=== PATIENT | female | born 1955 | race African-American/Black ===

== ENCOUNTER 2016-06-21 13:58 | Inpatient (IN) | payer BC ==
[~2016-06-21] VITALS: Ht 160 cm; Wt 96.9 kg
[~2016-06-21 13:58] MED LIST: ACET-1175 PO; CHOL1CAP57 PO; INSUINJ4 SQ; IPRA1AER2 INH; LEVE500T PO; LITH300T PO; LSN5 PO; LSX80 PO; MAGN400T6 PO; MCRK20 PO; METO5TAB25 PO; NVLGI SQ
[2016-06-21] MEDS ORDERED: SODIUM CHLORIDE 0.9% 1000ML 1,000 ML IV SCH (14:30)
[2016-06-21 15:13] LABS: ALLEN TEST POS (POS); ARTERIAL BLD GAS O2 SATURATION 91.9 % (90-95); ARTERIAL BLOOD GAS BASE EXCESS 13.4 mEq/L (-9-1.8); ARTERIAL BLOOD GAS HCO3 44 mmol/L (19-24); ARTERIAL BLOOD GAS PO2 71 mmHg (80-95); O2 ADMINISTRATION 2L O2
[2016-06-21] MEDS ORDERED: POLYETHYLENE (MIRALAX) 17 GM PACK PO PRN (15:45)
[2016-06-21] MEDS ORDERED: GLUCOSE 40% GEL 15 GM TUBE PO PRN (15:45)
[2016-06-21] MEDS ORDERED: GLUCOSE 10 TABS/TUBE PO PRN (15:45)
[2016-06-21] MEDS ORDERED: ONDANSETRON INJ 2 MG/ML 2 ML VIAL IV PRN (15:45)
[2016-06-21] MEDS ORDERED: ALUMINUM/MAGNESIUM/SIMETH (MAALOX MAX) 30 ML UDC PO PRN (15:45)
[2016-06-21] MEDS ORDERED: DEXTROSE 50% 50 ML SYR IV PRN (15:45)
[2016-06-21] MEDS ORDERED: GLUCAGON FOR INJ 1 MG VIAL SQ PRN (15:45)
[2016-06-21] MEDS ORDERED: BENZ1CAP90 PO (15:45)
[2016-06-21] MEDS ORDERED: MAGNESIUM HYDROXIDE SUSP 30 ML UDC PO PRN (15:45)
[2016-06-21 15:56] LABS: BASO % 0.2 %; BASO ABS # 0.01 K/uL (0-0.2); COMPLETE YES; EOS % 0.8 %; HEMATOCRIT 42.3 % (37-47); LYMPH % 18.9 %; LYMPH ABS # 1.25 K/uL (1.2-3.4); MEAN CELL VOLUME 90.6 fL (80-100); MEAN CORPUSCULAR HEMOGLOBIN 26.3 pg (25-34); MEAN CORPUSCULAR HGB CONC 29.1 g/dl (32-36); MEAN PLATELET VOLUME 9.9 fL (7.4-10.4); MONO % 8.9 %; NEUT % 71.2 %; PLATELET COUNT 194 K/uL (130-400); RED BLOOD COUNT 4.67 M/uL (4.2-5.4); WHITE BLOOD COUNT 6.62 K/uL (4.8-10.8)
[2016-06-21] MEDS: INSULIN ASPART 100 UNITS/ML 3 ML PEN SC SCH ×2 (16:00→21:00)
[2016-06-21 16:06] LABS: PROTHROMBIN TIME (PATIENT) 11.2 SECONDS (9.0-12.0)
[2016-06-21 16:15] LABS: BUN/CREATININE RATIO 11.3 (10-20); CALCIUM 9.5 mg/dl (8.5-10.1); CREATININE 0.77 mg/dl (0.60-1.20); MAGNESIUM 2.4 mg/dl (1.8-2.4); POTASSIUM 4.7 mmol/L (3.5-5.1)
--- NOTE | 2016-06-21 16:20 | DIAGNOSTIC IMAGING REPORT ---
CHEST ONE VIEW PORTABLE HISTORY: Short of breath. heart failure COMPARISON: Chest 02/05/2016. FINDINGS: The heart remains moderately enlarged. There is interstitial and basilar thickening consistent with mild pulmonary congestion. No pleural effusions. No pneumothorax. IMPRESSION: Similar cardiomegaly and mild pulmonary congestion. Electronically signed by: Alfonso Perez M.D. 06/21/2016 4:17 PM Dictated Date/Time: 06/21/2016 4:16 PM
[2016-06-21 16:25] LABS: ALB/GLOB RATIO 0.7 (0.9-2); THYROID STIMULATING HORMONE 1.08 uIu/ml (0.300-4.500)
--- NOTE | 2016-06-21 17:16 | History and Physical ---
History & Physical Date & Time of Service: Jun 21, 2016 at 16:36 Chief Complaint: Lethargic/Cough/Nasal Congestion Primary Care Physician: Bin Patel M.D. History of Present Illness Source: patient, spouse, clinic records, hospital records, other (Dr. Mills-- java support engineer) This is a 61 y/o female with a history of CHF, respiratory failure, DM II, HTN, seizure disorder, and bipolar disorder who presented for a direct admission on with cough, lethargy, weakness and confusion. At the time of my examination , the patient was coughing and so much mucous secretions that she was not able to converse with me. History obtained largely through her , who was at bedside, as well as Dr. Mills who was briefly at bedside. The patient had been experiencing a cough for the last several weeks. The took her to her PCP who prescribed cough medicine, but the patient did want to take it. The coughing got worse, prompting another visit late last week where the patient finally agreed to take the medicine. The cough started out non-productive but has become productive in the last few days with thick, yellow sputum. In the last few days, the patient began to rapidly decline with weakness, nasal congestion, myalgias, decreased appetite and shaking in her hands, L>R. Last night the patient began to become more confused and lethargic. Her believes that she felt feverish and had chills as well. The patient does use supplemental oxygen at home, 2L NC continuous. She previously had CPAP for nighttime, but she stopped using it a few months ago and now only wears the NC to bed. Her denies any sweats, chest pain, wheezing, shortness of breath, nausea, vomiting, abdominal pain, dysuria, hematuria, paralysis, numbness and tingling. Past Medical/Surgical History Medical Problems: (1) ACUTE RENAL FAILURE NOS Status: Resolved (2) BIPOL I DIS, SING MANIC EPIS, SEVERE, SPEC W PSYCHOTIC BEHAV Status: Chronic (3) CONGESTIVE HEART FAILURE NOS Status: Chronic (4) DIAB ROSA WO COMPL, TYPE II OR UNSPEC TYPE, NOT UNCNTRLD Status: Chronic HTN Seizure disorder Family History FH: HTN (hypertension) FH: diabetes mellitus Heart disease Social History Smoking Status: Never Smoker Smokeless Tobacco Use: No Alcohol Use: none Drug Use: none Marital Status: Housing status: lives with significant other Occupational Status: retired Immunizations History of Influenza Vaccine: Unknown Influenza Vaccine Date: Sep 27, 2009 History of Tetanus Vaccine?: Unknown History of Pneumococcal: No Pneumococcal Date: Jun 28, 2007 History of Hepatitis B Vaccine: Unknown Multi-Drug Resistant 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, MRSA Allergies Coded Allergies: No Known Allergies (Verified , `, 06/21/16) Home Medications Scheduled Benzonatate (Tessalon Perles), 200 MG PO Q8 Cholecalciferol (Vitamin D3), 1,000 INTER.UNIT PO QAM Furosemide (Furosemide), 80 MG PO BID Insulin Aspart (Novolog), 10 UNITS SQ UD Insulin Glargine (Lantus Solostar Pen), 15 UNIT SQ HS Ipratropium-Albuterol (Combivent Respimat), 1 PUFFS INH QID Levetiractam (Levetiracetam), 500 MG PO BID Lisinopril (Lisinopril), 5 MG PO QAM [place] Carbonate (Lithobid Ext Rel), 600 MG PO HS Magnesium Oxide (Mag-Ox), 400 MG PO QAM Metolazone (Zaroxolyn), 5 MG PO DAILY Potassium Chloride (Klor-Con M20), 60 MEQ PO UD Scheduled PRN Acetaminophen (Tylenol), 650 MG PO Q4 PRN for Pain or Fever Review of Systems Constitutional: + chills, + fatigue, + fever (subjective as per ), + problem reported (decreased appetite), + weakness, No sweats Eyes: No diplopia, No eye pain, No worsening of vision ENT: No hearing loss, No sore throat, No trouble swallowing Respiratory: + cough, + sputum (yellow), No shortness of breath, No wheezing Cardiovascular: + PND, + edema, + orthopnea, No chest pain Abdomen: No nausea, No pain, No vomiting Musculoskeletal: + muscle pain, No calf pain, No joint pain Genitourinary - Female: No dysuria, No hematuria, No urinary retention Neurologic: + problem reported (shaking in hands L>R), No numbness/tingling, No paralysis, No weakness Integumentary: No color change, No itch, No rash Physical Exam Vital Signs Date Time Temp Pulse Resp B/P Pulse Ox O2 Delivery O2 Flow Rate FiO2 06/21/16 16:23 37.0 89 21 113/72 96 3.0 06/21/16 14:36 36.7 93 18 126/73 95 Nasal Cannula 3.0 06/21/16 14:09 98 General Appearance: WD/WN, + mild distress (continuously coughing, drooling copious secretions, appears lethargic), + obese Head: normocephalic, atraumatic Eyes: normal inspection, PERRL, + abnormal sclerae exam (bloodshot) ENT: normal ENT inspection, hearing grossly normal, + pertinent finding ( macroglossia, copious secretions) Neck: supple, no JVD, trachea midline Respiratory/Chest: lungs clear, normal breath sounds, no respiratory distress, + decreased breath sounds, + pertinent finding (exam limited as pt would not take deep breaths, loud mouth breathing) Cardiovascular: regular rate, rhythm, no gallop, no murmur Abdomen/GI: normal bowel sounds, non tender, soft, + hernia (umbilical) Extremities/Musculoskelatal: normal inspection, no calf tenderness, + swelling (1+ pitting edema) Neurologic/Psych: alert (awake but appears lethargic), + pertinent finding ( could not assess mood or orientation as pt could not speak during examination; mild tremor in hands) Skin: normal color, warm/dry, no rash Diagnostics Laboratory Results Results Past 24 Hours Test 06/21/16 14:12 06/21/16 14:21 06/21/16 14:50 06/21/16 15:32 Range/Units Arterial Blood pH 7.30 7.35-7.45 Arterial Blood Partial Pressure CO2 91 35-46 mmHg Arterial Blood Partial Pressure O2 71 80-95 mmHg Arterial Blood HCO3 44 19-24 mmol/L Arterial Blood Oxygen Saturation 91.9 90-95 % Arterial Blood Base Excess 13.4 -9-1.8 mEq/L Arterial Blood Gas Delivery 2L O2 [place] Test POS POS White Blood Count 6.62 4.8-10.8 K/uL Red Blood Count 4.67 4.2-5.4 M/uL Hemoglobin 12.3 12.0-16.0 g/dL Hematocrit 42.3 37-47 % Mean Corpuscular Volume 90.6 80-100 fL Mean Corpuscular Hemoglobin 26.3 25-34 pg Mean Corpuscular Hemoglobin Concent 29.1 32-36 g/dl Platelet Count 194 130-400 K/uL Mean Platelet Volume 9.9 7.4-10.4 fL Neutrophils (%) (Auto) 71.2 % Lymphocytes (%) (Auto) 18.9 % Monocytes (%) (Auto) 8.9 % Eosinophils (%) (Auto) 0.8 % Basophils (%) (Auto) 0.2 % Neutrophils # (Auto) 4.72 1.4-6.5 K/uL Lymphocytes # (Auto) 1.25 1.2-3.4 K/uL Monocytes # (Auto) 0.59 0.11-0.59 K/uL Eosinophils # (Auto) 0.05 0-0.5 K/uL Basophils # (Auto) 0.01 0-0.2 K/uL RDW Standard Deviation 55.6 36.4-46.3 fL RDW Coefficient of Variation 16.8 11.5-14.5 % Immature Granulocyte % (Auto) 0.0 % Immature Granulocyte # (Auto) 0.00 0.00-0.02 K/uL Prothrombin Time 11.2 9.0-12.0 SECONDS Prothromb Time International Ratio 1.0 0.9-1.1 Activated Partial Thromboplast Time 27.2 21.0-31.0 SECONDS Partial Thromboplastin Ratio 1.0 Sodium Level 133 136-145 mmol/L Potassium Level 4.7 3.5-5.1 mmol/L Chloride Level 89 98-107 mmol/L Carbon Dioxide Level 39 21-32 mmol/L Anion Gap 5.0 3-11 mmol/L Blood Urea Nitrogen 9 7-18 mg/dl Creatinine 0.77 0.60-1.20 mg/dl Est Creatinine Clear Calc Drug Dose 86.3 ml/min Estimated GFR () 96.6 Estimated GFR (Non- 83.3 BUN/Creatinine Ratio 11.3 10-20 Random Glucose 141 70-99 mg/dl Calcium Level 9.5 8.5-10.1 mg/dl Magnesium Level 2.4 1.8-2.4 mg/dl Total Bilirubin 0.5 0.2-1 mg/dl Aspartate Amino Transf (AST/SGOT) 45 15-37 U/L Alanine Aminotransferase (ALT/SGPT) 27 12-78 U/L Alkaline Phosphatase 119 45-117 U/L Troponin I 0.030 0-0.045 ng/ml Total Protein 7.8 6.4-8.2 gm/dl Albumin 3.3 3.4-5.0 gm/dl Globulin 4.5 2.5-4.0 gm/dl Albumin/Globulin Ratio 0.7 0.9-2 Thyroid Stimulating Hormone (TSH) 1.080 0.300-4.500 uIu/ml [place] Level 0.9 0.6-1.2 mMOL/L Microbiology Results 06/21/16 Blood Culture, Received Pending 06/21/16 Blood Culture, Received Pending Diagnostic Radiology Reviewed the following studies and agree with interpretation as follows: Patient Name: CHARITY BARRIOS Unit Number: [id number] Dictated: 06/21/161615 Transcribed: 06/21/161615 [facility] Printed Date/Time: [~ rep prt dt]/[~ rep prt tm] [~ rep ct labl] - [~ rep ct ivnm] [facility] Radiology Department [place] [id number] Dictated: 06/21/161615 Transcribed: 06/21/161615 [facility] Printed Date/Time: [~ rep prt dt]/[~ rep prt tm] [~ rep ct labl] - [~ rep ct ivnm] Patient: CHARITY BARRIOS Address1: [address] [place] [address] Rec: [id number] Address2: [place] [address] Acct ID: [id number] [facility] Zip: [place] [address] Date: 1955 Sex: F Room/Bed: Ref Phy: Bin Patel M.D. SC: MINAL Mendoza Phy: Report #: [id number] [place] Phy: Bin Patel M.D. Test: CXR1P Admit Phy: Wind Turbine Mechanical Engineer: FABIOLA Interpreting Phy: Alfonso Perez MD Diagnosis: LETHARGIC/COUGH/NASAL CONGESTION Ordering Phy: Ilan Mills DO Service Date: 06/21/16 Admit Date: 06/21/16 MNE: [id number] CONF: DICTATED BY: Alfonso Perez M.D.]] CC: Bin Patel M.D. Lesko, Michael G., DO No Doctor, Assigned Endcc: [~ rep ct add3]] CHEST ONE VIEW PORTABLE HISTORY: Short of breath. heart failure COMPARISON: Chest 02/05/2016. FINDINGS: The heart remains moderately enlarged. There is interstitial and basilar thickening consistent with mild pulmonary congestion. No pleural effusions. No pneumothorax. IMPRESSION: Similar cardiomegaly and mild pulmonary congestion. Electronically signed by: Alfonso Perez M.D. 06/21/2016 4:17 PM Dictated Date/Time: 06/21/2016 4:16 PM The status of this report is Signed. Draft = Not yet reviewed or approved by Radiologist. Signed = Reviewed and approved by Radiologist. <AttendingPhy></AttendingPhy> <FamilyPhy>Bin Patel M.D.</FamilyPhy> < PrimaryPhy>Bin Patel M.D.</PrimaryPhy> <UnitNumber>[id number]</ UnitNumber> <VisitNumber>[id number]</VisitNumber> <PatientName>CHARITY BARRIOS </PatientName> <DateOfBirth>1955</DateOfBirth> <Location>[facility]</Location> <ServiceDate>06/21/16</ServiceDate> <MNE>ESINDI</MNE> <OrderingPhy>Ilan Mills DO</OrderingPhy> <OrderingPhyMNE>f rep ord dr edward</OrderingPhyMNE> < DictatingPhyMNE>f rep dict dr edward</DictatingPhyMNE> <CCListMNE>f rep ct mne</ CCListMNE> <AdmittingPhyMNE>f pt admit dr edward</AdmittingPhyMNE> <AttendingPhyMNE >f pt attend dr edward</AttendingPhyMNE> <ConsultingPhyMNE>f pt consult dr edward</ConsultingPhyMNE> <FamilyPhyMNE>f pt fam dr edward</FamilyPhyMNE> <OtherPhyMNE>f pt other dr edward</OtherPhyMNE> < PrimaryPhyMNE>f pt prim care dr edward</PrimaryPhyMNE> <ReferringPhyMNE>f pt referring dr edward</ReferringPhyMNE> Impression Assessment and Plan 61 y/o female with a history of CHF, respiratory failure, DM II, HTN, seizure disorder, and bipolar disorder who presented for a direct admission on 06/21 with cough, lethargy, weakness and confusion. Cough for several weeks, productive with yellow sputum in last few days, myalgias. No shortness of breath. On 2L NC oxygen at home continuous. CXR mild pulmonary edema. ABG pH 7.3, pCO2 91, pO2 71, HCO3 44. -Admit to telemetry -Rapid flu -Lactic acid -Blood cultures pending -Check sputum culture -Rocephin 1 gm IV qd -Mucinex 600 mg PO BID -Incentive spirometry -Duonebs QIDR and q2h prn SOB/wheezing -CPAP ordered -Check BNP -EKG pending, repeat prn with chest pain Respiratory acidosis--pt has history of chronic respiratory failure with hypercapnia -Low threshold to switch to BIPAP, pt currently stable on NC -CPAP as above for nighttime CHF -Hold home PO Lasix -Lasix 60 mg IV BID -Continue metolazone 5 mg PO BID -Continue KCl supplements Diabetes mellitus type 2--Last HgbA1c 9.1 on 08/25/15 -Lantus 10 units SC qhs due to decreased appetite -Insulin sliding scale -Check BSGs q ac and qhs -Recheck HgbA1c in the am HTN--stable -Continue lisinopril 5 mg PO qd Seizure disorder -Continue Keppra 500 mg PO BID Bipolar disorder -Continue lithium 600 mg PO qhs GI prophylaxis -Maalox Max 15 mL PO q4h prn dyspepsia -Milk of magnesia 30 mL PO q6h prn constipation -Miralax 17 gm PO qd prn constipation -Zofran 4 mg IV q6h prn nausea DVT prophylaxis -Enoxaparin 40 mg SC q24h -JAYDON smith and ANAHIs Code Status -Level I, FULL RESUSCITATION STATUS I agree with PA assessment and plan and have personally seen and examined pt myself Agree with ROS, PE findings Pt reports with persistent productive cough ABG with elev CO2 Lungs Dec BS bilateral, scattered wheezes and rhonchi Cont antibx at this time, duonebs CXR mild congestion Agree with IV lasix Level of Care Telemetry Resuscitation Status FULL RESUSCITATION VTE Prophylaxis VTE Risk Assessment Done? Y/N: Yes Risk Level: Moderate Given or contraindicated: Enoxaparin (Lovenox)SQ, T.E.D. Stockings, SCD's
--- NOTE | 2016-06-21 17:32 | CARDIOLOGY CONSULTATION ---
DATE OF CONSULTATION: 06/21/2016 This is a consultation for the [facility] Hospitalist. REASON FOR CONSULTATION: Cor pulmonale. HISTORY OF PRESENT ILLNESS: The patient is a 61-year-old female who is well known to our service as well as the hospitalist service with multiple previous hospital admissions. She has a schizoaffective disorder and has been admitted multiple times due to mental status changes from hyponatremia to polydipsia and volume overload. I follow her through my clinic with a history of idiopathic pulmonary hypertension and cor pulmonale. She is also a diabetic. I last saw her in April when she was doing very well. According to her who is with her today, over the holiday she had become progressively lethargic and not doing well. She was seen by her primary care physician approximately 10 days ago who evaluated her and had no particular findings to treat. She continued to have mental status changes and was seen a few days ago once again with no clear etiology. She was brought to the hospital by her with ongoing mental status changes and lethargy. He stays she will not get out of bed. She has had no fever or chills. She does appear to be volume overloaded with puffiness around her eyes and face. In the past, compliance with medications has been a problem. She is also to be on CPAP at night and may not have been compliant. In the past, She has been hypercapnic. ALLERGIES: No known medical allergies. PAST MEDICAL HISTORY: The patient has schizoaffective disorder. As outlined above, the patient has a history of idiopathic pulmonary hypertension with right-sided heart failure which results in massive volume overload. She has also had a history of polydipsia, which does not help this problem. She has had a history of hyponatremia with mental status changes. She is a diabetic and has a history of schizoaffective disorder. At times, she will stop or alter her medications which can cause hyperglycemia and mental status changes. SOCIAL HISTORY: She lives with her and family who are very supportive. She does not smoke. FAMILY MEDICAL HISTORY: Noncontributory. REVIEW OF SYSTEMS: A 10-point review of systems is negative except for the history of chief complaint. PHYSICAL EXAMINATION: GENERAL: She is alert and oriented to person. VITAL SIGNS: The patient is currently afebrile, blood pressure is 120/70, and pulse is regular at 93 beats per minute. HEENT: The patient has puffiness around her eyes. Mucous membranes are moist. NECK: The neck veins are flat. Carotids have good upstrokes bilaterally. Thyroid is nonpalpable. RESPIRATORY: Breath sounds are equal bilaterally. CARDIOVASCULAR: Heart has a regular rhythm. There is no S3 or S4. She is in a sinus rhythm on the telemetry. GASTROINTESTINAL: Abdomen soft, nontender, without organomegaly. EXTREMITIES: Free of edema, digit clubbing, or cyanosis. NEUROLOGIC: Grossly intact. SKIN: Warm to touch. LYMPH NODES: Negative to palpation. LABORATORY DATA: Pending. IMPRESSION: 1. Mental status changes. 2. Schizoaffective disorder. 3. History of hyponatremia due to polydipsia. 4. At times, medical noncompliance. 5. History of idiopathic pulmonary hypertension with right heart failure. 6. Diabetes mellitus. 7. History of Hypercapnia RECOMMENDATIONS: The patient will obviously need to be admitted to the hospital. From a cardiac standpoint, she is hemodynamically stable. Labs are pending and hopefully will be helpful in making a diagnosis. We will follow along with you during her hospital stay. SAIRA
[2016-06-21 18:15] VITALS: BP 131/82; PULSE 108; TEMP 37.4; O2SAT 97; Ht 160 cm; Wt 96.9 kg
[2016-06-21] MEDS: ALBUT/IPRATROP 3MG/0.5MG NEB 3 ML VIAL INH SCH (19:32)
[2016-06-21 19:37] VITALS: PULSE 99; O2SAT 94
[2016-06-21] MEDS: CEFTRIAXONE SOD INJ 1 GM in DEXTROSE 5% ADD-VANTAGE 50ML 50 ML IV SCH (19:40)
[2016-06-21] MEDS: ENOXAPARIN 40 MG/0.4 ML SYR SC SCH (19:40)
[2016-06-21 20:18] LABS: INFLUENZA A PCR Neg for Influ A (NEG); INFLUENZA B PCR Neg for Influ B (NEG)
[2016-06-21] MEDS ORDERED: LEVETIRACETAM 500 MG TAB PO SCH (21:00)
[2016-06-21] MEDS ORDERED: FUROSEMIDE 80 MG TAB PO SCH (21:00)
[2016-06-21] MEDS ORDERED: INSULIN GLARGINE SOLOSTAR 100 UNITS/ML 3 ML PEN SC SCH (21:00)
[2016-06-21] MEDS: FUROSEMIDE INJ 60 MG in SYRINGE 0 ML IV SCH (21:43)
[2016-06-21] MEDS: POTASSIUM CHLORIDE 20 MEQ TABCR PO SCH (21:44)
[2016-06-21] MEDS: LITHIUM CARBONATE SR 300 MG TAB (LITHOBID) PO SCH (21:45)
[2016-06-21] MEDS: GUAIFENESIN 600 MG TABCR PO SCH (21:45)
[2016-06-21 22:22] LABS: URINE APPEARANCE CLEAR (CLEAR); URINE BILIRUBIN NEG (NEG); URINE COLOR DK YELLOW; URINE EPITHELIAL CELL AUTO >30 /lpf (0-5); URINE NITRITE NEG (NEG); URINE SPECIFIC GRAVITY 1.018 (1.000-1.030); UROBILINOGEN NEG (NEG)
[2016-06-21 22:23] LABS: MANUAL MICROSCOPIC REQUIRED? NO; REVIEW REQ? NO
[2016-06-21 22:42] LABS: BENZODIAZEPINE, URINE NEG (NEG); COCAINE,URINE NEG (NEG); PHENCYCLIDINE, URINE NEG (NEG)
[2016-06-22] VITALS (13 sets, daily range): BP systolic 104–122; BP diastolic 65–74; PULSE 90–107; TEMP 37–38.5; O2SAT 85–98
[2016-06-22] MEDS: INSULIN ASPART 100 UNITS/ML 3 ML PEN SC SCH ×4 (07:00→21:13)
[2016-06-22] MEDS: ALBUT/IPRATROP 3MG/0.5MG NEB 3 ML VIAL INH SCH ×4 (07:03→19:10)
[2016-06-22 07:32] LABS: HEMATOCRIT 41.1 % (37-47); MEAN CELL VOLUME 92.6 fL (80-100); MEAN CORPUSCULAR HEMOGLOBIN 26.6 pg (25-34); MEAN CORPUSCULAR HGB CONC 28.7 g/dl (32-36); MEAN PLATELET VOLUME 10.4 fL (7.4-10.4); PLATELET COUNT 198 K/uL (130-400); RED BLOOD COUNT 4.44 M/uL (4.2-5.4); WHITE BLOOD COUNT 5.95 K/uL (4.8-10.8)
[2016-06-22] MEDS: FUROSEMIDE INJ 60 MG in SYRINGE 0 ML IV SCH ×2 (07:45→17:00)
[2016-06-22 07:56] LABS: BUN/CREATININE RATIO 14.9 (10-20); CALCIUM 9.6 mg/dl (8.5-10.1); CREATININE 0.81 mg/dl (0.60-1.20); POTASSIUM 3.9 mmol/L (3.5-5.1)
[2016-06-22] MEDS: GUAIFENESIN 600 MG TABCR PO SCH ×2 (08:35→21:00)
[2016-06-22] MEDS: METOLAZONE 5 MG TAB PO SCH (08:35)
[2016-06-22] MEDS: MAGNESIUM OXIDE 400 MG TAB PO SCH (08:35)
[2016-06-22] MEDS: LISINOPRIL 5 MG TAB PO SCH (08:35)
[2016-06-22] MEDS: POTASSIUM CHLORIDE 20 MEQ TABCR PO SCH ×2 (08:36→21:00)
[2016-06-22 09:08] LABS: ESTIMATED AVERAGE GLUCOSE 174 mg/dl; HA1C FLAG Normal (Normal)
[2016-06-22 09:15] LABS: ARTERIAL BLD GAS O2 SATURATION 95.5 % (90-95); ARTERIAL BLOOD GAS BASE EXCESS 15.2 mEq/L (-9-1.8); ARTERIAL BLOOD GAS HCO3 46 mmol/L (19-24); ARTERIAL BLOOD GAS PO2 93 mm/Hg (80-95); ARTERIAL BLOOD GAS pH 7.29 (7.35-7.45)
[2016-06-22 09:19] LABS: ALLEN TEST POS (POS); O2 ADMINISTRATION 6L
[2016-06-22] MEDS: LEVETIRACETAM IV 500 MG in DEXTROSE 5% 100ML 100 ML IV SCH ×2 (09:35→21:10)
--- NOTE | 2016-06-22 11:49 | Progress Note ---
Subjective Subjective Date of Service: Jun 22, 2016. Pt evaluation today including: conversation w/ patient, conversation w/ family ( at bedside), physical exam, chart review, review of studies, review of inpatient medication list Notes: RN reported that patient is lethargic this am, ROS cant be obtained Problem List Medical Problems: (1) Change in mental status Status: Acute (2) CHF (congestive heart failure) Status: Acute (3) CHF (congestive heart failure) Status: Acute (4) CO2 retention Status: Acute (5) Fall Status: Acute (6) Hyperglycemia Status: Acute (7) Hypokalemia Status: Acute (8) Hyponatremia Status: Acute (9) Hyponatremia Status: Acute (10) Hyponatremia Status: Acute (11) SOB (shortness of breath) Status: Acute (12) Weakness Status: Acute Physical Exam Vital Signs Vital Signs Past 24 Hours: Date Time Temp Pulse Resp B/P Pulse Ox O2 Delivery O2 Flow Rate FiO2 06/22/16 11:14 101 95 6.0 06/22/16 11:09 101 20 95 BiPAP/CPAP 6.0 06/22/16 08:40 98 97 6.0 06/22/16 07:40 37.4 107 22 104/65 96 Nasal Cannula 6.0 06/22/16 07:03 102 24 85 Nasal Cannula 4.0 06/22/16 04:00 Nasal Cannula 4.0 06/22/16 00:00 38.5 102 18 120/72 96 Nasal Cannula 4.0 06/22/16 00:00 Nasal Cannula 4.0 06/21/16 20:00 Nasal Cannula 4.0 06/21/16 19:37 99 20 94 Nasal Cannula 4.5 06/21/16 18:15 37.4 108 24 131/82 97 Nasal Cannula 4.0 06/21/16 17:43 100 130/68 97 06/21/16 16:23 37.0 89 21 113/72 96 3.0 06/21/16 14:36 36.7 93 18 126/73 95 Nasal Cannula 3.0 06/21/16 14:09 98 Physical Exam: General Appearance: WD/WN, no apparent distress Eyes: bilateral eyes normal inspection ENT: pharynx normal Neck: no adenopathy Respiratory/Chest: + decreased breath sounds Cardiovascular: regular rate, rhythm Abdomen: normal bowel sounds Extremities: non-tender 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: + disoriented Skin: warm/dry Medications Medications: Current Inpatient Medications Medications (Trade) Dose Ordered Sig/Nanette Route Start Time Stop Time Status Last Admin Dose Admin Enoxaparin Sodium (Lovenox Inj) 40 mg Q24H SC 06/21/16 18:00 07/21/16 17:59 06/21/16 19:40 40 MG Acetaminophen (Tylenol Tab) 650 mg Q4H PRN PO 06/21/16 15:45 07/21/16 15:44 Al Hydrox/Mg Hydrox/Simethicone (Maalox Max Susp) 15 ml Q4H PRN PO 06/21/16 15:45 07/21/16 15:44 Magnesium Hydroxide (Milk Of Magnesia Susp) 30 ml Q12H PRN PO 06/21/16 15:45 07/21/16 15:44 Ondansetron HCl (Zofran Inj) 4 mg Q6H PRN IV 06/21/16 15:45 07/21/16 15:44 Polyethylene (Miralax Powder Packet) 17 gm DAILY PRN PO 06/21/16 15:45 07/21/16 15:44 Insulin Glargine (Lantus Solostar Pen) 10 unit HS SC 06/21/16 21:00 07/21/16 20:59 06/21/16 22:22 10 UNIT Glucose (Glucose 40% Gel) 15-30 GRAMS 15 GRAMS... UD PRN PO 06/21/16 15:45 07/21/16 15:44 Glucose (Glucose Chew Tab) 4-8 Tablets 4 Tabl... UD PRN PO 06/21/16 15:45 07/21/16 15:44 Dextrose (Dextrose 50% 50ML Syringe) 25-50ML OF 50% DW IV FOR... UD PRN IV 06/21/16 15:45 07/21/16 15:44 Glucagon 1 mg 1 mg UD PRN SQ 06/21/16 15:45 07/21/16 15:44 Ceftriaxone Sodium/Dextrose (Rocephin Inj/ Dextrose Add-[place] 50ML) 50 ml @ 100 mls/hr Q24H IV 06/21/16 18:00 06/28/16 17:59 06/21/16 19:40 100 MLS/HR Albuterol/ Ipratropium (Duoneb) 3 ml QIDR INH 06/21/16 16:00 07/21/16 15:59 06/22/16 11:09 3 ML Insulin Aspart (novoLOG ASPART) SLIDING SCALE G... ACHS SC 06/21/16 16:00 07/21/16 15:59 Levetiracetam (Keppra Tab) 500 mg BID PO 06/21/16 21:00 07/21/16 20:59 Future Hold 06/21/16 21:45 500 MG Lisinopril (Zestril Tab) 5 mg QAM PO 06/22/16 09:00 07/22/16 08:59 [place] Carbonate (Lithobid Tab) 600 mg HS PO 06/21/16 21:00 07/21/16 20:59 06/21/16 21:45 600 MG Magnesium Oxide (Mag-Ox Tab) 400 mg QAM PO 06/22/16 09:00 07/22/16 08:59 Metolazone (Zaroxolyn Tab) 5 mg DAILY PO 06/22/16 09:00 07/22/16 08:59 Potassium Chloride (Klor-Con Tab) 60 meq QAM PO 06/22/16 09:00 07/22/16 08:59 Guaifenesin 600 mg 600 mg Q12 PO 06/21/16 21:00 07/21/16 20:59 06/21/16 21:45 600 MG Furosemide/Syringe (Lasix Inj/ Syringe) 6 ml @ 4 mls/min BID17 IV 06/21/16 21:00 07/21/16 20:59 06/22/16 07:45 4 MLS/MIN Potassium Chloride 40 meq 40 meq PM PO 06/21/16 21:00 07/21/16 20:59 06/21/16 21:44 40 MEQ Levetiracetam/ Dextrose (Keppra Iv/D5 100ml) 105 ml @ 420 mls/hr Q12 IV 06/22/16 09:00 07/22/16 08:59 Laboratory Data Labs: Last 24 Hours Test 06/21/16 14:50 06/21/16 15:32 06/21/16 15:57 06/21/16 16:50 Arterial Blood pH 7.30 Arterial Blood Partial Pressure CO2 91 mmHg Arterial Blood Partial Pressure O2 71 mmHg Arterial Blood HCO3 44 mmol/L Arterial Blood Oxygen Saturation 91.9 % Arterial Blood Base Excess 13.4 mEq/L Arterial Blood Gas Delivery 2L O2 [place] Test POS White Blood Count 6.62 K/uL Red Blood Count 4.67 M/uL Hemoglobin 12.3 g/dL Hematocrit 42.3 % Mean Corpuscular Volume 90.6 fL Mean Corpuscular Hemoglobin 26.3 pg Mean Corpuscular Hemoglobin Concent 29.1 g/dl Platelet Count 194 K/uL Mean Platelet Volume 9.9 fL Neutrophils (%) (Auto) 71.2 % Lymphocytes (%) (Auto) 18.9 % Monocytes (%) (Auto) 8.9 % Eosinophils (%) (Auto) 0.8 % Basophils (%) (Auto) 0.2 % Neutrophils # (Auto) 4.72 K/uL Lymphocytes # (Auto) 1.25 K/uL Monocytes # (Auto) 0.59 K/uL Eosinophils # (Auto) 0.05 K/uL Basophils # (Auto) 0.01 K/uL RDW Standard Deviation 55.6 fL RDW Coefficient of Variation 16.8 % Immature Granulocyte % (Auto) 0.0 % Immature Granulocyte # (Auto) 0.00 K/uL Prothrombin Time 11.2 SECONDS Prothromb Time International Ratio 1.0 Activated Partial Thromboplast Time 27.2 SECONDS Partial Thromboplastin Ratio 1.0 Sodium Level 133 mmol/L Potassium Level 4.7 mmol/L Chloride Level 89 mmol/L Carbon Dioxide Level 39 mmol/L Anion Gap 5.0 mmol/L Blood Urea Nitrogen 9 mg/dl Creatinine 0.77 mg/dl Est Creatinine Clear Calc Drug Dose 86.3 ml/min Estimated GFR () 96.6 Estimated GFR (Non- 83.3 BUN/Creatinine Ratio 11.3 Random Glucose 141 mg/dl Calcium Level 9.5 mg/dl Magnesium Level 2.4 mg/dl Total Bilirubin 0.5 mg/dl Aspartate Amino Transf (AST/SGOT) 45 U/L Alanine Aminotransferase (ALT/SGPT) 27 U/L Alkaline Phosphatase 119 U/L Troponin I 0.030 ng/ml Pro-B-Type Natriuretic Peptide 868 pg/ml Total Protein 7.8 gm/dl Albumin 3.3 gm/dl Globulin 4.5 gm/dl Albumin/Globulin Ratio 0.7 Thyroid Stimulating Hormone (TSH) 1.080 uIu/ml [place] Level 0.9 mMOL/L Bedside Troponin I 0.010 ng/ml Lactic Acid Level 1.3 mmol/L Test 06/21/16 18:25 06/21/16 20:24 06/21/16 22:00 06/22/16 06:24 Influenza Type A (RT-PCR) Neg for Influ A Influenza Type B (RT-PCR) Neg for Influ B Bedside Glucose 142 mg/dl Urine Color DK YELLOW Urine Appearance CLEAR Urine pH 7.0 Urine Specific Webb 1.018 Urine Protein 2+ Urine Glucose (UA) NEG Urine Ketones NEG Urine Occult Blood NEG Urine Nitrite NEG Urine Bilirubin NEG Urine Urobilinogen NEG Urine Leukocyte Esterase NEG Urine WBC (Auto) 1-5 /hpf Urine RBC (Auto) 5-10 /hpf Urine Hyaline Casts (Auto) 5-10 /lpf Urine Epithelial Cells (Auto) >30 /lpf Urine Bacteria (Auto) NEG Urine Opiates Screen NEG Urine Methadone, Qualitative NEG Urine Barbiturates NEG Urine Phencyclidine (PCP) Level NEG Ur Amphetamine/Methamphetamine NEG MDMA (Ecstasy) Screen NEG Urine Benzodiazepines Screen NEG Urine Cocaine Metabolite NEG Urine Marijuana (THC) NEG White Blood Count 5.95 K/uL Red Blood Count 4.44 M/uL Hemoglobin 11.8 g/dL Hematocrit 41.1 % Mean Corpuscular Volume 92.6 fL Mean Corpuscular Hemoglobin 26.6 pg Mean Corpuscular Hemoglobin Concent 28.7 g/dl RDW Standard Deviation 57.9 fL RDW Coefficient of Variation 16.9 % Platelet Count 198 K/uL Mean Platelet Volume 10.4 fL Sodium Level 135 mmol/L Potassium Level 3.9 mmol/L Chloride Level 87 mmol/L Carbon Dioxide Level 39 mmol/L Anion Gap 9.0 mmol/L Blood Urea Nitrogen 12 mg/dl Creatinine 0.81 mg/dl Est Creatinine Clear Calc Drug Dose 81.6 ml/min Estimated GFR () 90.9 Estimated GFR (Non- 78.4 BUN/Creatinine Ratio 14.9 Random Glucose 138 mg/dl Estimated Average Glucose 174 mg/dl Hemoglobin A1c 7.7 % Calcium Level 9.6 mg/dl Test 06/22/16 07:13 06/22/16 09:00 06/22/16 11:31 Bedside Glucose 140 mg/dl 168 mg/dl Arterial Blood pH 7.29 Arterial Blood Partial Pressure CO2 97 mmHg Arterial Blood Partial Pressure O2 93 mm/Hg Arterial Blood HCO3 46 mmol/L Arterial Blood Oxygen Saturation 95.5 % Arterial Blood Base Excess 15.2 mEq/L Arterial Blood Gas Delivery 6L [place] Test POS Assessment and Plan 61 y/o female with a history of CHF, respiratory failure, DM II, HTN, seizure disorder, and bipolar disorder who presented for a direct admission on 06/21 with cough, lethargy, weakness and confusion. Cough for several weeks, productive with yellow sputum in last few days, myalgias. No shortness of breath. On 2L [place] oxygen at home continuous. CXR mild pulmonary edema. ABG on admisson: pH 7.3, pCO2 91, pO2 71, HCO3 44. 1. Acute hypercarbic respiratory failure on top of chronic respiratory failure sec to COPD, pulmonary edema cont telemetry start BIPAP and repeat ABG flu is negative Lactic acid nl Blood cultures pending cont Rocephin 1 gm IV qd cont Mucinex 600 mg PO BID cont Incentive spirometry Duonebs QIDR and q2h prn SOB/wheezing CPAP for nighttime start IV steroids Chronic stable CHF Lasix 60 mg IV BID Continue metolazone 5 mg PO BID Continue KCl supplements Diabetes mellitus type 2--Last HgbA1c 7.7 cont Lantus 10 units SC qhs due to decreased appetite Insulin sliding scale Check BSGs q ac and qhs HTN--stable Continue lisinopril 5 mg PO qd Seizure disorder Continue Keppra 500 mg IV BID Bipolar disorder Continue lithium 600 mg PO qhs DVT prophylaxis Enoxaparin 40 mg SC q24h JAYDON smith and ANAHIs Code Status FULL
--- NOTE | 2016-06-22 12:08 | PROGRESS NOTE ---
DATE: 06/22/2016 FOLLOWUP VISIT SUBJECTIVE: The patient is a 61-year-old female with schizoaffective disorder and cor pulmonale due to pulmonary hypertension. She is hypercapnic and is now on BIPAP to try to reduce her CO2 level in her blood. She remains lethargic, but is responsive to name. OBJECTIVE: VITAL SIGNS: Blood pressure 105/70. Pulse is regular at 100 beats per minute. She is afebrile. I\T\O is negative 1500 mL since last night. Her weight is down from 103.4 kilograms to 98.6 kilograms this morning. GENERAL: She is arousable. HEENT: She is normocephalic. She has a BIPAP mask on. NECK: The neck veins are flat. Carotids have good upstrokes bilaterally without bruits. Thyroid is nonpalpable. RESPIRATORY: Breath sounds are equal bilaterally and clear to auscultation. CARDIOVASCULAR: Heart has a regular rhythm. There is a intermittent S3. No cardiac murmurs. GASTROINTESTINAL: Abdomen is soft and nontender without organomegaly. EXTREMITIES: Have minimal edema around the calves. NEUROLOGIC: Grossly intact. LABORATORY DATA: ABG, pCO2 was 97, pH is 7.29, and oxygen is 93. IMPRESSION: 1. Hypercapnia. 2. Idiopathic pulmonary hypertension. 3. Cor pulmonale. 4. Schizoaffective disorder. RECOMMENDATIONS: As mentioned above, the patient was placed on BiPAP this morning. Hopefully, her CO2 retention will improve. She is diuresing and has lost several kilograms since last night. We will have to wait and see how she does with the BiPAP.
[2016-06-22] MEDS: METHYLPREDNISOLONE IV 40 MG in SYRINGE 0 ML IV SCH ×2 (13:08→21:10)
[2016-06-22] MEDS: INSULIN GLARGINE SOLOSTAR 100 UNITS/ML 3 ML PEN SC SCH ×2 (13:30→21:13)
[2016-06-22 13:36] LABS: ARTERIAL BLD GAS O2 SATURATION 97.3 % (90-95); ARTERIAL BLOOD GAS BASE EXCESS 16.4 mEq/L (-9-1.8); ARTERIAL BLOOD GAS HCO3 46 mmol/L (19-24); ARTERIAL BLOOD GAS PO2 111 mm/Hg (80-95); ARTERIAL BLOOD GAS pH 7.34 (7.35-7.45)
[2016-06-22 13:38] LABS: ALLEN TEST POS (POS); O2 ADMINISTRATION 6L
[2016-06-22] MEDS: ENOXAPARIN 40 MG/0.4 ML SYR SC SCH (18:17)
[2016-06-22] MEDS: CEFTRIAXONE SOD INJ 1 GM in DEXTROSE 5% ADD-VANTAGE 50ML 50 ML IV SCH (18:17)
[2016-06-22] MEDS: LITHIUM CARBONATE SR 300 MG TAB (LITHOBID) PO SCH (21:00)
[2016-06-23] VITALS (15 sets, daily range): BP systolic 109–127; BP diastolic 68–82; PULSE 86–106; TEMP 36.6–37.2; O2SAT 88–99
[2016-06-23] MEDS: METHYLPREDNISOLONE IV 40 MG in SYRINGE 0 ML IV SCH (05:23)
[2016-06-23] MEDS: ALBUT/IPRATROP 3MG/0.5MG NEB 3 ML VIAL INH SCH ×5 (07:13→20:20)
[2016-06-23 08:54] LABS: HEMATOCRIT 42.5 % (37-47); MEAN CELL VOLUME 92.4 fL (80-100); MEAN CORPUSCULAR HGB CONC 29.2 g/dl (32-36); PLATELET COUNT 167 K/uL (130-400); WHITE BLOOD COUNT 5.87 K/uL (4.8-10.8)
--- NOTE | 2016-06-23 09:04 | DIAGNOSTIC IMAGING REPORT ---
CHEST ONE VIEW PORTABLE CLINICAL HISTORY: Shortness of breath COMPARISON STUDY: 06/21/2016 FINDINGS: The heart is enlarged. There are suspected pulmonary venous hypertension. There is no lobar consolidation. No pleural effusions are visualized. Increased markings within the left midlung zone and right lung base are likely atelectatic.[ IMPRESSION: Cardiomegaly and pulmonary venous hypertension. Bibasal airspace opacities likely atelectatic.. Electronically signed by: Neir Spicer M.D. 06/23/2016 9:02 AM Dictated Date/Time: 06/23/2016 9:01 AM
[2016-06-23] MEDS: LEVETIRACETAM IV 500 MG in DEXTROSE 5% 100ML 100 ML IV SCH ×2 (09:20→21:10)
[2016-06-23] MEDS: FUROSEMIDE INJ 60 MG in SYRINGE 0 ML IV SCH (09:20)
[2016-06-23] MEDS: MAGNESIUM OXIDE 400 MG TAB PO SCH (09:21)
[2016-06-23] MEDS: LISINOPRIL 5 MG TAB PO SCH (09:21)
[2016-06-23] MEDS: METOLAZONE 5 MG TAB PO SCH (09:21)
[2016-06-23] MEDS: POTASSIUM CHLORIDE 20 MEQ TABCR PO SCH ×2 (09:22→21:12)
[2016-06-23 09:29] LABS: BUN/CREATININE RATIO 27.7 (10-20); CALCIUM 9.8 mg/dl (8.5-10.1); CREATININE 0.87 mg/dl (0.60-1.20); POTASSIUM 3.9 mmol/L (3.5-5.1)
[2016-06-23] MEDS: GUAIFENESIN 600 MG TABCR PO SCH ×2 (09:36→21:12)
[2016-06-23] MEDS: INSULIN ASPART 100 UNITS/ML 3 ML PEN SC SCH ×4 (09:41→21:00)
[2016-06-23] MEDS: INSULIN GLARGINE SOLOSTAR 100 UNITS/ML 3 ML PEN SC SCH ×2 (09:42→21:16)
--- NOTE | 2016-06-23 10:49 | PROGRESS NOTE ---
DATE: 06/23/2016 FOLLOWUP VISIT SUBJECTIVE: The patient is a 61-year-old female with a history of schizoaffective disorder, idiopathic pulmonary hypertension, cor pulmonale, and sleep apnea. I am uncertain as to whether the sleep apnea is from central cause or an obstructive cause. She does have nasal CPAP at home, but her indicates she may not be consistent. She presented with mental status changes, having lethargy and somnolence. She was placed on BiPAP yesterday morning. This morning, the BiPAP was removed and she is alert and very thin and talkative. OBJECTIVE: GENERAL: She is alert and oriented to person and place. VITAL SIGNS: Blood pressure is 110/70. Pulse is regular at 90. She is afebrile. HEENT: She is normocephalic. Pupils are equal and reactive to light. Extraocular muscles are intact bilaterally. NECK: The neck veins are flat. Carotids have good upstrokes bilaterally without bruits. Thyroid is nonpalpable. RESPIRATORY: Breath sounds equal bilaterally and clear to auscultation. CARDIOVASCULAR: Heart has a regular rhythm. There is an intermittent S3, no S4. No cardiac rubs or murmurs. GASTROINTESTINAL: Abdomen is soft and nontender without organomegaly. EXTREMITIES: Free of edema, digit clubbing, or cyanosis. NEUROLOGIC: Grossly intact. SKIN: Warm to touch. LYMPH NODES: Negative to palpation. LABORATORY DATA: Hemoglobin is 12.4 and WBC count is 5.87. Potassium is 3.9 and creatinine is 0.87. IMPRESSION: 1. Hypercapnia. 2. Pulmonary hypertension. 3. Cor pulmonale. 4. Sleep apnea. 5. Schizoaffective disorder. 6. Diabetes. RECOMMENDATIONS: The patient will have a nocturnal oxygen study tonight. I think it would be helpful in this complex patient to have a meter tester see her for an opinion. Knowingly, the at least part of her problem is noncompliance with her nasal CPAP at home; however, she may benefit from BIPAP if she will cooperate and use it. Otherwise, from a cardiac standpoint, the patient is stable.
[2016-06-23] MEDS ORDERED: INSULIN GLARGINE SOLOSTAR 100 UNITS/ML 3 ML PEN SC ONE (13:15)
--- NOTE | 2016-06-23 13:22 | Progress Note ---
Subjective Subjective Date of Service: Jun 23, 2016. Pt evaluation today including: conversation w/ patient, physical exam, chart review, review of studies, review of inpatient medication list Notes: patient is feeling better, off bipap and asking for food, her breathing improved Problem List Medical Problems: (1) Change in mental status Status: Acute (2) CHF (congestive heart failure) Status: Acute (3) CHF (congestive heart failure) Status: Acute (4) CO2 retention Status: Acute (5) Fall Status: Acute (6) Hyperglycemia Status: Acute (7) Hypokalemia Status: Acute (8) Hyponatremia Status: Acute (9) Hyponatremia Status: Acute (10) Hyponatremia Status: Acute (11) SOB (shortness of breath) Status: Acute (12) Weakness Status: Acute Review of Systems Constitutional: No fever, No weight loss ENT: No hearing loss Respiratory: No sputum Abdomen: No pain Female : No dysuria Psychiatric: No depression symptoms Physical Exam Vital Signs Vital Signs Past 24 Hours: Date Time Temp Pulse Resp B/P Pulse Ox O2 Delivery O2 Flow Rate FiO2 06/23/16 12:23 36.7 106 20 123/78 94 Nasal Cannula 2.0 06/23/16 12:07 Nasal Cannula 3.0 06/23/16 11:17 106 20 90 Nasal Cannula 3.0 06/23/16 08:00 99 BiPAP 06/23/16 08:00 BiPAP 6.0 06/23/16 07:41 37.0 89 24 109/68 96 Room Air 06/23/16 07:14 90 95 6.0 06/23/16 07:14 90 20 95 BiPAP/CPAP 6.0 06/23/16 04:13 36.9 98 22 120/76 96 BiPAP 06/23/16 04:02 95 94 6.0 06/23/16 04:00 BiPAP 6.0 06/23/16 00:00 BiPAP 6.0 06/22/16 23:42 37.0 90 20 114/68 96 BiPAP 06/22/16 23:03 98 95 6.0 06/22/16 23:02 100 20 96 BiPAP/CPAP 6.0 06/22/16 20:00 BiPAP 6.0 06/22/16 19:35 37.1 107 20 122/74 95 BiPAP 06/22/16 16:00 Nasal Cannula 6.0 BiPAP 06/22/16 15:29 96 20 96 BiPAP/CPAP 6.0 06/22/16 15:24 37.5 92 20 122/74 98 BiPAP Physical Exam: General Appearance: WD/WN, no apparent distress Eyes: left eye pertinent finding (slightly bulging), bilateral eyes normal inspection ENT: hearing grossly normal Neck: supple Respiratory/Chest: + decreased breath sounds, + rales Cardiovascular: + tachycardia Abdomen: normal bowel sounds Extremities: normal range of motion 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: alert Skin: normal color, no rash Medications Medications: Current Inpatient Medications Medications (Trade) Dose Ordered Sig/Nanette Route Start Time Stop Time Status Last Admin Dose Admin Enoxaparin Sodium (Lovenox Inj) 40 mg Q24H SC 06/21/16 18:00 07/21/16 17:59 06/22/16 18:17 40 MG Acetaminophen (Tylenol Tab) 650 mg Q4H PRN PO 06/21/16 15:45 07/21/16 15:44 Al Hydrox/Mg Hydrox/Simethicone (Maalox Max Susp) 15 ml Q4H PRN PO 06/21/16 15:45 07/21/16 15:44 Magnesium Hydroxide (Milk Of Magnesia Susp) 30 ml Q12H PRN PO 06/21/16 15:45 07/21/16 15:44 Ondansetron HCl (Zofran Inj) 4 mg Q6H PRN IV 06/21/16 15:45 07/21/16 15:44 Polyethylene (Miralax Powder Packet) 17 gm DAILY PRN PO 06/21/16 15:45 07/21/16 15:44 Glucose (Glucose 40% Gel) 15-30 GRAMS 15 GRAMS... UD PRN PO 06/21/16 15:45 07/21/16 15:44 Glucose (Glucose Chew Tab) 4-8 Tablets 4 Tabl... UD PRN PO 06/21/16 15:45 07/21/16 15:44 Dextrose (Dextrose 50% 50ML Syringe) 25-50ML OF 50% DW IV FOR... UD PRN IV 06/21/16 15:45 07/21/16 15:44 Glucagon 1 mg 1 mg UD PRN SQ 06/21/16 15:45 07/21/16 15:44 Ceftriaxone Sodium/Dextrose (Rocephin Inj/ Dextrose Add-[place] 50ML) 50 ml @ 100 mls/hr Q24H IV 06/21/16 18:00 06/28/16 17:59 06/22/16 18:17 100 MLS/HR Albuterol/ Ipratropium (Duoneb) 3 ml QIDR INH 06/21/16 16:00 07/21/16 15:59 06/23/16 11:17 3 ML Insulin Aspart (novoLOG ASPART) SLIDING SCALE G... ACHS SC 06/21/16 16:00 07/21/16 15:59 06/23/16 12:14 5 UNITS Levetiracetam (Keppra Tab) 500 mg BID PO 06/21/16 21:00 07/21/16 20:59 Future Hold 06/21/16 21:45 500 MG Lisinopril (Zestril Tab) 5 mg QAM PO 06/22/16 09:00 07/22/16 08:59 06/23/16 09:21 5 MG [place] Carbonate (Lithobid Tab) 600 mg HS PO 06/21/16 21:00 07/21/16 20:59 06/21/16 21:45 600 MG Magnesium Oxide (Mag-Ox Tab) 400 mg QAM PO 06/22/16 09:00 07/22/16 08:59 06/23/16 09:21 400 MG Metolazone (Zaroxolyn Tab) 5 mg DAILY PO 06/22/16 09:00 07/22/16 08:59 06/23/16 09:21 5 MG Potassium Chloride (Klor-Con Tab) 60 meq QAM PO 06/22/16 09:00 07/22/16 08:59 06/23/16 09:22 60 MEQ Guaifenesin (Mucinex Contr Rel Tab) 600 mg Q12 PO 06/21/16 21:00 07/21/16 20:59 06/23/16 09:36 600 MG Potassium Chloride 40 meq 40 meq PM PO 06/21/16 21:00 07/21/16 20:59 06/21/16 21:44 40 MEQ Levetiracetam/ Dextrose (Keppra Iv/D5 100ml) 105 ml @ 420 mls/hr Q12 IV 06/22/16 09:00 07/22/16 08:59 06/23/16 09:20 420 MLS/HR Insulin Glargine 10 unit 10 unit BID SC 06/22/16 11:45 07/22/16 11:44 06/23/16 09:42 10 UNIT Furosemide/Syringe (Lasix Inj/ Syringe) 4 ml @ 4 mls/min BID17 IV 06/23/16 17:00 07/23/16 16:59 Insulin Glargine 12 unit 12 unit ONE ONCE SC 06/23/16 13:15 06/23/16 13:16 UNV Methylprednisolone Sodium Succinate/ Syringe (Solu-Medrol IV/ Syringe) 0.64 ml @ 1.5 mls/min ONE ONCE IV 06/23/16 18:00 06/23/16 18:01 UNV Prednisone (PredniSONE TAB) 50 mg DAILY PO 06/24/16 09:00 07/24/16 08:59 UNV Laboratory Data Labs: Last 24 Hours Test 06/22/16 13:23 06/22/16 20:25 06/23/16 06:36 06/23/16 08:25 Arterial Blood pH 7.34 Arterial Blood Partial Pressure CO2 88 mmHg Arterial Blood Partial Pressure O2 111 mm/Hg Arterial Blood HCO3 46 mmol/L Arterial Blood Oxygen Saturation 97.3 % Arterial Blood Base Excess 16.4 mEq/L Arterial Blood Gas Delivery 6L [place] Test POS Bedside Glucose 225 mg/dl 198 mg/dl White Blood Count 5.87 K/uL Red Blood Count 4.60 M/uL Hemoglobin 12.4 g/dL Hematocrit 42.5 % Mean Corpuscular Volume 92.4 fL Mean Corpuscular Hemoglobin 27.0 pg Mean Corpuscular Hemoglobin Concent 29.2 g/dl RDW Standard Deviation 58.4 fL RDW Coefficient of Variation 17.2 % Platelet Count 167 K/uL Mean Platelet Volume 10.0 fL Sodium Level 135 mmol/L Potassium Level 3.9 mmol/L Chloride Level 86 mmol/L Carbon Dioxide Level 40 mmol/L Anion Gap 9.0 mmol/L Blood Urea Nitrogen 24 mg/dl Creatinine 0.87 mg/dl Est Creatinine Clear Calc Drug Dose 75.6 ml/min Estimated GFR () 83.3 Estimated GFR (Non- 71.9 BUN/Creatinine Ratio 27.7 Random Glucose 192 mg/dl Calcium Level 9.8 mg/dl Chemistry Specimen Hemolysis Test 06/23/16 11:03 Bedside Glucose 307 mg/dl Assessment and Plan 61 y/o female with a history of CHF, respiratory failure, DM II, HTN, seizure disorder, and bipolar disorder who presented for a direct admission on 06/21 with cough, lethargy, weakness and confusion. Cough for several weeks, productive with yellow sputum in last few days, myalgias. No shortness of breath. On 2L [place] oxygen at home continuous. CXR mild pulmonary edema. ABG on admisson: pH 7.3, pCO2 91, pO2 71, HCO3 44. 1. Acute hypercarbic respiratory failure on top of chronic respiratory failure sec to COPD, pulmonary edema cont telemetry cont BIPAP HS consult pulm flu is negative Lactic acid nl Blood cultures pending cont Rocephin 1 gm IV qd cont Mucinex 600 mg PO BID cont Incentive spirometry Duonebs QIDR and q2h prn SOB/wheezing CPAP for nighttime stop IV steroids tonight and start po prednisone tomorrow Chronic stable CHF decrease Lasix to 40 mg IV BID due to rising BUN Continue metolazone 5 mg PO BID Continue KCl supplements Diabetes mellitus type 2--Last HgbA1c 7.7 increase Lantus due to steroids Insulin sliding scale Check BSGs q ac and qhs HTN--stable Continue lisinopril 5 mg PO qd Seizure disorder Continue Keppra 500 mg IV BID Bipolar disorder Continue lithium 600 mg PO qhs DVT prophylaxis Enoxaparin 40 mg SC q24h JAYDON smith and ANAHIs Code Status FULL
[2016-06-23] MEDS: ACETAMINOPHEN 325 MG TAB PO PRN ×2 (14:30→22:59)
[2016-06-23] MEDS: CEFTRIAXONE SOD INJ 1 GM in DEXTROSE 5% ADD-VANTAGE 50ML 50 ML IV SCH (17:00)
[2016-06-23] MEDS ORDERED: METHYLPREDNISOLONE IV 40 MG in SYRINGE 0 ML IV SCH (17:00)
[2016-06-23] MEDS: FUROSEMIDE INJ 40 MG in SYRINGE 0 ML IV SCH (17:00)
[2016-06-23] MEDS: ENOXAPARIN 40 MG/0.4 ML SYR SC SCH (17:04)
[2016-06-23] MEDS ORDERED: METHYLPREDNISOLONE IV 40 MG in SYRINGE 0 ML IV ONE (18:00)
--- NOTE | 2016-06-23 18:27 | Pulmonary Consultation ---
History General Date of Service: Jun 23, 2016. Stated Complaint: Lethargy, Weakness, hypercapnia HPI The patient is a 61 year old female who presents to [facility] with complaints of Lethargy, Weakness. The patient's primary care provider is Bin Patel M.D.. 61-year-old female with complex past medical history: Diastolic heart failure, chronic hypercapnia/OHV, hypertension, possible seizure disorder and bipolar disorder. She was admitted 2 days ago with cough, lethargy, weakness and confusion. During the initial evaluation the patient was lethargic, having what appears to be paroxysmal coughing and inability to clear her mucous secretions. She was initially seen by her PCP secondary to dry cough and was prescribed an unknown medication. The patient initially refused but as her symptoms progressed she reluctantly agreed. After this the cough became productive in nature with yellow thick sputum and as this progressed the patient became rapidly more lethargic, and the noted decreased appetite and possibly increased shaking of her left greater than right hand. On the night of admission the patient was noted by the to become increasingly confused with possible fevers and chills. On her presentation she was a direct admission and she was noted to be in respiratory insufficiency and unable to control her airway. At that time she was initiated on BiPAP and she has been treated with methylprednisolone, ceftriaxone and DuoNeb's. At the time of my conversation the patient is confused but very pleasant and appropriate. She is easily arousable but a very poor historian. Relevant past medical workup: Cardiac Echo (12/24/15) LV: EF=50-55% Type 1 diastolic dysfunction RV: severely dilated, LA: mildly dilated RA: moderately dilated TR: mod-sever RSVP: 43mmHg PFTs attempted 11/29/13 but secondary to coughing data was unreliable ABGS: 06/22/16 (13:23) 7.34/88/111/46 6Lnc A-a: 0 06/22/16 (0900) 7.29/97/93/46 6Lnc A-a: 0 06/21/16 (1450) 7.30/91/71/44 2Lnc A-a: 0 Microbiology: 1)URINE (11/28/07) VRE 2)URINE (11/18/07) Klebsiella and Citrobacter 3)URINE (11/11/07) VRE 4)URIN (11/09/07) VRE Historian: patient, EMS Review of Systems We'll see if that review of systems was performed, patient is poor historian she notes review of systems be negative Constitutional: reports: no symptoms Eyes: reports: no symptoms ENT: reports: no symptoms Cardiovascular: reports: no symptoms Respiratory: reports: no symptoms Gastrointestinal: reports: no symptoms Genitourinary - Female: reports: no symptoms Musculoskeletal: reports: no symptoms Integumentary: reports: no symptoms Neurologic: reports: no symptoms Psychiatric: reports: no symptoms Endocrine: no symptoms Hematologic / Lymphatic: no symptoms Allergic / Immunologic: no symptoms Past Medical History Past Medical History: 1. Cardiomyopathy 2.Complex partial seizure 3.Congestive heart failure 4.Diabetic nephropathy 5.Hypercapnia 6.Hypertension 7.Obesity 8.Paranoid schizophrenia 9.Nephropathy 10.Pulmonary hypertension 11.Respiratory failure 12.Tremor 13.poss partial complex seizure 14.hypoxemia 15.elevated ammonia 16.KORI: Poorly compliant with CPAP 17.Oxygen independent 2 L at home Past Medical History: bipolar disorder, congestive heart failure, diabetes, renal disease, other Past Surgical History: no surgical history Family History FH: HTN (hypertension) FH: diabetes mellitus Heart disease Social History Hx Tobacco Use In Past Year?: No Smoking Status: Never Smoker Alcohol: never Drug Use: none Marital status: Housing status: lives with significant other Occupational Status: retired Immunizations History of Influenza Vaccine: Unknown Influenza Vaccine Date: Sep 27, 2009 History of Tetanus Vaccine?: Unknown History of Pneumococcal: No Pneumococcal Date: Jun 28, 2007 History of Hepatitis B Vaccine: Unknown History of MDRO History of MDRO: Yes Type of MDRO: VRE, MRSA Allergies Coded Allergies: No Known Allergies (Verified , `, 06/21/16) Current Medications Reported Home Medications Medications Dose Route/Sig Max Daily Dose Days Date Category Dose Instructions Tessalon Perles (Benzonatate) 200 Mg Cap 200 Mg PO Q8 06/21/16 Reported Zaroxolyn (Metolazone) 5 Mg Tab 5 Mg PO DAILY 02/03/16 Reported Combivent Respimat (Ipratropium-Albuterol) 1 Aer Aer 1 Puffs INH QID 02/03/16 Reported Furosemide 80 Mg Tab 80 Mg PO BID 12/24/15 Reported Klor-Con M20 (Potassium Chloride) 20 Meq Tabcr 60 Meq PO UD 04/09/15 Reported 3 tablets in the morning, 2 tablets at night Lantus Solostar Pen (Insulin Glargine) 100 Unit/ Inj 15 Unit SQ HS 04/09/15 Reported Lisinopril 5 Mg Tab 5 Mg PO QAM 04/09/15 Reported Levetiracetam (Levetiractam) 500 Mg Tab 500 Mg PO BID 04/09/15 Reported Tylenol (Acetaminophen) 325 Mg Tab 650 Mg PO Q4 PRN 01/04/15 Reported DO NOT EXCEED 3GM/24HRS Novolog (Insulin Aspart) Inj 10 Units SQ UD 01/04/15 Reported ONLY IF BLOOD SUGAR IS >180 Mag-Ox (Magnesium Oxide) 400 Mg Tab 400 Mg PO QAM 01/04/15 Reported Lithobid Ext Rel ([place] Carbonate) 300 Mg Tab 600 Mg PO HS 01/04/15 Reported Vitamin D3 (Cholecalciferol) 1,000 Unit Cap 1,000 Inter.unit PO QAM 03/03/13 Reported Physical Physical Exam Vital Signs: Date Time Temp Pulse Resp B/P Pulse Ox O2 Delivery O2 Flow Rate FiO2 06/23/16 16:18 94 18 88 Room Air 06/23/16 16:05 Nasal Cannula 3.0 06/23/16 16:05 96 Nasal Cannula 3.0 06/23/16 15:52 87 20 94 Nasal Cannula 3.0 06/23/16 15:41 36.6 86 22 112/72 96 Nasal Cannula 3.0 06/23/16 12:23 36.7 106 20 123/78 94 Nasal Cannula 2.0 06/23/16 12:07 Nasal Cannula 3.0 06/23/16 11:17 106 20 90 Nasal Cannula 3.0 06/23/16 08:00 99 BiPAP 06/23/16 08:00 BiPAP 6.0 06/23/16 07:41 37.0 89 24 109/68 96 Room Air 06/23/16 07:14 90 95 6.0 06/23/16 07:14 90 20 95 BiPAP/CPAP 6.0 06/23/16 04:13 36.9 98 22 120/76 96 BiPAP 06/23/16 04:02 95 94 6.0 06/23/16 04:00 BiPAP 6.0 06/23/16 00:00 BiPAP 6.0 06/22/16 23:42 37.0 90 20 114/68 96 BiPAP 06/22/16 23:03 98 95 6.0 06/22/16 23:02 100 20 96 BiPAP/CPAP 6.0 06/22/16 20:00 BiPAP 6.0 06/22/16 19:35 37.1 107 20 122/74 95 BiPAP General Appearance: WELL-APPEARING Head: NORMOCEPHALIC, ATRAUMATIC Eyes: other (exophthalmus) ENT: NORMAL EAR EXAM, NORMAL NASAL EXAM, other (Mallampati 4) Neck: NORMAL RANGE OF MOTION, NO TENDERNESS, TRACHEA MIDLINE, NO STRIDOR Respiratory: other (decreased breath sounds with minimal rhonchi bilaterally) Cardiovasular: REGULAR RATE/RHYTHM, NORMAL S1S2, NO M/G/R, NO MURMUR, NO GALLOP , NO RUB, NO JVD Abdomen: NON TENDER, NORMAL BOWEL SOUNDS, NO REBOUND Genitourinary - Female: EXTERNAL GENITALIA NORMAL Back: NORMAL INSPECTION, NO MIDLINE TENDERNESS, NO CVA TENDERNESS Upper Extremities: NO EDEMA Lower Extremities: edema Edema: Bilateral LE (1+) Pulses: carotid (R) (2+), carotid (L) (2+), dorsalis pedis (R) (1+), dorsalis pedis (L) (1+) Neuro: ALERT, other (oriented to person, place) Reflexes: biceps (R) (2+), bicpes (L) (2+) Babinski Testing: right (downgoing), left (downgoing) Psychiatric: NORMAL AFFECT Diagnostics Labs Results Past 24 Hours Test 06/22/16 20:25 06/23/16 06:36 06/23/16 08:25 06/23/16 11:03 Range/Units Bedside Glucose 225 198 307 70-90 mg/dl White Blood Count 5.87 4.8-10.8 K/uL Red Blood Count 4.60 4.2-5.4 M/uL Hemoglobin 12.4 12.0-16.0 g/dL Hematocrit 42.5 37-47 % Mean Corpuscular Volume 92.4 80-100 fL Mean Corpuscular Hemoglobin 27.0 25-34 pg Mean Corpuscular Hemoglobin Concent 29.2 32-36 g/dl RDW Standard Deviation 58.4 36.4-46.3 fL RDW Coefficient of Variation 17.2 11.5-14.5 % Platelet Count 167 130-400 K/uL Mean Platelet Volume 10.0 7.4-10.4 fL Sodium Level 135 136-145 mmol/L Potassium Level 3.9 3.5-5.1 mmol/L Chloride Level 86 98-107 mmol/L Carbon Dioxide Level 40 21-32 mmol/L Anion Gap 9.0 3-11 mmol/L Blood Urea Nitrogen 24 7-18 mg/dl Creatinine 0.87 0.60-1.20 mg/dl Est Creatinine Clear Calc Drug Dose 75.6 ml/min Estimated GFR () 83.3 Estimated GFR (Non- 71.9 BUN/Creatinine Ratio 27.7 10-20 Random Glucose 192 70-99 mg/dl Calcium Level 9.8 8.5-10.1 mg/dl Chemistry Specimen Hemolysis Test 06/23/16 16:30 Range/Units Bedside Glucose 276 70-90 mg/dl Diagnostic Radiology Increased pulmonary vascularization bilaterally, no pleural effusions, no infiltrative processes EKG Interpretation: NORMAL EKG Impression Assessment and Plan 61-year-old female with chronic hypercapnia: #1 Hypercapnia: On reviewing the previous notes as well as the patient's recent ABGs her history is most consistent with a hypoventilation syndrome. The patient's recent ABGs have no A-a gradient which is consistent with hypoventilation syndromes. I believe that this time the patient's hypercapnia is from obesity hypoventilation syndrome, medications with associated Mallampati 4 physiology. I agree with the team's plan to proceed forward with a nocturnal desaturation study for evaluation of BiPAP. Thank you for this interesting consultation
[2016-06-23] MEDS ORDERED: INSULIN ASPART 100 UNITS/ML 3 ML PEN SC ONE (20:30)
[2016-06-23] MEDS: LITHIUM CARBONATE SR 300 MG TAB (LITHOBID) PO SCH (21:14)
[2016-06-24] VITALS (16 sets, daily range): BP systolic 102–133; BP diastolic 52–85; PULSE 78–96; TEMP 36.3–37; O2SAT 92–100
[2016-06-24] MEDS: ALBUT/IPRATROP 3MG/0.5MG NEB 3 ML VIAL INH SCH ×4 (07:13→19:38)
[2016-06-24 08:06] LABS: HEMATOCRIT 42.6 % (37-47); MEAN CELL VOLUME 90.8 fL (80-100); MEAN CORPUSCULAR HEMOGLOBIN 26.7 pg (25-34); MEAN CORPUSCULAR HGB CONC 29.3 g/dl (32-36); MEAN PLATELET VOLUME 9.5 fL (7.4-10.4); PLATELET COUNT 181 K/uL (130-400); RED BLOOD COUNT 4.69 M/uL (4.2-5.4); WHITE BLOOD COUNT 10.75 K/uL (4.8-10.8)
[2016-06-24 08:40] LABS: BUN/CREATININE RATIO 32.6 (10-20); CREATININE 0.94 mg/dl (0.60-1.20); POTASSIUM 3.7 mmol/L (3.5-5.1)
[2016-06-24] MEDS: FUROSEMIDE INJ 40 MG in SYRINGE 0 ML IV SCH ×2 (09:00→17:23)
[2016-06-24] MEDS: LEVETIRACETAM IV 500 MG in DEXTROSE 5% 100ML 100 ML IV SCH ×2 (09:01→21:52)
[2016-06-24] MEDS: MAGNESIUM OXIDE 400 MG TAB PO SCH (09:01)
[2016-06-24] MEDS: METOLAZONE 5 MG TAB PO SCH (09:02)
[2016-06-24] MEDS: GUAIFENESIN 600 MG TABCR PO SCH ×2 (09:02→21:45)
[2016-06-24] MEDS: POTASSIUM CHLORIDE 20 MEQ TABCR PO SCH ×2 (09:02→21:44)
[2016-06-24] MEDS: LISINOPRIL 5 MG TAB PO SCH (09:04)
[2016-06-24] MEDS: INSULIN GLARGINE SOLOSTAR 100 UNITS/ML 3 ML PEN SC SCH ×2 (09:06→21:49)
[2016-06-24] MEDS: INSULIN ASPART 100 UNITS/ML 3 ML PEN SC SCH ×4 (09:31→21:49)
[2016-06-24] MEDS: NYSTATIN CR 15 GM TUBE EXT SCH ×2 (09:45→21:44)
--- NOTE | 2016-06-24 10:54 | CARDIOLOGY PROGRESS NOTE ---
DATE: 06/24/2016 DATE: 06/24/2016. FOLLOW-UP VISIT SUBJECTIVE: The patient is a 61-year-old female who presented with lethargy and mental status changes due to hypercapnia. The pulmonary consult by Dr. Wiggins is appreciated. She had an oxygen saturation monitor last night and it appears that she has had several desaturations. OBJECTIVE: VITAL SIGNS: Blood pressure is 115/60. Pulse is regular at 78. She is afebrile. GENERAL: She is alert and conversive. She is sitting in a chair. HEAD, EYES, EARS, NOSE, AND THROAT: She is normocephalic. Pupils are equal and reactive to light. Extraocular muscles are intact bilaterally. NECK: The neck veins are flat. Carotids have good upstrokes bilaterally. Thyroid is nonpalpable. RESPIRATORY: Breath sounds equal bilaterally and clear to auscultation. CARDIOVASCULAR: Heart has a regular rhythm. Normal S1, S2. No S3, S4. No cardiac rubs or murmurs. GASTROINTESTINAL: Abdomen is soft, nontender without organomegaly. EXTREMITIES: Free of edema, digit clubbing, or cyanosis. NEUROLOGIC: Grossly intact. SKIN: Warm to touch. LYMPH NODES: Negative to palpation. IMPRESSION: 1. Hypercapnia on the basis of hypoventilation syndrome. 2. Pulmonary hypertension. 3. Cor pulmonale. 4. Schizoaffective disorder. 5. Diabetes. RECOMMENDATIONS: As outlined by the exhaust emissions inspector, she may benefit from BIPAP at night if she is agreeable to wearing it. I did discuss with her and encouraged her to wear her devices at night.
--- NOTE | 2016-06-24 14:29 | Progress Note ---
Subjective Subjective Date of Service: Jun 24, 2016. Pt evaluation today including: conversation w/ patient, physical exam, chart review, review of studies, review of inpatient medication list Notes: denies complains, off bipap Problem List Medical Problems: (1) Change in mental status Status: Acute (2) CHF (congestive heart failure) Status: Acute (3) CHF (congestive heart failure) Status: Acute (4) CO2 retention Status: Acute (5) Fall Status: Acute (6) Hyperglycemia Status: Acute (7) Hypokalemia Status: Acute (8) Hyponatremia Status: Acute (9) Hyponatremia Status: Acute (10) Hyponatremia Status: Acute (11) SOB (shortness of breath) Status: Acute (12) Weakness Status: Acute Review of Systems Constitutional: No fever ENT: No hearing loss Cardiac: No chest pain Abdomen: No pain Physical Exam Vital Signs Vital Signs Past 24 Hours: Date Time Temp Pulse Resp B/P Pulse Ox O2 Delivery O2 Flow Rate FiO2 06/24/16 12:10 Nasal Cannula 2.0 06/24/16 11:48 37.0 87 20 133/76 96 Room Air 06/24/16 11:32 90 18 98 Nasal Cannula 2.0 06/24/16 08:30 Nasal Cannula 2.0 06/24/16 07:33 36.6 78 20 115/52 100 Nasal Cannula 2.0 06/24/16 07:13 88 18 97 Nasal Cannula 2.0 06/24/16 04:28 36.6 95 22 133/84 95 Nasal Cannula 2.0 06/24/16 04:00 95 Nasal Cannula 2.0 06/24/16 00:01 96 Nasal Cannula 2.0 06/23/16 23:34 37.2 93 22 127/82 96 Nasal Cannula 2.0 06/23/16 20:20 88 18 94 Nasal Cannula 2.0 06/23/16 20:00 94 Nasal Cannula 2.0 06/23/16 19:15 36.9 98 22 113/73 94 Nasal Cannula 2.0 06/23/16 16:18 94 18 88 Room Air 06/23/16 16:05 Nasal Cannula 3.0 06/23/16 16:05 96 Nasal Cannula 3.0 06/23/16 15:52 87 20 94 Nasal Cannula 3.0 06/23/16 15:41 36.6 86 22 112/72 96 Nasal Cannula 3.0 Physical Exam: General Appearance: WD/WN, no apparent distress Eyes: bilateral eyes normal inspection ENT: hearing grossly normal, pharynx normal Neck: supple, no JVD Respiratory/Chest: + rales Cardiovascular: no edema, no gallop Abdomen: normal bowel sounds, soft Extremities: non-tender, no pedal edema 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: alert Skin: normal color Medications Medications: Current Inpatient Medications Medications (Trade) Dose Ordered Sig/Nanette Route Start Time Stop Time Status Last Admin Dose Admin Enoxaparin Sodium (Lovenox Inj) 40 mg Q24H SC 06/21/16 18:00 07/21/16 17:59 06/23/16 17:04 40 MG Acetaminophen (Tylenol Tab) 650 mg Q4H PRN PO 06/21/16 15:45 07/21/16 15:44 06/23/16 22:59 650 MG Al Hydrox/Mg Hydrox/Simethicone (Maalox Max Susp) 15 ml Q4H PRN PO 06/21/16 15:45 07/21/16 15:44 Magnesium Hydroxide (Milk Of Magnesia Susp) 30 ml Q12H PRN PO 06/21/16 15:45 07/21/16 15:44 Ondansetron HCl (Zofran Inj) 4 mg Q6H PRN IV 06/21/16 15:45 07/21/16 15:44 Polyethylene (Miralax Powder Packet) 17 gm DAILY PRN PO 06/21/16 15:45 07/21/16 15:44 Glucose (Glucose 40% Gel) 15-30 GRAMS 15 GRAMS... UD PRN PO 06/21/16 15:45 07/21/16 15:44 Glucose (Glucose Chew Tab) 4-8 Tablets 4 Tabl... UD PRN PO 06/21/16 15:45 07/21/16 15:44 Dextrose (Dextrose 50% 50ML Syringe) 25-50ML OF 50% DW IV FOR... UD PRN IV 06/21/16 15:45 07/21/16 15:44 Glucagon 1 mg 1 mg UD PRN SQ 06/21/16 15:45 07/21/16 15:44 Ceftriaxone Sodium/Dextrose (Rocephin Inj/ Dextrose Add-[place] 50ML) 50 ml @ 100 mls/hr Q24H IV 06/21/16 18:00 06/28/16 17:59 06/23/16 17:00 100 MLS/HR Albuterol/ Ipratropium (Duoneb) 3 ml QIDR INH 06/21/16 16:00 07/21/16 15:59 06/24/16 11:32 3 ML Insulin Aspart (novoLOG ASPART) SLIDING SCALE G... ACHS SC 06/21/16 16:00 07/21/16 15:59 06/24/16 12:43 3 UNITS Levetiracetam (Keppra Tab) 500 mg BID PO 06/21/16 21:00 07/21/16 20:59 Future Hold 06/21/16 21:45 500 MG Lisinopril (Zestril Tab) 5 mg QAM PO 06/22/16 09:00 07/22/16 08:59 06/24/16 09:04 5 MG [place] Carbonate (Lithobid Tab) 600 mg HS PO 06/21/16 21:00 07/21/16 20:59 06/23/16 21:14 600 MG Magnesium Oxide (Mag-Ox Tab) 400 mg QAM PO 06/22/16 09:00 07/22/16 08:59 06/24/16 09:01 400 MG Metolazone (Zaroxolyn Tab) 5 mg DAILY PO 06/22/16 09:00 07/22/16 08:59 06/24/16 09:02 5 MG Potassium Chloride (Klor-Con Tab) 60 meq QAM PO 06/22/16 09:00 07/22/16 08:59 06/24/16 09:02 60 MEQ Guaifenesin (Mucinex Contr Rel Tab) 600 mg Q12 PO 06/21/16 21:00 07/21/16 20:59 06/24/16 09:02 600 MG Potassium Chloride 40 meq 40 meq PM PO 06/21/16 21:00 07/21/16 20:59 06/23/16 21:12 40 MEQ Levetiracetam 500 mg/Dextrose 105 ml @ 420 mls/hr Q12 IV 06/22/16 09:00 07/22/16 08:59 06/24/16 09:01 420 MLS/HR Furosemide/Syringe (Lasix Inj/ Syringe) 4 ml @ 4 mls/min BID17 IV 06/23/16 17:00 07/23/16 16:59 06/24/16 09:00 4 MLS/MIN Prednisone (PredniSONE TAB) 50 mg DAILY PO 06/24/16 09:00 07/24/16 08:59 06/24/16 09:01 50 MG Insulin Glargine (Lantus Solostar Pen) 20 unit BID SC 06/23/16 21:00 07/23/16 20:59 06/24/16 09:06 20 UNIT Nystatin (Mycostatin Crm) 1 appln BID EXT 06/24/16 09:45 07/24/16 09:44 Laboratory Data Labs: Last 24 Hours Test 06/23/16 16:30 06/23/16 20:11 06/24/16 06:42 06/24/16 07:55 Bedside Glucose 276 mg/dl 333 mg/dl 182 mg/dl White Blood Count 10.75 K/uL Red Blood Count 4.69 M/uL Hemoglobin 12.5 g/dL Hematocrit 42.6 % Mean Corpuscular Volume 90.8 fL Mean Corpuscular Hemoglobin 26.7 pg Mean Corpuscular Hemoglobin Concent 29.3 g/dl RDW Standard Deviation 55.8 fL RDW Coefficient of Variation 16.9 % Platelet Count 181 K/uL Mean Platelet Volume 9.5 fL Sodium Level 130 mmol/L Potassium Level 3.7 mmol/L Chloride Level 78 mmol/L Carbon Dioxide Level 44 mmol/L Anion Gap 8.0 mmol/L Blood Urea Nitrogen 31 mg/dl Creatinine 0.94 mg/dl Est Creatinine Clear Calc Drug Dose 70.0 ml/min Estimated GFR () 75.9 Estimated GFR (Non- 65.5 BUN/Creatinine Ratio 32.6 Random Glucose 140 mg/dl Calcium Level 10.0 mg/dl Test 06/24/16 11:21 Bedside Glucose 254 mg/dl Assessment and Plan 61 y/o female with a history of CHF, respiratory failure, DM II, HTN, seizure disorder, and bipolar disorder who presented for a direct admission on 06/21 with cough, lethargy, weakness and confusion. Cough for several weeks, productive with yellow sputum in last few days, myalgias. No shortness of breath. On 2L NC oxygen at home continuous. CXR mild pulmonary edema. ABG on admisson: pH 7.3, pCO2 91, pO2 71, HCO3 44. 1. Acute hypercarbic respiratory failure on top of chronic respiratory failure sec to COPD, pulmonary edema cont telemetry cont BIPAP HS appreciated pulm input flu is negative Lactic acid nl Blood cultures pending cont Rocephin 1 gm IV qd cont Mucinex 600 mg PO BID cont Incentive spirometry Duonebs QIDR and q2h prn SOB/wheezing CPAP for nighttime continue po prednisone daily had overnight pulse ox study and will likely require BIPAP Chronic stable CHF cont Lasix to 40 mg IV BID due to rising BUN Continue metolazone 5 mg PO BID Continue KCl supplements Diabetes mellitus type 2--Last HgbA1c 7.7 increased Lantus due to steroids Insulin sliding scale Check BSGs q ac and qhs HTN--stable Continue lisinopril 5 mg PO qd Seizure disorder Continue Keppra 500 mg IV BID Bipolar disorder Continue lithium 600 mg PO qhs DVT prophylaxis Enoxaparin 40 mg SC q24h JAYDON smith and SCDs Code Status FULL pt/ot eval: rehab? will d/w ALLAN
--- NOTE | 2016-06-24 14:51 | Pulmonology Progress Note ---
Pulmonary Progress Note Date of Service Jun 24, 2016. Attending Dr. Hunter Wiggins Subjective Patient feels well today. She notes she is back to her baseline. Objective 61y/o female admitted with AMS and associated hypercapnea: VS: Reviewed and stable I/O: -5.4L O2-02Lnc SaO2 95-100% General: well appearing female, Ax3 RESP: CTA (b) CARD: S1S2 rrr EXT: 1+ piting edema Oximetry Study: The longest continuous time with SaO2 <=885 was only 2 minutes 44 seconds Serum CO2: 44 Medications: Prednisone 50mg Ceftriaxone 1g Assessment & Plan 61-year-old female hospital day 2 for AMS with associated acute on chronic hypercapnia: #1 Hypercapnia: Patient's serum CO2 suggest that her baseline PaCO2 is around 68. The patient has had a proper renal response to her acute rise in PaCO2 as it has reached 44 today. I believe this patient is back to her baseline respiratory status. As the Oximetry Studies longest continuous time with SaO2 < =88% was only 2 minutes 44 seconds this patient doesn't meet the criteria for BiPAP at his time. I still suggest she f/u with Dr. Cornel Juarez as he has seen her in the past for a further discussion about sleep disorder breathing, OHV. -Steroids: I suggest we jeet down our patient's prednisone over the next 10 days as she has no definitive history of obstructive lung disease. -Pulmonary Hypertension: The patient has an elevated RVSP secondary to KORI/OHV at this time. The fact that our patient has a very small A-a gradient suggest this is the under lying etiology. As an out patient further work-up to r/o group II or possible group I should be performed id not already done so. Data Medications: Current Inpatient Medications Medications (Trade) Dose Ordered Sig/Nanette Route Start Time Stop Time Status Last Admin Dose Admin Enoxaparin Sodium (Lovenox Inj) 40 mg Q24H SC 06/21/16 18:00 07/21/16 17:59 06/23/16 17:04 40 MG Acetaminophen (Tylenol Tab) 650 mg Q4H PRN PO 06/21/16 15:45 07/21/16 15:44 06/23/16 22:59 650 MG Al Hydrox/Mg Hydrox/Simethicone (Maalox Max Susp) 15 ml Q4H PRN PO 06/21/16 15:45 07/21/16 15:44 Magnesium Hydroxide (Milk Of Magnesia Susp) 30 ml Q12H PRN PO 06/21/16 15:45 07/21/16 15:44 Ondansetron HCl (Zofran Inj) 4 mg Q6H PRN IV 06/21/16 15:45 07/21/16 15:44 Polyethylene (Miralax Powder Packet) 17 gm DAILY PRN PO 06/21/16 15:45 07/21/16 15:44 Glucose (Glucose 40% Gel) 15-30 GRAMS 15 GRAMS... UD PRN PO 06/21/16 15:45 07/21/16 15:44 Glucose (Glucose Chew Tab) 4-8 Tablets 4 Tabl... UD PRN PO 06/21/16 15:45 07/21/16 15:44 Dextrose (Dextrose 50% 50ML Syringe) 25-50ML OF 50% DW IV FOR... UD PRN IV 06/21/16 15:45 07/21/16 15:44 Glucagon 1 mg 1 mg UD PRN SQ 06/21/16 15:45 07/21/16 15:44 Ceftriaxone Sodium/Dextrose (Rocephin Inj/ Dextrose Add-[place] 50ML) 50 ml @ 100 mls/hr Q24H IV 06/21/16 18:00 06/28/16 17:59 06/23/16 17:00 100 MLS/HR Albuterol/ Ipratropium (Duoneb) 3 ml QIDR INH 06/21/16 16:00 07/21/16 15:59 06/24/16 11:32 3 ML Insulin Aspart (novoLOG ASPART) SLIDING SCALE G... ACHS SC 06/21/16 16:00 07/21/16 15:59 06/24/16 12:43 3 UNITS Levetiracetam (Keppra Tab) 500 mg BID PO 06/21/16 21:00 07/21/16 20:59 Future Hold 06/21/16 21:45 500 MG Lisinopril (Zestril Tab) 5 mg QAM PO 06/22/16 09:00 07/22/16 08:59 06/24/16 09:04 5 MG [place] Carbonate (Lithobid Tab) 600 mg HS PO 06/21/16 21:00 07/21/16 20:59 06/23/16 21:14 600 MG Magnesium Oxide (Mag-Ox Tab) 400 mg QAM PO 06/22/16 09:00 07/22/16 08:59 06/24/16 09:01 400 MG Metolazone (Zaroxolyn Tab) 5 mg DAILY PO 06/22/16 09:00 07/22/16 08:59 06/24/16 09:02 5 MG Potassium Chloride (Klor-Con Tab) 60 meq QAM PO 06/22/16 09:00 07/22/16 08:59 06/24/16 09:02 60 MEQ Guaifenesin (Mucinex Contr Rel Tab) 600 mg Q12 PO 06/21/16 21:00 07/21/16 20:59 06/24/16 09:02 600 MG Potassium Chloride 40 meq 40 meq PM PO 06/21/16 21:00 07/21/16 20:59 06/23/16 21:12 40 MEQ Levetiracetam 500 mg/Dextrose 105 ml @ 420 mls/hr Q12 IV 06/22/16 09:00 07/22/16 08:59 06/24/16 09:01 420 MLS/HR Furosemide/Syringe (Lasix Inj/ Syringe) 4 ml @ 4 mls/min BID17 IV 06/23/16 17:00 07/23/16 16:59 06/24/16 09:00 4 MLS/MIN Prednisone (PredniSONE TAB) 50 mg DAILY PO 06/24/16 09:00 07/24/16 08:59 06/24/16 09:01 50 MG Insulin Glargine (Lantus Solostar Pen) 20 unit BID SC 06/23/16 21:00 07/23/16 20:59 06/24/16 09:06 20 UNIT Nystatin (Mycostatin Crm) 1 appln BID EXT 06/24/16 09:45 07/24/16 09:44 I & O: 24-Hour Column 06/24/16 08:00 Intake Total 783 ml Output Total 3050 ml Balance -2267 ml Vital Signs: Date Time Temp Pulse Resp B/P Pulse Ox O2 Delivery O2 Flow Rate FiO2 06/24/16 12:10 Nasal Cannula 2.0 06/24/16 11:48 37.0 87 20 133/76 96 Room Air 06/24/16 11:32 90 18 98 Nasal Cannula 2.0 06/24/16 08:30 Nasal Cannula 2.0 06/24/16 07:33 36.6 78 20 115/52 100 Nasal Cannula 2.0 06/24/16 07:13 88 18 97 Nasal Cannula 2.0 06/24/16 04:28 36.6 95 22 133/84 95 Nasal Cannula 2.0 06/24/16 04:00 95 Nasal Cannula 2.0 06/24/16 00:01 96 Nasal Cannula 2.0 06/23/16 23:34 37.2 93 22 127/82 96 Nasal Cannula 2.0 06/23/16 20:20 88 18 94 Nasal Cannula 2.0 06/23/16 20:00 94 Nasal Cannula 2.0 06/23/16 19:15 36.9 98 22 113/73 94 Nasal Cannula 2.0 06/23/16 16:18 94 18 88 Room Air 06/23/16 16:05 Nasal Cannula 3.0 06/23/16 16:05 96 Nasal Cannula 3.0 06/23/16 15:52 87 20 94 Nasal Cannula 3.0 06/23/16 15:41 36.6 86 22 112/72 96 Nasal Cannula 3.0 Laboratory Results: Last 24 Hours Test 06/23/16 16:30 06/23/16 20:11 06/24/16 06:42 06/24/16 07:55 Bedside Glucose 276 mg/dl 333 mg/dl 182 mg/dl White Blood Count 10.75 K/uL Red Blood Count 4.69 M/uL Hemoglobin 12.5 g/dL Hematocrit 42.6 % Mean Corpuscular Volume 90.8 fL Mean Corpuscular Hemoglobin 26.7 pg Mean Corpuscular Hemoglobin Concent 29.3 g/dl RDW Standard Deviation 55.8 fL RDW Coefficient of Variation 16.9 % Platelet Count 181 K/uL Mean Platelet Volume 9.5 fL Sodium Level 130 mmol/L Potassium Level 3.7 mmol/L Chloride Level 78 mmol/L Carbon Dioxide Level 44 mmol/L Anion Gap 8.0 mmol/L Blood Urea Nitrogen 31 mg/dl Creatinine 0.94 mg/dl Est Creatinine Clear Calc Drug Dose 70.0 ml/min Estimated GFR () 75.9 Estimated GFR (Non- 65.5 BUN/Creatinine Ratio 32.6 Random Glucose 140 mg/dl Calcium Level 10.0 mg/dl Test 06/24/16 11:21 Bedside Glucose 254 mg/dl
[2016-06-24] MEDS: CEFTRIAXONE SOD INJ 1 GM in DEXTROSE 5% ADD-VANTAGE 50ML 50 ML IV SCH (17:26)
[2016-06-24] MEDS: ENOXAPARIN 40 MG/0.4 ML SYR SC SCH (18:16)
[2016-06-24] MEDS: LITHIUM CARBONATE SR 300 MG TAB (LITHOBID) PO SCH (21:45)
[2016-06-25] VITALS (14 sets, daily range): BP systolic 109–124; BP diastolic 59–77; PULSE 74–99; TEMP 36.4–36.8; O2SAT 92–98
[2016-06-25 00:14] LABS: URINE APPEARANCE CLEAR (CLEAR); URINE BILIRUBIN NEG (NEG); URINE COLOR RED; URINE NITRITE NEG (NEG); URINE PH 7.5 (4.5-7.5); URINE SPECIFIC GRAVITY 1.007 (1.000-1.030); UROBILINOGEN NEG (NEG)
[2016-06-25 00:20] LABS: MANUAL MICROSCOPIC REQUIRED? NO; REVIEW REQ? NO; SULFASALICYLIC ACID POS (NEG)
[2016-06-25 01:38] LABS: ZZUR CULT IF INDIC CLEAN CATCH NO
[2016-06-25] MEDS: INSULIN ASPART 100 UNITS/ML 3 ML PEN SC SCH ×4 (07:00→20:31)
[2016-06-25] MEDS: ALBUT/IPRATROP 3MG/0.5MG NEB 3 ML VIAL INH SCH ×4 (07:09→19:28)
[2016-06-25] MEDS: NYSTATIN CR 15 GM TUBE EXT SCH ×2 (07:28→20:27)
[2016-06-25] MEDS: MAGNESIUM OXIDE 400 MG TAB PO SCH (07:29)
[2016-06-25] MEDS: POTASSIUM CHLORIDE 20 MEQ TABCR PO SCH ×2 (07:29→20:27)
[2016-06-25] MEDS: GUAIFENESIN 600 MG TABCR PO SCH ×2 (07:29→20:26)
[2016-06-25] MEDS: LISINOPRIL 5 MG TAB PO SCH (07:30)
[2016-06-25] MEDS: METOLAZONE 5 MG TAB PO SCH (07:30)
[2016-06-25] MEDS: FUROSEMIDE INJ 40 MG in SYRINGE 0 ML IV SCH ×2 (08:17→17:00)
[2016-06-25] MEDS: LEVETIRACETAM IV 500 MG in DEXTROSE 5% 100ML 100 ML IV SCH ×2 (08:17→20:26)
--- NOTE | 2016-06-25 09:58 | PROGRESS NOTE ---
DATE: 06/25/2016 FOLLOWUP VISIT SUBJECTIVE: The patient is a 61-year-old female who presented with hypercapnia. She had a large diuresis yesterday and remains alert and oriented. She is having difficulty, however, with ambulation and will require additional physical therapy and admission to rehabilitation hospital after discharge. OBJECTIVE: GENERAL: She is alert and oriented. VITAL SIGNS: Blood pressure is 110/70 and pulse is regular at 95. She is afebrile. HEENT: She is normocephalic. Pupils are equal and reactive to light. Extraocular muscles are intact bilaterally. NECK: The neck veins are flat. Carotids have good upstrokes bilaterally without bruits. Thyroid is nonpalpable. RESPIRATORY: Breath sounds equal bilaterally and clear to auscultation. CARDIOVASCULAR: Heart has a regular rhythm. Normal S1 and S2. No S3 or S4. No cardiac rubs or murmurs. GASTROINTESTINAL: Abdomen is soft and nontender without organomegaly. EXTREMITIES: Free of edema, digit clubbing, or cyanosis. NEUROLOGIC: Grossly intact. SKIN: Warm to touch. LYMPH NODES: Negative to palpation. LABORATORY DATA: Hemoglobin is 12.5. IMPRESSION: 1. Hypercapnia, which is now resolved. 2. Hypoventilation syndrome. 3. Pulmonary hypertension. 4. Cor pulmonale. 5. Diabetes mellitus. 6. Schizoaffective disorder. RECOMMENDATIONS: As outlined above, the patient would benefit from additional physical therapy at a rehabilitation hospital. She is agreeable to being discharged to [facility] if she is accepted.
--- NOTE | 2016-06-25 11:40 | PULMONARY PROGRESS NOTE ---
DATE: 06/25/2016 PROBLEM LIST: Includes: 1. Hypercapnia. 2. Pulmonary hypertension. SUBJECTIVE: The patient reports that she is feeling much better than on admission. She states that she still has some cough. She states that her only problem is a cough. She states that she can walk around the room without difficulty. She is not getting short of breath with exertion. She denies any chest pain. Denies any pleuritic chest pain. Denies any other concerns or problems. OBJECTIVE: GENERAL: The patient is a 61-year-old female, does not appear in any acute distress at this time. Does not appear in any respiratory distress at this time. VITAL SIGNS: Temp 36.4, pulse 99, respiration 24, blood pressure 111/76, pulse ox 98% on 2 liters. HEENT: Normocephalic, atraumatic. Pupils equal, round and reactive to light and accommodation. Extraocular movements are intact. The patient does have some white plaques in the posterior oropharyngeal area. No erythema or edema otherwise. NECK: Short, thick, supple. No mass. No adenopathy. No bruit. CHEST: The patient has some coarse wheezes throughout upper airways. Does improve with cough, but does not completely clear with cough. No rale or rhonchi noted. CARDIOVASCULAR: Regular rate and rhythm. There are no murmurs, gallops or rubs. ABDOMEN: Obese, soft, bowel sounds are present, nontender. No guarding, rigidity or organomegaly. EXTREMITIES: No erythema, no edema. No new lab data. No new imaging data. IMPRESSION: 1. This is a 61-year-old female with history of hypercapnia and is followed up by Dr. Juarez as an outpatient. At this point, she will continue to follow with Dr. Juarez as and outpatient. 2. Pulmonary hypertension. At this time appears stable. 3. Exacerbation to her breathing, though this is improving. PLAN: At this point, still has a little bit of congestion, so I would like for her to have vibration vest through the weekend if she stays, also a flutter valve. Otherwise, maintain medications as they are. Follow guidelines for steroid taper that is in Dr. Wiggins's previous note. Continue rest of her medications as they are. Will continue to follow through hospitalization.
[2016-06-25] MEDS ORDERED: INSULIN GLARGINE SOLOSTAR 100 UNITS/ML 3 ML PEN SC SCH (12:00)
--- NOTE | 2016-06-25 15:19 | Progress Note ---
Subjective Subjective Date of Service: Jun 25, 2016. Pt evaluation today including: conversation w/ patient, physical exam, chart review, review of studies, conversation w/ java consultant (disha), review of inpatient medication list Notes: mentation and respirations with oxygenation improved. she put out lots of urine overnight ~ 3 liters Problem List Medical Problems: (1) Change in mental status Status: Acute (2) CHF (congestive heart failure) Status: Acute (3) CHF (congestive heart failure) Status: Acute (4) CO2 retention Status: Acute (5) Fall Status: Acute (6) Hyperglycemia Status: Acute (7) Hypokalemia Status: Acute (8) Hyponatremia Status: Acute (9) Hyponatremia Status: Acute (10) Hyponatremia Status: Acute (11) SOB (shortness of breath) Status: Acute (12) Weakness Status: Acute Review of Systems Constitutional: No fever ENT: No hearing loss Respiratory: No cough Cardiac: No chest pain Abdomen: No pain Female : No dysuria Neurologic: No memory loss Psychiatric: No depression symptoms Endo: No fatigue Physical Exam Vital Signs Vital Signs Past 24 Hours: Date Time Temp Pulse Resp B/P Pulse Ox O2 Delivery O2 Flow Rate FiO2 06/25/16 12:40 36.6 91 24 124/59 92 Nasal Cannula 2.0 06/25/16 12:17 98 Nasal Cannula 2.0 06/25/16 11:13 88 18 93 Nasal Cannula 2.0 06/25/16 08:01 98 Nasal Cannula 2.0 06/25/16 07:42 36.4 99 24 111/76 98 Nasal Cannula 2.0 06/25/16 07:09 92 18 98 Nasal Cannula 2.0 06/25/16 04:00 BiPAP 06/25/16 04:00 36.5 92 20 112/70 96 BiPAP 06/24/16 23:59 BiPAP 6.0 06/24/16 23:55 36.3 95 20 102/66 96 BiPAP 06/24/16 22:46 96 92 6.0 06/24/16 20:00 92 Nasal Cannula 2.0 06/24/16 19:47 36.4 94 20 119/80 92 Nasal Cannula 2.0 06/24/16 19:39 94 18 100 Nasal Cannula 2.0 06/24/16 16:00 95 Nasal Cannula 2.0 06/24/16 15:37 36.8 87 18 129/85 95 Nasal Cannula 2.0 06/24/16 15:36 87 18 97 Nasal Cannula 2.0 06/24/16 15:30 95 Nasal Cannula 2.0 Physical Exam: General Appearance: WD/WN, no apparent distress Eyes: bilateral eyes normal inspection ENT: hearing grossly normal, pharynx normal Neck: supple, no JVD Respiratory/Chest: chest non-tender, no accessory muscle use, + decreased breath sounds Cardiovascular: regular rate, rhythm Abdomen: normal bowel sounds Extremities: non-tender 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: alert Medications Medications: Current Inpatient Medications Medications (Trade) Dose Ordered Sig/Nanette Route Start Time Stop Time Status Last Admin Dose Admin Enoxaparin Sodium (Lovenox Inj) 40 mg Q24H SC 06/21/16 18:00 07/21/16 17:59 06/24/16 18:16 40 MG Acetaminophen (Tylenol Tab) 650 mg Q4H PRN PO 06/21/16 15:45 07/21/16 15:44 06/23/16 22:59 650 MG Al Hydrox/Mg Hydrox/Simethicone (Maalox Max Susp) 15 ml Q4H PRN PO 06/21/16 15:45 07/21/16 15:44 Magnesium Hydroxide (Milk Of Magnesia Susp) 30 ml Q12H PRN PO 06/21/16 15:45 07/21/16 15:44 Ondansetron HCl (Zofran Inj) 4 mg Q6H PRN IV 06/21/16 15:45 07/21/16 15:44 Polyethylene (Miralax Powder Packet) 17 gm DAILY PRN PO 06/21/16 15:45 07/21/16 15:44 Glucose (Glucose 40% Gel) 15-30 GRAMS 15 GRAMS... UD PRN PO 06/21/16 15:45 07/21/16 15:44 Glucose (Glucose Chew Tab) 4-8 Tablets 4 Tabl... UD PRN PO 06/21/16 15:45 07/21/16 15:44 Dextrose (Dextrose 50% 50ML Syringe) 25-50ML OF 50% DW IV FOR... UD PRN IV 06/21/16 15:45 07/21/16 15:44 Glucagon 1 mg 1 mg UD PRN SQ 06/21/16 15:45 07/21/16 15:44 Ceftriaxone Sodium/Dextrose (Rocephin Inj/ Dextrose Add-[place] 50ML) 50 ml @ 100 mls/hr Q24H IV 06/21/16 18:00 06/28/16 17:59 06/24/16 17:26 100 MLS/HR Albuterol/ Ipratropium (Duoneb) 3 ml QIDR INH 06/21/16 16:00 07/21/16 15:59 06/25/16 11:13 3 ML Insulin Aspart (novoLOG ASPART) SLIDING SCALE G... ACHS SC 06/21/16 16:00 07/21/16 15:59 06/25/16 12:38 1 UNITS Levetiracetam (Keppra Tab) 500 mg BID PO 06/21/16 21:00 07/21/16 20:59 Future Hold 06/21/16 21:45 500 MG Lisinopril (Zestril Tab) 5 mg QAM PO 06/22/16 09:00 07/22/16 08:59 06/25/16 07:30 5 MG [place] Carbonate (Lithobid Tab) 600 mg HS PO 06/21/16 21:00 07/21/16 20:59 06/24/16 21:45 600 MG Magnesium Oxide (Mag-Ox Tab) 400 mg QAM PO 06/22/16 09:00 07/22/16 08:59 06/25/16 07:29 400 MG Metolazone (Zaroxolyn Tab) 5 mg DAILY PO 06/22/16 09:00 07/22/16 08:59 06/25/16 07:30 5 MG Potassium Chloride (Klor-Con Tab) 60 meq QAM PO 06/22/16 09:00 07/22/16 08:59 06/25/16 07:29 60 MEQ Guaifenesin (Mucinex Contr Rel Tab) 600 mg Q12 PO 06/21/16 21:00 07/21/16 20:59 06/25/16 07:29 600 MG Potassium Chloride 40 meq 40 meq PM PO 06/21/16 21:00 07/21/16 20:59 06/24/16 21:44 40 MEQ Levetiracetam 500 mg/Dextrose 105 ml @ 420 mls/hr Q12 IV 06/22/16 09:00 07/22/16 08:59 06/25/16 08:17 420 MLS/HR Furosemide/Syringe (Lasix Inj/ Syringe) 4 ml @ 4 mls/min BID17 IV 06/23/16 17:00 07/23/16 16:59 06/25/16 08:17 4 MLS/MIN Prednisone (PredniSONE TAB) 50 mg DAILY PO 06/24/16 09:00 07/24/16 08:59 06/25/16 07:30 50 MG Nystatin (Mycostatin Crm) 1 appln BID EXT 06/24/16 09:45 07/24/16 09:44 06/25/16 07:28 1 APPLN Insulin Glargine (Lantus Solostar Pen) 20 unit DAILY SC 06/25/16 12:00 07/25/16 11:59 06/25/16 12:39 20 UNIT Laboratory Data Labs: Last 24 Hours Test 06/24/16 15:54 06/24/16 19:57 06/24/16 22:10 06/25/16 06:32 Bedside Glucose 300 mg/dl 262 mg/dl 47 mg/dl Urine Color RED Urine Appearance CLEAR Urine pH 7.5 Urine Specific [place] 1.007 Urine Protein 1+ Urine Glucose (UA) NEG Urine Ketones NEG Urine Occult Blood 3+ Urine Nitrite NEG Urine Bilirubin NEG Urine Urobilinogen NEG Urine Leukocyte Esterase TRACE Urine WBC (Auto) 1-5 /hpf Urine RBC (Auto) >30 /hpf Urine Hyaline Casts (Auto) 1-5 /lpf Urine Epithelial Cells (Auto) 10-20 /lpf Urine Bacteria (Auto) NEG Test 06/25/16 06:57 06/25/16 08:47 06/25/16 11:01 Bedside Glucose 108 mg/dl 203 mg/dl 195 mg/dl Assessment and Plan 61 y/o female with a history of CHF, respiratory failure, DM II, HTN, seizure disorder, and bipolar disorder who presented for a direct admission on 06/21 with cough, lethargy, weakness and confusion. Cough for several weeks, productive with yellow sputum in last few days, myalgias. No shortness of breath. On 2L [place] oxygen at home continuous. CXR mild pulmonary edema. ABG on admisson: pH 7.3, pCO2 91, pO2 71, HCO3 44. 1. Acute hypercarbic respiratory failure on top of chronic respiratory failure sec to obesity hypoventilation syndrome, pulmonary edema cont telemetry had pulse ox nocturnal study and she does not qualify for BIPAP appreciated pulm input, may need pulm rehab flu is negative Lactic acid nl Blood cultures pending cont Rocephin 1 gm IV qd cont Mucinex 600 mg PO BID cont Incentive spirometry Duonebs QIDR and q2h prn SOB/wheezing CPAP for nighttime? will d/w pulm since it is making her feel like choking at night continue po prednisone rapid taper Chronic stable CHF cont Lasix to 40 mg IV BID, watch creatinine Continue metolazone 5 mg PO BID Continue KCl supplements Diabetes mellitus type 2--Last HgbA1c 7.7 decreased Lantus 10 units due to decreasing steroids Insulin sliding scale Check BSGs q ac and qhs HTN--stable Continue lisinopril 5 mg PO qd Seizure disorder Continue Keppra 500 mg IV BID Bipolar disorder Continue lithium 600 mg PO qhs DVT prophylaxis Enoxaparin 40 mg SC q24h JAYDON smith and SCDs Code Status FULL pt/ot eval: rehab
[2016-06-25 16:23] LABS: CALCIUM 9.3 mg/dl (8.5-10.1); CREATININE 0.85 mg/dl (0.60-1.20); MAGNESIUM 2.2 mg/dl (1.8-2.4); POTASSIUM 3.7 mmol/L (3.5-5.1)
[2016-06-25 16:33] LABS: BETA-HYDROXYBUTYRATE 3.2 mg/dL (0.2-2.81)
[2016-06-25] MEDS: CEFTRIAXONE SOD INJ 1 GM in DEXTROSE 5% ADD-VANTAGE 50ML 50 ML IV SCH (17:38)
[2016-06-25] MEDS: ENOXAPARIN 40 MG/0.4 ML SYR SC SCH (17:38)
[2016-06-25] MEDS: LITHIUM CARBONATE SR 300 MG TAB (LITHOBID) PO SCH (20:26)
[2016-06-25] MEDS: ACETAMINOPHEN 325 MG TAB PO PRN (22:33)
[2016-06-26] VITALS (14 sets, daily range): BP systolic 96–115; BP diastolic 66–74; PULSE 80–102; TEMP 36.3–37; O2SAT 92–98
[2016-06-26] MEDS: NYSTATIN CR 15 GM TUBE EXT SCH ×2 (07:27→21:20)
[2016-06-26] MEDS: METOLAZONE 5 MG TAB PO SCH (07:28)
[2016-06-26] MEDS: POTASSIUM CHLORIDE 20 MEQ TABCR PO SCH ×2 (07:28→21:19)
[2016-06-26] MEDS: GUAIFENESIN 600 MG TABCR PO SCH ×2 (07:28→21:18)
[2016-06-26] MEDS: MAGNESIUM OXIDE 400 MG TAB PO SCH (07:28)
[2016-06-26] MEDS: LISINOPRIL 5 MG TAB PO SCH (07:28)
[2016-06-26 07:30] LABS: BUN/CREATININE RATIO 28.7 (10-20); CALCIUM 9.8 mg/dl (8.5-10.1); CREATININE 0.79 mg/dl (0.60-1.20); POTASSIUM 2.7 mmol/L (3.5-5.1)
[2016-06-26] MEDS: ALBUT/IPRATROP 3MG/0.5MG NEB 3 ML VIAL INH SCH ×4 (07:36→19:20)
[2016-06-26] MEDS: INSULIN ASPART 100 UNITS/ML 3 ML PEN SC SCH ×4 (08:30→21:31)
[2016-06-26] MEDS: POTASSIUM CHLR 10 MEQ / WTR 10 MEQ in PREMIXED WATER 100 ML IV SCH ×2 (08:55→10:51)
[2016-06-26] MEDS ORDERED: INSULIN GLARGINE SOLOSTAR 100 UNITS/ML 3 ML PEN SC SCH (09:00)
[2016-06-26] MEDS ORDERED: FUROSEMIDE 80 MG TAB PO SCH (09:00)
[2016-06-26] MEDS: LEVETIRACETAM 500 MG TAB PO SCH ×2 (09:52→21:53)
--- NOTE | 2016-06-26 12:16 | PROGRESS NOTE ---
DATE: 06/26/2016 SUBJECTIVE: The patient is a 61-year-old female who presented with hypercapnia. She has had large diuresis over the past several days. Where she was hypercapnic and slightly acidotic on admission, she now appears on her most recent basic metabolic profile to be alkalotic with a carbon dioxide level of 55 and a potassium of 2.7. The metabolic alkalosis may be due to contraction alkalosis or a combination with compensation for hypercapnia. The low potassium may be from diuretics but also due to alkalosis. At this point, I would recommend that we hold her diuretics. Unfortunately, she did receive her oral Lasix and Zaroxolyn already this morning. I will obtain a blood gas to see what her pH level is prior to making further decisions regarding potassium supplementation. Otherwise, the patient looks well and is sitting in a chair comfortably relaxing. She is alert and oriented as well as conversive. Since admission she has lost 6 kilograms of fluid weight. OBJECTIVE: VITAL SIGNS: Blood pressure is 110/70, pulse is regular at 90 beats per minute. GENERAL: She is afebrile. HEENT: She is normocephalic. Pupils are equal and reactive to light. Extraocular muscles are intact bilaterally. NECK: The neck veins are flat. Carotids have good upstrokes bilaterally without bruits. Thyroid is nonpalpable. RESPIRATORY: Breath sounds equal bilaterally and clear to auscultation. CARDIOVASCULAR: Heart has a regular rhythm. Normal S1, S2. No S3, S4. No cardiac rubs or murmurs. GASTROINTESTINAL: Abdomen is soft, nontender without organomegaly. EXTREMITIES: Free of edema, digit clubbing, or cyanosis. NEUROLOGIC: Grossly intact. SKIN: Warm to touch. LYMPH NODES: Negative to palpation. LABORATORY DATA: Potassium is 2.7, carbon dioxide is 55, sodium is 136. IMPRESSION: 1. Hypoventilations syndrome. 2. Pulmonary hypertension. 3. Cor pulmonale. 4. Diabetes mellitus. 5. Schizoaffective disorder. RECOMMENDATIONS: As outlined above, stop the patient's Lasix and Zaroxolyn. I have ordered a blood gas and if she is significantly alkalotic then we may not have to replace her potassium. However, if she is pH neutral then additional supplementation of her potassium would be indicated.
--- NOTE | 2016-06-26 12:48 | Progress Note ---
Subjective Subjective Date of Service: Jun 26, 2016. Pt evaluation today including: conversation w/ patient, physical exam, chart review, review of studies, review of inpatient medication list Problem List Medical Problems: (1) Change in mental status Status: Acute (2) CHF (congestive heart failure) Status: Acute (3) CHF (congestive heart failure) Status: Acute (4) CO2 retention Status: Acute (5) Fall Status: Acute (6) Hyperglycemia Status: Acute (7) Hypokalemia Status: Acute (8) Hyponatremia Status: Acute (9) Hyponatremia Status: Acute (10) Hyponatremia Status: Acute (11) SOB (shortness of breath) Status: Acute (12) Weakness Status: Acute Review of Systems Constitutional: No fever ENT: No hearing loss Respiratory: No cough Cardiac: No chest pain Abdomen: No pain Female : No dysuria Neurologic: No memory loss Psychiatric: No depression symptoms Heme: No abnormal bleeding/bruising Endo: No fatigue Physical Exam Vital Signs Vital Signs Past 24 Hours: Date Time Temp Pulse Resp B/P Pulse Ox O2 Delivery O2 Flow Rate FiO2 06/26/16 11:34 86 18 94 Nasal Cannula 2.0 06/26/16 08:11 98 Nasal Cannula 2.0 06/26/16 07:36 95 18 94 Nasal Cannula 2.0 06/26/16 07:16 36.4 94 18 107/66 95 Nasal Cannula 3.0 06/26/16 04:00 92 BiPAP 2.0 06/26/16 04:00 37.0 82 19 101/67 92 BiPAP 2.0 06/26/16 00:00 96 BiPAP 2.0 06/25/16 23:44 74 94 2.0 06/25/16 23:16 36.6 85 20 109/74 96 Nasal Cannula 2.5 06/25/16 20:00 96 Nasal Cannula 2.0 06/25/16 19:28 81 18 96 Nasal Cannula 2.0 06/25/16 19:23 36.7 95 19 121/77 96 Nasal Cannula 2.0 06/25/16 16:00 36.8 97 24 116/77 96 Room Air 06/25/16 16:00 96 Nasal Cannula 2.0 06/25/16 15:36 81 18 94 Nasal Cannula 2.0 Physical Exam: General Appearance: WD/WN, no apparent distress Eyes: bilateral eyes normal inspection ENT: hearing grossly normal, pharynx normal Neck: supple, no JVD Respiratory/Chest: chest non-tender, normal breath sounds Cardiovascular: no edema, no JVD Abdomen: non tender, soft Extremities: normal range of motion, normal inspection 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: alert, oriented x 3 Skin: normal color Medications Medications: Current Inpatient Medications Medications (Trade) Dose Ordered Sig/Nanette Route Start Time Stop Time Status Last Admin Dose Admin Enoxaparin Sodium (Lovenox Inj) 40 mg Q24H SC 06/21/16 18:00 07/21/16 17:59 06/25/16 17:38 40 MG Acetaminophen (Tylenol Tab) 650 mg Q4H PRN PO 06/21/16 15:45 07/21/16 15:44 06/25/16 22:33 650 MG Al Hydrox/Mg Hydrox/Simethicone (Maalox Max Susp) 15 ml Q4H PRN PO 06/21/16 15:45 07/21/16 15:44 Magnesium Hydroxide (Milk Of Magnesia Susp) 30 ml Q12H PRN PO 06/21/16 15:45 07/21/16 15:44 Ondansetron HCl (Zofran Inj) 4 mg Q6H PRN IV 06/21/16 15:45 07/21/16 15:44 Polyethylene (Miralax Powder Packet) 17 gm DAILY PRN PO 06/21/16 15:45 07/21/16 15:44 Glucose (Glucose 40% Gel) 15-30 GRAMS 15 GRAMS... UD PRN PO 06/21/16 15:45 07/21/16 15:44 Glucose (Glucose Chew Tab) 4-8 Tablets 4 Tabl... UD PRN PO 06/21/16 15:45 07/21/16 15:44 Dextrose (Dextrose 50% 50ML Syringe) 25-50ML OF 50% DW IV FOR... UD PRN IV 06/21/16 15:45 07/21/16 15:44 Glucagon 1 mg 1 mg UD PRN SQ 06/21/16 15:45 07/21/16 15:44 Ceftriaxone Sodium/Dextrose (Rocephin Inj/ Dextrose Add-[place] 50ML) 50 ml @ 100 mls/hr Q24H IV 06/21/16 18:00 06/28/16 17:59 06/25/16 17:38 100 MLS/HR Albuterol/ Ipratropium (Duoneb) 3 ml QIDR INH 06/21/16 16:00 07/21/16 15:59 06/26/16 11:34 3 ML Insulin Aspart (novoLOG ASPART) SLIDING SCALE G... ACHS SC 06/21/16 16:00 07/21/16 15:59 06/26/16 12:32 1 UNITS Lisinopril (Zestril Tab) 5 mg QAM PO 06/22/16 09:00 07/22/16 08:59 06/26/16 07:28 5 MG [place] Carbonate (Lithobid Tab) 600 mg HS PO 06/21/16 21:00 07/21/16 20:59 06/25/16 20:26 600 MG Magnesium Oxide (Mag-Ox Tab) 400 mg QAM PO 06/22/16 09:00 07/22/16 08:59 06/26/16 07:28 400 MG Potassium Chloride (Klor-Con Tab) 60 meq QAM PO 06/22/16 09:00 07/22/16 08:59 06/26/16 07:28 60 MEQ Guaifenesin (Mucinex Contr Rel Tab) 600 mg Q12 PO 06/21/16 21:00 07/21/16 20:59 06/26/16 07:28 600 MG Potassium Chloride (Klor-Con Tab) 40 meq PM PO 06/21/16 21:00 07/21/16 20:59 06/25/16 20:27 40 MEQ Nystatin (Mycostatin Crm) 1 appln BID EXT 06/24/16 09:45 07/24/16 09:44 06/26/16 07:27 1 APPLN Prednisone (PredniSONE TAB) 30 mg DAILY PO 06/26/16 09:00 07/26/16 08:59 06/26/16 09:52 30 MG Levetiracetam (Keppra Tab) 500 mg BID PO 06/26/16 09:00 07/26/16 08:59 06/26/16 09:52 500 MG Laboratory Data Labs: Last 24 Hours Test 06/25/16 15:50 06/25/16 20:09 06/26/16 05:51 06/26/16 06:35 Sodium Level 129 mmol/L 136 mmol/L Potassium Level 3.7 mmol/L 2.7 mmol/L Chloride Level 75 mmol/L 77 mmol/L Carbon Dioxide Level 44 mmol/L 55 mmol/L Anion Gap 10.0 mmol/L 4.0 mmol/L Blood Urea Nitrogen 26 mg/dl 23 mg/dl Creatinine 0.85 mg/dl 0.79 mg/dl Est Creatinine Clear Calc Drug Dose 77.6 ml/min 83.3 ml/min Estimated GFR () 85.7 93.6 Estimated GFR (Non- 74.0 80.8 BUN/Creatinine Ratio 30.0 28.7 Random Glucose 337 mg/dl 52 mg/dl Calcium Level 9.3 mg/dl 9.8 mg/dl Magnesium Level 2.2 mg/dl Beta-Hydroxybutyric Acid 3.20 mg/dL Bedside Glucose 186 mg/dl 55 mg/dl Test 06/26/16 06:36 06/26/16 06:52 06/26/16 07:09 06/26/16 11:26 Bedside Glucose 52 mg/dl 67 mg/dl 104 mg/dl Test 06/26/16 11:53 Bedside Glucose 188 mg/dl Assessment and Plan 61 y/o female with a history of CHF, respiratory failure, DM II, HTN, seizure disorder, and bipolar disorder who presented for a direct admission on 06/21 with cough, lethargy, weakness and confusion. Cough for several weeks, productive with yellow sputum in last few days, myalgias. No shortness of breath. On 2L [place] oxygen at home continuous. CXR mild pulmonary edema. ABG on admission: pH 7.3, pCO2 91, pO2 71, HCO3 44. 1. Acute hypercarbic respiratory failure on top of chronic respiratory failure sec to obesity hypoventilation syndrome, pulmonary edema cont telemetry had pulse ox nocturnal study and she does not qualify for BIPAP appreciated pulm input, may need pulm rehab patient is currently stable on 2 liters NC 02 flu is negative Lactic acid nl Blood cultures pending cont Rocephin 1 gm IV qd cont Mucinex 600 mg PO BID cont Incentive spirometry Duonebs QIDR and q2h prn SOB/wheezing CPAP for nighttime? will d/w pulm since it is making her feel like choking at night continue po prednisone rapid taper Chronic stable CHF stop Lasix to 40 mg IV BID and hold Zaroxolyn, due to intravascular depletion Continue metolazone 5 mg PO BID Continue KCl supplements Diabetes mellitus type 2--Last HgbA1c 7.7 stop Lantus 10 units due to hypoglycemia Insulin sliding scale Check BSGs q ac and qhs HTN--stable Continue lisinopril 5 mg PO qd Seizure disorder Continue Keppra 500 mg po BID Bipolar disorder Continue lithium 600 mg PO qhs DVT prophylaxis Enoxaparin 40 mg SC q24h JAYDON smith and SCDs Code Status FULL pt/ot eval: rehab ([facility]), hopefully on Tuesday
[2016-06-26 13:09] LABS: ARTERIAL BLD GAS O2 SATURATION 91.8 % (90-95); ARTERIAL BLOOD GAS BASE EXCESS 26.3 mEq/L (-9-1.8); ARTERIAL BLOOD GAS HCO3 57 mmol/L (19-24); ARTERIAL BLOOD GAS PO2 65 mm/Hg (80-95); ARTERIAL BLOOD GAS pH 7.43 (7.35-7.45)
[2016-06-26 13:10] LABS: ALLEN TEST POS (POS); O2 ADMINISTRATION 2 LITERS
[2016-06-26] MEDS: ACETAMINOPHEN 325 MG TAB PO PRN (13:25)
[2016-06-26] MEDS: ENOXAPARIN 40 MG/0.4 ML SYR SC SCH (17:39)
[2016-06-26] MEDS: CEFTRIAXONE SOD INJ 1 GM in DEXTROSE 5% ADD-VANTAGE 50ML 50 ML IV SCH (17:48)
[2016-06-26] MEDS: LITHIUM CARBONATE SR 300 MG TAB (LITHOBID) PO SCH (21:19)
[2016-06-27] VITALS (17 sets, daily range): BP systolic 99–130; BP diastolic 58–85; PULSE 84–97; TEMP 36.3–36.9; O2SAT 90–98
[2016-06-27] MEDS: ACETAMINOPHEN 325 MG TAB PO PRN (04:38)
[2016-06-27 06:35] LABS: HEMATOCRIT 43.1 % (37-47); MEAN CELL VOLUME 90.2 fL (80-100); MEAN CORPUSCULAR HGB CONC 29.9 g/dl (32-36); MEAN PLATELET VOLUME 9.8 fL (7.4-10.4); PLATELET COUNT 192 K/uL (130-400); RED BLOOD COUNT 4.78 M/uL (4.2-5.4); WHITE BLOOD COUNT 7.49 K/uL (4.8-10.8)
[2016-06-27] MEDS: INSULIN ASPART 100 UNITS/ML 3 ML PEN SC SCH ×4 (07:00→20:37)
[2016-06-27 07:03] LABS: CREATININE 0.73 mg/dl (0.60-1.20)
[2016-06-27] MEDS: POTASSIUM CHLORIDE 20 MEQ TABCR PO SCH ×2 (07:14→20:31)
[2016-06-27] MEDS: NYSTATIN CR 15 GM TUBE EXT SCH ×2 (07:14→20:29)
[2016-06-27] MEDS: MAGNESIUM OXIDE 400 MG TAB PO SCH (07:14)
[2016-06-27] MEDS: LISINOPRIL 5 MG TAB PO SCH (07:14)
[2016-06-27] MEDS: GUAIFENESIN 600 MG TABCR PO SCH ×2 (07:14→20:31)
[2016-06-27] MEDS: LEVETIRACETAM 500 MG TAB PO SCH ×2 (07:14→20:30)
[2016-06-27] MEDS: ALBUT/IPRATROP 3MG/0.5MG NEB 3 ML VIAL INH SCH ×4 (08:13→19:21)
[2016-06-27 09:45] LABS: CALCIUM 9.9 mg/dl (8.5-10.1); CREATININE 0.8 mg/dl (0.60-1.20); POTASSIUM 3.3 mmol/L (3.5-5.1)
[2016-06-27 10:15] LABS: ARTERIAL BLD GAS O2 SATURATION 90.8 % (90-95); ARTERIAL BLOOD GAS BASE EXCESS 23.4 mEq/L (-9-1.8); ARTERIAL BLOOD GAS HCO3 53 mmol/L (19-24); ARTERIAL BLOOD GAS PO2 66 mm/Hg (80-95)
[2016-06-27 10:16] LABS: ALLEN TEST POS (POS); O2 ADMINISTRATION 2 LITERS
--- NOTE | 2016-06-27 13:31 | PROGRESS NOTE ---
DATE: 06/27/2016 SUBJECTIVE: The patient is a 61-year-old female who was admitted with hypercapnic respiratory failure and mental status changes. Yesterday, on her basic medical profile, she was noted to have high level of CO2 at 55. This was metabolic compensation for her hypercapnia as her ABG revealed a pH of 7.4. The patient had low potassium at 2.7 and that was supplemented. Her diuretics were held yesterday. Her BMP today reveal potassium of 3.3 with a carbon dioxide level of 48. She had an uneventful night and is sitting in a chair comfortably. OBJECTIVE: VITAL SIGNS: Blood pressure is 130/80, pulse is regular at 90 beats per minute. GENERAL: She is afebrile. HEENT: She is normocephalic. Pupils are equal and reactive to light. Extraocular muscles are intact bilaterally. NECK: The neck veins are flat. Carotids have good upstrokes bilaterally without bruits. Thyroid is nonpalpable. RESPIRATORY: Breath sounds equal bilaterally and clear to auscultation. CARDIOVASCULAR: Heart has a regular rhythm. Normal S1, S2. No S3, S4. No cardiac rubs or murmurs. GASTROINTESTINAL: Abdomen is soft, nontender without organomegaly. EXTREMITIES: Free of edema, digit clubbing, or cyanosis. NEUROLOGIC: Grossly intact. SKIN: Warm to touch. LYMPH NODES: Negative to palpation. IMPRESSION: 1. Improved hypokalemia. 2. Metabolic alkalosis compensating for hypercapnia. 3. Hypoventilation syndrome. 4. Pulmonary hypertension. 5. Diabetes mellitus. 6. Cor pulmonale. 7. Schizoaffective disorder. RECOMMENDATIONS: I would continue to hold the patient's diuretics for today. I did write to have her Lasix restarted tomorrow. She will eventually need to have her Zaroxolyn restarted, but I think that should be done on a daily basis. Otherwise, the patient remained stable.
--- NOTE | 2016-06-27 14:37 | Progress Note ---
Subjective Subjective Date of Service: Jun 27, 2016. Pt evaluation today including: conversation w/ patient, physical exam, chart review, review of studies, review of inpatient medication list Notes: patient is more lethargic today Problem List Medical Problems: (1) Change in mental status Status: Acute (2) CHF (congestive heart failure) Status: Acute (3) CHF (congestive heart failure) Status: Acute (4) CO2 retention Status: Acute (5) Fall Status: Acute (6) Hyperglycemia Status: Acute (7) Hypokalemia Status: Acute (8) Hyponatremia Status: Acute (9) Hyponatremia Status: Acute (10) Hyponatremia Status: Acute (11) SOB (shortness of breath) Status: Acute (12) Weakness Status: Acute Review of Systems Constitutional: No fever Eyes: No worsening of vision ENT: No hearing loss Respiratory: No cough Cardiac: No chest pain Abdomen: No pain Female : No dysuria Neurologic: No memory loss Physical Exam Vital Signs Vital Signs Past 24 Hours: Date Time Temp Pulse Resp B/P Pulse Ox O2 Delivery O2 Flow Rate FiO2 06/27/16 12:33 98 Nasal Cannula 2.0 06/27/16 11:41 36.8 96 20 130/79 94 Nasal Cannula 3.0 06/27/16 11:29 96 16 94 Nasal Cannula 2.0 06/27/16 08:19 98 Nasal Cannula 2.0 06/27/16 08:17 90 18 97 Nasal Cannula 2.0 06/27/16 08:03 36.3 90 18 111/74 97 Nasal Cannula 3.0 06/27/16 04:00 36.9 92 18 114/68 92 BiPAP 06/27/16 04:00 92 BiPAP 2.0 06/27/16 00:06 36.6 84 107/64 91 BiPAP 06/27/16 00:00 91 BiPAP 2.0 06/26/16 22:42 81 93 2.0 06/26/16 20:00 95 Nasal Cannula 2.0 06/26/16 20:00 36.3 102 112/74 95 Nasal Cannula 2.0 06/26/16 19:24 102 18 97 Nasal Cannula 2.0 06/26/16 17:04 98 Nasal Cannula 2.0 06/26/16 16:26 37.0 97 18 115/72 93 Nasal Cannula 2.0 06/26/16 15:36 80 18 95 Nasal Cannula 2.0 Physical Exam: General Appearance: WD/WN, no apparent distress Eyes: bilateral eyes normal inspection ENT: hearing grossly normal, pharynx normal Neck: supple, no JVD Respiratory/Chest: lungs clear, no respiratory distress Cardiovascular: regular rate, rhythm, no JVD Abdomen: normal bowel sounds, soft Extremities: non-tender, normal inspection 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: no motor/sensory deficits, alert, + pertinent finding ( lethargic) Skin: normal color Medications Medications: Current Inpatient Medications Medications (Trade) Dose Ordered Sig/Nanette Route Start Time Stop Time Status Last Admin Dose Admin Enoxaparin Sodium (Lovenox Inj) 40 mg Q24H SC 06/21/16 18:00 07/21/16 17:59 06/26/16 17:39 40 MG Acetaminophen (Tylenol Tab) 650 mg Q4H PRN PO 06/21/16 15:45 07/21/16 15:44 06/27/16 04:38 650 MG Al Hydrox/Mg Hydrox/Simethicone (Maalox Max Susp) 15 ml Q4H PRN PO 06/21/16 15:45 07/21/16 15:44 Magnesium Hydroxide (Milk Of Magnesia Susp) 30 ml Q12H PRN PO 06/21/16 15:45 07/21/16 15:44 Ondansetron HCl (Zofran Inj) 4 mg Q6H PRN IV 06/21/16 15:45 07/21/16 15:44 Polyethylene (Miralax Powder Packet) 17 gm DAILY PRN PO 06/21/16 15:45 07/21/16 15:44 Glucose (Glucose 40% Gel) 15-30 GRAMS 15 GRAMS... UD PRN PO 06/21/16 15:45 07/21/16 15:44 Glucose (Glucose Chew Tab) 4-8 Tablets 4 Tabl... UD PRN PO 06/21/16 15:45 07/21/16 15:44 Dextrose (Dextrose 50% 50ML Syringe) 25-50ML OF 50% DW IV FOR... UD PRN IV 06/21/16 15:45 07/21/16 15:44 Glucagon 1 mg 1 mg UD PRN SQ 06/21/16 15:45 07/21/16 15:44 Ceftriaxone Sodium/Dextrose (Rocephin Inj/ Dextrose Add-Purmela 50ML) 50 ml @ 100 mls/hr Q24H IV 06/21/16 18:00 06/28/16 17:59 06/26/16 17:48 100 MLS/HR Albuterol/ Ipratropium (Duoneb) 3 ml QIDR INH 06/21/16 16:00 07/21/16 15:59 06/27/16 11:29 3 ML Insulin Aspart (novoLOG ASPART) SLIDING SCALE G... ACHS SC 06/21/16 16:00 07/21/16 15:59 06/27/16 12:23 6 UNITS Lisinopril (Zestril Tab) 5 mg QAM PO 06/22/16 09:00 07/22/16 08:59 06/27/16 07:14 5 MG Grayling Carbonate (Lithobid Tab) 600 mg HS PO 06/21/16 21:00 07/21/16 20:59 06/26/16 21:19 600 MG Magnesium Oxide (Mag-Ox Tab) 400 mg QAM PO 06/22/16 09:00 07/22/16 08:59 06/27/16 07:14 400 MG Potassium Chloride (Klor-Con Tab) 60 meq QAM PO 06/22/16 09:00 07/22/16 08:59 06/27/16 07:14 60 MEQ Guaifenesin (Mucinex Contr Rel Tab) 600 mg Q12 PO 06/21/16 21:00 07/21/16 20:59 06/27/16 07:14 600 MG Potassium Chloride (Klor-Con Tab) 40 meq PM PO 06/21/16 21:00 07/21/16 20:59 06/26/16 21:19 40 MEQ Nystatin (Mycostatin Crm) 1 appln BID EXT 06/24/16 09:45 07/24/16 09:44 06/27/16 07:14 1 APPLN Levetiracetam (Keppra Tab) 500 mg BID PO 06/26/16 09:00 07/26/16 08:59 06/27/16 07:14 500 MG Furosemide (Lasix tab) 80 mg BID17 PO 06/28/16 09:00 07/28/16 08:59 Laboratory Data Labs: Last 24 Hours Test 06/26/16 15:57 06/26/16 20:01 06/27/16 06:10 06/27/16 06:30 Bedside Glucose 382 mg/dl 374 mg/dl 150 mg/dl White Blood Count 7.49 K/uL Red Blood Count 4.78 M/uL Hemoglobin 12.9 g/dL Hematocrit 43.1 % Mean Corpuscular Volume 90.2 fL Mean Corpuscular Hemoglobin 27.0 pg Mean Corpuscular Hemoglobin Concent 29.9 g/dl RDW Standard Deviation 54.0 fL RDW Coefficient of Variation 16.3 % Platelet Count 192 K/uL Mean Platelet Volume 9.8 fL Sodium Level 130 mmol/L Potassium Level 3.3 mmol/L Chloride Level 76 mmol/L Carbon Dioxide Level 48 mmol/L Anion Gap 6.0 mmol/L Blood Urea Nitrogen 21 mg/dl Creatinine 0.80 mg/dl Est Creatinine Clear Calc Drug Dose 81.7 ml/min Estimated GFR () 92.2 Estimated GFR (Non- 79.6 BUN/Creatinine Ratio 26.0 Random Glucose 149 mg/dl Calcium Level 9.9 mg/dl Test 06/27/16 10:00 Arterial Blood pH 7.40 Arterial Blood Partial Pressure CO2 88 mmHg Arterial Blood Partial Pressure O2 66 mm/Hg Arterial Blood HCO3 53 mmol/L Arterial Blood Oxygen Saturation 90.8 % Arterial Blood Base Excess 23.4 mEq/L Arterial Blood Gas Delivery 2 LITERS Christiano Test POS Assessment and Plan 61 y/o female with a history of CHF, respiratory failure, DM II, HTN, seizure disorder, and bipolar disorder who presented for a direct admission on 06/21 with cough, lethargy, weakness and confusion. Cough for several weeks, productive with yellow sputum in last few days, myalgias. No shortness of breath. On 2L NC oxygen at home continuous. CXR mild pulmonary edema. ABG on admission: pH 7.3, pCO2 91, pO2 71, HCO3 44. 1. Acute hypercarbic respiratory failure on top of chronic respiratory failure sec to obesity hypoventilation syndrome, pulmonary edema cont telemetry had pulse ox nocturnal study and she does not qualify for BIPAP appreciated pulm input, may need pulm rehab patient is currently stable on 2 liters NC 02 flu is negative Lactic acid nl Blood cultures neg cont Rocephin 1 gm IV qd cont Mucinex 600 mg PO BID cont Incentive spirometry Duonebs QIDR and q2h prn SOB/wheezing CPAP for nighttime? will d/w pulm since it is making her feel like choking at night stop po prednisone recheck CXR abg compensated metabolic changes, contraction alkalosis Chronic stable CHF stop Lasix to 40 mg IV BID and restart tomorrow am as per cards hold metolazone 5 mg PO BID Continue KCl supplements Diabetes mellitus type 2--Last HgbA1c 7.7 stop Lantus 10 units due to hypoglycemia Insulin sliding scale Check BSGs q ac and qhs HTN--stable Continue lisinopril 5 mg PO qd Seizure disorder Continue Keppra 500 mg po BID Bipolar disorder Continue lithium 600 mg PO qhs DVT prophylaxis Enoxaparin 40 mg SC q24h JAYDON smith and SCDs Code Status FULL pt/ot eval: rehab ([facility]), hopefully early next week
--- NOTE | 2016-06-27 15:05 | DIAGNOSTIC IMAGING REPORT ---
SINGLE VIEW CHEST CLINICAL HISTORY: Edema. FINDINGS: An AP, portable, upright chest radiograph is compared to study dated 06/23/2016. The examination is degraded by portable technique, large body habitus, and patient rotation. The heart is enlarged and there is pulmonary vascular congestion. There are low lung volumes and bibasilar consolidation. Small pleural effusions are suspected. No pneumothorax is identified. The skeletal structures are osteopenic. The bony thorax is grossly intact. IMPRESSION: 1. Cardiomegaly with evidence of congestive failure. This is similar to the 06/23/2016 examination. 2. Suspect small pleural effusions. Bibasilar consolidation likely represents atelectasis. Clinical correlation will be required. Electronically signed by: Ke Ojeda M.D. 06/27/2016 3:03 PM Dictated Date/Time: 06/27/2016 3:02 PM
[2016-06-27] MEDS: POTASSIUM CHLR 10 MEQ / WTR 10 MEQ in PREMIXED WATER 100 ML IV SCH ×2 (15:33→18:08)
[2016-06-27] MEDS ORDERED: INSULIN GLARGINE PER UNIT 8 UNITS in SYRINGE 0 ML SC STA (16:37)
[2016-06-27] MEDS: ENOXAPARIN 40 MG/0.4 ML SYR SC SCH (17:00)
[2016-06-27] MEDS ORDERED: LANTUS PER UNIT CHARGE SQ ONE (17:15)
[2016-06-27] MEDS: CEFTRIAXONE SOD INJ 1 GM in DEXTROSE 5% ADD-VANTAGE 50ML 50 ML IV SCH (20:27)
[2016-06-27] MEDS: LITHIUM CARBONATE SR 300 MG TAB (LITHOBID) PO SCH (20:30)
[2016-06-28] VITALS (11 sets, daily range): BP systolic 92–115; BP diastolic 52–74; PULSE 64–88; TEMP 36.2–36.9; O2SAT 90–99
[2016-06-28] MEDS ORDERED: NURSING DECISION MEDICATION ORDER SCH (07:00)
[2016-06-28] MEDS ORDERED: COUGH DROP (SUGAR FREE) LOZ 24 LOZ/1 BOX PO PRN (07:15)
[2016-06-28] MEDS: ALBUT/IPRATROP 3MG/0.5MG NEB 3 ML VIAL INH SCH ×4 (07:17→19:43)
[2016-06-28] MEDS: NYSTATIN CR 15 GM TUBE EXT SCH ×2 (07:57→20:20)
[2016-06-28] MEDS: LEVETIRACETAM 500 MG TAB PO SCH ×2 (07:58→20:22)
[2016-06-28] MEDS: FUROSEMIDE 40 MG TAB PO SCH ×2 (07:58→17:13)
[2016-06-28] MEDS: POTASSIUM CHLORIDE 20 MEQ TABCR PO SCH ×2 (07:59→20:21)
[2016-06-28] MEDS: GUAIFENESIN 600 MG TABCR PO SCH ×2 (07:59→20:22)
[2016-06-28] MEDS: LISINOPRIL 5 MG TAB PO SCH (07:59)
[2016-06-28] MEDS: MAGNESIUM OXIDE 400 MG TAB PO SCH (08:00)
[2016-06-28] MEDS: INSULIN ASPART 100 UNITS/ML 3 ML PEN SC SCH ×5 (08:03→23:51)
--- NOTE | 2016-06-28 08:05 | PROGRESS NOTE ---
DATE: 06/28/2016 SUBJECTIVE: The patient is comfortable sitting upright today in the chair and feels comfortable. I spoke to her about the use of BiPAP. She states that she feels like she is suffocating at home with her BiPAP settings at home. She was able to wear it last night without any difficulty in the hospital. Would recommend changing the settings at home to the same settings that she has here. She did not remember me seeing her in the past. I have seen her as an outpatient several times and reviewed her records. I also did a pulmonary consultation on her when she was here for anasarca in December 2014. Nonetheless, she feels comfortable this morning. She has hypoventilation syndrome associated with some noncompliance in case she will not wear the BiPAP. She carries a history of severe pulmonary hypertension, has never been placed on any medications to improve the pulmonary hypertension. She had been evaluated by Dr. Franklin during her hospitalization last year and during the stay in the intensive care unit as well. Her blood gases generally revealed pCO2 in the 80 range. She presented with significant shortness of breath at this time associated with some lethargy. Presently, she states she is doing better. PHYSICAL EXAMINATION: VITAL SIGNS: Stable and she is afebrile. Blood pressure 113/70, oxygen saturations 95% on 2 liters and she is afebrile. Her I\T\Os was 1855 in and 4350 out. Weight is 98 kilograms and that has been stable even though she has had a significant diuresis over the last 5 days. Nurses' notes revealed that she was fairly compliant with BiPAP. When I came in the room at 6:00 this morning it was removed, but according to the notes up to 0400 she was resting comfortably with BiPAP in place. HEENT: Reveals a small posterior pharynx with normal nose, septum is midline. She has a large tongue, normal soft palate. Mandibular exam unremarkable. Thyroid nonpalpable. Trachea midline. No adenopathy is noted. Expansion of the thorax is good with deep inspiration. HEART: Regular rate and rhythm. Second heart sounds are accentuated. LUNGS: Clear with decreased breath sounds bilaterally. ABDOMEN: Soft, nontender. She has no cyanosis, clubbing or edema. DIAGNOSTIC DATA: The chest x-ray revealed cardiomegaly and evidence of heart failure with probable small pleural effusions and some atelectatic changes at the lung bases. White count 7.49, hemoglobin was 12.9. Blood gas on the revealed a pH 7.4, pCO2 of 88, pO2 of 66 on 2 liters. Sugars have been in the 300 range. CO2 is elevated at 48 on the electrolytes. Influenza swabs are negative. Drug screen was negative. IMPRESSION: 1. Profound hypercapnia with hypoventilation syndrome. 2. Severe pulmonary hypertension. 3. Schizoaffective disorder. RECOMMENDATIONS: 1. At this point, I would continue on her present BiPAP settings. Her machine at home will need to have the same settings. I would recommend expiratory pressure of 6 with a rate of 15. If she could use that in our hospital here before she is discharged then prescription could be sent to the [facility] before she leaves the hospital and that could be set up for her at home. Her main complaint is that she feels like she is suffocating on the machine at home and she will not wear it. She wears it here fine. 2. At this point, perhaps starting Revatio 20 mg 3 times daily would be helpful for the pulmonary hypertension. 3. At this point, I will continue on the ceftriaxone since I cannot tell whether the basilar changes are consistent with atelectasis or pneumonia. I favor atelectasis at this point, but I think 7 days of ceftriaxone would certainly be appropriate. I discussed this with Ms. Barone today and she was agreeable.
[2016-06-28 08:29] LABS: COMPLETE YES; EOS % 2.1 %; IG% 0.3 %; LYMPH % 13.5 %; LYMPH ABS # 0.96 K/uL (1.2-3.4); MEAN CELL VOLUME 87.6 fL (80-100); MEAN CORPUSCULAR HEMOGLOBIN 26.3 pg (25-34); MEAN PLATELET VOLUME 10.2 fL (7.4-10.4); MONO % 10.4 %; NEUT % 73.7 %; PLATELET COUNT 197 K/uL (130-400); RED BLOOD COUNT 4.68 M/uL (4.2-5.4)
[2016-06-28 09:01] LABS: BUN/CREATININE RATIO 22.5 (10-20); CALCIUM 10.2 mg/dl (8.5-10.1); CREATININE 0.8 mg/dl (0.60-1.20); POTASSIUM 4.4 mmol/L (3.5-5.1)
--- NOTE | 2016-06-28 09:58 | Cardiology Follow-Up ---
Subjective General Date of Service: Jun 28, 2016. Chief Complaint: SOB Pt evaluation today including: conversation w/ patient, physical exam, chart review, lab review, review of studies, review of inpatient medication list History of Present Illness Patient states she feels "much better" this AM. Offers no complaints at this time. Denies SOB or CP. No dizziness, syncope or near syncope. No orthopnea, PND. Allergies Coded Allergies: No Known Allergies (Verified , `, 06/21/16) Social History Smoking Status: Never Smoker Hx Tobacco Use In Past Year?: No Hx Alcohol Use - Type And Amou: No Hx Substance Use - Type And Am: No Problem List Medical Problems: (1) Change in mental status Status: Acute (2) CHF (congestive heart failure) Status: Acute (3) CHF (congestive heart failure) Status: Acute (4) CO2 retention Status: Acute (5) Fall Status: Acute (6) Hyperglycemia Status: Acute (7) Hypokalemia Status: Acute (8) Hyponatremia Status: Acute (9) Hyponatremia Status: Acute (10) Hyponatremia Status: Acute (11) SOB (shortness of breath) Status: Acute (12) Weakness Status: Acute Review of Systems Respiratory: No cough, No dyspnea at rest, No hemoptysis, No wheezing Cardiac: No PND, No chest pain, No edema, No orthopnea, No palpitations Physical Exam Vital Signs Last Vital Signs Documentation Date Time Temp Pulse Resp B/P Pulse Ox O2 Delivery O2 Flow Rate FiO2 06/28/16 07:50 36.6 77 22 115/74 99 Nasal Cannula 2.0 Physical Exam Constitutional: General Apperance: overweight Level of Distress: NAD, chronically ill Psychiatric: Mental Status: active & alert Orientation: to time, to place, to person Head: normocephalic Eyes: Pupils: PERRLA Neck: supple Lungs: Auscultation: no wheezing, no rales/crackles, deminished air movement Cardiovascular: Heart Auscultation: RRR, normal S1, normal S2, no murmurs Abdomen: Bowel Sounds: normal Inspection & Palpation: soft, non-distended, no tenderness, guarding & rebound Extremities: edema (trace pretibial edema b/l) Assessment and Plan Assessment and Plan IMPRESSION: 1. Respiratory failure secondary to hypercapnea - clinically improving 2. Hypokalemia 3. Hypoventilation syndrome. 4. Pulmonary hypertension. 5. Diabetes mellitus. 6. Cor pulmonale. 7. Schizoaffective disorder. 8. Cough, bronchitis RECOMMENDATIONS: oral furosemide 80 mg BID resumed this AM. Monitor potassium To resume metolazone 5 mg daily on discharge Continue all other cardiac medications at this time. Case to be discussed with Dr. Ramos. Will follow. CARDIOLOGY ATTENDING ADDENDUM: The patient was seen and personally examined. Agree with Caitlin Bartlett PA-C's findings and plans as documented above. S: pt without complaint. Cough observed. Iniguez catheter still in place Ext: trace edema Imp/ plan: as above. Fadi Ramos DO Laboratory Results Last 24 Hours Test 06/27/16 10:00 06/27/16 16:06 06/27/16 16:07 06/27/16 20:01 Arterial Blood pH 7.40 Arterial Blood Partial Pressure CO2 88 mmHg Arterial Blood Partial Pressure O2 66 mm/Hg Arterial Blood HCO3 53 mmol/L Arterial Blood Oxygen Saturation 90.8 % Arterial Blood Base Excess 23.4 mEq/L Arterial Blood Gas Delivery 2 LITERS Christiano Test POS Bedside Glucose 342 mg/dl 360 mg/dl 348 mg/dl Test 06/27/16 20:02 06/28/16 06:10 06/28/16 08:21 Bedside Glucose 364 mg/dl 249 mg/dl White Blood Count 7.10 K/uL Red Blood Count 4.68 M/uL Hemoglobin 12.3 g/dL Hematocrit 41.0 % Mean Corpuscular Volume 87.6 fL Mean Corpuscular Hemoglobin 26.3 pg Mean Corpuscular Hemoglobin Concent 30.0 g/dl Platelet Count 197 K/uL Mean Platelet Volume 10.2 fL Neutrophils (%) (Auto) 73.7 % Lymphocytes (%) (Auto) 13.5 % Monocytes (%) (Auto) 10.4 % Eosinophils (%) (Auto) 2.1 % Basophils (%) (Auto) 0.0 % Neutrophils # (Auto) 5.23 K/uL Lymphocytes # (Auto) 0.96 K/uL Monocytes # (Auto) 0.74 K/uL Eosinophils # (Auto) 0.15 K/uL Basophils # (Auto) 0.00 K/uL RDW Standard Deviation 52.0 fL RDW Coefficient of Variation 16.4 % Immature Granulocyte % (Auto) 0.3 % Immature Granulocyte # (Auto) 0.02 K/uL Sodium Level 129 mmol/L Potassium Level 4.4 mmol/L Chloride Level 81 mmol/L Carbon Dioxide Level 43 mmol/L Anion Gap 5.0 mmol/L Blood Urea Nitrogen 18 mg/dl Creatinine 0.80 mg/dl Est Creatinine Clear Calc Drug Dose 82.4 ml/min Estimated GFR () 92.2 Estimated GFR (Non- 79.6 BUN/Creatinine Ratio 22.5 Random Glucose 294 mg/dl Calcium Level 10.2 mg/dl Magnesium Level 2.3 mg/dl Albumin 3.1 gm/dl
[2016-06-28] MEDS ORDERED: PHARMACY GLYCEMIC MGMT CONSULT PRN (12:17)
[2016-06-28] MEDS ORDERED: INSULIN REGULAR 5 UNITS in SYRINGE 4.95 ML IV SCH (12:30)
--- NOTE | 2016-06-28 12:37 | Progress Note ---
Subjective Date of Service: Jun 28, 2016. Subjective Pt evaluation today including: conversation w/ patient, chart review, lab review, review of studies Voiding: no voiding problems Problem List Medical Problems: (1) Change in mental status Status: Acute (2) CHF (congestive heart failure) Status: Acute (3) CHF (congestive heart failure) Status: Acute (4) CO2 retention Status: Acute (5) Fall Status: Acute (6) Hyperglycemia Status: Acute (7) Hypokalemia Status: Acute (8) Hyponatremia Status: Acute (9) Hyponatremia Status: Acute (10) Hyponatremia Status: Acute (11) SOB (shortness of breath) Status: Acute (12) Weakness Status: Acute Review of Systems Constitutional: No chills, No fever Eyes: No worsening of vision ENT: No hearing loss Respiratory: + cough, + see HPI, + shortness of breath Cardiac: No chest pain, No edema Abdomen: No nausea, No pain, No vomiting Musculoskeletal: No joint pain Female : No dysuria Neurologic: No paralysis Psychiatric: No depression symptoms Skin: No rash Medications Current Inpatient Medications Medications (Trade) Dose Ordered Sig/Nanette Route Start Time Stop Time Status Last Admin Dose Admin Enoxaparin Sodium (Lovenox Inj) 40 mg Q24H SC 06/21/16 18:00 07/21/16 17:59 06/27/16 17:00 40 MG Acetaminophen (Tylenol Tab) 650 mg Q4H PRN PO 06/21/16 15:45 07/21/16 15:44 06/27/16 04:38 650 MG Al Hydrox/Mg Hydrox/Simethicone (Maalox Max Susp) 15 ml Q4H PRN PO 06/21/16 15:45 07/21/16 15:44 Magnesium Hydroxide (Milk Of Magnesia Susp) 30 ml Q12H PRN PO 06/21/16 15:45 07/21/16 15:44 Ondansetron HCl (Zofran Inj) 4 mg Q6H PRN IV 06/21/16 15:45 07/21/16 15:44 Polyethylene (Miralax Powder Packet) 17 gm DAILY PRN PO 06/21/16 15:45 07/21/16 15:44 Glucose (Glucose 40% Gel) 15-30 GRAMS 15 GRAMS... UD PRN PO 06/21/16 15:45 07/21/16 15:44 Glucose (Glucose Chew Tab) 4-8 Tablets 4 Tabl... UD PRN PO 06/21/16 15:45 07/21/16 15:44 Dextrose (Dextrose 50% 50ML Syringe) 25-50ML OF 50% DW IV FOR... UD PRN IV 06/21/16 15:45 07/21/16 15:44 Glucagon 1 mg 1 mg UD PRN SQ 06/21/16 15:45 07/21/16 15:44 Ceftriaxone Sodium/Dextrose (Rocephin Inj/ Dextrose Add-[place] 50ML) 50 ml @ 100 mls/hr Q24H IV 06/21/16 18:00 06/28/16 17:59 06/27/16 20:27 100 MLS/HR Albuterol/ Ipratropium (Duoneb) 3 ml QIDR INH 06/21/16 16:00 07/21/16 15:59 06/28/16 11:16 3 ML Insulin Aspart (novoLOG ASPART) SLIDING SCALE G... ACHS SC 06/21/16 16:00 07/21/16 15:59 06/28/16 08:03 3 UNITS Lisinopril (Zestril Tab) 5 mg QAM PO 06/22/16 09:00 07/22/16 08:59 06/28/16 07:59 5 MG [place] Carbonate (Lithobid Tab) 600 mg HS PO 06/21/16 21:00 07/21/16 20:59 06/27/16 20:30 600 MG Magnesium Oxide (Mag-Ox Tab) 400 mg QAM PO 06/22/16 09:00 07/22/16 08:59 06/28/16 08:00 400 MG Potassium Chloride (Klor-Con Tab) 60 meq QAM PO 06/22/16 09:00 07/22/16 08:59 06/28/16 07:59 60 MEQ Guaifenesin (Mucinex Contr Rel Tab) 600 mg Q12 PO 06/21/16 21:00 07/21/16 20:59 06/28/16 07:59 600 MG Potassium Chloride (Klor-Con Tab) 40 meq PM PO 06/21/16 21:00 07/21/16 20:59 06/27/16 20:31 40 MEQ Nystatin (Mycostatin Crm) 1 appln BID EXT 06/24/16 09:45 07/24/16 09:44 06/28/16 07:57 1 APPLN Levetiracetam (Keppra Tab) 500 mg BID PO 06/26/16 09:00 07/26/16 08:59 06/28/16 07:58 500 MG Furosemide (Lasix tab) 80 mg BID17 PO 06/28/16 09:00 07/28/16 08:59 06/28/16 07:58 80 MG Menthol (Nice Radha) 1 radha PRN PRN PO 06/28/16 07:15 07/28/16 07:14 06/28/16 11:13 1 RADHA Miscellaneous Information (Consult Glycemic Management Pharmacy) 1 ea UD PRN N/A 06/28/16 12:17 07/28/16 12:16 Objective Vital Signs Date Time Temp Pulse Resp B/P Pulse Ox O2 Delivery O2 Flow Rate FiO2 06/28/16 12:00 36.9 86 18 105/72 98 Nasal Cannula 3.0 06/28/16 11:15 84 16 93 Nasal Cannula 2.0 06/28/16 08:00 Nasal Cannula 2.0 06/28/16 07:50 36.6 77 22 115/74 99 Nasal Cannula 2.0 06/28/16 07:17 84 16 95 Nasal Cannula 2.0 06/28/16 04:00 36.2 82 113/70 95 BiPAP 06/28/16 04:00 95 BiPAP 2.0 06/28/16 00:00 90 BiPAP 2.0 06/27/16 23:44 36.6 91 18 126/85 90 BiPAP 06/27/16 22:14 89 93 2.0 06/27/16 20:00 96 Nasal Cannula 2.0 06/27/16 19:25 92 16 96 Nasal Cannula 2.0 06/27/16 18:49 36.6 90 18 111/74 96 Nasal Cannula 2.0 06/27/16 16:51 98 Nasal Cannula 2.0 06/27/16 15:25 36.6 97 18 99/58 94 Nasal Cannula 2.0 06/27/16 15:09 91 16 93 Nasal Cannula 2.0 06/27/16 12:33 98 Nasal Cannula 2.0 Physical Exam General Appearance: no apparent distress, + obese Eyes: normal inspection, PERRL, EOMI ENT: normal ENT inspection, TMs normal, pharynx normal Neck: supple, thyroid normal Respiratory/Chest: lungs clear, normal breath sounds, no respiratory distress, no accessory muscle use Cardiovascular: regular rate, rhythm, no edema, no gallop, no JVD Abdomen: non tender, soft, no organomegaly Extremities: normal range of motion, non-tender, normal inspection 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: 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 conversion operator II-XII nml as tested, no motor/sensory deficits, alert, normal mood/affect, oriented x 3 Skin: normal color, warm/dry, no rash Laboratory Results Last 24 Hours Test 06/27/16 16:06 06/27/16 16:07 06/27/16 20:01 06/27/16 20:02 Bedside Glucose 342 mg/dl 360 mg/dl 348 mg/dl 364 mg/dl Test 06/28/16 06:10 06/28/16 08:21 06/28/16 10:58 Bedside Glucose 249 mg/dl 317 mg/dl White Blood Count 7.10 K/uL Red Blood Count 4.68 M/uL Hemoglobin 12.3 g/dL Hematocrit 41.0 % Mean Corpuscular Volume 87.6 fL Mean Corpuscular Hemoglobin 26.3 pg Mean Corpuscular Hemoglobin Concent 30.0 g/dl Platelet Count 197 K/uL Mean Platelet Volume 10.2 fL Neutrophils (%) (Auto) 73.7 % Lymphocytes (%) (Auto) 13.5 % Monocytes (%) (Auto) 10.4 % Eosinophils (%) (Auto) 2.1 % Basophils (%) (Auto) 0.0 % Neutrophils # (Auto) 5.23 K/uL Lymphocytes # (Auto) 0.96 K/uL Monocytes # (Auto) 0.74 K/uL Eosinophils # (Auto) 0.15 K/uL Basophils # (Auto) 0.00 K/uL RDW Standard Deviation 52.0 fL RDW Coefficient of Variation 16.4 % Immature Granulocyte % (Auto) 0.3 % Immature Granulocyte # (Auto) 0.02 K/uL Sodium Level 129 mmol/L Potassium Level 4.4 mmol/L Chloride Level 81 mmol/L Carbon Dioxide Level 43 mmol/L Anion Gap 5.0 mmol/L Blood Urea Nitrogen 18 mg/dl Creatinine 0.80 mg/dl Est Creatinine Clear Calc Drug Dose 82.4 ml/min Estimated GFR () 92.2 Estimated GFR (Non- 79.6 BUN/Creatinine Ratio 22.5 Random Glucose 294 mg/dl Calcium Level 10.2 mg/dl Magnesium Level 2.3 mg/dl Albumin 3.1 gm/dl Assessment and Plan 61 y/o female with a history of CHF, chronic respiratory failure, DM II, HTN, seizure disorder, and bipolar disorder who presented for a direct admission on with cough, lethargy, weakness and confusion. Acute on chronic hypercarbic respiratory failure, multifactorial obesity hypoventilation syndrome, pulmonary HTN, KORI, bronchitis/Bi basilar CAP appreciated pulm input, Dr. Juarez recommended, expiratory pressure of 6 with a rate of 15 and upon discharged a prescription could be sent to the [facility] before she leaves the hospital to adjust her machine at home he also recommended 7 days total of ceftriaxone may need pulm rehab patient is currently stable on 2 liters NC 02 flu is negative cont Mucinex 600 mg PO BID cont Incentive spirometry Duonebs QIDR and q2h prn SOB/wheezing stop po prednisone abg compensated metabolic changes, contraction alkalosis Chronic diastolic stable CHF not in exacerbation, 12/2015 EF was 50-55%. Lasix to 80 mg po BID hold metolazone 5 mg PO BID, to be started on discharge once daily Continue KCl supplements F/U renal function Diabetes mellitus type 2--Last HgbA1c 7.7 stop Lantus 10 units due to hypoglycemia Insulin sliding scale consult pharmacy to adjust insulin Check BSGs q ac and qhs HTN--stable Continue lisinopril 5 mg PO qd Seizure disorder Continue Keppra 500 mg po BID Bipolar disorder Continue lithium 600 mg PO qhs DVT prophylaxis Enoxaparin 40 mg SC q24h JAYDON smith and SCDs Code Status FULL pt/ot eval: rehab ([facility])
--- NOTE | 2016-06-28 13:26 | Pharmacy Progress Note ---
Glycemic Control Intl Consult Date of Service Jun 28, 2016. Scope Glycemic Pharmacist consulted by Dr Arshad on 06/28/16 for glycemic control and to write orders per [facility] inpatient glycemic control protocol Objective Weight (Kilograms): 98.000 Accuchecks BSG (last 24hrs): Test 06/27/16 16:06 06/27/16 16:07 06/27/16 20:01 06/27/16 20:02 Bedside Glucose 342 mg/dl (70-90) 360 mg/dl (70-90) 348 mg/dl (70-90) 364 mg/dl (70-90) Test 06/28/16 06:10 06/28/16 08:21 06/28/16 10:58 Bedside Glucose 249 mg/dl (70-90) 317 mg/dl (70-90) Random Glucose 294 mg/dl (70-99) Laboratory Data (last 24hrs) Test 06/28/16 08:21 Anion Gap 5.0 mmol/L BUN/Creatinine Ratio 22.5 Blood Urea Nitrogen 18 mg/dl Creatinine 0.80 mg/dl Potassium Level 4.4 mmol/L Sodium Level 129 mmol/L White Blood Count 7.10 K/uL Red Blood Count 4.68 M/uL Hemoglobin 12.3 g/dL Hematocrit 41.0 % Mean Corpuscular Volume 87.6 fL Mean Corpuscular Hemoglobin 26.3 pg Mean Corpuscular Hemoglobin Concent 30.0 g/dl Platelet Count 197 K/uL Mean Platelet Volume 10.2 fL Neutrophils (%) (Auto) 73.7 % Lymphocytes (%) (Auto) 13.5 % Monocytes (%) (Auto) 10.4 % Eosinophils (%) (Auto) 2.1 % Basophils (%) (Auto) 0.0 % Neutrophils # (Auto) 5.23 K/uL Lymphocytes # (Auto) 0.96 K/uL Monocytes # (Auto) 0.74 K/uL Eosinophils # (Auto) 0.15 K/uL Basophils # (Auto) 0.00 K/uL HbA1c Test 06/22/16 06:24 Hemoglobin A1c 7.7 % (4.5-5.6) H Recent Pertinent Medications Outpatient Anti-diabetic Regimen: * NovoLog 10 units if BSG is > 180 mg/dL * Lantus 15 units SQ q HS * A1c = 7.7 % The patient is currently receiving: * Basal insulin: Lantus 8 units x1 dose on 06/27 (prior doses stopped secondary to hypoglycemia) * Correctional Insulin: NovoLog Correction per scale AC/HS Goal Range: Low 140 mg/dL - High 180 mg/dL Correction Factor: 30 mg/dL/unit * Prandial insulin: Per carb ratio of 1 unit per -- grams CHO consumed Risk Factors for Insulin Resistance: * Steroids: Prednisone 30mg PO x1 on 06/26, Prednisone 10mg PO x1 on 06/27, now discontinued * Infection: ceftriaxone IV * Diet: T2DM/AHA Assessment & Plan ASSESSMENT: * ADA & AACE recommend a goal blood sugar range 140-180 mg/dl for the majority of critically ill & non-critically ill patients. However, more stringent targets may be selected in individual cases. * 61 y/o type 2 diabetic known to the glycemic consult service from prior admissions. 06/28/16 * BSGs have been critically elevated (>350mg/dL) for 2 days * Steroids stopped after yesterday's dose of PO prednisone * Today, pre-lunch BSG >300mg/dL * Give 5 units of IV insulin to help augment NovoLog coverage * Resume Lantus at this time as fasting BSG is above goal * Lantus 10 units SQ q PM (reduced from home regimen secondary to hypoglycemia earlier this admission) * Continue NovoLog AC and HS * add additional Accu-checks overnight until hyperglycemia resolved * Add carb ratio (required this last admission and will act proactively to prevent hyperglycemia PLAN FOR INPATIENT GLYCEMIC CONTROL: * Lantus 10 units SQ q PM * NovoLog AC and HS * Add Accu-checks at 00:00 and 04:00 * Correction factor: 30mg/dL/unit * Carb ratio: 1 unit per 8g of CHO consumed * Goal range: 140-180mg/dL * 5 units of regular insulin IV x1 dose now * A1c added to discharge instructions * Please note that the plan above was derived based on current level of insulin resistance and hospital stress. These recommendations are appropriate for inpatient admission only. Plan of care upon discharge will need to be reassessed to avoid potential outpatient hypo/hyperglycemia. Thank you.
[2016-06-28] MEDS: ACETAMINOPHEN 325 MG TAB PO PRN ×2 (13:34→18:24)
[2016-06-28] MEDS: ENOXAPARIN 40 MG/0.4 ML SYR SC SCH (17:10)
[2016-06-28] MEDS: LITHIUM CARBONATE SR 300 MG TAB (LITHOBID) PO SCH (20:21)
[2016-06-28] MEDS ORDERED: INSULIN GLARGINE SOLOSTAR 100 UNITS/ML 3 ML PEN SC SCH (21:00)
[2016-06-29] VITALS (7 sets, daily range): BP systolic 90–114; BP diastolic 57–68; PULSE 78–95; TEMP 36.6–36.8; O2SAT 92–100
[2016-06-29] MEDS: INSULIN ASPART 100 UNITS/ML 3 ML PEN SC SCH ×3 (04:00→11:54)
[2016-06-29] MEDS: ACETAMINOPHEN 325 MG TAB PO PRN ×2 (04:36→08:37)
[2016-06-29 06:51] LABS: MANUAL MICROSCOPIC REQUIRED? YES; URINE APPEARANCE SL CLOUDY (CLEAR); URINE BILIRUBIN NEG (NEG); URINE COLOR RED; URINE NITRITE NEG (NEG); UROBILINOGEN NEG (NEG)
[2016-06-29 06:55] LABS: REVIEW REQ? NO
[2016-06-29 07:04] LABS: URINE BACTERIA 1+ (NEG); URINE RBC >30 /hpf (0-4); URINE WBC >30 /hpf (0-5)
[2016-06-29 07:05] LABS: URINE MUCUS PRESENT (NONE PRSENT); ZZUR CULT IF INDIC CLEAN CATCH YES
[2016-06-29] MEDS: ALBUT/IPRATROP 3MG/0.5MG NEB 3 ML VIAL INH SCH ×2 (07:22→11:17)
[2016-06-29] MEDS: MAGNESIUM OXIDE 400 MG TAB PO SCH (08:32)
[2016-06-29] MEDS: POTASSIUM CHLORIDE 20 MEQ TABCR PO SCH (08:33)
[2016-06-29] MEDS: LISINOPRIL 5 MG TAB PO SCH (08:34)
[2016-06-29] MEDS: LEVETIRACETAM 500 MG TAB PO SCH (08:34)
[2016-06-29] MEDS: NYSTATIN CR 15 GM TUBE EXT SCH (08:35)
[2016-06-29] MEDS: FUROSEMIDE 40 MG TAB PO SCH (08:35)
[2016-06-29] MEDS: GUAIFENESIN 600 MG TABCR PO SCH (08:35)
[2016-06-29 09:04] LABS: BASO % 0.2 %; BASO ABS # 0.01 K/uL (0-0.2); COMPLETE YES; EOS % 2.4 %; HEMATOCRIT 40.8 % (37-47); IG% 0.2 %; LYMPH ABS # 1.06 K/uL (1.2-3.4); MEAN CELL VOLUME 89.7 fL (80-100); MEAN CORPUSCULAR HEMOGLOBIN 26.6 pg (25-34); MEAN CORPUSCULAR HGB CONC 29.7 g/dl (32-36); MEAN PLATELET VOLUME 10.3 fL (7.4-10.4); MONO % 7.2 %; PLATELET COUNT 196 K/uL (130-400); RED BLOOD COUNT 4.55 M/uL (4.2-5.4); WHITE BLOOD COUNT 6.22 K/uL (4.8-10.8)
[2016-06-29 09:37] LABS: BUN/CREATININE RATIO 24.3 (10-20); CALCIUM 9.9 mg/dl (8.5-10.1); CREATININE 0.75 mg/dl (0.60-1.20); MAGNESIUM 2.1 mg/dl (1.8-2.4); POTASSIUM 4.2 mmol/L (3.5-5.1)
[2016-06-29 09:41] LABS: ALB/GLOB RATIO 0.7 (0.9-2); PHOSPHORUS 3.4 mg/dl (2.5-4.9)
--- NOTE | 2016-06-29 10:22 | Cardiology Follow-Up ---
Subjective General Date of Service: Jun 29, 2016. Chief Complaint: SOB Pt evaluation today including: conversation w/ patient, physical exam, chart review, lab review, review of studies, review of inpatient medication list History of Present Illness Patient feeling ok this AM. Notes continued loose cough. No chest pain or SOB. Noted to have hematuria this AM. Allergies Coded Allergies: No Known Allergies (Verified , `, 06/21/16) Social History Smoking Status: Never Smoker Hx Tobacco Use In Past Year?: No Hx Alcohol Use - Type And Amou: No Hx Substance Use - Type And Am: No Problem List Medical Problems: (1) Change in mental status Status: Acute (2) CHF (congestive heart failure) Status: Acute (3) CHF (congestive heart failure) Status: Acute (4) CO2 retention Status: Acute (5) Fall Status: Acute (6) Hyperglycemia Status: Acute (7) Hypokalemia Status: Acute (8) Hyponatremia Status: Acute (9) Hyponatremia Status: Acute (10) Hyponatremia Status: Acute (11) SOB (shortness of breath) Status: Acute (12) Weakness Status: Acute Review of Systems Respiratory: + cough, No hemoptysis, No shortness of breath, No sputum Cardiac: No PND, No chest pain, No edema, No orthopnea, No palpitations Physical Exam Vital Signs Last Vital Signs Documentation Date Time Temp Pulse Resp B/P Pulse Ox O2 Delivery O2 Flow Rate FiO2 06/29/16 08:00 Nasal Cannula 2.0 06/29/16 07:50 36.6 87 28 90/57 100 87 Physical Exam Constitutional: General Apperance: overweight Level of Distress: NAD, chronically ill Psychiatric: Mental Status: active & alert Orientation: to time, to place, to person Head: normocephalic Eyes: Pupils: PERRLA Neck: supple Lungs: Auscultation: no wheezing, no rales/crackles, deminished air movement Cardiovascular: Heart Auscultation: RRR, normal S1, normal S2, no murmurs Abdomen: Bowel Sounds: normal Inspection & Palpation: soft, non-distended, no tenderness, guarding & rebound Extremities: no edema Assessment and Plan Assessment and Plan IMPRESSION: 1. Respiratory failure secondary to hypercapnia and likely acute bronchitis - residual cough noted. 2. Hypokalemia, improved. 3. Hypoventilation syndrome. 4. Pulmonary hypertension. 5. Diabetes mellitus. 6. Cor pulmonale. 7. Schizoaffective disorder. 8. Hematuria PLAN: Continue oral furosemide 80 mg BID Monitor potassium To resume metolazone 5 mg daily on discharge Continue all other cardiac medications at this time. Hbg stable with hematuria. Has rao in place since admission. Case to be discussed with Dr. Ramos. Will follow. CARDIOLOGY ATTENDING ADDENDUM: The patient's case was discussed with Seema Bartlett PA-C. Pt was discharged before I could see or examine her. Agree with Caitlin Bartlett PA-C's findings and plans as documented above. Laboratory Results Last 24 Hours Test 06/28/16 10:58 06/28/16 16:24 06/28/16 20:25 06/28/16 23:47 Bedside Glucose 317 mg/dl 151 mg/dl 214 mg/dl 277 mg/dl Test 06/29/16 06:00 06/29/16 08:39 06/29/16 08:49 Urine Color RED Urine Appearance SL CLOUDY Urine pH 7.0 Urine Specific [place] 1.010 Urine Protein 2+ Urine Glucose (UA) NEG Urine Ketones NEG Urine Occult Blood 3+ Urine Nitrite NEG Urine Bilirubin NEG Urine Urobilinogen NEG Urine Leukocyte Esterase SMALL Urine RBC >30 /hpf Urine WBC >30 /hpf Urine Epithelial Cells >30 /lpf Urine Bacteria 1+ Urine Hyaline Casts 1-5 /lpf Urine Mucus PRESENT White Blood Count 6.22 K/uL Red Blood Count 4.55 M/uL Hemoglobin 12.1 g/dL Hematocrit 40.8 % Mean Corpuscular Volume 89.7 fL Mean Corpuscular Hemoglobin 26.6 pg Mean Corpuscular Hemoglobin Concent 29.7 g/dl Platelet Count 196 K/uL Mean Platelet Volume 10.3 fL Neutrophils (%) (Auto) 73.0 % Lymphocytes (%) (Auto) 17.0 % Monocytes (%) (Auto) 7.2 % Eosinophils (%) (Auto) 2.4 % Basophils (%) (Auto) 0.2 % Neutrophils # (Auto) 4.54 K/uL Lymphocytes # (Auto) 1.06 K/uL Monocytes # (Auto) 0.45 K/uL Eosinophils # (Auto) 0.15 K/uL Basophils # (Auto) 0.01 K/uL RDW Standard Deviation 54.0 fL RDW Coefficient of Variation 16.5 % Immature Granulocyte % (Auto) 0.2 % Immature Granulocyte # (Auto) 0.01 K/uL Sodium Level 132 mmol/L Potassium Level 4.2 mmol/L Chloride Level 86 mmol/L Carbon Dioxide Level 39 mmol/L Anion Gap 7.0 mmol/L Blood Urea Nitrogen 18 mg/dl Creatinine 0.75 mg/dl Est Creatinine Clear Calc Drug Dose 87.3 ml/min Estimated GFR () 99.7 Estimated GFR (Non- 86.0 BUN/Creatinine Ratio 24.3 Random Glucose 271 mg/dl Calcium Level 9.9 mg/dl Phosphorus Level 3.4 mg/dl Magnesium Level 2.1 mg/dl Total Bilirubin 0.6 mg/dl Aspartate Amino Transf (AST/SGOT) 26 U/L Alanine Aminotransferase (ALT/SGPT) 25 U/L Alkaline Phosphatase 84 U/L Total Protein 6.8 gm/dl Albumin 2.9 gm/dl Globulin 3.9 gm/dl Albumin/Globulin Ratio 0.7
[2016-06-29] MEDS ORDERED: INSULIN GLARGINE SOLOSTAR 100 UNITS/ML 3 ML PEN SC SCH (11:15)
[2016-06-29] MEDS ORDERED: DEXT40GE2 PO (14:01)
[2016-06-29] MEDS ORDERED: DEXT4CHW64 PO (14:01)
[2016-06-29] MEDS ORDERED: MRLP17X PO (14:01)
[2016-06-29] MEDS ORDERED: NYSCR15 EXT (14:01)
--- NOTE | 2016-06-29 14:07 | Discharge Instructions ---
Discharge Instructions Admission Admission Date: Jun 21, 2016 at 15:54 Admission Diagnosis: Lethargy, Weakness. Care Plan - Goal(s): Decrease discomfort Care Plan - Instructions: Activity Recommendations: no limitations Recommended Home Diet: [address] [place] Wt Reduction, AHA Phase I (2gmNa/LoCho) Provider Instructions: Call 911 and go to the Emergency Room if: * You have tightness or pain in your chest that does not go away with rest or Nitroglycerin * You are very short of breath even with rest Call your doctor if any of the following symptoms or problems start or get worse: * Shortness of breath or difficulty breathing * Wake up at night short of breath * Chest pain * Cough * Swelling of your hands, fee, or legs * More fatigued or tired with your normal activity * Palpitations - sudden fast heart beats WEIGHT * Weigh yourself every morning after using the bathroom. * Use the same scale. * Wear the same amount of clothing. * Write your weight down on your chart. * Call your doctor if you gain more than 2-3 pounds in 1-2 days. MEDICATIONS * Use this discharge instruction sheet for instructions. * Take your medications at the time your doctor ordered. * Do not skip a dose of your medicines. * If you miss a dose of medicine, take as soon as possible, but DO NOT DOUBLE A DOSE. * Read your medicine information when you get home. * Know all of the side effects of your medicine. * Call your doctor's office if you have any side effects. * Be sure all of your doctors know what medicine and herbs you take (including cold, flu, and herbal medicine). * Pain Medicine: If you do not get relief from your pain, please call your doctor for help. Take the following with you to your follow-up doctor appointments: * Weight Chart * Medication List * List of questions Do not drink excessive alcohol, beer or wine. Medical / Surgical Problems Problem List: (1) CONGESTIVE HEART FAILURE NOS (2) BIPOL I DIS, SING MANIC EPIS, SEVERE, SPEC W PSYCHOTIC BEHAV (3) Hypoxia (4) Anasarca VTE Core Measure Inpt VTE Proph given/why not?: Enoxaparin (Lovenox)SQ, T.E.D. Stockings, SCD's Laboratory Results Test Results: will need UA in one week follow up on hematuria will also need CMP follow up on renal and liver function Hemoglobin A1c Test 06/22/16 06:24 Range/Units Estimated Average Glucose 174 mg/dl Hemoglobin A1c 7.7 H 4.5-5.6 % Sree Williamson Recommendations: BIPAP settings In 15 Exp 5 rate of 12 50% FiO2 Call your doctor if: * Temperature above 101 degrees * Pain not relieved by pain medicine ordered * There is increased drainage or redness from any incision * You have any unanswered questions or concerns. Your Doctors Instructions noted above were prepared by provider Magaly Gaitan.
[2016-06-29] MEDS ORDERED: METO2.5T PO (14:09)
[2016-06-29] MEDS ORDERED: LVNIS40 SC (15:19)
[2016-06-29] MEDS ORDERED: INSDGIPEN SC (15:19)
[2016-06-29] MEDS ORDERED: GFNSR600 PO (15:19)
--- NOTE | 2016-06-29 15:33 | Discharge Summary ---
Discharge Summary Admission Date: Jun 21, 2016 at 15:54 Discharge Date: Jun 29, 2016 Discharge Disposition: Rehab Problems/Secondary Diagnoses: 61 y/o female with a history of CHF, chronic respiratory failure, DM II, HTN, seizure disorder, and bipolar disorder who presented for a direct admission on with cough, lethargy, weakness and confusion. Acute on chronic hypercarbic respiratory failure, multifactorial obesity hypoventilation syndrome, pulmonary HTN, KORI, bronchitis/Bi basilar CAP Chronic diastolic stable CHF not in exacerbation, 12/2015 EF was 50-55%. Diabetes mellitus type 2--Last HgbA1c 7.7 HTN--stable Seizure disorder Bipolar disorder KORI Morbid obesity Lower back pain Immunizations: Have You Had Influenza Vaccine: Unknown Influenza Vaccine Date: Sep 27, 2009 History of Tetanus Vaccine?: Unknown History of Pneumococcal: No Pneumococcal Date: Jun 28, 2007 History of Hepatitis B Vaccine: Unknown Medication Reconciliation New Medications: Metolazone (Zaroxolyn) 2.5 Mg Tab 2.5 MG PO every other day for 30 Days, #15 TAB Dextrose (Diabetic Use) (Glutose 15) 40 % Gel 15-30 GM PO UD PRN for HYPOGLYCEMIA PROTOCOL for 30 Days, #30 Enoxaparin (Enoxaparin Sodium) 40 Mg/0.4 Ml Inj 40 MG SC Q24H for 7 Days Glucose-Vitamin C (Dex4) 1 Chw Chw 4-8 TABS PO UD PRN for HYPOGLYCEMIA PROTOCOL for 30 Days, #30 Guaifenesin Ext Rel (Mucinex Ext Rel) 600 Mg Tabcr 600 MG PO Q12 for 7 Days Insulin Glargine (Lantus Solostar) 100 Unit/Ml Inj 10 UNIT SC Q12 for 30 Days Nystatin (Nystatin) 45 Appln/15 Gm Cr 1 APPLN EXT BID for 30 Days, #60 GM Polyethylene (Miralax) 17 Gm Pow 17 GM PO DAILY PRN for Constipation for 30 Days, #30 Continued Medications: Acetaminophen (Tylenol) 325 Mg Tab 650 MG PO Q4 PRN for Pain or Fever DO NOT EXCEED 3GM/24HRS Benzonatate (Tessalon Perles) 200 Mg Cap 200 MG PO Q8, CAP Cholecalciferol (Vitamin D3) 1,000 Unit Cap 1000 INTER.UNIT PO QAM Furosemide (Furosemide) 80 Mg Tab 80 MG PO BID, #180 Insulin Aspart (Novolog) Inj 10 UNITS SQ UD ONLY IF BLOOD SUGAR IS >180 Ipratropium-Albuterol (Combivent Respimat) 1 Aer Aer 1 PUFFS INH QID, INH Levetiractam (Levetiracetam) 500 Mg Tab 500 MG PO BID Lisinopril (Lisinopril) 5 Mg Tab 5 MG PO QAM [place] Carbonate (Lithobid Ext Rel) 300 Mg Tab 600 MG PO HS Magnesium Oxide (Mag-Ox) 400 Mg Tab 400 MG PO QAM Potassium Chloride (Klor-Con M20) 20 Meq Tabcr 60 MEQ PO UD 3 tablets in the morning, 2 tablets at night Discontinued Medications: Insulin Glargine (Lantus Solostar Pen) 100 Unit/ Inj 15 UNIT SQ HS, 3 Refills Metolazone (Zaroxolyn) 5 Mg Tab 5 MG PO DAILY, TAB Referrals At Discharge Follow up Referrals: Dispensing Audiologist Referral - Within 1-2 Weeks with Ilan Mills DO Special Delivery Mail Carrier Referral - Within 1-2 Weeks with Hunter Wiggins MD Discharge Exam Review of Systems: Constitutional: No fever Eyes: No worsening of vision ENT: No hearing loss Respiratory: No cough, No sputum Cardiovascular: No chest pain Abdomen: No pain, No vomiting Musculoskeletal: No joint pain Genitourinary - Female: + hematuria Neurologic: No memory loss, No paralysis Psychiatric: No depression symptoms Endocrine: No fatigue Integumentary: No rash Physical Exam: General Appearance: no apparent distress, + obese Eyes: normal inspection, PERRL, EOMI ENT: normal ENT inspection, hearing grossly normal Neck: supple Respiratory/Chest: chest non-tender, lungs clear, normal breath sounds, no respiratory distress, no accessory muscle use Cardiovascular: regular rate, rhythm, no edema, no gallop, no JVD, no murmur Abdomen / GI: non tender, soft, no organomegaly, no pulsatile mass Extremities: normal inspection, no pedal edema, normal range of motion 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: nurse ob II-XII nml as tested, no motor/sensory deficits , alert, normal mood/affect, normal reflexes, oriented x 3 Skin: normal color, warm/dry, no rash Hospital Course 61 y/o female with a history of CHF, chronic respiratory failure, DM II, HTN, seizure disorder, and bipolar disorder who presented for a direct admission on with cough, lethargy, weakness and confusion. She was admitted to hospital [facility] seen by flat ironer, started her on BIPAP setting 25/10 with 50FiO2 also started on steroids and bronchodilators S/P 7 days of Ceftriaxone for possible CAP slowly improved patient is currently stable on 2 liters NC 02 flu is negative cont Mucinex 600 mg PO BID cont Incentive spirometry Duonebs QIDR and q2h prn SOB/wheezing stop po prednisone today for her Chronic diastolic stable CHF not in exacerbation, 12/2015 EF was 50-55%. Lasix to 80 mg po BID was continued held metolazone 5 mg , restarted on a smaller dose on discharge 2.5mg po every other day Continued KCl supplements Toprol Xl dose was decreased as she did not tolerate the higher dose for her Diabetes mellitus type 2--Last HgbA1c 7.7 Lantus was decreased from 13 to 10 units due to hypoglycemia (HgbA1C was 7.7) HTN--stable Continued lisinopril 5 mg PO qd and toprol XL Continued Keppra 500 mg po BID and Continue lithium 600 mg PO qhs for her Seizure disorder and Bipolar disorder today appeared to be stable to go to rehab will need a urine analysis in one week as she had some hematuria after placing the rao This includes examination of the patient, discharge planning, medication reconciliation, and communication with other providers. Discharge Instructions Please refer to the electronic Patient Visit Report (Discharge Instructions) for additional information.
[2016-06-30] MEDS ORDERED: INSULIN ASPART 100 UNITS/ML 3 ML PEN SC SCH (02:00)
[2016-12-08] MEDS ORDERED: LCTL45 PO (10:15)
[2016-12-08] MEDS ORDERED: LTHCR300 PO (10:15)
[2016-12-08] MEDS ORDERED: FRS/40 PO (10:15)
[2016-12-08] MEDS ORDERED: MRLP17X PO (10:15)
[2016-12-08] MEDS ORDERED: HALO100I IM (10:15)
[2016-12-08] MEDS ORDERED: MCRK20 PO (10:15)
[2016-12-08] MEDS ORDERED: INSDGIPEN SC (10:15)
[2016-12-08] MEDS ORDERED: METO5TAB25 PO (10:15)
== END 2016-06-29 15:31 | DRG 205 ==
LOC: ENRESERVDT → ENRESERVTM → EDBD 13:58 → C.EDA 13:59 → C.2T 15:54
PROVIDERS: ADMIT Hospitalist; ATTEND Hospitalist
DX: E66.2 Morbid (severe) obesity with alveolar hypoventilation (principal); J96.20 Acute and chronic respiratory failure, unspecified whether with hypoxia or hypercapnia; I50.32 Chronic diastolic (congestive) heart failure; E87.3 Alkalosis; E87.2 Acidosis; R53.83 Other fatigue; E87.6 Hypokalemia; E11.21 Type 2 diabetes mellitus with diabetic nephropathy; G40.909 Epilepsy, unspecified, not intractable, without status epilepticus; F31.9 Bipolar disorder, unspecified; K59.00 Constipation, unspecified; Z68.37 Body mass index [BMI] 37.0-37.9, adult; I27.2 Other secondary pulmonary hypertension; F25.9 Schizoaffective disorder, unspecified; Z91.19 Patient's noncompliance with other medical treatment and regimen; Z83.3 Family history of diabetes mellitus

== ENCOUNTER 2016-11-18 14:23 | Inpatient (IN) | payer BC ==
[~2016-11-18] VITALS: Ht 152.4 cm; Wt 99.2 kg
[~2016-11-18 14:23] MED LIST changes: +BENZ1CAP90 PO; +DEXT40GE2 PO; +DEXT4CHW64 PO; +GFNSR600 PO; +INSDGIPEN SC; -INSUINJ4 SQ; +LVNIS40 SC; -METO5TAB25 PO; +MRLP17X PO; +NYSCR15 EXT
[2016-11-18] MEDS ORDERED: LTH300C PO (15:12)
[2016-11-18] MEDS ORDERED: LCTS240 PO (15:12)
[2016-11-18] MEDS ORDERED: HALO100I2 SQ (15:12)
[2016-11-18] MEDS ORDERED: ZRX5 PO (15:12)
--- NOTE | 2016-11-18 16:16 | EMERGENCY ROOM VISIT NOTE ---
History Report prepared by Jada: Kita Garcia Under the Supervision of: Dr. Ana Crain M.D. First contact with patient: 15:37 Chief Complaint: BILATERAL LEG WEAKNESS Stated Complaint: UNABLE TO AMBULATE/LEG PAIN History of Present Illness The patient is a 61 year old female who presents to the Emergency Room with complaints of constant weakness beginning 2 days ago. The patient's states that he was on a business trip for 10 days and while he was gone the patient was not using her C-Pap machine. He reports that he is not sure how many days she went without it but it could have been several days. He notes that the patient has a history of CHF and fluid overload. The complains of unresponsiveness, weight gain, leg pain, leg weakness, and difficulty ambulating. He denies any fever and falls. He states that she is on Aspirin and was responsive up until last night. The reports that she has a history of diabetes and her blood sugars have been fluctuating but she was 314 today. The patient also has a history of schizo affective disorder. Source of History: spouse/significant other Onset: 2 days ago Position: other (global) Quality: other (weakness) Timing: constant Associated Symptoms: No fevers Note: The complains of unresponsiveness, weight gain, leg pain, leg weakness, and difficulty ambulating. He denies any falls. Review of Systems See HPI for pertinent positives & negatives. A total of 10 systems reviewed and were otherwise negative. Past Medical & Surgical Medical Problems: (1) ACUTE RENAL FAILURE NOS (2) Acute respiratory failure with hypoxia and hypercapnia (3) BIPOL I DIS, SING MANIC EPIS, SEVERE, SPEC W PSYCHOTIC BEHAV (4) CONGESTIVE HEART FAILURE NOS (5) DIAB ROSA WO COMPL, TYPE II OR UNSPEC TYPE, NOT UNCNTRLD (6) Lethargy (7) Weakness Family History FH: HTN (hypertension) FH: diabetes mellitus Heart disease Social History Smoking Status: Never Smoker Alcohol Use: none Drug Use: none Marital Status: Housing Status: lives with family Occupation Status: retired Current/Historical Medications Scheduled Benzonatate (Tessalon Perles), 200 MG PO Q8 Cholecalciferol (Vitamin D3), 1,000 INTER.UNIT PO QAM Enoxaparin (Enoxaparin Sodium), 40 MG SC Q24H Furosemide (Furosemide), 80 MG PO BID Guaifenesin Ext Rel (Mucinex Ext Rel), 600 MG PO Q12 Haloperidol Decanoate (Haloperidol Decanoate), 1 DOSE SQ DIRECTED Insulin Aspart (Novolog), 10 UNITS SQ UD Insulin Glargine (Lantus Solostar), 10 UNIT SC Q12 Ipratropium-Albuterol (Combivent Respimat), 1 PUFFS INH QID Lactulose (Chronulac), 1 DOSE PO DIRECTED Levetiractam (Levetiracetam), 500 MG PO BID Lisinopril (Lisinopril), 5 MG PO QAM [place] Carbonate (Lithobid Ext Rel), 600 MG PO HS [place] Carbonate ([place] Carbonate), 300 MG PO BID Magnesium Oxide (Mag-Ox), 400 MG PO QAM Metolazone (Metolazone), 5 MG PO DAILY Nystatin (Nystatin), 1 APPLN EXT BID Potassium Chloride (Klor-Con M20), 60 MEQ PO UD Scheduled PRN Acetaminophen (Tylenol), 650 MG PO Q4 PRN for Pain or Fever Dextrose (Diabetic Use) (Glutose 15), 15-30 GM PO UD PRN for HYPOGLYCEMIA PROTOCOL Glucose-Vitamin C (Dex4), 4-8 TABS PO UD PRN for HYPOGLYCEMIA PROTOCOL Polyethylene (Miralax), 17 GM PO DAILY PRN for Constipation Allergies Coded Allergies: No Known Allergies (Verified , `, 11/18/16) Physical Exam Vital Signs Date Time Temp Pulse Resp B/P (MAP) Pulse Ox O2 Delivery O2 Flow Rate FiO2 11/18/16 18:36 78 11/18/16 18:28 88 95 11/18/16 18:00 77 19 113/60 99 Nasal Cannula 3.0 11/18/16 16:00 76 24 120/62 100 Nasal Cannula 3.0 11/18/16 14:42 94 Nasal Cannula 2.0 11/18/16 14:31 37.0 90 16 148/78 95 Nasal Cannula 2.0 11/18/16 14:30 88 Physical Exam Vital signs reviewed. General: Obese, in no significant distress. HEENT: No scleral icterus, PERRLA, neck supple. Atraumatic. Cardiovascular: Regular rate and rhythm, no extra sounds. Pulmonary: Clear to auscultation bilaterally, normal work of breathing. Abdomen: Soft, nontender, nondistended, positive bowel sounds. Musculoskeletal: Atraumatic, no peripheral edema. Neurologic: Somnolent, arousable but minimally responsive. Skin: Warm, dry, no rash Medical Decision & Procedures ER Provider Diagnostic Interpretation: Radiology results as stated below per my review and radiologist interpretation: HEAD CT NONCONTRAST Findings: The paranasal sinuses and mastoid air cells are clear. The calvarium and skull base are intact. The ventricles and sulci are within normal limits. There is no mass, hematoma, midline shift, or acute infarct. Impression: No acute intracranial abnormality. Electronically signed by: Jeff Hahn M.D. 11/18/2016 5:50 PM Dictated Date/Time: 11/18/2016 5:47 PM CHEST ONE VIEW PORTABLE FINDINGS: Marked enlargement of the cardiac silhouette is unchanged. There is no pneumothorax. Hazy bibasilar opacities are noted. There is no definite pleural effusion. Blunting of left costophrenic angle is likely chronic. Evaluation is difficult due to suboptimal penetration related to portable technique and body habitus. IMPRESSION: 1. Technically compromised given portable technique and body habitus with suboptimal penetration. 2. Hazy bibasilar opacities with pulmonary vascular congestion. Electronically signed by: Santana Lundy M.D. 11/18/2016 4:36 PM Dictated Date/Time: 11/18/2016 4:33 PM Laboratory Results 11/18/16 14:53 Red Blood Count 4.51, Mean Corpuscular Volume 92.5, Mean Corpuscular Hemoglobin 27.1, Mean Corpuscular Hemoglobin Concent 29.3, Mean Platelet Volume 9.4, Neutrophils (%) (Auto) 74.8, Lymphocytes (%) (Auto) 13.1, Monocytes (%) (Auto) 11.5, Eosinophils (%) (Auto) 0.2, Basophils (%) (Auto) 0.2, Neutrophils # (Auto ) 3.82, Lymphocytes # (Auto) 0.67, Monocytes # (Auto) 0.59, Eosinophils # (Auto ) 0.01, Basophils # (Auto) 0.01 Test 11/18/16 14:53 11/18/16 16:14 11/18/16 16:40 White Blood Count 5.11 K/uL (4.8-10.8) Red Blood Count 4.51 M/uL (4.2-5.4) Hemoglobin 12.2 g/dL (12.0-16.0) Hematocrit 41.7 % (37-47) Mean Corpuscular Volume 92.5 fL (80-100) Mean Corpuscular Hemoglobin 27.1 pg (25-34) Mean Corpuscular Hemoglobin Concent 29.3 g/dl (32-36) Platelet Count 222 K/uL (130-400) Mean Platelet Volume 9.4 fL (7.4-10.4) Neutrophils (%) (Auto) 74.8 % Lymphocytes (%) (Auto) 13.1 % Monocytes (%) (Auto) 11.5 % Eosinophils (%) (Auto) 0.2 % Basophils (%) (Auto) 0.2 % Neutrophils # (Auto) 3.82 K/uL (1.4-6.5) Lymphocytes # (Auto) 0.67 K/uL (1.2-3.4) Monocytes # (Auto) 0.59 K/uL (0.11-0.59) Eosinophils # (Auto) 0.01 K/uL (0-0.5) Basophils # (Auto) 0.01 K/uL (0-0.2) RDW Standard Deviation 49.9 fL (36.4-46.3) RDW Coefficient of Variation 14.6 % (11.5-14.5) Immature Granulocyte % (Auto) 0.2 % Immature Granulocyte # (Auto) 0.01 K/uL (0.00-0.02) Hypersegmented Polys 1+ Toxic Granulation 1+ Basophilic Stippling 1+ Stomatocytes 1+ Prothrombin Time 10.7 SECONDS (9.0-12.0) Prothromb Time International Ratio 1.0 (0.9-1.1) Activated Partial Thromboplast Time 26.4 SECONDS (21.0-31.0) Partial Thromboplastin Ratio 1.0 Magnesium Level 2.3 mg/dl (1.8-2.4) Total Bilirubin 0.3 mg/dl (0.2-1) Direct Bilirubin 0.1 mg/dl (0-0.2) Aspartate Amino Transf (AST/SGOT) 28 U/L (15-37) Alanine Aminotransferase (ALT/SGPT) 22 U/L (12-78) Alkaline Phosphatase 73 U/L (45-117) Total Creatine Kinase 167 U/L (26-192) Creatine Kinase MB 2.0 ng/ml (0.5-3.6) Creatine Kinase MB Ratio 1.2 (0-3.0) Total Protein 7.8 gm/dl (6.4-8.2) Albumin 3.8 gm/dl (3.4-5.0) Bedside Troponin I < 0.030 ng/ml (0-0.045) Urine Color YELLOW Urine Appearance CLEAR (CLEAR) Urine pH 8.0 (4.5-7.5) Urine Specific [place] 1.013 (1.000-1.030) Urine Protein 2+ (NEG) Urine Glucose (UA) NEG (NEG) Urine Ketones NEG (NEG) Urine Occult Blood NEG (NEG) Urine Nitrite NEG (NEG) Urine Bilirubin NEG (NEG) Urine Urobilinogen NEG (NEG) Urine Leukocyte Esterase NEG (NEG) Urine WBC (Auto) 0 /hpf (0-5) Urine RBC (Auto) 0-4 /hpf (0-4) Urine Hyaline Casts (Auto) 0 /lpf (0-5) Urine Epithelial Cells (Auto) 5-10 /lpf (0-5) Urine Bacteria (Auto) NEG (NEG) Laboratory results per my review. ECG Indication: weakness Rate (beats per minute): 88 Rhythm: normal sinus Findings: nonspecific-ST abn (inferiolateral), other (rightward axis, T wave flattening in inferior leads) Comparison ECG Date: 23-JUN-2016 Change: no significant change ED Course 1544: Past medical records reviewed. The patient was evaluated in room B4. A complete history and physical examination was performed. 1750: I reviewed the patient's case with [place]. Su[place] [facility] will evaluate the patient for further management. 175: Upon reevaluation, the patient is resting comfortably. I discussed laboratory and radiographic results with the patient. She verbalized agreement of the treatment plan. I spoke with Dr. Suarez of the [facility] [place]. The patient will be evaluated for further management and care. Medical Decision Differential diagnosis: Etiologies such as metabolic, infection, hypoglycemia, electrolyte abnormalities , cardiac sources, intracerebral event, toxicologic, neurologic, as well as others were entertained. Medication Reconciliation: I attest that I have personally reviewed the patient' s current medication list. Blood Pressure Screening: Patient was found to have an elevated blood pressure and was referred to admitting doctor. This pt was evaluated and appeared to be sedate but in no distress. IV access was obtained and lab work was drawn. Pt was placed on n/c O2 by nursing staff prior to my evaluation. PE reveals mostly somnolence. ABG reveals CO retention , elevated ammonia level. Pt was placed on bipap. CXR is limited technically, but generally congested. Pt will require inpt tx for hyperammonemia and CO retention/AMS. Family is aware of the plan and agree. Consults Time Called: 174 Consulting Physician: Dr. Suarez Returned Call: 1750 I reviewed the patient's case with Dr. Suarez of [facility] He will evaluate the patient for further management. Impression Primary Impression: Altered mental status Additional Impressions: Hypercarbia Hyperammonemia Scribe Attestation The scribe's documentation has been prepared under my direction and personally reviewed by me in its entirety. I confirm that the note above accurately reflects all work, treatment, procedures, and medical decision making performed by me. Departure Information Dispostion Being Evaluated By Hospitalist Referrals Bin Patel M.D. (PCP) Patient Instructions My [facility] Problem Qualifiers
[2016-11-18 16:23] LABS: BUN/CREATININE RATIO 11.8 (10-20); CALCIUM 8.7 mg/dl (8.5-10.1); CREATININE 0.85 mg/dl (0.60-1.20); MAGNESIUM 2.3 mg/dl (1.8-2.4); POTASSIUM 5.8 mmol/L (3.5-5.1)
[2016-11-18 16:25] LABS: PROTHROMBIN TIME (PATIENT) 10.7 SECONDS (9.0-12.0)
[2016-11-18 16:28] LABS: CKMB/CK RATIO 1.2 (0-3.0)
--- NOTE | 2016-11-18 16:37 | DIAGNOSTIC IMAGING REPORT ---
CHEST ONE VIEW PORTABLE CLINICAL HISTORY: Weakness. Altered mental status. COMPARISON STUDY: Chest radiograph June 27, 2016. FINDINGS: Marked enlargement of the cardiac silhouette is unchanged. There is no pneumothorax. Hazy bibasilar opacities are noted. There is no definite pleural effusion. Blunting of left costophrenic angle is likely chronic. Evaluation is difficult due to suboptimal penetration related to portable technique and body habitus. IMPRESSION: 1. Technically compromised given portable technique and body habitus with suboptimal penetration. 2. Hazy bibasilar opacities with pulmonary vascular congestion. Electronically signed by: Santana Lundy M.D. 11/18/2016 4:36 PM Dictated Date/Time: 11/18/2016 4:33 PM
[2016-11-18 17:01] LABS: HEMATOCRIT 41.7 % (37-47); MEAN CELL VOLUME 92.5 fL (80-100); MEAN CORPUSCULAR HEMOGLOBIN 27.1 pg (25-34); MEAN CORPUSCULAR HGB CONC 29.3 g/dl (32-36); MEAN PLATELET VOLUME 9.4 fL (7.4-10.4); PLATELET COUNT 222 K/uL (130-400); RED BLOOD COUNT 4.51 M/uL (4.2-5.4); WHITE BLOOD COUNT 5.11 K/uL (4.8-10.8)
[2016-11-18 17:07] LABS: BASO % 0.2 %; BASO ABS # 0.01 K/uL (0-0.2); COMPLETE YES; EOS % 0.2 %; HYPERSEGMENTED POLYS 1+; IG% 0.2 %; LYMPH % 13.1 %; LYMPH ABS # 0.67 K/uL (1.2-3.4); MONO % 11.5 %; NEUT % 74.8 %; STOMATOCYTE 1+; TOXIC GRANULATION 1+
[2016-11-18 17:12] LABS: ARTERIAL BLD GAS O2 SATURATION 93.9 % (90-95); ARTERIAL BLOOD GAS BASE EXCESS 10.7 mEq/L (-9-1.8); ARTERIAL BLOOD GAS HCO3 40 mmol/L (19-24); ARTERIAL BLOOD GAS PO2 74 mm/Hg (80-95); ARTERIAL BLOOD GAS pH 7.33 (7.35-7.45)
[2016-11-18 17:12] LABS: URINE APPEARANCE CLEAR (CLEAR); URINE BILIRUBIN NEG (NEG); URINE COLOR YELLOW; URINE NITRITE NEG (NEG); URINE SPECIFIC GRAVITY 1.013 (1.000-1.030); UROBILINOGEN NEG (NEG); ZZURINE CULT IF INDIC CATH NO
[2016-11-18 17:13] LABS: ALLEN TEST POS (POS)
[2016-11-18 17:14] LABS: O2 ADMINISTRATION 1L
[2016-11-18 17:18] LABS: MANUAL MICROSCOPIC REQUIRED? NO; REVIEW REQ? NO
[2016-11-18 17:19] LABS: SULFASALICYLIC ACID POS (NEG)
--- NOTE | 2016-11-18 17:51 | DIAGNOSTIC IMAGING REPORT ---
HEAD CT NONCONTRAST CT DOSE: 773.57 mGy.cm HISTORY: Mental status change AMS TECHNIQUE: Multiaxial CT images of the head were performed without the use of intravenous contrast. Comparison: 01/05/2015 Findings: The paranasal sinuses and mastoid air cells are clear. The calvarium and skull base are intact. The ventricles and sulci are within normal limits. There is no mass, hematoma, midline shift, or acute infarct. Impression: No acute intracranial abnormality. Electronically signed by: Jeff Hahn M.D. 11/18/2016 5:50 PM Dictated Date/Time: 11/18/2016 5:47 PM
[2016-11-18 18:28] VITALS: PULSE 88; O2SAT 95
--- NOTE | 2016-11-18 19:36 | History and Physical ---
History & Physical Date & Time of Service: Nov 18, 2016 at 19:24 Chief Complaint: Unable To Ambulate/Leg Pain Primary Care Physician: Bin Patel M.D. History of Present Illness Source: hospital records The patient is a 61-year-old female brought to the emergency department with persistent weakness of developed at least 2 days prior to arrival. She is unresponsive, and her history of present illness is limited to that provided by her and review of records. The patient's reports that he was on a business trip for 10 days, and while he was gone the patient did not use his CPAP machine. She has a history of CHF and fluid overload. Her reports that she is nonresponsive, had a weight gain, leg pain, leg weakness and difficulty ambulating he reports that she was responsive of until last night. She has history of diabetes and her blood sugars have been high, with value today 314. Shows a has history of schizoaffective disorder, and unknown she's been taking his medications. She has not had any recent travels, and no sick exposures. Past Medical/Surgical History Medical Problems: (1) ACUTE RENAL FAILURE NOS Status: Resolved (2) BIPOL I DIS, SING MANIC EPIS, SEVERE, SPEC W PSYCHOTIC BEHAV Status: Chronic (3) CONGESTIVE HEART FAILURE NOS Status: Chronic (4) DIAB ROSA WO COMPL, TYPE II OR UNSPEC TYPE, NOT UNCNTRLD Status: Chronic Family History FH: HTN (hypertension) FH: diabetes mellitus Heart disease Social History Smoking Status: Never Smoker Drug Use: none Marital Status: Housing status: lives with significant other Occupational Status: retired Immunizations History of Influenza Vaccine: Unknown Influenza Vaccine Date: Sep 27, 2009 History of Tetanus Vaccine?: Unknown History of Pneumococcal: No Pneumococcal Date: Jun 28, 2007 History of Hepatitis B Vaccine: Unknown Multi-Drug Resistant 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, MRSA Allergies Coded Allergies: No Known Allergies (Verified , `, 11/18/16) Home Medications Scheduled Benzonatate (Tessalon Perles), 200 MG PO Q8 Cholecalciferol (Vitamin D3), 1,000 INTER.UNIT PO QAM Enoxaparin (Enoxaparin Sodium), 40 MG SC Q24H Furosemide (Furosemide), 80 MG PO BID Guaifenesin Ext Rel (Mucinex Ext Rel), 600 MG PO Q12 Haloperidol Decanoate (Haloperidol Decanoate), 1 DOSE SQ DIRECTED Insulin Aspart (Novolog), 10 UNITS SQ UD Insulin Glargine (Lantus Solostar), 10 UNIT SC Q12 Ipratropium-Albuterol (Combivent Respimat), 1 PUFFS INH QID Lactulose (Chronulac), 1 DOSE PO DIRECTED Levetiractam (Levetiracetam), 500 MG PO BID Lisinopril (Lisinopril), 5 MG PO QAM [place] Carbonate (Lithobid Ext Rel), 600 MG PO HS [place] Carbonate ([place] Carbonate), 300 MG PO BID Magnesium Oxide (Mag-Ox), 400 MG PO QAM Metolazone (Metolazone), 5 MG PO DAILY Nystatin (Nystatin), 1 APPLN EXT BID Potassium Chloride (Klor-Con M20), 60 MEQ PO UD Scheduled PRN Acetaminophen (Tylenol), 650 MG PO Q4 PRN for Pain or Fever Dextrose (Diabetic Use) (Glutose 15), 15-30 GM PO UD PRN for HYPOGLYCEMIA PROTOCOL Glucose-Vitamin C (Dex4), 4-8 TABS PO UD PRN for HYPOGLYCEMIA PROTOCOL Polyethylene (Miralax), 17 GM PO DAILY PRN for Constipation Review of Systems Review of systems, as the history of present illness, is limited due to patient' s unresponsiveness. All information is provided by her . Physical Exam Vital Signs Date Time Temp Pulse Resp B/P (MAP) Pulse Ox O2 Delivery O2 Flow Rate FiO2 11/18/16 18:36 78 11/18/16 18:28 88 95 11/18/16 18:00 77 19 113/60 99 Nasal Cannula 3.0 11/18/16 16:00 76 24 120/62 100 Nasal Cannula 3.0 11/18/16 14:42 94 Nasal Cannula 2.0 11/18/16 14:31 37.0 90 16 148/78 95 Nasal Cannula 2.0 11/18/16 14:30 88 The patient is obtunded, leaning to the left, has BiPAP in place, otherwise looks to be in no acute distress. HEENT--PERRL, EOMI, mucous membranes and oropharynx dry. Neck--supple, no JVD or bruits, thyroid normal, trachea midline, no adenopathy. Heart--normal S1 and S2, no extra beats, no murmurs, rubs or gallops. Lungs--coarse breath sounds bilaterally. Abdomen--decreased bowel sounds, soft, nondistended and obese. Extremities--no cyanosis, clubbing. There is bilaterally pretibial 1+ pitting edema. There are good distal pulses b/l. Dermatologic--normal skin turgor, normal color, warm and dry, no abnormal lymph nodes, no rash. Neurologic--cranial nerves II through XII grossly intact, Rheumatologic--deferred. Psychiatric--obtunded Diagnostics Laboratory Results Results Past 24 Hours Test 11/18/16 14:53 11/18/16 15:03 11/18/16 16:14 11/18/16 16:40 Range/Units White Blood Count 5.11 4.8-10.8 K/uL Red Blood Count 4.51 4.2-5.4 M/uL Hemoglobin 12.2 12.0-16.0 g/dL Hematocrit 41.7 37-47 % Mean Corpuscular Volume 92.5 80-100 fL Mean Corpuscular Hemoglobin 27.1 25-34 pg Mean Corpuscular Hemoglobin Concent 29.3 32-36 g/dl Platelet Count 222 130-400 K/uL Mean Platelet Volume 9.4 7.4-10.4 fL Neutrophils (%) (Auto) 74.8 % Lymphocytes (%) (Auto) 13.1 % Monocytes (%) (Auto) 11.5 % Eosinophils (%) (Auto) 0.2 % Basophils (%) (Auto) 0.2 % Neutrophils # (Auto) 3.82 1.4-6.5 K/uL Lymphocytes # (Auto) 0.67 1.2-3.4 K/uL Monocytes # (Auto) 0.59 0.11-0.59 K/uL Eosinophils # (Auto) 0.01 0-0.5 K/uL Basophils # (Auto) 0.01 0-0.2 K/uL RDW Standard Deviation 49.9 36.4-46.3 fL RDW Coefficient of Variation 14.6 11.5-14.5 % Immature Granulocyte % (Auto) 0.2 % Immature Granulocyte # (Auto) 0.01 0.00-0.02 K/uL Hypersegmented Polys 1+ Toxic Granulation 1+ Basophilic Stippling 1+ Stomatocytes 1+ Prothrombin Time 10.7 9.0-12.0 SECONDS Prothromb Time International Ratio 1.0 0.9-1.1 Activated Partial Thromboplast Time 26.4 21.0-31.0 SECONDS Partial Thromboplastin Ratio 1.0 Sodium Level 131 136-145 mmol/L Potassium Level 5.8 3.5-5.1 mmol/L Chloride Level 92 98-107 mmol/L Carbon Dioxide Level 37 21-32 mmol/L Anion Gap 2.0 3-11 mmol/L Blood Urea Nitrogen 10 7-18 mg/dl Creatinine 0.85 0.60-1.20 mg/dl Est Creatinine Clear Calc Drug Dose 76.3 ml/min Estimated GFR () 85.7 Estimated GFR (Non- 74.0 BUN/Creatinine Ratio 11.8 10-20 Random Glucose 153 70-99 mg/dl Calcium Level 8.7 8.5-10.1 mg/dl Magnesium Level 2.3 1.8-2.4 mg/dl Total Bilirubin 0.3 0.2-1 mg/dl Direct Bilirubin 0.1 0-0.2 mg/dl Aspartate Amino Transf (AST/SGOT) 28 15-37 U/L Alanine Aminotransferase (ALT/SGPT) 22 12-78 U/L Alkaline Phosphatase 73 45-117 U/L Total Creatine Kinase 167 26-192 U/L Creatine Kinase MB 2.0 0.5-3.6 ng/ml Creatine Kinase MB Ratio 1.2 0-3.0 Total Protein 7.8 6.4-8.2 gm/dl Albumin 3.8 3.4-5.0 gm/dl Bedside Glucose 153 70-90 mg/dl Bedside Troponin I < 0.030 0-0.045 ng/ml Urine Color YELLOW Urine Appearance CLEAR CLEAR Urine pH 8.0 4.5-7.5 Urine Specific Bypro 1.013 1.000-1.030 Urine Protein 2+ NEG Urine Glucose (UA) NEG NEG Urine Ketones NEG NEG Urine Occult Blood NEG NEG Urine Nitrite NEG NEG Urine Bilirubin NEG NEG Urine Urobilinogen NEG NEG Urine Leukocyte Esterase NEG NEG Urine WBC (Auto) 0 0-5 /hpf Urine RBC (Auto) 0-4 0-4 /hpf Urine Hyaline Casts (Auto) 0 0-5 /lpf Urine Epithelial Cells (Auto) 5-10 0-5 /lpf Urine Bacteria (Auto) NEG NEG Test 11/18/16 16:46 Range/Units Arterial Blood pH 7.33 7.35-7.45 Arterial Blood Partial Pressure CO2 77 35-46 mmHg Arterial Blood Partial Pressure O2 74 80-95 mm/Hg Arterial Blood HCO3 40 19-24 mmol/L Arterial Blood Oxygen Saturation 93.9 90-95 % Arterial Blood Base Excess 10.7 -9-1.8 mEq/L Arterial Blood Gas Delivery 1L Christiano Test POS POS Ammonia 71.0 11-32 umol/L Diagnostic Radiology Patient Name: CHARITY BARRIOS Unit Number: [id number] Dictated: 11/18/161746 Transcribed: 11/18/161746 MS Printed Date/Time: [~ rep prt dt]/[~ rep prt tm] [~ rep ct labl] - [~ rep ct ivnm] [facility] [place] [address] Dictated: 11/18/161746 Transcribed: 11/18/161746 MS Printed Date/Time: [~ rep prt dt]/[~ rep prt tm] [~ rep ct labl] - [~ rep ct ivnm] [~ rep ct add3]] HEAD CT NONCONTRAST CT DOSE: 773.57 mGy.cm HISTORY: Mental status change AMS TECHNIQUE: Multiaxial CT images of the head were performed without the use of intravenous contrast. Comparison: 01/05/2015 Findings: The paranasal sinuses and mastoid air cells are clear. The calvarium and skull base are intact. The ventricles and sulci are within normal limits. There is no mass, hematoma, midline shift, or acute infarct. Impression: No acute intracranial abnormality. Electronically signed by: Jeff Hahn M.D. 11/18/2016 5:50 PM Dictated Date/Time: 11/18/2016 5:47 PM The status of this report is Signed. Draft = Not yet reviewed or approved by Radiologist. Signed = Reviewed and approved by Radiologist. <AttendingPhy></AttendingPhy> <FamilyPhy>Bin Patel M.D.</FamilyPhy> < PrimaryPhy>Bin Patel M.D.</PrimaryPhy> <UnitNumber>[id number]</ UnitNumber> <VisitNumber>[id number]</VisitNumber> <PatientName>CHARITY BARRIOS </PatientName> <DateOfBirth>1955</DateOfBirth> <Location>C.EDB</Location> <ServiceDate>11/18/16</ServiceDate> <MNE>ESINDI</MNE> <OrderingPhy>Ana Crain M.D.</OrderingPhy> <OrderingPhyMNE>f rep ord dr edward</OrderingPhyMNE> < DictatingPhyMNE>f rep dict dr edward</DictatingPhyMNE> <CCListMNE>f rep ct mne</ CCListMNE> <AdmittingPhyMNE>f pt admit dr edward</AdmittingPhyMNE> <AttendingPhyMNE >f pt attend dr edward</AttendingPhyMNE> <ConsultingPhyMNE>f pt consult dr edward</ConsultingPhyMNE> <FamilyPhyMNE>f pt fam dr edward</FamilyPhyMNE> <OtherPhyMNE>f pt other dr edward</OtherPhyMNE> < PrimaryPhyMNE>f pt prim care dr edward</PrimaryPhyMNE> <ReferringPhyMNE>f pt referring dr edward</ReferringPhyMNE> Patient Name: CHARITY BARRIOS Unit Number: [id number] Dictated: 11/18/161632 Transcribed: 11/18/161632 DAVID Printed Date/Time: [~ rep prt dt]/[~ rep prt tm] [~ rep ct labl] - [~ rep ct ivnm] [facility] [place] [place] [address] Dictated: 11/18/161632 Transcribed: 11/18/161632 JA Printed Date/Time: [~ rep prt dt]/[~ rep prt tm] [~ rep ct labl] - [~ rep ct ivnm] CHEST ONE VIEW PORTABLE CLINICAL HISTORY: Weakness. Altered mental status. COMPARISON STUDY: Chest radiograph June 27, 2016. FINDINGS: Marked enlargement of the cardiac silhouette is unchanged. There is no pneumothorax. Hazy bibasilar opacities are noted. There is no definite pleural effusion. Blunting of left costophrenic angle is likely chronic. Evaluation is difficult due to suboptimal penetration related to portable technique and body habitus. IMPRESSION: 1. Technically compromised given portable technique and body habitus with suboptimal penetration. 2. Hazy bibasilar opacities with pulmonary vascular congestion. Electronically signed by: Santana Lundy M.D. 11/18/2016 4:36 PM Dictated Date/Time: 11/18/2016 4:33 PM The status of this report is Signed. Draft = Not yet reviewed or approved by Radiologist. Signed = Reviewed and approved by Radiologist. <AttendingPhy></AttendingPhy> <FamilyPhy>Bin Patel M.D.</FamilyPhy> < PrimaryPhy>Bin Patel M.D.</PrimaryPhy> <UnitNumber>[id number]</ UnitNumber> <VisitNumber>[id number]</VisitNumber> <PatientName>CHARITY BARRIOS </PatientName> <DateOfBirth>1955</DateOfBirth> <Location>C.EDB</Location> <ServiceDate>11/18/16</ServiceDate> <MNE>ESINDI</MNE> <OrderingPhy>Ana Crain M.D.</OrderingPhy> <OrderingPhyMNE>f rep ord dr edward</OrderingPhyMNE> < DictatingPhyMNE>f rep dict dr edward</DictatingPhyMNE> <CCListMNE>f rep ct wagner</ CCListMNE> <AdmittingPhyMNE>f pt admit dr edward</AdmittingPhyMNE> <AttendingPhyMNE >f pt attend dr edward</AttendingPhyMNE> <ConsultingPhyMNE>f pt consult dr edward</ConsultingPhyMNE> <FamilyPhyMNE>f pt fam dr edward</FamilyPhyMNE> <OtherPhyMNE>f pt other dr edward</OtherPhyMNE> < PrimaryPhyMNE>f pt prim care dr edward</PrimaryPhyMNE> <ReferringPhyMNE>f pt referring dr edward</ReferringPhyMNE> EKG EKG shows normal sinus rhythm at 88 bpm, right axis deviation, no acute ST-T changes. Impression Assessment and Plan Acute respiratory failure with hypoxia and hypercapnia secondary to medical noncompliance without use of CPAP at at bedtime as directed and questionable use of oral medications. The patient be admitted to the telemetry unit. We'll continue BiPAP begun in the emergency department. Repeat ABG in [address] on Zosyn IV, vancomycin IV, levofloxacin IV, and Xopenex Atrovent nebulizers. Diabetes mellitus--hold on usual 10 units of Lantus insulin subcutaneous every [address] Accu-Cheks before meals and at bedtime with NovoLog coverage. Bipolar disorder--we'll continue Keppra 500 mg by mouth twice a day as IV dosing. DVT prophylaxis --continue Lovenox 40 mg subcutaneous every 24 hours. Level of Care Telemetry Advanced Directives Existing Advance Directive: No Existing Living Will: No Existing Power of Supervisor Particleboard: No Resuscitation Status FULL RESUSCITATION VTE Prophylaxis VTE Risk Assessment Done? Y/N: Yes Risk Level: High Given or contraindicated: SCD's
[2016-11-18] MEDS ORDERED: VANCOMYCIN INJ 2,700 MG in SODIUM CHLORIDE 0.9% 500ML 500 ML IV SCH (20:30)
[2016-11-18] MEDS ORDERED: PIPERACILL/TAZOBAC CONSULT ACTIVE PRN (20:45)
[2016-11-18] MEDS ORDERED: VANCOMYCIN CONSULT ACTIVE PRN (20:45)
[2016-11-18] MEDS ORDERED: LEVALBUTEROL/IPRATROPIUM NEB INH SCH (21:00)
[2016-11-18] MEDS ORDERED: PIPERACILL/TAZOBAC IV 4.5 GM in DEXTROSE 5% 100ML 100 ML IV SCH (21:00)
[2016-11-18 21:15] VITALS: BP 124/76; PULSE 89; TEMP 36.8; O2SAT 97; Ht 152.4 cm; Wt 99.2 kg
[2016-11-18 21:18] VITALS: PULSE 84; O2SAT 96
[2016-11-18] MEDS: NYSTATIN CR 15 GM TUBE EXT SCH (22:10)
[2016-11-18] MEDS: ENOXAPARIN 40 MG/0.4 ML SYR SC SCH (22:11)
[2016-11-18 22:25] LABS: ARTERIAL BLOOD GAS BASE EXCESS 10.5 mEq/L (-9-1.8); ARTERIAL BLOOD GAS HCO3 38 mmol/L (19-24); ARTERIAL BLOOD GAS PO2 61 mm/Hg (80-95); ARTERIAL BLOOD GAS pH 7.38 (7.35-7.45)
--- NOTE | 2016-11-18 22:29 | Pharmacy Progress Note ---
Pharmacy Abx Initial Consult Date of Service Nov 18, 2016. Pharmacy Dosing Scope Date of Consult: 11/18/16 Consultation requested by: Dr. Suarez (automatic pharmacy consults for ordered meds) Pharmacy is consulted to manage IV Vancomycin/Zosyn dosing therapy, order appropriate labs and adjust drug dose/frequency. Subjective The patient is a 61 year old female admitted on Nov 18, 2016 at 19:12. Objective Height (Feet): 5 Height (Inches): 0.00 Weight (Kilograms): 105.600 Vital Signs (Past 12Hrs) Vital Signs Past 12 Hours Date Time Temp Pulse Resp B/P (MAP) Pulse Ox O2 Delivery O2 Flow Rate FiO2 11/18/16 21:18 84 96 2.0 11/18/16 21:15 36.8 89 20 124/76 97 BiPAP 2.0 11/18/16 20:00 78 18 120/85 92 BiPAP 11/18/16 18:36 78 11/18/16 18:28 88 95 11/18/16 18:00 77 19 113/60 99 Nasal Cannula 3.0 11/18/16 16:00 76 24 120/62 100 Nasal Cannula 3.0 11/18/16 14:42 94 Nasal Cannula 2.0 11/18/16 14:31 37.0 90 16 148/78 95 Nasal Cannula 2.0 11/18/16 14:30 88 Lab Results (24Hrs) Test 11/18/16 14:53 11/18/16 15:03 11/18/16 16:14 11/18/16 16:40 White Blood Count 5.11 K/uL (4.8-10.8) Red Blood Count 4.51 M/uL (4.2-5.4) Hemoglobin 12.2 g/dL (12.0-16.0) Hematocrit 41.7 % (37-47) Mean Corpuscular Volume 92.5 fL (80-100) Mean Corpuscular Hemoglobin 27.1 pg (25-34) Mean Corpuscular Hemoglobin Concent 29.3 g/dl (32-36) Platelet Count 222 K/uL (130-400) Mean Platelet Volume 9.4 fL (7.4-10.4) Neutrophils (%) (Auto) 74.8 % Lymphocytes (%) (Auto) 13.1 % Monocytes (%) (Auto) 11.5 % Eosinophils (%) (Auto) 0.2 % Basophils (%) (Auto) 0.2 % Neutrophils # (Auto) 3.82 K/uL (1.4-6.5) Lymphocytes # (Auto) 0.67 K/uL (1.2-3.4) Monocytes # (Auto) 0.59 K/uL (0.11-0.59) Eosinophils # (Auto) 0.01 K/uL (0-0.5) Basophils # (Auto) 0.01 K/uL (0-0.2) RDW Standard Deviation 49.9 fL (36.4-46.3) RDW Coefficient of Variation 14.6 % (11.5-14.5) Immature Granulocyte % (Auto) 0.2 % Immature Granulocyte # (Auto) 0.01 K/uL (0.00-0.02) Hypersegmented Polys 1+ Toxic Granulation 1+ Basophilic Stippling 1+ Stomatocytes 1+ Prothrombin Time 10.7 SECONDS (9.0-12.0) Prothromb Time International Ratio 1.0 (0.9-1.1) Activated Partial Thromboplast Time 26.4 SECONDS (21.0-31.0) Partial Thromboplastin Ratio 1.0 Sodium Level 131 mmol/L (136-145) Potassium Level 5.8 mmol/L (3.5-5.1) Chloride Level 92 mmol/L (98-107) Carbon Dioxide Level 37 mmol/L (21-32) Anion Gap 2.0 mmol/L (3-11) Blood Urea Nitrogen 10 mg/dl (7-18) Creatinine 0.85 mg/dl (0.60-1.20) Est Creatinine Clear Calc Drug Dose 76.3 ml/min Estimated GFR () 85.7 Estimated GFR (Non- 74.0 BUN/Creatinine Ratio 11.8 (10-20) Random Glucose 153 mg/dl (70-99) Calcium Level 8.7 mg/dl (8.5-10.1) Magnesium Level 2.3 mg/dl (1.8-2.4) Total Bilirubin 0.3 mg/dl (0.2-1) Direct Bilirubin 0.1 mg/dl (0-0.2) Aspartate Amino Transf (AST/SGOT) 28 U/L (15-37) Alanine Aminotransferase (ALT/SGPT) 22 U/L (12-78) Alkaline Phosphatase 73 U/L (45-117) Total Creatine Kinase 167 U/L (26-192) Creatine Kinase MB 2.0 ng/ml (0.5-3.6) Creatine Kinase MB Ratio 1.2 (0-3.0) Total Protein 7.8 gm/dl (6.4-8.2) Albumin 3.8 gm/dl (3.4-5.0) Bedside Glucose 153 mg/dl (70-90) Bedside Troponin I < 0.030 ng/ml (0-0.045) Urine Color YELLOW Urine Appearance CLEAR (CLEAR) Urine pH 8.0 (4.5-7.5) Urine Specific Lewis 1.013 (1.000-1.030) Urine Protein 2+ (NEG) Urine Glucose (UA) NEG (NEG) Urine Ketones NEG (NEG) Urine Occult Blood NEG (NEG) Urine Nitrite NEG (NEG) Urine Bilirubin NEG (NEG) Urine Urobilinogen NEG (NEG) Urine Leukocyte Esterase NEG (NEG) Urine WBC (Auto) 0 /hpf (0-5) Urine RBC (Auto) 0-4 /hpf (0-4) Urine Hyaline Casts (Auto) 0 /lpf (0-5) Urine Epithelial Cells (Auto) 5-10 /lpf (0-5) Urine Bacteria (Auto) NEG (NEG) Test 11/18/16 16:46 11/18/16 22:00 Arterial Blood pH 7.33 (7.35-7.45) Arterial Blood Partial Pressure CO2 77 mmHg (35-46) Arterial Blood Partial Pressure O2 74 mm/Hg (80-95) Arterial Blood HCO3 40 mmol/L (19-24) Arterial Blood Oxygen Saturation 93.9 % (90-95) Arterial Blood Base Excess 10.7 mEq/L (-9-1.8) Arterial Blood Gas Delivery 1L Christiano Test POS (POS) Ammonia 71.0 umol/L (11-32) Micro Results Date/Time Source Procedure Growth Status 11/18/16 21:50 Nasal MRSA DNA Surveillance Screen Pending Received Risk Factors for Resistance * History of infection with a multidrug-resistant organism: VRE, MRSA Assessment & Plan Assessment 61 year old female w/ hx of DM type 2, CHF, bipolar disorder admitted with acute resp failure w/ hypoxia Plan Vancomycin IV * Loading dose: Vancomycin 2700mg IV x 1 dose (25.5mg/kg) * Maintenance dose: Vancomycin 1350mg IV q12h (12.8mg/kg) * Goal trough level: 15-20mcg/mL * Trough level ordered for: 11/20/16 0600 dose * A less than traditional dose has been selected due to likelihood of drug accumulation in obese patients Piperacillin/tazobactam * 4.5gm bolus administered over 30 minutes, then 4.5gm IV extended infusion every 8 hours for CrCl greater than 20 mL/min * Aggressive dosing selected due to: critically ill status/BMI 35 or more Pharmacy will continue to follow and will adjust dose/frequency as necessary. Thank you.
[2016-11-18] MEDS ORDERED: NSS + 20MEQ KCL 1000ML 1,000 ML IV SCH (22:30)
[2016-11-18 22:31] LABS: ALLEN TEST POS (POS); O2 ADMINISTRATION 2L
[2016-11-18] MEDS ORDERED: LEVETIRACETAM IV 500 MG in DEXTROSE 5% 100ML 100 ML IV SCH (23:00)
[2016-11-18 23:08] VITALS: BP 101/68; PULSE 77; TEMP 36.8; O2SAT 98
[2016-11-18 23:14] VITALS: PULSE 76; O2SAT 97
[2016-11-19] VITALS (11 sets, daily range): BP systolic 104–142; BP diastolic 58–78; PULSE 74–87; TEMP 36.4–36.9; O2SAT 86–100
[2016-11-19] MEDS ORDERED: LEVOFLOXACIN / D5W 500 MG in PREMIXED IN D5W 100 ML IV SCH (02:00)
[2016-11-19] MEDS: IPRATROPIUM BROMIDE NEB SOLN 0.02% 2.5 ML VIAL INH SCH ×4 (02:28→14:16)
[2016-11-19] MEDS: LEVALBUTEROL 1.25MG/0.5ML NEB INH SCH ×4 (02:28→14:16)
[2016-11-19] MEDS ORDERED: VANCOMYCIN INJ 1,350 MG in SODIUM CHLORIDE 0.9% 250ML 250 ML IV SCH (06:00)
[2016-11-19] MEDS ORDERED: PIPERACILL/TAZOBAC IV 4.5 GM in DEXTROSE 5% 100ML 100 ML IV SCH (06:00)
[2016-11-19 06:37] LABS: CREATININE 0.8 mg/dl (0.60-1.20)
[2016-11-19 09:02] LABS: BUN/CREATININE RATIO 13.8 (10-20); CREATININE 0.81 mg/dl (0.60-1.20); POTASSIUM 6.6 mmol/L (3.5-5.1)
[2016-11-19 09:12] LABS: THYROID STIMULATING HORMONE 0.693 uIu/ml (0.300-4.500)
[2016-11-19 09:37] LABS: CALCIUM 8.8 mg/dl (8.5-10.1)
[2016-11-19] MEDS ORDERED: POLYETHYLENE (MIRALAX) 17 GM PACK PO PRN (10:00)
[2016-11-19] MEDS ORDERED: GLUCOSE 40% GEL 15 GM TUBE PO PRN (10:00)
[2016-11-19] MEDS ORDERED: LACTULOSE SYRUP 10 GM/15 ML BTL 473 ML PO ONE (10:00)
[2016-11-19] MEDS ORDERED: GLUCOSE 5 GM CHEWABLE TABLET PO PRN (10:00)
[2016-11-19] MEDS: NYSTATIN CR 15 GM TUBE EXT SCH ×2 (11:09→21:10)
[2016-11-19] MEDS ORDERED: GLUCAGON FOR INJ 1 MG VIAL SQ PRN (11:15)
[2016-11-19] MEDS ORDERED: DEXTROSE 50% 50 ML SYR IV PRN (11:15)
[2016-11-19] MEDS: INSULIN ASPART 100 UNITS/ML 3 ML PEN SQ SCH ×3 (11:30→21:00)
[2016-11-19] MEDS: IPRATROPIUM BROMIDE/ALBUTEROL respimat INH INH SCH ×3 (12:30→21:11)
[2016-11-19] MEDS: BENZONATATE 100MG CAP PO SCH ×2 (14:37→21:13)
[2016-11-19 15:48] LABS: CALCIUM 8.6 mg/dl (8.5-10.1); CREATININE 0.87 mg/dl (0.60-1.20)
[2016-11-19] MEDS: FUROSEMIDE 80 MG TAB PO SCH (17:28)
--- NOTE | 2016-11-19 17:56 | Progress Note ---
Subjective Date of Service: Nov 19, 2016. Subjective Pt evaluation today including: conversation w/ patient, conversation w/ [employer] product consultant Pt is feeling improved. She has been awake and speaking, no issues with swallowing. Tolerated breakfast. She tells me that she did stop wearing her CPAP at home, but is unsure for how many days. She also stopped taking her lactulose for several days due to increased frequency of bowel movements. No diarrhea. She tells me she takes lactulose for elevated ammonia levels, but cannot provide further information. She states she continued to take her other medications, specifically her lithium and K supp. Pt denies fever, SOB, chest pain, abd pain, n/v/c/d, LE pain or swelling. Problem List Medical Problems: (1) Altered mental status Status: Acute (2) Change in mental status Status: Acute (3) CHF (congestive heart failure) Status: Acute (4) CHF (congestive heart failure) Status: Acute (5) CO2 retention Status: Acute (6) Fall Status: Acute (7) Hyperammonemia Status: Acute (8) Hypercarbia Status: Acute (9) Hyperglycemia Status: Acute (10) Hypokalemia Status: Acute (11) Hyponatremia Status: Acute (12) Hyponatremia Status: Acute (13) Hyponatremia Status: Acute (14) SOB (shortness of breath) Status: Acute (15) Weakness Status: Acute Review of Systems All Other Systems: Reviewed and Negative Objective Vital Signs Date Time Temp Pulse Resp B/P (MAP) Pulse Ox O2 Delivery O2 Flow Rate FiO2 11/19/16 15:14 36.9 84 16 127/78 (94) 98 Nasal Cannula 2.0 11/19/16 14:16 87 18 86 Nasal Cannula 2.0 11/19/16 12:10 36.7 81 20 130/75 (93) 99 Nasal Cannula 2.0 11/19/16 11:55 36.7 81 20 99 2.0 11/19/16 11:33 36.4 85 18 142/74 (96) 96 11/19/16 08:00 Nasal Cannula 2.0 11/19/16 07:35 36.8 85 16 138/70 (92) 96 11/19/16 07:27 85 18 99 Nasal Cannula 2.0 11/19/16 04:00 BiPAP 2.0 11/19/16 03:42 36.5 80 20 104/58 (73) 96 BiPAP 11/19/16 02:30 74 96 2.0 11/19/16 02:28 74 18 96 BiPAP/CPAP 2.0 11/19/16 00:00 BiPAP 2.0 11/18/16 23:14 76 97 2.0 11/18/16 23:08 36.8 77 24 101/68 (79) 98 BiPAP 11/18/16 21:18 84 96 2.0 11/18/16 21:15 36.8 89 20 124/76 97 BiPAP 2.0 11/18/16 20:00 78 18 120/85 92 BiPAP 11/18/16 18:36 78 11/18/16 18:28 88 95 11/18/16 18:00 77 19 113/60 99 Nasal Cannula 3.0 Physical Exam General Appearance: WD/WN, no apparent distress Eyes: normal inspection, EOMI Respiratory/Chest: lungs clear, normal breath sounds Cardiovascular: regular rate, rhythm, no edema Abdomen: non tender, soft Extremities: non-tender, no pedal edema 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: alert, normal mood/affect Skin: normal color, warm/dry Laboratory Results Last 24 Hours Test 11/18/16 22:10 11/19/16 05:46 11/19/16 06:21 11/19/16 09:48 Arterial Blood pH 7.38 Arterial Blood Partial Pressure CO2 67 mmHg Arterial Blood Partial Pressure O2 61 mm/Hg Arterial Blood HCO3 38 mmol/L Arterial Blood Oxygen Saturation 91.0 % Arterial Blood Base Excess 10.5 mEq/L Arterial Blood Gas Delivery 2L Christiano Test POS Sodium Level 131 mmol/L Potassium Level 6.6 mmol/L Chloride Level 94 mmol/L Carbon Dioxide Level 36 mmol/L Anion Gap 1.0 mmol/L Blood Urea Nitrogen 11 mg/dl Creatinine 0.81 mg/dl Est Creatinine Clear Calc Drug Dose 79.8 ml/min Estimated GFR () 90.9 Estimated GFR (Non- 78.4 BUN/Creatinine Ratio 13.8 Random Glucose 68 mg/dl Calcium Level 8.8 mg/dl Thyroid Stimulating Hormone (TSH) 0.693 uIu/ml Bedside Glucose 71 mg/dl Ammonia 41.0 umol/L Rowena Level 0.6 mMOL/L Test 11/19/16 11:13 11/19/16 14:40 11/19/16 16:27 Bedside Glucose 170 mg/dl 208 mg/dl Sodium Level 127 mmol/L Potassium Level 6.0 mmol/L Chloride Level 91 mmol/L Carbon Dioxide Level 29 mmol/L Anion Gap 7.0 mmol/L Blood Urea Nitrogen 13 mg/dl Creatinine 0.87 mg/dl Est Creatinine Clear Calc Drug Dose 74.3 ml/min Estimated GFR () 83.3 Estimated GFR (Non- 71.9 BUN/Creatinine Ratio 15.0 Random Glucose 223 mg/dl Calcium Level 8.6 mg/dl Assessment and Plan Acute respiratory failure with hypoxia and hypercapnia: secondary to medical noncompliance without use of CPAP at at bedtime as directed and questionable use of oral medications. Stable on O2. Repeat ABG in 3 hours[address] Placed on Zosyn IV, vancomycin IV, levofloxacin IV on admission, no s/sx of infections and will d/c TSH WNL Cardiology was consulted by pt's as they are neighbors, c/s placed Weakness: likely multifactorial given above with hyperK, elevated ammonia levels Monitor Hyperkalemia: d/c IVF with K Pt was taking home K supplement but not lactulose Neg for tele changes Resume lactulose and monitor, repeat K after bowel movements is decreased Elevated ammonia levels: resume lactulose and monitor Diabetes mellitus--hold on usual 10 units of Lantus insulin subcutaneous every [address] Accu-Cheks before meals and at bedtime with NovoLog coverage. Bipolar disorder--resume home meds Rowena level was with therapeutic range DVT prophylaxis --continue Lovenox 40 mg subcutaneous every 24 hours. It appears that when leaves town, pt decompensates due to medical noncompliance. Pt should have caregivers or other home support when he is out of town.
[2016-11-19] MEDS ORDERED: NON-FORMULARY MEDICATION (Lithium Carbonate 300 MG) PO SCH (20:00)
[2016-11-19] MEDS: ENOXAPARIN 40 MG/0.4 ML SYR SC SCH (21:10)
[2016-11-19] MEDS: LITHIUM CARBONATE SR 300 MG TAB (LITHOBID) PO SCH (21:12)
[2016-11-19] MEDS: GUAIFENESIN 600 MG TABCR PO SCH (21:12)
[2016-11-19] MEDS: INSULIN GLARGINE SOLOSTAR 100 UNITS/ML 3 ML PEN SC SCH (22:05)
[2016-11-20] MEDS ORDERED: VANCOMYCIN TROUGH SCH (05:30)
[2016-11-20] MEDS: BENZONATATE 100MG CAP PO SCH ×3 (06:13→21:02)
[2016-11-20 07:33] VITALS: BP 117/71; PULSE 92; TEMP 36.9; O2SAT 100
[2016-11-20] MEDS: GUAIFENESIN 600 MG TABCR PO SCH ×2 (07:58→20:58)
[2016-11-20] MEDS: FUROSEMIDE 80 MG TAB PO SCH ×2 (07:58→16:26)
[2016-11-20] MEDS: MAGNESIUM OXIDE 400 MG TAB PO SCH (07:58)
[2016-11-20] MEDS: METOLAZONE 5 MG TAB PO SCH (07:58)
[2016-11-20] MEDS: IPRATROPIUM BROMIDE/ALBUTEROL respimat INH INH SCH ×4 (07:59→20:56)
[2016-11-20] MEDS: CHOLECALCIFEROL 1000 INTER.UNIT TAB PO SCH (07:59)
[2016-11-20] MEDS: LISINOPRIL 5 MG TAB PO SCH (07:59)
[2016-11-20] MEDS: NYSTATIN CR 15 GM TUBE EXT SCH ×2 (07:59→20:57)
[2016-11-20 09:01] LABS: BUN/CREATININE RATIO 11.2 (10-20); CALCIUM 8.7 mg/dl (8.5-10.1); CREATININE 0.81 mg/dl (0.60-1.20); POTASSIUM 4.5 mmol/L (3.5-5.1)
[2016-11-20] MEDS: INSULIN ASPART 100 UNITS/ML 3 ML PEN SQ SCH ×4 (09:13→21:01)
[2016-11-20] MEDS: INSULIN GLARGINE SOLOSTAR 100 UNITS/ML 3 ML PEN SC SCH ×2 (09:21→21:02)
[2016-11-20] MEDS: ACETAMINOPHEN 325 MG TAB PO PRN ×2 (10:38→17:09)
[2016-11-20 15:21] VITALS: BP 116/74; PULSE 78; TEMP 36.5; O2SAT 96
--- NOTE | 2016-11-20 15:49 | Progress Note ---
Subjective Date of Service: Nov 20, 2016. Subjective Pt evaluation today including: conversation w/ patient, physical exam, chart review, lab review, review of studies, review of inpatient medication list Pain: no pain reported Voiding: rao catheter in place Pt is feeling much better. Pt states that nobody told her that she has a sleep apnea and she need to wear CPAP, however she uses BIPAP which is broken and her is trying to get it fixed.Pt tells me she takes lactulose for elevated ammonia levels, but cannot provide further information. Pt states she continued to take her other medications, specifically her lithium and K supp. Pt denies fever, SOB, chest pain, abd pain, n/v/c/d, LE pain or swelling. Problem List Medical Problems: (1) Altered mental status Status: Acute (2) Change in mental status Status: Acute (3) CHF (congestive heart failure) Status: Acute (4) CHF (congestive heart failure) Status: Acute (5) CO2 retention Status: Acute (6) Fall Status: Acute (7) Hyperammonemia Status: Acute (8) Hypercarbia Status: Acute (9) Hyperglycemia Status: Acute (10) Hypokalemia Status: Acute (11) Hyponatremia Status: Acute (12) Hyponatremia Status: Acute (13) Hyponatremia Status: Acute (14) SOB (shortness of breath) Status: Acute (15) Weakness Status: Acute Review of Systems All Other Systems: Reviewed and Negative Medications Medications (Trade) Dose Ordered Sig/Nanette Route Start Time Stop Time Status Last Admin Dose Admin Furosemide (Lasix Tab) 80 mg BID17 PO 11/19/16 17:00 12/19/16 20:59 11/20/16 07:58 80 MG Guaifenesin (Mucinex Contr Rel Tab) 600 mg Q12 PO 11/19/16 21:00 12/19/16 20:59 11/20/16 07:58 600 MG Insulin Glargine (Lantus Solostar Pen) 8 unit Q12 SC 11/19/16 21:00 12/19/16 20:59 11/20/16 09:21 8 UNIT Lisinopril (Zestril Tab) 5 mg QAM PO 11/20/16 08:00 12/20/16 08:59 11/20/16 07:59 5 MG [place] Carbonate (Lithobid Tab) 600 mg HS PO 11/19/16 21:00 12/19/16 20:59 11/19/16 21:12 600 MG Magnesium Oxide (Mag-Ox Tab) 400 mg QAM PO 11/20/16 08:00 12/20/16 08:59 11/20/16 07:58 400 MG Metolazone (Zaroxolyn Tab) 5 mg DAILY PO 11/20/16 08:00 12/20/16 08:59 11/20/16 07:58 5 MG Cholecalciferol (Vitamin D Tab) 1,000 inter.unit QAM PO 11/20/16 08:00 12/20/16 08:59 11/20/16 07:59 1,000 INTER.UNIT Objective Vital Signs Date Time Temp Pulse Resp B/P (MAP) Pulse Ox O2 Delivery O2 Flow Rate FiO2 11/20/16 15:21 36.5 78 18 116/74 (88) 96 Nasal Cannula 2.0 11/20/16 08:30 Nasal Cannula 2.0 11/20/16 07:33 36.9 92 20 117/71 (86) 100 Nasal Cannula 2.0 11/19/16 23:59 Nasal Cannula 2.0 11/19/16 23:32 36.7 80 20 111/68 (82) 100 Nasal Cannula 2.0 11/19/16 20:00 Nasal Cannula 2.0 11/19/16 16:00 Nasal Cannula 2.0 Physical Exam Comments: General Appearance: WD/WN, no apparent distress Eyes: normal inspection, EOMI Respiratory/Chest: lungs clear, normal breath sounds Cardiovascular: regular rate, rhythm, no edema Abdomen: non tender, soft Extremities: non-tender, no pedal edema 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: alert, normal mood/affect Skin: normal color, warm/dry Laboratory Results Last 24 Hours Test 11/19/16 16:27 11/19/16 20:37 11/20/16 07:58 11/20/16 08:09 Bedside Glucose 208 mg/dl 174 mg/dl 93 mg/dl Sodium Level 136 mmol/L Potassium Level 4.5 mmol/L Chloride Level 93 mmol/L Carbon Dioxide Level 41 mmol/L Anion Gap 2.0 mmol/L Blood Urea Nitrogen 9 mg/dl Creatinine 0.81 mg/dl Est Creatinine Clear Calc Drug Dose 78.4 ml/min Estimated GFR () 90.9 Estimated GFR (Non- 78.4 BUN/Creatinine Ratio 11.2 Random Glucose 96 mg/dl Calcium Level 8.7 mg/dl Ammonia 24.0 umol/L Test 11/20/16 11:17 Bedside Glucose 164 mg/dl Assessment and Plan Acute respiratory failure with hypoxia and hypercapnia: secondary to medical noncompliance without use of CPAP at at bedtime as directed and questionable use of oral medications. Stable on O2. Repeat ABG in 3 hours. Placed on Zosyn IV, vancomycin IV, levofloxacin IV on admission, no s/sx of infections and will d/c TSH WNL Cardiology was consulted by pt's as they are neighbors, c/s placed Pulmonary consulted- appreciate input. Weakness: likely multifactorial given above with hyperK, elevated ammonia levels Monitor Hyperkalemia: d/c IVF with K Pt was taking home K supplement but not lactulose Neg for tele changes, K levels 4.5. Elevated ammonia levels: resume lactulose, last ammonia level is 24 Diabetes mellitus--hold on usual 10 units of Lantus insulin subcutaneous every [address] Accu-Cheks before meals and at bedtime with NovoLog coverage. Bipolar disorder--resume home meds [place] level was with therapeutic range DVT prophylaxis --continue Lovenox 40 mg subcutaneous every 24 hours. It appears that when leaves town, pt decompensates due to medical noncompliance. Pt should have caregivers or other home support when he is out of town. Continued [facility] stay due to: multiple IV medications needed, other Discharge planning: home with home health
--- NOTE | 2016-11-20 16:27 | Pulmonary Consultation ---
History General Date of Service: Nov 20, 2016. Stated Complaint: Acute Respiratory Failure With Hypoxia HPI The patient is a 61 year old female who presents to [facility] with complaints of Acute Respiratory Failure With Hypoxia. The patient's primary care provider is Bin Patel M.D.. 61-year-old female with complex past medical history: Diastolic heart failure, chronic hypercapnia/OHV, hypertension, possible seizure disorder and bipolar/ schizoaffective disorder. She was admitted through the ED for progressive weakness and altered level of consciousness. The patients was away on a business trip for the last 10 days and believes his failed to use her CPAP device and its unknown her fluid intake and medication compliance. The also noted weight gain, leg pain. She was admitted for a similar episode in June of 2016 and was d/c at a weight of 96.6Kg (214lbs) she returns with a weight of 105.6Kg (233lbs). 06/29/16: 96.9Kg 214lbs 11/19/16: 105.6Kg 233lbs Current Work-Up WBC: 5K CO2: 41 BUN/Cr: 9/0.81 Ammonia: 24 Spivey: 0.6 (WNL) ABG (11/18/16-- 1646) 7.33/77/74/40 (1Lnc) A-a gradient: none ABG (11/18/16-- 2210) 7.38/67/61/38 (2Lnc) A-a gradient: 42 CXR (11/18/16 compared to 06/27/16) Bibasilar opacification with L>R and signs of volume overload CT Head: No acute processes Previous Work-Up Nocturnal Oximetry Study (06/23-05/29) Longest continuous time with SaO2 <89% 2 minutes & 44 seconds Cardiac Echo (12/24/15) LV: EF=50-55%, Type 1 diastolic dysfunction RV: severely dilated, LA: mildly dilated RA: moderately dilated TR: mod-sever RSVP: 43mmHg PFTs attempted 11/29/13 but secondary to coughing data was unreliable ABGS: 06/22/16 (13:23) 7.34/88/111/46 6Lnc A-a: none 06/22/16 (0900) 7.29/97/93/46 6Lnc A-a: none 06/21/16 (1450) 7.30/91/71/44 2Lnc A-a: none 06/27/16 (1000) 7.40/88/66/53 2Lnc A-a: none 06/26/16 (1248) 7.43/86/65/57 2Lnc A-a: none Microbiology: 1) URINE (11/28/07) VRE 2) URINE (11/18/07) Klebsiella and Citrobacter 3) URINE (11/11/07) VRE 4) URIN (11/09/07) VRE Review of Systems Patient is a poor historian and unable to complete review of systems Past Medical History Past Medical History: 1. Cardiomyopathy 2. Complex partial seizure 3. Congestive heart failure 4. Diabetic nephropathy 5. Hypercapnia 6. Hypertension 7. Obesity 8. Paranoid schizophrenia 9. Nephropathy 10. Pulmonary hypertension 11. Respiratory failure 12. Tremor 13. Possible partial complex seizure 14. Hypoxemia 15. Elevated ammonia 16. KORI: Poorly compliant with CPAP 17. Oxygen independent 2 L at home Past Medical History: bipolar disorder, congestive heart failure, diabetes, renal disease, other Past Surgical History: no surgical history Family History FH: HTN (hypertension) FH: diabetes mellitus Heart disease HTN (hypertension) diabetes mellitus Heart disease Social History Hx Tobacco Use In Past Year: No Smoking Status: Never Smoker Alcohol: never Drug Use: none Marital status: Housing status: lives with significant other Occupational Status: retired Hx Tobacco Use In Past Year?: No Smoking Status: Never Smoker Alcohol: never Drug Use: none Marital status: Housing status: lives with significant other Occupational Status: retired Immunizations History of Influenza Vaccine: Unknown Influenza Vaccine Date: Sep 27, 2009 History of Tetanus Vaccine?: Unknown History of Pneumococcal: No Pneumococcal Date: Jun 28, 2007 History of Hepatitis B Vaccine: Unknown History of MDRO History of MDRO: Yes Type of MDRO: VRE, MRSA Allergies Coded Allergies: No Known Allergies (Verified , `, 11/18/16) Current Medications Reported Home Medications Medications Dose Route/Sig Max Daily Dose Days Date Category Dose Instructions Chronulac (Lactulose) 10 Gm/15 Ml Syrp 1 Dose PO DIRECTED 11/18/16 Reported Metolazone 5 Mg Tab 5 Mg PO DAILY 11/18/16 Reported [place] Carbonate 300 Mg Cap 300 Mg PO BID 11/18/16 Reported Haloperidol Decanoate 100 Mg/Ml Inj 1 Dose SQ DIRECTED 11/18/16 Reported Enoxaparin Sodium (Enoxaparin) 40 Mg/0.4 Ml Inj 40 Mg SC Q24H 7 06/29/16 Rx Mucinex Ext Rel (Guaifenesin) 600 Mg Tabcr 600 Mg PO Q12 7 06/29/16 Rx Lantus Solostar (Insulin Glargine) 100 Unit/Ml Inj 10 Unit SC Q12 30 06/29/16 Rx Miralax (Polyethylene) 17 Gm Pow 17 Gm PO DAILY PRN 30 06/29/16 Rx Glutose 15 (Dextrose (Diabetic Use)) 40 % Gel 15-30 Gm PO UD PRN 30 06/29/16 Rx Dex4 (Glucose-Vitamin C) 1 Chw Chw 4-8 Tabs PO UD PRN 30 06/29/16 Rx Nystatin 45 Appln/15 Gm Cr 1 Appln EXT BID 30 06/29/16 Rx Tessalon Perles (Benzonatate) 200 Mg Cap 200 Mg PO Q8 06/21/16 Reported Combivent Respimat (Ipratropium-Albuterol) 1 Aer Aer 1 Puffs INH QID 02/03/16 Reported Furosemide 80 Mg Tab 80 Mg PO BID 12/24/15 Reported Klor-Con M20 (Potassium Chloride) 20 Meq Tabcr 60 Meq PO UD 04/09/15 Reported 3 tablets in the morning, 2 tablets at night Lisinopril 5 Mg Tab 5 Mg PO QAM 04/09/15 Reported Levetiracetam (Levetiractam) 500 Mg Tab 500 Mg PO BID 04/09/15 Reported Tylenol (Acetaminophen) 325 Mg Tab 650 Mg PO Q4 PRN 01/04/15 Reported DO NOT EXCEED 3GM/24HRS Novolog (Insulin Aspart) Inj 10 Units SQ UD 01/04/15 Reported ONLY IF BLOOD SUGAR IS >180 Mag-Ox (Magnesium Oxide) 400 Mg Tab 400 Mg PO QAM 01/04/15 Reported Lithobid Ext Rel (Spivey Carbonate) 300 Mg Tab 600 Mg PO HS 01/04/15 Reported Vitamin D3 (Cholecalciferol) 1,000 Unit Cap 1,000 Inter.unit PO QAM 03/03/13 Reported Physical Physical Exam Vital Signs: Date Time Temp Pulse Resp B/P (MAP) Pulse Ox O2 Delivery O2 Flow Rate FiO2 11/20/16 15:21 36.5 78 18 116/74 (88) 96 Nasal Cannula 2.0 11/20/16 08:30 Nasal Cannula 2.0 11/20/16 07:33 36.9 92 20 117/71 (86) 100 Nasal Cannula 2.0 11/19/16 23:59 Nasal Cannula 2.0 11/19/16 23:32 36.7 80 20 111/68 (82) 100 Nasal Cannula 2.0 11/19/16 20:00 Nasal Cannula 2.0 General Appearance: NO APPARENT DISTRESS Head: NORMOCEPHALIC, ATRAUMATIC Eyes: NO DISCHARGE, EOMI ENT: NORMAL EAR EXAM, NORMAL NASAL EXAM, other (patient not perform a full oral examination) Neck: NORMAL RANGE OF MOTION, NO TENDERNESS, TRACHEA MIDLINE Respiratory: other (decreased breath sounds bilaterally/ultrasonic evaluation shows B-lines about one third up the hemithoraces bilaterally no pleural effusions bilaterally) Cardiovasular: REGULAR RATE/RHYTHM, NORMAL S1S2, other (distant heart sounds I' m unable to auscultate for murmurs rubs or gallops) Abdomen: NON TENDER, NORMAL BOWEL SOUNDS, NO REBOUND, NO MASSES, NO GUARDING Genitourinary - Female: other (patient refused examination) Back: NORMAL INSPECTION, NO MIDLINE TENDERNESS, NO CVA TENDERNESS, NO PARAVERTEBRAL TTP Upper Extremities: NO EDEMA, NO DEFORMITY, NORMAL ROM Lower Extremities: edema Edema: Bilateral LE (2+) Pulses: carotid (R) (2+), carotid (L) (2+) Neuro: confused Reflexes: biceps (R) (1+), bicpes (L) (1+) Babinski Testing: right (downgoing), left (downgoing) Psychiatric: flat affect Diagnostics Labs Results Past 24 Hours Test 11/19/16 16:27 11/19/16 20:37 11/20/16 07:58 11/20/16 08:09 Range/Units Bedside Glucose 208 174 93 70-90 mg/dl Sodium Level 136 136-145 mmol/L Potassium Level 4.5 3.5-5.1 mmol/L Chloride Level 93 98-107 mmol/L Carbon Dioxide Level 41 21-32 mmol/L Anion Gap 2.0 3-11 mmol/L Blood Urea Nitrogen 9 7-18 mg/dl Creatinine 0.81 0.60-1.20 mg/dl Est Creatinine Clear Calc Drug Dose 78.4 ml/min Estimated GFR () 90.9 Estimated GFR (Non- 78.4 BUN/Creatinine Ratio 11.2 10-20 Random Glucose 96 70-99 mg/dl Calcium Level 8.7 8.5-10.1 mg/dl Ammonia 24.0 11-32 umol/L Test 11/20/16 11:17 Range/Units Bedside Glucose 164 70-90 mg/dl Diagnostic Radiology CXR (11/18/16 compared to 06/27/16) Bibasilar opacification with L>R and signs of volume overload CT Head: No acute processes EKG Normal sinus rhythm with a rate of 93 possible left atrial enlargement poor wave progression Impression Assessment and Plan 61-year-old female admitted with altered mental status and acute on chronic respiratory insufficiency: #1 Respiratory Insufficiency: Patient's respiratory insufficiency most likely secondary to obesity hypoventilation with poor CPAP/BiPAP compliance. At this time the patient is refusing to wear her BiPAP machine which would be the most efficacious treatment at this time. I have tried to educate her that she still refuses. Patient does show some signs of mild diastolic heart failure on thoracic ultrasound showed water restriction with negative diuresis would be appropriate as well for probable volume control.
[2016-11-20] MEDS: LITHIUM CARBONATE SR 300 MG TAB (LITHOBID) PO SCH (20:57)
[2016-11-20] MEDS: ENOXAPARIN 40 MG/0.4 ML SYR SC SCH (20:58)
[2016-11-21 00:02] VITALS: BP 131/77; PULSE 79; O2SAT 98
[2016-11-21 00:24] VITALS: PULSE 78; O2SAT 95
[2016-11-21] MEDS: BENZONATATE 100MG CAP PO SCH (05:34)
[2016-11-21] MEDS: INSULIN ASPART 100 UNITS/ML 3 ML PEN SQ SCH ×2 (06:30→12:20)
[2016-11-21 07:14] VITALS: BP 112/71; PULSE 86; TEMP 36.8; O2SAT 96
[2016-11-21] MEDS: LISINOPRIL 5 MG TAB PO SCH (08:01)
[2016-11-21] MEDS: GUAIFENESIN 600 MG TABCR PO SCH (08:01)
[2016-11-21] MEDS: METOLAZONE 5 MG TAB PO SCH (08:02)
[2016-11-21] MEDS: MAGNESIUM OXIDE 400 MG TAB PO SCH (08:02)
[2016-11-21] MEDS: CHOLECALCIFEROL 1000 INTER.UNIT TAB PO SCH (08:02)
[2016-11-21] MEDS: FUROSEMIDE 80 MG TAB PO SCH (08:02)
[2016-11-21] MEDS: IPRATROPIUM BROMIDE/ALBUTEROL respimat INH INH SCH ×2 (08:03→12:16)
[2016-11-21] MEDS: NYSTATIN CR 15 GM TUBE EXT SCH (08:03)
[2016-11-21] MEDS: INSULIN GLARGINE SOLOSTAR 100 UNITS/ML 3 ML PEN SC SCH (08:10)
--- NOTE | 2016-11-21 09:46 | Discharge Instructions ---
Discharge Instructions Date of Service Nov 21, 2016. Admission Reason for Admission: Acute Respiratory Failure With Hypoxia Discharge Discharge Diagnosis / Problem: hypercapneic resp failure Discharge Goals Goal(s): Decrease discomfort, Improve function, Increase independence Activity Recommendations Activity Limitations: resume your previous activity . Instructions / Follow-Up Instructions / Follow-Up with PCP within a week Current Hospital Diet Patient's current hospital diet: AHA Diet (Heart Healthy), Diabetes Type 2 Diet Discharge Diet Recommended Diet: AHA Diet (Heart Healthy), Diabetes Type 2 Diet Fluid Restriction: 1500 ml (6 cups) Procedures Procedures Performed: none Pending Studies Studies pending at discharge: no Laboratory Results Last Resulted CBC 11/18/16 14:53 Red Blood Count 4.51, Mean Corpuscular Volume 92.5, Mean Corpuscular Hemoglobin 27.1, Mean Corpuscular Hemoglobin Concent 29.3, Mean Platelet Volume 9.4, Neutrophils (%) (Auto) 74.8, Lymphocytes (%) (Auto) 13.1, Monocytes (%) (Auto) 11.5, Eosinophils (%) (Auto) 0.2, Basophils (%) (Auto) 0.2, Neutrophils # (Auto ) 3.82, Lymphocytes # (Auto) 0.67, Monocytes # (Auto) 0.59, Eosinophils # (Auto ) 0.01, Basophils # (Auto) 0.01 Last Resulted BMP 11/20/16 08:09 Medical Emergencies . Who to Call and When: Medical Emergencies: If at any time you feel your situation is an emergency, please call 911 immediately. . Non-Emergent Contact Non-Emergency issues call your: Primary Care Provider Call Non-Emergent contact if: temperature is above 101, your pain is not controlled, you have any medication questions . . "Provider Documentation" section prepared by Adis Dickson . Overseamer Recommendations Overseamer Recommendations: use BIPAP/CPAP. VTE Core Measure Inpt VTE Proph given/why not?: Enoxaparin (Lovenox)SQ, SCD's
--- NOTE | 2016-11-21 10:03 | Discharge Summary ---
Discharge Summary Date of Service Nov 21, 2016. Discharge Summary Admission Date: Nov 18, 2016 at 19:12 Discharge Date: Nov 21, 2016 Discharge Disposition: Home Principal Diagnosis: Acute hpercapnic Resp Failure second to non complaince with BIPAP/CPAP Immunizations: Have You Had Influenza Vaccine: Unknown Influenza Vaccine Date: Sep 27, 2009 History of Tetanus Vaccine?: Unknown History of Pneumococcal: No Pneumococcal Date: Jun 28, 2007 History of Hepatitis B Vaccine: Unknown Procedures: none Consultations: Pulmonology Medication Reconciliation Continued Medications: Acetaminophen (Tylenol) 325 Mg Tab 650 MG PO Q4 PRN for Pain or Fever DO NOT EXCEED 3GM/24HRS Benzonatate (Tessalon Perles) 200 Mg Cap 200 MG PO Q8, CAP Cholecalciferol (Vitamin D3) 1,000 Unit Cap 1000 INTER.UNIT PO QAM Dextrose (Diabetic Use) (Glutose 15) 40 % Gel 15-30 GM PO UD PRN for HYPOGLYCEMIA PROTOCOL for 30 Days, #30 Enoxaparin (Enoxaparin Sodium) 40 Mg/0.4 Ml Inj 40 MG SC Q24H for 7 Days Furosemide (Furosemide) 80 Mg Tab 80 MG PO BID, #180 Glucose-Vitamin C (Dex4) 1 Chw Chw 4-8 TABS PO UD PRN for HYPOGLYCEMIA PROTOCOL for 30 Days, #30 Guaifenesin Ext Rel (Mucinex Ext Rel) 600 Mg Tabcr 600 MG PO Q12 for 7 Days Haloperidol Decanoate (Haloperidol Decanoate) 100 Mg/Ml Inj 1 DOSE SQ DIRECTED, #4 Insulin Aspart (Novolog) Inj 10 UNITS SQ UD ONLY IF BLOOD SUGAR IS >180 Insulin Glargine (Lantus Solostar) 100 Unit/Ml Inj 10 UNIT SC Q12 for 30 Days Ipratropium-Albuterol (Combivent Respimat) 1 Aer Aer 1 PUFFS INH QID, INH Lactulose (Chronulac) 10 Gm/15 Ml Syrp 1 DOSE PO DIRECTED Levetiractam (Levetiracetam) 500 Mg Tab 500 MG PO BID Lisinopril (Lisinopril) 5 Mg Tab 5 MG PO QAM [place] Carbonate (Lithobid Ext Rel) 300 Mg Tab 600 MG PO HS [place] Carbonate ([place] Carbonate) 300 Mg Cap 300 MG PO BID, #180 Magnesium Oxide (Mag-Ox) 400 Mg Tab 400 MG PO QAM Metolazone (Metolazone) 5 Mg Tab 5 MG PO DAILY, #90 Nystatin (Nystatin) 45 Appln/15 Gm Cr 1 APPLN EXT BID for 30 Days, #60 GM Polyethylene (Miralax) 17 Gm Pow 17 GM PO DAILY PRN for Constipation for 30 Days, #30 Potassium Chloride (Klor-Con M20) 20 Meq Tabcr 60 MEQ PO UD 3 tablets in the morning, 2 tablets at night Referrals At Discharge Follow up Referrals: Family Practice Referral - Within 1 Week with Bin Patel M.D. [employer] Referral - Within a Month with Hunter Wiggins MD Discharge Exam Pt is seen and examined by me. Pt is awake, alert orientated x3. Pt resp status improved, denies, SOB, CP,palpitation, dizziness and LOC. Pt denies productive cough and she has a good appetite and sleep. Review of Systems: Constitutional: No fever, No chills Cardiovascular: No chest pain, No edema, No palpitations Abdomen: No pain, No nausea, No vomiting, No diarrhea Genitourinary - Female: No dysuria, No urinary frequency, No urinary urgency , No urinary incontinence Psychiatric: No depression symptoms, No anxiety Endocrine: No fatigue Integumentary: No rash Physical Exam: General Appearance: no apparent distress Eyes: EOMI Neck: supple, no adenopathy, no JVD Respiratory/Chest: chest non-tender, lungs clear, normal breath sounds, no respiratory distress, no accessory muscle use Cardiovascular: regular rate, rhythm, no edema, no murmur Abdomen / GI: normal bowel sounds, non tender, soft, no organomegaly 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: no motor/sensory deficits, alert, normal mood/affect , oriented x 3 Skin: no rash Hospital Course Acute respiratory failure with hypoxia and hypercapnia: secondary to medical noncompliance without use of CPAP/BIPAP at at bedtime as directed and questionable use of oral medications. Stable on O2. Repeat ABG in 3 hours. Placed on Zosyn IV, vancomycin IV, levofloxacin IV on admission, no s/sx of infections and will d/c TSH WNL Cardiology was consulted by pt's as they are neighbors, c/s placed Pulmonary consulted- appreciate input.Recommended BIPAP use, which patient refused. Pt was advised to follow up with PCP as out patient and possible sleep study to rule out KORI. Pt put out about close 10L, her breathing improved and as well 94 % saturation on RA.. Weakness: likely multifactorial given above with hyperK, elevated ammonia levels Monitor Hyperkalemia: d/c IVF with K Pt was taking home K supplement but not lactulose Neg for tele changes, K levels 4.5. Elevated ammonia levels: resume lactulose, last ammonia level is 24 Diabetes mellitus--hold on usual 10 units of Lantus insulin subcutaneous every [address] Accu-Cheks before meals and at bedtime with NovoLog coverage. Bipolar disorder--resume home meds [place] level was with therapeutic range DVT prophylaxis --continue Lovenox 40 mg subcutaneous every 24 hours. It appears that when leaves town, pt decompensates due to medical noncompliance. Pt should have caregivers or other home support when he is out of town. Total Time Spent: Greater than 30 minutes This includes examination of the patient, discharge planning, medication reconciliation, and communication with other providers. Discharge Instructions Please refer to the electronic Patient Visit Report (Discharge Instructions) for additional information. Follow-Up as per discharge instruction. Additional Copies To Bin Patel M.D.; Hunter Wiggins MD
[2016-11-21 10:38] VITALS: BP 112/71; PULSE 86; TEMP 36.8; O2SAT 96
[2016-12-08] MEDS ORDERED: LCTL45 PO (10:15)
[2016-12-08] MEDS ORDERED: MCRK20 PO (10:15)
[2016-12-08] MEDS ORDERED: INSDGIPEN SC (10:15)
[2016-12-08] MEDS ORDERED: MRLP17X PO (10:15)
[2016-12-08] MEDS ORDERED: LTHCR300 PO (10:15)
[2016-12-08] MEDS ORDERED: FRS/40 PO (10:15)
[2016-12-08] MEDS ORDERED: HALO100I IM (10:15)
[2016-12-08] MEDS ORDERED: METO5TAB25 PO (10:15)
== END 2016-11-21 12:51 | disposition home or self-care (01) | DRG 205 ==
LOC: EDBD 14:23 → C.EDB 14:27 → C.2T 19:12 → ENRESERV 19:34 → C.4E 11-19 10:31 → ENRESERV 11-19 10:56
PROVIDERS: ADMIT Hospitalist; ATTEND Family Medicine
DX: E66.2 Morbid (severe) obesity with alveolar hypoventilation (principal); J96.02 Acute respiratory failure with hypercapnia; J96.01 Acute respiratory failure with hypoxia; E72.20 Disorder of urea cycle metabolism, unspecified; I50.30 Unspecified diastolic (congestive) heart failure; Z68.41 Body mass index [BMI] 40.0-44.9, adult; E11.9 Type 2 diabetes mellitus without complications; E87.5 Hyperkalemia; I10 Essential (primary) hypertension; F25.0 Schizoaffective disorder, bipolar type; Z91.19 Patient's noncompliance with other medical treatment and regimen; Z79.4 Long term (current) use of insulin; Z79.899 Other long term (current) drug therapy; Z83.3 Family history of diabetes mellitus

== ENCOUNTER 2016-11-24 12:57 | Observation (INO) | payer BC ==
[~2016-11-24] VITALS: Ht 160 cm; Wt 97.7 kg
[~2016-11-24 12:57] MED LIST changes: +HALO100I2 SQ; +LCTS240 PO; +LTH300C PO; +ZRX5 PO
[2016-11-24] MEDS ORDERED: NVLG SQ (14:08)
[2016-11-24] MEDS ORDERED: ACETAMINOPHEN 325 MG TAB PO STA (14:10)
--- NOTE | 2016-11-24 14:20 | EMERGENCY ROOM VISIT NOTE ---
History Report prepared by Jada: Wendy Burgess Under the Supervision of: Isiah LevyO. First contact with patient: 13:49 Chief Complaint: ALTERED MENTAL STATUS Stated Complaint: AMS Nursing Triage Summary: Patient arrived via ALS. Patient went into bathroom and states was "not able to make it back out". Patients came in and found her in the bathroom. ALS crew found patient and in bathroom with patient on floor. Patient was rigid and "stiff as a board". Per ALS crew, lift belt had to be used to help patient get back to bed. Patient was d/c'd from [facility] on 11/21 after being admitted with respiratory failure. Right arm fistula noted with +bruit and +thrill. History of Present Illness The patient is a 61 year old female who presents to the Emergency Room via ALS after a sudden change in mental status that occurred prior to arrival. She currently rates her discomfort as a 10/10 in severity. The patient reports that today while in the bathroom her legs gave out, noting sudden weakness. She denies any dizziness or loss of consciousness. The patient's states that the patient was discharged from the hospital on Tuesday and has noticed movement problems since then. He reports that when EMS arrived today the patient's legs were shaking and then were stiff and rigid and they had difficult lifting her from the ground. With the patient and the state that she was awake and alert the entire time her legs were both shaking and then stiff. No other shaking or stiffness noted any other area of the body. The patient's states that the patient has a history of a seizure and does take medication. 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 The patient's denies the patient having any recent change in medication. He denies the patient having any facial droop or speech slur today. The patient reports that she was previously on dialysis. The patient's states that the patient did ambulate with a walker while in the hospital, but he notes that the patient does not use a walker while at home. The patient denies any back pain or urinary symptoms. After reviewing the patients EMR, the patient was evaluated in the hospital last week for hyperammonemia. Source of History: patient, spouse/significant other () Onset: just prior to arrival Position: other (global) Symptom Intensity: 10/10 Quality: other (change in mental satus) Timing: other (sudden) Associated Symptoms: + weakness (leg), No back pain, No urinary symptoms Note: Associated Symptoms: rigid and stiff Review of Systems See HPI for pertinent positives & negatives. A total of 10 systems reviewed and were otherwise negative. Past Medical & Surgical Medical Problems: (1) ACUTE RENAL FAILURE NOS (2) Acute respiratory failure with hypoxia and hypercapnia (3) BIPOL I DIS, SING MANIC EPIS, SEVERE, SPEC W PSYCHOTIC BEHAV (4) CONGESTIVE HEART FAILURE NOS (5) DIAB ROSA WO COMPL, TYPE II OR UNSPEC TYPE, NOT UNCNTRLD (6) Lethargy (7) Seizure-like activity (8) Seizure-like activity (9) Weakness Family History FH: HTN (hypertension) FH: diabetes mellitus Heart disease Social History Smoking Status: Never Smoker Alcohol Use: none Drug Use: none Marital Status: Housing Status: lives with family Occupation Status: retired Current/Historical Medications Scheduled Benzonatate (Tessalon Perles), 200 MG PO Q8 Cholecalciferol (Vitamin D3), 1,000 INTER.UNIT PO QAM Enoxaparin (Enoxaparin Sodium), 40 MG SC Q24H Furosemide (Furosemide), 80 MG PO BID Guaifenesin Ext Rel (Mucinex Ext Rel), 600 MG PO Q12 Haloperidol Decanoate (Haloperidol Decanoate), 1 DOSE SQ DIRECTED Insulin Aspart (Novolog), 10 UNITS SQ UD Insulin Glargine (Lantus Solostar), 10 UNIT SC Q12 Ipratropium-Albuterol (Combivent Respimat), 1 PUFFS INH QID Lactulose (Chronulac), 1 DOSE PO DIRECTED Levetiractam (Levetiracetam), 500 MG PO BID Lisinopril (Lisinopril), 5 MG PO QAM [place] Carbonate (Lithobid Ext Rel), 600 MG PO HS [place]front Carbonate ([place]front Carbonate), 300 MG PO BID Magnesium Oxide (Mag-Ox), 400 MG PO QAM Metolazone (Metolazone), 5 MG PO DAILY Nystatin (Nystatin), 1 APPLN EXT BID Potassium Chloride (Klor-Con M20), 60 MEQ PO UD Scheduled PRN Acetaminophen (Tylenol), 650 MG PO Q4 PRN for Pain or Fever Glucose-Vitamin C (Dex4), 4-8 TABS PO UD PRN for HYPOGLYCEMIA PROTOCOL Polyethylene (Miralax), 17 GM PO DAILY PRN for Constipation Allergies Coded Allergies: No Known Allergies (Verified , `, 11/24/16) Physical Exam Vital Signs Date Time Temp Pulse Resp B/P (MAP) Pulse Ox O2 Delivery O2 Flow Rate FiO2 11/24/16 22:00 83 18 98/63 100 Nasal Cannula 2.0 11/24/16 21:11 86 11/24/16 21:00 86 14 118/78 96 Nasal Cannula 2.0 11/24/16 19:03 94 18 110/68 98 Nasal Cannula 2.0 11/24/16 18:14 88 24 131/61 96 Nasal Cannula 2.0 11/24/16 17:16 92 11/24/16 16:30 94 20 118/65 92 Nasal Cannula 2.0 11/24/16 14:40 97 18 101/70 97 Nasal Cannula 2.0 11/24/16 13:14 37.0 115 20 130/83 96 Nasal Cannula 2.0 11/24/16 13:14 96 Nasal Cannula 2.0 11/24/16 13:11 113 Physical Exam GENERAL: alert, well appearing, well nourished, no distress, non-toxic EYE EXAM: normal conjunctiva, mild proptosis, PERRL and EOM's grossly intact OROPHARYNX: no exudate, no erythema, lips, buccal mucosa, and tongue normal and mucous membranes are moist NECK: supple, no nuchal rigidity, no adenopathy, non-tender, no obvious goiter LUNGS: Slightly diminished, no wheezes, rhonchi, or rales. Normal chest wall mechanics HEART: no murmurs, S1 normal and S2 normal ABDOMEN: abdomen soft, non-tender, normo-active bowel sounds, no masses, no rebound or guarding. BACK: Back is symmetrical on inspection and there is no deformity, no midline tenderness, no CVA tenderness. SKIN: no rashes and no bruising UPPER EXTREMITIES: upper extremities are grossly normal. Normal pulses. LOWER EXTREMITIES: No pitting edema. Normal pulses NEURO EXAM: Normal sensorium, cranial nerves II-XII grossly intact, normal speech, no gross weakness of arms, no gross weakness of legs. Medical Decision & Procedures ER Provider Diagnostic Interpretation: Radiology results have been interpreted by the radiologist and reviewed by me. CT HEAD WITHOUT CONTRAST (CT) CLINICAL HISTORY: Seizure COMPARISON STUDY: 11/18/2016 TECHNIQUE: Axial CT of the brain is performed from the vertex to the skull base. IV contrast was not administered for this examination. CT DOSE: 537.48 mGy.cm FINDINGS: No intra or extra-axial mass lesions are visualized. There is no CT evidence of acute cortical infarction. There is no evidence of midline shift. There is no acute hemorrhage. No calvarial fractures are visualized. There are minimal white matter hypodensities likely on a small vessel basis. There is no evidence of pathologic ventricular dilatation. There is no evidence of acute sinusitis IMPRESSION: No acute intracranial findings Electronically signed by: Neri Spicer M.D. 11/24/2016 3:06 PM Dictated Date/Time: 11/24/2016 3:05 PM CHEST ONE VIEW PORTABLE HISTORY: Short of breath. COMPARISON: Chest 11/18/2016. FINDINGS: The cardiac silhouette remains moderately enlarged. No pleural effusions. No pneumothorax. No new focal lung consolidations. Mild central pulmonary vascular congestion without overt edema. IMPRESSION: 1. No significant change. 2. Moderate enlargement of the cardiac silhouette. 3. Mild central pulmonary vascular congestion without overt edema. Electronically signed by: Alfonso Perez M.D. 11/24/2016 2:30 PM Dictated Date/Time: 11/24/2016 2:27 PM Laboratory Results Test 11/24/16 14:30 11/24/16 14:36 11/24/16 22:10 Lactic Acid Level 1.2 mmol/L (0.4-2.0) Magnesium Level 2.4 mg/dl (1.8-2.4) Pro-B-Type Natriuretic Peptide 743 pg/ml (0-900) Thyroid Stimulating Hormone (TSH) 0.866 uIu/ml (0.300-4.500) Bayfront Level 0.7 mMOL/L (0.6-1.2) Urine Color YELLOW Urine Appearance CLOUDY (CLEAR) Urine pH 8.0 (4.5-7.5) Urine Specific [place] 1.015 (1.000-1.030) Urine Protein 1+ (NEG) Urine Glucose (UA) NEG (NEG) Urine Ketones NEG (NEG) Urine Occult Blood NEG (NEG) Urine Nitrite NEG (NEG) Urine Bilirubin NEG (NEG) Urine Urobilinogen NEG (NEG) Urine Leukocyte Esterase NEG (NEG) Urine WBC (Auto) 1-5 /hpf (0-5) Urine RBC (Auto) 5-10 /hpf (0-4) Urine Hyaline Casts (Auto) 1-5 /lpf (0-5) Urine Epithelial Cells (Auto) >30 /lpf (0-5) Urine Bacteria (Auto) NEG (NEG) Urine Yeast (Auto) (NONE PRSENT) Laboratory results per my review. Medications Administered Medications (Trade) Dose Ordered Sig/Nanette Route Start Time Stop Time Status Last Admin Dose Admin Acetaminophen (Tylenol Tab) 650 mg NOW STAT PO 11/24/16 14:10 11/24/16 14:14 DC 11/24/16 14:27 650 MG Acetaminophen (Tylenol Tab) 650 mg Q4H PRN PO 11/24/16 22:30 12/24/16 22:29 11/25/16 12:52 650 MG ECG Indication: altered mental status Rate (beats per minute): 98 Rhythm: sinus rhythm Findings: no acute ischemic change, prolonged QT, no ectopy, other (normal axis ) Comparison ECG Date: 11/20/16 Change: EKG Change: When compared to EKG done on 11/20/16, today there is a slightly longer prolonged QT. ED Course 1351: The patient was evaluated in room C12B. A complete history and physical exam was performed. 1410: Ordered Tylenol Tab 650 mg PO. 1714: I reevaluated the patient and she has no recurrence of unusual activity. I discussed all the exam findings with her and her . She will have an ambulatory trial. 1839: I reevaluated the patient and she is appearing groggier. I discussed the exam findings with her and I discussed the treatment plan. She verbalized complete understanding and agreement. She is going to be evaluated for further treatment. Medical Decision Differential diagnosis includes etiologies such as infection, hypoglycemia, electrolyte abnormalities, cardiac sources, intracerebral event, trauma, toxicologic, neurologic, as well as others were entertained. Medication Reconciliation: I attest that I have personally reviewed the patient' s current medication list. Blood pressure screening: Patient was found to have an elevated blood pressure and was referred to their primary doctor for recheck and further treatment. Unclear etiology of events today. Given patient's history of partial seizures based on husbands descriptions, possible that shaking and stiffness noted today in the lower extremities could be seizures. Patient also found to have markedly elevated ammonia level again. Patient not encephalopathic, however was slightly somnolent, and unclear if weakness related to this also. Patient with no LOC, no trauma, and I do not believe this was syncope. Doubt cardiac origin of events today. No other evidence of acute infectious etiology. Doubt vascular etiology. Doubt bacteremia/sepsis. No history of back or spine problems, doubt related to acute cauda equina, discitis, epidural abscess or hematoma. Patient with an elevated serum CO2, , however likely chronic given patient's prior history of hypercapnia and use of nighttime BiPAP. Patient also wears home O2 chronically and is at her usual amount with no evidence of increased work of breathing and no hypoxia. Patient denies any other symptoms or pain, and symptoms had resolved by the time of my evaluation the emergency room. No recurrence during observation the ER, however given unclear etiology, questionable history of seizures and patient is already on an anticonvulsant, as well as markedly elevated ammonia, patient admitted for additional evaluation and monitoring. states patient has been compliant with all medications. Patient with mild hypertension noted, can't or megaly noted on chest x-ray and questionable mild pulmonary edema. Patient's exam not consistent with acute CHF, and recent echo showed last LVEF of 50-55%. Patient and family were made aware of all results were agreeable with this plan. Consults Time Called: 1801 Impression Primary Impression: Lower extremity weakness Additional Impressions: Hyperammonemia Seizure Hyperglycemia Scribe Attestation The scribe's documentation has been prepared under my direction and personally reviewed by me in its entirety. I confirm that the note above accurately reflects all work, treatment, procedures, and medical decision making performed by me. Departure Information Dispostion Being Evaluated By Hospitalist Referrals Bin Patel M.D. (PCP) Problem Qualifiers Primary Impression: Lower extremity weakness Laterality: bilateral Qualified Codes: R29.898 - Other symptoms and signs involving the musculoskeletal system
--- NOTE | 2016-11-24 14:32 | DIAGNOSTIC IMAGING REPORT ---
CHEST ONE VIEW PORTABLE HISTORY: Short of breath. COMPARISON: Chest 11/18/2016. FINDINGS: The cardiac silhouette remains moderately enlarged. No pleural effusions. No pneumothorax. No new focal lung consolidations. Mild central pulmonary vascular congestion without overt edema. IMPRESSION: 1. No significant change. 2. Moderate enlargement of the cardiac silhouette. 3. Mild central pulmonary vascular congestion without overt edema. Electronically signed by: Alfonso Perez M.D. 11/24/2016 2:30 PM Dictated Date/Time: 11/24/2016 2:27 PM
[2016-11-24 14:47] LABS: BASO % 0.2 %; BASO ABS # 0.01 K/uL (0-0.2); COMPLETE YES; EOS % 0.3 %; HEMATOCRIT 41.7 % (37-47); IG% 0.2 %; LYMPH % 7.1 %; LYMPH ABS # 0.45 K/uL (1.2-3.4); MEAN CELL VOLUME 90.1 fL (80-100); MEAN PLATELET VOLUME 9.4 fL (7.4-10.4); MONO % 4.4 %; NEUT % 87.8 %; PLATELET COUNT 218 K/uL (130-400); RED BLOOD COUNT 4.63 M/uL (4.2-5.4); WHITE BLOOD COUNT 6.34 K/uL (4.8-10.8)
--- NOTE | 2016-11-24 15:07 | DIAGNOSTIC IMAGING REPORT ---
CT HEAD WITHOUT CONTRAST (CT) CLINICAL HISTORY: Seizure COMPARISON STUDY: 11/18/2016 TECHNIQUE: Axial CT of the brain is performed from the vertex to the skull base. IV contrast was not administered for this examination. CT DOSE: 537.48 mGy.cm FINDINGS: No intra or extra-axial mass lesions are visualized. There is no CT evidence of acute cortical infarction. There is no evidence of midline shift. There is no acute hemorrhage. No calvarial fractures are visualized. There are minimal white matter hypodensities likely on a small vessel basis. There is no evidence of pathologic ventricular dilatation. There is no evidence of acute sinusitis IMPRESSION: No acute intracranial findings Electronically signed by: Neri Spicer M.D. 11/24/2016 3:06 PM Dictated Date/Time: 11/24/2016 3:05 PM
[2016-11-24 15:10] LABS: BUN/CREATININE RATIO 12.1 (10-20); CALCIUM 9.8 mg/dl (8.5-10.1); CREATININE 0.98 mg/dl (0.60-1.20); POTASSIUM 3.4 mmol/L (3.5-5.1)
[2016-11-24 15:20] LABS: THYROID STIMULATING HORMONE 0.866 uIu/ml (0.300-4.500)
[2016-11-24 22:22] LABS: URINE APPEARANCE CLOUDY (CLEAR); URINE BILIRUBIN NEG (NEG); URINE COLOR YELLOW; URINE EPITHELIAL CELL AUTO >30 /lpf (0-5); URINE NITRITE NEG (NEG); URINE SPECIFIC GRAVITY 1.015 (1.000-1.030); UROBILINOGEN NEG (NEG); ZZUR CULT IF INDIC CLEAN CATCH YES
[2016-11-24 22:26] LABS: MANUAL MICROSCOPIC REQUIRED? NO; REVIEW REQ? YES
[2016-11-24 22:27] LABS: SULFASALICYLIC ACID POS (NEG)
[2016-11-24] MEDS ORDERED: POLYETHYLENE (MIRALAX) 17 GM PACK PO PRN (22:30)
[2016-11-24] MEDS ORDERED: ONDANSETRON INJ 2 MG/ML 2 ML VIAL IV PRN (22:30)
--- NOTE | 2016-11-24 22:34 | History and Physical ---
History & Physical Date & Time of Service: Nov 24, 2016 at 22:34 Chief Complaint: AMS Primary Care Physician: Bin Patel M.D. History of Present Illness 61-year-old female with past medical history of bipolar disorder, CHF, diabetes , seizure disorder presented to the ER with change in her mental status. The patient was recently admitted for acute respiratory failure and discharged 3 days ago. The patient is very drowsy and most of the history is from the . Per , the patient had been very weak and fatigued since discharge this morning she she had come out of the bathroom and was kneeling down by the chair and complained that she couldn't get up. He noticed that she was shaking her right and left upper extremities and was very stiff in both her lower extremities. He denied any tongue biting, bowel or bladder incontinence. Denied any fevers or chills, slurring of speech or blurring of vision. She is currently on Keppra for a presumed seizure and has been compliant with her medication. The patient briefly answers questions and drifts back to sleep but denies any numbness or tingling. She complains of some weakness in her left upper extremity and in both the lower extremities. Past Medical/Surgical History Medical Problems: (1) ACUTE RENAL FAILURE NOS Status: Resolved (2) BIPOL I DIS, SING MANIC EPIS, SEVERE, SPEC W PSYCHOTIC BEHAV Status: Chronic (3) CONGESTIVE HEART FAILURE NOS Status: Chronic (4) DIAB ROSA WO COMPL, TYPE II OR UNSPEC TYPE, NOT UNCNTRLD Status: Chronic Family History FH: HTN (hypertension) FH: diabetes mellitus Heart disease Social History Smoking Status: Never Smoker Drug Use: none Marital Status: Housing status: lives with significant other Occupational Status: retired Immunizations History of Influenza Vaccine: Unknown Influenza Vaccine Date: Sep 27, 2009 History of Tetanus Vaccine?: Unknown History of Pneumococcal: No Pneumococcal Date: Jun 28, 2007 History of Hepatitis B Vaccine: Unknown Multi-Drug Resistant 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, MRSA Allergies Coded Allergies: Penicillins (Unverified Allergy, Unknown, unknown, 12/04/16) Home Medications Scheduled Benzonatate (Tessalon Perles), 200 MG PO Q8 Cholecalciferol (Vitamin D3), 1,000 INTER.UNIT PO QAM Furosemide (Furosemide), 80 MG PO BID Insulin Aspart (Novolog), 0 SQ UD Insulin Glargine (Lantus Solostar), 10 UNIT SC Q12 Ipratropium-Albuterol (Combivent Respimat), 1 PUFFS INH QID Levetiractam (Levetiracetam), 500 MG PO BID Lisinopril (Lisinopril), 5 MG PO QAM [employer] Carbonate (Lithobid Ext Rel), 600 MG PO HS [employer] Carbonate ([employer] Carbonate), 300 MG PO BID Magnesium Oxide (Mag-Ox), 400 MG PO QAM Metolazone (Metolazone), 5 MG PO DAILY Nystatin (Nystop), 1 APPLN TOP BID Potassium Chloride Microencaps (Potassium Chloride Er), 2 TABS PO PM Potassium Chloride Microencaps (Potassium Chloride Er), 3 TAB PO QAM Review of Systems Constitutional: No fever, No chills Eyes: No worsening of vision ENT: No hearing loss Respiratory: No cough, No sputum Cardiovascular: No chest pain Abdomen: No pain, No nausea, No vomiting Musculoskeletal: No joint pain Genitourinary - Female: No dysuria Neurologic: + weakness (left upper extremity) Psychiatric: No depression symptoms Endocrine: No fatigue Hematologic / Lymphatic: No abnormal bleeding/bruising Integumentary: No rash Physical Exam Vital Signs Date Time Temp Pulse Resp B/P (MAP) Pulse Ox O2 Delivery O2 Flow Rate FiO2 11/24/16 22:00 83 18 98/63 100 Nasal Cannula 2.0 11/24/16 21:11 86 11/24/16 21:00 86 14 118/78 96 Nasal Cannula 2.0 11/24/16 19:03 94 18 110/68 98 Nasal Cannula 2.0 11/24/16 18:14 88 24 131/61 96 Nasal Cannula 2.0 11/24/16 17:16 92 11/24/16 16:30 94 20 118/65 92 Nasal Cannula 2.0 11/24/16 14:40 97 18 101/70 97 Nasal Cannula 2.0 11/24/16 13:14 37.0 115 20 130/83 96 Nasal Cannula 2.0 11/24/16 13:14 96 Nasal Cannula 2.0 11/24/16 13:11 113 General Appearance: WD/WN, + pertinent finding (somnolent) Eyes: normal inspection ENT: hearing grossly normal Neck: supple Respiratory/Chest: chest non-tender, lungs clear, no respiratory distress, + decreased breath sounds Cardiovascular: regular rate, rhythm Abdomen/GI: normal bowel sounds, non tender, soft Extremities/Musculoskelatal: no calf tenderness, no pedal edema Neurologic/Psych: head filter tank tender helper II-XII nml as tested, no motor/sensory deficits (left upper extremity weakness and stiffness of her lower extremities), + pertinent finding (drowsy) Diagnostics Laboratory Results Results Past 24 Hours Test 11/24/16 14:30 11/24/16 14:36 11/24/16 17:16 11/24/16 22:10 Range/Units Lactic Acid Level 1.2 0.4-2.0 mmol/L White Blood Count 6.34 4.8-10.8 K/uL Red Blood Count 4.63 4.2-5.4 M/uL Hemoglobin 12.5 12.0-16.0 g/dL Hematocrit 41.7 37-47 % Mean Corpuscular Volume 90.1 80-100 fL Mean Corpuscular Hemoglobin 27.0 25-34 pg Mean Corpuscular Hemoglobin Concent 30.0 32-36 g/dl Platelet Count 218 130-400 K/uL Mean Platelet Volume 9.4 7.4-10.4 fL Neutrophils (%) (Auto) 87.8 % Lymphocytes (%) (Auto) 7.1 % Monocytes (%) (Auto) 4.4 % Eosinophils (%) (Auto) 0.3 % Basophils (%) (Auto) 0.2 % Neutrophils # (Auto) 5.57 1.4-6.5 K/uL Lymphocytes # (Auto) 0.45 1.2-3.4 K/uL Monocytes # (Auto) 0.28 0.11-0.59 K/uL Eosinophils # (Auto) 0.02 0-0.5 K/uL Basophils # (Auto) 0.01 0-0.2 K/uL RDW Standard Deviation 48.4 36.4-46.3 fL RDW Coefficient of Variation 14.7 11.5-14.5 % Immature Granulocyte % (Auto) 0.2 % Immature Granulocyte # (Auto) 0.01 0.00-0.02 K/uL Sodium Level 129 136-145 mmol/L Potassium Level 3.4 3.5-5.1 mmol/L Chloride Level 84 98-107 mmol/L Carbon Dioxide Level 40 21-32 mmol/L Anion Gap 5.0 3-11 mmol/L Blood Urea Nitrogen 12 7-18 mg/dl Creatinine 0.98 0.60-1.20 mg/dl Est Creatinine Clear Calc Drug Dose 68.5 ml/min Estimated GFR () 72.2 Estimated GFR (Non- 62.3 BUN/Creatinine Ratio 12.1 10-20 Random Glucose 273 70-99 mg/dl Calcium Level 9.8 8.5-10.1 mg/dl Magnesium Level 2.4 1.8-2.4 mg/dl Total Bilirubin 0.6 0.2-1 mg/dl Aspartate Amino Transf (AST/SGOT) 28 15-37 U/L Alanine Aminotransferase (ALT/SGPT) 22 12-78 U/L Alkaline Phosphatase 62 45-117 U/L Pro-B-Type Natriuretic Peptide 743 0-900 pg/ml Total Protein 7.5 6.4-8.2 gm/dl Albumin 3.7 3.4-5.0 gm/dl Globulin 3.8 2.5-4.0 gm/dl Albumin/Globulin Ratio 1.0 0.9-2 Thyroid Stimulating Hormone (TSH) 0.866 0.300-4.500 uIu/ml [employer] Level 0.7 0.6-1.2 mMOL/L Ammonia 95.0 11-32 umol/L Urine Color YELLOW Urine Appearance CLOUDY CLEAR Urine pH 8.0 4.5-7.5 Urine Specific [place] 1.015 1.000-1.030 Urine Protein 1+ NEG Urine Glucose (UA) NEG NEG Urine Ketones NEG NEG Urine Occult Blood NEG NEG Urine Nitrite NEG NEG Urine Bilirubin NEG NEG Urine Urobilinogen NEG NEG Urine Leukocyte Esterase NEG NEG Microbiology Results 11/24/16 Urine Culture, Received Pending Diagnostic Radiology CT HEAD WITHOUT CONTRAST (CT) CLINICAL HISTORY: Seizure COMPARISON STUDY: 11/18/2016 TECHNIQUE: Axial CT of the brain is performed from the vertex to the skull base. IV contrast was not administered for this examination. CT DOSE: 537.48 mGy.cm FINDINGS: No intra or extra-axial mass lesions are visualized. There is no CT evidence of acute cortical infarction. There is no evidence of midline shift. There is no acute hemorrhage. No calvarial fractures are visualized. There are minimal white matter hypodensities likely on a small vessel basis. There is no evidence of pathologic ventricular dilatation. There is no evidence of acute sinusitis IMPRESSION: No acute intracranial findings Electronically signed by: Neri Spicer M.D. 11/24/2016 3:06 PM Dictated Date/Time: 11/24/2016 3:05 PM CHEST ONE VIEW PORTABLE HISTORY: Short of breath. COMPARISON: Chest 11/18/2016. FINDINGS: The cardiac silhouette remains moderately enlarged. No pleural effusions. No pneumothorax. No new focal lung consolidations. Mild central pulmonary vascular congestion without overt edema. IMPRESSION: 1. No significant change. 2. Moderate enlargement of the cardiac silhouette. 3. Mild central pulmonary vascular congestion without overt edema. Electronically signed by: Alfonso Perez M.D. 11/24/2016 2:30 PM Dictated Date/Time: 11/24/2016 2:27 PM EKG Normal sinus rhythm Possible Left atrial enlargement Nonspecific T wave abnormality Prolonged QT Abnormal ECG When compared with ECG of 20-NOV-2016 07:26, No significant change was found Confirmed by JOEY WILLIAM ([id number]) on 11/24/2016 3:41:35 PM Impression Assessment and Plan 61-year-old female with past medical history of bipolar disorder, CHF, diabetes , seizure disorder presented to the ER with change in her mental status and a witnessed jerking movement of both upper and lower extremities this morning by her . Altered mental status: Postictal confusion versus stroke versus hepatic encephalopathy - Head CT: No acute changes - MRI brain ordered - Neurology consult - Ammonia level at 95, was 24 on 11/20 - EEG in a.m. - [employer] level within range Hyperammonemia: - Ammonia level at 95 - Liver ultrasound from 2014 normal, check liver ultrasound - Lactulose 30 mg 3 times a day - Gastroenterology consult Hyponatremia: Chronic - Sodium at 129 - Continue IV fluids Diabetes: - Insulin sliding scale CHF: - Currently euvolemic - Continue Lasix, metolazone - Daily weights with strict I's and O's - Echo: 12/26: * 1. Mildly dilated left ventricle with low-normal systolic function. EF 50-55 %. No regional wall motion abnormalities. No significant left ventricular hypertrophy. Type 1 diastolic dysfunction. Septal flattening consistent with RV volume overload. 2. Severely dilated right ventricle with visually mildly reduced systolic function. 3. The left atrium is mildly dilated. 4. The right atrium is moderately dilated. 5. Probably moderate to severe tricuspid regurgitation. 6. Mild pulmonary hypertension suggested; estimated RVSP 43 mmHg. 7. Compared to prior study on 01/05/2015, LV systolic function is now low normal and estimated RVSP has improved. Bipolar disorder: - Continue home meds - [employer] level within range Full code DVT prophylaxis: - Heparin subcutaneous Disposition: Admitted to telemetry Level of Care Telemetry Resuscitation Status FULL RESUSCITATION VTE Prophylaxis VTE Risk Assessment Done? Y/N: Yes Risk Level: Moderate Resident Tracking Resident Involvement: Resident Care Provided Care Provided: [facility] Medicine Assessment and Plan Attending Addendum: I have physically seen and examined this patient, have directed their medical care, have supervised the medical residents activities, and agree with the H&P as noted above, with the following changes: NONE
[2016-11-24] MEDS ORDERED: GLUCOSE 40% GEL 15 GM TUBE PO PRN (23:45)
[2016-11-24] MEDS ORDERED: DEXTROSE 50% 50 ML SYR IV PRN (23:45)
[2016-11-24] MEDS ORDERED: GLUCOSE 10 TABS/TUBE PO PRN (23:45)
[2016-11-24] MEDS ORDERED: IV FLUIDS COMPLETED PRN (23:45)
[2016-11-24] MEDS ORDERED: GLUCAGON FOR INJ 1 MG VIAL SQ PRN (23:45)
[2016-11-25] VITALS (14 sets, daily range): BP systolic 93–129; BP diastolic 57–82; PULSE 82–92; TEMP 36.5–36.9; O2SAT 93–98; BMI 39.1
[2016-11-25] MEDS: SODIUM CHLORIDE 0.9% 1000ML 1,000 ML IV SCH ×2 (00:01→12:56)
[2016-11-25] MEDS: LACTULOSE SYRUP 30 GM/45 ML UDP PO SCH ×4 (01:24→20:57)
[2016-11-25] MEDS: ACETAMINOPHEN 325 MG TAB PO PRN ×2 (01:29→12:52)
[2016-11-25] MEDS ORDERED: HEPARIN SOD 5000 UNIT/0.5 ML CARP SQ SCH (06:00)
[2016-11-25 06:31] LABS: BASO % 0.2 %; BASO ABS # 0.01 K/uL (0-0.2); COMPLETE YES; EOS % 1.4 %; HEMATOCRIT 41.1 % (37-47); IG% 0.2 %; LYMPH % 10.1 %; LYMPH ABS # 0.66 K/uL (1.2-3.4); MEAN CELL VOLUME 92.6 fL (80-100); MEAN CORPUSCULAR HEMOGLOBIN 27.3 pg (25-34); MEAN CORPUSCULAR HGB CONC 29.4 g/dl (32-36); MONO % 10.9 %; NEUT % 77.2 %; PLATELET COUNT 185 K/uL (130-400); RED BLOOD COUNT 4.44 M/uL (4.2-5.4); WHITE BLOOD COUNT 6.51 K/uL (4.8-10.8)
[2016-11-25] MEDS: INSULIN ASPART 100 UNITS/ML 3 ML PEN SC SCH ×4 (07:00→21:03)
[2016-11-25 07:07] LABS: BUN/CREATININE RATIO 13.8 (10-20); CALCIUM 9.2 mg/dl (8.5-10.1); CREATININE 0.73 mg/dl (0.60-1.20); POTASSIUM 3.7 mmol/L (3.5-5.1)
[2016-11-25 07:10] LABS: ALB/GLOB RATIO 0.9 (0.9-2)
--- NOTE | 2016-11-25 08:20 | DIAGNOSTIC IMAGING REPORT ---
ABDOMINAL ULTRASOUND COMPLETE HISTORY: hyperammonemia. COMPARISON: Abdominal ultrasound 01/10/2015. FINDINGS: Pancreas: Pancreatic head is unremarkable. The pancreatic body and tail are obscured by overlying bowel gas. Liver: Unremarkable. Gallbladder: There are few gallstones. No significant gallbladder wall thickening. CBD: 6 mm. Kidneys: No hydronephrosis. Lower poles of the kidneys are obscured by overlying bowel gas. Spleen: Normal in size. Aorta: Only the proximal aorta is identified and is normal in caliber. The mid to distal aorta is obscured by overlying bowel gas. IVC: Patent. IMPRESSION: 1. Cholelithiasis. 2. No gallbladder wall thickening. 3. Normal caliber common bile duct. Electronically signed by: Alfonso Perez M.D. 11/25/2016 8:18 AM Dictated Date/Time: 11/25/2016 8:16 AM
--- NOTE | 2016-11-25 08:25 | DIAGNOSTIC IMAGING REPORT ---
ORBIT RADIOGRAPHS 3 VIEWS HISTORY: pre-MRI screening. COMPARISON: None. FINDINGS: There are no radiopaque foreign bodies identified within the orbits. IMPRESSION: No radiopaque foreign bodies identified within the orbits. Electronically signed by: Neri Spicer M.D. 11/25/2016 8:24 AM Dictated Date/Time: 11/25/2016 8:23 AM
[2016-11-25] MEDS ORDERED: LITHIUM CARBONATE 300 MG TAB PO SCH (09:00)
--- NOTE | 2016-11-25 09:24 | DIAGNOSTIC IMAGING REPORT ---
MRI OF THE BRAIN WITHOUT CONTRAST CLINICAL HISTORY: Seizure like activity. Possible stroke. COMPARISON STUDY: November 2014 FINDINGS: Sagittal T1, axial diffusion, proton density and T2 weighted axial, coronal FLAIR, and axial T1-weighted images were acquired. Patient refused to complete the examination, and no postcontrast images were acquired. No intra or extra-axial mass lesions are visualized Axial diffusion-weighted images reveal no evidence of acute or subacute infarction. There is no evidence of ventricular dilatation. Proton density T2-weighted and FLAIR images reveal very minor foci of increased T2 signal within the white matter, likely on a small vessel basis Hippocampal formations appear symmetric. There are no abnormal flow voids. IMPRESSION: Essentially normal noncontrast MRI of the brain for age. Electronically signed by: Neri Spicer M.D. 11/25/2016 9:23 AM Dictated Date/Time: 11/25/2016 9:20 AM
[2016-11-25] MEDS: IPRATROPIUM BROMIDE/ALBUTEROL respimat INH INH SCH ×4 (10:15→20:55)
[2016-11-25] MEDS: NYSTATIN CR 15 GM TUBE EXT SCH ×2 (10:15→20:00)
[2016-11-25] MEDS: POTASSIUM CHLORIDE 20 MEQ TABCR PO SCH ×2 (10:18→20:56)
[2016-11-25] MEDS: ENOXAPARIN 40 MG/0.4 ML SYR SC SCH (10:19)
[2016-11-25] MEDS: LITHIUM CARBONATE 300 MG TAB PO SCH ×2 (10:19→12:54)
[2016-11-25] MEDS: LEVETIRACETAM 500 MG TAB PO SCH ×2 (10:20→20:55)
[2016-11-25] MEDS: FUROSEMIDE 80 MG TAB PO SCH ×2 (10:20→16:53)
[2016-11-25] MEDS: LISINOPRIL 5 MG TAB PO SCH (10:21)
[2016-11-25] MEDS: METOLAZONE 5 MG TAB PO SCH (10:21)
--- NOTE | 2016-11-25 10:21 | Family Medicine Progress Note ---
Progress Note Date of Service Nov 25, 2016. Subjective Pt evaluation today including: conversation w/ patient, physical exam Patient had MRI brain which was normal. Was reviewed by Neuro as well. No further events on Telemetry. No pain, no weakness, no chest pain. Additional Comments: ROS negative except for HPI Medications Current Inpatient Medications Medications (Trade) Dose Ordered Sig/Nanette Route Start Time Stop Time Status Last Admin Dose Admin Sodium Chloride 1,000 ml @ 75 mls/hr [id number] IV 11/24/16 23:45 12/24/16 23:44 11/25/16 00:01 75 MLS/HR Acetaminophen (Tylenol Tab) 650 mg Q4H PRN PO 11/24/16 22:30 12/24/16 22:29 11/25/16 01:29 650 MG Ondansetron HCl (Zofran Inj) 4 mg Q6H PRN IV 11/24/16 22:30 12/24/16 22:29 Polyethylene (Miralax Powder Packet) 17 gm DAILY PRN PO 11/24/16 22:30 12/24/16 22:29 Enoxaparin Sodium (Lovenox Inj) 40 mg Q24H SC 11/25/16 09:00 12/25/16 08:59 Furosemide (Lasix Tab) 80 mg BID17 PO 11/25/16 09:00 12/25/16 08:59 Albuterol/ Ipratropium (Combivent Respimat Inh) 1 puffs QID INH 11/25/16 09:00 12/25/16 08:59 Levetiracetam (Keppra Tab) 500 mg BID PO 11/25/16 09:00 12/25/16 08:59 Lisinopril (Zestril Tab) 5 mg QAM PO 11/25/16 09:00 12/25/16 08:59 [facility] Carbonate (Lithobid Tab) 600 mg HS PO 11/25/16 21:00 12/25/16 20:59 Magnesium Oxide (Mag-Ox Tab) 400 mg QAM PO 11/25/16 09:00 12/25/16 08:59 Metolazone (Zaroxolyn Tab) 5 mg DAILY PO 11/25/16 09:00 12/25/16 08:59 Nystatin (Mycostatin Crm) 1 appln BID EXT 11/25/16 09:00 12/25/16 08:59 Potassium Chloride (Klor-Con Tab) 60 meq QAM PO 11/25/16 09:00 12/25/16 08:59 Miscellaneous Information (Order Awaiting Action) 1 ea QS N/A 11/25/16 08:00 12/25/16 07:59 Insulin Aspart (novoLOG ASPART) SLIDING SCALE G... ACHS SC 11/25/16 07:00 12/25/16 06:59 Miscellaneous (Iv Fluids Completed) 1 ea PRN PRN N/A 11/24/16 23:45 11/24/17 23:44 Glucose (Glucose 40% Gel) 15-30 GRAMS 15 GRAMS... UD PRN PO 11/24/16 23:45 12/24/16 23:44 Glucose (Glucose Chew Tab) 4-8 Tablets 4 Tabl... UD PRN PO 11/24/16 23:45 12/24/16 23:44 Dextrose (Dextrose 50% 50ML Syringe) 25-50ML OF 50% DW IV FOR... UD PRN IV 11/24/16 23:45 12/24/16 23:44 Glucagon (Glucagon Inj) 1 mg UD PRN SQ 11/24/16 23:45 12/24/16 23:44 Lactulose (Chronulac Syrup) 30 gm TID PO 11/25/16 00:39 12/25/16 00:38 11/25/16 01:24 30 GM Potassium Chloride (Klor-Con Tab) 40 meq PM PO 11/25/16 21:00 12/25/16 20:59 [facility] Carbonate ([facility] Carbonate Tab) 300 mg BID@0900,1400 PO 11/25/16 09:00 12/25/16 08:59 Objective Vital Signs Date Time Temp Pulse Resp B/P (MAP) Pulse Ox O2 Delivery O2 Flow Rate FiO2 11/25/16 07:49 36.9 87 20 102/57 (72) 96 Nasal Cannula 2.0 11/25/16 04:00 98 Nasal Cannula 2.0 11/25/16 03:49 36.9 82 18 113/65 (81) 98 Nasal Cannula 2.0 11/25/16 01:30 112/64 (80) 11/25/16 01:00 103/61 (75) 11/25/16 00:30 99/70 (80) 11/25/16 00:00 36.9 85 18 93/75 98 Nasal Cannula 2.0 11/24/16 23:03 85 18 110/66 100 11/24/16 22:00 83 18 98/63 100 Nasal Cannula 2.0 11/24/16 21:11 86 11/24/16 21:00 86 14 118/78 96 Nasal Cannula 2.0 11/24/16 19:03 94 18 110/68 98 Nasal Cannula 2.0 11/24/16 18:14 88 24 131/61 96 Nasal Cannula 2.0 11/24/16 17:16 92 11/24/16 16:30 94 20 118/65 92 Nasal Cannula 2.0 11/24/16 14:40 97 18 101/70 97 Nasal Cannula 2.0 11/24/16 13:14 37.0 115 20 130/83 96 Nasal Cannula 2.0 11/24/16 13:14 96 Nasal Cannula 2.0 11/24/16 13:11 113 Physical Exam General Appearance: WD/WN, no apparent distress Eyes: normal inspection, PERRL ENT: hearing grossly normal Neck: supple, no JVD Respiratory/Chest: lungs clear, + decreased breath sounds, + pertinent finding Cardiovascular: regular rate, rhythm, no murmur Abdomen: normal bowel sounds, non tender, soft, + pertinent finding (umbilical hernia ) Extremities: non-tender, no pedal edema 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: alert, normal mood/affect, oriented x 3 Skin: no rash Laboratory Results Last 24 Hours Test 11/24/16 14:30 11/24/16 14:36 11/24/16 17:16 11/24/16 22:10 Lactic Acid Level 1.2 mmol/L White Blood Count 6.34 K/uL Red Blood Count 4.63 M/uL Hemoglobin 12.5 g/dL Hematocrit 41.7 % Mean Corpuscular Volume 90.1 fL Mean Corpuscular Hemoglobin 27.0 pg Mean Corpuscular Hemoglobin Concent 30.0 g/dl Platelet Count 218 K/uL Mean Platelet Volume 9.4 fL Neutrophils (%) (Auto) 87.8 % Lymphocytes (%) (Auto) 7.1 % Monocytes (%) (Auto) 4.4 % Eosinophils (%) (Auto) 0.3 % Basophils (%) (Auto) 0.2 % Neutrophils # (Auto) 5.57 K/uL Lymphocytes # (Auto) 0.45 K/uL Monocytes # (Auto) 0.28 K/uL Eosinophils # (Auto) 0.02 K/uL Basophils # (Auto) 0.01 K/uL RDW Standard Deviation 48.4 fL RDW Coefficient of Variation 14.7 % Immature Granulocyte % (Auto) 0.2 % Immature Granulocyte # (Auto) 0.01 K/uL Sodium Level 129 mmol/L Potassium Level 3.4 mmol/L Chloride Level 84 mmol/L Carbon Dioxide Level 40 mmol/L Anion Gap 5.0 mmol/L Blood Urea Nitrogen 12 mg/dl Creatinine 0.98 mg/dl Est Creatinine Clear Calc Drug Dose 68.5 ml/min Estimated GFR () 72.2 Estimated GFR (Non- 62.3 BUN/Creatinine Ratio 12.1 Random Glucose 273 mg/dl Calcium Level 9.8 mg/dl Magnesium Level 2.4 mg/dl Total Bilirubin 0.6 mg/dl Aspartate Amino Transf (AST/SGOT) 28 U/L Alanine Aminotransferase (ALT/SGPT) 22 U/L Alkaline Phosphatase 62 U/L Pro-B-Type Natriuretic Peptide 743 pg/ml Total Protein 7.5 gm/dl Albumin 3.7 gm/dl Globulin 3.8 gm/dl Albumin/Globulin Ratio 1.0 Thyroid Stimulating Hormone (TSH) 0.866 uIu/ml [facility] Level 0.7 mMOL/L Ammonia 95.0 umol/L Urine Color YELLOW Urine Appearance CLOUDY Urine pH 8.0 Urine Specific [place] 1.015 Urine Protein 1+ Urine Glucose (UA) NEG Urine Ketones NEG Urine Occult Blood NEG Urine Nitrite NEG Urine Bilirubin NEG Urine Urobilinogen NEG Urine Leukocyte Esterase NEG Urine WBC (Auto) 1-5 /hpf Urine RBC (Auto) 5-10 /hpf Urine Hyaline Casts (Auto) 1-5 /lpf Urine Epithelial Cells (Auto) >30 /lpf Urine Bacteria (Auto) NEG Urine Yeast (Auto) Test 11/25/16 06:22 11/25/16 06:27 White Blood Count 6.51 K/uL Red Blood Count 4.44 M/uL Hemoglobin 12.1 g/dL Hematocrit 41.1 % Mean Corpuscular Volume 92.6 fL Mean Corpuscular Hemoglobin 27.3 pg Mean Corpuscular Hemoglobin Concent 29.4 g/dl Platelet Count 185 K/uL Mean Platelet Volume 9.0 fL Neutrophils (%) (Auto) 77.2 % Lymphocytes (%) (Auto) 10.1 % Monocytes (%) (Auto) 10.9 % Eosinophils (%) (Auto) 1.4 % Basophils (%) (Auto) 0.2 % Neutrophils # (Auto) 5.03 K/uL Lymphocytes # (Auto) 0.66 K/uL Monocytes # (Auto) 0.71 K/uL Eosinophils # (Auto) 0.09 K/uL Basophils # (Auto) 0.01 K/uL RDW Standard Deviation 50.5 fL RDW Coefficient of Variation 14.9 % Immature Granulocyte % (Auto) 0.2 % Immature Granulocyte # (Auto) 0.01 K/uL Sodium Level 132 mmol/L Potassium Level 3.7 mmol/L Chloride Level 88 mmol/L Carbon Dioxide Level 40 mmol/L Anion Gap 4.0 mmol/L Blood Urea Nitrogen 10 mg/dl Creatinine 0.73 mg/dl Est Creatinine Clear Calc Drug Dose 91.3 ml/min Estimated GFR () 103.0 Estimated GFR (Non- 88.9 BUN/Creatinine Ratio 13.8 Random Glucose 228 mg/dl Calcium Level 9.2 mg/dl Total Bilirubin 0.6 mg/dl Aspartate Amino Transf (AST/SGOT) 25 U/L Alanine Aminotransferase (ALT/SGPT) 20 U/L Alkaline Phosphatase 56 U/L Ammonia 87.0 umol/L Total Protein 7.0 gm/dl Albumin 3.3 gm/dl Globulin 3.7 gm/dl Albumin/Globulin Ratio 0.9 Bedside Glucose 217 mg/dl Assessment and Plan 61 yo F presents with weakness - ruled out stroke, other ddx includes vasovagal / dehydration. Near-syncopal event Orthostatic VS PT/OT/Speech CT head and MRI brain completed to rule out stroke Neuro following Hyperammonemia, near baseline Trend Ammonia level at 95 Lactulose 30 mg 3 times a day Gastroenterology consult Chronic hyponatremia Sodium at 129 Continue IV fluids Diabetes - Insulin sliding scale CHF - Currently euvolemic - Continue Lasix, metolazone - Daily weights with strict I's and O's - Echo: 12/26: * 1. Mildly dilated left ventricle with low-normal systolic function. EF 50-55 %. No regional wall motion abnormalities. No significant left ventricular hypertrophy. Type 1 diastolic dysfunction. Septal flattening consistent with RV volume overload. 2. Severely dilated right ventricle with visually mildly reduced systolic function. 3. The left atrium is mildly dilated. 4. The right atrium is moderately dilated. 5. Probably moderate to severe tricuspid regurgitation. 6. Mild pulmonary hypertension suggested; estimated RVSP 43 mmHg. 7. Compared to prior study on 01/05/2015, LV systolic function is now low normal and estimated RVSP has improved. Bipolar disorder - Continue home meds - [facility] level within range Full code DVT prophylaxis: - Heparin subcutaneous Disposition: Transfer to Med/Surg Resident Physician Supervision Note: I interviewed and examined the patient. Discussed with Dr. Romero and agree with findings and plan as documented in the note. Any exceptions or clarifications are listed here: None Documented By: Jeremiah Lewis not feeling weak/shaky anymore, but also hasn't been up. L shoulder pain sudden onset no trauma but hurts to move. ROS otherwise negative except for as above vitals noted nad breathing unlabored no pallor or icterus, L shoulder - has elbow at side of flank, painful w AROM or PROM, no crepitis, diffuse tenderness , no effusions no erythema weak/shaky - appearing most likely volume depletion - continue w/u and f/u as above and as per neuro (d/w dr shea), increase activity shoulder pain - most c/w frozen shoulder. is longstanding diabetic making probability higher, and sudden nontraumatic onset fits clinical picture. voltaren gel, PT/OT, hopefully can give trial to OMT (will give a few doses of voltaren gel first to try to lessen pain) otherwise as above Resident Tracking Resident Involvement: Resident Care Provided Care Provided: Adult Hospital Medicine
[2016-11-25] MEDS: MAGNESIUM OXIDE 400 MG TAB PO SCH (10:22)
--- NOTE | 2016-11-25 11:10 | Neurology Consultation ---
Neurology Consultation Date of Consultation: Nov 25, 2016. Attending Physician: Jeremiah Lewis D.O. Primary Care Physician: Bin Patel M.D. Reason for Consultation: Shaking of the legs History of Present Illness Source: patient, hospital records The patient is a 61-year-old female who experienced an episode of shaking of both legs that occurred yesterday morning upon standing up from the commode at home. She recalls having extreme difficulty moving her legs at that time and indicates that they were shaking mildly. She felt as if she was unable to bear her weight and attempted to crawl into bed. The patient indicates that she was unable to climb up into bed, however, even with the assistance of her . She denies experiencing associated dizziness or loss of awareness or consciousness during this episode. She denies experiencing any associated low back pain. Past medical history notable for myoclonic type jerking movements of the right upper limb occurring in the context of rhabdomyolysis and other metabolic abnormalities in 2014. An electroencephalogram at that time revealed changes suggestive of encephalopathy but was otherwise negative for epileptiform abnormalities. The patient was empirically treated with Keppra and her symptoms improved. Past medical history significant for bipolar disorder, diabetes mellitus, and renal failure. She presents with hyperammonemia and mild hyponatremia as well. I reviewed the images and radiologist's interpretation of the easily completed brain MRI. There is no evidence of acute or subacute stroke. There is minimal age-related microvascular change. No evidence of mesial temporal sclerosis or other significant parenchymal abnormalities. An electroencephalogram was completed at bedside this morning. Results are currently pending. Past Medical/Surgical History Medical Problems: (1) Change in mental status Status: Acute (2) CHF (congestive heart failure) Status: Acute (3) CHF (congestive heart failure) Status: Acute (4) CO2 retention Status: Acute (5) Fall Status: Acute (6) Hyperammonemia Status: Acute (7) Hyperammonemia Status: Acute (8) Hypercarbia Status: Acute (9) Hyperglycemia Status: Acute (10) Hypokalemia Status: Acute (11) Hyponatremia Status: Acute (12) Hyponatremia Status: Acute (13) Hyponatremia Status: Acute (14) Lower extremity weakness Status: Acute (15) Seizure Status: Acute (16) SOB (shortness of breath) Status: Acute (17) Weakness Status: Acute Family History Family history notable for hypertension, diabetes, and heart disease Social History Smoking Status: Never smoker Drug Use: none Marital Status: Housing Status: lives with family Occupation Status: retired Allergies Coded Allergies: No Known Allergies (Verified , `, 11/24/16) Current Inpatient Medications Current Inpatient Medications Medications (Trade) Dose Ordered Sig/Nanette Route Start Time Stop Time Status Last Admin Dose Admin Sodium Chloride 1,000 ml @ 75 mls/hr [id number] IV 11/24/16 23:45 12/24/16 23:44 11/25/16 00:01 75 MLS/HR Acetaminophen (Tylenol Tab) 650 mg Q4H PRN PO 11/24/16 22:30 12/24/16 22:29 11/25/16 01:29 650 MG Ondansetron HCl (Zofran Inj) 4 mg Q6H PRN IV 11/24/16 22:30 12/24/16 22:29 Polyethylene (Miralax Powder Packet) 17 gm DAILY PRN PO 11/24/16 22:30 12/24/16 22:29 Enoxaparin Sodium (Lovenox Inj) 40 mg Q24H SC 11/25/16 09:00 12/25/16 08:59 11/25/16 10:19 40 MG Furosemide (Lasix Tab) 80 mg BID17 PO 11/25/16 09:00 12/25/16 08:59 11/25/16 10:20 80 MG Albuterol/ Ipratropium (Combivent Respimat Inh) 1 puffs QID INH 11/25/16 09:00 12/25/16 08:59 11/25/16 10:15 1 PUFFS Levetiracetam (Keppra Tab) 500 mg BID PO 11/25/16 09:00 12/25/16 08:59 11/25/16 10:20 500 MG Lisinopril (Zestril Tab) 5 mg QAM PO 11/25/16 09:00 12/25/16 08:59 11/25/16 10:21 5 MG Clover Carbonate (Lithobid Tab) 600 mg HS PO 11/25/16 21:00 12/25/16 20:59 Magnesium Oxide (Mag-Ox Tab) 400 mg QAM PO 11/25/16 09:00 12/25/16 08:59 11/25/16 10:22 400 MG Metolazone (Zaroxolyn Tab) 5 mg DAILY PO 11/25/16 09:00 12/25/16 08:59 11/25/16 10:21 5 MG Nystatin (Mycostatin Crm) 1 appln BID EXT 11/25/16 09:00 12/25/16 08:59 11/25/16 10:15 1 APPLN Potassium Chloride (Klor-Con Tab) 60 meq QAM PO 11/25/16 09:00 12/25/16 08:59 11/25/16 10:18 60 MEQ Miscellaneous Information (Order Awaiting Action) 1 ea QS N/A 11/25/16 08:00 12/25/16 07:59 Insulin Aspart (novoLOG ASPART) SLIDING SCALE G... ACHS SC 11/25/16 07:00 12/25/16 06:59 11/25/16 07:00 9 UNITS Miscellaneous (Iv Fluids Completed) 1 ea PRN PRN N/A 11/24/16 23:45 11/24/17 23:44 Glucose (Glucose 40% Gel) 15-30 GRAMS 15 GRAMS... UD PRN PO 11/24/16 23:45 12/24/16 23:44 Glucose (Glucose Chew Tab) 4-8 Tablets 4 Tabl... UD PRN PO 11/24/16 23:45 12/24/16 23:44 Dextrose (Dextrose 50% 50ML Syringe) 25-50ML OF 50% DW IV FOR... UD PRN IV 11/24/16 23:45 12/24/16 23:44 Glucagon (Glucagon Inj) 1 mg UD PRN SQ 11/24/16 23:45 12/24/16 23:44 Lactulose (Chronulac Syrup) 30 gm TID PO 11/25/16 00:39 12/25/16 00:38 11/25/16 10:16 30 GM Potassium Chloride (Klor-Con Tab) 40 meq PM PO 11/25/16 21:00 12/25/16 20:59 Clover Carbonate (Clover Carbonate Tab) 300 mg BID@0900,1400 PO 11/25/16 09:00 12/25/16 08:59 11/25/16 10:19 300 MG Review of Systems The patient denies headache, vertigo, vision changes, sensory loss, changes in speech or swallowing She does complain of some left upper extremity weakness and pain potentially related to her recent episode A full 10 point review of systems was obtained from this patient with pertinent positives and negatives described in the history of present illness and otherwise listed above. All remaining systems reviewed and are negative. Physical Exam Vital Signs (Past 24 Hrs): Date Time Temp Pulse Resp B/P (MAP) Pulse Ox O2 Delivery O2 Flow Rate FiO2 11/25/16 07:49 36.9 87 20 102/57 (72) 96 Nasal Cannula 2.0 11/25/16 04:00 98 Nasal Cannula 2.0 11/25/16 03:49 36.9 82 18 113/65 (81) 98 Nasal Cannula 2.0 11/25/16 01:30 112/64 (80) 11/25/16 01:00 103/61 (75) 11/25/16 00:30 99/70 (80) 11/25/16 00:00 36.9 85 18 93/75 98 Nasal Cannula 2.0 11/24/16 23:03 85 18 110/66 100 11/24/16 22:00 83 18 98/63 100 Nasal Cannula 2.0 11/24/16 21:11 86 11/24/16 21:00 86 14 118/78 96 Nasal Cannula 2.0 11/24/16 19:03 94 18 110/68 98 Nasal Cannula 2.0 11/24/16 18:14 88 24 131/61 96 Nasal Cannula 2.0 11/24/16 17:16 92 11/24/16 16:30 94 20 118/65 92 Nasal Cannula 2.0 11/24/16 14:40 97 18 101/70 97 Nasal Cannula 2.0 11/24/16 13:14 37.0 115 20 130/83 96 Nasal Cannula 2.0 11/24/16 13:14 96 Nasal Cannula 2.0 11/24/16 13:11 113 The patient is a well-developed, well-nourished female. She is sitting up comfortably in bed. She is pleasant and cooperative and is eating breakfast. No acute distress. The patient is alert and oriented to person place and time. Attention and concentration normal. Recent and remote memory intact. She exhibits a normal spontaneous speech pattern. Fund of knowledge normal. Visual norris full to confrontation. Pupils equal round reactive to light and accommodation. Eye movements normal. There is no nystagmus. Facial sensation and expression intact and symmetrical. Palate elevates to midline. Tongue protrudes to midline. Shoulder shrug and hearing intact bilaterally. There is diminished sensation to vibration at the ankles bilaterally. Sensation to light touch, temperature, and proprioception intact. Deep tendon reflexes are normoactive and symmetric for the arms and legs bilaterally. Plantar responses downgoing bilaterally. There is no dysmetria with finger to nose or heel to alfaro although the patient exhibits some pain and guarding with the left upper extremity that require proximal movements. Otherwise, facility and grasping intact. Ophthalmoscopic examination cannot be adequately completed. Unable to adequately visualize the optic nerves or posterior segments. Carotid pulses normal to auscultation bilaterally, no bruits. There appears to be normal motor strength and tone for all 4 limbs proximally and distally. However, the patient does exhibit some guarding with movements of the left upper extremity that require proximal movement. She complains of some pain in this area as well. No obvious deformity. No tremors, fasciculations or abnormal movements observed. Gait cannot be tested. Laboratory Results Past 24 Hours: 11/25/16 06:22 Red Blood Count 4.44, Mean Corpuscular Volume 92.6, Mean Corpuscular Hemoglobin 27.3, Mean Corpuscular Hemoglobin Concent 29.4, Mean Platelet Volume 9.0, Neutrophils (%) (Auto) 77.2, Lymphocytes (%) (Auto) 10.1, Monocytes (%) (Auto) 10.9, Eosinophils (%) (Auto) 1.4, Basophils (%) (Auto) 0.2, Neutrophils # (Auto ) 5.03, Lymphocytes # (Auto) 0.66, Monocytes # (Auto) 0.71, Eosinophils # (Auto ) 0.09, Basophils # (Auto) 0.01 11/25/16 06:22 Test 11/24/16 14:30 11/24/16 14:36 11/24/16 22:10 11/25/16 06:22 Lactic Acid Level 1.2 mmol/L (0.4-2.0) Magnesium Level 2.4 mg/dl (1.8-2.4) Pro-B-Type Natriuretic Peptide 743 pg/ml (0-900) Thyroid Stimulating Hormone (TSH) 0.866 uIu/ml (0.300-4.500) Clover Level 0.7 mMOL/L (0.6-1.2) Urine Color YELLOW Urine Appearance CLOUDY (CLEAR) Urine pH 8.0 (4.5-7.5) Urine Specific [place] 1.015 (1.000-1.030) Urine Protein 1+ (NEG) Urine Glucose (UA) NEG (NEG) Urine Ketones NEG (NEG) Urine Occult Blood NEG (NEG) Urine Nitrite NEG (NEG) Urine Bilirubin NEG (NEG) Urine Urobilinogen NEG (NEG) Urine Leukocyte Esterase NEG (NEG) Urine WBC (Auto) 1-5 /hpf (0-5) Urine RBC (Auto) 5-10 /hpf (0-4) Urine Hyaline Casts (Auto) 1-5 /lpf (0-5) Urine Epithelial Cells (Auto) >30 /lpf (0-5) Urine Bacteria (Auto) NEG (NEG) Urine Yeast (Auto) (NONE PRSENT) White Blood Count 6.51 K/uL (4.8-10.8) Red Blood Count 4.44 M/uL (4.2-5.4) Hemoglobin 12.1 g/dL (12.0-16.0) Hematocrit 41.1 % (37-47) Mean Corpuscular Volume 92.6 fL (80-100) Mean Corpuscular Hemoglobin 27.3 pg (25-34) Mean Corpuscular Hemoglobin Concent 29.4 g/dl (32-36) Platelet Count 185 K/uL (130-400) Mean Platelet Volume 9.0 fL (7.4-10.4) Neutrophils (%) (Auto) 77.2 % Lymphocytes (%) (Auto) 10.1 % Monocytes (%) (Auto) 10.9 % Eosinophils (%) (Auto) 1.4 % Basophils (%) (Auto) 0.2 % Neutrophils # (Auto) 5.03 K/uL (1.4-6.5) Lymphocytes # (Auto) 0.66 K/uL (1.2-3.4) Monocytes # (Auto) 0.71 K/uL (0.11-0.59) Eosinophils # (Auto) 0.09 K/uL (0-0.5) Basophils # (Auto) 0.01 K/uL (0-0.2) RDW Standard Deviation 50.5 fL (36.4-46.3) RDW Coefficient of Variation 14.9 % (11.5-14.5) Immature Granulocyte % (Auto) 0.2 % Immature Granulocyte # (Auto) 0.01 K/uL (0.00-0.02) Anion Gap 4.0 mmol/L (3-11) Est Creatinine Clear Calc Drug Dose 91.3 ml/min Estimated GFR () 103.0 Estimated GFR (Non- 88.9 BUN/Creatinine Ratio 13.8 (10-20) Calcium Level 9.2 mg/dl (8.5-10.1) Total Bilirubin 0.6 mg/dl (0.2-1) Aspartate Amino Transf (AST/SGOT) 25 U/L (15-37) Alanine Aminotransferase (ALT/SGPT) 20 U/L (12-78) Alkaline Phosphatase 56 U/L (45-117) Ammonia 87.0 umol/L (11-32) Total Protein 7.0 gm/dl (6.4-8.2) Albumin 3.3 gm/dl (3.4-5.0) Globulin 3.7 gm/dl (2.5-4.0) Albumin/Globulin Ratio 0.9 (0.9-2) Test 11/25/16 06:27 Bedside Glucose 217 mg/dl (70-90) Date/Time Source Procedure Growth Status 11/25/16 01:05 Nasal MRSA DNA Surveillance Screen - Final Specimen Negative for MRSA by DNA Probe Complete Impression This patient experienced a brief episode of mild shaking of both lower limbs that occurred upon standing up from the commode yesterday morning. She felt as if her legs were weak at that time and attempted to crawl into bed but was unable to do so even with the assistance of her . There is no associated loss of consciousness or alteration in level of awareness. There is no associated low back pain. I am not really certain what happened to this patient yesterday morning. She may have had a "shaking TIA" or may have experienced transient sciatic nerve compression from sitting on the commode. Her recently completed brain MRI is generally unremarkable and is not really offer additional insight into yesterday 's episode. There is no evidence of rhabdomyolysis on her recently completed labs. The extent to which the identified hyperammonemia may have contributed to yesterday's episode is unknown. The patient does not appear to be encephalopathic. She did not exhibit any obvious myoclonus this morning. I do not think the mild hyponatremia is clinically significant. I would also note that this patient's previous electroencephalogram did not provide supportive evidence of a seizure disorder in this patient. Furthermore, the recent episode occurred in the context of reportedly intact alertness and awareness but involved both lower limbs which would probably exclude a convulsive episode. Plan Would obtain a carotid ultrasound Would obtain x-rays of the cervical, thoracic, and lumbar spine. Would consider obtaining a follow-up spinal CT depending on the above results. This patient may continue with Keppra at the current dosage. Follow up with results of the EEG when available Consider further evaluation of left upper extremity pain and guarding Case discussed with hospitalist at bedside this morning
--- NOTE | 2016-11-25 11:45 | Medical Student: [facility] ---
Consultation Date of Consultation: Nov 25, 2016. Attending Physician: Santosh Wood MD Reason for Consultation: possible seizure History of Present Illness Patient is a 61-year-old female who presented to the ED yesterday afternoon after an episode of shaking and weakness. Earlier that morning, the patient was using the bathroom and after attempting to stand up from the toilet, her legs suddenly felt weak as if they were "not working." As she attempted to walk, her body began to shake. She knelt instead and crawled into a chair. After sitting, she attempted to move to her bed by crawling to it. However, she could not raise herself into her bed and called for help from her , who also could not transport her into the bed. At no point in time during this episode did she fall or lose consciousness. Patient denies any numbness, tingling, headaches, visual disturbances, dizziness, nausea, vomiting, or back pain. Patient denies experiencing an aura or any other premonition heralding the episode of weakness and shaking. She has been seen as a neurology outpatient for management of myoclonic jerks and was treated with Keppra. During her current admission she has been empirically treated with Keppra. Patient says she feels well today and denies any of the aforementioned symptoms, although she was guarding her left arm. She believes she may have slept on her arm, causing her discomfort. This arm pain has not happened before since her fistula placement. Patient presented with hyperglycemia, hyperammonemia, and hyponatremia. Past Medical/Surgical History Medical History: Patient has a past history of CHF, diabetes, and renal failure. She is on dialysis. Her fistula is in her left arm. Patient has also been previously followed for myoclonic jerks, for which she received Keppra. It is unclear if she has been compliant or if she is still taking medications for seizures. Patient was evaluated at [facility] last week for acute respiratory failure. Surgical History: Patient's fistula was placed in 2007. Social History Smoking Status: Never Smoker History of Alcohol Use: No Drug Use: none Marital Status: Housing Status: lives with significant other Occupation Status: retired Allergies Coded Allergies: No Known Allergies (Verified , `, 11/24/16) Medications Current Inpatient Medications Medications (Trade) Dose Ordered Sig/Nanette Route Start Time Stop Time Status Last Admin Dose Admin Sodium Chloride 1,000 ml @ 75 mls/hr [id number] IV 11/24/16 23:45 12/24/16 23:44 11/25/16 00:01 75 MLS/HR Acetaminophen (Tylenol Tab) 650 mg Q4H PRN PO 11/24/16 22:30 12/24/16 22:29 11/25/16 01:29 650 MG Ondansetron HCl (Zofran Inj) 4 mg Q6H PRN IV 11/24/16 22:30 12/24/16 22:29 Polyethylene (Miralax Powder Packet) 17 gm DAILY PRN PO 11/24/16 22:30 12/24/16 22:29 Enoxaparin Sodium (Lovenox Inj) 40 mg Q24H SC 11/25/16 09:00 12/25/16 08:59 11/25/16 10:19 40 MG Furosemide (Lasix Tab) 80 mg BID17 PO 11/25/16 09:00 12/25/16 08:59 11/25/16 10:20 80 MG Albuterol/ Ipratropium (Combivent Respimat Inh) 1 puffs QID INH 11/25/16 09:00 12/25/16 08:59 11/25/16 10:15 1 PUFFS Levetiracetam (Keppra Tab) 500 mg BID PO 11/25/16 09:00 12/25/16 08:59 11/25/16 10:20 500 MG Lisinopril (Zestril Tab) 5 mg QAM PO 11/25/16 09:00 12/25/16 08:59 11/25/16 10:21 5 MG [place] Carbonate (Lithobid Tab) 600 mg HS PO 11/25/16 21:00 12/25/16 20:59 Magnesium Oxide (Mag-Ox Tab) 400 mg QAM PO 11/25/16 09:00 12/25/16 08:59 11/25/16 10:22 400 MG Metolazone (Zaroxolyn Tab) 5 mg DAILY PO 11/25/16 09:00 12/25/16 08:59 11/25/16 10:21 5 MG Nystatin (Mycostatin Crm) 1 appln BID EXT 11/25/16 09:00 12/25/16 08:59 11/25/16 10:15 1 APPLN Potassium Chloride (Klor-Con Tab) 60 meq QAM PO 11/25/16 09:00 12/25/16 08:59 11/25/16 10:18 60 MEQ Miscellaneous Information (Order Awaiting Action) 1 ea QS N/A 11/25/16 08:00 12/25/16 07:59 Insulin Aspart (novoLOG ASPART) SLIDING SCALE G... ACHS SC 11/25/16 07:00 12/25/16 06:59 11/25/16 07:00 9 UNITS Miscellaneous (Iv Fluids Completed) 1 ea PRN PRN N/A 11/24/16 23:45 11/24/17 23:44 Glucose (Glucose 40% Gel) 15-30 GRAMS 15 GRAMS... UD PRN PO 11/24/16 23:45 12/24/16 23:44 Glucose (Glucose Chew Tab) 4-8 Tablets 4 Tabl... UD PRN PO 11/24/16 23:45 12/24/16 23:44 Dextrose (Dextrose 50% 50ML Syringe) 25-50ML OF 50% DW IV FOR... UD PRN IV 11/24/16 23:45 12/24/16 23:44 Glucagon (Glucagon Inj) 1 mg UD PRN SQ 11/24/16 23:45 12/24/16 23:44 Lactulose (Chronulac Syrup) 30 gm TID PO 11/25/16 00:39 12/25/16 00:38 11/25/16 10:16 30 GM Potassium Chloride (Klor-Con Tab) 40 meq PM PO 11/25/16 21:00 12/25/16 20:59 [place] Carbonate ([place] Carbonate Tab) 300 mg BID@0900,1400 PO 11/25/16 09:00 12/25/16 08:59 11/25/16 10:19 300 MG Diclofenac Sodium (Voltaren 1% Top Gel) 1 appln Q6 EXT 11/25/16 12:00 12/25/16 11:59 Physical Exam Date Time Temp Pulse Resp B/P (MAP) Pulse Ox O2 Delivery O2 Flow Rate FiO2 11/25/16 07:49 36.9 87 20 102/57 (72) 96 Nasal Cannula 2.0 11/25/16 04:00 98 Nasal Cannula 2.0 11/25/16 03:49 36.9 82 18 113/65 (81) 98 Nasal Cannula 2.0 11/25/16 01:30 112/64 (80) 11/25/16 01:00 103/61 (75) 11/25/16 00:30 99/70 (80) 11/25/16 00:00 36.9 85 18 93/75 98 Nasal Cannula 2.0 11/24/16 23:03 85 18 110/66 100 11/24/16 22:00 83 18 98/63 100 Nasal Cannula 2.0 11/24/16 21:11 86 11/24/16 21:00 86 14 118/78 96 Nasal Cannula 2.0 11/24/16 19:03 94 18 110/68 98 Nasal Cannula 2.0 11/24/16 18:14 88 24 131/61 96 Nasal Cannula 2.0 11/24/16 17:16 92 11/24/16 16:30 94 20 118/65 92 Nasal Cannula 2.0 11/24/16 14:40 97 18 101/70 97 Nasal Cannula 2.0 11/24/16 13:14 37.0 115 20 130/83 96 Nasal Cannula 2.0 11/24/16 13:14 96 Nasal Cannula 2.0 11/24/16 13:11 113 Eyes: bilateral eyes normal inspection, bilateral eyes EOMI Patient was alert and awake. Mood and affect seem appropriate. Speech was fluent and spontaneous, with no detectable dysarthria or aphasia. She was able to recall in great detail the account of her episode, correcting me when I incorrectly described the sequence or nature of events during my history- taking. Patient has insight of what happened to her with regards to the weakness and shaking. CN II - pupils sluggishly reactive to light. Visual norris were intact in all four quadrants. CN III, IV, - she would intermittently pause during examination of extraocular movements, but, with prompting, she was able to demonstrate full and intact EOMs. CN V - light touch sensation detected equally and bilaterally in V1, V2, and V3 distributions. No apparent sensation of diminished touch. CN VII - normal facial symmetry & strength exhibited bilaterally CN VIII - finger rub heard equally and bilaterally CN IX, X - palate elevation normal. CN XI - normal 5/5 strength on shoulder shrug against resistance. CN XII - midline tongue upon protrusion Motor exam was normal, with patient demonstrating 5/5 strength in the right deltoid, biceps, and triceps. As patient was guarding, she refused testing of motor strength in the left arm. 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 Strength was 5/5 bilaterally in the lower extremity in the hip flexors, quadriceps, and hamstrings. Sensory exam demonstrated normal sensation of light touch and temperature bilaterally in all four extremities. Sensation to vibration is diminished in the ankles. No dysmetria or ataxia was noted on finger to nose testing. Patient successfully completed heel to alfaro testing bilaterally. Gait could not be assessed in this patient. Laboratory Results Last 24 Hours Test 11/24/16 14:30 11/24/16 14:36 11/24/16 17:16 11/24/16 22:10 Lactic Acid Level 1.2 mmol/L White Blood Count 6.34 K/uL Red Blood Count 4.63 M/uL Hemoglobin 12.5 g/dL Hematocrit 41.7 % Mean Corpuscular Volume 90.1 fL Mean Corpuscular Hemoglobin 27.0 pg Mean Corpuscular Hemoglobin Concent 30.0 g/dl Platelet Count 218 K/uL Mean Platelet Volume 9.4 fL Neutrophils (%) (Auto) 87.8 % Lymphocytes (%) (Auto) 7.1 % Monocytes (%) (Auto) 4.4 % Eosinophils (%) (Auto) 0.3 % Basophils (%) (Auto) 0.2 % Neutrophils # (Auto) 5.57 K/uL Lymphocytes # (Auto) 0.45 K/uL Monocytes # (Auto) 0.28 K/uL Eosinophils # (Auto) 0.02 K/uL Basophils # (Auto) 0.01 K/uL RDW Standard Deviation 48.4 fL RDW Coefficient of Variation 14.7 % Immature Granulocyte % (Auto) 0.2 % Immature Granulocyte # (Auto) 0.01 K/uL Sodium Level 129 mmol/L Potassium Level 3.4 mmol/L Chloride Level 84 mmol/L Carbon Dioxide Level 40 mmol/L Anion Gap 5.0 mmol/L Blood Urea Nitrogen 12 mg/dl Creatinine 0.98 mg/dl Est Creatinine Clear Calc Drug Dose 68.5 ml/min Estimated GFR () 72.2 Estimated GFR (Non- 62.3 BUN/Creatinine Ratio 12.1 Random Glucose 273 mg/dl Calcium Level 9.8 mg/dl Magnesium Level 2.4 mg/dl Total Bilirubin 0.6 mg/dl Aspartate Amino Transf (AST/SGOT) 28 U/L Alanine Aminotransferase (ALT/SGPT) 22 U/L Alkaline Phosphatase 62 U/L Pro-B-Type Natriuretic Peptide 743 pg/ml Total Protein 7.5 gm/dl Albumin 3.7 gm/dl Globulin 3.8 gm/dl Albumin/Globulin Ratio 1.0 Thyroid Stimulating Hormone (TSH) 0.866 uIu/ml [place] Level 0.7 mMOL/L Ammonia 95.0 umol/L Urine Color YELLOW Urine Appearance CLOUDY Urine pH 8.0 Urine Specific [place] 1.015 Urine Protein 1+ Urine Glucose (UA) NEG Urine Ketones NEG Urine Occult Blood NEG Urine Nitrite NEG Urine Bilirubin NEG Urine Urobilinogen NEG Urine Leukocyte Esterase NEG Urine WBC (Auto) 1-5 /hpf Urine RBC (Auto) 5-10 /hpf Urine Hyaline Casts (Auto) 1-5 /lpf Urine Epithelial Cells (Auto) >30 /lpf Urine Bacteria (Auto) NEG Urine Yeast (Auto) Test 11/25/16 06:22 11/25/16 06:27 White Blood Count 6.51 K/uL Red Blood Count 4.44 M/uL Hemoglobin 12.1 g/dL Hematocrit 41.1 % Mean Corpuscular Volume 92.6 fL Mean Corpuscular Hemoglobin 27.3 pg Mean Corpuscular Hemoglobin Concent 29.4 g/dl Platelet Count 185 K/uL Mean Platelet Volume 9.0 fL Neutrophils (%) (Auto) 77.2 % Lymphocytes (%) (Auto) 10.1 % Monocytes (%) (Auto) 10.9 % Eosinophils (%) (Auto) 1.4 % Basophils (%) (Auto) 0.2 % Neutrophils # (Auto) 5.03 K/uL Lymphocytes # (Auto) 0.66 K/uL Monocytes # (Auto) 0.71 K/uL Eosinophils # (Auto) 0.09 K/uL Basophils # (Auto) 0.01 K/uL RDW Standard Deviation 50.5 fL RDW Coefficient of Variation 14.9 % Immature Granulocyte % (Auto) 0.2 % Immature Granulocyte # (Auto) 0.01 K/uL Sodium Level 132 mmol/L Potassium Level 3.7 mmol/L Chloride Level 88 mmol/L Carbon Dioxide Level 40 mmol/L Anion Gap 4.0 mmol/L Blood Urea Nitrogen 10 mg/dl Creatinine 0.73 mg/dl Est Creatinine Clear Calc Drug Dose 91.3 ml/min Estimated GFR () 103.0 Estimated GFR (Non- 88.9 BUN/Creatinine Ratio 13.8 Random Glucose 228 mg/dl Calcium Level 9.2 mg/dl Total Bilirubin 0.6 mg/dl Aspartate Amino Transf (AST/SGOT) 25 U/L Alanine Aminotransferase (ALT/SGPT) 20 U/L Alkaline Phosphatase 56 U/L Ammonia 87.0 umol/L Total Protein 7.0 gm/dl Albumin 3.3 gm/dl Globulin 3.7 gm/dl Albumin/Globulin Ratio 0.9 Bedside Glucose 217 mg/dl Assessment & Plan Problem List: Altered mental status Anasarca Change in mental status Assessment 1) Acute episode of weakness and shaking with an unclear underlying etiology It is difficult to say with certainty what the precise cause of the acute episode of weakness and shaking is. While she has a past history of myoclonic jerks, the elicited history does not suggest this was an episode of myoclonus. None was observed on exam today either. Her history and EEG also do not suggest that she had a seizure. She had no loss of consciousness or changes in alertness , no signs of a postictal state, and no focal findings seen yet on the EEG. Possible diagnoses include a shaking TIA or episode of motor dysfunction secondary to metabolic derangements. A shaking TIA may present similarly to seizures. Such a diagnosis is plausible given the presence of risk factors, such as age and diabetes. Her hyperammonemia may have contributed to her episode as well, but that is difficult to confirm. Plan 1) Obtain a carotid ultrasound. The possibility of a TIA, particularly a shaking TIA, warrants further investigation. The ultrasound will help elucidate the level of stenosis present and inform the likelihood of an ischemic event. 2) X-rays of the cervical, thoracic, and lumbar spine. Assess for spinal stenosis. 3) Continued management of metabolic abnormalities.
--- NOTE | 2016-11-25 12:30 | Medical Student: [facility] ---
Med Student Progress Note Date of Service Nov 25, 2016. Subjective Patient is a 61F with history of bipolar disorder I, CHF, diabetes II, and possible seizure disorder admitted to the hospital following possible seizure activity. Patient reports that yesterday morning, when she stood from the toilet to walk to the bedroom she experienced muscle weakness "from my head down " and shaking of the legs. She was forced to almost immediately stop and sit in a chair. Patient says this has never happened before. Since then, she has been largely immobile and has been sleeping extensively. There was a single episode of urinary incontinence while at MRI although she was aware she need to urinate prior to the occurrence. She also reports arm pain that began spontaneously simultaneously which causes pain only with movement that she rates a 10/10. Denies all other physical symptoms Review of Systems Constitutional: + see HPI Respiratory: + see HPI, No shortness of breath Cardiac: No chest pain, No edema, No palpitations Abdomen: No pain, No nausea, No vomiting, No diarrhea, No constipation Musculoskeletal: + joint pain (Lt shoulder), + muscle pain (LT shoulder + upper extremity with palpation) All Other Systems: Reviewed and Negative Objective Vital Signs Date Time Temp Pulse Resp B/P (MAP) Pulse Ox O2 Delivery O2 Flow Rate FiO2 11/25/16 07:49 36.9 87 20 102/57 (72) 96 Nasal Cannula 2.0 11/25/16 04:00 98 Nasal Cannula 2.0 11/25/16 03:49 36.9 82 18 113/65 (81) 98 Nasal Cannula 2.0 11/25/16 01:30 112/64 (80) 11/25/16 01:00 103/61 (75) 11/25/16 00:30 99/70 (80) 11/25/16 00:00 36.9 85 18 93/75 98 Nasal Cannula 2.0 11/24/16 23:03 85 18 110/66 100 11/24/16 22:00 83 18 98/63 100 Nasal Cannula 2.0 11/24/16 21:11 86 11/24/16 21:00 86 14 118/78 96 Nasal Cannula 2.0 11/24/16 19:03 94 18 110/68 98 Nasal Cannula 2.0 11/24/16 18:14 88 24 131/61 96 Nasal Cannula 2.0 11/24/16 17:16 92 6/14/17 16:30 94 20 118/65 92 Nasal Cannula 2.0 11/24/16 14:40 97 18 101/70 97 Nasal Cannula 2.0 11/24/16 13:14 37.0 115 20 130/83 96 Nasal Cannula 2.0 11/24/16 13:14 96 Nasal Cannula 2.0 11/24/16 13:11 113 Physical Exam General Appearance: WD/WN, no apparent distress, + obese Respiratory/Chest: lungs clear, normal breath sounds (somewhat decreased - D/C 11/22 for acute respiratory distress), no respiratory distress, no accessory muscle use Cardiovascular: regular rate, rhythm, no edema, no gallop, no murmur Abdomen: non tender, soft, + hernia (Reports has been presence since childhood) Extremities: normal capillary refill, + pertinent finding (Gaurding and pain of LT shoulder with any movement) 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: alert, normal mood/affect, oriented x 3 Skin: normal color, warm/dry, no rash Comments: Brain MRI to rule out structural abnormality, CVA - normal findings Laboratory Results Last 24 Hours Test 11/24/16 14:30 11/24/16 14:36 11/24/16 17:16 11/24/16 22:10 Lactic Acid Level 1.2 mmol/L White Blood Count 6.34 K/uL Red Blood Count 4.63 M/uL Hemoglobin 12.5 g/dL Hematocrit 41.7 % Mean Corpuscular Volume 90.1 fL Mean Corpuscular Hemoglobin 27.0 pg Mean Corpuscular Hemoglobin Concent 30.0 g/dl Platelet Count 218 K/uL Mean Platelet Volume 9.4 fL Neutrophils (%) (Auto) 87.8 % Lymphocytes (%) (Auto) 7.1 % Monocytes (%) (Auto) 4.4 % Eosinophils (%) (Auto) 0.3 % Basophils (%) (Auto) 0.2 % Neutrophils # (Auto) 5.57 K/uL Lymphocytes # (Auto) 0.45 K/uL Monocytes # (Auto) 0.28 K/uL Eosinophils # (Auto) 0.02 K/uL Basophils # (Auto) 0.01 K/uL RDW Standard Deviation 48.4 fL RDW Coefficient of Variation 14.7 % Immature Granulocyte % (Auto) 0.2 % Immature Granulocyte # (Auto) 0.01 K/uL Sodium Level 129 mmol/L Potassium Level 3.4 mmol/L Chloride Level 84 mmol/L Carbon Dioxide Level 40 mmol/L Anion Gap 5.0 mmol/L Blood Urea Nitrogen 12 mg/dl Creatinine 0.98 mg/dl Est Creatinine Clear Calc Drug Dose 68.5 ml/min Estimated GFR () 72.2 Estimated GFR (Non- 62.3 BUN/Creatinine Ratio 12.1 Random Glucose 273 mg/dl Calcium Level 9.8 mg/dl Magnesium Level 2.4 mg/dl Total Bilirubin 0.6 mg/dl Aspartate Amino Transf (AST/SGOT) 28 U/L Alanine Aminotransferase (ALT/SGPT) 22 U/L Alkaline Phosphatase 62 U/L Pro-B-Type Natriuretic Peptide 743 pg/ml Total Protein 7.5 gm/dl Albumin 3.7 gm/dl Globulin 3.8 gm/dl Albumin/Globulin Ratio 1.0 Thyroid Stimulating Hormone (TSH) 0.866 uIu/ml [place] Level 0.7 mMOL/L Ammonia 95.0 umol/L Urine Color YELLOW Urine Appearance CLOUDY Urine pH 8.0 Urine Specific [place] 1.015 Urine Protein 1+ Urine Glucose (UA) NEG Urine Ketones NEG Urine Occult Blood NEG Urine Nitrite NEG Urine Bilirubin NEG Urine Urobilinogen NEG Urine Leukocyte Esterase NEG Urine WBC (Auto) 1-5 /hpf Urine RBC (Auto) 5-10 /hpf Urine Hyaline Casts (Auto) 1-5 /lpf Urine Epithelial Cells (Auto) >30 /lpf Urine Bacteria (Auto) NEG Urine Yeast (Auto) Test 11/25/16 06:22 11/25/16 06:27 11/25/16 11:27 White Blood Count 6.51 K/uL Red Blood Count 4.44 M/uL Hemoglobin 12.1 g/dL Hematocrit 41.1 % Mean Corpuscular Volume 92.6 fL Mean Corpuscular Hemoglobin 27.3 pg Mean Corpuscular Hemoglobin Concent 29.4 g/dl Platelet Count 185 K/uL Mean Platelet Volume 9.0 fL Neutrophils (%) (Auto) 77.2 % Lymphocytes (%) (Auto) 10.1 % Monocytes (%) (Auto) 10.9 % Eosinophils (%) (Auto) 1.4 % Basophils (%) (Auto) 0.2 % Neutrophils # (Auto) 5.03 K/uL Lymphocytes # (Auto) 0.66 K/uL Monocytes # (Auto) 0.71 K/uL Eosinophils # (Auto) 0.09 K/uL Basophils # (Auto) 0.01 K/uL RDW Standard Deviation 50.5 fL RDW Coefficient of Variation 14.9 % Immature Granulocyte % (Auto) 0.2 % Immature Granulocyte # (Auto) 0.01 K/uL Sodium Level 132 mmol/L Potassium Level 3.7 mmol/L Chloride Level 88 mmol/L Carbon Dioxide Level 40 mmol/L Anion Gap 4.0 mmol/L Blood Urea Nitrogen 10 mg/dl Creatinine 0.73 mg/dl Est Creatinine Clear Calc Drug Dose 91.3 ml/min Estimated GFR () 103.0 Estimated GFR (Non- 88.9 BUN/Creatinine Ratio 13.8 Random Glucose 228 mg/dl Calcium Level 9.2 mg/dl Total Bilirubin 0.6 mg/dl Aspartate Amino Transf (AST/SGOT) 25 U/L Alanine Aminotransferase (ALT/SGPT) 20 U/L Alkaline Phosphatase 56 U/L Ammonia 87.0 umol/L Total Protein 7.0 gm/dl Albumin 3.3 gm/dl Globulin 3.7 gm/dl Albumin/Globulin Ratio 0.9 Bedside Glucose 217 mg/dl 219 mg/dl Medications Reported Home Medications Medications Dose Route/Sig Max Daily Dose Days Date Category Dose Instructions Novolog (Insulin Aspart) 100 Units/Ml Inj 10 Units SQ UD 11/24/16 Reported ONLY IF BS IS >180 Chronulac (Lactulose) 10 Gm/15 Ml Syrp 1 Dose PO DIRECTED 11/18/16 Reported Metolazone 5 Mg Tab 5 Mg PO DAILY 11/18/16 Reported [place] Carbonate 300 Mg Cap 300 Mg PO BID 11/18/16 Reported Haloperidol Decanoate 100 Mg/Ml Inj 1 Dose SQ DIRECTED 11/18/16 Reported Enoxaparin Sodium (Enoxaparin) 40 Mg/0.4 Ml Inj 40 Mg SC Q24H 7 06/29/16 Rx Mucinex Ext Rel (Guaifenesin) 600 Mg Tabcr 600 Mg PO Q12 7 06/29/16 Rx Lantus Solostar (Insulin Glargine) 100 Unit/Ml Inj 10 Unit SC Q12 30 06/29/16 Rx Miralax (Polyethylene) 17 Gm Pow 17 Gm PO DAILY PRN 30 06/29/16 Rx Dex4 (Glucose-Vitamin C) 1 Chw Chw 4-8 Tabs PO UD PRN 30 06/29/16 Rx Nystatin 45 Appln/15 Gm Cr 1 Appln EXT BID 30 06/29/16 Rx Tessalon Perles (Benzonatate) 200 Mg Cap 200 Mg PO Q8 06/21/16 Reported Combivent Respimat (Ipratropium-Albuterol) 1 Aer Aer 1 Puffs INH QID 02/03/16 Reported Furosemide 80 Mg Tab 80 Mg PO BID 12/24/15 Reported Klor-Con M20 (Potassium Chloride) 20 Meq Tabcr 60 Meq PO UD 04/09/15 Reported 3 tablets in the morning, 2 tablets at night Lisinopril 5 Mg Tab 5 Mg PO QAM 04/09/15 Reported Levetiracetam (Levetiractam) 500 Mg Tab 500 Mg PO BID 04/09/15 Reported Tylenol (Acetaminophen) 325 Mg Tab 650 Mg PO Q4 PRN 01/04/15 Reported DO NOT EXCEED 3GM/24HRS Mag-Ox (Magnesium Oxide) 400 Mg Tab 400 Mg PO QAM 01/04/15 Reported Lithobid Ext Rel ([place] [employer] Carbonate) 300 Mg Tab 600 Mg PO HS 01/04/15 Reported Vitamin D3 (Cholecalciferol) 1,000 Unit Cap 1,000 Inter.unit PO QAM 03/03/13 Reported Assessment and Plan Assessment and Plan: Weakness and shaking most likely secondary to volume depletion - Rehydrate with IV/PO fluids - Evaluate orthostatic vitals - Brain MRI + neuro consult to r/o possible seizure activity, TIA, etc. - Reassess Continued [facility] stay due to: other (Reassessment to determine if rehydration curative of admitting symptoms)
--- NOTE | 2016-11-25 12:31 | EEG Procedure Note ---
EEG Procedure Note Date of Service Nov 25, 2016. Start / End Times Start Time: 9:29 AM End Time: 9:49 AM Referring Physician Suzette Recinos History This is a 61-year-old female with seizure-like activity. EEG for further evaluation of possible seizure etiology. Home Medication List Scheduled Benzonatate (Tessalon Perles), 200 MG PO Q8 Cholecalciferol (Vitamin D3), 1,000 INTER.UNIT PO QAM Enoxaparin (Enoxaparin Sodium), 40 MG SC Q24H Furosemide (Furosemide), 80 MG PO BID Guaifenesin Ext Rel (Mucinex Ext Rel), 600 MG PO Q12 Haloperidol Decanoate (Haloperidol Decanoate), 1 DOSE SQ DIRECTED Insulin Aspart (Novolog), 10 UNITS SQ UD Insulin Glargine (Lantus Solostar), 10 UNIT SC Q12 Ipratropium-Albuterol (Combivent Respimat), 1 PUFFS INH QID Lactulose (Chronulac), 1 DOSE PO DIRECTED Levetiractam (Levetiracetam), 500 MG PO BID Lisinopril (Lisinopril), 5 MG PO QAM [place] Carbonate (Lithobid Ext Rel), 600 MG PO HS [place] Carbonate ([place] Carbonate), 300 MG PO BID Magnesium Oxide (Mag-Ox), 400 MG PO QAM Metolazone (Metolazone), 5 MG PO DAILY Nystatin (Nystatin), 1 APPLN EXT BID Potassium Chloride (Klor-Con M20), 60 MEQ PO UD Scheduled PRN Acetaminophen (Tylenol), 650 MG PO Q4 PRN for Pain or Fever Glucose-Vitamin C (Dex4), 4-8 TABS PO UD PRN for HYPOGLYCEMIA PROTOCOL Polyethylene (Miralax), 17 GM PO DAILY PRN for Constipation Inpatient Medication List Current Inpatient Medications Medications (Trade) Dose Ordered Sig/Nanette Route Start Time Stop Time Status Last Admin Dose Admin Sodium Chloride 1,000 ml @ 75 mls/hr [id number] IV 11/24/16 23:45 12/24/16 23:44 11/25/16 00:01 75 MLS/HR Acetaminophen (Tylenol Tab) 650 mg Q4H PRN PO 11/24/16 22:30 12/24/16 22:29 11/25/16 01:29 650 MG Ondansetron HCl (Zofran Inj) 4 mg Q6H PRN IV 11/24/16 22:30 12/24/16 22:29 Polyethylene (Miralax Powder Packet) 17 gm DAILY PRN PO 11/24/16 22:30 12/24/16 22:29 Enoxaparin Sodium (Lovenox Inj) 40 mg Q24H SC 11/25/16 09:00 12/25/16 08:59 11/25/16 10:19 40 MG Furosemide (Lasix Tab) 80 mg BID17 PO 11/25/16 09:00 12/25/16 08:59 11/25/16 10:20 80 MG Albuterol/ Ipratropium (Combivent Respimat Inh) 1 puffs QID INH 11/25/16 09:00 12/25/16 08:59 11/25/16 10:15 1 PUFFS Levetiracetam (Keppra Tab) 500 mg BID PO 11/25/16 09:00 12/25/16 08:59 11/25/16 10:20 500 MG Lisinopril (Zestril Tab) 5 mg QAM PO 11/25/16 09:00 12/25/16 08:59 11/25/16 10:21 5 MG [place] Carbonate (Lithobid Tab) 600 mg HS PO 11/25/16 21:00 12/25/16 20:59 Magnesium Oxide (Mag-Ox Tab) 400 mg QAM PO 11/25/16 09:00 12/25/16 08:59 11/25/16 10:22 400 MG Metolazone (Zaroxolyn Tab) 5 mg DAILY PO 11/25/16 09:00 12/25/16 08:59 11/25/16 10:21 5 MG Nystatin (Mycostatin Crm) 1 appln BID EXT 11/25/16 09:00 12/25/16 08:59 11/25/16 10:15 1 APPLN Potassium Chloride (Klor-Con Tab) 60 meq QAM PO 11/25/16 09:00 12/25/16 08:59 11/25/16 10:18 60 MEQ Miscellaneous Information (Order Awaiting Action) 1 ea QS N/A 11/25/16 08:00 12/25/16 07:59 Insulin Aspart (novoLOG ASPART) SLIDING SCALE G... ACHS SC 11/25/16 07:00 12/25/16 06:59 11/25/16 07:00 9 UNITS Miscellaneous (Iv Fluids Completed) 1 ea PRN PRN N/A 11/24/16 23:45 11/24/17 23:44 Glucose (Glucose 40% Gel) 15-30 GRAMS 15 GRAMS... UD PRN PO 11/24/16 23:45 12/24/16 23:44 Glucose (Glucose Chew Tab) 4-8 Tablets 4 Tabl... UD PRN PO 11/24/16 23:45 12/24/16 23:44 Dextrose (Dextrose 50% 50ML Syringe) 25-50ML OF 50% DW IV FOR... UD PRN IV 11/24/16 23:45 12/24/16 23:44 Glucagon (Glucagon Inj) 1 mg UD PRN SQ 11/24/16 23:45 12/24/16 23:44 Lactulose (Chronulac Syrup) 30 gm TID PO 11/25/16 00:39 12/25/16 00:38 11/25/16 10:16 30 GM Potassium Chloride (Klor-Con Tab) 40 meq PM PO 11/25/16 21:00 12/25/16 20:59 [place] Carbonate ([place] Carbonate Tab) 300 mg BID@0900,1400 PO 11/25/16 09:00 12/25/16 08:59 11/25/16 10:19 300 MG Diclofenac Sodium (Voltaren 1% Top Gel) 1 appln Q6 EXT 11/25/16 12:00 12/25/16 11:59 Description This is a 21 electrode EEG with a single channel dedicated to limited EKG. The electrodes were placed in accordance with the International 10-20 system. There was continuous diffuse muscle artifact that was frontally predominant. Intermittent IV sharp artifact was noted. On video the patient did appear to be shaking/shivering which did not have any EEG correlation other than muscle artifact. At the start of this recording the patient was awake/altered mental status. background was poorly organized with no well formed posterior to anterior gradient. Background was composed of symmetric moderate amplitude predominantly 5-6 Hz theta frequencies with intermixed alpha and beta frequencies. Hyperventilation was not done. Photic stimulation at various frequencies did not produce any abnormalities. There was no state changes or sleep transients. Interpretation This is an abnormal routine EEG secondary to mild to moderate background disorganization and slowing. There was no electrographic seizures or epileptiform discharges. Clinical Correlation This EEG indicates a mild to moderate diffuse encephalopathy of nonspecific etiology. There was some mild technical limitation to this EEG secondary to diffuse muscle artifact from shaking/shivering.
[2016-11-25] MEDS: DICLOFENAC SOD 1% GEL 100 GM TUBE EXT SCH ×2 (13:45→18:58)
--- NOTE | 2016-11-25 14:25 | DIAGNOSTIC IMAGING REPORT ---
C-SPINE ROUTINE 4 OR 5 VIEWS CLINICAL HISTORY: left arm weakness/pain COMPARISON STUDY: No previous studies for comparison. FINDINGS: There is a reversal the normal cervical lordosis. There are moderate multilevel degenerative changes with disc space narrowing most pronounced the C4-5 and C5-C6 levels. There is minor uncinate spurring with minimal bony foraminal encroachment at the C4-5 and C5-6 levels bilaterally. IMPRESSION: Moderate multilevel degenerative change. No acute fractures or subluxations identified. No destructive lesions are visualized. Electronically signed by: Neri Spicer M.D. 11/25/2016 2:24 PM Dictated Date/Time: 11/25/2016 2:23 PM
--- NOTE | 2016-11-25 14:26 | DIAGNOSTIC IMAGING REPORT ---
LUMBAR SPINE 5 VIEWS HISTORY: Pain. Neuropathy. Leg weakness. leg weakness COMPARISON: None. FINDINGS: There is no fracture. No subluxation. Disc spaces are preserved. Partial degenerative fusion of the anterior aspects of the T10-T11 and T12 vertebral bodies. IMPRESSION: Mild degenerative change. No acute process. Electronically signed by: Jeff Hahn M.D. 11/25/2016 2:25 PM Dictated Date/Time: 11/25/2016 2:24 PM
--- NOTE | 2016-11-25 14:50 | DIAGNOSTIC IMAGING REPORT ---
THORACIC SPINE 3 VIEWS HISTORY: leg weakness COMPARISON: None. FINDINGS: There is no fracture. No subluxation. Partial fusion of the anterior vertebral bodies from T10 through T12. Mild degenerative disc disease seen throughout the majority of the thoracic spine. Paraspinal soft tissues are unremarkable. The heart appears enlarged. This remains unchanged. IMPRESSION: No fracture or subluxation within the thoracic spine. Electronically signed by: Alfonso Perez M.D. 11/25/2016 2:48 PM Dictated Date/Time: 11/25/2016 2:46 PM
[2016-11-25] MEDS: LITHIUM CARBONATE SR 300 MG TAB (LITHOBID) PO SCH (20:57)
--- NOTE | 2016-11-25 22:47 | DIAGNOSTIC IMAGING REPORT ---
CAROTID ARTERY ULTRASOUND CLINICAL HISTORY: Transient ischemic attack. Seizure like activity. COMPARISON STUDY: Carotid ultrasound December 10, 2014. TECHNIQUE: Real-time, grayscale, and color Doppler sonography of the carotid and vertebral arteries was performed. Images were viewed in the transverse and longitudinal planes. FINDINGS: There is minimal atherosclerotic plaque. Velocity measurements are listed below. COMMON CAROTID PEAK SYSTOLIC VELOCITY (CM/S): RIGHT 70 LEFT 115 ICA PEAK SYSTOLIC VELOCITY (CM/S): RIGHT 56 LEFT 81 Systolic ratios between the internal to common carotid arteries are normal. Antegrade flow is seen in the vertebral arteries. The external carotid arteries are patent. Blood pressure was not be obtained in this patient. IMPRESSION: No evidence of a hemodynamically significant stenosis. Electronically signed by: Santana Lundy M.D. 11/25/2016 10:46 PM Dictated Date/Time: 11/25/2016 10:45 PM
[2016-11-26] MEDS: DICLOFENAC SOD 1% GEL 100 GM TUBE EXT SCH ×4 (00:58→17:23)
[2016-11-26] MEDS: ACETAMINOPHEN 325 MG TAB PO PRN ×5 (01:07→21:54)
[2016-11-26] MEDS: SODIUM CHLORIDE 0.9% 1000ML 1,000 ML IV SCH ×2 (02:23→15:22)
[2016-11-26 06:09] LABS: BASO % 0.1 %; BASO ABS # 0.01 K/uL (0-0.2); COMPLETE YES; EOS % 1.8 %; HEMATOCRIT 42.3 % (37-47); IG% 0.3 %; LYMPH % 11.7 %; MEAN CELL VOLUME 92.4 fL (80-100); MEAN CORPUSCULAR HEMOGLOBIN 27.3 pg (25-34); MEAN CORPUSCULAR HGB CONC 29.6 g/dl (32-36); MEAN PLATELET VOLUME 9.5 fL (7.4-10.4); MONO % 11.6 %; NEUT % 74.5 %; PLATELET COUNT 187 K/uL (130-400); RED BLOOD COUNT 4.58 M/uL (4.2-5.4); WHITE BLOOD COUNT 7.66 K/uL (4.8-10.8)
[2016-11-26 06:58] LABS: ALB/GLOB RATIO 0.9 (0.9-2); BUN/CREATININE RATIO 14.5 (10-20); CALCIUM 9.5 mg/dl (8.5-10.1); CREATININE 0.7 mg/dl (0.60-1.20); POTASSIUM 3.1 mmol/L (3.5-5.1)
[2016-11-26 07:33] VITALS: BP 111/71; PULSE 87; TEMP 36.6; O2SAT 99
[2016-11-26] MEDS: IPRATROPIUM BROMIDE/ALBUTEROL respimat INH INH SCH ×4 (08:34→20:55)
[2016-11-26] MEDS: MAGNESIUM OXIDE 400 MG TAB PO SCH (08:34)
[2016-11-26] MEDS: LACTULOSE SYRUP 30 GM/45 ML UDP PO SCH ×3 (08:34→20:54)
[2016-11-26] MEDS: LEVETIRACETAM 500 MG TAB PO SCH ×2 (08:35→20:59)
[2016-11-26] MEDS: POTASSIUM CHLORIDE 20 MEQ TABCR PO SCH ×2 (08:35→20:57)
[2016-11-26] MEDS: LITHIUM CARBONATE 300 MG TAB PO SCH ×2 (08:35→13:16)
[2016-11-26] MEDS: LISINOPRIL 5 MG TAB PO SCH (08:36)
[2016-11-26] MEDS: METOLAZONE 5 MG TAB PO SCH (08:36)
[2016-11-26] MEDS: FUROSEMIDE 80 MG TAB PO SCH ×2 (08:36→17:23)
[2016-11-26] MEDS: NYSTATIN CR 15 GM TUBE EXT SCH ×2 (08:37→20:59)
[2016-11-26] MEDS: ENOXAPARIN 40 MG/0.4 ML SYR SC SCH (08:37)
[2016-11-26] MEDS: INSULIN ASPART 100 UNITS/ML 3 ML PEN SC SCH ×4 (08:40→21:00)
[2016-11-26] MEDS ORDERED: NURSING VERBAL MED ORDER ONE (09:30)
[2016-11-26] MEDS ORDERED: POTASSIUM CHLORIDE 20 MEQ TABCR PO ONE (09:45)
[2016-11-26 14:55] VITALS: BP 110/75; PULSE 91; TEMP 36.8; O2SAT 97
[2016-11-26 15:14] VITALS: BP 110/75; PULSE 71; O2SAT 97
--- NOTE | 2016-11-26 16:05 | Family Medicine Progress Note ---
Progress Note Date of Service Nov 26, 2016. Subjective Pt evaluation today including: conversation w/ patient, conversation w/ family , physical exam Cosby really well today, and wanted to go home. No further episodes of leg weakness. No chest pain or shortness of breath. She cannot move her left arm however due to frozen shoulder. She refuses to go to rehab but we strongly suggested she go to inpatient rehab for her shoulder, or it will be more difficult to do things back home. Additional Comments: ROS negative unless noted in HPI. Medications Current Inpatient Medications Medications (Trade) Dose Ordered Sig/Nanette Route Start Time Stop Time Status Last Admin Dose Admin Sodium Chloride 1,000 ml @ 75 mls/hr [id number] IV 11/24/16 23:45 12/24/16 23:44 11/26/16 15:22 75 MLS/HR Acetaminophen (Tylenol Tab) 650 mg Q4H PRN PO 11/24/16 22:30 12/24/16 22:29 11/26/16 11:00 650 MG Ondansetron HCl (Zofran Inj) 4 mg Q6H PRN IV 11/24/16 22:30 12/24/16 22:29 Polyethylene (Miralax Powder Packet) 17 gm DAILY PRN PO 11/24/16 22:30 12/24/16 22:29 Enoxaparin Sodium (Lovenox Inj) 40 mg Q24H SC 11/25/16 09:00 12/25/16 08:59 11/26/16 08:37 40 MG Furosemide (Lasix Tab) 80 mg BID17 PO 11/25/16 09:00 12/25/16 08:59 11/26/16 08:36 80 MG Albuterol/ Ipratropium (Combivent Respimat Inh) 1 puffs QID INH 11/25/16 09:00 12/25/16 08:59 11/26/16 13:16 1 PUFFS Levetiracetam (Keppra Tab) 500 mg BID PO 11/25/16 09:00 12/25/16 08:59 11/26/16 08:35 500 MG Lisinopril (Zestril Tab) 5 mg QAM PO 11/25/16 09:00 12/25/16 08:59 11/26/16 08:36 5 MG [place] Carbonate (Lithobid Tab) 600 mg HS PO 11/25/16 21:00 12/25/16 20:59 11/25/16 20:57 600 MG Magnesium Oxide (Mag-Ox Tab) 400 mg QAM PO 11/25/16 09:00 12/25/16 08:59 11/26/16 08:34 400 MG Metolazone (Zaroxolyn Tab) 5 mg DAILY PO 11/25/16 09:00 12/25/16 08:59 11/26/16 08:36 5 MG Nystatin (Mycostatin Crm) 1 appln BID EXT 11/25/16 09:00 12/25/16 08:59 11/26/16 08:37 1 APPLN Potassium Chloride (Klor-Con Tab) 60 meq QAM PO 11/25/16 09:00 12/25/16 08:59 11/26/16 08:35 60 MEQ Miscellaneous Information (Order Awaiting Action) 1 ea QS N/A 11/25/16 08:00 12/25/16 07:59 Insulin Aspart (novoLOG ASPART) SLIDING SCALE G... ACHS SC 11/25/16 07:00 12/25/16 06:59 11/26/16 13:24 9 UNITS Miscellaneous (Iv Fluids Completed) 1 ea PRN PRN N/A 11/24/16 23:45 11/24/17 23:44 Glucose (Glucose 40% Gel) 15-30 GRAMS 15 GRAMS... UD PRN PO 11/24/16 23:45 12/24/16 23:44 Glucose (Glucose Chew Tab) 4-8 Tablets 4 Tabl... UD PRN PO 11/24/16 23:45 12/24/16 23:44 Dextrose (Dextrose 50% 50ML Syringe) 25-50ML OF 50% DW IV FOR... UD PRN IV 11/24/16 23:45 12/24/16 23:44 Glucagon (Glucagon Inj) 1 mg UD PRN SQ 11/24/16 23:45 12/24/16 23:44 Lactulose (Chronulac Syrup) 30 gm TID PO 11/25/16 00:39 12/25/16 00:38 11/26/16 13:16 30 GM Potassium Chloride (Klor-Con Tab) 40 meq PM PO 11/25/16 21:00 12/25/16 20:59 11/25/16 20:56 40 MEQ [place] Carbonate ([place] Carbonate Tab) 300 mg BID@0900,1400 PO 11/25/16 09:00 12/25/16 08:59 11/26/16 13:16 300 MG Diclofenac Sodium (Voltaren 1% Top Gel) 1 appln Q6 EXT 11/25/16 12:00 12/25/16 11:59 11/26/16 13:16 1 APPLN Objective Vital Signs Date Time Temp Pulse Resp B/P (MAP) Pulse Ox O2 Delivery O2 Flow Rate FiO2 11/26/16 15:14 71 97 11/26/16 14:55 36.8 91 110/75 (87) 97 11/26/16 08:00 Room Air 11/26/16 07:33 36.6 87 20 111/71 (84) 99 11/26/16 00:00 Room Air 11/25/16 23:34 36.7 92 18 112/73 (86) 96 Nasal Cannula 2.0 11/25/16 16:15 95 Nasal Cannula 2.0 Physical Exam General Appearance: WD/WN, no apparent distress Eyes: normal inspection, PERRL ENT: hearing grossly normal Neck: supple, no JVD Respiratory/Chest: lungs clear, normal breath sounds, no respiratory distress Cardiovascular: regular rate, rhythm, no murmur Abdomen: normal bowel sounds, non tender, soft Extremities: non-tender, no pedal edema 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: alert, normal mood/affect, oriented x 3 Skin: no rash Laboratory Results Last 24 Hours Test 11/25/16 16:44 11/25/16 20:17 11/26/16 05:48 11/26/16 07:36 Bedside Glucose 90 mg/dl 209 mg/dl 146 mg/dl White Blood Count 7.66 K/uL Red Blood Count 4.58 M/uL Hemoglobin 12.5 g/dL Hematocrit 42.3 % Mean Corpuscular Volume 92.4 fL Mean Corpuscular Hemoglobin 27.3 pg Mean Corpuscular Hemoglobin Concent 29.6 g/dl Platelet Count 187 K/uL Mean Platelet Volume 9.5 fL Neutrophils (%) (Auto) 74.5 % Lymphocytes (%) (Auto) 11.7 % Monocytes (%) (Auto) 11.6 % Eosinophils (%) (Auto) 1.8 % Basophils (%) (Auto) 0.1 % Neutrophils # (Auto) 5.70 K/uL Lymphocytes # (Auto) 0.90 K/uL Monocytes # (Auto) 0.89 K/uL Eosinophils # (Auto) 0.14 K/uL Basophils # (Auto) 0.01 K/uL RDW Standard Deviation 50.4 fL RDW Coefficient of Variation 14.9 % Immature Granulocyte % (Auto) 0.3 % Immature Granulocyte # (Auto) 0.02 K/uL Sodium Level 133 mmol/L Potassium Level 3.1 mmol/L Chloride Level 87 mmol/L Carbon Dioxide Level 41 mmol/L Anion Gap 4.0 mmol/L Blood Urea Nitrogen 10 mg/dl Creatinine 0.70 mg/dl Est Creatinine Clear Calc Drug Dose 95.2 ml/min Estimated GFR () 108.4 Estimated GFR (Non- 93.5 BUN/Creatinine Ratio 14.5 Random Glucose 155 mg/dl Calcium Level 9.5 mg/dl Total Bilirubin 0.7 mg/dl Aspartate Amino Transf (AST/SGOT) 24 U/L Alanine Aminotransferase (ALT/SGPT) 20 U/L Alkaline Phosphatase 58 U/L Total Protein 7.4 gm/dl Albumin 3.4 gm/dl Globulin 4.0 gm/dl Albumin/Globulin Ratio 0.9 Test 11/26/16 11:15 Bedside Glucose 248 mg/dl Assessment and Plan 61 yo F presents with weakness - ruled out stroke, other ddx includes vasovagal / dehydration, has not recurred. Other active issue includes L shoulder pain. Near-syncopal event, resolved PT/OT/Speech CT head and MRI brain completed to rule out stroke Neuro following Left frozen shoulder Will significantly affect her ability to rehab at home, plus will be dangerous if she falls and only her is available to help Hyperammonemia, near baseline Trend Ammonia level at 95 Lactulose 30 mg 3 times a day Gastroenterology consult Chronic hyponatremia Sodium at 129 Continue IV fluids Diabetes nsulin sliding scale CHF Currently euvolemic Continue Lasix, metolazone Daily weights with strict I's and O's Echo: 12/26: * 1. Mildly dilated left ventricle with low-normal systolic function. EF 50-55 %. No regional wall motion abnormalities. No significant left ventricular hypertrophy. Type 1 diastolic dysfunction. Septal flattening consistent with RV volume overload. 2. Severely dilated right ventricle with visually mildly reduced systolic function. 3. The left atrium is mildly dilated. 4. The right atrium is moderately dilated. 5. Probably moderate to severe tricuspid regurgitation. 6. Mild pulmonary hypertension suggested; estimated RVSP 43 mmHg. 7. Compared to prior study on 01/05/2015, LV systolic function is now low normal and estimated RVSP has improved. Bipolar disorder - Continue home meds - Chamberino level within range Full code DVT prophylaxis: Heparin q8h Disposition: Transfer to Med/Surg Will discuss discharge destination again w/patient Resident Physician Supervision Note: I interviewed and examined the patient. Discussed with Dr. Romero and agree with findings and plan as documented in the note. Any exceptions or clarifications are listed here: None Documented By: Jeremiah Lewis feeling about the same. doesn't want to go to rehab. Kaley reilly pain about the same. d/w - he's VERY worried about her going home in current state , agrees she can be stubborn, but currently feels that [facility] would be far better fit than home. ROS otherwise negative except for as above vitals noted nad breathing unlabored no pallor or icterus weakness/frozen shoulder - represents HUGE fall risk at home right now since needs walker still would benefit from rehab even wtih walker but can't really use walker properly due to frozen shoulder. will readdress w pt tomorrow w present and hopefully get her to understand severity of risk going home in current state. otherwise as above Resident Tracking Resident Involvement: Resident Care Provided Care Provided: Adult Hospital Medicine
--- NOTE | 2016-11-26 17:44 | Medical Student: [facility] ---
Med Student Progress Note Date of Service Nov 26, 2016. Subjective Pt evaluation today including: conversation w/ patient, physical exam, chart review, lab review Pain: Lt arm with movement: 10/10 Voiding: no voiding problems, no incontinence Patient reports she is feeling better. She has been up and walking with nursing staff and PT and has had no repeat episode of shaking or weakness. She does say the pain in her arm has not changed, rates it a 10/10 pain with movement, no pain at rest, and tenderness to palpation over shoulder and proximal upper extremity. She denies any SOB, tachycardia, palpitations with walking or at rest. Denies fever, chills, nausea, vomiting, constipation, or diarrhea. Patient states she would like to go home Review of Systems Constitutional: No fever, No chills, No sweats, No weakness, No fatigue Respiratory: No shortness of breath, No dyspnea on exertion, No dyspnea at rest Cardiac: No chest pain, No edema, No palpitations, No problem reported Abdomen: No pain, No nausea, No vomiting, No diarrhea, No constipation Musculoskeletal: + joint pain (Lt shoulder), + muscle pain (LT proximal upper extrmity) Female : + see HPI Neurologic: No weakness, No numbness/tingling, No balance problems (does use walker for mobility, currently unable to do so with arm pain) All Other Systems: Reviewed and Negative Objective Vital Signs Date Time Temp Pulse Resp B/P (MAP) Pulse Ox O2 Delivery O2 Flow Rate FiO2 11/26/16 16:00 Nasal Cannula 2.0 11/26/16 15:14 71 97 11/26/16 14:55 36.8 91 110/75 (87) 97 11/26/16 08:00 Nasal Cannula 2.0 11/26/16 07:33 36.6 87 20 111/71 (84) 99 11/26/16 00:00 Room Air 11/25/16 23:34 36.7 92 18 112/73 (86) 96 Nasal Cannula 2.0 Physical Exam General Appearance: WD/WN, no apparent distress, + obese Respiratory/Chest: chest non-tender, lungs clear, normal breath sounds ( slightly deminished, no change), no respiratory distress, no accessory muscle use Cardiovascular: regular rate, rhythm, no edema, no gallop, no JVD, no murmur Abdomen: non tender, soft, + hernia Extremities: normal inspection, normal capillary refill, + pertinent finding ( Extreme gaurding LT arm, unable to move shoulder or elbow. Normal ROM at wrist and digits) 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: no motor/sensory deficits, alert, normal mood/affect, oriented x 3 Skin: normal color, warm/dry, no rash Comments: Patient evaluated by PT who recommended she go to a rehabilitation center following discharge. She is unable to move freely, requires large amounts of assistence for ambulation, and is unable to use her walker at this time due to significant LT are pain and movement restriction. Patient is refusing rehab at this time Laboratory Results Last 24 Hours Test 11/25/16 20:17 11/26/16 05:48 11/26/16 07:36 11/26/16 11:15 Bedside Glucose 209 mg/dl 146 mg/dl 248 mg/dl White Blood Count 7.66 K/uL Red Blood Count 4.58 M/uL Hemoglobin 12.5 g/dL Hematocrit 42.3 % Mean Corpuscular Volume 92.4 fL Mean Corpuscular Hemoglobin 27.3 pg Mean Corpuscular Hemoglobin Concent 29.6 g/dl Platelet Count 187 K/uL Mean Platelet Volume 9.5 fL Neutrophils (%) (Auto) 74.5 % Lymphocytes (%) (Auto) 11.7 % Monocytes (%) (Auto) 11.6 % Eosinophils (%) (Auto) 1.8 % Basophils (%) (Auto) 0.1 % Neutrophils # (Auto) 5.70 K/uL Lymphocytes # (Auto) 0.90 K/uL Monocytes # (Auto) 0.89 K/uL Eosinophils # (Auto) 0.14 K/uL Basophils # (Auto) 0.01 K/uL RDW Standard Deviation 50.4 fL RDW Coefficient of Variation 14.9 % Immature Granulocyte % (Auto) 0.3 % Immature Granulocyte # (Auto) 0.02 K/uL Sodium Level 133 mmol/L Potassium Level 3.1 mmol/L Chloride Level 87 mmol/L Carbon Dioxide Level 41 mmol/L Anion Gap 4.0 mmol/L Blood Urea Nitrogen 10 mg/dl Creatinine 0.70 mg/dl Est Creatinine Clear Calc Drug Dose 95.2 ml/min Estimated GFR () 108.4 Estimated GFR (Non- 93.5 BUN/Creatinine Ratio 14.5 Random Glucose 155 mg/dl Calcium Level 9.5 mg/dl Total Bilirubin 0.7 mg/dl Aspartate Amino Transf (AST/SGOT) 24 U/L Alanine Aminotransferase (ALT/SGPT) 20 U/L Alkaline Phosphatase 58 U/L Total Protein 7.4 gm/dl Albumin 3.4 gm/dl Globulin 4.0 gm/dl Albumin/Globulin Ratio 0.9 Test 11/26/16 16:26 Bedside Glucose 111 mg/dl Medications Current Inpatient Medications Medications (Trade) Dose Ordered Sig/Nanette Route Start Time Stop Time Status Last Admin Dose Admin Sodium Chloride 1,000 ml @ 75 mls/hr [id number] IV 11/24/16 23:45 12/24/16 23:44 11/26/16 15:22 75 MLS/HR Acetaminophen (Tylenol Tab) 650 mg Q4H PRN PO 11/24/16 22:30 12/24/16 22:29 11/26/16 16:02 650 MG Ondansetron HCl (Zofran Inj) 4 mg Q6H PRN IV 11/24/16 22:30 12/24/16 22:29 Polyethylene (Miralax Powder Packet) 17 gm DAILY PRN PO 11/24/16 22:30 12/24/16 22:29 Enoxaparin Sodium (Lovenox Inj) 40 mg Q24H SC 11/25/16 09:00 12/25/16 08:59 11/26/16 08:37 40 MG Furosemide (Lasix Tab) 80 mg BID17 PO 11/25/16 09:00 12/25/16 08:59 11/26/16 17:23 80 MG Albuterol/ Ipratropium (Combivent Respimat Inh) 1 puffs QID INH 11/25/16 09:00 12/25/16 08:59 11/26/16 17:23 1 PUFFS Levetiracetam (Keppra Tab) 500 mg BID PO 11/25/16 09:00 12/25/16 08:59 11/26/16 08:35 500 MG Lisinopril (Zestril Tab) 5 mg QAM PO 11/25/16 09:00 12/25/16 08:59 11/26/16 08:36 5 MG [place] Carbonate (Lithobid Tab) 600 mg HS PO 11/25/16 21:00 12/25/16 20:59 11/25/16 20:57 600 MG Magnesium Oxide (Mag-Ox Tab) 400 mg QAM PO 11/25/16 09:00 12/25/16 08:59 11/26/16 08:34 400 MG Metolazone (Zaroxolyn Tab) 5 mg DAILY PO 11/25/16 09:00 12/25/16 08:59 11/26/16 08:36 5 MG Nystatin (Mycostatin Crm) 1 appln BID EXT 11/25/16 09:00 12/25/16 08:59 11/26/16 08:37 1 APPLN Potassium Chloride (Klor-Con Tab) 60 meq QAM PO 11/25/16 09:00 12/25/16 08:59 11/26/16 08:35 60 MEQ Miscellaneous Information (Order Awaiting Action) 1 ea QS N/A 11/25/16 08:00 12/25/16 07:59 Insulin Aspart (novoLOG ASPART) SLIDING SCALE G... ACHS SC 11/25/16 07:00 12/25/16 06:59 11/26/16 17:26 4 UNITS Miscellaneous (Iv Fluids Completed) 1 ea PRN PRN N/A 11/24/16 23:45 11/24/17 23:44 Glucose (Glucose 40% Gel) 15-30 GRAMS 15 GRAMS... UD PRN PO 11/24/16 23:45 12/24/16 23:44 Glucose (Glucose Chew Tab) 4-8 Tablets 4 Tabl... UD PRN PO 11/24/16 23:45 12/24/16 23:44 Dextrose (Dextrose 50% 50ML Syringe) 25-50ML OF 50% DW IV FOR... UD PRN IV 11/24/16 23:45 12/24/16 23:44 Glucagon (Glucagon Inj) 1 mg UD PRN SQ 11/24/16 23:45 12/24/16 23:44 Lactulose (Chronulac Syrup) 30 gm TID PO 11/25/16 00:39 12/25/16 00:38 11/26/16 13:16 30 GM Potassium Chloride (Klor-Con Tab) 40 meq PM PO 11/25/16 21:00 12/25/16 20:59 11/25/16 20:56 40 MEQ [place] Carbonate ([place] Carbonate Tab) 300 mg BID@0900,1400 PO 11/25/16 09:00 12/25/16 08:59 11/26/16 13:16 300 MG Diclofenac Sodium (Voltaren 1% Top Gel) 1 appln Q6 EXT 11/25/16 12:00 12/25/16 11:59 11/26/16 17:23 1 APPLN Assessment and Plan Assessment and Plan: At this time, although patient has significantly improved since admission, it is not safe for her to be discharged home. With the level of assistance she requires for basic daily requirements, she is highly likely to fall if discharged home. When arrives, further discussion of a brief rehab stay is necessary. Impaired mobility - Assess movement in hospital room with assistance present to prevent falls as patient performs daily task as she would at home with - [facility] subject Continued [facility] stay due to: ambulation difficulties (significant fall risk if D /C home) Discharge planning: rehab hospital
[2016-11-26] MEDS: LITHIUM CARBONATE SR 300 MG TAB (LITHOBID) PO SCH (20:58)
[2016-11-27 00:14] VITALS: BP 111/71; PULSE 87; TEMP 36.6; O2SAT 99
[2016-11-27] MEDS: ACETAMINOPHEN 325 MG TAB PO PRN ×3 (01:58→17:52)
[2016-11-27 04:21] LABS: BASO % 0.1 %; BASO ABS # 0.01 K/uL (0-0.2); COMPLETE YES; EOS % 1.5 %; HEMATOCRIT 38.9 % (37-47); IG% 0.1 %; LYMPH % 13.2 %; LYMPH ABS # 0.94 K/uL (1.2-3.4); MEAN CELL VOLUME 91.3 fL (80-100); MEAN CORPUSCULAR HEMOGLOBIN 27.7 pg (25-34); MEAN CORPUSCULAR HGB CONC 30.3 g/dl (32-36); MEAN PLATELET VOLUME 9.8 fL (7.4-10.4); MONO % 11.7 %; NEUT % 73.4 %; PLATELET COUNT 162 K/uL (130-400); RED BLOOD COUNT 4.26 M/uL (4.2-5.4); WHITE BLOOD COUNT 7.12 K/uL (4.8-10.8)
[2016-11-27 04:57] LABS: CALCIUM 9.2 mg/dl (8.5-10.1); CREATININE 0.91 mg/dl (0.60-1.20); POTASSIUM 3.2 mmol/L (3.5-5.1)
[2016-11-27] MEDS: SODIUM CHLORIDE 0.9% 1000ML 1,000 ML IV SCH (05:01)
[2016-11-27 05:31] LABS: ALB/GLOB RATIO 0.8 (0.9-2)
[2016-11-27] MEDS: DICLOFENAC SOD 1% GEL 100 GM TUBE EXT SCH ×4 (06:02→17:51)
[2016-11-27 07:41] VITALS: BP 110/75; PULSE 81; TEMP 36.7; O2SAT 98
[2016-11-27 08:00] VITALS: O2SAT 98
[2016-11-27] MEDS ORDERED: POTASSIUM CHLORIDE 10 MEQ TABCR PO ONE (09:00)
[2016-11-27] MEDS: IPRATROPIUM BROMIDE/ALBUTEROL respimat INH INH SCH ×4 (10:28→20:55)
[2016-11-27] MEDS: LACTULOSE SYRUP 30 GM/45 ML UDP PO SCH ×3 (10:29→20:55)
[2016-11-27] MEDS: LEVETIRACETAM 500 MG TAB PO SCH ×2 (10:30→20:58)
[2016-11-27] MEDS: POTASSIUM CHLORIDE 20 MEQ TABCR PO SCH ×2 (10:34→20:57)
[2016-11-27] MEDS: MAGNESIUM OXIDE 400 MG TAB PO SCH (10:35)
[2016-11-27] MEDS: INSULIN GLARGINE SOLOSTAR 100 UNITS/ML 3 ML PEN SC SCH (10:39)
[2016-11-27 10:40] VITALS: BP 115/72; PULSE 86
[2016-11-27] MEDS: METOLAZONE 5 MG TAB PO SCH (10:46)
[2016-11-27] MEDS: FUROSEMIDE 80 MG TAB PO SCH ×2 (10:47→17:58)
[2016-11-27] MEDS: LISINOPRIL 5 MG TAB PO SCH (10:47)
[2016-11-27] MEDS: LITHIUM CARBONATE 300 MG TAB PO SCH ×2 (10:48→15:01)
[2016-11-27] MEDS: ENOXAPARIN 40 MG/0.4 ML SYR SC SCH (10:50)
[2016-11-27] MEDS: NYSTATIN CR 15 GM TUBE EXT SCH ×2 (10:51→20:55)
[2016-11-27] MEDS: INSULIN ASPART 100 UNITS/ML 3 ML PEN SC SCH ×4 (11:08→20:58)
[2016-11-27 15:16] VITALS: BP 102/67; PULSE 84; TEMP 36.6; O2SAT 97
--- NOTE | 2016-11-27 16:51 | Progress Note ---
Subjective Date of Service: Nov 27, 2016. Subjective Pt evaluation today including: conversation w/ patient, conversation w/ family , physical exam, chart review, lab review, review of inpatient medication list feeling about the same - tired today too. shoulder feels the same. no other new complaints. present. updated extensively - he offered appreciation of care and plans. she is willing to go to rehab. Problem List Medical Problems: (1) Change in mental status Status: Acute (2) CHF (congestive heart failure) Status: Acute (3) CHF (congestive heart failure) Status: Acute (4) CO2 retention Status: Acute (5) Fall Status: Acute (6) Hyperammonemia Status: Acute (7) Hyperammonemia Status: Acute (8) Hypercarbia Status: Acute (9) Hyperglycemia Status: Acute (10) Hypokalemia Status: Acute (11) Hyponatremia Status: Acute (12) Hyponatremia Status: Acute (13) Hyponatremia Status: Acute (14) Lower extremity weakness Status: Acute (15) Seizure Status: Acute (16) SOB (shortness of breath) Status: Acute (17) Weakness Status: Acute Review of Systems ROS otherwise negative except for as above Objective Vital Signs Date Time Temp Pulse Resp B/P (MAP) Pulse Ox O2 Delivery O2 Flow Rate FiO2 11/27/16 15:16 36.6 84 20 102/67 (79) 97 2.0 11/27/16 10:40 86 115/72 (86) 11/27/16 08:00 98 Nasal Cannula 2.0 11/27/16 07:41 36.7 81 18 110/75 (87) 98 Nasal Cannula 2.0 11/27/16 00:14 36.6 87 20 111/71 (84) 99 Room Air 11/27/16 00:00 Nasal Cannula 2.0 11/26/16 20:00 Nasal Cannula 2.0 Physical Exam General Appearance: no apparent distress Eyes: EOMI ENT: hearing grossly normal Neck: trachea midline Respiratory/Chest: no respiratory distress, no accessory muscle use Extremities: + pertinent finding (painful in any ROM whether active or passive as before. 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, alert, normal mood/affect Skin: normal color Laboratory Results Last 24 Hours Test 11/26/16 20:16 11/27/16 04:05 11/27/16 08:03 11/27/16 09:43 Bedside Glucose 160 mg/dl 203 mg/dl 178 mg/dl White Blood Count 7.12 K/uL Red Blood Count 4.26 M/uL Hemoglobin 11.8 g/dL Hematocrit 38.9 % Mean Corpuscular Volume 91.3 fL Mean Corpuscular Hemoglobin 27.7 pg Mean Corpuscular Hemoglobin Concent 30.3 g/dl Platelet Count 162 K/uL Mean Platelet Volume 9.8 fL Neutrophils (%) (Auto) 73.4 % Lymphocytes (%) (Auto) 13.2 % Monocytes (%) (Auto) 11.7 % Eosinophils (%) (Auto) 1.5 % Basophils (%) (Auto) 0.1 % Neutrophils # (Auto) 5.22 K/uL Lymphocytes # (Auto) 0.94 K/uL Monocytes # (Auto) 0.83 K/uL Eosinophils # (Auto) 0.11 K/uL Basophils # (Auto) 0.01 K/uL RDW Standard Deviation 50.4 fL RDW Coefficient of Variation 14.9 % Immature Granulocyte % (Auto) 0.1 % Immature Granulocyte # (Auto) 0.01 K/uL Sodium Level 130 mmol/L Potassium Level 3.2 mmol/L Chloride Level 86 mmol/L Carbon Dioxide Level 42 mmol/L Anion Gap 2.0 mmol/L Blood Urea Nitrogen 13 mg/dl Creatinine 0.91 mg/dl Est Creatinine Clear Calc Drug Dose 73.2 ml/min Estimated GFR () 78.9 Estimated GFR (Non- 68.1 BUN/Creatinine Ratio 14.0 Random Glucose 298 mg/dl Calcium Level 9.2 mg/dl Total Bilirubin 0.5 mg/dl Aspartate Amino Transf (AST/SGOT) 26 U/L Alanine Aminotransferase (ALT/SGPT) 20 U/L Alkaline Phosphatase 57 U/L Total Protein 7.0 gm/dl Albumin 3.1 gm/dl Globulin 3.9 gm/dl Albumin/Globulin Ratio 0.8 Chemistry Specimen Hemolysis Test 11/27/16 11:49 11/27/16 15:35 Bedside Glucose 223 mg/dl 236 mg/dl Assessment and Plan 61 yo F presents with weakness - ruled out stroke, other ddx includes vasovagal / dehydration, has not recurred. Other active issue includes L shoulder pain. Near-syncopal event, resolved PT/OT/Speech CT head and MRI brain completed to rule out stroke appearing likely to have been due to volume depletion Left frozen shoulder Will significantly affect her ability to rehab at home, plus will be dangerous if she falls and only her is available to help continue voltaren gel, continue supportive care, continue PT/OT, ortho to see ?? would injection help Hyperammonemia, near baseline Lactulose 30 mg 3 times a day Chronic hyponatremia overall stable continue to follow Diabetes uncontrolled continue carb ratio, add 5 lantus CHF Currently euvolemic, stable, no signs of decompensation Continue Lasix, metolazone Daily weights with strict I's and O's Echo: 12/26: * 1. Mildly dilated left ventricle with low-normal systolic function. EF 50-55 %. No regional wall motion abnormalities. No significant left ventricular hypertrophy. Type 1 diastolic dysfunction. Septal flattening consistent with RV volume overload. 2. Severely dilated right ventricle with visually mildly reduced systolic function. 3. The left atrium is mildly dilated. 4. The right atrium is moderately dilated. 5. Probably moderate to severe tricuspid regurgitation. 6. Mild pulmonary hypertension suggested; estimated RVSP 43 mmHg. 7. Compared to prior study on 01/05/2015, LV systolic function is now low normal and estimated RVSP has improved. Bipolar disorder - Continue home meds - [place] level within range Full code DVT prophylaxis: Heparin q8h needs rehab - she is now willing. [facility]SR referral Continued [facility] stay due to: ambulation difficulties (significant fall risk if D /C home) Discharge planning: rehab hospital
[2016-11-27 18:02] VITALS: BP 118/76; PULSE 83
[2016-11-27] MEDS: LITHIUM CARBONATE SR 300 MG TAB (LITHOBID) PO SCH (20:56)
[2016-11-28 01:19] VITALS: BP 109/69; PULSE 79; TEMP 36.8; O2SAT 97
[2016-11-28] MEDS: DICLOFENAC SOD 1% GEL 100 GM TUBE EXT SCH ×4 (01:30→17:47)
[2016-11-28] MEDS: ACETAMINOPHEN 325 MG TAB PO PRN ×3 (05:18→18:20)
[2016-11-28 07:29] VITALS: BP 144/82; PULSE 94; TEMP 36.8; O2SAT 94
[2016-11-28] MEDS ORDERED: HALOPERIDOL DECANOATE 50 MG/ML IM SCH (08:00)
[2016-11-28] MEDS: NYSTATIN CR 15 GM TUBE EXT SCH ×2 (08:31→20:48)
[2016-11-28] MEDS: IPRATROPIUM BROMIDE/ALBUTEROL respimat INH INH SCH ×4 (08:31→20:48)
[2016-11-28] MEDS: METOLAZONE 5 MG TAB PO SCH (08:32)
[2016-11-28] MEDS: LACTULOSE SYRUP 30 GM/45 ML UDP PO SCH ×3 (08:32→20:47)
[2016-11-28] MEDS: FUROSEMIDE 80 MG TAB PO SCH ×2 (08:33→17:48)
[2016-11-28] MEDS: MAGNESIUM OXIDE 400 MG TAB PO SCH (08:33)
[2016-11-28] MEDS: LEVETIRACETAM 500 MG TAB PO SCH ×2 (08:34→20:49)
[2016-11-28] MEDS: POTASSIUM CHLORIDE 20 MEQ TABCR PO SCH ×2 (08:34→20:46)
[2016-11-28] MEDS: LISINOPRIL 5 MG TAB PO SCH (08:35)
[2016-11-28] MEDS: LITHIUM CARBONATE 300 MG TAB PO SCH ×2 (08:35→13:41)
[2016-11-28] MEDS: ENOXAPARIN 40 MG/0.4 ML SYR SC SCH (08:36)
[2016-11-28] MEDS: INSULIN GLARGINE SOLOSTAR 100 UNITS/ML 3 ML PEN SC SCH (08:40)
[2016-11-28] MEDS: INSULIN ASPART 100 UNITS/ML 3 ML PEN SC SCH ×4 (08:40→20:50)
[2016-11-28] MEDS ORDERED: NITROFURANTOIN MONOHYDRATE 100 MG CAP PO ONE (09:00)
--- NOTE | 2016-11-28 10:38 | DIAGNOSTIC IMAGING REPORT ---
LEFT SHOULDER 3 VIEWS HISTORY: increased Shoulder pain COMPARISON: None. FINDINGS: There is no fracture or dislocation. Soft tissues are unremarkable. No radiopaque foreign bodies. IMPRESSION: No fractures. Electronically signed by: Alfonso Perez M.D. 11/28/2016 10:37 AM Dictated Date/Time: 11/28/2016 10:33 AM
[2016-11-28 15:33] VITALS: BP 114/72; PULSE 86; TEMP 36.6; O2SAT 96
--- NOTE | 2016-11-28 15:55 | Progress Note ---
Subjective Date of Service: Nov 28, 2016. Subjective Pt evaluation today including: conversation w/ patient, conversation w/ family , physical exam, chart review, lab review, review of inpatient medication list doing about pipe same overall but ntoes that shoulder maybe feeling a little better. arm swelling about the same. weakness maybe a little better. waiting on approval for rehab. d/w . pt seen by ortho, xrays, no new recommendations noted otherwise (awaiting formal consult report at this time) had haldol - outpatient chart reviewed, appears that per dr castro's records she takes 100mg IM - additional 50mg ordered; d/w he doesn't seem to know exact dose either but agrees that higher dose fits with what he remembers her taking Problem List Medical Problems: (1) Change in mental status Status: Acute (2) CHF (congestive heart failure) Status: Acute (3) CHF (congestive heart failure) Status: Acute (4) CO2 retention Status: Acute (5) Fall Status: Acute (6) Hyperammonemia Status: Acute (7) Hyperammonemia Status: Acute (8) Hypercarbia Status: Acute (9) Hyperglycemia Status: Acute (10) Hypokalemia Status: Acute (11) Hyponatremia Status: Acute (12) Hyponatremia Status: Acute (13) Hyponatremia Status: Acute (14) Lower extremity weakness Status: Acute (15) Seizure Status: Acute (16) SOB (shortness of breath) Status: Acute (17) Weakness Status: Acute Review of Systems ROS otherwise negative except for as above Objective Vital Signs Date Time Temp Pulse Resp B/P (MAP) Pulse Ox O2 Delivery O2 Flow Rate FiO2 11/28/16 15:33 36.6 86 18 114/72 (86) 96 Nasal Cannula 2.0 11/28/16 08:00 Nasal Cannula 2.0 11/28/16 07:29 36.8 94 16 144/82 (102) 94 Room Air 11/28/16 01:19 36.8 79 18 109/69 (82) 97 2.0 11/27/16 23:59 Nasal Cannula 2.0 11/27/16 20:00 Nasal Cannula 2.0 11/27/16 18:55 Nasal Cannula 2.0 11/27/16 18:02 83 118/76 (90) Physical Exam General Appearance: no apparent distress Eyes: EOMI ENT: hearing grossly normal Neck: trachea midline Respiratory/Chest: no respiratory distress, no accessory muscle use 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 Other active issue includes L shoulder pain. Near-syncopal event, resolved PT/OT/Speech CT head and MRI brain completed to rule out stroke appearing likely to have been due to volume depletion Left frozen shoulder Will significantly affect her ability to rehab at home, plus will be dangerous if she falls and only her is available to help continue voltaren gel, continue supportive care, continue PT/OT, ortho input Hyperammonemia, near baseline Lactulose 30 mg 3 times a day Chronic hyponatremia overall stable continue to follow periodically Diabetes uncontrolled continue carb ratio, add 5 lantus CHF Currently euvolemic, stable, no signs of decompensation Continue Lasix, metolazone Daily weights with strict I's and O's Echo: 12/26: * 1. Mildly dilated left ventricle with low-normal systolic function. EF 50-55 %. No regional wall motion abnormalities. No significant left ventricular hypertrophy. Type 1 diastolic dysfunction. Septal flattening consistent with RV volume overload. 2. Severely dilated right ventricle with visually mildly reduced systolic function. 3. The left atrium is mildly dilated. 4. The right atrium is moderately dilated. 5. Probably moderate to severe tricuspid regurgitation. 6. Mild pulmonary hypertension suggested; estimated RVSP 43 mmHg. 7. Compared to prior study on 01/05/2015, LV systolic function is now low normal and estimated RVSP has improved. Bipolar disorder - Continue home meds - [place] level within range -haldol IM given - was due 11/29 - and i discussed --> with transition to [facility] likely on 11/29 gave 1 day early to not risk it getting missed Full code DVT prophylaxis: Heparin q8h needs rehab - she is now willing. HSR referral underway, hopefully can get approved and go 11/29 Continued [facility] stay due to: ambulation difficulties (significant fall risk if D /C home) Discharge planning: rehab hospital
--- NOTE | 2016-11-28 17:14 | CONSULTATION REPORT ---
DATE OF CONSULTATION: 11/28/2016 CHIEF COMPLAINT: Left arm pain. HISTORY OF PRESENT ILLNESS: The patient is a 61-year-old female with a past medical history of bipolar disorder, CHF, diabetes, seizure disorder that presented to the Emergency Room with a change in her mental status. The patient was recently admitted to the hospital for acute respiratory failure and discharged 3 days ago. The patient reports that while she was in her bathroom, her legs gave out and she was noticing some weakness. EMS was called and when they arrived, the patient's legs were shaking, and were stiff and rigid, they had difficulty lifting her from the ground. states that she was awake and alert the entire time, but both her legs were shaking and then became stiff. She is followed by a neurologist and a coding file clerk. She denied having any facial droop or slurred speech. The patient previously was on dialysis and has a left arm fistula. Before her hospital stay she was able to ambulate with a walker while at home. Three days in to her hospital stay on exam she noticed pain in her left upper extremity while attempting active range of motion. At this point in time, orthopedics was consulted. PAST MEDICAL HISTORY: Significant for bipolar disorder, congestive heart failure, diabetes mellitus type 2, acute renal failure. PAST SURGICAL HISTORY: Left arm fistula for acute renal failure. FAMILY HISTORY: Has a history of hypertension, diabetes mellitus and heart disease. SOCIAL HISTORY: She denies smoking or tobacco use. She denies illegal or IV drug use. Marital status is . She lives with her significant other. Occupational status is retired. ALLERGIES: No known drug allergies. MEDICATIONS: Tessalon Perles 200 mg p.o. every 8 hours, vitamin D3 1000 units p.o. q.a.m., enoxaparin 40 mg subcutaneous every 24 hours, furosemide 80 mg p.o. b.i.d., Mucinex 600 mg p.o. q.12 hours, allopurinol 1 dose subQ as directed, NovoLog 10 units subQ, Lantus 10 units subQ every 12 hours, Combivent 1 puff q.i.d., lactulose 1 dose p.o. as directed, Levetiracetam 500 mg p.o. b.i.d., lisinopril 5 mg p.o. q.a.m., lithium extended release 600 mg p.o. at bedtime, [place] carbonate 300 mg p.o. b.i.d., magnesium oxide 400 mg p.o. q.a.m., metolazone 5 mg p.o. daily, nystatin 1 application extended b.i.d., potassium chloride 60 mEq p.o., acetaminophen 650 mg p.o. q.4 hours p.r.n. pain and fever, MiraLax 17 grams p.o. daily p.r.n. for constipation, glucose 4- 8 tabs p.o. p.r.n. for hypoglycemia protocol. REVIEW OF SYSTEMS: She denies fevers, chills, double vision, blurry vision, hearing loss, sore throat, cough, chest pain, abdominal pain, nausea, vomiting, diarrhea, dysuria, depressive symptoms or thoughts to harm herself or harm others. No abnormal bruising or bleeding. No rashes. She has positive for left arm pain and swelling. OBJECTIVE: GENERAL APPEARANCE: The patient is a 61-year-old female who is sitting on the edge of her bed. She is in no acute distress. She is well dressed, well nourished. She is awake, alert and oriented x3. VITAL SIGNS: Pulse 94, respiratory rate 16, blood pressure 144/82, pulse ox 94% on room air. HEENT: Extraocular movements are intact. Mild exophthalmos on examination. Mucosa was moist. NECK: Supple, no lymphadenopathy, no JVD, no thyromegaly. HEART: Regular rate and rhythm. No murmurs or gallops. LUNGS: Clear to auscultation. ABDOMEN: Soft, nontender, nondistended. Normal bowel sounds. EXTREMITIES: Paying particular attention to the left upper extremity. She is able to actively flex to 25 degrees, abduct to 30 degrees, externally rotate to neutral, passively I am able to flex her to 60 degrees, abduct to 75 degrees, externally rotate to 20 degrees. Decreased strength in all ranges of motion. Difficult to appreciate empty can test, Neer sign, Hawking impingement sign, Dukes test due to decreased range of motion. IMAGING: X-rays were obtained of her left shoulder that showed no evidence of acute fracture or dislocation. There was mild rounding of the humeral head. Her labs were reviewed as per chart. IMPRESSION: Acute left shoulder pain. PLAN: The patient is a 61-year-old female with past medical history of bipolar disorder, CHF, diabetes type 2, seizure disorder that presented to the Emergency Room 3 days ago with a change in her mental status and witnessed jerking movements in both the upper extremities and lower extremities by her . Based on her physical exam and her history, it seems that her source of shoulder pain may be due to muscle soreness after having these jerking and rigid movements after an altered mental status. She does have swelling that goes down to her hand and forearm. No Doppler ultrasound was obtained of the fistula of the left arm. Bruits was audible, fistula was palpable. It is recommended that a Doppler ultrasound of the left upper extremity be obtained to rule out any incoherence of the fistula as well as possible DVT swelling into the forearm in the hand and fingers. It was discussed with the patient about doing a possible injection into the subacromial space to help the patient with pain with active and passive range of motion. At this time she states that the pain is getting better. She would like to hold off on the injection. This would help her with her physical therapy when she is discharged. I will have one of my colleagues evaluate her again tomorrow morning and discuss the possibility of a cortisone injection into the subacromial space if she continues to have pain and wishes to proceed, we will be able to give her that injection. She can follow up with Dr. Perez or his physician mailing machine assistant as an outpatient at the [facility]. Thank you for allowing us to take care of this patient in helping her treatment. SAIRA
[2016-11-28] MEDS ORDERED: HALOPERIDOL DECANOATE INJ 50 MG/ML VIAL IM ONE (18:00)
[2016-11-28] MEDS: LITHIUM CARBONATE SR 300 MG TAB (LITHOBID) PO SCH (20:49)
[2016-11-28] MEDS: NITROFURANTOIN MONOHYDRATE 100 MG CAP PO SCH (21:06)
--- NOTE | 2016-11-28 22:58 | DIAGNOSTIC IMAGING REPORT ---
LEFT UPPER EXTREMITY VENOUS DOPPLER HISTORY: Left arm edema. COMPARISON STUDY: Venous Doppler 04/01/2015. FINDINGS: The left internal jugular vein is patent. There is normal flow within the left subclavian vein. There is normal flow and compressibility within the left axillary, basilic, brachial, radial, ulnar, and visualized cephalic veins. The left upper extremity fistula also appears patent. IMPRESSION: No DVT within the left upper extremity. Electronically signed by: Alfonso Perez M.D. 11/28/2016 10:57 PM Dictated Date/Time: 11/28/2016 10:56 PM
[2016-11-28 23:20] VITALS: BP_SYST 113; BP_SYST 122; BP_SYST 131; BP_DIAS 70; BP_DIAS 77; BP_DIAS 81; PULSE 77; PULSE 81; PULSE 89; TEMP 36.3; O2SAT 98
[2016-11-29] MEDS: DICLOFENAC SOD 1% GEL 100 GM TUBE EXT SCH ×5 (00:09→23:50)
[2016-11-29] MEDS: ACETAMINOPHEN 325 MG TAB PO PRN ×3 (00:36→10:17)
[2016-11-29 08:03] VITALS: BP_SYST 103; BP_SYST 105; BP_SYST 116; BP_DIAS 67; BP_DIAS 71; BP_DIAS 76; PULSE 84; TEMP 36.5; O2SAT 93
[2016-11-29] MEDS: INSULIN ASPART 100 UNITS/ML 3 ML PEN SC SCH ×4 (08:34→21:22)
[2016-11-29] MEDS: INSULIN GLARGINE SOLOSTAR 100 UNITS/ML 3 ML PEN SC SCH (08:35)
[2016-11-29] MEDS: IPRATROPIUM BROMIDE/ALBUTEROL respimat INH INH SCH ×4 (08:37→20:55)
[2016-11-29] MEDS: LACTULOSE SYRUP 30 GM/45 ML UDP PO SCH ×3 (08:38→20:56)
[2016-11-29] MEDS: LEVETIRACETAM 500 MG TAB PO SCH ×2 (08:39→20:57)
[2016-11-29] MEDS: POTASSIUM CHLORIDE 20 MEQ TABCR PO SCH ×2 (08:40→20:58)
[2016-11-29] MEDS: METOLAZONE 5 MG TAB PO SCH (08:41)
[2016-11-29] MEDS: MAGNESIUM OXIDE 400 MG TAB PO SCH (08:41)
[2016-11-29] MEDS: LISINOPRIL 5 MG TAB PO SCH (08:42)
[2016-11-29] MEDS: FUROSEMIDE 80 MG TAB PO SCH ×2 (08:42→18:21)
[2016-11-29] MEDS: LITHIUM CARBONATE 300 MG TAB PO SCH ×2 (08:42→14:50)
[2016-11-29] MEDS: NYSTATIN CR 15 GM TUBE EXT SCH ×2 (08:51→20:55)
[2016-11-29] MEDS: ENOXAPARIN 40 MG/0.4 ML SYR SC SCH (08:51)
[2016-11-29] MEDS: NITROFURANTOIN MONOHYDRATE 100 MG CAP PO SCH ×2 (10:17→20:57)
--- NOTE | 2016-11-29 12:07 | Orthopedic Progress Note ---
Orthopedic Progress Note Date of Service Nov 29, 2016. Subjective Additional Notes: Pt sitting in chair on arrival. Somewhat somnolent but easily aroused for conversation. She states that the pain with the left shoulder is worse today. She states that when the shoulder is at rest, that the pain is controlled but active ROM causes moderate to severe pain today compared to yesterday. Denies fevers, chills. US of the LUE was negative for dvt. Plain films benign. Objective ROM of the left shoulder is very limited today. FF is minimal. Int/Ext rotation reduced from yesterday due to pain. Abduction also decreased. No increase in swelling that I can tell. The shoulder itself is nontender on palpation. No pain over the clavicle. No overt heat noted with the shoulder. Left elbow/ wrist/ fingers wnl. No pain with ROM. Date Time Temp Pulse Resp B/P (MAP) Pulse Ox O2 Delivery O2 Flow Rate FiO2 11/29/16 08:03 36.5 84 103/67 (79) 93 Nasal Cannula 2.0 84 105/71 (82) 116/76 (89) 11/29/16 00:00 Nasal Cannula 2.0 11/28/16 23:20 36.3 77 20 113/70 (84) 98 Nasal Cannula 2.0 81 122/77 (92) 89 131/81 (98) 11/28/16 20:00 Nasal Cannula 2.0 11/28/16 16:00 Nasal Cannula 2.0 11/28/16 15:33 36.6 86 18 114/72 (86) 96 Nasal Cannula 2.0 Assessment & Plan Assessment: Increasing left shoulder pain Plan: With worsening pain today, will plan for MRI of the left shoulder. Pt asked about injection in the shoulder but we will hold off on this until the MRI is done. No fevers, WBC wnl, doubt infection. Discussed case with Dr Coronado. Await MRI results. If negative, plan for likely steroid injection tomorrow.
[2016-11-29] MEDS ORDERED: NURSING VERBAL MED ORDER ONE (12:30)
[2016-11-29] MEDS ORDERED: OXYCODONE HCL IR 5 MG TAB (IMMEDIATE RELEASE) PO SCH (12:30)
--- NOTE | 2016-11-29 15:09 | Family Medicine Progress Note ---
Progress Note Date of Service Nov 29, 2016. Subjective Pt evaluation today including: conversation w/ patient, conversation w/ family , physical exam Voiding: no voiding problems, no incontinence [place] ok this morning, then on rounds felt very tired "all over" and felt her arm was worse. Reported pain medication so far did not work. Was eager to get injection by Orthopedics. Constitutional: + weakness, + fatigue, No fever, No sweats ENT: No hearing loss Respiratory: No cough, No sputum Cardiovascular: No chest pain Abdomen: No pain, No nausea, No vomiting, No diarrhea, No constipation Musculoskeletal: No joint pain Female : No dysuria Neurologic: No memory loss Psychiatric: + anxiety, No depression symptoms Heme: No abnormal bleeding/bruising Endo: No fatigue Skin: No rash All Other Systems: Reviewed and Negative Medications Current Inpatient Medications Medications (Trade) Dose Ordered Sig/Nanette Route Start Time Stop Time Status Last Admin Dose Admin Acetaminophen (Tylenol Tab) 650 mg Q4H PRN PO 11/24/16 22:30 12/24/16 22:29 11/29/16 10:17 650 MG Ondansetron HCl (Zofran Inj) 4 mg Q6H PRN IV 11/24/16 22:30 12/24/16 22:29 Polyethylene (Miralax Powder Packet) 17 gm DAILY PRN PO 11/24/16 22:30 12/24/16 22:29 Enoxaparin Sodium (Lovenox Inj) 40 mg Q24H SC 11/25/16 09:00 12/25/16 08:59 11/29/16 08:51 40 MG Furosemide (Lasix Tab) 80 mg BID17 PO 11/25/16 09:00 12/25/16 08:59 11/29/16 08:42 80 MG Albuterol/ Ipratropium (Combivent Respimat Inh) 1 puffs QID INH 11/25/16 09:00 12/25/16 08:59 11/29/16 12:34 1 PUFFS Levetiracetam (Keppra Tab) 500 mg BID PO 11/25/16 09:00 12/25/16 08:59 11/29/16 08:39 500 MG Lisinopril (Zestril Tab) 5 mg QAM PO 11/25/16 09:00 12/25/16 08:59 11/29/16 08:42 5 MG [place] Carbonate (Lithobid Tab) 600 mg HS PO 11/25/16 21:00 12/25/16 20:59 11/28/16 20:49 600 MG Magnesium Oxide (Mag-Ox Tab) 400 mg QAM PO 11/25/16 09:00 12/25/16 08:59 11/29/16 08:41 400 MG Metolazone (Zaroxolyn Tab) 5 mg DAILY PO 11/25/16 09:00 12/25/16 08:59 11/29/16 08:41 5 MG Nystatin (Mycostatin Crm) 1 appln BID EXT 11/25/16 09:00 12/25/16 08:59 11/29/16 08:51 1 APPLN Potassium Chloride (Klor-Con Tab) 60 meq QAM PO 11/25/16 09:00 12/25/16 08:59 11/29/16 08:40 60 MEQ Insulin Aspart (novoLOG ASPART) SLIDING SCALE G... ACHS SC 11/25/16 07:00 12/25/16 06:59 11/29/16 12:31 2 UNITS Miscellaneous (Iv Fluids Completed) 1 ea PRN PRN N/A 11/24/16 23:45 11/24/17 23:44 Glucose (Glucose 40% Gel) 15-30 GRAMS 15 GRAMS... UD PRN PO 11/24/16 23:45 12/24/16 23:44 Glucose (Glucose Chew Tab) 4-8 Tablets 4 Tabl... UD PRN PO 11/24/16 23:45 12/24/16 23:44 Dextrose (Dextrose 50% 50ML Syringe) 25-50ML OF 50% DW IV FOR... UD PRN IV 11/24/16 23:45 12/24/16 23:44 Glucagon (Glucagon Inj) 1 mg UD PRN SQ 11/24/16 23:45 12/24/16 23:44 Lactulose (Chronulac Syrup) 30 gm TID PO 11/25/16 00:39 12/25/16 00:38 11/29/16 14:50 30 GM Potassium Chloride (Klor-Con Tab) 40 meq PM PO 11/25/16 21:00 12/25/16 20:59 11/28/16 20:46 40 MEQ [place] Carbonate ([place] Carbonate Tab) 300 mg BID@0900,1400 PO 11/25/16 09:00 12/25/16 08:59 11/29/16 14:50 300 MG Diclofenac Sodium (Voltaren 1% Top Gel) 1 appln Q6 EXT 11/25/16 12:00 12/25/16 11:59 11/29/16 12:33 1 APPLN Insulin Glargine (Lantus Solostar Pen) 5 unit DAILY SC 11/27/16 09:00 12/27/16 08:59 11/29/16 08:35 5 UNIT Nitrofurantoin Macrocrystals (Macrobid Cap) 100 mg BID PO 11/28/16 20:00 12/03/16 19:59 11/29/16 10:17 100 MG Oxycodone HCl (Roxicodone Immediate Rel Tab) 5 mg TODAY@1230 PO 11/29/16 12:30 11/29/16 18:00 11/29/16 13:42 5 MG Objective Vital Signs Date Time Temp Pulse Resp B/P (MAP) Pulse Ox O2 Delivery O2 Flow Rate FiO2 11/29/16 08:03 36.5 84 103/67 (79) 93 Nasal Cannula 2.0 84 105/71 (82) 116/76 (89) 11/29/16 00:00 Nasal Cannula 2.0 11/28/16 23:20 36.3 77 20 113/70 (84) 98 Nasal Cannula 2.0 81 122/77 (92) 89 131/81 (98) 11/28/16 20:00 Nasal Cannula 2.0 11/28/16 16:00 Nasal Cannula 2.0 11/28/16 15:33 36.6 86 18 114/72 (86) 96 Nasal Cannula 2.0 Physical Exam General Appearance: WD/WN, no apparent distress Eyes: normal inspection, PERRL ENT: hearing grossly normal Neck: supple, no JVD Respiratory/Chest: lungs clear, normal breath sounds, no respiratory distress Cardiovascular: regular rate, rhythm, no murmur Abdomen: normal bowel sounds, non tender, soft Extremities: non-tender, + pertinent finding (unable to lift L extremity) 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: alert, normal mood/affect, oriented x 3 Skin: no rash Lymphatic: no adenopathy Laboratory Results Last 24 Hours Test 11/28/16 16:39 11/28/16 19:54 11/29/16 07:48 11/29/16 11:09 Bedside Glucose 193 mg/dl 139 mg/dl 230 mg/dl 237 mg/dl Assessment and Plan 61 yo F who initially presented with weakness / near-syncope, who also has severe L shoulder pain / frozen shoulder. Near-syncopal event, resolved No further episodes during admission Left frozen shoulder Ortho following Will be getting MRI shoulder today, and potentially injection tomorrow depending on MRI results E Coli UTI Sensitivites now returned Macrobid to complete 5 day course Hyperammonemia, near baseline Was trending downwards, will recheck tomorrow Continue Lactulose 30 mg 3 times a day Chronic hyponatremia Sodium at 130 now, will continue to monitor Diabetes Insulin sliding scale CHF Currently euvolemic Continue Lasix, metolazone Daily weights with strict I's and O's Echo: 12/26: * 1. Mildly dilated left ventricle with low-normal systolic function. EF 50-55 %. No regional wall motion abnormalities. No significant left ventricular hypertrophy. Type 1 diastolic dysfunction. Septal flattening consistent with RV volume overload. 2. Severely dilated right ventricle with visually mildly reduced systolic function. 3. The left atrium is mildly dilated. 4. The right atrium is moderately dilated. 5. Probably moderate to severe tricuspid regurgitation. 6. Mild pulmonary hypertension suggested; estimated RVSP 43 mmHg. 7. Compared to prior study on 01/05/2015, LV systolic function is now low normal and estimated RVSP has improved. Bipolar disorder - Continue home meds Full code DVT prophylaxis: Heparin q8h Dispo: Remains on Med Surg. Eventual discharge to [facility] Resident Physician Supervision Note: I was present with Dr. Romero during the history and exam. I discussed the case with the resident and agree with the findings and plan as documented in the note. Any exceptions or clarifications are listed here: Upon exam, the patient complains of left anterior shoulder tenderness with palpation, and she has marked limitation of motion. Orthopedics has ordered MRI today for further evaluation and will potentially inject the joint, which I suspect will help alleviate the pain and help PT. Documented By: Bob Spann Resident Tracking Resident Involvement: Resident Care Provided Care Provided: Adult [facility] Medicine
[2016-11-29 15:30] VITALS: BP 109/74; PULSE 82; TEMP 36.9; O2SAT 97
--- NOTE | 2016-11-29 15:30 | DIAGNOSTIC IMAGING REPORT ---
LEFT SHOULDER MRI HISTORY: Left shoulder pain. TECHNIQUE: Multiplanar multisequence MRI of the left shoulder was performed without contrast. COMPARISON STUDY: Left shoulder 11/28/2016. FINDINGS: AC joint: Moderate AC joint arthrosis. Rotator cuff: Diffuse thinning within the distal supraspinatus and infraspinatus tendons consistent with high-grade partial tears. No evidence for retraction. The subscapularis and teres minor tendons are intact. Mild fatty atrophy of the supraspinatus and infraspinatus muscles. Labrum: A normal labrum is not identified consistent with circumferential degeneration/tear. Biceps tendon: Small amount of increased signal within the proximal long head of the biceps tendon consistent with a mild tendinopathy. Bones: Focal indentation within the superolateral humeral head consistent with a Hill-Sachs impaction fracture. There is mild marrow edema at this location suggestive of an acute on chronic injury. There is also a large bony defect along the anterior inferior glenoid consistent with a bony Bankart lesion. This is age indeterminate but may be chronic given the lack of marrow edema. Findings are consistent with a history of anterior shoulder dislocations. No dislocation at this time. Cartilage: Moderate cartilage thinning at the glenoid with full-thickness cartilage loss inferiorly. There is also mild cartilage thinning within the humeral head. Miscellaneous: Moderate joint effusion. Heterogeneous signal within the subcoracoid recess which may represent a hemarthrosis. Best seen on coronal image 8 there is a 9 mm oval-shaped T2 hypointense structure. This favors an intra-articular loose body. Incidental note is made of dilated vascular structures within the upper arm consistent with an AV fistula. IMPRESSION: 1. 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 Findings are consistent with a history of prior shoulder dislocations. No dislocation at this time. 2. Nonvisualization of the labrum consistent with circumferential degeneration/tear. 3. Diffuse thinning of the distal supraspinatus and infraspinatus tendons consistent with high-grade partial tears. 4. Moderate joint effusion. 5. Heterogeneous signal within the subcoracoid recess which may represent hemarthrosis. 6. A 9 mm intra-articular loose body. Electronically signed by: Alfonso Perez M.D. 11/29/2016 3:28 PM Dictated Date/Time: 11/29/2016 3:14 PM
[2016-11-29] MEDS: LITHIUM CARBONATE SR 300 MG TAB (LITHOBID) PO SCH (20:58)
[2016-11-30] VITALS (8 sets, daily range): BP systolic 97–154; BP diastolic 62–82; PULSE 82–96; TEMP 36.5–36.8; O2SAT 90–97; Ht 160 cm; Wt 97.7 kg
[2016-11-30] MEDS: ACETAMINOPHEN 325 MG TAB PO PRN ×4 (00:34→20:27)
[2016-11-30] MEDS: DICLOFENAC SOD 1% GEL 100 GM TUBE EXT SCH ×4 (05:59→23:49)
[2016-11-30 07:19] LABS: BASO % 0.2 %; BASO ABS # 0.01 K/uL (0-0.2); COMPLETE YES; EOS % 1.8 %; HEMATOCRIT 42.2 % (37-47); IG% 0.2 %; LYMPH % 19.9 %; MEAN CELL VOLUME 92.1 fL (80-100); MEAN CORPUSCULAR HEMOGLOBIN 27.5 pg (25-34); MEAN CORPUSCULAR HGB CONC 29.9 g/dl (32-36); MEAN PLATELET VOLUME 9.6 fL (7.4-10.4); MONO % 10.1 %; NEUT % 67.8 %; PLATELET COUNT 183 K/uL (130-400); RED BLOOD COUNT 4.58 M/uL (4.2-5.4); WHITE BLOOD COUNT 6.02 K/uL (4.8-10.8)
--- NOTE | 2016-11-30 07:58 | Orthopedic Progress Note ---
Orthopedic Progress Note Date of Service Nov 30, 2016. Subjective Reports: feeling well Additional Notes: No new complaints. Sling in place. Appears comfortable. Objective N/V intact Moving fingers/wrist well. No decreased sensation. Sling in place. Continues to have pain with ROM. Date Time Temp Pulse Resp B/P (MAP) Pulse Ox O2 Delivery O2 Flow Rate FiO2 11/30/16 07:32 36.8 90 16 107/67 (80) 97 105/69 (81) 119/82 (94) 11/30/16 04:19 118/73 (88) 11/30/16 04:19 111/72 (85) 11/30/16 04:18 131/71 (91) 11/30/16 00:15 36.8 90 20 119/78 (92) 96 2.0 11/30/16 00:00 Nasal Cannula 2.0 11/29/16 20:00 Nasal Cannula 2.0 11/29/16 16:00 Nasal Cannula 2.0 11/29/16 15:30 36.9 82 20 109/74 (86) 97 Nasal Cannula 2.0 11/29/16 08:03 36.5 84 103/67 (79) 93 Nasal Cannula 2.0 84 105/71 (82) 116/76 (89) 11/29/16 08:00 Nasal Cannula 2.0 Laboratory Results 24 Hours: Test 11/30/16 07:08 White Blood Count 6.02 K/uL Red Blood Count 4.58 M/uL Hemoglobin 12.6 g/dL Hematocrit 42.2 % Mean Corpuscular Volume 92.1 fL Mean Corpuscular Hemoglobin 27.5 pg Mean Corpuscular Hemoglobin Concent 29.9 g/dl Platelet Count 183 K/uL Mean Platelet Volume 9.6 fL Neutrophils (%) (Auto) 67.8 % Lymphocytes (%) (Auto) 19.9 % Monocytes (%) (Auto) 10.1 % Eosinophils (%) (Auto) 1.8 % Basophils (%) (Auto) 0.2 % Neutrophils # (Auto) 4.08 K/uL Lymphocytes # (Auto) 1.20 K/uL Monocytes # (Auto) 0.61 K/uL Eosinophils # (Auto) 0.11 K/uL Basophils # (Auto) 0.01 K/uL Additional Notes: MRI Results of Left Shoulder AC joint: Moderate AC joint arthrosis. Rotator cuff: Diffuse thinning within the distal supraspinatus and infraspinatus tendons consistent with high-grade partial tears. No evidence for retraction. The subscapularis and teres minor tendons are intact. Mild fatty atrophy of the supraspinatus and infraspinatus muscles. Labrum: A normal labrum is not identified consistent with circumferential degeneration/tear. Biceps tendon: Small amount of increased signal within the proximal long head of the biceps tendon consistent with a mild tendinopathy. Bones: Focal indentation within the superolateral humeral head consistent with a Hill-Sachs impaction fracture. There is mild marrow edema at this location Assessment & Plan Assessment: Likely Dislocation of Left Shoulder with spontaneous reduction. Plan: MRI reviewed by Dr Perez. Plan will be to continue sling for LUE for up to 2 weeks. Pain management as per Dr Spann. Follow up with Dr Perez in 7-10 days. Call for appt. [phone]
[2016-11-30 08:15] LABS: ALB/GLOB RATIO 0.9 (0.9-2); BUN/CREATININE RATIO 14.2 (10-20); CALCIUM 10.4 mg/dl (8.5-10.1); CREATININE 0.89 mg/dl (0.60-1.20); POTASSIUM 3.1 mmol/L (3.5-5.1)
[2016-11-30] MEDS: IPRATROPIUM BROMIDE/ALBUTEROL respimat INH INH SCH ×4 (08:21→20:21)
[2016-11-30] MEDS: LACTULOSE SYRUP 30 GM/45 ML UDP PO SCH ×3 (08:22→20:23)
[2016-11-30] MEDS: LEVETIRACETAM 500 MG TAB PO SCH ×2 (08:24→20:25)
[2016-11-30] MEDS: POTASSIUM CHLORIDE 20 MEQ TABCR PO SCH ×2 (08:26→20:22)
[2016-11-30] MEDS: NITROFURANTOIN MONOHYDRATE 100 MG CAP PO SCH ×2 (08:26→20:24)
[2016-11-30] MEDS: MAGNESIUM OXIDE 400 MG TAB PO SCH (08:26)
[2016-11-30] MEDS: LISINOPRIL 5 MG TAB PO SCH (08:27)
[2016-11-30] MEDS: METOLAZONE 5 MG TAB PO SCH (08:27)
[2016-11-30] MEDS: FUROSEMIDE 80 MG TAB PO SCH ×2 (08:28→18:08)
[2016-11-30] MEDS: LITHIUM CARBONATE 300 MG TAB PO SCH ×2 (08:28→13:32)
[2016-11-30] MEDS ORDERED: KETOROLAC TROMETHAMINE 30 MG/ML VIAL IV ONE (08:45)
[2016-11-30] MEDS: INSULIN ASPART 100 UNITS/ML 3 ML PEN SC SCH ×4 (09:17→20:30)
[2016-11-30] MEDS: INSULIN GLARGINE SOLOSTAR 100 UNITS/ML 3 ML PEN SC SCH (09:17)
[2016-11-30] MEDS ORDERED: KETO10TA PO (09:45)
--- NOTE | 2016-11-30 09:48 | Discharge Instructions ---
Discharge Instructions Date of Service Nov 30, 2016. Admission Reason for Admission: Seizure-Like Activity Discharge Discharge Diagnosis / Problem: Seizure-like activity, Deconditioning, L Shoulder pain Discharge Goals Goal(s): Improve disease control Activity Recommendations Activity Level: Assistance Required Therapies: Physical Therapy, Weight Bearing Status, Occupational Therapy Lifting Limitations: gradually increase as tolerated Shower/Bathe: no limitations . Additional Information Patient informed of condition: Yes Advance Directives: No DNR: No Level of Care: Acute Rehab Communicable Disease: No Prognosis: Improving Iniguez Catheter: No Instructions / Follow-Up Instructions / Follow-Up 1 - Seizure like activity - she was reviewed by Neurology and this was deemed unlikely a seizure, and more from dehydration. She had no further events while in the hospital. 2 - Tremor in arms - seems to be at baseline, worse when anxious. Keppra level was normal. 3 - Left shoulder pain - MRI completed, should follow with [facility] as outpatient and get rehab for shoulder. Continue wearing sling. Current Hospital Diet Patient's current hospital diet: Diabetes Type 2 Diet Discharge Diet Recommended Diet: Diabetes Type 2 Diet Procedures Procedures Performed: MRI 11/29: IMPRESSION: 1. 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 Findings are consistent with a history of prior shoulder dislocations. No dislocation at this time. 2. Nonvisualization of the labrum consistent with circumferential degeneration/tear. 3. Diffuse thinning of the distal supraspinatus and infraspinatus tendons consistent with high-grade partial tears. 4. Moderate joint effusion. 5. Heterogeneous signal within the subcoracoid recess which may represent hemarthrosis. 6. A 9 mm intra-articular loose body. Pending Studies Studies pending at discharge: no Medical Emergencies . Who to Call and When: Medical Emergencies: If at any time you feel your situation is an emergency, please call 911 immediately. . Non-Emergent Contact Non-Emergency issues call your: Primary Care Provider . . "Provider Documentation" section prepared by Christal Romero. . Core Measure Problem Core Measures: None
[2016-11-30] MEDS: NYSTATIN CR 15 GM TUBE EXT SCH ×3 (10:02→20:23)
[2016-11-30] MEDS ORDERED: LORAZEPAM 2 MG/ML 1 ML VIAL IV STA (10:02)
[2016-11-30] MEDS: ENOXAPARIN 40 MG/0.4 ML SYR SC SCH (10:04)
[2016-11-30] MEDS ORDERED: LORAZEPAM INJ 0.5 MG in SYRINGE 0.75 ML IV ONE (10:30)
--- NOTE | 2016-11-30 10:33 | Consultant Recommendations ---
Pattern Setter Recommendations Date of Service Nov 30, 2016. Pattern Setter Recommendations Likely Left Shoulder Dislocation with spontaneous reduction. Continue sling LUE for 2 weeks or until seen by Dr Perez. No PT for now May loosen sling for comfort while sitting down to combat wrist numbness and to do gentle ROM of the elbow/wrist. Please follow up with Dr Perez in 7-10 days.Call for appt. [phone]
[2016-11-30] MEDS ORDERED: NURSING VERBAL MED ORDER ONE (13:30)
--- NOTE | 2016-11-30 17:10 | Family Medicine Progress Note ---
Progress Note Date of Service Nov 30, 2016. Subjective Pt evaluation today including: conversation w/ patient, conversation w/ family Overall, feels better. Earlier this morning, she was concerned her tongue was doing down her throat when laying flat, and her tongue started moving rapidly. She was still awake and alert during this time, but said she didn't feel well. I ordered pain medications (Toradol), and later Ativan, but before this was administered she fell asleep and her tongue movements stopped. On further r/v, she felt well. Denied any pain after Toradol. Additional Comments: ROS negative unless noted in HPI. Medications Current Inpatient Medications Medications (Trade) Dose Ordered Sig/Nanette Route Start Time Stop Time Status Last Admin Dose Admin Acetaminophen (Tylenol Tab) 650 mg Q4H PRN PO 11/24/16 22:30 12/24/16 22:29 11/30/16 13:33 650 MG Ondansetron HCl (Zofran Inj) 4 mg Q6H PRN IV 11/24/16 22:30 12/24/16 22:29 Polyethylene (Miralax Powder Packet) 17 gm DAILY PRN PO 11/24/16 22:30 12/24/16 22:29 Enoxaparin Sodium (Lovenox Inj) 40 mg Q24H SC 11/25/16 09:00 12/25/16 08:59 11/30/16 10:04 40 MG Furosemide (Lasix Tab) 80 mg BID17 PO 11/25/16 09:00 12/25/16 08:59 11/30/16 08:28 80 MG Albuterol/ Ipratropium (Combivent Respimat Inh) 1 puffs QID INH 11/25/16 09:00 12/25/16 08:59 11/30/16 11:58 1 PUFFS Levetiracetam (Keppra Tab) 500 mg BID PO 11/25/16 09:00 12/25/16 08:59 11/30/16 08:24 500 MG Lisinopril (Zestril Tab) 5 mg QAM PO 11/25/16 09:00 12/25/16 08:59 11/30/16 08:27 5 MG [place] Carbonate (Lithobid Tab) 600 mg HS PO 11/25/16 21:00 12/25/16 20:59 11/29/16 20:58 600 MG Magnesium Oxide (Mag-Ox Tab) 400 mg QAM PO 11/25/16 09:00 12/25/16 08:59 11/30/16 08:26 400 MG Metolazone (Zaroxolyn Tab) 5 mg DAILY PO 11/25/16 09:00 12/25/16 08:59 11/30/16 08:27 5 MG Nystatin (Mycostatin Crm) 1 appln BID EXT 11/25/16 09:00 12/25/16 08:59 11/30/16 13:05 1 APPLN Potassium Chloride (Klor-Con Tab) 60 meq QAM PO 11/25/16 09:00 12/25/16 08:59 11/30/16 08:26 60 MEQ Insulin Aspart (novoLOG ASPART) SLIDING SCALE G... ACHS SC 11/25/16 07:00 12/25/16 06:59 11/30/16 13:09 7 UNITS Miscellaneous (Iv Fluids Completed) 1 ea PRN PRN N/A 11/24/16 23:45 11/24/17 23:44 Glucose (Glucose 40% Gel) 15-30 GRAMS 15 GRAMS... UD PRN PO 11/24/16 23:45 12/24/16 23:44 Glucose (Glucose Chew Tab) 4-8 Tablets 4 Tabl... UD PRN PO 11/24/16 23:45 12/24/16 23:44 Dextrose (Dextrose 50% 50ML Syringe) 25-50ML OF 50% DW IV FOR... UD PRN IV 11/24/16 23:45 12/24/16 23:44 Glucagon (Glucagon Inj) 1 mg UD PRN SQ 11/24/16 23:45 12/24/16 23:44 Lactulose (Chronulac Syrup) 30 gm TID PO 11/25/16 00:39 12/25/16 00:38 11/30/16 13:32 30 GM Potassium Chloride (Klor-Con Tab) 40 meq PM PO 11/25/16 21:00 12/25/16 20:59 11/29/16 20:58 40 MEQ [place] Carbonate ([place] Carbonate Tab) 300 mg BID@0900,1400 PO 11/25/16 09:00 7/15/17 08:59 11/30/16 13:32 300 MG Diclofenac Sodium (Voltaren 1% Top Gel) 1 appln Q6 EXT 11/25/16 12:00 12/25/16 11:59 11/30/16 11:59 1 APPLN Insulin Glargine (Lantus Solostar Pen) 5 unit DAILY SC 11/27/16 09:00 12/27/16 08:59 11/30/16 09:17 5 UNIT Nitrofurantoin Macrocrystals (Macrobid Cap) 100 mg BID PO 11/28/16 20:00 12/03/16 19:59 11/30/16 08:26 100 MG Ketorolac Tromethamine (Toradol Tab) 10 mg Q6H PRN PO 11/30/16 13:45 12/05/16 13:44 Objective Vital Signs Date Time Temp Pulse Resp B/P (MAP) Pulse Ox O2 Delivery O2 Flow Rate FiO2 11/30/16 16:00 Nasal Cannula 2.0 11/30/16 14:55 36.6 82 18 124/72 (89) 96 2.0 11/30/16 11:09 36.5 94 18 107/69 (82) 93 2.0 11/30/16 10:00 96 16 154/62 (92) 90 Nasal Cannula 2.0 11/30/16 08:00 Nasal Cannula 2.0 11/30/16 07:32 36.8 90 16 107/67 (80) 97 105/69 (81) 119/82 (94) 11/30/16 04:19 118/73 (88) 11/30/16 04:19 111/72 (85) 11/30/16 04:18 131/71 (91) 11/30/16 00:15 36.8 90 20 119/78 (92) 96 2.0 11/30/16 00:00 Nasal Cannula 2.0 11/29/16 20:00 Nasal Cannula 2.0 Physical Exam General Appearance: WD/WN, no apparent distress Eyes: normal inspection, PERRL ENT: hearing grossly normal Neck: supple, no JVD Respiratory/Chest: lungs clear, normal breath sounds, no respiratory distress Cardiovascular: regular rate, rhythm, no murmur Abdomen: normal bowel sounds, non tender, soft Extremities: non-tender, no pedal edema 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: alert, normal mood/affect, oriented x 3 Skin: no rash Lymphatic: no adenopathy Laboratory Results Last 24 Hours Test 11/29/16 20:15 11/30/16 07:08 11/30/16 07:42 11/30/16 11:51 Bedside Glucose 241 mg/dl 250 mg/dl 288 mg/dl White Blood Count 6.02 K/uL Red Blood Count 4.58 M/uL Hemoglobin 12.6 g/dL Hematocrit 42.2 % Mean Corpuscular Volume 92.1 fL Mean Corpuscular Hemoglobin 27.5 pg Mean Corpuscular Hemoglobin Concent 29.9 g/dl Platelet Count 183 K/uL Mean Platelet Volume 9.6 fL Neutrophils (%) (Auto) 67.8 % Lymphocytes (%) (Auto) 19.9 % Monocytes (%) (Auto) 10.1 % Eosinophils (%) (Auto) 1.8 % Basophils (%) (Auto) 0.2 % Neutrophils # (Auto) 4.08 K/uL Lymphocytes # (Auto) 1.20 K/uL Monocytes # (Auto) 0.61 K/uL Eosinophils # (Auto) 0.11 K/uL Basophils # (Auto) 0.01 K/uL RDW Standard Deviation 49.5 fL RDW Coefficient of Variation 14.7 % Immature Granulocyte % (Auto) 0.2 % Immature Granulocyte # (Auto) 0.01 K/uL Sodium Level 129 mmol/L Potassium Level 3.1 mmol/L Chloride Level 81 mmol/L Carbon Dioxide Level 42 mmol/L Anion Gap 6.0 mmol/L Blood Urea Nitrogen 13 mg/dl Creatinine 0.89 mg/dl Est Creatinine Clear Calc Drug Dose 74.3 ml/min Estimated GFR () 81.1 Estimated GFR (Non- 70.0 BUN/Creatinine Ratio 14.2 Random Glucose 219 mg/dl Calcium Level 10.4 mg/dl Total Bilirubin 0.7 mg/dl Aspartate Amino Transf (AST/SGOT) 26 U/L Alanine Aminotransferase (ALT/SGPT) 24 U/L Alkaline Phosphatase 69 U/L Ammonia 65.0 umol/L Total Protein 7.7 gm/dl Albumin 3.7 gm/dl Globulin 4.0 gm/dl Albumin/Globulin Ratio 0.9 Test 11/30/16 16:40 11/30/16 17:02 Bedside Glucose 159 mg/dl Assessment and Plan 61 yo F who initially presented with weakness / near-syncope, who also has severe L shoulder pain / frozen shoulder, now medically stable for discharge. Near-syncopal event, resolved No further episodes during admission Left frozen shoulder MRI completed, will be managed as outpatient, no injection while inpatient E Coli UTI Macrobid to complete 5 day course Hyperammonemia, near baseline Ammonia 65 today, was in 80's on arrival Continue Lactulose 30 mg 3 times a day Chronic hyponatremia Sodium at 130 now, will continue to monitor Diabetes Insulin sliding scale CHF Currently euvolemic Continue Lasix, metolazone Daily weights with strict I's and O's Echo: 12/26: * 1. Mildly dilated left ventricle with low-normal systolic function. EF 50-55 %. No regional wall motion abnormalities. No significant left ventricular hypertrophy. Type 1 diastolic dysfunction. Septal flattening consistent with RV volume overload. 2. Severely dilated right ventricle with visually mildly reduced systolic function. 3. The left atrium is mildly dilated. 4. The right atrium is moderately dilated. 5. Probably moderate to severe tricuspid regurgitation. 6. Mild pulmonary hypertension suggested; estimated RVSP 43 mmHg. 7. Compared to prior study on 01/05/2015, LV systolic function is now low normal and estimated RVSP has improved. Bipolar disorder - Continue home meds Full code DVT prophylaxis: Heparin q8h Dispo: Remains on Med Surg. Medically stable for DC to H/S but pending authorization. Resident Physician Supervision Note: I was present with Dr. Romero during the history and exam. I discussed the case with the resident and agree with the findings and plan as documented in the note. Any exceptions or clarifications are listed here: Events of this morning reviewed. When I saw the patient with Dr. Romero around 1 PM she was alert, oriented, pleasant and without complaint. Left shoulder has been placed in sling, which seems to be lessening her discomfort. Documented By: Bob Spann Resident Tracking Resident Involvement: Resident Care Provided Care Provided: Adult Hospital Medicine
[2016-11-30] MEDS: KETOROLAC TROMETHAMINE 10 MG TAB PO PRN ×2 (18:19→23:50)
[2016-11-30] MEDS: LITHIUM CARBONATE SR 300 MG TAB (LITHOBID) PO SCH (20:24)
[2016-12-01] MEDS: DICLOFENAC SOD 1% GEL 100 GM TUBE EXT SCH ×3 (05:49→17:57)
--- NOTE | 2016-12-01 06:48 | Discharge Summary ---
Discharge Summary Date of Service Dec 01, 2016. Discharge Summary Admission Date: Nov 24, 2016 at 22:41 Immunizations: Have You Had Influenza Vaccine: Unknown Influenza Vaccine Date: Sep 27, 2009 History of Tetanus Vaccine?: Unknown History of Pneumococcal: No Pneumococcal Date: Jun 28, 2007 History of Hepatitis B Vaccine: Unknown Hospital Course This includes examination of the patient, discharge planning, medication reconciliation, and communication with other providers. Discharge Instructions Please refer to the electronic Patient Visit Report (Discharge Instructions) for additional information.
[2016-12-01 06:52] LABS: ESTIMATED AVERAGE GLUCOSE 166 mg/dl; HA1C FLAG Normal (Normal)
[2016-12-01] MEDS: KETOROLAC TROMETHAMINE 10 MG TAB PO PRN ×3 (07:32→20:55)
[2016-12-01] MEDS: NITROFURANTOIN MONOHYDRATE 100 MG CAP PO SCH ×2 (07:32→21:01)
[2016-12-01] MEDS: FUROSEMIDE 80 MG TAB PO SCH ×2 (07:33→15:44)
[2016-12-01] MEDS: POTASSIUM CHLORIDE 20 MEQ TABCR PO SCH ×2 (07:34→21:02)
[2016-12-01] MEDS: MAGNESIUM OXIDE 400 MG TAB PO SCH (07:34)
[2016-12-01] MEDS: METOLAZONE 5 MG TAB PO SCH (07:34)
[2016-12-01] MEDS: LITHIUM CARBONATE 300 MG TAB PO SCH ×2 (07:35→12:58)
[2016-12-01] MEDS: LISINOPRIL 5 MG TAB PO SCH (07:35)
[2016-12-01] MEDS: IPRATROPIUM BROMIDE/ALBUTEROL respimat INH INH SCH ×4 (07:36→21:09)
[2016-12-01] MEDS: LEVETIRACETAM 500 MG TAB PO SCH ×2 (07:36→21:03)
[2016-12-01] MEDS: LACTULOSE SYRUP 30 GM/45 ML UDP PO SCH ×3 (07:36→21:08)
[2016-12-01] MEDS: NYSTATIN CR 15 GM TUBE EXT SCH ×2 (07:37→21:13)
[2016-12-01 08:21] VITALS: BP 112/80; PULSE 90; TEMP 36.8; O2SAT 92
[2016-12-01] MEDS: INSULIN GLARGINE SOLOSTAR 100 UNITS/ML 3 ML PEN SC SCH (08:37)
[2016-12-01] MEDS: ENOXAPARIN 40 MG/0.4 ML SYR SC SCH (08:39)
[2016-12-01] MEDS: INSULIN ASPART 100 UNITS/ML 3 ML PEN SC SCH ×4 (08:39→21:38)
[2016-12-01] MEDS: ACETAMINOPHEN 325 MG TAB PO PRN (11:09)
[2016-12-01 15:17] VITALS: BP 129/77; PULSE 91; TEMP 36.9; O2SAT 95
[2016-12-01 16:00] VITALS: O2SAT 95
--- NOTE | 2016-12-01 17:06 | Family Medicine Progress Note ---
Progress Note Date of Service Dec 01, 2016. Subjective Pt evaluation today including: conversation w/ patient, conversation w/ family , physical exam Voiding: no voiding problems Dara felt ok in the morning, but then was very anxious about leaving, and at that time her tongue started fasciculating again. Once I started talking to her , this stopped and her anxiety was better. We're still pending insurance approval Constitutional: No fever, No chills Eyes: No worsening of vision ENT: No hearing loss Respiratory: No cough Cardiovascular: No chest pain Abdomen: No pain, No nausea Musculoskeletal: No joint pain Female : No dysuria Neurologic: No memory loss Psychiatric: No depression symptoms Heme: No abnormal bleeding/bruising Endo: + fatigue Medications Current Inpatient Medications Medications (Trade) Dose Ordered Sig/Nanette Route Start Time Stop Time Status Last Admin Dose Admin Acetaminophen (Tylenol Tab) 650 mg Q4H PRN PO 11/24/16 22:30 12/24/16 22:29 12/01/16 11:09 650 MG Ondansetron HCl (Zofran Inj) 4 mg Q6H PRN IV 11/24/16 22:30 12/24/16 22:29 Polyethylene (Miralax Powder Packet) 17 gm DAILY PRN PO 11/24/16 22:30 12/24/16 22:29 Enoxaparin Sodium (Lovenox Inj) 40 mg Q24H SC 11/25/16 09:00 12/25/16 08:59 12/01/16 08:39 40 MG Furosemide (Lasix Tab) 80 mg BID17 PO 11/25/16 09:00 12/25/16 08:59 12/01/16 15:44 80 MG Albuterol/ Ipratropium (Combivent Respimat Inh) 1 puffs QID INH 11/25/16 09:00 12/25/16 08:59 12/01/16 15:44 1 PUFFS Levetiracetam (Keppra Tab) 500 mg BID PO 11/25/16 09:00 12/25/16 08:59 12/01/16 07:36 500 MG Lisinopril (Zestril Tab) 5 mg QAM PO 11/25/16 09:00 12/25/16 08:59 12/01/16 07:35 5 MG Somerset Carbonate (Lithobid Tab) 600 mg HS PO 11/25/16 21:00 12/25/16 20:59 11/30/16 20:24 600 MG Magnesium Oxide (Mag-Ox Tab) 400 mg QAM PO 11/25/16 09:00 12/25/16 08:59 12/01/16 07:34 400 MG Metolazone (Zaroxolyn Tab) 5 mg DAILY PO 11/25/16 09:00 12/25/16 08:59 12/01/16 07:34 5 MG Nystatin (Mycostatin Crm) 1 appln BID EXT 11/25/16 09:00 12/25/16 08:59 12/01/16 07:37 1 APPLN Potassium Chloride (Klor-Con Tab) 60 meq QAM PO 11/25/16 09:00 12/25/16 08:59 12/01/16 07:34 60 MEQ Insulin Aspart (novoLOG ASPART) SLIDING SCALE G... ACHS SC 11/25/16 07:00 12/25/16 06:59 12/01/16 13:02 6 UNITS Miscellaneous (Iv Fluids Completed) 1 ea PRN PRN N/A 11/24/16 23:45 11/24/17 23:44 Glucose (Glucose 40% Gel) 15-30 GRAMS 15 GRAMS... UD PRN PO 11/24/16 23:45 12/24/16 23:44 Glucose (Glucose Chew Tab) 4-8 Tablets 4 Tabl... UD PRN PO 11/24/16 23:45 12/24/16 23:44 Dextrose (Dextrose 50% 50ML Syringe) 25-50ML OF 50% DW IV FOR... UD PRN IV 11/24/16 23:45 12/24/16 23:44 Glucagon (Glucagon Inj) 1 mg UD PRN SQ 11/24/16 23:45 12/24/16 23:44 Lactulose (Chronulac Syrup) 30 gm TID PO 11/25/16 00:39 12/25/16 00:38 12/01/16 12:58 30 GM Potassium Chloride (Klor-Con Tab) 40 meq PM PO 11/25/16 21:00 12/25/16 20:59 11/30/16 20:22 40 MEQ [place] Carbonate (S[place] Carbonate Tab) 300 mg BID@0900,1400 PO 11/25/16 09:00 12/25/16 08:59 12/01/16 12:58 300 MG Diclofenac Sodium (Voltaren 1% Top Gel) 1 appln Q6 EXT 11/25/16 12:00 12/25/16 11:59 12/01/16 12:58 1 APPLN Nitrofurantoin Macrocrystals (Macrobid Cap) 100 mg BID PO 11/28/16 20:00 12/03/16 19:59 12/01/16 07:32 100 MG Ketorolac Tromethamine (Toradol Tab) 10 mg Q6H PRN PO 11/30/16 13:45 12/05/16 13:44 12/01/16 13:03 10 MG Insulin Glargine (Lantus Solostar Pen) 10 unit DAILY SC 12/01/16 08:00 12/27/16 08:59 12/01/16 08:37 10 UNIT Objective Vital Signs Date Time Temp Pulse Resp B/P (MAP) Pulse Ox O2 Delivery O2 Flow Rate FiO2 12/01/16 16:00 95 Nasal Cannula 2.0 12/01/16 15:17 36.9 91 18 129/77 (94) 95 Nasal Cannula 2.0 12/01/16 11:49 Nasal Cannula 2.0 12/01/16 08:21 36.8 90 18 112/80 (91) 92 2.0 12/01/16 00:15 Nasal Cannula 2.0 11/30/16 23:59 36.8 85 20 97/63 (74) 95 2.0 11/30/16 20:00 Nasal Cannula 2.0 Physical Exam General Appearance: WD/WN, no apparent distress Eyes: normal inspection, PERRL ENT: hearing grossly normal Neck: supple Respiratory/Chest: lungs clear, normal breath sounds, no respiratory distress Cardiovascular: regular rate, rhythm, no murmur Abdomen: normal bowel sounds, non tender, soft Extremities: non-tender, no pedal edema 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: alert, normal mood/affect, oriented x 3 Skin: no rash Laboratory Results Last 24 Hours Test 11/30/16 20:07 12/01/16 08:01 12/01/16 11:49 12/01/16 16:21 Bedside Glucose 176 mg/dl 167 mg/dl 267 mg/dl 151 mg/dl Assessment and Plan 61 yo F who initially presented with weakness / near-syncope, who also has severe L shoulder pain / frozen shoulder, now medically stable for discharge - we are waiting insurance auth for her to go to [facility]. Deconditioning She has been unable to ambulate since coming in. She fatigues easily. She requires at least 1 person assist. She is unable to use a walker efficiently with her left arm in a sling. She has been at [facility] previously and has done very well there, she had been able to rehab back to her usual baseline Near-syncopal event, resolved No further episodes during admission Left frozen shoulder MRI completed, will be managed as outpatient, no injection while inpatient Sling placed E Coli UTI Macrobid to complete 5 day course Hyperammonemia, near baseline Ammonia 65 yesterday, was in 80's on arrival Continue Lactulose 30 mg 3 times a day Chronic hyponatremia Sodium at 130 now, will continue to monitor Diabetes Insulin sliding scale Increased her Lantus to 10 units twice a day, which has improved her blood sugar control. CHF Currently euvolemic Continue Lasix, metolazone Daily weights with strict I's and O's Echo: 12/26: * 1. Mildly dilated left ventricle with low-normal systolic function. EF 50-55 %. No regional wall motion abnormalities. No significant left ventricular hypertrophy. Type 1 diastolic dysfunction. Septal flattening consistent with RV volume overload. 2. Severely dilated right ventricle with visually mildly reduced systolic function. 3. The left atrium is mildly dilated. 4. The right atrium is moderately dilated. 5. Probably moderate to severe tricuspid regurgitation. 6. Mild pulmonary hypertension suggested; estimated RVSP 43 mmHg. 7. Compared to prior study on 01/05/2015, LV systolic function is now low normal and estimated RVSP has improved. Bipolar disorder - Continue home meds Full code DVT prophylaxis: Heparin q8h Dispo: Remains on Med Surg. Medically stable for DC to H/S but pending authorization Resident Physician Supervision Note: I was present with Dr. Romero during the history and exam. I discussed the case with the resident and agree with the findings and plan as documented in the note. Any exceptions or clarifications are listed here: Unfortunately, insurance has denied [facility] pending [id number] review, which we will pursue tomorrow. Given the patient weakness - furthered deconditioning from her hospitalization, I feel that she would be able to participate in inpatient rehabilitation and would benefit from it. Documented By: Bob Spann Resident Tracking Resident Involvement: Resident Care Provided Care Provided: Adult Hospital Medicine
[2016-12-01] MEDS: LITHIUM CARBONATE SR 300 MG TAB (LITHOBID) PO SCH (21:03)
[2016-12-01 23:02] VITALS: BP 125/71; PULSE 85; TEMP 37; O2SAT 96
[2016-12-02] MEDS: KETOROLAC TROMETHAMINE 10 MG TAB PO PRN ×2 (03:30→09:16)
[2016-12-02] MEDS: DICLOFENAC SOD 1% GEL 100 GM TUBE EXT SCH ×3 (05:30→13:03)
[2016-12-02 07:18] VITALS: BP 117/72; PULSE 94; TEMP 36.8; O2SAT 96
[2016-12-02] MEDS: FUROSEMIDE 80 MG TAB PO SCH (09:13)
[2016-12-02] MEDS: LISINOPRIL 5 MG TAB PO SCH (09:14)
[2016-12-02] MEDS: NITROFURANTOIN MONOHYDRATE 100 MG CAP PO SCH (09:14)
[2016-12-02] MEDS: POTASSIUM CHLORIDE 20 MEQ TABCR PO SCH (09:17)
[2016-12-02] MEDS: MAGNESIUM OXIDE 400 MG TAB PO SCH (09:19)
[2016-12-02] MEDS: ENOXAPARIN 40 MG/0.4 ML SYR SC SCH (09:19)
[2016-12-02] MEDS: METOLAZONE 5 MG TAB PO SCH (09:19)
[2016-12-02] MEDS: LEVETIRACETAM 500 MG TAB PO SCH (09:20)
[2016-12-02] MEDS: LACTULOSE SYRUP 30 GM/45 ML UDP PO SCH ×2 (09:20→13:02)
[2016-12-02] MEDS: IPRATROPIUM BROMIDE/ALBUTEROL respimat INH INH SCH ×2 (09:20→13:02)
[2016-12-02] MEDS: NYSTATIN CR 15 GM TUBE EXT SCH (09:21)
[2016-12-02] MEDS: INSULIN ASPART 100 UNITS/ML 3 ML PEN SC SCH ×2 (09:25→13:05)
[2016-12-02] MEDS: INSULIN GLARGINE SOLOSTAR 100 UNITS/ML 3 ML PEN SC SCH (09:26)
[2016-12-02] MEDS: LITHIUM CARBONATE 300 MG TAB PO SCH ×2 (09:28→13:00)
[2016-12-02] MEDS: ACETAMINOPHEN 325 MG TAB PO PRN (13:01)
[2016-12-02 15:14] VITALS: BP 117/72; PULSE 94; TEMP 36.8; O2SAT 96
[2016-12-02] MEDS ORDERED: MCRB100 PO (15:50)
[2016-12-02 16:00] VITALS: O2SAT 96
--- NOTE | 2016-12-02 16:11 | Discharge Summary ---
Discharge Summary Date of Service Dec 02, 2016. (Christal Romero MD) Discharge Summary Admission Date: Nov 24, 2016 at 22:41 Discharge Date: Dec 02, 2016 Discharge Disposition: Rehab Principal Diagnosis: Weakness Problems/Secondary Diagnoses: UTI, Shoulder impingement Immunizations: Have You Had Influenza Vaccine: Unknown Influenza Vaccine Date: Sep 27, 2009 History of Tetanus Vaccine?: Unknown History of Pneumococcal: No Pneumococcal Date: Jun 28, 2007 History of Hepatitis B Vaccine: Unknown Procedures: MRI L shoulder - (has multiple abnormalities, should be follow up by [facility] in a few weeks) (Unable to copy into DC summary) Consultations: [facility]oped[facility] Neurology (Christal Romero MD) Medication Reconciliation New Medications: Ketorolac Tromethamine (Toradol) 10 Mg Tab 1 TAB PO Q6H PRN for Pain for 5 Days, #20 TAB Nitrofurantoin Monohyd Macrocr (Nitrofurantoin Monohydrat) 100 Mg Cap 100 MG PO BID for 1 Day, #3 CAP Continued Medications: Acetaminophen (Tylenol) 325 Mg Tab 650 MG PO Q4 PRN for Pain or Fever DO NOT EXCEED 3GM/24HRS Benzonatate (Tessalon Perles) 200 Mg Cap 200 MG PO Q8, CAP Cholecalciferol (Vitamin D3) 1,000 Unit Cap 1000 INTER.UNIT PO QAM Furosemide (Furosemide) 80 Mg Tab 80 MG PO BID, #180 Glucose-Vitamin C (Dex4) 1 Chw Chw 4-8 TABS PO UD PRN for HYPOGLYCEMIA PROTOCOL for 30 Days, #30 Haloperidol Decanoate (Haloperidol Decanoate) 100 Mg/Ml Inj 1 DOSE SQ DIRECTED, #4 Insulin Aspart (Novolog) 100 Units/Ml Inj 10 UNITS SQ UD ONLY IF BS IS >180 Insulin Glargine (Lantus Solostar) 100 Unit/Ml Inj 10 UNIT SC Q12 for 30 Days Ipratropium-Albuterol (Combivent Respimat) 1 Aer Aer 1 PUFFS INH QID, INH Lactulose (Chronulac) 10 Gm/15 Ml Syrp 1 DOSE PO DIRECTED Levetiractam (Levetiracetam) 500 Mg Tab 500 MG PO BID Lisinopril (Lisinopril) 5 Mg Tab 5 MG PO QAM Dufur Carbonate (Lithobid Ext Rel) 300 Mg Tab 600 MG PO HS Dufur Carbonate (Dufur Carbonate) 300 Mg Cap 300 MG PO BID, #180 Magnesium Oxide (Mag-Ox) 400 Mg Tab 400 MG PO QAM Metolazone (Metolazone) 5 Mg Tab 5 MG PO DAILY, #90 Nystatin (Nystatin) 45 Appln/15 Gm Cr 1 APPLN EXT BID for 30 Days, #60 GM Polyethylene (Miralax) 17 Gm Pow 17 GM PO DAILY PRN for Constipation for 30 Days, #30 Potassium Chloride (Klor-Con M20) 20 Meq Tabcr 60 MEQ PO UD 3 tablets in the morning, 2 tablets at night Discontinued Medications: Enoxaparin (Enoxaparin Sodium) 40 Mg/0.4 Ml Inj 40 MG SC Q24H for 7 Days Guaifenesin Ext Rel (Mucinex Ext Rel) 600 Mg Tabcr 600 MG PO Q12 for 7 Days Discharge Exam Review of Systems: Constitutional: No fever, No chills, No sweats Eyes: No worsening of vision ENT: No hearing loss Respiratory: No cough, No sputum, No wheezing Cardiovascular: No chest pain Abdomen: No pain, No nausea, No vomiting Musculoskeletal: No joint pain Genitourinary - Female: No dysuria, No hematuria Neurologic: + weakness, No memory loss Psychiatric: + anxiety, No depression symptoms Endocrine: No fatigue Hematologic / Lymphatic: No abnormal bleeding/bruising Integumentary: No rash Physical Exam: General Appearance: WD/WN, no apparent distress Eyes: normal inspection, PERRL ENT: hearing grossly normal Neck: supple, no JVD Respiratory/Chest: lungs clear Cardiovascular: regular rate, rhythm, no murmur, normal peripheral pulses Abdomen / GI: non tender, soft Extremities: no pedal edema 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: alert, normal mood/affect, oriented x 3 Skin: no rash (Christal Romero MD) Hospital Course HPI: 61-year-old female with past medical history of bipolar disorder, CHF, diabetes , seizure disorder presented to the ER with change in her mental status. The patient was recently admitted for acute respiratory failure and discharged 3 days ago. The patient is very drowsy and most of the history is from the . Per , the patient had been very weak and fatigued since discharge this morning she she had come out of the bathroom and was kneeling down by the chair and complained that she couldn't get up. He noticed that she was shaking her right and left upper extremities and was very stiff in both her lower extremities. He denied any tongue biting, bowel or bladder incontinence. Denied any fevers or chills, slurring of speech or blurring of vision. She is currently on Keppra for a presumed seizure and has been compliant with her medication. The patient briefly answers questions and drifts back to sleep but denies any numbness or tingling. She complains of some weakness in her left upper extremity and in both the lower extremiti HOSPITAL COURSE: 61 yo F who initially presented with weakness / near-syncope, who also has severe L shoulder pain / frozen shoulder, now medically stable for discharge, she will able to spend a week a [facility] for rehab. Deconditioning She has been unable to ambulate since coming in. She fatigues easily. She requires at least 1 person assist. She is unable to use a walker efficiently with her left arm in a sling. She has been at [facility] previously and has done very well there, she had been able to rehab back to her usual baseline Near-syncopal event, resolved No further episodes during admission Left frozen shoulder MRI completed, will be managed as outpatient, no injection while inpatient Sling placed E Coli UTI Macrobid to complete 5 day course, starting 11/28/2016 Hyperammonemia, near baseline Ammonia 65 yesterday, was in 80's on arrival Continue Lactulose 30 mg 3 times a day Chronic hyponatremia Sodium at 130 now, will continue to monitor Diabetes Insulin sliding scale Increased her Lantus to 10 units twice a day, which has improved her blood sugar control. CHF Currently euvolemic Continue Lasix, metolazone Daily weights with strict I's and O's Echo: 12/26: * 1. Mildly dilated left ventricle with low-normal systolic function. EF 50-55 %. No regional wall motion abnormalities. No significant left ventricular hypertrophy. Type 1 diastolic dysfunction. Septal flattening consistent with RV volume overload. 2. Severely dilated right ventricle with visually mildly reduced systolic function. 3. The left atrium is mildly dilated. 4. The right atrium is moderately dilated. 5. Probably moderate to severe tricuspid regurgitation. 6. Mild pulmonary hypertension suggested; estimated RVSP 43 mmHg. 7. Compared to prior study on 01/05/2015, LV systolic function is now low normal and estimated RVSP has improved. Bipolar disorder - Continue home meds Full code DVT prophylaxis: Heparin q8h Total Time Spent: Greater than 30 minutes This includes examination of the patient, discharge planning, medication reconciliation, and communication with other providers. (Christal Romero MD) Resident Physician Supervision Note: I was present with Dr. Romero during the history and exam. I discussed the case with the resident and agree with the findings and plan as documented in the note. Documented By: Bob Spann Total Time Spent: Greater than 30 minutes Time spent for this discharge including physical exam, discussion with case management, and discussion with insurance physician for peer to peer review took 45 minutes in total. (Bob Spann,D.O.) Discharge Instructions Please refer to the electronic Patient Visit Report (Discharge Instructions) for additional information. (Christal Romero MD) Follow-Up With Dr Patel in 1-2 weeks With [facility] in 4-6 weeks (Christal Romero MD) Additional Copies To Bin Patel M.D.; Price Candelario,P.A. Resident Tracking Resident Involvement: Resident Care Provided Care Provided: Adult Hospital Medicine (Christal Romero MD)
[2016-12-08] MEDS ORDERED: LCTL45 PO (10:15)
[2016-12-08] MEDS ORDERED: INSDGIPEN SC (10:15)
[2016-12-08] MEDS ORDERED: MCRK20 PO (10:15)
[2016-12-08] MEDS ORDERED: LTHCR300 PO (10:15)
[2016-12-08] MEDS ORDERED: MRLP17X PO (10:15)
[2016-12-08] MEDS ORDERED: HALO100I IM (10:15)
[2016-12-08] MEDS ORDERED: METO5TAB25 PO (10:15)
[2016-12-08] MEDS ORDERED: FRS/40 PO (10:15)
== END 2016-12-02 17:20 ==
LOC: EDBD 12:57 → C.EDC 13:00 → C.2E 22:41 → ENRESERV 22:45 → EDBEDREQ 22:46 → ENRESERV 11-25 12:30 → C.4E 11-25 13:42
PROVIDERS: ADMIT Family Medicine; ATTEND Family Medicine
DX: R53.1 Weakness (principal); R55 Syncope and collapse; R29.898 Other symptoms and signs involving the musculoskeletal system; B96.20 Unspecified Escherichia coli [E. coli] as the cause of diseases classified elsewhere; N39.0 Urinary tract infection, site not specified; E86.0 Dehydration; E11.65 Type 2 diabetes mellitus with hyperglycemia; E87.1 Hypo-osmolality and hyponatremia; G40.909 Epilepsy, unspecified, not intractable, without status epilepticus; M75.02 Adhesive capsulitis of left shoulder; E72.20 Disorder of urea cycle metabolism, unspecified; F31.9 Bipolar disorder, unspecified; I50.9 Heart failure, unspecified; Z82.49 Family history of ischemic heart disease and other diseases of the circulatory system; Z83.3 Family history of diabetes mellitus; Z79.899 Other long term (current) drug therapy; Z79.4 Long term (current) use of insulin

== ENCOUNTER 2016-12-04 11:51 | Inpatient (IN) | payer BC ==
[~2016-12-04] VITALS: Ht 162.6 cm; Wt 94.5 kg
[~2016-12-04 11:51] MED LIST changes: -DEXT40GE2 PO; -GFNSR600 PO; +KETO10TA PO; -LVNIS40 SC; +MCRB100 PO; +NVLG SQ; -NVLGI SQ
[2016-12-04] MEDS ORDERED: SODIUM CHLORIDE 0.9% 1000ML 1,000 ML IV STA ×2 (12:17→14:19)
[2016-12-04 13:12] LABS: BASO % 0.1 %; BASO ABS # 0.01 K/uL (0-0.2); COMPLETE YES; EOS % 0.9 %; HEMATOCRIT 44.2 % (37-47); IG% 0.2 %; LYMPH % 12.1 %; LYMPH ABS # 0.98 K/uL (1.2-3.4); MEAN CELL VOLUME 93.6 fL (80-100); MEAN CORPUSCULAR HEMOGLOBIN 27.5 pg (25-34); MEAN CORPUSCULAR HGB CONC 29.4 g/dl (32-36); MEAN PLATELET VOLUME 10.3 fL (7.4-10.4); MONO % 7.4 %; NEUT % 79.3 %; PLATELET COUNT 223 K/uL (130-400); RED BLOOD COUNT 4.72 M/uL (4.2-5.4); WHITE BLOOD COUNT 8.09 K/uL (4.8-10.8)
[2016-12-04 13:15] LABS: VEN BLD GAS O2 SATURATION 89.8 %; VEN BLOOD GAS BASE EXCESS 16.1 mmol/L
[2016-12-04 13:20] LABS: PARTIAL THROMBOPLASTIN RATIO 0.9
--- NOTE | 2016-12-04 13:26 | DIAGNOSTIC IMAGING REPORT ---
CT SCAN OF THE BRAIN WITHOUT IV CONTRAST CLINICAL HISTORY: Generalized weakness. Lethargy. COMPARISON STUDY: CT the brain dated 11/24/2016. MRI of the brain dated 11/25/2016. TECHNIQUE: Unenhanced axial CT scan of the brain is performed from the vertex to the skull base. Automated dose control exposure was utilized. CT DOSE: 537.48 mGy.cm FINDINGS: Brain parenchyma: The brain parenchyma is normal in appearance. There is no hemorrhage, mass effect, or evidence of acute territorial ischemia by CT criteria. Hughes-white matter is preserved. No extra-axial fluid collection is seen. Ventricles, sulci, cisterns: Normal in configuration. Intracranial vasculature: There is mild atherosclerotic calcification of the cavernous carotid arteries. Calvarium: Unremarkable. Sinuses and mastoids: The visualized paranasal sinuses are clear. The mastoid air cells are well pneumatized. Orbits: The bony orbits are grossly intact. IMPRESSION: There is no hemorrhage, mass effect, or evidence of acute territorial ischemia by CT criteria. Electronically signed by: Ke Ojeda M.D. 12/04/2016 1:25 PM Dictated Date/Time: 12/04/2016 1:23 PM
[2016-12-04 13:30] LABS: CALCIUM 11.6 mg/dl (8.5-10.1); CREATININE 1.1 mg/dl (0.60-1.20); MAGNESIUM 2.3 mg/dl (1.8-2.4); POTASSIUM 3.1 mmol/L (3.5-5.1)
--- NOTE | 2016-12-04 13:31 | DIAGNOSTIC IMAGING REPORT ---
SINGLE VIEW CHEST CLINICAL HISTORY: Generalized weakness. FINDINGS: An AP, portable, upright chest radiograph is compared to study dated 11/24/2016. The examination is severely degraded by portable technique, large body habitus, motion artifact, and patient rotation. The heart is markedly enlarged and and there is pulmonary vascular congestion. Trace pleural effusions are suspected. No pneumothorax is identified. The skeletal structures are osteopenic. The bony thorax is grossly intact. IMPRESSION: 1. Cardiomegaly with evidence of mild congestive failure. 2. Suspect trace pleural effusions. 3. Significantly motion degraded examination. Electronically signed by: Ke Ojeda M.D. 12/04/2016 1:30 PM Dictated Date/Time: 12/04/2016 1:28 PM
[2016-12-04] MEDS ORDERED: FUROSEMIDE 40 MG/4 ML VIAL IV STA (13:35)
[2016-12-04] MEDS ORDERED: LACTULOSE SYRUP 20 GM/30 ML UDC PO STA (13:35)
[2016-12-04] MEDS ORDERED: SODIUM CHLORIDE 0.9% 500ML 500 ML IV STA (13:35)
[2016-12-04 13:41] LABS: THYROID STIMULATING HORMONE 0.954 uIu/ml (0.300-4.500)
[2016-12-04] MEDS ORDERED: POTASSIUM CHLORIDE 10 MEQ / 100ML WTR IV STA (13:48)
[2016-12-04 14:24] LABS: URINE APPEARANCE CLEAR (CLEAR); URINE BILIRUBIN NEG (NEG); URINE COLOR YELLOW; URINE NITRITE NEG (NEG); URINE PH 8.5 (4.5-7.5); URINE SPECIFIC GRAVITY 1.014 (1.000-1.030); UROBILINOGEN NEG (NEG)
[2016-12-04 14:27] LABS: MANUAL MICROSCOPIC REQUIRED? NO; REVIEW REQ? NO
[2016-12-04] MEDS ORDERED: POLYETHYLENE (MIRALAX) 17 GM PACK PO PRN (14:45)
[2016-12-04] MEDS ORDERED: ALUMINUM/MAGNESIUM/SIMETH (MAALOX MAX) 30 ML UDC PO PRN (14:45)
[2016-12-04] MEDS ORDERED: MAGNESIUM HYDROXIDE SUSP 30 ML UDC PO PRN (14:45)
[2016-12-04] MEDS ORDERED: ONDANSETRON INJ 2 MG/ML 2 ML VIAL IV PRN (14:45)
[2016-12-04] MEDS ORDERED: NYSP TOP (14:55)
[2016-12-04] MEDS ORDERED: POTA20TA13 PO ×2 (14:56)
[2016-12-04] MEDS ORDERED: GLUCAGON FOR INJ 1 MG VIAL SQ PRN (15:15)
[2016-12-04] MEDS ORDERED: DEXTROSE 50% 50 ML SYR IV PRN (15:15)
[2016-12-04] MEDS ORDERED: GLUCOSE 10 TABS/TUBE PO PRN (15:15)
[2016-12-04] MEDS ORDERED: GLUCOSE 40% GEL 15 GM TUBE PO PRN (15:15)
--- NOTE | 2016-12-04 15:34 | History and Physical ---
History & Physical Date & Time of Service: Dec 04, 2016 at 15:00 Chief Complaint: Ams/ Poss. Sepsis/ [facility] Primary Care Physician: Bin Patel M.D. History of Present Illness Source: patient, hospital records, other ([facility] records) This is a 61 y/o female with a history of diastolic CHF, respiratory failure, DM II, HTN, seizure disorder, bipolar disorder, and paranoid schizophrenia who presented to the ED on 12/04 with altered mental status, lethargy and fever. The patient had just recently been discharged from [facility] on 12/02 to [facility] with the principal diagnosis of weakness. Today the patient reportedly had a fever while at [facility] and was showing increased lethargy and altered mental status. I was unable to obtain a reliable ROS from the patient due to her mental status, and there is no family at bedside. The patient simply states that she is "feeling better" and is denying any complaints when asked. She also denies having any bowel movements recently, despite the fact that she should be taking lactulose 3 times a day. Past Medical/Surgical History Medical Problems: (1) ACUTE RENAL FAILURE NOS Status: Resolved (2) BIPOL I DIS, SING MANIC EPIS, SEVERE, SPEC W PSYCHOTIC BEHAV Status: Chronic (3) CONGESTIVE HEART FAILURE NOS Status: Chronic (4) DIAB ROSA WO COMPL, TYPE II OR UNSPEC TYPE, NOT UNCNTRLD Status: Chronic Family History FH: HTN (hypertension) FH: diabetes mellitus Heart disease Social History Smoking Status: Never Smoker Smokeless Tobacco Use: No Alcohol Use: none Drug Use: none Marital Status: Housing status: other ([facility] rehab) Occupational Status: retired Immunizations History of Influenza Vaccine: Unknown Influenza Vaccine Date: Sep 27, 2009 History of Tetanus Vaccine?: Unknown History of Pneumococcal: No Pneumococcal Date: Jun 28, 2007 History of Hepatitis B Vaccine: Unknown Multi-Drug Resistant 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, MRSA Allergies Coded Allergies: Penicillins (Unverified Allergy, Unknown, unknown, 12/04/16) Home Medications Scheduled Benzonatate (Tessalon Perles), 200 MG PO Q8 Cholecalciferol (Vitamin D3), 1,000 INTER.UNIT PO QAM Furosemide (Furosemide), 80 MG PO BID Insulin Aspart (Novolog), 0 SQ UD Insulin Glargine (Lantus Solostar), 10 UNIT SC Q12 Ipratropium-Albuterol (Combivent Respimat), 1 PUFFS INH QID Levetiractam (Levetiracetam), 500 MG PO BID Lisinopril (Lisinopril), 5 MG PO QAM [place] Carbonate (Lithobid Ext Rel), 600 MG PO HS [place] Carbonate ([place] Carbonate), 300 MG PO BID Magnesium Oxide (Mag-Ox), 400 MG PO QAM Metolazone (Metolazone), 5 MG PO DAILY Nystatin (Nystop), 1 APPLN TOP BID Potassium Chloride Microencaps (Potassium Chloride Er), 2 TABS PO PM Potassium Chloride Microencaps (Potassium Chloride Er), 3 TAB PO QAM Review of Systems Unable to obtain reliable ROS from patient due to mental status. Denies all complaints and keeps saying she is "feeling better" Physical Exam Vital Signs Date Time Temp Pulse Resp B/P (MAP) Pulse Ox O2 Delivery O2 Flow Rate FiO2 12/04/16 13:59 37.3 82 20 110/54 100 Nasal Cannula 2.0 12/04/16 13:55 37.2 12/04/16 12:51 88 12/04/16 12:24 96 Nasal Cannula 2.0 12/04/16 12:06 37.2 88 16 118/72 95 Nasal Cannula 2.0 General appearance: +Obese. Lethargic. Well-developed, well-nourished, no apparent distress Head: Normocephalic, atraumatic Eyes: +Exophthalmos. PERRL, EOMI ENT: Normal ENT inspection, hearing grossly normal, pharynx normal Neck: Supple, no JVD, trachea midline Respiratory/Chest: +Exam limited by poor respiratory effort/difficulty following commands. Lungs clear to auscultation, normal breath sounds, no respiratory distress Cardiovascular: Regular rate & rhythm, no gallop, no murmur Abdomen/GI: +Umbilical hernia. Normal bowel sounds, non-tender, soft Extremities/Musculoskeletal: +In Jaydno hose. Normal inspection, no calf tenderness, no pedal edema Neurological/Psych: +Lethargic. Slow to respond to questions, does not answer some questions. Appears to be falling asleep during examination but will rouse easily. Disoriented to place and time, but she is aware that she came from [facility]. Normal mood/affect, oriented x 1 (self) Skin: Normal color, warm/dry, no rash Diagnostics Laboratory Results Results Past 24 Hours Test 12/04/16 11:40 12/04/16 11:51 12/04/16 13:52 Range/Units White Blood Count 8.09 4.8-10.8 K/uL Red Blood Count 4.72 4.2-5.4 M/uL Hemoglobin 13.0 12.0-16.0 g/dL Hematocrit 44.2 37-47 % Mean Corpuscular Volume 93.6 80-100 fL Mean Corpuscular Hemoglobin 27.5 25-34 pg Mean Corpuscular Hemoglobin Concent 29.4 32-36 g/dl Platelet Count 223 130-400 K/uL Mean Platelet Volume 10.3 7.4-10.4 fL Neutrophils (%) (Auto) 79.3 % Lymphocytes (%) (Auto) 12.1 % Monocytes (%) (Auto) 7.4 % Eosinophils (%) (Auto) 0.9 % Basophils (%) (Auto) 0.1 % Neutrophils # (Auto) 6.41 1.4-6.5 K/uL Lymphocytes # (Auto) 0.98 1.2-3.4 K/uL Monocytes # (Auto) 0.60 0.11-0.59 K/uL Eosinophils # (Auto) 0.07 0-0.5 K/uL Basophils # (Auto) 0.01 0-0.2 K/uL RDW Standard Deviation 51.4 36.4-46.3 fL RDW Coefficient of Variation 15.0 11.5-14.5 % Immature Granulocyte % (Auto) 0.2 % Immature Granulocyte # (Auto) 0.02 0.00-0.02 K/uL Prothrombin Time 11.0 9.0-12.0 SECONDS Prothromb Time International Ratio 1.0 0.9-1.1 Activated Partial Thromboplast Time 24.3 21.0-31.0 SECONDS Partial Thromboplastin Ratio 0.9 Sodium Level 135 136-145 mmol/L Potassium Level 3.1 3.5-5.1 mmol/L Chloride Level 91 98-107 mmol/L Carbon Dioxide Level 39 21-32 mmol/L Anion Gap 5.0 3-11 mmol/L Blood Urea Nitrogen 26 7-18 mg/dl Creatinine 1.10 0.60-1.20 mg/dl Est Creatinine Clear Calc Drug Dose 60.5 ml/min Estimated GFR () 62.8 Estimated GFR (Non- 54.1 BUN/Creatinine Ratio 24.0 10-20 Random Glucose 228 70-99 mg/dl Calcium Level 11.6 8.5-10.1 mg/dl Magnesium Level 2.3 1.8-2.4 mg/dl Total Bilirubin 0.5 0.2-1 mg/dl Direct Bilirubin 0.1 0-0.2 mg/dl Aspartate Amino Transf (AST/SGOT) 28 15-37 U/L Alanine Aminotransferase (ALT/SGPT) 25 12-78 U/L Alkaline Phosphatase 99 45-117 U/L Troponin I 0.017 0-0.045 ng/ml Total Protein 8.2 6.4-8.2 gm/dl Albumin 3.7 3.4-5.0 gm/dl Lipase 168 73-393 U/L Thyroid Stimulating Hormone (TSH) 0.954 0.300-4.500 uIu/ml Burk[place] Level 2.4 0.6-1.2 mMOL/L Venous Blood pH 7.40 7.36-7.41 Venous Blood Partial Pressure CO2 74 38.0-50.0 mmHg Venous Blood Partial Pressure O2 60 mmHg Venous Blood HCO3 45 mmol/L Venous Blood Oxygen Saturation 89.8 % Venous Blood Base Excess 16.1 mmol/L Lactic Acid Level 0.9 0.4-2.0 mmol/L Ammonia 63.0 11-32 umol/L Urine Color YELLOW Urine Appearance CLEAR CLEAR Urine pH 8.5 4.5-7.5 Urine Specific [place] 1.014 1.000-1.030 Urine Protein NEG NEG Urine Glucose (UA) NEG NEG Urine Ketones NEG NEG Urine Occult Blood NEG NEG Urine Nitrite NEG NEG Urine Bilirubin NEG NEG Urine Urobilinogen NEG NEG Urine Leukocyte Esterase NEG NEG Microbiology Results 12/04/16 Blood Culture, Received Pending 12/04/16 Blood Culture, Received Pending 12/04/16 Urine Culture, Received Pending Diagnostic Radiology Reviewed the following studies and agree with interpretation as follows: Patient Name: CHARITY BARRIOS Unit Number: [id number] Dictated: 12/04/161322 Transcribed: 06/24/17 1323 EV Printed Date/Time: [~ rep prt dt]/[~ rep prt tm] [~ rep ct labl] - [~ rep ct ivnm] [facility] Radiology Department [place], [place] [id number] Dictated: 12/04/161322 Transcribed: 12/04/16 132 EV Printed Date/Time: [~ rep prt dt]/[~ rep prt tm] [~ rep ct labl] - [~ rep ct ivnm] Patient: CHARITY BARRIOS Address1: [address] [place], [place] [address]ILDA Chary [facility] Rec: [id number] Address2: [facility] [address] Acct ID: [id number] [facility] Zip: [place] [address] Date: 1955 Sex: F Room/Bed: Ref Phy: Ilan Mills DO SC: CMarco AntonioEDB Att Phy: Report #: [id number] Shoshana Phy: Bin Patel M.D. Test: HWO Admit Phy: Industrial Training Specialist: EDILBERTO Interpreting Phy: Ke Ojeda M.D. Diagnosis: AMS/ POSS. SEPSIS/ [facility] Ordering Phy: Nadeem Fulton MD Service Date: 12/04/16 Admit Date: 12/04/16 MNE: PWRSCRIBE CONF: DICTATED BY: Ke Ojeda M.D.]] CC: Bin Patel M.D. Lesko, Michael G., Nadeem Lobo MD Endcc: [~ rep ct add3]] CT SCAN OF THE BRAIN WITHOUT IV CONTRAST CLINICAL HISTORY: Generalized weakness. Lethargy. COMPARISON STUDY: CT the brain dated 11/24/2016. MRI of the brain dated 11/25/2016. TECHNIQUE: Unenhanced axial CT scan of the brain is performed from the vertex to the skull base. Automated dose control exposure was utilized. CT DOSE: 537.48 mGy.cm FINDINGS: Brain parenchyma: The brain parenchyma is normal in appearance. There is no hemorrhage, mass effect, or evidence of acute territorial ischemia by CT criteria. Hughes-white matter is preserved. No extra-axial fluid collection is seen. Ventricles, sulci, cisterns: Normal in configuration. Intracranial vasculature: There is mild atherosclerotic calcification of the cavernous carotid arteries. Calvarium: Unremarkable. Sinuses and mastoids: The visualized paranasal sinuses are clear. The mastoid air cells are well pneumatized. Orbits: The bony orbits are grossly intact. IMPRESSION: There is no hemorrhage, mass effect, or evidence of acute territorial ischemia by CT criteria. Electronically signed by: Ke Ojeda M.D. 12/04/2016 1:25 PM Dictated Date/Time: 12/04/2016 1:23 PM The status of this report is Signed. Draft = Not yet reviewed or approved by Radiologist. Signed = Reviewed and approved by Radiologist. <AttendingPhy></AttendingPhy> <FamilyPhy>Ilan Mills, </FamilyPhy> < PrimaryPhy>Bin Patel M.D.</PrimaryPhy> <UnitNumber>[id number]</ UnitNumber> <VisitNumber>[id number]</VisitNumber> <PatientName>CHARITY BARRIOS [place] </PatientName> <DateOfBirth>1955</DateOfBirth> <Location>C.EDB</Location> <ServiceDate>12/04/16</ServiceDate> <MNE>ESINDI</MNE> <OrderingPhy>Nadeem Fulton MD</OrderingPhy> <OrderingPhyMNE>f rep ord dr edward</OrderingPhyMNE> < DictatingPhyMNE>f rep dict dr edward</DictatingPhyMNE> <CCListMNE>f rep ct wagner</ CCListMNE> <AdmittingPhyMNE>f pt admit dr edward</AdmittingPhyMNE> <AttendingPhyMNE >f pt attend dr edward</AttendingPhyMNE> <ConsultingPhyMNE>f pt consult dr edward</ConsultingPhyMNE> <FamilyPhyMNE>f pt fam dr edward</FamilyPhyMNE> <OtherPhyMNE>f pt other dr edward</OtherPhyMNE> < PrimaryPhyMNE>f pt prim care dr edward</PrimaryPhyMNE> <ReferringPhyMNE>f pt referring dr edward</ReferringPhyMNE> Patient Name: CHARITY BARRIOS Unit Number: [id number] Dictated: 12/04/161327 Transcribed: 12/04/161327 EV Printed Date/Time: [~ rep prt dt]/[~ rep prt tm] [~ rep ct labl] - [~ rep ct ivnm] [facility] [place] [address] Dictated: 12/04/161327 Transcribed: 12/04/161327 EV Printed Date/Time: [~ rep prt dt]/[~ rep prt tm] [~ rep ct labl] - [~ rep ct ivnm] Patient: CHARITY BARRIOS Address1: [address] [place] [address] Rec: [id number] Address2: [place] [address] Acct ID: [id number] [facility] Zip: [place] [address] Date: 1955 Sex: F Room/Bed: Ref Phy: Ilan Mills DO SC: CMarco AntonioEDB Att Phy: Report #: [id number] Shoshana Phy: Bin Patel M.D. Test: CXR1P Admit Phy: Industrial Training Specialist: AMISH Interpreting Phy: Ke Ojeda M.D. Diagnosis: AMS/ POSS. SEPSIS/ [facility] Ordering Phy: Nadeem Fulton MD Service Date: 12/04/16 Admit Date: 12/04/16 MNE: PWRSCRIBE CONF: DICTATED BY: Ke Ojeda M.D.]] CC: Bin Patel M.D. Lesko, Michael G., DO Maciejczyk, John F., MD Endcc: [~ rep ct add3]] SINGLE VIEW CHEST CLINICAL HISTORY: Generalized weakness. FINDINGS: An AP, portable, upright chest radiograph is compared to study dated 11/24/2016. The examination is severely degraded by portable technique, large body habitus, motion artifact, and patient rotation. The heart is markedly enlarged and and there is pulmonary vascular congestion. Trace pleural effusions are suspected. No pneumothorax is identified. The skeletal structures are osteopenic. The bony thorax is grossly intact. IMPRESSION: 1. Cardiomegaly with evidence of mild congestive failure. 2. Suspect trace pleural effusions. 3. Significantly motion degraded examination. Electronically signed by: Ke Ojeda M.D. 12/04/2016 1:30 PM Dictated Date/Time: 12/04/2016 1:28 PM The status of this report is Signed. Draft = Not yet reviewed or approved by Radiologist. Signed = Reviewed and approved by Radiologist. <AttendingPhy></AttendingPhy> <FamilyPhy>Ilan Mills, </FamilyPhy> < PrimaryPhy>Bin Patel M.D.</PrimaryPhy> <UnitNumber>[id number]</ UnitNumber> <VisitNumber>[id number]</VisitNumber> <PatientName>SOPHIECHARITY O </PatientName> <DateOfBirth>1955</DateOfBirth> <Location>C.EDB</Location> <ServiceDate>12/04/16</ServiceDate> <MNE>ESINDI</MNE> <OrderingPhy>Nadeem Fulton MD</OrderingPhy> <OrderingPhyMNE>f rep ord dr edward</OrderingPhyMNE> < DictatingPhyMNE>f rep dict dr edward</DictatingPhyMNE> <CCListMNE>f rep ct wagner</ CCListMNE> <AdmittingPhyMNE>f pt admit dr edward</AdmittingPhyMNE> <AttendingPhyMNE >f pt attend dr edward</AttendingPhyMNE> <ConsultingPhyMNE>f pt consult dr edward</ConsultingPhyMNE> <FamilyPhyMNE>f pt fam dr edward</FamilyPhyMNE> <OtherPhyMNE>f pt other dr edward</OtherPhyMNE> < PrimaryPhyMNE>f pt prim care dr edward</PrimaryPhyMNE> <ReferringPhyMNE>f pt referring dr edward</ReferringPhyMNE> EKG Reviewed EKG and agree with interpretation as follows: 157 bpm, poor quality data, undetermined rhythm Monitor strip on chart shows 88 bpm, sinus rhythm Impression Assessment and Plan 61 y/o female with a history of diastolic CHF, respiratory failure, DM II, HTN, seizure disorder, bipolar disorder, and paranoid schizophrenia who presented to the ED on 12/04 with altered mental status, lethargy and fever. Unclear whether pt truly febrile, as [facility] records seem to indicate a normal temperature on 12/04 in [employer]INE[employer]NA[employer] progress note. Pt afebrile upon arrival to ED, VSS. Head CT negative for acute findings. CXR shows mild congestive failure and suspected trace pleural effusions. Pt received IVF bolus 500 cc as well as 1 dose lactulose, KCl 10 mEq IV x 1 and 1 dose Lasix 40 mg IV. Lethargy/metabolic encephalopathy, likely secondary to lithium toxicity -Admit to telemetry -[place] level 2.4 on arrival -Hold home lithium -Dysphagia screening prior to given food trays due to AMS -Urine and blood cultures pending from ED to rule out infectious cause although UA negative -WBC WNL, afebrile, lactic acid negative -TSH WNL -PT/OT evaluate and treat Hypercalcemia likely secondary to lithium toxicity -Calcium 11.6 on arrival -Check PTH and vitamin D levels to rule out other causes -Gentle IVF with NSS at 50 cc/hr -Continue to monitor Hyperammonemia--unclear if pt was receiving lactulose at [facility] as it is not listed as a med in the [facility] H&P, although it was in the discharge summary from 12/02 -Ammonia 63 on arrival -Lactulose 30 gm PO TID -Continue to monitor Hypokalemia -Potassium 3.1 on arrival, received 10 mEq IV in ED -Additional KCl 10 mEq IV x 3 doses -Continue to monitor ?Mild exacerbation of chronic diastolic CHF -Continue Lasix 80 mg PO BID and metolazone 5 mg PO qd -Continue home potassium supplement H/o respiratory failure -Continue CPAP at night -Continue Combivent QID Diabetes mellitus type 2--last HgbA1c checked 11/30/16 was 7.4 -Continue Lantus 10 units SC BID -Insulin sliding scale -Check BSGs q ac and qhs HTN--stable -Continue lisinopril 5 mg PO qd Seizure disorder -Continue levetiracetam 500 mg PO BID Bipolar disorder, paranoid schizophrenia -Hold lithium for now due to toxic levels DVT prophylaxis -Enoxaparin 40 mg SC q24h -JAYDON smith and SCDs Code Status -Level I, FULL RESUSCITATION STATUS Level of Care Telemetry Resuscitation Status FULL RESUSCITATION VTE Prophylaxis VTE Risk Assessment Done? Y/N: Yes Risk Level: Moderate Given or contraindicated: Enoxaparin (Lovenox)SQ, T.E.D. Stockings, SCD's Reviewed: Pt Seen/Exam by Me History Pt is requesting to have a bowel movement, but states she is fine otherwise. is not present during my exam. Agree with HPI/ROS as noted above. General Appearance: no apparent distress, obese, other (ill appearing) Eye Exam: bilateral eye normal inspection Respiratory: normal breath sounds (with poor inspiratory effort on anterior exam), no respiratory distress Cardiovascular: normal peripheral pulses, regular rate, rhythm Gastrointestinal: non tender, soft Extremities: non-tender, no pedal edema 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: alert (answers questions but minimally), other (neg for facial droop, moving all extremities) Skin Characteristics: normal color, warm/dry Assessment/Plan Agree with plan as outlined above Reportedly febrile at [facility], however afebrile here HyperCa with elevated lithium levels Dosing does not appear to have been changed, however reports pt had not been receiving lactulose and now with elevated ammonia levels Possibly elevated lithium was related to change in bowel movements and has lead to hyperCa PTH, vit D pending t/c soft tissue US of neck if abn labs Gentle IVF given hx of CHF and lasix use with CXR noted HypoK, replete and monitor
[2016-12-04 15:50] VITALS: O2SAT 96; Ht 162.6 cm; Wt 94.5 kg
[2016-12-04 17:10] VITALS: BP 100/57; PULSE 98; TEMP 37.3; O2SAT 98
[2016-12-04] MEDS: POTASSIUM CHLR 10 MEQ / WTR 10 MEQ in PREMIXED WATER 100 ML IV SCH ×3 (18:19→21:39)
[2016-12-04] MEDS: SODIUM CHLORIDE 0.9% 1000ML 1,000 ML IV SCH (18:19)
[2016-12-04] MEDS: FUROSEMIDE 80 MG TAB PO SCH (18:19)
[2016-12-04] MEDS: POTASSIUM CHLORIDE 20 MEQ TABCR PO SCH (18:20)
[2016-12-04] MEDS: IPRATROPIUM BROMIDE/ALBUTEROL respimat INH INH SCH ×2 (18:24→21:14)
--- NOTE | 2016-12-04 18:35 | EMERGENCY ROOM VISIT NOTE ---
History Report prepared by Jada: Tonny Galvin Under the Supervision of: Dr. Nadeem Fulton M.D. First contact with patient: 12:12 Chief Complaint: OTHER COMPLAINT Stated Complaint: AMS/ POSS. SEPSIS/ [facility] History of Present Illness The patient is a 61 year old female who presents to the Emergency Room by EMS with complaints of a persistent fever beginning today. She was recently admitted to [facility] after a TIA and new onset seizures. She was taken to the ED from [facility] due to increasing lethargy and a fever. The patient complains of left arm and shoulder pain. She has a history of CHF. She is on 2L of oxygen at night. Per , the patient had a lot of her medications changed while at [facility] and feels that this may be responsible for her lethargy. He notes that she has not had a bowel movement in a while. He denies any vomiting, SOB, chest pain, headache, abdominal pain, or bloody stools. He states that the patient has had a decreased appetite recently. HPI limited secondary to altered mental status. Source of History: patient, spouse/significant other () History Limited By: AMS Onset: Today Quality: other (fever) Timing: other (persistent) Associated Symptoms: No chest pain, No SOB Note: The patient's also include increased lethargy. Review of Systems ROS limited secondary to altered mental status. Past Medical & Surgical Medical Problems: (1) ACUTE RENAL FAILURE NOS (2) Acute respiratory failure with hypoxia and hypercapnia (3) Altered mental status (4) BIPOL I DIS, SING MANIC EPIS, SEVERE, SPEC W PSYCHOTIC BEHAV (5) CONGESTIVE HEART FAILURE NOS (6) DIAB ROSA WO COMPL, TYPE II OR UNSPEC TYPE, NOT UNCNTRLD (7) Lethargy (8) Bonneau toxicity (9) Seizure-like activity (10) Seizure-like activity (11) Weakness Family History FH: HTN (hypertension) FH: diabetes mellitus Heart disease Social History Smoking Status: Former Smoker Alcohol Use: none Drug Use: none Marital Status: Housing Status: lives with family Occupation Status: retired Current/Historical Medications Scheduled Benzonatate (Tessalon Perles), 200 MG PO Q8 Cholecalciferol (Vitamin D3), 1,000 INTER.UNIT PO QAM Furosemide (Furosemide), 80 MG PO BID Insulin Aspart (Novolog), 0 SQ UD Insulin Glargine (Lantus Solostar), 10 UNIT SC Q12 Ipratropium-Albuterol (Combivent Respimat), 1 PUFFS INH QID Levetiractam (Levetiracetam), 500 MG PO BID Lisinopril (Lisinopril), 5 MG PO QAM Bonneau Carbonate (Lithobid Ext Rel), 600 MG PO HS Bonneau Carbonate (Bonneau Carbonate), 300 MG PO BID Magnesium Oxide (Mag-Ox), 400 MG PO QAM Metolazone (Metolazone), 5 MG PO DAILY Nystatin (Nystop), 1 APPLN TOP BID Potassium Chloride Microencaps (Potassium Chloride Er), 2 TABS PO PM Potassium Chloride Microencaps (Potassium Chloride Er), 3 TAB PO QAM Allergies Coded Allergies: Penicillins (Unverified Allergy, Unknown, unknown, 12/04/16) Physical Exam Vital Signs Date Time Temp Pulse Resp B/P (MAP) Pulse Ox O2 Delivery O2 Flow Rate FiO2 12/04/16 13:59 37.3 82 20 110/54 100 Nasal Cannula 2.0 12/04/16 13:55 37.2 12/04/16 12:51 88 12/04/16 12:24 96 Nasal Cannula 2.0 12/04/16 12:06 37.2 88 16 118/72 95 Nasal Cannula 2.0 Physical Exam GENERAL: Awake, alert, tired-appearing, in no distress HENT: Normocephalic, atraumatic. Oropharynx unremarkable. EYES: Normal conjunctiva. Sclera non-icteric. NECK: Supple. No nuchal rigidity. FROM. No JVD. RESPIRATORY: Clear to auscultation. CARDIAC: Regular rate, normal rhythm. Extremities warm and well perfused. Pulses equal. ABDOMEN: Soft, non-distended. No tenderness to palpation. No rebound or guarding. Umbilical hernia which is non-tender and reducible. RECTAL: Deferred. MUSCULOSKELETAL: Chest examination reveals no tenderness. The back is symmetrical on inspection without obvious abnormality. There is no CVA tenderness to palpation. No joint edema. LOWER EXTREMITIES: Calves are equal size bilaterally and non-tender. No discoloration. Trace lower extremity edema. NEURO: No sensory or motor deficits noted. Speech is thick and mildly slurred. Mildly confused sensorium. SKIN: No rash or jaundice noted. Medical Decision & Procedures ER Provider Diagnostic Interpretation: Radiology results as stated below per my review and radiologist interpretation: CT SCAN OF THE BRAIN WITHOUT IV CONTRAST FINDINGS: Brain parenchyma: The brain parenchyma is normal in appearance. There is no hemorrhage, mass effect, or evidence of acute territorial ischemia by CT criteria. Hughes-white matter is preserved. No extra-axial fluid collection is seen. Ventricles, sulci, cisterns: Normal in configuration. Intracranial vasculature: There is mild atherosclerotic calcification of the cavernous carotid arteries. Calvarium: Unremarkable. Sinuses and mastoids: The visualized paranasal sinuses are clear. The mastoid air cells are well pneumatized. Orbits: The bony orbits are grossly intact. IMPRESSION: There is no hemorrhage, mass effect, or evidence of acute territorial ischemia by CT criteria. Electronically signed by: Ke Ojeda M.D. SINGLE VIEW CHEST FINDINGS: An AP, portable, upright chest radiograph is compared to study dated 11/24/2016. The examination is severely degraded by portable technique, large body habitus, motion artifact, and patient rotation. The heart is markedly enlarged and and there is pulmonary vascular congestion. Trace pleural effusions are suspected. No pneumothorax is identified. The skeletal structures are osteopenic. The bony thorax is grossly intact. IMPRESSION: 1. Cardiomegaly with evidence of mild congestive failure. 2. Suspect trace pleural effusions. 3. Significantly motion degraded examination. Electronically signed by: Ke Ojeda M.D. Laboratory Results 12/04/16 11:40 Red Blood Count 4.72, Mean Corpuscular Volume 93.6, Mean Corpuscular Hemoglobin 27.5, Mean Corpuscular Hemoglobin Concent 29.4, Mean Platelet Volume 10.3, Neutrophils (%) (Auto) 79.3, Lymphocytes (%) (Auto) 12.1, Monocytes (%) (Auto) 7.4, Eosinophils (%) (Auto) 0.9, Basophils (%) (Auto) 0.1, Neutrophils # (Auto) 6.41, Lymphocytes # (Auto) 0.98, Monocytes # (Auto) 0.60, Eosinophils # (Auto) 0.07, Basophils # (Auto) 0.01 12/04/16 11:40 Test 12/04/16 11:40 12/04/16 11:51 12/04/16 13:52 White Blood Count 8.09 K/uL (4.8-10.8) Red Blood Count 4.72 M/uL (4.2-5.4) Hemoglobin 13.0 g/dL (12.0-16.0) Hematocrit 44.2 % (37-47) Mean Corpuscular Volume 93.6 fL (80-100) Mean Corpuscular Hemoglobin 27.5 pg (25-34) Mean Corpuscular Hemoglobin Concent 29.4 g/dl (32-36) Platelet Count 223 K/uL (130-400) Mean Platelet Volume 10.3 fL (7.4-10.4) Neutrophils (%) (Auto) 79.3 % Lymphocytes (%) (Auto) 12.1 % Monocytes (%) (Auto) 7.4 % Eosinophils (%) (Auto) 0.9 % Basophils (%) (Auto) 0.1 % Neutrophils # (Auto) 6.41 K/uL (1.4-6.5) Lymphocytes # (Auto) 0.98 K/uL (1.2-3.4) Monocytes # (Auto) 0.60 K/uL (0.11-0.59) Eosinophils # (Auto) 0.07 K/uL (0-0.5) Basophils # (Auto) 0.01 K/uL (0-0.2) RDW Standard Deviation 51.4 fL (36.4-46.3) RDW Coefficient of Variation 15.0 % (11.5-14.5) Immature Granulocyte % (Auto) 0.2 % Immature Granulocyte # (Auto) 0.02 K/uL (0.00-0.02) Prothrombin Time 11.0 SECONDS (9.0-12.0) Prothromb Time International Ratio 1.0 (0.9-1.1) Activated Partial Thromboplast Time 24.3 SECONDS (21.0-31.0) Partial Thromboplastin Ratio 0.9 Anion Gap 5.0 mmol/L (3-11) Est Creatinine Clear Calc Drug Dose 60.5 ml/min Estimated GFR () 62.8 Estimated GFR (Non- 54.1 BUN/Creatinine Ratio 24.0 (10-20) Calcium Level 11.6 mg/dl (8.5-10.1) Magnesium Level 2.3 mg/dl (1.8-2.4) Total Bilirubin 0.5 mg/dl (0.2-1) Direct Bilirubin 0.1 mg/dl (0-0.2) Aspartate Amino Transf (AST/SGOT) 28 U/L (15-37) Alanine Aminotransferase (ALT/SGPT) 25 U/L (12-78) Alkaline Phosphatase 99 U/L (45-117) Troponin I 0.017 ng/ml (0-0.045) Total Protein 8.2 gm/dl (6.4-8.2) Albumin 3.7 gm/dl (3.4-5.0) Lipase 168 U/L (73-393) 25-Hydroxy Vitamin D Total 28.3 ng/ml (30-100) Thyroid Stimulating Hormone (TSH) 0.954 uIu/ml (0.300-4.500) Bonneau Level 2.4 mMOL/L (0.6-1.2) Venous Blood pH 7.40 (7.36-7.41) Venous Blood Partial Pressure CO2 74 mmHg (38.0-50.0) Venous Blood Partial Pressure O2 60 mmHg Venous Blood HCO3 45 mmol/L Venous Blood Oxygen Saturation 89.8 % Venous Blood Base Excess 16.1 mmol/L Lactic Acid Level 0.9 mmol/L (0.4-2.0) Ammonia 63.0 umol/L (11-32) Urine Color YELLOW Urine Appearance CLEAR (CLEAR) Urine pH 8.5 (4.5-7.5) Urine Specific [place] 1.014 (1.000-1.030) Urine Protein NEG (NEG) Urine Glucose (UA) NEG (NEG) Urine Ketones NEG (NEG) Urine Occult Blood NEG (NEG) Urine Nitrite NEG (NEG) Urine Bilirubin NEG (NEG) Urine Urobilinogen NEG (NEG) Urine Leukocyte Esterase NEG (NEG) Laboratory results reviewed by me Medications Administered Medications (Trade) Dose Ordered Sig/Nanette Route Start Time Stop Time Status Last Admin Dose Admin Sodium Chloride 1,000 ml @ 125 mls/hr Q8H STAT IV 12/04/16 12:17 12/04/16 14:20 DC 12/04/16 12:17 125 MLS/HR Furosemide (Lasix Inj) 40 mg NOW STAT IV 12/04/16 13:35 12/04/16 13:36 DC 12/04/16 14:02 40 MG Sodium Chloride 500 ml @ 999 mls/hr Q31M STAT IV 12/04/16 13:35 12/04/16 14:05 DC 12/04/16 14:01 999 MLS/HR Lactulose (Chronulac Syrup) 30 gm NOW STAT PO 12/04/16 13:35 12/04/16 13:36 DC 12/04/16 14:12 30 GM Potassium Chloride (Kcl 10 Meq / Wtr) 10 meq NOW STAT IV 12/04/16 13:48 12/04/16 13:49 DC 12/04/16 14:11 10 MEQ Sodium Chloride 1,000 ml @ 200 mls/hr Q5H STAT IV 12/04/16 14:19 12/04/16 17:40 DC 12/04/16 14:19 200 MLS/HR ECG Indication: altered mental status Rate (beats per minute): 78 Rhythm: sinus rhythm Findings: PVC, T-wave inversion (Anterolateral), other (Left atrial enlargement ) ED Course 1215: The patient was evaluated in room B8. A complete history and physical exam was performed. 1217: Ordered Sodium Chloride 1000 ml @ 125 mls/hr IV. 1335: Ordered Lactulose 30 gm PO, Sodium Chloride 500 ml @ 999 mls/hr IV, Lasix Inj 40 mg IV. 1342: I reassessed the patient. She is having a catheter placed. 1348: Ordered KCl 10 meq /Wtr 10 meq IV. 1350: Upon reexamination, the patient was resting comfortably. I discussed the test results and treatment plan with her. The patient will be evaluated for further management. 1420: Ordered Sodium Chloride 1000 ml @ 200 mls/hr IV. I increased the patient' s rate of IV fluids. Medical Decision Prior records/ancillary studies reviewed and summarized above. Nursing notes reviewed and agree them. Additional history obtained from the patient's . The patient's history was concerning for altered mental status. Differential diagnosis: Etiologies such as hyperammonemia, hypercarbia, infection, hypoglycemia, electrolyte abnormalities, cardiac sources, intracerebral event, toxicologic, neurologic, as well as others were entertained. Physical examination: As above. Benign abdomen. ER treatment provided: IV Lock Normal saline hydration at 125 mL an hour. our oral lactulose IV saline hydration and IV Lasix IV potassium On reassessment the patient felt better. Diagnostics interpretation by me: ECG: No acute ischemia normal intervals. The labs revealed an unremarkable CBC. ABG revealed an elevated CO2. Chemistry panel revealed some mild dehydration, hypercalcemia, and hypokalemia. Ammonia level was elevated. The patient had a moderate elevation of her lithium level. Imaging studies: Chest x-ray and CT scan as above The patient has hypercalcemia, hypokalemia, and hyperammonemia. These were treated as above. Urinalysis was obtained by catheter specimen and this was negative. She will need further evaluation and management in the hospital. The was updated and was in agreement with treatment. Consultation: A consultation was placed with the hospitalist. The case was discussed and diagnostics were reviewed. The patient was evaluated in the ER for further treatment. Consults Time Called: 1342 Consulting Physician: [facility] [place] Returned Call: [phone] Discussed the patient's case. The patient will be evaluated for further treatment and disposition. Impression Primary Impression: Altered mental status Additional Impressions: Hyperammonemia Hypercalcemia Hypercarbia Hypokalemia Bonneau toxicity Scribe Attestation The scribe's documentation has been prepared under my direction and personally reviewed by me in its entirety. I confirm that the note above accurately reflects all work, treatment, procedures, and medical decision making performed by me. Departure Information Dispostion Being Evaluated By Hospitalist Referrals Bin Patel M.D. (PCP) Patient Instructions My [facility] Problem Qualifiers
[2016-12-04 20:45] VITALS: BP 110/58; PULSE 78; TEMP 37.2; O2SAT 95
[2016-12-04] MEDS: INSULIN ASPART 100 UNITS/ML 3 ML PEN SC SCH (21:00)
[2016-12-04] MEDS: LEVETIRACETAM 500 MG TAB PO SCH (21:14)
[2016-12-04] MEDS: LACTULOSE SYRUP 30 GM/45 ML UDP PO SCH (21:14)
[2016-12-04] MEDS: ENOXAPARIN 40 MG/0.4 ML SYR SC SCH (21:14)
[2016-12-04] MEDS: BENZONATATE 100MG CAP PO SCH (21:14)
[2016-12-04] MEDS: NYSTATIN POWDER 15GM BTL EXT SCH (21:14)
[2016-12-04] MEDS: INSULIN GLARGINE SOLOSTAR 100 UNITS/ML 3 ML PEN SC SCH (21:22)
[2016-12-04 22:53] VITALS: PULSE 61; O2SAT 95
[2016-12-04 23:47] VITALS: BP 103/63; PULSE 86; TEMP 37.2; O2SAT 91
[2016-12-05] VITALS (10 sets, daily range): BP systolic 95–136; BP diastolic 54–74; PULSE 49–84; TEMP 36.6–37.2; O2SAT 93–97
[2016-12-05] MEDS: FUROSEMIDE 80 MG TAB PO SCH ×2 (05:47→17:19)
[2016-12-05] MEDS: BENZONATATE 100MG CAP PO SCH ×3 (05:47→22:10)
[2016-12-05 06:04] LABS: HEMATOCRIT 40.5 % (37-47); MEAN CELL VOLUME 93.5 fL (80-100); MEAN CORPUSCULAR HEMOGLOBIN 27.7 pg (25-34); MEAN CORPUSCULAR HGB CONC 29.6 g/dl (32-36); MEAN PLATELET VOLUME 10.1 fL (7.4-10.4); PLATELET COUNT 195 K/uL (130-400); RED BLOOD COUNT 4.33 M/uL (4.2-5.4); WHITE BLOOD COUNT 7.25 K/uL (4.8-10.8)
[2016-12-05 06:39] LABS: BUN/CREATININE RATIO 25.4 (10-20); CREATININE 0.98 mg/dl (0.60-1.20)
[2016-12-05] MEDS: INSULIN ASPART 100 UNITS/ML 3 ML PEN SC SCH ×4 (07:00→20:23)
[2016-12-05 07:17] LABS: CALCIUM 10.5 mg/dl (8.5-10.1)
[2016-12-05] MEDS: NYSTATIN POWDER 15GM BTL EXT SCH ×2 (08:53→21:00)
[2016-12-05] MEDS: IPRATROPIUM BROMIDE/ALBUTEROL respimat INH INH SCH ×4 (08:54→20:12)
[2016-12-05] MEDS: LACTULOSE SYRUP 30 GM/45 ML UDP PO SCH ×3 (08:55→20:12)
[2016-12-05] MEDS: METOLAZONE 5 MG TAB PO SCH (08:57)
[2016-12-05] MEDS: POTASSIUM CHLORIDE 20 MEQ TABCR PO SCH ×2 (08:58→17:19)
[2016-12-05] MEDS: LEVETIRACETAM 500 MG TAB PO SCH ×2 (08:59→20:12)
[2016-12-05] MEDS: MAGNESIUM OXIDE 400 MG TAB PO SCH (08:59)
[2016-12-05] MEDS: LISINOPRIL 5 MG TAB PO SCH (08:59)
[2016-12-05] MEDS: INSULIN GLARGINE SOLOSTAR 100 UNITS/ML 3 ML PEN SC SCH ×2 (09:04→20:22)
[2016-12-05] MEDS ORDERED: VANCOMYCIN INJ 1,000 MG in SODIUM CHLORIDE 0.9% 250ML 250 ML IV STA (10:04)
[2016-12-05] MEDS ORDERED: VANCOMYCIN CONSULT ACTIVE PRN (10:15)
[2016-12-05] MEDS ORDERED: VANCOMYCIN INJ 2,400 MG in SODIUM CHLORIDE 0.9% 500ML 500 ML IV SCH (10:30)
[2016-12-05] MEDS ORDERED: POTASSIUM CHLORIDE 20 MEQ TABCR PO STA (12:40)
--- NOTE | 2016-12-05 13:15 | Progress Note ---
Subjective Date of Service: Dec 05, 2016. Subjective Pt evaluation today including: conversation w/ patient, physical exam, chart review, lab review seems to be doing better, still seems easily confused or distracted but knows she's in [facility]. arm still hurts can't really move it, notes some jerking myoclonic movements. otherwise no clear ros obtainble. still hasn't had BM. Problem List Medical Problems: (1) Change in mental status Status: Acute (2) CHF (congestive heart failure) Status: Acute (3) CHF (congestive heart failure) Status: Acute (4) CO2 retention Status: Acute (5) Fall Status: Acute (6) Hyperammonemia Status: Acute (7) Hyperammonemia Status: Acute (8) Hyperammonemia Status: Acute (9) Hypercalcemia Status: Acute (10) Hypercarbia Status: Acute (11) Hypercarbia Status: Acute (12) Hyperglycemia Status: Acute (13) Hypokalemia Status: Acute (14) Hypokalemia Status: Acute (15) Hyponatremia Status: Acute (16) Hyponatremia Status: Acute (17) Hyponatremia Status: Acute (18) Lower extremity weakness Status: Acute (19) Seizure Status: Acute (20) SOB (shortness of breath) Status: Acute (21) Weakness Status: Acute Review of Systems ROS otherwise negative except for as above Objective Vital Signs Date Time Temp Pulse Resp B/P (MAP) Pulse Ox O2 Delivery O2 Flow Rate FiO2 12/05/16 11:32 36.9 49 16 108/61 (77) 96 Nasal Cannula 2.0 12/05/16 07:39 37.2 67 14 114/66 (82) 97 Nasal Cannula 2.0 12/05/16 07:30 97 Nasal Cannula 2.0 12/05/16 04:00 Nasal Cannula 2.0 12/05/16 03:12 37.0 83 19 95/54 (68) 97 Nasal Cannula 2.0 12/05/16 00:00 BiPAP 12/04/16 23:47 37.2 86 20 103/63 (76) 91 BiPAP 12/04/16 22:53 61 95 2.0 12/04/16 20:45 37.2 78 16 110/58 (75) 95 Nasal Cannula 2.0 12/04/16 20:00 Nasal Cannula 2.0 12/04/16 17:10 37.3 98 18 100/57 (71) 98 Nasal Cannula 2.0 12/04/16 16:11 91 18 110/60 96 Nasal Cannula 2.0 12/04/16 15:50 96 Nasal Cannula 2.0 12/04/16 15:30 87 18 132/89 96 Nasal Cannula 2.0 12/04/16 13:59 37.3 82 20 110/54 100 Nasal Cannula 2.0 12/04/16 13:55 37.2 12/04/16 12:51 88 Physical Exam General Appearance: no apparent distress Eyes: EOMI ENT: hearing grossly normal Neck: trachea midline Respiratory/Chest: no respiratory distress, no accessory muscle use Abdomen: non tender (mildly distended), soft Extremities: + pertinent finding (L arm restricted ROM as before, occassional myoclonic jerking) 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, alert, normal mood/affect Skin: normal color, warm/dry Laboratory Results Last 24 Hours Test 12/04/16 13:52 12/04/16 15:25 12/04/16 20:44 12/05/16 05:49 Urine Color YELLOW Urine Appearance CLEAR Urine pH 8.5 Urine Specific [place] 1.014 Urine Protein NEG Urine Glucose (UA) NEG Urine Ketones NEG Urine Occult Blood NEG Urine Nitrite NEG Urine Bilirubin NEG Urine Urobilinogen NEG Urine Leukocyte Esterase NEG Parathyroid Hormone (Intact) 79.9 pg/mL Bedside Glucose 175 mg/dl White Blood Count 7.25 K/uL Red Blood Count 4.33 M/uL Hemoglobin 12.0 g/dL Hematocrit 40.5 % Mean Corpuscular Volume 93.5 fL Mean Corpuscular Hemoglobin 27.7 pg Mean Corpuscular Hemoglobin Concent 29.6 g/dl RDW Standard Deviation 52.7 fL RDW Coefficient of Variation 15.1 % Platelet Count 195 K/uL Mean Platelet Volume 10.1 fL Sodium Level 138 mmol/L Potassium Level 3.0 mmol/L Chloride Level 96 mmol/L Carbon Dioxide Level 38 mmol/L Anion Gap 4.0 mmol/L Blood Urea Nitrogen 25 mg/dl Creatinine 0.98 mg/dl Est Creatinine Clear Calc Drug Dose 67.2 ml/min Estimated GFR () 72.2 Estimated GFR (Non- 62.3 BUN/Creatinine Ratio 25.4 Random Glucose 189 mg/dl Calcium Level 10.5 mg/dl Ammonia 58.0 umol/L Test 12/05/16 06:59 12/05/16 10:34 Bedside Glucose 160 mg/dl 207 mg/dl Assessment and Plan Lethargy/metabolic encephalopathy, likely secondary to lithium toxicity and/or elevated ammonia -stable for transfer to med/surg -seems clinically improving -continue gentle IVF, repeat lithium level in AM -no electrolyte disturbances, no renal failure, no need for urgent intervention -?lithium toxicity cause -- possible interaction w toradol but was only on for short time, ??changed dose (will need interactive media marketing director records from [facility]) -conitnue to follow clinically Hypercalcemia likely secondary to lithium toxicity -Calcium 11.6 on arrival - now down to 10.5. PTH was somewhat elevated despite hypercalcemia so does appear to have some hyperpara -continue to follow Hyperammonemia--unclear if pt was receiving lactulose at [facility] as it is not listed as a med in the [facility] H&P, although it was in the discharge summary from 12/02 -Ammonia 63 on arrival - now 58 -Lactulose scheduled, follow clinically Hypokalemia -Potassium 3.1 on arrival, now 3.0 --> continue to supplement chronic diastolic CHF -Continue Lasix 80 mg PO BID and metolazone 5 mg PO qd -Continue home potassium supplement -low threshold to stop IVF but appearing stable H/o respiratory failure -Continue CPAP at night -Continue Combivent QID Diabetes mellitus type 2--last HgbA1c checked 11/30/16 was 7.4 -Continue Lantus 10 units SC BID -Insulin sliding scale -Check BSGs q ac and qhs -sugars overall reasonable HTN--stable -Continue lisinopril 5 mg PO qd Seizure disorder -Continue levetiracetam 500 mg PO BID Bipolar disorder, paranoid schizophrenia -Hold lithium for now due to toxic levels, continue to follow -gets depot haldol monthly DVT prophylaxis -Enoxaparin 40 mg SC q24h -JAYDON Lamas Code Status -Level I, FULL RESUSCITATION STATUS tried to call . voicemail full
[2016-12-05] MEDS: SODIUM CHLORIDE 0.9% 1000ML 1,000 ML IV SCH (13:20)
--- NOTE | 2016-12-05 14:38 | Pharmacy Progress Note ---
Pharmacy Abx Initial Consult Date of Service Dec 05, 2016. Pharmacy Dosing Scope Date of Consult: 12/05/16 Consultation requested by: Dr. Lewis Pharmacy is consulted to initiate Vancomycin IV dosing therapy for bacteremia, order appropriate labs and adjust drug dose/frequency. Subjective The patient is a 61 year old female admitted on Dec 04, 2016 at 15:00. Objective Height (Feet): 5 Height (Inches): 4.00 Weight (Kilograms): 94.500 Vital Signs (Past 12Hrs) Vital Signs Past 12 Hours Date Time Temp Pulse Resp B/P (MAP) Pulse Ox O2 Delivery O2 Flow Rate FiO2 12/05/16 13:06 37.2 16 96 12/05/16 12:00 96 Nasal Cannula 2.0 12/05/16 11:32 36.9 49 16 108/61 (77) 96 Nasal Cannula 2.0 12/05/16 07:39 37.2 67 14 114/66 (82) 97 Nasal Cannula 2.0 12/05/16 07:30 97 Nasal Cannula 2.0 12/05/16 04:00 Nasal Cannula 2.0 12/05/16 03:12 37.0 83 19 95/54 (68) 97 Nasal Cannula 2.0 Lab Results (24Hrs) Laboratory Tests (24 Hours) Test 12/05/16 05:49 White Blood Count 7.25 K/uL (4.8-10.8) Micro Results Date/Time Source Procedure Growth Status 12/04/16 11:51 Blood Blood Culture Pending Received 12/04/16 11:40 Blood Blood Culture - Preliminary Gram Positive Cocci Resulted 12/04/16 13:50 Urine,Catheterized Urine Culture - Preliminary PIN-POINT GROWTH PRESENT, REINCUBATING. Resulted Risk Factors for Resistance * Hospitalization for 48 hours or more within the past 90 days (11/18/16 - then discharged to [facility]) Assessment & Plan Assessment 61 year old female admitted 12/04/16. Plan Pharmacy has been consulted for treatment of bacteremia in a slightly obese ( BMI greater than 35kg/m2, BMI= 35.7kg/m2) patient who was recently admitted to [facility] at the beginning of the month. Vancomycin IV * Loading dose: 2400 mg (25 mg/kg) * Maintenance dose: 1100 mg IV (12 mg/kg) every 12 hours * Estimated P'Kinetic levels: ke= 0.0602/hr, t1/2= 12 hrs * Goal trough level for bacteremia : 15 to 20 mcg/mL * Trough level ordered for 12/07/16 ~30 minutes before the 1000 dose * A less than traditional dose has been selected due to likelihood of drug accumulation in obese patient Pharmacy will continue to follow and will adjust dose/frequency as necessary. Thank you.
[2016-12-05] MEDS: ENOXAPARIN 40 MG/0.4 ML SYR SC SCH (20:13)
[2016-12-05] MEDS: VANCOMYCIN INJ 1,100 MG in SODIUM CHLORIDE 0.9% 250ML 250 ML IV SCH (22:10)
[2016-12-06] MEDS: FUROSEMIDE 80 MG TAB PO SCH (05:25)
[2016-12-06] MEDS: BENZONATATE 100MG CAP PO SCH ×3 (05:25→21:35)
[2016-12-06 06:36] LABS: HEMATOCRIT 43.5 % (37-47); MEAN CELL VOLUME 92.9 fL (80-100); MEAN CORPUSCULAR HEMOGLOBIN 26.9 pg (25-34); MEAN PLATELET VOLUME 10.4 fL (7.4-10.4); PLATELET COUNT 209 K/uL (130-400); RED BLOOD COUNT 4.68 M/uL (4.2-5.4); WHITE BLOOD COUNT 7.69 K/uL (4.8-10.8)
[2016-12-06 07:13] LABS: BUN/CREATININE RATIO 19.9 (10-20); CALCIUM 10.6 mg/dl (8.5-10.1); CREATININE 0.99 mg/dl (0.60-1.20); POTASSIUM 2.7 mmol/L (3.5-5.1)
[2016-12-06 07:18] VITALS: BP 97/61; PULSE 76; TEMP 36.6; O2SAT 94
[2016-12-06] MEDS: MAGNESIUM OXIDE 400 MG TAB PO SCH (08:25)
[2016-12-06] MEDS: LEVETIRACETAM 500 MG TAB PO SCH ×2 (08:26→20:55)
[2016-12-06] MEDS ORDERED: POTASSIUM CHLORIDE 10 MEQ TABCR PO ONE (08:30)
[2016-12-06] MEDS: POTASSIUM CHLORIDE 20 MEQ TABCR PO SCH ×2 (08:30→17:49)
[2016-12-06] MEDS: LACTULOSE SYRUP 30 GM/45 ML UDP PO SCH ×3 (08:31→20:55)
[2016-12-06] MEDS: NYSTATIN POWDER 15GM BTL EXT SCH ×2 (08:31→20:55)
[2016-12-06] MEDS: IPRATROPIUM BROMIDE/ALBUTEROL respimat INH INH SCH ×4 (08:33→20:55)
[2016-12-06] MEDS: INSULIN GLARGINE SOLOSTAR 100 UNITS/ML 3 ML PEN SC SCH ×2 (08:41→21:03)
[2016-12-06] MEDS: LISINOPRIL 5 MG TAB PO SCH (08:42)
[2016-12-06] MEDS: METOLAZONE 5 MG TAB PO SCH (08:43)
[2016-12-06] MEDS: INSULIN ASPART 100 UNITS/ML 3 ML PEN SC SCH ×4 (08:44→21:02)
[2016-12-06] MEDS: VANCOMYCIN INJ 1,100 MG in SODIUM CHLORIDE 0.9% 250ML 250 ML IV SCH ×2 (10:32→21:35)
[2016-12-06] MEDS: SODIUM CHLORIDE 0.9% 1000ML 1,000 ML IV SCH (10:33)
[2016-12-06] MEDS: ACETAMINOPHEN 325 MG TAB PO PRN ×2 (10:34→21:39)
--- NOTE | 2016-12-06 11:18 | Progress Note ---
Subjective Date of Service: Dec 06, 2016. Subjective Pt evaluation today including: conversation w/ patient, physical exam, chart review, lab review, review of inpatient medication list still awaiting forensic medical examiner from [facility] much better today feeling and looking much more like herself, does remember me from yesterday (she appeared sedate/confused enough i wasn't sure she would) and notes that she's feeling much better, no further twitching, etc. actually really happy - L arm moving well - reaches out to about 90 degrees strong/ steady and without much discomfort to prove this! doesn't recall poor PO intake at [facility], definitely doesn't recall nausea/vomiting/ diarrhea. not sure if she was doing well or not but doesn't recall anything untoward. Problem List Medical Problems: (1) Change in mental status Status: Acute (2) CHF (congestive heart failure) Status: Acute (3) CHF (congestive heart failure) Status: Acute (4) CO2 retention Status: Acute (5) Fall Status: Acute (6) Hyperammonemia Status: Acute (7) Hyperammonemia Status: Acute (8) Hyperammonemia Status: Acute (9) Hypercalcemia Status: Acute (10) Hypercarbia Status: Acute (11) Hypercarbia Status: Acute (12) Hyperglycemia Status: Acute (13) Hypokalemia Status: Acute (14) Hypokalemia Status: Acute (15) Hyponatremia Status: Acute (16) Hyponatremia Status: Acute (17) Hyponatremia Status: Acute (18) Lower extremity weakness Status: Acute (19) Seizure Status: Acute (20) SOB (shortness of breath) Status: Acute (21) Weakness Status: Acute Review of Systems ROS otherwise negative except for as above Objective Vital Signs Date Time Temp Pulse Resp B/P (MAP) Pulse Ox O2 Delivery O2 Flow Rate FiO2 12/06/16 10:19 Nasal Cannula 2.0 12/06/16 07:18 36.6 76 18 97/61 (73) 94 12/06/16 00:20 CPAP 12/05/16 23:55 37.0 73 16 111/67 (82) 93 12/05/16 22:09 72 96 2.0 12/05/16 20:00 Nasal Cannula 2.0 12/05/16 16:21 36.6 84 16 136/74 (94) 2.0 12/05/16 15:45 Nasal Cannula 2.0 12/05/16 15:03 76 95 12/05/16 13:06 37.2 16 96 12/05/16 12:00 96 Nasal Cannula 2.0 12/05/16 11:32 36.9 49 16 108/61 (77) 96 Nasal Cannula 2.0 Physical Exam General Appearance: no apparent distress Eyes: EOMI ENT: hearing grossly normal Neck: trachea midline Respiratory/Chest: no respiratory distress, no accessory muscle use Extremities: normal range of motion (L arm able to extend to about 90 degrees without much of any pain, good fluid movement) 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, alert, normal mood/affect Skin: normal color, warm/dry Laboratory Results Last 24 Hours Test 12/05/16 16:46 12/05/16 20:13 12/05/16 20:15 12/06/16 06:25 Bedside Glucose 173 mg/dl 292 mg/dl 309 mg/dl White Blood Count 7.69 K/uL Red Blood Count 4.68 M/uL Hemoglobin 12.6 g/dL Hematocrit 43.5 % Mean Corpuscular Volume 92.9 fL Mean Corpuscular Hemoglobin 26.9 pg Mean Corpuscular Hemoglobin Concent 29.0 g/dl RDW Standard Deviation 51.3 fL RDW Coefficient of Variation 15.1 % Platelet Count 209 K/uL Mean Platelet Volume 10.4 fL Sodium Level 140 mmol/L Potassium Level 2.7 mmol/L Chloride Level 96 mmol/L Carbon Dioxide Level 41 mmol/L Anion Gap 3.0 mmol/L Blood Urea Nitrogen 20 mg/dl Creatinine 0.99 mg/dl Est Creatinine Clear Calc Drug Dose 66.5 ml/min Estimated GFR () 71.3 Estimated GFR (Non- 61.5 BUN/Creatinine Ratio 19.9 Random Glucose 143 mg/dl Calcium Level 10.6 mg/dl Ammonia 47.0 umol/L [place] Level 1.4 mMOL/L Test 12/06/16 07:48 Bedside Glucose 152 mg/dl Assessment and Plan Lethargy/metabolic encephalopathy, likely secondary to lithium toxicity and/or elevated ammonia -improving -lithium level down - probably resume tomorrow (will want to ensure that level has continued to fall and that etiology of how she got elevated has been better discerned) ----ddx basically appears either to have been dosing change (doubtful but waiting on forensic medical examiner record from [facility]) vs drug interaction (possible - toradol technically can change excretion of lithium allowing for toxicity - but seems odd for such a short time of overlap) vs dehydration/hemoconcentration (no renal failure, but contraction alkalosis and hypokalemia certainly appear like she's being overdiuresed - see below -- holding diuretics and following) Hypercalcemia likely secondary to lithium toxicity -Calcium 11.6 on arrival - now down to 10.5. PTH was somewhat elevated despite hypercalcemia so does appear to have some hyperpara -continue to follow -outpatient endocrine f/u as long as calciums stay in mid/low 10's at highest contraction alkalosis w resultant refractory hypokalemia -?just due to diuretics and controlled diet at [facility] (and prior to that hospital? ) - holding diuretics. no clear hx of change in PO intake, but has been in institutions for a week or so, allowing for restricted diet + home diuretics to possibly affect changes -hold diuretics for now, follow -replace K -500ml NSS -did come in appearing dehydrated at last admission as well - possibly needs lower dosing overall frozen shoulder -remarkably improved for such a short time period! -PT/OT Hyperammonemia--unclear if pt was receiving lactulose at [facility] as it is not listed as a med in the [facility] H&P, although it was in the discharge summary from 12/02 -Ammonia 63 on arrival - now improving further -Lactulose scheduled, follow clinically Hypokalemia -see above, replace and follow chronic diastolic CHF -holding diuretics - see above -- quite possible that she's needing less diuretics than she used to -will try to review CHF hx in depth further to better discern safety of reducing diuretics over the long term care phlebotomist H/o respiratory failure -Continue CPAP at night -Continue Combivent QID Diabetes mellitus type 2--last HgbA1c checked 11/30/16 was 7.4 -Continue Lantus 10 units SC BID -Insulin sliding scale, add carb ratio as running high at times -Check BSGs q ac and qhs HTN--stable -Continue lisinopril 5 mg PO qd Seizure disorder -Continue levetiracetam 500 mg PO BID Bipolar disorder, paranoid schizophrenia -Holding lithium for now due to toxic levels, continue to follow -gets handy fairl monthly DVT prophylaxis -Enoxaparin 40 mg SC q24h -JAYDON smith and ANAHIs Code Status -Level I, FULL RESUSCITATION STATUS
[2016-12-06] MEDS ORDERED: POTASSIUM CHLORIDE 20 MEQ TABCR PO ONE (12:30)
--- NOTE | 2016-12-06 15:23 | Medical Student: [facility] ---
Med Student Progress Note Date of Service Dec 06, 2016. Subjective Pt evaluation today including: conversation w/ patient, chart review, lab review, review of inpatient medication list 61 year old female with an extensive history of bipolar disorder, paranoid schizophrenia, seizure disorder, HTN, DM II, and diastolic CHF presented to the ED on 12/04 with a chief complaint of altered mental status. She states that she is doing better today and is very happy with the progress she has made in regards to her arm weakness. She can now lift her arms up to 90 degrees which she was unable to do before. She states that she had a headache which has since resolved. She has been able to urinate but has still not passed a bowel movement. She was able to eat a little bit today. She feels very tired and has a hard time keeping her eyes open but she does not want to sleep. Overall she is more alert and oriented but still has a difficult time answering questions. Review of Systems Constitutional: + weakness, + fatigue, No fever Cardiac: No chest pain Abdomen: + constipation, No pain Neurologic: + weakness Notes: Limited ROS due to inability to stay on track and answer questions Objective Vital Signs Date Time Temp Pulse Resp B/P (MAP) Pulse Ox O2 Delivery O2 Flow Rate FiO2 12/06/16 10:19 Nasal Cannula 2.0 12/06/16 07:18 36.6 76 18 97/61 (73) 94 12/06/16 00:20 CPAP 12/05/16 23:55 37.0 73 16 111/67 (82) 93 Physical Exam General Appearance: + mild distress, + obese Eyes: bilateral eyes PERRL Neck: no adenopathy, no JVD Respiratory/Chest: lungs clear, normal breath sounds, no respiratory distress Cardiovascular: regular rate, rhythm, no gallop, no murmur Abdomen: normal bowel sounds, non tender, soft, no organomegaly Extremities: no pedal edema 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: alert, + motor weakness, + disoriented (slightly ) Skin: + pertinent finding (Extremely dry skin, also in outer ear) Lymphatic: no adenopathy Laboratory Results [place]: 1.4 Na: 140 K: 2.7 Cl: 96 BUN: 20 Cr: 0.99 random Glucose: 143 Calcium: 10.6 Ammonia: 47.0 CO2: 41 Medications Current Inpatient Medications Medications (Trade) Dose Ordered Sig/Nanette Route Start Time Stop Time Status Last Admin Dose Admin Enoxaparin Sodium (Lovenox Inj) 40 mg Q24H SC 12/04/16 20:00 01/03/17 19:59 12/05/16 20:13 40 MG Sodium Chloride 1,000 ml @ 50 mls/hr Q20H IV 12/04/16 18:00 01/03/17 17:59 12/06/16 10:33 50 MLS/HR Acetaminophen (Tylenol Tab) 650 mg Q4H PRN PO 12/04/16 14:45 01/03/17 14:44 12/06/16 10:34 650 MG Al Hydrox/Mg Hydrox/Simethicone (Maalox Max Susp) 15 ml Q4H PRN PO 12/04/16 14:45 01/03/17 14:44 Magnesium Hydroxide (Milk Of Magnesia Susp) 30 ml Q12H PRN PO 12/04/16 14:45 01/03/17 14:44 Ondansetron HCl (Zofran Inj) 4 mg Q6H PRN IV 12/04/16 14:45 01/03/17 14:44 Polyethylene (Miralax Powder Packet) 17 gm DAILY PRN PO 12/04/16 14:45 01/03/17 14:44 Benzonatate (Tessalon Perles Cap) 200 mg Q8 PO 12/04/16 22:00 01/03/17 21:59 12/06/16 13:05 200 MG Furosemide (Lasix Tab) 80 mg BID@0600,1800 PO 12/04/16 18:00 01/03/17 17:59 Future Hold 12/06/16 05:25 80 MG Insulin Glargine (Lantus Solostar Pen) 10 unit Q12 SC 12/04/16 21:00 01/03/17 20:59 12/06/16 08:41 10 UNIT Albuterol/ Ipratropium (Combivent Respimat Inh) 1 puffs QID INH 12/04/16 17:00 01/03/17 16:59 12/06/16 13:03 1 PUFFS Levetiracetam (Keppra Tab) 500 mg BID PO 12/04/16 21:00 01/03/17 20:59 12/06/16 08:26 500 MG Lisinopril (Zestril Tab) 5 mg QAM PO 12/05/16 09:00 01/04/17 08:59 12/06/16 08:42 5 MG Magnesium Oxide (Mag-Ox Tab) 400 mg QAM PO 12/05/16 09:00 01/04/17 08:59 12/06/16 08:25 400 MG Metolazone (Zaroxolyn Tab) 5 mg DAILY PO 12/05/16 09:00 01/04/17 08:59 Future Hold 12/05/16 08:57 5 MG Nystatin (Mycostatin Powder) 1 appln BID EXT 12/04/16 21:00 01/03/17 20:59 12/06/16 08:31 1 APPLN Potassium Chloride (Klor-Con Tab) 60 meq QAM PO 12/05/16 09:00 01/03/17 09:00 12/06/16 08:30 60 MEQ Lactulose (Chronulac Syrup) 30 gm TID PO 12/04/16 21:00 01/03/17 20:59 12/06/16 13:04 30 GM Glucose (Glucose 40% Gel) 15-30 GRAMS 15 GRAMS... UD PRN PO 12/04/16 15:15 01/03/17 15:14 Glucose (Glucose Chew Tab) 4-8 Tablets 4 Tabl... UD PRN PO 12/04/16 15:15 01/03/17 15:14 Dextrose (Dextrose 50% 50ML Syringe) 25-50ML OF 50% DW IV FOR... UD PRN IV 12/04/16 15:15 01/03/17 15:14 Glucagon (Glucagon Inj) 1 mg UD PRN SQ 12/04/16 15:15 01/03/17 15:14 Insulin Aspart (novoLOG ASPART) SLIDING SCALE G... ACHS SC 12/04/16 21:00 01/03/17 20:59 12/06/16 13:03 4 UNITS Potassium Chloride (Klor-Con Tab) 40 meq DAILY@1830 PO 12/04/16 18:30 01/03/17 18:29 12/05/16 17:19 40 MEQ Vancomycin HCl (Consult) 1 ea UD PRN N/A 12/05/16 10:15 01/04/17 10:14 Vancomycin HCl 1100 mg/Sodium Chloride 272 ml @ 125 mls/hr Q12H IV 12/05/16 22:00 12/19/16 09:59 12/06/16 10:32 125 MLS/HR Assessment and Plan Problems Altered mental status Hyperammonemia Hypercalcemia Weakness BIPOL I DIS, SING MANIC EPIS, SEVERE, SPEC W PSYCHOTIC BEHAV CONGESTIVE HEART FAILURE NOS DIAB ROSA WO COMPL, TYPE II OR UNSPEC TYPE, NOT UNCNTRLD Assessment and Plan: Assessment: 61 year old female with an extensive history of bipolar disorder, paranoid schizophrenia, seizure disorder, HTN, DM II, and diastolic CHF admitted for AMS secondary to [place] Toxicity. Potential cause of high levels is due to the interaction between [place] and Toradol after her hospital stay for pain as needed. Plan [place] Toxicity: Since admission, her lithium levels have steadily decreased. Continue to monitor levels of [place] until they return to normal. Once they return to normal, consider restarting [place] therapy for her bioplar disorder. f/u lithium levels with psychiatry Bipolar disorder, Seizure disorder, paranoid schizophrenia: Psychiatry consultation to assess psychiatric issues. Hyperammonemia: Patient seems to have baseline high ammonia levels. The etiology is not exactly clear but hepatic cause seems to be unlikely. Past studies have not shown cirrhosis or elevated liver enzymes. Continued [facility] stay due to: other (Monitor [place] levels, Psychiatry consult )
[2016-12-06 15:28] VITALS: BP 99/62; PULSE 73; TEMP 37.1; O2SAT 96
[2016-12-06] MEDS: ENOXAPARIN 40 MG/0.4 ML SYR SC SCH (20:56)
[2016-12-06 23:35] VITALS: PULSE 71; O2SAT 97
[2016-12-06 23:53] VITALS: BP 109/72; PULSE 72; TEMP 36.8; O2SAT 96
[2016-12-07] MEDS: BENZONATATE 100MG CAP PO SCH ×3 (05:32→20:19)
[2016-12-07] MEDS: SODIUM CHLORIDE 0.9% 1000ML 1,000 ML IV SCH (05:32)
[2016-12-07 06:05] LABS: HEMATOCRIT 41.1 % (37-47); MEAN CELL VOLUME 91.3 fL (80-100); MEAN CORPUSCULAR HEMOGLOBIN 26.2 pg (25-34); MEAN CORPUSCULAR HGB CONC 28.7 g/dl (32-36); MEAN PLATELET VOLUME 9.5 fL (7.4-10.4); PLATELET COUNT 188 K/uL (130-400); WHITE BLOOD COUNT 7.02 K/uL (4.8-10.8)
[2016-12-07] MEDS: ACETAMINOPHEN 325 MG TAB PO PRN ×2 (06:31→14:49)
[2016-12-07 06:51] LABS: BUN/CREATININE RATIO 17.5 (10-20); POTASSIUM 3.3 mmol/L (3.5-5.1)
[2016-12-07 07:30] VITALS: BP 104/63; PULSE 70; TEMP 36.8; O2SAT 99
[2016-12-07] MEDS ORDERED: POTASSIUM CHLORIDE 10 MEQ TABCR PO STA (08:12)
[2016-12-07] MEDS: LACTULOSE SYRUP 30 GM/45 ML UDP PO SCH ×4 (08:16→20:07)
[2016-12-07] MEDS: NYSTATIN POWDER 15GM BTL EXT SCH ×2 (08:16→20:05)
[2016-12-07] MEDS: IPRATROPIUM BROMIDE/ALBUTEROL respimat INH INH SCH ×4 (08:17→20:06)
[2016-12-07] MEDS: LEVETIRACETAM 500 MG TAB PO SCH ×2 (08:17→20:08)
[2016-12-07] MEDS: MAGNESIUM OXIDE 400 MG TAB PO SCH (08:18)
[2016-12-07] MEDS: POTASSIUM CHLORIDE 20 MEQ TABCR PO SCH ×2 (08:19→17:48)
[2016-12-07] MEDS: LISINOPRIL 5 MG TAB PO SCH (08:20)
[2016-12-07] MEDS: INSULIN ASPART 100 UNITS/ML 3 ML PEN SC SCH ×4 (08:35→20:17)
[2016-12-07] MEDS: INSULIN GLARGINE SOLOSTAR 100 UNITS/ML 3 ML PEN SC SCH ×2 (08:37→20:18)
[2016-12-07] MEDS ORDERED: VANCOMYCIN TROUGH SCH (09:30)
[2016-12-07] MEDS: VANCOMYCIN INJ 1,100 MG in SODIUM CHLORIDE 0.9% 250ML 250 ML IV SCH (10:47)
--- NOTE | 2016-12-07 12:03 | Pharmacy Progress Note ---
Pharmacy Abx Dose Progress Nt Date of Service Dec 07, 2016. Pharmacy Dosing Scope The patient is currently receiving the following antimicrobial agents per Pharmacy consult: Vancomycin 1100 mg IV every 12 hours Objective Height (Feet): 5 Height (Inches): 4.00 Weight (Kilograms): 94.500 Vital Signs (Past 12Hrs) Vital Signs Past 12 Hours Date Time Temp Pulse Resp B/P (MAP) Pulse Ox O2 Delivery O2 Flow Rate FiO2 12/07/16 09:00 Nasal Cannula 2.0 12/07/16 07:30 36.8 70 18 104/63 (77) 99 Nasal Cannula 2.0 12/07/16 00:10 CPAP Lab Results (24Hrs) Laboratory Tests (24 Hours) Test 12/07/16 05:49 White Blood Count 7.02 K/uL (4.8-10.8) Micro Results Date/Time Source Procedure Growth Status 12/04/16 11:51 Blood Blood Culture - Preliminary NO GROWTH TO DATE. Resulted 12/04/16 11:40 Blood Blood Culture - Preliminary Coag Neg Staph Not Lugd[place]ensis Resulted 12/04/16 13:50 Urine,Catheterized Urine Culture - Final THREE TYPES OF ORGANISMS PRESENT, ALL... 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 * Day # 3 of antimicrobial therapy * Afebrile, no leukocytosis Plan Vancomycin IV * Trough level of 17.8 mcg/mL is therapeutic * Continue dose of 1100 mg IV every 12 hours * Goal trough level for bacteremia : 15 to 20 mcg/mL * Repeat trough level will be ordered if patient continues on medication or if there is change in clinical status * Isolation of coag negative staph in 2 BC in the absence of prosthetic material is likely to be contaminant Pharmacy will continue to follow and will adjust dose/frequency as necessary. Thank you.
[2016-12-07] MEDS ORDERED: NURSING VERBAL MED ORDER ONE (12:15)
[2016-12-07] MEDS: LITHIUM CARBONATE 300 MG TAB PO SCH (12:41)
[2016-12-07 13:07] LABS: CALCIUM 9.9 mg/dl (8.5-10.1)
[2016-12-07 15:39] VITALS: BP 107/65; PULSE 79; TEMP 36.4; O2SAT 98
--- NOTE | 2016-12-07 16:55 | Progress Note ---
Subjective Date of Service: Dec 07, 2016. Subjective Pt evaluation today including: conversation w/ patient, physical exam feeling better eating well was a little tired earlier but not now. no confusion generally feeling more liek herself wants to go back to [facility] after discharge. ammonia higher but deosn't appear confused Problem List Medical Problems: (1) Change in mental status Status: Acute (2) CHF (congestive heart failure) Status: Acute (3) CHF (congestive heart failure) Status: Acute (4) CO2 retention Status: Acute (5) Fall Status: Acute (6) Hyperammonemia Permanent Comment: Non cirrhotic hyperammonemia Status: Acute (7) Hyperammonemia Status: Acute (8) Hyperammonemia Status: Acute (9) Hypercalcemia Status: Acute (10) Hypercarbia Status: Acute (11) Hypercarbia Status: Acute (12) Hyperglycemia Status: Acute (13) Hypokalemia Status: Acute (14) Hypokalemia Status: Acute (15) Hyponatremia Status: Acute (16) Hyponatremia Status: Acute (17) Hyponatremia Status: Acute (18) Lower extremity weakness Status: Acute (19) Seizure Status: Acute (20) SOB (shortness of breath) Status: Acute (21) Weakness Status: Acute Review of Systems ROS otherwise negative except for as above Objective Vital Signs Date Time Temp Pulse Resp B/P (MAP) Pulse Ox O2 Delivery O2 Flow Rate FiO2 12/07/16 15:39 36.4 79 20 107/65 (79) 98 2.0 12/07/16 09:00 Nasal Cannula 2.0 12/07/16 07:30 36.8 70 18 104/63 (77) 99 Nasal Cannula 2.0 12/07/16 00:10 CPAP 12/06/16 23:53 36.8 72 18 109/72 (84) 96 CPAP 2.0 12/06/16 23:35 71 97 2.0 12/06/16 16:57 Nasal Cannula Physical Exam General Appearance: no apparent distress Eyes: EOMI ENT: hearing grossly normal Neck: trachea midline Respiratory/Chest: no respiratory distress, no accessory muscle use Extremities: normal range of motion (L arm slightly limited but actually moving quite well compared to before and with minimal discomfort) 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, alert, normal mood/affect ( baseline for patient) Skin: normal color, warm/dry Laboratory Results Last 24 Hours Test 12/06/16 20:17 12/07/16 05:49 12/07/16 07:51 12/07/16 09:41 Bedside Glucose 195 mg/dl 204 mg/dl White Blood Count 7.02 K/uL Red Blood Count 4.50 M/uL Hemoglobin 11.8 g/dL Hematocrit 41.1 % Mean Corpuscular Volume 91.3 fL Mean Corpuscular Hemoglobin 26.2 pg Mean Corpuscular Hemoglobin Concent 28.7 g/dl RDW Standard Deviation 50.7 fL RDW Coefficient of Variation 14.9 % Platelet Count 188 K/uL Mean Platelet Volume 9.5 fL Sodium Level 134 mmol/L Potassium Level 3.3 mmol/L Chloride Level 96 mmol/L Carbon Dioxide Level 34 mmol/L Anion Gap 4.0 mmol/L Blood Urea Nitrogen 18 mg/dl Creatinine 1.00 mg/dl Est Creatinine Clear Calc Drug Dose 65.9 ml/min Estimated GFR () 70.4 Estimated GFR (Non- 60.8 BUN/Creatinine Ratio 17.5 Random Glucose 239 mg/dl Calcium Level 9.9 mg/dl Ammonia 80.0 umol/L [place] Level 1.0 mMOL/L Vancomycin Level Trough 17.8 mcg/ml Test 12/07/16 11:36 12/07/16 15:19 Bedside Glucose 231 mg/dl 223 mg/dl Assessment and Plan Lethargy/metabolic encephalopathy, likely secondary to lithium toxicity and/or elevated ammonia -improving -lithium level down - resume today, follow up level in AM ----appearing by far most liekly that this occured due to volume contraction from diuretics (?polydipsia less than before?) --> will resume diuretics at lower dosing but would continue to follow lithium levels/volume status closely Hypercalcemia likely secondary to lithium toxicity -Calcium 11.6 on arrival - now down to just barely high but still elevated ranges. PTH was somewhat elevated despite hypercalcemia so does appear to have some hyperpara -continue to follow -outpatient endocrine f/u as long as calciums stay in mid/low 10's at highest contraction alkalosis w resultant refractory hypokalemia -?just due to diuretics and controlled diet at [facility] (and prior to that hospital? ) - holding diuretics. -was also dehydrated at last admission. suspect she's probably doing better w polydipsia and therefore doesn't need as much diuresis -continue to hold for now, at discharge will resume at 1/2 prior dose of lasix and use metolazone just on symptom/weight trigger - but have her followed closely frozen shoulder -remarkably improved for such a short time period! -PT/OT Hyperammonemia--lactulose continued, but still no BM - increase to QID. despite ammonia going up to 80, mental status is still baseline for her and better than at admission - making it very likely that ammonia did not play a role in her altered mental status, that it was likely all due to lithium Hypokalemia -see above, replace and follow chronic diastolic CHF -holding diuretics - see above -- quite possible that she's needing less diuretics than she used to -see above resume at 1/2 dosing and just prn metolazone H/o respiratory failure -Continue CPAP at night -Continue Combivent QID Diabetes mellitus type 2--last HgbA1c checked 11/30/16 was 7.4 -Continue Lantus increase to 12 units SC BID -Insulin sliding scale, tighten carb ratio as running high at times -Check BSGs q ac and qhs HTN--stable -Continue lisinopril 5 mg PO qd Seizure disorder -Continue levetiracetam 500 mg PO BID Bipolar disorder, paranoid schizophrenia -Holding lithium for now due to toxic levels, continue to follow -gets depo haldol monthly DVT prophylaxis -Enoxaparin 40 mg SC q24h -JAYDON smith and Heaven[place] Code Status -Level I, FULL RESUSCITATION STATUS anticipate [facility] tomorrow Continued [facility] stay due to: other (Monitor [place] levels, Psychiatry consult )
[2016-12-07] MEDS: ENOXAPARIN 40 MG/0.4 ML SYR SC SCH (20:09)
[2016-12-07] MEDS ORDERED: LITHIUM CARBONATE SR 300 MG TAB (LITHOBID) PO SCH (21:00)
[2016-12-07 21:21] VITALS: PULSE 75; O2SAT 96
[2016-12-07 23:37] VITALS: BP 119/74; PULSE 76; TEMP 37; O2SAT 100
[2016-12-08] MEDS: SODIUM CHLORIDE 0.9% 1000ML 1,000 ML IV SCH ×2 (02:44→21:21)
[2016-12-08] MEDS: ACETAMINOPHEN 325 MG TAB PO PRN ×3 (02:44→18:44)
[2016-12-08] MEDS: BENZONATATE 100MG CAP PO SCH ×3 (06:32→21:18)
[2016-12-08 06:48] LABS: BUN/CREATININE RATIO 11.6 (10-20); CALCIUM 9.7 mg/dl (8.5-10.1); CREATININE 0.82 mg/dl (0.60-1.20); POTASSIUM 4.1 mmol/L (3.5-5.1)
[2016-12-08 07:08] VITALS: BP 111/69; PULSE 78; TEMP 36.5; O2SAT 99
[2016-12-08 08:30] VITALS: O2SAT 99
[2016-12-08] MEDS: LEVETIRACETAM 500 MG TAB PO SCH ×2 (08:42→20:31)
[2016-12-08] MEDS: IPRATROPIUM BROMIDE/ALBUTEROL respimat INH INH SCH ×4 (08:42→20:28)
[2016-12-08] MEDS: POTASSIUM CHLORIDE 20 MEQ TABCR PO SCH ×2 (08:43→17:45)
[2016-12-08] MEDS: LACTULOSE SYRUP 30 GM/45 ML UDP PO SCH ×4 (08:43→20:29)
[2016-12-08] MEDS: MAGNESIUM OXIDE 400 MG TAB PO SCH (08:44)
[2016-12-08] MEDS: LITHIUM CARBONATE 300 MG TAB PO SCH ×2 (08:44→13:59)
[2016-12-08] MEDS: LISINOPRIL 5 MG TAB PO SCH (08:44)
[2016-12-08] MEDS: NYSTATIN POWDER 15GM BTL EXT SCH ×2 (08:45→20:28)
[2016-12-08] MEDS: INSULIN ASPART 100 UNITS/ML 3 ML PEN SC SCH ×4 (08:53→20:32)
[2016-12-08] MEDS: INSULIN GLARGINE SOLOSTAR 100 UNITS/ML 3 ML PEN SC SCH ×2 (08:54→20:38)
[2016-12-08] MEDS ORDERED: LTHCR300 PO (10:15)
[2016-12-08] MEDS ORDERED: MRLP17X PO (10:15)
[2016-12-08] MEDS ORDERED: INSDGIPEN SC (10:15)
[2016-12-08] MEDS ORDERED: HALO100I IM (10:15)
[2016-12-08] MEDS ORDERED: METO5TAB25 PO (10:15)
[2016-12-08] MEDS ORDERED: FRS/40 PO (10:15)
[2016-12-08] MEDS ORDERED: LCTL45 PO (10:15)
[2016-12-08] MEDS ORDERED: MCRK20 PO (10:15)
--- NOTE | 2016-12-08 10:21 | Discharge Instructions ---
Discharge Instructions Date of Service Dec 08, 2016. Admission Reason for Admission: Altered Mental Status, [place] Toxicity Discharge Discharge Diagnosis / Problem: lithium toxicity Discharge Goals Goal(s): Diagnostic testing, Therapeutic intervention Activity Recommendations Activity Level: Assistance Required Therapies: Physical Therapy, Occupational Therapy . Additional Information Patient informed of condition: Yes Advance Directives: No DNR: No Level of Care: Acute Rehab Communicable Disease: No (is on contact from prior cultures, no active infection at this time) Prognosis: Improving Instructions / Follow-Up Instructions / Follow-Up lithium toxicity: -appears predominantly from volume contraction related to diuretics -in addition to this, when resumed at prior home dose, lithium level did increase some -have reduced diuretics (see below for more detail) but also reduced lithium from 300/300/600 to 300/300/300 -please follow Q48hr BMP and lithium level for short term (then as clinically warranted) and make gentle adjustments to lithium, diuretics, and potassium as needed elevated ammonia -while she does accumulate ammonia, her ranges here in the hospital have been between 47-80 with no clear bearing on her mentation despite the levels. would continue lactulose and continue periodic monitoring -continue lactulose to goal of ~2 BM daily CHF / diuretics -despite a pulmonary HTN / R sided CHF picture, she recently has appeared to need less diuretics than has been her normal -- because of prior psychogenic polydipsia driving some of her fluid overload, i suspect that her lessened diuretic requirement is because of less PO fluid intake -previous diuretic regimen was lasix 80mg BID and metolazone 5mg daily --> for now, with her current status, this has been reduced to lasix 40mg BID and metolazone 5mg daily only PRN for weight gain of more than 2lbs. -because this appears to be a dynamic situation that may change as her fluid intake changes, would follow daily weights and Q48hr BMP to continue to adjust the dose up or down as appropriate -her potassium supplementation obviously will be different based on her diuretic requirements as well Current Hospital Diet Patient's current hospital diet: Diabetes Type 2 Diet Discharge Diet Recommended Diet: Diabetes Type 2 Diet Pending Studies Studies pending at discharge: no Laboratory Results Hemoglobin A1c Test 11/30/16 07:08 Range/Units Estimated Average Glucose 166 mg/dl Hemoglobin A1c 7.4 H 4.5-5.6 % Medical Emergencies . Who to Call and When: Medical Emergencies: If at any time you feel your situation is an emergency, please call 911 immediately. . Non-Emergent Contact Non-Emergency issues call your: Primary Care Provider . . "Provider Documentation" section prepared by Jeremiah Lewis. . Core Measure Problem Core Measures: None
--- NOTE | 2016-12-08 10:31 | Discharge Instructions ---
Discharge Instructions Date of Service Dec 08, 2016. Admission Reason for Admission: Altered Mental Status, [facility] Toxicity Discharge Discharge Diagnosis / Problem: lithium toxicity Discharge Goals Goal(s): Diagnostic testing, Therapeutic intervention Activity Recommendations Activity Limitations: resume your previous activity . Instructions / Follow-Up Instructions / Follow-Up lithium toxicity -with hindsight, this appears mostly to have occurred due to volume contraction from diuretics -- getting dehydrated can definitely bump a lithium level some, and your symptoms really correlated well with the lithium levels (once things were even just a little elevated you were looking and feeling better) -your levels did bump a little even just being back on your prior home dose, so it's also possible that your body is changing a little and that the ongoing dosing might need to continue to be tweaked a little bit -we've asked them at [facility] to check lithium levels every other day for the short term future and make gentle dose adjustments based on the lab results and how you're doing. depending on how the levels and dosing goes at [facility], Dr Patel may need to continue to follow things a little more closely for the short term once you're back home Diuretics/congestive heart failure -the last two times you've been in the hospital now, you've had appearances of dehydration or volume contraction. since there's been no change in your eating or drinking in the short term that you can recall, it's quite likely that you' re needing less diuretic than you used to -- and therefore the higher doses of diuretic are part of the reason you've been too dry -this is either because of some changes in your physiology (see above with the lithium dosing) or more likely, changes in how much fluid you're drinking (if the psychiatric diagnoses are doing better - which they seem to be - then the urge to drink so much can fade some). -diuretic dosing and fluid balance is a perpetual "work in progress" since people's bodies change and fluid intake can change - so the balance between " wet and dry" needs to be monitored in some ways continuously ---"too wet" is usually more obvious: weight gain, swelling/edema, shortness of breath, lower oxygen numbers --> this implies a need to drink less and increase diuretics ---"too dry" can often be way more subtle until it's gotten severe enough to cause weakness, low blood pressure, lightheadedness, dizziness. to try to catch "too dry" earlier, we recommend following labs (BMP) relatively frequently whenever there appear to be changes, or whenever there's any doubts. for now at [facility] we've asked them to follow a BMP every other day for the near future and gently adjust diuretics based on how "wet vs dry" you appear -for now we've reduced the lasix to 40mg twice a day, and the metolazone to daily ONLY IF NEEDED if you're showing weight gain of more than 2 lbs. the dosing of the diuretics is likely to be a work in progress -as the dosing of the diuretics changes, so does the need for potassium supplementation - so for now, with less diuretics, we're also supplementing with less potassium. ammonia -at least in the ranges you've shown us (47-80 during this hospital stay) your ammonia levels haven't really correlated with mental status/confusion/etc. that , of course, doesn't mean that we can ignore your ammonia or stop the lactulose , but it does mean that fortunately you're at least not as brittle from an ammonia standpoint as some people can be. we'll have the lactulose currently at three doses a day, but it should be increased or decreased as needed to a goal of about 2 bowel movements a day. ammonia levels should be periodically followed, but if they're anywhere between normal or just mild elevations, it appears we can mostly dose the lactulose based on a bowel movement goal rather than having to strictly "paco" ammonia levels. Current Hospital Diet Patient's current hospital diet: Diabetes Type 2 Diet Discharge Diet Recommended Diet: Diabetes Type 2 Diet Pending Studies Studies pending at discharge: no Laboratory Results Hemoglobin A1c Test 11/30/16 07:08 Range/Units Estimated Average Glucose 166 mg/dl Hemoglobin A1c 7.4 H 4.5-5.6 % Medical Emergencies . Who to Call and When: Medical Emergencies: If at any time you feel your situation is an emergency, please call 911 immediately. . Non-Emergent Contact Non-Emergency issues call your: Primary Care Provider . . "Provider Documentation" section prepared by Jeremiah Lewis. . VTE Core Measure Inpt VTE Proph given/why not?: Enoxaparin (Lovenox)LAURENCE, T.E.Fausto. [place], SCD's
[2016-12-08 14:33] VITALS: BP 119/76; PULSE 85; TEMP 36.6; O2SAT 99
--- NOTE | 2016-12-08 18:06 | Progress Note ---
Subjective Date of Service: Dec 08, 2016. Subjective Pt evaluation today including: conversation w/ patient, conversation w/ family , physical exam, chart review, lab review, review of inpatient medication list continues to feel well. discussed having to reduce lithium dosing wtih pt and then again with pt and . discussed resumption of diuretics at lower dosign and following clinically and with labs for "wet vs dry" and that it will likely be a dynamic situation based on PO fluid intake that's likely to change some with changing environments, hence need for vigilance no abdominal complaints ate well no twitching L arm continues to do amazingly well Problem List Medical Problems: (1) Change in mental status Status: Acute (2) CHF (congestive heart failure) Status: Acute (3) CHF (congestive heart failure) Status: Acute (4) CO2 retention Status: Acute (5) Fall Status: Acute (6) Hyperammonemia Permanent Comment: Non cirrhotic hyperammonemia Status: Acute (7) Hyperammonemia Status: Acute (8) Hyperammonemia Status: Acute (9) Hypercalcemia Status: Acute (10) Hypercarbia Status: Acute (11) Hypercarbia Status: Acute (12) Hyperglycemia Status: Acute (13) Hypokalemia Status: Acute (14) Hypokalemia Status: Acute (15) Hyponatremia Status: Acute (16) Hyponatremia Status: Acute (17) Hyponatremia Status: Acute (18) Lower extremity weakness Status: Acute (19) Seizure Status: Acute (20) SOB (shortness of breath) Status: Acute (21) Weakness Status: Acute Review of Systems all other ROS otherwise negative except for as above Objective Vital Signs Date Time Temp Pulse Resp B/P (MAP) Pulse Ox O2 Delivery O2 Flow Rate FiO2 12/08/16 14:33 36.6 85 16 119/76 (90) 99 2.0 12/08/16 08:30 99 Nasal Cannula 2.0 12/08/16 07:08 36.5 78 18 111/69 (83) 99 12/08/16 00:01 CPAP 2.0 12/07/16 23:37 37.0 76 20 119/74 (89) 100 CPAP 2.0 12/07/16 21:21 75 96 2.0 Physical Exam General Appearance: no apparent distress Eyes: EOMI ENT: hearing grossly normal Neck: trachea midline Respiratory/Chest: no respiratory distress, no accessory muscle use 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, alert, normal mood/affect Skin: normal color, warm/dry Laboratory Results Last 24 Hours Test 12/07/16 20:11 12/08/16 05:34 12/08/16 07:45 12/08/16 11:34 Bedside Glucose 240 mg/dl 187 mg/dl 202 mg/dl Sodium Level 135 mmol/L Potassium Level 4.1 mmol/L Chloride Level 99 mmol/L Carbon Dioxide Level 31 mmol/L Anion Gap 5.0 mmol/L Blood Urea Nitrogen 10 mg/dl Creatinine 0.82 mg/dl Est Creatinine Clear Calc Drug Dose 80.3 ml/min Estimated GFR () 89.5 Estimated GFR (Non- 77.2 BUN/Creatinine Ratio 11.6 Random Glucose 184 mg/dl Calcium Level 9.7 mg/dl [place] Level 1.4 mMOL/L Test 12/08/16 16:39 Bedside Glucose 190 mg/dl Assessment and Plan Lethargy/metabolic encephalopathy, likely secondary to lithium toxicity and/or elevated ammonia -improving -lithium level actually obdulio a little above upper limits despite just resuming home dosing -- ?did she also lose some dry weight making volume of distribution less? -reduce to 300mg TID ----appearing by far most likely that this occurred due to volume contraction from diuretics (?polydipsia less than before?) --> will resume diuretics at lower dosing but would continue to follow lithium levels/volume status closely Hypercalcemia likely secondary to lithium toxicity -Calcium 11.6 on arrival - now down to just barely high but still elevated ranges. PTH was somewhat elevated despite hypercalcemia so does appear to have some hyperpara -continue to follow -outpatient endocrine f/u as long as calciums stay in mid/low 10's at highest -has been ok control contraction alkalosis w resultant refractory hypokalemia -?just due to diuretics and controlled diet at [facility] (and prior to that hospital? ) - holding diuretics. -was also dehydrated at last admission. suspect she's probably doing better w polydipsia and therefore doesn't need as much diuresis -continue to hold for now, at discharge will resume at 1/2 prior dose of lasix and use metolazone just on symptom/weight trigger - but have her followed closely -has improved. frozen shoulder -remarkably improved for such a short time period! -PT/OT -continues to show me her progress with glee every day! Hyperammonemia--lactulose continued, but still no BM - increase to QID. despite ammonia going up to 80, mental status is still baseline for her and better than at admission - making it very likely that ammonia did not play a role in her altered mental status, that it was likely all due to lithium -d/w as well Hypokalemia -replace and follow, with lower diuretic likely to need less replacement chronic diastolic CHF -see above resume at 1/2 dosing and just prn metolazone -clinically appearing compensated H/o respiratory failure -Continue CPAP at night -Continue Combivent QID Diabetes mellitus type 2--last HgbA1c checked 11/30/16 was 7.4 -Continue Lantus increased to 12 units SC BID -Insulin sliding scale, tighten carb ratio as running high at times -follow BSGs q ac and qhs HTN--stable -Continue lisinopril 5 mg PO qd Seizure disorder -Continue levetiracetam 500 mg PO BID Bipolar disorder, paranoid schizophrenia -resumed lithium yesterday - reduce to 300mg TID as above noted, continue to follow levels closely -gets depo haldol monthly DVT prophylaxis -Enoxaparin 40 mg SC q24h -JAYDON Lamas Code Status -Level I, FULL RESUSCITATION STATUS ready for return to [facility] once insurance approves Continued [facility] stay due to: other (Monitor [place] levels, Psychiatry consult )
[2016-12-08] MEDS: ENOXAPARIN 40 MG/0.4 ML SYR SC SCH (20:30)
[2016-12-08] MEDS: LITHIUM CARBONATE SR 300 MG TAB (LITHOBID) PO SCH (20:31)
[2016-12-08 23:04] VITALS: PULSE 80; O2SAT 91
[2016-12-08 23:25] VITALS: BP 116/76; PULSE 72; TEMP 36.5; O2SAT 99
[2016-12-09] VITALS: O2SAT 99
[2016-12-09] MEDS: ACETAMINOPHEN 325 MG TAB PO PRN ×4 (04:47→21:59)
[2016-12-09] MEDS: BENZONATATE 100MG CAP PO SCH ×3 (05:23→21:18)
[2016-12-09 07:40] VITALS: BP 102/67; PULSE 79; TEMP 36.6; O2SAT 100
[2016-12-09 08:30] VITALS: O2SAT 100
[2016-12-09] MEDS: IPRATROPIUM BROMIDE/ALBUTEROL respimat INH INH SCH ×4 (09:08→21:15)
[2016-12-09] MEDS: LITHIUM CARBONATE 300 MG TAB PO SCH ×2 (09:08→13:20)
[2016-12-09] MEDS: LEVETIRACETAM 500 MG TAB PO SCH ×2 (09:09→21:15)
[2016-12-09] MEDS: LISINOPRIL 5 MG TAB PO SCH (09:09)
[2016-12-09] MEDS: NYSTATIN POWDER 15GM BTL EXT SCH ×2 (09:10→20:00)
[2016-12-09] MEDS: POTASSIUM CHLORIDE 20 MEQ TABCR PO SCH ×2 (09:10→18:14)
[2016-12-09] MEDS: LACTULOSE SYRUP 30 GM/45 ML UDP PO SCH ×4 (09:10→21:15)
[2016-12-09] MEDS: MAGNESIUM OXIDE 400 MG TAB PO SCH (09:10)
[2016-12-09] MEDS: INSULIN ASPART 100 UNITS/ML 3 ML PEN SC SCH ×4 (09:13→21:00)
[2016-12-09] MEDS: INSULIN GLARGINE SOLOSTAR 100 UNITS/ML 3 ML PEN SC SCH ×2 (09:14→21:31)
[2016-12-09 15:10] VITALS: BP 102/66; PULSE 79; TEMP 36.7; O2SAT 98
--- NOTE | 2016-12-09 17:38 | Progress Note ---
Subjective Date of Service: Dec 09, 2016. Subjective Pt evaluation today including: conversation w/ patient, conversation w/ family , physical exam, chart review, lab review, review of inpatient medication list frustrated that she's still here "i'm not able to get up, i'm just getting weaker!" d/w who is frustrated as well. still waiting on insurance auth. no acute complaints today. Problem List Medical Problems: (1) Change in mental status Status: Acute (2) CHF (congestive heart failure) Status: Acute (3) CHF (congestive heart failure) Status: Acute (4) CO2 retention Status: Acute (5) Fall Status: Acute (6) Hyperammonemia Permanent Comment: Non cirrhotic hyperammonemia Status: Acute (7) Hyperammonemia Status: Acute (8) Hyperammonemia Status: Acute (9) Hypercalcemia Status: Acute (10) Hypercarbia Status: Acute (11) Hypercarbia Status: Acute (12) Hyperglycemia Status: Acute (13) Hypokalemia Status: Acute (14) Hypokalemia Status: Acute (15) Hyponatremia Status: Acute (16) Hyponatremia Status: Acute (17) Hyponatremia Status: Acute (18) Lower extremity weakness Status: Acute (19) Seizure Status: Acute (20) SOB (shortness of breath) Status: Acute (21) Weakness Status: Acute Review of Systems all other ROS otherwise negative except for as above Objective Vital Signs Date Time Temp Pulse Resp B/P (MAP) Pulse Ox O2 Delivery O2 Flow Rate FiO2 12/09/16 15:46 Nasal Cannula 2.0 12/09/16 15:10 36.7 79 18 102/66 (78) 98 Room Air 12/09/16 08:30 100 Nasal Cannula 2.0 12/09/16 07:40 36.6 79 20 102/67 (79) 100 Nasal Cannula 2.0 12/09/16 00:00 99 BiPAP 12/08/16 23:25 36.5 72 18 116/76 (89) 99 BiPAP 12/08/16 23:04 80 91 2.0 Physical Exam General Appearance: no apparent distress Eyes: EOMI Neck: trachea midline Respiratory/Chest: no respiratory distress, no accessory muscle use 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 -reduced to 300mg TID ----appearing by far most likely that this occurred due to volume contraction from diuretics (?polydipsia less than before?) --> will resume diuretics at lower dosing but would continue to follow lithium levels/volume status closely - - BMP and lithium level in AM as was planned for when she was at rehab Hypercalcemia likely secondary to lithium toxicity -Calcium 11.6 on arrival - now down to just barely high but still elevated ranges. PTH was somewhat elevated despite hypercalcemia so does appear to have some hyperpara -continue to follow -outpatient endocrine f/u as long as calciums stay in mid/low 10's at highest -has been ok control contraction alkalosis w resultant refractory hypokalemia -?just due to diuretics and controlled diet at [facility] [place] (and prior to that hospital? ) - holding diuretics. -was also dehydrated at last admission. suspect she's probably doing better w polydipsia and therefore doesn't need as much diuresis -continue to hold for now, at discharge will resume at 1/2 prior dose of lasix and use metolazone just on symptom/weight trigger - but have her followed closely -has improved. -BMP in AM as was planned for when she was to be at rehab frozen shoulder -remarkably improved for such a short time period! -PT/OT Hyperammonemia--lactulose - increased to QID. despite ammonia going up to 80, mental status is still baseline for her and better than at admission - making it very likely that ammonia did not play a role in her altered mental status, that it was likely all due to lithium -d/w as well Hypokalemia -replaced and follow periodically chronic diastolic CHF -see above resume at 1/2 dosing and just prn metolazone -clinically appearing compensated H/o respiratory failure -Continue CPAP at night -Continue Combivent QID Diabetes mellitus type 2--last HgbA1c checked 11/30/16 was 7.4 -Continue Lantus increased to 12 units SC BID -Insulin sliding scale, tighten carb ratio as running high at times -follow BSGs q ac and qhs HTN--stable -Continue lisinopril 5 mg PO qd Seizure disorder -Continue levetiracetam 500 mg PO BID Bipolar disorder, paranoid schizophrenia -resumed lithium and reduced to 300mg TID as above noted, continue to follow levels closely -gets depo haldol monthly DVT prophylaxis -Enoxaparin 40 mg SC q24h -JAYDON smith and SCDs Code Status -Level I, FULL RESUSCITATION STATUS dispo -was at [facility], making progress with weakness and frozen shoulder. admitted here due to volume contraction/lithium toxicity which has now been corrected. pt not at all safe to go home, but insurance has not yet even replied on return to rehab. due to this unexplainable delay, patient is without safe disposition; further, due to having to remain in hospital longer because of insurance company inaction (as again, i am without safe disposition for her since she is not safe to go home in her current state) she is suffering worse deconditioning (which will likely extend her recovery) as well as have ongoing exposure to nosocomial pathogens. it is completely unacceptable to me that her recovery and her life is basically stuck "on hold" while awaiting a bureaucratic approval for a return to facility from which she just came. i have expressed this to her and her , and they are quite upset at the insurance company' s inaction on her behalf as well. i fully expect approval for return to rehab, so the delay and risk that comes with this delay is quite unacceptable to the point of being almost unethical. Continued [facility] stay due to: other (Monitor [place] levels, Psychiatry consult )
[2016-12-09] MEDS: SODIUM CHLORIDE 0.9% 1000ML 1,000 ML IV SCH (18:12)
[2016-12-09 20:00] VITALS: O2SAT 96
[2016-12-09] MEDS: LITHIUM CARBONATE SR 300 MG TAB (LITHOBID) PO SCH (21:16)
[2016-12-09] MEDS: ENOXAPARIN 40 MG/0.4 ML SYR SC SCH (21:16)
[2016-12-10] VITALS: O2SAT 96
[2016-12-10 00:25] VITALS: BP 117/75; PULSE 76; TEMP 36.7; O2SAT 97
[2016-12-10] MEDS: BENZONATATE 100MG CAP PO SCH ×2 (05:35→14:25)
[2016-12-10] MEDS: ACETAMINOPHEN 325 MG TAB PO PRN ×2 (06:20→14:25)
[2016-12-10 07:34] VITALS: BP 107/71; PULSE 72; TEMP 36.5; O2SAT 99
[2016-12-10 08:00] VITALS: O2SAT 96
[2016-12-10] MEDS: NYSTATIN POWDER 15GM BTL EXT SCH (08:00)
[2016-12-10] MEDS: LEVETIRACETAM 500 MG TAB PO SCH (08:26)
[2016-12-10] MEDS: POTASSIUM CHLORIDE 20 MEQ TABCR PO SCH (08:26)
[2016-12-10] MEDS: LITHIUM CARBONATE 300 MG TAB PO SCH ×2 (08:27→14:25)
[2016-12-10] MEDS: IPRATROPIUM BROMIDE/ALBUTEROL respimat INH INH SCH ×2 (08:27→11:25)
[2016-12-10] MEDS: MAGNESIUM OXIDE 400 MG TAB PO SCH (08:27)
[2016-12-10] MEDS: LISINOPRIL 5 MG TAB PO SCH (08:28)
[2016-12-10] MEDS: LACTULOSE SYRUP 30 GM/45 ML UDP PO SCH ×2 (08:31→11:26)
[2016-12-10] MEDS: INSULIN ASPART 100 UNITS/ML 3 ML PEN SC SCH ×2 (08:38→12:42)
[2016-12-10] MEDS: INSULIN GLARGINE SOLOSTAR 100 UNITS/ML 3 ML PEN SC SCH (08:38)
[2016-12-10 10:53] VITALS: BP 107/71; PULSE 72; TEMP 36.5; O2SAT 96
[2016-12-10] MEDS: SODIUM CHLORIDE 0.9% 1000ML 1,000 ML IV SCH (14:00)
[2016-12-10 14:59] VITALS: BP 120/79; PULSE 75; TEMP 36.6; O2SAT 99
--- NOTE | 2016-12-10 15:20 | Discharge Summary ---
Discharge Summary Date of Service Dec 10, 2016. Discharge Summary Admission Date: Dec 04, 2016 at 15:00 Discharge Date: Dec 10, 2016 Discharge Disposition: Rehab Principal Diagnosis: lithium toxicity from volume contraction Immunizations: Have You Had Influenza Vaccine: Unknown Influenza Vaccine Date: Sep 27, 2009 History of Tetanus Vaccine?: Unknown History of Pneumococcal: No Pneumococcal Date: Jun 28, 2007 History of Hepatitis B Vaccine: Unknown Procedures: lithium level and BMP ordered for today, still pending. last lithium 1.4 on 12/08 Last Resulted CBC 12/07/16 05:49 Medication Reconciliation New Medications: Furosemide (Lasix) 40 Mg Tab 40 MG PO BID, #60 TAB Haloperidol Decanoate (Haldol Decanoate 100) 100 Mg/Ml Inj 1 ML IM MONTHLY for 30 Days, #1 ML 5 Refills Metolazone (Zaroxolyn) 5 Mg Tab 5 MG PO DAILY PRN for ud, #10 TAB give daily prn weight gain of more than 2 lbs Potassium Chloride (Klor-Con M20) 20 Meq Tabcr 1 TAB PO DAILY, #30 TAB Insulin Glargine (Lantus Solostar) 100 Unit/Ml Inj 12 UNIT SC Q12, #1 VIAL Lactulose (Lactulose) 30 Gm/45 Ml Syrp 30 GM PO TID, #90 DOSE Nuevo Carbonate (Nuevo Carbonate ER) 300 Mg Tab 300 MG PO HS, #30 TAB Polyethylene (Miralax) 17 Gm Pow 17 GM PO DAILY PRN for Constipation, #30 Continued Medications: Benzonatate (Tessalon Perles) 200 Mg Cap 200 MG PO Q8, CAP Cholecalciferol (Vitamin D3) 1,000 Unit Cap 1000 INTER.UNIT PO QAM Insulin Aspart (Novolog) 100 Units/Ml Inj 0 SQ UD ONLY IF BS IS >180 Ipratropium-Albuterol (Combivent Respimat) 1 Aer Aer 1 PUFFS INH QID, INH Levetiractam (Levetiracetam) 500 Mg Tab 500 MG PO BID Lisinopril (Lisinopril) 5 Mg Tab 5 MG PO QAM Nuevo Carbonate (Nuevo Carbonate) 300 Mg Cap 300 MG PO BID, #180 Magnesium Oxide (Mag-Ox) 400 Mg Tab 400 MG PO QAM Nystatin (Nystop) 45 Appln/15 Gm Powd 1 APPLN TOP BID Discontinued Medications: Furosemide (Furosemide) 80 Mg Tab 80 MG PO BID, #180 Insulin Glargine (Lantus Solostar) 100 Unit/Ml Inj 10 UNIT SC Q12 for 30 Days Nuevo Carbonate (Lithobid Ext Rel) 300 Mg Tab 600 MG PO HS Metolazone (Metolazone) 5 Mg Tab 5 MG PO DAILY, #90 Potassium Chloride Microencaps (Potassium Chloride Er) 20 Meq Tab 2 TABS PO PM for 30 Days, TAB 5 Refills Potassium Chloride Microencaps (Potassium Chloride Er) 20 Meq Tab 3 TAB PO QAM for 90 Days, #270 TAB 3 Refills Discharge Exam Physical Exam: General Appearance: no apparent distress ENT: hearing grossly normal Respiratory/Chest: no respiratory distress, no accessory muscle use 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 -reduced to 300mg TID - level ordered for today still pending but mentation is at baseline therefore if level still high dose adjustments can be made as outpt ----appearing by far most likely that this occurred due to volume contraction from diuretics (?polydipsia less than before?) --> will resume diuretics at lower dosing but would continue to follow lithium levels/volume status closely - - BMP and lithium level q48hrs for next few cycles, then space out as clinically indicated Hypercalcemia likely secondary to lithium toxicity -Calcium 11.6 on arrival - now down to just barely high but still elevated ranges. PTH was somewhat elevated despite hypercalcemia so does appear to have some hyperpara -continue to follow -outpatient endocrine f/u as long as calciums stay in mid/low 10's at highest -has been ok control -periodic BMP as with above contraction alkalosis w resultant refractory hypokalemia -?just due to diuretics and controlled diet at [facility] (and prior to that hospital? ) - holding diuretics. -was also dehydrated at last admission. suspect she's probably doing better w polydipsia and therefore doesn't need as much diuresis -resume at 1/2 prior dose of lasix and use metolazone just on symptom/weight trigger - but have her followed closely -has improved. -BMP q48hrs as diuretics are resumed to ensure stability frozen shoulder -remarkably improved for such a short time period! -PT/OT Hyperammonemia--lactulose - increased to QID. despite ammonia going up to 80, mental status is still baseline for her and better than at admission - making it very likely that ammonia did not play a role in her altered mental status, that it was likely all due to lithium -d/w as well Hypokalemia -replaced and follow periodically, potassium replacement as outpatient has been reduced since diuretics have been reduced chronic diastolic CHF -see above resume at 1/2 dosing and just prn metolazone -clinically appearing compensated H/o respiratory failure -Continue CPAP at night -Continue Combivent QID Diabetes mellitus type 2--last HgbA1c checked 11/30/16 was 7.4 -Continue Lantus increased to 12 units SC BID -Insulin sliding scale, tighten carb ratio as running high at times -follow BSGs q ac and qhs HTN--stable -Continue lisinopril 5 mg PO qd Seizure disorder -Continue levetiracetam 500 mg PO BID Bipolar disorder, paranoid schizophrenia -resumed lithium and reduced to 300mg TID as above noted, continue to follow levels closely -gets depo haldol monthly DVT prophylaxis -Enoxaparin 40 mg SC q24h utilized during her stay Total Time Spent: Less than 30 minutes This includes examination of the patient, discharge planning, medication reconciliation, and communication with other providers. Discharge Instructions Please refer to the electronic Patient Visit Report (Discharge Instructions) for additional information. Additional Copies To Bin Patel M.D.; [facility]
== END 2016-12-10 17:52 | DRG 92 ==
LOC: EDBD 11:51 → C.EDB 11:52 → C.2E 15:00 → ENRESERV 16:15 → C.4E 12-05 15:37
PROVIDERS: ADMIT Family Medicine; ATTEND Family Medicine
DX: G92 Toxic encephalopathy (principal); I50.32 Chronic diastolic (congestive) heart failure; F20.0 Paranoid schizophrenia; E72.20 Disorder of urea cycle metabolism, unspecified; E87.3 Alkalosis; T43.295A Adverse effect of other antidepressants, initial encounter; E11.9 Type 2 diabetes mellitus without complications; I11.0 Hypertensive heart disease with heart failure; G40.909 Epilepsy, unspecified, not intractable, without status epilepticus; F31.9 Bipolar disorder, unspecified; E83.52 Hypercalcemia; M75.00 Adhesive capsulitis of unspecified shoulder; E87.6 Hypokalemia; E66.9 Obesity, unspecified; Z68.35 Body mass index [BMI] 35.0-35.9, adult; Z88.0 Allergy status to penicillin; Z79.4 Long term (current) use of insulin; Z79.899 Other long term (current) drug therapy; Z86.14 Personal history of Methicillin resistant Staphylococcus aureus infection; Z82.49 Family history of ischemic heart disease and other diseases of the circulatory system; Z83.3 Family history of diabetes mellitus

== ENCOUNTER 2017-01-11 13:20 | Inpatient (IN) | payer BC ==
[~2017-01-11] VITALS: Ht 157.5 cm; Wt 102.1 kg
[~2017-01-11 13:20] MED LIST changes: -ACET-1175 PO; -DEXT4CHW64 PO; +FRS/40 PO; +HALO100I IM; -HALO100I2 SQ; -KETO10TA PO; +LCTL45 PO; -LCTS240 PO; -LITH300T PO; -LSX80 PO; +LTHCR300 PO; -MCRB100 PO; +METO5TAB25 PO; -NYSCR15 EXT; +NYSP TOP; -ZRX5 PO
[2017-01-11 14:33] VITALS: PULSE 83; O2SAT 100
[2017-01-11 14:44] LABS: ARTERIAL BLOOD GAS BASE EXCESS 9.6 mEq/L (-9-1.8); ARTERIAL BLOOD GAS HCO3 38 mmol/L (19-24); ARTERIAL BLOOD GAS PO2 75 mm/Hg (80-95); ARTERIAL BLOOD GAS pH 7.31 (7.35-7.45)
--- NOTE | 2017-01-11 14:45 | DIAGNOSTIC IMAGING REPORT ---
CHEST ONE VIEW PORTABLE CLINICAL HISTORY: EVALUATE RESPIRATORY DISTRESS.DYSPNEA dyspnea COMPARISON STUDY: 12/04/2016 FINDINGS: Mild increase in cardiac size. Increased pulmonary vasculature compared to the prior study. Segmental atelectasis right base. IMPRESSION: Congestive heart failure The above report was generated using voice recognition software. It may contain grammatical, syntax or spelling errors. Electronically signed by: Jeff Hahn M.D. 01/11/2017 2:44 PM Dictated Date/Time: 01/11/2017 2:44 PM
[2017-01-11 14:49] LABS: BUN/CREATININE RATIO 11.1 (10-20); CALCIUM 8.8 mg/dl (8.5-10.1); CREATININE 0.93 mg/dl (0.60-1.20); POTASSIUM 4.4 mmol/L (3.5-5.1)
[2017-01-11 14:55] LABS: ALB/GLOB RATIO 0.9 (0.9-2); CKMB/CK RATIO 2.3 (0-3.0)
[2017-01-11 14:57] LABS: ALLEN TEST POS (POS); O2 ADMINISTRATION 2 L
[2017-01-11 15:36] LABS: HEMATOCRIT 35.8 % (37-47); MEAN CELL VOLUME 96.2 fL (80-100); MEAN CORPUSCULAR HGB CONC 29.1 g/dl (32-36); PLATELET COUNT 222 K/uL (130-400); RED BLOOD COUNT 3.72 M/uL (4.2-5.4); WHITE BLOOD COUNT 6.68 K/uL (4.8-10.8)
[2017-01-11] MEDS ORDERED: ASPI81TA28 PO (15:51)
[2017-01-11] MEDS ORDERED: INSDGIPEN SC (15:51)
[2017-01-11] MEDS ORDERED: POTA10CA28 PO (15:51)
[2017-01-11] MEDS ORDERED: FUROSEMIDE 40 MG/4 ML VIAL IV STA (16:22)
[2017-01-11 16:30] LABS: BASO % 0.1 %; BASO ABS # 0.01 K/uL (0-0.2); COMPLETE YES; EOS % 0.4 %; IG% 0.7 %; LYMPH % 14.1 %; LYMPH ABS # 0.94 K/uL (1.2-3.4); NEUT % 71.7 %
[2017-01-11] MEDS ORDERED: DEXTROSE 50% 50 ML SYR IV PRN (16:30)
[2017-01-11] MEDS ORDERED: GLUCOSE 40% GEL 15 GM TUBE PO PRN (16:30)
[2017-01-11] MEDS ORDERED: ONDANSETRON INJ 2 MG/ML 2 ML VIAL IV PRN (16:30)
[2017-01-11] MEDS ORDERED: GLUCAGON FOR INJ 1 MG VIAL SQ PRN (16:30)
[2017-01-11] MEDS ORDERED: ACETAMINOPHEN IV 100 ML IV PRN (16:30)
[2017-01-11] MEDS ORDERED: GLUCOSE 10 TABS/TUBE PO PRN (16:30)
[2017-01-11] MEDS ORDERED: DiphenhydrAMINE HCL 50 MG/ML VIAL IV PRN (16:30)
[2017-01-11 17:30] VITALS: BP 122/89; PULSE 88; TEMP 37.1; O2SAT 100
[2017-01-11 17:44] VITALS: BP 122/89; PULSE 88; TEMP 37.1; O2SAT 100; Ht 157.5 cm; Wt 102.1 kg
--- NOTE | 2017-01-11 18:26 | History and Physical ---
History & Physical Date & Time of Service: Jan 11, 2017 at 18:18 Chief Complaint: Acute Respiratory Failure With Hypoxia And Primary Care Physician: Bin Patel M.D. History of Present Illness Source: spouse, hospital records History of present illness is severely limited due to the patient's nonresponsive state. She is brought in by EMS with her usual symptoms of severe shortness of breath and altered mental state. Past Medical/Surgical History Medical Problems: (1) ACUTE RENAL FAILURE NOS Status: Resolved (2) BIPOL I DIS, SING MANIC EPIS, SEVERE, SPEC W PSYCHOTIC BEHAV Status: Chronic (3) CONGESTIVE HEART FAILURE NOS Status: Chronic (4) DIAB ROSA WO COMPL, TYPE II OR UNSPEC TYPE, NOT UNCNTRLD Status: Chronic Family History FH: HTN (hypertension) FH: diabetes mellitus Heart disease Social History Smoking Status: Never Smoker Smokeless Tobacco Use: No Alcohol Use: none Drug Use: none Marital Status: Housing status: other Occupational Status: retired Immunizations History of Influenza Vaccine: Unknown Influenza Vaccine Date: Sep 27, 2009 History of Tetanus Vaccine?: Unknown History of Pneumococcal: No Pneumococcal Date: Jun 28, 2007 History of Hepatitis B Vaccine: Unknown Multi-Drug Resistant 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, MRSA Allergies Coded Allergies: Penicillins (Unverified Allergy, Unknown, unknown, 12/04/16) Home Medications Scheduled Aspirin (Aspirin Ec), 81 MG PO QAM Benzonatate (Tessalon Perles), 200 MG PO Q8 Cholecalciferol (Vitamin D3), 1,000 INTER.UNIT PO QAM Furosemide (Lasix), 40 MG PO BID Haloperidol Decanoate (Haldol Decanoate 100), 1 ML IM MONTHLY Insulin Aspart (Novolog), 0 SQ UD Insulin Glargine (Lantus Solostar), 14 UNITS SC AMPM Ipratropium-Albuterol (Combivent Respimat), 1 PUFFS INH QID Lactulose (Lactulose), 30 GM PO TID Levetiractam (Levetiracetam), 500 MG PO BID Lisinopril (Lisinopril), 5 MG PO QAM [place] Carbonate ([place] Carbonate), 300 MG PO QAM [place] Carbonate ([place] Carbonate ER), 300 MG PO HS Magnesium Oxide (Mag-Ox), 400 MG PO QAM Nystatin (Nystop), 1 APPLN TOP BID Potassium Chloride (Micro-K Ext Rel), 40 MEQ PO BID Scheduled PRN Metolazone (Zaroxolyn), 5 MG PO DAILY PRN for ud Polyethylene (Miralax), 17 GM PO DAILY PRN for Constipation Review of Systems Review of systems not able to be performed due to patient's nonresponsive state Physical Exam Vital Signs Date Time Temp Pulse Resp B/P (MAP) Pulse Ox O2 Delivery O2 Flow Rate FiO2 01/11/17 17:44 37.1 88 26 122/89 100 BiPAP 40 01/11/17 17:30 37.1 88 26 122/89 (100) 100 BiPAP 40 01/11/17 17:08 84 24 120/76 100 01/11/17 16:55 87 24 110/71 100 BiPAP 01/11/17 15:50 83 23 110/71 100 BiPAP 01/11/17 14:33 83 100 40 01/11/17 14:10 95 Nasal Cannula 2.0 01/11/17 14:10 95 Nasal Cannula 2.0 01/11/17 14:00 89 20 122/69 96 Nasal Cannula 2.0 01/11/17 13:38 95 Nasal Cannula 2.0 01/11/17 13:38 37.3 84 17 127/79 95 Nasal Cannula 2.0 01/11/17 13:34 89 The patient is nonresponsive, resting comfortably on BiPAP. HEENT--PERRL,mucous membranes and oropharynx dry. Neck-- + JVD, no bruits, thyroid normal, trachea midline, no adenopathy. Heart--normal S1 and S2, , no murmurs, rubs or gallops. Lungs--coarse breath sounds with wheezes bilaterally, mild respiratory distress and accessory muscle use. Abdomen--normal bowel sounds and soft, nondistended, no hernias or masses, no organomegaly, and obese. Extremities--no cyanosis, clubbing. Bilaterally pretibially 2+ pitting Edema. There are good distal pulses b/l. Dermatologic--normal skin turgor, normal color, warm and dry, no abnormal lymph nodes, no rash. Neurologic--cranial nerves II through XII grossly intact. Rheumatologic--deferred Psychiatric--nonresponsive Diagnostics Laboratory Results Results Past 24 Hours Test 01/11/17 13:30 01/11/17 14:32 01/11/17 14:43 01/11/17 14:54 Range/Units White Blood Count 6.68 4.8-10.8 K/uL Red Blood Count 3.72 4.2-5.4 M/uL Hemoglobin 10.4 12.0-16.0 g/dL Hematocrit 35.8 37-47 % Mean Corpuscular Volume 96.2 80-100 fL Mean Corpuscular Hemoglobin 28.0 25-34 pg Mean Corpuscular Hemoglobin Concent 29.1 32-36 g/dl Platelet Count 222 130-400 K/uL Mean Platelet Volume 10.0 7.4-10.4 fL Neutrophils (%) (Auto) 71.7 % Lymphocytes (%) (Auto) 14.1 % Monocytes (%) (Auto) 13.0 % Eosinophils (%) (Auto) 0.4 % Basophils (%) (Auto) 0.1 % Neutrophils # (Auto) 4.78 1.4-6.5 K/uL Lymphocytes # (Auto) 0.94 1.2-3.4 K/uL Monocytes # (Auto) 0.87 0.11-0.59 K/uL Eosinophils # (Auto) 0.03 0-0.5 K/uL Basophils # (Auto) 0.01 0-0.2 K/uL RDW Standard Deviation 54.1 36.4-46.3 fL RDW Coefficient of Variation 15.4 11.5-14.5 % Immature Granulocyte % (Auto) 0.7 % Immature Granulocyte # (Auto) 0.05 0.00-0.02 K/uL Sodium Level 123 136-145 mmol/L Potassium Level 4.4 3.5-5.1 mmol/L Chloride Level 83 98-107 mmol/L Carbon Dioxide Level 38 21-32 mmol/L Anion Gap 2.0 3-11 mmol/L Blood Urea Nitrogen 10 7-18 mg/dl Creatinine 0.93 0.60-1.20 mg/dl Est Creatinine Clear Calc Drug Dose 74.6 ml/min Estimated GFR () 76.9 Estimated GFR (Non- 66.3 BUN/Creatinine Ratio 11.1 10-20 Random Glucose 236 70-99 mg/dl Calcium Level 8.8 8.5-10.1 mg/dl Total Bilirubin 0.4 0.2-1 mg/dl Aspartate Amino Transf (AST/SGOT) 27 15-37 U/L Alanine Aminotransferase (ALT/SGPT) 23 12-78 U/L Alkaline Phosphatase 88 45-117 U/L Total Creatine Kinase 69 26-192 U/L Creatine Kinase MB 1.6 0.5-3.6 ng/ml Creatine Kinase MB Ratio 2.3 0-3.0 Troponin I 0.027 0-0.045 ng/ml Pro-B-Type Natriuretic Peptide 1714 0-900 pg/ml Total Protein 7.0 6.4-8.2 gm/dl Albumin 3.4 3.4-5.0 gm/dl Globulin 3.6 2.5-4.0 gm/dl Albumin/Globulin Ratio 0.9 0.9-2 Arterial Blood pH 7.31 7.35-7.45 Arterial Blood Partial Pressure CO2 78 35-46 mmHg Arterial Blood Partial Pressure O2 75 80-95 mm/Hg Arterial Blood HCO3 38 19-24 mmol/L Arterial Blood Oxygen Saturation 93.0 90-95 % Arterial Blood Base Excess 9.6 -9-1.8 mEq/L Arterial Blood Gas Delivery 2 L [place] Test POS POS Ammonia 86.0 11-32 umol/L Bedside Lactic Acid Venous 1.05 0.90-1.70 mmol/L Test 01/11/17 15:56 01/11/17 17:04 Range/Units [place] Level 1.0 0.6-1.2 mMOL/L Osmolality 272 280-300 mOsm/kg Microbiology Results 01/11/17 Blood Culture, Received Pending 01/11/17 Blood Culture, Received Pending 01/11/17 Urine Culture, Received Pending Diagnostic Radiology Patient Name: CHARITY BARRIOS Unit Number: [id number] Dictated: 01/11/171443 Transcribed: 01/11/171443 MS Printed Date/Time: [~ rep prt dt]/[~ rep prt tm] [~ rep ct labl] - [~ rep ct ivnm] [facility] [place] [address] Dictated: 01/11/171443 Transcribed: 01/11/17 1444 MS Printed Date/Time: [~ rep prt dt]/[~ rep prt tm] [~ rep ct labl] - [~ rep ct ivnm] [~ rep ct add3]] CHEST ONE VIEW PORTABLE CLINICAL HISTORY: EVALUATE RESPIRATORY DISTRESS.DYSPNEA dyspnea COMPARISON STUDY: 12/04/2016 FINDINGS: Mild increase in cardiac size. Increased pulmonary vasculature compared to the prior study. Segmental atelectasis right base. IMPRESSION: Congestive heart failure The above report was generated using voice recognition software. It may contain grammatical, syntax or spelling errors. Electronically signed by: Jeff Hahn M.D. 01/11/2017 2:44 PM Dictated Date/Time: 01/11/2017 2:44 PM The status of this report is Signed. Draft = Not yet reviewed or approved by Radiologist. Signed = Reviewed and approved by Radiologist. <AttendingPhy></AttendingPhy> <FamilyPhy>[place], </FamilyPhy> < PrimaryPhy>Bin Patel M.D.</PrimaryPhy> <UnitNumber>[id number]</ UnitNumber> <VisitNumber>[id number]</VisitNumber> <PatientName>CHARITY BARRIOS </PatientName> <DateOfBirth>1955</DateOfBirth> <Location>C.EDC</Location> <ServiceDate>01/11/17</ServiceDate> <MNE>ESINDI</MNE> <OrderingPhy>Nadeem Fulton MD</OrderingPhy> <OrderingPhyMNE>f rep ord dr edward</OrderingPhyMNE> < DictatingPhyMNE>f rep dict dr edward</DictatingPhyMNE> <CCListMNE>f rep ct mne</ CCListMNE> <AdmittingPhyMNE>f pt admit dr edward</AdmittingPhyMNE> <AttendingPhyMNE >f pt attend dr edward</AttendingPhyMNE> <ConsultingPhyMNE>f pt consult dr edward</ConsultingPhyMNE> <FamilyPhyMNE>f pt fam dr edward</FamilyPhyMNE> <OtherPhyMNE>f pt other dr edward</OtherPhyMNE> < PrimaryPhyMNE>f pt prim care dr mne</PrimaryPhyMNE> <ReferringPhyMNE>f pt referring dr edward</ReferringPhyMNE> EKG EKG shows normal sinus rhythm at 89 bpm, nonspecific T-wave changes, prolonged QT, PACs. Impression Assessment and Plan Acute on chronic systolic CHF exacerbation/hypertension/nonresponsive state-- The patient will be admitted to telemetry for serial cardiac enzymes, cardiac rhythm monitoring and a 2-D echocardiogram with Dopplers. Change Lasix 40 mg by mouth twice a day to 40 mg IV twice a day, with first dose tonight. Place Iniguez catheter. Continue BiPAP. Nothing by mouth status due to nonresponsive state. Diabetes mellitus--hold Lantus 14 units subcutaneous twice a day. Place on Accu -Cheks before meals and at bedtime with NovoLog coverage per scale. Seizure disorder--change Keppra 500 mg by mouth twice a day to 500 mg IV twice a day. Level of Care Telemetry Advanced Directives Existing Advance Directive: No Existing Living Will: No Existing Power of Coating Mixer: No Resuscitation Status FULL RESUSCITATION VTE Prophylaxis VTE Risk Assessment Done? Y/N: Yes Risk Level: High Given or contraindicated: Enoxaparin (Lovenox)SQ, SCD's
[2017-01-11] MEDS: FAMOTIDINE IV INJ 20 MG in DEXTROSE 5% 100ML 100 ML IV SCH (18:28)
[2017-01-11 19:13] LABS: URINE APPEARANCE CLEAR (CLEAR); URINE BILIRUBIN NEG (NEG); URINE COLOR YELLOW; URINE EPITHELIAL CELL AUTO 0-5 /lpf (0-5); URINE NITRITE NEG (NEG); URINE PH 7.5 (4.5-7.5); UROBILINOGEN NEG (NEG)
[2017-01-11 19:26] LABS: MANUAL MICROSCOPIC REQUIRED? NO; REVIEW REQ? NO
[2017-01-11 19:37] VITALS: BP 136/82; PULSE 98; TEMP 36.8; O2SAT 98
[2017-01-11 19:40] VITALS: PULSE 84; O2SAT 98
[2017-01-11] MEDS: INSULIN ASPART 100 UNITS/ML 3 ML PEN SC SCH (21:00)
--- NOTE | 2017-01-11 21:34 | EMERGENCY ROOM VISIT NOTE ---
History Report prepared by Jada: Ez Fonseca Under the Supervision of: Dr. Nadeem Fulton M.D. First contact with patient: 14:04 Chief Complaint: SHORTNESS OF BREATH Stated Complaint: BREATHING DIFFICULTY/EDEMA Nursing Triage Summary: Increased edema and SOB. Patient states her home health nurse told her she had increased swelling and suggested visit to ED. History of Present Illness The patient is a 61 year old female who presents to the Emergency Room with complaints of worsening shortness of breath that began recently. This history is limited secondary to altered mental status. Per the patient's home health nurse, the patient has been increasingly confused, short of breath, and edematous in her legs. Patient denies any headache, chest pain, abdominal pain, or neck pain. She was seen here in November for altered mental status. She was diagnosed with hypercalcemia, and hyponatremia, hyperammonemia. She is also lithium toxic. She spent 1 week in the hospital at that time. Source of History: other (Home health nurse) History Limited By: AMS Onset: recently Position: other (Respiratory System) Symptom Intensity: moderate Quality: other (Shortness of breath) Timing: worsening Note: Patient's mental status is altered. Her leg edema is worse as well. Review of Systems ROS is limited secondary to altered mental status. Past Medical & Surgical Medical Problems: (1) ACUTE RENAL FAILURE NOS (2) Acute respiratory failure with hypoxia and hypercapnia (3) Altered mental status (4) BIPOL I DIS, SING MANIC EPIS, SEVERE, SPEC W PSYCHOTIC BEHAV (5) CONGESTIVE HEART FAILURE NOS (6) DIAB ROSA WO COMPL, TYPE II OR UNSPEC TYPE, NOT UNCNTRLD (7) Hyponatremia (8) Lethargy (9) [place] toxicity (10) Seizure-like activity (11) Seizure-like activity (12) Weakness Family History FH: HTN (hypertension) FH: diabetes mellitus Heart disease Social History Smoking Status: Never Smoker Alcohol Use: none Drug Use: none Marital Status: Housing Status: lives with family Occupation Status: retired Current/Historical Medications Scheduled Aspirin (Aspirin Ec), 81 MG PO QAM Benzonatate (Tessalon Perles), 200 MG PO Q8 Cholecalciferol (Vitamin D3), 1,000 INTER.UNIT PO QAM Furosemide (Lasix), 40 MG PO BID Haloperidol Decanoate (Haldol Decanoate 100), 1 ML IM MONTHLY Insulin Aspart (Novolog), 0 SQ UD Insulin Glargine (Lantus Solostar), 14 UNITS SC AMPM Ipratropium-Albuterol (Combivent Respimat), 1 PUFFS INH QID Lactulose (Lactulose), 30 GM PO TID Levetiractam (Levetiracetam), 500 MG PO BID Lisinopril (Lisinopril), 5 MG PO QAM [place] Carbonate ([place] Carbonate), 300 MG PO QAM [place] Carbonate ([place] Carbonate ER), 300 MG PO HS Magnesium Oxide (Mag-Ox), 400 MG PO QAM Nystatin (Nystop), 1 APPLN TOP BID Potassium Chloride (Micro-K Ext Rel), 40 MEQ PO BID Scheduled PRN Metolazone (Zaroxolyn), 5 MG PO DAILY PRN for ud Polyethylene (Miralax), 17 GM PO DAILY PRN for Constipation Allergies Coded Allergies: Penicillins (Unverified Allergy, Unknown, unknown, 12/04/16) Physical Exam Vital Signs Date Time Temp Pulse Resp B/P (MAP) Pulse Ox O2 Delivery O2 Flow Rate FiO2 01/11/17 15:50 83 23 110/71 100 BiPAP 01/11/17 14:33 83 100 40 01/11/17 14:10 95 Nasal Cannula 2.0 01/11/17 14:10 95 Nasal Cannula 2.0 01/11/17 14:00 89 20 122/69 96 Nasal Cannula 2.0 01/11/17 13:38 95 Nasal Cannula 2.0 01/11/17 13:38 37.3 84 17 127/79 95 Nasal Cannula 2.0 01/11/17 13:34 89 Physical Exam GENERAL: Sleepy but arouses to stimuli, ill-appearing, in no distress HENT: Normocephalic, atraumatic. Oropharynx unremarkable. Mild edema to the face. EYES: Normal conjunctiva. Sclera non-icteric. NECK: Supple. No nuchal rigidity. FROM. No JVD. RESPIRATORY: A few crackles bilaterally, but otherwise clear. CARDIAC: Regular rate, normal rhythm. Extremities warm and well perfused. Pulses equal. ABDOMEN: Soft, non-distended. No tenderness to palpation. No rebound or guarding. No masses. RECTAL: Deferred. MUSCULOSKELETAL: Chest examination reveals no tenderness. The back is symmetrical on inspection without obvious abnormality. There is no CVA tenderness to palpation. No joint edema. UPPER EXTREMITIES: Mild edema bilaterally. LOWER EXTREMITIES: Calves are equal size bilaterally and non-tender. 3+ pitting edema. No discoloration. NEURO: Altered sensorium. Not following commands. SKIN: No rash or jaundice noted. Medical Decision & Procedures ER Provider Diagnostic Interpretation: Radiology results as stated below per my review and radiologist interpretation: CHEST ONE VIEW PORTABLE CLINICAL HISTORY: EVALUATE RESPIRATORY DISTRESS.DYSPNEA dyspnea COMPARISON STUDY: 12/04/2016 FINDINGS: Mild increase in cardiac size. Increased pulmonary vasculature compared to the prior study. Segmental atelectasis right base. IMPRESSION: Congestive heart failure The above report was generated using voice recognition software. It may contain grammatical, syntax or spelling errors. Electronically signed by: Jeff Hahn M.D. 01/11/2017 2:44 PM Dictated Date/Time: 01/11/2017 2:44 PM Laboratory Results 01/11/17 13:30 Red Blood Count 3.72, Mean Corpuscular Volume 96.2, Mean Corpuscular Hemoglobin 28.0, Mean Corpuscular Hemoglobin Concent 29.1, Mean Platelet Volume 10.0, Neutrophils (%) (Auto) 71.7, Lymphocytes (%) (Auto) 14.1, Monocytes (%) (Auto) 13.0, Eosinophils (%) (Auto) 0.4, Basophils (%) (Auto) 0.1, Neutrophils # (Auto ) 4.78, Lymphocytes # (Auto) 0.94, Monocytes # (Auto) 0.87, Eosinophils # (Auto ) 0.03, Basophils # (Auto) 0.01 01/11/17 13:30 Test 01/11/17 13:30 01/11/17 14:32 01/11/17 14:43 01/11/17 14:54 White Blood Count 6.68 K/uL (4.8-10.8) Red Blood Count 3.72 M/uL (4.2-5.4) Hemoglobin 10.4 g/dL (12.0-16.0) Hematocrit 35.8 % (37-47) Mean Corpuscular Volume 96.2 fL (80-100) Mean Corpuscular Hemoglobin 28.0 pg (25-34) Mean Corpuscular Hemoglobin Concent 29.1 g/dl (32-36) Platelet Count 222 K/uL (130-400) Mean Platelet Volume 10.0 fL (7.4-10.4) Neutrophils (%) (Auto) 71.7 % Lymphocytes (%) (Auto) 14.1 % Monocytes (%) (Auto) 13.0 % Eosinophils (%) (Auto) 0.4 % Basophils (%) (Auto) 0.1 % Neutrophils # (Auto) 4.78 K/uL (1.4-6.5) Lymphocytes # (Auto) 0.94 K/uL (1.2-3.4) Monocytes # (Auto) 0.87 K/uL (0.11-0.59) Eosinophils # (Auto) 0.03 K/uL (0-0.5) Basophils # (Auto) 0.01 K/uL (0-0.2) RDW Standard Deviation 54.1 fL (36.4-46.3) RDW Coefficient of Variation 15.4 % (11.5-14.5) Immature Granulocyte % (Auto) 0.7 % Immature Granulocyte # (Auto) 0.05 K/uL (0.00-0.02) Anion Gap 2.0 mmol/L (3-11) Est Creatinine Clear Calc Drug Dose 74.6 ml/min Estimated GFR () 76.9 Estimated GFR (Non- 66.3 BUN/Creatinine Ratio 11.1 (10-20) Calcium Level 8.8 mg/dl (8.5-10.1) Total Bilirubin 0.4 mg/dl (0.2-1) Aspartate Amino Transf (AST/SGOT) 27 U/L (15-37) Alanine Aminotransferase (ALT/SGPT) 23 U/L (12-78) Alkaline Phosphatase 88 U/L (45-117) Total Creatine Kinase 69 U/L (26-192) Creatine Kinase MB 1.6 ng/ml (0.5-3.6) Creatine Kinase MB Ratio 2.3 (0-3.0) Troponin I 0.027 ng/ml (0-0.045) Pro-B-Type Natriuretic Peptide 1714 pg/ml (0-900) Total Protein 7.0 gm/dl (6.4-8.2) Albumin 3.4 gm/dl (3.4-5.0) Globulin 3.6 gm/dl (2.5-4.0) Albumin/Globulin Ratio 0.9 (0.9-2) Arterial Blood pH 7.31 (7.35-7.45) Arterial Blood Partial Pressure CO2 78 mmHg (35-46) Arterial Blood Partial Pressure O2 75 mm/Hg (80-95) Arterial Blood HCO3 38 mmol/L (19-24) Arterial Blood Oxygen Saturation 93.0 % (90-95) Arterial Blood Base Excess 9.6 mEq/L (-9-1.8) Arterial Blood Gas Delivery 2 L [place] Test POS (POS) Ammonia 86.0 umol/L (11-32) Bedside Lactic Acid Venous 1.05 mmol/L (0.90-1.70) Test 01/11/17 15:56 [place] Level 1.0 mMOL/L (0.6-1.2) Laboratory results reviewed by me ECG Indication: altered mental status Rate (beats per minute): 89 Rhythm: sinus rhythm Findings: nonspecific-ST abn, PAC, no acute ischemic change, other (Prolonged QT) ED Course 1404: The patient was evaluated in room C2B. A complete history and physical exam was performed. 1556: Upon reexamination, the patient was resting. I discussed the test results and treatment plan with Dr. Suarez - [facility] [place]. The patient will be evaluated for further management. Medical Decision Triage Nursing notes reviewed. The patient's presentation and history were concerning for AMS and SOB. Etiologies such as hypercarbia, hyperammonemia, pneumonia, COPD, reactive airway disease, CHF, cardiac ischemia, pulmonary embolism, pneumothorax, musculoskeletal, infections, gastrointestinal, as well as others were entertained. The patient was evaluated. She was altered. BiPAP was initiated based upon her history. She tolerated this very well. Blood work was obtained. Chest x- ray shows some CHF. She has peripheral edema. The patient had hyponatremia and hypercarbia noted on laboratory studies. She also had hyperammonemia. Her states that she has been taking her lactulose. Cardiac markers were unremarkable. Urinalysis unremarkable. The patient will need admission to the hospital and I discussed the case with Dr. Cornel Suarez. He promptly evaluated the patient in the Emergency Room and admitted her for further management. Medication Reconcilliation Current Medication List: was personally reviewed by me Blood Pressure Screening Patient's blood pressure: Normal blood pressure Blood pressure disposition: Did not require urgent referral Consults Time Called: [id number] Consulting Physician: Dr. Erick HODGSON Returned Call: [phone] Discussed the patient's case. The patient will be evaluated for further treatment and disposition. Impression Primary Impression: Altered mental status Additional Impressions: Hypercarbia Hyperammonemia Hyponatremia Acute CHF Scribe Attestation The scribe's documentation has been prepared under my direction and personally reviewed by me in its entirety. I confirm that the note above accurately reflects all work, treatment, procedures, and medical decision making performed by me. Departure Information Dispostion Being Evaluated By Hospitalist Referrals Bin Patel M.D. (PCP) Patient Instructions My [facility] Problem Qualifiers
[2017-01-11] MEDS: ENOXAPARIN 40 MG/0.4 ML SYR SC SCH (21:56)
[2017-01-11] MEDS: LEVETIRACETAM IV 500 MG in DEXTROSE 5% 100ML 100 ML IV SCH (21:56)
[2017-01-12] VITALS (9 sets, daily range): BP systolic 106–131; BP diastolic 63–78; PULSE 76–99; TEMP 36.1–37.3; O2SAT 94–98
[2017-01-12] MEDS: FAMOTIDINE IV INJ 20 MG in DEXTROSE 5% 100ML 100 ML IV SCH (05:23)
[2017-01-12 06:02] LABS: INR 1.1 (0.9-1.1); PARTIAL THROMBOPLASTIN RATIO 1.1; PROTHROMBIN TIME (PATIENT) 11.6 SECONDS (9.0-12.0)
[2017-01-12 06:23] LABS: BASO % 0.2 %; BASO ABS # 0.01 K/uL (0-0.2); COMPLETE YES; EOS % 1.1 %; HEMATOCRIT 35.9 % (37-47); IG% 0.6 %; LYMPH % 21.6 %; LYMPH ABS # 1.13 K/uL (1.2-3.4); MEAN CORPUSCULAR HEMOGLOBIN 27.8 pg (25-34); MEAN PLATELET VOLUME 9.9 fL (7.4-10.4); MONO % 12.4 %; NEUT % 64.1 %; PLATELET COUNT 220 K/uL (130-400); RED BLOOD COUNT 3.74 M/uL (4.2-5.4); WHITE BLOOD COUNT 5.24 K/uL (4.8-10.8)
[2017-01-12 06:33] LABS: BUN/CREATININE RATIO 13.2 (10-20); CALCIUM 9.3 mg/dl (8.5-10.1); CREATININE 0.68 mg/dl (0.60-1.20); MAGNESIUM 2.1 mg/dl (1.8-2.4); POTASSIUM 3.8 mmol/L (3.5-5.1)
[2017-01-12] MEDS: LEVETIRACETAM IV 500 MG in DEXTROSE 5% 100ML 100 ML IV SCH (07:46)
[2017-01-12] MEDS: INSULIN ASPART 100 UNITS/ML 3 ML PEN SC SCH ×4 (07:47→22:25)
[2017-01-12] MEDS: FUROSEMIDE INJ 40 MG in SYRINGE 0 ML IV SCH ×2 (07:47→16:23)
[2017-01-12] MEDS ORDERED: FUROSEMIDE INJ 40 MG in SYRINGE 0 ML IV SCH (09:00)
[2017-01-12] MEDS ORDERED: LITHIUM CARBONATE 300 MG TAB PO ONE (10:00)
--- NOTE | 2017-01-12 10:15 | Hospitalist Progress Note ---
Hospitalist Progress Note Date of Service Jan 12, 2017. Subjective Pt evaluation today including: conversation w/ patient, conversation w/ family (spoke with on phone), physical exam, chart review, lab review, review of studies, review of inpatient medication list Pain: None PO Intake: Tolerating PO diet Voiding: rao catheter in place Patient reports feeling much better today. She states that she does have some shortness of breath and wheezing intermittently. She also admits to a cough that she states is non-productive. She denies any other complaints. Per nursing the patient was alert this morning and asking for food, so a diet was ordered. She tolerated this well. She is also having good urine output per nursing. The patient denies fevers, chills, sweats, chest pain, palpitations, claudication, nausea, vomiting, abdominal pain, dysuria, hematuria, urinary retention, paralysis, weakness, numbness and tingling. Additional Comments: See HPI for pertinent positives and negatives. All other systems reviewed and negative. Objective Vital Signs Date Time Temp Pulse Resp B/P (MAP) Pulse Ox O2 Delivery O2 Flow Rate FiO2 01/12/17 08:00 BiPAP 01/12/17 07:57 92 98 40 01/12/17 07:43 36.4 92 20 129/77 (94) 96 Nasal Cannula 2.0 01/12/17 04:00 BiPAP 01/12/17 03:56 36.5 87 17 106/71 (83) 97 BiPAP 40 01/12/17 00:03 36.1 90 23 112/69 (83) 97 BiPAP 40 01/12/17 00:01 BiPAP 01/11/17 20:00 BiPAP 01/11/17 19:40 84 98 40 01/11/17 19:37 36.8 98 20 136/82 (100) 98 BiPAP 01/11/17 17:44 37.1 88 26 122/89 100 BiPAP 40 01/11/17 17:30 37.1 88 26 122/89 (100) 100 BiPAP 40 01/11/17 17:08 84 24 120/76 100 01/11/17 16:55 87 24 110/71 100 BiPAP 01/11/17 15:50 83 23 110/71 100 BiPAP 01/11/17 14:33 83 100 40 01/11/17 14:10 95 Nasal Cannula 2.0 01/11/17 14:10 95 Nasal Cannula 2.0 01/11/17 14:00 89 20 122/69 96 Nasal Cannula 2.0 01/11/17 13:38 95 Nasal Cannula 2.0 01/11/17 13:38 37.3 84 17 127/79 95 Nasal Cannula 2.0 01/11/17 13:34 89 Physical Exam Notes: General appearance: +Morbidly obese. Well-developed, well-nourished, no apparent distress Head: Normocephalic, atraumatic Eyes: +Bilateral proptosis. Normal inspection, PERRL, EOMI ENT: Normal ENT inspection, hearing grossly normal, pharynx normal Neck: Supple, no JVD, trachea midline Respiratory/Chest: +Exam limited by poor respiratory effort. Lungs clear to auscultation, normal breath sounds, no respiratory distress Cardiovascular: Regular rate & rhythm, no gallop, no murmur Abdomen/GI: +Umbilical hernia. Normal bowel sounds, non-tender, soft Extremities/Musculoskeletal: +Trace pitting edema. Normal inspection, no calf tenderness Neurological/Psych: Alert, normal mood/affect, oriented x 3 Skin: Normal color, warm/dry, no rash Laboratory Results Last 24 Hours Test 01/11/17 13:30 01/11/17 14:32 01/11/17 14:43 01/11/17 14:54 White Blood Count 6.68 K/uL Red Blood Count 3.72 M/uL Hemoglobin 10.4 g/dL Hematocrit 35.8 % Mean Corpuscular Volume 96.2 fL Mean Corpuscular Hemoglobin 28.0 pg Mean Corpuscular Hemoglobin Concent 29.1 g/dl Platelet Count 222 K/uL Mean Platelet Volume 10.0 fL Neutrophils (%) (Auto) 71.7 % Lymphocytes (%) (Auto) 14.1 % Monocytes (%) (Auto) 13.0 % Eosinophils (%) (Auto) 0.4 % Basophils (%) (Auto) 0.1 % Neutrophils # (Auto) 4.78 K/uL Lymphocytes # (Auto) 0.94 K/uL Monocytes # (Auto) 0.87 K/uL Eosinophils # (Auto) 0.03 K/uL Basophils # (Auto) 0.01 K/uL RDW Standard Deviation 54.1 fL RDW Coefficient of Variation 15.4 % Immature Granulocyte % (Auto) 0.7 % Immature Granulocyte # (Auto) 0.05 K/uL Sodium Level 123 mmol/L Potassium Level 4.4 mmol/L Chloride Level 83 mmol/L Carbon Dioxide Level 38 mmol/L Anion Gap 2.0 mmol/L Blood Urea Nitrogen 10 mg/dl Creatinine 0.93 mg/dl Est Creatinine Clear Calc Drug Dose 74.6 ml/min Estimated GFR () 76.9 Estimated GFR (Non- 66.3 BUN/Creatinine Ratio 11.1 Random Glucose 236 mg/dl Calcium Level 8.8 mg/dl Total Bilirubin 0.4 mg/dl Aspartate Amino Transf (AST/SGOT) 27 U/L Alanine Aminotransferase (ALT/SGPT) 23 U/L Alkaline Phosphatase 88 U/L Total Creatine Kinase 69 U/L Creatine Kinase MB 1.6 ng/ml Creatine Kinase MB Ratio 2.3 Troponin I 0.027 ng/ml Pro-B-Type Natriuretic Peptide 1714 pg/ml Total Protein 7.0 gm/dl Albumin 3.4 gm/dl Globulin 3.6 gm/dl Albumin/Globulin Ratio 0.9 Arterial Blood pH 7.31 Arterial Blood Partial Pressure CO2 78 mmHg Arterial Blood Partial Pressure O2 75 mm/Hg Arterial Blood HCO3 38 mmol/L Arterial Blood Oxygen Saturation 93.0 % Arterial Blood Base Excess 9.6 mEq/L Arterial Blood Gas Delivery 2 L Christiano Test POS Ammonia 86.0 umol/L Bedside Lactic Acid Venous 1.05 mmol/L Test 01/11/17 15:56 01/11/17 17:04 01/11/17 18:10 01/11/17 18:30 [place] Level 1.0 mMOL/L Osmolality 272 mOsm/kg Bedside Glucose 136 mg/dl Urine Color YELLOW Urine Appearance CLEAR Urine pH 7.5 Urine Specific West 1.010 Urine Protein NEG Urine Glucose (UA) NEG Urine Ketones NEG Urine Occult Blood TRACE Urine Nitrite NEG Urine Bilirubin NEG Urine Urobilinogen NEG Urine Leukocyte Esterase NEG Urine WBC (Auto) 0 /hpf Urine RBC (Auto) 5-10 /hpf Urine Hyaline Casts (Auto) 0 /lpf Urine Epithelial Cells (Auto) 0-5 /lpf Urine Bacteria (Auto) NEG Urine Osmolality 174 mOms/kg Test 01/11/17 21:05 01/12/17 05:07 01/12/17 06:22 Bedside Glucose 123 mg/dl 72 mg/dl White Blood Count 5.24 K/uL Red Blood Count 3.74 M/uL Hemoglobin 10.4 g/dL Hematocrit 35.9 % Mean Corpuscular Volume 96.0 fL Mean Corpuscular Hemoglobin 27.8 pg Mean Corpuscular Hemoglobin Concent 29.0 g/dl Platelet Count 220 K/uL Mean Platelet Volume 9.9 fL Neutrophils (%) (Auto) 64.1 % Lymphocytes (%) (Auto) 21.6 % Monocytes (%) (Auto) 12.4 % Eosinophils (%) (Auto) 1.1 % Basophils (%) (Auto) 0.2 % Neutrophils # (Auto) 3.36 K/uL Lymphocytes # (Auto) 1.13 K/uL Monocytes # (Auto) 0.65 K/uL Eosinophils # (Auto) 0.06 K/uL Basophils # (Auto) 0.01 K/uL RDW Standard Deviation 54.2 fL RDW Coefficient of Variation 15.3 % Immature Granulocyte % (Auto) 0.6 % Immature Granulocyte # (Auto) 0.03 K/uL Prothrombin Time 11.6 SECONDS Prothromb Time International Ratio 1.1 Activated Partial Thromboplast Time 28.1 SECONDS Partial Thromboplastin Ratio 1.1 Sodium Level 131 mmol/L Potassium Level 3.8 mmol/L Chloride Level 87 mmol/L Carbon Dioxide Level 42 mmol/L Anion Gap 2.0 mmol/L Blood Urea Nitrogen 9 mg/dl Creatinine 0.68 mg/dl Est Creatinine Clear Calc Drug Dose 102.0 ml/min Estimated GFR () 109.4 Estimated GFR (Non- 94.4 BUN/Creatinine Ratio 13.2 Random Glucose 74 mg/dl Calcium Level 9.3 mg/dl Magnesium Level 2.1 mg/dl Total Bilirubin 0.5 mg/dl Direct Bilirubin 0.2 mg/dl Aspartate Amino Transf (AST/SGOT) 21 U/L Alanine Aminotransferase (ALT/SGPT) 19 U/L Alkaline Phosphatase 83 U/L Total Protein 6.6 gm/dl Albumin 3.2 gm/dl Assessment and Plan 61 y/o female with a history of diastolic CHF, respiratory failure with hypercapnia, DM II, HTN, seizure disorder, bipolar disorder and paranoid schizophrenia who presents with shortness of breath and altered mental status. CXR consistent with congestive heart failure. Pt has a h/o respiratory failure with CO2 retention and is supposed to be on BiPAP every night but has h/o noncompliance with this and resulting encephalopathy. Acute on chronic diastolic CHF, respiratory acidosis and encephalopathy, h/o respiratory failure--improving -Admit to telemetry. No acute events overnight. Pt in sinus rhythm with HR in 80s-90s -O2 by protocol, and BiPAP at nighttime. Pt is supposed to be on BiPAP every night at home but is noncompliant. -Continue Lasix 40 mg IV BID -Continue Rao catheter -Pt with 2400 cc urine output yesterday -Pt alert and oriented x 3, diet ordered -Will restart home PO meds -Echo ordered. Last echo December 2015 showed LVEF of 50-55%, mildly dilated left ventricle. No WMA. Type 1 diastolic dysfunction. Severely dilated right ventricle with visually mildly reduced systolic function. The right atrium is moderately dilated. Mild pulmonary hypertension suggested; estimated RVSP 43 mmHg. -Continue Combivent inhaler QID -Continue potassium supplement Dental infection--pt started on penicillin as an outpatient by dentist, confirmed with pt's pharmacy -Continue Pen VK 500 mg PO q6h x 4 days to complete course DM II--last HgbA1c check 11/30/16 was 7.4 -Hold home Lantus for now, last BSG was 72. Can resume when eating more -Insulin sliding scale -Check BSGs q ac and qhs HTN--stable -Continue lisinopril 5 mg PO qd Seizure disorder -Continue levetiracetam 500 mg PO BID Bipolar disorder, paranoid schizophrenia -Continue lithium 300 mg PO BID DVT prophylaxis -Enoxaparin 40 mg SC q24h -JAYDON Lamas Code Status -Level I, FULL RESUSCITATION STATUS Dispo -Pt from home -banking services advisor consulted -PT/OT evaluate and treat
[2017-01-12] MEDS ORDERED: METOLAZONE 5 MG TAB PO PRN (10:30)
[2017-01-12] MEDS: PENICILLIN V POTASSIUM 250 MG TAB PO SCH ×3 (11:30→22:22)
[2017-01-12] MEDS: IPRATROPIUM BROMIDE/ALBUTEROL respimat INH INH SCH ×3 (11:32→22:20)
[2017-01-12] MEDS: LACTULOSE SYRUP 30 GM/45 ML UDP PO SCH ×2 (13:51→22:21)
[2017-01-12] MEDS: BENZONATATE 100MG CAP PO SCH ×2 (13:52→22:21)
[2017-01-12] MEDS ORDERED: LITHIUM CARBONATE 300 MG TAB PO SCH (14:00)
--- NOTE | 2017-01-12 15:26 | ECHOCARDIOGRAM REPORT ---
*NOTICE TO RECEIVING LIBERTARIAN AGENCY This information is strictly Confidential and protected under [place] law. [place] law prohibits you from making any further disclosure of this information unless further disclosure is expressly permitted by the written consent of the person to whom it pertains or is authorized by law. A general authorization for the release of medical or other information is not sufficient for this purpose. Hospital accepts no responsibility if the information is made available to any other person, INCLUDING THE PATIENT. Interpretation Summary * Name: CHARITY BARRIOS Study Date: 01/12/2017 10:54 AM BP: 129/77 mmHg * Patient Location: C.2T\S\E221\S\1 HR: 84 * : 1955 (M/d/yyyy) Gender: Female Height: 62 in * Age: 61 yrs Ethnicity: AA Weight: 228 lb * Ordering Physician: Barbi Koo * Referring Physician: UNKNOWN * Performed By: Aleena Montano RCS * * Reason For Study: CHF * BSA: 2.0 m2 * -- Conclusions -- * Compared to previous study of 12/25/15: LV systolic function is now normal and PASP has reduced. * Mildly dilated LV chamber with mild concentric LVH. * Normal LV systolic function, EF 55-60%. * No segmental left ventricular wall motion abnormalities are noted. * Grade I diastolic dysfunction. * Moderately dilated RV chamber with visually reduced systolic function. * Moderate to severe tricuspid regurgittation. * PASP of 38 mmHg assuming a RA pressure of 3 mmHg. Procedure Details * A complete two-dimensional transthoracic echocardiogram was performed (2D, M-mode, Doppler and color flow Doppler). Left Ventricle * The left ventricle is normal in size. * There is mild concentric left ventricular hypertrophy. * Left ventricular systolic function is normal. * No segmental left ventricular wall motion abnormalities are noted. * Ejection Fraction = 55-60%. * The left ventricular wall motion is normal. Right Ventricle * The right ventricle is severely dilated. * The right ventricular systolic function is moderately reduced. Atria * The left atrium is mildly dilated. * The right atrium is moderately dilated. * No ASD detected; PFO is not assessed. Mitral Valve * The mitral valve is normal in structure and function. Tricuspid Valve * The tricuspid valve anatomy is normal. * There is no tricuspid stenosis. * There is moderate to severe tricuspid regurgitation. Aortic Valve * The aortic valve is normal in structure and function. Pulmonic Valve * The pulmonary valve is not well seen, but the Doppler examination is normal without significant regurgitation or stenosis. Great Vessels * The aortic root is normal size. Pericardium/Pleural * There is no pericardial effusion. Left Ventricular Diastolic Function * Grade I diastolic dysfunction, (abnormal relaxation pattern). MMode 2D Measurements and Calculations IVSd 1.4 cm IVSs 1.8 cm LVIDd 5.5 cm LVIDs 3.8 cm LVPWd 1.2 cm LVPWs 1.7 cm IVS/LVPW 1.2 FS 30.3 % EDV(Teich) 146.0 ml ESV(Teich) 62.7 ml EF(Teich) 57.1 % EDV(cubed) 164.3 ml ESV(cubed) 55.7 ml EF(cubed) 66.1 % % IVS thick 26.3 % % LVPW thick 38.3 % LV mass(C)d 310.6 grams LV mass(C)dI 153.7 grams/m\S\2 LV mass(C)s 279.6 grams LV mass(C)sI 138.4 grams/m\S\2 SV(Teich) 83.3 ml SI(Teich) 41.2 ml/m\S\2 SV(cubed) 108.6 ml SI(cubed) 53.7 ml/m\S\2 Ao root diam 2.4 cm Ao root area 4.6 cm\S\2 ACS 2.0 cm LA dimension 4.0 cm LA/Ao 1.6 LVOT diam 2.0 cm LVOT area 3.0 cm\S\2 LVAd ap4 32.2 cm\S\2 LVLd ap4 7.1 cm EDV(MOD-sp4) 123.6 ml EDV(sp4-el) 123.7 ml LVAs ap4 18.9 cm\S\2 LVLs ap4 6.0 cm ESV(MOD-sp4) 52.7 ml ESV(sp4-el) 50.2 ml EF(MOD-sp4) 57.4 % EF(sp4-el) 59.4 % LVAd ap2 30.2 cm\S\2 LVLd ap2 7.5 cm EDV(MOD-sp2) 104.9 ml EDV(sp2-el) 103.9 ml LVAs ap2 19.7 cm\S\2 LVLs ap2 6.9 cm ESV(MOD-sp2) 49.7 ml ESV(sp2-el) 48.0 ml EF(MOD-sp2) 52.6 % EF(sp2-el) 53.8 % LVLd %diff 4.5 % EDV(MOD-bp) 116.2 ml LVLs %diff 12.4 % ESV(MOD-bp) 54.1 ml EF(MOD-bp) 53.4 % SV(MOD-sp4) 70.9 ml SI(MOD-sp4) 35.1 ml/m\S\2 SV(MOD-sp2) 55.2 ml SI(MOD-sp2) 27.3 ml/m\S\2 SV(MOD-bp) 62.1 ml SI(MOD-bp) 30.7 ml/m\S\2 SV(sp4-el) 73.5 ml SI(sp4-el) 36.4 ml/m\S\2 SV(sp2-el) 55.9 ml SI(sp2-el) 27.7 ml/m\S\2 Doppler Measurements and Calculations MV E max markus 83.0 cm/sec MV A max markus 96.5 cm/sec MV E/A 0.86 MV P1/2t max markus 84.7 cm/sec MV P1/2t 82.5 msec MVA(P1/2t) 2.7 cm\S\2 MV dec slope 300.9 cm/sec\S\2 MV dec time 0.23 sec Ao V2 max 155.8 cm/sec Ao max PG 9.7 mmHg Ao max PG (full) 5.6 mmHg RAMIRO(V,A) 2.0 cm\S\2 RAMIRO(V,D) 2.0 cm\S\2 LV V1 max PG 4.1 mmHg LV V1 max 100.8 cm/sec MR max markus 474.2 cm/sec MR max PG 90.3 mmHg PA V2 max 141.2 cm/sec PA max PG 8.0 mmHg PI max markus 251.9 cm/sec PI max PG 25.4 mmHg PI dec slope 405.6 cm/sec\S\2 PI P1/2t 181.9 msec TR max markus 293.6 cm/sec
[2017-01-12] MEDS: ACETAMINOPHEN 325 MG TAB PO PRN ×2 (15:59→23:36)
[2017-01-12] MEDS: POTASSIUM CHLORIDE 10 MEQ TABCR PO SCH (16:00)
[2017-01-12] MEDS ORDERED: LITHIUM CARBONATE SR 300 MG TAB (LITHOBID) PO SCH (21:00)
[2017-01-12] MEDS: LEVETIRACETAM 500 MG TAB PO SCH (22:21)
[2017-01-12] MEDS: NYSTATIN POWDER 15GM BTL EXT SCH (22:22)
[2017-01-12] MEDS: LITHIUM CARBONATE 300 MG TAB PO SCH (22:22)
[2017-01-12] MEDS: ENOXAPARIN 40 MG/0.4 ML SYR SC SCH (22:23)
[2017-01-13] VITALS (8 sets, daily range): BP systolic 109–144; BP diastolic 58–87; PULSE 76–90; TEMP 36.5–37.2; O2SAT 95–100
[2017-01-13] MEDS: ACETAMINOPHEN 325 MG TAB PO PRN ×3 (03:49→17:54)
[2017-01-13] MEDS: PENICILLIN V POTASSIUM 250 MG TAB PO SCH ×4 (03:49→21:33)
[2017-01-13] MEDS: BENZONATATE 100MG CAP PO SCH ×3 (07:26→21:34)
[2017-01-13] MEDS: LACTULOSE SYRUP 30 GM/45 ML UDP PO SCH ×3 (08:41→21:34)
[2017-01-13] MEDS: LISINOPRIL 5 MG TAB PO SCH (08:42)
[2017-01-13] MEDS: MAGNESIUM OXIDE 400 MG TAB PO SCH (08:42)
[2017-01-13] MEDS: FUROSEMIDE INJ 40 MG in SYRINGE 0 ML IV SCH ×2 (08:43→16:39)
[2017-01-13] MEDS: LEVETIRACETAM 500 MG TAB PO SCH ×2 (08:45→21:35)
[2017-01-13] MEDS: POTASSIUM CHLORIDE 10 MEQ TABCR PO SCH ×2 (08:45→16:40)
[2017-01-13] MEDS: ASPIRIN 81 MG ECTAB PO SCH (08:46)
[2017-01-13] MEDS: LITHIUM CARBONATE 300 MG TAB PO SCH ×2 (08:46→21:36)
[2017-01-13] MEDS: IPRATROPIUM BROMIDE/ALBUTEROL respimat INH INH SCH ×4 (08:46→21:33)
[2017-01-13] MEDS: NYSTATIN POWDER 15GM BTL EXT SCH ×2 (08:47→21:36)
[2017-01-13 08:48] LABS: COMPLETE YES; EOS % 1.2 %; HEMATOCRIT 38.5 % (37-47); IG% 0.2 %; LYMPH % 16.5 %; LYMPH ABS # 0.97 K/uL (1.2-3.4); MEAN CELL VOLUME 95.3 fL (80-100); MEAN CORPUSCULAR HEMOGLOBIN 27.7 pg (25-34); MEAN CORPUSCULAR HGB CONC 29.1 g/dl (32-36); MEAN PLATELET VOLUME 10.2 fL (7.4-10.4); MONO % 11.9 %; NEUT % 70.2 %; PLATELET COUNT 218 K/uL (130-400); RED BLOOD COUNT 4.04 M/uL (4.2-5.4); WHITE BLOOD COUNT 5.89 K/uL (4.8-10.8)
[2017-01-13] MEDS: INSULIN ASPART 100 UNITS/ML 3 ML PEN SC SCH ×4 (08:51→21:38)
[2017-01-13 08:58] LABS: INR 1.1 (0.9-1.1); PARTIAL THROMBOPLASTIN RATIO 1.2; PROTHROMBIN TIME (PATIENT) 11.4 SECONDS (9.0-12.0)
[2017-01-13 09:24] LABS: ALKALINE PHOSPHATASE 95 U/L (45-117); ALT/SGPT 19 U/L (12-78); AST/SGOT 28 U/L (15-37); BLOOD UREA NITROGEN 11 mg/dl (7-18); BUN/CREATININE RATIO 12.7 (10-20); CALCIUM 9.6 mg/dl (8.5-10.1); CARBON DIOXIDE 45 mmol/L (21-32); CHLORIDE 82 mmol/L (98-107); CREATININE 0.88 mg/dl (0.60-1.20); GLUCOSE 217 mg/dl (70-99); MAGNESIUM 2.4 mg/dl (1.8-2.4); POTASSIUM 3.8 mmol/L (3.5-5.1); SODIUM 126 mmol/L (136-145)
--- NOTE | 2017-01-13 11:42 | Hospitalist Progress Note ---
Hospitalist Progress Note Date of Service Jan 13, 2017. Subjective Pt evaluation today including: conversation w/ patient, physical exam, chart review, lab review, review of inpatient medication list Pain: None PO Intake: Tolerating PO diet Voiding: rao catheter in place Patient reports feeling well. She still complains of some shortness of breath and a non-productive cough. She denies any wheezing. Per nursing the patient was alert and doing well this morning. She had been sitting up in the chair and got back into bed by herself. The patient denies fevers, chills, sweats, chest pain, palpitations, claudication, wheezing, nausea, vomiting, abdominal pain, dysuria, hematuria, urinary retention, paralysis, weakness, numbness and tingling. Additional Comments: See HPI for pertinent positives and negatives. All other systems reviewed and negative. Objective Vital Signs Date Time Temp Pulse Resp B/P (MAP) Pulse Ox O2 Delivery O2 Flow Rate FiO2 01/13/17 08:00 Room Air 01/13/17 07:56 36.8 82 18 122/68 (86) 95 82 01/13/17 04:00 100 Nasal Cannula 2.0 01/13/17 02:41 36.5 84 22 144/87 (106) 100 BiPAP 40 01/13/17 00:00 98 Nasal Cannula 2.0 01/12/17 23:57 90 98 40 01/12/17 23:05 37.3 76 21 125/78 (94) 98 Nasal Cannula 2.0 01/12/17 20:00 Nasal Cannula 2.0 01/12/17 19:20 36.7 84 18 122/76 (91) 97 Nasal Cannula 2.0 01/12/17 15:37 37.0 84 18 130/76 (94) 96 Nasal Cannula 2.0 01/12/17 15:30 Nasal Cannula 2.0 01/12/17 12:26 36.5 99 18 131/63 (85) 94 01/12/17 12:00 Nasal Cannula 2.0 Physical Exam Notes: General appearance: +Morbidly obese. Well-developed, well-nourished, no apparent distress Head: Normocephalic, atraumatic Eyes: +Bilateral proptosis. Normal inspection, PERRL, EOMI ENT: Normal ENT inspection, hearing grossly normal, pharynx normal Neck: Supple, no JVD, trachea midline Respiratory/Chest: +Exam limited by poor respiratory effort. Lungs clear to auscultation, normal breath sounds, no respiratory distress Cardiovascular: Regular rate & rhythm, no gallop, no murmur Abdomen/GI: +Umbilical hernia. Normal bowel sounds, non-tender, soft Extremities/Musculoskeletal: +Trace pitting edema. Normal inspection, no calf tenderness Neurological/Psych: Alert, normal mood/affect, oriented x 3 Skin: Normal color, warm/dry, no rash Laboratory Results Last 24 Hours Test 01/12/17 16:15 01/12/17 20:16 01/12/17 22:16 01/13/17 06:43 Bedside Glucose 164 mg/dl 245 mg/dl 174 mg/dl 173 mg/dl Test 01/13/17 08:13 01/13/17 09:55 White Blood Count 5.89 K/uL Red Blood Count 4.04 M/uL Hemoglobin 11.2 g/dL Hematocrit 38.5 % Mean Corpuscular Volume 95.3 fL Mean Corpuscular Hemoglobin 27.7 pg Mean Corpuscular Hemoglobin Concent 29.1 g/dl Platelet Count 218 K/uL Mean Platelet Volume 10.2 fL Neutrophils (%) (Auto) 70.2 % Lymphocytes (%) (Auto) 16.5 % Monocytes (%) (Auto) 11.9 % Eosinophils (%) (Auto) 1.2 % Basophils (%) (Auto) 0.0 % Neutrophils # (Auto) 4.14 K/uL Lymphocytes # (Auto) 0.97 K/uL Monocytes # (Auto) 0.70 K/uL Eosinophils # (Auto) 0.07 K/uL Basophils # (Auto) 0.00 K/uL RDW Standard Deviation 52.9 fL RDW Coefficient of Variation 15.1 % Immature Granulocyte % (Auto) 0.2 % Immature Granulocyte # (Auto) 0.01 K/uL Prothrombin Time 11.4 SECONDS Prothromb Time International Ratio 1.1 Activated Partial Thromboplast Time 30.2 SECONDS Partial Thromboplastin Ratio 1.2 Sodium Level 126 mmol/L Potassium Level 3.8 mmol/L Chloride Level 82 mmol/L Carbon Dioxide Level 45 mmol/L Anion Gap -1.0 mmol/L Blood Urea Nitrogen 11 mg/dl Creatinine 0.88 mg/dl Est Creatinine Clear Calc Drug Dose 76.1 ml/min Estimated GFR () 82.2 Estimated GFR (Non- 70.9 BUN/Creatinine Ratio 12.7 Random Glucose 217 mg/dl Calcium Level 9.6 mg/dl Magnesium Level 2.4 mg/dl Total Bilirubin 0.5 mg/dl Direct Bilirubin mg/dl 0.2 mg/dl Aspartate Amino Transf (AST/SGOT) 28 U/L Alanine Aminotransferase (ALT/SGPT) 19 U/L Alkaline Phosphatase 95 U/L Total Protein 7.3 gm/dl Albumin 3.3 gm/dl Chemistry Specimen Hemolysis Diagnostic Results Echocardiogram: Interpretation Summary * Name: CHARITY BARRIOS Study Date: 01/12/2017 10:54 AM BP: 129/77 mmHg * Patient Location: [facility]\S\E221\S\1 HR: 84 * : 1955 (M/d/yyyy) Gender: Female Height: 62 in * Age: 61 yrs Ethnicity: AA Weight: 228 lb * Ordering Physician: Barbi Koo * Referring Physician: UNKNOWN * Performed By: Aleena Montano RCS * * Reason For Study: CHF * BSA: 2.0 m2 * -- Conclusions -- * Compared to previous study of 12/25/15: LV systolic function is now normal and PASP has reduced. * Mildly dilated LV chamber with mild concentric LVH. * Normal LV systolic function, EF 55-60%. * No segmental left ventricular wall motion abnormalities are noted. * Grade I diastolic dysfunction. * Moderately dilated RV chamber with visually reduced systolic function. * Moderate to severe tricuspid regurgittation. * PASP of 38 mmHg assuming a RA pressure of 3 mmHg. Procedure Details * A complete two-dimensional transthoracic echocardiogram was performed (2D, M-mode, Doppler and color flow Doppler). Left Ventricle * The left ventricle is normal in size. * There is mild concentric left ventricular hypertrophy. * Left ventricular systolic function is normal. * No segmental left ventricular wall motion abnormalities are noted. * Ejection Fraction = 55-60%. * The left ventricular wall motion is normal. Right Ventricle * The right ventricle is severely dilated. * The right ventricular systolic function is moderately reduced. Atria * The left atrium is mildly dilated. * The right atrium is moderately dilated. * No ASD detected; PFO is not assessed. Mitral Valve * The mitral valve is normal in structure and function. Tricuspid Valve * The tricuspid valve anatomy is normal. * There is no tricuspid stenosis. * There is moderate to severe tricuspid regurgitation. Aortic Valve * The aortic valve is normal in structure and function. Pulmonic Valve * The pulmonary valve is not well seen, but the Doppler examination is normal without significant regurgitation or stenosis. Great Vessels * The aortic root is normal size. Pericardium/Pleural * There is no pericardial effusion. Left Ventricular Diastolic Function * Grade I diastolic dysfunction, (abnormal relaxation pattern). Assessment and Plan 61 y/o female with a history of diastolic CHF, respiratory failure with hypercapnia, DM II, HTN, seizure disorder, bipolar disorder and paranoid schizophrenia who presents with shortness of breath and altered mental status. CXR consistent with congestive heart failure. Pt has a h/o respiratory failure with CO2 retention and is supposed to be on BiPAP every night but has h/o noncompliance with this and resulting encephalopathy. Acute on chronic diastolic CHF, respiratory acidosis and encephalopathy, h/o respiratory failure--improving -Admit to telemetry. No acute events overnight. Pt in sinus rhythm with PVCs with HR in 70s-80s -O2 by protocol, and BiPAP at nighttime. Pt is supposed to be on BiPAP every night at home but is noncompliant. -Continue Lasix 40 mg IV BID -Continue Rao catheter -Urine output 4000 cc, net balance -5028 cc on 01/12 -Fluid restriction 1500 mL -Pt alert and oriented x 3, diet ordered -Will restart home PO meds -Echo completed: * -- Conclusions -- * Compared to previous study of 12/25/15: LV systolic function is now normal and PASP has reduced. * Mildly dilated LV chamber with mild concentric LVH. * Normal LV systolic function, EF 55-60%. * No segmental left ventricular wall motion abnormalities are noted. * Grade I diastolic dysfunction. * Moderately dilated RV chamber with visually reduced systolic function. * Moderate to severe tricuspid regurgittation. * PASP of 38 mmHg assuming a RA pressure of 3 mmHg. -Continue Combivent inhaler QID -Continue potassium supplement -Urine culture negative, blood cultures NGTD x 2 Dental infection--pt started on penicillin as an outpatient by dentist, confirmed with pt's pharmacy -Continue Pen VK 500 mg PO q6h x 4 days to complete course DM II--last HgbA1c check 11/30/16 was 7.4 -Resume home Lantus at 80% home dose. Lantus 10 units SC BID for now, can increase back to home dose if still hyperglycemic -Insulin sliding scale -Check BSGs q ac and qhs HTN--stable -Continue lisinopril 5 mg PO qd Seizure disorder -Continue levetiracetam 500 mg PO BID Bipolar disorder, paranoid schizophrenia -Continue lithium 300 mg PO BID DVT prophylaxis -Enoxaparin 40 mg SC q24h -JAYDON Lamas Code Status -Level I, FULL RESUSCITATION STATUS Dispo -Pt from home -supervisor gate services consulted -PT/OT evaluate and treat
[2017-01-13] MEDS ORDERED: INSULIN GLARGINE SOLOSTAR 100 UNITS/ML 3 ML PEN SC ONE (12:00)
[2017-01-13] MEDS ORDERED: INSULIN GLARGINE SOLOSTAR 100 UNITS/ML 3 ML PEN SC SCH (21:00)
[2017-01-13] MEDS: ENOXAPARIN 40 MG/0.4 ML SYR SC SCH (21:35)
[2017-01-14] VITALS (11 sets, daily range): BP systolic 104–122; BP diastolic 59–73; PULSE 90–92; TEMP 36.6–37.3; O2SAT 92–98
[2017-01-14] MEDS: BENZONATATE 100MG CAP PO SCH ×3 (06:13→21:31)
[2017-01-14] MEDS: PENICILLIN V POTASSIUM 250 MG TAB PO SCH ×3 (06:14→17:32)
[2017-01-14 06:29] LABS: BASO % 0.2 %; BASO ABS # 0.01 K/uL (0-0.2); COMPLETE YES; EOS % 1.2 %; HEMATOCRIT 36.8 % (37-47); IG% 0.4 %; LYMPH % 15.5 %; LYMPH ABS # 0.88 K/uL (1.2-3.4); MEAN CELL VOLUME 96.6 fL (80-100); MEAN CORPUSCULAR HEMOGLOBIN 28.1 pg (25-34); MEAN CORPUSCULAR HGB CONC 29.1 g/dl (32-36); MONO % 11.1 %; NEUT % 71.6 %; PLATELET COUNT 210 K/uL (130-400); RED BLOOD COUNT 3.81 M/uL (4.2-5.4); WHITE BLOOD COUNT 5.66 K/uL (4.8-10.8)
[2017-01-14 06:40] LABS: PARTIAL THROMBOPLASTIN RATIO 1.1
[2017-01-14 06:59] LABS: CALCIUM 9.5 mg/dl (8.5-10.1); MAGNESIUM 2.5 mg/dl (1.8-2.4)
[2017-01-14] MEDS: FUROSEMIDE INJ 40 MG in SYRINGE 0 ML IV SCH ×2 (08:46→17:31)
[2017-01-14] MEDS: LISINOPRIL 5 MG TAB PO SCH (08:46)
[2017-01-14] MEDS: IPRATROPIUM BROMIDE/ALBUTEROL respimat INH INH SCH ×4 (08:46→21:44)
[2017-01-14] MEDS: LACTULOSE SYRUP 30 GM/45 ML UDP PO SCH ×3 (08:46→21:29)
[2017-01-14] MEDS: POTASSIUM CHLORIDE 10 MEQ TABCR PO SCH ×2 (08:47→17:28)
[2017-01-14] MEDS: NYSTATIN POWDER 15GM BTL EXT SCH ×2 (08:49→21:28)
[2017-01-14] MEDS: INSULIN ASPART 100 UNITS/ML 3 ML PEN SC SCH ×4 (08:49→21:34)
[2017-01-14] MEDS: MAGNESIUM OXIDE 400 MG TAB PO SCH (08:50)
[2017-01-14] MEDS: LEVETIRACETAM 500 MG TAB PO SCH ×2 (08:50→21:30)
[2017-01-14] MEDS: LITHIUM CARBONATE 300 MG TAB PO SCH ×2 (08:50→21:31)
[2017-01-14] MEDS: ASPIRIN 81 MG ECTAB PO SCH (08:51)
[2017-01-14] MEDS: INSULIN GLARGINE SOLOSTAR 100 UNITS/ML 3 ML PEN SC SCH ×2 (08:54→21:34)
[2017-01-14] MEDS: ACETAMINOPHEN 325 MG TAB PO PRN ×4 (09:01→22:36)
--- NOTE | 2017-01-14 15:11 | Hospitalist Progress Note ---
Hospitalist Progress Note Date of Service Jan 14, 2017. Subjective Pt evaluation today including: conversation w/ patient, physical exam, chart review, lab review, review of inpatient medication list Pain: None PO Intake: Tolerating PO diet Voiding: rao catheter in place Patient reports feeling well. She denies any shortness of breath. She does complain of a non-productive cough. She denies other complaints. Per nursing the patient has been complaining of generalized pain, but she did not voice these complaints to me. The patient denies fevers, chills, sweats, chest pain, palpitations, claudication, wheezing, shortness of breath, nausea, vomiting, abdominal pain, dysuria, hematuria, urinary retention, paralysis, weakness, numbness and tingling. Additional Comments: See HPI for pertinent positives and negatives. All other systems reviewed and negative. Objective Vital Signs Date Time Temp Pulse Resp B/P (MAP) Pulse Ox O2 Delivery O2 Flow Rate FiO2 01/14/17 12:00 96 Nasal Cannula 2.0 01/14/17 11:13 37.3 90 22 114/71 (85) 96 Nasal Cannula 2.0 01/14/17 08:00 95 Nasal Cannula 2.0 01/14/17 07:26 37.0 90 22 122/72 (89) 95 Nasal Cannula 2.0 01/14/17 04:00 Nasal Cannula 2.0 01/14/17 00:02 90 98 40 01/14/17 00:00 Nasal Cannula 2.0 01/13/17 23:07 36.6 90 20 109/69 (82) 97 Nasal Cannula 2.0 01/13/17 20:00 Nasal Cannula 2.0 01/13/17 19:10 37.2 83 18 114/70 (85) 96 Nasal Cannula 2.0 01/13/17 16:00 Nasal Cannula 2.0 01/13/17 15:44 37.0 76 16 124/58 (80) 95 Physical Exam Notes: General appearance: +Morbidly obese. Well-developed, well-nourished, no apparent distress Head: Normocephalic, atraumatic Eyes: +Bilateral proptosis. Normal inspection, PERRL, EOMI ENT: Normal ENT inspection, hearing grossly normal, pharynx normal Neck: Supple, no JVD, trachea midline Respiratory/Chest: +Decreased breath sounds. Lungs clear to auscultation, normal breath sounds, no respiratory distress Cardiovascular: Regular rate & rhythm, no gallop, no murmur Abdomen/GI: +Umbilical hernia. Normal bowel sounds, non-tender, soft Extremities/Musculoskeletal: +Trace pitting edema. Normal inspection, no calf tenderness Neurological/Psych: Alert, normal mood/affect, oriented x 3 Skin: Normal color, warm/dry, no rash Laboratory Results Last 24 Hours Test 01/13/17 16:14 01/13/17 20:49 01/14/17 06:10 01/14/17 06:19 Bedside Glucose 90 mg/dl 160 mg/dl 201 mg/dl White Blood Count 5.66 K/uL Red Blood Count 3.81 M/uL Hemoglobin 10.7 g/dL Hematocrit 36.8 % Mean Corpuscular Volume 96.6 fL Mean Corpuscular Hemoglobin 28.1 pg Mean Corpuscular Hemoglobin Concent 29.1 g/dl Platelet Count 210 K/uL Mean Platelet Volume 9.0 fL Neutrophils (%) (Auto) 71.6 % Lymphocytes (%) (Auto) 15.5 % Monocytes (%) (Auto) 11.1 % Eosinophils (%) (Auto) 1.2 % Basophils (%) (Auto) 0.2 % Neutrophils # (Auto) 4.05 K/uL Lymphocytes # (Auto) 0.88 K/uL Monocytes # (Auto) 0.63 K/uL Eosinophils # (Auto) 0.07 K/uL Basophils # (Auto) 0.01 K/uL RDW Standard Deviation 54.7 fL RDW Coefficient of Variation 15.4 % Immature Granulocyte % (Auto) 0.4 % Immature Granulocyte # (Auto) 0.02 K/uL Prothrombin Time 11.0 SECONDS Prothromb Time International Ratio 1.0 Activated Partial Thromboplast Time 28.5 SECONDS Partial Thromboplastin Ratio 1.1 Sodium Level 134 mmol/L Potassium Level 4.0 mmol/L Chloride Level 88 mmol/L Carbon Dioxide Level 46 mmol/L Anion Gap 0.0 mmol/L Blood Urea Nitrogen 15 mg/dl Creatinine 1.00 mg/dl Est Creatinine Clear Calc Drug Dose 66.1 ml/min Estimated GFR () 70.4 Estimated GFR (Non- 60.8 BUN/Creatinine Ratio 15.0 Random Glucose 207 mg/dl Calcium Level 9.5 mg/dl Magnesium Level 2.5 mg/dl Total Bilirubin 0.4 mg/dl Direct Bilirubin 0.2 mg/dl Aspartate Amino Transf (AST/SGOT) 23 U/L Alanine Aminotransferase (ALT/SGPT) 19 U/L Alkaline Phosphatase 89 U/L Total Protein 7.1 gm/dl Albumin 3.1 gm/dl Test 01/14/17 11:19 Bedside Glucose 217 mg/dl Assessment and Plan 61 y/o female with a history of diastolic CHF, respiratory failure with hypercapnia, DM II, HTN, seizure disorder, bipolar disorder and paranoid schizophrenia who presents with shortness of breath and altered mental status. CXR consistent with congestive heart failure. Pt has a h/o respiratory failure with CO2 retention and is supposed to be on BiPAP every night but has h/o noncompliance with this and resulting encephalopathy. Acute on chronic diastolic CHF, respiratory acidosis and encephalopathy, h/o respiratory failure--improving -Admit to telemetry. No acute events overnight. Pt in sinus rhythm with PVCs with HR in 80s-90s -O2 by protocol, and BiPAP at nighttime. Pt is supposed to be on BiPAP every night at home but is noncompliant. -Continue Lasix 40 mg IV BID -Continue Rao catheter -Urine output 6750 cc, net balance -5210 cc on 01/13 -Fluid restriction 1500 mL -Pt alert and oriented x 3, diet ordered -Will restart home PO meds -Echo completed: * -- Conclusions -- * Compared to previous study of 12/25/15: LV systolic function is now normal and PASP has reduced. * Mildly dilated LV chamber with mild concentric LVH. * Normal LV systolic function, EF 55-60%. * No segmental left ventricular wall motion abnormalities are noted. * Grade I diastolic dysfunction. * Moderately dilated RV chamber with visually reduced systolic function. * Moderate to severe tricuspid regurgittation. * PASP of 38 mmHg assuming a RA pressure of 3 mmHg. -Continue Combivent inhaler QID -Continue potassium supplement -Urine culture negative, blood cultures NGTD x 2 Dental infection--pt started on penicillin as an outpatient by dentist, confirmed with pt's pharmacy -Continue Pen VK 500 mg PO q6h x 4 days to complete course DM II--last HgbA1c check 11/30/16 was 7.4 -Increase Lantus 14 units SC BID (home dose) -Insulin sliding scale -Check BSGs q ac and qhs HTN--stable -Continue lisinopril 5 mg PO qd Seizure disorder -Continue levetiracetam 500 mg PO BID Bipolar disorder, paranoid schizophrenia -Continue lithium 300 mg PO BID DVT prophylaxis -Enoxaparin 40 mg SC q24h -JAYDON smith and Heaven[facility] Code Status -Level I, FULL RESUSCITATION STATUS Dispo -Pt from home -enrollment services dean consulted. Pt accepted at [facility] but is working out financial concerns -PT/OT evaluate and treat: recommend 24 hour care at SNF with rehab services
[2017-01-14] MEDS: ENOXAPARIN 40 MG/0.4 ML SYR SC SCH (21:31)
[2017-01-15] VITALS: O2SAT 92
[2017-01-15] MEDS: PENICILLIN V POTASSIUM 250 MG TAB PO SCH ×5 (00:02→23:48)
[2017-01-15 02:00] VITALS: PULSE 92; O2SAT 97
[2017-01-15] MEDS: ACETAMINOPHEN 325 MG TAB PO PRN ×3 (05:51→21:04)
[2017-01-15] MEDS: BENZONATATE 100MG CAP PO SCH ×3 (05:52→21:12)
[2017-01-15 06:47] LABS: HEMATOCRIT 38.3 % (37-47); MEAN CELL VOLUME 97.2 fL (80-100); MEAN CORPUSCULAR HEMOGLOBIN 26.6 pg (25-34); MEAN CORPUSCULAR HGB CONC 27.4 g/dl (32-36); MEAN PLATELET VOLUME 9.6 fL (7.4-10.4); PLATELET COUNT 237 K/uL (130-400); RED BLOOD COUNT 3.94 M/uL (4.2-5.4); WHITE BLOOD COUNT 6.05 K/uL (4.8-10.8)
[2017-01-15 07:27] VITALS: BP 108/65; PULSE 93; TEMP 36.8; O2SAT 91
[2017-01-15 07:30] LABS: BUN/CREATININE RATIO 17.3 (10-20); CALCIUM 9.5 mg/dl (8.5-10.1); CREATININE 0.81 mg/dl (0.60-1.20); MAGNESIUM 2.5 mg/dl (1.8-2.4); POTASSIUM 3.8 mmol/L (3.5-5.1)
[2017-01-15] MEDS: IPRATROPIUM BROMIDE/ALBUTEROL respimat INH INH SCH ×4 (08:04→21:03)
[2017-01-15] MEDS: NYSTATIN POWDER 15GM BTL EXT SCH ×2 (08:04→21:03)
[2017-01-15] MEDS: LACTULOSE SYRUP 30 GM/45 ML UDP PO SCH ×3 (08:04→21:04)
[2017-01-15] MEDS: LISINOPRIL 5 MG TAB PO SCH (08:04)
[2017-01-15] MEDS: LEVETIRACETAM 500 MG TAB PO SCH ×2 (08:05→21:03)
[2017-01-15] MEDS: ASPIRIN 81 MG ECTAB PO SCH (08:05)
[2017-01-15] MEDS: LITHIUM CARBONATE 300 MG TAB PO SCH (08:05)
[2017-01-15] MEDS: MAGNESIUM OXIDE 400 MG TAB PO SCH (08:05)
[2017-01-15] MEDS: POTASSIUM CHLORIDE 10 MEQ TABCR PO SCH ×2 (08:05→17:04)
[2017-01-15] MEDS: INSULIN ASPART 100 UNITS/ML 3 ML PEN SC SCH ×4 (08:12→21:10)
[2017-01-15] MEDS: INSULIN GLARGINE SOLOSTAR 100 UNITS/ML 3 ML PEN SC SCH ×2 (08:13→21:11)
[2017-01-15] MEDS: FUROSEMIDE INJ 40 MG in SYRINGE 0 ML IV SCH (08:15)
--- NOTE | 2017-01-15 09:10 | Progress Note ---
Subjective Date of Service: Jan 15, 2017. Subjective Pt evaluation today including: conversation w/ patient, physical exam, chart review, lab review, review of studies, conversation w/ art consultant, review of inpatient medication list Report doing okay, in bed, eating breakfast, awake and alert and orientated Conversational No complaining Problem List Medical Problems: (1) Acute CHF Status: Acute (2) Altered mental status Status: Acute (3) Change in mental status Status: Acute (4) CHF (congestive heart failure) Status: Acute (5) CHF (congestive heart failure) Status: Acute (6) CO2 retention Status: Acute (7) Fall Status: Acute (8) Hyperammonemia Status: Acute (9) Hyperammonemia Status: Acute (10) Hyperammonemia Permanent Comment: Non cirrhotic hyperammonemia Status: Acute (11) Hyperammonemia Status: Acute (12) Hypercalcemia Status: Acute (13) Hypercarbia Status: Acute (14) Hypercarbia Status: Acute (15) Hypercarbia Status: Acute (16) Hyperglycemia Status: Acute (17) Hypokalemia Status: Acute (18) Hyponatremia Status: Acute (19) Hyponatremia Status: Acute (20) Hyponatremia Status: Acute (21) Lower extremity weakness Status: Acute (22) Seizure Status: Acute (23) SOB (shortness of breath) Status: Acute (24) Weakness Status: Acute Review of Systems Constitutional: + fatigue, No fever, No chills, No sweats, No weight loss, No problem reported Eyes: No worsening of vision, No eye pain, No redness, No discharge, No diplopia ENT: No hearing loss, No unusual epistaxis, No nasal symptoms, No sore throat, No tinnitus, No dental problems, No trouble swallowing Respiratory: + shortness of breath (in baseline), No cough, No sputum, No wheezing, No dyspnea on exertion, No dyspnea at rest, No hemoptysis Cardiac: No chest pain, No orthopnea, No PND, No edema, No claudication, No palpitations Abdomen: No pain, No nausea, No vomiting, No diarrhea, No constipation Musculoskeletal: No joint pain, No muscle pain, No swelling, No calf pain Female : No dysuria, No urinary frequency, No hematuria, No incontinence, No abnormal vaginal bleeding, No vaginal discharge Neurologic: No memory loss, No paralysis, No weakness, No numbness/tingling, No vertigo, No balance problems Psychiatric: No depression symptoms, No anhedonism, No anxiety, No insomnia, No substance abuse Heme: No abnormal bleeding/bruising, No clotting problems, No swollen lymph nodes, No night sweats Endo: No fatigue, No excessive thirst, No excessive urination Skin: No rash, No itch, No new/changing skin lesions, No color change, No bleeding Objective Vital Signs Date Time Temp Pulse Resp B/P (MAP) Pulse Ox O2 Delivery O2 Flow Rate FiO2 01/15/17 07:27 36.8 93 18 108/65 (79) 91 Nasal Cannula 2.0 01/15/17 02:00 92 97 40 01/15/17 00:00 92 Room Air 2.0 01/14/17 23:47 36.6 91 20 112/73 (86) 97 2.0 01/14/17 20:03 37.0 92 20 112/65 (81) 95 Nasal Cannula 2.0 01/14/17 20:00 92 Room Air 2.0 01/14/17 19:18 37.3 92 22 92 2.0 01/14/17 16:00 92 Room Air 01/14/17 15:52 37.3 92 22 104/59 (74) 92 Nasal Cannula 2.0 01/14/17 12:00 96 Nasal Cannula 2.0 01/14/17 11:13 37.3 90 22 114/71 (85) 96 Nasal Cannula 2.0 Physical Exam General Appearance: WD/WN, no apparent distress, + pertinent finding (obesity) Eyes: normal inspection, PERRL, EOMI, sclerae normal ENT: normal ENT inspection, hearing grossly normal, pharynx normal Neck: supple, no adenopathy, thyroid normal, no JVD, no carotid bruits, trachea midline Respiratory/Chest: chest non-tender, normal breath sounds, no respiratory distress, no accessory muscle use, + decreased breath sounds Cardiovascular: regular rate, rhythm, no edema, no gallop, no JVD, no murmur Abdomen: normal bowel sounds, non tender, soft, no organomegaly, no pulsatile mass, + pertinent finding (Iniguez catheter was removed) Extremities: normal range of motion, non-tender, normal inspection, no pedal edema, no calf tenderness, normal capillary refill, pelvis stable 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: cleaner II-XII nml as tested, no motor/sensory deficits, alert, normal mood/affect, oriented x 3 Skin: normal color, warm/dry, no rash Lymphatic: no adenopathy Laboratory Results Last 24 Hours Test 01/14/17 11:19 01/14/17 16:05 01/14/17 19:48 01/15/17 05:51 Bedside Glucose 217 mg/dl 109 mg/dl 163 mg/dl White Blood Count 6.05 K/uL Red Blood Count 3.94 M/uL Hemoglobin 10.5 g/dL Hematocrit 38.3 % Mean Corpuscular Volume 97.2 fL Mean Corpuscular Hemoglobin 26.6 pg Mean Corpuscular Hemoglobin Concent 27.4 g/dl RDW Standard Deviation 54.4 fL RDW Coefficient of Variation 15.3 % Platelet Count 237 K/uL Mean Platelet Volume 9.6 fL Sodium Level 134 mmol/L Potassium Level 3.8 mmol/L Chloride Level 90 mmol/L Carbon Dioxide Level 45 mmol/L Anion Gap -1.0 mmol/L Blood Urea Nitrogen 14 mg/dl Creatinine 0.81 mg/dl Est Creatinine Clear Calc Drug Dose 81.6 ml/min Estimated GFR () 90.9 Estimated GFR (Non- 78.4 BUN/Creatinine Ratio 17.3 Random Glucose 141 mg/dl Calcium Level 9.5 mg/dl Magnesium Level 2.5 mg/dl Test 01/15/17 07:42 Bedside Glucose 150 mg/dl Assessment and Plan 61 y/o female with a history of diastolic CHF, respiratory failure with hypercapnia, DM II, HTN, seizure disorder, bipolar disorder and paranoid schizophrenia who presents with shortness of breath and altered mental status. CXR consistent with congestive heart failure. Pt has a h/o respiratory failure with CO2 retention and is supposed to be on BiPAP every night but has h/o noncompliance with this and resulting encephalopathy. Has been approach to baseline, is discussion about discharge plan Acute on chronic diastolic CHF, respiratory acidosis and encephalopathy, h/o respiratory failure improving -Admit to telemetry. No acute events overnight. Pt in sinus rhythm with PVCs with HR in 80s-90s - [facility] -O2 by protocol, and BiPAP at nighttime. Pt is supposed to be on BiPAP every night at home but is noncompliant. - Now NC O2 2 L per min, which is in her baseline home concentration -Has been on Lasix 40 mg IV BID, totally has 11.6 L negative and 8 kg weight lost so far in this admission, changed IV Lasix to by mouth 40 mg by mouth twice a day -disontinued Iniguez catheter yesterday -Fluid restriction 1500 mL -Pt alert and oriented x 3, diet ordered -Echo completed: * -- Conclusions -- * Compared to previous study of 12/25/15: LV systolic function is now normal and PASP has reduced. * Mildly dilated LV chamber with mild concentric LVH. * Normal LV systolic function, EF 55-60%. * No segmental left ventricular wall motion abnormalities are noted. * Grade I diastolic dysfunction. * Moderately dilated RV chamber with visually reduced systolic function. * Moderate to severe tricuspid regurgittation. * PASP of 38 mmHg assuming a RA pressure of 3 mmHg. -Continue Combivent inhaler QID -Continue potassium supplement -Urine culture negative, blood cultures NGTD x 2 Dental infection--pt started on penicillin as an outpatient by dentist, confirmed with pt's pharmacy -Continue Pen VK 500 mg PO q6h x 3 days to complete course DM II--last HgbA1c check 11/30/16 was 7.4 -Increase Lantus 14 units SC BID (home dose) -Insulin sliding scale -Check BSGs q ac and qhs HTN--stable -Continue lisinopril 5 mg PO qd Seizure disorder -Continue levetiracetam 500 mg PO BID Bipolar disorder, paranoid schizophrenia -Continue lithium 300 mg PO BID DVT prophylaxis -Enoxaparin 40 mg SC q24h -JAYDON Garcias Code Status -Level I, FULL RESUSCITATION STATUS Dispo -Pt from home -marketing services manager consulted. Pt accepted at [facility] but is working out financial concerns -PT/OT evaluate and treat: recommend 24 hour care at SNF with rehab services - However patient dis not want to go to the care home, initially want to go home - Today was present on nurse discussed about the discharge plan, patient is awake and alert and orientated, conversational, discussed about risk and benefit of going home or rehabilitation or care home, patient seems competent to make decision, - We'll have psychiatry evaluation for the competence of decision making - If she is not competent for decision making, and then will arrange the discharge plan per her wishes Continued [facility] stay due to: home environment unsafe for pt Discharge planning: uncertain
--- NOTE | 2017-01-15 10:05 | Psychiatric Consultation ---
Consultation Date of Consultation Jan 15, 2017. Identifying Data 61 yo female lives with her in [place]. Consult is for capacity re: refusal of halfway/rehab. Patient previously seen on consult service in 2014, longstanding patient of Dr. Clemente at [facility]. Chief Complaint "I'm going home". History of Present Illness patient was admitted several days ago with AMS, SOB and found to have CHF, hypercapneic respiratory failure. She is reportedly non-compliant with bipap at home. Her ammonia level was elevated (last draw >80 on 01/11) and she has been hospitalized repeatedly for low sodium and has a history of lithium toxicity. Current [place] level is 1.0 with appropriate BUN/Cr. She hasn't been a behavioral problem on floor but does yell when rehab is discussed. expressed concerns about ability to care for her at home and she has gone back and forth on her willingness to go to a facility for additional care. She will not engage with me in any discussions re: her medical conditions or risks of returning home. Past Psychiatric History Current OP Treatment: psychiatrist (Dr. Clemente, [facility]) Prior Psych Hospitalizations: [facility] (1992, 1997), [facility] (multiple, last 2009 for schizoaffective disorder), other ([facility] 2008) Access to a Gun: No Past Medical/Surgical History (1) Hyponatremia (2) Hypokalemia (3) Altered mental status (4) [place] toxicity (5) Seizure-like activity (6) Acute respiratory failure with hypoxia and hypercapnia (7) CHF exacerbation (8) Anemia (9) ACUTE RENAL FAILURE NOS (10) DIAB ROSA WO COMPL, TYPE II OR UNSPEC TYPE, NOT UNCNTRLD Allergies Allergies: Coded Allergies: Penicillins (Unverified Allergy, Unknown, unknown, 12/04/16) Home Medications Scheduled Aspirin (Aspirin Ec), 81 MG PO QAM Benzonatate (Tessalon Perles), 200 MG PO Q8 Cholecalciferol (Vitamin D3), 1,000 INTER.UNIT PO QAM Furosemide (Lasix), 40 MG PO BID Haloperidol Decanoate (Haldol Decanoate 100), 1 ML IM MONTHLY Insulin Aspart (Novolog), 0 SQ UD Insulin Glargine (Lantus Solostar), 14 UNITS SC AMPM Ipratropium-Albuterol (Combivent Respimat), 1 PUFFS INH QID Lactulose (Lactulose), 30 GM PO TID Levetiractam (Levetiracetam), 500 MG PO BID Lisinopril (Lisinopril), 5 MG PO QAM [place] Carbonate ([place] Carbonate), 300 MG PO QAM [place] Carbonate ([place] Carbonate ER), 300 MG PO HS Magnesium Oxide (Mag-Ox), 400 MG PO QAM Nystatin (Nystop), 1 APPLN TOP BID Potassium Chloride (Micro-K Ext Rel), 40 MEQ PO BID Scheduled PRN Metolazone (Zaroxolyn), 5 MG PO DAILY PRN for ud Polyethylene (Miralax), 17 GM PO DAILY PRN for Constipation Family History FH: HTN (hypertension) FH: diabetes mellitus Heart disease sone with bipolar psychosis Alcohol Use Alcohol Use In Past 12 Months: No Smoking Use Smoking Status: Never Smoker Substance History denied Personal History Lives in: [place] Review of Systems patient is unable to complete Examination Vital Signs Vital Signs Past 12 Hours Date Time Temp Pulse Resp B/P (MAP) Pulse Ox O2 Delivery O2 Flow Rate FiO2 01/15/17 07:27 36.8 93 18 108/65 (79) 91 Nasal Cannula 2.0 01/15/17 02:00 92 97 40 01/15/17 00:00 92 Room Air 2.0 01/14/17 23:47 36.6 91 20 112/73 (86) 97 2.0 Laboratory Results Last 24 Hours Test 01/14/17 11:19 01/14/17 16:05 01/14/17 19:48 01/15/17 05:51 Bedside Glucose 217 mg/dl 109 mg/dl 163 mg/dl White Blood Count 6.05 K/uL Red Blood Count 3.94 M/uL Hemoglobin 10.5 g/dL Hematocrit 38.3 % Mean Corpuscular Volume 97.2 fL Mean Corpuscular Hemoglobin 26.6 pg Mean Corpuscular Hemoglobin Concent 27.4 g/dl RDW Standard Deviation 54.4 fL RDW Coefficient of Variation 15.3 % Platelet Count 237 K/uL Mean Platelet Volume 9.6 fL Sodium Level 134 mmol/L Potassium Level 3.8 mmol/L Chloride Level 90 mmol/L Carbon Dioxide Level 45 mmol/L Anion Gap -1.0 mmol/L Blood Urea Nitrogen 14 mg/dl Creatinine 0.81 mg/dl Est Creatinine Clear Calc Drug Dose 81.6 ml/min Estimated GFR () 90.9 Estimated GFR (Non- 78.4 BUN/Creatinine Ratio 17.3 Random Glucose 141 mg/dl Calcium Level 9.5 mg/dl Magnesium Level 2.5 mg/dl Test 01/15/17 07:42 Bedside Glucose 150 mg/dl Mental Examination During interview pt is: uncooperative Appearance: disheveled Eye contact is: poor Motor behavior is: no abnormal motor movements Speech: other (dysarthric) Affect: blunted Mood is: irritable Thought process: blocking, concrete Suicidal thought are: denied Homicidal thoughts are: denied Hallucinations: other (did not appear to be responding to internal stimuli) Cognition: other (impaired in all spheres) Insight: impaired Judgement: impaired Impression / Recommendations Impression 61 yo female with schizoaffective disorder presents with ongoing AMS/evidence of encephalopathy which is multi-factorial--hyperammonemia, patients can be lithium toxic even at levels of 1.0 given age and medical co-morbidities, etc. agrees that she is slowed and disorganized compared to baseline related to AMS due to medical conditions. 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 Already got 300 mg of lithium this am, will hold pm dose and restart at lower dose of 150 mg po BID tomorrow. Will need repeat level in 5 days. defer repeat of ammonia level/underlying medical causes to primary medical team patient remains altered from baseline due to [facility] and does NOT have capacity to make medical decisions at this time. agrees with this assessment and is supportive of rehab placement. there is no indication for inpatient psychiatric admission at this time and she should be considered psychiatrically stable for discharge to appropriate level of nursing care.
[2017-01-15 15:33] VITALS: BP 114/62; PULSE 93; TEMP 36.8; O2SAT 98
[2017-01-15] MEDS ORDERED: FUROSEMIDE 40 MG TAB PO SCH (17:00)
[2017-01-15] MEDS: ENOXAPARIN 40 MG/0.4 ML SYR SC SCH (21:12)
[2017-01-15 23:26] VITALS: BP 113/75; PULSE 89; TEMP 36.3; O2SAT 96
[2017-01-16 00:23] VITALS: PULSE 80; O2SAT 96
[2017-01-16] MEDS: PENICILLIN V POTASSIUM 250 MG TAB PO SCH (06:21)
[2017-01-16] MEDS: BENZONATATE 100MG CAP PO SCH ×3 (06:21→21:02)
[2017-01-16 06:28] LABS: HEMATOCRIT 37.6 % (37-47); MEAN CELL VOLUME 97.4 fL (80-100); MEAN CORPUSCULAR HEMOGLOBIN 27.7 pg (25-34); MEAN CORPUSCULAR HGB CONC 28.5 g/dl (32-36); PLATELET COUNT 236 K/uL (130-400); RED BLOOD COUNT 3.86 M/uL (4.2-5.4); WHITE BLOOD COUNT 6.37 K/uL (4.8-10.8)
[2017-01-16 07:09] LABS: CALCIUM 9.6 mg/dl (8.5-10.1); CREATININE 0.8 mg/dl (0.60-1.20); MAGNESIUM 2.7 mg/dl (1.8-2.4); POTASSIUM 4.4 mmol/L (3.5-5.1)
[2017-01-16 07:56] VITALS: BP 92/57; PULSE 87; TEMP 36.9; O2SAT 96
[2017-01-16] MEDS: LISINOPRIL 5 MG TAB PO SCH (08:00)
[2017-01-16] MEDS: ASPIRIN 81 MG ECTAB PO SCH (09:22)
[2017-01-16] MEDS: LITHIUM CARBONATE 300 MG TAB PO SCH ×2 (09:23→20:44)
[2017-01-16] MEDS: LEVETIRACETAM 500 MG TAB PO SCH ×2 (09:24→20:45)
[2017-01-16] MEDS: POTASSIUM CHLORIDE 10 MEQ TABCR PO SCH (09:24)
[2017-01-16] MEDS: MAGNESIUM OXIDE 400 MG TAB PO SCH (09:24)
[2017-01-16] MEDS: NYSTATIN POWDER 15GM BTL EXT SCH ×2 (09:25→21:00)
[2017-01-16] MEDS: IPRATROPIUM BROMIDE/ALBUTEROL respimat INH INH SCH ×4 (09:25→21:00)
[2017-01-16] MEDS: LACTULOSE SYRUP 30 GM/45 ML UDP PO SCH ×3 (09:26→21:01)
[2017-01-16] MEDS: INSULIN ASPART 100 UNITS/ML 3 ML PEN SC SCH ×4 (09:33→20:43)
[2017-01-16] MEDS: INSULIN GLARGINE SOLOSTAR 100 UNITS/ML 3 ML PEN SC SCH ×2 (09:35→20:43)
[2017-01-16] MEDS: ACETAMINOPHEN 325 MG TAB PO PRN ×3 (09:38→20:41)
--- NOTE | 2017-01-16 11:14 | Progress Note ---
Subjective Date of Service: Jan 16, 2017. Subjective Pt evaluation today including: conversation w/ patient, conversation w/ family , chart review, lab review, conversation w/ oncology consultant, review of inpatient medication list Doing fairly okay, no complaining, eating/voiding good Problem List Medical Problems: (1) Acute CHF Status: Acute (2) Altered mental status Status: Acute (3) Change in mental status Status: Acute (4) CHF (congestive heart failure) Status: Acute (5) CHF (congestive heart failure) Status: Acute (6) CO2 retention Status: Acute (7) Fall Status: Acute (8) Hyperammonemia Status: Acute (9) Hyperammonemia Status: Acute (10) Hyperammonemia Permanent Comment: Non cirrhotic hyperammonemia Status: Acute (11) Hyperammonemia Status: Acute (12) Hypercalcemia Status: Acute (13) Hypercarbia Status: Acute (14) Hypercarbia Status: Acute (15) Hypercarbia Status: Acute (16) Hyperglycemia Status: Acute (17) Hypokalemia Status: Acute (18) Hyponatremia Status: Acute (19) Hyponatremia Status: Acute (20) Hyponatremia Status: Acute (21) Lower extremity weakness Status: Acute (22) Seizure Status: Acute (23) SOB (shortness of breath) Status: Acute (24) Weakness Status: Acute Review of Systems Constitutional: + weakness, + fatigue, No see HPI, No fever, No chills, No sweats, No weight loss, No problem reported Eyes: No see HPI, No worsening of vision, No eye pain, No redness, No discharge , No diplopia, No problem reported ENT: No see HPI, No hearing loss, No unusual epistaxis, No nasal symptoms, No sore throat, No tinnitus, No dental problems, No trouble swallowing, No problem reported Respiratory: + shortness of breath, No see HPI, No cough, No sputum, No wheezing, No dyspnea on exertion, No dyspnea at rest, No hemoptysis, No problem reported Cardiac: No see HPI, No chest pain, No orthopnea, No PND, No edema, No claudication, No palpitations, No problem reported Abdomen: No see HPI, No pain, No nausea, No vomiting, No diarrhea, No constipation, No GI bleeding, No problem reported Musculoskeletal: No see HPI, No joint pain, No muscle pain, No swelling, No calf pain, No problem reported Female : No see HPI, No dysuria, No urinary frequency, No hematuria, No incontinence, No abnormal vaginal bleeding, No vaginal discharge, No problem reported Neurologic: No see HPI, No memory loss, No paralysis, No weakness, No numbness/ tingling, No vertigo, No balance problems, No problem reported Psychiatric: + anxiety, No see HPI, No depression symptoms, No anhedonism, No insomnia, No substance abuse, No problem reported Heme: No see HPI, No abnormal bleeding/bruising, No clotting problems, No swollen lymph nodes, No night sweats, No problem reported Endo: No see HPI, No fatigue, No excessive thirst, No excessive urination, No problem reported Objective Vital Signs Date Time Temp Pulse Resp B/P (MAP) Pulse Ox O2 Delivery O2 Flow Rate FiO2 01/16/17 07:56 36.9 87 20 92/57 (69) 96 01/16/17 00:23 80 96 40 01/16/17 00:00 Nasal Cannula 2.0 01/15/17 23:26 36.3 89 20 113/75 (88) 96 2.0 01/15/17 20:00 Nasal Cannula 2.0 01/15/17 16:45 Nasal Cannula 2.0 01/15/17 15:33 36.8 93 22 114/62 (79) 98 Nasal Cannula 2.0 Physical Exam General Appearance: WD/WN, no apparent distress, + obese, + pertinent finding ( mild anxious) Eyes: normal inspection, PERRL, EOMI, sclerae normal ENT: normal ENT inspection, hearing grossly normal, pharynx normal Neck: supple, no adenopathy, thyroid normal, no JVD, no carotid bruits, trachea midline Respiratory/Chest: chest non-tender, normal breath sounds, no respiratory distress, no accessory muscle use, + decreased breath sounds Cardiovascular: regular rate, rhythm, no gallop, no JVD, no murmur Abdomen: normal bowel sounds, non tender, soft, no organomegaly, no pulsatile mass Extremities: normal range of motion, non-tender, normal inspection, no pedal edema, no calf tenderness, normal capillary refill, pelvis stable 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, no motor/sensory deficits, alert, normal mood/affect, oriented x 3 Skin: normal color, warm/dry, no rash Lymphatic: no adenopathy Laboratory Results Last 24 Hours Test 01/15/17 11:28 01/15/17 16:27 01/15/17 19:54 01/16/17 05:48 Bedside Glucose 246 mg/dl 107 mg/dl 168 mg/dl White Blood Count 6.37 K/uL Red Blood Count 3.86 M/uL Hemoglobin 10.7 g/dL Hematocrit 37.6 % Mean Corpuscular Volume 97.4 fL Mean Corpuscular Hemoglobin 27.7 pg Mean Corpuscular Hemoglobin Concent 28.5 g/dl RDW Standard Deviation 55.4 fL RDW Coefficient of Variation 15.5 % Platelet Count 236 K/uL Mean Platelet Volume 10.0 fL Sodium Level 134 mmol/L Potassium Level 4.4 mmol/L Chloride Level 91 mmol/L Carbon Dioxide Level 45 mmol/L Anion Gap -2.0 mmol/L Blood Urea Nitrogen 16 mg/dl Creatinine 0.80 mg/dl Est Creatinine Clear Calc Drug Dose 82.7 ml/min Estimated GFR () 92.2 Estimated GFR (Non- 79.6 BUN/Creatinine Ratio 20.0 Random Glucose 122 mg/dl Calcium Level 9.6 mg/dl Magnesium Level 2.7 mg/dl Test 01/16/17 07:45 01/16/17 07:56 Bedside Glucose 115 mg/dl Ammonia 78.0 umol/L Vitamin B12 Level 874 pg/mL Folate > 24.00 ng/mL Thyroid Stimulating Hormone (TSH) 1.120 uIu/ml Assessment and Plan 61 y/o female with a history of diastolic CHF, respiratory failure with hypercapnia, DM II, HTN, seizure disorder, bipolar disorder and paranoid schizophrenia meaty on 01/11/2017 with shortness of breath and altered mental status. CXR consistent with congestive heart failure. Pt has a h/o respiratory failure with CO2 retention and is supposed to be on BiPAP every night but has h/o noncompliance with this and resulting encephalopathy. 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 Pt is supposed to be on BiPAP every night at home but is noncompliant. - Now NC O2 2 L per min, which is in her baseline home concentration -Has been on Lasix 40 mg IV BID, totally has 11.6 L negative and 8 kg weight lost so far in this admission, changed IV Lasix to by mouth 40 mg by mouth twice a day, today is discontinued -disontinued Iniguez catheter -Pt alert and oriented x 3, diet ordered -Echo completed: * -- Conclusions -- * Compared to previous study of 12/25/15: LV systolic function is now normal and PASP has reduced. * Mildly dilated LV chamber with mild concentric LVH. * Normal LV systolic function, EF 55-60%. * No segmental left ventricular wall motion abnormalities are noted. * Grade I diastolic dysfunction. * Moderately dilated RV chamber with visually reduced systolic function. * Moderate to severe tricuspid regurgittation. * PASP of 38 mmHg assuming a RA pressure of 3 mmHg. -Continue Combivent inhaler QID -Continue potassium supplement -Urine culture negative, blood cultures NGTD x 2 Dental infection--pt started on penicillin as an outpatient by dentist, confirmed with pt's pharmacy -Continue Pen VK 500 mg PO q6h x 3 days to complete course, completed today DM II--last HgbA1c check 11/30/16 was 7.4 -Increase Lantus 14 units SC BID (home dose) -Insulin sliding scale -Check BSGs q ac and qhs HTN--stable -Continue lisinopril 5 mg PO qd Seizure disorder -Continue levetiracetam 500 mg PO BID Bipolar disorder, paranoid schizophrenia This isn't decreased and need to repeat Mcdowell level in 5 days Has checked vitamin B12 level Iniguez acid and ammonia level, they were all normal DVT prophylaxis -Enoxaparin 40 mg SC q24h -JAYDON Lamas Code Status -Level I, FULL RESUSCITATION STATUS Dispo -Pt from home -services account manager consulted. Pt accepted at [facility] but is working out financial concerns -PT/OT evaluate and treat: recommend 24 hour care at SNF with rehab services - However patient dose not want to go to the [facility], initially want to go home - Today was present on nurse discussed about the discharge plan, patient is awake and alert and orientated, conversational, discussed about risk and benefit of going home or rehabilitation or [facility], - Had psychiatry evaluation for the competence of decision making - pt is not competent for decision making per psychiatry, therefore likely to be discharged to [facility] per 's wish, likely [facility] Continued [facility] stay due to: home environment unsafe for pt Discharge planning: halfway facility
--- NOTE | 2017-01-16 11:28 | Nephrology Consultation ---
Nephrology Consultation Date & Providers Date of Consultation: Jan 16, 2017. Primary Care Provider: Bin Patel M.D. Referring Provider: Reason for Consultation Evaluation management for ?diabetes insipidus.. History of Present Illness Dara is a 60 to 1-year-old female with past medical history significant for schizoaffective disorder, hypertension, diabetes recurrent history of electrolyte abnormality and prior history of acute kidney injury requiring dialysis referred by Dr. Obrien for evaluation management for diabetes insipidus. Electronic medical records including labs and imaging are reviewed in detail during patient's visit. Patient is a poor historian and the most of the information was obtained by medical record review. Dara was admitted to the hospital on 01/11/2017 with altered mental status and respiratory failure. On admission chest x-ray was suggestive of pulmonary congestion and she was started on IV diuretics. There was report that she was not compliant with using BiPAP at home. At home she has been on Lasix 40 milligram twice a day and metolazone as needed. She has history of right- sided heart failure with pulmonary hypertension and tricuspid regurgitation as well as grade 1 diastolic dysfunction with well preserved ejection fraction. Currently she is back on her home dose of diuretics, blood pressure and volume status acceptable. On admission serum sodium was 123 which improved over last few days to 134 this morning. Her urine output has been almost 5-6 liters/d, and she has been significantly net negative. Has history of schizoaffective disorder and she has been on lithium for long time. She was evaluated by psychiatry and lithium dose was decreased with goal lithium level 0.6-0.8 for now. She has well preserved GFR, baseline creatinine less than 1, renal function has been stable throughout hospital course. 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 She developed acute kidney injury and started on dialysis. Eventually she went on to have left upper arm AV fistula and continued on dialysis for a while however her renal function recovered and eventually she was taken off of dialysis, since then her renal function seems to be normal even though she has microalbuminuria. At that time she was seen by Dr. Gonzalez but lost to follow-up until 2011 when she was admitted to the hospital with another episode of acute kidney injury which eventually recovered and she has not been following with Nephrology since. Currently denies a symptom and she has been saying " I just want to go home". Allergies Coded Allergies: Penicillins (Unverified Allergy, Unknown, unknown, 12/04/16) Inpatient Medications Current Inpatient Medications Medications (Trade) Dose Ordered Sig/Nanette Route Start Time Stop Time Status Last Admin Dose Admin Enoxaparin Sodium (Lovenox Inj) 40 mg Q24H SC 01/11/17 22:00 02/10/17 21:59 01/15/17 21:12 40 MG Ondansetron HCl (Zofran Inj) 4 mg Q6H PRN IV 01/11/17 16:30 02/10/17 16:29 Insulin Aspart (novoLOG ASPART) SLIDING SCALE If C... ACHS SC 01/11/17 21:00 02/10/17 20:59 01/16/17 09:33 4 UNITS Glucose (Glucose 40% Gel) UD PRN PO 01/11/17 16:30 02/10/17 16:29 Glucose (Glucose Chew Tab) 1 tabs UD PRN PO 01/11/17 16:30 02/10/17 16:29 Dextrose (Dextrose 50% 50ML Syringe) 50 ml UD PRN IV 01/11/17 16:30 02/10/17 16:29 Glucagon (Glucagon Inj) 1 mg UD PRN SQ 01/11/17 16:30 02/10/17 16:29 Aspirin (Ecotrin Tab) 81 mg QAM PO 01/13/17 09:00 02/12/17 08:59 01/16/17 09:22 81 MG Benzonatate (Tessalon Perles Cap) 200 mg Q8 PO 01/12/17 14:00 02/11/17 13:59 01/16/17 06:21 200 MG Albuterol/ Ipratropium (Combivent Respimat Inh) 1 puffs QID INH 01/12/17 13:00 02/11/17 12:59 01/16/17 09:25 1 PUFFS Lactulose (Chronulac Syrup) 30 gm TID PO 01/12/17 14:00 02/11/17 13:59 01/16/17 09:26 30 GM Lisinopril (Zestril Tab) 5 mg QAM PO 01/13/17 09:00 02/12/17 08:59 01/15/17 08:04 5 MG Magnesium Oxide (Mag-Ox Tab) 400 mg QAM PO 01/13/17 09:00 02/12/17 08:59 01/16/17 09:24 400 MG Nystatin (Mycostatin Powder) 1 appln BID EXT 01/12/17 21:00 02/11/17 20:59 01/16/17 09:25 1 APPLN Potassium Chloride (Klor-Con M10) 40 meq BIDM PO 01/12/17 16:45 02/11/17 16:44 01/16/17 09:24 40 MEQ Levetiracetam (Keppra Tab) 500 mg BID PO 01/12/17 21:00 02/11/17 20:59 01/16/17 09:24 500 MG Acetaminophen (Tylenol Tab) 650 mg Q4H PRN PO 01/12/17 10:00 02/11/17 09:59 01/16/17 09:38 650 MG Metolazone (Zaroxolyn Tab) 5 mg QAM PRN PO 01/12/17 10:30 02/11/17 10:29 Insulin Glargine (Lantus Solostar Pen) 14 units BID SC 01/14/17 09:00 02/12/17 20:59 01/16/17 09:35 14 UNITS Furosemide (Lasix Tab) 40 mg BID17 PO 01/15/17 17:00 02/14/17 16:59 01/15/17 17:04 40 MG [place] Carbonate ([place] Carbonate Tab) 150 mg BID PO 01/16/17 08:00 02/15/17 07:59 01/16/17 09:23 150 MG Family History FH: HTN (hypertension) FH: diabetes mellitus Heart disease Social History Smoking Status: Never Smoker Smokeless Tobacco Use: No Alcohol Use: none Drug Use: none Marital Status: Housing Status: other Occupation: retired Review of Systems A complete review of systems was performed. Pertinent positives are noted above. All other systems are negative. Physical Exam Date Time Temp Pulse Resp B/P (MAP) Pulse Ox O2 Delivery O2 Flow Rate FiO2 01/16/17 07:56 36.9 87 20 92/57 (69) 96 01/16/17 00:23 80 96 40 01/16/17 00:00 Nasal Cannula 2.0 01/15/17 23:26 36.3 89 20 113/75 (88) 96 2.0 01/15/17 20:00 Nasal Cannula 2.0 01/15/17 16:45 Nasal Cannula 2.0 01/15/17 15:33 36.8 93 22 114/62 (79) 98 Nasal Cannula 2.0 GENERAL: middle aged female, AAA x 3, pleasant, not in any distress. HEENT: Atraumatic, normocephalic. NECK: Supple, no JVD, no carotid bruit appreciated. ENT: No sinus tenderness MOUTH and THROAT: Moist oral mucosa, no oral ulcer or pharyngeal erythema RESPIRATORY: Normal breathing efforts, no accessory muscle use, clear to auscultation bilaterally, no wheezes or rales. CARDIOVASCULAR: S1, S2 normal, rate rhythm regular. ABDOMEN: Soft, obese, nontender, positive bowel sound. MUSCULOSKELETAL:No joint swelling, erythema or tenderness. Normal range of motion. SKIN: No skin rash EXTREMITY: trace B/L lower extremity edema NEURO: No gross focal neurological deficit, speech fluent. PSYCHIATRY: Normal mood and judgment Laboratory Results Last 24 Hours Test 01/15/17 11:28 01/15/17 16:27 01/15/17 19:54 01/16/17 05:48 Bedside Glucose 246 mg/dl 107 mg/dl 168 mg/dl White Blood Count 6.37 K/uL Red Blood Count 3.86 M/uL Hemoglobin 10.7 g/dL Hematocrit 37.6 % Mean Corpuscular Volume 97.4 fL Mean Corpuscular Hemoglobin 27.7 pg Mean Corpuscular Hemoglobin Concent 28.5 g/dl RDW Standard Deviation 55.4 fL RDW Coefficient of Variation 15.5 % Platelet Count 236 K/uL Mean Platelet Volume 10.0 fL Sodium Level 134 mmol/L Potassium Level 4.4 mmol/L Chloride Level 91 mmol/L Carbon Dioxide Level 45 mmol/L Anion Gap -2.0 mmol/L Blood Urea Nitrogen 16 mg/dl Creatinine 0.80 mg/dl Est Creatinine Clear Calc Drug Dose 82.7 ml/min Estimated GFR () 92.2 Estimated GFR (Non- 79.6 BUN/Creatinine Ratio 20.0 Random Glucose 122 mg/dl Calcium Level 9.6 mg/dl Magnesium Level 2.7 mg/dl Test 01/16/17 07:45 01/16/17 07:56 Bedside Glucose 115 mg/dl Ammonia 78.0 umol/L Vitamin B12 Level 874 pg/mL Folate > 24.00 ng/mL Thyroid Stimulating Hormone (TSH) 1.120 uIu/ml Impression (1) Hyponatremia (2) Metabolic alkalosis (3) Hypokalemia (4) Anemia Dara is a 61-year-old female with past medical history is significant for schizoaffective disorder, hypertension, diabetes chronic hyponatremia with CHF and diastolic dysfunction admitted to the hospital with respiratory failure and altered mental status. She was started on IV diuretics with improvement in volume status, high urine output and has been net negative 3-4 liters per day. With significant polyuria with lithium and and possibly polydipsia I would expected to have hypernatremia, instead she has chronic hyponatremia most likely because of the fact that she is able to maintain p.o. intake very well and also on both loop and thiazide diuretics the. H/O dialysis requiring LISBETH, recovered, has normal renal function now, has left BC AVF, with decent thrill and bruit. Recommendations --volume status improve significantly and she has been persistently net negative with significant diuresis. --discontinue metolazone and hold Lasix for now --DC fluid restriction and encourage free water intake --start on diamox 250 mg BID for 3 days --Check electrolyte in a.m. Thank you for allowing me to participate in your patient's care. It was a pleasure to see Dara. This chart was completed utilizing [employer] Speech and voice recognition software. Grammatical errors, random word insertions, pronoun errors and incomplete sentences are occasional consequences of this system. Any questions or concerns about the content, text or information contained within the body of this dictation should be addressed directly to the physician for clarification.
[2017-01-16 16:20] VITALS: BP 90/50; PULSE 87; TEMP 36.8; O2SAT 99
[2017-01-16] MEDS: AcetaZOLAMIDE 250 MG TAB PO SCH (17:57)
[2017-01-16] MEDS: ENOXAPARIN 40 MG/0.4 ML SYR SC SCH (21:02)
[2017-01-16 23:55] VITALS: BP 133/71; PULSE 88; TEMP 36.8; O2SAT 95
[2017-01-17 00:09] VITALS: PULSE 82; O2SAT 98
[2017-01-17] MEDS: BENZONATATE 100MG CAP PO SCH ×3 (06:00→20:41)
[2017-01-17 06:54] VITALS: BP 94/56; PULSE 72; TEMP 36.6; O2SAT 100
[2017-01-17] MEDS: ACETAMINOPHEN 325 MG TAB PO PRN ×4 (07:08→21:03)
[2017-01-17 07:37] LABS: HEMATOCRIT 38.5 % (37-47); MEAN CORPUSCULAR HGB CONC 28.6 g/dl (32-36); MEAN PLATELET VOLUME 9.3 fL (7.4-10.4); PLATELET COUNT 198 K/uL (130-400); RED BLOOD COUNT 3.93 M/uL (4.2-5.4); WHITE BLOOD COUNT 5.91 K/uL (4.8-10.8)
[2017-01-17 07:39] LABS: BUN/CREATININE RATIO 14.5 (10-20); CREATININE 0.92 mg/dl (0.60-1.20); MAGNESIUM 2.6 mg/dl (1.8-2.4); PHOSPHORUS 4.6 mg/dl (2.5-4.9); POTASSIUM 3.9 mmol/L (3.5-5.1)
[2017-01-17 08:00] VITALS: O2SAT 100
[2017-01-17] MEDS: IPRATROPIUM BROMIDE/ALBUTEROL respimat INH INH SCH ×4 (08:02→20:38)
[2017-01-17] MEDS: NYSTATIN POWDER 15GM BTL EXT SCH ×2 (08:02→20:38)
[2017-01-17] MEDS: LITHIUM CARBONATE 300 MG TAB PO SCH ×2 (08:04→20:40)
[2017-01-17] MEDS: LISINOPRIL 5 MG TAB PO SCH (08:05)
[2017-01-17] MEDS: AcetaZOLAMIDE 250 MG TAB PO SCH ×2 (08:05→17:28)
[2017-01-17] MEDS: MAGNESIUM OXIDE 400 MG TAB PO SCH (08:05)
[2017-01-17] MEDS: LEVETIRACETAM 500 MG TAB PO SCH ×2 (08:05→20:39)
[2017-01-17] MEDS: ASPIRIN 81 MG ECTAB PO SCH (08:06)
[2017-01-17] MEDS: LACTULOSE SYRUP 30 GM/45 ML UDP PO SCH ×3 (08:06→20:39)
[2017-01-17] MEDS: INSULIN GLARGINE SOLOSTAR 100 UNITS/ML 3 ML PEN SC SCH ×2 (08:11→20:52)
[2017-01-17] MEDS: INSULIN ASPART 100 UNITS/ML 3 ML PEN SC SCH ×4 (08:48→20:52)
--- NOTE | 2017-01-17 11:37 | Nephrology Progress Note ---
Nephrology Progress Note Date of Service Jan 17, 2017. Chief Complaint F/U for hyponatremia and polyuria Subjective Dara was seen and examined in her room this am. BP soft but asymptomatic. Denies SOB, CP, no fever, chills. Denies nausea, vomiting. Na stable, 135. Continues to have high UO and net negative. Review of Systems A complete review of systems was performed. Pertinent positives are noted above. All other systems are negative. Vital Signs Last 8 Hrs Date Time Temp Pulse Resp B/P (MAP) Pulse Ox O2 Delivery O2 Flow Rate FiO2 01/17/17 06:54 36.6 72 20 94/56 (69) 100 2.0 Last Recorded Weight Weight (Kilograms): 102.100 Physical Exam GENERAL: middle aged female, AAA x 3, pleasant, not in any distress. NECK: Supple, no JVD. RESPIRATORY: Normal breathing efforts, no accessory muscle use, clear to auscultation bilaterally, no wheezes or rales. CARDIOVASCULAR: S1, S2 normal, rate rhythm regular. EXTREMITY: no lower extremity edema NEURO: speech fluent. PSYCHIATRY: Normal mood. Family History FH: HTN (hypertension) FH: diabetes mellitus Heart disease Social History Smoking Status: Never smoker Smokeless Tobacco Use: No Alcohol Use: none Drug Use: none Marital Status: Housing Status: other Occupation: retired Laboratory Results Past 24 Hours 01/17/17 06:26 01/17/17 06:26 Test 01/16/17 11:30 01/16/17 16:33 01/16/17 19:59 01/17/17 06:26 Bedside Glucose 185 mg/dl (70-90) 145 mg/dl (70-90) 217 mg/dl (70-90) Red Blood Count 3.93 M/uL (4.2-5.4) Mean Corpuscular Volume 98.0 fL (80-100) Mean Corpuscular Hemoglobin 28.0 pg (25-34) Mean Corpuscular Hemoglobin Concent 28.6 g/dl (32-36) RDW Standard Deviation 55.0 fL (36.4-46.3) RDW Coefficient of Variation 15.3 % (11.5-14.5) Mean Platelet Volume 9.3 fL (7.4-10.4) Anion Gap 1.0 mmol/L (3-11) Est Creatinine Clear Calc Drug Dose 71.9 ml/min Estimated GFR () 77.9 Estimated GFR (Non- 67.2 BUN/Creatinine Ratio 14.5 (10-20) Calcium Level 10.0 mg/dl (8.5-10.1) Phosphorus Level 4.6 mg/dl (2.5-4.9) Magnesium Level 2.6 mg/dl (1.8-2.4) Test 01/17/17 07:37 Bedside Glucose 127 mg/dl (70-90) Allergies Coded Allergies: Penicillins (Unverified Allergy, Unknown, unknown, 12/04/16) Medications Current Inpatient Medications Medications (Trade) Dose Ordered Sig/Nanette Route Start Time Stop Time Status Last Admin Dose Admin Enoxaparin Sodium (Lovenox Inj) 40 mg Q24H SC 01/11/17 22:00 02/10/17 21:59 01/16/17 21:02 40 MG Ondansetron HCl (Zofran Inj) 4 mg Q6H PRN IV 01/11/17 16:30 02/10/17 16:29 Insulin Aspart (novoLOG ASPART) SLIDING SCALE If C... ACHS SC 01/11/17 21:00 02/10/17 20:59 01/16/17 20:43 3 UNITS Glucose (Glucose 40% Gel) UD PRN PO 01/11/17 16:30 02/10/17 16:29 Glucose (Glucose Chew Tab) 1 tabs UD PRN PO 01/11/17 16:30 02/10/17 16:29 Dextrose (Dextrose 50% 50ML Syringe) 50 ml UD PRN IV 01/11/17 16:30 02/10/17 16:29 Glucagon (Glucagon Inj) 1 mg UD PRN SQ 01/11/17 16:30 02/10/17 16:29 Aspirin (Ecotrin Tab) 81 mg QAM PO 01/13/17 09:00 02/12/17 08:59 01/17/17 08:06 81 MG Benzonatate (Tessalon Perles Cap) 200 mg Q8 PO 01/12/17 14:00 02/11/17 13:59 01/17/17 06:00 200 MG Albuterol/ Ipratropium (Combivent Respimat Inh) 1 puffs QID INH 01/12/17 13:00 02/11/17 12:59 01/17/17 08:02 1 PUFFS Lactulose (Chronulac Syrup) 30 gm TID PO 01/12/17 14:00 02/11/17 13:59 01/17/17 08:06 30 GM Lisinopril (Zestril Tab) 5 mg QAM PO 01/13/17 09:00 02/12/17 08:59 01/17/17 08:05 5 MG Magnesium Oxide (Mag-Ox Tab) 400 mg QAM PO 01/13/17 09:00 02/12/17 08:59 01/17/17 08:05 400 MG Nystatin (Mycostatin Powder) 1 appln BID EXT 01/12/17 21:00 02/11/17 20:59 01/17/17 08:02 1 APPLN Potassium Chloride (Klor-Con M10) 40 meq BIDM PO 01/12/17 16:45 02/11/17 16:44 Future Hold 01/16/17 09:24 40 MEQ Levetiracetam (Keppra Tab) 500 mg BID PO 01/12/17 21:00 02/11/17 20:59 01/17/17 08:05 500 MG Acetaminophen (Tylenol Tab) 650 mg Q4H PRN PO 01/12/17 10:00 02/11/17 09:59 01/17/17 07:08 650 MG Insulin Glargine (Lantus Solostar Pen) 14 units BID SC 01/14/17 09:00 02/12/17 20:59 01/17/17 08:11 14 UNITS [place] Carbonate ([place] Carbonate Tab) 150 mg BID PO 01/16/17 08:00 02/15/17 07:59 01/17/17 08:04 150 MG Acetazolamide (Diamox Tab) 250 mg BID17 PO 01/16/17 17:00 01/19/17 16:59 01/17/17 08:05 250 MG Impression (1) Hyponatremia (2) Metabolic alkalosis (3) Hypokalemia (4) Anemia Dara is a 61-year-old female with past medical history is significant for schizoaffective disorder, hypertension, diabetes chronic hyponatremia with CHF and diastolic dysfunction admitted to the hospital with respiratory failure and altered mental status. She was started on IV diuretics with improvement in volume status, high urine output and has been net negative 3-4 liters per day. With significant polyuria with lithium and and possibly polydipsia I would expected to have hypernatremia, instead she has chronic hyponatremia most likely because of the fact that she is able to maintain p.o. intake very well and also on both loop and thiazide diuretics the. H/O dialysis requiring LISBETH, recovered, has normal renal function now, has left BC AVF, with decent thrill and bruit. Recommendations --continue off of diuretics as she has been persistently net negative. --encourage free water intake to avoid volume depletion and hypernatremia --on diamox 250 mg BID for 3 days Will follow This chart was completed utilizing [employer] Speech and voice recognition software. Grammatical errors, random word insertions, pronoun errors and incomplete sentences are occasional consequences of this system. Any questions or concerns about the content, text or information contained within the body of this dictation should be addressed directly to the physician for clarification.
[2017-01-17 15:34] VITALS: BP 103/63; PULSE 96; TEMP 36.8; O2SAT 97
[2017-01-17 15:59] VITALS: O2SAT 97
--- NOTE | 2017-01-17 16:56 | Progress Note ---
Subjective Date of Service: Jan 17, 2017. Subjective Pt evaluation today including: conversation w/ patient, physical exam, chart review, lab review, review of studies, review of inpatient medication list Pt lethargic alert and oriented x 3 no complaints at this time wanting to go home states compliance with BiPAP Problem List Medical Problems: (1) Acute CHF Status: Acute (2) Altered mental status Status: Acute (3) Change in mental status Status: Acute (4) CHF (congestive heart failure) Status: Acute (5) CHF (congestive heart failure) Status: Acute (6) CO2 retention Status: Acute (7) Fall Status: Acute (8) Hyperammonemia Status: Acute (9) Hyperammonemia Status: Acute (10) Hyperammonemia Permanent Comment: Non cirrhotic hyperammonemia Status: Acute (11) Hyperammonemia Status: Acute (12) Hypercalcemia Status: Acute (13) Hypercarbia Status: Acute (14) Hypercarbia Status: Acute (15) Hypercarbia Status: Acute (16) Hyperglycemia Status: Acute (17) Hypokalemia Status: Acute (18) Hyponatremia Status: Acute (19) Hyponatremia Status: Acute (20) Hyponatremia Status: Acute (21) Lower extremity weakness Status: Acute (22) Seizure Status: Acute (23) SOB (shortness of breath) Status: Acute (24) Weakness Status: Acute Review of Systems Constitutional: No fever, No chills, No sweats, No weight loss, No weakness Eyes: No worsening of vision, No eye pain, No redness, No discharge Respiratory: No cough, No sputum, No wheezing, No shortness of breath, No dyspnea on exertion Cardiac: No chest pain, No orthopnea, No PND, No edema Abdomen: No pain, No nausea, No vomiting, No diarrhea Musculoskeletal: No joint pain, No muscle pain, No swelling, No calf pain Female : No dysuria, No urinary frequency, No hematuria, No incontinence Neurologic: No memory loss, No paralysis, No weakness, No numbness/tingling Psychiatric: No depression symptoms, No anhedonism, No anxiety, No insomnia Endo: No fatigue, No excessive thirst, No excessive urination Objective Vital Signs Date Time Temp Pulse Resp B/P (MAP) Pulse Ox O2 Delivery O2 Flow Rate FiO2 01/17/17 15:59 97 Nasal Cannula 2.0 01/17/17 15:34 36.8 96 18 103/63 (76) 97 Nasal Cannula 2.0 01/17/17 08:00 100 2.0 01/17/17 06:54 36.6 72 20 94/56 (69) 100 2.0 01/17/17 00:09 82 98 40 01/17/17 00:00 BiPAP 01/16/17 23:55 36.8 88 20 133/71 (91) 95 2.0 01/16/17 20:00 Nasal Cannula 2.0 Physical Exam General Appearance: WD/WN, no apparent distress Eyes: normal inspection, PERRL, EOMI, sclerae normal ENT: normal ENT inspection, hearing grossly normal, TMs normal, pharynx normal Respiratory/Chest: chest non-tender, lungs clear, normal breath sounds, no respiratory distress Cardiovascular: regular rate, rhythm, no edema, no gallop, no JVD Abdomen: normal bowel sounds, non tender, soft, no organomegaly Extremities: normal range of motion, non-tender, normal inspection, no pedal edema 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: no motor/sensory deficits, alert, normal mood/affect, oriented x 3 Laboratory Results Last 24 Hours Test 01/16/17 19:59 01/17/17 06:26 01/17/17 07:37 01/17/17 11:45 Bedside Glucose 217 mg/dl 127 mg/dl 176 mg/dl White Blood Count 5.91 K/uL Red Blood Count 3.93 M/uL Hemoglobin 11.0 g/dL Hematocrit 38.5 % Mean Corpuscular Volume 98.0 fL Mean Corpuscular Hemoglobin 28.0 pg Mean Corpuscular Hemoglobin Concent 28.6 g/dl RDW Standard Deviation 55.0 fL RDW Coefficient of Variation 15.3 % Platelet Count 198 K/uL Mean Platelet Volume 9.3 fL Sodium Level 135 mmol/L Potassium Level 3.9 mmol/L Chloride Level 93 mmol/L Carbon Dioxide Level 41 mmol/L Anion Gap 1.0 mmol/L Blood Urea Nitrogen 13 mg/dl Creatinine 0.92 mg/dl Est Creatinine Clear Calc Drug Dose 71.9 ml/min Estimated GFR () 77.9 Estimated GFR (Non- 67.2 BUN/Creatinine Ratio 14.5 Random Glucose 125 mg/dl Calcium Level 10.0 mg/dl Phosphorus Level 4.6 mg/dl Magnesium Level 2.6 mg/dl Test 01/17/17 16:34 Bedside Glucose 107 mg/dl Assessment and Plan 61 y/o female with a history of diastolic CHF, respiratory failure with hypercapnia, DM II, HTN, seizure disorder, bipolar disorder and paranoid schizophrenia meaty on 01/11/2017 with shortness of breath and altered mental status. Pt has a h/o respiratory failure with CO2 retention and is supposed to be on BiPAP every night but has h/o noncompliance with this and resulting encephalopathy. 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 Pt is supposed to be on BiPAP every night at home but is noncompliant. - Now NC O2 2 L per min, which is in her baseline home concentration -Disontinued Iniguez catheter -Pt alert and oriented x 3, diet ordered -Echo completed: * -- Conclusions -- * Compared to previous study of 12/25/15: LV systolic function is now normal and PASP has reduced. * Mildly dilated LV chamber with mild concentric LVH. * Normal LV systolic function, EF 55-60%. * No segmental left ventricular wall motion abnormalities are noted. * Grade I diastolic dysfunction. * Moderately dilated RV chamber with visually reduced systolic function. * Moderate to severe tricuspid regurgittation. * PASP of 38 mmHg assuming a RA pressure of 3 mmHg. -Continue Combivent inhaler QID -Continue potassium supplement -Urine culture negative, blood cultures NGTD x 2 Dental infection--pt started on penicillin as an outpatient by dentist, confirmed with pt's pharmacy -Continue Pen VK 500 mg PO q6h x 3 days to complete course DM II--last HgbA1c check 11/30/16 was 7.4 -Cont Lantus 14 units SC BID (home dose) -Insulin sliding scale -Check BSGs q ac and qhs HTN--stable -Continue lisinopril 5 mg PO qd Seizure disorder -Continue levetiracetam 500 mg PO BID Bipolar disorder, paranoid schizophrenia Has checked vitamin B12 level Iniguez acid and ammonia level, they were all normal Recheck lithium in few days DVT prophylaxis -Enoxaparin 40 mg SC q24h -JAYDON smith and Heavenly Code Status -Level I, FULL RESUSCITATION STATUS Continued [facility] stay due to: home environment unsafe for pt Discharge planning: nursing home facility
[2017-01-17] MEDS: ENOXAPARIN 40 MG/0.4 ML SYR SC SCH (20:41)
[2017-01-17 23:55] VITALS: BP 110/66; PULSE 98; TEMP 36.6; O2SAT 98
[2017-01-18] MEDS: BENZONATATE 100MG CAP PO SCH ×3 (06:17→19:33)
[2017-01-18] MEDS: ACETAMINOPHEN 325 MG TAB PO PRN ×3 (06:19→22:27)
[2017-01-18 07:20] VITALS: BP 104/62; PULSE 72; TEMP 36.7; O2SAT 96
[2017-01-18] MEDS: IPRATROPIUM BROMIDE/ALBUTEROL respimat INH INH SCH ×4 (07:58→19:32)
[2017-01-18] MEDS: MAGNESIUM OXIDE 400 MG TAB PO SCH (07:58)
[2017-01-18] MEDS: LEVETIRACETAM 500 MG TAB PO SCH ×2 (07:58→19:31)
[2017-01-18] MEDS: LACTULOSE SYRUP 30 GM/45 ML UDP PO SCH ×3 (07:58→19:31)
[2017-01-18] MEDS: AcetaZOLAMIDE 250 MG TAB PO SCH ×2 (07:58→18:30)
[2017-01-18] MEDS: LITHIUM CARBONATE 300 MG TAB PO SCH ×2 (07:58→19:31)
[2017-01-18] MEDS: ASPIRIN 81 MG ECTAB PO SCH (07:59)
[2017-01-18] MEDS: LISINOPRIL 5 MG TAB PO SCH (07:59)
[2017-01-18] MEDS: NYSTATIN POWDER 15GM BTL EXT SCH ×2 (08:01→19:32)
[2017-01-18] MEDS: INSULIN GLARGINE SOLOSTAR 100 UNITS/ML 3 ML PEN SC SCH ×2 (08:02→20:30)
[2017-01-18 09:31] LABS: BUN/CREATININE RATIO 17.9 (10-20); CALCIUM 9.6 mg/dl (8.5-10.1); CREATININE 0.8 mg/dl (0.60-1.20); POTASSIUM 3.9 mmol/L (3.5-5.1)
[2017-01-18] MEDS: INSULIN ASPART 100 UNITS/ML 3 ML PEN SC SCH ×4 (09:49→20:29)
--- NOTE | 2017-01-18 10:25 | Nephrology Progress Note ---
Nephrology Progress Note Date of Service Jan 18, 2017. Chief Complaint F/U for hyponatremia and polyuria Subjective Dara was seen and examined in her room this am. Denies SOB, CP, no fever, chills. Denies nausea, vomiting. Na stable, 137. Continues to have high UO and net negative. BP stable. Review of Systems A complete review of systems was performed. Pertinent positives are noted above. All other systems are negative. Vital Signs Last 8 Hrs Date Time Temp Pulse Resp B/P (MAP) Pulse Ox O2 Delivery O2 Flow Rate FiO2 01/18/17 09:30 Nasal Cannula 2.0 01/18/17 07:20 36.7 72 20 104/62 (76) 96 Nasal Cannula 2.0 Last Recorded Weight Weight (Kilograms): 102.100 Physical Exam GENERAL: middle aged female, AAA x 3, pleasant, not in any distress. NECK: Supple, no JVD. RESPIRATORY: Normal breathing efforts, no accessory muscle use, clear to auscultation bilaterally, no wheezes or rales. CARDIOVASCULAR: S1, S2 normal, rate rhythm regular. EXTREMITY: no lower extremity edema NEURO: speech fluent. PSYCHIATRY: Normal mood. Family History FH: HTN (hypertension) FH: diabetes mellitus Heart disease Social History Smoking Status: Never smoker Smokeless Tobacco Use: No Alcohol Use: none Drug Use: none Marital Status: Housing Status: other Occupation: retired Laboratory Results Past 24 Hours 01/18/17 07:05 Test 01/17/17 11:45 01/17/17 16:34 01/17/17 20:27 01/18/17 07:05 Bedside Glucose 176 mg/dl (70-90) 107 mg/dl (70-90) 179 mg/dl (70-90) Anion Gap -2.0 mmol/L (3-11) Est Creatinine Clear Calc Drug Dose 82.7 ml/min Estimated GFR () 92.2 Estimated GFR (Non- 79.6 BUN/Creatinine Ratio 17.9 (10-20) Calcium Level 9.6 mg/dl (8.5-10.1) [place] Level 0.7 mMOL/L (0.6-1.2) Test 01/18/17 07:43 Bedside Glucose 84 mg/dl (70-90) Allergies Coded Allergies: Penicillins (Unverified Allergy, Unknown, unknown, 12/04/16) Medications Current Inpatient Medications Medications (Trade) Dose Ordered Sig/Nanette Route Start Time Stop Time Status Last Admin Dose Admin Enoxaparin Sodium (Lovenox Inj) 40 mg Q24H SC 01/11/17 22:00 02/10/17 21:59 01/17/17 20:41 40 MG Ondansetron HCl (Zofran Inj) 4 mg Q6H PRN IV 01/11/17 16:30 02/10/17 16:29 Insulin Aspart (novoLOG ASPART) SLIDING SCALE If C... ACHS SC 01/11/17 21:00 02/10/17 20:59 01/18/17 09:49 4 UNITS Glucose (Glucose 40% Gel) UD PRN PO 01/11/17 16:30 02/10/17 16:29 Glucose (Glucose Chew Tab) 1 tabs UD PRN PO 01/11/17 16:30 02/10/17 16:29 Dextrose (Dextrose 50% 50ML Syringe) 50 ml UD PRN IV 01/11/17 16:30 02/10/17 16:29 Glucagon (Glucagon Inj) 1 mg UD PRN SQ 01/11/17 16:30 02/10/17 16:29 Aspirin (Ecotrin Tab) 81 mg QAM PO 01/13/17 09:00 02/12/17 08:59 01/18/17 07:59 81 MG Benzonatate (Tessalon Perles Cap) 200 mg Q8 PO 01/12/17 14:00 02/11/17 13:59 01/18/17 06:17 200 MG Albuterol/ Ipratropium (Combivent Respimat Inh) 1 puffs QID INH 01/12/17 13:00 02/11/17 12:59 01/18/17 07:58 1 PUFFS Lactulose (Chronulac Syrup) 30 gm TID PO 01/12/17 14:00 02/11/17 13:59 01/18/17 07:58 30 GM Lisinopril (Zestril Tab) 5 mg QAM PO 01/13/17 09:00 02/12/17 08:59 01/18/17 07:59 5 MG Magnesium Oxide (Mag-Ox Tab) 400 mg QAM PO 01/13/17 09:00 02/12/17 08:59 01/18/17 07:58 400 MG Nystatin (Mycostatin Powder) 1 appln BID EXT 01/12/17 21:00 02/11/17 20:59 01/18/17 08:01 1 APPLN Potassium Chloride (Klor-Con M10) 40 meq BIDM PO 01/12/17 16:45 02/11/17 16:44 Future Hold 01/16/17 09:24 40 MEQ Levetiracetam (Keppra Tab) 500 mg BID PO 01/12/17 21:00 02/11/17 20:59 01/18/17 07:58 500 MG Acetaminophen (Tylenol Tab) 650 mg Q4H PRN PO 01/12/17 10:00 02/11/17 09:59 01/18/17 06:19 650 MG Insulin Glargine (Lantus Solostar Pen) 14 units BID SC 01/14/17 09:00 02/12/17 20:59 01/18/17 08:02 14 UNITS [place] Carbonate ([place] Carbonate Tab) 150 mg BID PO 01/16/17 08:00 02/15/17 07:59 01/18/17 07:58 150 MG Acetazolamide (Diamox Tab) 250 mg BID17 PO 01/16/17 17:00 01/19/17 16:59 01/18/17 07:58 250 MG Impression (1) Hyponatremia (2) Metabolic alkalosis (3) Hypokalemia (4) Anemia Dara is a 61-year-old female with past medical history is significant for schizoaffective disorder, hypertension, diabetes chronic hyponatremia with CHF and diastolic dysfunction admitted to the hospital with respiratory failure and altered mental status. She was started on IV diuretics with improvement in volume status, high urine output and has been net negative 3-4 liters per day. With significant polyuria with lithium and and possibly polydipsia I would expected to have hypernatremia, instead she has chronic hyponatremia most likely because of the fact that she is able to maintain p.o. intake very well and also on both loop and thiazide diuretics the. H/O dialysis requiring LISBETH, recovered, has normal renal function now, has left BC AVF, with decent thrill and bruit. Recommendations --encourage free water intake to avoid volume depletion and hypernatremia ( avoid fluid restriction ) as she has been persistently net negative. S Na improved to 137. --on diamox 250 mg BID for metabolic alkalosis --Keep off of diuretics on DC Will follow while in patient
[2017-01-18 16:00] VITALS: BP 99/59; PULSE 76; TEMP 37; O2SAT 94
--- NOTE | 2017-01-18 17:39 | Progress Note ---
Subjective Date of Service: Jan 18, 2017. Subjective Pt evaluation today including: conversation w/ patient, conversation w/ family , physical exam, chart review, lab review, review of studies, review of inpatient medication list Resting comfortably in bed States feeling better No SOB Problem List Medical Problems: (1) Acute CHF Status: Acute (2) Altered mental status Status: Acute (3) Change in mental status Status: Acute (4) CHF (congestive heart failure) Status: Acute (5) CHF (congestive heart failure) Status: Acute (6) CO2 retention Status: Acute (7) Fall Status: Acute (8) Hyperammonemia Status: Acute (9) Hyperammonemia Status: Acute (10) Hyperammonemia Permanent Comment: Non cirrhotic hyperammonemia Status: Acute (11) Hyperammonemia Status: Acute (12) Hypercalcemia Status: Acute (13) Hypercarbia Status: Acute (14) Hypercarbia Status: Acute (15) Hypercarbia Status: Acute (16) Hyperglycemia Status: Acute (17) Hypokalemia Status: Acute (18) Hyponatremia Status: Acute (19) Hyponatremia Status: Acute (20) Hyponatremia Status: Acute (21) Lower extremity weakness Status: Acute (22) Seizure Status: Acute (23) SOB (shortness of breath) Status: Acute (24) Weakness Status: Acute Review of Systems Constitutional: No fever, No chills ENT: No hearing loss, No unusual epistaxis, No nasal symptoms, No sore throat Respiratory: No cough, No sputum, No wheezing, No shortness of breath, No dyspnea on exertion Cardiac: No chest pain, No orthopnea, No PND, No edema Abdomen: No pain, No nausea, No vomiting, No diarrhea, No constipation Musculoskeletal: No joint pain, No muscle pain, No swelling, No calf pain Female : No dysuria, No urinary frequency, No hematuria, No incontinence Neurologic: No memory loss, No paralysis, No weakness, No numbness/tingling Psychiatric: No depression symptoms, No anhedonism, No anxiety, No insomnia Skin: No rash, No itch Objective Vital Signs Date Time Temp Pulse Resp B/P (MAP) Pulse Ox O2 Delivery O2 Flow Rate FiO2 01/18/17 17:02 Nasal Cannula 2.0 01/18/17 16:00 37.0 76 18 99/59 (72) 94 Nasal Cannula 2.0 01/18/17 09:30 Nasal Cannula 2.0 01/18/17 07:20 36.7 72 20 104/62 (76) 96 Nasal Cannula 2.0 01/18/17 00:40 Nasal Cannula 2.0 01/17/17 23:55 36.6 98 20 110/66 (81) 98 2.0 Physical Exam General Appearance: WD/WN, no apparent distress Neck: supple, no adenopathy Respiratory/Chest: chest non-tender, lungs clear, + decreased breath sounds Cardiovascular: no edema, no gallop, no JVD, no murmur Abdomen: normal bowel sounds, non tender, soft, no organomegaly Extremities: non-tender, normal inspection, no pedal edema, no calf tenderness 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: no motor/sensory deficits, alert, normal mood/affect, oriented x 3 Laboratory Results Last 24 Hours Test 01/17/17 20:27 01/18/17 07:05 01/18/17 07:43 01/18/17 11:39 Bedside Glucose 179 mg/dl 84 mg/dl 196 mg/dl Sodium Level 137 mmol/L Potassium Level 3.9 mmol/L Chloride Level 96 mmol/L Carbon Dioxide Level 43 mmol/L Anion Gap -2.0 mmol/L Blood Urea Nitrogen 14 mg/dl Creatinine 0.80 mg/dl Est Creatinine Clear Calc Drug Dose 82.7 ml/min Estimated GFR () 92.2 Estimated GFR (Non- 79.6 BUN/Creatinine Ratio 17.9 Random Glucose 84 mg/dl Calcium Level 9.6 mg/dl [place] Level 0.7 mMOL/L Test 01/18/17 16:21 Bedside Glucose 131 mg/dl Assessment and Plan 61 y/o female with a history of diastolic CHF, respiratory failure with hypercapnia, DM II, HTN, seizure disorder, bipolar disorder and paranoid schizophrenia meaty on 01/11/2017 with shortness of breath and altered mental status. Pt has a h/o respiratory failure with CO2 retention and is supposed to be on BiPAP every night but has h/o noncompliance with this and resulting encephalopathy. 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 Pt is supposed to be on BiPAP every night at home but is noncompliant. - Now NC O2 2 L per min, which is in her baseline home concentration -Discontinued Iniguez catheter -Pt alert and oriented x 3, diet ordered -Echo completed: * -- Conclusions -- * Compared to previous study of 12/25/15: LV systolic function is now normal and PASP has reduced. * Mildly dilated LV chamber with mild concentric LVH. * Normal LV systolic function, EF 55-60%. * No segmental left ventricular wall motion abnormalities are noted. * Grade I diastolic dysfunction. * Moderately dilated RV chamber with visually reduced systolic function. * Moderate to severe tricuspid regurgittation. * PASP of 38 mmHg assuming a RA pressure of 3 mmHg. -Continue Combivent inhaler QID -Continue potassium supplement -Urine culture negative, blood cultures NGTD x 2 -Awaiting rehab at this time, will need update PT/OT assessment, family discussion on 01/18/17 Dental infection--pt started on penicillin as an outpatient by dentist, confirmed with pt's pharmacy -Continue Pen VK 500 mg PO q6h x 3 days to complete course DM II--last HgbA1c check 11/30/16 was 7.4 -Cont Lantus 14 units SC BID (home dose) -Insulin sliding scale -Check BSGs q ac and qhs HTN--stable -Continue lisinopril 5 mg PO qd Seizure disorder -Continue levetiracetam 500 mg PO BID Bipolar disorder, paranoid schizophrenia Has checked vitamin B12 level Iniguez acid and ammonia level, they were all normal Recheck lithium in few days DVT prophylaxis -Enoxaparin 40 mg SC q24h -JAYDON Lamas Code Status -Level I, FULL RESUSCITATION STATUS Continued [facility] stay due to: home environment unsafe for pt Discharge planning: [facility] facility
[2017-01-18] MEDS: ENOXAPARIN 40 MG/0.4 ML SYR SC SCH (19:32)
[2017-01-19 00:07] VITALS: PULSE 67; O2SAT 94
[2017-01-19 00:10] VITALS: BP 107/72; PULSE 85; TEMP 36.7; O2SAT 95
[2017-01-19] MEDS: BENZONATATE 100MG CAP PO SCH ×3 (06:00→21:49)
[2017-01-19 07:12] VITALS: BP 96/66; PULSE 85; TEMP 36.8; O2SAT 97
[2017-01-19] MEDS: LEVETIRACETAM 500 MG TAB PO SCH ×2 (09:05→21:48)
[2017-01-19] MEDS: IPRATROPIUM BROMIDE/ALBUTEROL respimat INH INH SCH ×4 (09:05→21:39)
[2017-01-19] MEDS: LISINOPRIL 5 MG TAB PO SCH (09:05)
[2017-01-19] MEDS: LITHIUM CARBONATE 300 MG TAB PO SCH ×2 (09:05→21:49)
[2017-01-19] MEDS: AcetaZOLAMIDE 250 MG TAB PO SCH (09:06)
[2017-01-19] MEDS: ASPIRIN 81 MG ECTAB PO SCH (09:06)
[2017-01-19] MEDS: MAGNESIUM OXIDE 400 MG TAB PO SCH (09:07)
[2017-01-19] MEDS: LACTULOSE SYRUP 30 GM/45 ML UDP PO SCH ×3 (09:07→21:42)
[2017-01-19 09:08] LABS: CALCIUM 9.3 mg/dl (8.5-10.1); CREATININE 0.81 mg/dl (0.60-1.20); POTASSIUM 3.6 mmol/L (3.5-5.1)
[2017-01-19] MEDS: NYSTATIN POWDER 15GM BTL EXT SCH ×2 (09:09→21:38)
[2017-01-19] MEDS: INSULIN ASPART 100 UNITS/ML 3 ML PEN SC SCH ×4 (09:15→22:00)
[2017-01-19] MEDS: INSULIN GLARGINE SOLOSTAR 100 UNITS/ML 3 ML PEN SC SCH ×2 (09:17→21:59)
--- NOTE | 2017-01-19 10:46 | Nephrology Progress Note ---
Nephrology Progress Note Date of Service Jan 19, 2017. Chief Complaint F/U for hyponatremia and polyuria Subjective Dara was seen and examined in her room this am. Denies SOB, CP, no fever, chills. Denies nausea, vomiting. Na dropped to 127.Continues to have high UO and net negative, However patient is non ARDS reports that the intake and output in the EMR may not be adequate and she has been drinking much more yesterday then the EMR shows.. BP stable. Review of Systems A complete review of systems was performed. Pertinent positives are noted above. All other systems are negative. Vital Signs Last 8 Hrs Date Time Temp Pulse Resp B/P (MAP) Pulse Ox O2 Delivery O2 Flow Rate FiO2 01/19/17 07:12 36.8 85 16 96/66 (76) 97 Nasal Cannula 2.0 Last Recorded Weight Weight (Kilograms): 102.100 Physical Exam GENERAL: middle aged female, AAA x 3, pleasant, not in any distress. NECK: Supple, no JVD. RESPIRATORY: Normal breathing efforts, no accessory muscle use, clear to auscultation bilaterally, no wheezes or rales. CARDIOVASCULAR: S1, S2 normal, rate rhythm regular. EXTREMITY: no lower extremity edema NEURO: speech fluent. PSYCHIATRY: Normal mood. Family History FH: HTN (hypertension) FH: diabetes mellitus Heart disease Social History Smoking Status: Never smoker Smokeless Tobacco Use: No Alcohol Use: none Drug Use: none Marital Status: Housing Status: other Occupation: retired Laboratory Results Past 24 Hours Test 01/18/17 11:39 01/18/17 16:21 01/18/17 19:53 01/19/17 07:44 Bedside Glucose 196 mg/dl (70-90) 131 mg/dl (70-90) 179 mg/dl (70-90) 119 mg/dl (70-90) Test 01/19/17 08:10 Allergies Coded Allergies: Penicillins (Unverified Allergy, Unknown, unknown, 12/04/16) Medications Current Inpatient Medications Medications (Trade) Dose Ordered Sig/Nanette Route Start Time Stop Time Status Last Admin Dose Admin Enoxaparin Sodium (Lovenox Inj) 40 mg Q24H SC 01/11/17 22:00 02/10/17 21:59 01/18/17 19:32 40 MG Ondansetron HCl (Zofran Inj) 4 mg Q6H PRN IV 01/11/17 16:30 02/10/17 16:29 Insulin Aspart (novoLOG ASPART) SLIDING SCALE If C... ACHS SC 01/11/17 21:00 02/10/17 20:59 01/18/17 20:29 1 UNITS Glucose (Glucose 40% Gel) UD PRN PO 01/11/17 16:30 02/10/17 16:29 Glucose (Glucose Chew Tab) 1 tabs UD PRN PO 01/11/17 16:30 02/10/17 16:29 Dextrose (Dextrose 50% 50ML Syringe) 50 ml UD PRN IV 01/11/17 16:30 02/10/17 16:29 Glucagon (Glucagon Inj) 1 mg UD PRN SQ 01/11/17 16:30 02/10/17 16:29 Aspirin (Ecotrin Tab) 81 mg QAM PO 01/13/17 09:00 02/12/17 08:59 01/18/17 07:59 81 MG Benzonatate (Tessalon Perles Cap) 200 mg Q8 PO 01/12/17 14:00 02/11/17 13:59 01/18/17 19:33 200 MG Albuterol/ Ipratropium (Combivent Respimat Inh) 1 puffs QID INH 01/12/17 13:00 02/11/17 12:59 01/18/17 19:32 1 PUFFS Lactulose (Chronulac Syrup) 30 gm TID PO 01/12/17 14:00 02/11/17 13:59 01/18/17 19:31 30 GM Lisinopril (Zestril Tab) 5 mg QAM PO 01/13/17 09:00 02/12/17 08:59 01/18/17 07:59 5 MG Magnesium Oxide (Mag-Ox Tab) 400 mg QAM PO 01/13/17 09:00 02/12/17 08:59 01/18/17 07:58 400 MG Nystatin (Mycostatin Powder) 1 appln BID EXT 01/12/17 21:00 02/11/17 20:59 01/18/17 19:32 1 APPLN Potassium Chloride (Klor-Con M10) 40 meq BIDM PO 01/12/17 16:45 02/11/17 16:44 Future Hold 01/16/17 09:24 40 MEQ Levetiracetam (Keppra Tab) 500 mg BID PO 01/12/17 21:00 02/11/17 20:59 01/18/17 19:31 500 MG Acetaminophen (Tylenol Tab) 650 mg Q4H PRN PO 01/12/17 10:00 02/11/17 09:59 01/18/17 22:27 650 MG Insulin Glargine (Lantus Solostar Pen) 14 units BID SC 01/14/17 09:00 02/12/17 20:59 01/18/17 20:30 14 UNITS [place] Carbonate ([place] Carbonate Tab) 150 mg BID PO 01/16/17 08:00 02/15/17 07:59 01/18/17 19:31 150 MG Acetazolamide (Diamox Tab) 250 mg BID17 PO 01/16/17 17:00 01/19/17 16:59 01/18/17 18:30 250 MG Impression (1) Hyponatremia (2) Metabolic alkalosis (3) Hypokalemia (4) Anemia Dara is a 61-year-old female with past medical history is significant for schizoaffective disorder, hypertension, diabetes chronic hyponatremia with CHF and diastolic dysfunction admitted to the hospital with respiratory failure and altered mental status. She was started on IV diuretics with improvement in volume status, high urine output and has been net negative 3-4 liters per day. With significant polyuria with lithium and and possibly polydipsia I would expected to have hypernatremia, instead she has chronic hyponatremia most likely because of the fact that she is able to maintain p.o. intake very well and also on both loop and thiazide diuretics the. H/O dialysis requiring LISBETH, recovered, has normal renal function now, has left BC AVF, with decent thrill and bruit. Recommendations --restart on Lasix 20 milligram p.o. daily --mild fluid restriction to 1500 mL per day and liberalize salt in diet --on diamox 250 mg BID for metabolic alkalosis will sign off.
--- NOTE | 2017-01-19 11:26 | Progress Note ---
Subjective Date of Service: Jan 19, 2017. Subjective Pt evaluation today including: conversation w/ patient, physical exam, chart review, lab review, review of studies, review of inpatient medication list Pt resting comfortably in bed Able to keep BiPAP on all of the night Cough but nonpoductive No other distress noted Problem List Medical Problems: (1) Acute CHF Status: Acute (2) Altered mental status Status: Acute (3) Change in mental status Status: Acute (4) CHF (congestive heart failure) Status: Acute (5) CHF (congestive heart failure) Status: Acute (6) CO2 retention Status: Acute (7) Fall Status: Acute (8) Hyperammonemia Status: Acute (9) Hyperammonemia Status: Acute (10) Hyperammonemia Permanent Comment: Non cirrhotic hyperammonemia Status: Acute (11) Hyperammonemia Status: Acute (12) Hypercalcemia Status: Acute (13) Hypercarbia Status: Acute (14) Hypercarbia Status: Acute (15) Hypercarbia Status: Acute (16) Hyperglycemia Status: Acute (17) Hypokalemia Status: Acute (18) Hyponatremia Status: Acute (19) Hyponatremia Status: Acute (20) Hyponatremia Status: Acute (21) Lower extremity weakness Status: Acute (22) Seizure Status: Acute (23) SOB (shortness of breath) Status: Acute (24) Weakness Status: Acute Review of Systems Constitutional: No fever, No chills, No sweats, No weight loss, No weakness Respiratory: + cough, No sputum, No wheezing, No shortness of breath, No dyspnea on exertion Cardiac: + edema, No chest pain, No orthopnea, No PND Abdomen: No pain, No nausea, No vomiting, No diarrhea Musculoskeletal: No joint pain, No muscle pain, No swelling, No calf pain Female : No dysuria, No urinary frequency, No hematuria, No incontinence Neurologic: No memory loss, No paralysis, No weakness, No numbness/tingling Psychiatric: No depression symptoms, No anhedonism, No anxiety, No insomnia Endo: No fatigue, No excessive thirst Skin: No rash, No itch, No new/changing skin lesions, No color change Objective Vital Signs Date Time Temp Pulse Resp B/P (MAP) Pulse Ox O2 Delivery O2 Flow Rate FiO2 01/19/17 10:47 Nasal Cannula 2.0 01/19/17 07:12 36.8 85 16 96/66 (76) 97 Nasal Cannula 2.0 01/19/17 00:10 36.7 85 20 107/72 (84) 95 Nasal Cannula 2.0 01/19/17 00:07 67 94 30 01/19/17 00:00 Nasal Cannula 2.0 01/18/17 20:00 Nasal Cannula 2.0 01/18/17 17:02 Nasal Cannula 2.0 01/18/17 16:00 37.0 76 18 99/59 (72) 94 Nasal Cannula 2.0 Physical Exam General Appearance: WD/WN, no apparent distress Eyes: normal inspection, PERRL, EOMI, sclerae normal Neck: supple, no adenopathy, thyroid normal Respiratory/Chest: lungs clear, normal breath sounds, no accessory muscle use, + decreased breath sounds Cardiovascular: no gallop, no JVD, no murmur Abdomen: normal bowel sounds, non tender, soft, no organomegaly 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: no motor/sensory deficits, alert, normal mood/affect, oriented x 3 Laboratory Results Last 24 Hours Test 01/18/17 11:39 01/18/17 16:21 01/18/17 19:53 01/19/17 07:44 Bedside Glucose 196 mg/dl 131 mg/dl 179 mg/dl 119 mg/dl Test 01/19/17 08:10 Sodium Level 127 mmol/L Potassium Level 3.6 mmol/L Chloride Level 88 mmol/L Carbon Dioxide Level 34 mmol/L Anion Gap 5.0 mmol/L Blood Urea Nitrogen 14 mg/dl Creatinine 0.81 mg/dl Est Creatinine Clear Calc Drug Dose 81.6 ml/min Estimated GFR () 90.9 Estimated GFR (Non- 78.4 BUN/Creatinine Ratio 17.0 Random Glucose 118 mg/dl Calcium Level 9.3 mg/dl Assessment and Plan 61 y/o female with a history of diastolic CHF, respiratory failure with hypercapnia, DM II, HTN, seizure disorder, bipolar disorder and paranoid schizophrenia meaty on 01/11/2017 with shortness of breath and altered mental status. Pt has a h/o respiratory failure with CO2 retention and is supposed to be on BiPAP every night but has h/o noncompliance with this and resulting encephalopathy. 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 Pt is supposed to be on BiPAP every night at home but is noncompliant. - Now NC O2 2 L per min, which is in her baseline home concentration -Discontinued Iniguez catheter -Pt alert and oriented x 3, diet ordered -Echo completed: * -- Conclusions -- * Compared to previous study of 12/25/15: LV systolic function is now normal and PASP has reduced. * Mildly dilated LV chamber with mild concentric LVH. * Normal LV systolic function, EF 55-60%. * No segmental left ventricular wall motion abnormalities are noted. * Grade I diastolic dysfunction. * Moderately dilated RV chamber with visually reduced systolic function. * Moderate to severe tricuspid regurgittation. * PASP of 38 mmHg assuming a RA pressure of 3 mmHg. -Continue Combivent inhaler QID -Continue potassium supplement -Urine culture negative, blood cultures NGTD x 2 -Awaiting rehab at this time, will need update PT/OT assessment, family discussion on 01/18/17 -Referrals sent to [facility], awaiting determination Dental infection--pt started on penicillin as an outpatient by dentist, confirmed with pt's pharmacy, no worsening pain or infection -Completed Pen VK 500 mg PO q6h x 3 days to complete course DM II--last HgbA1c check 11/30/16 was 7.4 -Cont Lantus 14 units SC BID (home dose) -Insulin sliding scale -Check BSGs q ac and qhs HTN--stable -Continue lisinopril 5 mg PO qd Seizure disorder -Continue levetiracetam 500 mg PO BID Bipolar disorder, paranoid schizophrenia Has checked vitamin B12 level Iniguez acid and ammonia level, they were all normal Recheck lithium in few days DVT prophylaxis -Enoxaparin 40 mg SC q24h -JAYDON Lamas Code Status -Level I, FULL RESUSCITATION STATUS Continued [facility] stay due to: home environment unsafe for pt Discharge planning: alf facility
[2017-01-19] MEDS: FUROSEMIDE 20 MG TAB PO SCH ×2 (12:19→17:14)
[2017-01-19 16:37] VITALS: BP 105/67; PULSE 96; TEMP 36.6; O2SAT 97
[2017-01-19] MEDS: ACETAMINOPHEN 325 MG TAB PO PRN (17:14)
[2017-01-19] MEDS: ENOXAPARIN 40 MG/0.4 ML SYR SC SCH (22:01)
[2017-01-19 23:43] VITALS: BP 97/61; PULSE 87; TEMP 36.3; O2SAT 95
[2017-01-20 03:15] VITALS: PULSE 86; O2SAT 94
[2017-01-20] MEDS: BENZONATATE 100MG CAP PO SCH ×3 (06:00→21:13)
[2017-01-20 07:29] VITALS: BP 145/73; PULSE 97; TEMP 36.2; O2SAT 97
[2017-01-20] MEDS: NYSTATIN POWDER 15GM BTL EXT SCH ×2 (07:38→21:05)
[2017-01-20] MEDS: IPRATROPIUM BROMIDE/ALBUTEROL respimat INH INH SCH ×4 (07:38→21:06)
[2017-01-20] MEDS: LITHIUM CARBONATE 300 MG TAB PO SCH ×2 (07:39→21:11)
[2017-01-20] MEDS: ASPIRIN 81 MG ECTAB PO SCH (07:39)
[2017-01-20] MEDS: LEVETIRACETAM 500 MG TAB PO SCH ×2 (07:39→21:11)
[2017-01-20] MEDS: LACTULOSE SYRUP 30 GM/45 ML UDP PO SCH ×3 (07:39→21:06)
[2017-01-20] MEDS: LISINOPRIL 5 MG TAB PO SCH (07:40)
[2017-01-20] MEDS: FUROSEMIDE 20 MG TAB PO SCH ×2 (07:40→16:42)
[2017-01-20] MEDS: MAGNESIUM OXIDE 400 MG TAB PO SCH (07:40)
[2017-01-20] MEDS: INSULIN GLARGINE SOLOSTAR 100 UNITS/ML 3 ML PEN SC SCH ×2 (07:42→21:20)
[2017-01-20 08:14] LABS: BUN/CREATININE RATIO 15.6 (10-20); CALCIUM 9.4 mg/dl (8.5-10.1); CREATININE 0.95 mg/dl (0.60-1.20); POTASSIUM 3.7 mmol/L (3.5-5.1)
[2017-01-20 08:15] LABS: BASO % 0.2 %; BASO ABS # 0.01 K/uL (0-0.2); COMPLETE YES; EOS % 0.5 %; HEMATOCRIT 36.9 % (37-47); IG% 0.2 %; LYMPH % 22.5 %; LYMPH ABS # 1.41 K/uL (1.2-3.4); MEAN CELL VOLUME 96.3 fL (80-100); MEAN CORPUSCULAR HEMOGLOBIN 27.7 pg (25-34); MEAN CORPUSCULAR HGB CONC 28.7 g/dl (32-36); MEAN PLATELET VOLUME 9.2 fL (7.4-10.4); NEUT % 66.6 %; PLATELET COUNT 159 K/uL (130-400); RED BLOOD COUNT 3.83 M/uL (4.2-5.4); WHITE BLOOD COUNT 6.28 K/uL (4.8-10.8)
[2017-01-20] MEDS: ACETAMINOPHEN 325 MG TAB PO PRN ×2 (08:21→16:41)
[2017-01-20] MEDS: INSULIN ASPART 100 UNITS/ML 3 ML PEN SC SCH ×4 (08:25→21:21)
--- NOTE | 2017-01-20 12:45 | Psychiatric Consultation ---
Psychiatric Consultation Date of Service: Jan 20, 2017. Asked to re-evaluate patient's mental status in view of improvements to condition. She is seated at the bedside, wearing her O2 by NC. She is alert, and cooperative. She remembers me from previous contacts, including where I live and the context for her knowing that. She is fully oriented and can tell me that the primary team is suggesting that she go to [facility] or a penitentiary, which she adamantly refuses to do. She says that tomorrow is her birthday and she wants to be home for that. She does not think that she needs a penitentiary, and is willing to accept more in home nursing care if that's what it takes to keep her in her home. "My name is on that house too, he can't throw me out". She is willing to receive all meds and treatment for her medical conditions at home. When asked what could happen if she goes home when her does not feel he can care for her, she says that she will not rely on him, but rely on her nursing caregivers. When asked how she will know when she is ready to go to a penitentiary she says that if all of her in home workers say that they can not longer provider her care, then she will go. IMPRESSION: the patient has the ability to communicate her wishes, and understands the information being given. She has the ability to reason and to appreciate the meaning of her decisions. Her encephalopathy has resolved and she now has capacity to make decisions regarding discharge disposition.
[2017-01-20 15:19] VITALS: BP 120/71; PULSE 96; TEMP 37.2; O2SAT 94
[2017-01-20] MEDS: ENOXAPARIN 40 MG/0.4 ML SYR SC SCH (21:15)
[2017-01-20 23:36] VITALS: BP 123/78; PULSE 96; TEMP 36.6; O2SAT 96
[2017-01-21] MEDS: ACETAMINOPHEN 325 MG TAB PO PRN ×4 (05:28→21:32)
[2017-01-21] MEDS: BENZONATATE 100MG CAP PO SCH ×3 (05:29→21:33)
[2017-01-21 06:29] LABS: COMPLETE YES; EOS % 0.8 %; HEMATOCRIT 37.7 % (37-47); IG% 0.2 %; LYMPH ABS # 1.31 K/uL (1.2-3.4); MEAN CELL VOLUME 97.4 fL (80-100); MEAN CORPUSCULAR HEMOGLOBIN 27.4 pg (25-34); MEAN CORPUSCULAR HGB CONC 28.1 g/dl (32-36); MEAN PLATELET VOLUME 9.5 fL (7.4-10.4); MONO % 11.5 %; NEUT % 66.5 %; PLATELET COUNT 172 K/uL (130-400); RED BLOOD COUNT 3.87 M/uL (4.2-5.4); WHITE BLOOD COUNT 6.24 K/uL (4.8-10.8)
[2017-01-21 07:11] LABS: BUN/CREATININE RATIO 14.6 (10-20); CALCIUM 9.6 mg/dl (8.5-10.1); CREATININE 0.8 mg/dl (0.60-1.20); POTASSIUM 3.7 mmol/L (3.5-5.1)
[2017-01-21 07:18] VITALS: BP 98/61; PULSE 84; TEMP 36.4; O2SAT 97
[2017-01-21] MEDS: IPRATROPIUM BROMIDE/ALBUTEROL respimat INH INH SCH ×4 (08:47→21:30)
[2017-01-21] MEDS: LACTULOSE SYRUP 30 GM/45 ML UDP PO SCH ×3 (08:47→21:30)
[2017-01-21] MEDS: ASPIRIN 81 MG ECTAB PO SCH (08:48)
[2017-01-21] MEDS: NYSTATIN POWDER 15GM BTL EXT SCH ×2 (08:48→21:30)
[2017-01-21] MEDS: MAGNESIUM OXIDE 400 MG TAB PO SCH (08:48)
[2017-01-21] MEDS: LEVETIRACETAM 500 MG TAB PO SCH ×2 (08:48→21:31)
[2017-01-21] MEDS: LITHIUM CARBONATE 300 MG TAB PO SCH ×2 (08:48→21:31)
[2017-01-21] MEDS: LISINOPRIL 5 MG TAB PO SCH (08:48)
[2017-01-21] MEDS: FUROSEMIDE 20 MG TAB PO SCH ×2 (08:48→19:08)
[2017-01-21 08:51] VITALS: BP_SYST 135; BP_DIAS 80; BP_DIAS 83; PULSE 90; O2SAT 98
[2017-01-21] MEDS: INSULIN ASPART 100 UNITS/ML 3 ML PEN SC SCH ×4 (08:59→21:38)
[2017-01-21] MEDS: INSULIN GLARGINE SOLOSTAR 100 UNITS/ML 3 ML PEN SC SCH ×2 (09:00→21:39)
--- NOTE | 2017-01-21 09:57 | Psychiatric Progress Notes ---
Psychiatric Progress Note Date of Service Jan 21, 2017. Notes chart reviewed, due for Haldol decanoate on 01/24. Will order so pharmacy can prep. Liaison cancelled injection appt for 01/24 at [facility], has f/u as scheduled later in month with Dr. Clemente. Should remain on lower dose of [place] of 150 mg BID as currently ordered. If patient is discharged prior to from medical floor the shot can be given a few days early, ie can give just prior to discharge.
[2017-01-21 15:36] VITALS: BP 141/86; PULSE 89; TEMP 36.4; O2SAT 98
--- NOTE | 2017-01-21 16:22 | Progress Note ---
Subjective Date of Service: Jan 21, 2017. Subjective Pt evaluation today including: conversation w/ patient, conversation w/ family Pt is upset over not going home today as it is her birthday. States she feels "fantastic". She would also like an increase in her fluids. Pt denies fever, SOB, chest pain, abd pain, n/v/c/d, LE pain or swelling. Pt states she does not want to go to as she has been there in the past and does not like it. Problem List Medical Problems: (1) Acute CHF Status: Acute (2) Altered mental status Status: Acute (3) Change in mental status Status: Acute (4) CHF (congestive heart failure) Status: Acute (5) CHF (congestive heart failure) Status: Acute (6) CO2 retention Status: Acute (7) Fall Status: Acute (8) Hyperammonemia Status: Acute (9) Hyperammonemia Status: Acute (10) Hyperammonemia Permanent Comment: Non cirrhotic hyperammonemia Status: Acute (11) Hyperammonemia Status: Acute (12) Hypercalcemia Status: Acute (13) Hypercarbia Status: Acute (14) Hypercarbia Status: Acute (15) Hypercarbia Status: Acute (16) Hyperglycemia Status: Acute (17) Hypokalemia Status: Acute (18) Hyponatremia Status: Acute (19) Hyponatremia Status: Acute (20) Hyponatremia Status: Acute (21) Lower extremity weakness Status: Acute (22) Seizure Status: Acute (23) SOB (shortness of breath) Status: Acute (24) Weakness Status: Acute Review of Systems All Other Systems: Reviewed and Negative Objective Vital Signs Date Time Temp Pulse Resp B/P (MAP) Pulse Ox O2 Delivery O2 Flow Rate FiO2 01/21/17 15:36 36.4 89 18 141/86 (104) 98 Nasal Cannula 2.0 01/21/17 08:51 90 135/83 (100) 98 Nasal Cannula 2.0 01/21/17 08:30 Nasal Cannula 2.0 01/21/17 07:18 36.4 84 16 98/61 (73) 97 Nasal Cannula 2.0 01/21/17 00:00 Nasal Cannula 2.0 01/20/17 23:36 36.6 96 20 123/78 (93) 96 Nasal Cannula 2.0 Physical Exam General Appearance: WD/WN, no apparent distress Eyes: normal inspection, EOMI ENT: hearing grossly normal Neck: supple Respiratory/Chest: normal breath sounds, no respiratory distress Cardiovascular: regular rate, rhythm, no edema Abdomen: non tender, soft Extremities: non-tender, no pedal edema 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: alert, oriented x 3 Skin: normal color, warm/dry Laboratory Results Last 24 Hours Test 01/20/17 16:13 01/20/17 20:42 01/21/17 05:42 01/21/17 07:27 Bedside Glucose 142 mg/dl 166 mg/dl 103 mg/dl White Blood Count 6.24 K/uL Red Blood Count 3.87 M/uL Hemoglobin 10.6 g/dL Hematocrit 37.7 % Mean Corpuscular Volume 97.4 fL Mean Corpuscular Hemoglobin 27.4 pg Mean Corpuscular Hemoglobin Concent 28.1 g/dl Platelet Count 172 K/uL Mean Platelet Volume 9.5 fL Neutrophils (%) (Auto) 66.5 % Lymphocytes (%) (Auto) 21.0 % Monocytes (%) (Auto) 11.5 % Eosinophils (%) (Auto) 0.8 % Basophils (%) (Auto) 0.0 % Neutrophils # (Auto) 4.15 K/uL Lymphocytes # (Auto) 1.31 K/uL Monocytes # (Auto) 0.72 K/uL Eosinophils # (Auto) 0.05 K/uL Basophils # (Auto) 0.00 K/uL RDW Standard Deviation 55.6 fL RDW Coefficient of Variation 15.8 % Immature Granulocyte % (Auto) 0.2 % Immature Granulocyte # (Auto) 0.01 K/uL Sodium Level 139 mmol/L Potassium Level 3.7 mmol/L Chloride Level 98 mmol/L Carbon Dioxide Level 41 mmol/L Anion Gap 0.0 mmol/L Blood Urea Nitrogen 12 mg/dl Creatinine 0.80 mg/dl Est Creatinine Clear Calc Drug Dose 81.6 ml/min Estimated GFR () 91.6 Estimated GFR (Non- 79.0 BUN/Creatinine Ratio 14.6 Random Glucose 92 mg/dl Calcium Level 9.6 mg/dl Test 01/21/17 11:21 Bedside Glucose 132 mg/dl Assessment and Plan 61 y/o female with a history of diastolic CHF, respiratory failure with hypercapnia, DM II, HTN, seizure disorder, bipolar disorder and paranoid schizophrenia meaty on 01/11/2017 with shortness of breath and altered mental status. Pt has a h/o respiratory failure with CO2 retention and is supposed to be on BiPAP every night but has h/o noncompliance with this and resulting encephalopathy. 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 Pt is supposed to be on BiPAP every night at home but is noncompliant. - Now NC O2 2 L per min, which is in her baseline home concentration -Discontinued Iniguez catheter -Pt alert and oriented x 3, diet ordered -Echo completed: * -- Conclusions -- * Compared to previous study of 12/25/15: LV systolic function is now normal and PASP has reduced. * Mildly dilated LV chamber with mild concentric LVH. * Normal LV systolic function, EF 55-60%. * No segmental left ventricular wall motion abnormalities are noted. * Grade I diastolic dysfunction. * Moderately dilated RV chamber with visually reduced systolic function. * Moderate to severe tricuspid regurgittation. * PASP of 38 mmHg assuming a RA pressure of 3 mmHg. -Continue Combivent inhaler QID -Continue potassium supplement -Urine culture negative, blood cultures NGTD x 2 Dental infection--pt started on penicillin as an outpatient by dentist, confirmed with pt's pharmacy, no worsening pain or infection -Completed Pen VK 500 mg PO q6h x 3 days to complete course DM II--last HgbA1c check 11/30/16 was 7.4 -Cont Lantus 14 units SC BID (home dose) -Insulin sliding scale -Check BSGs q ac and qhs HTN--stable -Continue lisinopril 5 mg PO qd Seizure disorder -Continue levetiracetam 500 mg PO BID Bipolar disorder, paranoid schizophrenia Has checked vitamin B12 level Iniguez acid and ammonia level, they were all normal Recheck lithium in few days DVT prophylaxis -Enoxaparin 40 mg SC q24h -JAYDON Lamas Code Status -Level I, FULL RESUSCITATION STATUS -Advised for rehab at this time given pt's multiple readmissions for medical noncompliance, however pt is refusing and states he will not force her. Seen by psych and determined to have capacity Planning for d/c home tomorrow as that is when will be able to resume care and private duty nursing will start on Tuesday HH is also being arranged Continued [facility] stay due to: home environment unsafe for pt Discharge planning: [facility] facility
--- NOTE | 2017-01-21 17:37 | Progress Note ---
Subjective Date of Service: Jan 20, 2017. Subjective Pt evaluation today including: conversation w/ patient, physical exam, chart review, lab review, review of studies, conversation w/ freight traffic consultant, review of inpatient medication list Upset about wanting to go home States feeling better Alert and oriented x 3 Problem List Medical Problems: (1) Acute CHF Status: Acute (2) Altered mental status Status: Acute (3) Change in mental status Status: Acute (4) CHF (congestive heart failure) Status: Acute (5) CHF (congestive heart failure) Status: Acute (6) CO2 retention Status: Acute (7) Fall Status: Acute (8) Hyperammonemia Status: Acute (9) Hyperammonemia Status: Acute (10) Hyperammonemia Permanent Comment: Non cirrhotic hyperammonemia Status: Acute (11) Hyperammonemia Status: Acute (12) Hypercalcemia Status: Acute (13) Hypercarbia Status: Acute (14) Hypercarbia Status: Acute (15) Hypercarbia Status: Acute (16) Hyperglycemia Status: Acute (17) Hypokalemia Status: Acute (18) Hyponatremia Status: Acute (19) Hyponatremia Status: Acute (20) Hyponatremia Status: Acute (21) Lower extremity weakness Status: Acute (22) Seizure Status: Acute (23) SOB (shortness of breath) Status: Acute (24) Weakness Status: Acute Review of Systems Constitutional: No fever, No chills, No sweats, No weight loss Eyes: No worsening of vision, No eye pain ENT: No hearing loss, No unusual epistaxis, No nasal symptoms, No sore throat Respiratory: No cough, No sputum, No wheezing, No shortness of breath Cardiac: No chest pain, No orthopnea, No PND, No edema Abdomen: No pain, No nausea, No vomiting, No diarrhea Musculoskeletal: No joint pain, No muscle pain Female : No dysuria, No urinary frequency, No hematuria Neurologic: No see HPI, No paralysis, No weakness, No numbness/tingling, No vertigo, No balance problems, No problem reported Psychiatric: No see HPI, No depression symptoms, No anhedonism, No anxiety, No insomnia, No substance abuse, No problem reported Skin: No see HPI, No rash, No itch, No new/changing skin lesions, No color change, No bleeding, No problem reported Objective Vital Signs Date Time Temp Pulse Resp B/P (MAP) Pulse Ox O2 Delivery O2 Flow Rate FiO2 01/21/17 15:36 36.4 89 18 141/86 (104) 98 Nasal Cannula 2.0 01/21/17 08:51 90 135/83 (100) 98 Nasal Cannula 2.0 01/21/17 08:30 Nasal Cannula 2.0 01/21/17 07:18 36.4 84 16 98/61 (73) 97 Nasal Cannula 2.0 01/21/17 00:00 Nasal Cannula 2.0 01/20/17 23:36 36.6 96 20 123/78 (93) 96 Nasal Cannula 2.0 Physical Exam General Appearance: WD/WN, no apparent distress Eyes: normal inspection, PERRL, EOMI, sclerae normal Neck: supple, no adenopathy, thyroid normal, no JVD Respiratory/Chest: lungs clear, no respiratory distress, no accessory muscle use, + decreased breath sounds Cardiovascular: no edema, no gallop, no JVD, no murmur Abdomen: normal bowel sounds, non tender, soft, no organomegaly Extremities: normal range of motion, non-tender, normal inspection, no pedal edema 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: no motor/sensory deficits, alert, normal mood/affect, oriented x 3 Skin: normal color, warm/dry, no rash Lymphatic: no adenopathy Laboratory Results Last 24 Hours Test 01/20/17 20:42 01/21/17 05:42 01/21/17 07:27 01/21/17 11:21 Bedside Glucose 166 mg/dl 103 mg/dl 132 mg/dl White Blood Count 6.24 K/uL Red Blood Count 3.87 M/uL Hemoglobin 10.6 g/dL Hematocrit 37.7 % Mean Corpuscular Volume 97.4 fL Mean Corpuscular Hemoglobin 27.4 pg Mean Corpuscular Hemoglobin Concent 28.1 g/dl Platelet Count 172 K/uL Mean Platelet Volume 9.5 fL Neutrophils (%) (Auto) 66.5 % Lymphocytes (%) (Auto) 21.0 % Monocytes (%) (Auto) 11.5 % Eosinophils (%) (Auto) 0.8 % Basophils (%) (Auto) 0.0 % Neutrophils # (Auto) 4.15 K/uL Lymphocytes # (Auto) 1.31 K/uL Monocytes # (Auto) 0.72 K/uL Eosinophils # (Auto) 0.05 K/uL Basophils # (Auto) 0.00 K/uL RDW Standard Deviation 55.6 fL RDW Coefficient of Variation 15.8 % Immature Granulocyte % (Auto) 0.2 % Immature Granulocyte # (Auto) 0.01 K/uL Sodium Level 139 mmol/L Potassium Level 3.7 mmol/L Chloride Level 98 mmol/L Carbon Dioxide Level 41 mmol/L Anion Gap 0.0 mmol/L Blood Urea Nitrogen 12 mg/dl Creatinine 0.80 mg/dl Est Creatinine Clear Calc Drug Dose 81.6 ml/min Estimated GFR () 91.6 Estimated GFR (Non- 79.0 BUN/Creatinine Ratio 14.6 Random Glucose 92 mg/dl Calcium Level 9.6 mg/dl Test 01/21/17 16:44 Bedside Glucose 121 mg/dl Assessment and Plan 61 y/o female with a history of diastolic CHF, respiratory failure with hypercapnia, DM II, HTN, seizure disorder, bipolar disorder and paranoid schizophrenia meaty on 01/11/2017 with shortness of breath and altered mental status. Pt has a h/o respiratory failure with CO2 retention and is supposed to be on BiPAP every night but has h/o noncompliance with this and resulting encephalopathy. 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 Pt is supposed to be on BiPAP every night at home but is noncompliant. - Now NC O2 2 L per min, which is in her baseline home concentration -Discontinued Iniguez catheter -Pt alert and oriented x 3, diet ordered -Echo completed: * -- Conclusions -- * Compared to previous study of 12/25/15: LV systolic function is now normal and PASP has reduced. * Mildly dilated LV chamber with mild concentric LVH. * Normal LV systolic function, EF 55-60%. * No segmental left ventricular wall motion abnormalities are noted. * Grade I diastolic dysfunction. * Moderately dilated RV chamber with visually reduced systolic function. * Moderate to severe tricuspid regurgittation. * PASP of 38 mmHg assuming a RA pressure of 3 mmHg. -Continue Combivent inhaler QID -Continue potassium supplement -Urine culture negative, blood cultures NGTD x 2 -Awaiting rehab at this time, will need update PT/OT assessment, family discussion on 01/18/17 -[facility], psych reconsulted, deemed pt has capacity to make decisions -Will await what pt and will decide as far as dispo Dental infection--pt started on penicillin as an outpatient by dentist, confirmed with pt's pharmacy, no worsening pain or infection -Completed Pen VK 500 mg PO q6h x 3 days to complete course DM II--last HgbA1c check 11/30/16 was 7.4 -Cont Lantus 14 units SC BID (home dose) -Insulin sliding scale -Check BSGs q ac and qhs HTN--stable -Continue lisinopril 5 mg PO qd Seizure disorder -Continue levetiracetam 500 mg PO BID Bipolar disorder, paranoid schizophrenia Has checked vitamin B12 level Iniguez acid and ammonia level, they were all normal Recheck lithium in few days DVT prophylaxis -Enoxaparin 40 mg SC q24h -JAYDON Lamas Code Status -Level I, FULL RESUSCITATION STATUS Continued [facility] stay due to: home environment unsafe for pt Discharge planning: group home facility
[2017-01-21] MEDS: ENOXAPARIN 40 MG/0.4 ML SYR SC SCH (21:34)
[2017-01-21 23:56] VITALS: BP 129/79; PULSE 90; TEMP 36.9; O2SAT 94
[2017-01-22] MEDS: BENZONATATE 100MG CAP PO SCH (06:20)
[2017-01-22 07:03] VITALS: BP 124/76; PULSE 83; TEMP 36.9; O2SAT 96
[2017-01-22 07:03] LABS: BLOOD UREA NITROGEN 13 mg/dl (7-18); BUN/CREATININE RATIO 16.4 (10-20); CALCIUM 9.8 mg/dl (8.5-10.1); CARBON DIOXIDE 39 mmol/L (21-32); CHLORIDE 99 mmol/L (98-107); CREATININE 0.77 mg/dl (0.60-1.20); GLUCOSE 143 mg/dl (70-99); SODIUM 138 mmol/L (136-145)
[2017-01-22 07:13] LABS: BASO % 0.3 %; BASO ABS # 0.02 K/uL (0-0.2); COMPLETE YES; EOS % 1.5 %; HEMATOCRIT 36.6 % (37-47); IG% 0.5 %; LYMPH % 15.6 %; LYMPH ABS # 0.92 K/uL (1.2-3.4); MEAN CELL VOLUME 97.9 fL (80-100); MEAN CORPUSCULAR HEMOGLOBIN 28.1 pg (25-34); MEAN CORPUSCULAR HGB CONC 28.7 g/dl (32-36); MEAN PLATELET VOLUME 10.3 fL (7.4-10.4); MONO % 12.7 %; NEUT % 69.4 %; PLATELET COUNT 164 K/uL (130-400); RED BLOOD COUNT 3.74 M/uL (4.2-5.4)
[2017-01-22] MEDS: MAGNESIUM OXIDE 400 MG TAB PO SCH (07:40)
[2017-01-22] MEDS: ASPIRIN 81 MG ECTAB PO SCH (07:40)
[2017-01-22] MEDS: FUROSEMIDE 20 MG TAB PO SCH (07:41)
[2017-01-22] MEDS: LEVETIRACETAM 500 MG TAB PO SCH (07:41)
[2017-01-22] MEDS: LISINOPRIL 5 MG TAB PO SCH (07:41)
[2017-01-22] MEDS: NYSTATIN POWDER 15GM BTL EXT SCH (07:42)
[2017-01-22] MEDS: LACTULOSE SYRUP 30 GM/45 ML UDP PO SCH (07:42)
[2017-01-22] MEDS: LITHIUM CARBONATE 300 MG TAB PO SCH (07:42)
[2017-01-22] MEDS: IPRATROPIUM BROMIDE/ALBUTEROL respimat INH INH SCH ×2 (07:42→12:05)
[2017-01-22] MEDS: ACETAMINOPHEN 325 MG TAB PO PRN ×2 (07:43→13:12)
[2017-01-22] MEDS: INSULIN ASPART 100 UNITS/ML 3 ML PEN SC SCH ×2 (08:15→12:14)
[2017-01-22] MEDS: INSULIN GLARGINE SOLOSTAR 100 UNITS/ML 3 ML PEN SC SCH (08:16)
--- NOTE | 2017-01-22 12:31 | Discharge Instructions ---
Discharge Instructions Date of Service Jan 22, 2017. Admission Reason for Admission: Acute Respiratory Failure With Hypoxia And Discharge Discharge Diagnosis / Problem: Acute hypercapnic resp failure secondary to non complaince with CPAP Discharge Goals Goal(s): Decrease discomfort, Improve function, Increase independence, Improve disease control, Improve nutritional status, Learn about illness, Diagnostic testing Activity Recommendations Activity Limitations: as noted below Lifting Limitations: gradually increase as tolerated Exercise/Sports Limitations: rest today May Resume Sexual Activity: when tolerated Shower/Bathe: no limitations Driving or Machine Use: . Current Hospital Diet Patient's current hospital diet: Diabetes Type 2 Diet, Low Sodium Diet (2gm Na) Discharge Diet Recommended Diet: AHA Diet (Heart Healthy), Low Sodium Diet (2gm Na) Procedures Procedures Performed: none Pending Studies Studies pending at discharge: no Laboratory Results Hemoglobin A1c Test 11/30/16 07:08 Range/Units Estimated Average Glucose 166 mg/dl Hemoglobin A1c 7.4 H 4.5-5.6 % Medical Emergencies . Who to Call and When: Medical Emergencies: If at any time you feel your situation is an emergency, please call 911 immediately. . Non-Emergent Contact Non-Emergency issues call your: Primary Care Provider Call Non-Emergent contact if: your pain is not controlled, you have any medication questions . . "Provider Documentation" section prepared by Adis Dickson . VTE Core Measure Inpt VTE Proph given/why not?: Enoxaparin (Lovenox)SQ, SCD's
[2017-01-22 12:37] VITALS: BP 124/76; PULSE 83; TEMP 36.9; O2SAT 96
--- NOTE | 2017-01-22 12:38 | Discharge Summary ---
Discharge Summary Date of Service Jan 22, 2017. Discharge Summary Admission Date: Jan 11, 2017 at 16:16 Discharge Date: Jan 22, 2017 Discharge Disposition: Home Principal Diagnosis: Acute resp failure secondary to non complaince with CPAP Immunizations: Have You Had Influenza Vaccine: Unknown Influenza Vaccine Date: Sep 27, 2009 History of Tetanus Vaccine?: Unknown History of Pneumococcal: No Pneumococcal Date: Jun 28, 2007 History of Hepatitis B Vaccine: Unknown Medication Reconciliation Continued Medications: Aspirin (Aspirin Ec) 81 Mg Tab 81 MG PO QAM Benzonatate (Tessalon Perles) 200 Mg Cap 200 MG PO Q8, CAP Cholecalciferol (Vitamin D3) 1,000 Unit Cap 1000 INTER.UNIT PO QAM Furosemide (Lasix) 40 Mg Tab 40 MG PO BID, #60 TAB Haloperidol Decanoate (Haldol Decanoate 100) 100 Mg/Ml Inj 1 ML IM MONTHLY for 30 Days, #1 ML 5 Refills Insulin Aspart (Novolog) 100 Units/Ml Inj 0 SQ UD ONLY IF BS IS >180 Insulin Glargine (Lantus Solostar) 100 Unit/Ml Inj 14 UNITS SC AMPM, PEN Ipratropium-Albuterol (Combivent Respimat) 1 Aer Aer 1 PUFFS INH QID, INH Lactulose (Lactulose) 30 Gm/45 Ml Syrp 30 GM PO TID, #90 DOSE Levetiractam (Levetiracetam) 500 Mg Tab 500 MG PO BID Lisinopril (Lisinopril) 5 Mg Tab 5 MG PO QAM [place] Carbonate ([place] Carbonate) 300 Mg Cap 300 MG PO QAM, #180 [place] Carbonate ([place] Carbonate ER) 300 Mg Tab 300 MG PO HS, #30 TAB Magnesium Oxide (Mag-Ox) 400 Mg Tab 400 MG PO QAM Metolazone (Zaroxolyn) 5 Mg Tab 5 MG PO DAILY PRN for ud, #10 TAB give daily prn weight gain of more than 2 lbs Nystatin (Nystop) 45 Appln/15 Gm Powd 1 APPLN TOP BID Polyethylene (Miralax) 17 Gm Pow 17 GM PO DAILY PRN for Constipation, #30 Potassium Chloride (Micro-K Ext Rel) 10 Meq Capcr 40 MEQ PO BID, CAP Referrals At Discharge Follow up Referrals: Negative Checker Referral - Within 2 Weeks with Cathy Olivarez MD Discharge Exam Review of Systems: Constitutional: No fever, No chills Respiratory: No cough, No sputum, No wheezing Cardiovascular: No chest pain, No palpitations Abdomen: No pain, No nausea, No vomiting, No diarrhea Genitourinary - Female: No dysuria, No urinary frequency, No urinary urgency , No urinary incontinence Neurologic: No memory loss, No weakness, No numbness/tingling, No vertigo Integumentary: No rash Physical Exam: General Appearance: WD/WN, no apparent distress Eyes: normal inspection Neck: supple, no adenopathy Respiratory/Chest: chest non-tender, lungs clear, no respiratory distress, no accessory muscle use Cardiovascular: regular rate, rhythm, no murmur, normal peripheral pulses Abdomen / GI: normal bowel sounds, non tender, soft 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: no motor/sensory deficits, alert, normal mood/affect , oriented x 3 Skin: no rash Lymphatic: no adenopathy Hospital Course 61 y/o female with a history of diastolic CHF, respiratory failure with hypercapnia, DM II, HTN, seizure disorder, bipolar disorder and paranoid schizophrenia meaty on 01/11/2017 with shortness of breath and altered mental status. Pt has a h/o respiratory failure with CO2 retention and is supposed to be on BiPAP every night but has h/o noncompliance with this and resulting encephalopathy. 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 Pt is supposed to be on BiPAP every night at home but is noncompliant. - Now NC O2 2 L per min, which is in her baseline home concentration -Discontinued Iniguez catheter -Pt alert and oriented x 3, diet ordered -Echo completed: * -- Conclusions -- * Compared to previous study of 12/25/15: LV systolic function is now normal and PASP has reduced. * Mildly dilated LV chamber with mild concentric LVH. * Normal LV systolic function, EF 55-60%. * No segmental left ventricular wall motion abnormalities are noted. * Grade I diastolic dysfunction. * Moderately dilated RV chamber with visually reduced systolic function. * Moderate to severe tricuspid regurgittation. * PASP of 38 mmHg assuming a RA pressure of 3 mmHg. -Continue Combivent inhaler QID -Continue potassium supplement -Urine culture negative, blood cultures NGTD x 2 Dental infection--pt started on penicillin as an outpatient by dentist, confirmed with pt's pharmacy, no worsening pain or infection -Completed Pen VK 500 mg PO q6h x 3 days to complete course DM II--last HgbA1c check 11/30/16 was 7.4 -Cont Lantus 14 units SC BID (home dose) -Insulin sliding scale -Check BSGs q ac and qhs HTN--stable -Continue lisinopril 5 mg PO qd Seizure disorder -Continue levetiracetam 500 mg PO BID Bipolar disorder, paranoid schizophrenia Has checked vitamin B12 level Iniguez acid and ammonia level, they were all normal Recheck lithium in few days DVT prophylaxis -Enoxaparin 40 mg SC q24h -JAYDON Lamas Code Status -Level I, FULL RESUSCITATION STATUS -Advised for rehab at this time given pt's multiple readmissions for medical noncompliance, however pt is refusing and states he will not force her. Seen by psych and determined to have capacity Planning for d/c home tomorrow as that is when will be able to resume care and private duty nursing will start on Tuesday HH is also being arranged Total Time Spent: Greater than 30 minutes This includes examination of the patient, discharge planning, medication reconciliation, and communication with other providers. Discharge Instructions Please refer to the electronic Patient Visit Report (Discharge Instructions) for additional information. Follow-Up Last Resulted CBC 01/22/17 06:01 Red Blood Count 3.74, Mean Corpuscular Volume 97.9, Mean Corpuscular Hemoglobin 28.1, Mean Corpuscular Hemoglobin Concent 28.7, Mean Platelet Volume 10.3, Neutrophils (%) (Auto) 69.4, Lymphocytes (%) (Auto) 15.6, Monocytes (%) (Auto) 12.7, Eosinophils (%) (Auto) 1.5, Basophils (%) (Auto) 0.3, Neutrophils # (Auto ) 4.09, Lymphocytes # (Auto) 0.92, Monocytes # (Auto) 0.75, Eosinophils # (Auto ) 0.09, Basophils # (Auto) 0.02 Last Resulted BMP 01/22/17 06:01 01/22/17 07:30 Additional Copies To Bin Patel M.D.
[2017-01-22] MEDS ORDERED: HALOPERIDOL DECANOATE INJ 50 MG/ML VIAL IM ONE (13:00)
[2017-01-24] MEDS ORDERED: HALOPERIDOL DECANOATE INJ 50 MG/ML VIAL IM ONE (09:00)
== END 2017-01-22 14:23 | disposition home health service (06) | DRG 291 ==
LOC: EDBD 13:20 → C.EDC 13:22 → UNDOADMIN 16:16 → C.2T 16:16 → ENRESERV 16:54 → CANRESERV 17:17 → ENRESERV 01-14 18:05 → C.4E 01-14 19:45
PROVIDERS: ADMIT Hospitalist; ATTEND Hospitalist
DX: I50.33 Acute on chronic diastolic (congestive) heart failure (principal); G93.40 Encephalopathy, unspecified; J96.02 Acute respiratory failure with hypercapnia; E87.2 Acidosis; F20.0 Paranoid schizophrenia; Z68.41 Body mass index [BMI] 40.0-44.9, adult; E11.9 Type 2 diabetes mellitus without complications; G40.909 Epilepsy, unspecified, not intractable, without status epilepticus; I11.0 Hypertensive heart disease with heart failure; F31.9 Bipolar disorder, unspecified; K04.7 Periapical abscess without sinus; E66.01 Morbid (severe) obesity due to excess calories; Z79.4 Long term (current) use of insulin; Z79.82 Long term (current) use of aspirin; Z79.899 Other long term (current) drug therapy; Z83.3 Family history of diabetes mellitus; Z91.19 Patient's noncompliance with other medical treatment and regimen

== ENCOUNTER → 2017-02-03 | Outpatient (CLI) | payer BC ==
[~2017-02-03] MED LIST changes: +ASPI81TA28 PO; -MCRK20 PO; +POTA10CA28 PO
--- NOTE | 2017-02-03 15:57 | DIAGNOSTIC IMAGING REPORT ---
CHEST 2 VIEWS ROUTINE CLINICAL HISTORY: Heart failure. COMPARISON STUDY: Chest radiograph January 11, 2017. FINDINGS: There is no pneumothorax or pleural effusion. Marked cardiomegaly is unchanged. There is pulmonary vascular congestion without evidence for overt pulmonary edema. This has improved since exam of January 11, 2017. There is no lobar consolidation. IMPRESSION: 1. Pulmonary vascular congestion without overt pulmonary edema. This has improved since study of January 11, 2017. 2. No change in marked enlargement of the cardiac silhouette. Electronically signed by: Santana Lundy M.D. 02/03/2017 3:56 PM Dictated Date/Time: 02/03/2017 3:52 PM
== END | disposition home or self-care (01) ==
LOC: C.RAD1850 14:47
PROVIDERS: ATTEND Family Medicine
DX: I50.23 Acute on chronic systolic (congestive) heart failure (principal); E87.6 Hypokalemia; I95.2 Hypotension due to drugs; E72.20 Disorder of urea cycle metabolism, unspecified; R60.0 Localized edema

== ENCOUNTER → 2017-05-12 | Outpatient (CLI) | payer BC ==
--- NOTE | 2017-05-12 17:11 | DIAGNOSTIC IMAGING REPORT ---
CHEST 2 VIEWS ROUTINE HISTORY: DILATED CARDIOMYOPATHY COMPARISON: Chest 02/03/2017. FINDINGS: No pneumothorax. No pleural effusions. Severe cardiomegaly persists. Mild interstitial pulmonary edema has progressed. IMPRESSION: 1. Slight progression of the mild interstitial pulmonary edema. 2. Severe cardiomegaly is again noted. Electronically signed by: Alfonso Perez M.D. 05/12/2017 5:10 PM Dictated Date/Time: 05/12/2017 5:06 PM
== END | disposition home or self-care (01) ==
LOC: C.RAD1850 16:47
PROVIDERS: ATTEND Family Medicine
DX: I42.0 Dilated cardiomyopathy (principal); I50.33 Acute on chronic diastolic (congestive) heart failure; J81.1 Chronic pulmonary edema; E11.9 Type 2 diabetes mellitus without complications

== ENCOUNTER 2017-10-01 08:43 | Inpatient (IN) | payer BC, OTHER ==
[2017-10-01] VITALS (10 sets, daily range): BP systolic 105–133; BP diastolic 48–95; PULSE 82–98; TEMP 36.5; O2SAT 93–98; BMI 35.5
[~2017-10-01] VITALS: Ht 160 cm; Wt 100.6 kg
[~2017-10-01 08:43] MED LIST changes: -FRS/40 PO; -METO5TAB25 PO
[2017-10-01] MEDS ORDERED: SODIUM CHLORIDE 0.9% 500ML 500 ML IV STA ×2 (08:57→09:36)
[2017-10-01 09:12] LABS: BASO % 0.1 %; BASO ABS # 0.01 K/uL (0-0.2); HEMATOCRIT 45.3 % (37-47); HEMOGLOBIN 12.2 g/dL (12.0-16.0); IG# 0.02 K/uL (0.00-0.02); LYMPH % 7.4 %; LYMPH ABS # 0.53 K/uL (1.2-3.4); MEAN CELL VOLUME 99.1 fL (80-100); MEAN CORPUSCULAR HEMOGLOBIN 26.7 pg (25-34); MEAN CORPUSCULAR HGB CONC 26.9 g/dl (32-36); MEAN PLATELET VOLUME 11.3 fL (7.4-10.4); MONO % 6.4 %; MONO ABS # 0.46 K/uL (0.11-0.59); NEUT % 85.8 %; NEUT ABS # 6.13 K/uL (1.4-6.5); PLATELET COUNT 157 K/uL (130-400); RED CELL DISTRIBUTION WIDTH CV 19.2 % (11.5-14.5); RED CELL DISTRIBUTION WIDTH SD 69.7 fL (36.4-46.3); WHITE BLOOD COUNT 7.15 K/uL (4.8-10.8)
--- NOTE | 2017-10-01 09:17 | DIAGNOSTIC IMAGING REPORT ---
SINGLE VIEW CHEST CLINICAL HISTORY: Change in mental status. FINDINGS: An AP, portable, upright chest radiograph is compared to study dated 05/12/2017. The examination is degraded by portable technique and apical lordotic positioning. The heart is markedly enlarged. There is pulmonary vascular congestion. No airspace consolidation or large pleural effusion is identified. No pneumothorax is seen. The skeletal structures are osteopenic. The bony thorax is grossly intact. IMPRESSION: Cardiomegaly with mild pulmonary vascular congestion. Electronically signed by: Ke Ojeda M.D. 10/01/2017 9:16 AM Dictated Date/Time: 10/01/2017 9:14 AM
[2017-10-01 09:33] LABS: ALBUMIN 3.4 gm/dl (3.4-5.0); CALCIUM 9.2 mg/dl (8.5-10.1); CREATININE 2.07 mg/dl (0.60-1.20); POTASSIUM 4.1 mmol/L (3.5-5.1); TOTAL PROTEIN 7.4 gm/dl (6.4-8.2)
[2017-10-01] MEDS ORDERED: INSULIN IV INFUSION PROTOCOL STA (09:35)
[2017-10-01] MEDS ORDERED: NovoLIN-R INSULIN PER UNIT CHARGE SC STA (09:35)
[2017-10-01] MEDS ORDERED: SODIUM CHLORIDE 0.9% 1000ML 1,000 ML IV STA (09:36)
[2017-10-01] MEDS ORDERED: POTA10CA28 PO (09:41)
[2017-10-01] MEDS ORDERED: LSX80 PO (09:41)
[2017-10-01] MEDS ORDERED: METO5TAB25 PO (09:41)
[2017-10-01] MEDS ORDERED: POTA10TA PO (09:41)
[2017-10-01] MEDS ORDERED: LSX40 PO (09:41)
[2017-10-01] MEDS ORDERED: GLUCOSE 10 TABS/TUBE PO PRN (09:45)
[2017-10-01] MEDS ORDERED: GLUCOSE 40% GEL 15 GM TUBE PO PRN (09:45)
[2017-10-01] MEDS ORDERED: DKA GOAL RANGE 150-250 mg/dl 1 EA ONE (09:45)
[2017-10-01] MEDS ORDERED: GLUCAGON FOR INJ 1 MG VIAL SQ PRN (09:45)
[2017-10-01] MEDS ORDERED: DEXTROSE 50% 50 ML SYR IV PRN (09:45)
[2017-10-01] MEDS ORDERED: SEVERE STRESS LEVEL ONE (09:45)
[2017-10-01] MEDS ORDERED: NovoLIN R BOLUS FROM BAG IV ONE (10:00)
[2017-10-01] MEDS ORDERED: INSULIN REGULAR 250 UNITS in SODIUM CHLORIDE 0.9% 250ML 250 ML IV SCH (10:00)
--- NOTE | 2017-10-01 10:04 | EMERGENCY ROOM VISIT NOTE ---
History Report prepared by Jada: Emmie Martinez Under the Supervision of: Dr. Ana Crain M.D. First contact with patient: 09:28 Chief Complaint: HYPERGLYCEMIA Stated Complaint: AMS/HYPERGLYCEMIA Nursing Triage Summary: PT HERE WITH SOME CONFUSION AT HOME PER . PTS BSG HAS BEEN READING HIGH. PT DENIES ANY PAIN OR OTHER PROBLEMS. PT ALSO HAVING JERKING MOVEMENTS IN RIGHT ARM THAT SHE CANNOT CONTROL, THIS IS NEW. PT WOKE UP WITH THIS History of Present Illness The patient is a 62 year old female who presents to the Emergency Room with complaints of constant hyperglycemia. Per , at 4 am the patient started to be shaky and have difficulty walking. He reports the patient has been confused for the past couple days. The patient reports her blood sugar levels have been high recently. She states she stopped taking all of her medications 3 weeks ago because she was "tired of it". She reports she stopped taking her diabetes medications as well as her high blood pressure medications. reports the patient has been eating and drinking normally. The patient states her abdomen is bloated and hard. She states he last bowel movement was this morning. The patient reports a cough which is chronic for her. Source of History: patient Onset: 4 am Position: other (generalized) Quality: other Timing: constant Modifying Factors (Worsening): other (none) Modifying Factors (Relieving): other (none) Review of Systems See HPI for pertinent positives & negatives. A total of 10 systems reviewed and were otherwise negative. Past Medical & Surgical Medical Problems: (1) ACUTE RENAL FAILURE NOS (2) Acute respiratory failure with hypoxia and hypercapnia (3) Altered mental status (4) BIPOL I DIS, SING MANIC EPIS, SEVERE, SPEC W PSYCHOTIC BEHAV (5) CONGESTIVE HEART FAILURE NOS (6) DIAB ROSA WO COMPL, TYPE II OR UNSPEC TYPE, NOT UNCNTRLD (7) HONK, new right arm weakness possible need to rule out CVA (8) Hyponatremia (9) Lethargy (10) [place] toxicity (11) Metabolic alkalosis (12) Seizure-like activity (13) Seizure-like activity (14) Weakness Family History FH: HTN (hypertension) FH: diabetes mellitus Heart disease Social History Smoking Status: Never Smoker Alcohol Use: none Drug Use: none Marital Status: Housing Status: lives with family Occupation Status: retired Current/Historical Medications Scheduled Benzonatate (Tessalon Perles), 200 MG PO Q8 Cholecalciferol (Vitamin D3), 1,000 INTER.UNIT PO BID Furosemide (Furosemide), 40 MG PO QPM Furosemide (Furosemide), 80 MG PO QAM Haloperidol Decanoate (Haldol Decanoate 100), 1 ML IM MONTHLY Insulin Aspart (Novolog), 0 SQ UD Insulin Glargine (Lantus Solostar), 14 UNITS SC AMPM Ipratropium-Albuterol (Combivent Respimat), 1 PUFFS INH QID Lactulose (Lactulose), 30 GM PO TID Levetiractam (Levetiracetam), 500 MG PO BID Lisinopril (Lisinopril), 5 MG PO QAM [place] Carbonate ([place] Carbonate), 300 MG PO QAM [place] Carbonate ([place] Carbonate ER), 300 MG PO HS Magnesium Oxide (Mag-Ox), 400 MG PO BID Metolazone (Zaroxolyn), 5 MG PO DAILY Nystatin (Nystop), 1 APPLN TOP BID Potassium Chloride (Micro-K Ext Rel), 160 MEQ PO QAM Potassium Chloride (K-Tabs), 40 MEQ PO DAILY@1200 Potassium Chloride (Micro-K Ext Rel), 80 MEQ PO QPM Scheduled PRN Polyethylene (Miralax), 17 GM PO DAILY PRN for Constipation Allergies Coded Allergies: Penicillins (Unverified Allergy, Unknown, unknown, 10/01/17) Physical Exam Vital Signs Date Time Temp Pulse Resp B/P (MAP) Pulse Ox O2 Delivery O2 Flow Rate FiO2 10/01/17 10:48 97 24 112/76 96 Nasal Cannula 3.0 10/01/17 10:13 95 Nasal Cannula 3.0 10/01/17 09:53 98 22 125/77 95 Nasal Cannula 3.0 10/01/17 09:18 96 Nasal Cannula 3.0 10/01/17 09:08 36.9 97 20 131/74 95 Nasal Cannula 3.0 10/01/17 08:58 97 Physical Exam Vital signs reviewed. General: Chronically ill-appearing female, in no significant distress. HEENT: No scleral icterus, PERRLA, neck supple. Atraumatic.Dry MM. Cardiovascular: Tachycardic rate and regular rhythm, no extra sounds. Pulmonary: Clear to auscultation bilaterally, normal work of breathing. Abdomen: Distended and tympanitic abdomen, non tender to palpation. Musculoskeletal: Atraumatic, no peripheral edema. Neurologic: Patient awake alert and oriented x 3, speech is difficult to interpret. Full strength in all 4 extremities. Cranial nerves 2 through 12 grossly intact. Skin: Warm, dry, no rash Medical Decision & Procedures ER Provider Diagnostic Interpretation: Radiology results as stated below per my review and radiologist interpretation: SINGLE VIEW CHEST FINDINGS: An AP, portable, upright chest radiograph is compared to study dated 05/12/2017. The examination is degraded by portable technique and apical lordotic positioning. The heart is markedly enlarged. There is pulmonary vascular congestion. No airspace consolidation or large pleural effusion is identified. No pneumothorax is seen. The skeletal structures are osteopenic. The bony thorax is grossly intact. IMPRESSION: Cardiomegaly with mild pulmonary vascular congestion. Electronically signed by: Ke Ojeda M.D. ABDOMEN 2 VIEWS FINDINGS: Supine and decubitus abdominal radiographs are compared to study dated 02/03/2016. Correlation is made with abdominal CT dated 10/29/2007. There is a nonobstructed abdominal bowel gas pattern noting moderate colonic fecal retention. No evidence of intraperitoneal free air is seen on the decubitus images. Pancreatic parenchymal calcifications suggest chronic pancreatitis. There is no radiographic evidence of nephrolithiasis. The skeletal structures are osteopenic. The bony structures are grossly intact. IMPRESSION: 1. Nonobstructed abdominal bowel gas pattern noting moderate colonic fecal retention. 2. Pancreatic parenchymal calcifications are typical for chronic pancreatitis. Electronically signed by: Ke Ojeda M.D. Laboratory Results 10/01/17 08:50 Red Blood Count 4.57, Mean Corpuscular Volume 99.1, Mean Corpuscular Hemoglobin 26.7, Mean Corpuscular Hemoglobin Concent 26.9, Mean Platelet Volume 11.3, Neutrophils (%) (Auto) 85.8, Lymphocytes (%) (Auto) 7.4, Monocytes (%) (Auto) 6.4, Eosinophils (%) (Auto) 0.0, Basophils (%) (Auto) 0.1, Neutrophils # (Auto) 6.13, Lymphocytes # (Auto) 0.53, Monocytes # (Auto) 0.46, Eosinophils # (Auto) 0.00, Basophils # (Auto) 0.01 Test 4/21/18 08:50 10/01/17 08:57 10/01/17 08:58 10/01/17 09:04 White Blood Count 7.15 K/uL (4.8-10.8) Red Blood Count 4.57 M/uL (4.2-5.4) Hemoglobin 12.2 g/dL (12.0-16.0) Hematocrit 45.3 % (37-47) Mean Corpuscular Volume 99.1 fL (80-100) Mean Corpuscular Hemoglobin 26.7 pg (25-34) Mean Corpuscular Hemoglobin Concent 26.9 g/dl (32-36) Platelet Count 157 K/uL (130-400) Mean Platelet Volume 11.3 fL (7.4-10.4) Neutrophils (%) (Auto) 85.8 % Lymphocytes (%) (Auto) 7.4 % Monocytes (%) (Auto) 6.4 % Eosinophils (%) (Auto) 0.0 % Basophils (%) (Auto) 0.1 % Neutrophils # (Auto) 6.13 K/uL (1.4-6.5) Lymphocytes # (Auto) 0.53 K/uL (1.2-3.4) Monocytes # (Auto) 0.46 K/uL (0.11-0.59) Eosinophils # (Auto) 0.00 K/uL (0-0.5) Basophils # (Auto) 0.01 K/uL (0-0.2) RDW Standard Deviation 69.7 fL (36.4-46.3) RDW Coefficient of Variation 19.2 % (11.5-14.5) Immature Granulocyte % (Auto) 0.3 % Immature Granulocyte # (Auto) 0.02 K/uL (0.00-0.02) Prothrombin Time 11.4 SECONDS (9.0-12.0) Prothromb Time International Ratio 1.1 (0.9-1.1) Est Creatinine Clear Calc Drug Dose 30.2 ml/min Total Bilirubin 0.7 mg/dl (0.2-1) Aspartate Amino Transf (AST/SGOT) 17 U/L (15-37) Alanine Aminotransferase (ALT/SGPT) 23 U/L (12-78) Alkaline Phosphatase 192 U/L (45-117) Total Protein 7.4 gm/dl (6.4-8.2) Albumin 3.4 gm/dl (3.4-5.0) Globulin 4.0 gm/dl (2.5-4.0) Albumin/Globulin Ratio 0.9 (0.9-2) Bedside Lactic Acid Venous 2.18 mmol/L (0.90-1.70) Bedside Glucose > 600 mg/dl (70-90) Urine Color YELLOW Urine Appearance CLEAR (CLEAR) Urine pH 7.0 (4.5-7.5) Urine Specific [place] 1.030 (1.000-1.030) Urine Protein NEG (NEG) Urine Glucose (UA) 3+ (NEG) Urine Ketones TRACE (NEG) Urine Occult Blood 1+ (NEG) Urine Nitrite NEG (NEG) Urine Bilirubin NEG (NEG) Urine Urobilinogen NEG (NEG) Urine Leukocyte Esterase NEG (NEG) Urine WBC (Auto) /hpf (0-5) Urine RBC (Auto) /hpf (0-4) Urine Hyaline Casts (Auto) /lpf (0-5) Urine Epithelial Cells (Auto) /lpf (0-5) Urine Bacteria (Auto) (NEG) Urine RBC 0-4 /hpf (0-4) Urine WBC 1-5 /hpf (0-5) Urine Epithelial Cells 10-20 /lpf (0-5) Urine Bacteria NEG (NEG) Test 10/01/17 09:17 10/01/17 11:40 10/01/17 12:15 Arterial Blood pH 7.29 (7.35-7.45) Arterial Blood Partial Pressure CO2 77 mmHg (35-46) Arterial Blood Partial Pressure O2 79 mm/Hg (80-95) Arterial Blood HCO3 36 mmol/L (19-24) Arterial Blood Oxygen Saturation 93.0 % (90-95) Arterial Blood Base Excess 6.6 mEq/L (-9-1.8) Arterial Blood Gas Delivery 3L [place] Test POS (POS) Beta-Hydroxybutyric Acid 11.20 mg/dL (0.2-2.81) Creatine Kinase MB Ratio (0-3.0) Laboratory results per my review. Medications Administered Medications (Trade) Dose Ordered Sig/Nanette Route Start Time Stop Time Status Last Admin Dose Admin Sodium Chloride 500 ml @ 999 mls/hr Q31M STAT IV 10/01/17 08:57 10/01/17 09:27 DC 10/01/17 08:57 999 MLS/HR Insulin Human Regular (novoLIN-R U-100 PER UNIT) 10 units NOW STAT SC 10/01/17 09:35 10/01/17 09:36 DC 10/01/17 10:10 10 UNITS Sodium Chloride 500 ml @ 999 mls/hr Q31M STAT IV 10/01/17 09:36 10/01/17 10:06 DC 10/01/17 09:36 999 MLS/HR Sodium Chloride 1,000 ml @ 200 mls/hr Q5H STAT IV 10/01/17 09:36 10/01/17 14:35 DC 10/01/17 09:36 200 MLS/HR Insulin Human Regular 250 units/ Sodium Chloride 252.5 ml @ 0 mls/hr Q24H IV 10/01/17 10:00 10/02/17 09:59 10/01/17 10:00 3.4 MLS/HR Insulin Human Regular (NovoLIN R BOLUS FROM BAG) 3.5 unit ONE ONCE IV 10/01/17 10:00 10/01/17 10:01 DC 10/01/17 10:00 3.5 UNIT ECG Per My Interpretation Indication: other (hyperglycemia) Rate (beats per minute): 100 Rhythm: normal sinus Findings: other (poor quality baseline for interpretation , rightward axis, no significant T-wave inversions in inferior leads prolonged QTC 482 ) ED Course 0857: Ordered Sodium Chloride 5000 ml @ 999 mls/hr IV 0933: Past medical records reviewed. The patient was evaluated in room B2. A complete history and physical examination was performed. 0935: Ordered Insulin Human Regular 10 units SC, Insulin Human Regular 1 ea N/ A. 0936: Ordered Sodium Chloride 1000 ml @ 200 mls/hr IV, Sodium Chloride 500 ml @ 999 mls/hr IV. 0945: Ordered Glucagon 1 mg SQ, Dextrose IV, Glucose 4-8 tabets PO, Glucose 15- 30 gm PO. 1000: Ordered Insulin Human Regular 3.5 units IV, Insulin Human Regular 250 units/Sodium Chloride 252.5 ml @ 0 mls/hr. 1119: I reviewed the patient's case with Dr. Amin. He is requesting I consult the linen manager. 1121: I reviewed the patient's case with Dr. Martinez- ICU. He said the patient does not need to necessarily be admitted to the ICU. 1139: Dr. Amin will evaluate the patient for further management. 1142: I updated the patient on the treatment plan. Medical Decision Differential diagnosis: Etiologies such as DKA, metabolic, infection, hypo/hyperglycemia, electrolyte abnormalities, cardiac sources, intracerebral event, toxicologic, neurologic, as well as others were entertained. This patient was evaluated and appeared to be in no significant distress. IV access was obtained and laboratory work was drawn. Patient was placed on the classroom monitor and found to be in no significant distress. Patient was hydrated with normal saline solution. She is found to have a glucose greater than 1200. The patient was awake and speaking. She does have a thick accent as well as a dry mouth and is difficult to interpret however her is not having difficulty. Chest x-ray and abdominal x-ray revealed no evidence of acute pathology. EKG reveals a sinus rhythm without evidence of acute ischemia or dysrhythmia. She did stop her medicines about 3 weeks ago which gives an explanation for her profound hyperglycemia. I did discuss the case with the hospitalist service, Dr. Obrien who has requested consultation with the ICU, Dr. Ma. Insulin drip has been initiated in the emergency department. Patient and have been made aware of the plan for admission and agree. Medication Reconcilliation Current Medication List: was personally reviewed by me Blood Pressure Screening Patient's blood pressure: Normal blood pressure Consults Time Called: 1110 Consulting Physician: Dr. Amin Returned Call: [phone] I reviewed the patient's case with Dr. Amin. He is requesting I consult the linen manager. Additional Consults: Time Called: 1120 Consulted Physician: Dr. Martinez- ICU Returned Call: [phone] Additional Comments: I reviewed the patient's case with Dr. Sadia GALLEGO. He said the patient does not need to necessarily be admitted to the ICU. Impression Primary Impression: Hyperglycemia without ketosis Additional Impressions: Hyperosmolality Acute renal failure (ARF) Scribe Attestation The scribe's documentation has been prepared under my direction and personally reviewed by me in its entirety. I confirm that the note above accurately reflects all work, treatment, procedures, and medical decision making performed by me. Departure Information Dispostion Being Evaluated By Hospitalist Referrals Bin Patel M.D. (PCP) Patient Instructions My [facility] Problem Qualifiers
--- NOTE | 2017-10-01 11:55 | DIAGNOSTIC IMAGING REPORT ---
ABDOMEN 2 VIEWS CLINICAL HISTORY: Abdominal distention. FINDINGS: Supine and decubitus abdominal radiographs are compared to study dated 02/03/2016. Correlation is made with abdominal CT dated 10/29/2007. There is a nonobstructed abdominal bowel gas pattern noting moderate colonic fecal retention. No evidence of intraperitoneal free air is seen on the decubitus images. Pancreatic parenchymal calcifications suggest chronic pancreatitis. There is no radiographic evidence of nephrolithiasis. The skeletal structures are osteopenic. The bony structures are grossly intact. IMPRESSION: 1. Nonobstructed abdominal bowel gas pattern noting moderate colonic fecal retention. 2. Pancreatic parenchymal calcifications are typical for chronic pancreatitis. Electronically signed by: Ke Ojeda M.D. 10/01/2017 11:54 AM Dictated Date/Time: 10/01/2017 11:51 AM
[2017-10-01] MEDS ORDERED: ONDANSETRON INJ 2 MG/ML 2 ML VIAL IV PRN (12:15)
[2017-10-01] MEDS ORDERED: ACETAMINOPHEN 325 MG TAB PO PRN (12:15)
[2017-10-01] MEDS ORDERED: HHS GOAL RANGE 250-350 mg/dl ONE (12:15)
[2017-10-01] MEDS ORDERED: MODERATE STRESS LEVEL ONE (12:15)
[2017-10-01] MEDS ORDERED: ICU PROTOCOL FOR HYPERGLYCEMIA PRN (12:15)
[2017-10-01] MEDS ORDERED: PHARMACY GLYCEMIC MGMT CONSULT PRN (12:15)
[2017-10-01] MEDS ORDERED: INSULIN PROTOCOL GOAL RANGE ONE (12:15)
[2017-10-01] MEDS ORDERED: PHARMACIST DISCHARGE MED REC CONSULT PRN (12:45)
--- NOTE | 2017-10-01 12:45 | History and Physical ---
History & Physical Date of Service Oct 01, 2017. History & Physical HONK, new right arm weakness possible need to rule out CVA, [id number]
[2017-10-01 12:47] LABS: INR 1.1 (0.9-1.1)
[2017-10-01] MEDS ORDERED: ASPIRIN 81 MG CHEW PO STA (12:53)
[2017-10-01] MEDS: INSULIN ASPART 100 UNITS/ML 3 ML PEN SC SCH ×3 (13:00→21:00)
[2017-10-01] MEDS ORDERED: INSULIN ASPART 100 UNITS/ML 3 ML PEN SC SCH ×2 (13:00)
--- NOTE | 2017-10-01 13:14 | Pharmacy Progress Note ---
Glycemic Control Intl Consult Date of Service Oct 01, 2017. Scope Glycemic Pharmacist consulted by Dr Obrien on 10/01/17 for glycemic control and to write orders per [facility] inpatient glycemic control protocol Objective Weight (Kilograms): 91.000 Accuchecks BSG (last 24hrs): Test 10/01/17 08:49 10/01/17 08:50 10/01/17 08:58 10/01/17 11:40 Bedside Glucose > 600 mg/dl (70-90) > 600 mg/dl (70-90) Random Glucose 1262 mg/dl (70-99) 1082 mg/dl (70-99) Laboratory Data (last 24hrs) Test 10/01/17 08:50 10/01/17 12:15 Anion Gap 8.0 mmol/L BUN/Creatinine Ratio 17.8 Blood Urea Nitrogen 37 mg/dl Creatinine 2.07 mg/dl Potassium Level 4.1 mmol/L Sodium Level 128 mmol/L White Blood Count 7.15 K/uL Red Blood Count 4.57 M/uL Hemoglobin 12.2 g/dL Hematocrit 45.3 % Mean Corpuscular Volume 99.1 fL Mean Corpuscular Hemoglobin 26.7 pg Mean Corpuscular Hemoglobin Concent 26.9 g/dl Platelet Count 157 K/uL Mean Platelet Volume 11.3 fL Neutrophils (%) (Auto) 85.8 % Lymphocytes (%) (Auto) 7.4 % Monocytes (%) (Auto) 6.4 % Eosinophils (%) (Auto) 0.0 % Basophils (%) (Auto) 0.1 % Neutrophils # (Auto) 6.13 K/uL Lymphocytes # (Auto) 0.53 K/uL Monocytes # (Auto) 0.46 K/uL Eosinophils # (Auto) 0.00 K/uL Basophils # (Auto) 0.01 K/uL HbA1c 7.4% on 11/30/16 {outdated} Recent Pertinent Medications Outpatient Anti-diabetic Regimen: * Lantus 14 units SQ BID * NovoLog 10 units SQ TID PRN BSG >180 mg/dl Assessment & Plan ASSESSMENT: * 62yo T2DM female known to pharmacy from previous admissions glycemic consults , currently admitted with AMS(r/o stroke) & hyperglycemia/HHS * Pt initiated on IV insulin infusion in the ER per protocol. Pt ordered adequate hydration (needs 6-10 liters over the next 24hrs for HHS if possible). * Will slowly decreased BSG (~50mg/dl per hour) over the next 24hrs to ~ 200mg/ dl and then transition to SQ basal bolus insulin regimen when patient meets criteria * HbA1c is outdated- will re-order but value may be slightly artificially inflated secondary to not taking meds/sustained hyperglycemia x 3 weeks. PLAN FOR INPATIENT GLYCEMIC CONTROL: * Continue IV insulin infusion per [facility] protocol * Goal Range 250 - 350 mg/dl * In the critical care setting, continuous IV insulin infusion has been shown to be the best method for achieving glycemic targets. * HbA1c with AM labs * Transition to SQ basal bolus insulin regimen when criteria met * Please note that the plan above was derived based on current level of insulin resistance and hospital stress. These recommendations are appropriate for inpatient admission only. Plan of care upon discharge will need to be reassessed to avoid potential outpatient hypo/hyperglycemia. Thank you.
[2017-10-01] MEDS ORDERED: NSS + 20MEQ KCL 1000ML 1,000 ML IV SCH (13:45)
--- NOTE | 2017-10-01 13:50 | HISTORY & PHYSICAL EXAMINATION ---
DATE OF ADMISSION: 10/01/2017 This is a level 3 inpatient admission, 40 minutes. CHIEF COMPLAINT: Severe hyperglycemic and right arm weakness. HISTORY OF PRESENT ILLNESS: The patient is a 62-year-old white female with a significant past medical history of acute renal failure, acute hypoxic and hypercapnic respiratory failure, mental status changes, bipolar, history of congestive heart failure, diabetic type 2, lithium intoxication, seizure disorder, came into the hospital Emergency Department because of the above chief complaint. Per report, which was obtained from the patient and her in bedside. report the patient has persistent hyperglycemia for recent couple days, she was started shaky and difficulty walking, associated with some confused. She is supposed to take medications , but stop by herself 3 weeks ago, the patient feels tired always. She told me that "Brando told her to stop all the medications"; therefore she stopped all the medicines 3 weeks ago, including diabetic medication. She has been eating and drinking normally. She has been having chronic cough which is not new for the patient. and more, reported the patient was able to use right arm last night, but in waste examiner around 6:00 a.m., the patient not able to use right arm which was weak and less strength. In the Emergency Room, the patient was found to be in severe hyperglycemic, blood glucose was up to 1082. The patient was diagnosed as HONK, hyperglycemic hyperosmolality nonketoacidosis, starting insulin drip and IV fluid. When I see the patient, I know her before. She was pleasant, conversational, but have decreased cognitions, was trying to talk to us; however, has mild slurry speeches and difficult to collect words. Otherwise, she is pleasant, denied fever or chills, denies skin rashes, denied cough, sputum, shortness of breath is in her baseline. Denied chest pain, palpitations, right arm weakness like I mentioned is new, denied bilateral lower extremity weakness. Denied nausea, vomiting, abdominal pain, diarrhea, constipation, patient's reported has urinary incontinence; however, this is not new. PAST MEDICAL HISTORY: Like I mentioned in the above, which includes acute renal failure, bipolar, CHF, diabetic type 2, hypertension, hypercapnic respiratory failure, has required CPAP machine. ALLERGIES: ALLERGIC TO PENICILLIN. SOCIAL HISTORY: Never smoked. Denied alcohol abuse disorder, denied illicit drug abuse. The patient is with . was in the bedside. FAMILY HISTORY: Has hypertension, diabetes, and heart disease. MEDICATIONS: Currently at home; however, she was not taking for 3-week include Lasix 40 mg p.o. q.p.m. and 80 mg p.o. q.a.m., insulin NovoLog use as directed, insulin Lantus 40 units subQ a.m. and p.m., Combivent 1 puff q.i.d., lisinopril 5 mg p.o. q.a.m., lithium 300 mg p.o. at bedtime, mag oxide 400 mg p.o. b.i.d., metolazone 5 mg p.o. daily, Nystatin powder topical use as needed, MiraLax 17 g p.o. as needed for constipation, potassium chloride 10 mEq tablets 80 mEq p.o. q.p.m., potassium chloride 160 mEq p.o. q.a.m., vitamin D3 1000 international units p.o. b.i.d., Haldol injection as needed, lithium carbonate 300 mg p.o. q.a.m., Tessalon Perles 200 mg p.o. q. 8 hours as needed, lactulose 30 mg p.o. t.i.d., Keppra 500 mg p.o. b.i.d. PHYSICAL EXAMINATION: VITAL SIGNS: Temperature is 36.9, pulse 91, respiration rate 24 coming down to 20, blood pressure 112/76, pulse ox was 96% on 3 L. GENERAL: The patient is an -[place] female, pleasant as usual, conversational, but has some difficulty to find her speech, find her words. Awake, alert and orientated. HEAD: Normocephalic. EYES: Pupils equal, round responds to light. EARS: Ear was normal. NOSE: Normal. NECK: Supple. Dry mucous membranes. Thyroid, no enlargement. LUNGS: Bilateral lungs, decreased breathing sounds. There was some wheezing sporadically. No rhonchi, no crackles. HEART: Regular rhythm S1, S2, has no murmurs. ABDOMEN: Soft, nontender. Bowel sound was positive. EXTREMITIES: Bilateral lower extremities: 1+ red swelling. Homans sign was negative. Calf was nontender and there were no skin rashes or open wounds. NEUROLOGIC: Cranial nerves II-XII was intact; however, has some difficulty in finding words. Right upper arm, able to move but much weaker. Muscle strength was 4+/5. The patient's report has same problem before, but was normalized. This is new. LABORATORY STUDIES: WBC 7.1, hemoglobin 12, platelets 157. ABG shows a pH of 7.2, pCO2 77, pO2 79, bicarbonate 36. Sodium 128, potassium 4.1, chloride 85, BUN 37, creatinine 2.0. Blood glucose 1200. Calcium 9.2, alkaline phosphate 192. Beta hydroxybutyric acid 25.36. UA shows trace ketones, otherwise no UTI. [place] is pending. IMAGING STUDIES: Abdominal x-ray studies, there was nonobstructive abdominal bowel patterns noting moderate colonic fecal retention. There were pancreatic parenchymal calcifications which is typical for chronic pancreatitis. Chest x-ray: Cardiomegaly with mild pulmonary vascular congestion. EKG studies which shows normal sinus rhythm, biatrial enlargement. There was mild ST-T atypical changes. No obvious ST-T wave changes. Mild prolonged QT at 482 microseconds. ASSESSMENT AND PLAN: A 62-year-old -Y[place]i female with the conditions as below: 1. Severe hyperglycemia with history of type 2 diabetic, currently has hyperglycemic hyperosmolality and nonketoacidotic. 2. Acute renal failure with history of acute renal failure with elevated creatinine levels which was 2.0 currently, compared to recent lab was 0.8. 3. Respiratory acidosis with pH 7.28, pCO2 77 with history of chronic obstructive pulmonary disease and chronic respiratory failure. 4. Hyponatremia with sodium 128, possible from pseudohyponatremia secondary to hyperglycemia. 5. Possible acute CVA with new right arm weakness and difficult finding words and mild slurry speeches. Need to rule out CVA. 6. History of acute kidney failure, was on lithium for bipolar, is checking lithium levels to rule out lithium toxicity 7. History of bipolar. 8. History of seizure disorder. 9 hx of bipolar on [place] PLAN: We will have ICU admission because of the patient's complex medical comorbidities and currently has HONK, and possible acute CVA. Continue insulin drip, pharmacy consultation, check electrolytes, follow up renal functions, continue IV fluid 200 mL per hour, follow up lithium levels, follow up renal functions, we will give DuoNeb nebulizer treatment, I do not believe has CHF or COPD exacerbation for now. Because of history of CHF and COPD, we will watch for respiratory conditions and do not want to have fluid overload, will hold renal offensive medications including lisinopril and lithium, we will watch renal functions. The patient needs to rule out CVA with right arm weakness and mild slurry speeches. For right arm weakness, it was normal in last night. It was identified possible in 6 a.m. this morning. This is out of TPA window. Discussed with about this possible cerebrovascular accident. reported she was having the same history before, was totally resolved, was thought possible because of seizure, will have neuro consult, getting in a CVA protocol to check NIH stroke scales, it will be difficult because the patient has bipolar histories. GI and DVT prophylaxis is covered. We will keep the patient n.p.o. for now. Discussed with the patient code status. wants the patient to be in DNR. Discussed with the patient as well. The patient feels she is ready to see Brando. SARIA
[2017-10-01] MEDS: LACTULOSE SYRUP 30 GM/45 ML UDP PO SCH ×2 (14:51→21:31)
[2017-10-01] MEDS: BENZONATATE 100MG CAP PO SCH ×2 (14:51→21:34)
--- NOTE | 2017-10-01 15:05 | Critical Care Consultation ---
Critical Care Consultation Date of Consultation: Oct 01, 2017. Attending Physician: Pavan Obrien MD, PhD Reason for Consultation: [facility] History of Present Illness Dear Dr. Obrien: Thank you for your kind referral of Mrs. Barone to critical care service. This is 62-year-old female noncompliant with her medication, history of diabetes , hypertension, congestive heart failure with cardiomyopathy and cardiomegaly, chronic kidney disease where she used to be on dialysis in the past but has not been on it for the past 8 years according to her. She has been followed by Dr. Gonzalez from nephrology., seizure disorder, bipolar disorder who presented to the hospital after she was feeling weak in her right upper extremity according to her. She was unable to move her forearm or hand volumetry. She denies any other weakness, she did not lose her sensation also in the hand or in the upper extremity, she denies any chest pain or shortness of breath, no lack of appetite and denies any abdominal pain no nausea or vomiting reported no change in bowel movements or urine habits. The patient had multiple admissions to the hospital due to similar presentation where she was found to have hyperglycemia. She did not have DKA and her bicarb has been persistently elevated. The patient does have Lasix as part of her regimen but she has not been taking it for the past 3 weeks. When I interviewed the patient, she denies any symptoms except concerning for her upper extremity movement mainly in the hand and forearm. It does not seem to affect her shoulder girdle or her elbow. No weakness anywhere else at this point. She denies any increased swelling in her lower extremities although she appeared to be edematous. No shortness of breath reported no chest pain. No dizziness palpitation or loss of consciousness. No visual disturbances dysphagia or slurred speech. Workup included chest x-ray which showed chronic cardiomegaly, mild pulmonary vascular congestion and no infiltrate. The rest of her labs has been reviewed personally. Family History FH: HTN (hypertension) FH: diabetes mellitus Heart disease Social History Smoking Status: Never Smoker Drug Use: none Marital Status: Housing Status: lives with family Occupation Status: retired Allergies Coded Allergies: Penicillins (Unverified Allergy, Unknown, unknown, 10/01/17) Home Medications Scheduled Benzonatate (Tessalon Perles), 200 MG PO Q8 Cholecalciferol (Vitamin D3), 1,000 INTER.UNIT PO BID Furosemide (Furosemide), 40 MG PO QPM Furosemide (Furosemide), 80 MG PO QAM Haloperidol Decanoate (Haldol Decanoate 100), 1 ML IM MONTHLY Insulin Aspart (Novolog), 0 SQ UD Insulin Glargine (Lantus Solostar), 14 UNITS SC AMPM Ipratropium-Albuterol (Combivent Respimat), 1 PUFFS INH QID Lactulose (Lactulose), 30 GM PO TID Levetiractam (Levetiracetam), 500 MG PO BID Lisinopril (Lisinopril), 5 MG PO QAM [place] Carbonate ([place] Carbonate), 300 MG PO QAM [place] Carbonate ([place] Carbonate ER), 300 MG PO HS Magnesium Oxide (Mag-Ox), 400 MG PO BID Metolazone (Zaroxolyn), 5 MG PO DAILY Nystatin (Nystop), 1 APPLN TOP BID Potassium Chloride (Micro-K Ext Rel), 160 MEQ PO QAM Potassium Chloride (K-Tabs), 40 MEQ PO DAILY@1200 Potassium Chloride (Micro-K Ext Rel), 80 MEQ PO QPM Scheduled PRN Polyethylene (Miralax), 17 GM PO DAILY PRN for Constipation Current Inpatient Medications Current Inpatient Medications Medications (Trade) Dose Ordered Sig/Nanette Route Start Time Stop Time Status Last Admin Dose Admin Insulin Human Regular 250 units/ Sodium Chloride 252.5 ml @ 0 mls/hr Q24H IV 10/01/17 10:00 10/02/17 09:59 10/01/17 10:00 3.4 MLS/HR Glucose (Glucose 40% Gel) 15-30 GRAMS 15 GRAMS... UD PRN PO 10/01/17 09:45 10/31/17 09:44 Glucose (Glucose Chew Tab) 4-8 Tablets 4 Tabl... UD PRN PO 10/01/17 09:45 10/31/17 09:44 Dextrose (Dextrose 50% 50ML Syringe) 25-50ML OF 50% DW IV FOR... UD PRN IV 10/01/17 09:45 10/31/17 09:44 Glucagon (Glucagon Inj) 1 mg UD PRN SQ 10/01/17 09:45 10/31/17 09:44 Heparin Sodium (Porcine) (Heparin Sq 5000 Unit/0.5ml) 5,000 unit Q12 SQ 10/01/17 21:00 10/31/17 20:59 Potassium Chloride/Sodium Chloride 1,000 ml @ 200 mls/hr Q5H IV 10/01/17 13:45 10/31/17 13:44 10/01/17 14:47 200 MLS/HR Acetaminophen (Tylenol Tab) 650 mg Q4H PRN PO 10/01/17 12:15 10/31/17 12:14 Ondansetron HCl (Zofran Inj) 4 mg Q6H PRN IV 10/01/17 12:15 10/31/17 12:14 Miscellaneous Information (Icu Protocol For Hyperglycemia) 1 ea PRN PRN N/A 10/01/17 12:15 10/03/17 12:14 Insulin Aspart (novoLOG ASPART) [facility] 10/01/17 13:00 10/31/17 12:59 Miscellaneous Information (Consult Glycemic Management Pharmacy) 1 ea UD PRN N/A 10/01/17 12:15 10/31/17 12:14 Benzonatate (Tessalon Perles Cap) 200 mg Q8 PO 10/01/17 14:00 10/31/17 13:59 10/01/17 14:51 200 MG Lactulose (Chronulac Syrup) 30 gm TID PO 10/01/17 14:00 10/31/17 13:59 10/01/17 14:51 30 GM Levetiracetam (Keppra Tab) 500 mg BID PO 10/01/17 21:00 10/31/17 20:59 Albuterol/ Ipratropium (Duoneb) 3 ml QIDR INH 10/01/17 16:00 10/31/17 15:59 Miscellaneous Information (Pharmacist Discharge Med Rec Consult) 1 ea UD PRN N/A 10/01/17 12:45 10/31/17 12:44 Aspirin (Ecotrin Tab) 81 mg QAM PO 10/02/17 09:00 11/01/17 08:59 Insulin Human Regular 250 units/ Sodium Chloride 252.5 ml @ 0 mls/hr Q24H IV 10/02/17 10:00 11/01/17 09:59 Review of Systems Constitutional: No fever, No chills, No sweats, No weight loss, No weakness, No fatigue, No problem reported Eyes: No worsening of vision, No eye pain, No redness, No discharge, No diplopia, No problem reported ENT: No hearing loss, No unusual epistaxis, No nasal symptoms, No sore throat, No tinnitus, No dental problems, No trouble swallowing, No problem reported Respiratory: No cough, No sputum, No wheezing, No shortness of breath, No dyspnea on exertion, No dyspnea at rest, No hemoptysis, No problem reported Cardiovascular: No chest pain, No orthopnea, No PND, No edema, No claudication , No palpitations, No problem reported Abdomen: No pain, No nausea, No vomiting, No diarrhea, No constipation, No GI bleeding, No problem reported Musculoskeletal: + problem reported (Weakness in her upper extremity extending from the forearm to the digits only. Does not follow neurologic distribution.) Genitourinary - Female: No dysuria, No urinary frequency, No urinary urgency, No urinary incontinence, No urinary retention, No hematuria, No dysmenorrhea, No menorrhagia, No metrorrhagia, No rash, No vaginal bleeding, No vaginal discharge, No vaginal itching, No vulvodynia, No , No problem reported Neurologic: + problem reported (See above.) Psychiatric: + problem reported (Somewhat agitated.) Endocrine: + problem reported (Denies any polyuria but did have polydipsia.), No fatigue, No excessive thirst, No excessive urination Hematologic / Lymphatic: No abnormal bleeding/bruising, No clotting problems, No swollen lymph nodes, No night sweats, No problem reported Allergic / Immunologic: No environmental allergies, No seasonal allergies, No pet sensitivities, No food allergies, No hives, No frequent infections, No poor healing, No prolonged convalescence, No problem reported Physical Exam Date Time Temp Pulse Resp B/P (MAP) Pulse Ox O2 Delivery O2 Flow Rate FiO2 10/01/17 13:30 82 21 114/56 97 10/01/17 12:38 87 19 95 Room Air 10/01/17 12:20 91 10/01/17 10:48 97 24 112/76 96 Nasal Cannula 3.0 10/01/17 10:13 95 Nasal Cannula 3.0 10/01/17 09:53 98 22 125/77 95 Nasal Cannula 3.0 10/01/17 09:18 96 Nasal Cannula 3.0 10/01/17 09:08 36.9 97 20 131/74 95 Nasal Cannula 3.0 10/01/17 08:58 97 General Appearance: uncomfortable Head: normocephalic Eyes: EOMI ENT: other (Poor dentures,) Neck: trachea midline Respiratory: breath sounds normal Cardiovasular: regular rate/rhythm, normal S1S2, no M/G/R Back: normal inspection Lower Extremities: edema Neuro: alert, oriented x 3, other (Weakness in the forearm right upper extremity, cranial nerves are intact, the rest of her motor sensory exam was normal.) Psychiatric: anxious Laboratory Results Last 24 Hours Test 10/01/17 08:49 10/01/17 08:50 10/01/17 08:57 10/01/17 08:58 Bedside Glucose > 600 mg/dl > 600 mg/dl White Blood Count 7.15 K/uL Red Blood Count 4.57 M/uL Hemoglobin 12.2 g/dL Hematocrit 45.3 % Mean Corpuscular Volume 99.1 fL Mean Corpuscular Hemoglobin 26.7 pg Mean Corpuscular Hemoglobin Concent 26.9 g/dl Platelet Count 157 K/uL Mean Platelet Volume 11.3 fL Neutrophils (%) (Auto) 85.8 % Lymphocytes (%) (Auto) 7.4 % Monocytes (%) (Auto) 6.4 % Eosinophils (%) (Auto) 0.0 % Basophils (%) (Auto) 0.1 % Neutrophils # (Auto) 6.13 K/uL Lymphocytes # (Auto) 0.53 K/uL Monocytes # (Auto) 0.46 K/uL Eosinophils # (Auto) 0.00 K/uL Basophils # (Auto) 0.01 K/uL RDW Standard Deviation 69.7 fL RDW Coefficient of Variation 19.2 % Immature Granulocyte % (Auto) 0.3 % Immature Granulocyte # (Auto) 0.02 K/uL Prothrombin Time 11.4 SECONDS Prothromb Time International Ratio 1.1 Sodium Level 128 mmol/L Potassium Level 4.1 mmol/L Chloride Level 85 mmol/L Carbon Dioxide Level 36 mmol/L Anion Gap 8.0 mmol/L Blood Urea Nitrogen 37 mg/dl Creatinine 2.07 mg/dl Est Creatinine Clear Calc Drug Dose 30.2 ml/min Estimated GFR () 29.0 Estimated GFR (Non- 25.0 BUN/Creatinine Ratio 17.8 Random Glucose 1262 mg/dl Calcium Level 9.2 mg/dl Magnesium Level 2.8 mg/dl Total Bilirubin 0.7 mg/dl Aspartate Amino Transf (AST/SGOT) 17 U/L Alanine Aminotransferase (ALT/SGPT) 23 U/L Alkaline Phosphatase 192 U/L Total Protein 7.4 gm/dl Albumin 3.4 gm/dl Globulin 4.0 gm/dl Albumin/Globulin Ratio 0.9 Beta-Hydroxybutyric Acid 25.36 mg/dL Bedside Lactic Acid Venous 2.18 mmol/L Test 10/01/17 09:04 10/01/17 09:17 10/01/17 11:40 10/01/17 12:15 Urine Color YELLOW Urine Appearance CLEAR Urine pH 7.0 Urine Specific [place] 1.030 Urine Protein NEG Urine Glucose (UA) 3+ Urine Ketones TRACE Urine Occult Blood 1+ Urine Nitrite NEG Urine Bilirubin NEG Urine Urobilinogen NEG Urine Leukocyte Esterase NEG Urine WBC (Auto) /hpf Urine RBC (Auto) /hpf Urine Hyaline Casts (Auto) /lpf Urine Epithelial Cells (Auto) /lpf Urine Bacteria (Auto) Urine RBC 0-4 /hpf Urine WBC 1-5 /hpf Urine Epithelial Cells 10-20 /lpf Urine Bacteria NEG Arterial Blood pH 7.29 Arterial Blood Partial Pressure CO2 77 mmHg Arterial Blood Partial Pressure O2 79 mm/Hg Arterial Blood HCO3 36 mmol/L Arterial Blood Oxygen Saturation 93.0 % Arterial Blood Base Excess 6.6 mEq/L Arterial Blood Gas Delivery 3L Christiano Test POS Random Glucose 1082 mg/dl Beta-Hydroxybutyric Acid 11.20 mg/dL Creatine Kinase MB Ratio Test 10/01/17 14:31 10/01/17 14:32 Diagnostic Results Imaging including chest x-ray as reported above, head CT is still pending to rule out CVA. She did have similar presentation where she had MRI and head CT back in November 2016 which did not reveal any intracranial pathology. Echocardiogram from previous also was reviewed which showed EF of 55% and elevated PA pressure. Assessment & Plan 1. HH NK. 2. Cardiomegaly with likely congestive heart failure. Not in exacerbation and appears chronic. 3. History of bipolar disorder and has been treated with lithium which makes me think of schizophrenia rather than bipolar. 4. Poorly controlled diabetes in a patient who is noncompliant. 5. Acute on chronic respiratory acidosis, etiology could be related to her psych medications which has been on hold now. 6. Patient does not have a diagnosis of COPD and she was never smoker. Plan: 1. Continue with IV fluids. 2. Insulin drip. 3. Appreciate pharmacy input and glycemic control. 4. We will perform a head CT, although they weakness in the periphery appear to be lower motor neuron not upper motor neuron. Unclear to me if it is related to peripheral neuropathy or mononeuritis multiplex. 5. Watch for her electrolytes especially potassium while she is on insulin drip. 6. Oxygen if needed only. In fact minimizing the oxygen will lower her PCO2. 7. The patient is not on dialysis, she does have old left arm AV fistula which has not been used in 8 years according to her. 8. We will watch her closely while we are giving her IV fluid so she does not go to CHF exacerbation. 9. Continue current medications. 10. Check lithium level. 11. Appreciate Gael consult, case discussed with him, discussed also with the staff. Critical care time spent with the patient was 45 minutes.
[2017-10-01 15:13] LABS: BLOOD UREA NITROGEN 33 mg/dl (7-18); CALCIUM 9.5 mg/dl (8.5-10.1); CARBON DIOXIDE 38 mmol/L (21-32); CKMB 1.7 ng/ml (0.5-3.6); CREATININE 1.82 mg/dl (0.60-1.20); GLUCOSE 626 mg/dl (70-99); PHOSPHORUS 2.4 mg/dl (2.5-4.9)
[2017-10-01 15:14] LABS: POTASSIUM 3.2 mmol/L (3.5-5.1); SODIUM 140 mmol/L (136-145)
[2017-10-01] MEDS: ALBUT/IPRATROP 3MG/0.5MG NEB 3 ML VIAL INH SCH ×2 (15:37→19:03)
--- NOTE | 2017-10-01 15:59 | DIAGNOSTIC IMAGING REPORT ---
CT SCAN OF THE BRAIN WITHOUT IV CONTRAST CLINICAL HISTORY: Right upper extremity weakness. COMPARISON STUDY: CT the brain dated 12/04/2016. MRI of the brain dated 11/25/2016. TECHNIQUE: Unenhanced axial CT scan of the brain is performed from the vertex to the skull base. Automated dose control exposure was utilized. CT DOSE: 644.98 mGy.cm FINDINGS: Brain parenchyma: The brain parenchyma is normal in appearance. There is no hemorrhage, mass effect, or evidence of acute territorial ischemia by CT criteria. Hughes-white matter is preserved. No extra-axial fluid collection is seen. Ventricles, sulci, cisterns: Normal in configuration. Intracranial vasculature: There is mild atherosclerotic calcification of the cavernous carotid arteries. Calvarium: Unremarkable. Sinuses and mastoids: The visualized paranasal sinuses are clear. The mastoid air cells are well pneumatized. Orbits: The bony orbits are grossly intact. There is bilateral proptosis. IMPRESSION: There is no hemorrhage, mass effect, or evidence of acute territorial ischemia by CT criteria. Electronically signed by: Ke Ojeda M.D. 10/01/2017 3:58 PM Dictated Date/Time: 10/01/2017 3:56 PM
[2017-10-01 16:59] LABS: CALCIUM 9.4 mg/dl (8.5-10.1); CREATININE 1.68 mg/dl (0.60-1.20); POTASSIUM 3.4 mmol/L (3.5-5.1)
[2017-10-01] MEDS: POTASSIUM CHLR 10 MEQ / WTR 100 ML IV SCH ×2 (18:45→19:52)
[2017-10-01] MEDS ORDERED: PENDING D5NS+20mEq KCL IVF SCH (18:45)
[2017-10-01] MEDS: D5NSS + 20MEQ KCL 1,000 ML IV SCH (18:48)
[2017-10-01] MEDS: HALOPERIDOL 1 MG TAB PO SCH (21:31)
[2017-10-01] MEDS: LITHIUM CARBONATE SR 300 MG TAB (LITHOBID) PO SCH (21:33)
[2017-10-01] MEDS: LEVETIRACETAM 500 MG TAB PO SCH (21:33)
[2017-10-01] MEDS: HEPARIN SOD 5000 UNIT/0.5 ML CARP SQ SCH (21:39)
[2017-10-01 21:49] LABS: CALCIUM 8.6 mg/dl (8.5-10.1); CREATININE 1.22 mg/dl (0.60-1.20); POTASSIUM 3.8 mmol/L (3.5-5.1)
[2017-10-02] VITALS (32 sets, daily range): BP systolic 96–146; BP diastolic 60–95; PULSE 80–177; TEMP 36.5–37.1; O2SAT 88–100
[2017-10-02] MEDS: D5NSS + 20MEQ KCL 1,000 ML IV SCH ×3 (00:01→10:09)
[2017-10-02 00:20] LABS: CALCIUM 8.9 mg/dl (8.5-10.1); CREATININE 1.24 mg/dl (0.60-1.20); POTASSIUM 3.6 mmol/L (3.5-5.1)
[2017-10-02] MEDS ORDERED: POTASSIUM CHLR 10 MEQ / WTR 100 ML IV STA (00:29)
[2017-10-02] MEDS ORDERED: METOPROLOL TARTRATE 1 MG/ML VIAL IV STA ×2 (01:49→02:12)
[2017-10-02] MEDS ORDERED: METOPROLOL TARTRATE 1 MG/ML VIAL ONE (01:54)
[2017-10-02] MEDS ORDERED: HALOPERIDOL LACTATE 5 MG/ML 1 ML VIAL IV STA (01:57)
[2017-10-02] MEDS ORDERED: HALOPERIDOL LACTATE 5 MG/ML 1 ML VIAL ONE (02:01)
[2017-10-02] MEDS ORDERED: ADENOSINE IV SOLN 3 MG/ML 2 ML VIAL IV STA (02:18)
[2017-10-02] MEDS ORDERED: ADENOSINE IV SOLN 3 MG/ML 2 ML VIAL ONE (02:19)
[2017-10-02 03:22] LABS: ALBUMIN 2.8 gm/dl (3.4-5.0); CREATININE 1.24 mg/dl (0.60-1.20); PHOSPHORUS 1.7 mg/dl (2.5-4.9); POTASSIUM 4.2 mmol/L (3.5-5.1); TOTAL PROTEIN 6.8 gm/dl (6.4-8.2)
[2017-10-02 03:26] LABS: HEMATOCRIT 42.5 % (37-47); HEMOGLOBIN 12.5 g/dL (12.0-16.0); MEAN CELL VOLUME 91.4 fL (80-100); MEAN CORPUSCULAR HEMOGLOBIN 26.9 pg (25-34); MEAN CORPUSCULAR HGB CONC 29.4 g/dl (32-36); RED CELL DISTRIBUTION WIDTH CV 17.3 % (11.5-14.5); RED CELL DISTRIBUTION WIDTH SD 57.5 fL (36.4-46.3); WHITE BLOOD COUNT 6.13 K/uL (4.8-10.8)
[2017-10-02 03:36] LABS: MEAN PLATELET VOLUME 11.4 fL (7.4-10.4); PLATELET COUNT 150 K/uL (130-400)
[2017-10-02 03:37] LABS: EOS % 0.8 %; EOS ABS # 0.05 K/uL (0-0.5); IG# 0.03 K/uL (0.00-0.02); LYMPH ABS # 1.35 K/uL (1.2-3.4); MONO % 8.3 %; MONO ABS # 0.51 K/uL (0.11-0.59); NEUT % 68.4 %; NEUT ABS # 4.19 K/uL (1.4-6.5)
--- NOTE | 2017-10-02 05:13 | Critical Care Progress Note ---
Critical Care Progress Note Date of Service Oct 02, 2017. Critical Care Progress Note I was approached by nursing staff as the patient went into a rapid narrow complex tachycardia with a heart rate sustained in the 160s. On evaluation, the patient is awake, yet still confused. Her blood pressure stable in the 1 teens over 50s. As EKG was being attempted, the patient did break into a normal sinus rhythm. While reassessing patient's labs, the patient did convert back into a narrow complex tachycardia. This time she was sustained for several minutes. Initially, I did attempt to treat the patient with 5 mg metoprolol for rate control as her blood pressure had been maintained. The patient became combative and irritated. She did not allow access to her IV sites. She subsequently received a total of 2 mg IV Haldol for agitation. Shortly after, she did receive 5 mg IV metoprolol. She was monitored for several more minutes without change in heart rate. At this point, as the patient has had increasing agitation, patient was provided a one-time dose of 6 mg IV adenosine. There is no change in the rate or rhythm despite administration. Approximately 5 minutes after administration of adenosine, the patient did break into a normal sinus rhythm in the 80s where she maintained. Blood pressures have been stable in the 130s/60s. Will continue to monitor. I have personally spent 60 minutes of critical care time in the direct management of this patient. This is a life/limb threatening event. This includes time spent evaluating patient, direct bedside care, chart review, placing orders, interpretation of diagnostic studies, discussion with consultants, patient, and family members, as well as other required patient management activities. This time is exclusive of all separately billable procedures, and teaching time and separate from and in addition to any other critical care service time.
[2017-10-02] MEDS: BENZONATATE 100MG CAP PO SCH ×3 (05:41→22:00)
[2017-10-02] MEDS: ALBUT/IPRATROP 3MG/0.5MG NEB 3 ML VIAL INH SCH ×4 (07:19→19:01)
[2017-10-02] MEDS ORDERED: INSULIN PROTOCOL GOAL RANGE ONE (07:30)
[2017-10-02] MEDS: INSULIN ASPART 100 UNITS/ML 3 ML PEN SC SCH ×5 (08:00→20:57)
[2017-10-02 08:41] LABS: CALCIUM 8.5 mg/dl (8.5-10.1); CREATININE 1.2 mg/dl (0.60-1.20)
[2017-10-02] MEDS: HALOPERIDOL 1 MG TAB PO SCH ×2 (09:00→22:12)
[2017-10-02] MEDS: LEVETIRACETAM 500 MG TAB PO SCH (09:52)
[2017-10-02] MEDS: LACTULOSE SYRUP 30 GM/45 ML UDP PO SCH ×3 (09:52→22:13)
[2017-10-02] MEDS: LITHIUM CARBONATE 300 MG TAB PO SCH (09:52)
[2017-10-02] MEDS: ASPIRIN 81 MG ECTAB PO SCH (09:53)
[2017-10-02] MEDS: HEPARIN SOD 5000 UNIT/0.5 ML CARP SQ SCH ×2 (09:54→22:15)
[2017-10-02] MEDS ORDERED: GLUCAGON FOR INJ 1 MG VIAL SQ PRN (10:00)
[2017-10-02] MEDS ORDERED: DEXTROSE 50% 50 ML SYR IV PRN (10:00)
[2017-10-02] MEDS ORDERED: GLUCOSE 40% GEL 15 GM TUBE PO PRN (10:00)
[2017-10-02] MEDS ORDERED: INSULIN REGULAR 250 UNITS in SODIUM CHLORIDE 0.9% 250ML 250 ML IV SCH (10:00)
[2017-10-02] MEDS ORDERED: GLUCOSE 10 TABS/TUBE PO PRN (10:00)
[2017-10-02] MEDS ORDERED: INSULIN GLARGINE SOLOSTAR 100 UNITS/ML 3 ML PEN SC SCH ×2 (10:00→21:00)
--- NOTE | 2017-10-02 10:12 | Family Medicine Progress Note ---
Progress Note Date of Service Oct 02, 2017. Subjective Pt evaluation today including: conversation w/ patient, conversation w/ family (), physical exam, chart review, lab review, review of studies, conversation w/ sales and leasing consultant (Dr Ma/[place]), review of inpatient medication list Voiding: rao catheter in place Feels "Brando told her stop her medications". She denies any shortness of breath , chest pain, constipation, diarrhea. All Other Systems: Reviewed and Negative Medications Current Inpatient Medications Medications (Trade) Dose Ordered Sig/Nanette Route Start Time Stop Time Status Last Admin Dose Admin Glucose (Glucose 40% Gel) 15-30 GRAMS 15 GRAMS... UD PRN PO 10/01/17 09:45 10/31/17 09:44 Glucose (Glucose Chew Tab) 4-8 Tablets 4 Tabl... UD PRN PO 10/01/17 09:45 10/31/17 09:44 Dextrose (Dextrose 50% 50ML Syringe) 25-50ML OF 50% DW IV FOR... UD PRN IV 10/01/17 09:45 10/31/17 09:44 Glucagon (Glucagon Inj) 1 mg UD PRN SQ 10/01/17 09:45 10/31/17 09:44 Heparin Sodium (Porcine) (Heparin Sq 5000 Unit/0.5ml) 5,000 unit Q12 SQ 10/01/17 21:00 10/31/17 20:59 10/02/17 09:54 5,000 UNIT Acetaminophen (Tylenol Tab) 650 mg Q4H PRN PO 10/01/17 12:15 10/31/17 12:14 Ondansetron HCl (Zofran Inj) 4 mg Q6H PRN IV 10/01/17 12:15 10/31/17 12:14 Miscellaneous Information ([facility] Protocol For Hyperglycemia) 1 ea PRN PRN N/A 10/01/17 12:15 10/03/17 12:14 Insulin Aspart (novoLOG ASPART) SLIDING SCALE HS VT 10/01/17 13:00 10/31/17 12:59 Miscellaneous Information (Consult Glycemic Management Pharmacy) 1 ea UD PRN N/A 10/01/17 12:15 10/31/17 12:14 Benzonatate (Tessalon Perles Cap) 200 mg Q8 PO 4/21/18 14:00 10/31/17 13:59 10/02/17 05:41 200 MG Lactulose (Chronulac Syrup) 30 gm TID PO 10/01/17 14:00 10/31/17 13:59 10/02/17 09:52 30 GM Levetiracetam (Keppra Tab) 500 mg BID PO 10/01/17 21:00 10/31/17 20:59 10/02/17 09:52 500 MG Albuterol/ Ipratropium (Duoneb) 3 ml QIDR INH 10/01/17 16:00 10/31/17 15:59 10/02/17 07:19 3 ML Miscellaneous Information (Pharmacist Discharge Med Rec Consult) 1 ea UD PRN N/A 10/01/17 12:45 10/31/17 12:44 Aspirin (Ecotrin Tab) 81 mg QAM PO 10/02/17 09:00 11/01/17 08:59 10/02/17 09:53 81 MG Insulin Human Regular 250 units/ Sodium Chloride 252.5 ml @ 0 mls/hr Q24H IV 10/02/17 10:00 11/01/17 09:59 [place] Carbonate (Lithobid Tab) 300 mg HS PO 10/01/17 21:00 10/31/17 20:59 10/01/17 21:33 300 MG [place] Carbonate ([place] Carbonate Tab) 300 mg QAM PO 10/02/17 09:00 11/01/17 08:59 10/02/17 09:52 300 MG Haloperidol (Haldol Tab) 2 mg BID PO 10/01/17 21:00 10/31/17 20:59 10/01/17 21:31 2 MG Potassium Chloride/Dextrose/ Sod Cl 1,000 ml @ 200 mls/hr Q5H IV 10/01/17 18:45 10/31/17 18:44 10/02/17 05:06 200 MLS/HR Insulin Glargine (Lantus Solostar Pen) 40 units DAILY SC 10/02/17 10:00 11/01/17 09:59 Insulin Glargine (Lantus Solostar Pen) 20 units HS SC 10/02/17 21:00 11/01/17 20:59 Insulin Aspart (novoLOG ASPART) SLIDING SCALE If C... ACHS SC 10/02/17 11:00 11/01/17 10:59 UNV Objective Vital Signs Date Time Temp Pulse Resp B/P (MAP) Pulse Ox O2 Delivery O2 Flow Rate FiO2 10/02/17 08:00 98 Nasal Cannula 2.0 10/02/17 07:22 88 22 96 Nasal Cannula 2.0 10/02/17 06:00 80 22 132/68 (89) 96 Nasal Cannula 2.0 10/02/17 04:00 96 Nasal Cannula 2.0 10/02/17 03:16 80 22 119/72 (88) 98 2.0 10/02/17 03:01 84 23 117/74 (88) 96 2.0 10/02/17 02:46 84 26 115/72 (86) 95 2.0 10/02/17 02:44 81 24 120/74 (89) 95 2.0 10/02/17 02:16 150 19 96/66 (76) 93 2.0 10/02/17 02:15 163 116/66 10/02/17 02:01 163 19 116/66 (83) 94 2.0 10/02/17 01:47 164 22 111/66 (81) 95 2.0 10/02/17 01:36 164 17 108/66 (80) 96 2.0 10/02/17 01:01 86 22 111/75 (87) 94 2.0 10/02/17 01:00 81 25 94 2.0 10/02/17 00:01 36.5 88 23 146/79 (101) 91 Nasal Cannula 2.0 10/01/17 23:59 94 Nasal Cannula 2.0 10/01/17 22:00 83 19 133/95 (108) 93 Nasal Cannula 3.0 10/01/17 20:00 36.5 82 19 105/48 (67) 94 Nasal Cannula 3.0 10/01/17 20:00 93 Nasal Cannula 3.0 10/01/17 19:03 83 18 97 Nasal Cannula 3.0 10/01/17 18:00 83 19 108/59 (75) 95 Nasal Cannula 3.0 10/01/17 17:00 83 17 109/54 (72) 98 Nasal Cannula 3.0 10/01/17 16:00 85 20 108/59 (75) 97 Nasal Cannula 3.0 10/01/17 16:00 96 Nasal Cannula 3.0 10/01/17 15:37 98 18 93 Nasal Cannula 3.0 10/01/17 14:36 36.5 84 20 106/63 (77) 96 Nasal Cannula 3.0 10/01/17 13:30 82 21 114/56 97 10/01/17 12:38 87 19 95 Room Air 10/01/17 12:20 91 10/01/17 10:48 97 24 112/76 96 Nasal Cannula 3.0 10/01/17 10:13 95 Nasal Cannula 3.0 Physical Exam General Appearance: + obese Eyes: + pertinent finding (bilateral proptosis) ENT: + pertinent finding (dry mouth with poor oral hygeine) Neck: trachea midline Respiratory/Chest: lungs clear, normal breath sounds, no respiratory distress, no accessory muscle use Cardiovascular: regular rate, rhythm, no murmur Abdomen: normal bowel sounds, non tender, soft, no organomegaly (obese abdomen) Extremities: no pedal edema, no calf tenderness, normal capillary refill 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: no motor/sensory deficits (4+ elbow and wrist flexion/ extension on right, otherwise motor and sensory examination of upper limb normal ), alert, oriented x 3 Laboratory Results 10/02/17 02:34 Red Blood Count 4.65, Mean Corpuscular Volume 91.4 #, Mean Corpuscular Hemoglobin 26.9, Mean Corpuscular Hemoglobin Concent 29.4, Mean Platelet Volume 11.4, Neutrophils (%) (Auto) 68.4, Lymphocytes (%) (Auto) 22.0, Monocytes (%) ( Auto) 8.3, Eosinophils (%) (Auto) 0.8, Basophils (%) (Auto) 0.0, Neutrophils # ( Auto) 4.19, Lymphocytes # (Auto) 1.35, Monocytes # (Auto) 0.51, Eosinophils # ( Auto) 0.05, Basophils # (Auto) 0.00 10/02/17 08:07 Test 10/01/17 12:15 10/01/17 14:31 10/01/17 14:32 10/01/17 21:19 Creatine Kinase MB Ratio (0-3.0) Creatine Kinase MB 1.7 ng/ml (0.5-3.6) Troponin I 0.063 ng/ml (0-0.045) [place] Level < 0.2 mMOL/L (0.6-1.2) Lactic Acid Level 4.1 mmol/L (0.4-2.0) Ammonia 48.1 umol/L (11-32) Test 10/02/17 02:34 10/02/17 08:07 10/02/17 09:11 White Blood Count 6.13 K/uL (4.8-10.8) Red Blood Count 4.65 M/uL (4.2-5.4) Hemoglobin 12.5 g/dL (12.0-16.0) Hematocrit 42.5 % (37-47) Mean Corpuscular Volume 91.4 fL (80-100) Mean Corpuscular Hemoglobin 26.9 pg (25-34) Mean Corpuscular Hemoglobin Concent 29.4 g/dl (32-36) Platelet Count 150 K/uL (130-400) Mean Platelet Volume 11.4 fL (7.4-10.4) Neutrophils (%) (Auto) 68.4 % Lymphocytes (%) (Auto) 22.0 % Monocytes (%) (Auto) 8.3 % Eosinophils (%) (Auto) 0.8 % Basophils (%) (Auto) 0.0 % Neutrophils # (Auto) 4.19 K/uL (1.4-6.5) Lymphocytes # (Auto) 1.35 K/uL (1.2-3.4) Monocytes # (Auto) 0.51 K/uL (0.11-0.59) Eosinophils # (Auto) 0.05 K/uL (0-0.5) Basophils # (Auto) 0.00 K/uL (0-0.2) RDW Standard Deviation 57.5 fL (36.4-46.3) RDW Coefficient of Variation 17.3 % (11.5-14.5) Immature Granulocyte % (Auto) 0.5 % Immature Granulocyte # (Auto) 0.03 K/uL (0.00-0.02) Platelet Estimate NORMAL Giant Platelets 1+ Hypochromasia PRESENT Phosphorus Level 1.7 mg/dl (2.5-4.9) Magnesium Level 2.8 mg/dl (1.8-2.4) Total Bilirubin 0.6 mg/dl (0.2-1) Direct Bilirubin 0.4 mg/dl (0-0.2) Aspartate Amino Transf (AST/SGOT) 24 U/L (15-37) Alanine Aminotransferase (ALT/SGPT) 20 U/L (12-78) Alkaline Phosphatase 127 U/L (45-117) Total Protein 6.8 gm/dl (6.4-8.2) Albumin 2.8 gm/dl (3.4-5.0) Triglycerides Level 82 mg/dl (0-150) Cholesterol Level 69 mg/dl (0-200) HDL Cholesterol 41 mg/dl LDL Cholesterol, Calculated 12 mg/dl VLDL Cholesterol, Calculated 16 mg/dl Cholesterol/HDL Ratio 1.7 Venous Blood pH 7.35 (7.36-7.41) Anion Gap 3.0 mmol/L (3-11) Est Creatinine Clear Calc Drug Dose 54.4 ml/min Estimated GFR () 56.1 Estimated GFR (Non- 48.4 BUN/Creatinine Ratio 17.3 (10-20) Calcium Level 8.5 mg/dl (8.5-10.1) Beta-Hydroxybutyric Acid 1.10 mg/dL (0.2-2.81) Bedside Glucose 335 mg/dl (70-90) Date/Time Source Procedure Growth Status 10/01/17 14:35 Nasal MRSA DNA Surveillance Screen - Final Specimen Negative for MRSA by DNA Probe Complete Assessment and Plan 62 year old female with schizophrenia presents with new right sided arm weakness after stopping her medications as "Brando told her to stop her medications" Right arm weakness / seizure disorder - substantially improved since admission. Possible focal motor seizure with a subsequent Price's paralysis precipitaetd by severe hyperglycemia - appreciate neurology recommendations - increasing keppra - MRI brain combo pending SVT - 1 hour episode this morning - spontaneous conversion to SR - Asymptomatic therefore need for outpatient cardiology follow up only for consideration of EP study Hyperosmolar Hyperglycemic state (HHS/HHNK) - appreciate glycemic control, Slowly transition from IV to SQ basal bolus insulin regimen - glucose now around 300 and euvolemic, Na raised therefore will switch to 0.25% NSS @100 MLS/HR - repeat VBG, BMP in morning - diet - T2DM Type 2 diabetes mellitus - appreciate glycemic control with transition off IV insulin Acute renal failure (Hx of needing dialysis) - not yet back to baseline, continue IVF 0.25%NSS as above Hypercapnic respiratory acidosis suspect related to sleep apnea - she does not wear her CPAP at home Acute radha with known Schizophrenia with Bipolar - off her usual medications ( lithium level undetected) - consult psychiatry - restart lithium Bilateral proptosis (longstanding as per Dr Lewis) - TSH, free T4, free T3 - most recent TSH normal however can be euthyroid with grave's - no known thyroid stimulating antibodies found in chart therefore will for this and need for outpatient follow up VTE Prophylaxis - heparin Q12H 5000 units Code - DNR Disposition - transfer to telemetry Resident Tracking Resident Involvement: Resident Care Provided Care Provided: Adult Hospital Medicine
[2017-10-02] MEDS ORDERED: SODIUM CHLORIDE 0.9% 1000ML 1,000 ML IV SCH (11:00)
--- NOTE | 2017-10-02 11:10 | Critical Care Progress Note ---
Critical Care Progress Note Date of Service Oct 02, 2017. Attending Dr. Ma Subjective The patient is more somnolent today, however she was delusional overnight. Requiring doses of Haldol. She did have brief episode of AVRT, nonsustained, asymptomatic and was hemodynamically stable. The patient is poor historian and review of system is not obtainable from her due to her history of schizophrenia. The patient apparently overnight was talking to Brando and incoherent with the questions being asked. Objective Physical exam of 10/02/2017 revealed 62-year-old female without any respiratory distress at the moment, vital signs are stable, she does have proptosis bilaterally, poor dentures, no JVP, S1-S2 regular rate and rhythm, lungs are clear, abdomen is benign, left upper extremity AV fistula, edema in the periphery noted. Assessment & Plan 1. HHNK crisis, resolved. Glucose is better controlled in the range of 350 currently. 2. Schizophrenia, she has been off her medications and not been taking them for the past 21 days. 3. History of seizure disorder. 4. SVT, could be AVRT. Nonsustained and asymptomatic. 5. Agree with Dr. Bae in regard of evaluating the patient for hyperthyroidism such as Graves' disease. 6. Cardiomegaly, significant on the chest x-ray, echo reports in the past revealed preserved LV with a small pericardial effusion only. 7. Chronic kidney disease used to be on dialysis with left upper extremity AV fistula, she has been off dialysis for the past 8 years. Plan: 1. Change the patient's Lantus to 40 units in a.m. Discussed with pharmacy, appreciate their input, will hold off on the 20 units p.m. except with parameters of glucose above certain threshold. 2. Change IV fluid to normal saline at 75 mL an hour. To avoid D5W infusion and factitious hypoglycemia. 3. Agree with cardiology consult to evaluate for recurrent SVT. 4. Obtain TSH, free T4, and thyroglobulin level. 5. Oral intake. 6. Resume her psych medications including lithium and Haldol. 7. Watch for lithium level as the patient had a chronic kidney disease. 8. Disposition plan to regular floor with telemetry. 9. Case discussed with the staff on rounds and details. 10. DVT prophylaxis. 11. Physical therapy when appropriate. Discussed with Dr. Bae, pharmacy, nursing staff, appreciate all inputs, critical care time spent with the patient was 45 minutes. Data Medications: Current Inpatient Medications Medications (Trade) Dose Ordered Sig/Nanette Route Start Time Stop Time Status Last Admin Dose Admin Glucose (Glucose 40% Gel) 15-30 GRAMS 15 GRAMS... UD PRN PO 10/01/17 09:45 10/31/17 09:44 Glucose (Glucose Chew Tab) 4-8 Tablets 4 Tabl... UD PRN PO 10/01/17 09:45 10/31/17 09:44 Dextrose (Dextrose 50% 50ML Syringe) 25-50ML OF 50% DW IV FOR... UD PRN IV 10/01/17 09:45 10/31/17 09:44 Glucagon (Glucagon Inj) 1 mg UD PRN SQ 10/01/17 09:45 10/31/17 09:44 Heparin Sodium (Porcine) (Heparin Sq 5000 Unit/0.5ml) 5,000 unit Q12 SQ 10/01/17 21:00 10/31/17 20:59 10/02/17 09:54 5,000 UNIT Acetaminophen (Tylenol Tab) 650 mg Q4H PRN PO 10/01/17 12:15 10/31/17 12:14 Ondansetron HCl (Zofran Inj) 4 mg Q6H PRN IV 10/01/17 12:15 10/31/17 12:14 Miscellaneous Information ([facility] Protocol For Hyperglycemia) 1 ea PRN PRN N/A 10/01/17 12:15 10/03/17 12:14 Miscellaneous Information (Consult Glycemic Management Pharmacy) 1 ea UD PRN N/A 10/01/17 12:15 10/31/17 12:14 Benzonatate (Tessalon Perles Cap) 200 mg Q8 PO 10/01/17 14:00 10/31/17 13:59 10/02/17 05:41 200 MG Lactulose (Chronulac Syrup) 30 gm TID PO 10/01/17 14:00 10/31/17 13:59 10/02/17 09:52 30 GM Levetiracetam (Keppra Tab) 500 mg BID PO 10/01/17 21:00 10/31/17 20:59 10/02/17 09:52 500 MG Albuterol/ Ipratropium (Duoneb) 3 ml QIDR INH 10/01/17 16:00 10/31/17 15:59 10/02/17 07:19 3 ML Miscellaneous Information (Pharmacist Discharge Med Rec Consult) 1 ea UD PRN N/A 10/01/17 12:45 10/31/17 12:44 Aspirin (Ecotrin Tab) 81 mg QAM PO 10/02/17 09:00 11/01/17 08:59 10/02/17 09:53 81 MG Insulin Human Regular 250 units/ Sodium Chloride 252.5 ml @ 0 mls/hr Q24H IV 10/02/17 10:00 10/02/17 17:00 [place] Carbonate (Lithobid Tab) 300 mg HS PO 10/01/17 21:00 10/31/17 20:59 10/01/17 21:33 300 MG [place] Carbonate ([place] Carbonate Tab) 300 mg QAM PO 10/02/17 09:00 11/01/17 08:59 10/02/17 09:52 300 MG Haloperidol (Haldol Tab) 2 mg BID PO 10/01/17 21:00 10/31/17 20:59 10/01/17 21:31 2 MG Potassium Chloride/Dextrose/ Sod Cl 1,000 ml @ 200 mls/hr Q5H IV 10/01/17 18:45 10/31/17 18:44 10/02/17 10:09 200 MLS/HR Insulin Glargine (Lantus Solostar Pen) 40 units DAILY SC 10/02/17 10:00 11/01/17 09:59 Insulin Glargine (Lantus Solostar Pen) 20 units HS SC 10/02/17 21:00 11/01/17 20:59 Insulin Aspart (novoLOG ASPART) SLIDING SCALE If C... ACHS SC 10/02/17 11:00 11/01/17 10:59 Insulin Glargine (Lantus Solostar Pen) SEE PROTOCOL TEXT HS SC 10/02/17 21:00 11/01/17 20:59 Miscellaneous Information (Dc Iv Insulin Infusion) 1 ea 10/02/17@1700 ONCE N/A 10/02/17 17:00 10/02/17 17:01 Vital Signs: Date Time Temp Pulse Resp B/P (MAP) Pulse Ox O2 Delivery O2 Flow Rate FiO2 10/02/17 10:00 36.5 80 25 119/64 (82) 97 Nasal Cannula 2.0 10/02/17 08:00 98 Nasal Cannula 2.0 10/02/17 07:22 88 22 96 Nasal Cannula 2.0 10/02/17 07:00 81 20 120/71 (87) 98 Nasal Cannula 2.0 10/02/17 06:00 80 22 132/68 (89) 96 Nasal Cannula 2.0 10/02/17 04:00 96 Nasal Cannula 2.0 10/02/17 03:16 80 22 119/72 (88) 98 2.0 10/02/17 03:01 84 23 117/74 (88) 96 2.0 10/02/17 02:46 84 26 115/72 (86) 95 2.0 10/02/17 02:44 81 24 120/74 (89) 95 2.0 10/02/17 02:16 150 19 96/66 (76) 93 2.0 10/02/17 02:15 163 116/66 10/02/17 02:01 163 19 116/66 (83) 94 2.0 10/02/17 01:47 164 22 111/66 (81) 95 2.0 10/02/17 01:36 164 17 108/66 (80) 96 2.0 10/02/17 01:01 86 22 111/75 (87) 94 2.0 10/02/17 01:00 81 25 94 2.0 10/02/17 00:01 36.5 88 23 146/79 (101) 91 Nasal Cannula 2.0 10/01/17 23:59 94 Nasal Cannula 2.0 10/01/17 22:00 83 19 133/95 (108) 93 Nasal Cannula 3.0 10/01/17 20:00 36.5 82 19 105/48 (67) 94 Nasal Cannula 3.0 10/01/17 20:00 93 Nasal Cannula 3.0 10/01/17 19:03 83 18 97 Nasal Cannula 3.0 10/01/17 18:00 83 19 108/59 (75) 95 Nasal Cannula 3.0 10/01/17 17:00 83 17 109/54 (72) 98 Nasal Cannula 3.0 10/01/17 16:00 85 20 108/59 (75) 97 Nasal Cannula 3.0 10/01/17 16:00 96 Nasal Cannula 3.0 10/01/17 15:37 98 18 93 Nasal Cannula 3.0 10/01/17 14:36 36.5 84 20 106/63 (77) 96 Nasal Cannula 3.0 10/01/17 13:30 82 21 114/56 97 10/01/17 12:38 87 19 95 Room Air 10/01/17 12:20 91 Laboratory Results: Last 24 Hours Test 10/01/17 11:40 10/01/17 12:15 10/01/17 13:54 10/01/17 14:31 Random Glucose 1082 mg/dl 626 mg/dl Beta-Hydroxybutyric Acid 11.20 mg/dL 1.69 mg/dL Creatine Kinase MB Ratio Bedside Glucose 579 mg/dl Sodium Level 140 mmol/L Potassium Level 3.2 mmol/L Chloride Level 97 mmol/L Carbon Dioxide Level 38 mmol/L Anion Gap 1.0 mmol/L Blood Urea Nitrogen 33 mg/dl Creatinine 1.82 mg/dl Est Creatinine Clear Calc Drug Dose 34.3 ml/min Estimated GFR () 33.9 Estimated GFR (Non- 29.2 BUN/Creatinine Ratio 18.0 Calcium Level 9.5 mg/dl Phosphorus Level 2.4 mg/dl Magnesium Level 3.0 mg/dl Creatine Kinase MB 1.7 ng/ml Troponin I 0.063 ng/ml [place] Level < 0.2 mMOL/L Test 10/01/17 14:32 10/01/17 15:06 10/01/17 16:17 10/01/17 16:21 Lactic Acid Level 4.1 mmol/L Bedside Glucose 458 mg/dl 405 mg/dl Venous Blood pH 7.40 Sodium Level 143 mmol/L Potassium Level 3.4 mmol/L Chloride Level 101 mmol/L Carbon Dioxide Level 40 mmol/L Anion Gap 2.0 mmol/L Blood Urea Nitrogen 32 mg/dl Creatinine 1.68 mg/dl Est Creatinine Clear Calc Drug Dose 37.2 ml/min Estimated GFR () 37.3 Estimated GFR (Non- 32.2 BUN/Creatinine Ratio 18.8 Random Glucose 461 mg/dl Calcium Level 9.4 mg/dl Beta-Hydroxybutyric Acid mg/dL Test 10/01/17 17:23 10/01/17 17:34 10/01/17 18:30 10/01/17 18:50 Bedside Glucose 301 mg/dl 213 mg/dl 247 mg/dl Beta-Hydroxybutyric Acid 1.06 mg/dL Test 10/01/17 19:15 10/01/17 20:05 10/01/17 21:19 10/01/17 21:22 Bedside Glucose 257 mg/dl 309 mg/dl 263 mg/dl Venous Blood pH 7.39 Sodium Level 146 mmol/L Potassium Level 3.8 mmol/L Chloride Level 105 mmol/L Carbon Dioxide Level 42 mmol/L Anion Gap 0.0 mmol/L Blood Urea Nitrogen 26 mg/dl Creatinine 1.22 mg/dl Est Creatinine Clear Calc Drug Dose 51.2 ml/min Estimated GFR () 55.0 Estimated GFR (Non- 47.4 BUN/Creatinine Ratio 21.6 Random Glucose 321 mg/dl Calcium Level 8.6 mg/dl Ammonia 48.1 umol/L Beta-Hydroxybutyric Acid 2.52 mg/dL Test 10/01/17 22:00 10/01/17 23:38 10/02/17 00:04 10/02/17 02:34 Bedside Glucose 298 mg/dl 312 mg/dl Venous Blood pH 7.36 7.36 Sodium Level 147 mmol/L 145 mmol/L Potassium Level 3.6 mmol/L 4.2 mmol/L Chloride Level 106 mmol/L 107 mmol/L Carbon Dioxide Level 42 mmol/L 36 mmol/L Anion Gap -2.0 mmol/L 2.0 mmol/L Blood Urea Nitrogen 24 mg/dl 23 mg/dl Creatinine 1.24 mg/dl 1.24 mg/dl Est Creatinine Clear Calc Drug Dose 50.4 ml/min 50.4 ml/min Estimated GFR () 53.9 53.9 Estimated GFR (Non- 46.5 46.5 BUN/Creatinine Ratio 19.3 18.7 Random Glucose 375 mg/dl 365 mg/dl Calcium Level 8.9 mg/dl 9.0 mg/dl Beta-Hydroxybutyric Acid 2.44 mg/dL 2.53 mg/dL White Blood Count 6.13 K/uL Red Blood Count 4.65 M/uL Hemoglobin 12.5 g/dL Hematocrit 42.5 % Mean Corpuscular Volume 91.4 fL Mean Corpuscular Hemoglobin 26.9 pg Mean Corpuscular Hemoglobin Concent 29.4 g/dl Platelet Count 150 K/uL Mean Platelet Volume 11.4 fL Neutrophils (%) (Auto) 68.4 % Lymphocytes (%) (Auto) 22.0 % Monocytes (%) (Auto) 8.3 % Eosinophils (%) (Auto) 0.8 % Basophils (%) (Auto) 0.0 % Neutrophils # (Auto) 4.19 K/uL Lymphocytes # (Auto) 1.35 K/uL Monocytes # (Auto) 0.51 K/uL Eosinophils # (Auto) 0.05 K/uL Basophils # (Auto) 0.00 K/uL RDW Standard Deviation 57.5 fL RDW Coefficient of Variation 17.3 % Immature Granulocyte % (Auto) 0.5 % Immature Granulocyte # (Auto) 0.03 K/uL Platelet Estimate NORMAL Giant Platelets 1+ Hypochromasia PRESENT Phosphorus Level 1.7 mg/dl Magnesium Level 2.8 mg/dl Total Bilirubin 0.6 mg/dl Direct Bilirubin 0.4 mg/dl Aspartate Amino Transf (AST/SGOT) 24 U/L Alanine Aminotransferase (ALT/SGPT) 20 U/L Alkaline Phosphatase 127 U/L Total Protein 6.8 gm/dl Albumin 2.8 gm/dl Triglycerides Level 82 mg/dl Cholesterol Level 69 mg/dl HDL Cholesterol 41 mg/dl LDL Cholesterol, Calculated 12 mg/dl VLDL Cholesterol, Calculated 16 mg/dl Cholesterol/HDL Ratio 1.7 Test 10/02/17 03:03 10/02/17 04:06 10/02/17 07:54 10/02/17 08:07 Bedside Glucose 322 mg/dl 331 mg/dl 355 mg/dl Venous Blood pH 7.35 Sodium Level 147 mmol/L Potassium Level 4.0 mmol/L Chloride Level 107 mmol/L Carbon Dioxide Level 37 mmol/L Anion Gap 3.0 mmol/L Blood Urea Nitrogen 21 mg/dl Creatinine 1.20 mg/dl Est Creatinine Clear Calc Drug Dose 54.4 ml/min Estimated GFR () 56.1 Estimated GFR (Non- 48.4 BUN/Creatinine Ratio 17.3 Random Glucose 385 mg/dl Calcium Level 8.5 mg/dl Beta-Hydroxybutyric Acid 1.10 mg/dL Test 10/02/17 09:11 10/02/17 10:23 Bedside Glucose 335 mg/dl 315 mg/dl
--- NOTE | 2017-10-02 11:49 | Neurology Consultation ---
Neurology Consultation Date of Consultation: Oct 02, 2017. Attending Physician: Jeremiah Lewis D.O. Primary Care Physician: Bin Patel M.D. Reason for Consultation: Right arm weakness, possible stroke History of Present Illness Source: hospital records The patient is a 62-year-old female who presented with change in mental status and a blood glucose of greater than 1200. She has been noncompliant with her diabetes medications. She had also reportedly been experiencing some abnormal movements of the right upper extremity. However, her right arm has been notably weak during this hospitalization. She has been admitted to the intensive care unit for further evaluation and management. She is somewhat difficult to arouse this morning but does complain of some weakness of the right upper limb. Electrocardiogram reveals a normal sinus rhythm, 100 beats per minute. A CT of the head is negative for hemorrhage or acute process. I reviewed the images as well as the radiologist's interpretation of this test. Past medical history notable for seizure disorder Past Medical/Surgical History Medical Problems: (1) Acute CHF Status: Acute (2) Acute renal failure (ARF) Status: Acute (3) Change in mental status Status: Acute (4) CHF (congestive heart failure) Status: Acute (5) CHF (congestive heart failure) Status: Acute (6) CO2 retention Status: Acute (7) Fall Status: Acute (8) Hyperammonemia Status: Acute (9) Hyperammonemia Status: Acute (10) Hyperammonemia Permanent Comment: Non cirrhotic hyperammonemia Status: Acute (11) Hyperammonemia Status: Acute (12) Hypercalcemia Status: Acute (13) Hypercarbia Status: Acute (14) Hypercarbia Status: Acute (15) Hypercarbia Status: Acute (16) Hyperglycemia Status: Acute (17) Hyperglycemia without ketosis Status: Acute (18) Hyperosmolality Status: Acute (19) Hypokalemia Status: Acute (20) Hyponatremia Status: Acute (21) Hyponatremia Status: Acute (22) Hyponatremia Status: Acute (23) Lower extremity weakness Status: Acute (24) Seizure Status: Acute (25) SOB (shortness of breath) Status: Acute (26) Weakness Status: Acute Family History Noncontributory Social History Smoking Status: Never smoker Drug Use: none Marital Status: Housing Status: lives with family Occupation Status: retired Allergies Coded Allergies: Penicillins (Unverified Allergy, Unknown, unknown, 10/01/17) Current Inpatient Medications Current Inpatient Medications Medications (Trade) Dose Ordered Sig/Nanette Route Start Time Stop Time Status Last Admin Dose Admin Glucose (Glucose 40% Gel) 15-30 GRAMS 15 GRAMS... UD PRN PO 10/01/17 09:45 10/31/17 09:44 Glucose (Glucose Chew Tab) 4-8 Tablets 4 Tabl... UD PRN PO 10/01/17 09:45 10/31/17 09:44 Dextrose (Dextrose 50% 50ML Syringe) 25-50ML OF 50% DW IV FOR... UD PRN IV 10/01/17 09:45 10/31/17 09:44 Glucagon (Glucagon Inj) 1 mg UD PRN SQ 10/01/17 09:45 10/31/17 09:44 Heparin Sodium (Porcine) (Heparin Sq 5000 Unit/0.5ml) 5,000 unit Q12 SQ 10/01/17 21:00 10/31/17 20:59 10/02/17 09:54 5,000 UNIT Acetaminophen (Tylenol Tab) 650 mg Q4H PRN PO 10/01/17 12:15 10/31/17 12:14 Ondansetron HCl (Zofran Inj) 4 mg Q6H PRN IV 10/01/17 12:15 10/31/17 12:14 Miscellaneous Information (Icu Protocol For Hyperglycemia) 1 ea PRN PRN N/A 10/01/17 12:15 10/03/17 12:14 Miscellaneous Information (Consult Glycemic Management Pharmacy) 1 ea UD PRN N/A 10/01/17 12:15 10/31/17 12:14 Benzonatate (Tessalon Perles Cap) 200 mg Q8 PO 10/01/17 14:00 10/31/17 13:59 10/02/17 05:41 200 MG Lactulose (Chronulac Syrup) 30 gm TID PO 10/01/17 14:00 10/31/17 13:59 10/02/17 09:52 30 GM Levetiracetam (Keppra Tab) 500 mg BID PO 10/01/17 21:00 10/31/17 20:59 10/02/17 09:52 500 MG Albuterol/ Ipratropium (Duoneb) 3 ml QIDR INH 10/01/17 16:00 10/31/17 15:59 10/02/17 11:19 3 ML Miscellaneous Information (Pharmacist Discharge Med Rec Consult) 1 ea UD PRN N/A 10/01/17 12:45 10/31/17 12:44 Aspirin (Ecotrin Tab) 81 mg QAM PO 10/02/17 09:00 11/01/17 08:59 10/02/17 09:53 81 MG Insulin Human Regular 250 units/ Sodium Chloride 252.5 ml @ 0 mls/hr Q24H IV 10/02/17 10:00 10/02/17 17:00 10/02/17 11:15 2 MLS/HR [place] Carbonate (Lithobid Tab) 300 mg HS PO 10/01/17 21:00 10/31/17 20:59 10/01/17 21:[address] [place] Carbonate ([place] Carbonate Tab) 300 mg QAM PO 10/02/17 09:00 11/01/17 08:59 10/02/17 09:52 300 MG Haloperidol (Haldol Tab) 2 mg BID PO 10/01/17 21:00 10/31/17 20:59 10/01/17 21:31 2 MG Insulin Glargine (Lantus Solostar Pen) 40 units DAILY SC 10/02/17 10:00 11/01/17 09:59 10/02/17 11:16 40 UNITS Insulin Glargine (Lantus Solostar Pen) 20 units HS SC 10/02/17 21:00 11/01/17 20:59 Insulin Aspart (novoLOG ASPART) SLIDING SCALE If C... ACHS SC 10/02/17 11:00 11/01/17 10:59 Insulin Glargine (Lantus Solostar Pen) SEE PROTOCOL TEXT HS SC 10/02/17 21:00 11/01/17 20:59 Miscellaneous Information (Dc Iv Insulin Infusion) 1 ea 10/02/17@1700 ONCE N/A 10/02/17 17:00 10/02/17 17:01 Sodium Chloride 1,000 ml @ 75 mls/hr [id number] IV 10/02/17 11:00 11/01/17 10:59 10/02/17 11:17 75 MLS/HR Review of Systems Constitutional: Patient complains of fatigue Eyes: No vision loss ENT: No hearing loss or vertigo Cardiovascular: No chest pain or palpitations Respiratory: Complains of shortness of breath Neurological: As per history of present illness Psychiatric: History of bipolar disorder with psychosis. Patient indicated that she stopped her medications because Brando told her to do so. A full 10 point review of systems was obtained from this patient with pertinent positives and negatives described in history of present illness and otherwise listed above. All remaining systems were reviewed and are negative. Physical Exam Vital Signs (Past 24 Hrs): Date Time Temp Pulse Resp B/P (MAP) Pulse Ox O2 Delivery O2 Flow Rate FiO2 10/02/17 11:22 85 24 98 Nasal Cannula 2.0 10/02/17 10:00 36.5 80 25 119/64 (82) 97 Nasal Cannula 2.0 10/02/17 08:00 98 Nasal Cannula 2.0 10/02/17 07:22 88 22 96 Nasal Cannula 2.0 10/02/17 07:00 81 20 120/71 (87) 98 Nasal Cannula 2.0 10/02/17 06:00 80 22 132/68 (89) 96 Nasal Cannula 2.0 10/02/17 04:00 96 Nasal Cannula 2.0 10/02/17 03:16 80 22 119/72 (88) 98 2.0 10/02/17 03:01 84 23 117/74 (88) 96 2.0 10/02/17 02:46 84 26 115/72 (86) 95 2.0 10/02/17 02:44 81 24 120/74 (89) 95 2.0 10/02/17 02:16 150 19 96/66 (76) 93 2.0 10/02/17 02:15 163 116/66 10/02/17 02:01 163 19 116/66 (83) 94 2.0 10/02/17 01:47 164 22 111/66 (81) 95 2.0 10/02/17 01:36 164 17 108/66 (80) 96 2.0 10/02/17 01:01 86 22 111/75 (87) 94 2.0 10/02/17 01:00 81 25 94 2.0 10/02/17 00:01 36.5 88 23 146/79 (101) 91 Nasal Cannula 2.0 10/01/17 23:59 94 Nasal Cannula 2.0 10/01/17 22:00 83 19 133/95 (108) 93 Nasal Cannula 3.0 10/01/17 20:00 36.5 82 19 105/48 (67) 94 Nasal Cannula 3.0 10/01/17 20:00 93 Nasal Cannula 3.0 10/01/17 19:03 83 18 97 Nasal Cannula 3.0 10/01/17 18:00 83 19 108/59 (75) 95 Nasal Cannula 3.0 10/01/17 17:00 83 17 109/54 (72) 98 Nasal Cannula 3.0 10/01/17 16:00 85 20 108/59 (75) 97 Nasal Cannula 3.0 10/01/17 16:00 96 Nasal Cannula 3.0 10/01/17 15:37 98 18 93 Nasal Cannula 3.0 10/01/17 14:36 36.5 84 20 106/63 (77) 96 Nasal Cannula 3.0 10/01/17 13:30 82 21 114/56 97 10/01/17 12:38 87 19 95 Room Air 10/01/17 12:20 91 The patient is an overweight elderly female. She is lying comfortably in bed. She is alert and oriented to person and place only. Memory cannot be fully assessed as she is mildly confused. Attention and concentration are impaired. Patient is able to name objects and repeat phrases. She exhibits a normal vocabulary. Visual norris grossly full to confrontation. Visual acuity normal. Pupils equal round react to light and accommodation. Eye movements normal. There is no nystagmus. Facial sensation intact. There is no facial droop or weakness. Hearing intact. Palate elevates to midline. Shoulder shrug strength intact. Tongue protrudes to midline. There is a length-dependent deficit to all sensory modalities. Deep tendon reflexes are diffusely diminished. Plantar responses silent. There is no dysmetria with finger-to- nose or heel to alfaro bilaterally. Ophthalmoscopic examination reveals normal- appearing optic discs and posterior segments. No papilledema or hemorrhages. Carotid pulses normal bilaterally, no bruits to auscultation. Gait station cannot be tested. Muscle strength testing is limited due to poor patient cooperation. However, she does not have a pronator drift. Strength seems grossly intact for all 4 limbs. Muscle tone normal throughout. No atrophy. No abnormal movements appreciated. Laboratory Results Past 24 Hours: 10/02/17 02:34 Red Blood Count 4.65, Mean Corpuscular Volume 91.4 #, Mean Corpuscular Hemoglobin 26.9, Mean Corpuscular Hemoglobin Concent 29.4, Mean Platelet Volume 11.4, Neutrophils (%) (Auto) 68.4, Lymphocytes (%) (Auto) 22.0, Monocytes (%) ( Auto) 8.3, Eosinophils (%) (Auto) 0.8, Basophils (%) (Auto) 0.0, Neutrophils # ( Auto) 4.19, Lymphocytes # (Auto) 1.35, Monocytes # (Auto) 0.51, Eosinophils # ( Auto) 0.05, Basophils # (Auto) 0.00 10/02/17 08:07 Test 10/01/17 12:15 10/01/17 14:31 10/01/17 14:32 10/01/17 21:19 Creatine Kinase MB Ratio (0-3.0) Creatine Kinase MB 1.7 ng/ml (0.5-3.6) Troponin I 0.063 ng/ml (0-0.045) [place] Level < 0.2 mMOL/L (0.6-1.2) Lactic Acid Level 4.1 mmol/L (0.4-2.0) Ammonia 48.1 umol/L (11-32) Test 10/02/17 02:34 10/02/17 08:07 10/02/17 10:23 White Blood Count 6.13 K/uL (4.8-10.8) Red Blood Count 4.65 M/uL (4.2-5.4) Hemoglobin 12.5 g/dL (12.0-16.0) Hematocrit 42.5 % (37-47) Mean Corpuscular Volume 91.4 fL (80-100) Mean Corpuscular Hemoglobin 26.9 pg (25-34) Mean Corpuscular Hemoglobin Concent 29.4 g/dl (32-36) Platelet Count 150 K/uL (130-400) Mean Platelet Volume 11.4 fL (7.4-10.4) Neutrophils (%) (Auto) 68.4 % Lymphocytes (%) (Auto) 22.0 % Monocytes (%) (Auto) 8.3 % Eosinophils (%) (Auto) 0.8 % Basophils (%) (Auto) 0.0 % Neutrophils # (Auto) 4.19 K/uL (1.4-6.5) Lymphocytes # (Auto) 1.35 K/uL (1.2-3.4) Monocytes # (Auto) 0.51 K/uL (0.11-0.59) Eosinophils # (Auto) 0.05 K/uL (0-0.5) Basophils # (Auto) 0.00 K/uL (0-0.2) RDW Standard Deviation 57.5 fL (36.4-46.3) RDW Coefficient of Variation 17.3 % (11.5-14.5) Immature Granulocyte % (Auto) 0.5 % Immature Granulocyte # (Auto) 0.03 K/uL (0.00-0.02) Platelet Estimate NORMAL Giant Platelets 1+ Hypochromasia PRESENT Phosphorus Level 1.7 mg/dl (2.5-4.9) Magnesium Level 2.8 mg/dl (1.8-2.4) Total Bilirubin 0.6 mg/dl (0.2-1) Direct Bilirubin 0.4 mg/dl (0-0.2) Aspartate Amino Transf (AST/SGOT) 24 U/L (15-37) Alanine Aminotransferase (ALT/SGPT) 20 U/L (12-78) Alkaline Phosphatase 127 U/L (45-117) Total Protein 6.8 gm/dl (6.4-8.2) Albumin 2.8 gm/dl (3.4-5.0) Triglycerides Level 82 mg/dl (0-150) Cholesterol Level 69 mg/dl (0-200) HDL Cholesterol 41 mg/dl LDL Cholesterol, Calculated 12 mg/dl VLDL Cholesterol, Calculated 16 mg/dl Cholesterol/HDL Ratio 1.7 Venous Blood pH 7.35 (7.36-7.41) Anion Gap 3.0 mmol/L (3-11) Est Creatinine Clear Calc Drug Dose 54.4 ml/min Estimated GFR () 56.1 Estimated GFR (Non- 48.4 BUN/Creatinine Ratio 17.3 (10-20) Calcium Level 8.5 mg/dl (8.5-10.1) Beta-Hydroxybutyric Acid 1.10 mg/dL (0.2-2.81) Bedside Glucose 315 mg/dl (70-90) Date/Time Source Procedure Growth Status 10/01/17 14:35 Nasal MRSA DNA Surveillance Screen - Final Specimen Negative for MRSA by DNA Probe Complete Impression I do not really find any convincing evidence of a stroke at this time. However , the patient appears to be mildly encephalopathic. Her right upper extremity weakness appears to have resolved. She reportedly had some involuntary movements of the right upper extremity prior to her admission to the hospital. She does have a reported history of seizure disorder. She may have experienced a focal motor seizure with a subsequent Price's paralysis, potentially triggered by severe hyperglycemia. Plan I would recommend an MRI of the brain to exclude a small ischemic infarct. If there is evidence of an acute stroke on her MRI I would recommend obtaining an MRA of the head and neck as well Increase patient's Keppra to 750 milligrams twice daily. Continue with aspirin 81 milligrams per day Please contact me if I may be of further assistance
--- NOTE | 2017-10-02 13:54 | Pharmacy Progress Note ---
Pharmacy Glycemic Short Note 2 Date of Service Oct 02, 2017. OUTPATIENT ANTIDIABETIC REGIMEN: * -O-m-h-t-u-s- -1-4- -u-n-i-t-s- -S-Q- -B-I-D- Lantus 20-40 units SQ BID per . Although pt has not taken any insulin x 3 weeks. * NovoLog 10 units SQ TID PRN BSG >180 mg/dl Item Value Date Time Random Glucose 1082 mg/dl *H 10/01/17 1140 Bedside Glucose 579 mg/dl *H 10/01/17 1354 Bedside Glucose 458 mg/dl *H 10/01/17 1506 Bedside Glucose 405 mg/dl *H 10/01/17 1617 Bedside Glucose 301 mg/dl H 10/01/17 1723 Bedside Glucose 213 mg/dl H 10/01/17 1830 Bedside Glucose 247 mg/dl H 10/01/17 1850 Bedside Glucose 257 mg/dl H 10/01/17 1915 Bedside Glucose 309 mg/dl H 10/01/17 2005 Bedside Glucose 263 mg/dl H 10/01/17 2122 Bedside Glucose 298 mg/dl H 10/01/17 2200 Bedside Glucose 312 mg/dl H 10/02/17 0004 Bedside Glucose 322 mg/dl H 10/02/17 0303 Bedside Glucose 331 mg/dl H 10/02/17 0406 Bedside Glucose 355 mg/dl *H 10/02/17 0754 Bedside Glucose 335 mg/dl H 10/02/17 0911 Bedside Glucose 315 mg/dl H 10/02/17 1023 Bedside Glucose 328 mg/dl H 10/02/17 1129 Bedside Glucose 340 mg/dl H 10/02/17 1223 ASSESSMENT: * 62yo T2DM female known to pharmacy from previous admissions glycemic consults , currently admitted with AMS(r/o stroke) & hyperglycemia/HHS * On admission, Pt initiated on IV insulin infusion in the ER per protocol. Pt received adequate hydration (6-10 liters) over the past 24hrs for HHS * BSG slowly decreased (~50mg/dl per hour) over the past 24hrs to ~ 200-300mg/ dl. Will start a slow transition to SQ basal bolus insulin regimen * Discussed plan with transportation technician and nursing: * Transition per protocol: * Give basal insulin dose (Lantus) and then continue IV insulin infusion per protocol. Will d/c IV insulin infusion when held per calculator or 6 hrs after the initial Lantus dose, whichever happens sooner. * Per , patient normally takes 20-40 units of Lantus SQ BID but previous admissions BSG/insulin data shows much less than this. Since IV insulin infusion is running at ~ 1-2 units/hr with persistent hyperglycemia- agree with provider's order of Lantus 40 units SQ x1. Concern that with switching fluids (removing dextrose) and large initial dose of Lantus, the HS dose may or may not be needed. Will set BSG parameters on the evening dose that that it is given if severe hyperglycemia occurs and is is held if BSGs decline rapidly. * HbA1c is outdated- will re-order but value may be slightly artificially inflated secondary to not taking meds/sustained hyperglycemia x 3 weeks. PLAN FOR INPATIENT GLYCEMIC CONTROL: * Slowly transition from IV to SQ basal bolus insulin regimen * Will d/c IV insulin infusion when held per calculator or 6 hrs after the initial Lantus dose, whichever happens sooner. * Basal insulin * Lantus 40 units SQ daily in AM * Lantus 0-20 units SQ daily at HS if BSG below 180 mg/dl --> 0 units if BSG 180-220 mg/dl --> 10 units if BSG above 220 mg/dl --> 20 units * Bolus insulin * NovoLog per scale ACHS or Q6hrs while NPO * Goal Range: Low 90 mg/dL - High 180 mg/dL * Correction Factor: 15 mg/dL/unit * Nutritional / Prandial insulin per carb ratio of 1 unit per 5 grams CHO consumed
[2017-10-02 13:57] LABS: CALCIUM 8.5 mg/dl (8.5-10.1); CREATININE 1.23 mg/dl (0.60-1.20); POTASSIUM 3.8 mmol/L (3.5-5.1)
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
[2017-10-02] MEDS ORDERED: DC IV INSULIN INFUSION ONE (17:00)
[2017-10-02] MEDS ORDERED: NURSING DECISION MEDICATION ORDER SCH (17:45)
--- NOTE | 2017-10-02 18:59 | Progress Note ---
Progress Note Date of Service Oct 02, 2017. Progress Note for unclear reasons [facility] is not allowing me to current edit/append dr fitzpatrick 's note from today, 10/02/17 attending attestation as follows: Resident Physician Supervision Note: I interviewed and examined the patient. Discussed with Dr. Fitzpatrick and agree with findings and plan as documented in the note. Any exceptions or clarifications are listed here: None Documented By: Jeremiah Lewis still appearing manic. pleasant then discusses that she doesn't have bipolar quite loudly notes it's probably been three weeks since she stopped her bipolar meds , has been getting progressively more manic since. was able to bring her in once medical situation warranted vitals noted nad breathing unlabored no pallor or icterus bipolar w radha causing hyperreligiosity making her stop meds and bipap leading to HHNK/renal failure (from uncontrolled massively elevated sugars) and respiratory acidosis w metabolic compensation (from hypoventilation not using bipap) -continue IVF, insulin, bipap when sleeping, will need psych assistance with radha otherwise as per dr fitzpatrick d/w who expressed appreciation for care
[2017-10-02] MEDS: SODIUM CHLORIDE 0.45% 1000ML 1,000 ML IV SCH (20:36)
[2017-10-02] MEDS ORDERED: LORAZEPAM 2 MG/ML 1 ML VIAL ONE (20:46)
[2017-10-02] MEDS: INSULIN GLARGINE SOLOSTAR 100 UNITS/ML 3 ML PEN SC SCH (20:57)
[2017-10-02] MEDS ORDERED: NURSING VERBAL MED ORDER ONE ×2 (21:15→21:45)
[2017-10-02] MEDS ORDERED: LORAZEPAM 2 MG/ML 1 ML VIAL IV PRN (21:15)
[2017-10-02] MEDS ORDERED: LORAZEPAM INJ 0.5 MG in SYRINGE 0.75 ML IV PRN (21:15)
[2017-10-02] MEDS: LITHIUM CARBONATE SR 300 MG TAB (LITHOBID) PO SCH (22:12)
[2017-10-02] MEDS: LEVETIRACETAM 250 MG TAB PO SCH (22:13)
[2017-10-03] VITALS (29 sets, daily range): BP systolic 84–129; BP diastolic 59–95; PULSE 77–174; TEMP 36.3–37.2; O2SAT 91–100; BMI 40.0
--- NOTE | 2017-10-03 01:38 | Critical Care Progress Note ---
Critical Care Progress Note Date of Service Oct 03, 2017. ICU Day ICU Day Number: [address] Drew Subjective Patient was downgraded from ICU status on 10/02 after an uneventful day. After midnight, the patient was reportedly waxing and waning from an SVT like tachyarrhythmia while on telemetry. She had received a total of 1.5 mg IV Ativan for associated agitation. Eventually, the patient was transferred back to the ICU for closer monitoring in the setting of persistent tachyarrhythmias. On evaluation, the patient is sleeping. She does not respond to voice alone. She is maintaining her oxygen saturations, blood pressure, and heart rate. Objective Physical exam of 10/02/2017 revealed 62-year-old female without any respiratory distress at the moment, vital signs are stable, she does have proptosis bilaterally, poor dentures, no JVP, S1-S2 regular rate and rhythm, lungs are clear, abdomen is benign, left upper extremity AV fistula, edema in the periphery noted. Exam (10/03): VITAL SIGNS - Vital signs and nursing notes were reviewed. GENERAL - 62-year-old female appearing her stated age who is in no acute distress. Sleeping. LUNGS - Chest wall symmetric without accessory muscle use, intercostals retractions, or central cyanosis. Normal vesicular breath sounds CTA B/L. No wheezes, rales, or rhonchi appreciated. CARDIAC - RRR with S1/S2. No murmur, rubs, or gallops appreciated. ABDOMEN - Abdominal contour obese without pulsations or visible masses. BS normoactive all four quadrants. No tenderness, palpable masses, hepatosplenomegaly, or ascites noted. EXTREMITIES - No clubbing or peripheral cyanosis. No pretibial edema present. LUE fistula. NEUROLOGIC - Unable to assess 2/2 sleeping state from Ativan administration. PSYCH - Unable to assess 2/2 sleeping state from Ativan administration. Assessment & Plan 1. SVT, could be AVRT. Nonsustained and asymptomatic. 2. HHNK crisis, resolved. Glucose is better controlled in the range of 350 currently. 3. Schizophrenia, she has been off her medications and not been taking them for the past 21 days. 4. History of seizure disorder. 5. Cardiomegaly, significant on the chest x-ray, echo reports in the past revealed preserved LV with a small pericardial effusion only. 6. Chronic kidney disease used to be on dialysis with left upper extremity AV fistula, she has been off dialysis for the past 8 years. Plan: 1. Will monitor for any sustained tachyrhythmias (SVT/AVRT). Responded to IV metoprolol yesterday, but did take awhile for initial effects. 2. Continue w/ IVF. 3. Agree with cardiology consult to evaluate for recurrent SVT. 4. Will recheck PRP if return of s/s in the setting of recent hypokalemia. 5. Oral intake. 6. Did receive 1.5mg IV Ativan - patient currently obtunded. Will avoid any further sedation if possible. 7. Continue w/ Psych Rx per Psych administration. 8. Watch for lithium level as the patient had a chronic kidney disease. 9. DVT prophylaxis. 10. Physical therapy when appropriate. Level 3 inpatient billing. I have personally evaluated and examined this patient. I agree with assessment and plan of Navin Mueller PA-C. Patient was seen and discussed on multidisciplinary rounds. Patient did have nonsustained ventricular tachycardia. She has a history of systolic congestive heart failure. I have started 12.5 metoprolol orally for the SVT and ventricular tachycardia. Given the heart failure we will give her 20 mEq of Lasix today and I have also optimized her potassium with 60 mEq of K-Dur. We will stop her fluids as her AK I has resolved and institute a fluid restriction of 1.5 L. If increased her DVT prophylaxis to 5000 units of heparin 3 times daily. She is slated to receive her monthly intramuscular Haldol at 1:00 today. I anticipate that the patient's altered sensorium is secondary to refusal to take her lithium and nearing the end of her Haldol injection, obviously we will be reinstituting her lithium checking her electrolytes daily, she will be getting her IM Haldol today. She is not hemodynamically unstable we have instituted a beta-anna and she is stable for downgrade to telemetry status. Consults & Procedures Consultants: Neurology - Dr. Wood Psych - Dr. Peters Data Medications: Current Inpatient Medications Medications (Trade) Dose Ordered Sig/Nanette Route Start Time Stop Time Status Last Admin Dose Admin Glucose (Glucose 40% Gel) 15-30 GRAMS 15 GRAMS... UD PRN PO 10/01/17 09:45 10/31/17 09:44 Glucose (Glucose Chew Tab) 4-8 Tablets 4 Tabl... UD PRN PO 10/01/17 09:45 10/31/17 09:44 Dextrose (Dextrose 50% 50ML Syringe) 25-50ML OF 50% DW IV FOR... UD PRN IV 10/01/17 09:45 10/31/17 09:44 Glucagon (Glucagon Inj) 1 mg UD PRN SQ 10/01/17 09:45 10/31/17 09:44 Heparin Sodium (Porcine) (Heparin Sq 5000 Unit/0.5ml) 5,000 unit Q12 SQ 10/01/17 21:00 10/31/17 20:59 10/02/17 22:15 5,000 UNIT Acetaminophen (Tylenol Tab) 650 mg Q4H PRN PO 10/01/17 12:15 10/31/17 12:14 Ondansetron HCl (Zofran Inj) 4 mg Q6H PRN IV 10/01/17 12:15 10/31/17 12:14 Miscellaneous Information (Icu Protocol For Hyperglycemia) 1 ea PRN PRN N/A 10/01/17 12:15 10/03/17 12:14 Miscellaneous Information (Consult Glycemic Management Pharmacy) 1 ea UD PRN N/A 10/01/17 12:15 10/31/17 12:14 Benzonatate (Tessalon Perles Cap) 200 mg Q8 PO 10/01/17 14:00 10/31/17 13:59 10/02/17 13:24 200 MG Lactulose (Chronulac Syrup) 30 gm TID PO 10/01/17 14:00 10/31/17 13:59 10/02/17 13:25 30 GM Albuterol/ Ipratropium (Duoneb) 3 ml QIDR INH 10/01/17 16:00 10/31/17 15:59 10/02/17 19:01 3 ML Miscellaneous Information (Pharmacist Discharge Med Rec Consult) 1 ea UD PRN N/A 10/01/17 12:45 10/31/17 12:44 Aspirin (Ecotrin Tab) 81 mg QAM PO 10/02/17 09:00 11/01/17 08:59 10/02/17 09:53 81 MG [place] Carbonate (Lithobid Tab) 300 mg HS PO 10/01/17 21:00 10/31/17 20:59 10/01/17 21:33 300 MG [place] Carbonate ([place] Carbonate Tab) 300 mg QAM PO 10/02/17 09:00 11/01/17 08:59 10/02/17 09:52 300 MG Insulin Glargine (Lantus Solostar Pen) 40 units DAILY SC 10/02/17 10:00 11/01/17 09:59 10/02/17 11:16 40 UNITS Insulin Aspart (novoLOG ASPART) SLIDING SCALE If C... ACHS SC 10/02/17 11:00 11/01/17 10:59 10/02/17 17:49 13 UNITS Insulin Glargine (Lantus Solostar Pen) SEE PROTOCOL TEXT HS SC 10/02/17 21:00 11/01/17 20:59 Levetiracetam (Keppra Tab) 750 mg BID PO 10/02/17 21:00 10/31/17 20:59 Haloperidol (Haldol Tab) 2 mg TID PO 10/02/17 21:00 10/31/17 20:59 Haloperidol Decanoate (Haldol Decanoate Inj) 100 mg ONE ONCE IM 10/03/17 13:00 10/03/17 13:01 Sodium Chloride 1,000 ml @ 100 mls/hr Q10H IV 10/02/17 19:15 11/01/17 19:14 10/02/17 20:36 100 MLS/HR Lorazepam 0.5 mg/ Syringe 1 ml @ 1 mls/min Q4H PRN IV 10/02/17 21:15 11/01/17 21:14 Lorazepam (Ativan Inj) 0.5 mg Q4H PRN IV 10/02/17 21:15 11/01/17 21:14 Vital Signs: Date Time Temp Pulse Resp B/P (MAP) Pulse Ox O2 Delivery O2 Flow Rate FiO2 10/03/17 00:55 37.2 95 23 120/95 (103) 98 Nasal Cannula 2.0 10/03/17 00:31 87 23 114/70 (85) 97 10/03/17 00:23 174 35 84/75 (78) 94 10/03/17 00:10 171 40 85/68 (74) 10/03/17 00:01 Nasal Cannula 2.0 10/02/17 23:53 37.1 100 22 105/63 (77) 99 Nasal Cannula 2.0 10/02/17 20:55 106 119/75 (90) 10/02/17 20:51 103 97/77 (84) 93 2.0 10/02/17 20:41 175 99/66 (77) 95 Nasal Cannula 2.0 10/02/17 20:18 177 127/95 (106) 95 Nasal Cannula 2.0 10/02/17 20:00 Nasal Cannula 2.0 10/02/17 19:03 96 20 89 Room Air 10/02/17 18:58 36.5 98 20 107/88 (94) 88 Room Air 10/02/17 18:23 36.7 82 24 98 10/02/17 16:00 98 Room Air 10/02/17 15:17 82 24 99 Nasal Cannula 2.0 10/02/17 14:00 36.7 87 22 113/60 (77) 99 Nasal Cannula 2.0 10/02/17 13:00 86 26 113/68 (83) 99 Nasal Cannula 2.0 10/02/17 12:00 98 Nasal Cannula 2.0 10/02/17 12:00 85 20 124/69 (87) 100 Nasal Cannula 2.0 10/02/17 11:22 85 24 98 Nasal Cannula 2.0 10/02/17 11:00 81 27 134/62 (86) 97 Nasal Cannula 2.0 10/02/17 10:00 36.5 80 25 119/64 (82) 97 Nasal Cannula 2.0 10/02/17 08:00 98 Nasal Cannula 2.0 10/02/17 07:22 88 22 96 Nasal Cannula 2.0 10/02/17 07:00 81 20 120/71 (87) 98 Nasal Cannula 2.0 10/02/17 06:00 80 22 132/68 (89) 96 Nasal Cannula 2.0 10/02/17 04:00 96 Nasal Cannula 2.0 10/02/17 03:16 80 22 119/72 (88) 98 2.0 10/02/17 03:01 84 23 117/74 (88) 96 2.0 10/02/17 02:46 84 26 115/72 (86) 95 2.0 10/02/17 02:44 81 24 120/74 (89) 95 2.0 10/02/17 02:16 150 19 96/66 (76) 93 2.0 10/02/17 02:15 163 116/66 10/02/17 02:01 163 19 116/66 (83) 94 2.0 10/02/17 01:47 164 22 111/66 (81) 95 2.0 10/02/17 01:36 164 17 108/66 (80) 96 2.0 Laboratory Results: Last 24 Hours Test 10/02/17 02:34 10/02/17 03:03 10/02/17 04:06 10/02/17 07:54 White Blood Count 6.13 K/uL Red Blood Count 4.65 M/uL Hemoglobin 12.5 g/dL Hematocrit 42.5 % Mean Corpuscular Volume 91.4 fL Mean Corpuscular Hemoglobin 26.9 pg Mean Corpuscular Hemoglobin Concent 29.4 g/dl Platelet Count 150 K/uL Mean Platelet Volume 11.4 fL Neutrophils (%) (Auto) 68.4 % Lymphocytes (%) (Auto) 22.0 % Monocytes (%) (Auto) 8.3 % Eosinophils (%) (Auto) 0.8 % Basophils (%) (Auto) 0.0 % Neutrophils # (Auto) 4.19 K/uL Lymphocytes # (Auto) 1.35 K/uL Monocytes # (Auto) 0.51 K/uL Eosinophils # (Auto) 0.05 K/uL Basophils # (Auto) 0.00 K/uL RDW Standard Deviation 57.5 fL RDW Coefficient of Variation 17.3 % Immature Granulocyte % (Auto) 0.5 % Immature Granulocyte # (Auto) 0.03 K/uL Platelet Estimate NORMAL Giant Platelets 1+ Hypochromasia PRESENT Venous Blood pH 7.36 Sodium Level 145 mmol/L Potassium Level 4.2 mmol/L Chloride Level 107 mmol/L Carbon Dioxide Level 36 mmol/L Anion Gap 2.0 mmol/L Blood Urea Nitrogen 23 mg/dl Creatinine 1.24 mg/dl Est Creatinine Clear Calc Drug Dose 50.4 ml/min Estimated GFR () 53.9 Estimated GFR (Non- 46.5 BUN/Creatinine Ratio 18.7 Random Glucose 365 mg/dl Calcium Level 9.0 mg/dl Phosphorus Level 1.7 mg/dl Magnesium Level 2.8 mg/dl Total Bilirubin 0.6 mg/dl Direct Bilirubin 0.4 mg/dl Aspartate Amino Transf (AST/SGOT) 24 U/L Alanine Aminotransferase (ALT/SGPT) 20 U/L Alkaline Phosphatase 127 U/L Total Protein 6.8 gm/dl Albumin 2.8 gm/dl Triglycerides Level 82 mg/dl Cholesterol Level 69 mg/dl HDL Cholesterol 41 mg/dl LDL Cholesterol, Calculated 12 mg/dl VLDL Cholesterol, Calculated 16 mg/dl Cholesterol/HDL Ratio 1.7 Beta-Hydroxybutyric Acid 2.53 mg/dL Bedside Glucose 322 mg/dl 331 mg/dl 355 mg/dl Test 10/02/17 08:07 10/02/17 09:11 10/02/17 10:23 10/02/17 11:29 Venous Blood pH 7.35 Sodium Level 147 mmol/L Potassium Level 4.0 mmol/L Chloride Level 107 mmol/L Carbon Dioxide Level 37 mmol/L Anion Gap 3.0 mmol/L Blood Urea Nitrogen 21 mg/dl Creatinine 1.20 mg/dl Est Creatinine Clear Calc Drug Dose 54.4 ml/min Estimated GFR () 56.1 Estimated GFR (Non- 48.4 BUN/Creatinine Ratio 17.3 Random Glucose 385 mg/dl Calcium Level 8.5 mg/dl Beta-Hydroxybutyric Acid 1.10 mg/dL Bedside Glucose 335 mg/dl 315 mg/dl 328 mg/dl Test 10/02/17 12:23 10/02/17 12:56 10/02/17 12:58 10/02/17 13:21 Bedside Glucose 340 mg/dl 315 mg/dl 280 mg/dl Sodium Level 146 mmol/L Potassium Level 3.8 mmol/L Chloride Level 109 mmol/L Carbon Dioxide Level 36 mmol/L Anion Gap 1.0 mmol/L Blood Urea Nitrogen 21 mg/dl Creatinine 1.23 mg/dl Est Creatinine Clear Calc Drug Dose 53.0 ml/min Estimated GFR () 54.4 Estimated GFR (Non- 47.0 BUN/Creatinine Ratio 17.1 Random Glucose 356 mg/dl Calcium Level 8.5 mg/dl Beta-Hydroxybutyric Acid 1.27 mg/dL Test 10/02/17 14:26 10/02/17 15:38 10/02/17 19:54 Bedside Glucose 384 mg/dl 225 mg/dl 178 mg/dl
[2017-10-03] MEDS ORDERED: METOPROLOL TARTRATE 1 MG/ML VIAL IV STA (02:34)
[2017-10-03] MEDS ORDERED: METOPROLOL TARTRATE 1 MG/ML VIAL ONE (02:35)
[2017-10-03 05:28] LABS: BASO % 0.1 %; BASO ABS # 0.01 K/uL (0-0.2); EOS % 1.2 %; EOS ABS # 0.08 K/uL (0-0.5); HEMATOCRIT 43.7 % (37-47); HEMOGLOBIN 12.6 g/dL (12.0-16.0); IG# 0.01 K/uL (0.00-0.02); LYMPH % 18.4 %; LYMPH ABS # 1.23 K/uL (1.2-3.4); MEAN CELL VOLUME 93.2 fL (80-100); MEAN CORPUSCULAR HEMOGLOBIN 26.9 pg (25-34); MEAN CORPUSCULAR HGB CONC 28.8 g/dl (32-36); MEAN PLATELET VOLUME 11.5 fL (7.4-10.4); MONO % 9.4 %; MONO ABS # 0.63 K/uL (0.11-0.59); NEUT % 70.8 %; NEUT ABS # 4.73 K/uL (1.4-6.5); PLATELET COUNT 144 K/uL (130-400); RED CELL DISTRIBUTION WIDTH CV 17.7 % (11.5-14.5); RED CELL DISTRIBUTION WIDTH SD 59.4 fL (36.4-46.3); WHITE BLOOD COUNT 6.69 K/uL (4.8-10.8)
[2017-10-03 05:34] LABS: ALBUMIN 2.6 gm/dl (3.4-5.0); CALCIUM 8.6 mg/dl (8.5-10.1); CREATININE 1.02 mg/dl (0.60-1.20); PHOSPHORUS 2.2 mg/dl (2.5-4.9)
[2017-10-03 05:44] LABS: TOTAL PROTEIN 6.5 gm/dl (6.4-8.2)
[2017-10-03] MEDS: SODIUM CHLORIDE 0.45% 1000ML 1,000 ML IV SCH (05:57)
[2017-10-03] MEDS: BENZONATATE 100MG CAP PO SCH ×3 (05:58→20:50)
[2017-10-03] MEDS: INSULIN ASPART 100 UNITS/ML 3 ML PEN SC SCH ×4 (06:45→20:45)
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
[2017-10-03] MEDS: ALBUT/IPRATROP 3MG/0.5MG NEB 3 ML VIAL INH SCH ×4 (07:21→20:32)
[2017-10-03 08:44] LABS: HEMOGLOBIN A1C 14.3 % (4.5-5.6)
[2017-10-03] MEDS ORDERED: FUROSEMIDE 20 MG TAB PO ONE (09:45)
[2017-10-03] MEDS ORDERED: METOPROLOL TARTRATE 25 MG TAB PO ONE (09:45)
[2017-10-03] MEDS ORDERED: POTASSIUM CHLORIDE 20 MEQ TABCR PO ONE (09:45)
[2017-10-03] MEDS ORDERED: INSULIN GLARGINE SOLOSTAR 100 UNITS/ML 3 ML PEN SC SCH (10:30)
--- NOTE | 2017-10-03 10:38 | Pharmacy Progress Note ---
Pharmacy Glycemic Short Note 2 Date of Service Oct 03, 2017. OUTPATIENT ANTIDIABETIC REGIMEN: * -V-b-p-t-u-s- -1-4- -u-n-i-t-s- -S-Q- -B-I-D- Lantus 20-40 units SQ BID per . Although pt has not taken any insulin x 3 weeks. * NovoLog 10 units SQ TID PRN BSG >180 mg/dl Item Value Date Time Bedside Glucose 109 mg/dl H 10/03/17 0551 Bedside Glucose 178 mg/dl H 10/02/17 1954 Bedside Glucose 225 mg/dl H 10/02/17 1538 Bedside Glucose 384 mg/dl *H 10/02/17 1426 Bedside Glucose 280 mg/dl H 10/02/17 1321 Bedside Glucose 315 mg/dl H 10/02/17 1256 ASSESSMENT: 10/02/17 * 62yo T2DM female known to pharmacy from previous admissions glycemic consults , currently admitted with AMS(r/o stroke) & hyperglycemia/HHS * On admission, Pt initiated on IV insulin infusion in the ER per protocol. Pt received adequate hydration (6-10 liters) over the past 24hrs for HHS * BSG slowly decreased (~50mg/dl per hour) over the past 24hrs to ~ 200-300mg/ dl. Will start a slow transition to SQ basal bolus insulin regimen * Discussed plan with riveting machine operator and nursing: * Transition per protocol: * Give basal insulin dose (Lantus) and then continue IV insulin infusion per protocol. Will d/c IV insulin infusion when held per calculator or 6 hrs after the initial Lantus dose, whichever happens sooner. * Per , patient normally takes 20-40 units of Lantus SQ BID but previous admissions BSG/insulin data shows much less than this. Since IV insulin infusion is running at ~ 1-2 units/hr with persistent hyperglycemia- agree with provider's order of Lantus 40 units SQ x1. Concern that with switching fluids (removing dextrose) and large initial dose of Lantus, the HS dose may or may not be needed. Will set BSG parameters on the evening dose that that it is given if severe hyperglycemia occurs and is is held if BSGs decline rapidly. * HbA1c is outdated- will re-order but value may be slightly artificially inflated secondary to not taking meds/sustained hyperglycemia x 3 weeks. 10/03/17 * Patient successfully transitioned off insulin drip yesterday * Fasting BSG 109 this AM w/ 40 units of Lantus on board and no overnight or HS Novolog given * Patient has required smaller doses of Lantus while hospitalized in the past, given BSG is already down to 109 this AM w/ 40 units of Lantus on board will begin to scale back the AM dose and add HS Lantus per scale should this dose reduction be excessive * The current CF and CR are more aggressive than doses given on prior admissions. Will lessen the doses slightly. * Based upon review of prior admission data, she typically requires 60-80 units/ day when tolerating a diet. PLAN FOR INPATIENT GLYCEMIC CONTROL: * Basal insulin * Lantus 30 units SQ daily in AM (dose reduction) * Lantus 0-20 units SQ daily at HS if BSG below 140 mg/dl --> 0 units if BSG 140-180 mg/dl --> 5 units if BSG above 180 mg/dl --> 10 units * Bolus insulin * NovoLog per scale ACHS or Q6hrs while NPO * Goal Range: Low 110 mg/dL - High 150 mg/dL (lowered range) * Correction Factor: 18 mg/dL/unit (dose reduction) * Nutritional / Prandial insulin per carb ratio of 1 unit per 6 grams CHO consumed (dose reduction)
[2017-10-03] MEDS: HALOPERIDOL 1 MG TAB PO SCH ×3 (11:01→20:48)
[2017-10-03] MEDS: ASPIRIN 81 MG ECTAB PO SCH (11:01)
[2017-10-03] MEDS: LACTULOSE SYRUP 30 GM/45 ML UDP PO SCH ×3 (11:02→20:46)
[2017-10-03] MEDS: LEVETIRACETAM 250 MG TAB PO SCH ×2 (11:02→20:49)
[2017-10-03] MEDS: LITHIUM CARBONATE 300 MG TAB PO SCH (11:04)
[2017-10-03] MEDS ORDERED: HALOPERIDOL DECANOATE INJ 50 MG/ML VIAL IM ONE (13:00)
[2017-10-03] MEDS ORDERED: FUROSEMIDE 40 MG TAB PO ONE (14:30)
[2017-10-03] MEDS: HEPARIN SOD 5000 UNIT/0.5 ML CARP SQ SCH ×2 (16:27→20:55)
[2017-10-03] MEDS: INSULIN GLARGINE SOLOSTAR 100 UNITS/ML 3 ML PEN SC SCH (20:45)
[2017-10-03] MEDS: LITHIUM CARBONATE SR 300 MG TAB (LITHOBID) PO SCH (20:50)
[2017-10-03] MEDS: METOPROLOL TARTRATE 25 MG TAB PO SCH (20:50)
[2017-10-04] VITALS (13 sets, daily range): BP systolic 104–153; BP diastolic 53–84; PULSE 81–96; TEMP 36.4–37.5; O2SAT 92–98; Ht 160 cm; Wt 100.6 kg
[2017-10-04] MEDS: BENZONATATE 100MG CAP PO SCH ×3 (05:33→21:55)
[2017-10-04] MEDS: HEPARIN SOD 5000 UNIT/0.5 ML CARP SQ SCH ×3 (05:34→22:02)
[2017-10-04 06:19] LABS: HEMATOCRIT 43.1 % (37-47); HEMOGLOBIN 12.8 g/dL (12.0-16.0); MEAN CELL VOLUME 91.5 fL (80-100); MEAN CORPUSCULAR HEMOGLOBIN 27.2 pg (25-34); MEAN CORPUSCULAR HGB CONC 29.7 g/dl (32-36); MEAN PLATELET VOLUME 11.9 fL (7.4-10.4); NUCLEATED RED BLOOD CELL ABS 0.03 K/uL (0-0); PLATELET COUNT 172 K/uL (130-400); RED CELL DISTRIBUTION WIDTH CV 17.3 % (11.5-14.5); RED CELL DISTRIBUTION WIDTH SD 57.9 fL (36.4-46.3); WHITE BLOOD COUNT 7.85 K/uL (4.8-10.8)
[2017-10-04 06:24] LABS: CALCIUM 8.7 mg/dl (8.5-10.1); CREATININE 1.14 mg/dl (0.60-1.20); PHOSPHORUS 2.7 mg/dl (2.5-4.9)
[2017-10-04 06:51] LABS: BASO % 0.1 %; BASO ABS # 0.01 K/uL (0-0.2); EOS % 0.9 %; EOS ABS # 0.07 K/uL (0-0.5); IG# 0.02 K/uL (0.00-0.02); LYMPH % 15.3 %; MONO % 11.5 %; NEUT % 71.9 %; NEUT ABS # 5.65 K/uL (1.4-6.5)
[2017-10-04] MEDS: ALBUT/IPRATROP 3MG/0.5MG NEB 3 ML VIAL INH SCH ×4 (07:14→19:06)
[2017-10-04 07:17] LABS: POTASSIUM 4.3 mmol/L (3.5-5.1)
[2017-10-04] MEDS ORDERED: INSULIN GLARGINE SOLOSTAR 100 UNITS/ML 3 ML PEN SC SCH (09:00)
[2017-10-04] MEDS: LITHIUM CARBONATE 300 MG TAB PO SCH (09:00)
[2017-10-04] MEDS: HALOPERIDOL 1 MG TAB PO SCH ×3 (09:04→21:55)
[2017-10-04] MEDS: ASPIRIN 81 MG ECTAB PO SCH (09:04)
[2017-10-04] MEDS: LEVETIRACETAM 250 MG TAB PO SCH ×2 (09:05→21:58)
[2017-10-04] MEDS: LACTULOSE SYRUP 30 GM/45 ML UDP PO SCH ×3 (09:05→21:54)
[2017-10-04] MEDS: METOPROLOL TARTRATE 25 MG TAB PO SCH ×2 (09:05→21:57)
[2017-10-04] MEDS: INSULIN ASPART 100 UNITS/ML 3 ML PEN SC SCH ×4 (09:07→21:00)
--- NOTE | 2017-10-04 10:57 | Pharmacy Progress Note ---
Pharmacy Glycemic Short Note 2 Date of Service Oct 04, 2017. OUTPATIENT ANTIDIABETIC REGIMEN: * -C-k-r-t-u-s- -1-4- -u-n-i-t-s- -S-Q- -B-I-D- Lantus 20-40 units SQ BID per . Although pt has not taken any insulin x 3 weeks. * NovoLog 10 units SQ TID PRN BSG >180 mg/dl Item Value Date Time Random Glucose 108 mg/dl H 10/04/17 0534 Bedside Glucose 85 mg/dl 10/03/17 2043 Bedside Glucose 82 mg/dl 10/03/17 1635 Bedside Glucose 210 mg/dl H 10/03/17 1122 Bedside Glucose 109 mg/dl H 10/03/17 0551 ASSESSMENT: 10/02/17 * 62yo T2DM female known to pharmacy from previous admissions glycemic consults , currently admitted with AMS(r/o stroke) & hyperglycemia/HHS * On admission, Pt initiated on IV insulin infusion in the ER per protocol. Pt received adequate hydration (6-10 liters) over the past 24hrs for HHS * BSG slowly decreased (~50mg/dl per hour) over the past 24hrs to ~ 200-300mg/ dl. Will start a slow transition to SQ basal bolus insulin regimen * Discussed plan with golf club manager and nursing: * Transition per protocol: * Give basal insulin dose (Lantus) and then continue IV insulin infusion per protocol. Will d/c IV insulin infusion when held per calculator or 6 hrs after the initial Lantus dose, whichever happens sooner. * Per , patient normally takes 20-40 units of Lantus SQ BID but previous admissions BSG/insulin data shows much less than this. Since IV insulin infusion is running at ~ 1-2 units/hr with persistent hyperglycemia- agree with provider's order of Lantus 40 units SQ x1. Concern that with switching fluids (removing dextrose) and large initial dose of Lantus, the HS dose may or may not be needed. Will set BSG parameters on the evening dose that that it is given if severe hyperglycemia occurs and is is held if BSGs decline rapidly. * HbA1c is outdated- will re-order but value may be slightly artificially inflated secondary to not taking meds/sustained hyperglycemia x 3 weeks. 10/03/17 * Patient successfully transitioned off insulin drip yesterday * Fasting BSG 109 this AM w/ 40 units of Lantus on board and no overnight or HS Novolog given * Patient has required smaller doses of Lantus while hospitalized in the past, given BSG is already down to 109 this AM w/ 40 units of Lantus on board will begin to scale back the AM dose and add HS Lantus per scale should this dose reduction be excessive * The current CF and CR are more aggressive than doses given on prior admissions. Will lessen the doses slightly. * Based upon review of prior admission data, she typically requires 60-80 units/ day when tolerating a diet. 10/04/17 * BSGs ranged 82-210 over the last 24 hours, in fact, only 1 BSG above 100 in last 24 hrs * Patient is tolerating her diet * Will continue to taper back insulin doses, both basal and prandial doses based upon BSGs lower than desired PLAN FOR INPATIENT GLYCEMIC CONTROL: * Basal insulin * Lantus 25 units SQ daily in AM (dose reduction) * Bolus insulin * NovoLog per scale ACHS or Q6hrs while NPO * Goal Range: Low 110 mg/dL - High 150 mg/dL (no change) * Correction Factor: 20 mg/dL/unit (dose reduction) * Nutritional / Prandial insulin per carb ratio of 1 unit per 7 grams CHO consumed (dose reduction)
--- NOTE | 2017-10-04 11:54 | Psychiatric Progress Notes ---
Progress Note Date of Service Oct 04, 2017. Interval History 62-year-old female with schizoaffective disorder bipolar type who is a current outpatient of Dr. Nadeem Urias at [facility]. She also has multiple medical problems, including seizure disorder, CHF, diabetes, and SVT, presented with weakness and is admitted to the ICU with AMS, severe hyperglycemia, and ARF. Chief Complaint "I'm good". Subjective Patient seen today in follow-up. Initial consult by Dr. Peters 10/02/2017, at which time the patient was delirious, and was restarted on her home dose of lithium. She has been continued on Haldol decanoate and received her injection yesterday, and Dr. Peters added oral haloperidol 2 mg 3 times daily temporarily to assist with mood stabilization. On 10/02/2017 she was transferred to the medical floor, but then developed tachycardia with heart rate in the 170s. She received Lorazepam 1.5 mg IV and became obtunded, and was going in and out of SVT, with periods of hypotension. She was transferred back to the ICU. Yesterday morning, she was disoriented, and continued to have periods of SVT. She has been seen by neurology and they recommended a brain MRI to rule out ischemic infarct, but when transported to MRI yesterday, she refused the study. She told staff yesterday morning that she wanted to call the police and the FBI to protect herself from the rapists, and thought the doctors at the hospital were conspiring to kill her. This morning, per nursing notes, she is alert and oriented 4, and able to ambulate with her walker. On my assessment, she states that her mood is "good," denies paranoia, SI, HI, and hallucinations. She denies problems with sleep or appetite, and denies side effects with restarting her home medications. She abruptly dismisses this physician, stating that she wants to eat her lunch before it gets cold and asks me to leave. Review of Systems Patient refuses to participate in review of systems, states she wants to eat her lunch. Mental Status Exam During interview pt is: alert and oriented (To self and situation), other ( Initially cooperative, but then abruptly asks to end the interview so that she can eat.) Appearance: disheveled (Obese, dressed in a hospital gown which is not fully covering her body) Eye contact is: fair Motor behavior is: steady gait & station (Slow with a walker), no abnormal motor movements Speech: other (At times speaks clearly, other times speech is garbled and difficult to understand) Affect: mood congruent (Irritable edge) Mood is: other ("I am good") Thought process: goal directed Thought content: reality based without delusions Suicidal thought are: denied Homicidal thoughts are: denied Hallucinations: denies auditory, denies visual Insight: impaired Judgement: impaired Impression 62-year-old female with schizoaffective affective disorder bipolar type and multiple medical problems who is admitted with encephalopathy and severe hyperglycemia in the setting of medication noncompliance. [place] level was not detectable on admission and had reportedly not been taking her medications for approximately 3 weeks. She has been restarted on her home dose of lithium, oral Haldol added for mood stabilization, and received her monthly Haldol Decanoate injection on 10/03/2017. Diagnoses: Delirium secondary to hyperglycemia; schizoaffective disorder, bipolar type by history Plan (1) Schizoaffective disorder, bipolar type without good prognostic features -Agree with restarting lithium carbonate 300 mg every morning and lithium carbonate ER 300 mg nightly which is her home regimen. would benefit from frequent monitoring such as monthly li and renal panel given renal insufficiency and also to ensure regular compliance. -We will increase oral Haldol to 2 mg p.o. 3 times daily temporarily for additional antipsychotic effect and mood stabilization as it appears she recently decompensated following medication noncompliance -We will order Haldol decanoate 100 mg injection for tomorrow to remain in compliance with her outpatient regimen -We will coordinate with her outpatient provider -Will follow 10/04 -Continue home dose of lithium, and received Haldol decanoate yesterday. Will decrease oral haloperidol to 2 mg twice daily, will continue to taper off of this as she stabilizes. -She will need to follow up with Dr. Urias at [facility] [place] after discharge , appointment can be rescheduled once we have a better idea of her discharge date. (2) Altered mental status -Delirium precautions, encourage sleep overnight and wakefulness during the day , reorientation and reassurance as needed Visit Code E&M Code: 15131 Data Vital Signs Last 24 Hrs: Date Time Temp Pulse Resp B/P (MAP) Pulse Ox O2 Delivery O2 Flow Rate FiO2 10/04/17 08:00 Nasal Cannula 2.0 10/04/17 07:30 37.1 86 14 118/81 (93) 96 Nasal Cannula 2.0 10/04/17 07:16 88 18 96 Nasal Cannula 2.0 10/04/17 04:00 36.8 95 18 104/73 (83) 98 Nasal Cannula 2.0 10/04/17 04:00 98 Nasal Cannula 2.0 10/03/17 23:59 94 Nasal Cannula 2.0 10/03/17 23:59 36.3 96 20 100/62 (75) 94 Nasal Cannula 2.0 10/03/17 20:34 103 18 96 Nasal Cannula 2.0 10/03/17 20:00 98 Nasal Cannula 2.0 10/03/17 20:00 36.8 91 20 116/75 (89) 98 Nasal Cannula 2.0 10/03/17 16:00 Nasal Cannula 2.0 10/03/17 16:00 37.0 89 19 120/67 (84) 98 Nasal Cannula 2.0 10/03/17 15:25 92 20 96 Nasal Cannula 2.0 10/03/17 14:02 19 110/76 (87) 94 Nasal Cannula 2.0 10/03/17 12:15 82 21 106/64 (78) 98 Nasal Cannula 2.0 10/03/17 12:00 Nasal Cannula 2.0 10/03/17 12:00 86 22 102/84 (90) 99 Nasal Cannula 2.0 Meds Administered Last 24 Hrs: Meds Administered (Past 24Hrs) Medications (Trade) Dose Ordered Sig/Nanette Route Start Time Stop Time Status Last Admin Dose Admin Miscellaneous Information (Dc Iv Insulin Infusion) 1 ea 10/02/17@1700 ONCE N/A 10/02/17 17:00 10/02/17 17:01 DC 10/02/17 17:00 1 EA Levetiracetam (Keppra Tab) 750 mg BID PO 10/02/17 21:00 10/31/17 20:59 10/04/17 09:05 750 MG Haloperidol (Haldol Tab) 2 mg TID PO 10/02/17 21:00 10/31/17 20:59 10/04/17 09:04 2 MG Haloperidol Decanoate (Haldol Decanoate Inj) 100 mg ONE ONCE IM 10/03/17 13:00 10/03/17 13:01 DC 10/03/17 11:56 100 MG Sodium Chloride 1,000 ml @ 100 mls/hr Q10H IV 10/02/17 19:15 10/03/17 09:35 DC 10/03/17 05:57 100 MLS/HR Lorazepam (Ativan Inj) 2 mg STK-MED ONCE .ROUTE 10/02/17 20:46 10/02/17 20:47 DC 10/02/17 20:52 0.5 MG Metoprolol Tartrate (Lopressor Iv) 5 mg STK-MED ONCE .ROUTE 10/03/17 02:35 10/03/17 02:36 DC 10/03/17 02:44 5 MG Metoprolol Tartrate (Lopressor Tab) 12.5 mg BID PO 10/03/17 21:00 11/02/17 20:59 10/04/17 09:05 12.5 MG Metoprolol Tartrate (Lopressor Tab) 12.5 mg EXTRA DOSE ONCE PO 10/03/17 09:45 10/03/17 09:46 DC 10/03/17 11:00 12.5 MG Potassium Chloride (Klor-Con Tab) 60 meq NOW ONCE PO 10/03/17 09:45 10/03/17 09:46 DC 10/03/17 11:18 60 MEQ Furosemide (Lasix Tab) 20 mg NOW ONCE PO 10/03/17 09:45 10/03/17 09:46 DC 10/03/17 11:00 20 MG Heparin Sodium (Porcine) (Heparin Sq 5000 Unit/0.5ml) 5,000 unit Q8 SQ 10/03/17 15:00 11/02/17 14:59 10/04/17 05:34 5,000 UNIT Insulin Glargine (Lantus Solostar Pen) 30 units DAILY SC 10/03/17 10:30 10/04/17 06:33 DC 10/03/17 11:09 30 UNITS Furosemide (Lasix Tab) 40 mg NOW ONCE PO 10/03/17 14:30 10/03/17 14:31 DC 10/03/17 16:24 40 MG Insulin Glargine (Lantus Solostar Pen) 25 units DAILY SC 10/04/17 09:00 11/03/17 08:59 10/04/17 09:08 25 UNITS Lab Results Last 24 Hrs: Last 24 Hours Test 10/03/17 16:35 10/03/17 20:43 10/04/17 05:34 10/04/17 06:50 Bedside Glucose 82 mg/dl 85 mg/dl White Blood Count 7.85 K/uL Red Blood Count 4.71 M/uL Hemoglobin 12.8 g/dL Hematocrit 43.1 % Mean Corpuscular Volume 91.5 fL Mean Corpuscular Hemoglobin 27.2 pg Mean Corpuscular Hemoglobin Concent 29.7 g/dl Platelet Count 172 K/uL Mean Platelet Volume 11.9 fL Neutrophils (%) (Auto) 71.9 % Lymphocytes (%) (Auto) 15.3 % Monocytes (%) (Auto) 11.5 % Eosinophils (%) (Auto) 0.9 % Basophils (%) (Auto) 0.1 % Neutrophils # (Auto) 5.65 K/uL Lymphocytes # (Auto) 1.20 K/uL Monocytes # (Auto) 0.90 K/uL Eosinophils # (Auto) 0.07 K/uL Basophils # (Auto) 0.01 K/uL RDW Standard Deviation 57.9 fL RDW Coefficient of Variation 17.3 % Immature Granulocyte % (Auto) 0.3 % Immature Granulocyte # (Auto) 0.02 K/uL Nucleated RBC Absolute Count (auto) 0.03 K/uL Nucleated Red Blood Cells % 0.3 % Sodium Level 143 mmol/L Potassium Level mmol/L 4.3 mmol/L Chloride Level 106 mmol/L Carbon Dioxide Level 37 mmol/L Anion Gap 0.0 mmol/L Blood Urea Nitrogen 21 mg/dl Creatinine 1.14 mg/dl Est Creatinine Clear Calc Drug Dose 58.1 ml/min Estimated GFR () 59.7 Estimated GFR (Non- 51.5 BUN/Creatinine Ratio 18.5 Random Glucose 108 mg/dl Calcium Level 8.7 mg/dl Phosphorus Level 2.7 mg/dl Magnesium Level mg/dl 2.5 mg/dl
[2017-10-04] MEDS ORDERED: FUROSEMIDE 40 MG TAB PO ONE (12:30)
[2017-10-04 17:28] LABS: TSI 144 % baseline (<140)
[2017-10-04] MEDS: INSULIN GLARGINE SOLOSTAR 100 UNITS/ML 3 ML PEN SC SCH (21:00)
[2017-10-04] MEDS: LITHIUM CARBONATE SR 300 MG TAB (LITHOBID) PO SCH (21:56)
--- NOTE | 2017-10-04 23:24 | Family Medicine Progress Note ---
Progress Note Date of Service Oct 04, 2017. Subjective Pt evaluation today including: conversation w/ patient, conversation w/ family , physical exam, chart review, lab review, review of studies, conversation w/ biztalk consultant, review of inpatient medication list Patient sleeping, rouseable but returns to sleep during AM assessment. At reassessment midday, patient is sitting in chair. She states she is feeling better. Although she is disoriented she is able to use clues around the room to re-orient herself. Poor historian but denies fevers/chills, headaches, CP, palpitations, dyspnea, abdominal pain. Continuing to complain about right hand weakness/previous tremors. States she is sleeping well and tolerating diet without nausea or vomiting, but having some issues with swallowing. Denies issues with voiding and stooling. ROS is unremarkable except as noted above. Objective Vital Signs Date Time Temp Pulse Resp B/P (MAP) Pulse Ox O2 Delivery O2 Flow Rate FiO2 10/04/17 20:23 36.4 96 20 153/53 (86) 97 Nasal Cannula 2.0 10/04/17 20:00 95 Room Air Nasal Cannula 10/04/17 19:08 95 18 94 Nasal Cannula 2.0 10/04/17 16:28 36.7 81 20 107/72 (84) 98 Nasal Cannula 2.0 10/04/17 16:09 83 18 92 Nasal Cannula 2.0 10/04/17 16:00 95 Room Air Nasal Cannula 10/04/17 15:36 36.8 87 18 111/65 (80) 95 Nasal Cannula 2.0 10/04/17 12:05 83 18 92 Nasal Cannula 2.0 10/04/17 11:30 37.1 83 16 112/84 (93) 97 Nasal Cannula 2.0 10/04/17 11:30 Nasal Cannula 2.0 10/04/17 08:00 Nasal Cannula 2.0 10/04/17 07:30 37.1 86 14 118/81 (93) 96 Nasal Cannula 2.0 10/04/17 07:16 88 18 96 Nasal Cannula 2.0 10/04/17 04:00 36.8 95 18 104/73 (83) 98 Nasal Cannula 2.0 10/04/17 04:00 98 Nasal Cannula 2.0 10/03/17 23:59 94 Nasal Cannula 2.0 10/03/17 23:59 36.3 96 20 100/62 (75) 94 Nasal Cannula 2.0 10/03/17 20:34 103 18 96 Nasal Cannula 2.0 Physical Exam Notes: General Appearance: WD/WN, no apparent distress, + obese Eyes: normal inspection, + pertinent finding (bilateral proptosis - chronic) ENT: hearing grossly normal Respiratory/Chest: normal breath sounds, no respiratory distress, no accessory muscle use Cardiovascular: regular rate, rhythm, no murmur Abdomen: normal bowel sounds, non tender, soft Extremities: no calf tenderness, + pedal edema (+1 to mid alfaro), + pertinent finding (right hand swollen - site of multiple IVs) 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: no motor/sensory deficits (mild right sided upper extremity weakness - diminished street worker only strength 4-5/5), alert, + disoriented Skin: normal color, warm/dry, no rash Laboratory Results Results Past 24 Hours Test 10/03/17 20:43 10/04/17 05:34 10/04/17 06:31 10/04/17 06:50 Range/Units Bedside Glucose 85 85 70-90 mg/dl White Blood Count 7.85 4.8-10.8 K/uL Red Blood Count 4.71 4.2-5.4 M/uL Hemoglobin 12.8 12.0-16.0 g/dL Hematocrit 43.1 37-47 % Mean Corpuscular Volume 91.5 80-100 fL Mean Corpuscular Hemoglobin 27.2 25-34 pg Mean Corpuscular Hemoglobin Concent 29.7 32-36 g/dl Platelet Count 172 130-400 K/uL Mean Platelet Volume 11.9 7.4-10.4 fL Neutrophils (%) (Auto) 71.9 % Lymphocytes (%) (Auto) 15.3 % Monocytes (%) (Auto) 11.5 % Eosinophils (%) (Auto) 0.9 % Basophils (%) (Auto) 0.1 % Neutrophils # (Auto) 5.65 1.4-6.5 K/uL Lymphocytes # (Auto) 1.20 1.2-3.4 K/uL Monocytes # (Auto) 0.90 0.11-0.59 K/uL Eosinophils # (Auto) 0.07 0-0.5 K/uL Basophils # (Auto) 0.01 0-0.2 K/uL RDW Standard Deviation 57.9 36.4-46.3 fL RDW Coefficient of Variation 17.3 11.5-14.5 % Immature Granulocyte % (Auto) 0.3 % Immature Granulocyte # (Auto) 0.02 0.00-0.02 K/uL Nucleated RBC Absolute Count (auto) 0.03 0-0 K/uL Nucleated Red Blood Cells % 0.3 % Sodium Level 143 136-145 mmol/L Potassium Level 4.3 3.5-5.1 mmol/L Chloride Level 106 98-107 mmol/L Carbon Dioxide Level 37 21-32 mmol/L Anion Gap 0.0 3-11 mmol/L Blood Urea Nitrogen 21 7-18 mg/dl Creatinine 1.14 0.60-1.20 mg/dl Est Creatinine Clear Calc Drug Dose 58.1 ml/min Estimated GFR () 59.7 Estimated GFR (Non- 51.5 BUN/Creatinine Ratio 18.5 10-20 Random Glucose 108 70-99 mg/dl Calcium Level 8.7 8.5-10.1 mg/dl Phosphorus Level 2.7 2.5-4.9 mg/dl Magnesium Level 2.5 1.8-2.4 mg/dl Test 10/04/17 11:17 10/04/17 16:27 10/04/17 16:49 Range/Units Bedside Glucose 92 67 87 70-90 mg/dl Assessment and Plan 62 year old female with schizophrenia presents with new right sided arm weakness after stopping her medications as "Brando told her to stop her medications" Right arm weakness / seizure disorder - Substantially improved since admission. Possible focal motor seizure with a subsequent Price's paralysis precipitated by severe hyperglycemia - CT head negative. - Aspirin started - continue. - Appreciate neurology recommendations - Keppra increased to 750mg BID - MRI brain combo pending to r/o stroke - patient refusing. SVT - Intermittent with spontaneous conversion to SR. - Patient asymptomatic - Referral to outpatient cardiology for consideration of EP study - Started scheduled metoprolol - Trend BMP/Mg/PO4 and replete as necessary Hyperosmolar Hyperglycemic state (HHS/HHNK) - Appreciate glycemic control recommendations. - Patient transitioned from IV to SQ basal bolus insulin regimen. Glucose now between 100-200 and euvolemic, - IVF discontinued as patient tolerating PO. S/p 60mg total furosemide given degree of fluid overload + KCl supplementation. - Trend BMP Type 2 diabetes mellitus - Appreciate glycemic control with transition off IV insulin - Continue Lantus 30units daily + ISS - Diet: T2DM Acute renal failure (Hx of needing dialysis) - Creatinine normalized, 1.02 today - Trend BMP Hypercapnic respiratory acidosis suspect related to sleep apnea - She does not wear her CPAP at home Acute radha with known Schizophrenia with Bipolar - Non compliance - off her usual medications (lithium level undetected at admission) - Psychiatry consulted, recs appreciated - Restarted home doses of lithium (lithium carbonate 300 mg every morning and lithium carbonate ER 300 mg nightly) - Increased PO haloperidol to 2mg TID temporarily for additional antipsychotic effect and s/p Haldol decanoate 100 mg injection 10/02 in compliance with her outpatient regimen. Today reduced Haliperidol to 2mg BID, - Per psych, plans to continue to taper off of this as she stabilizes, with follow up with Dr. Urias at [facility] [place] after discharge. Bilateral proptosis (longstanding as per Dr Lewis) - TSH and free T4 WNL, free T3 borderline normal. Thyroid stimulating Ig level pending - Most recent TSH normal however can be euthyroid with grave's - no known thyroid stimulating antibodies found in chart therefore will for this and need for outpatient follow up VTE Prophylaxis - Heparin Q12H 5000 units Code - DNR Resident Physician Supervision Note: I was present with Dr. Franklin during the history and exam. I discussed the case with the resident and agree with the findings and plan as documented in the note. Documented By: Bob Spann Continued [facility] stay due to: abnormal vital signs Discharge planning: home Resident Tracking Resident Involvement: Resident Care Provided Care Provided: Adult Hospital Medicine
[2017-10-05] VITALS (16 sets, daily range): BP systolic 107–117; BP diastolic 54–74; PULSE 68–92; TEMP 36.5–37.1; O2SAT 86–97
[2017-10-05 05:23] LABS: BASO % 0.1 %; BASO ABS # 0.01 K/uL (0-0.2); EOS % 1.5 %; EOS ABS # 0.11 K/uL (0-0.5); HEMATOCRIT 40.7 % (37-47); IG# 0.03 K/uL (0.00-0.02); LYMPH ABS # 0.86 K/uL (1.2-3.4); MEAN CELL VOLUME 91.5 fL (80-100); MEAN CORPUSCULAR HGB CONC 29.5 g/dl (32-36); MEAN PLATELET VOLUME 11.4 fL (7.4-10.4); MONO % 12.2 %; MONO ABS # 0.87 K/uL (0.11-0.59); NEUT % 73.8 %; NEUT ABS # 5.28 K/uL (1.4-6.5); PLATELET COUNT 191 K/uL (130-400); RED CELL DISTRIBUTION WIDTH CV 17.7 % (11.5-14.5); RED CELL DISTRIBUTION WIDTH SD 58.6 fL (36.4-46.3); WHITE BLOOD COUNT 7.16 K/uL (4.8-10.8)
[2017-10-05] MEDS: BENZONATATE 100MG CAP PO SCH ×3 (05:38→21:54)
[2017-10-05] MEDS: HEPARIN SOD 5000 UNIT/0.5 ML CARP SQ SCH ×3 (05:43→22:00)
[2017-10-05 05:47] LABS: CREATININE 1.07 mg/dl (0.60-1.20); PHOSPHORUS 2.8 mg/dl (2.5-4.9); POTASSIUM 3.8 mmol/L (3.5-5.1)
[2017-10-05] MEDS: ALBUT/IPRATROP 3MG/0.5MG NEB 3 ML VIAL INH SCH ×4 (07:00→19:10)
[2017-10-05] MEDS: LACTULOSE SYRUP 30 GM/45 ML UDP PO SCH ×3 (07:50→21:03)
[2017-10-05] MEDS: ASPIRIN 81 MG ECTAB PO SCH (07:50)
[2017-10-05] MEDS: HALOPERIDOL 1 MG TAB PO SCH ×2 (07:51→21:04)
[2017-10-05] MEDS: METOPROLOL TARTRATE 25 MG TAB PO SCH ×2 (07:52→21:06)
[2017-10-05] MEDS: LEVETIRACETAM 250 MG TAB PO SCH ×2 (07:52→21:05)
[2017-10-05] MEDS: LITHIUM CARBONATE 300 MG TAB PO SCH (07:52)
[2017-10-05] MEDS: INSULIN ASPART 100 UNITS/ML 3 ML PEN SC SCH ×4 (07:55→21:00)
[2017-10-05] MEDS ORDERED: COUGH DROP (SUGAR FREE) LOZ 24 LOZ/1 BOX LOZ PRN (10:30)
--- NOTE | 2017-10-05 10:48 | Pharmacy Progress Note ---
Pharmacy Glycemic Short Note 2 Date of Service Oct 05, 2017. OUTPATIENT ANTIDIABETIC REGIMEN: * -L-t-e-t-u-s- -1-4- -u-n-i-t-s- -S-Q- -B-I-D- Lantus 20-40 units SQ BID per . Although pt has not taken any insulin x 3 weeks. * NovoLog 10 units SQ TID PRN BSG >180 mg/dl Item Value Date Time Bedside Glucose 101 mg/dl H 10/05/17 0644 Bedside Glucose 79 mg/dl 10/05/17 0613 Bedside Glucose 50 mg/dl *L 10/05/17 0551 Bedside Glucose 139 mg/dl H 10/04/17 2024 Bedside Glucose 87 mg/dl 10/04/17 1649 Bedside Glucose 67 mg/dl *L 10/04/17 1627 Bedside Glucose 92 mg/dl H 10/04/17 1117 Bedside Glucose 85 mg/dl 10/04/17 0631 ASSESSMENT: 10/02/17 * 62yo T2DM female known to pharmacy from previous admissions glycemic consults , currently admitted with AMS(r/o stroke) & hyperglycemia/HHS * On admission, Pt initiated on IV insulin infusion in the ER per protocol. Pt received adequate hydration (6-10 liters) over the past 24hrs for HHS * BSG slowly decreased (~50mg/dl per hour) over the past 24hrs to ~ 200-300mg/ dl. Will start a slow transition to SQ basal bolus insulin regimen * Discussed plan with sanding line operator and nursing: * Transition per protocol: * Give basal insulin dose (Lantus) and then continue IV insulin infusion per protocol. Will d/c IV insulin infusion when held per calculator or 6 hrs after the initial Lantus dose, whichever happens sooner. * Per , patient normally takes 20-40 units of Lantus SQ BID but previous admissions BSG/insulin data shows much less than this. Since IV insulin infusion is running at ~ 1-2 units/hr with persistent hyperglycemia- agree with provider's order of Lantus 40 units SQ x1. Concern that with switching fluids (removing dextrose) and large initial dose of Lantus, the HS dose may or may not be needed. Will set BSG parameters on the evening dose that that it is given if severe hyperglycemia occurs and is is held if BSGs decline rapidly. * HbA1c is outdated- will re-order but value may be slightly artificially inflated secondary to not taking meds/sustained hyperglycemia x 3 weeks. 10/03/17 * Patient successfully transitioned off insulin drip yesterday * Fasting BSG 109 this AM w/ 40 units of Lantus on board and no overnight or HS Novolog given * Patient has required smaller doses of Lantus while hospitalized in the past, given BSG is already down to 109 this AM w/ 40 units of Lantus on board will begin to scale back the AM dose and add HS Lantus per scale should this dose reduction be excessive * The current CF and CR are more aggressive than doses given on prior admissions. Will lessen the doses slightly. * Based upon review of prior admission data, she typically requires 60-80 units/ day when tolerating a diet. 10/04/17 * BSGs ranged 82-210 over the last 24 hours, in fact, only 1 BSG above 100 in last 24 hrs * Patient is tolerating her diet * Will continue to taper back insulin doses, both basal and prandial doses based upon BSGs lower than desired 10/05/17 * Patient has experienced two episodes of hypoglycemia in the past 24 hours despite titrating insulin doses down yesterday * BSGs have ranged 45-139 over the last 24 hours. Only 1 BSG above 100 in last 24 hours. Hypoglycemic events were likely secondary to excess basal insulin. * Will hold Lantus insulin this AM. Move dosing time to bedtime and reduce dose by 50%. * Will also reduce the prandial and correctional insulin dose and raise the goal range to lessen rapid-acting insulin doses today PLAN FOR INPATIENT GLYCEMIC CONTROL: * Basal insulin * Lantus 12 units SQ daily in PM (dose reduction); Hold if BSG less than 120 * Bolus insulin * NovoLog per scale ACHS or Q6hrs while NPO * Goal Range: Low 120 mg/dL - High 150 mg/dL (no change) * Correction Factor: 30 mg/dL/unit (dose reduction) * Nutritional / Prandial insulin per carb ratio of 1 unit per 9 grams CHO consumed (dose reduction) Discharge Recommendations: * Patient's insulin needs this hospital admission are much less than outpatient needs. One needs to question the patient's compliance with insulin injections and diet as an outpt based upon the contrasting insulin needs. I would not feel comfortable recommending she resume the reported outpt regimen on discharge as she is only requiring 35-45units of insulin per day with current dietary habits. Would recommend discharging patient on the same inpatient Lantus dose and using lower doses of Novolog with meals based upon latest BSG data on day of discharge. She will require close f/u within a week of discharge for insulin titration should she require higher doses on discharge based upon her compliance and dietary habits.
[2017-10-05] MEDS ORDERED: METOPROLOL TARTRATE 25 MG TAB PO ONE (12:30)
--- NOTE | 2017-10-05 12:43 | Family Medicine Progress Note ---
Progress Note Date of Service Oct 05, 2017. Subjective Pt evaluation today including: conversation w/ patient, physical exam, chart review, lab review, review of studies, conversation w/ events solutions consultant, review of inpatient medication list Patient awake and oriented. Complaining of dry mouth and discomfort on tongue with difficulty swallowing. Otherwise denies other discomfort. Denies fevers/ chills, headaches, CP, palpitations, dyspnea, abdominal pain. She is tolerating diet without nausea or vomiting, and says she has no issues with voiding and stooling appropriately. ROS is unremarkable except as noted above. Objective Vital Signs Date Time Temp Pulse Resp B/P (MAP) Pulse Ox O2 Delivery O2 Flow Rate FiO2 10/05/17 12:00 91 Room Air 2.0 10/05/17 11:15 92 18 86 Nasal Cannula 2.0 10/05/17 10:39 36.5 90 20 111/67 (82) 96 Nasal Cannula 2.0 10/05/17 08:00 91 Room Air 2.0 10/05/17 07:44 36.8 90 20 117/74 (88) 91 Room Air 10/05/17 07:03 90 18 97 Nasal Cannula 2.0 10/05/17 04:00 95 Room Air Nasal Cannula 10/05/17 03:35 36.9 90 18 116/68 (84) 96 Nasal Cannula 2.0 10/05/17 00:00 95 Room Air Nasal Cannula 10/04/17 23:43 37.5 84 20 113/68 (83) 94 Nasal Cannula 2.0 10/04/17 20:23 36.4 96 20 153/53 (86) 97 Nasal Cannula 2.0 10/04/17 20:00 95 Room Air Nasal Cannula 10/04/17 19:08 95 18 94 Nasal Cannula 2.0 10/04/17 16:28 36.7 81 20 107/72 (84) 98 Nasal Cannula 2.0 10/04/17 16:09 83 18 92 Nasal Cannula 2.0 10/04/17 16:00 95 Room Air Nasal Cannula 10/04/17 15:36 36.8 87 18 111/65 (80) 95 Nasal Cannula 2.0 Physical Exam Notes: General Appearance: WD/WN, no apparent distress, + obese Eyes: normal inspection, + pertinent finding (bilateral proptosis - chronic) ENT: hearing grossly normal + pertinent finding (no evidence of candidiasis on tongue or throat, no posterior oropharyngeal erythema appreciated) Respiratory/Chest: normal breath sounds, no respiratory distress, no accessory muscle use Cardiovascular: regular rate, rhythm, no murmur Abdomen: normal bowel sounds, non tender, soft Extremities: no calf tenderness, + pertinent finding (improved edema in lower extremities) 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: no motor/sensory deficits (mild right sided upper extremity weakness - diminished rhinestone setter only strength 4-5/5), alert, oriented x 3 Skin: normal color, warm/dry, no rash Laboratory Results Results Past 24 Hours Test 10/04/17 16:27 10/04/17 16:49 10/04/17 20:24 10/05/17 04:45 Range/Units Bedside Glucose 67 87 139 70-90 mg/dl White Blood Count 7.16 4.8-10.8 K/uL Red Blood Count 4.45 4.2-5.4 M/uL Hemoglobin 12.0 12.0-16.0 g/dL Hematocrit 40.7 37-47 % Mean Corpuscular Volume 91.5 80-100 fL Mean Corpuscular Hemoglobin 27.0 25-34 pg Mean Corpuscular Hemoglobin Concent 29.5 32-36 g/dl Platelet Count 191 130-400 K/uL Mean Platelet Volume 11.4 7.4-10.4 fL Neutrophils (%) (Auto) 73.8 % Lymphocytes (%) (Auto) 12.0 % Monocytes (%) (Auto) 12.2 % Eosinophils (%) (Auto) 1.5 % Basophils (%) (Auto) 0.1 % Neutrophils # (Auto) 5.28 1.4-6.5 K/uL Lymphocytes # (Auto) 0.86 1.2-3.4 K/uL Monocytes # (Auto) 0.87 0.11-0.59 K/uL Eosinophils # (Auto) 0.11 0-0.5 K/uL Basophils # (Auto) 0.01 0-0.2 K/uL RDW Standard Deviation 58.6 36.4-46.3 fL RDW Coefficient of Variation 17.7 11.5-14.5 % Immature Granulocyte % (Auto) 0.4 % Immature Granulocyte # (Auto) 0.03 0.00-0.02 K/uL Sodium Level 141 136-145 mmol/L Potassium Level 3.8 3.5-5.1 mmol/L Chloride Level 106 98-107 mmol/L Carbon Dioxide Level 36 21-32 mmol/L Anion Gap -1.0 3-11 mmol/L Blood Urea Nitrogen 21 7-18 mg/dl Creatinine 1.07 0.60-1.20 mg/dl Est Creatinine Clear Calc Drug Dose 62.0 ml/min Estimated GFR () 64.4 Estimated GFR (Non- 55.6 BUN/Creatinine Ratio 19.6 10-20 Random Glucose 45 70-99 mg/dl Calcium Level 9.0 8.5-10.1 mg/dl Phosphorus Level 2.8 2.5-4.9 mg/dl Magnesium Level 2.6 1.8-2.4 mg/dl Test 10/05/17 05:51 10/05/17 06:13 10/05/17 06:44 10/05/17 10:45 Range/Units Bedside Glucose 50 79 101 150 70-90 mg/dl Assessment and Plan 62 year old female with schizophrenia presents with new right sided arm weakness after stopping her medications as "Brando told her to stop her medications" SVT - Intermittent. Spontaneous conversion to SR. Patient asymptomatic. Episodes initially lasting 45min. A single 14min episode occurred last night. - Increased metoprolol from 12.5 to 25mg BID - Continue to monitor in telemetry, even with ambulation to assess for arrhythmia with exertion - Trend BMP/Mg/PO4 and replete as necessary - Cardiology consulted Right arm weakness / seizure disorder - Substantially improved since admission. CT head negative. Possible focal motor seizure with a subsequent Price's paralysis precipitated by severe hyperglycemia. Patient refused MRI brain combo to r/o stroke. - Appreciate neurology recommendations - Continue aspirin and increased dose Keppra 750mg BID - PT/OT evals Type 2 diabetes mellitus - Hyperosmolar Hyperglycemic state (HHS/HHNK) resolved. Appreciate glycemic control recommendations. Patient transitioned from IV to SQ basal bolus insulin regimen. IVF discontinued as patient tolerating PO. S/p 100mg total furosemide given degree of fluid overload + KCl supplementation. - Lantus dose reduced to 12units HS only if BSG >120 + ISS due to hypoglycemic episodes - Diet: T2DM Hypercapnic respiratory acidosis suspect related to sleep apnea - She does not wear her CPAP at home - Wears O2 via NC at 2L all day at baseline Acute radha with known schizoaffective disorder - likely due to non compliance - off her usual medications (lithium level undetected at admission). Psychiatry consulted, recs appreciated - Continue home doses of lithium (lithium carbonate 300 mg every morning and lithium carbonate ER 300 mg nightly) - s/p Haldol decanoate 100 mg injection 10/02 in compliance with her outpatient regimen - PO haloperidol to 2mg reduced from TID to BID. PO dosing temporarily for additional antipsychotic effect - Follow up with Dr. Urias at [facility] after discharge - being arranged by psych Sore/dry throat - No evidence of infection. Possibly experiencing side effect of Haloperidol - Offer lozenges PRN Acute renal failure (Hx of needing dialysis) - resolved - Creatinine normalized, 1.07 today - Trend BMP Bilateral proptosis (longstanding as per Dr Lewis) - TSH and free T4 WNL, free T3 borderline normal. Thyroid stimulating Ig level borderline elevated - Most recent TSH normal however can be euthyroid with grave's - no known thyroid stimulating antibodies found in chart therefore will for this and need for outpatient follow up VTE Prophylaxis - Heparin Q12H 5000 units Code - DNR Resident Physician Supervision Note: I was present with Dr. Franklin during the history and exam. I discussed the case with the resident and agree with the findings and plan as documented in the note. Any exceptions or clarifications are listed here: The patient had another episode of SVT overnight, lasting about 14 minutes. Similar to the first longer episode of SVT (night of 10/02), asymptomatic as patient was sleeping. Cardiology will see patient - question if we should titrate beta anna or switch to CCB. Also, patient has been relatively sedentary this admission; will need to encourage ambulation and monitor for tachyarrhythmias. Documented By: Bob Spann Continued [facility] stay due to: abnormal vital signs Discharge planning: home Resident Tracking Resident Involvement: Resident Care Provided Care Provided: Adult Hospital Medicine
[2017-10-05] MEDS ORDERED: INSULIN GLARGINE SOLOSTAR 100 UNITS/ML 3 ML PEN SC SCH (21:00)
[2017-10-05] MEDS: LITHIUM CARBONATE SR 300 MG TAB (LITHOBID) PO SCH (21:05)
[2017-10-05] MEDS: INSULIN GLARGINE SOLOSTAR 100 UNITS/ML 3 ML PEN SC SCH (21:09)
[2017-10-06] VITALS (10 sets, daily range): BP systolic 101–108; BP diastolic 54–78; PULSE 76–88; TEMP 36.7–37.1; O2SAT 86–98
[2017-10-06 05:13] LABS: BASO % 0.1 %; BASO ABS # 0.01 K/uL (0-0.2); EOS % 0.9 %; EOS ABS # 0.07 K/uL (0-0.5); HEMATOCRIT 41.2 % (37-47); HEMOGLOBIN 12.2 g/dL (12.0-16.0); IG# 0.05 K/uL (0.00-0.02); LYMPH % 14.6 %; MEAN CELL VOLUME 90.2 fL (80-100); MEAN CORPUSCULAR HEMOGLOBIN 26.7 pg (25-34); MEAN CORPUSCULAR HGB CONC 29.6 g/dl (32-36); MEAN PLATELET VOLUME 12.2 fL (7.4-10.4); MONO ABS # 0.98 K/uL (0.11-0.59); NEUT % 70.7 %; NEUT ABS # 5.34 K/uL (1.4-6.5); NUCLEATED RED BLOOD CELL ABS 0.14 K/uL (0-0); PLATELET COUNT 261 K/uL (130-400); RED CELL DISTRIBUTION WIDTH SD 58.8 fL (36.4-46.3); WHITE BLOOD COUNT 7.55 K/uL (4.8-10.8)
[2017-10-06 05:59] LABS: CREATININE 1.2 mg/dl (0.60-1.20); PHOSPHORUS 3.2 mg/dl (2.5-4.9)
[2017-10-06] MEDS: BENZONATATE 100MG CAP PO SCH ×3 (06:33→21:09)
[2017-10-06] MEDS: HEPARIN SOD 5000 UNIT/0.5 ML CARP SQ SCH ×3 (06:35→21:20)
[2017-10-06] MEDS: INSULIN ASPART 100 UNITS/ML 3 ML PEN SC SCH ×4 (07:00→20:52)
[2017-10-06] MEDS: ALBUT/IPRATROP 3MG/0.5MG NEB 3 ML VIAL INH SCH ×4 (07:02→19:10)
[2017-10-06 07:50] LABS: POTASSIUM 4.7 mmol/L (3.5-5.1)
[2017-10-06] MEDS: LITHIUM CARBONATE 300 MG TAB PO SCH (09:03)
[2017-10-06] MEDS: LACTULOSE SYRUP 30 GM/45 ML UDP PO SCH ×3 (09:03→21:10)
[2017-10-06] MEDS: ASPIRIN 81 MG ECTAB PO SCH (09:03)
[2017-10-06] MEDS: LEVETIRACETAM 250 MG TAB PO SCH ×2 (09:04→21:08)
[2017-10-06] MEDS: HALOPERIDOL 1 MG TAB PO SCH ×2 (09:04→21:10)
[2017-10-06] MEDS: METOPROLOL TARTRATE 25 MG TAB PO SCH ×2 (09:04→21:08)
--- NOTE | 2017-10-06 10:56 | Family Medicine Progress Note ---
Progress Note Date of Service Oct 06, 2017. Subjective Pt evaluation today including: conversation w/ patient, conversation w/ family , physical exam, chart review, lab review, review of studies, conversation w/ contamination consultant, review of inpatient medication list Patient awake and oriented. Complaining of feeling hungry and having tummy pains. She had not had breakfast yet, so was comforted by being told that we would get her food soon. Otherwise denies other discomfort. Denies fevers/ chills, headaches, CP, palpitations, dyspnea. She is tolerating diet without nausea or vomiting, and says she has no issues with voiding and stooling appropriately. ROS is unremarkable except as noted above. Objective Vital Signs Date Time Temp Pulse Resp B/P (MAP) Pulse Ox O2 Delivery O2 Flow Rate FiO2 10/06/17 08:00 Nasal Cannula 2.0 10/06/17 07:41 36.7 78 20 101/55 (70) 96 Nasal Cannula 2.0 10/06/17 07:03 80 18 94 Nasal Cannula 2.0 10/06/17 04:48 37.1 76 21 101/60 (74) 98 Nasal Cannula 2.0 10/06/17 04:00 Nasal Cannula 2.0 10/06/17 00:01 Nasal Cannula 2.0 10/05/17 23:31 36.9 84 23 111/73 (86) 94 Nasal Cannula 2.0 10/05/17 20:00 94 Nasal Cannula 2.0 10/05/17 19:10 88 16 94 Nasal Cannula 2.0 10/05/17 19:07 36.8 68 20 109/65 (80) 94 Nasal Cannula 2.5 100 10/05/17 16:00 97 Nasal Cannula 2.0 10/05/17 15:21 89 18 97 Nasal Cannula 2.0 10/05/17 15:20 37.1 83 20 107/54 (71) 97 10/05/17 12:00 91 Room Air 2.0 10/05/17 12:00 86 10/05/17 11:15 92 18 86 Nasal Cannula 2.0 10/05/17 10:39 36.5 90 20 111/67 (82) 96 Nasal Cannula 2.0 Physical Exam Notes: General Appearance: WD/WN, no apparent distress, + obese Eyes: normal inspection, + pertinent finding (bilateral proptosis - chronic) ENT: hearing grossly normal + pertinent finding (no evidence of candidiasis on tongue or throat, no posterior oropharyngeal erythema appreciated) Respiratory/Chest: normal breath sounds, no respiratory distress, no accessory muscle use Cardiovascular: regular rate, rhythm, no murmur Abdomen: normal bowel sounds, non tender, soft Extremities: no calf tenderness, + pertinent finding (improved edema in lower extremities) 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: no motor/sensory deficits (mild right sided upper extremity weakness - 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 stitch bonding machine drawer in only strength 4-5/5), alert, oriented x 3 Skin: normal color, warm/dry, no rash Laboratory Results Results Past 24 Hours Test 10/05/17 10:45 10/05/17 16:24 10/05/17 20:40 10/06/17 04:36 Range/Units Bedside Glucose 150 160 150 70-90 mg/dl White Blood Count 7.55 4.8-10.8 K/uL Red Blood Count 4.57 4.2-5.4 M/uL Hemoglobin 12.2 12.0-16.0 g/dL Hematocrit 41.2 37-47 % Mean Corpuscular Volume 90.2 80-100 fL Mean Corpuscular Hemoglobin 26.7 25-34 pg Mean Corpuscular Hemoglobin Concent 29.6 32-36 g/dl Platelet Count 261 130-400 K/uL Mean Platelet Volume 12.2 7.4-10.4 fL Neutrophils (%) (Auto) 70.7 % Lymphocytes (%) (Auto) 14.6 % Monocytes (%) (Auto) 13.0 % Eosinophils (%) (Auto) 0.9 % Basophils (%) (Auto) 0.1 % Neutrophils # (Auto) 5.34 1.4-6.5 K/uL Lymphocytes # (Auto) 1.10 1.2-3.4 K/uL Monocytes # (Auto) 0.98 0.11-0.59 K/uL Eosinophils # (Auto) 0.07 0-0.5 K/uL Basophils # (Auto) 0.01 0-0.2 K/uL RDW Standard Deviation 58.8 36.4-46.3 fL RDW Coefficient of Variation 18.0 11.5-14.5 % Immature Granulocyte % (Auto) 0.7 % Immature Granulocyte # (Auto) 0.05 0.00-0.02 K/uL Nucleated RBC Absolute Count (auto) 0.14 0-0 K/uL Nucleated Red Blood Cells % 1.8 % Sodium Level 137 136-145 mmol/L Potassium Level 3.5-5.1 mmol/L Chloride Level 104 98-107 mmol/L Carbon Dioxide Level 31 21-32 mmol/L Anion Gap 2.0 3-11 mmol/L Blood Urea Nitrogen 23 7-18 mg/dl Creatinine 1.20 0.60-1.20 mg/dl Est Creatinine Clear Calc Drug Dose 55.1 ml/min Estimated GFR () 56.1 Estimated GFR (Non- 48.4 BUN/Creatinine Ratio 18.9 10-20 Random Glucose 113 70-99 mg/dl Calcium Level 9.0 8.5-10.1 mg/dl Phosphorus Level 3.2 2.5-4.9 mg/dl Magnesium Level 1.8-2.4 mg/dl Test 10/06/17 06:53 10/06/17 07:01 Range/Units Potassium Level 4.7 3.5-5.1 mmol/L Magnesium Level 2.8 1.8-2.4 mg/dl Bedside Glucose 97 70-90 mg/dl Assessment and Plan 62 year old female with schizophrenia presents with new right sided arm weakness after stopping her medications as "Brando told her to stop her medications" SVT - Intermittent. Spontaneous conversion to SR. Patient asymptomatic. Episodes ranging from 5min to 45min. No episode occurred last night. - Continue metoprolol 25mg BID - Cardiology consulted, patient known to Dr. Mills - Trend BMP/Mg/PO4 and replete as necessary - Continue to monitor in telemetry Right arm weakness / seizure disorder - Substantially improved since admission. CT head negative. Possible focal motor seizure with a subsequent Price's paralysis precipitated by severe hyperglycemia. Patient refused MRI brain combo to r/o stroke. - Appreciate neurology recommendations - Continue aspirin and increased dose Keppra 750mg BID - PT/OT evals Type 2 diabetes mellitus - Hyperosmolar Hyperglycemic state (HHS/HHNK) resolved. Appreciate glycemic control recommendations. Patient transitioned from IV to SQ basal bolus insulin regimen. IVF discontinued as patient tolerating PO. S/p 100mg total furosemide given degree of fluid overload + KCl supplementation. - Lantus dose reduced to 12units HS only if BSG >120 + ISS due to hypoglycemic episodes - Diet: T2DM Hypercapnic respiratory acidosis suspect related to sleep apnea - She does not wear her CPAP at home - Wears O2 via NC at 2L all day at baseline Acute radha with known schizoaffective disorder - likely due to non compliance - off her usual medications (lithium level undetected at admission). Psychiatry consulted, recs appreciated - Continue home doses of lithium (lithium carbonate 300 mg every morning and lithium carbonate ER 300 mg nightly) - s/p Haldol decanoate 100 mg injection 10/02 in compliance with her outpatient regimen - PO haloperidol to 2mg reduced from TID to BID. PO dosing temporarily for additional antipsychotic effect - Follow up with Dr. Urias at [facility] [place] after discharge - being arranged by psych Sore/dry throat - No evidence of infection. Possibly experiencing side effect of Haloperidol - Offer lozenges PRN Acute renal failure (Hx of needing dialysis) - resolved - Creatinine normalized, 1.2 today - Trend BMP Bilateral proptosis (longstanding as per Dr Lewis) - TSH and free T4 WNL, free T3 borderline normal. Thyroid stimulating Ig level borderline elevated - Most recent TSH normal however can be euthyroid with grave's - no known thyroid stimulating antibodies found in chart therefore will for this and need for outpatient follow up VTE Prophylaxis - Heparin 5000 units Q12H Code - DNR Resident Physician Supervision Note: I was present with Dr. Franklin during the history and exam. I discussed the case with the resident and agree with the findings and plan as documented in the note. Will consult [facility] cardiology today after we learned from that patient is already established with them. PT/OT evaluation and discussion with to determine where she is in relation to her baseline. Documented By: Bob Spann Continued [facility] stay due to: other Discharge planning: home Resident Tracking Resident Involvement: Resident Care Provided Care Provided: Adult Hospital Medicine
--- NOTE | 2017-10-06 13:24 | CARDIOLOGY CONSULTATION ---
DATE OF CONSULTATION: 10/01/2017 Cardiology consultation. REFERRING PHYSICIAN: Dr. Kranthi Spann. REASON FOR CONSULTATION: Paroxysmal supraventricular tachycardia. HISTORY OF PRESENT ILLNESS: Ms. Barone is a 62-year-old female who is known to the cardiology service for history of cor pulmonale, chronic right-sided heart failure, pulmonary hypertension, schizoaffective disorder. She presented to the Emergency Department on October 01 with confusion. Apparently, patient had discontinued her medication about 3 weeks prior to admission, stating that she was "tired of it." She was initially admitted to the intensive care unit. Outpatient medications were restarted. While in the ICU, patient was noted to have short salvos of nonsustained ventricular tachycardia. There were also several salvos of paroxysmal supraventricular tachycardia, first occurring 10/02/2017 with a heart rate of approximately 165 beats per minute. There were several other short salvos with heart rates ranging from 155-174 beats per minute. EKGs captured during dysrhythmia demonstrated paroxysmal supraventricular tachycardia with an incomplete right bundle-branch block, no ischemic changes. Patient was prescribed metoprolol 25 mg twice daily. Her rhythm has been stable over the past 36 hours. No sustained episodes of supraventricular tachycardia or recurrent ventricular tachycardia. Electrolytes are stable as noted below. Patient was seen and examined at the bedside. She is a poor historian. She denies palpitations, chest discomfort, unusual shortness of breath, orthopnea or PND. She does not recall stopping her medications. She notes lower extremity edema, however, is unaware of the severity, currently is better or worse than her baseline. There was no family present at bedside to aid with history. Predominant history was taken from the chart as well as conversation with consulting physician. REVIEW OF SYSTEMS: The pertinent positive noted above, comprehensive 10-system review has gleaned from the chart, conversations with nursing and otherwise negative. PAST MEDICAL HISTORY: 1. Cor pulmonale. 2. Pulmonary hypertension. 3. History of left ventricular systolic dysfunction with most recent echocardiogram performed 01/2017 demonstrating normal LV function. 4. Polydipsia. 5. Diabetes type 2. 6. Schizoaffective disorder. 7. Bipolar disorder. SOCIAL HISTORY: Lives with her and family who are supportive. She does not use tobacco. She is intermittently known to discontinue all medications for weeks at a time. FAMILY HISTORY: Noncontributory. ALLERGIES: PENICILLIN. OUTPATIENT MEDICATIONS: 1. [place] 300 mg twice daily. 2. Zaroxolyn 5 mg twice weekly. 3. Lasix 80 mg in the a.m., 40 mg in the evening. 4. Aspirin 81 mg daily. 5. Klor-Con 20 mEq 2 times a day. 6. Lantus 10 units subQ twice daily. 7. Lactulose 45 mg 3 times a day. 8. Keppra 500 mg twice daily. 9. Magnesium oxide 400 mg daily. 10. FlexPen insulin. 11. Zestril 5 mg daily. 12. Supplemental oxygen 2 liters continuous. 13. Haldol as needed. ECG performed 10/02/2017 at 01:44 a.m., supraventricular tachycardia, 164 beats per minute, incomplete right bundle-branch block. ECGs 10/02/2017 at 8:25 p.m. demonstrates supraventricular tachycardia, 177 beats per minute, PVCs. Telemetry monitoring overnight demonstrates sinus rhythm. LABORATORY DATA: Sodium 137, potassium 4.7, chloride is 104, CO2 is 31, BUN is 23, creatinine is 1.20. White blood cell count 7.55, hemoglobin is 12.2, platelet count is 261. INR is 1.1 on admission. Chest x-ray performed on 10/01/2017 demonstrates cardiomegaly with mild pulmonary vascular congestion. PHYSICAL EXAMINATION: VITAL SIGNS: Temperature is 37.1 degrees centigrade, pulse is 88 beats per minute and regular, respiratory rate is 18 breaths per minute, blood pressure 103/70, SAO2 is 92% on 2 liters. GENERAL: NAD. Awake and alert. She is a poor historian. HEENT: Her mucous membranes are moist. No scleral icterus. Conjunctivae pink. NECK: Supple with elevated JVD. HEART: Regular with a normal S1 and S2. There is no murmur, rub or gallop appreciated. LUNGS: Demonstrate diminished breath sounds bilaterally. ABDOMEN: Soft, nontender. No rebound or guarding. EXTREMITIES: Demonstrate 1+ bilateral pretibial edema. NEUROLOGIC: Demonstrates no focal motor deficit. FINAL IMPRESSION: 1. Paroxysmal supraventricular tachycardia -- rhythm appears controlled with addition of low-dose beta-anna therapy. 2. Nonsustained ventricular tachycardia recorded on 10/01/2017, dysrhythmia occurred in the setting of electrolyte derangement, acute renal insufficiency, and dehydration on admission. Lasix has been on hold since that time. 3. Cor pulmonale with chronic right-sided heart failure. 4. Diabetes type 2. PLAN AND RECOMMENDATIONS: Resting 2D transthoracic echocardiogram will be assessed at this time. Continue metoprolol 25 mg twice daily. Do not see an indication for electrophysiology consultation currently as patient's rhythm appears to have improved with beta anna therapy. If her rhythm were to become refractory to medical intervention would consider electrophysiology consultation at that time. Diuretics will remain on hold currently with plans to repeat basic metabolic panel in the a.m. With a history of polydipsia, patient likely is not retaining fluid as her intake is monitored in the hospital. Further recommendations pending review of echocardiogram. Importance of compliance discussed. Thank you for allowing me to participate in the care of your patient.
[2017-10-06] MEDS ORDERED: PERFLUTREN LIPID MICROSPHERE (DEFINITY) IV ONE (14:16)
[2017-10-06] MEDS ORDERED: FUROSEMIDE 40 MG TAB PO ONE (17:02)
--- NOTE | 2017-10-06 17:05 | ECHOCARDIOGRAM REPORT ---
*NOTICE TO RECEIVING [employer] AGENCY This information is strictly Confidential and protected under [place] law. [place] law prohibits you from making any further disclosure of this information unless further disclosure is expressly permitted by the written consent of the person to whom it pertains or is authorized by law. A general authorization for the release of medical or other information is not sufficient for this purpose. Hospital accepts no responsibility if the information is made available to any other person, INCLUDING THE PATIENT. Interpretation Summary * Name: CHARITY BARRIOS Study Date: 10/06/2017 12:53 PM BP: 103/78 mmHg * Patient Location: [id number].[id number]\E207\S\1 HR: 88 * : 1955 (M/d/yyyy) Gender: Female Height: 62 in * Age: 62 yrs Ethnicity: AA Weight: 222 lb * Ordering Physician: Hunter Bae * Referring Physician: Self, Referred * Performed By: Anitha Reyes RDCS * * Reason For Study: SVT, Cor Pulmonale * BSA: 2.0 m2 * There were technical limitations due to patient's inability to cooperate. * Compared to prior study, changes are noted. * -- Conclusions -- * Left ventricular systolic function is mildly reduced. * Ejection Fraction = 45-50%. * The right ventricle is severely dilated. * The right ventricular systolic function is severely reduced. * Dilated tricuspid annulus preventing coaptation of the tricuspid valve leaflets. * There is severe tricuspid regurgitation. * The right atrium is severely dilated. * Flattened septum is consistent with RV volume overload. * Moderate pulmonic valvular regurgitation. * The interatrial septum bows toward left atrium consistent with elevated right atrial pressure. * Injection of contrast documented no interatrial shunt. * Dilated inferior vena cava with reduced collapsability with sniff indicates an elevated right atrial pressure of 15 mmHg Procedure Details * A complete two-dimensional transthoracic echocardiogram was performed (2D, M-mode, Doppler and color flow Doppler). * The study was technically difficult. * The study was technically difficult, but visualization was adequate with the administration of Definity ultrasound contrast. * There were technical limitations due to patient'sinability to cooperate * A saline contrast injection was performed to assess for cardiac shunting. * The injection was performed through an intravenous line in the left arm. * The attending nurse who injected the saline contrast was Nadia Agee RN. * A total of 10 cc of agitated saline was given. * A contrast injection of Definity was performed to improve assessment of LV function. * Contrast was injected into an intravenous site in the right arm. * One vial of Definity ultrasound contrast was diluted in normal saline to a total volume of 10 ml. A total of '1' ml of solution was administered during imaging. * Lot # [id number] of Definity utilized for procedure. * Expiration date . * The attending nurse who injected the contrast agent was Mark Raygoza RN. Left Ventricle * The left ventricle is normal in size. * There is no thrombus. * There is normal left ventricular wall thickness. * Ejection Fraction = 45-50%. * Left ventricular systolic function is mildly reduced. * Flattened septum is consistent with RV volume overload. Right Ventricle * The right ventricle is severely dilated. * The right ventricular systolic function is severely reduced. Atria * The left atrial size is normal. * The right atrium is severely dilated. * Injection of contrast documented no interatrial shunt. * The interatrial septum bows toward left atrium consistent with elevated right atrial pressure. Mitral Valve * The mitral valve is normal. * There is no mitral valve stenosis. * There is mild mitral regurgitation. Tricuspid Valve * Dilated tricuspid annulus preventing coaptation of the tricuspid valve leaflets. * There is no tricuspid stenosis. * There is severe tricuspid regurgitation. Aortic Valve * The aortic valve is trileaflet. * Aortic stenosis is absent. * There is no significant aortic regurgitation. Pulmonic Valve * The pulmonic valve is not well visualized. * Moderate pulmonic valvular regurgitation. Great Vessels * The aortic root is normal size. Pericardium/Pleural * There is no pericardial effusion. Great Vessels * Dilated inferior vena cava with reduced collapsability with sniff indicates an elevated right atrial pressure of 15 mmHg MMode 2D Measurements and Calculations IVSd 1.0 cm IVSs 1.3 cm LVIDd 5.3 cm LVIDs 3.7 cm LVPWd 1.1 cm LVPWs 1.5 cm IVS/LVPW 0.94 FS 29.9 % EDV(Teich) 137.6 ml ESV(Teich) 59.7 ml EF(Teich) 56.6 % EDV(cubed) 152.1 ml ESV(cubed) 52.4 ml EF(cubed) 65.6 % % IVS thick 24.7 % % LVPW thick 33.4 % LV mass(C)d 219.8 grams LV mass(C)dI 110.0 grams/m\S\2 LV mass(C)s 184.0 grams LV mass(C)sI 92.1 grams/m\S\2 SV(Teich) 77.9 ml SI(Teich) 39.0 ml/m\S\2 SV(cubed) 99.7 ml SI(cubed) 49.9 ml/m\S\2 Ao root diam 2.3 cm Ao root area 4.2 cm\S\2 ACS 1.3 cm LA dimension 2.5 cm LA/Ao 1.1 LVAd ap4 33.9 cm\S\2 LVLd ap4 7.8 cm EDV(MOD-sp4) 126.4 ml EDV(sp4-el) 125.3 ml LVAs ap4 20.7 cm\S\2 LVLs ap4 6.2 cm ESV(MOD-sp4) 62.0 ml ESV(sp4-el) 58.7 ml EF(MOD-sp4) 51.0 % EF(sp4-el) 53.2 % LVAd ap2 24.2 cm\S\2 LVLd ap2 6.8 cm EDV(MOD-sp2) 72.1 ml EDV(sp2-el) 73.3 ml LVAs ap2 17.5 cm\S\2 LVLs ap2 7.0 cm ESV(MOD-sp2) 37.1 ml ESV(sp2-el) 37.0 ml EF(MOD-sp2) 48.5 % EF(sp2-el) 49.5 % LVLd %diff -15.20 % EDV(MOD-bp) 103.2 ml LVLs %diff 11.8 % ESV(MOD-bp) 50.4 ml EF(MOD-bp) 51.1 % SV(MOD-sp4) 64.4 ml SI(MOD-sp4) 32.2 ml/m\S\2 SV(MOD-sp2) 35.0 ml SI(MOD-sp2) 17.5 ml/m\S\2 SV(MOD-bp) 52.8 ml SI(MOD-bp) 26.4 ml/m\S\2 SV(sp4-el) 66.6 ml SI(sp4-el) 33.3 ml/m\S\2 SV(sp2-el) 36.3 ml SI(sp2-el) 18.2 ml/m\S\2 Doppler Measurements and Calculations LV V1 max PG 2.1 mmHg LV V1 max 72.5 cm/sec TV E max markus 155.8 cm/sec TV V2 max 157.3 cm/sec TV max PG 9.9 mmHg TV V2 mean 80.5 cm/sec TV mean PG 3.3 mmHg TV V2 VTI 32.4 cm PA V2 max 84.1 cm/sec PA max PG 2.9 mmHg PI max markus 188.9 cm/sec PI max PG 14.3 mmHg PI dec slope 327.5 cm/sec\S\2 PI P1/2t 169.0 msec TR max markus 209.5 cm/sec
[2017-10-06] MEDS: INSULIN GLARGINE SOLOSTAR 100 UNITS/ML 3 ML PEN SC SCH (20:52)
[2017-10-06] MEDS: LITHIUM CARBONATE SR 300 MG TAB (LITHOBID) PO SCH (21:11)
[2017-10-07] VITALS (11 sets, daily range): BP systolic 98–122; BP diastolic 61–77; PULSE 70–80; TEMP 36.8–37.1; O2SAT 90–94
[2017-10-07] MEDS: HEPARIN SOD 5000 UNIT/0.5 ML CARP SQ SCH ×2 (05:54→14:46)
[2017-10-07] MEDS: BENZONATATE 100MG CAP PO SCH ×2 (05:54→14:00)
[2017-10-07 06:14] LABS: HEMATOCRIT 41.2 % (37-47); HEMOGLOBIN 12.7 g/dL (12.0-16.0); MEAN CELL VOLUME 89.8 fL (80-100); MEAN CORPUSCULAR HEMOGLOBIN 27.7 pg (25-34); MEAN CORPUSCULAR HGB CONC 30.8 g/dl (32-36); MEAN PLATELET VOLUME 11.5 fL (7.4-10.4); NUCLEATED RED BLOOD CELL ABS 0.16 K/uL (0-0); PLATELET COUNT 242 K/uL (130-400); RED CELL DISTRIBUTION WIDTH SD 57.4 fL (36.4-46.3); WHITE BLOOD COUNT 6.57 K/uL (4.8-10.8)
[2017-10-07 06:31] LABS: CALCIUM 8.6 mg/dl (8.5-10.1); CREATININE 1.22 mg/dl (0.60-1.20); POTASSIUM 4.3 mmol/L (3.5-5.1)
--- NOTE | 2017-10-07 06:58 | Family Medicine Progress Note ---
Progress Note Date of Service Oct 07, 2017. Subjective Pt evaluation today including: conversation w/ patient, conversation w/ family , physical exam Pain: None PO Intake: No issues with intake Voiding: no voiding problems, no incontinence Assessment and Plan see discharge summary
[2017-10-07] MEDS: ALBUT/IPRATROP 3MG/0.5MG NEB 3 ML VIAL INH SCH ×3 (07:08→14:32)
[2017-10-07] MEDS: LACTULOSE SYRUP 30 GM/45 ML UDP PO SCH ×2 (07:53→14:00)
[2017-10-07] MEDS: ASPIRIN 81 MG ECTAB PO SCH (07:54)
[2017-10-07] MEDS: METOPROLOL TARTRATE 25 MG TAB PO SCH (07:54)
[2017-10-07] MEDS: LEVETIRACETAM 250 MG TAB PO SCH (07:55)
[2017-10-07] MEDS: HALOPERIDOL 1 MG TAB PO SCH (07:55)
[2017-10-07] MEDS: LITHIUM CARBONATE 300 MG TAB PO SCH (07:55)
[2017-10-07] MEDS: FUROSEMIDE 40 MG TAB PO SCH ×2 (07:56→16:55)
[2017-10-07] MEDS: INSULIN ASPART 100 UNITS/ML 3 ML PEN SC SCH ×3 (07:58→16:55)
[2017-10-07] MEDS ORDERED: MAGIC MOUTHWASH PO ONE (08:30)
[2017-10-07] MEDS ORDERED: INSULIN GLARGINE SOLOSTAR 100 UNITS/ML 3 ML PEN SC SCH (09:00)
[2017-10-07] MEDS ORDERED: DEXAMETHASONE CONC SOLN 0.078 MG, NYSTATIN SUSP 0.625 ML, DiphenhydrAMINE HCL SYRUP 6.2... PO ONE ×5 (09:15)
[2017-10-07] MEDS ORDERED: NURSING VERBAL MED ORDER ONE (13:15)
[2017-10-07] MEDS ORDERED: HLD1 PO ×3 (14:01→15:49)
[2017-10-07] MEDS ORDERED: METO50TA8 PO ×3 (14:01→15:49)
[2017-10-07] MEDS ORDERED: KPP250 PO ×3 (14:01→15:49)
--- NOTE | 2017-10-07 14:10 | Discharge Instructions ---
Discharge Instructions Date of Service Oct 07, 2017. Admission Reason for Admission: [place], New Right Arm Weakness Possible Need To Discharge Discharge Diagnosis / Problem: Schizoaffective Disorder, Stable Discharge Goals Goal(s): Decrease discomfort, Improve function, Increase independence Activity Recommendations Activity Limitations: resume your previous activity Lifting Limitations: none Exercise/Sports Limitations: none Shower/Bathe: no limitations . Instructions / Follow-Up Instructions / Follow-Up You came to the hospital because you have stopped taking your psychiatric medications. Your blood sugar was found to be extremely elevated. You also had symptoms of arm weakness. We were able to rule-out that this was a stroke and is most likely an after effect of your seizures. We were able to bring down your blood sugars with IV fluids and Insulin. To treat your seizures we increased your Keppra dose. Please starting taking as directed. Because you have not been taking your psychiatric medications, we had to re- start these so you would be safe to go home. You were started on a tablet for Haldol. Please take this as directed until you are seen by psychiatry. You will be seen by psychiatry in 1 week. You have been given significant fluid and because of your heart failure, you need to re-start your Lasix. Please take your Lasix as directed. At this point you should not take the Metolazone. You were noted to intermittently have a fast heart rate and were placed on a medication to prevent this from happening. This medication is called Metoprolol. Please take this as directed. Please see your software engineer advisor in 1 week so he can see your fluid status. You did have some difficulty swallowing and our speech and language therapist recommended a pureed diet which will make eating easier for your. Here is a summary of their recommendations - Pureed diet. Advance diet as tolerated. - Fully upright for meals and for 30 minutes after meals. You need to have your kidney function re-checked in 3-5 days. We will give you a prescription for this. When you go home. please ensure to take your medications. They will prevent you from coming to the hospital and help ensure that you remain healthy at home. If your symptoms fail to improve, acutely worsen, please seek medical attention immediately by either calling your primary care provider or going to your nearest emergency department. Otherwise, please see your primary care provider within 1 week to ensure that your symptoms continue to improve. It was a pleasure to be involved in your care and we wish you all the best. Current Hospital Diet Patient's current hospital diet: Diabetes Type 2 Diet Discharge Diet Recommended Diet: AHA Diet (Heart Healthy) Diet Texture: Pureed (blended smooth) Pending Studies Studies pending at discharge: no Laboratory Results Hemoglobin A1c Test 10/02/17 02:34 Range/Units Estimated Average Glucose 364 mg/dl Hemoglobin A1c 14.3 H 4.5-5.6 % Lipid Panel Test 10/02/17 02:34 Range/Units Triglycerides Level 82 0-150 mg/dl Cholesterol Level 69 0-200 mg/dl HDL Cholesterol 41 mg/dl Cholesterol/HDL Ratio 1.7 LDL Cholesterol, Calculated 12 mg/dl Medical Emergencies . Who to Call and When: Medical Emergencies: If at any time you feel your situation is an emergency, please call 911 immediately. . Non-Emergent Contact Non-Emergency issues call your: Primary Care Provider, Dermatology Physician Assistant Call Non-Emergent contact if: you have any medication questions . . "Provider Documentation" section prepared by Darvin Keita. .
--- NOTE | 2017-10-07 14:29 | Pharmacy Progress Note ---
Glycemic Control Progress Note Date of Service Oct 07, 2017. Scope Glycemic Pharmacist consulted for glycemic control to write orders per [facility] inpatient glycemic control protocol. Objective Accuchecks BSG (last 24hrs): Test 10/06/17 16:10 10/06/17 20:15 10/07/17 05:45 10/07/17 06:28 Bedside Glucose 110 mg/dl (70-90) 113 mg/dl (70-90) 126 mg/dl (70-90) Random Glucose 108 mg/dl (70-99) Test 10/07/17 11:18 Bedside Glucose 147 mg/dl (70-90) HbA1c: Test 10/02/17 02:34 Hemoglobin A1c 14.3 % (4.5-5.6) H Outpatient Anti-Diabetic Meds -*- --Q-g-s-t-u-s- -1-4- -u-n-i-t-s- -S-Q- -B-I-D- Lantus 20-40 units SQ BID per . Although pt has not taken any insulin x 3 weeks. * NovoLog 10 units SQ TID PRN BSG >180 mg/dl Assessment & Plan ASSESSMENT: * -J-m-j-t-u-s- -1-4- -u-n-i-t-s- -S-Q- -B-I-D- Lantus 20-40 units SQ BID per . Although pt has not taken any insulin x 3 weeks. * NovoLog 10 units SQ TID PRN BSG >180 mg/dl Item Value Date Time Bedside Glucose 101 mg/dl H 10/05/17 0644 Bedside Glucose 79 mg/dl 10/05/17 0613 Bedside Glucose 50 mg/dl *L 10/05/17 0551 Bedside Glucose 139 mg/dl H 10/04/17 2024 Bedside Glucose 87 mg/dl 10/04/17 1649 Bedside Glucose 67 mg/dl *L 10/04/17 1627 Bedside Glucose 92 mg/dl H 10/04/17 1117 Bedside Glucose 85 mg/dl 10/04/17 0631 ASSESSMENT: * 62 yo F with T2DM known to pharmacy from previous admissions glycemic consults , currently admitted with AMS, HHS * HbA1c significantly elevated this admission to 14.3% 2nd holding medications x3 weeks prior to admission. HbA1c is a reflection of previous 3 months, however most recent 2 weeks are more heavily reflected in number. * BSG's ranging 110-142 mg/dL over the last 24 hours - Lantus was held last night per parameters for BSG less than 120 mg/dL. OK to resume this AM 2nd BSG of 126 mg/dL. PLAN FOR INPATIENT GLYCEMIC CONTROL: * Basal insulin * Lantus 10 units SQ qAM (hold for BSG less than 110 mg/dL) * Bolus insulin * NovoLog per scale ACHS or Q6hrs while NPO * Goal Range: Low 120 mg/dL - High 150 mg/dL * Correction Factor: 30 mg/dL/unit (dose reduction) * Nutritional / Prandial insulin per carb ratio of 1 unit per 9 grams CHO consumed Discharge Recommendations: Agree with discharge recommendations from 10/05 as follows: * Assessment * Patient's insulin needs this hospital admission are much less than outpatient needs. One needs to question the patient's compliance with insulin injections and diet as an outpt based upon the contrasting insulin needs. I would not feel comfortable recommending she resume the reported outpt regimen on discharge as she is requiring significantly less insulin per day with current dietary habits. * Recommendation * Would recommend discharging patient on the same inpatient Lantus dose and using lower doses of Novolog with meals based upon latest BSG data on day of discharge. * She will require close f/u within a week of discharge for insulin titration should she require higher doses on discharge based upon her compliance and dietary habits. * Please note that the plan above was derived based on current level of insulin resistance and hospital stress. These recommendations are appropriate for inpatient admission only. Plan of care upon discharge will need to be reassessed to avoid potential outpatient hypo/hyperglycemia. Thank you.
--- NOTE | 2017-10-07 15:19 | Cardiology Follow-Up ---
Subjective General Date of Service: Oct 07, 2017. Pt evaluation today including: conversation w/ patient, physical exam, chart review, lab review, review of studies, conversation w/ business development consultant, review of inpatient medication list History of Present Illness The patient is a 62 year old female seen in follow-up. No recurrent SVT on telemetry. Lasix restarted. Patient remains confused. Denies orthopnea or PND. Mild lower extremity edema noted. Patient offers no complaints at this time, however, she is an unreliable historian. Allergies Coded Allergies: Penicillins (Unverified Allergy, Unknown, unknown, 10/01/17) Social History Smoking Status: Never Smoker Hx Tobacco Use In Past Year?: No Hx Alcohol Use - Type And Amou: No Hx Substance Use - Type And Am: No Problem List Medical Problems: (1) Acute CHF Status: Acute (2) Acute renal failure (ARF) Status: Acute (3) Change in mental status Status: Acute (4) CHF (congestive heart failure) Status: Acute (5) CHF (congestive heart failure) Status: Acute (6) CO2 retention Status: Acute (7) Fall Status: Acute (8) Hyperammonemia Status: Acute (9) Hyperammonemia Status: Acute (10) Hyperammonemia Permanent Comment: Non cirrhotic hyperammonemia Status: Acute (11) Hyperammonemia Status: Acute (12) Hypercalcemia Status: Acute (13) Hypercarbia Status: Acute (14) Hypercarbia Status: Acute (15) Hypercarbia Status: Acute (16) Hyperglycemia Status: Acute (17) Hyperglycemia without ketosis Status: Acute (18) Hyperosmolality Status: Acute (19) Hypokalemia Status: Acute (20) Hyponatremia Status: Acute (21) Hyponatremia Status: Acute (22) Hyponatremia Status: Acute (23) Lower extremity weakness Status: Acute (24) Seizure Status: Acute (25) SOB (shortness of breath) Status: Acute (26) Weakness Status: Acute Review of Systems Respiratory: + dyspnea on exertion, No cough, No sputum, No wheezing, No shortness of breath, No dyspnea at rest, No hemoptysis Cardiac: + edema, No chest pain, No orthopnea, No PND, No claudication, No palpitations Physical Exam Vital Signs Last Vital Signs Documentation Date Time Temp Pulse Resp B/P (MAP) Pulse Ox O2 Delivery O2 Flow Rate FiO2 4/27/18 14:32 80 18 94 Nasal Cannula 2.0 10/07/17 12:05 36.8 122/77 (92) 10/06/17 15:29 100 Physical Exam Constitutional: Level of Distress: NAD, chronically ill Head: normocephalic Neck: supple Lungs: Auscultation: no wheezing, no rales/crackles, no rhonchi Cardiovascular: Heart Auscultation: RRR, normal S1, normal S2, no murmurs Peripheral Pulses: Radial Pulse: normal on the right Abdomen: Bowel Sounds: normal Inspection & Palpation: soft, non-distended, no tenderness, guarding & rebound Musculoskeletal: normal Extremities: no cyanosis, no clubbing, no ulcers, edema Neurologic: Cranial Nerves: grossly intact Assessment and Plan Assessment and Plan FINAL IMPRESSION: 1. Paroxysmal supraventricular tachycardia -No recurrence; tolerating beta-anna therapy 2. Nonsustained ventricular tachycardia recorded on 10/01/2017, dysrhythmia occurred in the setting of electrolyte derangement, acute renal insufficiency, and dehydration on admission. 3. Cor pulmonale with chronic right-sided heart failure. -Lasix restarted, metolazone on hold 4. Diabetes type 2. PLAN AND RECOMMENDATIONS: Continue metoprolol 25 mg twice daily. Oral Lasix restarted. Recommend metolazone remain on hold. Other cardiovascular medications will be continued as previously ordered. No further inpatient cardiac testing at this time. I will arrange for outpatient cardiology follow-up in 1 week. Laboratory Results Last 24 Hours Test 10/06/17 16:10 10/06/17 20:15 10/07/17 05:45 10/07/17 06:28 Bedside Glucose 110 mg/dl 113 mg/dl 126 mg/dl White Blood Count 6.57 K/uL Red Blood Count 4.59 M/uL Hemoglobin 12.7 g/dL Hematocrit 41.2 % Mean Corpuscular Volume 89.8 fL Mean Corpuscular Hemoglobin 27.7 pg Mean Corpuscular Hemoglobin Concent 30.8 g/dl RDW Standard Deviation 57.4 fL RDW Coefficient of Variation 18.0 % Platelet Count 242 K/uL Mean Platelet Volume 11.5 fL Nucleated RBC Absolute Count (auto) 0.16 K/uL Nucleated Red Blood Cells % 2.5 % Sodium Level 137 mmol/L Potassium Level 4.3 mmol/L Chloride Level 102 mmol/L Carbon Dioxide Level 31 mmol/L Anion Gap 4.0 mmol/L Blood Urea Nitrogen 24 mg/dl Creatinine 1.22 mg/dl Est Creatinine Clear Calc Drug Dose 54.1 ml/min Estimated GFR () 55.0 Estimated GFR (Non- 47.4 BUN/Creatinine Ratio 19.3 Random Glucose 108 mg/dl Calcium Level 8.6 mg/dl Test 10/07/17 11:18 Bedside Glucose 147 mg/dl
--- NOTE | 2017-10-07 17:08 | Discharge Summary ---
Discharge Summary Date of Service Oct 07, 2017. Discharge Summary Admission Date: Oct 01, 2017 at 12:15 Discharge Date: Oct 07, 2017 Discharge Disposition: Home Principal Diagnosis: Schizoaffective Disorder, HONK, Seizure Disorder, SVT Immunizations: Have You Had Influenza Vaccine: Unknown Influenza Vaccine Date: Sep 27, 2009 History of Tetanus Vaccine?: Unknown History of Pneumococcal: No Pneumococcal Date: Jun 28, 2007 History of Hepatitis B Vaccine: Unknown Procedures: CT SCAN OF THE BRAIN WITHOUT IV CONTRAST CLINICAL HISTORY: Right upper extremity weakness. COMPARISON STUDY: CT the brain dated 12/04/2016. MRI of the brain dated 11/25/2016. TECHNIQUE: Unenhanced axial CT scan of the brain is performed from the vertex to the skull base. Automated dose control exposure was utilized. CT DOSE: 644.98 mGy.cm FINDINGS: Brain parenchyma: The brain parenchyma is normal in appearance. There is no hemorrhage, mass effect, or evidence of acute territorial ischemia by CT criteria. Hughes-white matter is preserved. No extra-axial fluid collection is seen. Ventricles, sulci, cisterns: Normal in configuration. Intracranial vasculature: There is mild atherosclerotic calcification of the cavernous carotid arteries. Calvarium: Unremarkable. Sinuses and mastoids: The visualized paranasal sinuses are clear. The mastoid air cells are well pneumatized. Orbits: The bony orbits are grossly intact. There is bilateral proptosis. IMPRESSION: There is no hemorrhage, mass effect, or evidence of acute territorial ischemia by CT criteria. Electronically signed by: Ke Ojeda M.D. 10/01/2017 3:58 PM Dictated Date/Time: 10/01/2017 3:56 PM The status of this report is Signed. Draft = Not yet reviewed or approved by Radiologist. Signed = Reviewed and approved by Radiologist. ABDOMEN 2 VIEWS CLINICAL HISTORY: Abdominal distention. FINDINGS: Supine and decubitus abdominal radiographs are compared to study dated 02/03/2016. Correlation is made with abdominal CT dated 10/29/2007. There is a nonobstructed abdominal bowel gas pattern noting moderate colonic fecal retention. No evidence of intraperitoneal free air is seen on the decubitus images. Pancreatic parenchymal calcifications suggest chronic pancreatitis. There is no radiographic evidence of nephrolithiasis. The skeletal structures are osteopenic. The bony structures are grossly intact. IMPRESSION: 1. Nonobstructed abdominal bowel gas pattern noting moderate colonic fecal retention. 2. Pancreatic parenchymal calcifications are typical for chronic pancreatitis. SINGLE VIEW CHEST CLINICAL HISTORY: Change in mental status. FINDINGS: An AP, portable, upright chest radiograph is compared to study dated 05/12/2017. The examination is degraded by portable technique and apical lordotic positioning. The heart is markedly enlarged. There is pulmonary vascular congestion. No airspace consolidation or large pleural effusion is identified. No pneumothorax is seen. The skeletal structures are osteopenic. The bony thorax is grossly intact. IMPRESSION: Cardiomegaly with mild pulmonary vascular congestion. Electronically signed by: Ke Ojeda M.D. 10/01/2017 9:16 AM Dictated Date/Time: 10/01/2017 9:14 AM Interpretation Summary * Name: CHARITY BARRIOS Study Date: 10/06/2017 12:53 PM BP: 103/78 mmHg * Patient Location: [id number]\S\E207\S\1 HR: 88 * : 1955 (M/d/yyyy) Gender: Female Height: 62 in * Age: 62 yrs Ethnicity: AA Weight: 222 lb * Ordering Physician: Hunter Bae * Referring Physician: Self, Referred * Performed By: Anitha Reyes RDCS * * Reason For Study: SVT, Cor Pulmonale * BSA: 2.0 m2 * There were technical limitations due to patient's inability to cooperate. * Compared to prior study, changes are noted. * -- Conclusions -- * Left ventricular systolic function is mildly reduced. * Ejection Fraction = 45-50%. * The right ventricle is severely dilated. * The right ventricular systolic function is severely reduced. * Dilated tricuspid annulus preventing coaptation of the tricuspid valve leaflets. * There is severe tricuspid regurgitation. * The right atrium is severely dilated. * Flattened septum is consistent with RV volume overload. * Moderate pulmonic valvular regurgitation. * The interatrial septum bows toward left atrium consistent with elevated right atrial pressure. * Injection of contrast documented no interatrial shunt. * Dilated inferior vena cava with reduced collapsability with sniff indicates an elevated right atrial pressure of 15 mmHg Consultations: Psychiatry Cardiology Medication Reconciliation New Medications: Metoprolol Succ (Toprol Xl) (Toprol-Xl) 50 Mg Tabcr 1 TAB PO DAILY for 30 Days, #30 TAB 0 Refills Haloperidol (Haloperidol) 1 Mg Tab 2 MG PO BID for 10 Days, #40 TAB Levetiractam (Keppra) 250 Mg Tab 750 MG PO BID for 30 Days, #180 TAB Continued Medications: Benzonatate (Tessalon Perles) 200 Mg Cap 200 MG PO Q8, CAP Cholecalciferol (Vitamin D3) 1,000 Unit Cap 1000 INTER.UNIT PO BID Furosemide (Furosemide) 40 Mg Tab 40 MG PO QPM Furosemide (Furosemide) 80 Mg Tab 80 MG PO QAM Haloperidol Decanoate (Haldol Decanoate 100) 100 Mg/Ml Inj 1 ML IM MONTHLY for 30 Days, #1 ML 5 Refills Insulin Aspart (Novolog) 100 Units/Ml Inj 0 SQ UD ONLY IF BS IS >180 Insulin Glargine (Lantus Solostar) 100 Unit/Ml Inj 14 UNITS SC AMPM, PEN Ipratropium-Albuterol (Combivent Respimat) 1 Aer Aer 1 PUFFS INH QID, INH Lactulose (Lactulose) 30 Gm/45 Ml Syrp 30 GM PO TID, #90 DOSE Lisinopril (Lisinopril) 5 Mg Tab 5 MG PO QAM [place] Carbonate (K[place]ock Carbonate) 300 Mg Cap 300 MG PO QAM, #180 [place] Carbonate ([place] Carbonate ER) 300 Mg Tab 300 MG PO HS, #30 TAB Magnesium Oxide (Mag-Ox) 400 Mg Tab 400 MG PO BID Nystatin (Nystop) 45 Appln/15 Gm Powd 1 APPLN TOP BID Polyethylene (Miralax) 17 Gm Pow 17 GM PO DAILY PRN for Constipation, #30 Potassium Chloride (Micro-K Ext Rel) 10 Meq Capcr 160 MEQ PO QAM, CAP Potassium Chloride (K-Tabs) 10 Meq Tab 40 MEQ PO DAILY@1200 Potassium Chloride (Micro-K Ext Rel) 10 Meq Capcr 80 MEQ PO QPM, CAP Discontinued Medications: Levetiractam (Levetiracetam) 500 Mg Tab 500 MG PO BID Metolazone (Zaroxolyn) 5 Mg Tab 5 MG PO DAILY, TAB Discharge Exam Review of Systems: Constitutional: No fever, No chills, No sweats Eyes: No worsening of vision, No redness, No diplopia ENT: No nasal symptoms, No sore throat, No tinnitus Respiratory: No cough, No sputum, No wheezing Cardiovascular: No chest pain, No orthopnea, No palpitations Abdomen: No pain, No nausea, No vomiting, No constipation Musculoskeletal: No joint pain, No muscle pain, No swelling, No calf pain Genitourinary - Female: No dysuria, No urinary frequency Genitourinary - Male: No dysuria, No urinary frequency Neurologic: No numbness/tingling, No vertigo Hematologic / Lymphatic: No swollen lymph nodes, No night sweats Integumentary: No rash, No color change Hospital Course 62 year old female with schizoaffective disorder presenting with hyperglycemia and right arm weakness. On arrival her BSG was > 1000. She was treated initially for HONK with IV insulin drip and IV fluids. Has also been non- adherent to medications including psychiatric medications and presented in acutely manic state. Her hospital course was as follows: Hyperglycemia with HONK on background of Type 2 Diabetes Mellitus - Admitted to ICU on 10/01 for IV insulin and aggressive IV rehydration - Stable recovery and downgraded from ICU on 10/02 to telemetry - IV insulin discontinued; patient resumed on home insulin regimen - Etiology of HONK suspected due to medication non-adherence - Discharged home on usual regimen and compliance was encouraged Right arm weakness / seizure disorder - Evaluated by neurology; suspected to be due to seizure disorder - No acute findings on brain imaging to suggest CVA - Lamictal titrated up to 750 mg BID - Neurology recommendations appreciated Acute Ileana on Known Schizoaffective Disorder - Due to medication non-adherence - Presented with amairani manic symptoms - Psychiatry consulted; their recommendations were appreciated Psych has set up outpatient appointment following discharge - Started on PO Haldol 2 mg TID which will be continued until her outpatient follow-up - She is to continue Klawock 300 TID as previously directed Paroxysmal SVT - Noted during ICU admission; longest episode for 45 minutes - Cardiology consulted; recommendations appreciated Recommend medical management as patient is asymptomatic; recommend Metoprolol therapy - Started on Metoprolol PO and titrated up to Metoprolol Succinate 50 mg daily at discharge- Intermittent. - Needs cardiology evaluation 1 week after discharge (Dr. Mills) Type 2 diabetes mellitus - Hyperosmolar Hyperglycemic state (HHS/HHNK) resolved. Appreciate glycemic control recommendations. Patient transitioned from IV to SQ basal bolus - Presented as severe hyperglycemia with HHS - Currently on basal/bolus regimen with BSG well controlled - Resume home regimen at discharge and insulin regimen. IVF discontinued as patient tolerating PO. S/p 100mg total furosemide given degree of fluid overload + KCl supplementation. - Lantus dose reduced to 12units HS only if BSG >120 + ISS due to hypoglycemic episodes - Diet: T2DM Right-sided Systolic CHF - Mild overload likely from aggressive rehydration during hospitalization - Recommend re-starting home lasix regimen - Metolazone held at discharge to prevent over-aggressive diuresis and risk of dehydration - Follow-up with Cardiology in 1 week (Dr. Mills) Acute renal failure - Baseline 0.8 - 0.9 - Cr 1.2 at discharge; has remained stable - Please repeat BMP 3-5 after discharge; prescription to be provided at discharge; results to be forwarded to PCP VTE Prophylaxis - Heparin 5000 units Q12H Code - DNR The patient had a good recovery and is being discharged home to self-care along with care from her Ilan. Her care was discussed in detail prior to discharge. She has been instructed to follow-up with PCP in 1 week. Instructed to see Cardiology in 1 week. She has psychiatry follow-up in 1 week. Total Time Spent: Greater than 30 minutes This includes examination of the patient, discharge planning, medication reconciliation, and communication with other providers. Discharge Instructions Please refer to the electronic Patient Visit Report (Discharge Instructions) for additional information. Additional Copies To Bin Patel M.D.; Jose Quinteros MD; Ilan Mills, DO Assessment/Plan Resident Physician Supervision Note: I was present with Dr. Keita during the history and exam. I discussed the case with the resident and agree with the findings and plan as documented in the note. Any exceptions or clarifications are listed here: Pt sleeping in chair ( and had fallen asleep while eating) - agree w/ dietary changes (puree'd) and avoidance of eating while sleepy. Responding well to medical management and tolerating metoprolol without issue. Mood appears congruent and, aside from somnolence, patient is agreeable and oriented on new haldol dosing. Will need close primary care follow up for further management and monitoring. Agree w/ resident management as noted above.
[2017-10-08] MEDS ORDERED: POLY1POW2 PO (12:15)
[2017-10-08] MEDS ORDERED: HALO1TAB PO (12:15)
[2017-10-08] MEDS ORDERED: LACT10SO17 PO (12:15)
[2017-10-08] MEDS ORDERED: LTHCR300 PO (12:15)
[2017-10-08] MEDS ORDERED: METO-217 PO (12:15)
[2017-10-08] MEDS ORDERED: HALO100I IM (12:15)
[2017-10-08] MEDS ORDERED: LEVE250T PO (12:15)
== END 2017-10-07 18:10 | disposition home health service (06) | DRG 637 ==
LOC: EDBD 08:43 → C.EDB 08:44 → C.MSICU 12:15 → CANRESERV 12:20 → ENRESERV 12:20 → C.2E 10-02 18:20 → ENRESERV 10-03 00:44 → C.MSICU 10-03 00:53 → ENRESERV 10-04 15:42 → C.2E 10-04 16:28
PROVIDERS: ADMIT Hospitalist; ATTEND Family Medicine
DX: E11.65 Type 2 diabetes mellitus with hyperglycemia (principal); E11.00 Type 2 diabetes mellitus with hyperosmolarity without nonketotic hyperglycemic-hyperosmolar coma (NKHHC); N17.9 Acute kidney failure, unspecified; I50.20 Unspecified systolic (congestive) heart failure; E87.2 Acidosis; E87.1 Hypo-osmolality and hyponatremia; I47.1 Supraventricular tachycardia; F06.33 Mood disorder due to known physiological condition with manic features; F25.9 Schizoaffective disorder, unspecified; F31.9 Bipolar disorder, unspecified; Z88.0 Allergy status to penicillin; G40.909 Epilepsy, unspecified, not intractable, without status epilepticus; I27.20 Pulmonary hypertension, unspecified; E86.0 Dehydration; Z91.19 Patient's noncompliance with other medical treatment and regimen; H05.20 Unspecified exophthalmos

== ENCOUNTER 2017-10-08 11:50 | Inpatient (IN) | payer OTHER ==
[~2017-10-08] VITALS: Ht 160 cm; Wt 109.0 kg
[~2017-10-08 11:50] MED LIST changes: -ASPI81TA28 PO; +HLD1 PO; +KPP250 PO; -LEVE500T PO; +LSX40 PO; +LSX80 PO; +METO50TA8 PO; +POTA10TA PO
[2017-10-08] MEDS ORDERED: ALBUT/IPRATROP 3MG/0.5MG NEB 3 ML VIAL INH STA (11:58)
--- NOTE | 2017-10-08 12:08 | EMERGENCY ROOM VISIT NOTE ---
History First contact with patient: 11:53 Stated Complaint: BREATHING DIFFICULTY History of Present Illness The patient is a 62 year old female who presents to the Emergency Room for evaluation of breathing difficulty. History per chart and EMS as patient essentially non-verbal as she seems somnolent and is just grunting to questions though awake and tracking. Patient discharged from [facility] last evening after admission for HONK, Seizure, Ileana, SVT, CHF, Renal Failure, mostly felt secondary to severe medical non- compliance. Apparently initially was doing well at home overnight until this morning when she developed worsening SHOB and wheezing. Used Neb without effect at home and called EMS. On arrival of EMS she was gasping for air and unable to breathing nor move any air in her lungs. Given single neb with resolution of symptoms. No labs nor IV obtained. Patient was not noted to be hypoxic during this. Patient grunts no to all questions. Unsure what makes breathing worse. Neb by EMS made better. No reported fevers nor hypoxia per EMS. arrived and notes she was talking and at her normal baseline self around 1am. Around 5 am she started becoming more distant, confused and difficulty ambulating. By 11am she had progressed to current state and thus called 911. He notes that this is similar to previous admission 1 week ago. Review of Systems See HPI for pertinent positives & negatives. Unable to obtain full ROS secondary to patient not able/willing to answer questions and just grunts. 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 (11) Metabolic alkalosis (12) Metabolic encephalopathy (13) Schizoaffective disorder, bipolar type without good prognostic features (14) Seizure-like activity (15) Seizure-like activity (16) Weakness Family History FH: HTN (hypertension) FH: diabetes mellitus Heart disease Social History Smoking Status: Never Smoker Alcohol Use: none Drug Use: none Marital Status: Housing Status: lives with family Occupation Status: retired Current/Historical Medications Scheduled Benzonatate (Tessalon Perles), 200 MG PO Q8 Cholecalciferol (Vitamin D3), 1,000 INTER.UNIT PO BID Furosemide (Furosemide), 40 MG PO QPM Furosemide (Furosemide), 80 MG PO QAM Haloperidol (Haloperidol), 2 MG PO BID Haloperidol Decanoate (Haldol Decanoate 100), 1 ML IM MONTHLY Insulin Aspart (Novolog), 0 SQ UD Insulin Glargine (Lantus Solostar), 14 UNITS SC AMPM Ipratropium-Albuterol (Combivent Respimat), 1 PUFFS INH QID Lactulose (Chronulac), 30 GM PO TID Levetiracetam (Keppra), 750 MG PO BID Lisinopril (Lisinopril), 5 MG PO QAM Palacios Carbonate (Palacios Carbonate), 300 MG PO QAM Palacios Carbonate (Palacios Carbonate ER), 300 MG PO HS Magnesium Oxide (Mag-Ox), 400 MG PO BID Metoprolol Succinate (Toprol Xl), 50 MG PO DAILY Nystatin (Nystop), 1 APPLN TOP BID Potassium Chloride (Micro-K Ext Rel), 160 MEQ PO QAM Potassium Chloride (K-Tabs), 40 MEQ PO DAILY@1200 Potassium Chloride (Micro-K Ext Rel), 80 MEQ PO QPM Scheduled PRN Polyethylene Glycol 3350 (Bulk (Polyethylene Glycol 3350), 17 GM PO DAILY PRN for Constipation Physical Exam Vital Signs Date Time Temp Pulse Resp B/P (MAP) Pulse Ox O2 Delivery O2 Flow Rate FiO2 10/08/17 14:29 90 16 129/77 95 Nasal Cannula 2.0 10/08/17 14:00 83 14 122/72 95 Nasal Cannula 2.0 10/08/17 13:50 82 17 122/73 95 Nasal Cannula 2.0 10/08/17 13:30 86 20 123/82 95 Nasal Cannula 2.0 10/08/17 13:15 88 16 133/64 93 Nasal Cannula 2.0 10/08/17 13:04 86 18 114/70 100 Nasal Cannula 2.0 10/08/17 12:15 97 Nasal Cannula 2.0 10/08/17 12:02 85 10/08/17 11:50 97 Nasal Cannula 2.0 10/08/17 11:50 36.5 86 20 134/76 97 Nasal Cannula 2.0 Physical Exam GENERAL: Patient is chronically unwell appearing and in minimal distress. EYES: Exophthalmos. No scleral icterus, unremarkable pupils. ENT: Large beefy tongue. Mucous membranes moist, no nasal congestion. NECK: No masses appreciated, no meningismus, trachea is midline. RESPIRATORY: No dyspnea. Clear to auscultation and equal bilaterally. No wheeze , no rhonchi. CARDIOVASCULAR: Regular rate and rhythm. No murmurs, rubs, gallops appreciated. GASTROINTESTINAL: Large protuberant abdomen without TTP, nor peritonitis. Soft. Bowel sounds positive. No masses appreciated. BACK: No midline tenderness, no CVA tenderness EXTREMITIES: Normal motion all extremities, no cyanosis, no edema. NEUROLOGIC: Awake looking around room, tracks without problem. Does not answer qeustions other than periodic grunting. Making odd extension movements with hands. No obvious motor or sensory deficits, nor apparent focal weakness, cranial nerves grossly intact. SKIN: No rash, no jaundice, no diaphoresis. Medical Decision & Procedures Laboratory Results 10/08/17 12:30 Red Blood Count 4.71, Mean Corpuscular Volume 90.4, Mean Corpuscular Hemoglobin 27.0, Mean Corpuscular Hemoglobin Concent 29.8, Mean Platelet Volume 9.7, Neutrophils (%) (Auto) 70.5, Lymphocytes (%) (Auto) 14.5, Monocytes (%) (Auto) 13.3, Eosinophils (%) (Auto) 0.5, Basophils (%) (Auto) 0.2, Neutrophils # (Auto ) 4.39, Lymphocytes # (Auto) 0.90, Monocytes # (Auto) 0.83, Eosinophils # (Auto ) 0.03, Basophils # (Auto) 0.01 10/08/17 12:30 Test 10/08/17 12:30 10/08/17 15:31 White Blood Count 6.22 K/uL (4.8-10.8) Red Blood Count 4.71 M/uL (4.2-5.4) Hemoglobin 12.7 g/dL (12.0-16.0) Hematocrit 42.6 % (37-47) Mean Corpuscular Volume 90.4 fL (80-100) Mean Corpuscular Hemoglobin 27.0 pg (25-34) Mean Corpuscular Hemoglobin Concent 29.8 g/dl (32-36) Platelet Count 268 K/uL (130-400) Mean Platelet Volume 9.7 fL (7.4-10.4) Neutrophils (%) (Auto) 70.5 % Lymphocytes (%) (Auto) 14.5 % Monocytes (%) (Auto) 13.3 % Eosinophils (%) (Auto) 0.5 % Basophils (%) (Auto) 0.2 % Neutrophils # (Auto) 4.39 K/uL (1.4-6.5) Lymphocytes # (Auto) 0.90 K/uL (1.2-3.4) Monocytes # (Auto) 0.83 K/uL (0.11-0.59) Eosinophils # (Auto) 0.03 K/uL (0-0.5) Basophils # (Auto) 0.01 K/uL (0-0.2) RDW Standard Deviation 58.7 fL (36.4-46.3) RDW Coefficient of Variation 18.2 % (11.5-14.5) Immature Granulocyte % (Auto) 1.0 % Immature Granulocyte # (Auto) 0.06 K/uL (0.00-0.02) Nucleated RBC Absolute Count (auto) 0.15 K/uL (0-0) Nucleated Red Blood Cells % 2.4 % Red Blood Cell Morphology Unremarkable Venous Blood pH 7.31 (7.36-7.41) Venous Blood Partial Pressure CO2 68 mmHg (38.0-50.0) Venous Blood Partial Pressure O2 37 mmHg Venous Blood HCO3 34 mmol/L Venous Blood Oxygen Saturation 65.0 % Venous Blood Base Excess 5.3 mEq/L Anion Gap 2.0 mmol/L (3-11) Estimated GFR () 54.4 Estimated GFR (Non- 47.0 BUN/Creatinine Ratio 15.9 (10-20) Calcium Level 9.4 mg/dl (8.5-10.1) Magnesium Level 2.2 mg/dl (1.8-2.4) Troponin I 0.026 ng/ml (0-0.045) Pro-B-Type Natriuretic Peptide 1247 pg/ml (0-900) Palacios Level 1.7 mMOL/L (0.6-1.2) Medications Administered Medications (Trade) Dose Ordered Sig/Nanette Route Start Time Stop Time Status Last Admin Dose Admin Albuterol/ Ipratropium (Duoneb) 3 ml NOW STAT INH 10/08/17 11:58 10/08/17 12:00 DC 10/08/17 11:58 3 ML ECG Per My Interpretation Indication: altered mental status Rate (beats per minute): 81 Rhythm: normal sinus Findings: no acute ischemic change, left axis deviation, other (QTC 448) Medical Decision Differential: Toxicological, Infectious, Stroke, SAH, Trauma, Electrolyte Abnormality, Hypoglycemia, Alcohol Intoxication, Drug Intoxication, Cardiac Abnormality, Sepsis, Meningitis/Encephalitis, Trauma, Excited Delirium, Serotonin Syndrome, Psychiatric, amongst other pathologies entertained. 62 yr old female with complex PMH and psychiatric history arrives for worsening mental status since DC from [facility] last evening associated with reported SHOB that resolved with nebs by EMS. Given some further nebs here. She was quite altered on arrival, but more in the setting of drug confusion than infectious nor hypoxic etiology, with extrapyramidal symptoms noted. Review chart reveals recent increase in Haldol and I am somewhat suspicious for this being the cause. Furthermore her Palacios is above therapeutic range, though no clear evidence of overt overdose of this. She does not appear infectious nor in serotonin syndrome for that matter. Noted to have significant improvement over next 4 hours in ED though given initial presentation she clearly can not go home without further monitoring/management. Head Trauma GCS Score: 15 Medication Reconcilliation Current Medication List: was personally reviewed by me Blood Pressure Screening Patient's blood pressure: Normal blood pressure Impression Primary Impression: Altered mental status Additional Impressions: Extrapyramidal and movement disorder Elevated lithium level Departure Information Referrals Bin Patel M.D. (PCP) Problem Qualifiers
[2017-10-08] MEDS ORDERED: HALO100I IM (12:15)
[2017-10-08] MEDS ORDERED: METO-217 PO (12:15)
[2017-10-08] MEDS ORDERED: LTHCR300 PO (12:15)
[2017-10-08] MEDS ORDERED: POLY1POW2 PO (12:15)
[2017-10-08] MEDS ORDERED: HALO1TAB PO (12:15)
[2017-10-08] MEDS ORDERED: LACT10SO17 PO (12:15)
[2017-10-08] MEDS ORDERED: LEVE250T PO (12:15)
[2017-10-08 12:56] LABS: HEMATOCRIT 42.6 % (37-47); HEMOGLOBIN 12.7 g/dL (12.0-16.0); MEAN CELL VOLUME 90.4 fL (80-100); MEAN CORPUSCULAR HGB CONC 29.8 g/dl (32-36); MEAN PLATELET VOLUME 9.7 fL (7.4-10.4); NUCLEATED RED BLOOD CELL ABS 0.15 K/uL (0-0); PLATELET COUNT 268 K/uL (130-400); RED CELL DISTRIBUTION WIDTH CV 18.2 % (11.5-14.5); RED CELL DISTRIBUTION WIDTH SD 58.7 fL (36.4-46.3); WHITE BLOOD COUNT 6.22 K/uL (4.8-10.8)
[2017-10-08 13:01] LABS: BLOOD UREA NITROGEN 20 mg/dl (7-18); CALCIUM 9.4 mg/dl (8.5-10.1); CARBON DIOXIDE 35 mmol/L (21-32); CREATININE 1.23 mg/dl (0.60-1.20); GLUCOSE 117 mg/dl (70-99); POTASSIUM 4.4 mmol/L (3.5-5.1); SODIUM 138 mmol/L (136-145)
--- NOTE | 2017-10-08 13:05 | DIAGNOSTIC IMAGING REPORT ---
HEAD WITHOUT CONTRAST (CT) CT DOSE: 537.48 mGy.cm HISTORY: Mental status change AMS TECHNIQUE: Multiaxial CT images of the head were performed without the use of intravenous contrast. A dose lowering technique was utilized adhering to the principles of ALARA. Comparison: 10/01/2017 Findings: The paranasal sinuses and mastoid air cells are clear. The calvarium and skull base are intact. The ventricles and sulci are within normal limits. There is no mass, hematoma, midline shift, or acute infarct. Chronic bilateral orbital proptosis. Minimal age-related atrophy and chronic small vessel change Impression: No acute intracranial abnormality. No change from the prior study The above report was generated using voice recognition software. It may contain grammatical, syntax or spelling errors. Electronically signed by: Jeff Hahn M.D. 10/08/2017 1:04 PM Dictated Date/Time: 10/08/2017 1:03 PM
[2017-10-08 13:15] LABS: BASO % 0.2 %; BASO ABS # 0.01 K/uL (0-0.2); EOS % 0.5 %; EOS ABS # 0.03 K/uL (0-0.5); IG# 0.06 K/uL (0.00-0.02); LYMPH % 14.5 %; MONO % 13.3 %; MONO ABS # 0.83 K/uL (0.11-0.59); NEUT % 70.5 %; NEUT ABS # 4.39 K/uL (1.4-6.5)
--- NOTE | 2017-10-08 13:36 | DIAGNOSTIC IMAGING REPORT ---
CHEST ONE VIEW PORTABLE CLINICAL HISTORY: Shob dyspnea COMPARISON STUDY: 10/01/2017. FINDINGS: Stable cardiomegaly. Increased prominence of pulmonary vasculature compared to the prior study. Diaphragms are smooth. IMPRESSION: Congestive heart failure The above report was generated using voice recognition software. It may contain grammatical, syntax or spelling errors. Electronically signed by: Jeff Hahn M.D. 10/08/2017 1:35 PM Dictated Date/Time: 10/08/2017 1:34 PM
[2017-10-08] MEDS ORDERED: GLUCAGON FOR INJ 1 MG VIAL SQ PRN (15:45)
[2017-10-08] MEDS ORDERED: GLUCOSE 10 TABS/TUBE PO PRN (15:45)
[2017-10-08] MEDS ORDERED: ZOLPIDEM TARTRATE 5 MG TAB PO PRN ×2 (15:45)
[2017-10-08] MEDS ORDERED: MAGNESIUM HYDROXIDE SUSP 30 ML UDC PO PRN (15:45)
[2017-10-08] MEDS ORDERED: ALUMINUM/MAGNESIUM/SIMETH (MAALOX MAX) 30 ML UDC PO PRN (15:45)
[2017-10-08] MEDS ORDERED: POLYETHYLENE (MIRALAX) 17 GM PACK PO PRN (15:45)
[2017-10-08] MEDS ORDERED: GLUCOSE 40% GEL 15 GM TUBE PO PRN (15:45)
[2017-10-08] MEDS ORDERED: ONDANSETRON INJ 2 MG/ML 2 ML VIAL IV PRN (15:45)
[2017-10-08] MEDS ORDERED: DEXTROSE 50% 50 ML SYR IV PRN (15:45)
[2017-10-08 16:41] VITALS: BP 107/67; PULSE 87; TEMP 37; O2SAT 95
--- NOTE | 2017-10-08 17:28 | History and Physical ---
History & Physical Date & Time of Service: Oct 08, 2017 at 15:45 Chief Complaint: Breathing Difficulty Primary Care Physician: Bin Patel M.D. History of Present Illness patient was recently admitted to the hospital and treated for hyperglycemia and LISBETH, metolazone was held and she was started on haldol 2 mg TID and continued on Hosmer 300 TID. As per the hospital yesterday she was slightly lethargic. He was able to help her to get intubated. She woke up. This morning she was completely obtunded. Nonverbal. Had increased swelling in her body lower extremity. She was brought to the ED she is nonverbal and obtunded.. ABG PCO2 of 60 inches but is for her. Her lithium level was 1.7, at the upper limit of normal is 1.2. And she started feeling slightly better while in the ED. Appears to be the effect of the haldol Past Medical/Surgical History Medical Problems: (1) Acute CHF (2) Acute renal failure (ARF) (3) ACUTE RENAL FAILURE NOS (4) Acute respiratory failure with hypoxia and hypercapnia (5) Altered mental status (6) Altered mental status (7) Anasarca (8) Anemia (9) Bilateral lower extremity edema (10) BIPOL I DIS, SING MANIC EPIS, SEVERE, SPEC W PSYCHOTIC BEHAV (11) Change in mental status (12) CHF (congestive heart failure) (13) CHF (congestive heart failure) (14) CHF exacerbation (15) CO2 retention (16) CONGESTIVE HEART FAILURE NOS (17) Dehydration (18) DIAB ROSA WO COMPL, TYPE II OR UNSPEC TYPE, NOT UNCNTRLD (19) DKA (diabetic ketoacidoses) (20) Elevated troponin (21) Fall (22) HONK, new right arm weakness possible need to rule out CVA (23) Hyperammonemia (24) Hyperammonemia (25) Hyperammonemia (26) Hyperammonemia (27) Hypercalcemia (28) Hypercarbia (29) Hypercarbia (30) Hypercarbia (31) Hyperglycemia (32) Hyperglycemia (33) Hyperglycemia without ketosis (34) Hyperkalemia (35) Hyperosmolality (36) Hypoglycemia (37) Hypokalemia (38) Hypokalemia (39) Hyponatremia (40) Hyponatremia (41) Hyponatremia (42) Hyponatremia (43) Hypoxia (44) Hypoxia (45) Left arm swelling (46) Lethargy (47) [place] toxicity (48) Lower extremity weakness (49) Metabolic alkalosis (50) Metabolic encephalopathy (51) Renal insufficiency (52) Schizoaffective disorder, bipolar type without good prognostic features (53) Seizure (54) Seizure-like activity (55) Seizure-like activity (56) SOB (shortness of breath) (57) Systolic CHF, acute on chronic (58) Weakness (59) Weakness Family History FH: HTN (hypertension) FH: diabetes mellitus Heart disease Social History Smoking Status: Unknown if Ever Smoked Drug Use: none Marital Status: Housing status: other Occupational Status: retired Immunizations History of Influenza Vaccine: Unknown Influenza Vaccine Date: Sep 27, 2009 History of Tetanus Vaccine?: Unknown History of Pneumococcal: No Pneumococcal Date: Jun 28, 2007 History of Hepatitis B Vaccine: Unknown Allergies Coded Allergies: Penicillins (Unverified Allergy, Unknown, unknown, 10/01/17) Home Medications Scheduled Benzonatate (Tessalon Perles), 200 MG PO Q8 Cholecalciferol (Vitamin D3), 1,000 INTER.UNIT PO BID Furosemide (Furosemide), 40 MG PO QPM Furosemide (Furosemide), 80 MG PO QAM Haloperidol (Haloperidol), 2 MG PO BID Haloperidol Decanoate (Haldol Decanoate 100), 1 ML IM MONTHLY Insulin Aspart (Novolog), 0 SQ UD Insulin Glargine (Lantus Solostar), 14 UNITS SC AMPM Ipratropium-Albuterol (Combivent Respimat), 1 PUFFS INH QID Lactulose (Chronulac), 30 GM PO TID Levetiracetam (Keppra), 750 MG PO BID Lisinopril (Lisinopril), 5 MG PO QAM [place] Carbonate ([place]mer Carbonate), 300 MG PO QAM [place] Carbonate ([place]osmer Carbonate ER), 300 MG PO HS Magnesium Oxide (Mag-Ox), 400 MG PO BID Metoprolol Succinate (Toprol Xl), 50 MG PO DAILY Nystatin (Nystop), 1 APPLN TOP BID Potassium Chloride (Micro-K Ext Rel), 160 MEQ PO QAM Potassium Chloride (K-Tabs), 40 MEQ PO DAILY@1200 Potassium Chloride (Micro-K Ext Rel), 80 MEQ PO QPM Scheduled PRN Polyethylene Glycol 3350 (Bulk (Polyethylene Glycol 3350), 17 GM PO DAILY PRN for Constipation Review of Systems Due to patient mental status review of system was unobtainable/unreliable We'll attempt to obtain review of system as needed from staff and family Physical Exam Vital Signs Date Time Temp Pulse Resp B/P (MAP) Pulse Ox O2 Delivery O2 Flow Rate FiO2 10/08/17 14:29 90 16 129/77 95 Nasal Cannula 2.0 10/08/17 14:00 83 14 122/72 95 Nasal Cannula 2.0 10/08/17 13:50 82 17 122/73 95 Nasal Cannula 2.0 10/08/17 13:30 86 20 123/82 95 Nasal Cannula 2.0 10/08/17 13:15 88 16 133/64 93 Nasal Cannula 2.0 10/08/17 13:04 86 18 114/70 100 Nasal Cannula 2.0 10/08/17 12:15 97 Nasal Cannula 2.0 10/08/17 12:02 85 10/08/17 11:50 97 Nasal Cannula 2.0 10/08/17 11:50 36.5 86 20 134/76 97 Nasal Cannula 2.0 Physical examination General patient appears to be comfortable, not in acute distress, morbidly obese HEENT: Atraumatic , normocephalic /no jaundice /no pallor /anicteric /no dry mucous membrane /normal external ear inspection Neck: Supple /no swelling /central trach Heart: S1/S2 normal/regular rate and rhythm/no gallop /no rub /no murmur Lungs: Clear to auscultation bilaterally/normal chest with expansion/no rhonchi/ no rales/no wheezing/no use of accessory muscles of respiration Abdomen: Soft/nontender/no guarding/no rebound/no organomegaly/no pulsatile mass Musculoskeletal: No swelling/no edema/no tenderness/normal range of motion Neuro exam: Lethargic but when awakening was responsive, was able to talk to me , much better than her presentation to the ED physician cranial nerves II through XII appear to be intact/sensation intact/moves all extremities/no abnormal movements Psychiatric evaluation: No depressed mood/normal affect Skin: No rash on exposed skin area/no erythema Extremity: Normal pulse/no pitting edema/no clubbing or cyanosis Endocrine/lymphatic: No obvious lymphadenopathy /no lymphedema Diagnostics Laboratory Results Results Past 24 Hours Test 10/08/17 12:30 10/08/17 15:31 Range/Units White Blood Count 6.22 4.8-10.8 K/uL Red Blood Count 4.71 4.2-5.4 M/uL Hemoglobin 12.7 12.0-16.0 g/dL Hematocrit 42.6 37-47 % Mean Corpuscular Volume 90.4 80-100 fL Mean Corpuscular Hemoglobin 27.0 25-34 pg Mean Corpuscular Hemoglobin Concent 29.8 32-36 g/dl Platelet Count 268 130-400 K/uL Mean Platelet Volume 9.7 7.4-10.4 fL Neutrophils (%) (Auto) 70.5 % Lymphocytes (%) (Auto) 14.5 % Monocytes (%) (Auto) 13.3 % Eosinophils (%) (Auto) 0.5 % Basophils (%) (Auto) 0.2 % Neutrophils # (Auto) 4.39 1.4-6.5 K/uL Lymphocytes # (Auto) 0.90 1.2-3.4 K/uL Monocytes # (Auto) 0.83 0.11-0.59 K/uL Eosinophils # (Auto) 0.03 0-0.5 K/uL Basophils # (Auto) 0.01 0-0.2 K/uL RDW Standard Deviation 58.7 36.4-46.3 fL RDW Coefficient of Variation 18.2 11.5-14.5 % Immature Granulocyte % (Auto) 1.0 % Immature Granulocyte # (Auto) 0.06 0.00-0.02 K/uL Nucleated RBC Absolute Count (auto) 0.15 0-0 K/uL Nucleated Red Blood Cells % 2.4 % Red Blood Cell Morphology Unremarkable Venous Blood pH 7.31 7.36-7.41 Venous Blood Partial Pressure CO2 68 38.0-50.0 mmHg Venous Blood Partial Pressure O2 37 mmHg Venous Blood HCO3 34 mmol/L Venous Blood Oxygen Saturation 65.0 % Venous Blood Base Excess 5.3 mEq/L Sodium Level 138 136-145 mmol/L Potassium Level 4.4 3.5-5.1 mmol/L Chloride Level 101 98-107 mmol/L Carbon Dioxide Level 35 21-32 mmol/L Anion Gap 2.0 3-11 mmol/L Blood Urea Nitrogen 20 7-18 mg/dl Creatinine 1.23 0.60-1.20 mg/dl Estimated GFR () 54.4 Estimated GFR (Non- 47.0 BUN/Creatinine Ratio 15.9 10-20 Random Glucose 117 70-99 mg/dl Calcium Level 9.4 8.5-10.1 mg/dl Magnesium Level 2.2 1.8-2.4 mg/dl Troponin I 0.026 0-0.045 ng/ml Pro-B-Type Natriuretic Peptide 1247 0-900 pg/ml Hosmer Level 1.7 0.6-1.2 mMOL/L Microbiology Results 10/08/17 Blood Culture, Ordered Pending 10/08/17 Blood Culture, Ordered Pending 10/08/17 Urine Culture, Ordered Pending Diagnostic Radiology HEAD WITHOUT CONTRAST (CT) CT DOSE: 537.48 mGy.cm HISTORY: Mental status change AMS TECHNIQUE: Multiaxial CT images of the head were performed without the use of intravenous contrast. A dose lowering technique was utilized adhering to the principles of ALARA. Comparison: 10/01/2017 Findings: The paranasal sinuses and mastoid air cells are clear. The calvarium and skull base are intact. The ventricles and sulci are within normal limits. There is no mass, hematoma, midline shift, or acute infarct. Chronic bilateral orbital proptosis. Minimal age-related atrophy and chronic small vessel change Impression: No acute intracranial abnormality. No change from the prior study Impression Assessment and Plan patient was recently admitted to the hospital and treated for hyperglycemia and LISBETH, metolazone was held and she was started on haldol 2 mg TID and continued on Hos[place] 300 TID. Presented to the hospital, regained consciousness, appears to be related to the hospital. Assessment/plan Lethargy/obtundation, likely secondary to Haldol, lithium increased level Admit to telemetry under observation Already improving so far Hold Haldol and lithium today Can be started tomorrow CT scan was negative Obtain ammonia level Obtain Keppra level Diabetes mellitus type 2 Continue Lantus Sliding scale insulin History of seizure disorder Continue Keppra Obtain Keppra level Paroxysmal supraventricular tach. Continue metoprolol Right-sided congestive heart failure Continue Lasix 40 mg IV twice daily Continue to monitor Metolazone DVT prophylaxis with heparin As per discussion with patient has been, he said that he wanted us to try everything and feels he does not want to live on a machine. He understands that that means she will be full code as we do not know during the code going to work,. So made her full code. Resuscitation Status VTE Prophylaxis Will order VTE Prophylaxis: Yes
[2017-10-08 17:35] VITALS: O2SAT 98; BMI 41.4
[2017-10-08] MEDS: INSULIN ASPART 100 UNITS/ML 3 ML PEN SC SCH (18:00)
[2017-10-08] MEDS: INSULIN GLARGINE SOLOSTAR 100 UNITS/ML 3 ML PEN SC SCH (18:30)
[2017-10-08] MEDS ORDERED: IV FLUIDS COMPLETED PRN (19:30)
[2017-10-08 19:37] VITALS: BP 111/63; PULSE 101; TEMP 37; O2SAT 93
[2017-10-08] MEDS: FUROSEMIDE INJ 40 MG in SYRINGE 0 ML IV SCH (20:51)
[2017-10-08] MEDS: LACTULOSE SYRUP 30 GM/45 ML UDP PO SCH ×2 (20:51→21:00)
[2017-10-08] MEDS: IPRATROPIUM BROMIDE/ALBUTEROL respimat INH INH SCH (20:51)
[2017-10-08] MEDS: LEVETIRACETAM 250 MG TAB PO SCH (20:51)
[2017-10-08] MEDS: MAGNESIUM OXIDE 400 MG TAB PO SCH (20:52)
[2017-10-08] MEDS: POTASSIUM CHLORIDE 20 MEQ TABCR PO SCH (20:53)
[2017-10-08] MEDS: NYSTATIN POWDER 15GM BTL EXT SCH (21:36)
[2017-10-08] MEDS: HEPARIN SOD 5000 UNIT/0.5 ML CARP SQ SCH (21:40)
[2017-10-08 23:52] VITALS: BP 108/62; PULSE 78; TEMP 36.7; O2SAT 97
[2017-10-09] VITALS (8 sets, daily range): BP systolic 95–125; BP diastolic 59–72; PULSE 77–88; TEMP 36.6–37.9; O2SAT 90–94
[2017-10-09 03:36] LABS: HEMATOCRIT 40.6 % (37-47); HEMOGLOBIN 11.8 g/dL (12.0-16.0); MEAN CELL VOLUME 92.1 fL (80-100); MEAN CORPUSCULAR HEMOGLOBIN 26.8 pg (25-34); MEAN CORPUSCULAR HGB CONC 29.1 g/dl (32-36); MEAN PLATELET VOLUME 10.4 fL (7.4-10.4); NUCLEATED RED BLOOD CELL ABS 0.13 K/uL (0-0); PLATELET COUNT 274 K/uL (130-400); RED CELL DISTRIBUTION WIDTH CV 18.6 % (11.5-14.5); RED CELL DISTRIBUTION WIDTH SD 60.3 fL (36.4-46.3); WHITE BLOOD COUNT 5.85 K/uL (4.8-10.8)
[2017-10-09 03:48] LABS: BASO % 0.2 %; BASO ABS # 0.01 K/uL (0-0.2); EOS % 0.7 %; EOS ABS # 0.04 K/uL (0-0.5); IG# 0.06 K/uL (0.00-0.02); LYMPH % 12.6 %; LYMPH ABS # 0.74 K/uL (1.2-3.4); MONO % 19.5 %; MONO ABS # 1.14 K/uL (0.11-0.59); NEUT ABS # 3.86 K/uL (1.4-6.5)
[2017-10-09 04:05] LABS: ALBUMIN 2.7 gm/dl (3.4-5.0); CALCIUM 8.9 mg/dl (8.5-10.1); CREATININE 0.97 mg/dl (0.60-1.20); PHOSPHORUS 3.2 mg/dl (2.5-4.9); TOTAL PROTEIN 6.7 gm/dl (6.4-8.2)
[2017-10-09] MEDS: INSULIN ASPART 100 UNITS/ML 3 ML PEN SC SCH ×4 (06:00→21:20)
[2017-10-09] MEDS: METOPROLOL SUCC 50MG EXT REL TAB PO SCH ×2 (08:18→09:00)
[2017-10-09] MEDS: LISINOPRIL 5 MG TAB PO SCH ×2 (08:18→09:00)
[2017-10-09] MEDS: POTASSIUM CHLORIDE 20 MEQ TABCR PO SCH ×2 (08:19→21:00)
[2017-10-09] MEDS: IPRATROPIUM BROMIDE/ALBUTEROL respimat INH INH SCH ×4 (09:00→21:56)
[2017-10-09] MEDS: MAGNESIUM OXIDE 400 MG TAB PO SCH ×2 (09:00→21:12)
[2017-10-09] MEDS: HEPARIN SOD 5000 UNIT/0.5 ML CARP SQ SCH ×2 (09:00→21:21)
[2017-10-09] MEDS: LEVETIRACETAM 250 MG TAB PO SCH ×3 (09:00→21:10)
[2017-10-09] MEDS: INSULIN GLARGINE SOLOSTAR 100 UNITS/ML 3 ML PEN SC SCH (09:00)
[2017-10-09] MEDS: LACTULOSE SYRUP 30 GM/45 ML UDP PO SCH ×3 (09:00→21:09)
[2017-10-09] MEDS: NYSTATIN POWDER 15GM BTL EXT SCH ×2 (09:14→21:58)
[2017-10-09] MEDS: FUROSEMIDE INJ 40 MG in SYRINGE 0 ML IV SCH ×2 (09:16→21:10)
[2017-10-09] MEDS ORDERED: NURSING VERBAL MED ORDER ONE (13:15)
--- NOTE | 2017-10-09 16:00 | Family Medicine Progress Note ---
Progress Note Date of Service Oct 09, 2017. Subjective Pt evaluation today including: conversation w/ patient, conversation w/ family , physical exam, chart review, lab review, review of studies, conversation w/ advertising sales consultant Pt seen and examined at bedside. More alert now than even at previous discharge - answering questions tangentially, mostly regarding that she is hungry having not eaten well yesterday. She denies pain, vision changes or shortness of breath. Her spouse reiterates her limited mental status yesterday and is pleased with her improvement. Constitutional: No fever, No chills, No fatigue Respiratory: No cough, No sputum, No wheezing, No shortness of breath Cardiovascular: No chest pain, No edema, No palpitations Abdomen: No pain, No nausea, No vomiting, No diarrhea, No constipation Neurologic: No weakness, No numbness/tingling Skin: No rash, No new/changing skin lesions, No bleeding Medications Current Inpatient Medications Medications (Trade) Dose Ordered Sig/Nanette Route Start Time Stop Time Status Last Admin Dose Admin Insulin Glargine (Lantus Solostar Pen) 8 units DAILY SC 10/08/17 18:00 11/07/17 17:59 10/08/17 18:30 8 UNITS Albuterol/ Ipratropium (Combivent Respimat Inh) 1 puffs QID INH 10/08/17 21:00 11/07/17 20:59 10/09/17 13:10 1 PUFFS Lactulose (Chronulac Syrup) 30 gm TID PO 10/08/17 21:00 11/07/17 20:59 10/09/17 13:16 30 GM Levetiracetam (Keppra Tab) 750 mg BID PO 10/08/17 21:00 11/07/17 20:59 10/09/17 10:00 750 MG Lisinopril (Zestril Tab) 5 mg QAM PO 10/09/17 09:00 11/08/17 08:59 Magnesium Oxide (Mag-Ox Tab) 400 mg BID PO 10/08/17 21:00 11/07/17 20:59 10/08/17 20:52 400 MG Metoprolol Succinate (Toprol Xl Tab) 50 mg DAILY PO 10/09/17 09:00 11/08/17 08:59 Nystatin (Mycostatin Powder) 1 appln BID EXT 10/08/17 21:00 11/07/17 20:59 10/09/17 09:14 1 APPLN Potassium Chloride (Klor-Con Tab) 80 meq QPM PO 10/08/17 21:00 11/07/17 20:59 10/08/17 20:53 80 MEQ Potassium Chloride (Klor-Con Tab) 160 meq QAM PO 10/09/17 09:00 11/08/17 08:59 Polyethylene (Miralax Powder Packet) 17 gm DAILY PRN PO 10/08/17 15:45 11/07/17 15:44 Heparin Sodium (Porcine) (Heparin Sq 5000 Unit/0.5ml) 5,000 unit Q12 SQ 10/08/17 21:00 11/07/17 20:59 10/08/17 21:40 5,000 UNIT Acetaminophen (Tylenol Tab) 650 mg Q4H PRN PO 10/08/17 15:45 11/07/17 15:44 Al Hydrox/Mg Hydrox/Simethicone (Maalox Max Susp) 15 ml Q4H PRN PO 10/08/17 15:45 11/07/17 15:44 Magnesium Hydroxide (Milk Of Magnesia Susp) 30 ml Q12H PRN PO 10/08/17 15:45 11/07/17 15:44 Ondansetron HCl (Zofran Inj) 4 mg Q6H PRN IV 10/08/17 15:45 11/07/17 15:44 Glucose (Glucose 40% Gel) 15-30 GRAMS 15 GRAMS... UD PRN PO 10/08/17 15:45 11/07/17 15:44 10/09/17 06:19 15 GM Glucose (Glucose Chew Tab) 4-8 Tablets 4 Tabl... UD PRN PO 10/08/17 15:45 11/07/17 15:44 Dextrose (Dextrose 50% 50ML Syringe) 25-50ML OF 50% DW IV FOR... UD PRN IV 10/08/17 15:45 11/07/17 15:44 10/09/17 06:47 25 ML Glucagon (Glucagon Inj) 1 mg UD PRN SQ 10/08/17 15:45 11/07/17 15:44 Furosemide 40 mg/ Syringe 4 ml @ 4 mls/min BID IV 10/08/17 21:00 11/07/17 20:59 10/09/17 09:16 4 MLS/MIN Miscellaneous (Iv Fluids Completed) 1 ea PRN PRN N/A 10/08/17 19:30 10/08/18 19:29 Insulin Aspart (novoLOG ASPART) SLIDING SCALE If C... ACHS SC 10/09/17 16:30 11/08/17 16:29 Objective Vital Signs Date Time Temp Pulse Resp B/P (MAP) Pulse Ox O2 Delivery O2 Flow Rate FiO2 10/09/17 14:58 36.6 80 18 121/72 (88) 94 Nasal Cannula 2.0 10/09/17 12:00 94 Nasal Cannula 2.0 10/09/17 08:00 94 Nasal Cannula 2.0 10/09/17 06:59 36.9 80 20 95/59 (71) 94 2.0 10/09/17 04:30 Nasal Cannula 2.0 10/09/17 04:05 36.8 82 20 102/67 (79) 94 2.0 10/09/17 00:30 Nasal Cannula 2.0 10/08/17 23:52 36.7 78 18 108/62 (77) 97 2.0 10/08/17 20:15 Nasal Cannula 2.0 10/08/17 19:37 37.0 101 24 111/63 (79) 93 2.0 10/08/17 17:35 98 Nasal Cannula 2.0 10/08/17 16:41 37.0 87 20 107/67 (80) 95 Room Air Physical Exam General Appearance: no apparent distress, + obese Eyes: PERRL, EOMI ENT: normal ENT inspection Respiratory/Chest: chest non-tender, lungs clear, normal breath sounds Cardiovascular: regular rate, rhythm, no gallop, no murmur Abdomen: normal bowel sounds, non tender, soft, no organomegaly 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: alert, normal mood/affect, + disoriented (ORIENTED TO PERSON ONLY) Laboratory Results 10/09/17 03:24 Red Blood Count 4.41, Mean Corpuscular Volume 92.1, Mean Corpuscular Hemoglobin 26.8, Mean Corpuscular Hemoglobin Concent 29.1, Mean Platelet Volume 10.4, Neutrophils (%) (Auto) 66.0, Lymphocytes (%) (Auto) 12.6, Monocytes (%) (Auto) 19.5, Eosinophils (%) (Auto) 0.7, Basophils (%) (Auto) 0.2, Neutrophils # (Auto ) 3.86, Lymphocytes # (Auto) 0.74, Monocytes # (Auto) 1.14, Eosinophils # (Auto ) 0.04, Basophils # (Auto) 0.01 10/09/17 03:24 Test 10/08/17 16:50 10/08/17 17:05 10/09/17 03:24 10/09/17 11:45 Urine Color YELLOW Urine Appearance CLEAR (CLEAR) Urine pH 6.5 (4.5-7.5) Urine Specific [place] 1.012 (1.000-1.030) Urine Protein NEG (NEG) Urine Glucose (UA) NEG (NEG) Urine Ketones NEG (NEG) Urine Occult Blood TRACE (NEG) Urine Nitrite NEG (NEG) Urine Bilirubin NEG (NEG) Urine Urobilinogen NEG (NEG) Urine Leukocyte Esterase NEG (NEG) Urine WBC (Auto) 1-5 /hpf (0-5) Urine RBC (Auto) 0-4 /hpf (0-4) Urine Hyaline Casts (Auto) 5-10 /lpf (0-5) Urine Epithelial Cells (Auto) >30 /lpf (0-5) Urine Bacteria (Auto) NEG (NEG) Ammonia 26.5 umol/L (11-32) White Blood Count 5.85 K/uL (4.8-10.8) Red Blood Count 4.41 M/uL (4.2-5.4) Hemoglobin 11.8 g/dL (12.0-16.0) Hematocrit 40.6 % (37-47) Mean Corpuscular Volume 92.1 fL (80-100) Mean Corpuscular Hemoglobin 26.8 pg (25-34) Mean Corpuscular Hemoglobin Concent 29.1 g/dl (32-36) Platelet Count 274 K/uL (130-400) Mean Platelet Volume 10.4 fL (7.4-10.4) Neutrophils (%) (Auto) 66.0 % Lymphocytes (%) (Auto) 12.6 % Monocytes (%) (Auto) 19.5 % Eosinophils (%) (Auto) 0.7 % Basophils (%) (Auto) 0.2 % Neutrophils # (Auto) 3.86 K/uL (1.4-6.5) Lymphocytes # (Auto) 0.74 K/uL (1.2-3.4) Monocytes # (Auto) 1.14 K/uL (0.11-0.59) Eosinophils # (Auto) 0.04 K/uL (0-0.5) Basophils # (Auto) 0.01 K/uL (0-0.2) RDW Standard Deviation 60.3 fL (36.4-46.3) RDW Coefficient of Variation 18.6 % (11.5-14.5) Immature Granulocyte % (Auto) 1.0 % Immature Granulocyte # (Auto) 0.06 K/uL (0.00-0.02) Nucleated RBC Absolute Count (auto) 0.13 K/uL (0-0) Nucleated Red Blood Cells % 2.2 % Stomatocytes 1+ Anion Gap 0.0 mmol/L (3-11) Est Creatinine Clear Calc Drug Dose 70.1 ml/min Estimated GFR () 72.5 Estimated GFR (Non- 62.6 BUN/Creatinine Ratio 15.4 (10-20) Lactic Acid Level 1.0 mmol/L (0.4-2.0) Calcium Level 8.9 mg/dl (8.5-10.1) Phosphorus Level 3.2 mg/dl (2.5-4.9) Magnesium Level 2.0 mg/dl (1.8-2.4) Total Bilirubin 0.8 mg/dl (0.2-1) Aspartate Amino Transf (AST/SGOT) 104 U/L (15-37) Alanine Aminotransferase (ALT/SGPT) 50 U/L (12-78) Alkaline Phosphatase 343 U/L (45-117) Total Protein 6.7 gm/dl (6.4-8.2) Albumin 2.7 gm/dl (3.4-5.0) Globulin 4.0 gm/dl (2.5-4.0) Albumin/Globulin Ratio 0.7 (0.9-2) Chemistry Specimen Hemolysis Bedside Glucose 157 mg/dl (70-90) Test 10/09/17 15:25 Assessment and Plan (1) Altered mental status Assessment & Plan: - significantly improved from admission note, close to baseline - discussed case w/ Dr. Goodrich (psychiatry) - she is in agreement that the daytime haldol was likely the culprit - will d/c daytime dose haldol and decrease dose - start haldol 4mg PO tonight (2) [place] toxicity Assessment & Plan: - non-trough level @ 1.7, which is still somewhat elevated, but renal function not impacted - restart lithium in AM per Dr. Goodrich recommendation and monitor as outpatient (3) Congestive heart failure (CHF) Assessment & Plan: - reports no shortness of breath and tolerating present respiratory status well, stable from discharge. (4) Schizoaffective disorder, bipolar type without good prognostic features Assessment & Plan: - per psychiatry, discuss with family regarding similar situations in the future prior to discharge: recommend if patient appears to be fatigued or obtunded, but not overtly ill, call outpatient provider line prior to hospital transfer DMII - continue lantus/ISS
[2017-10-09] MEDS ORDERED: HALOPERIDOL 1 MG TAB PO SCH (21:00)
[2017-10-09] MEDS: HALOPERIDOL 1 MG TAB PO SCH (21:56)
[2017-10-10 04:42] VITALS: BP 114/80; PULSE 91; TEMP 36.5; O2SAT 100
[2017-10-10 07:20] VITALS: BP 134/79; PULSE 97; TEMP 36.4; O2SAT 92
[2017-10-10] MEDS: INSULIN GLARGINE SOLOSTAR 100 UNITS/ML 3 ML PEN SC SCH (08:26)
[2017-10-10] MEDS: INSULIN ASPART 100 UNITS/ML 3 ML PEN SC SCH ×4 (08:26→20:51)
[2017-10-10] MEDS: IPRATROPIUM BROMIDE/ALBUTEROL respimat INH INH SCH ×4 (08:27→20:44)
[2017-10-10] MEDS: LACTULOSE SYRUP 30 GM/45 ML UDP PO SCH ×3 (08:27→19:55)
[2017-10-10] MEDS: HEPARIN SOD 5000 UNIT/0.5 ML CARP SQ SCH ×2 (08:27→19:54)
[2017-10-10] MEDS: LEVETIRACETAM 250 MG TAB PO SCH ×2 (08:29→19:54)
[2017-10-10] MEDS: POTASSIUM CHLORIDE 20 MEQ TABCR PO SCH ×2 (08:29→19:56)
[2017-10-10] MEDS: METOPROLOL SUCC 50MG EXT REL TAB PO SCH (08:30)
[2017-10-10] MEDS: MAGNESIUM OXIDE 400 MG TAB PO SCH ×2 (08:30→19:54)
[2017-10-10] MEDS: LISINOPRIL 5 MG TAB PO SCH (08:31)
[2017-10-10] MEDS: NYSTATIN POWDER 15GM BTL EXT SCH ×2 (08:32→20:52)
[2017-10-10 09:20] LABS: CALCIUM 9.5 mg/dl (8.5-10.1); CREATININE 1.13 mg/dl (0.60-1.20); POTASSIUM 4.4 mmol/L (3.5-5.1)
[2017-10-10] MEDS: LITHIUM CARBONATE 300 MG TAB PO SCH (09:56)
[2017-10-10] MEDS: FUROSEMIDE INJ 40 MG in SYRINGE 0 ML IV SCH ×2 (09:57→19:55)
[2017-10-10 11:23] VITALS: BP 133/66; PULSE 86; TEMP 36.8; O2SAT 100
[2017-10-10 15:32] VITALS: BP 118/66; PULSE 86; TEMP 37.2; O2SAT 91
--- NOTE | 2017-10-10 18:01 | Family Medicine Progress Note ---
Progress Note Date of Service Oct 10, 2017. Subjective Pt evaluation today including: conversation w/ patient, conversation w/ family (), physical exam, chart review, lab review, review of studies, review of inpatient medication list Patient awake and oriented. No complaints of pain. Denies fevers/chills, headaches, CP, palpitations, dyspnea. She is tolerating diet without nausea or vomiting, and says she has no issues with voiding or stooling. ROS is unremarkable except as noted above. Objective Vital Signs Date Time Temp Pulse Resp B/P (MAP) Pulse Ox O2 Delivery O2 Flow Rate FiO2 10/10/17 16:00 Nasal Cannula 2.0 10/10/17 15:32 37.2 86 16 118/66 (83) 91 2.0 10/10/17 12:00 Nasal Cannula 2.0 10/10/17 11:23 36.8 86 16 133/66 (88) 100 2.0 10/10/17 08:00 Nasal Cannula 2.0 10/10/17 07:20 36.4 97 18 134/79 (97) 92 2.0 10/10/17 04:42 36.5 91 18 114/80 (91) 100 Nasal Cannula 2.0 10/10/17 04:00 Nasal Cannula 2.0 10/10/17 00:00 Nasal Cannula 2.0 10/09/17 23:10 36.7 77 20 113/70 (84) 90 Nasal Cannula 2.0 10/09/17 20:00 Nasal Cannula 2.0 10/09/17 19:29 37.9 88 18 125/70 (88) 90 Nasal Cannula 2.0 Physical Exam Notes: General Appearance: WD/WN, no apparent distress, + obese Eyes: normal inspection, + pertinent finding (bilateral proptosis - chronic) ENT: hearing grossly normal + pertinent finding (no evidence of candidiasis on tongue or throat, no posterior oropharyngeal erythema appreciated) Respiratory/Chest: normal breath sounds, no respiratory distress, no accessory muscle use Cardiovascular: regular rate, rhythm, no murmur Abdomen: normal bowel sounds, non tender, soft Extremities: no calf tenderness, + pertinent finding (improved edema in lower extremities) 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: no motor/sensory deficits (mild right sided upper extremity weakness - 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 control room helper only strength 4-5/5), alert, oriented x 3 Skin: normal color, warm/dry, no rash Laboratory Results Results Past 24 Hours Test 10/09/17 20:22 10/10/17 07:37 10/10/17 08:30 10/10/17 11:36 Range/Units Bedside Glucose 185 133 189 70-90 mg/dl Sodium Level 140 136-145 mmol/L Potassium Level 4.4 3.5-5.1 mmol/L Chloride Level 101 98-107 mmol/L Carbon Dioxide Level 35 21-32 mmol/L Anion Gap 4.0 3-11 mmol/L Blood Urea Nitrogen 15 7-18 mg/dl Creatinine 1.13 0.60-1.20 mg/dl Est Creatinine Clear Calc Drug Dose 59.2 ml/min Estimated GFR () 60.3 Estimated GFR (Non- 52.0 BUN/Creatinine Ratio 12.8 10-20 Random Glucose 181 70-99 mg/dl Calcium Level 9.5 8.5-10.1 mg/dl Test 10/10/17 16:23 Range/Units Bedside Glucose 194 70-90 mg/dl Assessment and Plan 62 year old female with schizoaffective disorder, DM II, KORI presents with altered mental status, attributed to haloperidol Altered mental status - significantly improved from admission note, close to baseline. Psychiatry agrees that the daytime haloperidol was likely the culprit - Switch to haloperidol 4mg HS - PT/OT evals pending [place] toxicity - non-trough level @ 1.7, which is still somewhat elevated, but renal function not impacted - Continue home dose lithium, per psychiatry Congestive heart failure - reports no shortness of breath and tolerating present respiratory status well, stable from discharge - Continue IV furosemide 40mg BID Schizoaffective disorder, bipolar type without good prognostic features - Continue haloperidol and lithium, as above Seizure disorder - Continue levetiracetam DMII - continue lantus + ISS with check ac/hs Hypercapnic respiratory acidosis suspect related to sleep apnea - she does not wear her CPAP at home. Continue continuous O2 via NC at 2L Bilateral proptosis - chronic VTE Prophylaxis - Heparin 5000 units Q12H Code - DNR Resident Physician Supervision Note: I interviewed and examined the patient. Discussed with Dr. Franklin and agree with findings and plan as documented in the note. Any exceptions or clarifications are listed here: None Documented By: Jeremiah Lewis feeling better but notes still not really herself vitals noted nad breathing unlabored no pallor or icterus AMS - med induced related to treatment of bipolar (which was recently manic) -meds continue to be slowly adjusted, awaiting PT / OT Continued [facility] stay due to: other Discharge planning: uncertain Resident Tracking Resident Involvement: Resident Care Provided Care Provided: Adult Hospital Medicine
[2017-10-10 19:08] VITALS: PULSE 86; TEMP 36.9; O2SAT 91
[2017-10-10] MEDS: HALOPERIDOL 1 MG TAB PO SCH (19:55)
[2017-10-10] MEDS: LITHIUM CARBONATE SR 300 MG TAB (LITHOBID) PO SCH (19:56)
[2017-10-10 23:49] VITALS: BP 85/54; PULSE 65; TEMP 37.1; O2SAT 90
[2017-10-11] MEDS: SODIUM CHLORIDE 0.9% 250ML 250 ML IV STA ×2 (00:24→00:50)
[2017-10-11] MEDS ORDERED: NURSING VERBAL MED ORDER ONE (01:45)
[2017-10-11] MEDS ORDERED: SODIUM CHLORIDE 0.9% 250ML 250 ML IV SCH (01:45)
[2017-10-11 02:30] VITALS: BP 125/75
[2017-10-11 06:29] LABS: HEMATOCRIT 43.3 % (37-47); HEMOGLOBIN 12.4 g/dL (12.0-16.0); MEAN CELL VOLUME 93.3 fL (80-100); MEAN CORPUSCULAR HEMOGLOBIN 26.7 pg (25-34); MEAN CORPUSCULAR HGB CONC 28.6 g/dl (32-36); MEAN PLATELET VOLUME 9.9 fL (7.4-10.4); NUCLEATED RED BLOOD CELL ABS 0.12 K/uL (0-0); PLATELET COUNT 266 K/uL (130-400); RED CELL DISTRIBUTION WIDTH CV 19.2 % (11.5-14.5); RED CELL DISTRIBUTION WIDTH SD 62.9 fL (36.4-46.3)
[2017-10-11 06:51] LABS: CREATININE 1.27 mg/dl (0.60-1.20); POTASSIUM 5.2 mmol/L (3.5-5.1)
[2017-10-11] MEDS: POTASSIUM CHLORIDE 20 MEQ TABCR PO SCH (07:07)
[2017-10-11 07:14] VITALS: BP 98/64; PULSE 75; TEMP 36.7; O2SAT 92
[2017-10-11] MEDS: LACTULOSE SYRUP 30 GM/45 ML UDP PO SCH ×3 (08:32→21:34)
[2017-10-11] MEDS: IPRATROPIUM BROMIDE/ALBUTEROL respimat INH INH SCH ×4 (08:32→21:34)
[2017-10-11] MEDS: MAGNESIUM OXIDE 400 MG TAB PO SCH ×2 (08:33→21:33)
[2017-10-11] MEDS: METOPROLOL SUCC 50MG EXT REL TAB PO SCH ×2 (08:34→09:45)
[2017-10-11] MEDS: LEVETIRACETAM 250 MG TAB PO SCH ×2 (08:34→21:33)
[2017-10-11] MEDS: NYSTATIN POWDER 15GM BTL EXT SCH ×2 (08:36→21:47)
[2017-10-11] MEDS: INSULIN GLARGINE SOLOSTAR 100 UNITS/ML 3 ML PEN SC SCH (08:42)
[2017-10-11] MEDS: INSULIN ASPART 100 UNITS/ML 3 ML PEN SC SCH ×4 (08:42→21:39)
[2017-10-11] MEDS: HEPARIN SOD 5000 UNIT/0.5 ML CARP SQ SCH ×2 (08:43→21:39)
[2017-10-11] MEDS: LISINOPRIL 5 MG TAB PO SCH (09:45)
[2017-10-11] MEDS: LITHIUM CARBONATE 300 MG TAB PO SCH (11:20)
--- NOTE | 2017-10-11 12:27 | Family Medicine Progress Note ---
Progress Note Date of Service October 11, 2017. Subjective Pt evaluation today including: conversation w/ patient, conversation w/ family , physical exam, chart review, lab review, review of studies, review of inpatient medication list Patient awake and oriented. No complaints of pain. She enjoyed ambulating with physical therapy earlier this morning. Denies fevers/chills, headaches, CP, palpitations, dyspnea. She is tolerating diet without nausea or vomiting, and says she has no issues with voiding or stooling. ROS is unremarkable except as noted above. Objective Vital Signs Date Time Temp Pulse Resp B/P (MAP) Pulse Ox O2 Delivery O2 Flow Rate FiO2 10/11/17 08:00 Nasal Cannula 2.0 10/11/17 07:14 36.7 75 16 98/64 (75) 92 2.0 10/11/17 02:30 125/75 (92) 10/11/17 00:00 Nasal Cannula 2.0 10/10/17 23:49 37.1 65 19 85/54 (64) 90 Nasal Cannula 2.0 10/10/17 20:00 Nasal Cannula 2.0 10/10/17 19:08 36.9 86 16 91 2.0 10/10/17 16:00 Nasal Cannula 2.0 10/10/17 15:32 37.2 86 16 118/66 (83) 91 2.0 Physical Exam Notes: General Appearance: WD/WN, no apparent distress, + obese Eyes: normal inspection, + pertinent finding (bilateral proptosis - chronic) ENT: hearing grossly normal Respiratory/Chest: normal breath sounds, no respiratory distress, no accessory muscle use Cardiovascular: regular rate, rhythm, no murmur Abdomen: normal bowel sounds, non tender, soft Extremities: no calf tenderness, + pertinent finding (improved edema in lower extremities, +1 pitting to below knees, likely baseline) 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: no motor/sensory deficits, alert, oriented x 3, normal mood/affect Skin: normal color, warm/dry, no rash Laboratory Results Results Past 24 Hours Test 10/10/17 16:23 10/10/17 20:50 10/11/17 05:48 10/11/17 07:22 Range/Units Bedside Glucose 194 192 171 70-90 mg/dl White Blood Count 6.60 4.8-10.8 K/uL Red Blood Count 4.64 4.2-5.4 M/uL Hemoglobin 12.4 12.0-16.0 g/dL Hematocrit 43.3 37-47 % Mean Corpuscular Volume 93.3 80-100 fL Mean Corpuscular Hemoglobin 26.7 25-34 pg Mean Corpuscular Hemoglobin Concent 28.6 32-36 g/dl RDW Standard Deviation 62.9 36.4-46.3 fL RDW Coefficient of Variation 19.2 11.5-14.5 % Platelet Count 266 130-400 K/uL Mean Platelet Volume 9.9 7.4-10.4 fL Nucleated RBC Absolute Count (auto) 0.12 0-0 K/uL Nucleated Red Blood Cells % 1.8 % Sodium Level 142 136-145 mmol/L Potassium Level 5.2 3.5-5.1 mmol/L Chloride Level 107 98-107 mmol/L Carbon Dioxide Level 35 21-32 mmol/L Anion Gap 0.0 3-11 mmol/L Blood Urea Nitrogen 15 7-18 mg/dl Creatinine 1.27 0.60-1.20 mg/dl Est Creatinine Clear Calc Drug Dose 52.6 ml/min Estimated GFR () 52.4 Estimated GFR (Non- 45.2 BUN/Creatinine Ratio 12.1 10-20 Random Glucose 186 70-99 mg/dl Calcium Level 9.0 8.5-10.1 mg/dl Test 10/11/17 09:33 10/11/17 11:22 Range/Units [place] Level 1.5 0.6-1.2 mMOL/L Bedside Glucose 218 70-90 mg/dl Assessment and Plan 62 year old female with schizoaffective disorder, DM II, KORI presents with altered mental status, attributed to haloperidol Altered mental status - significantly improved from admission note, close to baseline. Psychiatry agrees that the daytime haloperidol was likely the culprit - Decrease haloperidol from 4mg to 2mg HS [place] toxicity - non-trough level @ 1.7, which is still somewhat elevated, but renal function not impacted - Continue home dose lithium, per psychiatry. Repeat lithium levels today 1.5 Congestive heart failure - reports no shortness of breath and tolerating present respiratory status well, stable from discharge - Hold IV furosemide today. Patient euvolemic with slight bump in creatinine. Will reassess fluid status tomorrow before resuming dose Hyperkalemia - K+ 5.2 today. Hold potassium supplementation, especially given holding furosemide - Trend BMP Schizoaffective disorder, bipolar type without good prognostic features - Continue haloperidol and lithium, as above Seizure disorder - Continue levetiracetam DMII - continue Lantus + ISS with check ac/hs Chronic hypercapnic respiratory acidosis suspect related to sleep apnea - she does not wear her CPAP at home. Continue continuous O2 via NC at 2L Bilateral proptosis - chronic VTE Prophylaxis - Heparin 5000 units Q12H Code - DNR Dispo - Referral sent to [facility] for acute rehab, as per PT recommendations Resident Physician Supervision Note: I interviewed and examined the patient. Discussed with Dr. Franklin and agree with findings and plan as documented in the note. Any exceptions or clarifications are listed here: None Documented By: Jeremiah Lewis slowly feeling better but still fairly lethargic at times, feels he could not care for her in current state, and is in favor of rehab for now vitals noted nad breathing unlabored no pallor or icterus AMS - med induced related to treatment of bipolar (which was recently manic) -meds continue to be slowly adjusted (reduce haldol to 2mg HS) Continued [facility] stay due to: ambulation difficulties Discharge planning: rehab hospital Resident Tracking Resident Involvement: Resident Care Provided Care Provided: Adult Hospital Medicine
[2017-10-11 15:08] VITALS: BP 100/64; PULSE 77; TEMP 36.1; O2SAT 91
[2017-10-11 15:38] VITALS: O2SAT 91
[2017-10-11] MEDS: LITHIUM CARBONATE SR 300 MG TAB (LITHOBID) PO SCH (21:32)
[2017-10-11] MEDS: HALOPERIDOL 1 MG TAB PO SCH (21:32)
[2017-10-11 23:39] VITALS: BP 84/56; PULSE 75; TEMP 36.5; O2SAT 92
[2017-10-12] VITALS (7 sets, daily range): BP systolic 95–109; BP diastolic 61–70; PULSE 72–78; TEMP 36.4–36.8; O2SAT 90–100
[2017-10-12 08:02] LABS: HEMATOCRIT 44.6 % (37-47); HEMOGLOBIN 12.9 g/dL (12.0-16.0); MEAN CELL VOLUME 93.9 fL (80-100); MEAN CORPUSCULAR HEMOGLOBIN 27.2 pg (25-34); MEAN CORPUSCULAR HGB CONC 28.9 g/dl (32-36); MEAN PLATELET VOLUME 10.3 fL (7.4-10.4); NUCLEATED RED BLOOD CELL ABS 0.08 K/uL (0-0); PLATELET COUNT 263 K/uL (130-400); RED CELL DISTRIBUTION WIDTH CV 19.4 % (11.5-14.5); RED CELL DISTRIBUTION WIDTH SD 64.1 fL (36.4-46.3); WHITE BLOOD COUNT 7.53 K/uL (4.8-10.8)
[2017-10-12 08:17] LABS: CALCIUM 9.4 mg/dl (8.5-10.1); CREATININE 1.29 mg/dl (0.60-1.20); POTASSIUM 5.1 mmol/L (3.5-5.1)
[2017-10-12] MEDS: IPRATROPIUM BROMIDE/ALBUTEROL respimat INH INH SCH ×4 (08:28→21:13)
[2017-10-12] MEDS: NYSTATIN POWDER 15GM BTL EXT SCH ×2 (08:28→21:13)
[2017-10-12] MEDS: LACTULOSE SYRUP 30 GM/45 ML UDP PO SCH ×3 (08:29→21:13)
[2017-10-12] MEDS: LEVETIRACETAM 250 MG TAB PO SCH ×2 (08:31→21:16)
[2017-10-12] MEDS: MAGNESIUM OXIDE 400 MG TAB PO SCH ×2 (08:32→21:16)
[2017-10-12] MEDS: METOPROLOL SUCC 50MG EXT REL TAB PO SCH (08:33)
[2017-10-12] MEDS: LISINOPRIL 5 MG TAB PO SCH (08:34)
[2017-10-12] MEDS: HEPARIN SOD 5000 UNIT/0.5 ML CARP SQ SCH ×2 (08:39→21:25)
[2017-10-12] MEDS: INSULIN GLARGINE SOLOSTAR 100 UNITS/ML 3 ML PEN SC SCH (08:40)
[2017-10-12] MEDS: INSULIN ASPART 100 UNITS/ML 3 ML PEN SC SCH ×4 (08:40→21:00)
[2017-10-12] MEDS: LITHIUM CARBONATE 300 MG TAB PO SCH (09:40)
--- NOTE | 2017-10-12 16:54 | Family Medicine Progress Note ---
Progress Note Date of Service October 12, 2017. Subjective Pt evaluation today including: conversation w/ patient, conversation w/ family , physical exam, chart review, lab review, review of studies, review of inpatient medication list Patient awake and oriented. No complaints of pain. She enjoyed ambulating with physical therapy yesterday and is agreeable to go to acute rehab. Denies fevers/ chills, headaches, CP, palpitations, dyspnea. She is tolerating diet without nausea or vomiting, and says she has no issues with voiding or stooling. is in room with patient and all his questions are answered. He does not that patient is struggling with her pureed foods and requesting evaluation for this. ROS is unremarkable except as noted above. Objective Vital Signs Date Time Temp Pulse Resp B/P (MAP) Pulse Ox O2 Delivery O2 Flow Rate FiO2 10/12/17 15:28 36.8 72 20 95/61 (72) 90 10/12/17 11:40 100 Nasal Cannula 2.0 10/12/17 11:31 100 Nasal Cannula 2.0 10/12/17 07:38 36.4 78 16 109/70 (83) 100 Nasal Cannula 2.0 10/12/17 00:00 Nasal Cannula 2.0 10/11/17 23:39 36.5 75 18 84/56 (65) 92 Nasal Cannula 2.0 10/11/17 20:00 Nasal Cannula 4.0 Physical Exam Notes: General Appearance: WD/WN, no apparent distress, + obese Eyes: normal inspection, + pertinent finding (bilateral proptosis - chronic) ENT: hearing grossly normal Respiratory/Chest: normal breath sounds, no respiratory distress, no accessory muscle use Cardiovascular: regular rate, rhythm, no murmur Abdomen: normal bowel sounds, non tender, soft Extremities: no calf tenderness, + pertinent finding (improved edema in lower extremities, +1 pitting to below knees, likely baseline) 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: no motor/sensory deficits, alert, oriented x 3, normal mood/affect Skin: normal color, warm/dry, no rash Laboratory Results Results Past 24 Hours Test 10/11/17 20:41 10/12/17 07:30 10/12/17 07:34 10/12/17 11:55 Range/Units Bedside Glucose 210 152 184 70-90 mg/dl White Blood Count 7.53 4.8-10.8 K/uL Red Blood Count 4.75 4.2-5.4 M/uL Hemoglobin 12.9 12.0-16.0 g/dL Hematocrit 44.6 37-47 % Mean Corpuscular Volume 93.9 80-100 fL Mean Corpuscular Hemoglobin 27.2 25-34 pg Mean Corpuscular Hemoglobin Concent 28.9 32-36 g/dl RDW Standard Deviation 64.1 36.4-46.3 fL RDW Coefficient of Variation 19.4 11.5-14.5 % Platelet Count 263 130-400 K/uL Mean Platelet Volume 10.3 7.4-10.4 fL Nucleated RBC Absolute Count (auto) 0.08 0-0 K/uL Nucleated Red Blood Cells % 1.0 % Sodium Level 142 136-145 mmol/L Potassium Level 5.1 3.5-5.1 mmol/L Chloride Level 105 98-107 mmol/L Carbon Dioxide Level 36 21-32 mmol/L Anion Gap 0.0 3-11 mmol/L Blood Urea Nitrogen 19 7-18 mg/dl Creatinine 1.29 0.60-1.20 mg/dl Est Creatinine Clear Calc Drug Dose 51.8 ml/min Estimated GFR () 51.4 Estimated GFR (Non- 44.3 BUN/Creatinine Ratio 14.7 10-20 Random Glucose 147 70-99 mg/dl Calcium Level 9.4 8.5-10.1 mg/dl Test 10/12/17 17:01 Range/Units Bedside Glucose 171 70-90 mg/dl Assessment and Plan 62 year old female with schizoaffective disorder, DM II, KORI presents with altered mental status, attributed to haloperidol Difficulty eating food/?Dysphagia - Possibly attributed to dry throat mouth/throat (previous complaint) secondary to haloperidol - Speech eval ordered Altered mental status - significantly improved from admission note, close to baseline. Psychiatry agrees that the daytime haloperidol was likely the culprit - Continue haloperidol 2mg HS [place] toxicity - non-trough level @ 1.7, which is still somewhat elevated, but renal function not impacted. Repeat lithium levels 1.5 - Continue home dose lithium, per psychiatry. Congestive heart failure - reports no shortness of breath and tolerating present respiratory status well, stable - Patient euvolemic with slight bump in creatinine. Will hold furosemide and reassess fluid status tomorrow before resuming dose Hyperkalemia - K+ 5.1 today. Hold potassium supplementation, especially given holding furosemide - Trend BMP Schizoaffective disorder, bipolar type without good prognostic features - Continue haloperidol and lithium, as above Seizure disorder - Continue levetiracetam DMII - continue Lantus + ISS with check ac/hs Chronic hypercapnic respiratory acidosis suspect related to sleep apnea - she does not wear her CPAP at home. Continue continuous O2 via NC at 2L Bilateral proptosis - chronic VTE Prophylaxis - Heparin 5000 units Q12H Code - DNR Dispo - Referral sent to [facility] for acute rehab, as per PT recommendations Resident Physician Supervision Note: I interviewed and examined the patient. Discussed with Dr. Franklin and agree with findings and plan as documented in the note. Any exceptions or clarifications are listed here: None Documented By: Jeremiah Lewis sleeping comfortably, was waiting on rehab but told late in the day that it was denied. called [facility] and left message to appeal vitals noted nad breathing unlabored no pallor or icterus AMS - med induced related to treatment of bipolar (which was recently manic), improving -meds continue to be slowly adjusted (reduced haldol to 2mg HS)(may need to continue to reduce) Continued [facility] stay due to: home environment unsafe for pt Discharge planning: rehab hospital Resident Tracking Resident Involvement: Resident Care Provided Care Provided: Adult Hospital Medicine
[2017-10-12] MEDS: HALOPERIDOL 1 MG TAB PO SCH (21:15)
[2017-10-12] MEDS: LITHIUM CARBONATE SR 300 MG TAB (LITHOBID) PO SCH (21:16)
[2017-10-13 07:48] LABS: CALCIUM 8.9 mg/dl (8.5-10.1); CREATININE 1.37 mg/dl (0.60-1.20)
[2017-10-13] MEDS: NYSTATIN POWDER 15GM BTL EXT SCH ×2 (08:09→21:19)
[2017-10-13] MEDS: MAGNESIUM OXIDE 400 MG TAB PO SCH ×2 (08:10→21:20)
[2017-10-13] MEDS: IPRATROPIUM BROMIDE/ALBUTEROL respimat INH INH SCH ×4 (08:10→21:19)
[2017-10-13] MEDS: LACTULOSE SYRUP 30 GM/45 ML UDP PO SCH ×2 (08:10→14:00)
[2017-10-13] MEDS: METOPROLOL SUCC 50MG EXT REL TAB PO SCH (08:11)
[2017-10-13] MEDS: LISINOPRIL 5 MG TAB PO SCH (08:11)
[2017-10-13] MEDS: LEVETIRACETAM 250 MG TAB PO SCH ×2 (08:12→21:20)
[2017-10-13 08:13] VITALS: BP 94/63; PULSE 77; TEMP 36.7; O2SAT 97
[2017-10-13] MEDS: INSULIN ASPART 100 UNITS/ML 3 ML PEN SC SCH ×4 (09:13→21:00)
[2017-10-13] MEDS: INSULIN GLARGINE SOLOSTAR 100 UNITS/ML 3 ML PEN SC SCH (09:14)
[2017-10-13] MEDS: HEPARIN SOD 5000 UNIT/0.5 ML CARP SQ SCH ×2 (09:15→21:23)
[2017-10-13] MEDS: LITHIUM CARBONATE 300 MG TAB PO SCH (09:15)
[2017-10-13 09:52] VITALS: BP 121/69; PULSE 86; TEMP 36.5; O2SAT 91
[2017-10-13 11:22] VITALS: BP 99/57; PULSE 72; TEMP 36.7; O2SAT 96
--- NOTE | 2017-10-13 12:59 | Family Medicine Progress Note ---
Progress Note Date of Service October 13, 2017. Subjective Pt evaluation today including: conversation w/ patient, physical exam, chart review, lab review, review of studies, review of inpatient medication list Patient rousable but more sleepy this morning. No complaints of pain. During speech evaluation today, patient aspirated half a spoon of pudding, after which she had coughing and small emesis (~50cc) containing pudding and small amount of blood. Saturations dropped so oxygen was increased. Suctioning improved saturations. No evidence of ongoing bleeding. No complaints of abdominal pain and breathing and coughing improved. ROS is unremarkable except as noted above. Objective Vital Signs Date Time Temp Pulse Resp B/P (MAP) Pulse Ox O2 Delivery O2 Flow Rate FiO2 10/13/17 11:22 36.7 72 18 99/57 (71) 96 Nasal Cannula 4.0 10/13/17 09:52 36.5 86 18 121/69 (86) 91 Nasal Cannula 4.0 10/13/17 08:13 36.7 77 18 94/63 (73) 97 Nasal Cannula 2.0 10/13/17 08:00 Nasal Cannula 2.0 10/13/17 00:00 Nasal Cannula 2.0 10/12/17 22:38 36.7 73 18 101/67 (78) 93 Nasal Cannula 3.0 10/12/17 19:41 36.8 73 20 99/63 (75) 91 Room Air 10/12/17 16:00 99 Nasal Cannula 2.0 10/12/17 15:28 36.8 72 20 95/61 (72) 90 Physical Exam Notes: General Appearance: WD/WN, no apparent distress (post emesis episode), + obese Eyes: normal inspection, + pertinent finding (bilateral proptosis - chronic) ENT: hearing grossly normal, + pertinent finding (no evidence of ongoing bleeding visible in posterior oropharynx) Respiratory/Chest: normal breath sounds, no respiratory distress, no accessory muscle use Cardiovascular: regular rate, rhythm, no murmur Abdomen: normal bowel sounds, non tender, soft Extremities: no calf tenderness, + pertinent finding (improved edema in lower extremities, +1 pitting to below knees, likely baseline) 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: no motor/sensory deficits, alert (requires multiple attempts of calling her name today), normal mood/affect Skin: normal color, warm/dry, no rash Laboratory Results Results Past 24 Hours Test 5/2/18 17:01 10/12/17 20:03 10/13/17 06:44 10/13/17 07:34 Range/Units Bedside Glucose 171 155 172 70-90 mg/dl Sodium Level 140 136-145 mmol/L Potassium Level 5.0 3.5-5.1 mmol/L Chloride Level 105 98-107 mmol/L Carbon Dioxide Level 37 21-32 mmol/L Anion Gap -1.0 3-11 mmol/L Blood Urea Nitrogen 21 7-18 mg/dl Creatinine 1.37 0.60-1.20 mg/dl Est Creatinine Clear Calc Drug Dose 48.8 ml/min Estimated GFR () 47.8 Estimated GFR (Non- 41.2 BUN/Creatinine Ratio 15.4 10-20 Random Glucose 160 70-99 mg/dl Calcium Level 8.9 8.5-10.1 mg/dl Test 10/13/17 11:31 10/13/17 11:50 Range/Units Bedside Glucose 169 70-90 mg/dl Hemoglobin 12.4 12.0-16.0 g/dL Ammonia 48.7 11-32 umol/L Assessment and Plan 62 year old female with schizoaffective disorder, DM II, KORI presents with altered mental status, attributed to haloperidol Difficulty eating food/?Dysphagia - Possibly attributed to dry throat mouth/throat (previous complaint) secondary to haloperidol - Speech eval ordered. Dx: mod-severe oral-stage dysphagia and no functional pharyngeal dysphagia. Recommend: 1. The patient is only safe to eat by mouth if she is ACTIVELY PARTICIPATING in the feeding process. She is significantly safer when she feeds herself. 2. If eating by mouth then she should start with a pureed diet. DO NOT FEED PATIENT IF she is not fully alert and participating in the feeding and eating process. 3. Consider f/u with [facility] services in acute rehabilitation setting (her d/c disposition) for trials of upgraded diet consistencies. Altered mental status - significantly improved from admission note, close to baseline. Psychiatry agrees that the daytime haloperidol was likely the culprit. - Recurrent waxing and waning mentation. Recheck of ammonia levels show mild elevation. Review of outpatient records reveal lactulose dose of 60ml of 10mg/ 15ml TID as outpatient. Thus, increased inpatient dose to 40mg TID. Continue to monitor [place] toxicity - non-trough level @ 1.7, which is still somewhat elevated, but renal function not impacted. Repeat lithium levels 1.5 - Continue home dose lithium, per psychiatry. Congestive heart failure - reports no shortness of breath and tolerating present respiratory status well, stable - Patient euvolemic with slight bump in creatinine. Will hold furosemide and reassess fluid status tomorrow before resuming dose Hyperkalemia - K+ 5.0 today. Hold potassium supplementation, especially given holding furosemide - Trend BMP Schizoaffective disorder, bipolar type without good prognostic features - Continue haloperidol 2mg HS and lithium, as above Seizure disorder - Continue levetiracetam DMII - continue Lantus + ISS with check ac/hs Chronic hypercapnic respiratory acidosis suspect related to sleep apnea - she does not wear her CPAP at home. Continue continuous O2 via [place] at 2L Bilateral proptosis - chronic VTE Prophylaxis - Heparin 5000 units Q12H Code - DNR Dispo - [facility] for acute rehab, as per PT recommendations tomorrow Resident Physician Supervision Note: I interviewed and examined the patient. Discussed with Dr. Franklin and agree with findings and plan as documented in the note. Any exceptions or clarifications are listed here: None Documented By: Jeremiah Lewis more sedated today. did win [facility] to [facility] but now unable to go - had dysphagia vitals noted nad breathing unlabored no pallor or icterus AMS - med induced from bipolar - but now seems to have other factors at play - ongoing serial exams; ammonia? other? if doesn't improve - image brain Continued [facility] stay due to: ambulation difficulties Discharge planning: rehab hospital Resident Tracking Resident Involvement: Resident Care Provided Care Provided: Adult Hospital Medicine
--- NOTE | 2017-10-13 14:09 | DIAGNOSTIC IMAGING REPORT ---
VIDEO SWALLOW CLINICAL HISTORY: Encephalopathy. Signs and symptoms of aspiration. COMPARISON STUDY: No previous studies for comparison. Fluoroscopy time: 2.3 minutes. FINDINGS: There was no aspiration with thin liquids or nectar thick liquids. No aspiration was identified with pudding. There was delayed AP transfer. IMPRESSION: 1. No tracheal aspiration identified. 2. Mild premature spillage. Delayed AP transfer. 3. Full recommendations by speech pathology to follow. Electronically signed by: Santana Lundy M.D. 10/13/2017 2:08 PM Dictated Date/Time: 10/13/2017 2:06 PM
[2017-10-13 15:39] VITALS: BP 104/68; PULSE 73; TEMP 36.4; O2SAT 96
[2017-10-13] MEDS: HALOPERIDOL 1 MG TAB PO SCH (21:20)
[2017-10-13] MEDS: LITHIUM CARBONATE SR 300 MG TAB (LITHOBID) PO SCH (21:20)
[2017-10-13] MEDS: LACTULOSE SYRUP 10 GM/15 ML BTL 473 ML PO SCH (21:42)
[2017-10-13 22:47] VITALS: BP 83/57; PULSE 81; TEMP 36.6; O2SAT 96
[2017-10-14] VITALS: BP 114/73; PULSE 79
[2017-10-14 07:26] VITALS: BP 105/69; PULSE 86; TEMP 36.5; O2SAT 93
[2017-10-14 08:47] LABS: HEMATOCRIT 44.7 % (37-47); HEMOGLOBIN 13.1 g/dL (12.0-16.0); MEAN CELL VOLUME 94.3 fL (80-100); MEAN CORPUSCULAR HEMOGLOBIN 27.6 pg (25-34); MEAN CORPUSCULAR HGB CONC 29.3 g/dl (32-36); MEAN PLATELET VOLUME 10.4 fL (7.4-10.4); PLATELET COUNT 244 K/uL (130-400); RED CELL DISTRIBUTION WIDTH CV 19.2 % (11.5-14.5); RED CELL DISTRIBUTION WIDTH SD 64.5 fL (36.4-46.3); WHITE BLOOD COUNT 8.15 K/uL (4.8-10.8)
[2017-10-14 09:00] LABS: CALCIUM 9.1 mg/dl (8.5-10.1); CREATININE 1.2 mg/dl (0.60-1.20)
[2017-10-14 09:11] LABS: BASO % 0.1 %; BASO ABS # 0.01 K/uL (0-0.2); EOS % 0.6 %; EOS ABS # 0.05 K/uL (0-0.5); IG# 0.03 K/uL (0.00-0.02); LYMPH % 10.2 %; LYMPH ABS # 0.83 K/uL (1.2-3.4); MONO % 10.6 %; MONO ABS # 0.86 K/uL (0.11-0.59); NEUT % 78.1 %; NEUT ABS # 6.37 K/uL (1.4-6.5)
[2017-10-14] MEDS: NYSTATIN POWDER 15GM BTL EXT SCH ×2 (09:30→21:05)
[2017-10-14] MEDS: LISINOPRIL 5 MG TAB PO SCH (09:31)
[2017-10-14] MEDS: LACTULOSE SYRUP 10 GM/15 ML BTL 473 ML PO SCH ×3 (09:31→21:02)
[2017-10-14] MEDS: IPRATROPIUM BROMIDE/ALBUTEROL respimat INH INH SCH ×2 (09:31→12:35)
[2017-10-14] MEDS: LEVETIRACETAM 250 MG TAB PO SCH ×2 (09:32→21:03)
[2017-10-14] MEDS: LITHIUM CARBONATE 300 MG TAB PO SCH (09:33)
[2017-10-14] MEDS: MAGNESIUM OXIDE 400 MG TAB PO SCH ×2 (09:33→21:03)
[2017-10-14] MEDS: METOPROLOL SUCC 50MG EXT REL TAB PO SCH (09:34)
[2017-10-14] MEDS: INSULIN ASPART 100 UNITS/ML 3 ML PEN SC SCH ×3 (09:36→20:45)
[2017-10-14] MEDS: INSULIN GLARGINE SOLOSTAR 100 UNITS/ML 3 ML PEN SC SCH (09:46)
[2017-10-14] MEDS: HEPARIN SOD 5000 UNIT/0.5 ML CARP SQ SCH ×2 (09:46→21:07)
[2017-10-14 14:54] VITALS: BP 96/67; PULSE 76; TEMP 37; O2SAT 95
--- NOTE | 2017-10-14 18:20 | Family Medicine Progress Note ---
Progress Note Date of Service October 14, 2017. Subjective Pt evaluation today including: physical exam, chart review, lab review Patient unable to provided history and ROS due to AMS Medications Current Inpatient Medications Medications (Trade) Dose Ordered Sig/Nanette Route Start Time Stop Time Status Last Admin Dose Admin Insulin Glargine (Lantus Solostar Pen) 8 units DAILY SC 10/08/17 18:00 11/07/17 17:59 10/14/17 09:46 8 UNITS Albuterol/ Ipratropium (Combivent Respimat Inh) 1 puffs QID INH 10/08/17 21:00 11/07/17 20:59 10/14/17 12:35 1 PUFFS Levetiracetam (Keppra Tab) 750 mg BID PO 10/08/17 21:00 11/07/17 20:59 10/14/17 09:32 750 MG Lisinopril (Zestril Tab) 5 mg QAM PO 10/09/17 09:00 11/08/17 08:59 10/14/17 09:31 5 MG Magnesium Oxide (Mag-Ox Tab) 400 mg BID PO 10/08/17 21:00 11/07/17 20:59 10/14/17 09:33 400 MG Metoprolol Succinate (Toprol Xl Tab) 50 mg DAILY PO 10/09/17 09:00 11/08/17 08:59 10/14/17 09:34 50 MG Nystatin (Mycostatin Powder) 1 appln BID EXT 10/08/17 21:00 11/07/17 20:59 10/14/17 09:30 1 APPLN Potassium Chloride (Klor-Con Tab) 80 meq QPM PO 10/08/17 21:00 11/07/17 20:59 Future Hold 10/08/17 20:53 80 MEQ Potassium Chloride (Klor-Con Tab) 160 meq QAM PO 10/09/17 09:00 11/08/17 08:59 Future Hold 10/10/17 08:29 160 MEQ Polyethylene (Miralax Powder Packet) 17 gm DAILY PRN PO 10/08/17 15:45 11/07/17 15:44 Heparin Sodium (Porcine) (Heparin Sq 5000 Unit/0.5ml) 5,000 unit Q12 SQ 10/08/17 21:00 11/07/17 20:59 10/14/17 09:46 5,000 UNIT Acetaminophen (Tylenol Tab) 650 mg Q4H PRN PO 10/08/17 15:45 11/07/17 15:44 Al Hydrox/Mg Hydrox/Simethicone (Maalox Max Susp) 15 ml Q4H PRN PO 10/08/17 15:45 11/07/17 15:44 Magnesium Hydroxide (Milk Of Magnesia Susp) 30 ml Q12H PRN PO 10/08/17 15:45 11/07/17 15:44 Ondansetron HCl (Zofran Inj) 4 mg Q6H PRN IV 10/08/17 15:45 11/07/17 15:44 Glucose (Glucose 40% Gel) 15-30 GRAMS 15 GRAMS... UD PRN PO 10/08/17 15:45 11/07/17 15:44 10/09/17 06:19 15 GM Glucose (Glucose Chew Tab) 4-8 Tablets 4 Tabl... UD PRN PO 10/08/17 15:45 11/07/17 15:44 Dextrose (Dextrose 50% 50ML Syringe) 25-50ML OF 50% DW IV FOR... UD PRN IV 10/08/17 15:45 11/07/17 15:44 10/09/17 06:47 25 ML Glucagon (Glucagon Inj) 1 mg UD PRN SQ 10/08/17 15:45 11/07/17 15:44 Furosemide 40 mg/ Syringe 4 ml @ 4 mls/min BID IV 10/08/17 21:00 11/07/17 20:59 Future Hold 10/10/17 19:55 4 MLS/MIN Miscellaneous (Iv Fluids Completed) 1 ea PRN PRN N/A 10/08/17 19:30 10/08/18 19:29 Insulin Aspart (novoLOG ASPART) SLIDING SCALE If C... ACHS SC 10/09/17 16:30 11/08/17 16:29 10/13/17 13:08 1 UNITS [place] Carbonate (Lithobid Tab) 300 mg HS PO 10/10/17 21:00 11/09/17 20:59 10/13/17 21:20 300 MG Haloperidol (Haldol Tab) 2 mg HS PO 10/11/17 21:00 11/08/17 20:59 10/13/17 21:20 2 MG [place] Carbonate ([place] Carbonate Tab) 300 mg QAM PO 10/13/17 09:00 11/12/17 08:59 10/14/17 09:33 300 MG Lactulose (Chronulac Syrup) 40 gm TID PO 10/13/17 20:00 11/07/17 20:59 10/14/17 09:31 40 GM Objective Vital Signs Date Time Temp Pulse Resp B/P (MAP) Pulse Ox O2 Delivery O2 Flow Rate FiO2 10/14/17 15:59 Nasal Cannula 3.0 10/14/17 14:54 37.0 76 20 96/67 (77) 95 3.0 10/14/17 09:30 Nasal Cannula 3.0 10/14/17 07:26 36.5 86 20 105/69 (81) 93 10/14/17 00:20 Nasal Cannula 3.0 10/14/17 00:00 79 114/73 (87) 10/13/17 22:47 36.6 81 20 83/57 (66) 96 Nasal Cannula 3.0 Physical Exam General Appearance: WD/WN, no apparent distress Neck: supple, no adenopathy, thyroid normal Respiratory/Chest: lungs clear, no respiratory distress, + pertinent finding ( coarse sounds transmitted from upper airway ) Cardiovascular: regular rate, rhythm, no murmur Abdomen: non tender, soft, no organomegaly Extremities: non-tender, normal inspection Skin: normal color, warm/dry, no rash Laboratory Results 10/14/17 08:20 Red Blood Count 4.74, Mean Corpuscular Volume 94.3, Mean Corpuscular Hemoglobin 27.6, Mean Corpuscular Hemoglobin Concent 29.3, Mean Platelet Volume 10.4, Neutrophils (%) (Auto) 78.1, Lymphocytes (%) (Auto) 10.2, Monocytes (%) (Auto) 10.6, Eosinophils (%) (Auto) 0.6, Basophils (%) (Auto) 0.1, Neutrophils # (Auto ) 6.37, Lymphocytes # (Auto) 0.83, Monocytes # (Auto) 0.86, Eosinophils # (Auto ) 0.05, Basophils # (Auto) 0.01 10/14/17 08:20 Test 10/14/17 08:20 10/14/17 08:25 10/14/17 16:13 10/14/17 16:28 White Blood Count 8.15 K/uL (4.8-10.8) Red Blood Count 4.74 M/uL (4.2-5.4) Hemoglobin 13.1 g/dL (12.0-16.0) Hematocrit 44.7 % (37-47) Mean Corpuscular Volume 94.3 fL (80-100) Mean Corpuscular Hemoglobin 27.6 pg (25-34) Mean Corpuscular Hemoglobin Concent 29.3 g/dl (32-36) Platelet Count 244 K/uL (130-400) Mean Platelet Volume 10.4 fL (7.4-10.4) Neutrophils (%) (Auto) 78.1 % Lymphocytes (%) (Auto) 10.2 % Monocytes (%) (Auto) 10.6 % Eosinophils (%) (Auto) 0.6 % Basophils (%) (Auto) 0.1 % Neutrophils # (Auto) 6.37 K/uL (1.4-6.5) Lymphocytes # (Auto) 0.83 K/uL (1.2-3.4) Monocytes # (Auto) 0.86 K/uL (0.11-0.59) Eosinophils # (Auto) 0.05 K/uL (0-0.5) Basophils # (Auto) 0.01 K/uL (0-0.2) RDW Standard Deviation 64.5 fL (36.4-46.3) RDW Coefficient of Variation 19.2 % (11.5-14.5) Immature Granulocyte % (Auto) 0.4 % Immature Granulocyte # (Auto) 0.03 K/uL (0.00-0.02) Hypochromasia PRESENT Anisocytosis PRESENT Anion Gap -1.0 mmol/L (3-11) Est Creatinine Clear Calc Drug Dose 55.4 ml/min Estimated GFR () 56.1 Estimated GFR (Non- 48.4 BUN/Creatinine Ratio 17.8 (10-20) Calcium Level 9.1 mg/dl (8.5-10.1) Ammonia 30.4 umol/L (11-32) Arterial Blood pH 7.29 (7.35-7.45) Arterial Blood Partial Pressure CO2 74 mmHg (35-46) Arterial Blood Partial Pressure O2 86 mm/Hg (80-95) Arterial Blood HCO3 35 mmol/L (19-24) Arterial Blood Oxygen Saturation 95.3 % (90-95) Arterial Blood Base Excess 6.3 mEq/L (-9-1.8) Arterial Blood Gas Delivery 3L Christiano Test POS (POS) Bedside Glucose 124 mg/dl (70-90) Assessment and Plan 62 year old female with schizoaffective disorder, DM II, KORI presents with altered mental status, attributed to haloperidol Assessment; Patient is lethargic today. She sleeps as we examined her. The thinking has been that her alter mental status was 2/2 Haloperidol, but in the context of worsening contact today, we have begun to consider additional etiologies. Considering metabolic, respiratory and neurologic causes. Plan; Order ABG's---found to have a respiratory acidosis. Starting the patient on BIPAP tonight. MRI of the brain for tomorrow. Dispo; [facility] rehab Altered mental status - Recurrent waxing and waning mentation. - ABG-- hypercapnic resp acidosis--starting on BIPAP - MRI of the brain tomorrow - ammonia levels show mild elevation. - 40mg Lactulose TID. Continue to monitor Difficulty eating food/?Dysphagia - Possibly attributed to dry throat mouth/throat (previous complaint) secondary to haloperidol - Speech eval ordered. Dx: mod-severe oral-stage dysphagia and no functional pharyngeal dysphagia. [place] toxicity - non-trough level @ 1.7, which is still somewhat elevated, but renal function not impacted. Repeat lithium levels 1.5 - Continue home dose lithium, per psychiatry. Hyperkalemia - K+ 5.0 today. Hold potassium supplementation, especially given holding furosemide - Trend BMP Schizoaffective disorder, bipolar type -without good prognostic features - Continue haloperidol 2mg HS and lithium, as above Other chronic conditions Seizure disorder - Continue levetiracetam DMII - continue Lantus + ISS with check ac/hs Bilateral proptosis - chronic Congestive heart failure -- Will hold furosemide and reassess fluid status tomorrow before resuming dose VTE Prophylaxis - Heparin 5000 units Q12H Code - DNR Resident Physician Supervision Note: I interviewed and examined the patient. Discussed with Dr. Briseno and agree with findings and plan as documented in the note. Any exceptions or clarifications are listed here: None Documented By: Jeremiah Lewis still not responsive later revisited awake a little makes some eye contact and moves to scratch leg etc d/w hyusband multiple times today viatls noted intitially quite densely somnolent equal muscule tone no asymmetry somnolence - MRI brain, ABG -- intiially was definitely psych med related and possibly crash on the back end of radha - now new/different - later noted MRI without anything worrisome, ABG showing high pCO2 likely as biggest cause of sedation -- bipap dysphagia - likely relates to somnolence
--- NOTE | 2017-10-14 18:38 | DIAGNOSTIC IMAGING REPORT ---
BRAIN WITHOUT CONTRAST CLINICAL HISTORY: 62 years-old Female presenting with somnolence, dysphagia, ?CVA. TECHNIQUE: Multisequence, multiplanar MR imaging of the brain was performed without the use of intravenous contrast. IV contrast: None. COMPARISON: 11/25/[address] head from 10/08/2017. FINDINGS: Image quality is degraded by motion artifact limiting diagnostic since activity the exam. Ventricles and sulci normal in size. Brain parenchyma normal in appearance with preserved steve-white differentiation. No mass effect or midline shift. No restricted diffusion to suggest acute ischemia. No hemorrhage. No extra-axial fluid collection. T2 skull base flow voids preserved. Minimal layering fluid noted in the sphenoid sinuses. Bone marrow signal intensity within the calvarium within normal limits. IMPRESSION: Image quality is degraded by motion artifact limiting diagnostic since activity the exam. 1. No acute intracranial abnormality. Electronically signed by: Marquise Smith M.D. 10/14/2017 6:37 PM Dictated Date/Time: 10/14/2017 6:35 PM
[2017-10-14] MEDS: HALOPERIDOL 1 MG TAB PO SCH (21:00)
[2017-10-14] MEDS: LITHIUM CARBONATE SR 300 MG TAB (LITHOBID) PO SCH (21:00)
[2017-10-14] MEDS ORDERED: LEVETIRACETAM IV 750 MG in DEXTROSE 5% 100ML 100 ML IV ONE (21:30)
[2017-10-14 22:41] VITALS: PULSE 69; O2SAT 96
[2017-10-14 22:52] VITALS: BP 83/55; PULSE 67; TEMP 36.6; O2SAT 92
[2017-10-15] VITALS (9 sets, daily range): BP systolic 87–153; BP diastolic 50–73; PULSE 59–78; TEMP 36.3–36.5; O2SAT 92–97; Ht 160 cm; Wt 109.0 kg
[2017-10-15] MEDS: INSULIN ASPART 100 UNITS/ML 3 ML PEN SC SCH ×4 (06:30→21:32)
--- NOTE | 2017-10-15 06:54 | Family Medicine Progress Note ---
Progress Note Date of Service October 15, 2017. Subjective Pt evaluation today including: conversation w/ patient Was somnolent but arousable. Said a few words, was able to mumble her answers and squeeze my fingers when asked to. Shook her head 'no' when asked about any pain . Constitutional: No fever, No chills Eyes: No worsening of vision Respiratory: No cough, No sputum All Other Systems: Reviewed and Negative Medications Current Inpatient Medications Medications (Trade) Dose Ordered Sig/Nanette Route Start Time Stop Time Status Last Admin Dose Admin Insulin Glargine (Lantus Solostar Pen) 8 units DAILY SC 10/08/17 18:00 11/07/17 17:59 10/15/17 08:40 8 UNITS Albuterol/ Ipratropium (Combivent Respimat Inh) 1 puffs QID INH 10/08/17 21:00 11/07/17 20:59 10/15/17 08:30 1 PUFFS Levetiracetam (Keppra Tab) 750 mg BID PO 10/08/17 21:00 11/07/17 20:59 Future Hold 10/14/17 09:32 750 MG Lisinopril (Zestril Tab) 5 mg QAM PO 10/09/17 09:00 11/08/17 08:59 10/15/17 08:28 5 MG Magnesium Oxide (Mag-Ox Tab) 400 mg BID PO 10/08/17 21:00 11/07/17 20:59 10/15/17 08:26 400 MG Metoprolol Succinate (Toprol Xl Tab) 50 mg DAILY PO 10/09/17 09:00 11/08/17 08:59 10/15/17 08:29 50 MG Nystatin (Mycostatin Powder) 1 appln BID EXT 10/08/17 21:00 11/07/17 20:59 10/15/17 08:23 1 APPLN Potassium Chloride (Klor-Con Tab) 80 meq QPM PO 10/08/17 21:00 11/07/17 20:59 Future Hold 10/08/17 20:53 80 MEQ Potassium Chloride (Klor-Con Tab) 160 meq QAM PO 10/09/17 09:00 11/08/17 08:59 Future Hold 10/10/17 08:29 160 MEQ Polyethylene (Miralax Powder Packet) 17 gm DAILY PRN PO 10/08/17 15:45 11/07/17 15:44 Heparin Sodium (Porcine) (Heparin Sq 5000 Unit/0.5ml) 5,000 unit Q12 SQ 10/08/17 21:00 11/07/17 20:59 10/15/17 08:45 5,000 UNIT Acetaminophen (Tylenol Tab) 650 mg Q4H PRN PO 10/08/17 15:45 11/07/17 15:44 Al Hydrox/Mg Hydrox/Simethicone (Maalox Max Susp) 15 ml Q4H PRN PO 10/08/17 15:45 11/07/17 15:44 Magnesium Hydroxide (Milk Of Magnesia Susp) 30 ml Q12H PRN PO 10/08/17 15:45 11/07/17 15:44 Ondansetron HCl (Zofran Inj) 4 mg Q6H PRN IV 10/08/17 15:45 11/07/17 15:44 Glucose (Glucose 40% Gel) 15-30 GRAMS 15 GRAMS... UD PRN PO 10/08/17 15:45 11/07/17 15:44 10/09/17 06:19 15 GM Glucose (Glucose Chew Tab) 4-8 Tablets 4 Tabl... UD PRN PO 10/08/17 15:45 11/07/17 15:44 Dextrose (Dextrose 50% 50ML Syringe) 25-50ML OF 50% DW IV FOR... UD PRN IV 10/08/17 15:45 11/07/17 15:44 10/09/17 06:47 25 ML Glucagon (Glucagon Inj) 1 mg UD PRN SQ 10/08/17 15:45 11/07/17 15:44 Furosemide 40 mg/ Syringe 4 ml @ 4 mls/min BID IV 10/08/17 21:00 11/07/17 20:59 Future Hold 10/10/17 19:55 4 MLS/MIN Miscellaneous (Iv Fluids Completed) 1 ea PRN PRN N/A 10/08/17 19:30 10/08/18 19:29 Insulin Aspart (novoLOG ASPART) SLIDING SCALE If C... ACHS SC 10/09/17 16:30 11/08/17 16:29 10/13/17 13:08 1 UNITS [place] Carbonate (Lithobid Tab) 300 mg HS PO 10/10/17 21:00 11/09/17 20:59 10/13/17 21:20 300 MG [place] Carbonate ([place] Carbonate Tab) 300 mg QAM PO 10/13/17 09:00 11/12/17 08:59 10/15/17 08:27 300 MG Lactulose (Chronulac Syrup) 40 gm TID PO 10/13/17 20:00 11/07/17 20:59 10/15/17 08:25 40 GM Levetiracetam 750 mg/Dextrose 107.5 ml @ 420 mls/hr Q12 IV 10/15/17 09:00 11/14/17 08:59 10/15/17 08:40 420 MLS/HR Objective Vital Signs Date Time Temp Pulse Resp B/P (MAP) Pulse Ox O2 Delivery O2 Flow Rate FiO2 10/15/17 10:07 59 93 3.0 10/15/17 08:07 67 18 117/73 (88) 97 Nasal Cannula 3.0 10/15/17 08:00 36.3 62 16 153/71 (98) 92 10/15/17 00:45 BiPAP 10/15/17 00:17 68 92/63 (73) 10/14/17 22:52 36.6 67 18 83/55 (64) 92 Nasal Cannula 3.0 10/14/17 22:41 69 96 3.0 10/14/17 15:59 Nasal Cannula 3.0 10/14/17 14:54 37.0 76 20 96/67 (77) 95 3.0 Physical Exam General Appearance: WD/WN, no apparent distress Eyes: normal inspection, PERRL ENT: hearing grossly normal Neck: supple, no JVD Respiratory/Chest: lungs clear, normal breath sounds, no respiratory distress Cardiovascular: regular rate, rhythm Abdomen: non tender, soft Extremities: non-tender 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: + pertinent finding (somnolent but arousable) Skin: no rash Laboratory Results Last 24 Hours Test 10/14/17 11:33 10/14/17 16:13 10/14/17 16:28 10/14/17 19:05 Bedside Glucose 127 mg/dl 124 mg/dl 121 mg/dl Arterial Blood pH 7.29 Arterial Blood Partial Pressure CO2 74 mmHg Arterial Blood Partial Pressure O2 86 mm/Hg Arterial Blood HCO3 35 mmol/L Arterial Blood Oxygen Saturation 95.3 % Arterial Blood Base Excess 6.3 mEq/L Arterial Blood Gas Delivery 3L Christiano Test POS Test 10/15/17 07:34 10/15/17 08:18 10/15/17 08:24 Bedside Glucose 112 mg/dl White Blood Count 7.69 K/uL Red Blood Count 4.70 M/uL Hemoglobin 13.1 g/dL Hematocrit 43.6 % Mean Corpuscular Volume 92.8 fL Mean Corpuscular Hemoglobin 27.9 pg Mean Corpuscular Hemoglobin Concent 30.0 g/dl RDW Standard Deviation 63.1 fL RDW Coefficient of Variation 19.0 % Platelet Count 203 K/uL Mean Platelet Volume 10.3 fL Sodium Level 140 mmol/L Potassium Level 4.7 mmol/L Chloride Level 105 mmol/L Carbon Dioxide Level 36 mmol/L Anion Gap 0.0 mmol/L Blood Urea Nitrogen 19 mg/dl Creatinine 0.98 mg/dl Est Creatinine Clear Calc Drug Dose 67.9 ml/min Estimated GFR () 71.7 Estimated GFR (Non- 61.8 BUN/Creatinine Ratio 19.8 Random Glucose 101 mg/dl Calcium Level 9.2 mg/dl Arterial Blood pH 7.33 Arterial Blood Partial Pressure CO2 67 mmHg Arterial Blood Partial Pressure O2 88 mm/Hg Arterial Blood HCO3 35 mmol/L Arterial Blood Oxygen Saturation 95.6 % Arterial Blood Base Excess 6.8 mEq/L Arterial Blood Gas Delivery 2 LITERS Christiano Test POS Assessment and Plan 62 yo F, known schizoaffective disorder, severe KORI, with recent altered mental status - likely due to Haldol Acute metabolic encephalopathy - Likely from hypercapnic respiratory acidosis - ABG slightly improved but still persistent - Pt should be on BiPAP UNLESS she is v alert (able to sit in chair and feed herself) - MRI Brain completed and unremarkable - Continue Lactulose TID Dysphagia - Mouth care Schizoaffective Disorder - Continuing home dose of [place], though it was on hold when she was not taking PO - STOPPING Haldol due to extreme somnolence Seizure disorder - Continue Keppra - changed to IV due to poor PO intake Type 2 DM - Lantus and ISS CHF - Lasix on hold yesterday, will reassess before resuming VTE: Heparin q12 Dispo: Eventual DC to [facility], not stable for DC yet Code status: DNR Resident Physician Supervision Note: I interviewed and examined the patient. Discussed with Dr. Briseno and agree with findings and plan as documented in the note. Any exceptions or clarifications are listed here: None Documented By: Jeremiah Lewis more repsonsive - awakens to voice, tries to talk some, knows she's at the hospital. ABG noted, d/w nursing to have on bipap except for when clearly awake and alert actually did eat some today vitals noted nad fatigued and somewhat somnolent but far better than prior days somnolence - MRI brain neg, ABG showing high pCO2 likely as biggest cause of sedation -- bipap appears to be improving this - but with her known KORI/OHS and worsened by somnolence will need to be vigilant on bipap at all times she's not awake and alert. initial sedation appears to have been from psych meds and coming down from bipolar dysphagia - likely relates to somnolence, clinically seems to be improving today
[2017-10-15] MEDS: NYSTATIN POWDER 15GM BTL EXT SCH ×2 (08:23→21:40)
[2017-10-15] MEDS: LACTULOSE SYRUP 10 GM/15 ML BTL 473 ML PO SCH ×3 (08:25→20:52)
[2017-10-15] MEDS: MAGNESIUM OXIDE 400 MG TAB PO SCH ×3 (08:26→21:39)
[2017-10-15] MEDS: LITHIUM CARBONATE 300 MG TAB PO SCH (08:27)
[2017-10-15] MEDS: LISINOPRIL 5 MG TAB PO SCH (08:28)
[2017-10-15] MEDS: METOPROLOL SUCC 50MG EXT REL TAB PO SCH (08:29)
[2017-10-15] MEDS: IPRATROPIUM BROMIDE/ALBUTEROL respimat INH INH SCH ×5 (08:30→20:52)
[2017-10-15 08:32] LABS: HEMATOCRIT 43.6 % (37-47); HEMOGLOBIN 13.1 g/dL (12.0-16.0); MEAN CELL VOLUME 92.8 fL (80-100); MEAN CORPUSCULAR HEMOGLOBIN 27.9 pg (25-34); MEAN PLATELET VOLUME 10.3 fL (7.4-10.4); PLATELET COUNT 203 K/uL (130-400); RED CELL DISTRIBUTION WIDTH SD 63.1 fL (36.4-46.3); WHITE BLOOD COUNT 7.69 K/uL (4.8-10.8)
[2017-10-15] MEDS: LEVETIRACETAM IV 750 MG in DEXTROSE 5% 100ML 100 ML IV SCH ×2 (08:40→21:50)
[2017-10-15] MEDS: INSULIN GLARGINE SOLOSTAR 100 UNITS/ML 3 ML PEN SC SCH (08:40)
[2017-10-15] MEDS: HEPARIN SOD 5000 UNIT/0.5 ML CARP SQ SCH ×2 (08:45→21:48)
[2017-10-15 08:59] LABS: CALCIUM 9.2 mg/dl (8.5-10.1); CREATININE 0.98 mg/dl (0.60-1.20); POTASSIUM 4.7 mmol/L (3.5-5.1)
[2017-10-15] MEDS: LITHIUM CARBONATE SR 300 MG TAB (LITHOBID) PO SCH ×2 (20:53→21:40)
[2017-10-16 07:20] LABS: HEMATOCRIT 45.6 % (37-47); HEMOGLOBIN 13.3 g/dL (12.0-16.0); MEAN CELL VOLUME 93.4 fL (80-100); MEAN CORPUSCULAR HEMOGLOBIN 27.3 pg (25-34); MEAN CORPUSCULAR HGB CONC 29.2 g/dl (32-36); MEAN PLATELET VOLUME 10.1 fL (7.4-10.4); NUCLEATED RED BLOOD CELL ABS 0.03 K/uL (0-0); PLATELET COUNT 168 K/uL (130-400); RED CELL DISTRIBUTION WIDTH CV 19.5 % (11.5-14.5); RED CELL DISTRIBUTION WIDTH SD 65.3 fL (36.4-46.3); WHITE BLOOD COUNT 6.54 K/uL (4.8-10.8)
--- NOTE | 2017-10-16 07:26 | Family Medicine Progress Note ---
Progress Note Date of Service October 16, 2017. Subjective Pt evaluation today including: physical exam Pt v somnolent, wearing nasal cannula - ideally she should be using BiPAP whenever sleeping Unable to obtain ROS or history Additional Comments: Unable to obtain due to somnolence Medications Current Inpatient Medications Medications (Trade) Dose Ordered Sig/Nanette Route Start Time Stop Time Status Last Admin Dose Admin Insulin Glargine (Lantus Solostar Pen) 8 units DAILY SC 10/08/17 18:00 11/07/17 17:59 10/15/17 08:40 8 UNITS Albuterol/ Ipratropium (Combivent Respimat Inh) 1 puffs QID INH 10/08/17 21:00 11/07/17 20:59 10/15/17 13:11 1 PUFFS Levetiracetam (Keppra Tab) 750 mg BID PO 10/08/17 21:00 11/07/17 20:59 Future Hold 10/14/17 09:32 750 MG Lisinopril (Zestril Tab) 5 mg QAM PO 10/09/17 09:00 11/08/17 08:59 10/15/17 08:28 5 MG Magnesium Oxide (Mag-Ox Tab) 400 mg BID PO 10/08/17 21:00 11/07/17 20:59 10/15/17 21:39 400 MG Metoprolol Succinate (Toprol Xl Tab) 50 mg DAILY PO 10/09/17 09:00 11/08/17 08:59 10/15/17 08:29 50 MG Nystatin (Mycostatin Powder) 1 appln BID EXT 10/08/17 21:00 11/07/17 20:59 10/15/17 21:40 1 APPLN Potassium Chloride (Klor-Con Tab) 80 meq QPM PO 10/08/17 21:00 11/07/17 20:59 Future Hold 10/08/17 20:53 80 MEQ Potassium Chloride (Klor-Con Tab) 160 meq QAM PO 10/09/17 09:00 11/08/17 08:59 Future Hold 10/10/17 08:29 160 MEQ Polyethylene (Miralax Powder Packet) 17 gm DAILY PRN PO 10/08/17 15:45 11/07/17 15:44 Heparin Sodium (Porcine) (Heparin Sq 5000 Unit/0.5ml) 5,000 unit Q12 SQ 10/08/17 21:00 11/07/17 20:59 10/15/17 21:48 5,000 UNIT Acetaminophen (Tylenol Tab) 650 mg Q4H PRN PO 10/08/17 15:45 11/07/17 15:44 Al Hydrox/Mg Hydrox/Simethicone (Maalox Max Susp) 15 ml Q4H PRN PO 10/08/17 15:45 11/07/17 15:44 Magnesium Hydroxide (Milk Of Magnesia Susp) 30 ml Q12H PRN PO 10/08/17 15:45 11/07/17 15:44 Ondansetron HCl (Zofran Inj) 4 mg Q6H PRN IV 10/08/17 15:45 11/07/17 15:44 Glucose (Glucose 40% Gel) 15-30 GRAMS 15 GRAMS... UD PRN PO 10/08/17 15:45 11/07/17 15:44 10/09/17 06:19 15 GM Glucose (Glucose Chew Tab) 4-8 Tablets 4 Tabl... UD PRN PO 10/08/17 15:45 11/07/17 15:44 Dextrose (Dextrose 50% 50ML Syringe) 25-50ML OF 50% DW IV FOR... UD PRN IV 10/08/17 15:45 11/07/17 15:44 10/09/17 06:47 25 ML Glucagon (Glucagon Inj) 1 mg UD PRN SQ 10/08/17 15:45 11/07/17 15:44 Furosemide 40 mg/ Syringe 4 ml @ 4 mls/min BID IV 10/08/17 21:00 11/07/17 20:59 Future Hold 10/10/17 19:55 4 MLS/MIN Miscellaneous (Iv Fluids Completed) 1 ea PRN PRN N/A 10/08/17 19:30 10/08/18 19:29 Insulin Aspart (novoLOG ASPART) SLIDING SCALE If C... ACHS SC 10/09/17 16:30 11/08/17 16:29 10/15/17 13:13 2 UNITS [place] Carbonate (Lithobid Tab) 300 mg HS PO 10/10/17 21:00 11/09/17 20:59 10/15/17 21:40 300 MG [place] Carbonate ([place] Carbonate Tab) 300 mg QAM PO 10/13/17 09:00 11/12/17 08:59 10/15/17 08:27 300 MG Lactulose (Chronulac Syrup) 40 gm TID PO 10/13/17 20:00 11/07/17 20:59 10/15/17 13:10 40 GM Levetiracetam 750 mg/Dextrose 107.5 ml @ 420 mls/hr Q12 IV 10/15/17 09:00 11/14/17 08:59 10/15/17 21:50 420 MLS/HR Objective Vital Signs Date Time Temp Pulse Resp B/P (MAP) Pulse Ox O2 Delivery O2 Flow Rate FiO2 10/16/17 08:00 37.1 69 22 90/59 (69) 97 Nasal Cannula 2.0 10/16/17 00:30 BiPAP 10/15/17 22:45 36.4 78 18 102/55 (71) 95 BiPAP 10/15/17 22:13 76 97 3.0 10/15/17 20:30 BiPAP 10/15/17 20:21 71 104/50 (68) 10/15/17 16:00 BiPAP 10/15/17 15:10 36.4 70 18 100/60 (73) 95 BiPAP 10/15/17 10:07 59 93 3.0 Physical Exam General Appearance: WD/WN, no apparent distress Eyes: normal inspection, PERRL ENT: normal ENT inspection Neck: supple Respiratory/Chest: lungs clear, normal breath sounds, no respiratory distress Cardiovascular: regular rate, rhythm, no murmur Abdomen: non tender, soft Extremities: non-tender, no pedal edema 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: + pertinent finding (sleeping deeply) Laboratory Results Last 24 Hours Test 10/15/17 11:53 10/15/17 16:46 10/15/17 20:26 10/16/17 07:04 Bedside Glucose 116 mg/dl 141 mg/dl 141 mg/dl White Blood Count 6.54 K/uL Red Blood Count 4.88 M/uL Hemoglobin 13.3 g/dL Hematocrit 45.6 % Mean Corpuscular Volume 93.4 fL Mean Corpuscular Hemoglobin 27.3 pg Mean Corpuscular Hemoglobin Concent 29.2 g/dl Platelet Count 168 K/uL Mean Platelet Volume 10.1 fL Neutrophils (%) (Auto) 75.2 % Lymphocytes (%) (Auto) 11.6 % Monocytes (%) (Auto) 11.5 % Eosinophils (%) (Auto) 1.2 % Basophils (%) (Auto) 0.2 % Neutrophils # (Auto) 4.92 K/uL Lymphocytes # (Auto) 0.76 K/uL Monocytes # (Auto) 0.75 K/uL Eosinophils # (Auto) 0.08 K/uL Basophils # (Auto) 0.01 K/uL RDW Standard Deviation 65.3 fL RDW Coefficient of Variation 19.5 % Immature Granulocyte % (Auto) 0.3 % Immature Granulocyte # (Auto) 0.02 K/uL Nucleated RBC Absolute Count (auto) 0.03 K/uL Nucleated Red Blood Cells % 0.4 % Sodium Level 139 mmol/L Potassium Level 4.5 mmol/L Chloride Level 103 mmol/L Carbon Dioxide Level 37 mmol/L Anion Gap 0.0 mmol/L Blood Urea Nitrogen 17 mg/dl Creatinine 1.13 mg/dl Est Creatinine Clear Calc Drug Dose 58.2 ml/min Estimated GFR () 60.3 Estimated GFR (Non- 52.0 BUN/Creatinine Ratio 15.0 Random Glucose 129 mg/dl Calcium Level 9.1 mg/dl Total Bilirubin 0.9 mg/dl Aspartate Amino Transf (AST/SGOT) 39 U/L Alanine Aminotransferase (ALT/SGPT) 31 U/L Alkaline Phosphatase 298 U/L Total Protein 6.6 gm/dl Albumin 2.7 gm/dl Globulin 3.9 gm/dl Albumin/Globulin Ratio 0.7 Test 10/16/17 07:49 Bedside Glucose 144 mg/dl Assessment and Plan 62 yo F, known schizoaffective disorder, severe KORI, with recent altered mental status - likely due to Haldol, but improves w/constant use of BiPAP Acute metabolic encephalopathy - Likely from hypercapnic respiratory acidosis - Pt should be on BiPAP UNLESS she is v alert (able to sit in chair and feed herself) - MRI Brain completed and unremarkable - Continue Lactulose TID Dysphagia - Mouth care Schizoaffective Disorder - Continuing home dose of [place], though it was on hold when she was not taking PO - STOPPING Haldol due to extreme somnolence Seizure disorder - Continue Keppra - changed to IV due to poor PO intake Type 2 DM - Lantus and ISS CHF - Lasix on hold yesterday, will reassess before resuming VTE: Heparin q12 Dispo: Eventual DC to [facility], not stable for DC yet Code status: DNR Resident Physician Supervision Note: I interviewed and examined the patient. Discussed with Dr. Romero and agree with findings and plan as documented in the note. Any exceptions or clarifications are listed here: None Documented By: Jeremiah Lewis wasn't using bipap all the time - pCO2 only improved some - still fairly somnolent but about like yestrday, not as densely somnolent as the prior days vitals noted, opens eyes, talks a little, drifts off. no focal neuro deficits somnolence - initially bipolar med related, these have been reduced. seems also to be hypercapnea related now - but have not been able to keep bipap on long enough for success --> will definitely need at all times when she sleeps. -if pCO2 normalizes and mentation does not, then will have to revisit other differentials and/or consider neuro / psych consults to assist in ddx -if pCO2 fails to normalize with more aggressive use of bipap, or is so brittle that she can't exist off bipap, then will have to consult pulm dispo -- peer to peer for [facility] approved due to need for constant physician supervision as she rehabs updated Resident Tracking Resident Involvement: Resident Care Provided Care Provided: [facility]
[2017-10-16 07:40] LABS: BASO % 0.2 %; BASO ABS # 0.01 K/uL (0-0.2); EOS % 1.2 %; EOS ABS # 0.08 K/uL (0-0.5); IG# 0.02 K/uL (0.00-0.02); LYMPH % 11.6 %; LYMPH ABS # 0.76 K/uL (1.2-3.4); MONO % 11.5 %; MONO ABS # 0.75 K/uL (0.11-0.59); NEUT % 75.2 %; NEUT ABS # 4.92 K/uL (1.4-6.5)
[2017-10-16 07:49] LABS: ALBUMIN 2.7 gm/dl (3.4-5.0); CALCIUM 9.1 mg/dl (8.5-10.1); CREATININE 1.13 mg/dl (0.60-1.20); POTASSIUM 4.5 mmol/L (3.5-5.1)
[2017-10-16 07:52] LABS: TOTAL PROTEIN 6.6 gm/dl (6.4-8.2)
[2017-10-16 08:00] VITALS: BP 90/59; PULSE 69; TEMP 37.1; O2SAT 97
[2017-10-16 09:15] VITALS: BP 110/64; PULSE 72
[2017-10-16] MEDS: MAGNESIUM OXIDE 400 MG TAB PO SCH ×2 (09:15→23:45)
[2017-10-16] MEDS: LACTULOSE SYRUP 10 GM/15 ML BTL 473 ML PO SCH ×3 (09:15→23:45)
[2017-10-16] MEDS: LEVETIRACETAM IV 750 MG in DEXTROSE 5% 100ML 100 ML IV SCH ×2 (09:15→23:45)
[2017-10-16] MEDS: IPRATROPIUM BROMIDE/ALBUTEROL respimat INH INH SCH ×4 (09:16→23:44)
[2017-10-16] MEDS: LISINOPRIL 5 MG TAB PO SCH (09:17)
[2017-10-16] MEDS: METOPROLOL SUCC 50MG EXT REL TAB PO SCH (09:19)
[2017-10-16] MEDS: NYSTATIN POWDER 15GM BTL EXT SCH ×2 (09:19→23:45)
[2017-10-16] MEDS: LITHIUM CARBONATE 300 MG TAB PO SCH (09:27)
[2017-10-16] MEDS: INSULIN GLARGINE SOLOSTAR 100 UNITS/ML 3 ML PEN SC SCH (09:45)
[2017-10-16] MEDS: INSULIN ASPART 100 UNITS/ML 3 ML PEN SC SCH ×4 (09:46→21:00)
[2017-10-16] MEDS: HEPARIN SOD 5000 UNIT/0.5 ML CARP SQ SCH ×2 (09:47→21:00)
[2017-10-16 15:16] VITALS: BP 121/77; PULSE 71; TEMP 37; O2SAT 100
[2017-10-16 20:00] VITALS: O2SAT 100
[2017-10-16 21:47] VITALS: PULSE 79; O2SAT 97
[2017-10-16 23:11] VITALS: BP 100/64; PULSE 72; TEMP 36.9; O2SAT 97
[2017-10-16] MEDS: LITHIUM CARBONATE SR 300 MG TAB (LITHOBID) PO SCH (23:48)
[2017-10-17] VITALS: O2SAT 100
[2017-10-17 06:55] LABS: BASO % 0.1 %; BASO ABS # 0.01 K/uL (0-0.2); EOS % 1.6 %; EOS ABS # 0.12 K/uL (0-0.5); HEMATOCRIT 43.6 % (37-47); HEMOGLOBIN 12.6 g/dL (12.0-16.0); IG# 0.02 K/uL (0.00-0.02); LYMPH % 11.8 %; LYMPH ABS # 0.88 K/uL (1.2-3.4); MEAN CELL VOLUME 92.6 fL (80-100); MEAN CORPUSCULAR HEMOGLOBIN 26.8 pg (25-34); MEAN CORPUSCULAR HGB CONC 28.9 g/dl (32-36); MEAN PLATELET VOLUME 10.2 fL (7.4-10.4); MONO % 8.2 %; MONO ABS # 0.61 K/uL (0.11-0.59); NEUT ABS # 5.81 K/uL (1.4-6.5); PLATELET COUNT 162 K/uL (130-400); RED CELL DISTRIBUTION WIDTH CV 19.5 % (11.5-14.5); RED CELL DISTRIBUTION WIDTH SD 64.1 fL (36.4-46.3); WHITE BLOOD COUNT 7.45 K/uL (4.8-10.8)
[2017-10-17 07:14] VITALS: BP 108/67; PULSE 65; TEMP 36.9; O2SAT 100
[2017-10-17 07:18] LABS: ALBUMIN 2.7 gm/dl (3.4-5.0); CALCIUM 9.1 mg/dl (8.5-10.1); CREATININE 0.97 mg/dl (0.60-1.20); POTASSIUM 4.5 mmol/L (3.5-5.1)
[2017-10-17 07:21] LABS: TOTAL PROTEIN 6.8 gm/dl (6.4-8.2)
[2017-10-17] MEDS: NYSTATIN POWDER 15GM BTL EXT SCH ×2 (08:50→21:06)
[2017-10-17] MEDS: METOPROLOL SUCC 50MG EXT REL TAB PO SCH (08:51)
[2017-10-17] MEDS: MAGNESIUM OXIDE 400 MG TAB PO SCH ×2 (08:51→21:04)
[2017-10-17] MEDS: LACTULOSE SYRUP 10 GM/15 ML BTL 473 ML PO SCH ×3 (08:51→21:04)
[2017-10-17] MEDS: IPRATROPIUM BROMIDE/ALBUTEROL respimat INH INH SCH ×4 (08:51→21:04)
[2017-10-17] MEDS: LEVETIRACETAM IV 750 MG in DEXTROSE 5% 100ML 100 ML IV SCH ×2 (08:52→21:05)
[2017-10-17] MEDS: LISINOPRIL 5 MG TAB PO SCH (08:52)
[2017-10-17] MEDS: HEPARIN SOD 5000 UNIT/0.5 ML CARP SQ SCH ×2 (08:53→21:13)
[2017-10-17] MEDS: INSULIN GLARGINE SOLOSTAR 100 UNITS/ML 3 ML PEN SC SCH (08:54)
[2017-10-17] MEDS: LITHIUM CARBONATE 300 MG TAB PO SCH (10:20)
[2017-10-17] MEDS: INSULIN ASPART 100 UNITS/ML 3 ML PEN SC SCH ×4 (10:22→21:13)
[2017-10-17] MEDS: SODIUM CHLORIDE 0.9% 1000ML 1,000 ML IV SCH ×2 (10:40→21:03)
[2017-10-17 11:33] VITALS: O2SAT 96
[2017-10-17 16:01] VITALS: BP 108/72; PULSE 63; TEMP 36.5; O2SAT 100
[2017-10-17] MEDS: CEFTRIAXONE SOD INJ 1 GM in DEXTROSE 5% ADD-VANTAGE 50ML 50 ML IV SCH (16:14)
--- NOTE | 2017-10-17 16:43 | Family Medicine Progress Note ---
Progress Note Date of Service October 17, 2017. Subjective Pt evaluation today including: physical exam, chart review, lab review, review of studies Voiding: no voiding problems, no incontinence Patient appears lethargic and does not respond appropriately to questions. During the time of exam the patient was alert and on nasal cannula. The nurse states that the patients mental status waxes and wanes. Additional Comments: Unable to obtain review of systems due to altered mental state Medications Current Inpatient Medications Medications (Trade) Dose Ordered Sig/Nanette Route Start Time Stop Time Status Last Admin Dose Admin Insulin Glargine (Lantus Solostar Pen) 8 units DAILY SC 10/08/17 18:00 11/07/17 17:59 10/17/17 08:54 8 UNITS Albuterol/ Ipratropium (Combivent Respimat Inh) 1 puffs QID INH 10/08/17 21:00 11/07/17 20:59 10/17/17 12:43 1 PUFFS Levetiracetam (Keppra Tab) 750 mg BID PO 10/08/17 21:00 11/07/17 20:59 Future Hold 10/14/17 09:32 750 MG Lisinopril (Zestril Tab) 5 mg QAM PO 10/09/17 09:00 11/08/17 08:59 10/17/17 08:52 5 MG Magnesium Oxide (Mag-Ox Tab) 400 mg BID PO 10/08/17 21:00 11/07/17 20:59 10/17/17 08:51 400 MG Metoprolol Succinate (Toprol Xl Tab) 50 mg DAILY PO 10/09/17 09:00 11/08/17 08:59 10/17/17 08:51 50 MG Nystatin (Mycostatin Powder) 1 appln BID EXT 10/08/17 21:00 11/07/17 20:59 10/17/17 08:50 1 APPLN Potassium Chloride (Klor-Con Tab) 80 meq QPM PO 10/08/17 21:00 11/07/17 20:59 Future Hold 10/08/17 20:53 80 MEQ Potassium Chloride (Klor-Con Tab) 160 meq QAM PO 10/09/17 09:00 11/08/17 08:59 Future Hold 10/10/17 08:29 160 MEQ Polyethylene (Miralax Powder Packet) 17 gm DAILY PRN PO 10/08/17 15:45 11/07/17 15:44 Heparin Sodium (Porcine) (Heparin Sq 5000 Unit/0.5ml) 5,000 unit Q12 SQ 10/08/17 21:00 11/07/17 20:59 10/17/17 08:53 5,000 UNIT Acetaminophen (Tylenol Tab) 650 mg Q4H PRN PO 10/08/17 15:45 11/07/17 15:44 Al Hydrox/Mg Hydrox/Simethicone (Maalox Max Susp) 15 ml Q4H PRN PO 10/08/17 15:45 11/07/17 15:44 Magnesium Hydroxide (Milk Of Magnesia Susp) 30 ml Q12H PRN PO 10/08/17 15:45 11/07/17 15:44 Ondansetron HCl (Zofran Inj) 4 mg Q6H PRN IV 10/08/17 15:45 11/07/17 15:44 Glucose (Glucose 40% Gel) 15-30 GRAMS 15 GRAMS... UD PRN PO 10/08/17 15:45 11/07/17 15:44 10/09/17 06:19 15 GM Glucose (Glucose Chew Tab) 4-8 Tablets 4 Tabl... UD PRN PO 10/08/17 15:45 11/07/17 15:44 Dextrose (Dextrose 50% 50ML Syringe) 25-50ML OF 50% DW IV FOR... UD PRN IV 10/08/17 15:45 11/07/17 15:44 10/09/17 06:47 25 ML Glucagon (Glucagon Inj) 1 mg UD PRN SQ 10/08/17 15:45 11/07/17 15:44 Furosemide 40 mg/ Syringe 4 ml @ 4 mls/min BID IV 10/08/17 21:00 11/07/17 20:59 Future Hold 10/10/17 19:55 4 MLS/MIN Miscellaneous (Iv Fluids Completed) 1 ea PRN PRN N/A 10/08/17 19:30 10/08/18 19:29 Insulin Aspart (novoLOG ASPART) SLIDING SCALE If C... ACHS SC 10/09/17 16:30 11/08/17 16:29 10/17/17 12:50 1 UNITS [place] Carbonate (Lithobid Tab) 300 mg HS PO 10/10/17 21:00 11/09/17 20:59 Future Hold 10/16/17 23:48 300 MG [place] Carbonate ([place] Carbonate Tab) 300 mg QAM PO 10/13/17 09:00 11/12/17 08:59 Future Hold 10/16/17 09:27 300 MG Lactulose (Chronulac Syrup) 40 gm TID PO 10/13/17 20:00 11/07/17 20:59 10/17/17 08:51 40 GM Levetiracetam 750 mg/Dextrose 107.5 ml @ 420 mls/hr Q12 IV 10/15/17 09:00 11/14/17 08:59 10/17/17 08:52 420 MLS/HR Sodium Chloride 1,000 ml @ 100 mls/hr Q10H IV 10/17/17 10:30 11/16/17 10:29 10/17/17 10:40 100 MLS/HR Ceftriaxone Sodium 1 gm/ Dextrose 50 ml @ 100 mls/hr Q24H IV 10/17/17 16:00 10/27/17 15:59 10/17/17 16:14 100 MLS/HR Objective Vital Signs Date Time Temp Pulse Resp B/P (MAP) Pulse Ox O2 Delivery O2 Flow Rate FiO2 10/17/17 16:01 36.5 63 16 108/72 (84) 100 BiPAP 3.0 10/17/17 11:33 96 BiPAP 10/17/17 10:18 Nasal Cannula 2.0 10/17/17 07:14 36.9 65 20 108/67 (81) 100 Nasal Cannula 2.0 10/17/17 00:00 100 BiPAP 2.0 10/16/17 23:11 36.9 72 18 100/64 (76) 97 BiPAP 10/16/17 21:47 79 97 3.0 10/16/17 20:00 100 BiPAP 2.0 Physical Exam General Appearance: + pertinent finding (Lethargic) Eyes: PERRL, sclerae normal, + pertinent finding (Ptosis) Neck: supple, trachea midline Respiratory/Chest: chest non-tender, lungs clear, + decreased breath sounds Cardiovascular: regular rate, rhythm, no edema, no gallop Abdomen: normal bowel sounds, non tender, soft Extremities: no pedal edema, no calf tenderness 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: + disoriented, + pertinent finding (Lethargic) Laboratory Results Results Past 24 Hours Test 10/16/17 21:01 10/17/17 06:38 10/17/17 07:38 10/17/17 07:52 Range/Units Bedside Glucose 146 130 70-90 mg/dl White Blood Count 7.45 4.8-10.8 K/uL Red Blood Count 4.71 4.2-5.4 M/uL Hemoglobin 12.6 12.0-16.0 g/dL Hematocrit 43.6 37-47 % Mean Corpuscular Volume 92.6 80-100 fL Mean Corpuscular Hemoglobin 26.8 25-34 pg Mean Corpuscular Hemoglobin Concent 28.9 32-36 g/dl Platelet Count 162 130-400 K/uL Mean Platelet Volume 10.2 7.4-10.4 fL Neutrophils (%) (Auto) 78.0 % Lymphocytes (%) (Auto) 11.8 % Monocytes (%) (Auto) 8.2 % Eosinophils (%) (Auto) 1.6 % Basophils (%) (Auto) 0.1 % Neutrophils # (Auto) 5.81 1.4-6.5 K/uL Lymphocytes # (Auto) 0.88 1.2-3.4 K/uL Monocytes # (Auto) 0.61 0.11-0.59 K/uL Eosinophils # (Auto) 0.12 0-0.5 K/uL Basophils # (Auto) 0.01 0-0.2 K/uL RDW Standard Deviation 64.1 36.4-46.3 fL RDW Coefficient of Variation 19.5 11.5-14.5 % Immature Granulocyte % (Auto) 0.3 % Immature Granulocyte # (Auto) 0.02 0.00-0.02 K/uL Sodium Level 138 136-145 mmol/L Potassium Level 4.5 3.5-5.1 mmol/L Chloride Level 102 98-107 mmol/L Carbon Dioxide Level 34 21-32 mmol/L Anion Gap 3.0 3-11 mmol/L Blood Urea Nitrogen 15 7-18 mg/dl Creatinine 0.97 0.60-1.20 mg/dl Est Creatinine Clear Calc Drug Dose 67.8 ml/min Estimated GFR () 72.5 Estimated GFR (Non- 62.6 BUN/Creatinine Ratio 15.7 10-20 Random Glucose 148 70-99 mg/dl Calcium Level 9.1 8.5-10.1 mg/dl Total Bilirubin 0.9 0.2-1 mg/dl Aspartate Amino Transf (AST/SGOT) 37 15-37 U/L Alanine Aminotransferase (ALT/SGPT) 31 12-78 U/L Alkaline Phosphatase 307 45-117 U/L Ammonia 47.0 11-32 umol/L Total Protein 6.8 6.4-8.2 gm/dl Albumin 2.7 3.4-5.0 gm/dl Globulin 4.1 2.5-4.0 gm/dl Albumin/Globulin Ratio 0.7 0.9-2 [place] Level 2.6 0.6-1.2 mMOL/L Arterial Blood pH 7.37 7.35-7.45 Arterial Blood Partial Pressure CO2 61 35-46 mmHg Arterial Blood Partial Pressure O2 86 80-95 mm/Hg Arterial Blood HCO3 35 19-24 mmol/L Arterial Blood Oxygen Saturation 95.8 90-95 % Arterial Blood Base Excess 7.3 -9-1.8 mEq/L Arterial Blood Gas Delivery 3 L [place] Test POS POS Test 10/17/17 11:32 10/17/17 14:08 10/17/17 14:10 10/17/17 16:49 Range/Units Bedside Glucose 178 183 70-90 mg/dl Urine Color ORANGE Urine Appearance TURBID CLEAR Urine pH 7.0 4.5-7.5 Urine Specific [place] 1.024 1.000-1.030 Urine Protein 2+ NEG Urine Glucose (UA) NEG NEG Urine Ketones 1+ NEG Urine Occult Blood 3+ NEG Urine Nitrite NEG NEG Urine Bilirubin NEG NEG Urine Urobilinogen NEG NEG Urine Leukocyte Esterase LARGE NEG Urine WBC (Auto) >30 0-5 /hpf Urine RBC (Auto) 10-30 0-4 /hpf Urine Hyaline Casts (Auto) 1-5 0-5 /lpf Urine Epithelial Cells (Auto) >30 0-5 /lpf Urine Bacteria (Auto) 1+ NEG Urine Pathogenic Casts 0 /lpf Urine Yeast (Auto) NONE PRSENT [place] Level 2.5 0.6-1.2 mMOL/L Microbiology Results 10/17/17 Urine Culture, Received Pending Assessment and Plan The patient is a 62 year old female with a past medical history of schizoaffective disorder, severe KORI, and a recent history of AMS that presented to the ED with somnolence secondary to excessive Haldol intake Acute metabolic encephalopathy - 2/2 Oversedation from Haldol dose + Hypercapnic Respiratory Acidosis - [place] level 2.4 (upper limit is 1.2) - MRI Brain: No acute abnormalities - Hx of hyperammonemia - On lactulose. Hypercapnic Respiratory Acidosis sec to OHS - pCO2 improved to 61 (65 yesterday), pH 7.37. HCO3 35 - Patient on BiPAP while asleep [place] Toxicity - Hold lithium. Recheck levels. EKG - IVF - Discussed with nephrology - no indication for dialysis at this point. No clear etiology for the levels going up. No obvious sign of volume contraction. - ? med noncompliance at home. - Check UA. - Discussed with Dr. Kelley - considering other medication while patient continues to fluctuate in volume status, being on lasix - Patient has done well with lithium so would prefer to continue to use lithium. Follow. Abnormal UA - Urine culture - Start rocephin. 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 - Follow closely while getting hydrated. Schizoaffective Disorder - Holding [place] due to [place] level toxicity - Stopped Haldol due to Somnolence Seizure disorder - Continue Keppra 750mg IV BID - changed to IV due to poor PO intake Type 2 DM - Lantus and ISS DVT - Heparin Dispo - Referral made to [facility] Resuscitation Status - DNR Resident Tracking Resident Involvement: Resident Care Provided Care Provided: Adult Hospital Medicine Reviewed: Pt Seen/Exam by Me History excessively sedated this morning. opened eyes to verbal stimuli. Constitutional: denies: fever General Appearance: other (excessive somnolent) Respiratory: lungs clear, no respiratory distress Cardiovascular: regular rate, rhythm Gastrointestinal: soft Skin Characteristics: warm/dry Assessment/Plan Resident Physician Supervision Note: I independently interviewed and examined the patient and verified the lopez history and physical, reviewed labs and image studies, discussed the case with the resident Dr. Aburto and agree with the findings and care plan Change in mental status and lithium toxicity - start IVF, follow lithium level, ekg - baseline. spoke to nephrology and psychiatry. continue bipap use while somnolent Spoke to and updated. Spent 40 min of critical care time.
[2017-10-17 22:00] VITALS: PULSE 83; O2SAT 95
[2017-10-18] VITALS: BP 140/78; PULSE 62; TEMP 36.4; O2SAT 100; O2SAT 98
[2017-10-18] MEDS: SODIUM CHLORIDE 0.9% 1000ML 1,000 ML IV SCH ×2 (05:27→16:48)
[2017-10-18 07:26] VITALS: BP 112/71; PULSE 61; TEMP 36.2; O2SAT 100
[2017-10-18 08:14] LABS: ALBUMIN 2.4 gm/dl (3.4-5.0); CALCIUM 8.6 mg/dl (8.5-10.1); CREATININE 0.93 mg/dl (0.60-1.20); POTASSIUM 4.2 mmol/L (3.5-5.1)
[2017-10-18 08:17] LABS: TOTAL PROTEIN 6.3 gm/dl (6.4-8.2)
[2017-10-18 08:18] LABS: HEMATOCRIT 41.3 % (37-47); HEMOGLOBIN 12.3 g/dL (12.0-16.0); MEAN CELL VOLUME 92.4 fL (80-100); MEAN CORPUSCULAR HEMOGLOBIN 27.5 pg (25-34); MEAN CORPUSCULAR HGB CONC 29.8 g/dl (32-36); MEAN PLATELET VOLUME 11.7 fL (7.4-10.4); PLATELET COUNT 160 K/uL (130-400); RED CELL DISTRIBUTION WIDTH CV 19.3 % (11.5-14.5); RED CELL DISTRIBUTION WIDTH SD 64.5 fL (36.4-46.3)
[2017-10-18] MEDS: NYSTATIN POWDER 15GM BTL EXT SCH ×2 (08:56→21:19)
[2017-10-18] MEDS: LACTULOSE SYRUP 10 GM/15 ML BTL 473 ML PO SCH ×3 (08:57→21:19)
[2017-10-18] MEDS: MAGNESIUM OXIDE 400 MG TAB PO SCH ×2 (08:57→21:19)
[2017-10-18] MEDS: LEVETIRACETAM IV 750 MG in DEXTROSE 5% 100ML 100 ML IV SCH ×2 (08:57→21:18)
[2017-10-18] MEDS: LISINOPRIL 5 MG TAB PO SCH (08:57)
[2017-10-18] MEDS: IPRATROPIUM BROMIDE/ALBUTEROL respimat INH INH SCH ×4 (08:57→21:18)
[2017-10-18] MEDS: METOPROLOL SUCC 50MG EXT REL TAB PO SCH (08:57)
[2017-10-18] MEDS: INSULIN GLARGINE SOLOSTAR 100 UNITS/ML 3 ML PEN SC SCH (09:00)
[2017-10-18] MEDS: HEPARIN SOD 5000 UNIT/0.5 ML CARP SQ SCH ×2 (09:01→21:20)
[2017-10-18] MEDS: INSULIN ASPART 100 UNITS/ML 3 ML PEN SC SCH ×4 (09:06→21:20)
--- NOTE | 2017-10-18 14:01 | Pulmonary Consultation ---
History General Date of Service: October 18, 2017. Stated Complaint: Metabolic Encephalopathy HPI The patient is a 62 year old female who presents to [facility] with complaints of Metabolic Encephalopathy. The patient's primary care provider is Bin Patel M.D.. 62-year-old female admitted 10/08/2017 with acute on chronic respiratory insufficiency noted at that time to be hypercapnic with respiratory acidosis and associated obtain did state. Patient is also noted to have elevated lithium levels during her hospital stay and has responded to medical care with increasing mental status but continues to continued hypoxemia and hypercapnic state. I went to see the patient and she is awake and pleasant but only oriented to person and overall is a very poor historian. She did denies: Fever , chills, cough, pleurisy or classic cardiac chest pain. Most of my record taking has been through the EMS. Current inpatient workup ABG 10/14/2017: 7.29/74/86/35 (3L) ABG 10/15/2017: 7.33/67/88/35 (2L) ABG 10/16/2017: 7.35/65/84/35 (2L) ABG 10/17/2017: 7.37/61/86/35 (3L) A-a Gradient: 31 Serum CO2: 35 Cr: 1.370.93 Pro-BNP: 1247 Troponin I: highest 0.047 Holcomb: 1.52.62.52.3 CXR 10/08/2017 cardiomegaly, hilar fullness, per vascular cuffing Video swallow: No tracheal aspirate identified MRI brain: (non-contrast) No acute intracranial abnormalities noted Previous Work-Up Nocturnal Oximetry Study (06/23-05/29) o Longest continuous time with SaO2 <89% 2 minutes & 44 seconds Cardiac Echo (12/24/15) o LV: EF=50-55%, Type 1 diastolic dysfunction o RV: severely dilated, o LA: mildly dilated o RA: moderately dilated o TR: mod-sever o RSVP: 43mmHg PFTs attempted 11/29/13 but secondary to coughing data was unreliable ABGS: 06/22/16 (13:23) 7.34/88/111/46 6Lnc A-a: none 06/22/16 (0900) 7.29/97/93/46 6Lnc A-a: none 06/21/16 (1450) 7.30/91/71/44 2Lnc A-a: none 06/27/16 (1000) 7.40/88/66/53 2Lnc A-a: none 06/26/16 (1248) 7.43/86/65/57 2Lnc A-a: none Cardiac catheterization 04/08/2008: LVEDP 18mmHg Bilateral lower extremity venous Dopplers 01/30/2017: No evidence of DVT Left upper extremity venous Doppler 04/09/2015: No evidence of DVT Perfusion lung scan 01/31/2014: Technically limited study with poor ventilation portion perfusion study suggest low to intermediate probability of acute pulmonary embolism Microbiology: 1) URINE (11/28/07) VRE 2) URINE (11/18/07) Klebsiella and Citrobacter 3) URINE (11/11/07) VRE 4) URIN (11/09/07) VRE Past Medical History: 1. Cardiomyopathy/congestive heart failure 2. Complex partial seizure 3. Congestive heart failure 4. Diabetic nephropathy 5. Hypercapnia 6. Hypertension 7. Obesity 8. Paranoid schizophrenia 9. Nephropathy 10. Pulmonary hypertension 11. Respiratory failure 12. Tremor 13. Possible partial complex seizure 14. Hypoxemia 15. Elevated ammonia 16. KORI: Poorly compliant with CPAP 17. Oxygen independent 2 L at home 18. Bipolar disorder 19. Obesity hypoventilation syndrome Past Surgical History: 1. no surgical history Family History FH: HTN (hypertension) FH: diabetes mellitus Heart disease HTN (hypertension) diabetes mellitus Heart disease Social History Hx Tobacco Use In Past Year: No Smoking Status: Never Smoker Alcohol: never Drug Use: none Marital status: Housing status: lives with significant other Occupational Status: retired Hx Tobacco Use In Past Year?: No Smoking Status: Never Smoker Alcohol: never Drug Use: none Marital status: Housing status: lives with significant other Occupational Status: retired Historian: EMS Review of Systems Patient is a poor historian and I am unable to perform appropriate 15 point review of systems Past Medical History Past Medical History: Please refer to HPI Past Medical History: bipolar disorder, congestive heart failure, diabetes, renal disease, other Past Surgical History: Please refer to HPI Past Surgical History: no surgical history Family History FH: HTN (hypertension) FH: diabetes mellitus Heart disease Please refer to HPI Social History Please refer to HPI Hx Tobacco Use In Past Year?: No Smoking Status: Never Smoker Alcohol: never Drug Use: none Marital status: Housing status: other Occupational Status: retired Immunizations History of Influenza Vaccine: Unknown Influenza Vaccine Date: Sep 27, 2009 History of Tetanus Vaccine?: Unknown History of Pneumococcal: No Pneumococcal Date: Jun 28, 2007 History of Hepatitis B Vaccine: Unknown History of MDRO History of MDRO: Yes Type of MDRO: VRE Allergies Coded Allergies: Penicillins (Unverified Allergy, Unknown, unknown, 10/01/17) Current Medications Reported Home Medications Medications Dose Route/Sig Max Daily Dose Days Date Category Dose Instructions Polyethylene Glycol 3350 (Polyethylene Glycol 3350 (Bulk) 1 Pow Pow 17 Gm PO DAILY PRN 10/08/17 Reported Holcomb Carbonate ER (Holcomb Carbonate) 300 Mg Tab 300 Mg PO HS 10/08/17 Reported Chronulac (Lactulose) 10 Gm/15 Ml Syrp 30 Gm PO TID 10/08/17 Reported Haldol Decanoate 100 (Haloperidol Decanoate) 100 Mg/Ml Inj 1 Ml IM MONTHLY 10/08/17 Reported Toprol Xl (Metoprolol Succinate) 50 Mg Tabcr 50 Mg PO DAILY 10/08/17 Reported Keppra (Levetiracetam) 250 Mg Tab 750 Mg PO BID 10/08/17 Reported Haloperidol 1 Mg Tab 2 Mg PO BID 10/08/17 Reported Micro-K Ext Rel (Potassium Chloride) 10 Meq Capcr 80 Meq PO QPM 10/01/17 Reported K-Tabs (Potassium Chloride) 10 Meq Tab 40 Meq PO DAILY@1200 10/01/17 Reported Furosemide 80 Mg Tab 80 Mg PO QAM 10/01/17 Reported Furosemide 40 Mg Tab 40 Mg PO QPM 10/01/17 Reported Micro-K Ext Rel (Potassium Chloride) 10 Meq Capcr 160 Meq PO QAM 01/11/17 Reported Lantus Solostar (Insulin Glargine) 100 Unit/Ml Inj 14 Units SC AMPM 01/11/17 Reported Nystop (Nystatin) 45 Appln/15 Gm Powd 1 Appln TOP BID 12/04/16 Reported Novolog (Insulin Aspart) 100 Units/Ml Inj 0 SQ UD 11/24/16 Reported ONLY IF BS IS >180 Holcomb Carbonate 300 Mg Cap 300 Mg PO QAM 11/18/16 Reported Tessalon Perles (Benzonatate) 200 Mg Cap 200 Mg PO Q8 06/21/16 Reported Combivent Respimat (Ipratropium-Albuterol) 1 Aer Aer 1 Puffs INH QID 02/03/16 Reported Lisinopril 5 Mg Tab 5 Mg PO QAM 04/09/15 Reported Mag-Ox (Magnesium Oxide) 400 Mg Tab 400 Mg PO BID 01/04/15 Reported Vitamin D3 (Cholecalciferol) 1,000 Unit Cap 1,000 Inter.unit PO BID 03/03/13 Reported Physical Physical Exam Vital Signs: Date Time Temp Pulse Resp B/P (MAP) Pulse Ox O2 Delivery O2 Flow Rate FiO2 10/18/17 12:01 BiPAP 10/18/17 07:26 36.2 61 20 112/71 (85) 100 BiPAP 3.0 10/18/17 00:00 100 BiPAP 2.0 10/18/17 00:00 36.4 62 20 140/78 (98) 98 BiPAP 10/17/17 22:00 83 95 3.0 10/17/17 16:01 36.5 63 16 108/72 (84) 100 BiPAP 3.0 10/17/17 16:00 BiPAP General Appearance: NO APPARENT DISTRESS Head: NORMOCEPHALIC, ATRAUMATIC Eyes: PERRLA, NO DISCHARGE, EOMI ENT: NORMAL EAR EXAM, NORMAL NASAL EXAM, NORMAL MOUTH EXAM Neck: NORMAL RANGE OF MOTION, NO TENDERNESS, TRACHEA MIDLINE Respiratory: other (Decreased breath sounds but patient did not perform full inspiration/ultrasound shows no signs of pleural effusion bilaterally) Cardiovasular: REGULAR RATE/RHYTHM, NORMAL S1S2, other (Distant heart sounds unable to auscultate for murmurs rubs or gallops) Abdomen: NON TENDER, NORMAL BOWEL SOUNDS, NO REBOUND, NO MASSES, NO GUARDING Genitourinary - Female: EXTERNAL GENITALIA NORMAL Back: NORMAL INSPECTION, NO MIDLINE TENDERNESS, NO CVA TENDERNESS Upper Extremities: NO EDEMA, NO DEFORMITY, NORMAL ROM Edema: Bilateral LE (2+) Pulses: carotid (R) (1+), carotid (L) (1+), dorsalis pedis (R) (1+), dorsalis pedis (L) (1+) Neuro: ALERT, disoriented Reflexes: biceps (R) (2+), bicpes (L) (2+), patellar (R) (1+), patellar (L) (1+ ) Babinski Testing: right (downgoing), left (downgoing) Psychiatric: other (Pleasant but notably confused) Diagnostics Labs Results Past 24 Hours Test 10/17/17 14:08 10/17/17 14:10 10/17/17 16:49 10/17/17 20:43 Range/Units Urine Color ORANGE Urine Appearance TURBID CLEAR Urine pH 7.0 4.5-7.5 Urine Specific [place] 1.024 1.000-1.030 Urine Protein 2+ NEG Urine Glucose (UA) NEG NEG Urine Ketones 1+ NEG Urine Occult Blood 3+ NEG Urine Nitrite NEG NEG Urine Bilirubin NEG NEG Urine Urobilinogen NEG NEG Urine Leukocyte Esterase LARGE NEG Urine WBC (Auto) >30 0-5 /hpf Urine RBC (Auto) 10-30 0-4 /hpf Urine Hyaline Casts (Auto) 1-5 0-5 /lpf Urine Epithelial Cells (Auto) >30 0-5 /lpf Urine Bacteria (Auto) 1+ NEG Urine Pathogenic Casts 0 /lpf Urine Yeast (Auto) NONE PRSENT Holcomb Level 2.5 0.6-1.2 mMOL/L Bedside Glucose 183 162 70-90 mg/dl Test 10/18/17 06:41 10/18/17 07:49 10/18/17 11:26 Range/Units White Blood Count 6.70 4.8-10.8 K/uL Red Blood Count 4.47 4.2-5.4 M/uL Hemoglobin 12.3 12.0-16.0 g/dL Hematocrit 41.3 37-47 % Mean Corpuscular Volume 92.4 80-100 fL Mean Corpuscular Hemoglobin 27.5 25-34 pg Mean Corpuscular Hemoglobin Concent 29.8 32-36 g/dl RDW Standard Deviation 64.5 36.4-46.3 fL RDW Coefficient of Variation 19.3 11.5-14.5 % Platelet Count 160 130-400 K/uL Mean Platelet Volume 11.7 7.4-10.4 fL Sodium Level 138 136-145 mmol/L Potassium Level 4.2 3.5-5.1 mmol/L Chloride Level 103 98-107 mmol/L Carbon Dioxide Level 35 21-32 mmol/L Anion Gap 0.0 3-11 mmol/L Blood Urea Nitrogen 12 7-18 mg/dl Creatinine 0.93 0.60-1.20 mg/dl Est Creatinine Clear Calc Drug Dose 71.8 ml/min Estimated GFR () 76.3 Estimated GFR (Non- 65.9 BUN/Creatinine Ratio 13.4 10-20 Random Glucose 120 70-99 mg/dl Calcium Level 8.6 8.5-10.1 mg/dl Total Bilirubin 0.7 0.2-1 mg/dl Aspartate Amino Transf (AST/SGOT) 32 15-37 U/L Alanine Aminotransferase (ALT/SGPT) 27 12-78 U/L Alkaline Phosphatase 261 45-117 U/L Total Protein 6.3 6.4-8.2 gm/dl Albumin 2.4 3.4-5.0 gm/dl Globulin 3.9 2.5-4.0 gm/dl Albumin/Globulin Ratio 0.6 0.9-2 Holcomb Level 2.3 0.6-1.2 mMOL/L Bedside Glucose 102 109 70-90 mg/dl Microbiology Results 10/17/17 Urine Culture - Preliminary, Resulted PIN-POINT GROWTH PRESENT, REINCUBATING. Diagnostic Radiology Please refer to HPI EKG Sinus rhythm rate of 68 with no signs of acute ischemia Impression Assessment and Plan 62-year-old female with acute on chronic hypercapnic hypoxic respiratory insufficiency: 1. Hypercapnic respiratory insufficiency: Patient has been unable the past perform PFTs to determine if there is any underlying asthma and/or COPD but the most likely etiology of her chronically elevated CO2/hypercapnia as most likely obesity hypoventilation. Continue the patient on her previous BiPAP settings. 2. Pulmonary Hypertension: Patient most likely has group 2 and group 3 pulmonary hypertension requiring 3 liters nasal cannula oxygen support. There is no notable A-a gradient and previous left heart catheterization on 1999 demonstrates an elevated LVEDP of 18mmHg. This is a difficult diagnosis as patient is very preload dependent as well as afterload sensitive which can lead to hypoxemia as well as renal insufficiency based off the patient's water balance. At this time continuing the BiPAP support and monitoring the patient' s volume status as she appears to be intravascularly euvolemic at this time would be appropriate. Previous vasculitic panel on the patient was negative but this time I would like to repeat a vasculitis workup as well as sent off for connective tissue diseases. It also might be warranted in the future to perform right heart catheterization to help better define the etiology of are patient's elevated/pulmonary hypertension. Patient has had previous imaging studies such as venous Dopplers, CTs and perfusion studies of the lung showing no signs of chronic thromboembolic disease. 3. Morbidity/Mortality: Patient's NYHA classification currently appears to be group III but per the records is often group IV placing her overall high mortality risk in the next 1-2 years. It is reasonable to speak with the family about possible hospice interventions on this patient.
[2017-10-18 15:50] VITALS: BP 105/58; PULSE 68; TEMP 36.8; O2SAT 95
[2017-10-18] MEDS: CEFTRIAXONE SOD INJ 1 GM in DEXTROSE 5% ADD-VANTAGE 50ML 50 ML IV SCH (16:48)
[2017-10-18 22:06] VITALS: PULSE 76; O2SAT 93
--- NOTE | 2017-10-18 22:18 | Family Medicine Progress Note ---
Progress Note Date of Service October 18, 2017. Subjective Pt evaluation today including: conversation w/ patient, physical exam, chart review, lab review, review of studies Pain: Patient lethargic and unable to respond to questions Voiding: no voiding problems, no incontinence Patient opened her eyes this morning during evaluation but would not follow commands and appeared somnolent. Continues to use BiPAP when sleeping. Additional Comments: Unable to obtain ROS Medications Current Inpatient Medications Medications (Trade) Dose Ordered Sig/Nanette Route Start Time Stop Time Status Last Admin Dose Admin Insulin Glargine (Lantus Solostar Pen) 8 units DAILY SC 10/08/17 18:00 11/07/17 17:59 10/18/17 09:00 8 UNITS Albuterol/ Ipratropium (Combivent Respimat Inh) 1 puffs QID INH 10/08/17 21:00 11/07/17 20:59 10/18/17 21:18 1 PUFFS Levetiracetam (Keppra Tab) 750 mg BID PO 10/08/17 21:00 11/07/17 20:59 Future Hold 10/14/17 09:32 750 MG Lisinopril (Zestril Tab) 5 mg QAM PO 10/09/17 09:00 11/08/17 08:59 10/18/17 08:57 5 MG Magnesium Oxide (Mag-Ox Tab) 400 mg BID PO 10/08/17 21:00 11/07/17 20:59 10/18/17 21:19 400 MG Metoprolol Succinate (Toprol Xl Tab) 50 mg DAILY PO 10/09/17 09:00 11/08/17 08:59 10/18/17 08:57 50 MG Nystatin (Mycostatin Powder) 1 appln BID EXT 10/08/17 21:00 11/07/17 20:59 10/18/17 21:19 1 APPLN Potassium Chloride (Klor-Con Tab) 80 meq QPM PO 10/08/17 21:00 11/07/17 20:59 Future Hold 10/08/17 20:53 80 MEQ Potassium Chloride (Klor-Con Tab) 160 meq QAM PO 10/09/17 09:00 11/08/17 08:59 Future Hold 10/10/17 08:29 160 MEQ Polyethylene (Miralax Powder Packet) 17 gm DAILY PRN PO 10/08/17 15:45 11/07/17 15:44 Heparin Sodium (Porcine) (Heparin Sq 5000 Unit/0.5ml) 5,000 unit Q12 SQ 10/08/17 21:00 11/07/17 20:59 10/18/17 21:20 5,000 UNIT Acetaminophen (Tylenol Tab) 650 mg Q4H PRN PO 10/08/17 15:45 11/07/17 15:44 Al Hydrox/Mg Hydrox/Simethicone (Maalox Max Susp) 15 ml Q4H PRN PO 10/08/17 15:45 11/07/17 15:44 Magnesium Hydroxide (Milk Of Magnesia Susp) 30 ml Q12H PRN PO 10/08/17 15:45 11/07/17 15:44 Ondansetron HCl (Zofran Inj) 4 mg Q6H PRN IV 10/08/17 15:45 11/07/17 15:44 Glucose (Glucose 40% Gel) 15-30 GRAMS 15 GRAMS... UD PRN PO 10/08/17 15:45 11/07/17 15:44 10/09/17 06:19 15 GM Glucose (Glucose Chew Tab) 4-8 Tablets 4 Tabl... UD PRN PO 10/08/17 15:45 11/07/17 15:44 Dextrose (Dextrose 50% 50ML Syringe) 25-50ML OF 50% DW IV FOR... UD PRN IV 10/08/17 15:45 11/07/17 15:44 10/09/17 06:47 25 ML Glucagon (Glucagon Inj) 1 mg UD PRN SQ 10/08/17 15:45 11/07/17 15:44 Furosemide 40 mg/ Syringe 4 ml @ 4 mls/min BID IV 10/08/17 21:00 11/07/17 20:59 Future Hold 10/10/17 19:55 4 MLS/MIN Miscellaneous (Iv Fluids Completed) 1 ea PRN PRN N/A 10/08/17 19:30 10/08/18 19:29 Insulin Aspart (novoLOG ASPART) SLIDING SCALE If C... ACHS SC 10/09/17 16:30 11/08/17 16:29 10/18/17 21:20 1 UNITS Welda Carbonate (Lithobid Tab) 300 mg HS PO 10/10/17 21:00 11/09/17 20:59 Future Hold 10/16/17 23:48 300 MG Welda Carbonate (Welda Carbonate Tab) 300 mg QAM PO 10/13/17 09:00 11/12/17 08:59 Future Hold 10/16/17 09:27 300 MG Lactulose (Chronulac Syrup) 40 gm TID PO 10/13/17 20:00 11/07/17 20:59 10/18/17 21:19 40 GM Levetiracetam 750 mg/Dextrose 107.5 ml @ 420 mls/hr Q12 IV 10/15/17 09:00 11/14/17 08:59 10/18/17 21:18 420 MLS/HR Sodium Chloride 1,000 ml @ 100 mls/hr Q10H IV 10/17/17 10:30 11/16/17 10:29 10/18/17 16:48 100 MLS/HR Ceftriaxone Sodium 1 gm/ Dextrose 50 ml @ 100 mls/hr Q24H IV 10/17/17 16:00 10/27/17 15:59 10/18/17 16:48 100 MLS/HR Objective Vital Signs Date Time Temp Pulse Resp B/P (MAP) Pulse Ox O2 Delivery O2 Flow Rate FiO2 10/18/17 22:06 76 93 3.0 10/18/17 15:50 36.8 68 19 105/58 (74) 95 Nasal Cannula 2.0 Humidified Oxygen 10/18/17 12:01 BiPAP 10/18/17 07:26 36.2 61 20 112/71 (85) 100 BiPAP 3.0 10/18/17 00:00 100 BiPAP 2.0 10/18/17 00:00 36.4 62 20 140/78 (98) 98 BiPAP Physical Exam General Appearance: + pertinent finding (Somnolent) Eyes: normal inspection, sclerae normal, + pertinent finding (Ptosis) Neck: supple, trachea midline Respiratory/Chest: chest non-tender, lungs clear, normal breath sounds Cardiovascular: regular rate, rhythm, no edema, no gallop Abdomen: normal bowel sounds, non tender, soft Laboratory Results Results Past 24 Hours Test 10/18/17 06:41 10/18/17 07:49 5/8/18 11:26 10/18/17 16:41 Range/Units White Blood Count 6.70 4.8-10.8 K/uL Red Blood Count 4.47 4.2-5.4 M/uL Hemoglobin 12.3 12.0-16.0 g/dL Hematocrit 41.3 37-47 % Mean Corpuscular Volume 92.4 80-100 fL Mean Corpuscular Hemoglobin 27.5 25-34 pg Mean Corpuscular Hemoglobin Concent 29.8 32-36 g/dl RDW Standard Deviation 64.5 36.4-46.3 fL RDW Coefficient of Variation 19.3 11.5-14.5 % Platelet Count 160 130-400 K/uL Mean Platelet Volume 11.7 7.4-10.4 fL Sodium Level 138 136-145 mmol/L Potassium Level 4.2 3.5-5.1 mmol/L Chloride Level 103 98-107 mmol/L Carbon Dioxide Level 35 21-32 mmol/L Anion Gap 0.0 3-11 mmol/L Blood Urea Nitrogen 12 7-18 mg/dl Creatinine 0.93 0.60-1.20 mg/dl Est Creatinine Clear Calc Drug Dose 71.8 ml/min Estimated GFR () 76.3 Estimated GFR (Non- 65.9 BUN/Creatinine Ratio 13.4 10-20 Random Glucose 120 70-99 mg/dl Calcium Level 8.6 8.5-10.1 mg/dl Total Bilirubin 0.7 0.2-1 mg/dl Aspartate Amino Transf (AST/SGOT) 32 15-37 U/L Alanine Aminotransferase (ALT/SGPT) 27 12-78 U/L Alkaline Phosphatase 261 45-117 U/L Total Protein 6.3 6.4-8.2 gm/dl Albumin 2.4 3.4-5.0 gm/dl Globulin 3.9 2.5-4.0 gm/dl Albumin/Globulin Ratio 0.6 0.9-2 Welda Level 2.3 0.6-1.2 mMOL/L Bedside Glucose 102 109 136 70-90 mg/dl Test 10/18/17 21:01 Range/Units Bedside Glucose 168 70-90 mg/dl Assessment and Plan The patient is a 62 year old female with a past medical history of schizoaffective disorder, severe KORI, and a recent history of AMS that presented to the ED with somnolence secondary to excessive Haldol intake Acute metabolic encephalopathy - Initially 2/2 Oversedation from Haldol dose - now on hold - Hypercapnic Respiratory Acidosis - Welda level still high 2.3 (upper limit is 1.2) - MRI Brain: No acute abnormalities - Hx of hyperammonemia - On lactulose Hypercapnic Respiratory Acidosis sec to OHS - pCO2 improved to 61 (74 on admission), pH 7.37. HCO3 35 - Patient on BiPAP while asleep Welda Toxicity - Holding lithium --> Continue to trend levels - EKG: NSR with PACs and Left Fascicular Block - IVF - Discussed with nephrology - no indication for dialysis at this point. No clear etiology for the levels going up. No obvious sign of volume contraction. - Limited effective fluid balance range considering biventricular HF and severe right heart dysfunction and the need to keep lithium level in range. - Consulted Pulmonology for input on prognosis and considering palliative care - input appreciated. 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 - Follow closely while getting hydrated. - Evaluated by Pulmonology for right sided heart failure - Can consider right sided hear catheterization - May also consider vasculitis panel Schizoaffective Disorder - Holding Welda due to Welda level toxicity - Stopped Haldol due to Somnolence Seizure disorder - Continue Keppra 750mg IV BID - changed to IV due to poor PO intake Type 2 DM - Lantus and ISS DVT - Heparin Dispo - Referral made to [facility] Resuscitation Status - DNR Resident Tracking Resident Involvement: Resident Care Provided Care Provided: Adult Hospital Medicine Reviewed: Pt Seen/Exam by Me History continues to be on bipap. arousable this morning though later put on nasal cannula Constitutional: denies: fever Cardiovascular: denies chest pain General Appearance: other (on bipap earlier - comfortable) Respiratory: decreased breath sounds, other (on bipap) Cardiovascular: regular rate, rhythm Gastrointestinal: soft 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: other (arousable) Skin Characteristics: warm/dry Assessment/Plan Resident Physician Supervision Note: I independently interviewed and examined the patient and verified the lopez history and physical, reviewed labs and image studies, discussed the case with the resident Dr. Dloomy and agree with the findings and care plan Discussed with about poor prognosis and to consider palliative care consult. Will follow.
[2017-10-18 23:14] VITALS: BP 113/71; PULSE 76; TEMP 36.7; O2SAT 95
[2017-10-19] MEDS: SODIUM CHLORIDE 0.9% 1000ML 1,000 ML IV SCH ×3 (02:02→23:25)
[2017-10-19 06:43] VITALS: BP 121/79; PULSE 69; TEMP 36.3; O2SAT 99
--- NOTE | 2017-10-19 07:57 | Pulmonology Progress Note ---
Pulmonary Progress Note Date of Service October 19, 2017. Attending Dr. Wiggins Subjective Patient on BiPAP when I walked in this morning sleeping comfortably easily arousable and had no acute complaints: Objective Patient on BiPAP comfortable showing no signs of accessory respiratory muscle use/respiratory insufficiency: Vital signs: Stable on BiPAP and supplemental oxygen Respiratory: Mildly decreased breath sounds at the bases but patient had poor inspiratory effort Cardiac: S1-S2 regular rate and rhythm Abdomen: Mildly distended but positive bowel sounds soft nontender no hepatosplenomegaly Extremities: 1 to 2+ pitting edema in the dependent regions Assessment & Plan 62-year-old female with acute on chronic hypercapnic hypoxic respiratory insufficiency: 1. Hypercapnic Respiratory Insufficiency: Patient has chronically elevated hypercapnia possibly from undiagnosed obstructive ventilatory disease but most likely chronic obesity hypoventilation syndrome with associated cognitive impairment secondary to chronic psychiatric medication. Patient to continue on BiPAP support. 2. Pulmonary Hypertension: This patient most likely has group to group 3 pulmonary hypertension requiring oxygen support at 3 L nasal cannula. I am still waiting for the previous tracing from a left heart catheterization. This makes the patient very fluid dependent either pre-lowered and/or afterload. With her underlying psychiatric disorder maintaining proper fluid balance is very difficult which will chronically to hypoxic respiratory events. 3. Morbidity/Mortality: Patient's NYHA classification currently appears to be group III but per the records is often group IV placing her overall high mortality risk in the next 1-2 years. It is reasonable to speak with the family about possible hospice interventions on this patient. Data Medications: Current Inpatient Medications Medications (Trade) Dose Ordered Sig/Nanette Route Start Time Stop Time Status Last Admin Dose Admin Insulin Glargine (Lantus Solostar Pen) 8 units DAILY SC 10/08/17 18:00 11/07/17 17:59 10/18/17 09:00 8 UNITS Albuterol/ Ipratropium (Combivent Respimat Inh) 1 puffs QID INH 10/08/17 21:00 11/07/17 20:59 10/18/17 21:18 1 PUFFS Levetiracetam (Keppra Tab) 750 mg BID PO 10/08/17 21:00 11/07/17 20:59 Future Hold 10/14/17 09:32 750 MG Lisinopril (Zestril Tab) 5 mg QAM PO 10/09/17 09:00 11/08/17 08:59 10/18/17 08:57 5 MG Magnesium Oxide (Mag-Ox Tab) 400 mg BID PO 10/08/17 21:00 11/07/17 20:59 10/18/17 21:19 400 MG Metoprolol Succinate (Toprol Xl Tab) 50 mg DAILY PO 10/09/17 09:00 11/08/17 08:59 10/18/17 08:57 50 MG Nystatin (Mycostatin Powder) 1 appln BID EXT 10/08/17 21:00 11/07/17 20:59 10/18/17 21:19 1 APPLN Potassium Chloride (Klor-Con Tab) 80 meq QPM PO 10/08/17 21:00 11/07/17 20:59 Future Hold 10/08/17 20:53 80 MEQ Potassium Chloride (Klor-Con Tab) 160 meq QAM PO 10/09/17 09:00 11/08/17 08:59 Future Hold 10/10/17 08:29 160 MEQ Polyethylene (Miralax Powder Packet) 17 gm DAILY PRN PO 10/08/17 15:45 11/07/17 15:44 Heparin Sodium (Porcine) (Heparin Sq 5000 Unit/0.5ml) 5,000 unit Q12 SQ 10/08/17 21:00 11/07/17 20:59 10/18/17 21:20 5,000 UNIT Acetaminophen (Tylenol Tab) 650 mg Q4H PRN PO 10/08/17 15:45 11/07/17 15:44 Al Hydrox/Mg Hydrox/Simethicone (Maalox Max Susp) 15 ml Q4H PRN PO 10/08/17 15:45 11/07/17 15:44 Magnesium Hydroxide (Milk Of Magnesia Susp) 30 ml Q12H PRN PO 10/08/17 15:45 11/07/17 15:44 Ondansetron HCl (Zofran Inj) 4 mg Q6H PRN IV 10/08/17 15:45 11/07/17 15:44 Glucose (Glucose 40% Gel) 15-30 GRAMS 15 GRAMS... UD PRN PO 10/08/17 15:45 11/07/17 15:44 10/09/17 06:19 15 GM Glucose (Glucose Chew Tab) 4-8 Tablets 4 Tabl... UD PRN PO 10/08/17 15:45 11/07/17 15:44 Dextrose (Dextrose 50% 50ML Syringe) 25-50ML OF 50% DW IV FOR... UD PRN IV 10/08/17 15:45 11/07/17 15:44 10/09/17 06:47 25 ML Glucagon (Glucagon Inj) 1 mg UD PRN SQ 10/08/17 15:45 11/07/17 15:44 Furosemide 40 mg/ Syringe 4 ml @ 4 mls/min BID IV 10/08/17 21:00 11/07/17 20:59 Future Hold 10/10/17 19:55 4 MLS/MIN Miscellaneous (Iv Fluids Completed) 1 ea PRN PRN N/A 10/08/17 19:30 10/08/18 19:29 Insulin Aspart (novoLOG ASPART) SLIDING SCALE If C... ACHS SC 10/09/17 16:30 11/08/17 16:29 10/18/17 21:20 1 UNITS Eitzen Carbonate (Lithobid Tab) 300 mg HS PO 10/10/17 21:00 11/09/17 20:59 Future Hold 10/16/17 23:48 300 MG Eitzen Carbonate (Eitzen Carbonate Tab) 300 mg QAM PO 10/13/17 09:00 11/12/17 08:59 Future Hold 10/16/17 09:27 300 MG Lactulose (Chronulac Syrup) 40 gm TID PO 10/13/17 20:00 11/07/17 20:59 10/18/17 21:19 40 GM Levetiracetam 750 mg/Dextrose 107.5 ml @ 420 mls/hr Q12 IV 10/15/17 09:00 11/14/17 08:59 10/18/17 21:18 420 MLS/HR Sodium Chloride 1,000 ml @ 100 mls/hr Q10H IV 10/17/17 10:30 11/16/17 10:29 10/19/17 02:02 100 MLS/HR Ceftriaxone Sodium 1 gm/ Dextrose 50 ml @ 100 mls/hr Q24H IV 10/17/17 16:00 10/27/17 15:59 10/18/17 16:48 100 MLS/HR Vital Signs: Date Time Temp Pulse Resp B/P (MAP) Pulse Ox O2 Delivery O2 Flow Rate FiO2 10/19/17 06:43 36.3 69 19 121/79 (93) 99 BiPAP 10/19/17 00:50 BiPAP 10/18/17 23:14 36.7 76 20 113/71 (85) 95 BiPAP 10/18/17 22:06 76 93 3.0 10/18/17 16:00 BiPAP 10/18/17 15:50 36.8 68 19 105/58 (74) 95 Nasal Cannula 2.0 Humidified Oxygen 10/18/17 12:01 BiPAP Laboratory Results: Last 24 Hours Test 10/18/17 11:26 10/18/17 16:41 10/18/17 21:01 10/19/17 04:44 Bedside Glucose 109 mg/dl 136 mg/dl 168 mg/dl Test 10/19/17 07:24
[2017-10-19] MEDS: IPRATROPIUM BROMIDE/ALBUTEROL respimat INH INH SCH ×4 (09:13→21:17)
[2017-10-19] MEDS: NYSTATIN POWDER 15GM BTL EXT SCH ×2 (09:13→21:25)
[2017-10-19] MEDS: LISINOPRIL 5 MG TAB PO SCH (09:14)
[2017-10-19] MEDS: LACTULOSE SYRUP 10 GM/15 ML BTL 473 ML PO SCH ×3 (09:14→20:00)
[2017-10-19] MEDS: MAGNESIUM OXIDE 400 MG TAB PO SCH ×2 (09:14→21:18)
[2017-10-19] MEDS: METOPROLOL SUCC 50MG EXT REL TAB PO SCH (09:14)
[2017-10-19] MEDS: LEVETIRACETAM IV 750 MG in DEXTROSE 5% 100ML 100 ML IV SCH ×2 (09:15→21:17)
[2017-10-19] MEDS: INSULIN ASPART 100 UNITS/ML 3 ML PEN SC SCH ×4 (09:19→21:00)
[2017-10-19] MEDS: HEPARIN SOD 5000 UNIT/0.5 ML CARP SQ SCH ×2 (09:20→21:25)
[2017-10-19] MEDS: INSULIN GLARGINE SOLOSTAR 100 UNITS/ML 3 ML PEN SC SCH (09:20)
[2017-10-19 15:03] VITALS: BP 111/75; PULSE 67; TEMP 36.4; O2SAT 96
--- NOTE | 2017-10-19 15:41 | Family Medicine Progress Note ---
Progress Note Date of Service October 19, 2017. Subjective Pt evaluation today including: conversation w/ patient, conversation w/ family , physical exam, chart review, lab review, review of studies Pain: Denies any pain this morning Voiding: no voiding problems, no incontinence Patient resting comfortably in bed this morning with no acute complaints. Patient appears significantly more alert today and responds to questions although with semi-coherent responses. Patient appeared oriented to place this morning and was trying to speak but appears confused. This is a significant improvement from her lethargic appearance yesterday. Constitutional: No fever, No chills, No sweats, No fatigue Respiratory: No cough, No shortness of breath Cardiovascular: No chest pain, No palpitations Abdomen: No pain, No nausea, No vomiting, No diarrhea, No constipation Female : No dysuria Medications Current Inpatient Medications Medications (Trade) Dose Ordered Sig/Nanette Route Start Time Stop Time Status Last Admin Dose Admin Insulin Glargine (Lantus Solostar Pen) 8 units DAILY SC 10/08/17 18:00 11/07/17 17:59 10/19/17 09:20 8 UNITS Albuterol/ Ipratropium (Combivent Respimat Inh) 1 puffs QID INH 10/08/17 21:00 11/07/17 20:59 10/19/17 12:24 1 PUFFS Levetiracetam (Keppra Tab) 750 mg BID PO 10/08/17 21:00 11/07/17 20:59 Future Hold 10/14/17 09:32 750 MG Lisinopril (Zestril Tab) 5 mg QAM PO 10/09/17 09:00 11/08/17 08:59 10/19/17 09:14 5 MG Magnesium Oxide (Mag-Ox Tab) 400 mg BID PO 10/08/17 21:00 11/07/17 20:59 10/19/17 09:14 400 MG Metoprolol Succinate (Toprol Xl Tab) 50 mg DAILY PO 10/09/17 09:00 11/08/17 08:59 10/19/17 09:14 50 MG Nystatin (Mycostatin Powder) 1 appln BID EXT 10/08/17 21:00 11/07/17 20:59 10/19/17 09:13 1 APPLN Potassium Chloride (Klor-Con Tab) 80 meq QPM PO 10/08/17 21:00 11/07/17 20:59 Future Hold 10/08/17 20:53 80 MEQ Potassium Chloride (Klor-Con Tab) 160 meq QAM PO 10/09/17 09:00 11/08/17 08:59 Future Hold 10/10/17 08:29 160 MEQ Polyethylene (Miralax Powder Packet) 17 gm DAILY PRN PO 10/08/17 15:45 11/07/17 15:44 Heparin Sodium (Porcine) (Heparin Sq 5000 Unit/0.5ml) 5,000 unit Q12 SQ 10/08/17 21:00 11/07/17 20:59 10/19/17 09:20 5,000 UNIT Acetaminophen (Tylenol Tab) 650 mg Q4H PRN PO 10/08/17 15:45 11/07/17 15:44 Al Hydrox/Mg Hydrox/Simethicone (Maalox Max Susp) 15 ml Q4H PRN PO 10/08/17 15:45 11/07/17 15:44 Magnesium Hydroxide (Milk Of Magnesia Susp) 30 ml Q12H PRN PO 10/08/17 15:45 11/07/17 15:44 Ondansetron HCl (Zofran Inj) 4 mg Q6H PRN IV 10/08/17 15:45 11/07/17 15:44 Glucose (Glucose 40% Gel) 15-30 GRAMS 15 GRAMS... UD PRN PO 10/08/17 15:45 11/07/17 15:44 10/09/17 06:19 15 GM Glucose (Glucose Chew Tab) 4-8 Tablets 4 Tabl... UD PRN PO 10/08/17 15:45 11/07/17 15:44 Dextrose (Dextrose 50% 50ML Syringe) 25-50ML OF 50% DW IV FOR... UD PRN IV 10/08/17 15:45 11/07/17 15:44 10/09/17 06:47 25 ML Glucagon (Glucagon Inj) 1 mg UD PRN SQ 10/08/17 15:45 11/07/17 15:44 Furosemide 40 mg/ Syringe 4 ml @ 4 mls/min BID IV 10/08/17 21:00 11/07/17 20:59 Future Hold 10/10/17 19:55 4 MLS/MIN Miscellaneous (Iv Fluids Completed) 1 ea PRN PRN N/A 10/08/17 19:30 10/08/18 19:29 Insulin Aspart (novoLOG ASPART) SLIDING SCALE If C... ACHS SC 10/09/17 16:30 11/08/17 16:29 10/19/17 09:19 2 UNITS Sperry Carbonate (Lithobid Tab) 300 mg HS PO 10/10/17 21:00 11/09/17 20:59 Future Hold 10/16/17 23:48 300 MG Sperry Carbonate (Sperry Carbonate Tab) 300 mg QAM PO 10/13/17 09:00 11/12/17 08:59 Future Hold 10/16/17 09:27 300 MG Lactulose (Chronulac Syrup) 40 gm TID PO 10/13/17 20:00 11/07/17 20:59 10/19/17 12:25 40 GM Levetiracetam 750 mg/Dextrose 107.5 ml @ 420 mls/hr Q12 IV 10/15/17 09:00 11/14/17 08:59 10/19/17 09:15 420 MLS/HR Sodium Chloride 1,000 ml @ 100 mls/hr Q10H IV 10/17/17 10:30 11/16/17 10:29 10/19/17 12:25 100 MLS/HR Ceftriaxone Sodium 1 gm/ Dextrose 50 ml @ 100 mls/hr Q24H IV 10/17/17 16:00 10/27/17 15:59 10/18/17 16:48 100 MLS/HR Objective Vital Signs Date Time Temp Pulse Resp B/P (MAP) Pulse Ox O2 Delivery O2 Flow Rate FiO2 10/19/17 11:16 Nasal Cannula 2.0 10/19/17 06:43 36.3 69 19 121/79 (93) 99 BiPAP 10/19/17 00:50 BiPAP 10/18/17 23:14 36.7 76 20 113/71 (85) 95 BiPAP 10/18/17 22:06 76 93 3.0 10/18/17 16:00 BiPAP 10/18/17 15:50 36.8 68 19 105/58 (74) 95 Nasal Cannula 2.0 Humidified Oxygen Physical Exam General Appearance: WD/WN, no apparent distress Eyes: normal inspection, sclerae normal Neck: supple, no carotid bruits Respiratory/Chest: chest non-tender, lungs clear, normal breath sounds Cardiovascular: regular rate, rhythm, no edema, no gallop Abdomen: non tender, soft Extremities: normal inspection, no calf tenderness 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: alert, + disoriented, + pertinent finding (confused) Laboratory Results Results Past 24 Hours Test 10/18/17 16:41 10/18/17 21:01 10/19/17 04:44 10/19/17 07:24 Range/Units Bedside Glucose 136 168 70-90 mg/dl Test 10/19/17 08:03 10/19/17 11:57 Range/Units Bedside Glucose 92 154 70-90 mg/dl Assessment and Plan The patient is a 62 year old female with a past medical history of schizoaffective disorder, severe KORI, and a recent history of AMS that presented to the ED with somnolence secondary to excessive Haldol intake. The patient mental status appears significantly improved from yesterday. Acute metabolic encephalopathy - Initially 2/2 Oversedation from Haldol dose - now on hold - Hypercapnic Respiratory Acidosis - Sperry level high - level not drawn today due to patient refusal. Yesterday level - 2.3 - MRI Brain: No acute abnormalities - Hx of hyperammonemia - On lactulose Hypercapnic Respiratory Acidosis sec to OHS - pCO2 improved to 61 (74 on admission), pH 7.37. HCO3 35 - Patient on BiPAP while asleep Sperry Toxicity - Holding lithium --> Continue to trend levels - kept refusing lab draw today - EKG: NSR with PACs and Left Fascicular Block - IVF - Per discussion with nephrology - no indication for dialysis at this point. No clear etiology for the levels going up. No obvious sign of volume contraction. - Limited effective fluid balance range considering biventricular HF and severe right heart dysfunction while the need to keep lithium level in range. - Consulted Pulmonology for input on prognosis and considering palliative care - input appreciated. - Patient has responded best only to lithium Abnormal UA - Urine culture --> more than 3 organism. - d/c rocephin. 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 - Follow closely while getting hydrated. - Evaluated by Pulmonology for right sided heart failure - Considering morbidity and poor prognosis- palliative care consulted. Schizoaffective Disorder - Holding Sperry due to Sperry level toxicity - Stopped Haldol due to Somnolence Seizure disorder - Continue Keppra 750mg IV BID - changed to IV due to poor PO intake Type 2 DM - Lantus and ISS DVT - Heparin Dispo - Referral made to [facility] Resuscitation Status - DNR Resident Tracking Resident Involvement: Resident Care Provided Care Provided: [facility] Reviewed: Pt Seen/Exam by Me History off bipap since yesterday afternoon more responsive this am but unable to respond appropriately. stops midway in sentence and then unable to finish Constitutional: denies: fever General Appearance: no apparent distress Respiratory: no respiratory distress, decreased breath sounds (base) Cardiovascular: regular rate, rhythm 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: other (somnolent - easily arousable) Skin Characteristics: warm/dry Assessment/Plan Resident Physician Supervision Note: I independently interviewed and examined the patient and verified the lopez history and physical, reviewed labs and image studies, discussed the case with the resident Dr. Aburto and agree with the findings and care plan
[2017-10-19] MEDS: CEFTRIAXONE SOD INJ 1 GM in DEXTROSE 5% ADD-VANTAGE 50ML 50 ML IV SCH (16:14)
[2017-10-19 19:29] VITALS: PULSE 72; O2SAT 95
[2017-10-19 23:20] VITALS: BP 108/60; PULSE 64; TEMP 36.6; O2SAT 96
[2017-10-19 23:50] VITALS: PULSE 76; O2SAT 96
[2017-10-20 08:16] VITALS: BP 102/50; PULSE 71; TEMP 37; O2SAT 100
[2017-10-20 08:32] LABS: ALBUMIN 2.5 gm/dl (3.4-5.0); CALCIUM 8.8 mg/dl (8.5-10.1); CREATININE 0.84 mg/dl (0.60-1.20); POTASSIUM 3.7 mmol/L (3.5-5.1)
[2017-10-20 08:34] LABS: TOTAL PROTEIN 6.6 gm/dl (6.4-8.2)
[2017-10-20 08:46] LABS: HEMATOCRIT 42.2 % (37-47); HEMOGLOBIN 12.3 g/dL (12.0-16.0); MEAN CELL VOLUME 91.9 fL (80-100); MEAN CORPUSCULAR HEMOGLOBIN 26.8 pg (25-34); MEAN CORPUSCULAR HGB CONC 29.1 g/dl (32-36); PLATELET COUNT 109 K/uL (130-400); RED CELL DISTRIBUTION WIDTH CV 19.6 % (11.5-14.5); RED CELL DISTRIBUTION WIDTH SD 65.5 fL (36.4-46.3); WHITE BLOOD COUNT 8.83 K/uL (4.8-10.8)
[2017-10-20] MEDS: MAGNESIUM OXIDE 400 MG TAB PO SCH ×2 (09:15→21:37)
[2017-10-20] MEDS: SODIUM CHLORIDE 0.9% 1000ML 1,000 ML IV SCH (09:15)
[2017-10-20] MEDS: LISINOPRIL 5 MG TAB PO SCH (09:15)
[2017-10-20] MEDS: LEVETIRACETAM IV 750 MG in DEXTROSE 5% 100ML 100 ML IV SCH ×2 (09:15→21:37)
[2017-10-20] MEDS: METOPROLOL SUCC 50MG EXT REL TAB PO SCH (09:15)
[2017-10-20] MEDS: IPRATROPIUM BROMIDE/ALBUTEROL respimat INH INH SCH ×4 (09:16→21:36)
[2017-10-20] MEDS: NYSTATIN POWDER 15GM BTL EXT SCH ×2 (09:16→21:37)
[2017-10-20] MEDS: LACTULOSE SYRUP 10 GM/15 ML BTL 473 ML PO SCH ×3 (09:16→21:36)
[2017-10-20] MEDS: HEPARIN SOD 5000 UNIT/0.5 ML CARP SQ SCH ×2 (09:23→21:47)
[2017-10-20] MEDS: ACETAMINOPHEN 325 MG TAB PO PRN (09:24)
[2017-10-20] MEDS: INSULIN GLARGINE SOLOSTAR 100 UNITS/ML 3 ML PEN SC SCH (09:24)
[2017-10-20] MEDS: INSULIN ASPART 100 UNITS/ML 3 ML PEN SC SCH ×4 (09:25→21:00)
--- NOTE | 2017-10-20 11:50 | Pulmonology Progress Note ---
Pulmonary Progress Note Date of Service October 20, 2017. Attending Dr. Wiggins Subjective Patient is fatigue but arousable by voice this morning but continues to have difficulty with orientation to place: Objective Patient was comfortable on BiPAP when I walked in this morning and her asleep. She was arousable to my voice but continued to have difficulty with orientation to place and time: Vital signs: Stable on BiPAP and supplemental oxygen Respiratory: Mildly decreased breath sounds at the bases but patient had poor inspiratory effort Cardiac: S1-S2 regular rate and rhythm Abdomen: Mildly distended but positive bowel sounds soft nontender no hepatosplenomegaly Extremities: 1 to 2+ pitting edema in the dependent regions Assessment & Plan 62-year-old female with acute on chronic hypercapnic hypoxic respiratory insufficiency: 1. Hypercapnic Respiratory Insufficiency: Patient has chronically elevated hypercapnia possibly from undiagnosed obstructive ventilatory disease but most likely chronic obesity hypoventilation syndrome with associated cognitive impairment secondary to chronic psychiatric medication. Patient to continue on BiPAP support. 2. Pulmonary Hypertension: This patient most likely has group to group 3 pulmonary hypertension requiring oxygen support at 3 L nasal cannula. I am still waiting for the previous tracing from a left heart catheterization. This makes the patient very fluid dependent either pre-lowered and/or afterload. With her underlying psychiatric disorder maintaining proper fluid balance is very difficult which will chronically to hypoxic respiratory events. 3. Morbidity/Mortality: Patient's NYHA classification currently appears to be group III but per the records is often group IV placing her overall high mortality risk in the next 1-2 years. It is reasonable to speak with the family about possible hospice interventions on this patient. Sign off: At this time I think the patient is maximized on her current therapy. I do believe a hospice consultation is appropriate. Please contact the pulmonary team if the clinical situation worsens. Data Medications: Current Inpatient Medications Medications (Trade) Dose Ordered Sig/Nanette Route Start Time Stop Time Status Last Admin Dose Admin Insulin Glargine (Lantus Solostar Pen) 8 units DAILY SC 10/08/17 18:00 11/07/17 17:59 10/20/17 09:24 8 UNITS Albuterol/ Ipratropium (Combivent Respimat Inh) 1 puffs QID INH 10/08/17 21:00 11/07/17 20:59 10/20/17 09:16 1 PUFFS Levetiracetam (Keppra Tab) 750 mg BID PO 10/08/17 21:00 11/07/17 20:59 Future Hold 10/14/17 09:32 750 MG Lisinopril (Zestril Tab) 5 mg QAM PO 10/09/17 09:00 11/08/17 08:59 10/20/17 09:15 5 MG Magnesium Oxide (Mag-Ox Tab) 400 mg BID PO 10/08/17 21:00 11/07/17 20:59 10/20/17 09:15 400 MG Metoprolol Succinate (Toprol Xl Tab) 50 mg DAILY PO 10/09/17 09:00 11/08/17 08:59 10/20/17 09:15 50 MG Nystatin (Mycostatin Powder) 1 appln BID EXT 10/08/17 21:00 11/07/17 20:59 10/20/17 09:16 1 APPLN Potassium Chloride (Klor-Con Tab) 80 meq QPM PO 10/08/17 21:00 11/07/17 20:59 Future Hold 10/08/17 20:53 80 MEQ Potassium Chloride (Klor-Con Tab) 160 meq QAM PO 10/09/17 09:00 11/08/17 08:59 Future Hold 10/10/17 08:29 160 MEQ Polyethylene (Miralax Powder Packet) 17 gm DAILY PRN PO 10/08/17 15:45 11/07/17 15:44 Heparin Sodium (Porcine) (Heparin Sq 5000 Unit/0.5ml) 5,000 unit Q12 SQ 10/08/17 21:00 11/07/17 20:59 10/20/17 09:23 5,000 UNIT Acetaminophen (Tylenol Tab) 650 mg Q4H PRN PO 10/08/17 15:45 11/07/17 15:44 10/20/17 09:24 650 MG Al Hydrox/Mg Hydrox/Simethicone (Maalox Max Susp) 15 ml Q4H PRN PO 10/08/17 15:45 11/07/17 15:44 Magnesium Hydroxide (Milk Of Magnesia Susp) 30 ml Q12H PRN PO 10/08/17 15:45 11/07/17 15:44 Ondansetron HCl (Zofran Inj) 4 mg Q6H PRN IV 10/08/17 15:45 11/07/17 15:44 Glucose (Glucose 40% Gel) 15-30 GRAMS 15 GRAMS... UD PRN PO 10/08/17 15:45 11/07/17 15:44 10/09/17 06:19 15 GM Glucose (Glucose Chew Tab) 4-8 Tablets 4 Tabl... UD PRN PO 10/08/17 15:45 11/07/17 15:44 Dextrose (Dextrose 50% 50ML Syringe) 25-50ML OF 50% DW IV FOR... UD PRN IV 10/08/17 15:45 11/07/17 15:44 10/09/17 06:47 25 ML Glucagon (Glucagon Inj) 1 mg UD PRN SQ 10/08/17 15:45 11/07/17 15:44 Furosemide 40 mg/ Syringe 4 ml @ 4 mls/min BID IV 10/08/17 21:00 11/07/17 20:59 Future Hold 10/10/17 19:55 4 MLS/MIN Miscellaneous (Iv Fluids Completed) 1 ea PRN PRN N/A 10/08/17 19:30 10/08/18 19:29 Insulin Aspart (novoLOG ASPART) SLIDING SCALE If C... ACHS SC 10/09/17 16:30 11/08/17 16:29 10/20/17 09:25 3 UNITS Bastian Carbonate (Lithobid Tab) 300 mg HS PO 10/10/17 21:00 11/09/17 20:59 Future Hold 10/16/17 23:48 300 MG Bastian Carbonate (Bastian Carbonate Tab) 300 mg QAM PO 10/13/17 09:00 11/12/17 08:59 Future Hold 10/16/17 09:27 300 MG Lactulose (Chronulac Syrup) 40 gm TID PO 10/13/17 20:00 11/07/17 20:59 10/20/17 09:16 40 GM Levetiracetam 750 mg/Dextrose 107.5 ml @ 420 mls/hr Q12 IV 10/15/17 09:00 11/14/17 08:59 10/20/17 09:15 420 MLS/HR Sodium Chloride 1,000 ml @ 100 mls/hr Q10H IV 10/17/17 10:30 11/16/17 10:29 10/20/17 09:15 100 MLS/HR Vital Signs: Date Time Temp Pulse Resp B/P (MAP) Pulse Ox O2 Delivery O2 Flow Rate FiO2 10/20/17 08:16 37.0 71 18 102/50 (67) 100 Nasal Cannula 2.0 10/20/17 00:00 BiPAP 10/19/17 23:50 76 96 3.0 10/19/17 23:20 36.6 64 16 108/60 (76) 96 BiPAP 3.0 10/19/17 19:29 72 95 3.0 10/19/17 16:00 BiPAP 10/19/17 15:03 36.4 67 20 111/75 (87) 96 Room Air Laboratory Results: Last 24 Hours Test 10/19/17 11:57 10/19/17 16:35 10/19/17 20:07 10/20/17 07:32 Bedside Glucose 154 mg/dl 194 mg/dl 131 mg/dl White Blood Count 8.83 K/uL Red Blood Count 4.59 M/uL Hemoglobin 12.3 g/dL Hematocrit 42.2 % Mean Corpuscular Volume 91.9 fL Mean Corpuscular Hemoglobin 26.8 pg Mean Corpuscular Hemoglobin Concent 29.1 g/dl RDW Standard Deviation 65.5 fL RDW Coefficient of Variation 19.6 % Platelet Count 109 K/uL Platelet Estimate DECREASED Sodium Level 141 mmol/L Potassium Level 3.7 mmol/L Chloride Level 106 mmol/L Carbon Dioxide Level 32 mmol/L Anion Gap 2.0 mmol/L Blood Urea Nitrogen 6 mg/dl Creatinine 0.84 mg/dl Est Creatinine Clear Calc Drug Dose 81.4 ml/min Estimated GFR () 86.3 Estimated GFR (Non- 74.5 BUN/Creatinine Ratio 7.6 Random Glucose 125 mg/dl Calcium Level 8.8 mg/dl Total Bilirubin 0.7 mg/dl Aspartate Amino Transf (AST/SGOT) 30 U/L Alanine Aminotransferase (ALT/SGPT) 25 U/L Alkaline Phosphatase 266 U/L Total Protein 6.6 gm/dl Albumin 2.5 gm/dl Globulin 4.1 gm/dl Albumin/Globulin Ratio 0.6 Bastian Level 1.8 mMOL/L Test 10/20/17 07:45 Bedside Glucose 115 mg/dl
--- NOTE | 2017-10-20 15:42 | Palliative Care Progress Note ---
Palliative Care Progress Note Date of Service October 20, 2017. Subjective Pt evaluation today including: chart review, lab review, review of inpatient medication list Asked to see patient by Dr. Dalal to discuss goals of care. No family present in patient's room this afternoon, attempted to reach on home phone and cell phone, was able to leave a message on his cell phone. We will plan to meet with when he is available to determine goals of care and discuss options when patient returns home. Assessment and Plan Continued [facility] stay due to: ambulation difficulties Discharge planning: uncertain
--- NOTE | 2017-10-20 16:32 | Family Medicine Progress Note ---
Progress Note Date of Service October 20, 2017. Subjective Pt evaluation today including: conversation w/ patient, physical exam, chart review, lab review, review of studies Pain: Denies any acute pain Voiding: no voiding problems, no incontinence Patient is resting comfortably in bed this morning and appears mildly more lethargic than yesterday. She continues to open her eyes to verbal stimulation and responds when asked questions with "yes" and "no" and answers. Additional Comments: Unable to obtain review of systems due to patient lethargy Medications Current Inpatient Medications Medications (Trade) Dose Ordered Sig/Nanette Route Start Time Stop Time Status Last Admin Dose Admin Insulin Glargine (Lantus Solostar Pen) 8 units DAILY SC 10/08/17 18:00 11/07/17 17:59 10/20/17 09:24 8 UNITS Albuterol/ Ipratropium (Combivent Respimat Inh) 1 puffs QID INH 10/08/17 21:00 11/07/17 20:59 10/20/17 12:37 1 PUFFS Levetiracetam (Keppra Tab) 750 mg BID PO 10/08/17 21:00 11/07/17 20:59 Future Hold 10/14/17 09:32 750 MG Lisinopril (Zestril Tab) 5 mg QAM PO 10/09/17 09:00 11/08/17 08:59 10/20/17 09:15 5 MG Magnesium Oxide (Mag-Ox Tab) 400 mg BID PO 10/08/17 21:00 11/07/17 20:59 10/20/17 09:15 400 MG Metoprolol Succinate (Toprol Xl Tab) 50 mg DAILY PO 10/09/17 09:00 11/08/17 08:59 10/20/17 09:15 50 MG Nystatin (Mycostatin Powder) 1 appln BID EXT 10/08/17 21:00 11/07/17 20:59 10/20/17 09:16 1 APPLN Potassium Chloride (Klor-Con Tab) 80 meq QPM PO 10/08/17 21:00 11/07/17 20:59 Future Hold 10/08/17 20:53 80 MEQ Potassium Chloride (Klor-Con Tab) 160 meq QAM PO 10/09/17 09:00 11/08/17 08:59 Future Hold 10/10/17 08:29 160 MEQ Polyethylene (Miralax Powder Packet) 17 gm DAILY PRN PO 10/08/17 15:45 11/07/17 15:44 Heparin Sodium (Porcine) (Heparin Sq 5000 Unit/0.5ml) 5,000 unit Q12 SQ 10/08/17 21:00 11/07/17 20:59 10/20/17 09:23 5,000 UNIT Acetaminophen (Tylenol Tab) 650 mg Q4H PRN PO 10/08/17 15:45 11/07/17 15:44 10/20/17 09:24 650 MG Al Hydrox/Mg Hydrox/Simethicone (Maalox Max Susp) 15 ml Q4H PRN PO 10/08/17 15:45 11/07/17 15:44 Magnesium Hydroxide (Milk Of Magnesia Susp) 30 ml Q12H PRN PO 10/08/17 15:45 11/07/17 15:44 Ondansetron HCl (Zofran Inj) 4 mg Q6H PRN IV 10/08/17 15:45 11/07/17 15:44 Glucose (Glucose 40% Gel) 15-30 GRAMS 15 GRAMS... UD PRN PO 10/08/17 15:45 11/07/17 15:44 10/09/17 06:19 15 GM Glucose (Glucose Chew Tab) 4-8 Tablets 4 Tabl... UD PRN PO 10/08/17 15:45 11/07/17 15:44 Dextrose (Dextrose 50% 50ML Syringe) 25-50ML OF 50% DW IV FOR... UD PRN IV 10/08/17 15:45 11/07/17 15:44 10/09/17 06:47 25 ML Glucagon (Glucagon Inj) 1 mg UD PRN SQ 10/08/17 15:45 11/07/17 15:44 Furosemide 40 mg/ Syringe 4 ml @ 4 mls/min BID IV 10/08/17 21:00 11/07/17 20:59 Future Hold 10/10/17 19:55 4 MLS/MIN Miscellaneous (Iv Fluids Completed) 1 ea PRN PRN N/A 10/08/17 19:30 10/08/18 19:29 Insulin Aspart (novoLOG ASPART) SLIDING SCALE If C... ACHS SC 10/09/17 16:30 11/08/17 16:29 10/20/17 13:14 2 UNITS [place] Carbonate (Lithobid Tab) 300 mg HS PO 10/10/17 21:00 11/09/17 20:59 Future Hold 10/16/17 23:48 300 MG [place] Carbonate ([place] Carbonate Tab) 300 mg QAM PO 10/13/17 09:00 11/12/17 08:59 Future Hold 10/16/17 09:27 300 MG Lactulose (Chronulac Syrup) 40 gm TID PO 10/13/17 20:00 11/07/17 20:59 10/20/17 12:37 40 GM Levetiracetam 750 mg/Dextrose 107.5 ml @ 420 mls/hr Q12 IV 10/15/17 09:00 11/14/17 08:59 10/20/17 09:15 420 MLS/HR Objective Vital Signs Date Time Temp Pulse Resp B/P (MAP) Pulse Ox O2 Delivery O2 Flow Rate FiO2 10/20/17 09:15 Nasal Cannula 3.0 BiPAP 10/20/17 08:16 37.0 71 18 102/50 (67) 100 Nasal Cannula 2.0 10/20/17 00:00 BiPAP 10/19/17 23:50 76 96 3.0 10/19/17 23:20 36.6 64 16 108/60 (76) 96 BiPAP 3.0 10/19/17 19:29 72 95 3.0 Physical Exam General Appearance: no apparent distress, + pertinent finding (Lethargic) Eyes: normal inspection, sclerae normal, + pertinent finding (Ptosis) Neck: supple, no carotid bruits Respiratory/Chest: chest non-tender, lungs clear, normal breath sounds Cardiovascular: regular rate, rhythm, no edema, no gallop Abdomen: normal bowel sounds, non tender, soft 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: + disoriented, + pertinent finding (Lethargic) Laboratory Results Results Past 24 Hours Test 10/19/17 16:35 10/19/17 20:07 10/20/17 07:32 10/20/17 07:45 Range/Units Bedside Glucose 194 131 115 70-90 mg/dl White Blood Count 8.83 4.8-10.8 K/uL Red Blood Count 4.59 4.2-5.4 M/uL Hemoglobin 12.3 12.0-16.0 g/dL Hematocrit 42.2 37-47 % Mean Corpuscular Volume 91.9 80-100 fL Mean Corpuscular Hemoglobin 26.8 25-34 pg Mean Corpuscular Hemoglobin Concent 29.1 32-36 g/dl RDW Standard Deviation 65.5 36.4-46.3 fL RDW Coefficient of Variation 19.6 11.5-14.5 % Platelet Count 109 130-400 K/uL Platelet Estimate DECREASED Sodium Level 141 136-145 mmol/L Potassium Level 3.7 3.5-5.1 mmol/L Chloride Level 106 98-107 mmol/L Carbon Dioxide Level 32 21-32 mmol/L Anion Gap 2.0 3-11 mmol/L Blood Urea Nitrogen 6 7-18 mg/dl Creatinine 0.84 0.60-1.20 mg/dl Est Creatinine Clear Calc Drug Dose 81.4 ml/min Estimated GFR () 86.3 Estimated GFR (Non- 74.5 BUN/Creatinine Ratio 7.6 10-20 Random Glucose 125 70-99 mg/dl Calcium Level 8.8 8.5-10.1 mg/dl Total Bilirubin 0.7 0.2-1 mg/dl Aspartate Amino Transf (AST/SGOT) 30 15-37 U/L Alanine Aminotransferase (ALT/SGPT) 25 12-78 U/L Alkaline Phosphatase 266 45-117 U/L Total Protein 6.6 6.4-8.2 gm/dl Albumin 2.5 3.4-5.0 gm/dl Globulin 4.1 2.5-4.0 gm/dl Albumin/Globulin Ratio 0.6 0.9-2 [place] Level 1.8 0.6-1.2 mMOL/L Test 10/20/17 11:39 Range/Units Bedside Glucose 167 70-90 mg/dl Assessment and Plan The patient is a 62 year old female with a past medical history of schizoaffective disorder, severe KORI, and a recent history of AMS that presented to the ED with somnolence secondary to excessive Haldol intake. The patient mental status appears significantly improved from yesterday. Acute metabolic encephalopathy - Mentation clearing - Initially 2/2 Oversedation from Haldol dose - now on hold - Hypercapnic Respiratory Acidosis - [place] level high - level today is 1.8 - MRI Brain: No acute abnormalities - Hx of hyperammonemia - On lactulose Hypercapnic Respiratory Acidosis sec to OHS - Improved with bipap use. - Continue BiPAP while asleep [place] Toxicity - improving - [place] Level 1.8 today - Holding lithium --> Continue to trend levels. Once down to normal range - will resume at lower dose. Per psychiatrist - Patient has responded best only to lithium - stop IVF to avoid fluid overload. - Limited effective fluid balance range considering biventricular HF and severe right heart dysfunction while the need to keep lithium level in range. - Consulted Pulmonology for input on prognosis and palliative care consulted - input appreciated. Abnormal UA - Urine culture --> more than 3 organism. 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 - d/c IVF to avoid fluid overload. - Evaluated by Pulmonology for right sided heart failure - Considering morbidity and poor prognosis- palliative care consulted. Schizoaffective Disorder - Holding [place] due to [place] level toxicity - Stopped Haldol due to Somnolence Seizure disorder - Continue Keppra 750mg IV BID - changed to IV due to poor PO intake Type 2 DM - Lantus and ISS DVT - Heparin Dispo - Uncertain considering the morbidity. follow Resuscitation Status - DNR Resident Tracking Resident Involvement: Resident Care Provided Care Provided: Adult Hospital Medicine Reviewed: Pt Seen/Exam by Me History staying alert but somewhat lethargic. unable to finish complete sentences during conversation at bedside. continues to be off bipap did agree to have labs drawn Constitutional: denies: fever Respiratory: negative: short of breath Cardiovascular: denies chest pain General Appearance: no apparent distress Respiratory: lungs clear, no respiratory distress Cardiovascular: regular rate, rhythm 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: alert Skin Characteristics: warm/dry Assessment/Plan Resident Physician Supervision Note: I independently interviewed and examined the patient and verified the lopez history and physical, reviewed labs and image studies, discussed the case with the resident Dr. Aburto and agree with the findings and care plan
[2017-10-20 19:00] VITALS: BP 101/62; PULSE 62; TEMP 36.2; O2SAT 97
[2017-10-20 19:29] VITALS: PULSE 71; O2SAT 95
[2017-10-20 23:02] VITALS: BP 115/70; PULSE 69; TEMP 36.6; O2SAT 100
[2017-10-21] MEDS: INSULIN ASPART 100 UNITS/ML 3 ML PEN SC SCH ×4 (06:30→20:17)
[2017-10-21 07:28] VITALS: BP 100/66; PULSE 73; TEMP 36.4; O2SAT 97
[2017-10-21] MEDS: LACTULOSE SYRUP 10 GM/15 ML BTL 473 ML PO SCH ×3 (08:03→20:08)
[2017-10-21] MEDS: NYSTATIN POWDER 15GM BTL EXT SCH ×2 (08:04→20:57)
[2017-10-21] MEDS: IPRATROPIUM BROMIDE/ALBUTEROL respimat INH INH SCH ×4 (08:04→20:52)
[2017-10-21] MEDS: LISINOPRIL 5 MG TAB PO SCH (08:05)
[2017-10-21] MEDS: MAGNESIUM OXIDE 400 MG TAB PO SCH ×2 (08:05→20:08)
[2017-10-21] MEDS: METOPROLOL SUCC 50MG EXT REL TAB PO SCH (08:05)
[2017-10-21] MEDS: LEVETIRACETAM IV 750 MG in DEXTROSE 5% 100ML 100 ML IV SCH ×3 (08:05→23:38)
[2017-10-21] MEDS: HEPARIN SOD 5000 UNIT/0.5 ML CARP SQ SCH ×2 (08:12→20:56)
[2017-10-21] MEDS: INSULIN GLARGINE SOLOSTAR 100 UNITS/ML 3 ML PEN SC SCH (08:12)
--- NOTE | 2017-10-21 15:48 | Family Medicine Progress Note ---
Progress Note Date of Service October 21, 2017. Subjective patient awake, and conversing Off BIPAP Denies any concerns Constitutional: No fever, No chills Eyes: No worsening of vision Respiratory: No cough, No shortness of breath, No dyspnea on exertion Cardiovascular: No chest pain Abdomen: No pain, No nausea, No vomiting Objective Vital Signs Date Time Temp Pulse Resp B/P (MAP) Pulse Ox O2 Delivery O2 Flow Rate FiO2 10/21/17 08:00 Room Air 10/21/17 07:28 36.4 73 20 100/66 (77) 97 10/21/17 00:00 BiPAP 10/20/17 23:02 36.6 69 18 115/70 (85) 100 Nasal Cannula 3.0 10/20/17 19:29 71 95 3.0 10/20/17 19:00 36.2 62 16 101/62 (75) 97 BiPAP 3.0 10/20/17 16:00 Nasal Cannula 3.0 Physical Exam General Appearance: no apparent distress Eyes: PERRL, EOMI ENT: hearing grossly normal Neck: supple Respiratory/Chest: lungs clear, normal breath sounds, no respiratory distress, no accessory muscle use Cardiovascular: regular rate, rhythm Abdomen: normal bowel sounds, non tender Extremities: normal range of motion, non-tender 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: alert, oriented x 3 Assessment and Plan The patient is a 62 year old female with a past medical history of schizoaffective disorder, severe KORI, and a recent history of AMS that presented to the ED with somnolence secondary to excessive Haldol intake. The patient mental status continues to improve. Acute metabolic encephalopathy - Mentation much improved - Initially 2/2 Oversedation from Haldol dose - now on hold - Hypercapnic Respiratory Acidosis - [place] level high - level today is 1.6 - MRI Brain: No acute abnormalities - Hx of hyperammonemia - On lactulose Hypercapnic Respiratory Acidosis sec to OHS - Improved with bipap use. - Continue BiPAP while asleep [place] Toxicity - improving - [place] Level 1.6 today - Holding lithium --> Continue to trend levels. Once down to normal range - will resume at lower dose. Per psychiatrist - Patient has responded best only to lithium - d/dennis IVF to avoid fluid overload. - reported noncompliance with medications off and on. - Limited effective fluid balance range considering biventricular HF and severe right heart dysfunction while the need to keep lithium level in range. - Consulted Pulmonology for input on prognosis and palliative care consulted - input appreciated. To explore SNF placement and options of palliative care. Abnormal UA - Urine culture --> more than 3 organism. 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 - d/dennis IVF to avoid fluid overload. - Evaluated by Pulmonology for right sided heart failure - Considering morbidity and poor prognosis- palliative care consulted. Thrombocytopenia - Follow Schizoaffective Disorder - Holding [place] due to [place] level toxicity- restart when levels are in normal range - Stopped Haldol due to Somnolence Seizure disorder - Continue Keppra 750mg IV BID - changed to IV due to poor PO intake Type 2 DM - Lantus and ISS DVT - Heparin Dispo - CM exploring SNF vs Hospice options Resuscitation Status - DNR Reviewed: Pt Seen/Exam by Me History up and sitting in chair. alert. Constitutional: denies: fever Respiratory: negative: short of breath General Appearance: no apparent distress (sitting in chair. able to converse with full sentences) Respiratory: lungs clear, no respiratory distress Cardiovascular: regular rate, rhythm Gastrointestinal: soft 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: alert Skin Characteristics: warm/dry Assessment/Plan Resident Physician Supervision Note: I independently interviewed and examined the patient and verified the lopez history and physical, reviewed labs and image studies, discussed the case with the resident Dr. Marcum and agree with the findings and care plan
[2017-10-21 16:06] VITALS: BP 111/73; PULSE 64; TEMP 36.9; O2SAT 100
--- NOTE | 2017-10-21 17:09 | Palliative Care Consultation ---
Consultation Date of Consultation: October 21, 2017. Requesting Physician: Dr Dalal Attending Physician: Dr Dalal Reason for Consultation: Discuss goals of care, patient is already a DNR History of Present Illness Patient is a 62-year-old female with a complicated past medical history including bipolar disease and schizoaffective disorder, CHF, diabetes, seizures , KORI, pulmonary hypertension, elevated ammonia level who was admitted on 10/08 for increased shortness of breath. Met with and patient at bedside. states the patient had been doing fairly well at home and then becomes belligerent and refuses to take her meds, and then in a short period time she gets short of breath, has fluid overload and ends up being in the hospital. Prior to admission patient was able to administer her own medications if her filled out a pillbox for her. acknowledges that each time she has hospitalized she does not return to her prior baseline and reports that he has seen a rapid, drastic decline over the past several months. Patient adamant about returning home and states she promises to take her medications like she is supposed to. has hired caregivers in the past to help with bathing and medication administration, but these have been short-lived as patient will refuse to cooperate. Patient has not been out of bed this hospitalization,Will need a PT OT eval to determine patient's rehab potential and ambulatory status. Patient has been admitted to [facility] in the past but would likely not be a candidate at this point. is also open to referrals to hospice as well as information on long-term care facilities in the area. works at the [employer] full-time, and does not return home until approximately 6:00 in the evening. Discussed several options including returning home with home health and additional paid caregivers, also suggested that he unplug this toe if the patient is at home by herself for any period of time. Also discussed long-term care facilities with and without hospice care, patient may be appropriate for [facility] in order to gain some strength and become more independent in her ADLs. Left message for case management, discussed with attending physician. Patient will need to be transitioned to p.o. medication and if requires placement in a long-term care facility will likely need some additional medication for her behavior. states that there are no family or friends in the area that can assist him with caring for the patient. Past Medical/Surgical History Medical History: Acute renal failure, altered mental status, bipolar disorder, schizoaffective disorder with history of psychosis, CHF, hypertension, DM, hyponatremia, seizure disorder, KORI, elevated ammonia level, pulmonary hypertension Surgical History: None recorded Family History Hypertension, diabetes, heart disease Social History Smoking Status: Never Smoker History of Alcohol Use: No Drug Use: none Marital Status: Housing Status: lives with significant other, other Occupation Status: retired Patient attended college in [employer] [facility] [place] and received her masters degree in accounting in [place]. works for [employer]. Review of Systems Constitutional: No fever, No chills Eyes: No worsening of vision ENT: No hearing loss Respiratory: + cough, + problem reported (Witnessed aspiration of thin liquids yesterday) Cardiac: + edema, No chest pain Abdomen: No pain Musculoskeletal: + swelling Neurologic: + weakness Psychiatric: + problem reported (Bipolar and schizoaffective disorder) Endo: + problem reported (Diabetes) Skin: No rash Allergies Coded Allergies: Penicillins (Unverified Allergy, Unknown, unknown, 10/01/17) Medications Current Inpatient Medications Medications (Trade) Dose Ordered Sig/Nanette Route Start Time Stop Time Status Last Admin Dose Admin Insulin Glargine (Lantus Solostar Pen) 8 units DAILY SC 10/08/17 18:00 11/07/17 17:59 10/21/17 08:12 8 UNITS Albuterol/ Ipratropium (Combivent Respimat Inh) 1 puffs QID INH 10/08/17 21:00 11/07/17 20:59 10/21/17 11:46 1 PUFFS Levetiracetam (Keppra Tab) 750 mg BID PO 10/08/17 21:00 11/07/17 20:59 Future Hold 10/14/17 09:32 750 MG Lisinopril (Zestril Tab) 5 mg QAM PO 10/09/17 09:00 11/08/17 08:59 10/21/17 08:05 5 MG Magnesium Oxide (Mag-Ox Tab) 400 mg BID PO 10/08/17 21:00 11/07/17 20:59 10/21/17 08:05 400 MG Metoprolol Succinate (Toprol Xl Tab) 50 mg DAILY PO 10/09/17 09:00 11/08/17 08:59 10/21/17 08:05 50 MG Nystatin (Mycostatin Powder) 1 appln BID EXT 10/08/17 21:00 11/07/17 20:59 10/21/17 08:04 1 APPLN Potassium Chloride (Klor-Con Tab) 80 meq QPM PO 10/08/17 21:00 11/07/17 20:59 Future Hold 10/08/17 20:53 80 MEQ Potassium Chloride (Klor-Con Tab) 160 meq QAM PO 10/09/17 09:00 11/08/17 08:59 Future Hold 10/10/17 08:29 160 MEQ Polyethylene (Miralax Powder Packet) 17 gm DAILY PRN PO 10/08/17 15:45 11/07/17 15:44 Heparin Sodium (Porcine) (Heparin Sq 5000 Unit/0.5ml) 5,000 unit Q12 SQ 10/08/17 21:00 11/07/17 20:59 10/21/17 08:12 5,000 UNIT Acetaminophen (Tylenol Tab) 650 mg Q4H PRN PO 10/08/17 15:45 11/07/17 15:44 10/20/17 09:24 650 MG Al Hydrox/Mg Hydrox/Simethicone (Maalox Max Susp) 15 ml Q4H PRN PO 10/08/17 15:45 11/07/17 15:44 Magnesium Hydroxide (Milk Of Magnesia Susp) 30 ml Q12H PRN PO 10/08/17 15:45 11/07/17 15:44 Ondansetron HCl (Zofran Inj) 4 mg Q6H PRN IV 10/08/17 15:45 11/07/17 15:44 Glucose (Glucose 40% Gel) 15-30 GRAMS 15 GRAMS... UD PRN PO 10/08/17 15:45 11/07/17 15:44 10/09/17 06:19 15 GM Glucose (Glucose Chew Tab) 4-8 Tablets 4 Tabl... UD PRN PO 10/08/17 15:45 11/07/17 15:44 Dextrose (Dextrose 50% 50ML Syringe) 25-50ML OF 50% DW IV FOR... UD PRN IV 10/08/17 15:45 11/07/17 15:44 10/09/17 06:47 25 ML Glucagon (Glucagon Inj) 1 mg UD PRN SQ 10/08/17 15:45 11/07/17 15:44 Furosemide 40 mg/ Syringe 4 ml @ 4 mls/min BID IV 10/08/17 21:00 11/07/17 20:59 Future Hold 10/10/17 19:55 4 MLS/MIN Miscellaneous (Iv Fluids Completed) 1 ea PRN PRN N/A 10/08/17 19:30 10/08/18 19:29 Insulin Aspart (novoLOG ASPART) SLIDING SCALE If C... ACHS SC 10/09/17 16:30 11/08/17 16:29 10/20/17 17:48 2 UNITS [place] Carbonate (Lithobid Tab) 300 mg HS PO 10/10/17 21:00 11/09/17 20:59 Future Hold 10/16/17 23:48 300 MG [place] Carbonate ([place] Carbonate Tab) 300 mg QAM PO 10/13/17 09:00 11/12/17 08:59 Future Hold 10/16/17 09:27 300 MG Lactulose (Chronulac Syrup) 40 gm TID PO 10/13/17 20:00 11/07/17 20:59 10/21/17 14:25 40 GM Levetiracetam 750 mg/Dextrose 107.5 ml @ 420 mls/hr Q12 IV 10/15/17 09:00 11/14/17 08:59 10/20/17 21:37 420 MLS/HR Physical Exam Date Time Temp Pulse Resp B/P (MAP) Pulse Ox O2 Delivery O2 Flow Rate FiO2 10/21/17 16:06 36.9 64 18 111/73 (86) 100 Nasal Cannula 3.0 10/21/17 08:00 Room Air 10/21/17 07:28 36.4 73 20 100/66 (77) 97 10/21/17 00:00 BiPAP 10/20/17 23:02 36.6 69 18 115/70 (85) 100 Nasal Cannula 3.0 10/20/17 19:29 71 95 3.0 10/20/17 19:00 36.2 62 16 101/62 (75) 97 BiPAP 3.0 General Appearance: no apparent distress Eyes: EOMI, + pertinent finding (Mild to moderate exophthalmos) ENT: hearing grossly normal Neck: supple Respiratory: no accessory muscle use, + decreased breath sounds Cardiovascular: regular rate, rhythm, + pertinent finding (Upper extremity and lower extremity edema) Abdomen: non tender, + distended, + pertinent finding (Obese) Musculoskeletal: normal tone, abnormal strength 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: alert, + pertinent finding (Mood and affect improved today compared to yesterday, patient more appropriate) Skin: warm/dry Laboratory Results Last 24 Hours Test 10/20/17 20:21 10/21/17 07:40 10/21/17 09:17 10/21/17 11:46 Bedside Glucose 141 mg/dl 113 mg/dl 164 mg/dl [place] Level 1.6 mMOL/L Test 10/21/17 16:34 Bedside Glucose 175 mg/dl Assessment & Plan Palliative Performance Scale: 30 % (1) Palliative care encounter Assessment & Plan: Discussed several care options once patient is discharged, left message for case management to meet with and provide a list of area facilities for long-term care as well as initial skilled care. also amenable to possible hospice referral once place of care is determined (2) Altered mental status Status: Acute Assessment & Plan: Improving (3) Congestive heart failure (CHF) Status: Chronic Assessment & Plan: Acute exacerbation due to medical noncompliance, patient still with significant edema-on Lasix IV (4) Weakness Status: Chronic Assessment & Plan: Increasing weakness, may require PT/OT evaluation to assess current status (5) Schizoaffective disorder, bipolar type without good prognostic features Status: Chronic Assessment & Plan: Patient on lithium, had elevated lithium level etiology of which is unknown. Fluid balance and renal function being monitored closely. Patient readily takes her lactulose, discussed with that her other medications would be able to be crushed and placed in applesauce or ice cream when patient becomes less cooperative taking her meds. Counseling and Coordination Total time spent 70 minutes with greater than 50% of the time spent at bedside discussing patient's prognosis, care options and goals of care.
[2017-10-21 21:49] VITALS: PULSE 74; O2SAT 95
[2017-10-21 23:58] VITALS: BP 105/64; PULSE 57; TEMP 36.5; O2SAT 98
[2017-10-22] VITALS: O2SAT 95
--- NOTE | 2017-10-22 07:33 | Family Medicine Progress Note ---
Progress Note Date of Service October 22, 2017. Subjective Pt evaluation today including: conversation w/ patient, physical exam Dara was awake and alert this morning, which is a significant improvement from before. Denies any pain. Constitutional: No fever, No chills Eyes: No worsening of vision ENT: No hearing loss Respiratory: No cough, No sputum All Other Systems: Reviewed and Negative Medications Current Inpatient Medications Medications (Trade) Dose Ordered Sig/Nanette Route Start Time Stop Time Status Last Admin Dose Admin Insulin Glargine (Lantus Solostar Pen) 8 units DAILY SC 10/08/17 18:00 11/07/17 17:59 10/22/17 09:12 8 UNITS Albuterol/ Ipratropium (Combivent Respimat Inh) 1 puffs QID INH 10/08/17 21:00 11/07/17 20:59 10/22/17 12:08 1 PUFFS Levetiracetam (Keppra Tab) 750 mg BID PO 10/08/17 21:00 11/07/17 20:59 Future Hold 10/14/17 09:32 750 MG Lisinopril (Zestril Tab) 5 mg QAM PO 10/09/17 09:00 11/08/17 08:59 10/22/17 09:07 5 MG Magnesium Oxide (Mag-Ox Tab) 400 mg BID PO 10/08/17 21:00 11/07/17 20:59 10/22/17 09:08 400 MG Metoprolol Succinate (Toprol Xl Tab) 50 mg DAILY PO 10/09/17 09:00 11/08/17 08:59 10/22/17 09:08 50 MG Nystatin (Mycostatin Powder) 1 appln BID EXT 10/08/17 21:00 11/07/17 20:59 10/22/17 09:06 1 APPLN Potassium Chloride (Klor-Con Tab) 80 meq QPM PO 10/08/17 21:00 11/07/17 20:59 Future Hold 10/08/17 20:53 80 MEQ Potassium Chloride (Klor-Con Tab) 160 meq QAM PO 10/09/17 09:00 11/08/17 08:59 Future Hold 10/10/17 08:29 160 MEQ Polyethylene (Miralax Powder Packet) 17 gm DAILY PRN PO 10/08/17 15:45 11/07/17 15:44 Heparin Sodium (Porcine) (Heparin Sq 5000 Unit/0.5ml) 5,000 unit Q12 SQ 10/08/17 21:00 11/07/17 20:59 10/22/17 09:11 5,000 UNIT Acetaminophen (Tylenol Tab) 650 mg Q4H PRN PO 10/08/17 15:45 11/07/17 15:44 10/20/17 09:24 650 MG Al Hydrox/Mg Hydrox/Simethicone (Maalox Max Susp) 15 ml Q4H PRN PO 10/08/17 15:45 11/07/17 15:44 Magnesium Hydroxide (Milk Of Magnesia Susp) 30 ml Q12H PRN PO 10/08/17 15:45 11/07/17 15:44 Ondansetron HCl (Zofran Inj) 4 mg Q6H PRN IV 10/08/17 15:45 11/07/17 15:44 Glucose (Glucose 40% Gel) 15-30 GRAMS 15 GRAMS... UD PRN PO 10/08/17 15:45 11/07/17 15:44 10/09/17 06:19 15 GM Glucose (Glucose Chew Tab) 4-8 Tablets 4 Tabl... UD PRN PO 10/08/17 15:45 11/07/17 15:44 Dextrose (Dextrose 50% 50ML Syringe) 25-50ML OF 50% DW IV FOR... UD PRN IV 10/08/17 15:45 11/07/17 15:44 10/09/17 06:47 25 ML Glucagon (Glucagon Inj) 1 mg UD PRN SQ 10/08/17 15:45 11/07/17 15:44 Furosemide 40 mg/ Syringe 4 ml @ 4 mls/min BID IV 10/08/17 21:00 11/07/17 20:59 Future Hold 10/10/17 19:55 4 MLS/MIN Miscellaneous (Iv Fluids Completed) 1 ea PRN PRN N/A 10/08/17 19:30 10/08/18 19:29 Insulin Aspart (novoLOG ASPART) SLIDING SCALE If C... ACHS SC 10/09/17 16:30 11/08/17 16:29 10/22/17 09:11 3 UNITS Clements Carbonate (Lithobid Tab) 300 mg HS PO 10/10/17 21:00 11/09/17 20:59 Future Hold 10/16/17 23:48 300 MG Clements Carbonate (Clements Carbonate Tab) 300 mg QAM PO 10/13/17 09:00 11/12/17 08:59 Future Hold 10/16/17 09:27 300 MG Lactulose (Chronulac Syrup) 40 gm TID PO 10/13/17 20:00 11/07/17 20:59 10/22/17 09:06 40 GM Levetiracetam 750 mg/Dextrose 107.5 ml @ 420 mls/hr Q12 IV 10/15/17 09:00 11/14/17 08:59 10/22/17 09:02 420 MLS/HR Objective Vital Signs Date Time Temp Pulse Resp B/P (MAP) Pulse Ox O2 Delivery O2 Flow Rate FiO2 10/22/17 08:00 Nasal Cannula 3.0 BiPAP 10/22/17 07:43 37.0 62 20 106/66 (79) 100 10/22/17 00:00 95 BiPAP 3.0 10/21/17 23:58 36.5 57 20 105/64 (78) 98 BiPAP 10/21/17 21:49 74 95 3.0 10/21/17 16:06 36.9 64 18 111/73 (86) 100 Nasal Cannula 3.0 10/21/17 16:00 Room Air Physical Exam General Appearance: WD/WN, no apparent distress Eyes: normal inspection, PERRL, + pertinent finding (exophthalmos) Neck: supple, no JVD Respiratory/Chest: lungs clear, normal breath sounds, no respiratory distress Cardiovascular: regular rate, rhythm, no murmur Abdomen: non tender, soft Extremities: non-tender, no pedal edema 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: alert, normal mood/affect, oriented x 3 Skin: no rash Laboratory Results Last 24 Hours Test 10/21/17 16:34 10/21/17 20:12 10/22/17 07:32 10/22/17 07:57 Bedside Glucose 175 mg/dl 143 mg/dl 122 mg/dl White Blood Count 5.49 K/uL Red Blood Count 4.46 M/uL Hemoglobin 12.2 g/dL Hematocrit 40.3 % Mean Corpuscular Volume 90.4 fL Mean Corpuscular Hemoglobin 27.4 pg Mean Corpuscular Hemoglobin Concent 30.3 g/dl Platelet Count 97 K/uL Mean Platelet Volume 10.8 fL Neutrophils (%) (Auto) 65.9 % Lymphocytes (%) (Auto) 16.9 % Monocytes (%) (Auto) 15.3 % Eosinophils (%) (Auto) 1.3 % Basophils (%) (Auto) 0.2 % Neutrophils # (Auto) 3.62 K/uL Lymphocytes # (Auto) 0.93 K/uL Monocytes # (Auto) 0.84 K/uL Eosinophils # (Auto) 0.07 K/uL Basophils # (Auto) 0.01 K/uL RDW Standard Deviation 63.9 fL RDW Coefficient of Variation 19.5 % Immature Granulocyte % (Auto) 0.4 % Immature Granulocyte # (Auto) 0.02 K/uL Platelet Estimate DECREASED Anisocytosis PRESENT Sodium Level 135 mmol/L Potassium Level 3.8 mmol/L Chloride Level 105 mmol/L Carbon Dioxide Level 28 mmol/L Anion Gap 2.0 mmol/L Blood Urea Nitrogen 6 mg/dl Creatinine 0.99 mg/dl Est Creatinine Clear Calc Drug Dose 69.4 ml/min Estimated GFR () 70.8 Estimated GFR (Non- 61.1 BUN/Creatinine Ratio 5.8 Random Glucose 153 mg/dl Calcium Level 8.8 mg/dl Total Bilirubin 0.8 mg/dl Aspartate Amino Transf (AST/SGOT) 28 U/L Alanine Aminotransferase (ALT/SGPT) 25 U/L Alkaline Phosphatase 276 U/L Total Protein 6.8 gm/dl Albumin 2.5 gm/dl Globulin 4.3 gm/dl Albumin/Globulin Ratio 0.6 Clements Level 1.6 mMOL/L Test 10/22/17 11:23 Bedside Glucose 158 mg/dl Assessment and Plan The patient is a 62 year old female with a past medical history of schizoaffective disorder, severe KORI, and a recent history of AMS that presented to the ED with somnolence secondary to excessive Haldol intake. The patient mental status continues to improve. Acute metabolic encephalopathy - Mentation almost back to baseline - Initially 2/2 Oversedation from Haldol dose - on hold - Hypercapnic Respiratory Acidosis - Clements toxicity - now resolving - MRI Brain: No acute abnormalities - Hx of hyperammonemia - On lactulose Hypercapnic Respiratory Acidosis sec to OHS - Improved with bipap use. - Continue BiPAP while asleep Clements Toxicity - improving - Clements Level 1.6 yesterday. refused to have blood draw today - Holding lithium --> Continue to trend levels. Once down to normal range - will resume at lower dose. Per psychiatrist - Patient has responded best only to lithium - d/dennis IVF to avoid fluid overload. - reported noncompliance with medications off and on. - Limited effective fluid balance range considering biventricular HF and severe right heart dysfunction while the need to keep lithium level in range. - Consulted Pulmonology for input on prognosis and palliative care consulted - input appreciated. To explore SNF placement and options of palliative care. Abnormal UA - Urine culture --> more than 3 organism. 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 - d/dennis IVF to avoid fluid overload. - Evaluated by Pulmonology for right sided heart failure - Considering morbidity and poor prognosis- palliative care consulted. Thrombocytopenia - Follow Schizoaffective Disorder - Holding Clements due to Clements level toxicity- restart when levels are in normal range - Stopped Haldol due to Somnolence Seizure disorder - Continue Keppra 750mg IV BID - changed to IV due to poor PO intake Type 2 DM - Lantus and ISS DVT - Heparin Dispo - CM exploring SNF vs Hospice options Resuscitation Status - DNR Dispo - awaiting discharge destination Resident Tracking Resident Involvement: Resident Care Provided Care Provided: Adult Hospital Medicine Reviewed: Pt Seen/Exam by Me History continues to stay more alert. Constitutional: denies: fever Respiratory: negative: short of breath Cardiovascular: denies chest pain General Appearance: no apparent distress Respiratory: no respiratory distress, decreased breath sounds Cardiovascular: regular rate, rhythm 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: alert Skin Characteristics: warm/dry Assessment/Plan Resident Physician Supervision Note: I independently interviewed and examined the patient and verified the lopez history and physical, reviewed labs and image studies, discussed the case with the resident Dr. Romero and agree with the findings and care plan
[2017-10-22 07:43] VITALS: BP 106/66; PULSE 62; TEMP 37; O2SAT 100
[2017-10-22 08:06] LABS: MEAN CORPUSCULAR HGB CONC 30.3 g/dl (32-36)
[2017-10-22 08:15] LABS: HEMATOCRIT 40.3 % (37-47); HEMOGLOBIN 12.2 g/dL (12.0-16.0); MEAN CELL VOLUME 90.4 fL (80-100); MEAN CORPUSCULAR HEMOGLOBIN 27.4 pg (25-34); RED CELL DISTRIBUTION WIDTH CV 19.5 % (11.5-14.5); RED CELL DISTRIBUTION WIDTH SD 63.9 fL (36.4-46.3); WHITE BLOOD COUNT 5.49 K/uL (4.8-10.8)
[2017-10-22 08:37] LABS: MEAN PLATELET VOLUME 10.8 fL (7.4-10.4); PLATELET COUNT 97 K/uL (130-400)
[2017-10-22 08:38] LABS: BASO % 0.2 %; BASO ABS # 0.01 K/uL (0-0.2); EOS % 1.3 %; EOS ABS # 0.07 K/uL (0-0.5); IG# 0.02 K/uL (0.00-0.02); LYMPH % 16.9 %; LYMPH ABS # 0.93 K/uL (1.2-3.4); MONO % 15.3 %; MONO ABS # 0.84 K/uL (0.11-0.59); NEUT % 65.9 %; NEUT ABS # 3.62 K/uL (1.4-6.5)
[2017-10-22 08:58] LABS: ALBUMIN 2.5 gm/dl (3.4-5.0); CALCIUM 8.8 mg/dl (8.5-10.1); CREATININE 0.99 mg/dl (0.60-1.20); POTASSIUM 3.8 mmol/L (3.5-5.1)
[2017-10-22 09:01] LABS: TOTAL PROTEIN 6.8 gm/dl (6.4-8.2)
[2017-10-22] MEDS: LEVETIRACETAM IV 750 MG in DEXTROSE 5% 100ML 100 ML IV SCH ×2 (09:02→21:22)
[2017-10-22] MEDS: IPRATROPIUM BROMIDE/ALBUTEROL respimat INH INH SCH ×5 (09:05→20:15)
[2017-10-22] MEDS: NYSTATIN POWDER 15GM BTL EXT SCH ×2 (09:06→20:15)
[2017-10-22] MEDS: LACTULOSE SYRUP 10 GM/15 ML BTL 473 ML PO SCH ×4 (09:06→20:16)
[2017-10-22] MEDS: LISINOPRIL 5 MG TAB PO SCH (09:07)
[2017-10-22] MEDS: MAGNESIUM OXIDE 400 MG TAB PO SCH ×3 (09:08→20:16)
[2017-10-22] MEDS: METOPROLOL SUCC 50MG EXT REL TAB PO SCH (09:08)
[2017-10-22] MEDS: HEPARIN SOD 5000 UNIT/0.5 ML CARP SQ SCH ×2 (09:11→21:30)
[2017-10-22] MEDS: INSULIN ASPART 100 UNITS/ML 3 ML PEN SC SCH ×4 (09:11→21:29)
[2017-10-22] MEDS: INSULIN GLARGINE SOLOSTAR 100 UNITS/ML 3 ML PEN SC SCH (09:12)
[2017-10-22 17:00] VITALS: BP 98/61; PULSE 59; TEMP 36.8; O2SAT 100
[2017-10-22 22:03] VITALS: PULSE 64; O2SAT 99
[2017-10-22 23:29] VITALS: BP 96/63; PULSE 60; TEMP 36.7; O2SAT 94
[2017-10-23 07:20] VITALS: BP 98/66; PULSE 63; TEMP 36.5; O2SAT 96
[2017-10-23] MEDS: IPRATROPIUM BROMIDE/ALBUTEROL respimat INH INH SCH ×4 (07:30→21:42)
[2017-10-23] MEDS: LACTULOSE SYRUP 10 GM/15 ML BTL 473 ML PO SCH ×3 (07:30→21:42)
[2017-10-23] MEDS: MAGNESIUM OXIDE 400 MG TAB PO SCH ×2 (07:30→21:42)
[2017-10-23] MEDS: LEVETIRACETAM IV 750 MG in DEXTROSE 5% 100ML 100 ML IV SCH ×2 (07:33→21:42)
[2017-10-23] MEDS: LISINOPRIL 5 MG TAB PO SCH (07:33)
[2017-10-23] MEDS: METOPROLOL SUCC 50MG EXT REL TAB PO SCH (07:34)
[2017-10-23] MEDS: NYSTATIN POWDER 15GM BTL EXT SCH ×2 (07:35→21:42)
[2017-10-23] MEDS: INSULIN GLARGINE SOLOSTAR 100 UNITS/ML 3 ML PEN SC SCH (07:37)
[2017-10-23] MEDS: HEPARIN SOD 5000 UNIT/0.5 ML CARP SQ SCH ×2 (07:39→21:46)
[2017-10-23] MEDS: INSULIN ASPART 100 UNITS/ML 3 ML PEN SC SCH ×4 (08:18→21:42)
--- NOTE | 2017-10-23 09:13 | Family Medicine Progress Note ---
Progress Note Date of Service October 23, 2017. Subjective Pt evaluation today including: conversation w/ patient, physical exam Voiding: no voiding problems Feels well today. Is happy and her daughter is going to bring her lipstick to wear. Denies any pain, reports some fullness in RLQ but no urinary or bowel sx. Constitutional: No fever, No chills Eyes: No worsening of vision ENT: No hearing loss Respiratory: No cough, No sputum Abdomen: No pain Female : No dysuria, No urinary frequency All Other Systems: Reviewed and Negative Medications Current Inpatient Medications Medications (Trade) Dose Ordered Sig/Nanette Route Start Time Stop Time Status Last Admin Dose Admin Insulin Glargine (Lantus Solostar Pen) 8 units DAILY SC 10/08/17 18:00 11/07/17 17:59 10/23/17 07:37 8 UNITS Albuterol/ Ipratropium (Combivent Respimat Inh) 1 puffs QID INH 10/08/17 21:00 11/07/17 20:59 10/23/17 07:30 1 PUFFS Levetiracetam (Keppra Tab) 750 mg BID PO 10/08/17 21:00 11/07/17 20:59 Future Hold 10/14/17 09:32 750 MG Lisinopril (Zestril Tab) 5 mg QAM PO 10/09/17 09:00 11/08/17 08:59 10/23/17 07:33 5 MG Magnesium Oxide (Mag-Ox Tab) 400 mg BID PO 10/08/17 21:00 11/07/17 20:59 10/23/17 07:30 400 MG Metoprolol Succinate (Toprol Xl Tab) 50 mg DAILY PO 10/09/17 09:00 11/08/17 08:59 10/23/17 07:34 50 MG Nystatin (Mycostatin Powder) 1 appln BID EXT 10/08/17 21:00 11/07/17 20:59 10/23/17 07:35 1 APPLN Potassium Chloride (Klor-Con Tab) 80 meq QPM PO 10/08/17 21:00 11/07/17 20:59 Future Hold 10/08/17 20:53 80 MEQ Potassium Chloride (Klor-Con Tab) 160 meq QAM PO 10/09/17 09:00 11/08/17 08:59 Future Hold 10/10/17 08:29 160 MEQ Polyethylene (Miralax Powder Packet) 17 gm DAILY PRN PO 10/08/17 15:45 11/07/17 15:44 Heparin Sodium (Porcine) (Heparin Sq 5000 Unit/0.5ml) 5,000 unit Q12 SQ 10/08/17 21:00 11/07/17 20:59 10/23/17 07:39 5,000 UNIT Acetaminophen (Tylenol Tab) 650 mg Q4H PRN PO 10/08/17 15:45 11/07/17 15:44 10/20/17 09:24 650 MG Al Hydrox/Mg Hydrox/Simethicone (Maalox Max Susp) 15 ml Q4H PRN PO 10/08/17 15:45 11/07/17 15:44 Magnesium Hydroxide (Milk Of Magnesia Susp) 30 ml Q12H PRN PO 10/08/17 15:45 11/07/17 15:44 Ondansetron HCl (Zofran Inj) 4 mg Q6H PRN IV 10/08/17 15:45 11/07/17 15:44 Glucose (Glucose 40% Gel) 15-30 GRAMS 15 GRAMS... UD PRN PO 10/08/17 15:45 11/07/17 15:44 10/09/17 06:19 15 GM Glucose (Glucose Chew Tab) 4-8 Tablets 4 Tabl... UD PRN PO 10/08/17 15:45 11/07/17 15:44 Dextrose (Dextrose 50% 50ML Syringe) 25-50ML OF 50% DW IV FOR... UD PRN IV 10/08/17 15:45 11/07/17 15:44 10/09/17 06:47 25 ML Glucagon (Glucagon Inj) 1 mg UD PRN SQ 10/08/17 15:45 11/07/17 15:44 Furosemide 40 mg/ Syringe 4 ml @ 4 mls/min BID IV 10/08/17 21:00 11/07/17 20:59 Future Hold 10/10/17 19:55 4 MLS/MIN Miscellaneous (Iv Fluids Completed) 1 ea PRN PRN N/A 10/08/17 19:30 10/08/18 19:29 Insulin Aspart (novoLOG ASPART) SLIDING SCALE If C... ACHS SC 10/09/17 16:30 11/08/17 16:29 10/23/17 08:18 3 UNITS Rossie Carbonate (Lithobid Tab) 300 mg HS PO 10/10/17 21:00 11/09/17 20:59 Future Hold 10/16/17 23:48 300 MG Rossie Carbonate (Rossie Carbonate Tab) 300 mg QAM PO 10/13/17 09:00 11/12/17 08:59 Future Hold 10/16/17 09:27 300 MG Lactulose (Chronulac Syrup) 40 gm TID PO 10/13/17 20:00 11/07/17 20:59 10/23/17 07:30 40 GM Levetiracetam 750 mg/Dextrose 107.5 ml @ 420 mls/hr Q12 IV 10/15/17 09:00 11/14/17 08:59 10/23/17 07:33 420 MLS/HR Objective Vital Signs Date Time Temp Pulse Resp B/P (MAP) Pulse Ox O2 Delivery O2 Flow Rate FiO2 10/23/17 07:20 36.5 63 18 98/66 (77) 96 Nasal Cannula 2.0 10/23/17 00:15 BiPAP 10/22/17 23:29 36.7 60 20 96/63 (74) 94 BiPAP 10/22/17 22:03 64 99 3.0 10/22/17 17:00 36.8 59 18 98/61 (73) 100 Nasal Cannula 2.0 Humidified Oxygen Physical Exam General Appearance: WD/WN, no apparent distress Eyes: normal inspection, PERRL ENT: hearing grossly normal Neck: supple, no JVD Respiratory/Chest: lungs clear, normal breath sounds, no respiratory distress Cardiovascular: regular rate, rhythm, no murmur Abdomen: non tender, soft Extremities: non-tender, no pedal edema 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: alert Skin: no rash Laboratory Results Last 24 Hours Test 10/22/17 11:23 10/22/17 16:21 10/22/17 20:35 10/23/17 07:48 Bedside Glucose 158 mg/dl 134 mg/dl 179 mg/dl 149 mg/dl Assessment and Plan The patient is a 62 year old female with a past medical history of schizoaffective disorder, severe KORI, and a recent history of AMS that presented to the ED with somnolence secondary to excessive Haldol intake. The patient mental status continues to improve. Acute metabolic encephalopathy - Mentation almost back to baseline - Initially 2/2 Oversedation from Haldol dose - still on hold, will likely restart tomorrow - Hypercapnic Respiratory Acidosis - Rossie toxicity - now resolving - MRI Brain: No acute abnormalities - Hx of hyperammonemia - On lactulose Hypercapnic Respiratory Acidosis sec to OHS - Improved with bipap use. - Continue BiPAP while asleep Rossie Toxicity - improving - Holding Rossie. Rossie Level 1.6. Levels coming down very slowly. Once down to normal range - consider resuming at a very low dose considering she becomes toxic easily. To reiterate compliance on discharge. Per psychiatrist - Patient has responded best only to lithium - d/dennis IVF to avoid fluid overload. - reported noncompliance with medications off and on. - Limited effective fluid balance range considering biventricular HF and severe right heart dysfunction while the need to keep lithium level in range. - Consulted Pulmonology for input on prognosis and palliative care consulted - input appreciated. To explore SNF placement and options of palliative care. Abnormal UA - Urine culture --> more than 3 organism. 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 - d/dennis IVF to avoid fluid overload. - Evaluated by Pulmonology for right sided heart failure - Considering morbidity and poor prognosis- palliative care consulted. Thrombocytopenia - Follow Schizoaffective Disorder - Holding Rossie due to Rossie level toxicity- restart when levels are in normal range - Stopped Haldol due to Somnolence Seizure disorder - Continue Keppra 750mg IV BID - changed to IV due to poor PO intake Type 2 DM - Lantus and ISS DVT - Heparin Dispo - CM exploring SNF vs Hospice options Resuscitation Status - DNR Dispo - awaiting discharge destination Resident Tracking Resident Involvement: Resident Care Provided Care Provided: Adult Hospital Medicine Reviewed: Pt Seen/Exam by Me History continues to be at baseline. Constitutional: denies: fever Respiratory: negative: short of breath Cardiovascular: denies chest pain General Appearance: no apparent distress (comfortable in bed) Respiratory: lungs clear, no respiratory distress Cardiovascular: regular rate, rhythm Gastrointestinal: soft 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: alert Skin Characteristics: warm/dry Assessment/Plan Resident Physician Supervision Note: I independently interviewed and examined the patient and verified the lopez history and physical, reviewed labs and image studies, discussed the case with the resident Dr. Romero and agree with the findings and care plan
[2017-10-23] MEDS ORDERED: FUROSEMIDE INJ 20 MG in SYRINGE 0 ML IV ONE (13:30)
--- NOTE | 2017-10-23 13:56 | DIAGNOSTIC IMAGING REPORT ---
CHEST ONE VIEW PORTABLE HISTORY: ?aspiration COMPARISON: Chest 10/08/2017. FINDINGS: No pneumothorax. Mild pulmonary vascular congestion without overt edema. Suspect trace bilateral pleural effusions. The heart remains moderately enlarged. Increased density within the left lung base. Rotated study. IMPRESSION: 1. Mild pulmonary vascular congestion, cardiomegaly, trace bilateral pleural effusions. 2. Increased density at the left lung base. This could be technical and related to the rotated study. Superimposed pneumonia could also have a similar appearance. Electronically signed by: Alfonso Perez M.D. 10/23/2017 1:55 PM Dictated Date/Time: 10/23/2017 1:52 PM
[2017-10-23 15:35] VITALS: BP 102/68; PULSE 62; TEMP 36.5; O2SAT 96
[2017-10-23 22:19] VITALS: PULSE 66; O2SAT 99
[2017-10-23 23:48] VITALS: BP 92/59; PULSE 58; TEMP 36.3; O2SAT 100
[2017-10-24 07:12] VITALS: BP 102/68; PULSE 60; TEMP 36.9; O2SAT 98
[2017-10-24] MEDS: MAGNESIUM OXIDE 400 MG TAB PO SCH ×2 (09:04→20:58)
[2017-10-24] MEDS: LEVETIRACETAM IV 750 MG in DEXTROSE 5% 100ML 100 ML IV SCH ×2 (09:04→20:47)
[2017-10-24] MEDS: LISINOPRIL 5 MG TAB PO SCH (09:04)
[2017-10-24] MEDS: METOPROLOL SUCC 50MG EXT REL TAB PO SCH (09:04)
[2017-10-24] MEDS: LACTULOSE SYRUP 10 GM/15 ML BTL 473 ML PO SCH ×3 (09:05→20:50)
[2017-10-24] MEDS: NYSTATIN POWDER 15GM BTL EXT SCH ×2 (09:05→21:28)
[2017-10-24] MEDS: IPRATROPIUM BROMIDE/ALBUTEROL respimat INH INH SCH ×4 (09:05→20:50)
[2017-10-24] MEDS: INSULIN ASPART 100 UNITS/ML 3 ML PEN SC SCH ×4 (09:16→20:52)
[2017-10-24] MEDS: HEPARIN SOD 5000 UNIT/0.5 ML CARP SQ SCH ×2 (09:17→20:54)
[2017-10-24] MEDS: INSULIN GLARGINE SOLOSTAR 100 UNITS/ML 3 ML PEN SC SCH (09:17)
[2017-10-24 15:45] VITALS: BP 94/63; PULSE 59; TEMP 36.8; O2SAT 96
--- NOTE | 2017-10-24 16:53 | Family Medicine Progress Note ---
Progress Note Date of Service October 24, 2017. Subjective Pt evaluation today including: conversation w/ patient, physical exam, chart review, lab review, review of studies Pain: No pain reported this morning Voiding: no voiding problems, no incontinence Patient is resting comfortably in bed this morning sitting upright when examined. The patient is alert and oriented today, although still seems to have decreased energy relative to her baseline. The patient has no acute complaints this morning. Appears significantly improved from admission. Constitutional: + fatigue, No fever, No chills, No sweats Respiratory: No cough, No sputum, No wheezing, No shortness of breath Cardiovascular: No chest pain, No palpitations Abdomen: No pain, No nausea, No vomiting, No diarrhea, No constipation Musculoskeletal: No muscle pain, No swelling Medications Current Inpatient Medications Medications (Trade) Dose Ordered Sig/Nanette Route Start Time Stop Time Status Last Admin Dose Admin Insulin Glargine (Lantus Solostar Pen) 8 units DAILY SC 10/08/17 18:00 11/07/17 17:59 10/24/17 09:17 8 UNITS Albuterol/ Ipratropium (Combivent Respimat Inh) 1 puffs QID INH 10/08/17 21:00 11/07/17 20:59 10/24/17 12:33 1 PUFFS Levetiracetam (Keppra Tab) 750 mg BID PO 10/08/17 21:00 11/07/17 20:59 Future Hold 10/14/17 09:32 750 MG Lisinopril (Zestril Tab) 5 mg QAM PO 10/09/17 09:00 11/08/17 08:59 10/24/17 09:04 5 MG Magnesium Oxide (Mag-Ox Tab) 400 mg BID PO 10/08/17 21:00 11/07/17 20:59 10/24/17 09:04 400 MG Metoprolol Succinate (Toprol Xl Tab) 50 mg DAILY PO 10/09/17 09:00 11/08/17 08:59 10/24/17 09:04 50 MG Nystatin (Mycostatin Powder) 1 appln BID EXT 10/08/17 21:00 11/07/17 20:59 10/24/17 09:05 1 APPLN Potassium Chloride (Klor-Con Tab) 80 meq QPM PO 10/08/17 21:00 11/07/17 20:59 Future Hold 10/08/17 20:53 80 MEQ Potassium Chloride (Klor-Con Tab) 160 meq QAM PO 10/09/17 09:00 11/08/17 08:59 Future Hold 10/10/17 08:29 160 MEQ Polyethylene (Miralax Powder Packet) 17 gm DAILY PRN PO 10/08/17 15:45 11/07/17 15:44 Heparin Sodium (Porcine) (Heparin Sq 5000 Unit/0.5ml) 5,000 unit Q12 SQ 10/08/17 21:00 11/07/17 20:59 10/24/17 09:17 5,000 UNIT Acetaminophen (Tylenol Tab) 650 mg Q4H PRN PO 10/08/17 15:45 11/07/17 15:44 10/20/17 09:24 650 MG Al Hydrox/Mg Hydrox/Simethicone (Maalox Max Susp) 15 ml Q4H PRN PO 10/08/17 15:45 11/07/17 15:44 Magnesium Hydroxide (Milk Of Magnesia Susp) 30 ml Q12H PRN PO 10/08/17 15:45 11/07/17 15:44 Ondansetron HCl (Zofran Inj) 4 mg Q6H PRN IV 10/08/17 15:45 11/07/17 15:44 Glucose (Glucose 40% Gel) 15-30 GRAMS 15 GRAMS... UD PRN PO 10/08/17 15:45 11/07/17 15:44 10/09/17 06:19 15 GM Glucose (Glucose Chew Tab) 4-8 Tablets 4 Tabl... UD PRN PO 10/08/17 15:45 11/07/17 15:44 Dextrose (Dextrose 50% 50ML Syringe) 25-50ML OF 50% DW IV FOR... UD PRN IV 10/08/17 15:45 11/07/17 15:44 10/09/17 06:47 25 ML Glucagon (Glucagon Inj) 1 mg UD PRN SQ 10/08/17 15:45 11/07/17 15:44 Furosemide 40 mg/ Syringe 4 ml @ 4 mls/min BID IV 10/08/17 21:00 11/07/17 20:59 Future Hold 10/10/17 19:55 4 MLS/MIN Miscellaneous (Iv Fluids Completed) 1 ea PRN PRN N/A 10/08/17 19:30 10/08/18 19:29 Insulin Aspart (novoLOG ASPART) SLIDING SCALE If C... ACHS SC 10/09/17 16:30 11/08/17 16:29 10/24/17 12:35 4 UNITS Tiburones Carbonate (Lithobid Tab) 300 mg HS PO 10/10/17 21:00 11/09/17 20:59 Future Hold 10/16/17 23:48 300 MG Tiburones Carbonate (Tiburones Carbonate Tab) 300 mg QAM PO 10/13/17 09:00 11/12/17 08:59 Future Hold 10/16/17 09:27 300 MG Lactulose (Chronulac Syrup) 40 gm TID PO 10/13/17 20:00 11/07/17 20:59 10/24/17 14:24 40 GM Levetiracetam 750 mg/Dextrose 107.5 ml @ 420 mls/hr Q12 IV 10/15/17 09:00 11/14/17 08:59 10/24/17 09:04 420 MLS/HR Objective Vital Signs Date Time Temp Pulse Resp B/P (MAP) Pulse Ox O2 Delivery O2 Flow Rate FiO2 10/24/17 15:45 36.8 59 16 94/63 (73) 96 Nasal Cannula 3.0 10/24/17 09:00 Nasal Cannula 3.0 10/24/17 07:12 36.9 60 20 102/68 (79) 98 BiPAP 10/24/17 00:00 BiPAP 10/23/17 23:48 36.3 58 20 92/59 (70) 100 BiPAP 10/23/17 22:19 66 99 3.0 10/23/17 20:00 Nasal Cannula 3.0 Physical Exam General Appearance: no apparent distress, + pertinent finding (Mild lethargy) Eyes: normal inspection, sclerae normal, + pertinent finding (ptosis) Neck: supple, no carotid bruits Respiratory/Chest: chest non-tender, lungs clear, normal breath sounds Cardiovascular: regular rate, rhythm, no edema, no gallop Abdomen: normal bowel sounds, non tender, soft 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: no motor/sensory deficits, alert, oriented x 3, + pertinent finding Laboratory Results Results Past 24 Hours Test 10/23/17 17:06 10/23/17 20:15 10/24/17 07:54 10/24/17 11:33 Range/Units Bedside Glucose 130 149 124 182 70-90 mg/dl Assessment and Plan The patient is a 62 year old female with a past medical history of schizoaffective disorder, severe KORI, and a recent history of AMS that presented to the ED with somnolence secondary to excessive Haldol intake. The patient mental status continues to improve. Acute metabolic encephalopathy - Mentation almost back to baseline - Initially 2/2 Oversedation from Haldol dose - Was initially on monthly Haldol injections although after last admission had Haldol dosing increased to daily intake - Once returns to baseline mental status will resume low dose Haldol and titrate upwards - Hypercapnic Respiratory Acidosis - Tiburones toxicity - now resolving - MRI Brain: No acute abnormalities - Hx of hyperammonemia - On lactulose Hypercapnic Respiratory Acidosis sec to OHS - Improved with BiPAP --> Continue while asleep Tiburones Toxicity - improving - Holding Tiburones. Tiburones Level 1.6. Levels coming down very slowly. Once down to normal range - consider resuming at a very low dose considering she becomes toxic easily. To reiterate compliance on discharge. Per psychiatrist - Patient has responded best only to lithium - d/dennis IVF to avoid fluid overload. - reported noncompliance with medications off and on. - Limited effective fluid balance range considering biventricular HF and severe right heart dysfunction while the need to keep lithium level in range. - Consulted Pulmonology for input on prognosis and palliative care consulted - input appreciated. To explore SNF placement and options of palliative care. Abnormal UA - Urine culture --> more than 3 organism. - Discontinued Rocephin Acute on chronic Biventricular Heart failure CHF - Cor Pulmonale - Holding IV fluids at this time to prevent fluid overload - Also holding lasix since 10/10 Thrombocytopenia - Follow Schizoaffective Disorder - Holding Tiburones due to Tiburones level toxicity- restart when levels are in normal range - Stopped Haldol due to Somnolence Seizure disorder - Continue Keppra 750mg IV BID - changed to IV due to poor PO intake Type 2 DM - Lantus and ISS DVT - Heparin Dispo - Awaiting bed at [facility] Resuscitation Status - DNR Resident Physician Supervision Note: I interviewed and examined the patient. Discussed with Dr. Aburto and agree with findings and plan as documented in the note. Any exceptions or clarifications are listed here: None Documented By: Jeremiah Lewis more talkative, more interactive, is fairly repetitive updated he reminded me she was on depot haldol prior - then psychiatrist had added additional due to her not being well enough controlled vitals noted nad breathing unlabored altered mental status - finally improving - as above -working towards short term at [facility] Resident Tracking Resident Involvement: Resident Care Provided Care Provided: Adult Hospital Medicine
[2017-10-24 23:27] VITALS: BP 107/69; PULSE 61; TEMP 36.8; O2SAT 96
[2017-10-25 02:15] VITALS: PULSE 68; O2SAT 96
[2017-10-25 06:59] VITALS: BP 107/71; PULSE 65; TEMP 36.4; O2SAT 100
[2017-10-25] MEDS: MAGNESIUM OXIDE 400 MG TAB PO SCH ×2 (08:24→21:39)
[2017-10-25] MEDS: LACTULOSE SYRUP 10 GM/15 ML BTL 473 ML PO SCH ×3 (08:24→21:37)
[2017-10-25] MEDS: LEVETIRACETAM IV 750 MG in DEXTROSE 5% 100ML 100 ML IV SCH ×2 (08:24→21:34)
[2017-10-25] MEDS: IPRATROPIUM BROMIDE/ALBUTEROL respimat INH INH SCH ×4 (08:24→21:35)
[2017-10-25] MEDS: LISINOPRIL 5 MG TAB PO SCH (08:24)
[2017-10-25] MEDS: METOPROLOL SUCC 50MG EXT REL TAB PO SCH (08:25)
[2017-10-25 08:37] VITALS: BP 107/68; O2SAT 97
[2017-10-25] MEDS: INSULIN GLARGINE SOLOSTAR 100 UNITS/ML 3 ML PEN SC SCH (08:49)
[2017-10-25] MEDS: INSULIN ASPART 100 UNITS/ML 3 ML PEN SC SCH ×5 (09:03→21:00)
[2017-10-25] MEDS: HEPARIN SOD 5000 UNIT/0.5 ML CARP SQ SCH ×2 (09:36→21:42)
[2017-10-25] MEDS: NYSTATIN POWDER 15GM BTL EXT SCH ×2 (09:36→21:52)
--- NOTE | 2017-10-25 10:42 | Family Medicine Progress Note ---
Progress Note Date of Service October 25, 2017. Subjective Pt evaluation today including: conversation w/ patient, physical exam, chart review, lab review, review of studies Pain: No pain reported this morning Voiding: no voiding problems, no incontinence Patient resting comfortably in bed this morning with no acute complaints Constitutional: No fever, No chills, No sweats, No fatigue Respiratory: No cough, No wheezing, No shortness of breath Cardiovascular: No chest pain, No palpitations Abdomen: No pain, No nausea, No vomiting Female : No dysuria, No urinary frequency Endo: No fatigue Medications Current Inpatient Medications Medications (Trade) Dose Ordered Sig/Nanette Route Start Time Stop Time Status Last Admin Dose Admin Insulin Glargine (Lantus Solostar Pen) 8 units DAILY SC 10/08/17 18:00 11/07/17 17:59 10/25/17 08:49 8 UNITS Albuterol/ Ipratropium (Combivent Respimat Inh) 1 puffs QID INH 10/08/17 21:00 11/07/17 20:59 10/25/17 08:24 1 PUFFS Levetiracetam (Keppra Tab) 750 mg BID PO 10/08/17 21:00 11/07/17 20:59 Future Hold 10/14/17 09:32 750 MG Lisinopril (Zestril Tab) 5 mg QAM PO 10/09/17 09:00 11/08/17 08:59 10/25/17 08:24 5 MG Magnesium Oxide (Mag-Ox Tab) 400 mg BID PO 10/08/17 21:00 11/07/17 20:59 10/25/17 08:24 400 MG Metoprolol Succinate (Toprol Xl Tab) 50 mg DAILY PO 10/09/17 09:00 11/08/17 08:59 10/25/17 08:25 50 MG Nystatin (Mycostatin Powder) 1 appln BID EXT 10/08/17 21:00 11/07/17 20:59 10/25/17 09:36 1 APPLN Potassium Chloride (Klor-Con Tab) 80 meq QPM PO 10/08/17 21:00 11/07/17 20:59 Future Hold 10/08/17 20:53 80 MEQ Potassium Chloride (Klor-Con Tab) 160 meq QAM PO 10/09/17 09:00 11/08/17 08:59 Future Hold 10/10/17 08:29 160 MEQ Polyethylene (Miralax Powder Packet) 17 gm DAILY PRN PO 10/08/17 15:45 11/07/17 15:44 Heparin Sodium (Porcine) (Heparin Sq 5000 Unit/0.5ml) 5,000 unit Q12 SQ 10/08/17 21:00 11/07/17 20:59 10/25/17 09:36 5,000 UNIT Acetaminophen (Tylenol Tab) 650 mg Q4H PRN PO 10/08/17 15:45 11/07/17 15:44 10/20/17 09:24 650 MG Al Hydrox/Mg Hydrox/Simethicone (Maalox Max Susp) 15 ml Q4H PRN PO 10/08/17 15:45 11/07/17 15:44 Magnesium Hydroxide (Milk Of Magnesia Susp) 30 ml Q12H PRN PO 10/08/17 15:45 11/07/17 15:44 Ondansetron HCl (Zofran Inj) 4 mg Q6H PRN IV 10/08/17 15:45 11/07/17 15:44 Glucose (Glucose 40% Gel) 15-30 GRAMS 15 GRAMS... UD PRN PO 10/08/17 15:45 11/07/17 15:44 10/09/17 06:19 15 GM Glucose (Glucose Chew Tab) 4-8 Tablets 4 Tabl... UD PRN PO 10/08/17 15:45 11/07/17 15:44 Dextrose (Dextrose 50% 50ML Syringe) 25-50ML OF 50% DW IV FOR... UD PRN IV 10/08/17 15:45 11/07/17 15:44 10/09/17 06:47 25 ML Glucagon (Glucagon Inj) 1 mg UD PRN SQ 10/08/17 15:45 11/07/17 15:44 Furosemide 40 mg/ Syringe 4 ml @ 4 mls/min BID IV 10/08/17 21:00 11/07/17 20:59 Future Hold 10/10/17 19:55 4 MLS/MIN Miscellaneous (Iv Fluids Completed) 1 ea PRN PRN N/A 10/08/17 19:30 10/08/18 19:29 Insulin Aspart (novoLOG ASPART) SLIDING SCALE If C... ACHS SC 10/09/17 16:30 11/08/17 16:29 10/24/17 20:52 1 UNITS [employer] Carbonate (Lithobid Tab) 300 mg HS PO 10/10/17 21:00 11/09/17 20:59 Future Hold 10/16/17 23:48 300 MG [employer] Carbonate ([employer] Carbonate Tab) 300 mg QAM PO 10/13/17 09:00 11/12/17 08:59 Future Hold 10/16/17 09:27 300 MG Lactulose (Chronulac Syrup) 40 gm TID PO 10/13/17 20:00 11/07/17 20:59 10/25/17 08:24 40 GM Levetiracetam 750 mg/Dextrose 107.5 ml @ 420 mls/hr Q12 IV 10/15/17 09:00 11/14/17 08:59 10/25/17 08:24 420 MLS/HR Objective Vital Signs Date Time Temp Pulse Resp B/P (MAP) Pulse Ox O2 Delivery O2 Flow Rate FiO2 10/25/17 08:37 20 107/68 (81) 97 Nasal Cannula 3.0 10/25/17 06:59 36.4 65 18 107/71 (83) 100 BiPAP 10/25/17 02:15 68 96 3.0 10/25/17 00:00 BiPAP 10/24/17 23:27 36.8 61 18 107/69 (82) 96 CPAP 3.0 10/24/17 16:00 Nasal Cannula 3.0 10/24/17 15:45 36.8 59 16 94/63 (73) 96 Nasal Cannula 3.0 Physical Exam General Appearance: no apparent distress, + pertinent finding (mildly lethargic ) Eyes: sclerae normal, + pertinent finding (ptosis) Neck: supple, no carotid bruits Respiratory/Chest: chest non-tender, lungs clear, normal breath sounds Cardiovascular: regular rate, rhythm, no edema, no gallop Abdomen: normal bowel sounds, non tender, soft Extremities: no pedal edema, no calf tenderness 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: alert, + disoriented (mildly confused and lethargic), + pertinent finding (oriented to person and place) Skin: no rash Laboratory Results Results Past 24 Hours Test 10/24/17 11:33 10/24/17 16:51 10/24/17 20:15 10/25/17 07:30 Range/Units Bedside Glucose 182 115 164 124 70-90 mg/dl Test 10/25/17 08:41 Range/Units Assessment and Plan The patient is a 62 year old female with a past medical history of schizoaffective disorder, severe KORI, and a recent history of AMS that presented to the ED with somnolence secondary to excessive Haldol intake. The patient mental status continues to improve. Acute metabolic encephalopathy - Mentation almost back to baseline - Initially 2/2 Oversedation from Haldol dose - Was initially on monthly Haldol injections although after last admission had Haldol dosing increased to daily intake - Once returns to baseline mental status will resume low dose Haldol and titrate upwards - Hypercapnic Respiratory Acidosis - [employer] toxicity - now resolving - MRI Brain: No acute abnormalities - Hx of hyperammonemia - On lactulose Hypercapnic Respiratory Acidosis sec to OHS - Improved with BiPAP --> Continue while asleep [employer] Toxicity - improving - Holding [employer]. [employer] Level 1.6. Levels coming down very slowly. Once down to normal range - consider resuming at a very low dose considering she becomes toxic easily. To reiterate compliance on discharge. Per psychiatrist - Patient has responded best only to lithium - d/dennis IVF to avoid fluid overload. - reported noncompliance with medications off and on. - Limited effective fluid balance range considering biventricular HF and severe right heart dysfunction while the need to keep lithium level in range. - Consulted Pulmonology for input on prognosis and palliative care consulted - input appreciated. To explore SNF placement and options of palliative care. Abnormal UA - Urine culture --> more than 3 organism. - Discontinued Rocephin Acute on chronic Biventricular Heart failure CHF - Cor Pulmonale - Holding IV fluids at this time to prevent fluid overload - Also holding lasix since 10/10 Thrombocytopenia - Follow Schizoaffective Disorder - Holding [employer] due to [employer] level toxicity- restart when levels are in normal range - Stopped Haldol due to Somnolence Seizure disorder - Continue Keppra 750mg IV BID - changed to IV due to poor PO intake Type 2 DM - Lantus and ISS DVT - Heparin Dispo - [facility] will not be accepting the patient - [facility] Resuscitation Status - DNR Resident Physician Supervision Note: I interviewed and examined the patient. Discussed with Dr. Aburto and agree with findings and plan as documented in the note. Any exceptions or clarifications are listed here: None Documented By: Jeremiah Lewis notes that she's getting a little more towards manic vitals noted nad breathing unlabored bipolar - starting to work towards manic again - carefully restart lithium and follow levels, gently resume haldol (d/w and we both agree if she refuses PO IM would be appropriate given risks/bneefits of her deteriorating into radha) -very low threshold to consult psych if she doesn't quickly stabilize -follow mentation closely since psych meds appear to have been the main driving factor in her suppression early this admission Resident Tracking Resident Involvement: Resident Care Provided Care Provided: Adult Hospital Medicine
[2017-10-25] MEDS ORDERED: LITHIUM CARBONATE 300 MG TAB PO ONE (12:39)
[2017-10-25] MEDS ORDERED: HALOPERIDOL 0.5 MG TAB PO STA (12:39)
[2017-10-25 15:18] VITALS: BP 116/75; PULSE 68; TEMP 36.9; O2SAT 98
[2017-10-25] MEDS: LITHIUM CARBONATE SR 300 MG TAB (LITHOBID) PO SCH (21:37)
[2017-10-25] MEDS: CHOLECALCIFEROL 1000 INTER.UNIT TAB PO SCH (21:38)
[2017-10-25] MEDS: FUROSEMIDE 40 MG TAB PO SCH (21:39)
[2017-10-25 22:20] VITALS: PULSE 75; O2SAT 95
[2017-10-25 23:32] VITALS: BP 93/62; PULSE 76; TEMP 36.8; O2SAT 96
[2017-10-26] VITALS: O2SAT 95
[2017-10-26 07:24] VITALS: BP 107/73; PULSE 78; TEMP 36.8; O2SAT 99
[2017-10-26] MEDS: LISINOPRIL 5 MG TAB PO SCH (08:28)
[2017-10-26] MEDS: METOPROLOL SUCC 50MG EXT REL TAB PO SCH (08:28)
[2017-10-26] MEDS: ACETAMINOPHEN 325 MG TAB PO PRN (08:28)
[2017-10-26] MEDS: CHOLECALCIFEROL 1000 INTER.UNIT TAB PO SCH ×2 (08:29→20:43)
[2017-10-26] MEDS: IPRATROPIUM BROMIDE/ALBUTEROL respimat INH INH SCH ×4 (08:29→20:40)
[2017-10-26] MEDS: FUROSEMIDE 80 MG TAB PO SCH (08:29)
[2017-10-26] MEDS: LACTULOSE SYRUP 10 GM/15 ML BTL 473 ML PO SCH ×3 (08:30→20:40)
[2017-10-26] MEDS: MAGNESIUM OXIDE 400 MG TAB PO SCH ×2 (08:30→20:43)
[2017-10-26] MEDS: NYSTATIN POWDER 15GM BTL EXT SCH ×2 (08:31→20:44)
[2017-10-26] MEDS: INSULIN ASPART 100 UNITS/ML 3 ML PEN SC SCH ×4 (08:45→20:39)
[2017-10-26] MEDS: INSULIN GLARGINE SOLOSTAR 100 UNITS/ML 3 ML PEN SC SCH (08:55)
[2017-10-26] MEDS: LEVETIRACETAM IV 750 MG in DEXTROSE 5% 100ML 100 ML IV SCH ×2 (08:56→20:43)
[2017-10-26] MEDS: HEPARIN SOD 5000 UNIT/0.5 ML CARP SQ SCH ×2 (08:58→20:54)
[2017-10-26] MEDS ORDERED: HALOPERIDOL 0.5 MG TAB PO PRN ×2 (09:15→21:15)
[2017-10-26] MEDS: POTASSIUM CHLORIDE 20 MEQ TABCR PO SCH (12:00)
[2017-10-26 14:58] VITALS: BP 93/54; PULSE 62; TEMP 36.5; O2SAT 99
--- NOTE | 2017-10-26 16:42 | Family Medicine Progress Note ---
Progress Note Date of Service October 26, 2017. Subjective Pt evaluation today including: physical exam, chart review, lab review, review of studies Pain: Patient lethargic and non responsive this mroning Voiding: no voiding problems, no incontinence The patient appears lethargic this morning as her waxing and waning alertness has continued. We attempted to resume her Haldol and [place] yesterday evening and it is difficult at this point to say if this has further contributed to her confusion. Additional Comments: Unable to obtain ROS due to patient confusion Medications Current Inpatient Medications Medications (Trade) Dose Ordered Sig/Nanette Route Start Time Stop Time Status Last Admin Dose Admin Insulin Glargine (Lantus Solostar Pen) 8 units DAILY SC 10/08/17 18:00 11/07/17 17:59 10/26/17 08:55 8 UNITS Albuterol/ Ipratropium (Combivent Respimat Inh) 1 puffs QID INH 10/08/17 21:00 11/07/17 20:59 10/26/17 08:29 1 PUFFS Levetiracetam (Keppra Tab) 750 mg BID PO 10/08/17 21:00 11/07/17 20:59 Future Hold 10/14/17 09:32 750 MG Lisinopril (Zestril Tab) 5 mg QAM PO 10/09/17 09:00 11/08/17 08:59 10/26/17 08:28 5 MG Magnesium Oxide (Mag-Ox Tab) 400 mg BID PO 10/08/17 21:00 11/07/17 20:59 10/26/17 08:30 400 MG Metoprolol Succinate (Toprol Xl Tab) 50 mg DAILY PO 10/09/17 09:00 11/08/17 08:59 10/26/17 08:28 50 MG Nystatin (Mycostatin Powder) 1 appln BID EXT 10/08/17 21:00 11/07/17 20:59 10/26/17 08:31 1 APPLN Potassium Chloride (Klor-Con Tab) 80 meq QPM PO 10/08/17 21:00 11/07/17 20:59 Future Hold 10/08/17 20:53 80 MEQ Potassium Chloride (Klor-Con Tab) 160 meq QAM PO 10/09/17 09:00 5/29/18 08:59 Future Hold 10/10/17 08:29 160 MEQ Polyethylene (Miralax Powder Packet) 17 gm DAILY PRN PO 10/08/17 15:45 11/07/17 15:44 Heparin Sodium (Porcine) (Heparin Sq 5000 Unit/0.5ml) 5,000 unit Q12 SQ 10/08/17 21:00 11/07/17 20:59 10/26/17 08:58 5,000 UNIT Acetaminophen (Tylenol Tab) 650 mg Q4H PRN PO 10/08/17 15:45 11/07/17 15:44 10/26/17 08:28 650 MG Al Hydrox/Mg Hydrox/Simethicone (Maalox Max Susp) 15 ml Q4H PRN PO 10/08/17 15:45 11/07/17 15:44 Magnesium Hydroxide (Milk Of Magnesia Susp) 30 ml Q12H PRN PO 10/08/17 15:45 11/07/17 15:44 Ondansetron HCl (Zofran Inj) 4 mg Q6H PRN IV 10/08/17 15:45 11/07/17 15:44 Glucose (Glucose 40% Gel) 15-30 GRAMS 15 GRAMS... UD PRN PO 10/08/17 15:45 11/07/17 15:44 10/09/17 06:19 15 GM Glucose (Glucose Chew Tab) 4-8 Tablets 4 Tabl... UD PRN PO 10/08/17 15:45 11/07/17 15:44 Dextrose (Dextrose 50% 50ML Syringe) 25-50ML OF 50% DW IV FOR... UD PRN IV 10/08/17 15:45 11/07/17 15:44 10/09/17 06:47 25 ML Glucagon (Glucagon Inj) 1 mg UD PRN SQ 10/08/17 15:45 11/07/17 15:44 Furosemide 40 mg/ Syringe 4 ml @ 4 mls/min BID IV 10/08/17 21:00 11/07/17 20:59 Future Hold 10/10/17 19:55 4 MLS/MIN Miscellaneous (Iv Fluids Completed) 1 ea PRN PRN N/A 10/08/17 19:30 10/08/18 19:29 Insulin Aspart (novoLOG ASPART) SLIDING SCALE If C... ACHS SC 4/29/18 16:30 11/08/17 16:29 10/26/17 08:45 3 UNITS [place] Carbonate (Lithobid Tab) 300 mg HS PO 10/10/17 21:00 11/09/17 20:59 Future hold 10/25/17 21:37 300 MG [place] Carbonate ([place] Carbonate Tab) 300 mg QAM PO 10/13/17 09:00 11/12/17 08:59 Future Hold 10/16/17 09:27 300 MG Lactulose (Chronulac Syrup) 40 gm TID PO 10/13/17 20:00 11/07/17 20:59 10/26/17 14:11 40 GM Levetiracetam 750 mg/Dextrose 107.5 ml @ 420 mls/hr Q12 IV 10/15/17 09:00 11/14/17 08:59 10/26/17 08:56 420 MLS/HR Furosemide (Lasix Tab) 40 mg QPM PO 10/25/17 21:00 11/24/17 20:59 10/25/17 21:39 40 MG Furosemide (Lasix Tab) 80 mg QAM PO 10/26/17 08:00 11/25/17 07:59 10/26/17 08:29 80 MG Cholecalciferol (Vitamin D Tab) 1,000 inter.unit BID PO 10/25/17 20:00 11/24/17 19:59 10/26/17 08:29 1,000 INTER.UNIT Miscellaneous Information (Order Awaiting Action) 1 ea QS N/A 10/25/17 16:00 11/24/17 15:59 Potassium Chloride (Klor-Con Tab) 40 meq DAILY@1200 PO 10/26/17 12:00 11/25/17 11:59 Haloperidol (Haldol Tab) 0.5 mg HS PO 10/26/17 21:00 11/25/17 20:59 Haloperidol (Haldol Tab) 0.5 mg DAILY PRN PO 10/26/17 09:15 11/25/17 09:14 Objective Vital Signs Date Time Temp Pulse Resp B/P (MAP) Pulse Ox O2 Delivery O2 Flow Rate FiO2 10/26/17 14:58 36.5 62 18 93/54 (67) 99 Nasal Cannula 3.0 10/26/17 08:00 Nasal Cannula 3.0 10/26/17 07:24 36.8 78 20 107/73 (84) 99 Nasal Cannula 3.0 10/26/17 00:00 95 BiPAP 10/25/17 23:32 36.8 76 18 93/62 (72) 96 CPAP 10/25/17 22:20 75 95 3.0 Physical Exam General Appearance: no apparent distress, + obese, + pertinent finding ( Lethargic) Eyes: normal inspection, sclerae normal, + pertinent finding (ptosis) Respiratory/Chest: chest non-tender, lungs clear, normal breath sounds Cardiovascular: regular rate, rhythm, no edema, no gallop Abdomen: normal bowel sounds, non tender, soft Extremities: no pedal edema, no calf tenderness 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: + disoriented, + pertinent finding (Patient appearing lethargic and turns to verbal stimuli but not responding) Laboratory Results Results Past 24 Hours Test 10/25/17 16:40 10/25/17 21:07 10/26/17 06:31 10/26/17 07:30 Range/Units Bedside Glucose 124 122 132 70-90 mg/dl [place] Level 1.6 0.6-1.2 mMOL/L Test 10/26/17 11:26 Range/Units Bedside Glucose 159 70-90 mg/dl Assessment and Plan The patient is a 62 year old female with a past medical history of schizoaffective disorder, severe KORI, and a recent history of AMS that presented to the ED with somnolence secondary to excessive Haldol intake. The patient mental status continues to improve. Acute metabolic encephalopathy - Initially 2/2 Oversedation from Haldol dose - Was initially on monthly Haldol injections although after last admission had Haldol dosing increased to daily intake - patient was close to baseline yesterday and restarted low dose [place] and Haldol - Today patient appears more lethargic and unclear etiology at this time if combination of medications and psychiatric issues - Consult psychiatry - Hypercapnic Respiratory Acidosis - [place] toxicity - now resolving - MRI Brain: No acute abnormalities - Hx of hyperammonemia - On lactulose Hypercapnic Respiratory Acidosis sec to OHS - Improved with BiPAP --> Continue while asleep [place] Toxicity - improving - [place] Level 1.6. Levels coming down very slowly - Restart lithium 300mg PO QHS - d/dennis IVF to avoid fluid overload - reported noncompliance with medications off and on. - Limited effective fluid balance range considering biventricular HF and severe right heart dysfunction while the need to keep lithium level in range. - Consulted Pulmonology for input on prognosis and palliative care consulted - input appreciated. To explore SNF placement and options of palliative care. Abnormal UA - Urine culture --> more than 3 organism. - Discontinued Rocephin Acute on chronic Biventricular Heart failure CHF - Cor Pulmonale - Holding IV fluids at this time to prevent fluid overload - Also holding lasix since 10/10 Thrombocytopenia - Follow Schizoaffective Disorder - Resume low dose Haldol and [place] - Consult Psychiatry Seizure disorder - Continue Keppra 750mg IV BID - changed to IV due to poor PO intake Type 2 DM - Lantus and ISS DVT - Heparin Dispo - [facility] will not be accepting the patient - [facility] Resuscitation Status - DNR Resident Physician Supervision Note: I interviewed and examined the patient. Discussed with Dr. Aburto and agree with findings and plan as documented in the note. Any exceptions or clarifications are listed here: None Documented By: Jeremiah Lewis no meaningful HPI or ROS obtainable today nursing notes she was alert early but then as the day progressed she got progressively more sleepy again vitalsl noted nad breathing unlabored but very somnolent bipolar - therapeutic window for meds seems razor thin - yesterday she appeared to all (including who knows her hx quite well) that she was getting manic again - with only 2 doses of 300mg lithium and 0.5mg haldol x 1 she is now somnolent again - will consult psych for assistance with this given such a narrow and delicate balance Resident Tracking Resident Involvement: Resident Care Provided Care Provided: Adult Hospital Medicine
[2017-10-26] MEDS: LITHIUM CARBONATE SR 300 MG TAB (LITHOBID) PO SCH (20:43)
[2017-10-26] MEDS: FUROSEMIDE 40 MG TAB PO SCH (20:44)
[2017-10-26] MEDS ORDERED: HALOPERIDOL 0.5 MG TAB PO SCH (21:00)
[2017-10-26 22:13] VITALS: PULSE 70; O2SAT 98
[2017-10-27] VITALS: O2SAT 95
[2017-10-27 00:24] VITALS: BP 109/64; PULSE 67; TEMP 36.2; O2SAT 95
[2017-10-27 07:27] VITALS: BP 108/72; PULSE 66; TEMP 36.8; O2SAT 95
[2017-10-27] MEDS: NYSTATIN POWDER 15GM BTL EXT SCH ×2 (09:14→20:48)
[2017-10-27] MEDS: METOPROLOL SUCC 50MG EXT REL TAB PO SCH (09:15)
[2017-10-27] MEDS: CHOLECALCIFEROL 1000 INTER.UNIT TAB PO SCH ×2 (09:15→20:48)
[2017-10-27] MEDS: IPRATROPIUM BROMIDE/ALBUTEROL respimat INH INH SCH ×4 (09:15→20:48)
[2017-10-27] MEDS: FUROSEMIDE 80 MG TAB PO SCH (09:15)
[2017-10-27] MEDS: LACTULOSE SYRUP 10 GM/15 ML BTL 473 ML PO SCH ×3 (09:15→20:48)
[2017-10-27] MEDS: LEVETIRACETAM IV 750 MG in DEXTROSE 5% 100ML 100 ML IV SCH ×2 (09:16→20:51)
[2017-10-27] MEDS: LISINOPRIL 5 MG TAB PO SCH (09:16)
[2017-10-27] MEDS: MAGNESIUM OXIDE 400 MG TAB PO SCH ×2 (09:16→20:48)
[2017-10-27] MEDS: INSULIN GLARGINE SOLOSTAR 100 UNITS/ML 3 ML PEN SC SCH (09:21)
[2017-10-27] MEDS: INSULIN ASPART 100 UNITS/ML 3 ML PEN SC SCH ×4 (09:21→20:49)
[2017-10-27] MEDS: HEPARIN SOD 5000 UNIT/0.5 ML CARP SQ SCH ×2 (09:21→20:50)
[2017-10-27] MEDS: POTASSIUM CHLORIDE 20 MEQ TABCR PO SCH (12:17)
--- NOTE | 2017-10-27 13:00 | Psychiatric Consultation ---
Consultation Date of Consultation October 27, 2017. Identifying Data 62-year-old female with a history of schizoaffective disorder, bipolar type who sees Dr. Urias at [facility], has multiple comorbid medical problems, and is admitted with metabolic encephalopathy. Psychiatry has been consulted for assistance in managing her medications. Chief Complaint "Good ". History of Present Illness The patient is known to me from multiple previous consultations. Dr. Peters and I both saw her last month the psychiatric consult service when she was admitted medically with delirium. She had stopped all of her medications about 3 weeks prior to admission in response to a judaism delusion. While here, she received her monthly Haldol Decanoate 100 mg injection on 10/03/2017, and was restarted on lithium carbonate 300 mg every morning and lithium carbonate ER 300 mg at bedtime. Oral haloperidol was added temporarily to assist with mood stabilization, with a plan to taper off of it after discharge. She was discharged 10/07/2017, and readmitted the following day with obtundation and difficulty breathing. Her lithium level on admission was 1.7, and she had lower extremity edema. Her Haldol and lithium were held, and restarted the following day, but Haldol was consolidated to bedtime, and then tapered off. [place] was discontinued 10/17/2017 and restarted 10/25/2017, but stopped again 2 days later. [place] levels were as high as 2.6 on 10/17/2017 , 1.8 on 10/20/2017, and 1.6 on 10/21/2017, 10/22/2017, and 10/26/2017. A lithium level was ordered today, but does not appear to have been drawn. Her last BMP was on 10/22/2017, and showed a BUN of 6 and creatinine of 0.99. She has had pulmonary consult, has hypercapnic respiratory insufficiency and pulmonary hypertension, and is on oxygen and BiPAP, with high mortality risk in the next 1 -2 years. Palliative care was consulted, and her reported that she will do fairly well at home, but then becomes belligerent, refuses to take her medications, and rapidly becomes decompensated with shortness of breath and fluid overload, and ends up in the hospital. He reported that she has declined over the past several months. She has refused recommendations for placement, stating that she wants to return home, but her said when he has hired in -home help in the past, she has refused to cooperate. He agreed to a referral to hospice, and manager social has made multiple referrals. Both myself and the liaison nurse attempted to meet with the patient, but she is limited historian and unable to provide much information. She tells me that her mood has been "good," denies symptoms of depression and radha, suicidal thoughts, homicidal thoughts, and hallucinations. She denies any concerns about her psychotropic medications. I also discussed the case with the resident physician , Dr. Aburto. At times she is refusing medications and blood draws, and has had waxing and waning attention with periods of sedation. Also reviewed her outpatient records; she has not been seen by Dr. Urias since August. Past Psychiatric History Current OP Treatment: psychiatrist (Dr. Urias at [facility]) [facility] Past Medical/Surgical History (1) Palliative care encounter (2) Altered mental status (3) [place] toxicity (4) Seizure-like activity (5) Congestive heart failure (CHF) (6) Weakness (7) Anemia (8) Anasarca (9) Bilateral lower extremity edema (10) DIAB ROSA WO COMPL, TYPE II OR UNSPEC TYPE, NOT UNCNTRLD Allergies Allergies: Coded Allergies: Penicillins (Unverified Allergy, Unknown, unknown, 10/01/17) Home Medications Scheduled Benzonatate (Tessalon Perles), 200 MG PO Q8 Cholecalciferol (Vitamin D3), 1,000 INTER.UNIT PO BID Furosemide (Furosemide), 40 MG PO QPM Furosemide (Furosemide), 80 MG PO QAM Haloperidol (Haloperidol), 2 MG PO BID Haloperidol Decanoate (Haldol Decanoate 100), 1 ML IM MONTHLY Insulin Aspart (Novolog), 0 SQ UD Insulin Glargine (Lantus Solostar), 14 UNITS SC AMPM Ipratropium-Albuterol (Combivent Respimat), 1 PUFFS INH QID Lactulose (Chronulac), 30 GM PO TID Levetiracetam (Keppra), 750 MG PO BID Lisinopril (Lisinopril), 5 MG PO QAM [place] Carbonate ([place] Carbonate), 300 MG PO QAM [place] Carbonate ([place] Carbonate ER), 300 MG PO HS Magnesium Oxide (Mag-Ox), 400 MG PO BID Metoprolol Succinate (Toprol Xl), 50 MG PO DAILY Nystatin (Nystop), 1 APPLN TOP BID Potassium Chloride (Micro-K Ext Rel), 160 MEQ PO QAM Potassium Chloride (K-Tabs), 40 MEQ PO DAILY@1200 Potassium Chloride (Micro-K Ext Rel), 80 MEQ PO QPM Scheduled PRN Polyethylene Glycol 3350 (Bulk (Polyethylene Glycol 3350), 17 GM PO DAILY PRN for Constipation Family History FH: HTN (hypertension) FH: diabetes mellitus Heart disease Smoking Use Smoking Status: Never Smoker Personal History Lives in: [place] with her Review of Systems Patient unable to participate in review of systems due to somnolence Examination Vital Signs Vital Signs Past 12 Hours Date Time Temp Pulse Resp B/P (MAP) Pulse Ox O2 Delivery O2 Flow Rate FiO2 10/27/17 09:00 Nasal Cannula 3.0 10/27/17 07:27 36.8 66 20 108/72 (84) 95 BiPAP Laboratory Results Last 24 Hours Test 10/26/17 16:24 10/26/17 20:25 10/27/17 04:44 10/27/17 07:39 Bedside Glucose 155 mg/dl 152 mg/dl 136 mg/dl Test 10/27/17 11:45 Bedside Glucose 162 mg/dl Mental Examination During interview pt is: cooperative (But somnolent and a limited historian) Appearance: appropriately dressed (Hospital gown), other (Wearing oxygen mask) Eye contact is: poor (Eyes closed for most of interview) Motor behavior is: no abnormal motor movements Speech: other (Minimal speech) Affect: constricted (Sleepy) Mood is: other ("Good") Thought process: goal directed Thought content: reality based without delusions Suicidal thought are: denied Homicidal thoughts are: denied Hallucinations: denies auditory, denies visual Cognition: other (Memory and attention impaired) Insight: impaired Judgement: impaired Impression / Recommendations Impression 62-year-old female with a history of schizoaffective disorder bipolar type who is admitted with encephalopathy in the context of multiple medical problems. She has been seen by pulmonology and palliative care, and has a poor prognosis. The family is exploring placement options and hospice. Attempts were made to continue her on her home dose of lithium, but she continues to have elevated levels indicating inability to properly metabolize or clear the medication. She has been tapered off of oral Haldol, which had been added during her last hospitalization temporarily as she had gone off her medications and was more delusional and agitated. On this admission, she has been more sedated, does not appear to be in an acute mood episode and without prominent psychotic symptoms. She should be continued on her Haldol decanoate to prevent psychiatric decompensation, and I have ordered it for 10/31/2017. Consider involving nephrology to determine the likelihood that she could tolerate lithium moving forward, as this will help us to determine whether we need to explore alternative mood stabilizing options. I will coordinate care with her outpatient psychiatrist, Dr. Urias, and we will continue to follow her while she is here in the hospital. Recommendations (1) Schizoaffective disorder, bipolar type without good prognostic features -Continue Haldol Decanoate 100 mg every 4 weeks, ordered on 10/31/2017. -Coordinate care with outpatient psychiatrist, Dr. Urias. Once disposition is determined, we can assist with scheduling a follow-up. -Hold lithium given persistent lithium toxicity (which may be contributing to encephalopathy) while exploring causes for this, and continue to monitor for mood symptoms. Consider the need for a trial of a different mood stabilizer, although Haldol can also function in that capacity. -She does not appear to be depressed, manic, or psychotic at this time, but we will continue to monitor. Of note, delirium can cause symptoms of psychosis and radha, but they would typically be waxing and waning in nature, as opposed to the more persistent symptoms consistent with a mood episode.
[2017-10-27 15:56] VITALS: BP 107/64; PULSE 78; TEMP 37.3; O2SAT 100
--- NOTE | 2017-10-27 15:59 | Family Medicine Progress Note ---
Progress Note Date of Service October 27, 2017. Subjective Pt evaluation today including: conversation w/ patient, physical exam, chart review, lab review, review of studies Pain: No pain reported this morning Voiding: no voiding problems, no incontinence Patient is resting comfortably in bed this morning with no acute complaints. Appears more alert than yesterday and is not displaying any behavioral abnormalities. She does continue to appear lethargic but was alert and oriented today. Plan on having psychiatry follow with the patient. Constitutional: No fever, No chills, No sweats Respiratory: No cough, No sputum Cardiovascular: No chest pain, No palpitations Abdomen: No pain, No nausea, No vomiting, No diarrhea Skin: No rash Medications Current Inpatient Medications Medications (Trade) Dose Ordered Sig/Nanette Route Start Time Stop Time Status Last Admin Dose Admin Insulin Glargine (Lantus Solostar Pen) 8 units DAILY SC 10/08/17 18:00 11/07/17 17:59 10/27/17 09:21 8 UNITS Albuterol/ Ipratropium (Combivent Respimat Inh) 1 puffs QID INH 10/08/17 21:00 11/07/17 20:59 10/27/17 12:17 1 PUFFS Levetiracetam (Keppra Tab) 750 mg BID PO 10/08/17 21:00 11/07/17 20:59 Future Hold 10/14/17 09:32 750 MG Lisinopril (Zestril Tab) 5 mg QAM PO 10/09/17 09:00 11/08/17 08:59 10/27/17 09:16 5 MG Magnesium Oxide (Mag-Ox Tab) 400 mg BID PO 10/08/17 21:00 11/07/17 20:59 10/27/17 09:16 400 MG Metoprolol Succinate (Toprol Xl Tab) 50 mg DAILY PO 10/09/17 09:00 11/08/17 08:59 10/27/17 09:15 50 MG Nystatin (Mycostatin Powder) 1 appln BID EXT 10/08/17 21:00 11/07/17 20:59 10/27/17 09:14 1 APPLN Potassium Chloride (Klor-Con Tab) 80 meq QPM PO 10/08/17 21:00 11/07/17 20:59 Future Hold 10/08/17 20:53 80 MEQ Potassium Chloride (Klor-Con Tab) 160 meq QAM PO 10/09/17 09:00 11/08/17 08:59 Future Hold 10/10/17 08:29 160 MEQ Polyethylene (Miralax Powder Packet) 17 gm DAILY PRN PO 10/08/17 15:45 11/07/17 15:44 Heparin Sodium (Porcine) (Heparin Sq 5000 Unit/0.5ml) 5,000 unit Q12 SQ 10/08/17 21:00 11/07/17 20:59 10/27/17 09:21 5,000 UNIT Acetaminophen (Tylenol Tab) 650 mg Q4H PRN PO 10/08/17 15:45 11/07/17 15:44 10/26/17 08:28 650 MG Al Hydrox/Mg Hydrox/Simethicone (Maalox Max Susp) 15 ml Q4H PRN PO 10/08/17 15:45 11/07/17 15:44 Magnesium Hydroxide (Milk Of Magnesia Susp) 30 ml Q12H PRN PO 10/08/17 15:45 11/07/17 15:44 Ondansetron HCl (Zofran Inj) 4 mg Q6H PRN IV 10/08/17 15:45 11/07/17 15:44 Glucose (Glucose 40% Gel) 15-30 GRAMS 15 GRAMS... UD PRN PO 10/08/17 15:45 11/07/17 15:44 10/09/17 06:19 15 GM Glucose (Glucose Chew Tab) 4-8 Tablets 4 Tabl... UD PRN PO 10/08/17 15:45 11/07/17 15:44 Dextrose (Dextrose 50% 50ML Syringe) 25-50ML OF 50% DW IV FOR... UD PRN IV 10/08/17 15:45 11/07/17 15:44 10/09/17 06:47 25 ML Glucagon (Glucagon Inj) 1 mg UD PRN SQ 10/08/17 15:45 11/07/17 15:44 Furosemide 40 mg/ Syringe 4 ml @ 4 mls/min BID IV 10/08/17 21:00 11/07/17 20:59 Future Hold 10/10/17 19:55 4 MLS/MIN Miscellaneous (Iv Fluids Completed) 1 ea PRN PRN N/A 10/08/17 19:30 10/08/18 19:29 Insulin Aspart (novoLOG ASPART) SLIDING SCALE If C... ACHS SC 10/09/17 16:30 11/08/17 16:29 10/27/17 12:51 2 UNITS [place] Carbonate (Lithobid Tab) 300 mg HS PO 10/10/17 21:00 11/09/17 20:59 Future Hold 10/26/17 20:43 300 MG [place] Carbonate ([place] Carbonate Tab) 300 mg QAM PO 10/13/17 09:00 11/12/17 08:59 Future Hold 10/16/17 09:27 300 MG Lactulose (Chronulac Syrup) 40 gm TID PO 10/13/17 20:00 11/07/17 20:59 10/27/17 13:47 40 GM Levetiracetam 750 mg/Dextrose 107.5 ml @ 420 mls/hr Q12 IV 10/15/17 09:00 11/14/17 08:59 10/27/17 09:16 420 MLS/HR Furosemide (Lasix Tab) 40 mg QPM PO 10/25/17 21:00 11/24/17 20:59 10/26/17 20:44 40 MG Furosemide (Lasix Tab) 80 mg QAM PO 10/26/17 08:00 11/25/17 07:59 10/27/17 09:15 80 MG Cholecalciferol (Vitamin D Tab) 1,000 inter.unit BID PO 10/25/17 20:00 11/24/17 19:59 10/27/17 09:15 1,000 INTER.UNIT Miscellaneous Information (Order Awaiting Action) 1 ea QS N/A 10/25/17 16:00 11/24/17 15:59 Potassium Chloride (Klor-Con Tab) 40 meq DAILY@1200 PO 10/26/17 12:00 11/25/17 11:59 10/27/17 12:17 40 MEQ Haloperidol (Haldol Tab) 0.5 mg DAILY PRN PO 10/26/17 21:15 11/25/17 21:14 Haloperidol (Haldol Tab) 0.5 mg HS PO 10/27/17 21:00 11/26/17 20:59 Haloperidol Decanoate (Haldol Decanoate Inj) 100 mg Q4WK@0900 IM 10/31/17 09:00 11/30/17 08:59 Objective Vital Signs Date Time Temp Pulse Resp B/P (MAP) Pulse Ox O2 Delivery O2 Flow Rate FiO2 10/27/17 09:00 Nasal Cannula 3.0 10/27/17 07:27 36.8 66 20 108/72 (84) 95 BiPAP 10/27/17 00:24 36.2 67 20 109/64 (79) 95 BiPAP 2.0 10/27/17 00:00 95 BiPAP 3.0 10/26/17 22:13 70 98 3.0 10/26/17 19:45 Nasal Cannula 3.0 10/26/17 16:00 Nasal Cannula 3.0 Physical Exam General Appearance: + pertinent finding (More alert as compared to yesterday but continues to appear mildly lethargic) Eyes: normal inspection, + pertinent finding (ptosis) Neck: supple, no carotid bruits Respiratory/Chest: chest non-tender, lungs clear, normal breath sounds Cardiovascular: regular rate, rhythm, no edema, no gallop Abdomen: normal bowel sounds, non tender, soft 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: normal mood/affect, oriented x 3, + pertinent finding ( mildly lethargic) Laboratory Results Results Past 24 Hours Test 10/26/17 16:24 10/26/17 20:25 10/27/17 04:44 10/27/17 07:39 Range/Units Bedside Glucose 155 152 136 70-90 mg/dl Test 10/27/17 11:45 Range/Units Bedside Glucose 162 70-90 mg/dl Assessment and Plan The patient is a 62 year old female with a past medical history of schizoaffective disorder, severe KORI, and a recent history of AMS that presented to the ED with somnolence secondary to excessive Haldol intake. The patient mental status continues to improve. Acute metabolic encephalopathy - Evaluated by psychiatry today who will restart weekly Haldol injections but continue to hold [place] - Initially 2/2 Oversedation from Haldol dose - Was initially on monthly Haldol injections although after last admission Haldol dosing increased to daily intake - Patient continues to have waxing and waning alertness - Hypercapnic Respiratory Acidosis - [place] toxicity - now resolving - MRI Brain: No acute abnormalities - Hx of hyperammonemia - On lactulose Hypercapnic Respiratory Acidosis sec to OHS - Improved with BiPAP --> Continue while asleep [place] Toxicity - improving - [place] Level 1.6. Levels coming down very slowly - Restart lithium 300mg PO QHS - d/dennis IVF to avoid fluid overload - reported noncompliance with medications off and on. - Limited effective fluid balance range considering biventricular HF and severe right heart dysfunction while the need to keep lithium level in range. - Consulted Pulmonology for input on prognosis and palliative care consulted - input appreciated. To explore SNF placement and options of palliative care. Abnormal UA - Urine culture --> more than 3 organism. - Discontinued Rocephin Acute on chronic Biventricular Heart failure CHF - Cor Pulmonale - Holding IV fluids at this time to prevent fluid overload - Also holding lasix since 10/10 Thrombocytopenia - Follow Schizoaffective Disorder - Resume low dose Haldol and [place] - Consult Psychiatry Seizure disorder - Continue Keppra 750mg IV BID - changed to IV due to poor PO intake Type 2 DM - Lantus and ISS DVT proph - Heparin Dispo - [facility] will not be accepting the patient - Referral to [facility] and [facility] Resuscitation Status - DNR Resident Physician Supervision Note: I interviewed and examined the patient. Discussed with Dr. Aburto and agree with findings and plan as documented in the note. Any exceptions or clarifications are listed here: None Documented By: Jeremiah Lewis feeling better today eating better still seems to have narrow window between doing well and being oversedated d/w re psych consult - he appreciates vitals noted nad breathing unlabored no pallor or icterus more alert today bipolar, AMS, sedation, hypercapnea -continue to work on balance w meds, then work towards placement after she's more stabilized otherwise as above Resident Tracking Resident Involvement: Resident Care Provided Care Provided: Adult Hospital Medicine
[2017-10-27 20:02] VITALS: BP 104/61; PULSE 71; TEMP 36.9; O2SAT 97
[2017-10-27] MEDS: HALOPERIDOL 0.5 MG TAB PO SCH (20:48)
[2017-10-27] MEDS: FUROSEMIDE 40 MG TAB PO SCH (20:49)
[2017-10-27 21:52] VITALS: PULSE 67; O2SAT 96
[2017-10-28] VITALS (7 sets, daily range): BP systolic 85–112; BP diastolic 49–73; PULSE 61–73; TEMP 36.4–37.1; O2SAT 95–98
[2017-10-28] MEDS: ACETAMINOPHEN 325 MG TAB PO PRN (06:29)
[2017-10-28] MEDS: NYSTATIN POWDER 15GM BTL EXT SCH ×2 (07:49→20:15)
[2017-10-28] MEDS: IPRATROPIUM BROMIDE/ALBUTEROL respimat INH INH SCH ×4 (07:49→20:16)
[2017-10-28] MEDS: CHOLECALCIFEROL 1000 INTER.UNIT TAB PO SCH ×2 (07:50→20:17)
[2017-10-28] MEDS: LISINOPRIL 5 MG TAB PO SCH (07:50)
[2017-10-28] MEDS: METOPROLOL SUCC 50MG EXT REL TAB PO SCH (07:50)
[2017-10-28] MEDS: FUROSEMIDE 80 MG TAB PO SCH (07:50)
[2017-10-28] MEDS: LACTULOSE SYRUP 10 GM/15 ML BTL 473 ML PO SCH ×3 (07:51→20:16)
[2017-10-28] MEDS: MAGNESIUM OXIDE 400 MG TAB PO SCH ×2 (07:51→20:16)
[2017-10-28] MEDS: LEVETIRACETAM IV 750 MG in DEXTROSE 5% 100ML 100 ML IV SCH (07:59)
[2017-10-28] MEDS: HEPARIN SOD 5000 UNIT/0.5 ML CARP SQ SCH ×2 (08:02→22:14)
[2017-10-28] MEDS: INSULIN GLARGINE SOLOSTAR 100 UNITS/ML 3 ML PEN SC SCH (08:18)
[2017-10-28] MEDS: INSULIN ASPART 100 UNITS/ML 3 ML PEN SC SCH ×4 (08:18→22:14)
[2017-10-28] MEDS: POTASSIUM CHLORIDE 20 MEQ TABCR PO SCH (12:35)
--- NOTE | 2017-10-28 17:24 | Progress Note ---
Subjective Date of Service: October 28, 2017. Subjective Pt evaluation today including: conversation w/ patient, physical exam, chart review, lab review, review of inpatient medication list seems to be about the same, no real meaningful HPI or ROS obtainable updated who is pleased with care Problem List Medical Problems: (1) Acute CHF Status: Acute (2) Acute renal failure (ARF) Status: Acute (3) Altered mental status Status: Acute (4) Change in mental status Status: Acute (5) CHF (congestive heart failure) Status: Acute (6) CHF (congestive heart failure) Status: Acute (7) CHF exacerbation Status: Acute (8) CO2 retention Status: Acute (9) Dehydration Status: Acute (10) DKA (diabetic ketoacidoses) Status: Acute (11) Elevated lithium level Status: Acute (12) Elevated troponin Status: Acute (13) Extrapyramidal and movement disorder Status: Acute (14) Fall Status: Acute (15) Hyperammonemia Status: Acute (16) Hyperammonemia Status: Acute (17) Hyperammonemia Permanent Comment: Non cirrhotic hyperammonemia Status: Acute (18) Hyperammonemia Status: Acute (19) Hypercalcemia Status: Acute (20) Hypercarbia Status: Acute (21) Hypercarbia Status: Acute (22) Hypercarbia Status: Acute (23) Hyperglycemia Status: Acute (24) Hyperglycemia Status: Acute (25) Hyperglycemia without ketosis Status: Acute (26) Hyperkalemia Status: Acute (27) Hyperosmolality Status: Acute (28) Hypoglycemia Status: Acute (29) Hypokalemia Status: Acute (30) Hypokalemia Status: Acute (31) Hyponatremia Status: Acute (32) Hyponatremia Status: Acute (33) Hyponatremia Status: Acute (34) Hypoxia Status: Acute (35) Hypoxia Status: Acute (36) Left arm swelling Status: Acute (37) Lower extremity weakness Status: Acute (38) Renal insufficiency Status: Acute (39) Seizure Status: Acute (40) SOB (shortness of breath) Status: Acute (41) Systolic CHF, acute on chronic Status: Acute (42) Weakness Status: Acute Review of Systems ROS otherwise unobtainable except for as above Objective Vital Signs Date Time Temp Pulse Resp B/P (MAP) Pulse Ox O2 Delivery O2 Flow Rate FiO2 10/28/17 16:00 Nasal Cannula 3.0 5/18/18 15:21 37.1 72 18 85/49 (61) 97 Nasal Cannula 3.0 10/28/17 12:30 37.0 61 22 96/58 (71) 98 Nasal Cannula 2.0 10/28/17 08:00 Nasal Cannula 3.0 10/28/17 02:00 96 CPAP 10/28/17 00:46 36.9 64 18 100/63 (75) 96 CPAP 10/27/17 21:52 67 96 3.0 10/27/17 20:02 36.9 71 20 104/61 (75) 97 Nasal Cannula 2.0 Physical Exam General Appearance: no apparent distress Neck: trachea midline Respiratory/Chest: no respiratory distress, no accessory muscle use Skin: normal color, warm/dry Laboratory Results Last 24 Hours Test 10/27/17 20:45 10/28/17 07:40 10/28/17 11:33 10/28/17 16:48 Bedside Glucose 137 mg/dl 101 mg/dl 124 mg/dl 125 mg/dl Assessment and Plan Acute metabolic encephalopathy - seems to be multifactorial w lithium and possibly haldol effects as well as hypercapnea (and also probably some effects of simply having been hospitalized so long) - overall trend is stability out of her prior pattern of severe somnolence, but still seems to have a very delicate balance between controlling bipolar and creating encephalopathy Schizoaffective Disorder / bipolar - current management per psych Hypercapnic Respiratory Acidosis sec to OHS - Improved with BiPAP --> Continue while asleep, overall stable [place] Toxicity - improving - uncertain if there are other options for bipolar than this - await further input from psych - consult nephro - ?any nephrogenic reasons i'm missing that would limit or change lithium use Abnormal UA - Urine culture --> more than 3 organism. - Discontinued Rocephin chronic Biventricular Heart failure CHF - stable, continue base creatinine Thrombocytopenia - Follow Seizure disorder - Continue Keppra Type 2 DM - Lantus and ISS, continue to follow DVT proph - Heparin SQ Dispo - need to have a more stable psych and mental situation then work towards rehab or SNF/rehab Resuscitation Status - DNR Continued [facility] stay due to: ambulation difficulties Discharge planning: uncertain
[2017-10-28] MEDS: FUROSEMIDE 40 MG TAB PO SCH (20:17)
[2017-10-28] MEDS: LEVETIRACETAM ORAL SOLN 100MG/ML PO SCH (20:17)
[2017-10-28] MEDS: HALOPERIDOL 0.5 MG TAB PO SCH (20:17)
[2017-10-28] MEDS ORDERED: LEVETIRACETAM ORAL SOLN 100MG/ML PO SCH (21:00)
[2017-10-29] MEDS: NYSTATIN POWDER 15GM BTL EXT SCH ×2 (07:35→21:24)
[2017-10-29] MEDS: LEVETIRACETAM ORAL SOLN 100MG/ML PO SCH ×2 (07:35→21:26)
[2017-10-29] MEDS: METOPROLOL SUCC 50MG EXT REL TAB PO SCH (07:35)
[2017-10-29] MEDS: IPRATROPIUM BROMIDE/ALBUTEROL respimat INH INH SCH ×4 (07:35→21:24)
[2017-10-29] MEDS: CHOLECALCIFEROL 1000 INTER.UNIT TAB PO SCH ×2 (07:35→21:27)
[2017-10-29] MEDS: LISINOPRIL 5 MG TAB PO SCH (07:35)
[2017-10-29] MEDS: LACTULOSE SYRUP 10 GM/15 ML BTL 473 ML PO SCH ×3 (07:36→21:24)
[2017-10-29] MEDS: FUROSEMIDE 80 MG TAB PO SCH (07:36)
[2017-10-29] MEDS: MAGNESIUM OXIDE 400 MG TAB PO SCH ×2 (07:36→21:27)
[2017-10-29 08:12] VITALS: BP 107/72; PULSE 65; TEMP 36.5; O2SAT 97
[2017-10-29] MEDS: HEPARIN SOD 5000 UNIT/0.5 ML CARP SQ SCH ×2 (08:49→21:31)
[2017-10-29] MEDS: INSULIN GLARGINE SOLOSTAR 100 UNITS/ML 3 ML PEN SC SCH (08:50)
[2017-10-29] MEDS: INSULIN ASPART 100 UNITS/ML 3 ML PEN SC SCH ×4 (08:53→21:30)
--- NOTE | 2017-10-29 11:12 | Family Medicine Progress Note ---
Progress Note Date of Service October 29, 2017. Subjective Pt evaluation today including: conversation w/ patient Voiding: no voiding problems No concerns Wants to go home Constitutional: No fever, No chills Eyes: No worsening of vision Respiratory: No cough, No sputum, No shortness of breath, No dyspnea on exertion Cardiovascular: No chest pain Abdomen: No pain, No nausea Medications Medications (Trade) Dose Ordered Sig/Nanette Route Start Time Stop Time Status Last Admin Dose Admin Levetiracetam (Keppra Soln) 750 mg Q12 PO 10/28/17 21:00 11/27/17 20:59 10/29/17 07:35 750 MG Objective Vital Signs Date Time Temp Pulse Resp B/P (MAP) Pulse Ox O2 Delivery O2 Flow Rate FiO2 10/29/17 10:00 BiPAP 3.0 10/29/17 08:12 36.5 65 20 107/72 (84) 97 3.0 10/29/17 00:00 BiPAP 3.0 10/28/17 23:52 73 95 3.0 10/28/17 23:04 36.4 64 18 112/73 (86) 98 Nasal Cannula 3.0 10/28/17 20:00 Nasal Cannula 3.0 10/28/17 17:38 102/70 (81) 10/28/17 16:00 Nasal Cannula 3.0 10/28/17 15:21 37.1 72 18 85/49 (61) 97 Nasal Cannula 3.0 Physical Exam General Appearance: no apparent distress Eyes: PERRL, EOMI ENT: hearing grossly normal Respiratory/Chest: lungs clear, normal breath sounds, no respiratory distress, no accessory muscle use Cardiovascular: regular rate, rhythm, no edema Extremities: non-tender, no pedal edema 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: alert, oriented x 3 Laboratory Results Last 24 Hours Test 10/28/17 16:48 10/28/17 20:56 10/29/17 04:44 10/29/17 08:03 Bedside Glucose 125 mg/dl 142 mg/dl 124 mg/dl Test 10/29/17 12:09 Bedside Glucose 164 mg/dl Assessment and Plan The patient is a 62 year old female with a past medical history of schizoaffective disorder, severe KORI, and a recent history of AMS that presented to the ED with somnolence secondary to excessive Haldol intake. The patient mental status is stable, but does have tendency to wax and wane Acute metabolic encephalopathy - Combination of haldol overdose, lithium tox (unclear etiology), hypercapnia - Patient continues to have waxing and waning alertness but overall is more stable - Hypercapnic Respiratory Acidosis - resolved with BiPap - [place] toxi- levels remain elevated, Will consult nephrology (Psychiatry also recommends this) - MRI Brain: No acute abnormalities - Hx of hyperammonemia - On lactulose Schizoaffective Disorder / bipolar - current management per psych Hypercapnic Respiratory Acidosis sec to OHS - Improved with BiPAP --> Continue while asleep, overall stable [place] Toxicity - improving - uncertain if there are other options for bipolar than this - await further input from psych - consult nephro - lithium levels remain elevated Abnormal UA - Urine culture --> more than 3 organism. - Discontinued Rocephin Acute on chronic Biventricular Heart failure CHF - stable, continue base creatinine - Cor pulmonale - Continue Lasix - Consulted Pulmonology for input on prognosis and palliative care consulted - input appreciated. Exploring SNF placement and options of palliative care. Thrombocytopenia - stable Seizure disorder - Continue Keppra Type 2 DM - Lantus and ISS, continue to follow DVT proph - Heparin SQ Dispo - Working towards SNF Resuscitation Status - DNR Resident Physician Supervision Note: I interviewed and examined the patient. Discussed with Dr. Marcum and agree with findings and plan as documented in the note. Any exceptions or clarifications are listed here: None Documented By: Jeremiah Lewis more talkative, still doesn't want to go to rehab or SNF d/w psychiatry - input apprecaited. continue close watchful wating and haldol. work to rehab type placement, ongonig coordination of psych care regardless of setting to allow for better management overall vitals noted nad more talkative, no pallor or icterus, breathing unlabored bipolar, AMS w sedation, recent radha -work towards overall better control -ask nephro for opinion on slow lithium clearance -continue haldol -?rehab may be most appropriate setting over SNF since daily physician vissits would aid in coordination w psych for med management
--- NOTE | 2017-10-29 12:40 | Psychiatric Progress Notes ---
Progress Note Date of Service October 29, 2017. Interval History 62-year-old female with a history of schizoaffective disorder, bipolar type who sees Dr. Urias at [facility], has multiple comorbid medical problems, and is admitted with metabolic encephalopathy. Psychiatry has been consulted for assistance in managing her medications. Chief Complaint "I am good thank you ". Subjective Patient was seen & assessed and interval progress reviewed. Case discussed with Dr. Lewis, and with the patient's who was at the bedside. She remains quite somnolent, sleeping much of the day, has been taking her medications, and eating, although she has had some difficulty with that and takes a long time to chew her food. She was able to awaken enough to state that she is doing well, denies concerns about her mood, and the remainder of the discussion was with her , as she was dozing. states they are hoping for placement, and we reviewed concerns with her psychiatric medications, namely that her lithium levels have been supratherapeutic and it is not clear if she can continue to take that medication. It has been held for now, and mood remains stable. She is due for Haldol Decanoate shot on Tuesday. Mental Status Exam During interview pt is: cooperative (But somnolent and a limited historian), other (Sleeping) Appearance: appropriately dressed (Hospital gown) Motor behavior is: no abnormal motor movements Speech: other (Minimal speech) Affect: constricted (Sleepy) Mood is: other ("Good") Thought process: goal directed Thought content: reality based without delusions Suicidal thought are: denied Homicidal thoughts are: denied Hallucinations: denies auditory, denies visual Cognition: other (Memory and attention impaired) Insight: impaired Judgement: impaired Impression 62-year-old female with a history of schizoaffective disorder bipolar type who is admitted with encephalopathy in the context of multiple medical problems. She has been seen by pulmonology and palliative care, and has a poor prognosis. The family is exploring placement options and hospice. Attempts were made to continue her on her home dose of lithium, but she continues to have elevated levels indicating inability to properly metabolize or clear the medication. She has been tapered off of oral Haldol, which had been added during her last hospitalization temporarily as she had gone off her medications and was more delusional and agitated. On this admission, she has been more sedated, and has been stable psychiatrically. She should be continued on her Haldol decanoate to prevent psychiatric decompensation, and I have ordered it for 10/31/2017. [place] was discontinued due to supratherapeutic levels , it may be helpful to involve nephrology to determine the likelihood that she could tolerate lithium moving forward, as this will help us to determine whether we need to explore alternative mood stabilizing options. Plan (1) Schizoaffective disorder, bipolar type without good prognostic features -Continue Haldol Decanoate 100 mg every 4 weeks, ordered on 10/31/2017. -Coordinate care with outpatient psychiatrist, Dr. Urias. Once disposition is determined, we can assist with scheduling a follow-up. -Hold lithium given persistent lithium toxicity (which may be contributing to encephalopathy) while exploring causes for this, and continue to monitor for mood symptoms. Consider the need for a trial of a different mood stabilizer, although Haldol can also function in that capacity. -She does not appear to be depressed, manic, or psychotic at this time, but we will continue to monitor. Of note, delirium can cause symptoms of psychosis and radha, but they would typically be waxing and waning in nature, as opposed to the more persistent symptoms consistent with a mood episode. 10/30 -discussed case with Dr. Lewis, including possible assistance from nephrology to determine the likelihood that she could safely tolerate lithium, given persistent high levels. [place] has been held since 10/27/2017, and she has not had a lithium level since then, as she has refused blood draws. Last lithium level and 10/26/2017 was 1.6. She remains quite somnolent, so it does not appear that the lithium itself was playing a large role in her sedation. -Haldol decanoate scheduled for Tuesday. -No psychiatric contraindication to snf placement. May be discharged once medically appropriate. -Once disposition is known, we can assist with coordinating aftercare with Dr. Urias. Visit Code E&M Code: 73710 Data Vital Signs Last 24 Hrs: Date Time Temp Pulse Resp B/P (MAP) Pulse Ox O2 Delivery O2 Flow Rate FiO2 10/29/17 10:00 BiPAP 3.0 10/29/17 08:12 36.5 65 20 107/72 (84) 97 3.0 10/29/17 00:00 BiPAP 3.0 10/28/17 23:52 73 95 3.0 10/28/17 23:04 36.4 64 18 112/73 (86) 98 Nasal Cannula 3.0 10/28/17 20:00 Nasal Cannula 3.0 10/28/17 17:38 102/70 (81) 10/28/17 16:00 Nasal Cannula 3.0 10/28/17 15:21 37.1 72 18 85/49 (61) 97 Nasal Cannula 3.0 Meds Administered Last 24 Hrs: Meds Administered (Past 24Hrs) Medications (Trade) Dose Ordered Sig/Nanette Route Start Time Stop Time Status Last Admin Dose Admin Haloperidol (Haldol Tab) 0.5 mg HS PO 10/27/17 21:00 11/26/17 20:59 10/28/17 20:17 0.5 MG Levetiracetam (Keppra Soln) 750 mg Q12 PO 10/28/17 21:00 11/27/17 20:59 10/29/17 07:35 750 MG Lab Results Last 24 Hrs: Last 24 Hours Test 10/28/17 16:48 10/28/17 20:56 10/29/17 04:44 10/29/17 08:03 Bedside Glucose 125 mg/dl 142 mg/dl 124 mg/dl Test 10/29/17 12:09 Bedside Glucose 164 mg/dl
[2017-10-29] MEDS: POTASSIUM CHLORIDE 20 MEQ TABCR PO SCH (13:10)
[2017-10-29 15:10] VITALS: BP 118/74; PULSE 74; TEMP 36.6; O2SAT 99
[2017-10-29] MEDS: HALOPERIDOL 0.5 MG TAB PO SCH (21:25)
[2017-10-29] MEDS: FUROSEMIDE 40 MG TAB PO SCH (21:26)
[2017-10-29 23:20] VITALS: PULSE 65; O2SAT 100
[2017-10-30 00:01] VITALS: BP_SYST 104; BP_SYST 111; BP_DIAS 62; BP_DIAS 63; PULSE 68; PULSE 80; TEMP 36.7; TEMP 36.8; O2SAT 97
[2017-10-30] MEDS: IPRATROPIUM BROMIDE/ALBUTEROL respimat INH INH SCH ×4 (07:51→20:43)
[2017-10-30] MEDS: NYSTATIN POWDER 15GM BTL EXT SCH ×2 (07:51→20:43)
[2017-10-30] MEDS: FUROSEMIDE 80 MG TAB PO SCH (07:52)
[2017-10-30] MEDS: METOPROLOL SUCC 50MG EXT REL TAB PO SCH (07:52)
[2017-10-30] MEDS: CHOLECALCIFEROL 1000 INTER.UNIT TAB PO SCH ×2 (07:52→20:44)
[2017-10-30] MEDS: MAGNESIUM OXIDE 400 MG TAB PO SCH ×2 (07:53→20:45)
[2017-10-30] MEDS: LACTULOSE SYRUP 10 GM/15 ML BTL 473 ML PO SCH ×3 (07:53→20:45)
[2017-10-30] MEDS: LEVETIRACETAM ORAL SOLN 100MG/ML PO SCH ×2 (07:54→20:43)
[2017-10-30] MEDS: LISINOPRIL 5 MG TAB PO SCH (07:57)
[2017-10-30] MEDS: HEPARIN SOD 5000 UNIT/0.5 ML CARP SQ SCH ×2 (08:02→20:52)
[2017-10-30] MEDS: INSULIN GLARGINE SOLOSTAR 100 UNITS/ML 3 ML PEN SC SCH (08:12)
[2017-10-30] MEDS: INSULIN ASPART 100 UNITS/ML 3 ML PEN SC SCH ×4 (08:13→20:42)
[2017-10-30 08:24] VITALS: BP 115/72; PULSE 74; TEMP 36.6; O2SAT 99
--- NOTE | 2017-10-30 08:36 | Family Medicine Progress Note ---
Progress Note Date of Service October 30, 2017. Subjective Pt evaluation today including: conversation w/ patient no concerns Constitutional: No fever, No chills Eyes: No worsening of vision Respiratory: No cough, No sputum, No shortness of breath, No dyspnea on exertion Cardiovascular: No chest pain Abdomen: No pain, No nausea, No vomiting Female : No dysuria, No urinary frequency Objective Vital Signs Date Time Temp Pulse Resp B/P (MAP) Pulse Ox O2 Delivery O2 Flow Rate FiO2 10/30/17 00:01 36.7 68 20 111/62 (78) 97 Nasal Cannula 3.0 10/30/17 00:00 BiPAP 3.0 10/29/17 23:20 65 100 3.0 10/29/17 20:00 Nasal Cannula 3.0 10/29/17 16:00 Nasal Cannula 3.0 10/29/17 15:10 36.6 74 20 118/74 (89) 99 3.0 10/29/17 10:00 BiPAP 3.0 10/29/17 08:12 36.5 65 20 107/72 (84) 97 3.0 Physical Exam General Appearance: no apparent distress Eyes: PERRL, EOMI ENT: hearing grossly normal Neck: supple Respiratory/Chest: no respiratory distress, no accessory muscle use Cardiovascular: regular rate, rhythm Abdomen: normal bowel sounds, non tender, soft Extremities: non-tender 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: no motor/sensory deficits, oriented x 3 Assessment and Plan The patient is a 62 year old female with a past medical history of schizoaffective disorder, severe KORI, and a recent history of AMS that presented to the ED with somnolence secondary to excessive Haldol intake. The patient mental status is stable, but does have tendency to wax and wane. Acute metabolic encephalopathy - Combination of haldol overdose, lithium tox (unclear etiology), hypercapnia - Patient continues to have waxing and waning alertness but overall is more stable - Hypercapnic Respiratory Acidosis - resolved with BiPap - [place] toxi- levels remain elevated, Nephrology consult pending (Psychiatry also recommends this) - MRI Brain: No acute abnormalities - Hx of hyperammonemia - On lactulose Schizoaffective Disorder / bipolar - current management per psych Hypercapnic Respiratory Acidosis sec to OHS - Improved with BiPAP --> Continue while asleep, overall stable [place] Toxicity - uncertain if there are other options for bipolar than this - consult nephro - lithium levels remain elevated - Repeat BMP Abnormal UA - Urine culture --> more than 3 organism. - Discontinued Rocephin Acute on chronic Biventricular Heart failure CHF - stable, continue base creatinine - Cor pulmonale - Continue Lasix - Consulted Pulmonology for input on prognosis and palliative care consulted - input appreciated. Exploring SNF placement and options of palliative care. Thrombocytopenia - stable - Repeat CBC Seizure disorder - Continue Keppra Type 2 DM - Lantus and ISS, continue to follow DVT proph - Heparin SQ Dispo - Working towards rehab Resuscitation Status - DNR Resident Physician Supervision Note: I interviewed and examined the patient. Discussed with Dr. Marcum and agree with findings and plan as documented in the note. Any exceptions or clarifications are listed here: None Documented By: Jeremiah Lewis no new HPI or ROS. sleeping comfortably updated - expressed understanding and appreciation of care vitals noted nad breathing unlabored no pallor or icterus bipolar w delicate balance on mental status between oversedated and working towards manic (although per psych input she fortunately hasn't shown anything truly diagnostic of radha) -ongoing gentle titration of meds - but as psych noted, this does not need to be on an inpatient basis; will need ongoing coordination w psychiatry --> ideally she would transfer to [facility] for PT, daily physician visits for this purpose, and safe environment until she is well enough to be independent again. insurance previously approved rehab so since her situation has not fundamentally changed there is no clear or ethical reason that they would deny - will ask case management to work on this dispo - as above, working towards rehab once available
[2017-10-30 09:14] LABS: HEMATOCRIT 42.9 % (37-47); HEMOGLOBIN 12.8 g/dL (12.0-16.0); MEAN CELL VOLUME 91.5 fL (80-100); MEAN CORPUSCULAR HEMOGLOBIN 27.3 pg (25-34); MEAN CORPUSCULAR HGB CONC 29.8 g/dl (32-36); MEAN PLATELET VOLUME 10.3 fL (7.4-10.4); PLATELET COUNT 152 K/uL (130-400); RED CELL DISTRIBUTION WIDTH CV 19.5 % (11.5-14.5); RED CELL DISTRIBUTION WIDTH SD 64.9 fL (36.4-46.3); WHITE BLOOD COUNT 5.52 K/uL (4.8-10.8)
[2017-10-30] MEDS: ACETAMINOPHEN 325 MG TAB PO PRN ×2 (09:15→18:05)
[2017-10-30 09:47] LABS: BASO % 1.6 %; BASO ABS # 0.09 K/uL (0-0.2); EOS % 2.7 %; EOS ABS # 0.15 K/uL (0-0.5); IG# 0.26 K/uL (0.00-0.02); LYMPH % 15.4 %; LYMPH ABS # 0.85 K/uL (1.2-3.4); MONO % 11.8 %; MONO ABS # 0.65 K/uL (0.11-0.59); NEUT % 63.8 %; NEUT ABS # 3.52 K/uL (1.4-6.5)
[2017-10-30 09:53] LABS: CALCIUM 8.9 mg/dl (8.5-10.1); CREATININE 0.93 mg/dl (0.60-1.20)
[2017-10-30] MEDS: POTASSIUM CHLORIDE 20 MEQ TABCR PO SCH (13:10)
[2017-10-30 15:39] VITALS: BP 114/67; PULSE 66; TEMP 36.9; O2SAT 96
[2017-10-30 20:00] VITALS: O2SAT 96
[2017-10-30] MEDS: HALOPERIDOL 0.5 MG TAB PO SCH (20:43)
[2017-10-30] MEDS: FUROSEMIDE 40 MG TAB PO SCH (20:44)
[2017-10-30 22:04] VITALS: PULSE 66; O2SAT 100
[2017-10-30 23:08] VITALS: BP 103/67; PULSE 69; TEMP 36.4; O2SAT 97
[2017-10-31] VITALS: O2SAT 96
[2017-10-31] MEDS: ACETAMINOPHEN 325 MG TAB PO PRN ×2 (05:09→20:26)
[2017-10-31 07:20] VITALS: BP 105/71; PULSE 71; TEMP 36.9; O2SAT 100
--- NOTE | 2017-10-31 08:33 | Family Medicine Progress Note ---
Progress Note Date of Service October 31, 2017. Subjective Pt evaluation today including: conversation w/ patient, conversation w/ family , physical exam, chart review, lab review, review of studies, review of inpatient medication list Pain: denies PO Intake: adequate Voiding: no voiding problems No acute events overnight. Patient comfortable and denies new complaints Constitutional: No fever, No chills, No weakness ENT: + sore throat Respiratory: No cough, No sputum, No shortness of breath Cardiovascular: No chest pain, No edema, No palpitations Abdomen: No pain, No nausea, No vomiting, No diarrhea Female : No dysuria, No urinary frequency Medications Current Inpatient Medications Medications (Trade) Dose Ordered Sig/Nanette Route Start Time Stop Time Status Last Admin Dose Admin Insulin Glargine (Lantus Solostar Pen) 8 units DAILY SC 10/08/17 18:00 11/07/17 17:59 10/31/17 08:47 8 UNITS Albuterol/ Ipratropium (Combivent Respimat Inh) 1 puffs QID INH 10/08/17 21:00 11/07/17 20:59 10/31/17 12:30 1 PUFFS Levetiracetam (Keppra Tab) 750 mg BID PO 10/08/17 21:00 11/07/17 20:59 Future Hold 10/14/17 09:32 750 MG Lisinopril (Zestril Tab) 5 mg QAM PO 10/09/17 09:00 11/08/17 08:59 10/31/17 08:41 5 MG Magnesium Oxide (Mag-Ox Tab) 400 mg BID PO 10/08/17 21:00 11/07/17 20:59 10/31/17 08:41 400 MG Metoprolol Succinate (Toprol Xl Tab) 50 mg DAILY PO 10/09/17 09:00 11/08/17 08:59 10/31/17 08:42 50 MG Nystatin (Mycostatin Powder) 1 appln BID EXT 10/08/17 21:00 11/07/17 20:59 10/31/17 08:41 1 APPLN Potassium Chloride (Klor-Con Tab) 80 meq QPM PO 10/08/17 21:00 11/07/17 20:59 Future Hold 10/08/17 20:53 80 MEQ Potassium Chloride (Klor-Con Tab) 160 meq QAM PO 10/09/17 09:00 11/08/17 08:59 Future Hold 10/10/17 08:29 160 MEQ Polyethylene (Miralax Powder Packet) 17 gm DAILY PRN PO 10/08/17 15:45 11/07/17 15:44 Heparin Sodium (Porcine) (Heparin Sq 5000 Unit/0.5ml) 5,000 unit Q12 SQ 10/08/17 21:00 11/07/17 20:59 10/31/17 08:48 5,000 UNIT Acetaminophen (Tylenol Tab) 650 mg Q4H PRN PO 10/08/17 15:45 11/07/17 15:44 10/31/17 05:09 650 MG Al Hydrox/Mg Hydrox/Simethicone (Maalox Max Susp) 15 ml Q4H PRN PO 10/08/17 15:45 11/07/17 15:44 Magnesium Hydroxide (Milk Of Magnesia Susp) 30 ml Q12H PRN PO 10/08/17 15:45 11/07/17 15:44 Ondansetron HCl (Zofran Inj) 4 mg Q6H PRN IV 10/08/17 15:45 11/07/17 15:44 Glucose (Glucose 40% Gel) 15-30 GRAMS 15 GRAMS... UD PRN PO 10/08/17 15:45 11/07/17 15:44 10/09/17 06:19 15 GM Glucose (Glucose Chew Tab) 4-8 Tablets 4 Tabl... UD PRN PO 10/08/17 15:45 11/07/17 15:44 Dextrose (Dextrose 50% 50ML Syringe) 25-50ML OF 50% DW IV FOR... UD PRN IV 10/08/17 15:45 11/07/17 15:44 10/09/17 06:47 25 ML Glucagon (Glucagon Inj) 1 mg UD PRN SQ 10/08/17 15:45 11/07/17 15:44 Furosemide 40 mg/ Syringe 4 ml @ 4 mls/min BID IV 10/08/17 21:00 11/07/17 20:59 Future Hold 10/10/17 19:55 4 MLS/MIN Miscellaneous (Iv Fluids Completed) 1 ea PRN PRN N/A 10/08/17 19:30 10/08/18 19:29 Insulin Aspart (novoLOG ASPART) SLIDING SCALE If C... ACHS SC 10/09/17 16:30 11/08/17 16:29 10/31/17 12:31 3 UNITS [place] Carbonate (Lithobid Tab) 300 mg HS PO 10/10/17 21:00 11/09/17 20:59 Future Hold 10/26/17 20:43 300 MG [place] Carbonate ([place] Carbonate Tab) 300 mg QAM PO 10/13/17 09:00 11/12/17 08:59 Future Hold 10/16/17 09:27 300 MG Lactulose (Chronulac Syrup) 40 gm TID PO 10/13/17 20:00 11/07/17 20:59 10/31/17 12:30 40 GM Furosemide (Lasix Tab) 40 mg QPM PO 10/25/17 21:00 11/24/17 20:59 10/30/17 20:44 40 MG Furosemide (Lasix Tab) 80 mg QAM PO 10/26/17 08:00 11/25/17 07:59 10/31/17 08:42 80 MG Cholecalciferol (Vitamin D Tab) 1,000 inter.unit BID PO 10/25/17 20:00 11/24/17 19:59 10/31/17 08:42 1,000 INTER.UNIT Potassium Chloride (Klor-Con Tab) 40 meq DAILY@1200 PO 10/26/17 12:00 11/25/17 11:59 10/31/17 12:30 40 MEQ Haloperidol (Haldol Tab) 0.5 mg DAILY PRN PO 10/26/17 21:15 11/25/17 21:14 Haloperidol (Haldol Tab) 0.5 mg HS PO 10/27/17 21:00 11/26/17 20:59 10/30/17 20:43 0.5 MG Haloperidol Decanoate (Haldol Decanoate Inj) 100 mg Q4WK@0900 IM 10/31/17 09:00 11/30/17 08:59 10/31/17 08:43 100 MG Levetiracetam (Keppra Soln) 750 mg Q12 PO 10/28/17 21:00 11/27/17 20:59 10/31/17 08:42 750 MG Objective Vital Signs Date Time Temp Pulse Resp B/P (MAP) Pulse Ox O2 Delivery O2 Flow Rate FiO2 10/31/17 16:27 Nasal Cannula 3.0 10/31/17 15:45 37.4 73 18 121/65 (83) 100 Nasal Cannula 1.0 10/31/17 13:06 Nasal Cannula 3.0 10/31/17 07:20 36.9 71 16 105/71 (82) 100 Nasal Cannula 2.5 10/31/17 00:00 96 Nasal Cannula 3.0 BiPAP 10/30/17 23:08 36.4 69 20 103/67 (79) 97 CPAP 2.0 10/30/17 22:04 66 100 3.0 Laboratory Results Results Past 24 Hours Test 10/31/17 07:41 10/31/17 10:24 10/31/17 11:57 10/31/17 16:52 Range/Units Bedside Glucose 118 158 131 70-90 mg/dl Test 10/31/17 20:05 Range/Units Bedside Glucose 144 70-90 mg/dl Assessment and Plan 62 year old female with a past medical history of schizoaffective disorder, severe KORI, and a recent history of AMS that presented to the ED with somnolence secondary to excessive Haldol intake. memtal status at baseline Acute metabolic encephalopathy - multifactorial likely secondary to combination of haldol overdose, lithium toxicity, hypercapnia - [place] toxi- elevated on arrival,, last check 10/26 was 1.6, Repeat [place] level - MRI Brain: No acute abnormalities - Hx of hyperammonemia - Continue lactulose Schizoaffective Disorder / bipolar - current management per psych Hypercapnic Respiratory Acidosis sec to OHS - stable - Continue Bipap while asleep, [place] Toxicity - f/u nephrology report - Repeat BMP, [place] Level Abnormal UA - Urine culture --> more than 3 organism. - s/p treatment of Rocephin Acute on chronic Biventricular Heart failure CHF - stable, continue base creatinine - Cor pulmonale - Continue Lasix . Thrombocytopenia - stable - Repeat CBC Seizure disorder - Continue Keppra Type 2 DM - Lantus and ISS, continue to follow DVT proph - Heparin SQ Dispo - rehab pending, [facility] denied Resuscitation Status - DNR Continued [facility] stay due to: home environment unsafe for pt Discharge planning: rehab hospital Assessment/Plan Resident Physician Supervision Note: I was present with Dr. Harmon during the history and exam. I discussed the case with the resident and agree with the findings and plan as documented in the note. Any exceptions or clarifications are listed here: Pt seen and examined at bedside without new complaint. Reports no COLLINS, sensory changes, CP/palpitations or new edema. Her bipolar appears at behavioral baseline similar to previous admissions - will necessitate close follow up as outpatient for titration of medications to avoid oversedation or manic type symptoms in addition to PT. [facility] has denied this transfer on the grounds of requiring frequent MD evaluations for her psychiatric medications, but will discuss via phone regarding accommodations to this end. Msg left with insurer line. Resident Tracking Resident Involvement: Resident Care Provided Care Provided: Adult Hospital Medicine
[2017-10-31] MEDS: IPRATROPIUM BROMIDE/ALBUTEROL respimat INH INH SCH ×4 (08:41→20:27)
[2017-10-31] MEDS: MAGNESIUM OXIDE 400 MG TAB PO SCH ×2 (08:41→20:27)
[2017-10-31] MEDS: NYSTATIN POWDER 15GM BTL EXT SCH ×2 (08:41→20:29)
[2017-10-31] MEDS: LISINOPRIL 5 MG TAB PO SCH (08:41)
[2017-10-31] MEDS: LACTULOSE SYRUP 10 GM/15 ML BTL 473 ML PO SCH ×3 (08:41→20:26)
[2017-10-31] MEDS: METOPROLOL SUCC 50MG EXT REL TAB PO SCH (08:42)
[2017-10-31] MEDS: LEVETIRACETAM ORAL SOLN 100MG/ML PO SCH ×2 (08:42→20:28)
[2017-10-31] MEDS: CHOLECALCIFEROL 1000 INTER.UNIT TAB PO SCH ×2 (08:42→20:27)
[2017-10-31] MEDS: FUROSEMIDE 80 MG TAB PO SCH (08:42)
[2017-10-31] MEDS: INSULIN GLARGINE SOLOSTAR 100 UNITS/ML 3 ML PEN SC SCH (08:47)
[2017-10-31] MEDS: INSULIN ASPART 100 UNITS/ML 3 ML PEN SC SCH ×4 (08:47→20:34)
[2017-10-31] MEDS: HEPARIN SOD 5000 UNIT/0.5 ML CARP SQ SCH ×2 (08:48→20:36)
[2017-10-31] MEDS ORDERED: HALOPERIDOL DECANOATE INJ 50 MG/ML VIAL IM SCH (09:00)
[2017-10-31] MEDS: POTASSIUM CHLORIDE 20 MEQ TABCR PO SCH (12:30)
[2017-10-31 15:45] VITALS: BP 121/65; PULSE 73; TEMP 37.4; O2SAT 100
[2017-10-31] MEDS: HALOPERIDOL 0.5 MG TAB PO SCH (20:27)
[2017-10-31] MEDS: FUROSEMIDE 40 MG TAB PO SCH (20:28)
[2017-10-31 22:52] VITALS: PULSE 72; O2SAT 100
[2017-11-01] VITALS: BP 142/89; PULSE 72; TEMP 36.9; O2SAT 96
[2017-11-01 07:33] VITALS: BP 110/70; PULSE 67; TEMP 36.7; O2SAT 97
[2017-11-01] MEDS: LACTULOSE SYRUP 10 GM/15 ML BTL 473 ML PO SCH ×3 (08:00→21:24)
[2017-11-01] MEDS: IPRATROPIUM BROMIDE/ALBUTEROL respimat INH INH SCH ×4 (08:01→21:24)
[2017-11-01] MEDS: LEVETIRACETAM ORAL SOLN 100MG/ML PO SCH ×2 (08:01→21:26)
[2017-11-01] MEDS: METOPROLOL SUCC 50MG EXT REL TAB PO SCH (08:01)
[2017-11-01] MEDS: FUROSEMIDE 80 MG TAB PO SCH (08:01)
[2017-11-01] MEDS: LISINOPRIL 5 MG TAB PO SCH (08:01)
[2017-11-01] MEDS: CHOLECALCIFEROL 1000 INTER.UNIT TAB PO SCH ×2 (08:01→21:23)
[2017-11-01] MEDS: ACETAMINOPHEN 325 MG TAB PO PRN ×2 (08:01→16:37)
[2017-11-01] MEDS: MAGNESIUM OXIDE 400 MG TAB PO SCH ×2 (08:01→21:23)
[2017-11-01] MEDS: NYSTATIN POWDER 15GM BTL EXT SCH ×2 (08:02→21:24)
[2017-11-01] MEDS: HEPARIN SOD 5000 UNIT/0.5 ML CARP SQ SCH ×2 (08:03→21:28)
[2017-11-01] MEDS: INSULIN GLARGINE SOLOSTAR 100 UNITS/ML 3 ML PEN SC SCH (08:03)
[2017-11-01] MEDS: INSULIN ASPART 100 UNITS/ML 3 ML PEN SC SCH ×4 (08:04→21:00)
[2017-11-01 08:48] LABS: CALCIUM 8.7 mg/dl (8.5-10.1); CREATININE 0.84 mg/dl (0.60-1.20)
[2017-11-01] MEDS: POTASSIUM CHLORIDE 20 MEQ TABCR PO SCH (12:26)
--- NOTE | 2017-11-01 13:16 | Family Medicine Progress Note ---
Progress Note Date of Service November 01, 2017. Subjective Pt evaluation today including: conversation w/ patient, conversation w/ family , physical exam, chart review, lab review, review of studies, review of inpatient medication list Pain: denies PO Intake: adequate Voiding: no voiding problems Patient feeling significantly better. No new complaints. Constitutional: No fever, No chills Respiratory: No cough, No shortness of breath Cardiovascular: No chest pain, No edema, No palpitations Abdomen: No pain, No nausea, No vomiting, No diarrhea, No constipation Female : No dysuria, No urinary frequency, No hematuria Medications Current Inpatient Medications Medications (Trade) Dose Ordered Sig/Nanette Route Start Time Stop Time Status Last Admin Dose Admin Insulin Glargine (Lantus Solostar Pen) 8 units DAILY SC 10/08/17 18:00 11/07/17 17:59 11/01/17 08:03 8 UNITS Albuterol/ Ipratropium (Combivent Respimat Inh) 1 puffs QID INH 10/08/17 21:00 11/07/17 20:59 11/01/17 16:37 1 PUFFS Levetiracetam (Keppra Tab) 750 mg BID PO 10/08/17 21:00 11/07/17 20:59 Future Hold 10/14/17 09:32 750 MG Lisinopril (Zestril Tab) 5 mg QAM PO 10/09/17 09:00 11/08/17 08:59 11/01/17 08:01 5 MG Magnesium Oxide (Mag-Ox Tab) 400 mg BID PO 10/08/17 21:00 11/07/17 20:59 11/01/17 08:01 400 MG Metoprolol Succinate (Toprol Xl Tab) 50 mg DAILY PO 10/09/17 09:00 11/08/17 08:59 11/01/17 08:01 50 MG Nystatin (Mycostatin Powder) 1 appln BID EXT 10/08/17 21:00 11/07/17 20:59 11/01/17 08:02 1 APPLN Potassium Chloride (Klor-Con Tab) 80 meq QPM PO 10/08/17 21:00 11/07/17 20:59 Future Hold 10/08/17 20:53 80 MEQ Potassium Chloride (Klor-Con Tab) 160 meq QAM PO 10/09/17 09:00 11/08/17 08:59 Future Hold 10/10/17 08:29 160 MEQ Polyethylene (Miralax Powder Packet) 17 gm DAILY PRN PO 10/08/17 15:45 11/07/17 15:44 Heparin Sodium (Porcine) (Heparin Sq 5000 Unit/0.5ml) 5,000 unit Q12 SQ 10/08/17 21:00 11/07/17 20:59 11/01/17 08:03 5,000 UNIT Acetaminophen (Tylenol Tab) 650 mg Q4H PRN PO 10/08/17 15:45 11/07/17 15:44 11/01/17 16:37 650 MG Al Hydrox/Mg Hydrox/Simethicone (Maalox Max Susp) 15 ml Q4H PRN PO 10/08/17 15:45 11/07/17 15:44 Magnesium Hydroxide (Milk Of Magnesia Susp) 30 ml Q12H PRN PO 10/08/17 15:45 11/07/17 15:44 Ondansetron HCl (Zofran Inj) 4 mg Q6H PRN IV 10/08/17 15:45 11/07/17 15:44 Glucose (Glucose 40% Gel) 15-30 GRAMS 15 GRAMS... UD PRN PO 10/08/17 15:45 11/07/17 15:44 10/09/17 06:19 15 GM Glucose (Glucose Chew Tab) 4-8 Tablets 4 Tabl... UD PRN PO 10/08/17 15:45 11/07/17 15:44 Dextrose (Dextrose 50% 50ML Syringe) 25-50ML OF 50% DW IV FOR... UD PRN IV 10/08/17 15:45 11/07/17 15:44 10/09/17 06:47 25 ML Glucagon (Glucagon Inj) 1 mg UD PRN SQ 10/08/17 15:45 11/07/17 15:44 Furosemide 40 mg/ Syringe 4 ml @ 4 mls/min BID IV 10/08/17 21:00 11/07/17 20:59 Future Hold 10/10/17 19:55 4 MLS/MIN Miscellaneous (Iv Fluids Completed) 1 ea PRN PRN N/A 10/08/17 19:30 10/08/18 19:29 Insulin Aspart (novoLOG ASPART) SLIDING SCALE If C... ACHS SC 10/09/17 16:30 11/08/17 16:29 11/01/17 12:27 3 UNITS [place] Carbonate (Lithobid Tab) 300 mg HS PO 10/10/17 21:00 11/09/17 20:59 Future Hold 10/26/17 20:43 300 MG [place] Carbonate ([place] Carbonate Tab) 300 mg QAM PO 10/13/17 09:00 11/12/17 08:59 Future Hold 10/16/17 09:27 300 MG Lactulose (Chronulac Syrup) 40 gm TID PO 10/13/17 20:00 11/07/17 20:59 11/01/17 12:26 40 GM Furosemide (Lasix Tab) 40 mg QPM PO 10/25/17 21:00 11/24/17 20:59 10/31/17 20:28 40 MG Furosemide (Lasix Tab) 80 mg QAM PO 10/26/17 08:00 11/25/17 07:59 11/01/17 08:01 80 MG Cholecalciferol (Vitamin D Tab) 1,000 inter.unit BID PO 10/25/17 20:00 11/24/17 19:59 11/01/17 08:01 1,000 INTER.UNIT Potassium Chloride (Klor-Con Tab) 40 meq DAILY@1200 PO 10/26/17 12:00 11/25/17 11:59 11/01/17 12:26 40 MEQ Haloperidol (Haldol Tab) 0.5 mg DAILY PRN PO 10/26/17 21:15 11/25/17 21:14 Haloperidol (Haldol Tab) 0.5 mg HS PO 10/27/17 21:00 11/26/17 20:59 10/31/17 20:27 0.5 MG Haloperidol Decanoate (Haldol Decanoate Inj) 100 mg Q4WK@0900 IM 10/31/17 09:00 11/30/17 08:59 10/31/17 08:43 100 MG Levetiracetam (Keppra Soln) 750 mg Q12 PO 10/28/17 21:00 11/27/17 20:59 11/01/17 08:01 750 MG Objective Vital Signs Date Time Temp Pulse Resp B/P (MAP) Pulse Ox O2 Delivery O2 Flow Rate FiO2 11/01/17 17:30 Nasal Cannula 3.0 11/01/17 15:06 36.8 74 20 103/66 (78) 98 Nasal Cannula 3.0 11/01/17 10:41 Nasal Cannula 3.0 11/01/17 07:33 36.7 67 16 110/70 (83) 97 Nasal Cannula 3.0 11/01/17 00:00 36.9 72 20 142/89 (106) 96 BiPAP 11/01/17 00:00 Nasal Cannula 2.0 BiPAP 10/31/17 22:52 72 100 3.0 Physical Exam Notes: GENERAL: alert, obese, no distress EYE EXAM: normal conjunctiva, PERRL and EOM's grossly intact OROPHARYNX: no exudate, no erythema, lips, buccal mucosa, and tongue normal and mucous membranes are moist NECK: supple, no nuchal rigidity, no adenopathy, non-tender LUNGS: Clear to auscultation. Normal chest wall mechanics HEART: no murmurs, S1 normal and S2 normal ABDOMEN: abdomen soft, non-tender, normo-active bowel sounds, no masses, no rebound or guarding. BACK: Back is symmetrical on inspection and there is no deformity UPPER EXTREMITIES: upper extremities are grossly normal. LOWER EXTREMITIES: No pitting edema. NEURO EXAM: AOx4, cranial nerves II-XII grossly intact, normal speech Laboratory Results Results Past 24 Hours Test 11/01/17 07:57 11/01/17 08:20 11/01/17 11:33 11/01/17 16:33 Range/Units Bedside Glucose 125 136 85 70-90 mg/dl Sodium Level 134 136-145 mmol/L Potassium Level 3.5-5.1 mmol/L Chloride Level 96 98-107 mmol/L Carbon Dioxide Level 34 21-32 mmol/L Anion Gap 4.0 3-11 mmol/L Blood Urea Nitrogen 4 7-18 mg/dl Creatinine 0.84 0.60-1.20 mg/dl Est Creatinine Clear Calc Drug Dose 81.9 ml/min Estimated GFR () 86.3 Estimated GFR (Non- 74.5 BUN/Creatinine Ratio 4.8 10-20 Random Glucose 113 70-99 mg/dl Calcium Level 8.7 8.5-10.1 mg/dl [place] Level 0.6 0.6-1.2 mMOL/L Test 11/01/17 20:49 Range/Units Bedside Glucose 89 70-90 mg/dl Assessment and Plan 62 year old female with a past medical history of schizoaffective disorder, severe KORI, and a recent history of AMS that presented to the ED with somnolence secondary to excessive Haldol intake. memtal status at baseline Acute metabolic encephalopathy - multifactorial likely secondary to combination of Haldol overdose, lithium toxicity, hypercapnia - [place] toxicity- level elevated on arrival,, last check 10/26 was 1.6, now normal levels - Hx of hyperammonemia - Continue lactulose Schizoaffective Disorder / bipolar - current management per psych Hypercapnic Respiratory Acidosis sec to OHS - stable - Continue Bipap while asleep, [place] Toxicity - f/u nephrology report - Repeat BMP, [place] Level Abnormal UA - Urine culture --> more than 3 organism. - s/p treatment of Rocephin Acute on chronic Biventricular Heart failure CHF - stable, continue base creatinine - Cor pulmonale - Continue Lasix . Thrombocytopenia - stable - Repeat CBC Seizure disorder - Continue Keppra Type 2 DM - Lantus and ISS, continue to follow DVT proph - Heparin SQ Dispo - rehab pending, N denied Resuscitation Status - DNR Continued [facility] stay due to: abnormal vital signs Discharge planning: halfway facility Assessment/Plan Resident Physician Supervision Note: I was present with Dr. Harmon during the history and exam. I discussed the case with the resident and agree with the findings and plan as documented in the note. Any exceptions or clarifications are listed here: Pt seen and examined at bedside without new complaint. Feeling well today and oriented to person, place and time. Environmental Department Manager (in room) reports that she is essentially her baseline behavior. Denies COLLINS, sensory changes, CP/palpitations or new edema. Her bipolar appears at behavioral baseline similar to previous admissions - will necessitate close follow up as outpatient for titration of medications to avoid oversedation or manic type symptoms in addition to PT. [facility] has denied this transfer on the grounds of requiring frequent MD evaluations for her psychiatric medications in the setting of 2x assist, but encourages skilled care. Family engaging in appeal to [facility] for acute rehab. Resident Tracking Resident Involvement: Resident Care Provided Care Provided: [facility]
[2017-11-01 15:06] VITALS: BP 103/66; PULSE 74; TEMP 36.8; O2SAT 98
[2017-11-01] MEDS: HALOPERIDOL 0.5 MG TAB PO SCH (21:22)
[2017-11-01] MEDS: FUROSEMIDE 40 MG TAB PO SCH (21:23)
[2017-11-01 22:39] VITALS: PULSE 73; O2SAT 96
[2017-11-02] VITALS (7 sets, daily range): BP systolic 91–148; BP diastolic 58–77; PULSE 73–84; TEMP 36.3–36.8; O2SAT 96–98
[2017-11-02] MEDS: ACETAMINOPHEN 325 MG TAB PO PRN ×3 (06:20→22:21)
[2017-11-02] MEDS: LACTULOSE SYRUP 10 GM/15 ML BTL 473 ML PO SCH ×3 (10:21→20:50)
[2017-11-02] MEDS: POTASSIUM CHLORIDE 20 MEQ TABCR PO SCH (10:22)
[2017-11-02] MEDS: CHOLECALCIFEROL 1000 INTER.UNIT TAB PO SCH ×2 (10:22→20:55)
[2017-11-02] MEDS: FUROSEMIDE 80 MG TAB PO SCH (10:22)
[2017-11-02] MEDS: MAGNESIUM OXIDE 400 MG TAB PO SCH ×2 (10:22→20:51)
[2017-11-02] MEDS: LISINOPRIL 5 MG TAB PO SCH (10:22)
[2017-11-02] MEDS: METOPROLOL SUCC 50MG EXT REL TAB PO SCH (10:23)
[2017-11-02] MEDS: IPRATROPIUM BROMIDE/ALBUTEROL respimat INH INH SCH ×4 (10:23→20:56)
[2017-11-02] MEDS: NYSTATIN POWDER 15GM BTL EXT SCH ×2 (10:23→20:57)
[2017-11-02] MEDS: HEPARIN SOD 5000 UNIT/0.5 ML CARP SQ SCH ×2 (10:27→21:24)
--- NOTE | 2017-11-02 10:27 | Family Medicine Progress Note ---
Progress Note Date of Service November 02, 2017. Subjective Pt evaluation today including: conversation w/ patient, physical exam, chart review, lab review, review of studies, review of inpatient medication list PO Intake: denies Voiding: no voiding problems No acute events overnight. Patient has no complaint. Constitutional: No fever, No chills, No weakness Eyes: No see HPI Respiratory: No cough, No shortness of breath Cardiovascular: No chest pain, No edema, No palpitations Abdomen: No pain, No nausea, No vomiting, No diarrhea, No constipation Female : No dysuria, No urinary frequency Medications Current Inpatient Medications Medications (Trade) Dose Ordered Sig/Nanette Route Start Time Stop Time Status Last Admin Dose Admin Insulin Glargine (Lantus Solostar Pen) 8 units DAILY SC 10/08/17 18:00 11/07/17 17:59 11/02/17 10:28 8 UNITS Albuterol/ Ipratropium (Combivent Respimat Inh) 1 puffs QID INH 10/08/17 21:00 11/07/17 20:59 11/02/17 20:56 1 PUFFS Levetiracetam (Keppra Tab) 750 mg BID PO 10/08/17 21:00 11/07/17 20:59 Future Hold 10/14/17 09:32 750 MG Lisinopril (Zestril Tab) 5 mg QAM PO 10/09/17 09:00 11/08/17 08:59 11/02/17 10:22 5 MG Magnesium Oxide (Mag-Ox Tab) 400 mg BID PO 10/08/17 21:00 11/07/17 20:59 11/02/17 20:51 400 MG Metoprolol Succinate (Toprol Xl Tab) 50 mg DAILY PO 10/09/17 09:00 11/08/17 08:59 11/01/17 08:01 50 MG Nystatin (Mycostatin Powder) 1 appln BID EXT 10/08/17 21:00 11/07/17 20:59 11/02/17 20:57 1 APPLN Potassium Chloride (Klor-Con Tab) 80 meq QPM PO 10/08/17 21:00 11/07/17 20:59 Future Hold 10/08/17 20:53 80 MEQ Potassium Chloride (Klor-Con Tab) 160 meq QAM PO 10/09/17 09:00 5/29/18 08:59 Future Hold 10/10/17 08:29 160 MEQ Polyethylene (Miralax Powder Packet) 17 gm DAILY PRN PO 10/08/17 15:45 11/07/17 15:44 Heparin Sodium (Porcine) (Heparin Sq 5000 Unit/0.5ml) 5,000 unit Q12 SQ 10/08/17 21:00 11/07/17 20:59 11/02/17 21:24 5,000 UNIT Acetaminophen (Tylenol Tab) 650 mg Q4H PRN PO 10/08/17 15:45 11/07/17 15:44 11/02/17 22:21 650 MG Al Hydrox/Mg Hydrox/Simethicone (Maalox Max Susp) 15 ml Q4H PRN PO 10/08/17 15:45 11/07/17 15:44 Magnesium Hydroxide (Milk Of Magnesia Susp) 30 ml Q12H PRN PO 10/08/17 15:45 11/07/17 15:44 Ondansetron HCl (Zofran Inj) 4 mg Q6H PRN IV 10/08/17 15:45 11/07/17 15:44 Glucose (Glucose 40% Gel) 15-30 GRAMS 15 GRAMS... UD PRN PO 10/08/17 15:45 11/07/17 15:44 10/09/17 06:19 15 GM Glucose (Glucose Chew Tab) 4-8 Tablets 4 Tabl... UD PRN PO 10/08/17 15:45 11/07/17 15:44 Dextrose (Dextrose 50% 50ML Syringe) 25-50ML OF 50% DW IV FOR... UD PRN IV 10/08/17 15:45 11/07/17 15:44 10/09/17 06:47 25 ML Glucagon (Glucagon Inj) 1 mg UD PRN SQ 10/08/17 15:45 11/07/17 15:44 Furosemide 40 mg/ Syringe 4 ml @ 4 mls/min BID IV 10/08/17 21:00 11/07/17 20:59 Future Hold 10/10/17 19:55 4 MLS/MIN Miscellaneous (Iv Fluids Completed) 1 ea PRN PRN N/A 10/08/17 19:30 10/08/18 19:29 Insulin Aspart (novoLOG ASPART) SLIDING SCALE If C... ACHS SC 10/09/17 16:30 11/08/17 16:29 11/02/17 21:25 1 UNITS [place] Carbonate (Lithobid Tab) 300 mg HS PO 10/10/17 21:00 11/09/17 20:59 Future Hold 10/26/17 20:43 300 MG [place] Carbonate ([place] Carbonate Tab) 300 mg QAM PO 10/13/17 09:00 11/12/17 08:59 Future Hold 10/16/17 09:27 300 MG Lactulose (Chronulac Syrup) 40 gm TID PO 10/13/17 20:00 11/07/17 20:59 11/02/17 20:50 40 GM Furosemide (Lasix Tab) 40 mg QPM PO 10/25/17 21:00 11/24/17 20:59 11/02/17 20:55 40 MG Furosemide (Lasix Tab) 80 mg QAM PO 10/26/17 08:00 11/25/17 07:59 11/02/17 10:22 80 MG Cholecalciferol (Vitamin D Tab) 1,000 inter.unit BID PO 10/25/17 20:00 11/24/17 19:59 11/02/17 20:55 1,000 INTER.UNIT Potassium Chloride (Klor-Con Tab) 40 meq DAILY@1200 PO 10/26/17 12:00 11/25/17 11:59 11/02/17 10:22 40 MEQ Haloperidol (Haldol Tab) 0.5 mg DAILY PRN PO 10/26/17 21:15 11/25/17 21:14 Haloperidol (Haldol Tab) 0.5 mg HS PO 10/27/17 21:00 11/26/17 20:59 11/02/17 20:52 0.5 MG Haloperidol Decanoate (Haldol Decanoate Inj) 100 mg Q4WK@0900 IM 10/31/17 09:00 11/30/17 08:59 10/31/17 08:43 100 MG Levetiracetam (Keppra Soln) 750 mg Q12 PO 10/28/17 21:00 11/27/17 20:59 11/02/17 20:54 750 MG Objective Vital Signs Date Time Temp Pulse Resp B/P (MAP) Pulse Ox O2 Delivery O2 Flow Rate FiO2 11/03/17 00:00 BiPAP 11/02/17 23:59 73 98 3.0 11/02/17 22:47 36.7 78 18 124/77 (93) 96 Nasal Cannula 2.0 11/02/17 20:00 Nasal Cannula 3.0 11/02/17 16:30 98 Room Air 11/02/17 16:25 36.8 78 20 115/74 (88) 98 Room Air 11/02/17 10:00 98/62 (74) 11/02/17 08:05 36.3 84 16 91/58 (69) 98 Nasal Cannula 3.0 11/02/17 07:40 Nasal Cannula 2.0 Physical Exam Notes: GENERAL: alert, obese, no distress EYE EXAM: normal conjunctiva, PERRL and EOM's grossly intact OROPHARYNX: no exudate, no erythema, lips, buccal mucosa, and tongue normal and mucous membranes are moist NECK: supple, no nuchal rigidity, no adenopathy, non-tender LUNGS: Clear to auscultation. Normal chest wall mechanics HEART: no murmurs, S1 normal and S2 normal ABDOMEN: abdomen soft, non-tender, normo-active bowel sounds, no masses, no rebound or guarding. BACK: Back is symmetrical on inspection and there is no deformity UPPER EXTREMITIES: upper extremities are grossly normal. LOWER EXTREMITIES: No pitting edema. NEURO EXAM: AOx4, cranial nerves II-XII grossly intact, normal speech Laboratory Results Results Past 24 Hours Test 11/02/17 07:49 11/02/17 11:57 11/02/17 16:47 11/02/17 20:29 Range/Units Bedside Glucose 97 150 130 161 70-90 mg/dl Assessment and Plan 62 year old female with a past medical history of schizoaffective disorder, severe KORI, and a recent history of AMS that presented to the ED with somnolence secondary to excessive Haldol intake. mental status at baseline Acute metabolic encephalopathy - resolved, at baseline - multifactorial likely secondary to combination of Haldol overdose, lithium toxicity, hypercapnia - [place] toxicity- level elevated on arrival, last check 10/26 was 1.6, now normal levels - Hx of hyperammonemia - Continue lactulose Schizoaffective Disorder / bipolar - current management per psych Hypercapnic Respiratory Acidosis sec to OHS - stable - Continue Bipap while asleep, [place] Toxicity - f/u nephrology report - Repeat BMP, [place] Level Abnormal UA - Urine culture --> more than 3 organism. - s/p treatment of Rocephin Acute on chronic Biventricular Heart failure CHF - stable, continue base creatinine - Cor pulmonale - Continue Lasix . Thrombocytopenia - stable - Repeat CBC Seizure disorder - Continue Keppra Type 2 DM - Lantus and ISS, continue to follow DVT proph - Heparin SQ Dispo - rehab pending, [facility] denial overturned in appeal Resuscitation Status - DNR Continued [facility] stay due to: home environment unsafe for pt Discharge planning: rehab hospital Assessment/Plan Resident Physician Supervision Note: I was present with Dr. Harmon during the history and exam. I discussed the case with the resident and agree with the findings and plan as documented in the note. Any exceptions or clarifications are listed here: Pt seen and examined at bedside without new complaint. Continues to feel well. Oriented to person, place and time. Denies COLLINS, sensory changes, CP/palpitations or new edema. Her bipolar continues to appear at behavioral baseline - will necessitate close follow up as outpatient for titration of medications to avoid oversedation or manic type symptoms in addition to PT. But considerably more stable than previously on discharge. [facility] family appeal ACCEPTED and awaiting placement. Resident Tracking Resident Involvement: Resident Care Provided Care Provided: Adult Hospital Medicine
[2017-11-02] MEDS: INSULIN GLARGINE SOLOSTAR 100 UNITS/ML 3 ML PEN SC SCH (10:28)
[2017-11-02] MEDS: INSULIN ASPART 100 UNITS/ML 3 ML PEN SC SCH ×4 (10:29→21:25)
[2017-11-02] MEDS: LEVETIRACETAM ORAL SOLN 100MG/ML PO SCH ×2 (10:38→20:54)
[2017-11-02] MEDS: HALOPERIDOL 0.5 MG TAB PO SCH (20:52)
[2017-11-02] MEDS: FUROSEMIDE 40 MG TAB PO SCH (20:55)
[2017-11-03] MEDS: METOPROLOL SUCC 50MG EXT REL TAB PO SCH (08:00)
[2017-11-03] MEDS: LEVETIRACETAM ORAL SOLN 100MG/ML PO SCH (08:07)
[2017-11-03] MEDS: NYSTATIN POWDER 15GM BTL EXT SCH (08:07)
[2017-11-03] MEDS: LACTULOSE SYRUP 10 GM/15 ML BTL 473 ML PO SCH (08:07)
[2017-11-03] MEDS: IPRATROPIUM BROMIDE/ALBUTEROL respimat INH INH SCH (08:07)
[2017-11-03] MEDS: POTASSIUM CHLORIDE 20 MEQ TABCR PO SCH (08:08)
[2017-11-03] MEDS: MAGNESIUM OXIDE 400 MG TAB PO SCH (08:08)
[2017-11-03] MEDS: CHOLECALCIFEROL 1000 INTER.UNIT TAB PO SCH (08:08)
[2017-11-03] MEDS: LISINOPRIL 5 MG TAB PO SCH (08:08)
[2017-11-03] MEDS: FUROSEMIDE 80 MG TAB PO SCH (08:09)
[2017-11-03] MEDS: INSULIN ASPART 100 UNITS/ML 3 ML PEN SC SCH (08:09)
[2017-11-03] MEDS: HEPARIN SOD 5000 UNIT/0.5 ML CARP SQ SCH (08:10)
[2017-11-03] MEDS: INSULIN GLARGINE SOLOSTAR 100 UNITS/ML 3 ML PEN SC SCH (08:10)
[2017-11-03 08:14] VITALS: BP 124/77; PULSE 73; TEMP 36.7; O2SAT 96
[2017-11-03] MEDS: ACETAMINOPHEN 325 MG TAB PO PRN (08:21)
[2017-11-03 08:22] VITALS: BP 99/61; PULSE 91; TEMP 36.6; O2SAT 94
--- NOTE | 2017-11-03 09:47 | Psychiatric Progress Notes ---
Psychiatric Progress Note Date of Service November 03, 2017. Notes Notified by Dr. Harmon that patient is being discharged to [facility] today, and asked to review her discharge psychotropic medications. She received her Haldol Decanoate 100 mg shot on 10/31/2017, so her next injection will be due in 4 weeks on 11/28/2017. [place] was discontinued here due to ongoing toxicity, somnolence, and refusal of blood draws to check the level. Recommend assessment by care worker prior to resuming to help determine risks and benefits of ongoing treatment with this medication. Her oral haloperidol was decreased to 0.5 mg at bedtime, and can continue that dose for now, but if she remains stable, and may be able to be discontinued as an outpatient. She will need to follow up with Dr. Nadeem Gomes at [facility] for medication management.
[2017-11-03] MEDS ORDERED: HLD.5 PO (09:48)
--- NOTE | 2017-11-03 10:02 | Discharge Instructions ---
Discharge Instructions Date of Service November 03, 2017. Admission Reason for Admission: Metabolic Encephalopathy Discharge Discharge Diagnosis / Problem: Metabolic Encephalopathy Discharge Goals Goal(s): Improve function, Increase independence, Improve disease control, Learn about illness, Therapeutic intervention, Prevent Disease Progression Activity Recommendations Activity Level: Up Ad Jerri Therapies: Physical Therapy, Occupational Therapy . Additional Information Patient informed of condition: Yes Advance Directives: No DNR: No Level of Care: Acute Rehab Communicable Disease: No Prognosis: Stable Instructions / Follow-Up Instructions / Follow-Up 62 year old female with a past medical history of schizoaffective disorder, severe KORI, and a recent history of AMS that presented to the ED with somnolence secondary to excessive Haldol intake. mental status at baseline Acute metabolic encephalopathy - resolved, at baseline - multifactorial likely secondary to combination of Haldol overdose, lithium toxicity, hypercapnia - [place] toxicity- level elevated on arrival, last check 10/26 was 1.6, now normal levels - Hx of hyperammonemia - Continue lactulose -Discontinue [place] on discharge until seen by outpatient psychiatry ( Dr. Urias, [facility]) -She will need followup appt with Dr. Urias on discharge Schizoaffective Disorder / bipolar - Haloperidol .5 qHS, Haloperidol decanoate q 4 weeks, Next dose 11/28/17 Hypercapnic Respiratory Acidosis sec to OHS - stable - Oxygen 2 -3L during the day - Continue Bipap while asleep, [place] Toxicity -Last , [place] Level wnl - Keep [place] on hold until seen by Dr. Urias outpatient Abnormal UA - Urine culture --> more than 3 organism. - s/p treatment of Rocephin Acute on chronic Biventricular Heart failure CHF - stable, continue base creatinine - Cor pulmonale - Continue Lasix . Thrombocytopenia - stable - Repeat CBC Seizure disorder - Continue Keppra Type 2 DM - Lantus and ISS, continue to follow DVT proph - Heparin SQ Dispo - [facility] on discharge Resuscitation Status - DNR Current Hospital Diet Patient's current hospital diet: Diabetes Type 2 Diet Discharge Diet Recommended Diet: Diabetes Type 2 Diet Pending Studies Studies pending at discharge: no Physician Orders On Transfer Additional Orders: - 2L Oxygen [place] during day, [place] to >/= 90 Bipap at night for OHS - BSG qhs qac - Discontinue [place] on discharge until seen by outpatient psychiatry ( Dr. Urias, [facility]) - She will need followup appt with Dr. Urias during stay at [facility] - She will need follow up with Heat Treat Technician to address [place] toxicity, Hold [place] for now - Haloperidol .5 mg qHS , Haloperidol decanoate q 4 weeks, Next dose due 11/28/17 Laboratory Results Hemoglobin A1c Test 10/02/17 02:34 Range/Units Estimated Average Glucose 364 mg/dl Hemoglobin A1c 14.3 H 4.5-5.6 % Lipid Panel Test 10/02/17 02:34 Range/Units Triglycerides Level 82 0-150 mg/dl Cholesterol Level 69 0-200 mg/dl HDL Cholesterol 41 mg/dl Cholesterol/HDL Ratio 1.7 LDL Cholesterol, Calculated 12 mg/dl Medical Emergencies . Who to Call and When: Medical Emergencies: If at any time you feel your situation is an emergency, please call 911 immediately. . Non-Emergent Contact Non-Emergency issues call your: Primary Care Provider, Specialist (Psychiatrist ) Call Non-Emergent contact if: you have a fever, your pain is not controlled, you have any medication questions . . "Provider Documentation" section prepared by Bill Harmon. . Core Measure Problem Core Measures: None
--- NOTE | 2017-11-03 19:19 | Family Medicine Progress Note ---
Progress Note Date of Service November 03, 2017. Assessment/Plan Pt seen and examined at bedside without new complaint. Reports feeling well, at her baseline. Oriented to person, place and time. Denies COLLINS, sensory changes, CP /palpitations or new edema. Her bipolar continues to appear at behavioral baseline - will necessitate close follow up as outpatient for titration of medications to avoid oversedation or manic type symptoms in addition to PT. But considerably more stable than previously on discharge. [facility] placement pending.
--- NOTE | 2017-11-06 09:04 | Discharge Summary ---
Discharge Summary Date of Service Nov 03 2017. Discharge Summary Admission Date: Oct 10, 2017 at 15:31 Discharge Date: November 03, 2017 Discharge Disposition: Acute care mental health Principal Diagnosis: Acute encephalopathy Immunizations: Have You Had Influenza Vaccine: Unknown Influenza Vaccine Date: Sep 27, 2009 History of Tetanus Vaccine?: Unknown History of Pneumococcal: No Pneumococcal Date: Jun 28, 2007 History of Hepatitis B Vaccine: Unknown Procedures: CHEST ONE VIEW PORTABLE HISTORY: ?aspiration COMPARISON: Chest 10/08/2017. FINDINGS: No pneumothorax. Mild pulmonary vascular congestion without overt edema. Suspect trace bilateral pleural effusions. The heart remains moderately enlarged. Increased density within the left lung base. Rotated study. IMPRESSION: 1. Mild pulmonary vascular congestion, cardiomegaly, trace bilateral pleural effusions. 2. Increased density at the left lung base. This could be technical and related to the rotated study. Superimposed pneumonia could also have a similar appearance. Electronically signed by: Alfonso Perez M.D. 10/23/2017 1:55 PM BRAIN WITHOUT CONTRAST CLINICAL HISTORY: 62 years-old Female presenting with somnolence, dysphagia, ?CVA. TECHNIQUE: Multisequence, multiplanar MR imaging of the brain was performed without the use of intravenous contrast. IV contrast: None. COMPARISON: 11/25/[address] head from 10/08/2017. FINDINGS: Image quality is degraded by motion artifact limiting diagnostic since activity the exam. Ventricles and sulci normal in size. Brain parenchyma normal in appearance with preserved steve-white differentiation. No mass effect or midline shift. No restricted diffusion to suggest acute ischemia. No hemorrhage. No extra-axial fluid collection. T2 skull base flow voids preserved. Minimal layering fluid noted in the sphenoid sinuses. Bone marrow signal intensity within the calvarium within normal limits. IMPRESSION: Image quality is degraded by motion artifact limiting diagnostic since activity the exam. 1. No acute intracranial abnormality. Electronically signed by: Marquise Smith M.D. 10/14/2017 6:37 PM Dictated Date/Time: 10/14/2017 6:35 PM VIDEO SWALLOW CLINICAL HISTORY: Encephalopathy. Signs and symptoms of aspiration. COMPARISON STUDY: No previous studies for comparison. Fluoroscopy time: 2.3 minutes. FINDINGS: There was no aspiration with thin liquids or nectar thick liquids. No aspiration was identified with pudding. There was delayed AP transfer. IMPRESSION: 1. No tracheal aspiration identified. 2. Mild premature spillage. Delayed AP transfer. 3. Full recommendations by speech pathology to follow. HEAD WITHOUT CONTRAST (CT) CT DOSE: 537.48 mGy.cm HISTORY: Mental status change AMS TECHNIQUE: Multiaxial CT images of the head were performed without the use of intravenous contrast. A dose lowering technique was utilized adhering to the principles of ALARA. Comparison: 10/01/2017 Findings: The paranasal sinuses and mastoid air cells are clear. The calvarium and skull base are intact. The ventricles and sulci are within normal limits. There is no mass, hematoma, midline shift, or acute infarct. Chronic bilateral orbital proptosis. Minimal age-related atrophy and chronic small vessel change Impression: No acute intracranial abnormality. No change from the prior study The above report was generated using voice recognition software. It may contain grammatical, syntax or spelling errors. Electronically signed by: Jeff Hahn M.D. 10/08/2017 1:04 PM CHEST ONE VIEW PORTABLE CLINICAL HISTORY: Shob dyspnea COMPARISON STUDY: 10/01/2017. FINDINGS: Stable cardiomegaly. Increased prominence of pulmonary vasculature compared to the prior study. Diaphragms are smooth. IMPRESSION: Congestive heart failure Consultations: Pulmonology Psychiatry Medication Reconciliation New Medications: Haloperidol (Haloperidol) 0.5 Mg Tab 0.5 MG PO HS for 30 Days, TAB 2 Refills Continued Medications: Benzonatate (Tessalon Perles) 200 Mg Cap 200 MG PO Q8, CAP Cholecalciferol (Vitamin D3) 1,000 Unit Cap 1000 INTER.UNIT PO BID Furosemide (Furosemide) 40 Mg Tab 40 MG PO QPM Furosemide (Furosemide) 80 Mg Tab 80 MG PO QAM Haloperidol Decanoate (Haldol Decanoate 100) 100 Mg/Ml Inj 1 ML IM MONTHLY Last received 10/03/17, due 10/31/17. Insulin Aspart (Novolog) 100 Units/Ml Inj 0 SQ UD ONLY IF BS IS >180 Insulin Glargine (Lantus Solostar) 100 Unit/Ml Inj 14 UNITS SC AMPM, PEN Ipratropium-Albuterol (Combivent Respimat) 1 Aer Aer 1 PUFFS INH QID, INH Lactulose (Chronulac) 10 Gm/15 Ml Syrp 30 GM PO TID Levetiracetam (Keppra) 250 Mg Tab 750 MG PO BID Lisinopril (Lisinopril) 5 Mg Tab 5 MG PO QAM Magnesium Oxide (Mag-Ox) 400 Mg Tab 400 MG PO BID Metoprolol Succinate (Toprol Xl) 50 Mg Tabcr 50 MG PO DAILY Nystatin (Nystop) 45 Appln/15 Gm Powd 1 APPLN TOP BID Polyethylene Glycol 3350 (Bulk (Polyethylene Glycol 3350) 1 Pow Pow 17 GM PO DAILY PRN for Constipation Potassium Chloride (Micro-K Ext Rel) 10 Meq Capcr 160 MEQ PO QAM, CAP Potassium Chloride (K-Tabs) 10 Meq Tab 40 MEQ PO DAILY@1200 Potassium Chloride (Micro-K Ext Rel) 10 Meq Capcr 80 MEQ PO QPM, CAP Discontinued Medications: Haloperidol (Haloperidol) 1 Mg Tab 2 MG PO BID [place] Carbonate ([place] Carbonate) 300 Mg Cap 300 MG PO QAM, #180 [place] Carbonate ([place] Carbonate ER) 300 Mg Tab 300 MG PO HS Discharge Exam Constitutional: No fever, No chills, No weakness Eyes: No see HPI Respiratory: No cough, No shortness of breath Cardiovascular: No chest pain, No edema, No palpitations Abdomen: No pain, No nausea, No vomiting, No diarrhea, No constipation Female : No dysuria, No urinary frequency GENERAL: alert, obese, no distress EYE EXAM: normal conjunctiva, PERRL and EOM's grossly intact OROPHARYNX: no exudate, no erythema, lips, buccal mucosa, and tongue normal and mucous membranes are moist NECK: supple, no nuchal rigidity, no adenopathy, non-tender LUNGS: Clear to auscultation. Normal chest wall mechanics HEART: no murmurs, S1 normal and S2 normal ABDOMEN: abdomen soft, non-tender, normo-active bowel sounds, no masses, no rebound or guarding. BACK: Back is symmetrical on inspection and there is no deformity UPPER EXTREMITIES: upper extremities are grossly normal. LOWER EXTREMITIES: No pitting edema. NEURO EXAM: AOx4, cranial nerves II-XII grossly intact, normal speech Hospital Course H&P 62 yo F recently admitted to the hospital and treated for hyperglycemia and LISBETH , metolazone was held and she was started on haldol 2 mg TID and continued on [place] 300 TID. As per the hospital yesterday she was slightly lethargic. He was able to help her to get intubated. She woke up. This morning she was completely obtunded. Nonverbal. Had increased swelling in her body lower extremity. She was brought to the ED she is nonverbal and obtunded. ABG PCO2 of 60 but this is for her. Her lithium level was 1.7, at the upper limit of normal is 1.2. And she started feeling slightly better while in the ED. Appears to be the effect of the haldol Course 62 year old female with a past medical history of schizoaffective disorder, severe KORI, and a recent history of AMS that presented to the ED with somnolence secondary to excessive Haldol intake. mental status at baseline Acute metabolic encephalopathy - multifactorial likely secondary to combination of Haldol overdose, lithium toxicity, hypercapnia - [place] toxicity- level elevated on arrival, normal limits by discharge - Hx of hyperammonemia - Continue lactulose MRI Brain unremarkable - Held Haldol , [place] initally on arrival, restartedLithium on home dose - Switched to haloperidol 4mg HS Schizoaffective Disorder / bipolar - current management per psych Hypercapnic Respiratory Acidosis sec to OHS - stable - Continue Bipap while asleep, [place] Toxicity -Discussed with nephrology - no indication for dialysis at this point. No clear etiology for the levels going up. No obvious sign of volume contraction Difficulty eating food/ possible dysphagia - Possibly attributed to dry throat mouth/throat , secondary to haloperidol - Speech eval ordered. Dx: mod-severe oral-stage dysphagia and no functional pharyngeal dysphagia. Recommend: 1. The patient is only safe to eat by mouth if she is ACTIVELY PARTICIPATING in the feeding process. She is significantly safer when she feeds herself. 2. If eating by mouth then she should start with a pureed diet. DO NOT FEED PATIENT IF she is not fully alert and participating in the feeding and eating process. 3. Consider f/u with [facility] services in acute rehabilitation setting (her d/c disposition) for trials of upgraded diet consistencie - ON discahrge, Her oral haloperidol was decreased to 0.5 mg at bedtime with dishcarge folowup to Dr. Nadeem Woodward Abnormal UA - Urine culture --> more than 3 organism. - s/p treatment of Rocephin Acute on chronic Biventricular Heart failure CHF - stable, continue base creatinine - Cor pulmonale - Continue Lasix . Thrombocytopenia - stable - Repeat CBC Seizure disorder - Continue Keppra Type 2 DM - Lantus and ISS, continue to follow DVT proph - Heparin SQ Dispo - rehab pending, [facility] denial overturned in appeal Resuscitation Status - DNR Disposition: [facility] Total Time Spent: Less than 30 minutes This includes examination of the patient, discharge planning, medication reconciliation, and communication with other providers. Discharge Instructions Please refer to the electronic Patient Visit Report (Discharge Instructions) for additional information. Assessment/Plan Resident Physician Supervision Note: I was present with Dr. Harmon during the history and exam. I discussed the case with the resident and agree with the findings and plan as documented in the note. Any exceptions or clarifications are listed here: Pt seen and examined at bedside without new complaint. Reports feeling well, at her baseline. Oriented to person, place and time. Denies COLLINS, sensory changes, CP /palpitations or new edema. Her psychiatric diagnoses have resulted in repeated readmission and complications to care. At present, the breadth of her symptoms are controlled on her current regimen as noted above. Her Li level are normal on discharge, though they were delayed in returning to such. She should continued in her chronic condition management as noted with careful attention to the impact of her titrated psychiatric medications on her level of consciousness, as well as routine daily weight for her CHF.
== END 2017-11-03 10:43 | DRG 917 ==
LOC: EDBD 11:50 → C.EDA 11:51 → C.MED 15:38 → INTOOBSV 15:38 → EDBEDREQ 15:57 → ENRESERV 16:00 → OBSVTOIN 10-10 15:31 → C.4E 10-13 19:29
PROVIDERS: ADMIT Internal Medicine; ATTEND Family Medicine
DX: T43.4X1A Poisoning by butyrophenone and thiothixene neuroleptics, accidental (unintentional), initial encounter (principal); T56.891A Toxic effect of other metals, accidental (unintentional), initial encounter; G93.41 Metabolic encephalopathy; I42.9 Cardiomyopathy, unspecified; E66.2 Morbid (severe) obesity with alveolar hypoventilation; E87.2 Acidosis; E11.21 Type 2 diabetes mellitus with diabetic nephropathy; I50.82 Biventricular heart failure; F25.0 Schizoaffective disorder, bipolar type; Z83.3 Family history of diabetes mellitus; Z79.4 Long term (current) use of insulin; G40.909 Epilepsy, unspecified, not intractable, without status epilepticus; I47.9 Paroxysmal tachycardia, unspecified; Z66 Do not resuscitate; I27.20 Pulmonary hypertension, unspecified; Z88.0 Allergy status to penicillin; I11.0 Hypertensive heart disease with heart failure; D69.6 Thrombocytopenia, unspecified; E87.5 Hyperkalemia; R13.19 Other dysphagia; I27.81 Cor pulmonale (chronic); R06.89 Other abnormalities of breathing; Y92.019 Unspecified place in single-family (private) house as the place of occurrence of the external cause

== ENCOUNTER 2017-12-10 18:24 | Inpatient (IN) | payer OTHER ==
[~2017-12-10] VITALS: Ht 160 cm; Wt 106.7 kg
[~2017-12-10 18:24] MED LIST changes: +HLD.5 PO; -HLD1 PO; -INSDGIPEN SC; +INSDGIPEN SQ; -KPP250 PO; +LACT10SO3 PO; -LCTL45 PO; +LEVE250T PO; +LISI-730 PO; -LSN5 PO; -LTH300C PO; -LTHCR300 PO; +METO-217 PO; -METO50TA8 PO; -MRLP17X PO; +POLY1POW2 PO
[2017-12-10] MEDS ORDERED: ADENOSINE IV SOLN 3 MG/ML 2 ML VIAL ONE (18:46)
[2017-12-10 18:54] VITALS: PULSE 148; O2SAT 100
[2017-12-10 19:05] LABS: HEMOGLOBIN 10.3 g/dL (12.0-16.0); MEAN CELL VOLUME 95.7 fL (80-100); MEAN CORPUSCULAR HEMOGLOBIN 27.4 pg (25-34); MEAN CORPUSCULAR HGB CONC 28.6 g/dl (32-36); MEAN PLATELET VOLUME 10.4 fL (7.4-10.4); NUCLEATED RED BLOOD CELL ABS 0.13 K/uL (0-0); PLATELET COUNT 221 K/uL (130-400); RED CELL DISTRIBUTION WIDTH CV 19.4 % (11.5-14.5); RED CELL DISTRIBUTION WIDTH SD 67.6 fL (36.4-46.3); WHITE BLOOD COUNT 5.78 K/uL (4.8-10.8)
[2017-12-10 19:09] LABS: INR 1.4 (0.9-1.1); PTT PATIENT 23.4 SECONDS (21.0-31.0)
[2017-12-10 19:27] LABS: BASO % 0.2 %; BASO ABS # 0.01 K/uL (0-0.2); EOS % 0.5 %; EOS ABS # 0.03 K/uL (0-0.5); IG# 0.01 K/uL (0.00-0.02); LYMPH % 17.8 %; LYMPH ABS # 1.03 K/uL (1.2-3.4); MONO % 13.8 %; NEUT % 67.5 %
[2017-12-10] MEDS ORDERED: HALO0.5T9 PO (19:27)
--- NOTE | 2017-12-10 19:30 | DIAGNOSTIC IMAGING REPORT ---
CHEST ONE VIEW PORTABLE CLINICAL HISTORY: EVALUATE RESPIRATORY DISTRESS.DYSPNEA COMPARISON STUDY: Chest radiograph October 23, 2017. FINDINGS: There is no pneumothorax. Marked enlargement of the cardiac silhouette is unchanged. There is pulmonary vascular congestion. Apparent hazy left basilar opacity is likely artifactual. There is no lobar consolidation. IMPRESSION: Stable marked enlargement of the cardiac silhouette with pulmonary vascular congestion. Electronically signed by: Santana Lundy M.D. 12/10/2017 7:29 PM Dictated Date/Time: 12/10/2017 7:27 PM
[2017-12-10 19:40] LABS: ALBUMIN 2.7 gm/dl (3.4-5.0); CALCIUM 7.7 mg/dl (8.5-10.1); CREATININE 0.83 mg/dl (0.60-1.20); TOTAL PROTEIN 6.5 gm/dl (6.4-8.2)
[2017-12-10] MEDS ORDERED: DEXTROSE 50% 50 ML SYR ONE (19:45)
[2017-12-10] MEDS ORDERED: DEXTROSE 50% 50 ML SYR IV ONE (19:45)
--- NOTE | 2017-12-10 23:35 | History and Physical ---
History & Physical Date & Time of Service: Dec 10, 2017 at 23:32 Chief Complaint: Sob, Cardiac Sx Primary Care Physician: Bin Patel M.D. History of Present Illness Source: patient, family (Daughter in room) 62-year-old female presents with her daughter complaining of shortness of breath over past 2 days or so. Apparently her BiPAP machine has been broken for about 1 week now and she has been complaining of increased fatigue. On EMS transfer, patient's oxygen saturation was noted to be 85% on room air so she was placed on CPAP. In the emergency department she was noted to be in SVT, since converted with adenosine. The patient says she feels swollen in her legs that they are itchy. Her daughter says that the patient has been told to be on fluid restriction but she does not want to do that, preferring to drink "a lot of water" all day. Patient also says that she began having loose stools earlier this morning and that her abdomen feels more distended. She denies any chest pain, known fevers, or any urinary symptoms. Has some nausea but denies any vomiting. Patient says she has been taking her medicines regularly. Daughter says that normally patient's make sure she takes her medications, but when he is out of town such as now they have home nursing visits to ensure medication compliance. Past Medical/Surgical History Medical Problems: (1) Acute CHF (2) Acute renal failure (ARF) (3) ACUTE RENAL FAILURE NOS (4) Acute respiratory failure with hypoxia and hypercapnia (5) Altered mental status (6) Altered mental status (7) Anasarca (8) Anemia (9) Bilateral lower extremity edema (10) BIPOL I DIS, SING MANIC EPIS, SEVERE, SPEC W PSYCHOTIC BEHAV (11) Change in mental status (12) Change in mental status (13) CHF (congestive heart failure) (14) CHF (congestive heart failure) (15) CHF exacerbation (16) CO2 retention (17) Congestive heart failure (CHF) (18) Dehydration (19) DIAB ROSA WO COMPL, TYPE II OR UNSPEC TYPE, NOT UNCNTRLD (20) DKA (diabetic ketoacidoses) (21) Elevated lithium level (22) Elevated troponin (23) Extrapyramidal and movement disorder (24) Fall (25) HONK, new right arm weakness possible need to rule out CVA (26) Hyperammonemia (27) Hyperammonemia (28) Hyperammonemia (29) Hyperammonemia (30) Hypercalcemia (31) Hypercarbia (32) Hypercarbia (33) Hypercarbia (34) Hyperglycemia (35) Hyperglycemia (36) Hyperglycemia without ketosis (37) Hyperkalemia (38) Hyperosmolality (39) Hypoglycemia (40) Hypokalemia (41) Hypokalemia (42) Hyponatremia (43) Hyponatremia (44) Hyponatremia (45) Hyponatremia (46) Hypoxia (47) Hypoxia (48) Left arm swelling (49) Lethargy (50) Campton toxicity (51) Lower extremity weakness (52) Metabolic alkalosis (53) Metabolic encephalopathy (54) Palliative care encounter (55) Renal insufficiency (56) Schizoaffective disorder, bipolar type without good prognostic features (57) Seizure (58) Seizure-like activity (59) Seizure-like activity (60) SOB (shortness of breath) (61) Systolic CHF, acute on chronic (62) Weakness (63) Weakness Family History FH: HTN (hypertension) FH: diabetes mellitus Heart disease Social History Smoking Status: Never Smoker Smokeless Tobacco Use: No Alcohol Use: none Drug Use: none Marital Status: Housing status: lives with significant other, other Occupational Status: retired Immunizations History of Influenza Vaccine: Unknown Influenza Vaccine Date: Sep 27, 2009 History of Tetanus Vaccine?: Unknown History of Pneumococcal: No Pneumococcal Date: Jun 28, 2007 History of Hepatitis B Vaccine: Unknown Allergies Coded Allergies: Penicillins (Unverified Allergy, Unknown, unknown, 10/01/17) Home Medications Scheduled Benzonatate (Tessalon Perles), 200 MG PO Q8 Cholecalciferol (Vitamin D3), 1,000 INTER.UNIT PO BID Furosemide (Furosemide), 40 MG PO QPM Furosemide (Furosemide), 80 MG PO QAM Haloperidol (Haldol), 0.5 MG PO HS Haloperidol Decanoate (Haldol Decanoate 100), 1 ML IM MONTHLY Insulin Aspart (Novolog), 0 SQ UD Insulin Glargine (Lantus Solostar), 14 UNITS SQ AMPM Ipratropium-Albuterol (Combivent Respimat), 1 PUFFS INH QID Lactulose (Chronulac), 30 GM PO TID Levetiracetam (Keppra), 750 MG PO BID Lisinopril (Lisinopril), 5 MG PO QAM Magnesium Oxide (Mag-Ox), 400 MG PO BID Metoprolol Succinate (Toprol Xl), 50 MG PO DAILY Nystatin (Nystop), 1 APPLN TOP BID Potassium Chloride (Micro-K Ext Rel), 160 MEQ PO QAM Potassium Chloride (K-Tabs), 40 MEQ PO DAILY@1200 Potassium Chloride (Micro-K Ext Rel), 80 MEQ PO QPM Scheduled PRN Polyethylene Glycol 3350 (Bulk (Polyethylene Glycol 3350), 17 GM PO DAILY PRN for Constipation Review of Systems Constitutional: No fever, No chills Respiratory: + shortness of breath, + dyspnea at rest, No cough Cardiovascular: + edema, No chest pain Abdomen: + nausea, + diarrhea, No pain, No vomiting Musculoskeletal: + swelling Endocrine: + fatigue Physical Exam Vital Signs Date Time Temp Pulse Resp B/P (MAP) Pulse Ox O2 Delivery O2 Flow Rate FiO2 12/10/17 23:15 128/71 12/10/17 23:06 77 12/10/17 23:05 77 21 98 12/10/17 23:00 129/70 12/10/17 22:45 128/75 12/10/17 22:35 77 16 99 12/10/17 22:30 132/73 12/10/17 22:15 112/79 12/10/17 22:05 77 18 100 12/10/17 22:00 111/72 12/10/17 21:45 111/67 12/10/17 21:35 71 14 99 12/10/17 21:30 115/63 12/10/17 21:15 118/72 12/10/17 21:05 77 21 100 12/10/17 21:02 77 22 114/75 98 BiPAP 35 12/10/17 21:00 114/75 12/10/17 20:45 116/72 12/10/17 20:36 113/49 12/10/17 20:35 76 17 100 12/10/17 20:15 126/84 12/10/17 20:05 76 21 98 12/10/17 20:00 132/78 12/10/17 19:59 76 20 98 BiPAP 12/10/17 19:45 112/68 12/10/17 19:44 71 99 12/10/17 19:32 78 24 100/56 100 BiPAP 35 12/10/17 19:31 100/56 12/10/17 19:29 78 17 99 12/10/17 19:15 130/72 12/10/17 19:14 78 23 98 12/10/17 19:09 77 20 98 12/10/17 19:06 124/78 12/10/17 19:05 75 12/10/17 19:04 77 20 99 12/10/17 19:01 84/58 12/10/17 18:59 147 20 98 12/10/17 18:54 147 18 98 12/10/17 18:54 148 100 35 12/10/17 18:49 147 98 12/10/17 18:45 115/84 12/10/17 18:44 148 97 12/10/17 18:40 98 BiPAP 12/10/17 18:39 147 12 100 12/10/17 18:35 148 12/10/17 18:34 148 17 100 12/10/17 18:34 36.7 148 20 131/95 100 BiPAP 100 12/10/17 18:33 131/95 General Appearance: Awake, alert, on BiPAP, comfortable in general, NAD. Mouth: Mildly dry oral mucous membranes. CV: +S1S2 RRR, no murmur. Pulm: Diminished breath sounds throughout. Abdomen: +BS, soft, non-tender, notably distended with a small umbilical hernia. Extremities: Bilateral 1-2+ tibial and pedal edema. Moving arms without difficulty. Neuro: No gross neuro deficits. Diagnostics Laboratory Results Results Past 24 Hours Test 12/10/17 18:35 12/10/17 19:27 Range/Units White Blood Count 5.78 4.8-10.8 K/uL Red Blood Count 3.76 4.2-5.4 M/uL Hemoglobin 10.3 12.0-16.0 g/dL Hematocrit 36.0 37-47 % Mean Corpuscular Volume 95.7 80-100 fL Mean Corpuscular Hemoglobin 27.4 25-34 pg Mean Corpuscular Hemoglobin Concent 28.6 32-36 g/dl Platelet Count 221 130-400 K/uL Mean Platelet Volume 10.4 7.4-10.4 fL Neutrophils (%) (Auto) 67.5 % Lymphocytes (%) (Auto) 17.8 % Monocytes (%) (Auto) 13.8 % Eosinophils (%) (Auto) 0.5 % Basophils (%) (Auto) 0.2 % Neutrophils # (Auto) 3.90 1.4-6.5 K/uL Lymphocytes # (Auto) 1.03 1.2-3.4 K/uL Monocytes # (Auto) 0.80 0.11-0.59 K/uL Eosinophils # (Auto) 0.03 0-0.5 K/uL Basophils # (Auto) 0.01 0-0.2 K/uL RDW Standard Deviation 67.6 36.4-46.3 fL RDW Coefficient of Variation 19.4 11.5-14.5 % Immature Granulocyte % (Auto) 0.2 % Immature Granulocyte # (Auto) 0.01 0.00-0.02 K/uL Nucleated RBC Absolute Count (auto) 0.13 0-0 K/uL Nucleated Red Blood Cells % 2.2 % Hypochromasia PRESENT Prothrombin Time 14.8 9.0-12.0 SECONDS Prothromb Time International Ratio 1.4 0.9-1.1 Activated Partial Thromboplast Time 23.4 21.0-31.0 SECONDS Partial Thromboplastin Ratio 0.9 Sodium Level 134 136-145 mmol/L Potassium Level 5.0 3.5-5.1 mmol/L Chloride Level 97 98-107 mmol/L Carbon Dioxide Level 33 21-32 mmol/L Anion Gap 4.0 3-11 mmol/L Blood Urea Nitrogen 16 7-18 mg/dl Creatinine 0.83 0.60-1.20 mg/dl Est Creatinine Clear Calc Drug Dose 83.1 ml/min Estimated GFR () 87.6 Estimated GFR (Non- 75.6 BUN/Creatinine Ratio 19.1 10-20 Random Glucose 48 70-99 mg/dl Calcium Level 7.7 8.5-10.1 mg/dl Total Bilirubin 1.1 0.2-1 mg/dl Aspartate Amino Transf (AST/SGOT) 54 15-37 U/L Alanine Aminotransferase (ALT/SGPT) 24 12-78 U/L Alkaline Phosphatase 226 45-117 U/L Troponin I 0.016 0-0.045 ng/ml Pro-B-Type Natriuretic Peptide 2770 0-900 pg/ml Total Protein 6.5 6.4-8.2 gm/dl Albumin 2.7 3.4-5.0 gm/dl Globulin 3.8 2.5-4.0 gm/dl Albumin/Globulin Ratio 0.7 0.9-2 Campton Level < 0.2 0.6-1.2 mMOL/L Venous Blood pH 7.30 7.36-7.41 Venous Blood Partial Pressure CO2 82 38.0-50.0 mmHg Venous Blood Partial Pressure O2 37 mmHg Venous Blood HCO3 39 mmol/L Venous Blood Oxygen Saturation 64.1 % Venous Blood Base Excess 10.1 mEq/L Ammonia 83.0 11-32 umol/L Diagnostic Radiology CHEST ONE VIEW PORTABLE CLINICAL HISTORY: EVALUATE RESPIRATORY DISTRESS.DYSPNEA COMPARISON STUDY: Chest radiograph October 23, 2017. FINDINGS: There is no pneumothorax. Marked enlargement of the cardiac silhouette is unchanged. There is pulmonary vascular congestion. Apparent hazy left basilar opacity is likely artifactual. There is no lobar consolidation. IMPRESSION: Stable marked enlargement of the cardiac silhouette with pulmonary vascular congestion. EKG 1838: SVT rate 147 1901: NSR rate 77 Impression Assessment and Plan 62-year-old female admitted on 10 December 2017 for shortness of breath and found to be in SVT. PMH: Schizoaffective disorder, severe KORI, biventricular congestive heart failure, diabetes, HONK, hyponatremia, metabolic encephalopathy, acute renal failure, lithium toxicity, anemia. Shortness of breath: Patient states her BiPAP machine at home is broken. She has a history of noncompliance with BiPAP use leading to prior respiratory failure from CO2 retention and encephalopathy. Today, ED VBG notes mild respiratory alkalosis. Ammonia of 83. She was placed on BiPAP here. Portable chest x-ray here notes stable marked enlargement of the cardiac silhouette with pulmonary vascular congestion. No clear evidence of an acute infectious issue. - Will maintain on BiPAP here. - Continue home lactulose and Lasix dosing. Supraventricular tachycardia: Noted during her ED evaluation, controlled with adenosine. Patient has a history of the same during her September 2017 admission. Electrolytes were overall okay with exception of hypocalcemia. - Continued cardiac monitoring. Hypoglycemia, history of DM: Admit glucose of 48. Was given dextrose in ED. - Will provide some food acutely to help bring up blood glucose. - Continue home lantus. Sliding scale as well. Loose stools: Per daughter's report, began this morning. No known fevers and afebrile here. Abdomen is notably distended (likely volume overload) but no areas of focal tenderness. - For now, monitor for frequency before pursuing stool testing. Anemia: Admit hemoglobin 10.3. More recent hemoglobins have been around 12. No obvious evidence of acute bleeding. May be partially due to dilution. Monitor. Congestive heart failure: Admit BNP 2770. Generalized exam is consistent with some volume overload, likely due to noncompliance with recommended fluid restrictions. - Placed extra order for Lasix 40 mg IV x 1. - Otherwise continue home Lasix. Monitor I&Os, daily weights. Schizoaffective disorder: Presently on Haldol, no longer on lithium (and Campton level undetectable here). - Continue home Haldol. Obstructive sleep apnea: Apparently broken BiPAP machine as noted above. Can see about case management helping provider placement. Suspect seizure disorder: As noted during her hospitalization in September 2017. Continue home keppra. Home medications: Continue home lisinopril, magnesium oxide, metoprolol, nystatin, potassium. Code status: DNR. Diet: AHA, DM2, Low salt. Will start with fluid restrict to 1500, but may need modification. DVT prophy: Lovenox. PT/OT: Deferred Disbo: Admit to telemetry Attending addendum: I have physically seen this patient, have supervised the medical residents activities, and agree with the H&P unless as otherwise noted. Assessment and Plan: Shortness of breath/chronic respiratory failure/medical noncompliance/recently without BiPAP machine and inconsistent about taking medications-- Admit to the telemetry unit for close oxygen monitoring. Continue BiPAP resumed in the ED. Continue Combivent. Duonebs every 2 hours when necessary. SVT recurrence/hypertension/CHF/hypertension-- The patient will be admitted to telemetry for serial cardiac enzymes, serial EKG's, cardiac rhythm monitoring and a 2-D echocardiogram with Dopplers. Continue furosemide, lisinopril, mag oxide, metoprolol succinate, and potassium. Diabetes mellitus-- Continue Lantus insulin. Place on Accu-Cheks before meals and at bedtime with NovoLog coverage per scale. Patient's medical noncompliance continues to be the main reason for frequent readmissions. Advanced Directives Existing Advance Directive: Yes Existing Living Will: Yes Resuscitation Status VTE Prophylaxis Will order VTE Prophylaxis: Yes Resident Tracking Resident Involvement: Resident Care Provided Care Provided: Adult Hospital Medicine (admit)
--- NOTE | 2017-12-10 23:54 | EMERGENCY ROOM VISIT NOTE ---
History Report prepared by Jada: Giorgi Mosqueda Under the Supervision of: Dr. Jeremiah Cordova D.O. First contact with patient: 18:24 Stated Complaint: SOB, CARDIAC SX History of Present Illness The patient is a 62 year old female who presents to the Emergency Room with complaints of worsening shortness of breath beginning two days ago. The patient states he Bi-PAP machine has not been working for the past week. She reports she has also had increased swelling and fullness to her abdomen. EMS notes the patient's O2Sat was 85 on room air, so she was placed on C-PAP. They state the patient's O2Sat improved with C-PAP. The patient reports her last bowel movement was earlier today, and she had diarrhea. She notes she used to receive dialysis, but she has not received it since 2007 because she notes "Brando Mihir healed me". The patient states she is able to urinate on her own. She reports a history of CHF. The patient denies a history of liver disease and being on hospice. Source of History: patient Onset: two days ago Quality: other (SOB) Timing: worsening Modifying Factors (Relieving): other (C-PAP) Associated Symptoms: + diarrhea Review of Systems See HPI for pertinent positives & negatives. A total of 10 systems reviewed and were otherwise negative. Past Medical & Surgical Medical Problems: (1) ACUTE RENAL FAILURE NOS (2) Acute respiratory failure with hypoxia and hypercapnia (3) BIPOL I DIS, SING MANIC EPIS, SEVERE, SPEC W PSYCHOTIC BEHAV (4) Change in mental status (5) Congestive heart failure (CHF) (6) DIAB ROSA WO COMPL, TYPE II OR UNSPEC TYPE, NOT UNCNTRLD (7) HONK, new right arm weakness possible need to rule out CVA (8) Hyponatremia (9) Lethargy (10) [place] toxicity (11) Metabolic alkalosis (12) Metabolic encephalopathy (13) Palliative care encounter (14) Schizoaffective disorder, bipolar type without good prognostic features (15) Seizure-like activity (16) Seizure-like activity (17) Weakness Family History FH: HTN (hypertension) FH: diabetes mellitus Heart disease Social History Smoking Status: Never Smoker Alcohol Use: none Drug Use: none Marital Status: Housing Status: lives with family Occupation Status: retired Current/Historical Medications Scheduled Benzonatate (Tessalon Perles), 200 MG PO Q8 Cholecalciferol (Vitamin D3), 1,000 INTER.UNIT PO BID Furosemide (Furosemide), 40 MG PO QPM Furosemide (Furosemide), 80 MG PO QAM Haloperidol (Haldol), 0.5 MG PO HS Haloperidol Decanoate (Haldol Decanoate 100), 1 ML IM MONTHLY Insulin Aspart (Novolog), 0 SQ UD Insulin Glargine (Lantus Solostar), 14 UNITS SQ AMPM Ipratropium-Albuterol (Combivent Respimat), 1 PUFFS INH QID Lactulose (Chronulac), 30 GM PO TID Levetiracetam (Keppra), 750 MG PO BID Lisinopril (Lisinopril), 5 MG PO QAM Magnesium Oxide (Mag-Ox), 400 MG PO BID Metoprolol Succinate (Toprol Xl), 50 MG PO DAILY Nystatin (Nystop), 1 APPLN TOP BID Potassium Chloride (Micro-K Ext Rel), 160 MEQ PO QAM Potassium Chloride (K-Tabs), 40 MEQ PO DAILY@1200 Potassium Chloride (Micro-K Ext Rel), 80 MEQ PO QPM Scheduled PRN Polyethylene Glycol 3350 (Bulk (Polyethylene Glycol 3350), 17 GM PO DAILY PRN for Constipation Allergies Coded Allergies: Penicillins (Unverified Allergy, Unknown, unknown, 10/01/17) Physical Exam Vital Signs Date Time Temp Pulse Resp B/P (MAP) Pulse Ox O2 Delivery O2 Flow Rate FiO2 12/10/17 23:15 128/71 12/10/17 23:06 77 12/10/17 23:05 77 21 98 12/10/17 23:00 129/70 12/10/17 22:45 128/75 12/10/17 22:35 77 16 99 12/10/17 22:30 132/73 12/10/17 22:15 112/79 12/10/17 22:05 77 18 100 12/10/17 22:00 111/72 12/10/17 21:45 111/67 12/10/17 21:35 71 14 99 12/10/17 21:30 115/63 12/10/17 21:15 118/72 12/10/17 21:05 77 21 100 12/10/17 21:02 77 22 114/75 98 BiPAP 35 6/30/18 21:00 114/75 12/10/17 20:45 116/72 12/10/17 20:36 113/49 12/10/17 20:35 76 17 100 12/10/17 20:15 126/84 12/10/17 20:05 76 21 98 12/10/17 20:00 132/78 12/10/17 19:59 76 20 98 BiPAP 12/10/17 19:45 112/68 12/10/17 19:44 71 99 12/10/17 19:32 78 24 100/56 100 BiPAP 35 12/10/17 19:31 100/56 12/10/17 19:29 78 17 99 12/10/17 19:15 130/72 12/10/17 19:14 78 23 98 12/10/17 19:09 77 20 98 12/10/17 19:06 124/78 12/10/17 19:05 75 12/10/17 19:04 77 20 99 12/10/17 19:01 84/58 12/10/17 18:59 147 20 98 12/10/17 18:54 147 18 98 12/10/17 18:54 148 100 35 12/10/17 18:49 147 98 12/10/17 18:45 115/84 12/10/17 18:44 148 97 12/10/17 18:40 98 BiPAP 12/10/17 18:39 147 12 100 12/10/17 18:35 148 12/10/17 18:34 148 17 100 12/10/17 18:34 36.7 148 20 131/95 100 BiPAP 100 12/10/17 18:33 131/95 Physical Exam GENERAL: Sitting up in bed, alert, significant distress, dyspneic, on Bi-PAP. EYE EXAM: normal conjunctiva. OROPHARYNX: no exudate, no erythema, lips, buccal mucosa, and tongue normal and mucous membranes are moist NECK: supple, no nuchal rigidity, no adenopathy, non-tender LUNGS: Clear to auscultation. Normal chest wall mechanics. Diminished throughout. HEART: Tachycardic rate, no murmurs, S1 normal and S2 normal ABDOMEN: abdomen is obese, distended with pitting edema, non-tender, normo- active bowel sounds, no masses, no rebound or guarding. BACK: Back is symmetrical on inspection and there is no deformity, no midline tenderness, no CVA tenderness. SKIN: no rashes and no bruising UPPER EXTREMITIES: upper extremities are grossly normal. LOWER EXTREMITIES: pitting edema bilaterally. NEURO EXAM: Normal sensorium, cranial nerves II-XII grossly intact, normal speech, no gross weakness of arms, no gross weakness of legs. Medical Decision & Procedures ER Provider Diagnostic Interpretation: Radiology results as stated below per my review and the radiologist's interpretation: CHEST ONE VIEW PORTABLE CLINICAL HISTORY: EVALUATE RESPIRATORY DISTRESS.DYSPNEA COMPARISON STUDY: Chest radiograph October 23, 2017. FINDINGS: There is no pneumothorax. Marked enlargement of the cardiac silhouette is unchanged. There is pulmonary vascular congestion. Apparent hazy left basilar opacity is likely artifactual. There is no lobar consolidation. IMPRESSION: Stable marked enlargement of the cardiac silhouette with pulmonary vascular congestion. Electronically signed by: Santana Lundy M.D. 12/10/2017 7:29 PM Dictated Date/Time: 12/10/2017 7:27 PM Laboratory Results 12/10/17 18:35 Red Blood Count 3.76, Mean Corpuscular Volume 95.7, Mean Corpuscular Hemoglobin 27.4, Mean Corpuscular Hemoglobin Concent 28.6, Mean Platelet Volume 10.4, Neutrophils (%) (Auto) 67.5, Lymphocytes (%) (Auto) 17.8, Monocytes (%) (Auto) 13.8, Eosinophils (%) (Auto) 0.5, Basophils (%) (Auto) 0.2, Neutrophils # (Auto ) 3.90, Lymphocytes # (Auto) 1.03, Monocytes # (Auto) 0.80, Eosinophils # (Auto ) 0.03, Basophils # (Auto) 0.01 12/10/17 18:35 Test 12/10/17 18:35 12/10/17 19:27 White Blood Count 5.78 K/uL (4.8-10.8) Red Blood Count 3.76 M/uL (4.2-5.4) Hemoglobin 10.3 g/dL (12.0-16.0) Hematocrit 36.0 % (37-47) Mean Corpuscular Volume 95.7 fL (80-100) Mean Corpuscular Hemoglobin 27.4 pg (25-34) Mean Corpuscular Hemoglobin Concent 28.6 g/dl (32-36) Platelet Count 221 K/uL (130-400) Mean Platelet Volume 10.4 fL (7.4-10.4) Neutrophils (%) (Auto) 67.5 % Lymphocytes (%) (Auto) 17.8 % Monocytes (%) (Auto) 13.8 % Eosinophils (%) (Auto) 0.5 % Basophils (%) (Auto) 0.2 % Neutrophils # (Auto) 3.90 K/uL (1.4-6.5) Lymphocytes # (Auto) 1.03 K/uL (1.2-3.4) Monocytes # (Auto) 0.80 K/uL (0.11-0.59) Eosinophils # (Auto) 0.03 K/uL (0-0.5) Basophils # (Auto) 0.01 K/uL (0-0.2) RDW Standard Deviation 67.6 fL (36.4-46.3) RDW Coefficient of Variation 19.4 % (11.5-14.5) Immature Granulocyte % (Auto) 0.2 % Immature Granulocyte # (Auto) 0.01 K/uL (0.00-0.02) Nucleated RBC Absolute Count (auto) 0.13 K/uL (0-0) Nucleated Red Blood Cells % 2.2 % Hypochromasia PRESENT Prothrombin Time 14.8 SECONDS (9.0-12.0) Prothromb Time International Ratio 1.4 (0.9-1.1) Activated Partial Thromboplast Time 23.4 SECONDS (21.0-31.0) Partial Thromboplastin Ratio 0.9 Anion Gap 4.0 mmol/L (3-11) Est Creatinine Clear Calc Drug Dose 83.1 ml/min Estimated GFR () 87.6 Estimated GFR (Non- 75.6 BUN/Creatinine Ratio 19.1 (10-20) Calcium Level 7.7 mg/dl (8.5-10.1) Total Bilirubin 1.1 mg/dl (0.2-1) Aspartate Amino Transf (AST/SGOT) 54 U/L (15-37) Alanine Aminotransferase (ALT/SGPT) 24 U/L (12-78) Alkaline Phosphatase 226 U/L (45-117) Troponin I 0.016 ng/ml (0-0.045) Pro-B-Type Natriuretic Peptide 2770 pg/ml (0-900) Total Protein 6.5 gm/dl (6.4-8.2) Albumin 2.7 gm/dl (3.4-5.0) Globulin 3.8 gm/dl (2.5-4.0) Albumin/Globulin Ratio 0.7 (0.9-2) [place] Level < 0.2 mMOL/L (0.6-1.2) Venous Blood pH 7.30 (7.36-7.41) Venous Blood Partial Pressure CO2 82 mmHg (38.0-50.0) Venous Blood Partial Pressure O2 37 mmHg Venous Blood HCO3 39 mmol/L Venous Blood Oxygen Saturation 64.1 % Venous Blood Base Excess 10.1 mEq/L Ammonia 83.0 umol/L (11-32) Laboratory results per my review. Medications Administered Medications (Trade) Dose Ordered Sig/Nanette Route Start Time Stop Time Status Last Admin Dose Admin Adenosine (Adenosine Iv) 18 mg STK-MED ONCE .ROUTE 12/10/17 18:46 12/10/17 18:47 DC 12/10/17 18:57 18 MG Dextrose (Dextrose 50% 50ML Syringe) 50 ml NOW ONCE IV 12/10/17 19:45 12/10/17 19:46 DC 12/10/17 19:49 50 ML ECG Per My Interpretation Indication: SOB/dyspnea Rate (beats per minute): 147 Rhythm: SVT Findings: PVC, other (Normal axis) Change: Second EKG after conversion: Sinus rhythm with a rate of 77. Normal axis. Rightward axis deviation. ED Course ED COURSE: Vital signs were reviewed and showed tachycardia and hypoxia. The patients medical record was reviewed The above diagnostic studies were performed and reviewed. ED treatments and interventions as stated above. 5: The patient was evaluated in room A01. A complete history and physical examination was performed. 1841: I reevaluated the patient and updated her of her current test results. She is going to receive adenosine. 1845: Ordered Adenosine 18mg IV 1853: The patient was given 6mg of Adenosine IV and then another 12mg IV. The patient converted to a sinus rhythm. 1901: Upon reevaluation, the patient is resting and still in a sinus rhythm. I discussed my findings with the patient and she understands and agrees with the treatment plan. 5: Ordered Dextrose 50ml IV 1945: I discussed the patient's case with Dr. Suarez [facility] Hospitalist. The patient will be evaluated for further management and care. Based on the patients age, coexisting illnesses, exam and lab findings the decision to treat as an inpatient was made. The patient remained stable while under my care. The patient will be evaluated for further management. Medical Decision Differential diagnoses includes but is not limited to pneumonia, bronchitis, COPD/Asthma exacerbation, pneumothorax, pulmonary embolism, congestive heart failure, acute coronary syndrome. Patient is a 62-year-old female who presents to ER via EMS in respiratory distress. She is placed on CPAP and found to be in SVT at 150. I did receive medical command on her. Upon arrival patient was placed on BiPAP from CPAP. She has diffuse pitting edema throughout. She was continued on BiPAP throughout her stay in the ER. She was given adenosine 6 mg initially as her EKG showed an SVT and I did believe that the likely underlying rhythm was a flutter with a 2-1 block. 6 mg did not work and consequently she was given 12 mg. After this she broke into a sinus rhythm confirming that this was SVT. BMP was fairly unremarkable. BSG was 48 she was given an amp of D50. Ammonia was slightly elevated at 83 although she was mentating. VBG with a pH of 7.30 and a CO2 of 82 after she had been on CPAP/BiPAP for a total of close to 20 minutes. Family was updated bedside. Discussed with internal medicine. She is managed in the ER on BiPAP and admitted to internal medicine. Medication Reconcilliation Current Medication List: was personally reviewed by me Blood Pressure Screening Patient's blood pressure: Normal blood pressure Blood pressure disposition: Did not require urgent referral Consults Time Called: 1923 Consulting Physician: Dr. Suarez [facility] Hospitalist Returned Call: 1945 I discussed the patient's case with Dr. Suarez [facility] Hospitalist. The patient will be evaluated for further management and care. Impression Primary Impression: Congestive heart failure (CHF) Additional Impressions: Respiratory failure with hypoxia SVT (supraventricular tachycardia) Critical Care I have personally spent 35 minutes of critical care time in the direct management of this patient. This includes bedside care, interpretation of diagnostic studies, and testing, discussion with consultants, patient, and family members, and other required patient management activities. This 35 minutes is in excess of all separately billable procedures. Scribe Attestation The scribe's documentation has been prepared under my direction and personally reviewed by me in its entirety. I confirm that the note above accurately reflects all work, treatment, procedures, and medical decision making performed by me. Departure Information Dispostion Being Evaluated By Hospitalist Referrals Bin Patel M.D. (PCP) Problem Qualifiers Primary Impression: Congestive heart failure (CHF) Heart failure type: unspecified Heart failure chronicity: unspecified Qualified Codes: I50.9 - Heart failure, unspecified Additional Impressions: Respiratory failure with hypoxia Chronicity: acute Qualified Codes: J96.01 - Acute respiratory failure with hypoxia
[2017-12-11] VITALS (11 sets, daily range): BP systolic 107–132; BP diastolic 63–90; PULSE 71–92; TEMP 36.4–37.2; O2SAT 92–100; BMI 41.4; BMI 45.1
[2017-12-11] MEDS ORDERED: FUROSEMIDE INJ 40 MG in SYRINGE 0 ML IV ONE
[2017-12-11] MEDS ORDERED: DEXTROSE 50% 50 ML SYR IV PRN
[2017-12-11] MEDS ORDERED: CARBOHYDRATES FOR HYPOGLYCEMIA PO PRN
[2017-12-11] MEDS ORDERED: GLUCOSE 40% GEL 15 GM TUBE PO PRN
[2017-12-11] MEDS ORDERED: GLUCOSE 10 TABS/TUBE PO PRN
[2017-12-11] MEDS ORDERED: GLUCAGON FOR INJ 1 MG VIAL SQ PRN
[2017-12-11] MEDS ORDERED: FUROSEMIDE 40 MG/4 ML VIAL IV STA (00:01)
[2017-12-11] MEDS ORDERED: DEXTROSE 50% 50 ML SYR ONE (00:01)
[2017-12-11] MEDS: ACETAMINOPHEN 325 MG TAB PO PRN ×3 (03:56→19:47)
[2017-12-11] MEDS: BENZONATATE 100MG CAP PO SCH ×3 (06:07→21:01)
[2017-12-11] MEDS: INSULIN ASPART 100 UNITS/ML 3 ML PEN SC SCH ×4 (07:00→21:26)
[2017-12-11 07:42] LABS: BASO % 0.2 %; BASO ABS # 0.01 K/uL (0-0.2); HEMATOCRIT 36.4 % (37-47); HEMOGLOBIN 10.5 g/dL (12.0-16.0); IG# 0.01 K/uL (0.00-0.02); LYMPH % 18.4 %; LYMPH ABS # 1.01 K/uL (1.2-3.4); MEAN CELL VOLUME 94.1 fL (80-100); MEAN CORPUSCULAR HEMOGLOBIN 27.1 pg (25-34); MEAN CORPUSCULAR HGB CONC 28.8 g/dl (32-36); MEAN PLATELET VOLUME 9.7 fL (7.4-10.4); MONO % 17.5 %; MONO ABS # 0.96 K/uL (0.11-0.59); NEUT % 63.7 %; NUCLEATED RED BLOOD CELL ABS 0.07 K/uL (0-0); PLATELET COUNT 214 K/uL (130-400); RED CELL DISTRIBUTION WIDTH CV 19.8 % (11.5-14.5); RED CELL DISTRIBUTION WIDTH SD 67.6 fL (36.4-46.3); WHITE BLOOD COUNT 5.49 K/uL (4.8-10.8)
--- NOTE | 2017-12-11 08:12 | Progress Note ---
Subjective Date of Service: Dec 11, 2017. Subjective this pt feels tired and remains dyspneic, she admits that her bipap was not working, and that her was out of town Problem List Medical Problems: (1) Acute CHF Status: Acute (2) Acute renal failure (ARF) Status: Acute (3) Change in mental status Status: Acute (4) CHF (congestive heart failure) Status: Acute (5) CHF (congestive heart failure) Status: Acute (6) CHF exacerbation Status: Acute (7) CO2 retention Status: Acute (8) Congestive heart failure (CHF) Status: Chronic (9) Dehydration Status: Acute (10) DKA (diabetic ketoacidoses) Status: Acute (11) Elevated lithium level Status: Acute (12) Elevated troponin Status: Acute (13) Extrapyramidal and movement disorder Status: Acute (14) Fall Status: Acute (15) Hyperammonemia Status: Acute (16) Hyperammonemia Status: Acute (17) Hyperammonemia Permanent Comment: Non cirrhotic hyperammonemia Status: Acute (18) Hyperammonemia Status: Acute (19) Hypercalcemia Status: Acute (20) Hypercarbia Status: Acute (21) Hypercarbia Status: Acute (22) Hypercarbia Status: Acute (23) Hyperglycemia Status: Acute (24) Hyperglycemia Status: Acute (25) Hyperglycemia without ketosis Status: Acute (26) Hyperkalemia Status: Acute (27) Hyperosmolality Status: Acute (28) Hypoglycemia Status: Acute (29) Hypokalemia Status: Acute (30) Hypokalemia Status: Acute (31) Hyponatremia Status: Acute (32) Hyponatremia Status: Acute (33) Hyponatremia Status: Acute (34) Hypoxia Status: Acute (35) Hypoxia Status: Acute (36) Left arm swelling Status: Acute (37) Lower extremity weakness Status: Acute (38) Renal insufficiency Status: Acute (39) Respiratory failure with hypoxia Status: Acute (40) Seizure Status: Acute (41) SOB (shortness of breath) Status: Acute (42) SVT (supraventricular tachycardia) Status: Acute (43) Systolic CHF, acute on chronic Status: Acute (44) Weakness Status: Acute Review of Systems Constitutional: + weakness, + fatigue, No fever, No chills Respiratory: + shortness of breath, + dyspnea on exertion, No cough Cardiac: + edema, No chest pain Abdomen: No pain, No nausea, No vomiting, No diarrhea Female : No dysuria, No urinary frequency, No hematuria Psychiatric: No depression symptoms, No anxiety Skin: + itch, No rash Objective Vital Signs Date Time Temp Pulse Resp B/P (MAP) Pulse Ox O2 Delivery O2 Flow Rate FiO2 12/11/17 04:01 36.8 80 17 113/68 (83) 95 BiPAP 35 12/11/17 04:00 BiPAP 12/11/17 01:54 73 93 35 12/11/17 00:42 79 16 126/82 99 12/11/17 00:22 36.7 80 22 121/74 100 Nasal Cannula 4.0 12/11/17 00:20 75 16 99 12/11/17 00:15 126/82 12/11/17 00:05 77 19 100 12/11/17 00:01 128/60 12/10/17 23:50 76 17 99 12/10/17 23:45 120/74 12/10/17 23:35 73 18 100 12/10/17 23:30 121/55 12/10/17 23:20 75 18 100 12/10/17 23:15 128/71 12/10/17 23:06 77 12/10/17 23:05 77 21 98 12/10/17 23:00 129/70 12/10/17 22:45 128/75 12/10/17 22:35 77 16 99 12/10/17 22:30 132/73 12/10/17 22:15 112/79 12/10/17 22:05 77 18 100 12/10/17 22:00 111/72 12/10/17 21:45 111/67 12/10/17 21:35 71 14 99 12/10/17 21:30 115/63 12/10/17 21:15 118/72 12/10/17 21:05 77 21 100 12/10/17 21:02 77 22 114/75 98 BiPAP 35 12/10/17 21:00 114/75 12/10/17 20:45 116/72 12/10/17 20:36 113/49 12/10/17 20:35 76 17 100 12/10/17 20:15 126/84 12/10/17 20:05 76 21 98 12/10/17 20:00 132/78 12/10/17 19:59 76 20 98 BiPAP 12/10/17 19:45 112/68 12/10/17 19:44 71 99 12/10/17 19:32 78 24 100/56 100 BiPAP 35 12/10/17 19:31 100/56 12/10/17 19:29 78 17 99 12/10/17 19:15 130/72 12/10/17 19:14 78 23 98 12/10/17 19:09 77 20 98 12/10/17 19:06 124/78 12/10/17 19:05 75 12/10/17 19:04 77 20 99 12/10/17 19:01 84/58 12/10/17 18:59 147 20 98 12/10/17 18:54 147 18 98 12/10/17 18:54 148 100 35 12/10/17 18:49 147 98 12/10/17 18:45 115/84 12/10/17 18:44 148 97 12/10/17 18:40 98 BiPAP 12/10/17 18:39 147 12 100 12/10/17 18:35 148 12/10/17 18:34 148 17 100 12/10/17 18:34 36.7 148 20 131/95 100 BiPAP 100 12/10/17 18:33 131/95 Physical Exam General Appearance: WD/WN, + mild distress Eyes: normal inspection, sclerae normal Neck: supple Respiratory/Chest: + respiratory distress, + accessory muscle use Cardiovascular: regular rate, rhythm, + systolic murmur Abdomen: normal bowel sounds, non tender, soft Extremities: + pedal edema, + swelling 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: alert, oriented x 3 Laboratory Results Last 24 Hours Test 12/10/17 18:35 12/10/17 19:27 12/10/17 20:06 12/10/17 23:59 White Blood Count 5.78 K/uL Red Blood Count 3.76 M/uL Hemoglobin 10.3 g/dL Hematocrit 36.0 % Mean Corpuscular Volume 95.7 fL Mean Corpuscular Hemoglobin 27.4 pg Mean Corpuscular Hemoglobin Concent 28.6 g/dl Platelet Count 221 K/uL Mean Platelet Volume 10.4 fL Neutrophils (%) (Auto) 67.5 % Lymphocytes (%) (Auto) 17.8 % Monocytes (%) (Auto) 13.8 % Eosinophils (%) (Auto) 0.5 % Basophils (%) (Auto) 0.2 % Neutrophils # (Auto) 3.90 K/uL Lymphocytes # (Auto) 1.03 K/uL Monocytes # (Auto) 0.80 K/uL Eosinophils # (Auto) 0.03 K/uL Basophils # (Auto) 0.01 K/uL RDW Standard Deviation 67.6 fL RDW Coefficient of Variation 19.4 % Immature Granulocyte % (Auto) 0.2 % Immature Granulocyte # (Auto) 0.01 K/uL Nucleated RBC Absolute Count (auto) 0.13 K/uL Nucleated Red Blood Cells % 2.2 % Hypochromasia PRESENT Prothrombin Time 14.8 SECONDS Prothromb Time International Ratio 1.4 Activated Partial Thromboplast Time 23.4 SECONDS Partial Thromboplastin Ratio 0.9 Sodium Level 134 mmol/L Potassium Level 5.0 mmol/L Chloride Level 97 mmol/L Carbon Dioxide Level 33 mmol/L Anion Gap 4.0 mmol/L Blood Urea Nitrogen 16 mg/dl Creatinine 0.83 mg/dl Est Creatinine Clear Calc Drug Dose 83.1 ml/min Estimated GFR () 87.6 Estimated GFR (Non- 75.6 BUN/Creatinine Ratio 19.1 Random Glucose 48 mg/dl Calcium Level 7.7 mg/dl Total Bilirubin 1.1 mg/dl Aspartate Amino Transf (AST/SGOT) 54 U/L Alanine Aminotransferase (ALT/SGPT) 24 U/L Alkaline Phosphatase 226 U/L Troponin I 0.016 ng/ml Pro-B-Type Natriuretic Peptide 2770 pg/ml Total Protein 6.5 gm/dl Albumin 2.7 gm/dl Globulin 3.8 gm/dl Albumin/Globulin Ratio 0.7 [place] Level < 0.2 mMOL/L Venous Blood pH 7.30 Venous Blood Partial Pressure CO2 82 mmHg Venous Blood Partial Pressure O2 37 mmHg Venous Blood HCO3 39 mmol/L Venous Blood Oxygen Saturation 64.1 % Venous Blood Base Excess 10.1 mEq/L Ammonia 83.0 umol/L Bedside Glucose 101 mg/dl 64 mg/dl Test 12/11/17 01:03 12/11/17 04:00 12/11/17 07:17 12/11/17 07:25 Bedside Glucose 100 mg/dl 102 mg/dl 88 mg/dl White Blood Count 5.49 K/uL Red Blood Count 3.87 M/uL Hemoglobin 10.5 g/dL Hematocrit 36.4 % Mean Corpuscular Volume 94.1 fL Mean Corpuscular Hemoglobin 27.1 pg Mean Corpuscular Hemoglobin Concent 28.8 g/dl Platelet Count 214 K/uL Mean Platelet Volume 9.7 fL Neutrophils (%) (Auto) 63.7 % Lymphocytes (%) (Auto) 18.4 % Monocytes (%) (Auto) 17.5 % Eosinophils (%) (Auto) 0.0 % Basophils (%) (Auto) 0.2 % Neutrophils # (Auto) 3.50 K/uL Lymphocytes # (Auto) 1.01 K/uL Monocytes # (Auto) 0.96 K/uL Eosinophils # (Auto) 0.00 K/uL Basophils # (Auto) 0.01 K/uL RDW Standard Deviation 67.6 fL RDW Coefficient of Variation 19.8 % Immature Granulocyte % (Auto) 0.2 % Immature Granulocyte # (Auto) 0.01 K/uL Nucleated RBC Absolute Count (auto) 0.07 K/uL Nucleated Red Blood Cells % 1.3 % Venous Blood pH 7.33 Venous Blood Partial Pressure CO2 77 mmHg Venous Blood Partial Pressure O2 59 mmHg Venous Blood HCO3 40 mmol/L Venous Blood Oxygen Saturation 83.6 % Venous Blood Base Excess 11.9 mEq/L Assessment and Plan 62-year-old female admitted on 10 December 2017 for shortness of breath and found to be in SVT. has acute mixed systolic and diastolic heart failure precipitated by compliance issues associated with bipap machine not working PMH: Schizoaffective disorder, severe KORI, biventricular congestive heart failure, diabetes, HONK, hyponatremia, metabolic encephalopathy, acute renal failure, lithium toxicity, anemia. acute on chronic systolic and diastoic heart failure ( from valvular heart disease and EF 45%)Shortness of breath: Patient states her BiPAP machine at home is broken. She has a history of noncompliance with BiPAP use leading to prior respiratory failure from CO2 retention and encephalopathy. mild respiratory alkalosis. Ammonia of 83. BiPAP started here as chest x ray suggests heart failure - lactulose and Lasix iv bid dosing. hf protocol follow weights Supraventricular tachycardia: resolved after adenosine. Patient has a history of the same during her September 2017 admission. Hypoglycemia, history of DM: Admit glucose of 48. Was given dextrose in ED. -did have poor nutrition at home due to illness continue with lantus and Sliding scale Loose stools: No known fevers. Abdomen is notably distended Anemia: Admit hemoglobin 10.3. More recent hemoglobins have been around 12. Acute on chronic systolic and diastolic heart failure: Admit BNP 2770, influenced by non treated sleep apnea given broken bipap, lasix Schizoaffective disorder: Presently on Haldol, no longer on lithium (and [place] level undetectable here). - Continue Haldol. Obstructive sleep apnea: Apparently broken BiPAP machine case management to help providing replacement. Suspect seizure disorder: As noted during her hospitalization in September 2017. Continue keppra. HTN lisinopril, metoprolol Code status: DNR. DVT prophy: Scottie.
[2017-12-11] MEDS: METOPROLOL SUCC 50MG EXT REL TAB PO SCH (08:18)
[2017-12-11] MEDS: NYSTATIN POWDER 15GM BTL EXT SCH ×2 (08:18→21:00)
[2017-12-11] MEDS: LISINOPRIL 5 MG TAB PO SCH (08:19)
[2017-12-11] MEDS: MAGNESIUM OXIDE 400 MG TAB PO SCH ×2 (08:21→19:49)
[2017-12-11 08:22] LABS: CALCIUM 9.2 mg/dl (8.5-10.1); CREATININE 0.95 mg/dl (0.60-1.20); PHOSPHORUS 3.8 mg/dl (2.5-4.9); POTASSIUM 4.7 mmol/L (3.5-5.1); TOTAL PROTEIN 7.6 gm/dl (6.4-8.2)
[2017-12-11] MEDS: LACTULOSE SYRUP 30 GM/45 ML UDP PO SCH ×3 (08:23→19:53)
[2017-12-11] MEDS: IPRATROPIUM BROMIDE/ALBUTEROL respimat INH INH SCH ×4 (08:23→19:48)
[2017-12-11] MEDS: LEVETIRACETAM 250 MG TAB PO SCH ×2 (08:23→19:49)
[2017-12-11] MEDS ORDERED: INSULIN GLARGINE SOLOSTAR 100 UNITS/ML 3 ML PEN SQ SCH (09:00)
[2017-12-11] MEDS ORDERED: FUROSEMIDE 80 MG TAB PO SCH (09:00)
[2017-12-11] MEDS: FUROSEMIDE INJ 80 MG in SYRINGE 0 ML IV SCH (10:56)
[2017-12-11] MEDS: POTASSIUM CHLORIDE 20 MEQ TABCR PO SCH ×2 (10:56→19:48)
[2017-12-11] MEDS: ENOXAPARIN 40 MG/0.4 ML SYR SC SCH (10:57)
[2017-12-11] MEDS: FUROSEMIDE INJ 40 MG in SYRINGE 0 ML IV SCH (19:48)
[2017-12-11] MEDS: HALOPERIDOL 0.5 MG TAB PO SCH (19:49)
[2017-12-11] MEDS ORDERED: FUROSEMIDE 40 MG TAB PO SCH (21:00)
[2017-12-11] MEDS: INSULIN GLARGINE SOLOSTAR 100 UNITS/ML 3 ML PEN SQ SCH (22:19)
[2017-12-12] VITALS (7 sets, daily range): BP systolic 109–129; BP diastolic 60–91; PULSE 72–89; TEMP 36.4–36.8; O2SAT 95–100
[2017-12-12] MEDS: ACETAMINOPHEN 325 MG TAB PO PRN ×3 (01:35→20:18)
[2017-12-12] MEDS: BENZONATATE 100MG CAP PO SCH ×3 (06:00→20:19)
[2017-12-12] MEDS: INSULIN ASPART 100 UNITS/ML 3 ML PEN SC SCH ×4 (07:00→20:27)
[2017-12-12] MEDS: LACTULOSE SYRUP 30 GM/45 ML UDP PO SCH ×3 (07:24→19:33)
[2017-12-12] MEDS: MAGNESIUM OXIDE 400 MG TAB PO SCH ×2 (08:42→20:21)
[2017-12-12] MEDS: LEVETIRACETAM 250 MG TAB PO SCH ×2 (08:43→20:20)
[2017-12-12] MEDS: LISINOPRIL 5 MG TAB PO SCH (08:43)
[2017-12-12] MEDS: POTASSIUM CHLORIDE 20 MEQ TABCR PO SCH ×2 (08:44→20:19)
[2017-12-12] MEDS: INSULIN GLARGINE SOLOSTAR 100 UNITS/ML 3 ML PEN SQ SCH ×2 (08:45→20:28)
[2017-12-12] MEDS: FUROSEMIDE INJ 80 MG in SYRINGE 0 ML IV SCH (08:46)
[2017-12-12] MEDS: IPRATROPIUM BROMIDE/ALBUTEROL respimat INH INH SCH ×4 (08:47→20:18)
[2017-12-12] MEDS: METOPROLOL SUCC 50MG EXT REL TAB PO SCH (08:47)
[2017-12-12] MEDS: ENOXAPARIN 40 MG/0.4 ML SYR SC SCH (08:48)
[2017-12-12] MEDS: NYSTATIN POWDER 15GM BTL EXT SCH ×2 (08:50→20:18)
--- NOTE | 2017-12-12 16:09 | Progress Note ---
Subjective Date of Service: Dec 12, 2017. Subjective Pt evaluation today including: conversation w/ patient, chart review, lab review, review of studies, review of inpatient medication list Sitting on chair, getting feeding, reported good appetite eating everything, report several soft stools, Problem List Medical Problems: (1) Acute CHF Status: Acute (2) Acute renal failure (ARF) Status: Acute (3) Change in mental status Status: Acute (4) CHF (congestive heart failure) Status: Acute (5) CHF (congestive heart failure) Status: Acute (6) CHF exacerbation Status: Acute (7) CO2 retention Status: Acute (8) Congestive heart failure (CHF) Status: Chronic (9) Dehydration Status: Acute (10) DKA (diabetic ketoacidoses) Status: Acute (11) Elevated lithium level Status: Acute (12) Elevated troponin Status: Acute (13) Extrapyramidal and movement disorder Status: Acute (14) Fall Status: Acute (15) Hyperammonemia Status: Acute (16) Hyperammonemia Status: Acute (17) Hyperammonemia Permanent Comment: Non cirrhotic hyperammonemia Status: Acute (18) Hyperammonemia Status: Acute (19) Hypercalcemia Status: Acute (20) Hypercarbia Status: Acute (21) Hypercarbia Status: Acute (22) Hypercarbia Status: Acute (23) Hyperglycemia Status: Acute (24) Hyperglycemia Status: Acute (25) Hyperglycemia without ketosis Status: Acute (26) Hyperkalemia Status: Acute (27) Hyperosmolality Status: Acute (28) Hypoglycemia Status: Acute (29) Hypokalemia Status: Acute (30) Hypokalemia Status: Acute (31) Hyponatremia Status: Acute (32) Hyponatremia Status: Acute (33) Hyponatremia Status: Acute (34) Hypoxia Status: Acute (35) Hypoxia Status: Acute (36) Left arm swelling Status: Acute (37) Lower extremity weakness Status: Acute (38) Renal insufficiency Status: Acute (39) Respiratory failure with hypoxia Status: Acute (40) Seizure Status: Acute (41) SOB (shortness of breath) Status: Acute (42) SVT (supraventricular tachycardia) Status: Acute (43) Systolic CHF, acute on chronic Status: Acute (44) Weakness Status: Acute Review of Systems Constitutional: + weakness, + fatigue, No fever, No chills, No sweats, No weight loss, No problem reported Eyes: No worsening of vision, No eye pain, No redness, No discharge, No diplopia ENT: No hearing loss, No unusual epistaxis, No nasal symptoms, No sore throat, No tinnitus, No dental problems, No trouble swallowing Respiratory: + shortness of breath, No cough, No sputum, No wheezing, No dyspnea on exertion, No dyspnea at rest, No hemoptysis Cardiac: + edema (Trace), No chest pain, No orthopnea, No PND, No claudication , No palpitations Abdomen: No pain, No nausea, No vomiting, No diarrhea, No constipation Musculoskeletal: No joint pain, No muscle pain, No swelling, No calf pain Female : No dysuria, No urinary frequency, No hematuria, No incontinence, No abnormal vaginal bleeding, No vaginal discharge Neurologic: No memory loss, No paralysis, No weakness, No numbness/tingling, No vertigo, No balance problems Psychiatric: No depression symptoms, No anhedonism, No anxiety, No insomnia, No substance abuse Heme: No abnormal bleeding/bruising, No clotting problems, No swollen lymph nodes, No night sweats Endo: No fatigue, No excessive thirst, No excessive urination Skin: No rash, No itch, No new/changing skin lesions, No color change, No bleeding Objective Vital Signs Date Time Temp Pulse Resp B/P (MAP) Pulse Ox O2 Delivery O2 Flow Rate FiO2 12/12/17 14:17 36.5 77 16 129/60 (83) 100 Room Air 12/12/17 13:36 36.8 72 20 96 4.0 12/12/17 12:02 36.8 72 20 117/78 (91) 96 Nasal Cannula 4.0 12/12/17 12:00 Nasal Cannula 2.0 12/12/17 08:15 36.4 76 20 118/77 (91) 99 Nasal Cannula 4.0 12/12/17 08:00 Nasal Cannula 2.0 12/12/17 04:25 36.8 76 17 109/91 (97) 95 BiPAP 35 12/12/17 04:00 Nasal Cannula 2.0 12/12/17 00:00 Nasal Cannula 2.0 12/11/17 23:53 36.4 71 21 132/75 (94) 98 BiPAP 35 12/11/17 22:07 78 95 35 12/11/17 20:00 Nasal Cannula 2.0 12/11/17 19:20 36.5 74 18 107/69 (82) 96 BiPAP 12/11/17 16:22 36.9 76 16 117/63 (81) 92 BiPAP Physical Exam General Appearance: WD/WN, no apparent distress, + obese Eyes: normal inspection, PERRL, EOMI, sclerae normal ENT: normal ENT inspection, hearing grossly normal, pharynx normal Neck: supple, no adenopathy, thyroid normal, no JVD, no carotid bruits, trachea midline Respiratory/Chest: chest non-tender, normal breath sounds, no respiratory distress, no accessory muscle use, + decreased breath sounds Cardiovascular: regular rate, rhythm, no gallop, no JVD, no murmur Abdomen: normal bowel sounds, non tender, soft, no organomegaly, no pulsatile mass Extremities: normal range of motion, non-tender, normal inspection, no pedal edema, no calf tenderness, normal capillary refill, pelvis stable, + swelling ( Trace edema) 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 PMH: Schizoaffective disorder, severe KORI, biventricular congestive heart failure, diabetes, HONK, hyponatremia, metabolic encephalopathy, acute renal failure, lithium toxicity, anemia., Multiple frequent admission hospital acute on chronic systolic and diastoic heart failure with recent LVEF 45%, BiPAP machine at home is broken history of noncompliance with BiPAP use leading to prior respiratory failure from CO2 retention and encephalopathy The new Lasix watch renal function, Elevated ammonia Continue lactulose, keep needs to to time bowel movement Supraventricular tachycardia: resolved after adenosine. Hypoglycemia, history of DM: Admit glucose of 48. Was given dextrose in ED. did have poor nutrition at home due to illness continue with lantus and Sliding scale Loose stools: No known fevers. Likely from using on lactulose Anemia: Schizoaffective disorder: Obstructive sleep apnea Suspect seizure disorder: HTN The above condition stable Code status: DNR. DVT prophy: Lovenox. Continue current care, PT OT, casey saw operator to call to patient's BiPAP company to have the broken BiPAP replaced, Continued [facility] stay due to: multiple IV medications needed Discharge planning: home
[2017-12-12] MEDS: HALOPERIDOL 0.5 MG TAB PO SCH (20:19)
[2017-12-12] MEDS: FUROSEMIDE INJ 40 MG in SYRINGE 0 ML IV SCH (21:46)
[2017-12-13] VITALS (7 sets, daily range): BP systolic 108–142; BP diastolic 69–84; PULSE 72–80; TEMP 36.5–36.7; O2SAT 91–98; BMI 45.0
[2017-12-13] MEDS: BENZONATATE 100MG CAP PO SCH ×3 (05:48→21:52)
[2017-12-13] MEDS: ACETAMINOPHEN 325 MG TAB PO PRN ×3 (06:15→19:21)
[2017-12-13] MEDS: INSULIN ASPART 100 UNITS/ML 3 ML PEN SC SCH ×4 (06:30→21:53)
[2017-12-13 07:55] LABS: BASO % 0.2 %; BASO ABS # 0.01 K/uL (0-0.2); EOS % 0.8 %; EOS ABS # 0.04 K/uL (0-0.5); HEMOGLOBIN 11.1 g/dL (12.0-16.0); IG# 0.01 K/uL (0.00-0.02); LYMPH % 15.9 %; MEAN CELL VOLUME 97.3 fL (80-100); MEAN CORPUSCULAR HEMOGLOBIN 27.7 pg (25-34); MEAN CORPUSCULAR HGB CONC 28.5 g/dl (32-36); MEAN PLATELET VOLUME 10.3 fL (7.4-10.4); MONO % 18.7 %; MONO ABS # 0.94 K/uL (0.11-0.59); NEUT % 64.2 %; NEUT ABS # 3.23 K/uL (1.4-6.5); NUCLEATED RED BLOOD CELL ABS 0.09 K/uL (0-0); PLATELET COUNT 230 K/uL (130-400); RED CELL DISTRIBUTION WIDTH CV 19.8 % (11.5-14.5); RED CELL DISTRIBUTION WIDTH SD 70.5 fL (36.4-46.3); WHITE BLOOD COUNT 5.03 K/uL (4.8-10.8)
[2017-12-13 08:04] LABS: CALCIUM 9.2 mg/dl (8.5-10.1); CREATININE 0.88 mg/dl (0.60-1.20); PHOSPHORUS 3.5 mg/dl (2.5-4.9); POTASSIUM 5.3 mmol/L (3.5-5.1)
[2017-12-13] MEDS: LACTULOSE SYRUP 30 GM/45 ML UDP PO SCH ×3 (09:00→21:50)
[2017-12-13] MEDS: LISINOPRIL 5 MG TAB PO SCH (09:18)
[2017-12-13] MEDS: LEVETIRACETAM 250 MG TAB PO SCH ×2 (09:18→22:20)
[2017-12-13] MEDS: METOPROLOL SUCC 50MG EXT REL TAB PO SCH (09:18)
[2017-12-13] MEDS: MAGNESIUM OXIDE 400 MG TAB PO SCH ×2 (09:18→22:20)
[2017-12-13] MEDS: IPRATROPIUM BROMIDE/ALBUTEROL respimat INH INH SCH ×4 (09:19→21:50)
[2017-12-13] MEDS: NYSTATIN POWDER 15GM BTL EXT SCH ×2 (09:19→20:00)
[2017-12-13] MEDS: ENOXAPARIN 40 MG/0.4 ML SYR SC SCH (09:19)
[2017-12-13] MEDS: FUROSEMIDE INJ 80 MG in SYRINGE 0 ML IV SCH (09:22)
--- NOTE | 2017-12-13 16:49 | Progress Note ---
Subjective Date of Service: Dec 13, 2017. Subjective Pt evaluation today including: conversation w/ patient, conversation w/ family , physical exam, chart review, lab review, review of studies, conversation w/ tax credit leasing consultant, review of inpatient medication list Was having hypoglycemic episodes blood glucose at 41, Lantus was stopped, has been sitting up to the chair, eating and conversational, has insert a Iniguez catheter has good urine output, mentally function good conversation Problem List Medical Problems: (1) Acute CHF Status: Acute (2) Acute renal failure (ARF) Status: Acute (3) Change in mental status Status: Acute (4) CHF (congestive heart failure) Status: Acute (5) CHF (congestive heart failure) Status: Acute (6) CHF exacerbation Status: Acute (7) CO2 retention Status: Acute (8) Congestive heart failure (CHF) Status: Chronic (9) Dehydration Status: Acute (10) DKA (diabetic ketoacidoses) Status: Acute (11) Elevated lithium level Status: Acute (12) Elevated troponin Status: Acute (13) Extrapyramidal and movement disorder Status: Acute (14) Fall Status: Acute (15) Hyperammonemia Status: Acute (16) Hyperammonemia Status: Acute (17) Hyperammonemia Permanent Comment: Non cirrhotic hyperammonemia Status: Acute (18) Hyperammonemia Status: Acute (19) Hypercalcemia Status: Acute (20) Hypercarbia Status: Acute (21) Hypercarbia Status: Acute (22) Hypercarbia Status: Acute (23) Hyperglycemia Status: Acute (24) Hyperglycemia Status: Acute (25) Hyperglycemia without ketosis Status: Acute (26) Hyperkalemia Status: Acute (27) Hyperosmolality Status: Acute (28) Hypoglycemia Status: Acute (29) Hypokalemia Status: Acute (30) Hypokalemia Status: Acute (31) Hyponatremia Status: Acute (32) Hyponatremia Status: Acute (33) Hyponatremia Status: Acute (34) Hypoxia Status: Acute (35) Hypoxia Status: Acute (36) Left arm swelling Status: Acute (37) Lower extremity weakness Status: Acute (38) Renal insufficiency Status: Acute (39) Respiratory failure with hypoxia Status: Acute (40) Seizure Status: Acute (41) SOB (shortness of breath) Status: Acute (42) SVT (supraventricular tachycardia) Status: Acute (43) Systolic CHF, acute on chronic Status: Acute (44) Weakness Status: Acute Review of Systems Constitutional: + weakness, + fatigue, No fever, No chills, No sweats, No weight loss, No problem reported Eyes: No worsening of vision, No eye pain, No redness, No discharge, No diplopia ENT: No hearing loss, No unusual epistaxis, No nasal symptoms, No sore throat, No tinnitus, No dental problems, No trouble swallowing Respiratory: + cough (Some moist cough), No sputum, No wheezing, No shortness of breath, No dyspnea on exertion, No dyspnea at rest, No hemoptysis Cardiac: No chest pain, No orthopnea, No PND, No edema, No claudication, No palpitations Abdomen: No pain, No nausea, No vomiting, No diarrhea, No constipation Musculoskeletal: No joint pain, No muscle pain, No swelling, No calf pain Female : No dysuria, No urinary frequency, No hematuria, No incontinence, No abnormal vaginal bleeding, No vaginal discharge Neurologic: No memory loss, No paralysis, No weakness, No numbness/tingling, No vertigo, No balance problems Psychiatric: No depression symptoms, No anhedonism, No anxiety, No insomnia, No substance abuse Heme: No abnormal bleeding/bruising, No clotting problems, No swollen lymph nodes, No night sweats Endo: No fatigue, No excessive thirst, No excessive urination Skin: No rash, No itch, No new/changing skin lesions, No color change, No bleeding Objective Vital Signs Date Time Temp Pulse Resp B/P (MAP) Pulse Ox O2 Delivery O2 Flow Rate FiO2 12/13/17 16:40 36.7 75 18 117/69 (85) 98 Nasal Cannula 2.0 12/13/17 16:00 Nasal Cannula 2.0 12/13/17 14:32 36.7 73 20 133/84 (100) 93 Nasal Cannula 2.0 73 12/13/17 09:16 76 123/80 (94) 12/13/17 08:00 Nasal Cannula 2.0 12/13/17 07:35 36.5 73 20 108/71 (83) 91 Nasal Cannula 2.0 12/13/17 06:06 72 95 Nasal Cannula 2.0 12/13/17 00:00 Nasal Cannula 2.0 12/12/17 23:27 36.5 89 20 126/70 (88) 100 Room Air 12/12/17 20:46 Nasal Cannula 2.0 12/12/17 19:47 100 Room Air 2.0 Physical Exam General Appearance: WD/WN, no apparent distress Eyes: normal inspection, PERRL, EOMI, sclerae normal ENT: normal ENT inspection, hearing grossly normal, pharynx normal Neck: supple, no adenopathy, thyroid normal, no JVD, no carotid bruits, trachea midline Respiratory/Chest: chest non-tender, normal breath sounds, no respiratory distress, no accessory muscle use, + decreased breath sounds Cardiovascular: regular rate, rhythm, no gallop, no JVD, no murmur, + pertinent finding (1+ edema) Abdomen: normal bowel sounds, non tender, soft, no organomegaly, no pulsatile mass Extremities: normal range of motion, non-tender, normal inspection, no pedal edema, no calf tenderness, normal capillary refill, pelvis stable 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, no motor/sensory deficits, alert, normal mood/affect, oriented x 3 Skin: normal color, warm/dry, no rash Lymphatic: no adenopathy Laboratory Results Last 24 Hours Test 12/12/17 19:55 12/13/17 07:20 12/13/17 07:38 12/13/17 07:43 Bedside Glucose 201 mg/dl 41 mg/dl 50 mg/dl White Blood Count 5.03 K/uL Red Blood Count 4.01 M/uL Hemoglobin 11.1 g/dL Hematocrit 39.0 % Mean Corpuscular Volume 97.3 fL Mean Corpuscular Hemoglobin 27.7 pg Mean Corpuscular Hemoglobin Concent 28.5 g/dl Platelet Count 230 K/uL Mean Platelet Volume 10.3 fL Neutrophils (%) (Auto) 64.2 % Lymphocytes (%) (Auto) 15.9 % Monocytes (%) (Auto) 18.7 % Eosinophils (%) (Auto) 0.8 % Basophils (%) (Auto) 0.2 % Neutrophils # (Auto) 3.23 K/uL Lymphocytes # (Auto) 0.80 K/uL Monocytes # (Auto) 0.94 K/uL Eosinophils # (Auto) 0.04 K/uL Basophils # (Auto) 0.01 K/uL RDW Standard Deviation 70.5 fL RDW Coefficient of Variation 19.8 % Immature Granulocyte % (Auto) 0.2 % Immature Granulocyte # (Auto) 0.01 K/uL Nucleated RBC Absolute Count (auto) 0.09 K/uL Nucleated Red Blood Cells % 1.8 % Sodium Level 134 mmol/L Potassium Level 5.3 mmol/L Chloride Level 94 mmol/L Carbon Dioxide Level 39 mmol/L Anion Gap 1.0 mmol/L Blood Urea Nitrogen 22 mg/dl Creatinine 0.88 mg/dl Est Creatinine Clear Calc Drug Dose 81.1 ml/min Estimated GFR () 81.6 Estimated GFR (Non- 70.4 BUN/Creatinine Ratio 25.1 Random Glucose 57 mg/dl Calcium Level 9.2 mg/dl Phosphorus Level 3.5 mg/dl Magnesium Level 2.4 mg/dl Test 12/13/17 08:09 12/13/17 08:11 12/13/17 08:40 12/13/17 09:36 Bedside Glucose 43 mg/dl 44 mg/dl 83 mg/dl 113 mg/dl Test 12/13/17 11:36 12/13/17 16:42 Bedside Glucose 156 mg/dl Assessment and Plan 62-year-old female admitted on 10 December 2017 for acute on chronic diastolic and systolic CHF exacerbation with shortness of breath and found to be in SVT. PMH: Schizoaffective disorder, severe KORI, biventricular congestive heart failure, diabetes, HONK, hyponatremia, metabolic encephalopathy, acute renal failure, lithium toxicity, anemia., Multiple frequent admission hospital acute on chronic systolic and diastoic heart failure with recent LVEF 45%, BiPAP machine at home is broken, has past message to rehabilitation caseworker to work on this, need to call to patient's BiPAP company to replace it Possible history of noncompliance with BiPAP use leading to prior respiratory failure from CO2 retention and encephalopathy Free water restriction to 1.5 L daily, continue Lasix watch renal function, Elevated ammonia has several bowel movement yesterday, has 2 bowel movement today, she was refusing lactulose, Encourage her to continue lactulose, keep every day at least 2 time bowel movement Supraventricular tachycardia: resolved after adenosine. Hypoglycemia, history of DM: Admit glucose of 48. Was given dextrose in ED. did have poor nutrition at home due to illness continue Sliding scale Discontinue Lantus Loose stools: No known fevers. Likely from using on lactulose Anemia: Schizoaffective disorder: Obstructive sleep apnea Suspect seizure disorder: HTN The above condition stable Code status: DNR. DVT prophy: Lovenox. Continue current care, PT OT, rehabilitation caseworker to call to patient's BiPAP company to have the broken BiPAP replaced Planning to discharge home tomorrow Continued [facility] stay due to: multiple IV medications needed Discharge planning: home
[2017-12-13 17:08] LABS: CALCIUM 8.6 mg/dl (8.5-10.1); CREATININE 0.88 mg/dl (0.60-1.20); POTASSIUM 5.2 mmol/L (3.5-5.1)
[2017-12-13] MEDS: HALOPERIDOL 0.5 MG TAB PO SCH (21:51)
[2017-12-13] MEDS: FUROSEMIDE INJ 40 MG in SYRINGE 0 ML IV SCH (21:51)
[2017-12-13] MEDS: POTASSIUM CHLORIDE 20 MEQ TABCR PO SCH (21:51)
[2017-12-14] VITALS (8 sets, daily range): BP systolic 109–129; BP diastolic 66–76; PULSE 79–97; TEMP 36.3–37.1; O2SAT 84–95
[2017-12-14] MEDS: ONDANSETRON INJ 2 MG/ML 2 ML VIAL IV PRN (03:30)
[2017-12-14] MEDS: ACETAMINOPHEN 325 MG TAB PO PRN ×2 (03:53→13:18)
[2017-12-14 06:42] LABS: CALCIUM 8.4 mg/dl (8.5-10.1); CREATININE 0.93 mg/dl (0.60-1.20); POTASSIUM 5.6 mmol/L (3.5-5.1)
[2017-12-14] MEDS: LACTULOSE SYRUP 30 GM/45 ML UDP PO SCH ×3 (07:49→21:03)
[2017-12-14] MEDS: IPRATROPIUM BROMIDE/ALBUTEROL respimat INH INH SCH ×4 (07:49→21:03)
[2017-12-14] MEDS: NYSTATIN POWDER 15GM BTL EXT SCH ×2 (07:50→21:03)
[2017-12-14] MEDS: LEVETIRACETAM 250 MG TAB PO SCH ×2 (07:51→21:05)
[2017-12-14] MEDS: MAGNESIUM OXIDE 400 MG TAB PO SCH ×2 (07:52→21:06)
[2017-12-14] MEDS ORDERED: SODIUM POLYST. SULF SUSP 15G/60ML PO STA (08:22)
[2017-12-14] MEDS: LISINOPRIL 5 MG TAB PO SCH (09:14)
[2017-12-14] MEDS ORDERED: NURSING VERBAL MED ORDER ONE (09:15)
[2017-12-14] MEDS: FUROSEMIDE INJ 80 MG in SYRINGE 0 ML IV SCH (09:15)
[2017-12-14] MEDS: METOPROLOL SUCC 50MG EXT REL TAB PO SCH (09:15)
[2017-12-14] MEDS: ENOXAPARIN 40 MG/0.4 ML SYR SC SCH (09:17)
[2017-12-14] MEDS: INSULIN ASPART 100 UNITS/ML 3 ML PEN SC SCH ×4 (09:39→21:08)
[2017-12-14] MEDS: BENZONATATE 100MG CAP PO SCH ×2 (13:19→21:04)
--- NOTE | 2017-12-14 14:17 | Progress Note ---
Subjective Date of Service: Dec 14, 2017. Subjective Pt evaluation today including: conversation w/ patient, conversation w/ family , physical exam, chart review, lab review, review of studies, conversation w/ development consultant, review of inpatient medication list Voiding: rao catheter in place Sitting on chair, good urine output, eating drinking good, no complaint, Problem List Medical Problems: (1) Acute CHF Status: Acute (2) Acute renal failure (ARF) Status: Acute (3) Change in mental status Status: Acute (4) CHF (congestive heart failure) Status: Acute (5) CHF (congestive heart failure) Status: Acute (6) CHF exacerbation Status: Acute (7) CO2 retention Status: Acute (8) Congestive heart failure (CHF) Status: Chronic (9) Dehydration Status: Acute (10) DKA (diabetic ketoacidoses) Status: Acute (11) Elevated lithium level Status: Acute (12) Elevated troponin Status: Acute (13) Extrapyramidal and movement disorder Status: Acute (14) Fall Status: Acute (15) Hyperammonemia Status: Acute (16) Hyperammonemia Status: Acute (17) Hyperammonemia Permanent Comment: Non cirrhotic hyperammonemia Status: Acute (18) Hyperammonemia Status: Acute (19) Hypercalcemia Status: Acute (20) Hypercarbia Status: Acute (21) Hypercarbia Status: Acute (22) Hypercarbia Status: Acute (23) Hyperglycemia Status: Acute (24) Hyperglycemia Status: Acute (25) Hyperglycemia without ketosis Status: Acute (26) Hyperkalemia Status: Acute (27) Hyperosmolality Status: Acute (28) Hypoglycemia Status: Acute (29) Hypokalemia Status: Acute (30) Hypokalemia Status: Acute (31) Hyponatremia Status: Acute (32) Hyponatremia Status: Acute (33) Hyponatremia Status: Acute (34) Hypoxia Status: Acute (35) Hypoxia Status: Acute (36) Left arm swelling Status: Acute (37) Lower extremity weakness Status: Acute (38) Renal insufficiency Status: Acute (39) Respiratory failure with hypoxia Status: Acute (40) Seizure Status: Acute (41) SOB (shortness of breath) Status: Acute (42) SVT (supraventricular tachycardia) Status: Acute (43) Systolic CHF, acute on chronic Status: Acute (44) Weakness Status: Acute Review of Systems Constitutional: + weakness, + fatigue, No fever, No chills, No sweats, No weight loss, No problem reported Eyes: No worsening of vision, No eye pain, No redness, No discharge, No diplopia ENT: No hearing loss, No unusual epistaxis, No nasal symptoms, No sore throat, No tinnitus, No dental problems, No trouble swallowing Respiratory: No cough, No sputum, No wheezing, No shortness of breath, No dyspnea on exertion, No dyspnea at rest, No hemoptysis Cardiac: + edema (1+ bilateral lower extremity), No chest pain, No orthopnea, No PND, No claudication, No palpitations Abdomen: No pain, No nausea, No vomiting, No diarrhea, No constipation Musculoskeletal: + swelling, No joint pain, No muscle pain, No calf pain Female : + hematuria, No dysuria, No urinary frequency, No incontinence, No abnormal vaginal bleeding, No vaginal discharge Neurologic: No memory loss, No paralysis, No weakness, No numbness/tingling, No vertigo, No balance problems Psychiatric: No depression symptoms, No anhedonism, No anxiety, No insomnia, No substance abuse Heme: No abnormal bleeding/bruising, No clotting problems, No swollen lymph nodes, No night sweats Endo: No fatigue, No excessive thirst, No excessive urination Skin: No rash, No itch, No new/changing skin lesions, No color change, No bleeding Objective Vital Signs Date Time Temp Pulse Resp B/P (MAP) Pulse Ox O2 Delivery O2 Flow Rate FiO2 12/14/17 13:44 97 84 35 12/14/17 08:00 91 Nasal Cannula 2.0 35 BiPAP 12/14/17 07:44 36.5 82 20 120/75 (90) 91 Nasal Cannula 2.0 12/14/17 07:35 36.3 80 20 109/66 (80) 95 12/14/17 00:00 Nasal Cannula 2.0 12/13/17 23:27 36.6 75 20 142/77 (98) 98 BiPAP 12/13/17 22:25 76 96 35 12/13/17 16:40 36.7 75 18 117/69 (85) 98 Nasal Cannula 2.0 12/13/17 16:00 Nasal Cannula 2.0 12/13/17 14:32 36.7 73 20 133/84 (100) 93 Nasal Cannula 2.0 73 Physical Exam General Appearance: + obese Eyes: normal inspection, PERRL, EOMI, sclerae normal ENT: normal ENT inspection, hearing grossly normal, pharynx normal Neck: supple, no adenopathy, thyroid normal, no JVD, no carotid bruits, trachea midline Respiratory/Chest: chest non-tender, normal breath sounds, no respiratory distress, no accessory muscle use, + decreased breath sounds Cardiovascular: regular rate, rhythm, no gallop, no JVD, no murmur Abdomen: normal bowel sounds, non tender, soft, no organomegaly, no pulsatile mass, + pertinent finding (Rao catheter in place with pink urine) Extremities: normal range of motion, non-tender, normal inspection, no pedal edema, no calf tenderness, normal capillary refill, pelvis stable, + swelling (1 + bilateral lower extremity) 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, no motor/sensory deficits, alert, normal mood/affect, oriented x 3 Skin: normal color, warm/dry, no rash Lymphatic: no adenopathy Laboratory Results Last 24 Hours Test 12/13/17 16:42 12/13/17 16:44 12/13/17 20:17 12/14/17 05:24 Sodium Level 134 mmol/L 135 mmol/L Potassium Level 5.2 mmol/L 5.6 mmol/L Chloride Level 93 mmol/L 94 mmol/L Carbon Dioxide Level 38 mmol/L 41 mmol/L Anion Gap 4.0 mmol/L 0.0 mmol/L Blood Urea Nitrogen 21 mg/dl 20 mg/dl Creatinine 0.88 mg/dl 0.93 mg/dl Est Creatinine Clear Calc Drug Dose 81.1 ml/min 76.7 ml/min Estimated GFR () 81.6 76.3 Estimated GFR (Non- 70.4 65.9 BUN/Creatinine Ratio 24.1 21.4 Random Glucose 269 mg/dl 150 mg/dl Calcium Level 8.6 mg/dl 8.4 mg/dl Bedside Glucose 234 mg/dl 245 mg/dl Phosphorus Level 3.0 mg/dl Magnesium Level 2.2 mg/dl Test 12/14/17 07:48 12/14/17 11:55 Bedside Glucose 146 mg/dl 244 mg/dl Assessment and Plan 62-year-old female admitted on 10 December 2017 for acute on chronic diastolic and systolic CHF exacerbation with shortness of breath and found to be in SVT. PMH: Schizoaffective disorder, severe KORI, biventricular congestive heart failure, diabetes, HONK, hyponatremia, metabolic encephalopathy, acute renal failure, lithium toxicity, anemia., Multiple frequent admission hospital acute on chronic systolic and diastoic heart failure with recent LVEF 45%, stable improving, has good negative urine output around 5 L BiPAP machine at home is broken, has past message to disease case manager rn to work on this, need to call to patient's BiPAP company to replace it Possible history of noncompliance with BiPAP use leading to prior respiratory failure from CO2 retention and encephalopathy Free water restriction to 1.5 L daily, continue Lasix watch renal function, Mild elevated bicarb today which likely metabolic alkalosis, will continue to watch Elevated ammonia was in normal mental status, Encourage free water retention, and continue diuretic Encourage her to continue lactulose, keep every day at least 2 time bowel movement Supraventricular tachycardia: resolved after adenosine. Hypoglycemia, history of DM, glucose of 48. , Lantus was on hold stable, improved did have poor nutrition at home due to illness Loose stools: No known fevers. Likely from using on lactulose Hypokalemia, follow-up labs Anemia: Schizoaffective disorder: Obstructive sleep apnea Suspect seizure disorder: HTN The above condition stable Code status: DNR. DVT prophy: Lovenox. Continue current care, possible discharge patient home tomorrow Continued [facility] stay due to: multiple IV medications needed Discharge planning: home
[2017-12-14 16:33] LABS: BLOOD UREA NITROGEN 18 mg/dl (7-18); CALCIUM 8.6 mg/dl (8.5-10.1); CREATININE 1.03 mg/dl (0.60-1.20); GLUCOSE 169 mg/dl (70-99); SODIUM 138 mmol/L (136-145)
[2017-12-14 16:43] LABS: CARBON DIOXIDE 48 mmol/L (21-32); POTASSIUM 4.5 mmol/L (3.5-5.1)
[2017-12-14] MEDS: AcetaZOLAMIDE 250 MG TAB PO SCH (18:55)
[2017-12-14] MEDS: HALOPERIDOL 0.5 MG TAB PO SCH (21:05)
[2017-12-15] VITALS (8 sets, daily range): BP systolic 102–122; BP diastolic 42–77; PULSE 73–97; TEMP 35.2–37; O2SAT 92–100
[2017-12-15 06:13] LABS: INR 1.2 (0.9-1.1)
[2017-12-15 06:16] LABS: BASO % 0.2 %; BASO ABS # 0.01 K/uL (0-0.2); EOS % 0.2 %; EOS ABS # 0.01 K/uL (0-0.5); HEMATOCRIT 37.6 % (37-47); HEMOGLOBIN 9.9 g/dL (12.0-16.0); IG# 0.01 K/uL (0.00-0.02); LYMPH % 20.3 %; LYMPH ABS # 0.93 K/uL (1.2-3.4); MEAN CELL VOLUME 99.7 fL (80-100); MEAN CORPUSCULAR HEMOGLOBIN 26.3 pg (25-34); MEAN CORPUSCULAR HGB CONC 26.3 g/dl (32-36); MEAN PLATELET VOLUME 9.7 fL (7.4-10.4); MONO % 15.9 %; MONO ABS # 0.73 K/uL (0.11-0.59); NEUT % 63.2 %; NUCLEATED RED BLOOD CELL ABS 0.05 K/uL (0-0); PLATELET COUNT 194 K/uL (130-400); RED CELL DISTRIBUTION WIDTH CV 19.9 % (11.5-14.5); RED CELL DISTRIBUTION WIDTH SD 72.5 fL (36.4-46.3); WHITE BLOOD COUNT 4.59 K/uL (4.8-10.8)
[2017-12-15] MEDS: BENZONATATE 100MG CAP PO SCH ×4 (06:36→21:03)
[2017-12-15] MEDS: NYSTATIN POWDER 15GM BTL EXT SCH ×2 (07:40→21:01)
[2017-12-15] MEDS: AcetaZOLAMIDE 250 MG TAB PO SCH (07:40)
[2017-12-15] MEDS: LACTULOSE SYRUP 30 GM/45 ML UDP PO SCH ×4 (07:40→21:01)
[2017-12-15] MEDS: LEVETIRACETAM 250 MG TAB PO SCH ×2 (07:40→21:02)
[2017-12-15] MEDS: IPRATROPIUM BROMIDE/ALBUTEROL respimat INH INH SCH ×4 (07:40→21:01)
[2017-12-15] MEDS: LISINOPRIL 5 MG TAB PO SCH (07:40)
[2017-12-15] MEDS: MAGNESIUM OXIDE 400 MG TAB PO SCH ×2 (07:41→21:02)
[2017-12-15] MEDS: METOPROLOL SUCC 50MG EXT REL TAB PO SCH (07:41)
[2017-12-15] MEDS: INSULIN ASPART 100 UNITS/ML 3 ML PEN SC SCH ×4 (08:23→21:06)
[2017-12-15 09:14] LABS: CALCIUM 8.8 mg/dl (8.5-10.1); CREATININE 0.97 mg/dl (0.60-1.20); PHOSPHORUS 3.1 mg/dl (2.5-4.9); POTASSIUM 4.2 mmol/L (3.5-5.1)
[2017-12-15] MEDS ORDERED: NURSING VERBAL MED ORDER ONE ×2 (09:30→09:45)
[2017-12-15] MEDS: FUROSEMIDE INJ 40 MG in SYRINGE 0 ML IV SCH ×2 (10:17→16:38)
--- NOTE | 2017-12-15 11:37 | DIAGNOSTIC IMAGING REPORT ---
CHEST 2 VIEWS ROUTINE CLINICAL HISTORY: chf exac dyspnea COMPARISON STUDY: 12/10/2017 FINDINGS: Persistent cardiomegaly. Prominent pulmonary vasculature despite respiratory motion artifact. Diaphragms are smooth. IMPRESSION: Moderate cardiac enlargement. Mild congestive heart failure. The above report was generated using voice recognition software. It may contain grammatical, syntax or spelling errors. Electronically signed by: Jeff Hahn M.D. 12/15/2017 11:36 AM Dictated Date/Time: 12/15/2017 11:35 AM
--- NOTE | 2017-12-15 15:51 | Progress Note ---
Subjective Date of Service: Dec 15, 2017. Subjective Pt evaluation today including: conversation w/ patient, conversation w/ family , physical exam, chart review, lab review, review of studies, conversation w/ data security consultant, review of inpatient medication list Voiding: rao catheter in place Yesterday Lasix was hold because of CO2 in bmp was significant elevated This morning she was some mild lethargic, however conversational answering questions out of bed to the chair, no complaint Problem List Medical Problems: (1) Acute CHF Status: Acute (2) Acute renal failure (ARF) Status: Acute (3) Change in mental status Status: Acute (4) CHF (congestive heart failure) Status: Acute (5) CHF (congestive heart failure) Status: Acute (6) CHF exacerbation Status: Acute (7) CO2 retention Status: Acute (8) Congestive heart failure (CHF) Status: Chronic (9) Dehydration Status: Acute (10) DKA (diabetic ketoacidoses) Status: Acute (11) Elevated lithium level Status: Acute (12) Elevated troponin Status: Acute (13) Extrapyramidal and movement disorder Status: Acute (14) Fall Status: Acute (15) Hyperammonemia Status: Acute (16) Hyperammonemia Status: Acute (17) Hyperammonemia Permanent Comment: Non cirrhotic hyperammonemia Status: Acute (18) Hyperammonemia Status: Acute (19) Hypercalcemia Status: Acute (20) Hypercarbia Status: Acute (21) Hypercarbia Status: Acute (22) Hypercarbia Status: Acute (23) Hyperglycemia Status: Acute (24) Hyperglycemia Status: Acute (25) Hyperglycemia without ketosis Status: Acute (26) Hyperkalemia Status: Acute (27) Hyperosmolality Status: Acute (28) Hypoglycemia Status: Acute (29) Hypokalemia Status: Acute (30) Hypokalemia Status: Acute (31) Hyponatremia Status: Acute (32) Hyponatremia Status: Acute (33) Hyponatremia Status: Acute (34) Hypoxia Status: Acute (35) Hypoxia Status: Acute (36) Left arm swelling Status: Acute (37) Lower extremity weakness Status: Acute (38) Renal insufficiency Status: Acute (39) Respiratory failure with hypoxia Status: Acute (40) Seizure Status: Acute (41) SOB (shortness of breath) Status: Acute (42) SVT (supraventricular tachycardia) Status: Acute (43) Systolic CHF, acute on chronic Status: Acute (44) Weakness Status: Acute Review of Systems Constitutional: + weakness, + fatigue, No fever, No chills, No sweats, No weight loss, No problem reported Eyes: No worsening of vision, No eye pain, No redness, No discharge, No diplopia ENT: No hearing loss, No unusual epistaxis, No nasal symptoms, No sore throat, No tinnitus, No dental problems, No trouble swallowing Respiratory: + shortness of breath (Which is chronic), No cough, No sputum, No wheezing, No dyspnea on exertion, No dyspnea at rest, No hemoptysis Cardiac: No chest pain, No orthopnea, No PND, No edema, No claudication, No palpitations Abdomen: No pain, No nausea, No vomiting, No diarrhea, No constipation Musculoskeletal: No joint pain, No muscle pain, No swelling, No calf pain Female : No dysuria, No urinary frequency, No hematuria, No incontinence, No abnormal vaginal bleeding, No vaginal discharge Neurologic: + problem reported (Lethargic), No memory loss, No paralysis, No weakness, No numbness/tingling, No vertigo, No balance problems Psychiatric: No depression symptoms, No anhedonism, No anxiety, No insomnia, No substance abuse Heme: No abnormal bleeding/bruising, No clotting problems, No swollen lymph nodes, No night sweats Endo: No fatigue, No excessive thirst, No excessive urination Skin: No rash, No itch, No new/changing skin lesions, No color change, No bleeding Objective Vital Signs Date Time Temp Pulse Resp B/P (MAP) Pulse Ox O2 Delivery O2 Flow Rate FiO2 12/15/17 15:33 36.8 12/15/17 15:16 35.2 75 16 109/70 (83) 100 BiPAP 12/15/17 13:37 73 18 115/73 (87) 96 BiPAP 12/15/17 08:00 Nasal Cannula 3.0 BiPAP 12/15/17 07:30 37.0 97 20 102/65 (77) 100 12/15/17 00:05 BiPAP 3.0 35 12/14/17 23:34 37.0 79 20 129/75 (93) 95 BiPAP 3.0 12/14/17 19:08 81 95 40 12/14/17 16:00 94 BiPAP 2.0 35 12/14/17 15:56 37.1 85 18 125/76 (92) 94 BiPAP Physical Exam General Appearance: WD/WN, no apparent distress, + obese Eyes: normal inspection, PERRL, EOMI, sclerae normal ENT: normal ENT inspection, hearing grossly normal, pharynx normal Neck: supple, no adenopathy, thyroid normal, no JVD, no carotid bruits, trachea midline Respiratory/Chest: chest non-tender, normal breath sounds, no respiratory distress, no accessory muscle use, + decreased breath sounds Cardiovascular: regular rate, rhythm, no gallop, no JVD, no murmur, + pertinent finding (1+ edema in the lower extremities) Abdomen: normal bowel sounds, non tender, soft, no organomegaly, no pulsatile mass Extremities: normal range of motion, non-tender, normal inspection, no pedal edema, no calf tenderness, normal capillary refill, pelvis stable, + swelling (1 + edema bilateral lower extremity) 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, no motor/sensory deficits, alert, normal mood/affect, oriented x 3 Skin: normal color, warm/dry, no rash Lymphatic: no adenopathy Laboratory Results Last 24 Hours Test 12/14/17 16:40 12/14/17 20:32 12/15/17 02:39 12/15/17 05:50 Bedside Glucose 158 mg/dl 177 mg/dl 151 mg/dl White Blood Count 4.59 K/uL Red Blood Count 3.77 M/uL Hemoglobin 9.9 g/dL Hematocrit 37.6 % Mean Corpuscular Volume 99.7 fL Mean Corpuscular Hemoglobin 26.3 pg Mean Corpuscular Hemoglobin Concent 26.3 g/dl Platelet Count 194 K/uL Mean Platelet Volume 9.7 fL Neutrophils (%) (Auto) 63.2 % Lymphocytes (%) (Auto) 20.3 % Monocytes (%) (Auto) 15.9 % Eosinophils (%) (Auto) 0.2 % Basophils (%) (Auto) 0.2 % Neutrophils # (Auto) 2.90 K/uL Lymphocytes # (Auto) 0.93 K/uL Monocytes # (Auto) 0.73 K/uL Eosinophils # (Auto) 0.01 K/uL Basophils # (Auto) 0.01 K/uL RDW Standard Deviation 72.5 fL RDW Coefficient of Variation 19.9 % Immature Granulocyte % (Auto) 0.2 % Immature Granulocyte # (Auto) 0.01 K/uL Nucleated RBC Absolute Count (auto) 0.05 K/uL Nucleated Red Blood Cells % 1.2 % Prothrombin Time 12.8 SECONDS Prothromb Time International Ratio 1.2 Magnesium Level 2.3 mg/dl Test 12/15/17 07:41 12/15/17 08:38 12/15/17 11:47 12/15/17 12:02 Bedside Glucose 176 mg/dl 268 mg/dl Sodium Level 137 mmol/L Potassium Level 4.2 mmol/L Chloride Level 92 mmol/L Carbon Dioxide Level 41 mmol/L Anion Gap 3.0 mmol/L Blood Urea Nitrogen 17 mg/dl Creatinine 0.97 mg/dl Est Creatinine Clear Calc Drug Dose 73.6 ml/min Estimated GFR () 72.5 Estimated GFR (Non- 62.6 BUN/Creatinine Ratio 17.8 Random Glucose 189 mg/dl Calcium Level 8.8 mg/dl Phosphorus Level 3.1 mg/dl Arterial Blood pH 7.24 Arterial Blood Partial Pressure CO2 105 mmHg Arterial Blood Partial Pressure O2 95 mm/Hg Arterial Blood HCO3 44 mmol/L Arterial Blood Oxygen Saturation 94.4 % Arterial Blood Base Excess 12.9 mEq/L Arterial Blood Gas Delivery 3L Christiano Test POS Assessment and Plan 62-year-old female admitted on 10 December 2017 for acute on chronic diastolic and systolic CHF exacerbation with shortness of breath and found to be in SVT. PMH: Schizoaffective disorder, severe KORI, biventricular congestive heart failure, diabetes, HONK, hyponatremia, metabolic encephalopathy, acute renal failure, lithium toxicity, anemia., Multiple frequent admission hospital Acute on chronic respiratory failure with CO2 retention and combined metabolic and respiratory acidosis History of COPD CO 2 retention chronic respiratory failure Start of BiPAP per RT setting, continually, check ABG tonight and tomorrow morning, acute on chronic systolic and diastoic heart failure with recent LVEF 45%, stable improving, has good negative urine output around 5 L BiPAP machine at home is broken, history of noncompliance with BiPAP use leading to prior respiratory failure from CO2 retention and encephalopathy Free water restriction to 1.5 L daily, continue Lasix restarted this morning, watch renal function, Acute mental status changes, History of elevated ammonia metabolic encephalopathy We will check ammonia level to which may be elevated because he has been declining of lactulose We will follow-up results Encourage free water restriction, and continue diuretic Encourage her to continue lactulose, keep every day at least 2 time bowel movement Hypoglycemia, history of DM, glucose of 48. , Lantus was on hold stable, improved did have poor nutrition at home due to illness Anemia: Schizoaffective disorder: Suspect seizure disorder: HTN The above condition stable Code status: DNR. DVT prophy: Lovenox. I called to patient's because of patient's acute changes and possible in critical condition, update to him current care plan and possible is in critical conditions, He been understand and agree current care plan Continued [facility] stay due to: multiple IV medications needed Discharge planning: home
[2017-12-15] MEDS: HALOPERIDOL 0.5 MG TAB PO SCH (21:08)
[2017-12-15] MEDS: ACETAMINOPHEN 325 MG TAB PO PRN (22:06)
[2017-12-16] VITALS (12 sets, daily range): BP systolic 92–115; BP diastolic 58–79; PULSE 73–88; TEMP 36.7–37.1; O2SAT 92–98
[2017-12-16] MEDS: BENZONATATE 100MG CAP PO SCH ×3 (04:48→20:39)
[2017-12-16] MEDS: ACETAMINOPHEN 325 MG TAB PO PRN ×2 (04:49→18:54)
[2017-12-16 05:16] LABS: CALCIUM 8.3 mg/dl (8.5-10.1); CREATININE 1.05 mg/dl (0.60-1.20); POTASSIUM 4.2 mmol/L (3.5-5.1)
[2017-12-16] MEDS: FUROSEMIDE INJ 40 MG in SYRINGE 0 ML IV SCH ×2 (07:36→16:21)
[2017-12-16] MEDS: NYSTATIN POWDER 15GM BTL EXT SCH ×2 (07:36→20:38)
[2017-12-16] MEDS: IPRATROPIUM BROMIDE/ALBUTEROL respimat INH INH SCH ×4 (07:36→20:38)
[2017-12-16] MEDS: LISINOPRIL 5 MG TAB PO SCH (07:37)
[2017-12-16] MEDS: LACTULOSE SYRUP 30 GM/45 ML UDP PO SCH ×3 (07:37→20:38)
[2017-12-16] MEDS: METOPROLOL SUCC 50MG EXT REL TAB PO SCH (07:38)
[2017-12-16] MEDS: LEVETIRACETAM 250 MG TAB PO SCH ×2 (07:38→20:39)
[2017-12-16] MEDS: MAGNESIUM OXIDE 400 MG TAB PO SCH ×2 (07:38→20:38)
[2017-12-16] MEDS: INSULIN ASPART 100 UNITS/ML 3 ML PEN SC SCH ×4 (07:40→20:42)
--- NOTE | 2017-12-16 09:10 | ECHOCARDIOGRAM REPORT ---
*NOTICE TO RECEIVING LIBERTARIAN AGENCY This information is strictly Confidential and protected under [place] law. [place] law prohibits you from making any further disclosure of this information unless further disclosure is expressly permitted by the written consent of the person to whom it pertains or is authorized by law. A general authorization for the release of medical or other information is not sufficient for this purpose. Hospital accepts no responsibility if the information is made available to any other person, INCLUDING THE PATIENT. Interpretation Summary * Name: CHARITY BARRIOS Study Date: 12/15/2017 01:52 PM BP: 102/65 mmHg * Patient Location: .[id number]\E404\S\1 HR: 77 * : 1955 (M/d/yyyy) Gender: Female Height: 62 in * Age: 62 yrs Ethnicity: AA Weight: 253 lb * Ordering Physician: Pavan Obrien * Referring Physician: Self, Referred * Performed By: Anitha Reyes RDCS * * Reason For Study: Congestive Heart Failure * BSA: 2.1 m2 * Compared to prior study, there is no significant change. * -- Conclusions -- * The left ventricle is normal in size. * There is normal left ventricular wall thickness. * Flattened septum is consistent with RV pressure/volume overload. * No regional wall motion abnormalities noted. * Ejection Fraction = 50-55%. * The right atrium is severely dilated. * The right ventricle is severely dilated. * The right ventricular systolic function is severely reduced. * Aortic valve sclerosis mild, without significant aortic valvular stenosis. * There is mild mitral regurgitation. * There is moderate to severe tricuspid regurgitation. * Dilated inferior vena cava with reduced collapsability with sniff indicates an elevated right atrial pressure of 15 mmHg * Right ventricular systolic pressure is elevated at 40-50mmHg. Procedure Details * A complete two-dimensional transthoracic echocardiogram was performed (2D, M-mode, Doppler and color flow Doppler). Left Ventricle * The left ventricle is normal in size. * There is normal left ventricular wall thickness. * Ejection Fraction = 50-55%. * Flattened septum is consistent with RV pressure/volume overload. * No regional wall motion abnormalities noted. Right Ventricle * The right ventricle is severely dilated. * The right ventricular systolic function is severely reduced. Atria * The left atrial size is normal. * The right atrium is severely dilated. * No ASD detected; PFO is not assessed. Mitral Valve * The mitral valve anatomy is normal. * There is no mitral valve stenosis. * There is mild mitral regurgitation. Tricuspid Valve * Dilated tricuspid annulus preventing coaptation of the tricuspid valve leaflets. * There is no tricuspid stenosis. * There is moderate to severe tricuspid regurgitation. * Right ventricular systolic pressure is elevated at 40-50mmHg. Aortic Valve * The aortic valve is trileaflet. * Aortic valve sclerosis mild, without significant aortic valvular stenosis. * No aortic regurgitation is present. Pulmonic Valve * The pulmonic valve is not well visualized. Great Vessels * The aortic root is normal size. Pericardium/Pleural * There is no pericardial effusion. Great Vessels * The inferior vena cava is severely dilated. * Dilated inferior vena cava with reduced collapsability with sniff indicates an elevated right atrial pressure of 15 mmHg MMode 2D Measurements and Calculations RVDd 5.7 cm RVDs 4.8 cm IVSd 1.0 cm IVSs 1.5 cm LVIDd 5.7 cm LVIDs 3.4 cm LVPWd 0.88 cm LVPWs 1.8 cm IVS/LVPW 1.2 FS 39.4 % EDV(Teich) 157.4 ml ESV(Teich) 48.4 ml EF(Teich) 69.2 % EDV(cubed) 181.2 ml ESV(cubed) 40.3 ml EF(cubed) 77.8 % % IVS thick 50.8 % % LVPW thick 101.7 % LV mass(C)d 209.6 grams LV mass(C)dI 99.2 grams/m\S\2 LV mass(C)s 222.7 grams LV mass(C)sI 105.4 grams/m\S\2 SV(Teich) 109.0 ml SI(Teich) 51.6 ml/m\S\2 SV(cubed) 140.9 ml SI(cubed) 66.7 ml/m\S\2 Ao root diam 2.3 cm Ao root area 4.3 cm\S\2 ACS 1.4 cm LA dimension 3.3 cm LA/Ao 1.4 LVAd ap4 25.4 cm\S\2 LVLd ap4 8.3 cm EDV(MOD-sp4) 75.2 ml EDV(sp4-el) 66.1 ml LVAs ap4 15.8 cm\S\2 LVLs ap4 7.2 cm ESV(MOD-sp4) 33.1 ml ESV(sp4-el) 29.3 ml EF(MOD-sp4) 55.9 % EF(sp4-el) 55.7 % LVAd ap2 27.4 cm\S\2 LVLd ap2 8.6 cm EDV(MOD-sp2) 72.1 ml EDV(sp2-el) 74.0 ml LVAs ap2 16.8 cm\S\2 LVLs ap2 7.5 cm ESV(MOD-sp2) 31.0 ml ESV(sp2-el) 31.8 ml EF(MOD-sp2) 57.1 % EF(sp2-el) 57.1 % LVLd %diff 3.7 % EDV(MOD-bp) 73.2 ml LVLs %diff 3.9 % ESV(MOD-bp) 31.0 ml EF(MOD-bp) 57.6 % SV(MOD-sp4) 42.1 ml SI(MOD-sp4) 19.9 ml/m\S\2 SV(MOD-sp2) 41.2 ml SI(MOD-sp2) 19.5 ml/m\S\2 SV(MOD-bp) 42.2 ml SI(MOD-bp) 20.0 ml/m\S\2 SV(sp4-el) 36.8 ml SI(sp4-el) 17.4 ml/m\S\2 SV(sp2-el) 42.3 ml SI(sp2-el) 20.0 ml/m\S\2 Doppler Measurements and Calculations MV E max markus 96.0 cm/sec MV A max markus 84.7 cm/sec MV E/A 1.1 MV dec time 0.20 sec Ao V2 max 165.0 cm/sec Ao max PG 10.9 mmHg Ao max PG (full) 7.0 mmHg LV V1 max PG 3.9 mmHg LV V1 max 98.7 cm/sec MR max markus 474.1 cm/sec MR max PG 89.9 mmHg MR mean markus 348.6 cm/sec MR mean PG 54.5 mmHg MR VTI 129.1 cm PA V2 max 134.2 cm/sec PA max PG 7.2 mmHg PI max markus 283.7 cm/sec PI max PG 32.2 mmHg PI dec slope 322.7 cm/sec\S\2 PI P1/2t 257.5 msec TR max markus 293.7 cm/sec
--- NOTE | 2017-12-16 15:52 | Progress Note ---
Subjective Date of Service: Dec 16, 2017. Subjective Pt evaluation today including: conversation w/ patient, conversation w/ family , physical exam, chart review, lab review, review of studies, review of inpatient medication list Was transferred to PCU yesterday because of significant lethargic with respiratory acidosis, CO2 retention, elevated ammonia possible metabolic encephalopathy Improved today, possible return back to her baseline, however looks easy tired and some lethargic Problem List Medical Problems: (1) Acute CHF Status: Acute (2) Acute renal failure (ARF) Status: Acute (3) Change in mental status Status: Acute (4) CHF (congestive heart failure) Status: Acute (5) CHF (congestive heart failure) Status: Acute (6) CHF exacerbation Status: Acute (7) CO2 retention Status: Acute (8) Congestive heart failure (CHF) Status: Chronic (9) Dehydration Status: Acute (10) DKA (diabetic ketoacidoses) Status: Acute (11) Elevated lithium level Status: Acute (12) Elevated troponin Status: Acute (13) Extrapyramidal and movement disorder Status: Acute (14) Fall Status: Acute (15) Hyperammonemia Status: Acute (16) Hyperammonemia Status: Acute (17) Hyperammonemia Permanent Comment: Non cirrhotic hyperammonemia Status: Acute (18) Hyperammonemia Status: Acute (19) Hypercalcemia Status: Acute (20) Hypercarbia Status: Acute (21) Hypercarbia Status: Acute (22) Hypercarbia Status: Acute (23) Hyperglycemia Status: Acute (24) Hyperglycemia Status: Acute (25) Hyperglycemia without ketosis Status: Acute (26) Hyperkalemia Status: Acute (27) Hyperosmolality Status: Acute (28) Hypoglycemia Status: Acute (29) Hypokalemia Status: Acute (30) Hypokalemia Status: Acute (31) Hyponatremia Status: Acute (32) Hyponatremia Status: Acute (33) Hyponatremia Status: Acute (34) Hypoxia Status: Acute (35) Hypoxia Status: Acute (36) Left arm swelling Status: Acute (37) Lower extremity weakness Status: Acute (38) Renal insufficiency Status: Acute (39) Respiratory failure with hypoxia Status: Acute (40) Seizure Status: Acute (41) SOB (shortness of breath) Status: Acute (42) SVT (supraventricular tachycardia) Status: Acute (43) Systolic CHF, acute on chronic Status: Acute (44) Weakness Status: Acute Review of Systems Constitutional: + weakness, + fatigue, No fever, No chills, No sweats, No weight loss, No problem reported Eyes: No worsening of vision, No eye pain, No redness, No discharge, No diplopia ENT: No hearing loss, No unusual epistaxis, No nasal symptoms, No sore throat, No tinnitus, No dental problems, No trouble swallowing Respiratory: No cough, No sputum, No wheezing, No shortness of breath, No dyspnea on exertion, No dyspnea at rest, No hemoptysis Cardiac: No chest pain, No orthopnea, No PND, No edema, No claudication, No palpitations Abdomen: No pain, No nausea, No vomiting, No diarrhea, No constipation Musculoskeletal: No joint pain, No muscle pain, No swelling, No calf pain Female : + problem reported (Iniguez catheter in place,), No dysuria, No urinary frequency, No hematuria, No incontinence, No abnormal vaginal bleeding, No vaginal discharge Neurologic: No memory loss, No paralysis, No weakness, No numbness/tingling, No vertigo, No balance problems Psychiatric: No depression symptoms, No anhedonism, No anxiety, No insomnia, No substance abuse Heme: No abnormal bleeding/bruising, No clotting problems, No swollen lymph nodes, No night sweats Endo: No fatigue, No excessive thirst, No excessive urination Skin: No rash, No itch, No new/changing skin lesions, No color change, No bleeding Objective Vital Signs Date Time Temp Pulse Resp B/P (MAP) Pulse Ox O2 Delivery O2 Flow Rate FiO2 12/16/17 15:20 37.1 81 22 100/62 (75) 95 BiPAP 12/16/17 11:56 36.7 74 20 94/59 (71) 93 Nasal Cannula 3.5 12/16/17 08:06 95 Nasal Cannula 3.0 12/16/17 07:04 36.9 81 16 115/67 (83) 98 BiPAP 12/16/17 05:00 88 95 40 12/16/17 04:32 37.0 87 12 104/79 (87) 95 BiPAP 12/16/17 04:00 92 BiPAP 12/16/17 02:07 82 93 40 12/16/17 00:00 92 BiPAP 12/15/17 23:46 36.9 81 17 122/77 (92) 97 BiPAP 12/15/17 22:13 80 92 40 12/15/17 20:00 95 Nasal Cannula 3.0 12/15/17 17:39 36.8 75 16 100 3.0 12/15/17 17:39 83 17 107/42 (63) 99 CPAP 12/15/17 16:00 BiPAP Physical Exam General Appearance: WD/WN, no apparent distress, + obese Eyes: normal inspection, PERRL, EOMI, sclerae normal ENT: normal ENT inspection, hearing grossly normal, pharynx normal Neck: supple, no adenopathy, thyroid normal, no JVD, no carotid bruits, trachea midline Respiratory/Chest: chest non-tender, normal breath sounds, no respiratory distress, no accessory muscle use, + decreased breath sounds, + crackles ( Bilateral base a few), + wheezing (Occasional) Cardiovascular: regular rate, rhythm, no gallop, no JVD, no murmur, + pertinent finding (1+ edema) Abdomen: normal bowel sounds, non tender, soft, no organomegaly, no pulsatile mass Extremities: normal range of motion, non-tender, normal inspection, no pedal edema, no calf tenderness, normal capillary refill, pelvis stable, + swelling 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, no motor/sensory deficits, alert, normal mood/affect, oriented x 3 Skin: normal color, warm/dry, no rash Lymphatic: no adenopathy Laboratory Results Last 24 Hours Test 12/15/17 16:31 12/15/17 19:21 12/15/17 20:44 12/16/17 04:36 Bedside Glucose 148 mg/dl 178 mg/dl Arterial Blood pH 7.27 7.29 Arterial Blood Partial Pressure CO2 99 mmHg 91 mmHg Arterial Blood Partial Pressure O2 99 mm/Hg 101 mm/Hg Arterial Blood HCO3 44 mmol/L 43 mmol/L Arterial Blood Oxygen Saturation 95.6 % 94.9 % Arterial Blood Base Excess 13.3 mEq/L 13.2 mEq/L Arterial Blood Gas Delivery 3L 40% Christiano Test POS POS Sodium Level 135 mmol/L Potassium Level 4.2 mmol/L Chloride Level 92 mmol/L Carbon Dioxide Level 40 mmol/L Anion Gap 2.0 mmol/L Blood Urea Nitrogen 19 mg/dl Creatinine 1.05 mg/dl Est Creatinine Clear Calc Drug Dose 68.0 ml/min Estimated GFR () 65.9 Estimated GFR (Non- 56.9 BUN/Creatinine Ratio 18.2 Random Glucose 165 mg/dl Calcium Level 8.3 mg/dl Phosphorus Level 3.0 mg/dl Magnesium Level 2.4 mg/dl Ammonia 86.0 umol/L Test 12/16/17 07:27 12/16/17 11:23 Bedside Glucose 170 mg/dl 189 mg/dl Assessment and Plan 62-year-old female admitted on 10 December 2017 for acute on chronic diastolic and systolic CHF exacerbation with shortness of breath and found to be in SVT. PMH: Schizoaffective disorder, severe KORI, biventricular congestive heart failure, diabetes, HONK, hyponatremia, metabolic encephalopathy, acute renal failure, lithium toxicity, anemia., Multiple frequent admission hospital Acute on chronic mental status changes likely acute on chronic metabolic encephalopathy, Likely causes for the above condition is acute on chronic hypercapnic respiratory failure, metabolic acidosis and respiratory acidosis acute on chronic respiratory failure with CO2 retention and combined metabolic and respiratory acidosis History of COPD CO 2 retention chronic respiratory failure Improved after BiPAP, Today's ABG reviewed, Continue BiPAP, only can be off BiPAP when she taking male, she need to be on BiPAP whole night when she is Patient may have medicine compliance issues, I did have detailed education to her, she agreed to keep the plan acute on chronic systolic and diastoic heart failure with recent LVEF 45%, stable improving, has good negative urine output around 5 L BiPAP machine at home is broken, prescription has gave to case management Continue free water restriction to 1.5 L daily, continue Lasix Acute mental status changes, in addition to the above-mentioned conditions, possible also related to elevated ammonia too, this morning ammonia level was 89 , She has been refusing taking lactulose, no bowel movement yesterday and the day before, has 1 bowel movement this morning History of elevated ammonia metabolic encephalopathy Encourage her to continue lactulose, keep every day at least 2 time bowel movement Hypoglycemia, history of DM, glucose of 48. , Lantus was on hold stable, improved, today's bg is around 150-180, it is in acceptable level poor nutrition at home due to illness Anemia: Schizoaffective disorder: Suspect seizure disorder: HTN The above condition stable Code status: DNR. DVT prophy: Lovenox. Continue current care, continue in tele Continued [facility] stay due to: multiple IV medications needed Discharge planning: home
[2017-12-16] MEDS: ONDANSETRON INJ 2 MG/ML 2 ML VIAL IV PRN (18:53)
[2017-12-16] MEDS ORDERED: OPTIRAY 320 IV PRN (19:15)
--- NOTE | 2017-12-16 19:57 | DIAGNOSTIC IMAGING REPORT ---
CT ANGIOGRAM OF THE CHEST CLINICAL HISTORY: Shortness of breath, SVT. COMPARISON STUDY: January 2014, chest x-ray dated 12/15/2017 TECHNIQUE: Following the IV administration of 100 mL of Optiray-320, CT angiogram of the thorax was performed from the thoracic inlet to the lung bases utilizing the pulmonary embolus protocol. Images are reviewed in the axial, sagittal, and coronal planes. IV contrast was administered without complication. MIP imaging was performed. A dose lowering technique was utilized adhering to the principles of ALARA. CT DOSE: 702.56 mGy.cm FINDINGS: There is shotty bilateral borderline enlarged axillary lymph nodes. There was no evidence of thoracic aortic dilatation. The study is mildly compromised due to respiratory motion artifact. There are no pulmonary artery filling defects to indicate acute pulmonary embolism. The main pulmonary trunk is enlarged and larger than the aorta. The findings are indicative of pulmonary hypertension No pleural effusions are visualized. There are few scattered patchy airspace opacities, likely atelectatic. There is a 5 mm right upper lobe pulmonary nodule which appears larger than on the prior study. There is also an enlarging 7 mm solid right middle lobe pulmonary nodule. A few additional scattered micronodules are evident. The heart is enlarged. There is pronounced right atrial dilatation. There is dilatation of the IVC and reflux of contrast into the hepatic veins. The findings are indicative of elevated right heart pressures. There is upper abdominal ascites. There is mild diffuse body wall edema. IMPRESSION: 1. No evidence of acute pulmonary embolism 2. Pulmonary arterial hypertension 3. Pronounced right atrial and IVC dilatation. The findings are indicative of elevated right heart pressures 4. Upper abdominal ascites 5. Enlarging indeterminate right lung pulmonary nodules 6. Mild axillary lymphadenopathy Electronically signed by: Neri Spicer M.D. 12/16/2017 7:56 PM Dictated Date/Time: 12/16/2017 7:48 PM
[2017-12-16] MEDS: HALOPERIDOL 0.5 MG TAB PO SCH (20:38)
[2017-12-17] VITALS (11 sets, daily range): BP systolic 86–108; BP diastolic 44–59; PULSE 67–85; TEMP 36.3–36.9; O2SAT 90–97
[2017-12-17] MEDS: BENZONATATE 100MG CAP PO SCH ×3 (05:50→20:34)
[2017-12-17 07:06] LABS: CALCIUM 8.8 mg/dl (8.5-10.1); CREATININE 0.92 mg/dl (0.60-1.20); PHOSPHORUS 2.8 mg/dl (2.5-4.9)
[2017-12-17] MEDS: NYSTATIN POWDER 15GM BTL EXT SCH ×2 (07:45→20:31)
[2017-12-17] MEDS: IPRATROPIUM BROMIDE/ALBUTEROL respimat INH INH SCH ×4 (07:45→20:32)
[2017-12-17] MEDS: MAGNESIUM OXIDE 400 MG TAB PO SCH ×2 (07:46→20:33)
[2017-12-17] MEDS: LISINOPRIL 5 MG TAB PO SCH (07:46)
[2017-12-17] MEDS: LEVETIRACETAM 250 MG TAB PO SCH ×2 (07:46→20:33)
[2017-12-17] MEDS: LACTULOSE SYRUP 30 GM/45 ML UDP PO SCH ×3 (07:46→20:32)
[2017-12-17] MEDS: METOPROLOL SUCC 50MG EXT REL TAB PO SCH (07:47)
[2017-12-17] MEDS: INSULIN ASPART 100 UNITS/ML 3 ML PEN SC SCH ×4 (07:51→20:51)
[2017-12-17] MEDS: FUROSEMIDE INJ 40 MG in SYRINGE 0 ML IV SCH ×2 (08:26→16:30)
[2017-12-17] MEDS: ACETAMINOPHEN 325 MG TAB PO PRN ×2 (12:34→20:45)
[2017-12-17] MEDS ORDERED: LACTULOSE SYRUP 30 GM/45 ML UDP PO ONE (13:30)
--- NOTE | 2017-12-17 14:43 | Progress Note ---
Subjective Date of Service: Dec 17, 2017. Subjective Pt evaluation today including: conversation w/ patient, conversation w/ family , physical exam, chart review, lab review, review of studies, conversation w/ case consultant, review of inpatient medication list Voiding: rao catheter in place Nurse reported patient is more lethargic today, with an elevated ammonia level, however she has been taking lactulose, When examination she is on the BiPAP, awake able, orientated 3 , asking simple questions, Problem List Medical Problems: (1) Acute CHF Status: Acute (2) Acute renal failure (ARF) Status: Acute (3) Change in mental status Status: Acute (4) CHF (congestive heart failure) Status: Acute (5) CHF (congestive heart failure) Status: Acute (6) CHF exacerbation Status: Acute (7) CO2 retention Status: Acute (8) Congestive heart failure (CHF) Status: Chronic (9) Dehydration Status: Acute (10) DKA (diabetic ketoacidoses) Status: Acute (11) Elevated lithium level Status: Acute (12) Elevated troponin Status: Acute (13) Extrapyramidal and movement disorder Status: Acute (14) Fall Status: Acute (15) Hyperammonemia Status: Acute (16) Hyperammonemia Status: Acute (17) Hyperammonemia Permanent Comment: Non cirrhotic hyperammonemia Status: Acute (18) Hyperammonemia Status: Acute (19) Hypercalcemia Status: Acute (20) Hypercarbia Status: Acute (21) Hypercarbia Status: Acute (22) Hypercarbia Status: Acute (23) Hyperglycemia Status: Acute (24) Hyperglycemia Status: Acute (25) Hyperglycemia without ketosis Status: Acute (26) Hyperkalemia Status: Acute (27) Hyperosmolality Status: Acute (28) Hypoglycemia Status: Acute (29) Hypokalemia Status: Acute (30) Hypokalemia Status: Acute (31) Hyponatremia Status: Acute (32) Hyponatremia Status: Acute (33) Hyponatremia Status: Acute (34) Hypoxia Status: Acute (35) Hypoxia Status: Acute (36) Left arm swelling Status: Acute (37) Lower extremity weakness Status: Acute (38) Renal insufficiency Status: Acute (39) Respiratory failure with hypoxia Status: Acute (40) Seizure Status: Acute (41) SOB (shortness of breath) Status: Acute (42) SVT (supraventricular tachycardia) Status: Acute (43) Systolic CHF, acute on chronic Status: Acute (44) Weakness Status: Acute Review of Systems Constitutional: + weakness, + fatigue, + problem reported (Limited because of on BiPAP), No see HPI, No fever, No chills, No sweats, No weight loss Eyes: No see HPI, No worsening of vision, No eye pain, No redness, No discharge , No diplopia, No problem reported ENT: No see HPI, No hearing loss, No unusual epistaxis, No nasal symptoms, No sore throat, No tinnitus, No dental problems, No trouble swallowing, No problem reported Respiratory: + shortness of breath Cardiac: + edema, No see HPI, No chest pain, No orthopnea, No PND, No claudication, No palpitations, No problem reported Abdomen: No see HPI, No pain, No nausea, No vomiting, No diarrhea, No constipation, No GI bleeding, No problem reported Musculoskeletal: No see HPI, No joint pain, No muscle pain, No swelling, No calf pain, No problem reported Female : No see HPI, No dysuria, No urinary frequency, No hematuria, No incontinence, No abnormal vaginal bleeding, No vaginal discharge, No problem reported Neurologic: + problem reported (Lethargic) Psychiatric: No see HPI, No depression symptoms, No anhedonism, No anxiety, No insomnia, No substance abuse, No problem reported Heme: No see HPI, No abnormal bleeding/bruising, No clotting problems, No swollen lymph nodes, No night sweats, No problem reported Skin: No see HPI, No rash, No itch, No new/changing skin lesions, No color change, No bleeding, No problem reported Objective Vital Signs Date Time Temp Pulse Resp B/P (MAP) Pulse Ox O2 Delivery O2 Flow Rate FiO2 12/17/17 12:07 36.8 67 20 97/44 (61) 96 Nasal Cannula 3.0 12/17/17 08:05 Nasal Cannula 3.0 12/17/17 07:06 36.3 83 20 106/59 (75) 91 Nasal Cannula 3.0 12/17/17 05:28 78 94 35 12/17/17 04:34 36.3 77 20 108/51 (70) 94 BiPAP 12/17/17 02:23 71 96 40 12/17/17 00:00 96 BiPAP 12/16/17 23:59 36.9 73 18 92/58 (69) 96 BiPAP 12/16/17 22:13 76 96 40 12/16/17 20:00 95 Nasal Cannula 3.0 12/16/17 15:20 37.1 81 22 100/62 (75) 95 BiPAP Physical Exam General Appearance: WD/WN, no apparent distress, + obese, + pertinent finding ( Mild more lethargic than yesterday) Eyes: normal inspection, PERRL, EOMI, sclerae normal ENT: normal ENT inspection, hearing grossly normal, pharynx normal Neck: supple, no adenopathy, thyroid normal, no JVD, no carotid bruits, trachea midline Respiratory/Chest: chest non-tender, normal breath sounds, no respiratory distress, no accessory muscle use, + decreased breath sounds, + crackles (Fine crackles bilateral lower lungs) Cardiovascular: regular rate, rhythm, no gallop, no JVD, no murmur Abdomen: normal bowel sounds, non tender, soft, no organomegaly, no pulsatile mass Extremities: normal range of motion, non-tender, normal inspection, no pedal edema, no calf tenderness, normal capillary refill, pelvis stable, + swelling ( Trace edema) 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: 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, no motor/sensory deficits, alert, normal mood/affect, oriented x 3 Skin: normal color, warm/dry, no rash Lymphatic: no adenopathy Laboratory Results Last 24 Hours Test 12/16/17 16:17 12/16/17 17:25 12/16/17 20:25 12/17/17 06:19 Bedside Glucose 215 mg/dl 262 mg/dl D-Dimer 4090 ug/L FEU Arterial Blood pH 7.33 Arterial Blood Partial Pressure CO2 84 mmHg Arterial Blood Partial Pressure O2 84 mm/Hg Arterial Blood HCO3 43 mmol/L Arterial Blood Oxygen Saturation 94.1 % Arterial Blood Base Excess 14.1 mEq/L Arterial Blood Gas Delivery 35% Christiano Test POS Sodium Level 135 mmol/L Potassium Level 4.0 mmol/L Chloride Level 91 mmol/L Carbon Dioxide Level 42 mmol/L Anion Gap 2.0 mmol/L Blood Urea Nitrogen 22 mg/dl Creatinine 0.92 mg/dl Est Creatinine Clear Calc Drug Dose 77.5 ml/min Estimated GFR () 77.3 Estimated GFR (Non- 66.7 BUN/Creatinine Ratio 23.5 Random Glucose 143 mg/dl Calcium Level 8.8 mg/dl Phosphorus Level 2.8 mg/dl Magnesium Level 2.7 mg/dl Ammonia 118.3 umol/L Test 12/17/17 07:24 12/17/17 11:38 Bedside Glucose 148 mg/dl 174 mg/dl Ammonia 106.0 umol/L Assessment and Plan 62-year-old female admitted on 10 December 2017 for acute on chronic diastolic and systolic CHF exacerbation with shortness of breath and found to be in SVT. PMH: Schizoaffective disorder, severe KORI, biventricular congestive heart failure, diabetes, HONK, hyponatremia, metabolic encephalopathy, acute renal failure, lithium toxicity, anemia., Multiple frequent admission hospital Acute on chronic mental status changes likely acute on chronic metabolic encephalopathy, today a little bit worse, Negative because of metabolic encephalopathy with more elevated ammonia level We will give additional dose of lactulose now, continue scheduled lactulose, follow-up ammonia level The other reason I say this because of elevated lactulose is because patient's ABG shows PCO2 retention and hypoxia is improved this morning PCO2 was 84 and PaO2 was 84 Which is better than yesterday, patient will be okay off BiPAP at daytime and only BiPAP at night acute on chronic respiratory failure with CO2 retention and combined metabolic and respiratory acidosis History of COPD CO 2 retention chronic respiratory failure Improved after BiPAP, Continue BiPAP, patient will be okay off BiPAP at daytime and only BiPAP at night Chest CT has rule out PE, but likely has cor pulmonale BiPAP machine at home is broken, prescription has gave to case management acute on chronic systolic and diastoic heart failure with recent LVEF 45%, stable improving, has good negative urine output around 5 L Continue free water restriction to 1.5 L daily, continue Lasix, in the lower dose at 40 mg p.o. twice daily, the reason for now is because of metabolic alkalosis from high dose of Lasix Was having hypoglycemia, history of DM, glucose of 48. , Lantus was on hold Will restart Lantus at 4 unit subcu every 12 hours, Anemia: Schizoaffective disorder: Suspect seizure disorder: HTN The above condition stable Code status: DNR. DVT prophy: Lovenox. Continue current care, continue in tele, possible med/surg , and discharge so, Talk to patient's daughter, updated her old medical information Continued [facility] stay due to: multiple IV medications needed Discharge planning: home
[2017-12-17] MEDS: HALOPERIDOL 0.5 MG TAB PO SCH (20:32)
[2017-12-17] MEDS: INSULIN GLARGINE SOLOSTAR 100 UNITS/ML 3 ML PEN SQ SCH (20:50)
[2017-12-18] VITALS (8 sets, daily range): BP systolic 94–122; BP diastolic 59–95; PULSE 55–98; TEMP 36.7–37; O2SAT 92–99
[2017-12-18] MEDS: BENZONATATE 100MG CAP PO SCH ×3 (05:39→21:24)
[2017-12-18] MEDS: INSULIN ASPART 100 UNITS/ML 3 ML PEN SC SCH ×4 (08:07→21:21)
[2017-12-18] MEDS: INSULIN GLARGINE SOLOSTAR 100 UNITS/ML 3 ML PEN SQ SCH ×2 (08:08→21:21)
[2017-12-18] MEDS: IPRATROPIUM BROMIDE/ALBUTEROL respimat INH INH SCH ×4 (08:09→19:58)
[2017-12-18] MEDS: FUROSEMIDE INJ 40 MG in SYRINGE 0 ML IV SCH ×2 (08:09→16:55)
[2017-12-18] MEDS: MAGNESIUM OXIDE 400 MG TAB PO SCH ×2 (08:10→19:59)
[2017-12-18] MEDS: LEVETIRACETAM 250 MG TAB PO SCH ×2 (08:10→19:59)
[2017-12-18] MEDS: METOPROLOL SUCC 50MG EXT REL TAB PO SCH (08:10)
[2017-12-18] MEDS: LACTULOSE SYRUP 30 GM/45 ML UDP PO SCH ×3 (08:10→16:55)
[2017-12-18] MEDS: LISINOPRIL 5 MG TAB PO SCH (08:11)
[2017-12-18 08:24] LABS: BASO % 0.2 %; BASO ABS # 0.01 K/uL (0-0.2); EOS % 1.7 %; EOS ABS # 0.08 K/uL (0-0.5); HEMATOCRIT 38.5 % (37-47); HEMOGLOBIN 10.6 g/dL (12.0-16.0); IG# 0.01 K/uL (0.00-0.02); LYMPH % 19.6 %; MEAN CELL VOLUME 97.7 fL (80-100); MEAN CORPUSCULAR HEMOGLOBIN 26.9 pg (25-34); MEAN CORPUSCULAR HGB CONC 27.5 g/dl (32-36); MEAN PLATELET VOLUME 10.3 fL (7.4-10.4); MONO % 20.3 %; MONO ABS # 0.93 K/uL (0.11-0.59); NEUT ABS # 2.66 K/uL (1.4-6.5); NUCLEATED RED BLOOD CELL ABS 0.02 K/uL (0-0); PLATELET COUNT 199 K/uL (130-400); RED CELL DISTRIBUTION WIDTH CV 19.5 % (11.5-14.5); RED CELL DISTRIBUTION WIDTH SD 69.9 fL (36.4-46.3); WHITE BLOOD COUNT 4.59 K/uL (4.8-10.8)
[2017-12-18] MEDS: ACETAMINOPHEN 325 MG TAB PO PRN ×2 (08:24→19:04)
[2017-12-18 08:56] LABS: CREATININE 0.93 mg/dl (0.60-1.20); PHOSPHORUS 2.9 mg/dl (2.5-4.9); POTASSIUM 3.9 mmol/L (3.5-5.1)
[2017-12-18] MEDS: NYSTATIN POWDER 15GM BTL EXT SCH ×2 (09:00→19:58)
--- NOTE | 2017-12-18 12:36 | Progress Note ---
Subjective Date of Service: Dec 18, 2017. Subjective Pt evaluation today including: conversation w/ patient, conversation w/ family , physical exam, chart review, lab review, review of studies, review of inpatient medication list Lethargic is a little bit better, conversational, report whole-body uncomfortable, Problem List Medical Problems: (1) Acute CHF Status: Acute (2) Acute renal failure (ARF) Status: Acute (3) Change in mental status Status: Acute (4) CHF (congestive heart failure) Status: Acute (5) CHF (congestive heart failure) Status: Acute (6) CHF exacerbation Status: Acute (7) CO2 retention Status: Acute (8) Congestive heart failure (CHF) Status: Chronic (9) Dehydration Status: Acute (10) DKA (diabetic ketoacidoses) Status: Acute (11) Elevated lithium level Status: Acute (12) Elevated troponin Status: Acute (13) Extrapyramidal and movement disorder Status: Acute (14) Fall Status: Acute (15) Hyperammonemia Status: Acute (16) Hyperammonemia Status: Acute (17) Hyperammonemia Permanent Comment: Non cirrhotic hyperammonemia Status: Acute (18) Hyperammonemia Status: Acute (19) Hypercalcemia Status: Acute (20) Hypercarbia Status: Acute (21) Hypercarbia Status: Acute (22) Hypercarbia Status: Acute (23) Hyperglycemia Status: Acute (24) Hyperglycemia Status: Acute (25) Hyperglycemia without ketosis Status: Acute (26) Hyperkalemia Status: Acute (27) Hyperosmolality Status: Acute (28) Hypoglycemia Status: Acute (29) Hypokalemia Status: Acute (30) Hypokalemia Status: Acute (31) Hyponatremia Status: Acute (32) Hyponatremia Status: Acute (33) Hyponatremia Status: Acute (34) Hypoxia Status: Acute (35) Hypoxia Status: Acute (36) Left arm swelling Status: Acute (37) Lower extremity weakness Status: Acute (38) Renal insufficiency Status: Acute (39) Respiratory failure with hypoxia Status: Acute (40) Seizure Status: Acute (41) SOB (shortness of breath) Status: Acute (42) SVT (supraventricular tachycardia) Status: Acute (43) Systolic CHF, acute on chronic Status: Acute (44) Weakness Status: Acute Review of Systems Constitutional: + weakness, + fatigue Eyes: No worsening of vision, No eye pain, No redness, No discharge, No diplopia ENT: No hearing loss, No unusual epistaxis, No nasal symptoms, No sore throat, No tinnitus, No dental problems, No trouble swallowing Respiratory: + shortness of breath, No cough, No sputum, No wheezing, No dyspnea on exertion, No dyspnea at rest, No hemoptysis Cardiac: + edema, No chest pain, No orthopnea, No PND, No claudication, No palpitations Abdomen: No pain, No nausea, No vomiting, No diarrhea, No constipation Musculoskeletal: + muscle pain, No joint pain, No swelling, No calf pain Female : No dysuria, No urinary frequency, No hematuria, No incontinence, No abnormal vaginal bleeding, No vaginal discharge Neurologic: No memory loss, No paralysis, No weakness, No numbness/tingling, No vertigo, No balance problems Psychiatric: No depression symptoms, No anhedonism, No anxiety, No insomnia, No substance abuse Heme: No abnormal bleeding/bruising, No clotting problems, No swollen lymph nodes, No night sweats Endo: No fatigue, No excessive thirst, No excessive urination Skin: No rash, No itch, No new/changing skin lesions, No color change, No bleeding Objective Vital Signs Date Time Temp Pulse Resp B/P (MAP) Pulse Ox O2 Delivery O2 Flow Rate FiO2 12/18/17 11:00 36.7 98 19 121/71 (88) 94 Room Air 3.0 12/18/17 08:00 94 Nasal Cannula 3.0 12/18/17 05:56 37.0 73 19 110/63 (79) 99 BiPAP 12/17/17 23:06 36.7 76 24 86/51 (63) 97 CPAP 12/17/17 22:17 74 94 35 12/17/17 20:00 94 Nasal Cannula 3.0 12/17/17 19:38 36.7 85 24 108/59 (75) 90 Nasal Cannula 3.0 12/17/17 15:32 36.9 76 24 89/58 (68) 97 Nasal Cannula 3.0 Physical Exam General Appearance: WD/WN, no apparent distress, + obese, + pertinent finding ( Lethargic chronically ill looking,) Eyes: normal inspection, PERRL, EOMI, sclerae normal ENT: normal ENT inspection, hearing grossly normal, pharynx normal Neck: supple, no adenopathy, thyroid normal, no JVD, no carotid bruits, trachea midline Respiratory/Chest: chest non-tender, normal breath sounds, no respiratory distress, no accessory muscle use, + decreased breath sounds Cardiovascular: regular rate, rhythm, no gallop, no JVD, no murmur, + pertinent finding (Trace to 1+ edema bilateral lower extremity) Abdomen: normal bowel sounds, non tender, soft, no organomegaly, no pulsatile mass Extremities: normal range of motion, non-tender, normal inspection, no calf tenderness, normal capillary refill, pelvis stable, + swelling 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: 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, no motor/sensory deficits, alert, normal mood/affect, oriented x 3 Skin: normal color, warm/dry, no rash Lymphatic: no adenopathy Laboratory Results Last 24 Hours Test 12/17/17 16:23 12/17/17 20:13 12/18/17 07:31 12/18/17 07:54 Bedside Glucose 180 mg/dl 224 mg/dl 131 mg/dl White Blood Count 4.59 K/uL Red Blood Count 3.94 M/uL Hemoglobin 10.6 g/dL Hematocrit 38.5 % Mean Corpuscular Volume 97.7 fL Mean Corpuscular Hemoglobin 26.9 pg Mean Corpuscular Hemoglobin Concent 27.5 g/dl Platelet Count 199 K/uL Mean Platelet Volume 10.3 fL Neutrophils (%) (Auto) 58.0 % Lymphocytes (%) (Auto) 19.6 % Monocytes (%) (Auto) 20.3 % Eosinophils (%) (Auto) 1.7 % Basophils (%) (Auto) 0.2 % Neutrophils # (Auto) 2.66 K/uL Lymphocytes # (Auto) 0.90 K/uL Monocytes # (Auto) 0.93 K/uL Eosinophils # (Auto) 0.08 K/uL Basophils # (Auto) 0.01 K/uL RDW Standard Deviation 69.9 fL RDW Coefficient of Variation 19.5 % Immature Granulocyte % (Auto) 0.2 % Immature Granulocyte # (Auto) 0.01 K/uL Nucleated RBC Absolute Count (auto) 0.02 K/uL Nucleated Red Blood Cells % 0.5 % Sodium Level 135 mmol/L Potassium Level 3.9 mmol/L Chloride Level 91 mmol/L Carbon Dioxide Level 42 mmol/L Anion Gap 4.0 mmol/L Blood Urea Nitrogen 16 mg/dl Creatinine 0.93 mg/dl Est Creatinine Clear Calc Drug Dose 76.7 ml/min Estimated GFR () 76.3 Estimated GFR (Non- 65.9 BUN/Creatinine Ratio 17.7 Random Glucose 145 mg/dl Calcium Level 9.0 mg/dl Phosphorus Level 2.9 mg/dl Magnesium Level 2.7 mg/dl Ammonia umol/L Chemistry Specimen Hemolysis Test 12/18/17 09:22 12/18/17 09:41 12/18/17 11:23 Arterial Blood pH 7.33 Arterial Blood Partial Pressure CO2 84 mmHg Arterial Blood Partial Pressure O2 73 mm/Hg Arterial Blood HCO3 44 mmol/L Arterial Blood Oxygen Saturation 92.3 % Arterial Blood Base Excess 14.3 mEq/L Arterial Blood Gas Delivery 3L Christiano Test POS Ammonia 99.4 umol/L Bedside Glucose 210 mg/dl Assessment and Plan 62-year-old female admitted on 10 December 2017 for acute on chronic diastolic and systolic CHF exacerbation with shortness of breath , was transferred to PCU because of acute mental status changes with significant CO2 retention which was improved on BiPAP, now transferred back to [facility] today PMH: Schizoaffective disorder, severe KORI, biventricular congestive heart failure, diabetes, HONK, hyponatremia, metabolic encephalopathy, acute renal failure, lithium toxicity, anemia., Multiple frequent admission hospital Acute on chronic mental status changes likely acute on chronic metabolic encephalopathy, today a little bit better, likely because of metabolic encephalopathy with more elevated ammonia level at 104, today's ammonia is 99, other contributory factors to the mental status changes also include CO2 retention combined respiratory acidosis Has increased lactulose to 30 4 times daily, and continue follow-up labs, encourage about medicine compliance, patient will be okay off BiPAP at daytime and only BiPAP at night acute on chronic respiratory failure with CO2 retention and combined metabolic and respiratory acidosis History of COPD CO 2 retention chronic respiratory failure Improved after BiPAP, Continue BiPAP, patient will be okay off BiPAP at daytime and only BiPAP at night Chest CT has rule out PE, but likely has cor pulmonale BiPAP machine at home is broken, prescription has gave to case management, need to make sure patient new BiPAP machine arrived to home before discharge patient to home acute on chronic systolic and diastoic heart failure with recent LVEF 45%, stable improving, has good negative urine output around & L Continue free water restriction to 1.5 L daily, continue Lasix, in the lower dose at 40 mg p.o. twice daily, the reason for now is because of metabolic alkalosis from high dose of Lasix Was having hypoglycemia, history of DM, glucose of 48. , Lantus was on hold Has restarted Lantus at 4 unit subcu every 12 hours yesterday Anemia: Schizoaffective disorder: Suspect seizure disorder: HTN The above condition stable Code status: DNR. DVT prophy: Lovenox. Continue current care, med/surg , and discharge plan, possible tomorrow Discussed with patient, and about patient conditions, point out that medicine noncompliance issues which have caused her condition getting worse, understand Continued [facility] stay due to: multiple IV medications needed Discharge planning: home
[2017-12-18] MEDS: HALOPERIDOL 0.5 MG TAB PO SCH (19:59)
[2017-12-19] VITALS: O2SAT 95
[2017-12-19] MEDS: LACTULOSE SYRUP 30 GM/45 ML UDP PO SCH ×5 (00:25→18:19)
[2017-12-19] MEDS: BENZONATATE 100MG CAP PO SCH ×3 (06:31→20:12)
[2017-12-19] MEDS: ACETAMINOPHEN 325 MG TAB PO PRN ×2 (06:38→18:28)
[2017-12-19 07:26] VITALS: BP 103/64; PULSE 76; TEMP 36.6; O2SAT 96
[2017-12-19 07:41] LABS: CALCIUM 8.6 mg/dl (8.5-10.1); CREATININE 0.88 mg/dl (0.60-1.20)
[2017-12-19] MEDS: IPRATROPIUM BROMIDE/ALBUTEROL respimat INH INH SCH ×4 (07:57→22:13)
[2017-12-19] MEDS: FUROSEMIDE INJ 40 MG in SYRINGE 0 ML IV SCH ×2 (07:57→17:30)
[2017-12-19] MEDS: NYSTATIN POWDER 15GM BTL EXT SCH ×2 (07:58→20:13)
[2017-12-19] MEDS: METOPROLOL SUCC 50MG EXT REL TAB PO SCH (07:58)
[2017-12-19] MEDS: MAGNESIUM OXIDE 400 MG TAB PO SCH ×2 (07:58→20:12)
[2017-12-19] MEDS: LEVETIRACETAM 250 MG TAB PO SCH ×2 (07:58→20:11)
[2017-12-19] MEDS: LISINOPRIL 5 MG TAB PO SCH (07:58)
[2017-12-19] MEDS: INSULIN ASPART 100 UNITS/ML 3 ML PEN SC SCH ×4 (08:00→20:18)
[2017-12-19] MEDS: INSULIN GLARGINE SOLOSTAR 100 UNITS/ML 3 ML PEN SQ SCH ×2 (08:01→20:18)
[2017-12-19 08:47] LABS: POTASSIUM 3.6 mmol/L (3.5-5.1)
--- NOTE | 2017-12-19 09:00 | Progress Note ---
Subjective Date of Service: Dec 19, 2017. Subjective pt is a bit confused but is not at her baseline, her is at bedside and was updated, he feels that she needs more lactulose Problem List Medical Problems: (1) Acute CHF Status: Acute (2) Acute renal failure (ARF) Status: Acute (3) Change in mental status Status: Acute (4) CHF (congestive heart failure) Status: Acute (5) CHF (congestive heart failure) Status: Acute (6) CHF exacerbation Status: Acute (7) CO2 retention Status: Acute (8) Congestive heart failure (CHF) Status: Chronic (9) Dehydration Status: Acute (10) DKA (diabetic ketoacidoses) Status: Acute (11) Elevated lithium level Status: Acute (12) Elevated troponin Status: Acute (13) Extrapyramidal and movement disorder Status: Acute (14) Fall Status: Acute (15) Hyperammonemia Status: Acute (16) Hyperammonemia Status: Acute (17) Hyperammonemia Permanent Comment: Non cirrhotic hyperammonemia Status: Acute (18) Hyperammonemia Status: Acute (19) Hypercalcemia Status: Acute (20) Hypercarbia Status: Acute (21) Hypercarbia Status: Acute (22) Hypercarbia Status: Acute (23) Hyperglycemia Status: Acute (24) Hyperglycemia Status: Acute (25) Hyperglycemia without ketosis Status: Acute (26) Hyperkalemia Status: Acute (27) Hyperosmolality Status: Acute (28) Hypoglycemia Status: Acute (29) Hypokalemia Status: Acute (30) Hypokalemia Status: Acute (31) Hyponatremia Status: Acute (32) Hyponatremia Status: Acute (33) Hyponatremia Status: Acute (34) Hypoxia Status: Acute (35) Hypoxia Status: Acute (36) Left arm swelling Status: Acute (37) Lower extremity weakness Status: Acute (38) Renal insufficiency Status: Acute (39) Respiratory failure with hypoxia Status: Acute (40) Seizure Status: Acute (41) SOB (shortness of breath) Status: Acute (42) SVT (supraventricular tachycardia) Status: Acute (43) Systolic CHF, acute on chronic Status: Acute (44) Weakness Status: Acute Review of Systems Constitutional: + weakness, + fatigue, No fever, No chills Respiratory: No cough, No shortness of breath Cardiac: No chest pain, No edema Abdomen: No pain, No nausea, No vomiting, No diarrhea Musculoskeletal: No joint pain, No muscle pain Neurologic: No memory loss, No paralysis Psychiatric: + depression symptoms, + anhedonism, + anxiety Endo: + fatigue Objective Vital Signs Date Time Temp Pulse Resp B/P (MAP) Pulse Ox O2 Delivery O2 Flow Rate FiO2 12/19/17 07:26 36.6 76 18 103/64 (77) 96 Nasal Cannula 2.0 12/19/17 00:00 95 Nasal Cannula 3.0 BiPAP 12/18/17 23:23 36.9 78 20 94/60 (71) 95 BiPAP 12/18/17 21:45 76 95 3.0 12/18/17 16:30 Nasal Cannula 3.0 12/18/17 14:51 36.7 81 20 100/59 (73) 92 Nasal Cannula 3.0 12/18/17 14:27 36.7 98 19 94 3.0 12/18/17 11:00 36.7 98 19 121/71 (88) 94 Room Air 3.0 Physical Exam General Appearance: WD/WN, + mild distress Eyes: normal inspection, sclerae normal Respiratory/Chest: chest non-tender, lungs clear, normal breath sounds Cardiovascular: regular rate, rhythm, no murmur Abdomen: normal bowel sounds, non tender, soft Extremities: no pedal edema, no calf tenderness 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: alert, + depressed affect, + disoriented Laboratory Results Last 24 Hours Test 12/18/17 09:22 12/18/17 09:41 12/18/17 11:23 12/18/17 16:39 Arterial Blood pH 7.33 Arterial Blood Partial Pressure CO2 84 mmHg Arterial Blood Partial Pressure O2 73 mm/Hg Arterial Blood HCO3 44 mmol/L Arterial Blood Oxygen Saturation 92.3 % Arterial Blood Base Excess 14.3 mEq/L Arterial Blood Gas Delivery 3L Christiano Test POS Ammonia 99.4 umol/L Bedside Glucose 210 mg/dl 159 mg/dl Test 12/18/17 20:56 12/19/17 06:26 12/19/17 07:16 12/19/17 07:59 Bedside Glucose 194 mg/dl 146 mg/dl Sodium Level 136 mmol/L Potassium Level mmol/L 3.6 mmol/L Chloride Level 93 mmol/L Carbon Dioxide Level 40 mmol/L Anion Gap 3.0 mmol/L Blood Urea Nitrogen 12 mg/dl Creatinine 0.88 mg/dl Est Creatinine Clear Calc Drug Dose 79.7 ml/min Estimated GFR () 81.6 Estimated GFR (Non- 70.4 BUN/Creatinine Ratio 13.7 Random Glucose 136 mg/dl Calcium Level 8.6 mg/dl Magnesium Level mg/dl 2.8 mg/dl Ammonia 68.9 umol/L Assessment and Plan 62-year-old female admitted on 10 December 2017 for acute on chronic diastolic and systolic CHF exacerbation, SVT with shortness of breath , was transferred to PCU because of acute mental status changes with significant CO2 retention which was improved on BiPAP, now transferred back to [facility] PMH: Schizoaffective disorder, severe KORI, biventricular congestive heart failure, diabetes, HONK, hyponatremia, metabolic encephalopathy, acute renal failure, lithium toxicity, anemia., Multiple frequent admission hospital Acute on chronic mental status changes likely acute on chronic metabolic encephalopathy, combination of hepatic and metabolic encephalopathy Has increased lactulose to 45 2 times daily,, encouraged about medicine compliance, patient will be okay off BiPAP at daytime and only BiPAP at night acute on chronic respiratory failure with CO2 retention and combined metabolic and respiratory acidosis History of COPD CO 2 retention chronic respiratory failure Improved after BiPAP, Continue BiPAP, patient will be okay off BiPAP at daytime and only BiPAP at night Chest CT has rule out PE, but likely has cor pulmonale BiPAP machine at home is broken, prescription has gave to case management, need to make sure patient new BiPAP machine arrived to home before discharge patient to home acute on chronic systolic and diastolic heart failure with recent LVEF 45%, stable improving, has good negative urine output Continue free water restriction to 1.5 L daily, continue Lasix, in the lower dose at 40 mg p.o. twice daily, the reason for now is because of metabolic alkalosis from high dose of Lasix Was having hypoglycemia, history of DM, glucose of 48.restarted Lantus at 4 unit subcu every 12 hours yesterday Supraventricular tachycardia: resolved after adenosine. Patient has a history of the same during her September 2017 admission. Schizoaffective disorder: Presently on Haldol, no longer on lithium (and [place] level undetectable here). - Continue Haldol. Obstructive sleep apnea: Apparently broken BiPAP machine case management to help providing replacement. Suspect seizure disorder: As noted during her hospitalization in September 2017. Continue keppra. HTN lisinopril, metoprolol Code status: DNR. DVT prophy: Lovenox. Continued [facility] stay due to: multiple IV medications needed Discharge planning: home
[2017-12-19 15:54] VITALS: BP 110/65; PULSE 74; TEMP 36.7; O2SAT 97
[2017-12-19] MEDS ORDERED: LACTULOSE SYRUP 10 GM/15 ML BTL 473 ML PO ONE (18:50)
[2017-12-19 20:00] VITALS: O2SAT 97
[2017-12-19] MEDS: HALOPERIDOL 0.5 MG TAB PO SCH (20:11)
[2017-12-19] MEDS ORDERED: LACTULOSE SYRUP 20 GM/30 ML UDC PO SCH (21:00)
[2017-12-19 22:19] VITALS: PULSE 77; O2SAT 96
[2017-12-19 23:15] VITALS: BP 136/51; PULSE 69; TEMP 37; O2SAT 96
[2017-12-20] MEDS: LACTULOSE SYRUP 10 GM/15 ML BTL 473 ML PO SCH ×4 (00:30→17:41)
[2017-12-20] MEDS: ACETAMINOPHEN 325 MG TAB PO PRN ×3 (03:26→19:01)
[2017-12-20] MEDS: BENZONATATE 100MG CAP PO SCH ×3 (06:40→20:59)
[2017-12-20 07:15] VITALS: BP 94/61; PULSE 80; TEMP 36.8; O2SAT 98
[2017-12-20] MEDS: LEVETIRACETAM 250 MG TAB PO SCH ×2 (08:16→20:40)
[2017-12-20] MEDS: MAGNESIUM OXIDE 400 MG TAB PO SCH ×2 (08:16→20:40)
[2017-12-20] MEDS: METOPROLOL SUCC 50MG EXT REL TAB PO SCH (08:17)
[2017-12-20] MEDS: LISINOPRIL 5 MG TAB PO SCH (08:17)
[2017-12-20] MEDS: NYSTATIN POWDER 15GM BTL EXT SCH ×2 (08:18→20:39)
[2017-12-20] MEDS: IPRATROPIUM BROMIDE/ALBUTEROL respimat INH INH SCH ×4 (08:19→20:40)
[2017-12-20] MEDS: FUROSEMIDE INJ 40 MG in SYRINGE 0 ML IV SCH ×2 (08:21→18:12)
[2017-12-20] MEDS: INSULIN GLARGINE SOLOSTAR 100 UNITS/ML 3 ML PEN SQ SCH ×2 (08:24→20:47)
[2017-12-20] MEDS: INSULIN ASPART 100 UNITS/ML 3 ML PEN SC SCH ×4 (08:24→20:46)
[2017-12-20 08:59] LABS: ALBUMIN 2.8 gm/dl (3.4-5.0); ALKALINE PHOSPHATASE 184 U/L (45-117); ALT/SGPT 19 U/L (12-78); BLOOD UREA NITROGEN 10 mg/dl (7-18); CALCIUM 8.8 mg/dl (8.5-10.1); CARBON DIOXIDE 39 mmol/L (21-32); CREATININE 0.96 mg/dl (0.60-1.20); GLUCOSE 175 mg/dl (70-99); SODIUM 136 mmol/L (136-145); TOTAL PROTEIN 7.5 gm/dl (6.4-8.2)
[2017-12-20 10:27] LABS: POTASSIUM 3.4 mmol/L (3.5-5.1)
[2017-12-20] MEDS ORDERED: POTASSIUM CHLORIDE 10 MEQ TABCR PO STA (11:17)
[2017-12-20] MEDS: SULFAMETHOXAZOLE/TRIMETHOPRIM DS 800/160MG TAB PO SCH ×2 (13:23→20:40)
--- NOTE | 2017-12-20 15:05 | Progress Note ---
Subjective Date of Service: Dec 20, 2017. Subjective this pt is more clear but at times seems focused on unusual topics, still with some abdominal distension and abdominal wall edema, le edema persists, case management is having challenges with approval for home bipap, will try another nocturnal desaturation study Problem List Medical Problems: (1) Acute CHF Status: Acute (2) Acute renal failure (ARF) Status: Acute (3) Change in mental status Status: Acute (4) CHF (congestive heart failure) Status: Acute (5) CHF (congestive heart failure) Status: Acute (6) CHF exacerbation Status: Acute (7) CO2 retention Status: Acute (8) Congestive heart failure (CHF) Status: Chronic (9) Dehydration Status: Acute (10) DKA (diabetic ketoacidoses) Status: Acute (11) Elevated lithium level Status: Acute (12) Elevated troponin Status: Acute (13) Extrapyramidal and movement disorder Status: Acute (14) Fall Status: Acute (15) Hyperammonemia Status: Acute (16) Hyperammonemia Status: Acute (17) Hyperammonemia Permanent Comment: Non cirrhotic hyperammonemia Status: Acute (18) Hyperammonemia Status: Acute (19) Hypercalcemia Status: Acute (20) Hypercarbia Status: Acute (21) Hypercarbia Status: Acute (22) Hypercarbia Status: Acute (23) Hyperglycemia Status: Acute (24) Hyperglycemia Status: Acute (25) Hyperglycemia without ketosis Status: Acute (26) Hyperkalemia Status: Acute (27) Hyperosmolality Status: Acute (28) Hypoglycemia Status: Acute (29) Hypokalemia Status: Acute (30) Hypokalemia Status: Acute (31) Hyponatremia Status: Acute (32) Hyponatremia Status: Acute (33) Hyponatremia Status: Acute (34) Hypoxia Status: Acute (35) Hypoxia Status: Acute (36) Left arm swelling Status: Acute (37) Lower extremity weakness Status: Acute (38) Renal insufficiency Status: Acute (39) Respiratory failure with hypoxia Status: Acute (40) Seizure Status: Acute (41) SOB (shortness of breath) Status: Acute (42) SVT (supraventricular tachycardia) Status: Acute (43) Systolic CHF, acute on chronic Status: Acute (44) Weakness Status: Acute Review of Systems Constitutional: + weakness, + fatigue Respiratory: + cough, + shortness of breath Cardiac: + chest pain, + edema Abdomen: + diarrhea, No pain, No nausea, No vomiting Neurologic: + memory loss, + weakness Psychiatric: No depression symptoms, No anhedonism Objective Vital Signs Date Time Temp Pulse Resp B/P (MAP) Pulse Ox O2 Delivery O2 Flow Rate FiO2 12/20/17 08:00 Nasal Cannula 12/20/17 07:15 36.8 80 20 94/61 (72) 98 Room Air 12/19/17 23:15 37.0 69 20 136/51 (79) 96 BiPAP 3.0 12/19/17 22:19 77 96 3.0 12/19/17 20:00 97 Nasal Cannula 12/19/17 17:30 Nasal Cannula 2.0 12/19/17 15:54 36.7 74 20 110/65 (80) 97 Nasal Cannula 2.0 Physical Exam General Appearance: + mild distress, + obese Eyes: normal inspection, sclerae normal Neck: supple, no JVD Respiratory/Chest: chest non-tender, lungs clear, normal breath sounds Cardiovascular: regular rate, rhythm, no murmur Abdomen: normal bowel sounds, non tender, soft Extremities: normal range of motion, no pedal edema 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, alert Laboratory Results Last 24 Hours Test 12/19/17 16:29 12/19/17 20:02 12/20/17 07:31 12/20/17 08:03 Bedside Glucose 159 mg/dl 230 mg/dl 153 mg/dl Sodium Level 136 mmol/L Potassium Level mmol/L Chloride Level 93 mmol/L Carbon Dioxide Level 39 mmol/L Anion Gap 4.0 mmol/L Blood Urea Nitrogen 10 mg/dl Creatinine 0.96 mg/dl Est Creatinine Clear Calc Drug Dose 73.3 ml/min Estimated GFR () 73.5 Estimated GFR (Non- 63.4 BUN/Creatinine Ratio 9.9 Random Glucose 175 mg/dl Calcium Level 8.8 mg/dl Magnesium Level mg/dl Total Bilirubin 1.0 mg/dl Direct Bilirubin mg/dl Aspartate Amino Transf (AST/SGOT) U/L Alanine Aminotransferase (ALT/SGPT) 19 U/L Alkaline Phosphatase 184 U/L Total Protein 7.5 gm/dl Albumin 2.8 gm/dl Test 12/20/17 09:52 12/20/17 11:28 Potassium Level 3.4 mmol/L Magnesium Level 2.6 mg/dl Direct Bilirubin 0.5 mg/dl Aspartate Amino Transf (AST/SGOT) 37 U/L Bedside Glucose 216 mg/dl Assessment and Plan 62-year-old female admitted on 10 December 2017 for acute on chronic diastolic and systolic CHF exacerbation, SVT with shortness of breath , was transferred to PCU because of acute mental status changes with significant CO2 retention which was improved on BiPAP, now transferred back to [facility], in process of arranging home Bipap PMH: Schizoaffective disorder, severe KORI, biventricular congestive heart failure, diabetes, HONK, hyponatremia, metabolic encephalopathy, acute renal failure, lithium toxicity, anemia., Multiple frequent admission hospital Acute on chronic mental status changes likely acute on chronic metabolic encephalopathy, combination of hepatic and metabolic encephalopathy Has increased lactulose to 45 4 times daily, has some clearing of mental state , encouraged about medicine compliance, patient will be okay off BiPAP at daytime and only BiPAP at night acute on chronic respiratory failure with CO2 retention and combined metabolic and respiratory acidosis History of COPD CO 2 retention chronic respiratory failure Improved after BiPAP, nocuturnal study 12/[address] has ruled out PE, but likely has cor pulmonale, resulting in hepatic congestion and le edema BiPAP machine at home is broken, prescription has gave to case management, need to make sure patient new BiPAP machine arrived to home before discharge patient to home acute on chronic systolic and diastolic heart failure with recent LVEF 45%, stable improving, has good negative urine output Continue free water restriction to 1.5 L daily, continue Lasix, in the lower dose at 40 mg p.o. twice daily, the reason for now is because of metabolic alkalosis from high dose of Lasix Was having hypoglycemia, history of DM, glucose of 48.restarted Lantus at 4 unit subcu every 12 hours yesterday Supraventricular tachycardia: resolved after adenosine. Patient has a history of the same during her September 2017 admission. Schizoaffective disorder: Presently on Haldol, no longer on lithium (and [place] level undetectable here). - Continue Haldol. Obstructive sleep apnea: Apparently broken BiPAP machine case management to help providing replacement. Suspect seizure disorder: As noted during her hospitalization in September 2017. Continue keppra. HTN lisinopril, metoprolol Code status: DNR. DVT prophy: Lovenox. Continued [facility] stay due to: multiple IV medications needed Discharge planning: home
[2017-12-20 15:52] VITALS: BP 93/56; PULSE 82; TEMP 36.9; O2SAT 97
[2017-12-20 16:00] VITALS: O2SAT 97
[2017-12-20 16:14] VITALS: BP 177/96; PULSE 90; TEMP 37.2; O2SAT 94
[2017-12-20 17:47] VITALS: BP 126/73; PULSE 85; O2SAT 97
[2017-12-20] MEDS: HALOPERIDOL 0.5 MG TAB PO SCH (20:40)
[2017-12-20] MEDS: POTASSIUM CHLORIDE 20 MEQ TABCR PO SCH (20:58)
[2017-12-20 23:23] VITALS: BP 116/70; PULSE 83; TEMP 36.5; O2SAT 94
[2017-12-21] VITALS (7 sets, daily range): BP systolic 114–138; BP diastolic 74–85; PULSE 69–83; TEMP 36.7–36.9; O2SAT 93–100; Ht 160 cm; Wt 106.7 kg
[2017-12-21] MEDS: LACTULOSE SYRUP 10 GM/15 ML BTL 473 ML PO SCH ×5 (00:12→23:44)
[2017-12-21] MEDS: ONDANSETRON INJ 2 MG/ML 2 ML VIAL IV PRN ×2 (00:48→19:28)
[2017-12-21] MEDS: ACETAMINOPHEN 325 MG TAB PO PRN ×3 (02:08→17:51)
[2017-12-21] MEDS: BENZONATATE 100MG CAP PO SCH ×3 (06:27→21:35)
[2017-12-21] MEDS: SULFAMETHOXAZOLE/TRIMETHOPRIM DS 800/160MG TAB PO SCH ×2 (08:13→21:35)
[2017-12-21] MEDS: METOPROLOL SUCC 50MG EXT REL TAB PO SCH (08:13)
[2017-12-21] MEDS: POTASSIUM CHLORIDE 20 MEQ TABCR PO SCH ×2 (08:14→21:35)
[2017-12-21] MEDS: LISINOPRIL 5 MG TAB PO SCH (08:14)
[2017-12-21] MEDS: IPRATROPIUM BROMIDE/ALBUTEROL respimat INH INH SCH ×4 (08:15→21:32)
[2017-12-21] MEDS: MAGNESIUM OXIDE 400 MG TAB PO SCH ×2 (08:15→21:35)
[2017-12-21] MEDS: LEVETIRACETAM 250 MG TAB PO SCH ×2 (08:15→21:35)
[2017-12-21] MEDS: INSULIN ASPART 100 UNITS/ML 3 ML PEN SC SCH ×4 (08:26→21:40)
[2017-12-21] MEDS: INSULIN GLARGINE SOLOSTAR 100 UNITS/ML 3 ML PEN SQ SCH ×2 (08:27→21:41)
[2017-12-21] MEDS: FUROSEMIDE INJ 40 MG in SYRINGE 0 ML IV SCH ×2 (08:34→17:11)
[2017-12-21] MEDS: NYSTATIN POWDER 15GM BTL EXT SCH ×2 (08:36→21:31)
--- NOTE | 2017-12-21 13:45 | DIAGNOSTIC IMAGING REPORT ---
LIMITED ULTRASOUND FOR ASCITES EVALUATION CLINICAL HISTORY: Hepatic congestion. Possible ascites. COMPARISON STUDY: No previous studies for comparison. FINDINGS: Ultrasonic images from 4 quadrants are provided for interpretation. Note is made of cholelithiasis. There is mild to moderate ascites with the largest pockets being located within the lower quadrants. IMPRESSION: 1. Mild to moderate ascites Electronically signed by: Neri Spicer M.D. 12/21/2017 1:44 PM Dictated Date/Time: 12/21/2017 1:39 PM
--- NOTE | 2017-12-21 18:25 | Progress Note ---
Subjective Date of Service: Dec 21, 2017. Subjective this pt is pleasantly confused, I explained with her regarding the diagnosis of the ascites. I believe this is from cor pulmonale Problem List Medical Problems: (1) Acute CHF Status: Acute (2) Acute renal failure (ARF) Status: Acute (3) Change in mental status Status: Acute (4) CHF (congestive heart failure) Status: Acute (5) CHF (congestive heart failure) Status: Acute (6) CHF exacerbation Status: Acute (7) CO2 retention Status: Acute (8) Congestive heart failure (CHF) Status: Chronic (9) Dehydration Status: Acute (10) DKA (diabetic ketoacidoses) Status: Acute (11) Elevated lithium level Status: Acute (12) Elevated troponin Status: Acute (13) Extrapyramidal and movement disorder Status: Acute (14) Fall Status: Acute (15) Hyperammonemia Status: Acute (16) Hyperammonemia Status: Acute (17) Hyperammonemia Permanent Comment: Non cirrhotic hyperammonemia Status: Acute (18) Hyperammonemia Status: Acute (19) Hypercalcemia Status: Acute (20) Hypercarbia Status: Acute (21) Hypercarbia Status: Acute (22) Hypercarbia Status: Acute (23) Hyperglycemia Status: Acute (24) Hyperglycemia Status: Acute (25) Hyperglycemia without ketosis Status: Acute (26) Hyperkalemia Status: Acute (27) Hyperosmolality Status: Acute (28) Hypoglycemia Status: Acute (29) Hypokalemia Status: Acute (30) Hypokalemia Status: Acute (31) Hyponatremia Status: Acute (32) Hyponatremia Status: Acute (33) Hyponatremia Status: Acute (34) Hypoxia Status: Acute (35) Hypoxia Status: Acute (36) Left arm swelling Status: Acute (37) Lower extremity weakness Status: Acute (38) Renal insufficiency Status: Acute (39) Respiratory failure with hypoxia Status: Acute (40) Seizure Status: Acute (41) SOB (shortness of breath) Status: Acute (42) SVT (supraventricular tachycardia) Status: Acute (43) Systolic CHF, acute on chronic Status: Acute (44) Weakness Status: Acute Review of Systems Constitutional: No fever, No chills, No weakness, No fatigue Respiratory: No cough, No shortness of breath, No dyspnea on exertion Cardiac: No chest pain, No edema Abdomen: + pain, + constipation, + problem reported (distended), No nausea, No vomiting, No diarrhea Female : No dysuria, No urinary frequency Psychiatric: No depression symptoms, No anhedonism Objective Vital Signs Date Time Temp Pulse Resp B/P (MAP) Pulse Ox O2 Delivery O2 Flow Rate FiO2 12/21/17 17:10 138/85 (102) 12/21/17 16:00 97 Nasal Cannula 3.0 BiPAP 12/21/17 15:29 36.7 82 20 123/75 (91) 98 Nasal Cannula 3.0 12/21/17 08:00 100 Nasal Cannula 3.0 12/21/17 07:42 36.8 83 20 115/76 (89) 100 12/21/17 05:45 81 18 93 Nasal Cannula 3.0 12/21/17 00:00 Nasal Cannula 3.0 BiPAP 12/20/17 23:23 36.5 83 20 116/70 (85) 94 Nasal Cannula 3.0 Physical Exam General Appearance: WD/WN, + mild distress Eyes: normal inspection, sclerae normal Neck: supple, no JVD Respiratory/Chest: chest non-tender, lungs clear Cardiovascular: regular rate, rhythm Abdomen: normal bowel sounds, non tender, + distended Extremities: no pedal edema, no calf tenderness 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: alert, oriented x 3 Laboratory Results Last 24 Hours Test 12/20/17 20:25 12/21/17 07:28 12/21/17 07:31 12/21/17 11:10 Bedside Glucose 230 mg/dl 181 mg/dl 160 mg/dl Arterial Blood pH 7.33 Arterial Blood Partial Pressure CO2 90 mmHg Arterial Blood Partial Pressure O2 72 mm/Hg Arterial Blood HCO3 46 mmol/L Arterial Blood Oxygen Saturation 91.5 % Arterial Blood Base Excess 16.5 mEq/L Arterial Blood Gas Delivery 3L Christiano Test POS Test 12/21/17 16:32 Bedside Glucose 148 mg/dl Assessment and Plan 62-year-old female admitted on 10 December 2017 for acute on chronic diastolic and systolic CHF exacerbation, SVT with shortness of breath , was transferred to PCU because of acute mental status changes with significant CO2 retention which was improved on BiPAP, now transferred back to [facility], in process of arranging home Bipap PMH: Schizoaffective disorder, severe KORI, biventricular congestive heart failure, diabetes, HONK, hyponatremia, metabolic encephalopathy, acute renal failure, lithium toxicity, anemia., Multiple frequent admission hospital Acute on chronic mental status changes likely acute on chronic metabolic encephalopathy, combination of hepatic and metabolic encephalopathy resolved, will continue lactulose. patient will be okay off BiPAP at daytime and only BiPAP at night, we are having challenges with DME approval acute on chronic respiratory failure with CO2 retention and combined metabolic and respiratory acidosis History of COPD CO 2 retention chronic respiratory failure Improved after BiPAP, her am CO2 was 90 with pH of 7.[address] has ruled out PE, but likely has cor pulmonale, resulting in hepatic congestion and le edema BiPAP machine at home is broken, prescription has gave to case management, need to make sure patient new BiPAP machine arrived to home before discharge patient to home acute on chronic systolic and diastolic heart failure with recent LVEF 45%, stable improving, has good negative urine output Continue free water restriction to 1.5 L daily, continue Lasix, in the lower dose at 40 mg p.o. twice daily, She has developed ascites and will pursue diagnositic paracentesis, I did educate her 12/21 and will likely do this 12/22 Was having hypoglycemia, now resolved history of DM, glucose of 48.restarted Lantus at 4 unit subcu every 12 hours yesterday Supraventricular tachycardia: resolved after adenosine. Patient has a history of the same during her September 2017 admission. Schizoaffective disorder: Presently on Haldol, no longer on lithium (and [place] level undetectable here). - Continue Haldol. Obstructive sleep apnea: Apparently broken BiPAP machine case management to help providing replacement. Suspect seizure disorder: As noted during her hospitalization in September 2017. no clinically seen this stay Continue keppra. HTN lisinopril, metoprolol Code status: DNR. DVT prophy: Lovenox. Continued [facility] stay due to: multiple IV medications needed Discharge planning: home
[2017-12-21] MEDS: HALOPERIDOL 0.5 MG TAB PO SCH (21:34)
[2017-12-22 00:23] VITALS: PULSE 79; O2SAT 93
[2017-12-22] MEDS: ACETAMINOPHEN 325 MG TAB PO PRN ×4 (00:27→21:23)
[2017-12-22 02:04] VITALS: PULSE 74; O2SAT 92
[2017-12-22] MEDS: LACTULOSE SYRUP 10 GM/15 ML BTL 473 ML PO SCH ×4 (06:26→23:43)
[2017-12-22] MEDS: BENZONATATE 100MG CAP PO SCH ×3 (06:28→21:16)
[2017-12-22 07:18] VITALS: BP 111/74; PULSE 85; TEMP 36.4; O2SAT 93
[2017-12-22 08:03] VITALS: O2SAT 93
[2017-12-22 08:17] LABS: HEMATOCRIT 38.3 % (37-47); HEMOGLOBIN 10.5 g/dL (12.0-16.0); MEAN CELL VOLUME 99.2 fL (80-100); MEAN CORPUSCULAR HEMOGLOBIN 27.2 pg (25-34); MEAN CORPUSCULAR HGB CONC 27.4 g/dl (32-36); MEAN PLATELET VOLUME 10.7 fL (7.4-10.4); PLATELET COUNT 183 K/uL (130-400); RED CELL DISTRIBUTION WIDTH CV 19.6 % (11.5-14.5); WHITE BLOOD COUNT 5.17 K/uL (4.8-10.8)
[2017-12-22] MEDS: MAGNESIUM OXIDE 400 MG TAB PO SCH ×2 (08:22→21:17)
[2017-12-22] MEDS: SULFAMETHOXAZOLE/TRIMETHOPRIM DS 800/160MG TAB PO SCH ×2 (08:22→21:17)
[2017-12-22 08:23] LABS: CALCIUM 8.8 mg/dl (8.5-10.1); CREATININE 1.03 mg/dl (0.60-1.20)
[2017-12-22] MEDS: METOPROLOL SUCC 50MG EXT REL TAB PO SCH (08:23)
[2017-12-22] MEDS: IPRATROPIUM BROMIDE/ALBUTEROL respimat INH INH SCH ×4 (08:23→21:15)
[2017-12-22] MEDS: LEVETIRACETAM 250 MG TAB PO SCH ×2 (08:23→21:17)
[2017-12-22] MEDS: LISINOPRIL 5 MG TAB PO SCH (08:24)
[2017-12-22] MEDS: NYSTATIN POWDER 15GM BTL EXT SCH ×2 (08:24→21:18)
[2017-12-22] MEDS: FUROSEMIDE INJ 40 MG in SYRINGE 0 ML IV SCH ×2 (08:25→17:38)
[2017-12-22] MEDS: INSULIN ASPART 100 UNITS/ML 3 ML PEN SC SCH ×4 (08:26→21:22)
[2017-12-22] MEDS: INSULIN GLARGINE SOLOSTAR 100 UNITS/ML 3 ML PEN SQ SCH ×2 (08:27→21:21)
[2017-12-22] MEDS ORDERED: COUGH DROP (SUGAR FREE) LOZ 24 LOZ/1 BOX LOZ PRN (09:30)
--- NOTE | 2017-12-22 14:01 | DIAGNOSTIC IMAGING REPORT ---
PARACENTESIS UNDER ULTRASOUND GUIDANCE CLINICAL HISTORY: Ascites COMPARISON STUDY: No previous studies for comparison. FINDINGS: The risks, benefits, and alternatives to the procedure were discussed with the patient. Written informed consent was obtained. Following real-time ultrasound localization, the skin was prepped and draped. Following local anesthesia with Xylocaine, the sheath paracentesis needle was inserted and approximately 2.5 liters of straw-colored fluid was removed by vacuum suction. A left lower quadrant approach was utilized. The patient tolerated the procedure well and left the department in satisfactory condition. IMPRESSION: Successful ultrasound-guided paracentesis with removal of approximately 2.5 liters of ascitic fluid. Electronically signed by: Neri Spicer M.D. 12/22/2017 2:00 PM Dictated Date/Time: 12/22/2017 1:59 PM
[2017-12-22 15:35] VITALS: BP 101/61; PULSE 65; TEMP 37; O2SAT 98
--- NOTE | 2017-12-22 16:56 | Progress Note ---
Subjective Date of Service: Dec 22, 2017. Subjective pt was feeling well today we are still working on her home non invasive ventilation. She did have paracentesis Problem List Medical Problems: (1) Acute CHF Status: Acute (2) Acute renal failure (ARF) Status: Acute (3) Change in mental status Status: Acute (4) CHF (congestive heart failure) Status: Acute (5) CHF (congestive heart failure) Status: Acute (6) CHF exacerbation Status: Acute (7) CO2 retention Status: Acute (8) Congestive heart failure (CHF) Status: Chronic (9) Dehydration Status: Acute (10) DKA (diabetic ketoacidoses) Status: Acute (11) Elevated lithium level Status: Acute (12) Elevated troponin Status: Acute (13) Extrapyramidal and movement disorder Status: Acute (14) Fall Status: Acute (15) Hyperammonemia Status: Acute (16) Hyperammonemia Status: Acute (17) Hyperammonemia Permanent Comment: Non cirrhotic hyperammonemia Status: Acute (18) Hyperammonemia Status: Acute (19) Hypercalcemia Status: Acute (20) Hypercarbia Status: Acute (21) Hypercarbia Status: Acute (22) Hypercarbia Status: Acute (23) Hyperglycemia Status: Acute (24) Hyperglycemia Status: Acute (25) Hyperglycemia without ketosis Status: Acute (26) Hyperkalemia Status: Acute (27) Hyperosmolality Status: Acute (28) Hypoglycemia Status: Acute (29) Hypokalemia Status: Acute (30) Hypokalemia Status: Acute (31) Hyponatremia Status: Acute (32) Hyponatremia Status: Acute (33) Hyponatremia Status: Acute (34) Hypoxia Status: Acute (35) Hypoxia Status: Acute (36) Left arm swelling Status: Acute (37) Lower extremity weakness Status: Acute (38) Renal insufficiency Status: Acute (39) Respiratory failure with hypoxia Status: Acute (40) Seizure Status: Acute (41) SOB (shortness of breath) Status: Acute (42) SVT (supraventricular tachycardia) Status: Acute (43) Systolic CHF, acute on chronic Status: Acute (44) Weakness Status: Acute Review of Systems Constitutional: No fever, No chills, No weakness, No fatigue Respiratory: No cough, No shortness of breath Cardiac: + edema, No chest pain Abdomen: + problem reported (distension), No pain, No nausea, No vomiting, No diarrhea Musculoskeletal: No joint pain, No muscle pain Neurologic: No memory loss, No paralysis Psychiatric: No depression symptoms, No anxiety Objective Vital Signs Date Time Temp Pulse Resp B/P (MAP) Pulse Ox O2 Delivery O2 Flow Rate FiO2 12/22/17 07:18 36.4 85 20 111/74 (86) 93 12/22/17 02:04 74 92 2.0 12/22/17 00:23 79 93 2.0 12/22/17 00:00 BiPAP 12/21/17 22:53 36.9 69 20 114/74 (87) 98 Nasal Cannula 3.0 12/21/17 17:10 138/85 (102) 12/21/17 16:00 97 Nasal Cannula 3.0 BiPAP 12/21/17 15:29 36.7 82 20 123/75 (91) 98 Nasal Cannula 3.0 Physical Exam General Appearance: WD/WN, + mild distress, + obese Eyes: normal inspection, sclerae normal Respiratory/Chest: chest non-tender, + respiratory distress, + decreased breath sounds Cardiovascular: regular rate, rhythm, + systolic murmur Abdomen: soft, + distended, + pertinent finding (umbilical hernia) Extremities: normal range of motion, non-tender, + pedal edema, + swelling 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: alert, oriented x 3 Laboratory Results Last 24 Hours Test 12/21/17 11:10 12/21/17 16:32 12/21/17 20:16 12/22/17 07:49 Bedside Glucose 160 mg/dl 148 mg/dl 153 mg/dl White Blood Count 5.17 K/uL Red Blood Count 3.86 M/uL Hemoglobin 10.5 g/dL Hematocrit 38.3 % Mean Corpuscular Volume 99.2 fL Mean Corpuscular Hemoglobin 27.2 pg Mean Corpuscular Hemoglobin Concent 27.4 g/dl RDW Standard Deviation 71.0 fL RDW Coefficient of Variation 19.6 % Platelet Count 183 K/uL Mean Platelet Volume 10.7 fL Sodium Level 139 mmol/L Potassium Level 4.0 mmol/L Chloride Level 92 mmol/L Carbon Dioxide Level 49 mmol/L Anion Gap -2.0 mmol/L Blood Urea Nitrogen 5 mg/dl Creatinine 1.03 mg/dl Est Creatinine Clear Calc Drug Dose 67.3 ml/min Estimated GFR () 67.5 Estimated GFR (Non- 58.2 BUN/Creatinine Ratio 5.1 Random Glucose 114 mg/dl Calcium Level 8.8 mg/dl Assessment and Plan 62-year-old female admitted on 10 December 2017 for acute on chronic diastolic and systolic CHF exacerbation, SVT continues to show significant CO2 retention which was improved on BiPAP, now transferred back to [facility], in process of arranging home non invasive ventilation PMH: Schizoaffective disorder, severe KORI, biventricular congestive heart failure, diabetes, HONK, hyponatremia, metabolic encephalopathy, acute renal failure, lithium toxicity, anemia., Multiple frequent admission hospital Acute on chronic mental status changes likely acute on chronic metabolic encephalopathy, combination of hepatic and metabolic encephalopathy fully resolved, continue lactulose. patient will be okay off BiPAP at daytime and only BiPAP at night, we are having challenges with DME approval acute on chronic respiratory failure with CO2 retention and combined metabolic and respiratory acidosis History of COPD CO 2 retention chronic respiratory failure Improved after BiPAP, her am CO2 was 90 with pH of 7.[address] has ruled out PE, but likely has cor pulmonale, resulting in hepatic congestion and le edema BiPAP machine at home is broken, prescription has gave to case management, need to make sure patient new BiPAP machine arrived to home before discharge patient to home acute on chronic systolic and diastolic heart failure with recent LVEF 45%, stable improving, has good negative urine output Continue free water restriction to 1.5 L daily, continue Lasix, in the lower dose at 40 mg p.o. twice daily, She has developed ascites and diagnostic paracentesis, 12/22 with 2.5 liters of liquid removed Was having hypoglycemia, now resolved history of DM, glucose of 48.restarted Lantus at 4 unit subcu every 12 hours yesterday Supraventricular tachycardia: resolved after adenosine. Patient has a history of the same during her September 2017 admission. Schizoaffective disorder: Presently on Haldol, no longer on lithium (and [place] level undetectable here). - Continue Haldol. Obstructive sleep apnea: Apparently broken BiPAP machine case management to help providing replacement. Suspect seizure disorder: As noted during her hospitalization in September 2017. no clinically seen this stay Continue keppra. HTN lisinopril, metoprolol Code status: DNR. DVT prophy: Lovenox. Continued [facility] stay due to: multiple IV medications needed Discharge planning: home
[2017-12-22] MEDS: HALOPERIDOL 0.5 MG TAB PO SCH (21:16)
[2017-12-23] VITALS (8 sets, daily range): BP systolic 109–126; BP diastolic 55–71; PULSE 68–82; TEMP 36.4–36.9; O2SAT 90–100
[2017-12-23] MEDS: BENZONATATE 100MG CAP PO SCH ×3 (06:18→20:59)
[2017-12-23] MEDS: LACTULOSE SYRUP 10 GM/15 ML BTL 473 ML PO SCH ×3 (06:18→17:41)
[2017-12-23] MEDS: IPRATROPIUM BROMIDE/ALBUTEROL respimat INH INH SCH ×4 (07:38→21:02)
[2017-12-23] MEDS: ACETAMINOPHEN 325 MG TAB PO PRN ×3 (07:39→19:44)
[2017-12-23] MEDS: LEVETIRACETAM 250 MG TAB PO SCH ×2 (07:40→21:01)
[2017-12-23] MEDS: SULFAMETHOXAZOLE/TRIMETHOPRIM DS 800/160MG TAB PO SCH ×2 (07:40→21:01)
[2017-12-23] MEDS: MAGNESIUM OXIDE 400 MG TAB PO SCH ×2 (07:40→20:59)
[2017-12-23] MEDS: METOPROLOL SUCC 50MG EXT REL TAB PO SCH (07:40)
[2017-12-23] MEDS: LISINOPRIL 5 MG TAB PO SCH (07:41)
[2017-12-23] MEDS: NYSTATIN POWDER 15GM BTL EXT SCH ×2 (07:42→21:02)
[2017-12-23] MEDS: INSULIN ASPART 100 UNITS/ML 3 ML PEN SC SCH ×4 (08:48→21:06)
[2017-12-23] MEDS: FUROSEMIDE INJ 40 MG in SYRINGE 0 ML IV SCH ×2 (08:49→17:42)
[2017-12-23] MEDS: INSULIN GLARGINE SOLOSTAR 100 UNITS/ML 3 ML PEN SQ SCH ×2 (08:49→21:07)
[2017-12-23] MEDS: ONDANSETRON INJ 2 MG/ML 2 ML VIAL IV PRN (13:09)
--- NOTE | 2017-12-23 16:48 | Progress Note ---
Subjective Date of Service: Dec 23, 2017. Subjective this pt is doing well and has no additional complaints, is awaiting trilogy for non invasive ventilatin is at the bedside and updated Problem List Medical Problems: (1) Acute CHF Status: Acute (2) Acute renal failure (ARF) Status: Acute (3) Change in mental status Status: Acute (4) CHF (congestive heart failure) Status: Acute (5) CHF (congestive heart failure) Status: Acute (6) CHF exacerbation Status: Acute (7) CO2 retention Status: Acute (8) Congestive heart failure (CHF) Status: Chronic (9) Dehydration Status: Acute (10) DKA (diabetic ketoacidoses) Status: Acute (11) Elevated lithium level Status: Acute (12) Elevated troponin Status: Acute (13) Extrapyramidal and movement disorder Status: Acute (14) Fall Status: Acute (15) Hyperammonemia Status: Acute (16) Hyperammonemia Status: Acute (17) Hyperammonemia Permanent Comment: Non cirrhotic hyperammonemia Status: Acute (18) Hyperammonemia Status: Acute (19) Hypercalcemia Status: Acute (20) Hypercarbia Status: Acute (21) Hypercarbia Status: Acute (22) Hypercarbia Status: Acute (23) Hyperglycemia Status: Acute (24) Hyperglycemia Status: Acute (25) Hyperglycemia without ketosis Status: Acute (26) Hyperkalemia Status: Acute (27) Hyperosmolality Status: Acute (28) Hypoglycemia Status: Acute (29) Hypokalemia Status: Acute (30) Hypokalemia Status: Acute (31) Hyponatremia Status: Acute (32) Hyponatremia Status: Acute (33) Hyponatremia Status: Acute (34) Hypoxia Status: Acute (35) Hypoxia Status: Acute (36) Left arm swelling Status: Acute (37) Lower extremity weakness Status: Acute (38) Renal insufficiency Status: Acute (39) Respiratory failure with hypoxia Status: Acute (40) Seizure Status: Acute (41) SOB (shortness of breath) Status: Acute (42) SVT (supraventricular tachycardia) Status: Acute (43) Systolic CHF, acute on chronic Status: Acute (44) Weakness Status: Acute Review of Systems Constitutional: No fever, No chills, No weakness, No fatigue Respiratory: No cough, No shortness of breath Cardiac: No chest pain, No edema Abdomen: + pain, No nausea, No vomiting Musculoskeletal: No joint pain, No muscle pain Female : No dysuria, No hematuria, No incontinence Objective Vital Signs Date Time Temp Pulse Resp B/P (MAP) Pulse Ox O2 Delivery O2 Flow Rate FiO2 12/23/17 15:39 36.9 80 16 126/55 (78) 100 3.0 12/23/17 08:00 97 Nasal Cannula 3.0 12/23/17 06:51 36.4 73 20 109/71 (84) 97 Nasal Cannula 3.0 12/23/17 04:05 76 92 3.0 12/23/17 00:30 81 90 3.0 12/23/17 00:12 36.4 82 20 116/64 (81) 100 3.0 12/22/17 20:00 Nasal Cannula 3.0 BiPAP Physical Exam General Appearance: WD/WN, + mild distress, + obese Neck: supple, no JVD Respiratory/Chest: chest non-tender, lungs clear, normal breath sounds Cardiovascular: regular rate, rhythm, no murmur Abdomen: normal bowel sounds, soft Extremities: no pedal edema, no calf tenderness 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: alert, oriented x 3 Laboratory Results Last 24 Hours Test 12/22/17 20:10 12/23/17 07:43 12/23/17 11:36 Bedside Glucose 147 mg/dl 134 mg/dl 146 mg/dl Assessment and Plan 62-year-old female admitted on 10 December 2017 for acute on chronic diastolic and systolic CHF exacerbation, SVT continues to show significant CO2 retention which was improved on BiPAP, now transferred back to [facility], in process of arranging home non invasive ventilation PMH: Schizoaffective disorder, severe KORI, biventricular congestive heart failure, diabetes, HONK, hyponatremia, metabolic encephalopathy, acute renal failure, lithium toxicity, anemia., Multiple frequent admission hospital Acute on chronic mental status changes likely acute on chronic metabolic encephalopathy, combination of hepatic and metabolic encephalopathy fully resolved, continue lactulose. Pt has not been able to tolerate bipap but does benefit from non invasive ventiaation at night, without which she has elevated CO2 and acidemia in the am COPD / acute on chronic respiratory failure with CO2 retention and combined metabolic and respiratory acidosis History of COPD CO 2 retention chronic respiratory failure Improved after BiPAP, her am CO2 was 90 with pH of 7.[address] has ruled out PE, but likely has cor pulmonale, resulting in hepatic congestion and le edema BiPAP machine at home is broken, prescription has gave to case management, need to make sure patient new BiPAP machine arrived to home before discharge patient to home acute on chronic systolic and diastolic heart failure with recent LVEF 45%, stable improving, has good negative urine output Continue free water restriction to 1.5 L daily, continue Lasix, in the lower dose at 40 mg p.o. twice daily, She has developed ascites and diagnostic paracentesis, 12/22 with 2.5 liters of liquid removed Was having hypoglycemia, now resolved history of DM, glucose of 48.restarted Lantus at 4 unit subcu every 12 hours yesterday Supraventricular tachycardia: resolved after adenosine. Patient has a history of the same during her September 2017 admission. Schizoaffective disorder: Presently on Haldol, no longer on lithium (and [place] level undetectable here). - Continue Haldol. Obstructive sleep apnea: Apparently broken BiPAP machine case management to help providing replacement. Suspect seizure disorder: As noted during her hospitalization in September 2017. no clinically seen this stay Continue keppra. HTN lisinopril, metoprolol Code status: DNR. DVT prophy: Lovenox. Continued [facility] stay due to: multiple IV medications needed Discharge planning: home
[2017-12-23] MEDS: HALOPERIDOL 0.5 MG TAB PO SCH (20:59)
[2017-12-24] MEDS: LACTULOSE SYRUP 10 GM/15 ML BTL 473 ML PO SCH ×5 (01:17→22:34)
[2017-12-24] MEDS: ACETAMINOPHEN 325 MG TAB PO PRN ×4 (01:33→23:49)
[2017-12-24] MEDS: ONDANSETRON INJ 2 MG/ML 2 ML VIAL IV PRN ×2 (01:52→23:43)
[2017-12-24] MEDS ORDERED: MoRPHine SULFATE 2 MG/ML CARP IV STA (04:16)
[2017-12-24] MEDS: BENZONATATE 100MG CAP PO SCH (06:00)
[2017-12-24] MEDS: IPRATROPIUM BROMIDE/ALBUTEROL respimat INH INH SCH ×4 (07:58→22:36)
[2017-12-24] MEDS: NYSTATIN POWDER 15GM BTL EXT SCH ×2 (07:58→21:00)
[2017-12-24] MEDS: LEVETIRACETAM 250 MG TAB PO SCH ×2 (07:59→22:47)
[2017-12-24] MEDS: METOPROLOL SUCC 50MG EXT REL TAB PO SCH (07:59)
[2017-12-24] MEDS: SULFAMETHOXAZOLE/TRIMETHOPRIM DS 800/160MG TAB PO SCH ×2 (07:59→22:44)
[2017-12-24] MEDS: MAGNESIUM OXIDE 400 MG TAB PO SCH ×2 (07:59→22:44)
[2017-12-24 08:00] VITALS: O2SAT 97
[2017-12-24] MEDS: INSULIN GLARGINE SOLOSTAR 100 UNITS/ML 3 ML PEN SQ SCH ×2 (08:07→22:49)
[2017-12-24] MEDS: INSULIN ASPART 100 UNITS/ML 3 ML PEN SC SCH ×4 (08:07→21:00)
--- NOTE | 2017-12-24 08:12 | Progress Note ---
Subjective Date of Service: Dec 24, 2017. Subjective pt remains objectively in her usual state, c/o pain all over, not pleuritic, not exertional or exacerbated by movement, her is at the bedside and updated, we are awaiting decision of non invasive ventilator DME Problem List Medical Problems: (1) Acute CHF Status: Acute (2) Acute renal failure (ARF) Status: Acute (3) Change in mental status Status: Acute (4) CHF (congestive heart failure) Status: Acute (5) CHF (congestive heart failure) Status: Acute (6) CHF exacerbation Status: Acute (7) CO2 retention Status: Acute (8) Congestive heart failure (CHF) Status: Chronic (9) Dehydration Status: Acute (10) DKA (diabetic ketoacidoses) Status: Acute (11) Elevated lithium level Status: Acute (12) Elevated troponin Status: Acute (13) Extrapyramidal and movement disorder Status: Acute (14) Fall Status: Acute (15) Hyperammonemia Status: Acute (16) Hyperammonemia Status: Acute (17) Hyperammonemia Permanent Comment: Non cirrhotic hyperammonemia Status: Acute (18) Hyperammonemia Status: Acute (19) Hypercalcemia Status: Acute (20) Hypercarbia Status: Acute (21) Hypercarbia Status: Acute (22) Hypercarbia Status: Acute (23) Hyperglycemia Status: Acute (24) Hyperglycemia Status: Acute (25) Hyperglycemia without ketosis Status: Acute (26) Hyperkalemia Status: Acute (27) Hyperosmolality Status: Acute (28) Hypoglycemia Status: Acute (29) Hypokalemia Status: Acute (30) Hypokalemia Status: Acute (31) Hyponatremia Status: Acute (32) Hyponatremia Status: Acute (33) Hyponatremia Status: Acute (34) Hypoxia Status: Acute (35) Hypoxia Status: Acute (36) Left arm swelling Status: Acute (37) Lower extremity weakness Status: Acute (38) Renal insufficiency Status: Acute (39) Respiratory failure with hypoxia Status: Acute (40) Seizure Status: Acute (41) SOB (shortness of breath) Status: Acute (42) SVT (supraventricular tachycardia) Status: Acute (43) Systolic CHF, acute on chronic Status: Acute (44) Weakness Status: Acute Review of Systems Constitutional: + weakness, + fatigue, No fever, No chills Respiratory: No cough, No shortness of breath Cardiac: + edema, No chest pain Abdomen: No pain, No nausea, No vomiting Musculoskeletal: + joint pain, + muscle pain, + swelling Neurologic: + memory loss, + weakness, + balance problems Psychiatric: + problem reported (h/o schizophrenia), No depression symptoms, No anxiety Objective Vital Signs Date Time Temp Pulse Resp B/P (MAP) Pulse Ox O2 Delivery O2 Flow Rate FiO2 12/23/17 21:51 68 95 2.0 12/23/17 20:05 Nasal Cannula 3.0 12/23/17 16:00 97 Nasal Cannula 3.0 12/23/17 15:39 36.9 80 16 126/55 (78) 100 3.0 Physical Exam General Appearance: WD/WN, + mild distress Eyes: normal inspection, PERRL, EOMI, sclerae normal Neck: supple, no JVD Respiratory/Chest: chest non-tender, lungs clear, normal breath sounds Cardiovascular: regular rate, rhythm, no murmur Abdomen: + distended, + pertinent finding (umbilical hermia and abdominal wall ascites) Extremities: + pedal edema, + swelling 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: alert, oriented x 3 Laboratory Results Last 24 Hours Test 12/23/17 11:36 12/23/17 16:50 12/23/17 20:07 12/24/17 04:44 Bedside Glucose 146 mg/dl 120 mg/dl 146 mg/dl Test 12/24/17 07:32 Bedside Glucose 125 mg/dl Assessment and Plan 62-year-old female admitted on 10 December 2017 for acute on chronic diastolic and systolic CHF exacerbation, SVT continues to show significant CO2 retention which was improved on nocturnal non invasive venitlator, in process of arranging home non invasive ventilation PMH: Schizoaffective disorder, severe KORI, biventricular congestive heart failure, diabetes, HONK, hyponatremia, metabolic encephalopathy, acute renal failure, lithium toxicity, anemia., Multiple frequent admission hospital diffuse non specific pain, will try neurontin in case is diabetic neuropathy, Acute on chronic mental status changes likely acute on chronic metabolic encephalopathy, combination of hepatic and metabolic encephalopathy fully resolved, continue lactulose. Pt has not been able to tolerate bipap but does benefit from non invasive ventilation at night, without which she has elevated CO2 and acidemia in the am COPD / acute on chronic respiratory failure with CO2 retention and combined metabolic and respiratory acidosis History of COPD CO 2 retention chronic respiratory failure, this continues to be remonstrated on abg Improved after non invasive ventilation, her am CO2 was 90 with pH of 7.[address] has ruled out PE, but likely has cor pulmonale, resulting in hepatic congestion and le edema, transition to po lasix watching for hypokalemia acute on chronic systolic and diastolic heart failure with recent LVEF 45%, stable improving, has good negative urine output Continue free water restriction to 1.5 L daily, continue Lasix, in the lower dose at 40 mg p.o. twice daily, change to po 12/24 She has developed ascites from hepatic congestion but final fluid analysis is pending from diagnostic paracentesis, 12/22 with 2.5 liters of liquid removed Was having hypoglycemia, now resolved history of DM, glucose of 48.restarted Lantus at 4 unit subcu every 12 hours yesterday Supraventricular tachycardia: resolved after adenosine. Patient has a history of the same during her September 2017 admission. Schizoaffective disorder: Presently on Haldol, no longer on lithium (and [employer] level undetectable here). - Continue Haldol. states she is due for haldol deconate IM injection KORI impacts her underlying COPD and chronic respiratory failure Suspect seizure disorder: As noted during her hospitalization in September 2017. no clinically seen this stay Continue keppra. HTN lisinopril, metoprolol Code status: DNR. DVT prophy: Lovenox. Continued [facility] stay due to: multiple IV medications needed Discharge planning: home
[2017-12-24 09:10] LABS: HEMATOCRIT 35.2 % (37-47); HEMOGLOBIN 9.9 g/dL (12.0-16.0); MEAN CELL VOLUME 96.7 fL (80-100); MEAN CORPUSCULAR HEMOGLOBIN 27.2 pg (25-34); MEAN CORPUSCULAR HGB CONC 28.1 g/dl (32-36); MEAN PLATELET VOLUME 10.5 fL (7.4-10.4); PLATELET COUNT 159 K/uL (130-400); RED CELL DISTRIBUTION WIDTH CV 19.1 % (11.5-14.5); RED CELL DISTRIBUTION WIDTH SD 67.8 fL (36.4-46.3); WHITE BLOOD COUNT 4.72 K/uL (4.8-10.8)
[2017-12-24] MEDS: FUROSEMIDE INJ 40 MG in SYRINGE 0 ML IV SCH (09:10)
[2017-12-24] MEDS: LISINOPRIL 5 MG TAB PO SCH (09:10)
[2017-12-24 09:39] LABS: CALCIUM 8.6 mg/dl (8.5-10.1); CREATININE 1.02 mg/dl (0.60-1.20); POTASSIUM 3.5 mmol/L (3.5-5.1)
[2017-12-24] MEDS: GABAPENTIN 100 MG CAP PO SCH ×2 (15:04→22:47)
[2017-12-24 16:00] VITALS: O2SAT 97
[2017-12-24 16:15] VITALS: BP 119/70; PULSE 119; TEMP 36.9; O2SAT 95
[2017-12-24] MEDS: FUROSEMIDE 40 MG TAB PO SCH (16:51)
[2017-12-24 18:05] VITALS: PULSE 86
[2017-12-24 22:07] VITALS: PULSE 74; O2SAT 96
[2017-12-24] MEDS: HALOPERIDOL 0.5 MG TAB PO SCH (22:35)
[2017-12-24] MEDS: POTASSIUM CHLORIDE 20 MEQ TABCR PO SCH (22:46)
[2017-12-24 23:29] VITALS: BP 102/61; PULSE 83; TEMP 36.7; O2SAT 91
[2017-12-25 01:41] VITALS: PULSE 70; O2SAT 97
[2017-12-25] MEDS: LACTULOSE SYRUP 10 GM/15 ML BTL 473 ML PO SCH ×3 (05:54→17:07)
[2017-12-25] MEDS: ACETAMINOPHEN 325 MG TAB PO PRN ×3 (06:19→19:25)
[2017-12-25 07:30] VITALS: BP 108/61; PULSE 74; TEMP 36.7; O2SAT 100
[2017-12-25] MEDS: SULFAMETHOXAZOLE/TRIMETHOPRIM DS 800/160MG TAB PO SCH (07:48)
[2017-12-25] MEDS: POTASSIUM CHLORIDE 20 MEQ TABCR PO SCH ×2 (07:49→20:59)
[2017-12-25] MEDS: LEVETIRACETAM 250 MG TAB PO SCH ×2 (07:49→21:00)
[2017-12-25] MEDS: GABAPENTIN 100 MG CAP PO SCH ×2 (07:50→21:00)
[2017-12-25] MEDS: METOPROLOL SUCC 50MG EXT REL TAB PO SCH (07:50)
[2017-12-25] MEDS: LISINOPRIL 5 MG TAB PO SCH (07:51)
[2017-12-25] MEDS: IPRATROPIUM BROMIDE/ALBUTEROL respimat INH INH SCH ×4 (07:51→20:58)
[2017-12-25] MEDS: FUROSEMIDE 40 MG TAB PO SCH ×2 (07:52→17:07)
[2017-12-25] MEDS: MAGNESIUM OXIDE 400 MG TAB PO SCH ×2 (07:53→21:00)
[2017-12-25] MEDS: INSULIN ASPART 100 UNITS/ML 3 ML PEN SC SCH ×4 (08:01→21:00)
[2017-12-25] MEDS: INSULIN GLARGINE SOLOSTAR 100 UNITS/ML 3 ML PEN SQ SCH ×2 (08:01→21:02)
[2017-12-25] MEDS: NYSTATIN POWDER 15GM BTL EXT SCH ×2 (08:11→21:12)
--- NOTE | 2017-12-25 08:27 | Progress Note ---
Subjective Date of Service: Dec 25, 2017. Subjective this pt is doing "FAN TAS TIC" we are awaiting her trilogy decision for nocturnal non invasive ventilation based on significant CO2 retention seen on morning ABG Problem List Medical Problems: (1) Acute CHF Status: Acute (2) Acute renal failure (ARF) Status: Acute (3) Change in mental status Status: Acute (4) CHF (congestive heart failure) Status: Acute (5) CHF (congestive heart failure) Status: Acute (6) CHF exacerbation Status: Acute (7) CO2 retention Status: Acute (8) Congestive heart failure (CHF) Status: Chronic (9) Dehydration Status: Acute (10) DKA (diabetic ketoacidoses) Status: Acute (11) Elevated lithium level Status: Acute (12) Elevated troponin Status: Acute (13) Extrapyramidal and movement disorder Status: Acute (14) Fall Status: Acute (15) Hyperammonemia Status: Acute (16) Hyperammonemia Status: Acute (17) Hyperammonemia Permanent Comment: Non cirrhotic hyperammonemia Status: Acute (18) Hyperammonemia Status: Acute (19) Hypercalcemia Status: Acute (20) Hypercarbia Status: Acute (21) Hypercarbia Status: Acute (22) Hypercarbia Status: Acute (23) Hyperglycemia Status: Acute (24) Hyperglycemia Status: Acute (25) Hyperglycemia without ketosis Status: Acute (26) Hyperkalemia Status: Acute (27) Hyperosmolality Status: Acute (28) Hypoglycemia Status: Acute (29) Hypokalemia Status: Acute (30) Hypokalemia Status: Acute (31) Hyponatremia Status: Acute (32) Hyponatremia Status: Acute (33) Hyponatremia Status: Acute (34) Hypoxia Status: Acute (35) Hypoxia Status: Acute (36) Left arm swelling Status: Acute (37) Lower extremity weakness Status: Acute (38) Renal insufficiency Status: Acute (39) Respiratory failure with hypoxia Status: Acute (40) Seizure Status: Acute (41) SOB (shortness of breath) Status: Acute (42) SVT (supraventricular tachycardia) Status: Acute (43) Systolic CHF, acute on chronic Status: Acute (44) Weakness Status: Acute Review of Systems Constitutional: + weakness, + fatigue, No fever, No chills Respiratory: No cough, No shortness of breath Cardiac: + edema, No chest pain Abdomen: No pain, No nausea, No vomiting, No diarrhea Musculoskeletal: No joint pain, No muscle pain Female : No dysuria, No hematuria Neurologic: No memory loss, No paralysis Objective Vital Signs Date Time Temp Pulse Resp B/P (MAP) Pulse Ox O2 Delivery O2 Flow Rate FiO2 12/25/17 07:30 36.7 74 18 108/61 (77) 100 Nasal Cannula 2.0 12/25/17 01:41 70 97 2.0 12/25/17 00:05 Nasal Cannula 3.0 12/24/17 23:29 36.7 83 20 102/61 (75) 91 CPAP 12/24/17 22:07 74 96 2.0 12/24/17 18:05 86 12/24/17 16:15 36.9 119 18 119/70 (86) 95 Nasal Cannula 3.0 12/24/17 16:00 97 Nasal Cannula 3.0 Physical Exam General Appearance: WD/WN, + mild distress Eyes: normal inspection, sclerae normal Neck: supple, no JVD Respiratory/Chest: chest non-tender, lungs clear, normal breath sounds Cardiovascular: regular rate, rhythm, no murmur Abdomen: normal bowel sounds, + pertinent finding (distended and body wall edema with reduicble umbilical hernia) Extremities: + pedal edema, + swelling 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: alert, oriented x 3 Laboratory Results Last 24 Hours Test 12/24/17 08:40 12/24/17 11:36 12/24/17 16:43 12/24/17 20:11 White Blood Count 4.72 K/uL Red Blood Count 3.64 M/uL Hemoglobin 9.9 g/dL Hematocrit 35.2 % Mean Corpuscular Volume 96.7 fL Mean Corpuscular Hemoglobin 27.2 pg Mean Corpuscular Hemoglobin Concent 28.1 g/dl RDW Standard Deviation 67.8 fL RDW Coefficient of Variation 19.1 % Platelet Count 159 K/uL Mean Platelet Volume 10.5 fL Sodium Level 136 mmol/L Potassium Level 3.5 mmol/L Chloride Level 90 mmol/L Carbon Dioxide Level 43 mmol/L Anion Gap 3.0 mmol/L Blood Urea Nitrogen 8 mg/dl Creatinine 1.02 mg/dl Est Creatinine Clear Calc Drug Dose 66.9 ml/min Estimated GFR () 68.3 Estimated GFR (Non- 58.9 BUN/Creatinine Ratio 8.0 Random Glucose 155 mg/dl Calcium Level 8.6 mg/dl Bedside Glucose 177 mg/dl 115 mg/dl 135 mg/dl Test 12/25/17 07:47 Bedside Glucose 140 mg/dl Assessment and Plan 62-year-old female admitted on 10 December 2017 for acute on chronic diastolic and systolic CHF exacerbation, SVT continues to show significant CO2 retention which was improved on nocturnal non invasive ventilator, in process of arranging home non invasive ventilation based on significant CO2 retention seen on morning ABG PMH: Schizoaffective disorder, severe KORI, biventricular congestive heart failure, diabetes, HONK, hyponatremia, metabolic encephalopathy, acute renal failure, lithium toxicity, anemia., Multiple frequent admission hospital diffuse non specific pain, will try neurontin in case is diabetic neuropathy, Acute on chronic mental status changes likely acute on chronic metabolic encephalopathy, combination of hepatic and metabolic encephalopathy fully resolved, continue lactulose. Pt has not been able to tolerate bipap but does benefit from non invasive ventilation at night, without which she has elevated CO2 and acidemia in the am COPD / acute on chronic respiratory failure with CO2 retention and combined metabolic and respiratory acidosis History of COPD CO 2 retention chronic respiratory failure, this continues to be remonstrated on abg Improved after non invasive ventilation, her am CO2 was 90 with pH of 7.[address] has ruled out PE, but likely has cor pulmonale, resulting in hepatic congestion and le edema, transition to po lasix watching for hypokalemia acute on chronic systolic and diastolic heart failure with recent LVEF 45%, stable improving, has good negative urine output Continue free water restriction to 1.5 L daily, continue Lasix, in the lower dose at 40 mg p.o. twice daily, change to po 12/24 She has developed ascites from hepatic congestion but final fluid analysis is pending from diagnostic paracentesis, 12/22 with 2.5 liters of liquid removed, added daily spironolactone and reduced potassium Was having hypoglycemia, now resolved history of DM, glucose of 48.restarted Lantus at 4 unit subcu every 12 hours yesterday Supraventricular tachycardia: resolved after adenosine. Patient has a history of the same during her September 2017 admission. Schizoaffective disorder: Presently on Haldol, no longer on lithium (and [place] level undetectable here). - Continue Haldol. states she is due for haldol deconate IM injection KORI impacts her underlying COPD and chronic respiratory failure Suspect seizure disorder: As noted during her hospitalization in September 2017. no clinically seen this stay Continue karishma. HTN lisinopril, metoprolol Code status: DNR. DVT prophy: Lovenox. Continued [facility] stay due to: multiple IV medications needed Discharge planning: home
[2017-12-25] MEDS ORDERED: SPIRONOLACTONE 25 MG TAB PO ONE (10:45)
[2017-12-25] MEDS: HALOPERIDOL 0.5 MG TAB PO SCH (21:00)
[2017-12-25 23:05] VITALS: BP 106/68; PULSE 74; TEMP 36.9; O2SAT 98
[2017-12-25 23:30] VITALS: PULSE 70; O2SAT 93
[2017-12-26] MEDS: LACTULOSE SYRUP 10 GM/15 ML BTL 473 ML PO SCH ×3 (00:17→11:27)
[2017-12-26] MEDS: ACETAMINOPHEN 325 MG TAB PO PRN ×3 (01:27→13:24)
[2017-12-26 06:49] LABS: HEMATOCRIT 35.1 % (37-47); MEAN CELL VOLUME 97.2 fL (80-100); MEAN CORPUSCULAR HEMOGLOBIN 27.7 pg (25-34); MEAN CORPUSCULAR HGB CONC 28.5 g/dl (32-36); MEAN PLATELET VOLUME 10.9 fL (7.4-10.4); PLATELET COUNT 145 K/uL (130-400); RED CELL DISTRIBUTION WIDTH CV 19.1 % (11.5-14.5); RED CELL DISTRIBUTION WIDTH SD 68.5 fL (36.4-46.3); WHITE BLOOD COUNT 5.13 K/uL (4.8-10.8)
[2017-12-26 06:59] VITALS: BP 116/74; PULSE 80; TEMP 36.8; O2SAT 100
[2017-12-26 07:05] LABS: CALCIUM 8.9 mg/dl (8.5-10.1); CREATININE 1.04 mg/dl (0.60-1.20); POTASSIUM 4.5 mmol/L (3.5-5.1)
[2017-12-26] MEDS: FUROSEMIDE 40 MG TAB PO SCH (07:49)
[2017-12-26] MEDS: GABAPENTIN 100 MG CAP PO SCH (07:49)
[2017-12-26] MEDS: LISINOPRIL 5 MG TAB PO SCH (07:49)
[2017-12-26] MEDS: METOPROLOL SUCC 50MG EXT REL TAB PO SCH (07:50)
[2017-12-26] MEDS: LEVETIRACETAM 250 MG TAB PO SCH (07:50)
[2017-12-26] MEDS: MAGNESIUM OXIDE 400 MG TAB PO SCH (07:51)
[2017-12-26] MEDS: NYSTATIN POWDER 15GM BTL EXT SCH (07:51)
[2017-12-26] MEDS: HALOPERIDOL DECANOATE INJ 50 MG/ML VIAL IM ONE ×2 (07:51→08:48)
[2017-12-26] MEDS: INSULIN GLARGINE SOLOSTAR 100 UNITS/ML 3 ML PEN SQ SCH (07:54)
[2017-12-26] MEDS: INSULIN ASPART 100 UNITS/ML 3 ML PEN SC SCH ×2 (07:55→12:06)
[2017-12-26 08:00] VITALS: O2SAT 100
[2017-12-26] MEDS ORDERED: SPIRONOLACTONE 25 MG TAB PO SCH (09:00)
[2017-12-26] MEDS: POTASSIUM CHLORIDE 20 MEQ TABCR PO SCH (10:34)
[2017-12-26] MEDS: IPRATROPIUM BROMIDE/ALBUTEROL respimat INH INH SCH ×2 (10:34→12:35)
[2017-12-26] MEDS ORDERED: LACT10SO53 PO (12:43)
[2017-12-26] MEDS ORDERED: SPIR25TA6 PO (12:43)
[2017-12-26] MEDS ORDERED: LSX40 PO (12:43)
[2017-12-26] MEDS ORDERED: NRN100 PO (12:43)
[2017-12-26] MEDS ORDERED: INSDGIPEN SQ (12:43)
[2017-12-26] MEDS ORDERED: MCRK20 PO (12:43)
--- NOTE | 2017-12-26 12:43 | Discharge Instructions ---
Discharge Instructions Date of Service Dec 26, 2017. Admission Reason for Admission: Sob, Svt Discharge Discharge Diagnosis / Problem: acute on chronic diastolic and systolic CHF exacerbation Discharge Goals Goal(s): Decrease discomfort, Improve function, Increase independence, Improve disease control, Improve nutritional status, Learn about illness, Diagnostic testing, Therapeutic intervention, Prevent Disease Progression, Specific goals Activity Recommendations Activity Limitations: resume your previous activity . Instructions / Follow-Up Instructions / Follow-Up you have Acute on chronic mental status changes you are not been able to tolerate bipap b, you have trilogy set up at home, please use as instructed you have acute on chronic systolic and diastolic heart failure, need to continue free water restriction to 1.5 L daily, continue Lasix, in the lower dose at 40 mg p.o. twice daily, need to have BMP, mag checked in 3 days, report result to pcp you was having hypoglycemia, now resolved, Lantus at 4 unit subcu every 12 hours - you need to follow up with your primary care physician in 1 week, - take medication as instructed, never overdose or any misuse, or take with alcohol, because misuse of medicine may cause organ damage or , call me , or your primary care physician if have questions of discharge medicaitons. - call your primary care physician, or go to local emergency room if has any fever/chill, chest pain, shortness of breathing, nausea/vomiting/abdominal pain , facial droop/slurry speech/local weakness, or if has any questions. - fall precaution - diet as instructed Current Hospital Diet Patient's current hospital diet: AHA Diet (Heart Healthy), Low Sodium Diet (2gm Na), Diabetes Type 2 Diet Discharge Diet Recommended Diet: AHA Diet (Heart Healthy), Diabetes Type 2 Diet Fluid Restriction: 1500 ml (6 cups) Pending Studies Studies pending at discharge: no Laboratory Results Hemoglobin A1c Test 10/02/17 02:34 Range/Units Estimated Average Glucose 364 mg/dl Hemoglobin A1c 14.3 H 4.5-5.6 % Lipid Panel Test 10/02/17 02:34 Range/Units Triglycerides Level 82 0-150 mg/dl Cholesterol Level 69 0-200 mg/dl HDL Cholesterol 41 mg/dl Cholesterol/HDL Ratio 1.7 LDL Cholesterol, Calculated 12 mg/dl Medical Emergencies . Who to Call and When: Medical Emergencies: If at any time you feel your situation is an emergency, please call 911 immediately. . Non-Emergent Contact Non-Emergency issues call your: Primary Care Provider . . "Provider Documentation" section prepared by Pavan Obrien. .
[2017-12-26 15:24] VITALS: BP 111/63; PULSE 68; TEMP 36.6; O2SAT 98
--- NOTE | 2017-12-26 15:25 | Discharge Summary ---
Discharge Summary Date of Service Dec 26, 2017. Discharge Summary Admission Date: Dec 11, 2017 at 00:05 Discharge Date: Dec 26, 2017 Discharge Disposition: Home with services Principal Diagnosis: Acute on chronic mental status changes likely acute on chronic metabolic e Problems/Secondary Diagnoses: Acute on chronic mental status changes likely acute on chronic metabolic encephalopathy, COPD / acute on chronic respiratory failure with CO2 retention and combined metabolic and respiratory acidosis History of COPD CO 2 retention chronic respiratory failure, this continues to be remonstrated on abg acute on chronic systolic and diastolic heart failure with recent LVEF 45% Immunizations: Have You Had Influenza Vaccine: Unknown Influenza Vaccine Date: Sep 27, 2009 History of Tetanus Vaccine?: Unknown History of Pneumococcal: No Pneumococcal Date: Jun 28, 2007 History of Hepatitis B Vaccine: Unknown Procedures: No Consultations: No Medication Reconciliation New Medications: Furosemide (Furosemide) 40 Mg Tab 40 MG PO BID17 for 30 Days, TAB Gabapentin (Gabapentin) 100 Mg Cap 100 MG PO BID for 30 Days, #60 CAP Insulin Glargine (Lantus Solostar) 100 Unit/Ml Inj 4 UNITS SQ BID for 30 Days Lactulose (Chronulac) 10 Gm/15 Ml Syrp 45 GM PO Q6 for 30 Days Potassium Chloride (Klor-Con M20) 20 Meq Tabcr 80 MEQ PO QPM for 7 Days Spironolactone (Spironolactone) 25 Mg Tab 25 MG PO QAM for 30 Days, #30 TAB Continued Medications: Benzonatate (Tessalon Perles) 200 Mg Cap 200 MG PO Q8, CAP Cholecalciferol (Vitamin D3) 1,000 Unit Cap 1000 INTER.UNIT PO BID Haloperidol (Haldol) 0.5 Mg Tab 0.5 MG PO HS, TAB Haloperidol Decanoate (Haldol Decanoate 100) 100 Mg/Ml Inj 1 ML IM MONTHLY Insulin Aspart (Novolog) 100 Units/Ml Inj 0 SQ UD ONLY IF BS IS >180 Ipratropium-Albuterol (Combivent Respimat) 1 Aer Aer 1 PUFFS INH QID, INH Levetiracetam (Keppra) 250 Mg Tab 750 MG PO BID Lisinopril (Lisinopril) 5 Mg Tab 5 MG PO QAM Magnesium Oxide (Mag-Ox) 400 Mg Tab 400 MG PO BID Metoprolol Succinate (Toprol Xl) 50 Mg Tabcr 50 MG PO DAILY Nystatin (Nystop) 45 Appln/15 Gm Powd 1 APPLN TOP BID Polyethylene Glycol 3350 (Bulk (Polyethylene Glycol 3350) 1 Pow Pow 17 GM PO DAILY PRN for Constipation Potassium Chloride (K-Tabs) 10 Meq Tab 40 MEQ PO DAILY@1200 Discontinued Medications: Furosemide (Furosemide) 40 Mg Tab 40 MG PO QPM Furosemide (Furosemide) 80 Mg Tab 80 MG PO QAM Insulin Glargine (Lantus Solostar) 100 Unit/Ml Inj 14 UNITS SQ AMPM, PEN Lactulose (Chronulac) 10 Gm/15 Ml Syrp 30 GM PO TID Potassium Chloride (Micro-K Ext Rel) 10 Meq Capcr 160 MEQ PO QAM, CAP Potassium Chloride (Micro-K Ext Rel) 10 Meq Capcr 80 MEQ PO QPM, CAP Discharge Exam Up and walk with walker in the hallway for 2 laps, pleasant, conversational, Review of Systems: Constitutional: + weakness, + fatigue, No fever, No chills, No sweats, No weight loss, No problem reported Eyes: No worsening of vision, No eye pain, No redness, No discharge, No diplopia, No problem reported ENT: No hearing loss, No unusual epistaxis, No nasal symptoms, No sore throat, No tinnitus, No dental problems, No trouble swallowing, No problem reported Respiratory: + shortness of breath (Chronic and baseline) Cardiovascular: + edema, No chest pain, No orthopnea, No PND, No claudication, No palpitations, No problem reported Abdomen: No pain, No nausea, No vomiting, No diarrhea, No constipation, No GI bleeding, No problem reported Musculoskeletal: No joint pain, No muscle pain, No swelling, No calf pain, No problem reported Genitourinary - Female: No dysuria, No urinary frequency, No urinary urgency , No urinary incontinence, No urinary retention, No hematuria, No dysmenorrhea, No menorrhagia, No metrorrhagia, No rash, No vaginal bleeding, No vaginal discharge, No vaginal itching, No vulvodynia, No , No problem reported Neurologic: No memory loss, No paralysis, No weakness, No numbness/tingling , No vertigo, No balance problems, No problem reported Psychiatric: No depression symptoms, No anhedonism, No anxiety, No insomnia , No substance abuse, No problem reported Endocrine: No fatigue, No excessive thirst, No excessive urination, No problem reported Hematologic / Lymphatic: No abnormal bleeding/bruising, No clotting problems , No swollen lymph nodes, No night sweats, No problem reported Integumentary: No rash, No itch, No new/changing skin lesions, No color change, No bleeding, No problem reported Physical Exam: General Appearance: WD/WN, no apparent distress Eyes: normal inspection, PERRL, EOMI ENT: normal ENT inspection, hearing grossly normal Neck: supple, no adenopathy, thyroid normal Respiratory/Chest: chest non-tender, + decreased breath sounds, + wheezing ( Occasional) Cardiovascular: regular rate, rhythm, no gallop, no JVD, no murmur, + pertinent finding (2+ edema) Abdomen / GI: normal bowel sounds, non tender, soft, no organomegaly, no pulsatile mass Extremities: normal inspection, no calf tenderness, normal capillary refill 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: barometers calibrator II-XII nml as tested, no motor/sensory deficits , alert, normal mood/affect, normal reflexes, oriented x 3 Skin: normal color, warm/dry Hospital Course 62-year-old female admitted on 10 December 2017 for acute on chronic diastolic and systolic CHF exacerbation, SVT continues to show significant CO2 retention which was improved on nocturnal non invasive ventilator, in process of arranging home non invasive ventilation based on significant CO2 retention seen on morning ABG PMH: Schizoaffective disorder, severe KORI, biventricular congestive heart failure, diabetes, HONK, hyponatremia, metabolic encephalopathy, acute renal failure, lithium toxicity, anemia., Multiple frequent admission hospital diffuse non specific pain, trying neurontin in case is diabetic neuropathy, Acute on chronic mental status changes likely acute on chronic metabolic encephalopathy, combination of hepatic and metabolic encephalopathy fully resolved, continue lactulose. Encouraged and educated many times of medicine compliance especially lactulose Pt has not been able to tolerate bipap but does benefit from non invasive ventilation at night, without which she has elevated CO2 and acidemia in the am Has trilogy setting up at home COPD / acute on chronic respiratory failure with CO2 retention and combined metabolic and respiratory acidosis History of COPD CO 2 retention chronic respiratory failure, this continues to be remonstrated on abg Improved after non invasive ventilation, her am CO2 was 90 with pH of 7.[address] has ruled out PE, but likely has cor pulmonale, resulting in hepatic congestion and le edema, transition to po lasix watching for hypokalemia acute on chronic systolic and diastolic heart failure with recent LVEF 45%, stable improving, has good negative urine output Continue free water restriction to 1.5 L daily, continue Lasix, in the lower dose at 40 mg p.o. twice daily, change to po 12/24, has ordered BMP and back in 3 days after discharge, PCP please follow-up has developed ascites from hepatic congestion but final fluid analysis is pending from diagnostic paracentesis, 12/22 with 2.5 liters of liquid removed, added daily spironolactone and reduced potassium will continue Was having hypoglycemia, now resolved history of DM, glucose of 48.restarted Lantus at 4 unit subcu every 12 hours Supraventricular tachycardia: resolved after adenosine. Patient has a history of the same during her September 2017 admission. Schizoaffective disorder: Presently on Haldol, no longer on lithium (and [place] level undetectable here). - Continue Haldol. states she is due for haldol deconate IM injection KORI impacts her underlying COPD and chronic respiratory failure Suspect seizure disorder: As noted during her hospitalization in September 2017. no clinically seen this stay Continue keppra. HTN lisinopril, metoprolol Code status: DNR. DVT prophy: Lovenox. Patient is high risk of readmission, several time interaction with patient, patient's and other family members, discussed about medicine compliance Instructions / Follow-Up you have Acute on chronic mental status changes you are not been able to tolerate bipap b, you have trilogy set up at home, please use as instructed you have acute on chronic systolic and diastolic heart failure, need to continue free water restriction to 1.5 L daily, continue Lasix, in the lower dose at 40 mg p.o. twice daily, need to have BMP, mag checked in 3 days, report result to pcp you was having hypoglycemia, now resolved, Lantus at 4 unit subcu every 12 hours - you need to follow up with your primary care physician in 1 week, - take medication as instructed, never overdose or any misuse, or take with alcohol, because misuse of medicine may cause organ damage or , call me , or your primary care physician if have questions of discharge medicaitons. - call your primary care physician, or go to local emergency room if has any fever/chill, chest pain, shortness of breathing, nausea/vomiting/abdominal pain , facial droop/slurry speech/local weakness, or if has any questions. - fall precaution - diet as instructed Total Time Spent: Greater than 30 minutes This includes examination of the patient, discharge planning, medication reconciliation, and communication with other providers. Discharge Instructions Please refer to the electronic Patient Visit Report (Discharge Instructions) for additional information. Additional Copies To Bin Patel M.D.
== END 2017-12-26 16:38 | disposition home or self-care (01) | DRG 70 ==
LOC: EDBD 18:24 → C.EDA 18:26 → C.2T 12-11 00:05 → ENRESERV 12-11 00:09 → C.MED 12-12 14:16 → ENRESERV 12-13 15:45 → C.4E 12-13 16:18 → ENRESERV 12-15 17:00 → C.2E 12-15 17:44 → ENRESERV 12-18 13:08 → C.MS2W 12-18 14:24
PROVIDERS: ADMIT Hospitalist; ATTEND Hospitalist
DX: G93.41 Metabolic encephalopathy (principal); J96.20 Acute and chronic respiratory failure, unspecified whether with hypoxia or hypercapnia; I50.43 Acute on chronic combined systolic (congestive) and diastolic (congestive) heart failure; E87.2 Acidosis; E72.51 Non-ketotic hyperglycinemia; N17.9 Acute kidney failure, unspecified; R18.8 Other ascites; I47.1 Supraventricular tachycardia; J44.9 Chronic obstructive pulmonary disease, unspecified; F25.9 Schizoaffective disorder, unspecified; G47.33 Obstructive sleep apnea (adult) (pediatric); I27.81 Cor pulmonale (chronic); K76.1 Chronic passive congestion of liver; E11.649 Type 2 diabetes mellitus with hypoglycemia without coma; I11.0 Hypertensive heart disease with heart failure; G40.909 Epilepsy, unspecified, not intractable, without status epilepticus; Z66 Do not resuscitate; Z82.49 Family history of ischemic heart disease and other diseases of the circulatory system; Z79.4 Long term (current) use of insulin; Z88.0 Allergy status to penicillin; E11.40 Type 2 diabetes mellitus with diabetic neuropathy, unspecified